=== PATIENT | male | born 1955 | race Caucasian/White ===

== ENCOUNTER → 2020-11-01 15:56 | Outpatient (CLI) | payer MEDICARE, SELFPAY ==
[2020-11-01 17:34] LABS: Basophils % 0.5 % (0.1-2.0); Eosinophils # 0.2 K/mm3 (0.0-0.4); Eosinophils % 2.5 % (0.1-12.0); Hematocrit 41.7 % (42.0-52.0); Hemoglobin 13.5 g/dL (14.1-18.0); Lymphocytes # 2.2 K/mm3 (0.7-4.5); Lymphocytes % 32.1 % (10-50); Mean Corpuscular HGB Conc 32.4 g/dL (31.8-35.4); Mean Corpuscular Hemoglobin 31.1 pg (27.0-31.2); Mean Platelet Volume 8.5 fl (7.4-10.4); Monocytes # 0.6 K/mm3 (0.1-1.0); Monocytes % 9.1 % (1.7-9.3); Neutrophils # 3.9 K/mm3 (1.8-7.8); Neutrophils % 55.8 % (37.0-80.0); Platelet Count 415 K/mm3 (142-424); Red Blood Count 4.34 M/mm3 (4.60-6.20); Red Cell Distribution Width 12.9 % (11.5-17.5)
[2020-11-01 17:43] LABS: Chloride 104 mmol/L (98-107); Sodium 141 mmol/L (136-145)
[2020-11-01 17:44] LABS: Potassium 3.9 mmoL/L (3.5-5.1)
[2020-11-01 17:46] LABS: Alanine Aminotransferase 35 U/L (12-78); Albumin Level 4.3 g/dl (3.5-5.0); Albumin/Globulin Ratio 1.2 (1.1-1.8); Alkaline Phosphatase 59 U/L (38-126); Anion Gap 14.9 mEq/L (5-15); Aspartate Amino Transferase 40 U/L (17-59); Bilirubin,Total 0.4 mg/dl (0.2-1.3); Blood Urea Nitrogen 27 mg/dl (9-20); Carbon Dioxide 26 mmol/L (22.0-30.0); Estimated Glomerular Filt Rate 47 ml/min (>60); GFR (African American) 57 ML/MIN (>60); Globulin 3.7 g/dL (1.3-3.2)
[2020-11-01 17:47] LABS: Calcium 9.9 mg/dl (8.4-10.2); Glucose 129 mg/dl (74-100)
[2020-11-01 18:05] LABS: Coronavirus 19 IgG Antibody Positive (Negative); Coronavirus 19 IgM Antibody Negative (Negative)
== END ==
PROVIDERS: PCP Internal Medicine Adolescent Medicine; Visit Provider Internal Medicine Adolescent Medicine
DX: Z20.828 Contact with and (suspected) exposure to other viral communicable diseases (principal); Z86.19 Personal history of other infectious and parasitic diseases
CPT/HCPCS: 36415; 80053; 85025; 86328; U0003; U0004

== ENCOUNTER 2022-04-04 13:35 | Emergency (ER) | payer MEDICARE, SELFPAY ==
--- NOTE | 2022-04-04 13:50 | HMH.EDUTC ---
[facility] [place] Disposition Clinical Impression: Viral syndrome, Pharyngitis Disposition: Home, Self-Care Condition on Discharge: Good Instructions: DI for Pharyngitis/Tonsillopharyngitis -- Adult, DI for Viral Syndrome Additional Instructions: Drink plenty of fluids. Take tylenol or ibuprofen for pain or fever. Take the medications as directed. Follow up with your regular doctor. GO TO THE ER FOR ANY WORSENING SYMPTOMS Prescriptions: Amoxicillin [Amoxicillin 875MG Tab] 875 mg PO Q12H #20 tab Transmission Status: Received by [facility] Benzonatate [Benzonatate 100mg cap] 100 mg PO TIDP PRN #30 cap PRN Reason: Cough Transmission Status: Received by [facility] predniSONE [Prednisone 20mg Tab] 20 mg PO BID 3 Days #6 tab Transmission Status: Received by [facility] Referrals: Darius Ken MD [Primary Care Provider] - Time of Disposition: 14:10 Medical Decision Making - Medical Records Medical records reviewed: No: I reviewed the patient's medical records. - Matt Inquiry Pt receiving controlled substance: No Vital Signs: 04/04/22 13:54 04/04/22 14:14 Temperature 100.0 F H 99.9 F H Temperature Source Oral Oral Pulse Rate 83 Pulse Rate [Left Radial] 82 Respiratory Rate 19 19 Blood Pressure 115/75 Blood Pressure [Right Arm] 101/61 L Blood Pressure Mean [Right Arm] 74 02 Sat by Pulse Oximetry 95 - Lab Data Lab results reviewed: Yes: I reviewed the patient's lab results. Lab Results 04/04/22 13:52: Group A Strep Rapid Negative 04/04/22 13:52: Influenza Type A Ag Negative, Influenza Type B Ag Negative Orders (Tests/Meds): ORDERS Category Date Time Status Covid-19 Nasal PCR ([facility]) Routine Lab 04/04/22 14:18 Received Upper Respiratory Panel, PCR Stat Lab 04/04/22 14:18 Received Strep Screen Confirmation Stat Micro 04/04/22 13:52 Received [facility] [place] HPI - General Stated complaint: sore throat and body aches Time Seen by Provider: 04/04/22 13:50 - History of Present Illness Provider Complaint: He states that he has had a sore throat and body aches for the past 2 days. He was exposed to strep throat last week by his grand daughter having it. - Related Data Previous Rx's Medication Instructions Recorded Amoxicillin [Amoxicillin 875MG 875 mg PO Q12H #20 tab 04/04/22 Tab] Benzonatate [Benzonatate 100mg 100 mg PO TIDP PRN #30 cap 04/04/22 cap] predniSONE [Prednisone 20mg 20 mg PO BID 3 Days #6 tab 04/04/22 Tab] Allergies Allergy/AdvReac Type Severity Reaction Status Date / Time No Known Allergies Allergy Verified 04/04/22 13:59 [facility] History - Hepatitis A Screen Attestation statement:: This patient has been screened for Hepatitis A risk factors. I have reviewed the patient's past medical history: Yes ROS Obtained: Yes All systems reviewed & no additional complaints - Constitutional Constitutional: Reports body ache, Reports chills, Denies fever(s), Reports poor appetite, Reports malaise - Eyes Eyes: Denies eye discharge - ENT Ears, Nose, Mouth, and Throat: Reports as per HPI - Cardiovascular Cardiovascular: Denies chest pain - Respiratory Respiratory: Denies chest congestion, Denies cough, Denies dyspnea, Denies stridor, Denies wheezing - Gastrointestinal Gastrointestingal: Denies: abdominal pain, diarrhea, nausea, vomiting - Musculoskeletal Musculoskeletal: Denies joint pain - Integumentary/Breasts Skin/Breast: Denies rash Physical Exam - General General appearance: alert, in no apparent distress - Head Head exam: atraumatic, normocephalic, normal inspection - Eye Eye exam: Present: normal appearance, PERRL, EOMI - ENT ENT exam: Present: mucous membranes moist, normal external ear exam - Expanded ENT Exam TM/Canal exam: Bilateral TM: erythema, bulging Nose exam: Absent: sinus tenderness Nasal speculum exam: Bilateral: normal Th
[2022-04-04 13:54] VITALS: BP 101/61; PULSE 82; RESP 19; TEMP 37.8; O2SAT 95; BMI 25.7
[2022-04-04 14:02] LABS: UTC Influenza A Antigen Negative (Negative); UTC Influenza B Antigen Negative (Negative)
[2022-04-04 14:06] LABS: Strep Scrn Group A (Rapid) Negative (Negative)
[2022-04-04 14:14] VITALS: BP 115/75; PULSE 83; RESP 19; TEMP 37.7
[2022-04-04 14:40] LABS: Adenovirus,PCR Not Detected (NotDetected); Bordetella Pertussis Not Detected (NotDetected); Chlamydophila Pneumoniae, PCR Not Detected (NotDetected); Coronavirus 229E Not Detected (NotDetected); Coronavirus NL63 Not Detected (NotDetected); Coronavirus OC43 Not Detected (NotDetected); Coronovirus HKU1,PCR Not Detected (NotDetected); Human Metapneumovirus Not Detected (NotDetected); Influenza A, PCR Not Detected (NotDetected); Influenza AH1, 2009 Not Detected (NotDetected); Influenza AH1, PCR Not Detected (NotDetected); Influenza AH3,PCR Not Detected (NotDetected); Influenza B, PCR Not Detected (NotDetected); Mycoplasma Pneumoniae, PCR Not Detected (NotDetected); Parainfluenza 1, PCR Not Detected (NotDetected); Parainfluenza 2, PCR Not Detected (NotDetected); Parainfluenza 3, PCR Not Detected (NotDetected); Parainfluenza 4, PCR Not Detected (NotDetected); Respiratory Syncytial Virus Not Detected (NotDetected); Rhinovirus/Enterovirus Not Detected (NotDetected)
== END 2022-04-04 14:20 | disposition home or self-care (01) ==
PROVIDERS: Emergency Provider Nurse Practitioner Family; PCP Internal Medicine Adolescent Medicine
DX: U07.1 COVID-19 (principal); J02.9 Acute pharyngitis, unspecified; B34.9 Viral infection, unspecified; M79.10 Myalgia, unspecified site
CPT/HCPCS: 87430; 87486; 87581; 87632; 87798; 87804; 99213; C9803; G0463; U0003; U0005

== ENCOUNTER 2024-01-24 09:37 | Emergency (ER) | payer MEDICARE, SELFPAY ==
[2024-01-24 10:15] VITALS: BP 113/68; PULSE 57; RESP 22; TEMP 36.8; O2SAT 95; BMI 27.4
--- NOTE | 2024-01-24 10:36 | EXP.UTC ---
Discharge Plan Disposition Patient Disposition: Home, Self-Care Prescriptions Prescriptions: No Action bisoprolol fumarate 5 mg tablet 5 mg PO DAILY rosuvastatin 10 mg tablet 10 mg PO DAILY alfuzosin 10 mg tablet extended release 24 hr 10 mg PO DAILY Referrals Follow up/Referrals: Darius Ken MD [Primary Care Provider] - See instructions Activity Restrictions/Add. Instructions Additional Instructions/Restrictions: No sign of a bacterial infection. Likely viral. Viruses can take 7-14 days to run their course. Nasal saline and bulb syringe or nose Anika to remove nasal drainage to help with nasal congestion. Hard to eat, drink, sleep with nasal congestion so important to keep this cleaned out. Monitor temp. Tylenol or Motrin as needed for pain or fever Encourage fluids, water, Gatorade, Powerade, Pedialyte if infant/toddler/child Warm salt water gargles Warm fluids Sore throat lozenges Sleep elevated Humidifier/vaporizer Follow-up immediately for new or worsening symptoms or no noticeable improvement over the next 48-72 hours. Clinical Impressions Clinical Impression: Upper respiratory disease Instructions Patient Instructions: DI for Viral Upper Respiratory Infection -- Adult Discharge ED Provider: Clarissa ([facility])Lina [facility] HPI General Stated complaint: congestion, ear pain Mode of Arrival: Ambulatory Source of Information: Patient Limitations: No Limitations Time Seen by Provider: 01/24/24 10:36 Description of Symptoms (Recalled from Triage Doc. by RN): PATIENT C/O HOARSENESS, BODY ACHES, CONGESTION AND SORE THROAT X 3 DAYS HEENT Symptoms (Recalled from RN notes): Yes Resp Symptoms (Recalled from RN notes): No Skin Symptoms (Recalled from RN notes): No MS Symptoms (Recalled from RN notes): No Functional Status (Recalled from RN notes): WNL History of Present Illness Provider Complaint: 68 yrold male presents for hoarseness, sore throat, nasal congestion and body aches for 3 days after receiving the rsv vaccine on , denies fever Related Data Home Medications Medication Instructions Recorded Confirmed alfuzosin 10 mg tablet,extended 10 mg PO DAILY 01/24/24 01/24/24 release 24 hr bisoprolol fumarate 5 mg tablet 5 mg PO DAILY 01/24/24 01/24/24 rosuvastatin 10 mg tablet 10 mg PO DAILY 01/24/24 01/24/24 Allergies Allergy/AdvReac Type Severity Reaction Status Date / Time No Known Allergies Allergy Verified 04/04/22 13:59 Worker's Comp Is this a Worker's Comp case?: No [facility] Disclaimer: The information contained in this section may have been updated after the patient was seen, as this information can be updated by other users. 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) Smoking Status: Never smoker alcohol intake: never current occupational status: retired Travel in the last 8 weeks: None ROS Obtained: Yes All systems reviewed & no additional complaints except as documented Constitutional Constitutional: Reports system reviewed and no additional complaints, except as documented, Reports as per HPI, Reports body ache, Reports chills and Denies fever(s) Eyes Eyes: Reports system reviewed and no additional complaints, except as documented and Reports as per HPI ENT Ears, Nose, Mouth, and Throat: Reports system reviewed and no additional complaints, except as documented, Reports as per HPI, Reports nasal congestion, Reports nasal discharge, Reports sinus pain, Reports sinus pressure and Reports sore throat Cardiovascular Cardiovascular: Reports system reviewed and no additional complaints, except as documented Respiratory Respiratory: Reports system reviewed and no additional complaints, except as documented Gastrointestinal Gastrointestingal: Reports system reviewed and no additional complaints, except as documented Integumentary/Breasts Skin/Breast: Reports system reviewed and no additional complaints, except as documented Neurologic Neurologic: Reports system reviewed and no additional complaints, except as documented Endocrine Endocrine: Reports system reviewed and no additional complaints, except as documented Allergic/Immunologic Allergic/Immunologic: Reports system reviewed and no additional complaints, except as documented Physical Exam General General appearance: alert Head Head exam: atraumatic and normocephalic Eye Eye exam: Present normal appearance ENT ENT exam: Present normal exam, normal oropharynx, mucous membranes moist and TM's normal bilaterally Respiratory Respiratory exam: Present normal lung sounds bilaterally Cardiovascular Cardiovascular exam: Present regular rate and normal rhythm Neurological Exam Neurological exam: Present alert and oriented X3 Skin Skin exam: Present warm and intact Medical Decision Making Medical Records Medical records reviewed: Yes I reviewed the patient's medical records. Matt Inquiry Pt receiving controlled substance: No Matt was queried for this patient: No Vital Signs: 01/24/24 10:15 Temperature 98.3 F Temperature Source Oral Pulse Rate [Right] 57 L Respiratory Rate 22 Blood Pressure [Left Arm] 113/68 Blood Pressure Mean [Left Arm] 83 02 Sat by Pulse Oximetry 95 Oxygen Delivery Method Room Air Lab Data Lab results reviewed: Yes I reviewed the patient's lab results.
[2024-01-24 10:40] VITALS: BP 113/68; PULSE 57; RESP 22; TEMP 36.8; O2SAT 95
[2024-01-24 10:46] LABS: UTC Strep Screen (Rapid) Negative (Negative)
[2024-01-24 10:57] LABS: Adenovirus,PCR Not Detected (NotDetected); Coronavirus 19, PCR Not Detected (NotDetected); Coronavirus 229E Not Detected (NotDetected); Coronavirus NL63 Not Detected (NotDetected); Coronavirus OC43 Not Detected (NotDetected); Coronovirus HKU1,PCR Not Detected (NotDetected); Human Metapneumovirus Not Detected (NotDetected); Influenza A, PCR Not Detected (NotDetected); Influenza AH1, 2009 Not Detected (NotDetected); Influenza AH1, PCR Not Detected (NotDetected); Influenza AH3,PCR Not Detected (NotDetected); Influenza B, PCR Not Detected (NotDetected); Parainfluenza 1, PCR Not Detected (NotDetected); Parainfluenza 2, PCR Not Detected (NotDetected); Parainfluenza 3, PCR Not Detected (NotDetected); Parainfluenza 4, PCR Not Detected (NotDetected); Respiratory Syncytial Virus Not Detected (NotDetected); Rhinovirus/Enterovirus Not Detected (NotDetected)
== END 2024-01-24 10:44 | disposition home or self-care (01) ==
PROVIDERS: Emergency Provider Nurse Practitioner Family; PCP Internal Medicine Adolescent Medicine
DX: J06.9 Acute upper respiratory infection, unspecified (principal); J02.9 Acute pharyngitis, unspecified; R09.81 Nasal congestion; E78.5 Hyperlipidemia, unspecified; I10 Essential (primary) hypertension
CPT/HCPCS: 87632; 87635; 87880; 99212; 99214; G0463

== ENCOUNTER 2024-05-11 10:22 | Outpatient (POV) | payer MEDICARE, SELFPAY | END 2024-05-11 23:59 | disposition home or self-care (01) | LOC: SC 10:22 | PROVIDERS: PCP Internal Medicine Adolescent Medicine; Visit Provider Dermatology | DX: Z00.00 Encounter for general adult medical examination without abnormal findings (principal) ==

== ENCOUNTER 2024-12-28 12:25 | Outpatient (CLI) | payer MEDICARE, SELFPAY ==
--- NOTE | 2024-12-28 12:49 | US_ITS ---
FINAL REPORT TECHNIQUE: Ultrasound images of the kidneys and bladder were obtained. CLINICAL HISTORY: STAGE 3 CHRONIC KIDNEY DISEASE FINDINGS: The right kidney measures 11.2cm in length. It is normal in echogenicity. There is no hydronephrosis. There is a 1 cm cortical cyst. The left kidney measures 10.9 cm in length. It is normal in echogenicity. There is no hydronephrosis. The urinary bladder is unremarkable. IMPRESSION: Right renal cyst. Reviewed, Interpreted and Dictated by Arlyn Fabian MD Transcribed by Darleen Batres Authenticated and [facility]
[2024-12-28 12:58] LABS: Hematocrit 42.9 % (42.0-52.0); Hemoglobin 13.9 g/dL (14.1-18.0); Mean Corpuscular HGB Conc 32.4 g/dL (31.8-35.4); Mean Corpuscular Hemoglobin 30.2 pg (27.0-31.2); Mean Corpuscular Volume 93.3 fl (80-94); Platelet Count 293 K/mm3 (142-424); Red Cell Distribution Width 12.4 % (11.5-17.5); White Blood Count 7.3 K/mm3 (4.8-10.8)
[2024-12-28 13:23] LABS: Albumin Level 4.4 g/dl (3.5-5.0); Anion Gap 8.7 mEq/L (5-15); Blood Urea Nitrogen 26 mg/dl (9-20); Calcium 9.9 mg/dl (8.4-10.2); Carbon Dioxide 28 mmol/L (22.0-30.0); Chloride 107 mmol/L (98-107); Estimated Glomerular Filt Rate 55 ml/min (>60); GFR (African American) 66 ML/MIN (>60); Glucose 111 mg/dl (74-100); Phosphorous 3.5 mg/dl (2.5-4.5); Potassium 4.7 mmoL/L (3.5-5.1); Sodium 139 mmol/L (136-145)
[2024-12-28 13:35] LABS: Intact Parathyroid Hormone 41.7 pg/mL (7.5-53.5)
[2024-12-28 13:41] LABS: 25-OH Vitamin D, Total 41.5 ng/mL (30-100)
[2024-12-28 14:23] LABS: Microalbumin/Creatinine Ratio 17.4
[2024-12-28 14:33] LABS: Creatinine,Urine Random 263 mg/dL (Not Estab.)
== END 2024-12-28 23:59 | disposition home or self-care (01) ==
LOC: RAD 12:26
PROVIDERS: PCP Internal Medicine Adolescent Medicine; Visit Provider Internal Medicine Nephrology
DX: N18.31 Chronic kidney disease, stage 3a (principal); N28.1 Cyst of kidney, acquired
CPT/HCPCS: 36415; 76770; 80069; 82043; 82306; 82570; 83970; 84156; 85027

== ENCOUNTER 2025-06-17 08:16 | Day surgery (SDC) | payer MEDICARE, SELFPAY ==
[2025-06-16 11:09] VITALS: BMI 26.7
--- NOTE | 2025-06-17 07:53 | P.HP_ITS ---
HPI HPI HPI: Patient presents for colonoscopy. He is a 69-year-old male whom I have seen in the past for laparoscopic appendectomy in 2017. He is referred now by Dr. Darius Ken's office for upper endoscopy. He states that he has had numerous symptoms. He has had symptoms of some dyspepsia and possibly GERD for quite some time usually treated [id number] with Mylanta or Pepto-Bismol. However, recently over about the past month his symptoms have been somewhat refractory to this. He also describes overactive stomach with increased burping and gurgling sensation. He states that he has some dysphagia and feels like food gets stuck but there is likely no food present. No particularly worse gay ds. PFSH [facility] Disclaimer: The information contained in this section may have been updated after the patient was seen, as this information can be updated by other users. Medical History Hyperlipidemia Hypertension Surgical History History of colonoscopy Family History (Updated 06/16/25 @ 11:08 by Ariadna Paz RN) No significant family history Social History (Updated 06/16/25 @ 11:08 by Ariadna Paz RN) Smoking Status: Never smoker alcohol intake: never current occupational status: retired Travel in the last 8 weeks?: None Other Medical History Have you received the Pneumonia Vaccine: Yes Review of Systems Review of Systems Review of systems:: pertinent systems reviewed and negative unless documented below Meds Home Medications and Allergies Home Medications ?Medication ?Instructions ?Recorded ?Confirmed ?Type alfuzosin 10 mg tablet,extended 10 mg PO DAILY 4 06/16/25 History release 24 hr bisoprolol fumarate 5 mg tablet 5 mg PO DAILY 01/24/24 06/16/25 History rosuvastatin 10 mg tablet 10 mg PO DAILY 01/24/2406/03 History New Prescriptions to Start Prescriptions: Allergies Allergy/AdvReac Type Severity Reaction Status Date / Time No Known Allergies Allergy Verified 06/02/25 09:27 Exam Data for Last 24 hours I & O for Last 24 hours: Intake & Output 06/14/25 06/15/25 06/16/25 06/17/25 11:59 11:59 11:59 11:59 Weight 203 lb Constitutional Constitutional: no acute distress *Routine HEENT Exam Head: Present normocephalic Eye: Present EOMI and PERRL ENT: Present mucous membranes moist *Routine Neck Exam Neck: Present supple; Absent lymphadenopathy *Routine Respiratory Exam Respiratory: Present CTA bilaterally *Routine Cardiovascular Exam Cardiovascular: Present RRR *Routine Abdominal Exam Abdominal: Present soft and normoactive bowel sounds; Absent tenderness *Routine Rectal Exam Rectal:: deferred *Routine Genitalia Exam Genitalia:: deferred *Routine Extremities Exam Extremities: Absent cyanosis, clubbing or edema *Routine Skin Exam Skin: Present warm; Absent rash *Routine Neurological Exam Neurological: Present alert and oriented X3 Assessment and Plan *Assessment and plan (1) Dysphagia: Status: Acute Category: Medical Code(s): R13.10 - Dysphagia, unspecified Plan Plan to proceed with upper endoscopy with biopsies and possible dilatation if indicated.
[2025-06-17 08:44] VITALS: BP 140/80; PULSE 54; RESP 18; TEMP 36.4; O2SAT 98
--- NOTE | 2025-06-17 09:05 | P.PNANES_ITS ---
[facility] Disclaimer: The information contained in this section may have been updated after the patient was seen, as this information can be updated by other users. Medical History Hyperlipidemia Hypertension Surgical History History of colonoscopy Family History Other No significant family history Social History Smoking Status: Never smoker alcohol intake: never substance use type: denies use current occupational status: retired Travel in the last 8 weeks?: None [facility] Anesthesia Checklist Patient Identification Patient Identification: Verbal (Name & ) Structural Data Admitted From: Home Planned Operative Procedure/s: egd Consent for Planned Operative Procedure(s) Verified: Yes NPO Status Verified Time NPO: 00:00 Airway Assessment Mallampati Score:: Class II C-Spine Mobility Assessed: Yes TMJ Mobility Assessed: Yes Dentition: Good Dentition Neurological Assessment Level of Consciousness: Awake, Alert and Appropriate Anesthesia Plan Anesthesia Risk discussed: Yes Anesthesia Plan: Verified ASA Class: II Anesthesia Type: MAC
--- NOTE | 2025-06-17 10:23 | HMH.SCOPE ---
Procedure: Date: 06/17/25 Patient Date of :: 1955 Procedure Performed:: Esophagogastroduodenoscopy with biopsies Indications:: Patient presents for upper endoscopy. He is a 69-year-old male whom I have seen in the past for laparoscopic appendectomy in 2017. He is referred now by Dr. Darius Ken's office for upper endoscopy. He states that he has had numerous symptoms. He has had symptoms of some dyspepsia and possibly GERD for quite some time usually treated [id number] with Mylanta or Pepto-Bismol. However, recently over about the past month his symptoms have been somewhat refractory to this. He also describes overactive stomach with increased burping and gurgling sensation. He states that he has some dysphagia and feels like food gets stuck but there is likely no food present. No particularly worse foods. Plan was made to proceed with upper endoscopy with biopsies and possible dilatation expeditiously. Performing Provider:: Mal Ibarra MD Referring Provider:: Darius Ken MD Sedation:: MAC sedation Procedure:: Patient history was obtained and appropriate physical examination was performed. Patient's medications and allergies were reviewed. Informed consent was obtained after explaining the benefits, alternatives, and risks of the procedure including, but not limited to, bleeding, perforation, missed lesions, and adverse reaction to anesthesia medications. Patient was transported to endoscopy procedure room. Patient was connected to monitoring devices. Throughout the procedure the patient's blood pressure, pulse, and oxygen saturations were monitored continuously. Patient identification and planned procedure were verified by the staff. Patient was positioned in lateral decubitus position. Olympus endoscope was inserted via the oropharynx. Esophagus was cannulated. There was some minor tortuosity. In the distal esophagus fungating circumferential mass was encountered at the GE junction extending approximately from 38 cm to 46 cm to the gastric cardia. This was fungating, friable, and easily bled. The endoscope was able to be advanced beyond this and into the gastric lumen. Retroflexion was performed which revealed no evidence of any appreciable hiatal hernia. He had some diffuse nonerosive moderate gastritis characterized by erythema and induration. There were multiple gastric polyps consistent with fundic gland polyps. Endoscope was advanced through the pylorus and into the proximal duodenum which appeared unremarkable. It was withdrawn into the gastric lumen. Gastric antral biopsy was obtained and biopsy was obtained of presumed fundic gland polyp. Endoscope was withdrawn into the distal esophagus. Multiple biopsies were obtained using cold biopsy forceps of the mass. This was friable, fungating, and easily bled. There appeared to be good hemostasis once the biopsies were performed. Endoscope was withdrawn. . Findings:: Circumferential fungating friable mass in the distal esophagus between 38 cm and 46 cm Diffuse moderate nonerosive gastropathy/gastritis Multiple fundic gland polyps Recommendations:: Follow-up on histopathology and treat appropriately Complications:: None immediately apparent Estimated blood obtained (mL): 3 Colonoscopy Component Colonoscopy Component Was a colonoscopy performed during today's procedure?: No
[2025-06-17 10:35] VITALS: BP 112/71; PULSE 58; RESP 16; TEMP 36.1; O2SAT 98
[2025-06-17 10:36] VITALS: BP 121/73; PULSE 59; RESP 18; O2SAT 98
[2025-06-17 10:46] VITALS: BP 113/42; PULSE 57; RESP 16; O2SAT 96
[2025-06-17 10:56] VITALS: BP 114/60; PULSE 55; RESP 18; TEMP 36.1; O2SAT 97
== END 2025-06-17 10:56 | disposition home or self-care (01) ==
PROVIDERS: PCP Internal Medicine Adolescent Medicine; Visit Provider Surgery
PROC: 0DJ08ZZ Inspection of Upper Intestinal Tract, Via Natural or Artificial Opening Endoscopic (ICD-10-PCS; CPT 43239; principal; 2025-06-17 09:30)
DX: C16.0 Malignant neoplasm of cardia (principal); K31.7 Polyp of stomach and duodenum; K29.70 Gastritis, unspecified, without bleeding; I10 Essential (primary) hypertension; E78.5 Hyperlipidemia, unspecified; Z79.899 Other long term (current) drug therapy
CPT/HCPCS: 43239; J2003; J2704

== ENCOUNTER 2025-08-13 04:55 | Emergency (ER) | payer MEDICARE, SELFPAY ==
--- OUTSIDE RECORDS SUMMARY | 2025-07-06 14:45 | XMS_ITS | Encounter Summary ---
Author Organization [facility] Address 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 Procedures PET/CT FDG Skull Base To Mid Thigh Kim Machado MD [address] [address] Phone: tel: fax: Referral ID Status Reason Start Date Expiration Date Visits Re quested Visits Authorized [id number] Closed 07/06/2025 01/05/2027 2 2 * Consultation (Routine) - Closed Specialty Diagnoses / Procedures Referred By Broderick olivares Referred To Contact Medical Oncology / Oncology Diagnoses 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 Kim Machado MD [address] [address] Phone: tel: fax: [facility] [address] [place] [address] Phone: tel: fax: Referral ID Status Reason Start Date Expiration Date V isits Requested Visits Authorized [id number] Closed Specialty Services Required 07/06/2025 01/05/2027 1 1 Reason for Visit * Reason Comments New Patient Encounter Details Date Type Department Care Team ([facility] st Contact Info) Description 07/06/2025 2:45 PM EDT Office Visit [facility] [address] [place] [address] Kim Machado MD [address] [place] [address] 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 [facility] Department of Surgery Section of Thoracic Surgery [...] elects to work with oncology services in [place] to unify aspects of surgical and medical [...] saw and evaluated the patient with the medical/WEIGHT COUNT OPERATOR/PA student. I discussed the case with the medical/WEIGHT COUNT OPERATOR/PA student and agree with the findings and [...] oncology at his request. Kim Marcano MD avionic technician Thoracic Surgery documented in this encounter Plan of Treatment Upcoming Encounters Date Type Department Care Team (Latest Contact Info) Description 08/18/2025 8:20 AM EDT Clinical Support [facility] [address] [place] [address] 08/18/2025 10:30 AM EDT Appointment [facility] [address] [place] [address] 08/20/2025 2:00 PM EDT Appointment [facility] [address] [place] [address] 09/01/2025 9:15 AM EDT Clinical Support [facility] [address] [place] [address] 09/01/2025 9:30 AM EDT Office Visit [facility] [address] [place] [address] Aristides Reina MD [address] [place] [address] 09/01/2025 11:00 AM EDT Appointment [facility] [address] [place] [address] 09/03/2025 10:30 AM EDT Appointment [facility] 2 [address] [place] [address] 09/15/2025 9:30 AM EST Appointment [facility] [address] [place] [address] 09/17/2025 9:00 AM EST Appointment [facility] [address] [place] [address] 10/05/2025 8:00 AM EST Appointment [facility] PET Scan [address] [place] [address] 10/05/2025 9:00 AM EST Appointment [facility] PET Scan [address] [place] [address] 10/05/2025 11:15 AM EST Office Visit [facility] [address] [facility] [place] [address] Kim Machado MD [address] [place] [address] 01/13/2026 12:00 PM EST Office Visit [facility] [address] [place] [address] Eros Mejia MD [address] [place] [address] Scheduled Referrals Name Type Priority [...] raised. PET/CT scanner: Nicol 550. PET/CT acquisition: [id number]-zng-[id number]. Standardized uptake value (SUV): Corrected for body weight only. CT: Low-dose, [id number], without intravenous contrast. TOTAL DLP (Dose Length [...] lytic or sclerotic lesions within the imaged [id number]. Multilevel degenerative changes. Procedure Note Quoc Pratt [...] raised. PET/CT scanner: Nicol 550. PET/CT acquisition: [id number]-jk-igs-thighs. Standardized uptake value (SUV): Corrected for body weight only. CT: Low-dose, [id number]-kvil, without intravenous contrast. TOTAL DLP (Dose Length [...] max 3.5 without definite large lymph nodes ([id number] image 450) No suspicious metabolically active pulmonary [...] difficult to evaluate because of under distention. ([id number] image 390). SUV max 29.7. Prostate gland [...] osseous lytic orsclerotic lesions within the imaged [id number]. Multilevel degenerative changes. IMPRESSION: *Intense radiotracer activity [...] documented as of this encounter Care Teams Social Service Worker Relationship Specialty Start Date End Date Darius Ken MD [address] [place] [address] PCP - General Internal Medicine 08/23/24 documented as of this encounter
--- OUTSIDE RECORDS SUMMARY | 2025-07-21 10:00 | XMS_ITS | Encounter Summary ---
Author Organization Healthcare Address [address] 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 Kim Machado MD [address] [facility] [address] [place] [phone] Phone: tel: fax: [facility] [address] [facility], [address]nd [place] [address] Phone: tel: fax: Referral ID Status Reason Start Date Expiration Date V isits Requested Visits Authorized [id number] Closed Specialty Services Required 07/06/2025 01/05/2027 1 1 Encounter Details Date Type Department Care Team (Latest Contact Info) Description 07/21/2025 10:00 AM EDT Office Visit [facility] [address] [place] [phone] Aristides Reina MD [address] [place], [place] [id number] 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) Social History Tobacco Use Types Packs/Day Years Used Date Smoking Tobacco: Never Smokeless Tobacco: Never Tobacco Cessation:Counseling Given: Not Answered Alcohol Use Standard Drinks/Week Comments Never 0 [...] Sign Reading Time Taken Comments Blood Pressure 130/78 07/21/2025 9:37 AM EDT Pulse 51 07/21/2025 9:37 AM EDT Temperature 36.6 C (97.9 F) 07/21/2025 9:37 AM EDT Respiratory Rate 16 07/21/2025 9:37 AM EDT Oxygen Saturation 96% 07/21/2025 9:37 AM EDT Inhaled Oxygen Concentration - - Weight 92.8 kg (204 lb 9.4 oz) 07/21/2025 9:37 A M EDT Height 185.4 cm (6' 1 ) 07/21/2025 9:37 AM EDT Body Mass Index 26.99 07/21/2025 9:37 AM EDT documented in this encounter Miscellaneous Notes * Progress Notes - Aristides Reina MD - 07/21/2025 10:00 AM EDT Images from the original note were not included. Oncology Clinic Initial Visit Patient Name: Justin Best Date of : 1955 Referring Physician:Kim Machado MD [address] [address] Encounter Date: 07/21/2025 Chief Complaint: Establish care regarding recently diagnosed GEJ adenocarcinoma History of present illness: Mr. Best is a 69-year-old male with a relevant past medical history of hypertension who presents to [facility] clinic today to establish care for recently diagnosed GE junction adenocarcinoma. According to patient, he has had a multiyear history of generalized upper gastrointestinal discomfort mainly inv olving diffuse, dull pain in his upper abdomen. Over the past several months, he endorses a globus sensation. The progression of his dysphagia prompted further workup with EGD on 06/17/2025 which was completed and notable for a circumferential fungating friable mass in the distal esophagus between 38and 46 cm with diffuse moderate nonerosive gastropathy/gastritis and multiple fundic gland polyps. 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 No H pylori identified. Fundic gland polyp appreciated. IHC negative for HER2/miladys. PD-L1 CPS less than 1. CLDN A18 positive. Loss of MLH1 and PMS2 nuclear immuno reaction (MLH1 promoter methylation study pending). Past Medical History: Reviewed by me; any relevant updates made in [facility]. Relevant history includes: Past Medical History[1] Oncologic History: Oncology History No history exists. Past Surgical History: Reviewed by me; any relevant updates made in [facility]. Relevant history includes: Surgical History[2] Family History: Reviewed by me; any relevant updates made in [facility]. Relevant history includes: Family History[3] Father with colon cancer Social History: Social History Socioeconomic History Marital status: Spouse name: Not on file Number of children: Not on file Years of education: Not on file Highest education level: Not on file Occupational History Not on file Tobacco Use Smoking status: Never Smokeless tobacco: Never Substance and Sexual Activity Alcohol use: Never Drug use: Never Sexual activity: Defer Other Topics Concern Not on file Social History Narrative Not on file Social Drivers of Health Financial Resource Strain: Not on file Food Insecurity: Not on file Transportation Needs: Not on file Physical Activity: Not on file Stress: Not on file Social Connections: Unknown (08/19/2023) Received from [facility] Family and Community Support Help with Day-to-Day Activities: Not on file Lonely or Isolated: Not on file Intimate Partner Violence: Unknown (08/19/2023) Received from [facility] Abuse Screen Unsafe at Home or Work/School: Not on file Feels Threatened by Someone?: Not on file Does Anyone Keep You from Contacting Others or Doint Things Outside the Home?: Not on file Physical Sign of Abuse Present: Not on file Housing Stability: Unknown (08/19/2023) Received from [facility] Housing Stability Current Living Arrangements: Not on file Potentially Unsafe Housing Conditions: Not on file Lives 45 minutes away Allergies reviewed in EMR; any changes noted in Epic. Medications Current Medications[4] Review of Systems: Review of Systems 14 point ROS negative besides as mentioned in HPI Objective There were no vitals filed for this visit. Physical Exam Gen: NAD, well appearing and nontoxic. Alert and conversant. Eyes: No scleral icterus, normal conjunctivae HENT: Hearing normal, dentition normal. Mucus membranes are moist. Neck: supple, normal ROM. Lymph: no cervical or supraclav lymphadenopathy. CV: RRR, no murmurs, no peripheral edema. Resp: effort normal, CTAB GI: Abdomen is soft, nondistended, and nontender. MSK: No clubbing or cyanosis. Normal muscle tone. Skin: Warm, dry, no rash, no erythema, not diaphoretic, no pallor Neuro: No gross neurologic deficits. Psych: A&O x3, mood and affect normal, judgment and insight appear normal. Labs, Imaging, Pathology: Reviewed in [facility] and/or Care everywhere, notable as discussed in Assessment and Plan. 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 No H pylori identified. Fundic gland polyp appreciated. IHC negative for HER2/miladys. PD-L1CPS less than 1. CLDN A18 positive. Loss of MLH1 and PMS2 nuclear immuno reaction (MLH1 promoter methylation study pending). PET/CT (Scheduled for 07/27/2025) Performance Status 0: Fully active, able to carry on all pre-disease performance without restriction Assessment and Plan Assessment/Plan Mr. Best is a 69-year-old male with a relevant past medical history of hypertension who presents to [facility] clinic for evaluation and management of recently diagnosed GE junction adenocarcinoma. Co-managed with Dr. Kim Marcano with thoracic surgery. 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 Pylori negative NGS pending Treatment: None to date Treatment related complications: NA Performance Status: ECO Plan: Discussed with patient the implication of his diagnosis including prognosis, available treatment modalities, role for possible surigcal intervention, and logistics of dewey(adjuvant) treatment and surveillance Staging PET/CT ordered for 07/27/2025 Based on PS, patient is medically fit for potential surgical intervention Will plan to initiate neoadjuvant Fluorouracil, leucovorin, oxaliplatin, docetaxel, and durvalumab (FLOT-D). Consent obtained at visit today. If there is no evidence of metastatic disease on PET/CT - Dosing and scheduling as follows: Durvalumab 1500 mg IV D1 5-FU 2600 mg/m^2 IV continuous over 24 hours on D1 and D15 Leucovorin 200 mg/m^2 IV on D1 and D15 Oxaliplatin 85 mg/m^2 on D1 and D15 Docetaxel 50 mg/m^2 on D1 and D15 Cycled every 28 days Will complete 2 cycles preoperatively Then plan for esophagectomy Then complete 2 cycles postoperatively Followed by Durvalumab 1500 mg IV on D1 every 4 weeks for 10 additional cycles Will refer to surgical oncology for chemoport insertion. Port planned for 07/29/2025 NGS to be sent from surgical path specimen to direct any targeted therapies Continue to follow with Dr. Marcano in thoracic surgery RTC prior to C1D15 if no metastatic disease on PET/CT or COURTNEY if metastatic disease for planning 2.) VTE risk assessment Khorana score at least 2 (gastric tumor): 2 points (intermediate risk) If pre-chemo PLT >350,000, Hg < 10, or WBC > 11,000 patient would be high-risk for VTE andmay benefit from prophylactic anticoagulation 3.) High risk for malnutrition Given location of patient's lesion and associated symptoms, patient is a high risk for calorie deficit and malnutrition Currently meeting caloric needs Plan: Will consult nutrition in the future if problems arise Discussed potential need for G-tube if unable to tolerate oral intake Encouraged patient to use dietary supplements (boost, ensure, etc) Clinical Rationale: Decision to add durvalumab to SOC FLOT for neoadjuvant GEJ adenocarcinoma has been established in the Perioperative Durvalumab in Gastric and GEJ Cancer AKA MATTERHOYAHAIRA trial published April 10 2025. A total of 474 participants were randomly assigned to the durvalumab group, and 474 to the placebo group (median follow-up, 31.5 months; interquartile range, 26.7 to 36.6). Two-year event-free survival (Paez-Darell estimate) was 67.4% among the participants in the durvalumab group and 58.5% among those in the placebo group (hazard ratio for event or , 0.71; 95% confidence interval [CI], 0.58to 0.86; P<0.001). Two- year overall survival was 75.7% in the durvalumab group and 70.4% in the placebo group (piecewise hazard ratio for during months 0 to 12, 0.99 [95% CI, 0.70 to 1.39], and during the period from month 12 onward, 0.67 [95% CI, 0.50 to 0.90]; P=0.03 by a stratified log-rank test [exceeding the significance threshold of P<0.0001]). The percentage of participants with a pathological complete response was 19.2% in the durvalumab group and 7.2% in the placebo group (relative risk, 2.69 [95% CI, 1.86 to 3.90]). Adverse events with a maximum grade of 3 or 4 were reported in 340 participants (71.6%) in the durvalumab group and in 334 (71.2%) in the placebo group. The percentage of participants with delayed surgery was 10.1% and 10.8%, respectively, and the percentage with delayed initiation of adjuvant treatment was 2.3% and 4.6%. Case discussed with Dr. Que Gentile, who was involved in the formulation of the plan above. Aristides Reina MD PGY-4 Fellow, Hematology/Oncology [facility] Pager: [phone] [1] Past Medical History: Diagnosis Date Blood urine 2023 Hypertension 1999 Kidney stone Skin cancer 2004 [2] Past Surgical History: Procedure Laterality Date APPENDECTOMY 2020 BACK SURGERY 2001 CHOLECYSTECTOMY 1985 GALLBLADDER SURGERY 1998 [3] Family History Problem Relation Name Age of Onset Cancer Father [4] Current Outpatient Medications: alfuzosin (Uroxatral) 10 MG 24 hr tablet, Take 1 tablet (10 mg) by mouth 1 (one) time each day., Disp: , Rfl: bisoprolol (Zebeta) 5 MG tablet, Take 1 tablet (5 mg) by mouth 1 (one) time each day. Patient states half a tablet daily., Disp: , Rfl: Famotidine (PEPCID PO), , Disp: , Rfl: Multiple Vitamin (multivitamin) capsule, Take 1 capsule by mouth 1 (one) time each day., Disp: , Rfl: rosuvastatin (Crestor) 10 MG tablet, Take 1 tablet (10 mg) by mouth 1 (one) time each day., Disp: ,Rfl: Cosigned by Que Gentile MD at 07/22/2025 9:09 AM EDT Associated attestation - Que Gentile MD - 07/22/2025 9:09 AM EDT I saw and evaluated the patient with the resident/fellow. I discussed the case with the resident/fellow and agree with the findings and plan as documented. * Progress Notes - Zuri Angeles PharmD - 07/21/2025 10:00 AM EDT Pharmacy Hematology/Oncology Patient Education Note I counseled the patient on their chemotherapy regimen, which was scheduled to start TBD after PET for final staging. The chemotherapy agents that this patient is scheduled to receive include: FLOT-D (Fluorouracil, Leucovorin, Oxaliplatin, Docetaxel, Durvalumab). I provided the patient with a written explanation of the drugs contained in the regimen and their expected side effects, toxicities, andadverse reactions, such as but not limited to myelosuppression, infection risk, nausea/vomiting, cold induced neuropathy, alopecia, edema, rash, diarrhea, pneumonitis, hepatitis, nephritis, fatigue and nausea/vomiting. I provided verbal explanation of the same material and provided methods for self- monitoring. I answered all questions that the patient and/or caregiver had. The patient and/or caregiver demonstrated understanding of the material, and wished to proceed with the treatment. Zuri Angeles PharmD, [facility] Clinical Oncology Pharmacist documented in this encounter Plan of Treatment Upcoming Encounters Date Type Department Care Team (Latest Contact Info) Description 08/18/2025 8:20 AM EDT Clinical Support [facility] Mult[facility] Oncology [facility] [address] [place] [phone] 08/18/2025 10:30 AM EDT Appointment [facility] [address] [place] [address] 08/20/2025 2:00 PM EDT Appointment [facility] [address] [place] [address] 09/01/2025 9:15 AM EDT Clinical Support [facility] [address] [place] [address] 09/01/2025 9:30 AM EDT Office Visit [facility] [address] [place] [address] Aristides Reina MD [address] [place] [address] 09/01/2025 11:00 AM EDT Appointment [facility] [address] [place] [address] 09/03/2025 10:30 AM EDT Appointment [facility] 2 [address] [place] [address] 09/15/2025 9:30 AM EST Appointment [facility] [address] [place] [address] 09/17/2025 9:00 AM EST Appointment [facility] [address] [place] [address] 10/05/2025 8:00 AM EST Appointment [facility] PET Scan [address] [place] [address] 10/05/2025 9:00 AM EST Appointment [facility] PET Scan [address] [place] [address] 10/05/2025 11:15 AM EST Office Visit [facility] [address] [facility]nd [place] [address] Kim Machado MD [address] [place] [address] 01/13/2026 12:00 PM EST Office Visit [facility] [address] [place] [address] Eros Mejia MD [address] [place] [phone] Scheduled Orders Name Type Priority Associated Diagnoses Orde r Schedule CBC and differential Lab Routine Adenocarcinoma of gastroesophageal junction (CMS/HCC) Expected: 08/18/2025, Expires: 08/18/2026 Comprehensive metabolic panel Lab Routine Adenocarcinoma of gastroesophageal junction (CMS/HCC) Expected: 08/18/2025, Expires: 08/18/2026 documented as of this encounter Procedures Procedure Name Priority Date/Time Associated Diagnosis Comments APTT Routine 07/21/2025 10:45 AM EDT Adenocarcinoma of gastroesophageal junction (CMS/HCC) PROTHROMBIN TIME(PT) / INR Routine 07/21/2025 10:45 AM EDT Adenocarcinoma of gastroesophageal junction (CMS/HCC) CBC WITH AUTO DIFFERENTIAL Routine 07/21/2025 10:45 AM EDT Adenocarcinoma of gastroesophageal junction (CMS/HCC) MAGNESIUM, PLASMA STAT 07/21/2025 10: 45 AM EDT Adenocarcinoma of gastroesophageal junction (CMS/HCC) COMPREHENSIVE METABOLIC PANEL, PLASMA Routine 07/21/2025 10:45 AM EDT Adenocarcinoma of gastroesophageal junction (CMS/HCC) documented in this encounter Results * (ABNORMAL) TSH Reflex FT4 (08/03/2025 8:02 AM EDT) Thyroid Stimulating Hormone, Plasma 0.34(L) 0.40 - 4.20 uIU/mL 08/03/2025 8:51 AM EDT [facility] Blood Blood sample taken from central line / Unknown (Port) Long-term Catheter / Unknown 08/03/2025 8:02 AM EDT 08/03/2025 8:13 AM EDT us Que Gentile MD LAB BLOOD ORDERABLES Final R esult [facility] [address] [place] [address] * (ABNORMAL) Comprehensive metabolic panel (08/03/2025 8:02 AM EDT) Glucose, Plasma 143(H) 74 - 99 mg/dL 08/03/2025 8:51 AM EDT [facility] BUN, Plasma 22 8 - 23 mg/dL 08/03/2025 8:51 AM EDT [facility] Creatinine, Plasma 1.23(H) 0.70 - 1.20 mg/dL 08/03/2025 8:51 AM EDT [facility] BUN/Creatinine Ratio 18 08/03/2025 8:51 AM EDT [facility] Sodium, Plasma 139 136 - 145 mmol/L 08/03/2025 8:51 AM EDT [facility] Potassium, Plasma 4.0 3.6 - 4.9 mmol/L 08/03/2025 8:51 AM EDT [facility] Chloride, Plasma 106 97 - 107 mmol/L 08/03/2025 8:51 AM EDT [facility] CO2, Plasma 21(L) 22 - 29 mmol/L 08/03/2025 8:51 AM EDT [facility] Anion Gap 12 6 - 16 mmol/L 08/03/2025 8:51 AM EDT [facility] Total Calcium, Plasma 9.5 8.9 - 10.2 mg/dL 08/03/2025 8:51 AM EDT [facility] Total Protein 7.1 6.3 - 7.9 g/dL 08/03/2025 8:51 AM EDT [facility] Albumin, Plasma 3.9 3.5 - 5.2 g/dL 08/03/2025 8:51 AM EDT [facility] AST, Plasma 20 10 - 50 U/L 08/03/2025 8:51 AM EDT [facility] ALT, Plasma 26 10 - 50 U/L 08/03/2025 8:51 AM EDT [facility] Alkaline Phosphatase, Plasma 63 40 - 115 U/L 08/03/2025 8:51 AM EDT [facility] Total Bilirubin, Plasma 0.4 0.2 - 1.1 mg/dL 08/03/2025 8:51 AM EDT [facility] eGFRcr 63.2 mL/min/1.7 3m*2 08/03/2025 8:51 AM EDT [facility] Comment:Reported eGFRcr in m L/min/1.73m2 is based the CKD-EPI 2020 equation that does not use a race coefficient. Blood Blood sample taken from central line / Unknown (Port) Long-term Catheter / Unknown 08/03/2025 8:02 AM EDT 08/03/2025 8:13 AM EDT us Que Gentile MD LAB BLOOD ORDERABLES Final R esult [facility] [address] [place] [address] * (ABNORMAL) CBC and differential (08/03/2025 8:02 AM EDT) WBC Count 12.63(H) 3.70 - 10.30 10*3/uL LAB HEMATOLOGY METHOD 08/03/2025 8:29 AM EDT [facility] RBC Count 4.24(L) 4.60 - 6.10 10*6/uL LAB HEMATOLOGY METHOD 08/03/2025 8:29 AM EDT [facility] HGB 13.0(L) 13.7 - 17.5 g/dL LAB HEMATOLOGY METHOD 08/03/2025 8:29 AM EDT [facility] HCT 38.7(L) 40.0 - 51.0 % LAB HEMATOLOGY METHOD 08/03/2025 8:29 AM EDT [facility] Platelet Count 326 155 - 369 10*3/uL LAB HEMATOLOGY METHOD 08/03/2025 8:29 AM EDT [facility] MCV 91 79 - 98 fL LAB HEMATOLOGY METHOD 08/03/2025 8:29 AM EDT [facility] MCH 30.7 26.0 - 32.0 pg LAB HEMATOLOGY METHOD 08/03/2025 8:29 AM EDT [facility] MCHC 33.6 30.7 - 35.5 g/dL LAB HEMATOLOGY METHOD 08/03/2025 8:29 AM EDT [facility] RDW 11.9 11.5 - 14.5 % LAB HEMATOLOGY METHOD 08/03/2025 8:29 AM EDT [facility] MPV 10.6 8.8 - 12.5 fL LAB HEMATOLOGY METHOD 08/03/2025 8:29 AM EDT [facility] nRBC 0.0 <=0.0 per 100 WBCs LAB HEMATOLOGY METHOD 08/03/2025 8:29 AM EDT [facility] Differential Type Automated LAB HEMATOLOGY METHOD 08/03/2025 8:29 AM EDT [facility] Neutrophils % 92 % LAB HEMATOLOGY METHOD 08/03/2025 8:29 AM EDT [facility] Lymphocytes % 6 % LAB HEMATOLOGY METHOD 08/03/2025 8:29 AM EDT [facility] Monocytes % 2 % LAB HEMATOLOGY METHOD 08/03/2025 8:29 AM EDT [facility] Eosinophils % 0 % LAB HEMATOLOGY METHOD 08/03/2025 8:29 AM EDT [facility] Basophils % 0 % LAB HEMATOLOGY METHOD 08/03/2025 8:29 AM EDT [facility] Immature Granulocytes % 0 % LAB HEMATOLOGY METHOD 08/03/2025 8:29 AM EDT [facility] Neutrophils Absolute 11.57(H) 1.60 - 6.10 10*3/uL LAB HEMATOLOGY METHOD 08/03/2025 8:29 AM EDT [facility] Lymphocytes Absolute 0.71(L) 1.20 - 3.90 10*3/uL LAB HEMATOLOGY METHOD 08/03/2025 8:29 AM EDT [facility] Monocytes Absolute 0.30 0.30 - 0.90 10*3/uL LAB HEMATOLOGY METHOD 08/03/2025 8:29 AM EDT [facility] Eosinophils Absolute 0.00 0.00 - 0.50 10*3/uL LAB HEMATOLOGY METHOD 08/03/2025 8:29 AM EDT [facility] Basophils Absolute 0.01 0.00 - 0.10 10*3/uL LAB HEMATOLOGY METHOD 08/03/2025 8:29 AM EDT [facility] Immature Granulocytes Absolute 0.04 0.00 - 0.06 10*3/uL LAB HEMATOLOGY METHOD 08/03/2025 8:29 AM EDT [facility] Blood Blood sample taken from central line / Unknown (Port) Long-term Catheter / Unknown 08/03/2025 8:02 AM EDT 08/03/2025 8:17 AM EDT Narrative [facility] - 08/03/2025 8:29 AM EDT Therapeutic decision making should be based on absolute values, rather than percentages. us Que Gentile MD LAB BLOOD ORDERABLES Final R esult Performing Organization Address City/[facility]/ZIP Co de Phone Number [facility] [address] [place] [address] * APTT (07/21/2025 10:45 AM EDT) aPTT 29 25 - 35 sec LAB COAGULATION METHOD 07/21/2025 11:28 AM EDT [facility] Blood Venous blood specimen / Unknown Venipuncture / Unknown 07/21/2025 10:45 AM EDT 07/21/2025 11:10 AM EDT us Rachel Jonas APRN LAB BLOOD ORDERABLES Final R esult Performing Organization Address City/[facility] Co de Phone Number [facility] [address] [place] [address] * Prothrombin Time/INR (07/21/2025 10:45 AM EDT) Prothrombin Time 14.2 12.0 - 14.3 sec LAB COAGULATION METHOD 07/21/2025 11:28 AM EDT [facility] INR 1.1 0.9 - 1.1 LAB COAGULATION METHOD 07/21/2025 11:28 AM EDT [facility] Blood Venous blood specimen / Unknown Venipuncture / Unknown 07/21/2025 10:45 AM EDT 07/21/2025 11:10 AM EDT Narrative [facility] - 07/21/2025 11:28 AM EDT OPTIMAL INR RANGES FOR PATIENT ON ORAL ANTICOAGULANT THERAPY Prevention of venous thromboembolism INR 2.0 to 3.0 In patients with heart disease: Atrial fibrillation INR 2.0 to 3.0 Valvular heart disease INR 2.0 to 3.0 Tissue heart valves INR 2.0 to 3.0 Mechanical prosthetic valves INR 2.5 to 3.5 Prevention of recurrent VA INR 2.5 to 3.5 Rachel Jonas ENTRY LEVEL RECRUITER LAB BLOOD ORDERABLES Final R esult [facility] [address] [place] [address] * (ABNORMAL) CBC and Differential (07/21/2025 10:45 AM EDT) WBC Count 6.53 3.70 - 10.30 10*3/uL LAB HEMATOLOGY METHOD 07/21/2025 11:23 AM EDT [facility] RBC Count 4.40(L) 4.60 - 6.10 10*6/uL LAB HEMATOLOGY METHOD 07/21/2025 11:23 AM EDT [facility] HGB 13.4(L) 13.7 - 17.5 g/dL LAB HEMATOLOGY METHOD 07/21/2025 11:23 AM EDT [facility] HCT 40.9 40.0 - 51.0 % LAB HEMATOLOGY METHOD 07/21/2025 11:23 AM EDT [facility] Platelet Count 336 155 - 369 10*3/uL LAB HEMATOLOGY METHOD 07/21/2025 11:23 AM EDT [facility] MCV 93 79 - 98 fL LAB HEMATOLOGY METHOD 07/21/2025 11:23 AM EDT [facility] MCH 30.5 26.0 - 32.0 pg LAB HEMATOLOGY METHOD 07/21/2025 11:23 AM EDT [facility] MCHC 32.8 30.7 - 35.5 g/dL LAB HEMATOLOGY METHOD 07/21/2025 11:23 AM EDT [facility] RDW 11.9 11.5 - 14.5 % LAB HEMATOLOGY METHOD 07/21/2025 11:23 AM EDT [facility] MPV 10.4 8.8 - 12.5 fL LAB HEMATOLOGY METHOD 07/21/2025 11:23 AM EDT [facility] nRBC 0.0 <=0.0 per 100 WBCs LAB HEMATOLOGY METHOD 07/21/2025 11:23 AM EDT [facility] Differential Type Automated LAB HEMATOLOGY METHOD 07/21/2025 11:23 AM EDT [facility] Neutrophils % 65 % LAB HEMATOLOGY METHOD 07/21/2025 11:23 AM EDT [facility] Lymphocytes % 21 % LAB HEMATOLOGY METHOD 07/21/2025 11:23 AM EDT [facility] Monocytes % 11 % LAB HEMATOLOGY METHOD 07/21/2025 11:23 AM EDT [facility] Eosinophils % 2 % LAB HEMATOLOGY METHOD 07/21/2025 11:23 AM EDT [facility] Basophils % 0 % LAB HEMATOLOGY METHOD 07/21/2025 11:23 AM EDT [facility] Immature Granulocytes % 1 % LAB HEMATOLOGY METHOD 07/21/2025 11:23 AM EDT [facility] Neutrophils Absolute 4.25 1.60 - 6.10 10*3/uL LAB HEMATOLOGY METHOD 07/21/2025 11:23 AM EDT [facility] Lymphocytes Absolute 1.36 1.20 - 3.90 10*3/uL LAB HEMATOLOGY METHOD 07/21/2025 11:23 AM EDT [facility] Monocytes Absolute 0.73 0.30 - 0.90 10*3/uL LAB HEMATOLOGY METHOD 07/21/2025 11:23 AM EDT [facility] Eosinophils Absolute 0.14 0.00 - 0.50 10*3/uL LAB HEMATOLOGY METHOD 07/21/2025 11:23 AM EDT [facility] Basophils Absolute 0.02 0.00 - 0.10 10*3/uL LAB HEMATOLOGY METHOD 07/21/2025 11:23 AM EDT [facility] Immature Granulocytes Absolute 0.03 0.00 - 0.06 10*3/uL LAB HEMATOLOGY METHOD 07/21/2025 11:23 AM EDT [facility] Blood Venous blood specimen / Unknown Venipuncture / Unknown 07/21/2025 10:45 AM EDT 07/21/2025 11:12 AM EDT [facility] - 07/21/2025 11:23 AM EDT Therapeutic decision making should be based on absolute values, rather than percentages. us Rachel Jonas ENTRY LEVEL RECRUITER LAB BLOOD ORDERABLES Final R esult [facility] [address] [place] [address] * (ABNORMAL) Comprehensive Metabolic Panel, Plasma (07/21/2025 10:45 AM EDT) Glucose, Plasma 75 74 - 99 mg/dL 07/21/2025 11:40 AM EDT [facility] BUN, Plasma 23 8 - 23 mg/dL 07/21/2025 11:40 AM EDT [facility] Creatinine, Plasma 1.32(H) 0.70 - 1.20 mg/dL 07/21/2025 11:40 AM EDT [facility] BUN/Creatinine Ratio 17 07/21/2025 11:40 AM EDT [facility] Sodium, Plasma 139 136 - 145 mmol/L 07/21/2025 11:40 AM EDT [facility] Potassium, Plasma 4.9 3.6 - 4.9 mmol/L 07/21/2025 11:40 AM EDT [facility] Chloride, Plasma 104 97 - 107 mmol/L 07/21/2025 11:40 AM EDT [facility] CO2, Plasma 23 22 - 29 mmol/L 07/21/2025 11:40 AM EDT [facility] Anion Gap 12 6 - 16 mmol/L 07/21/2025 11:40 AM EDT [facility] Total Calcium, Plasma 9.5 8.9 - 10.2 mg/dL 07/21/2025 11:40 AM EDT [facility] Total Protein 7.2 6.3 - 7.9 g/dL 07/21/2025 11:40 AM EDT [facility] Albumin, Plasma 4.0 3.5 - 5.2 g/dL 07/21/2025 11:40 AM EDT [facility] AST, Plasma 28 10 - 50 U/L 07/21/2025 11:40 AM EDT [facility] ALT, Plasma 23 10 - 50 U/L 07/21/2025 11:40 AM EDT [facility] Alkaline Phosphatase, Plasma 62 40 - 115 U/L 07/21/2025 11:40 AM EDT [facility] Total Bilirubin, Plasma 0.5 0.2 - 1.1 mg/dL 07/21/2025 11:40 AM EDT [facility] eGFRcr 58.0 mL/min/1.7 3m*2 07/21/2025 11:40 AM EDT [facility] Comment:Reported eGFRcr in m L/min/1.73m2 is based the CKD-EPI 2020 equation that does not use a race coefficient. Blood Venous blood specimen / Unknown Venipuncture / Unknown 07/21/2025 10:45 AM EDT 07/21/2025 11:10 AM EDT Rachel Jonas APRN LAB BLOOD ORDERABLES Final R esult Performing Organization Address City/[facility]/ZIP Co de Phone Number [facility] [address] [place] [address] * Magnesium (07/21/2025 10:45 AM EDT) Magnesium, Plasma 2.3 1.9 - 2.4 mg/dL 07/21/2025 11:40 AM EDT [facility] Blood Venous blood specimen / Unknown Venipuncture / Unknown 07/21/2025 10:45 AM EDT 07/21/2025 11:10 AM EDT us Que Gentile MD LAB BLOOD ORDERABLES Final R esult Performing Organization Address City/[facility]/ZIP Co de Phone Number [facility] [address] [place] [address] documented in this encounter Visit Diagnoses Diagnosis Adenocarcinoma of gastroesophageal junction- Primary documented in this encounter Additional Health Concerns Assessment Noted Time A fall risk assessment has been complete d for the patient 07/21/2025 9:37 AM EDT A Body Mass Index follow-up plan has been documented for the patient 07/07/2025 10:51 PM EDT documented as of this encounter Care Teams Jboss Architect Relationship Specialty Start Date End Date Darius Ken MD [address] [place] [id number] PCP - General Internal Medicine 08/23/24 documented as of this encounter
--- OUTSIDE RECORDS SUMMARY | 2025-07-21 10:30 | XMS_ITS | Encounter Summary ---
Author Organization Healthcare Address [address] [place] [address] Care Team Providers Care Technician Assistant Name Role Phone Darius Ken MD Primary Care Provider [phone] Encounter Details Date Type Department Care Team (Latest Contact Info) Description 07/21/2025 10:30 AM EDT Office Visit [facility] Multidisciplinary Oncology Clinic [address] [place] [address] Rachel Jonas, INTERNAL MEDICINE SPECIALIST [address] [place] [address] Gastric adenocarcinoma (CMS/HCC) (Primary Dx) Social History [...] advised by Dr. Fleming to proceed with Fkel-Y-Aynwrielidkqt for easier chemotherapy delivery. Initially, he developed [...] Date/Time Value 07/07/2025 1015 GASTROESOPHAGEAL JUNCTION, BIOPSY ([id number] C; ): - 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 STOMACH, BIOPSY ([id number]; ): - NO PATHOLOGIC ABNORMALITIES. - NO H. PYLORI ORGANISMS IDENTIFIED ON H&E SLIDE. STOMACH, POLYP, BIOPSY ([id number]; ): - FUNDIC GLAND POLYP. Comment [...] before the surgery and arranging for a auto haulaway driver due to the use of general anesthesia. [...] caregiver; documentation in EMR; and care coordination. Rachel Jonas, RITU 07/21/25 4:06 PM [1] Past Medical History: Diagnosis Date Blood urine 2023 Esophageal cancer (CMS/HCC) june 2025 Hypertension 1999 Kidney stone Skin cancer 2004 Stomach cancer (CMS/HCC) june 2025 [2] Past Surgical History: Procedure Laterality Date APPENDECTOMY 2020 BACK SURGERY 2001 CHOLECYSTECTOMY 1985 COLONOSCOPY 2023 GALLBLADDER SURGERY 1998 [3] Allergies Allergen Reactions Penicillins Unknown - Patient states they do not know rxn details Childhood allergy, thinks it was maybe a rash, but isn't sure documented in this encounter Plan of Treatment Upcoming Encounters Date Type Department Care Team (Latest Contact Info) Description 08/18/2025 8:20 AM EDT Clinical Support [facility] [address] [place] [address] 08/18/2025 10:30 AM EDT Appointment [facility] [address] [place] [address] 08/20/2025 2:00 PM EDT Appointment [facility] [address] [place] [address] 09/01/2025 9:15 AM EDT Clinical Support [facility] [address] [place] [address] 09/01/2025 9:30 AM EDT Office Visit [facility] [address] [place] [address] Aristides Reina MD [address] [place] [address] 09/01/2025 11:00 AM EDT Appointment [facility] [address] [place] [address] 09/03/2025 10:30 AM EDT Appointment [facility] [address] [place] [address] 09/15/2025 9:30 AM EST Appointment [facility] [address] [place] [address] 09/17/2025 9:00 AM EST Appointment [facility] [address] [place] [address] 10/05/2025 8:00 AM EST Appointment [facility] PET Scan [address] [place] [address] 10/05/2025 9:00 AM EST Appointment [facility] PET Scan [address] [place] [address] 10/05/2025 11:15 AM EST Office Visit [facility] [address] [facility] [place] [address] Kim Machado MD [address] [place] [address] 01/13/2026 12:00 PM EST Office Visit [facility] [address] [place] [address] Eros Mejia MD [address] [place] [address] documented as of this encounter [...] documented as of this encounter Care Teams Technician Assistant Relationship Specialty Start Date End Date Darius Ken MD [address] [place] [address] PCP - General Internal Medicine 08/23/24 documented as of this encounter
--- OUTSIDE RECORDS SUMMARY | 2025-07-25 15:30 | XMS_ITS | Encounter Summary ---
Author Organization Healthcare Address [address] [place] [address] Care Team Providers Care Training Manager Name Role Phone Darius Ken MD Primary Care Provider [phone] Encounter Details Date Type Department Care Team (Late st Contact Info) Description 07/25/2025 3:30 PM EDT Pre-Admission Testing [facility] Pre-op Clinic [address], [address]st [place] [address] Anesthesia Record Procedure Summary Procedure Name Responsible [...] Site Prep: Alcohol, Chlorhexidine ; Local Anesth: [place]; Technique: Anatomical landmarks; Inserted by: jeronimo cedeno; [...] Notes * PAT Evaluation Note - Jesus Oviedo DO - 07/25/2025 3:30 PM EDT HPI Justin [...] Diagnosis Date Blood urine 2023 Esophageal cancer ([facility]/HCC) june 2025 Hypertension 1999 Kidney stone Skin cancer 2004 Stomach cancer ([facility]) june 2025 [2] Family History Problem Relation [...] tablet by mouth daily. Cosigned by Mario Ceabllos MD at 07/25/2025 1:40 PM EDT Associated [...] card, photo ID, along with power of data review specialist, guardianship or advanced directives if applicable Do [...] 08/18/2025 8:20 AM EDT Clinical Support [facility] [address] [place] [address] 08/18/2025 10:30 AM EDT Appointment [facility] [address] [place] [address] 08/20/2025 2:00 PM EDT Appointment [facility] [address] [place] [address] 09/01/2025 9:15 AM EDT Clinical Support [facility] [address] [place] [address] 09/01/2025 9:30 AM EDT Office Visit [facility] [address] [place] [address] Aristides Reina MD [address] [place] [address] 09/01/2025 11:00 AM EDT Appointment [facility] [address] [place] [address] 09/03/2025 10:30 AM EDT Appointment [facility] [address] [place] [address] 09/15/2025 9:30 AM EST Appointment [facility] [address] [place] [address] 09/17/2025 9:00 AM EST Appointment [facility] [address] [place] [address] 10/05/2025 8:00 AM EST Appointment [facility] [address] [place] [address] 10/05/2025 9:00 AM EST Appointment [facility] [address] [place] [address] 10/05/2025 11:15 AM EST Office Visit [facility] [address] [facility], 2nd [place] [address] Kim Machado MD [address] [phone] 01/13/2026 12:00 PM EST Office Visit [facility] [address] [place] [address] Eros Mejia MD [address] [place] [address] documented as of this encounter Visit Diagnoses Not on filedocumented in this encounter Additional Health Concerns Assessment Noted Time A fall risk assessment has been complete d for the patient 07/21/2025 9:37 AM EDT A Body Mass Index follow-up plan has been documented for the patient 07/07/2025 10:51 PM EDT documented as of this encounter Care Teams Training Manager Relationship Specialty Start Date End Date Darius Ken MD [address] [place] [address] PCP - General Internal Medicine 08/23/24 documented as of this encounter
--- OUTSIDE RECORDS SUMMARY | 2025-07-27 09:58 | XMS_ITS | Encounter Summary ---
Author Organization [facility] Address [address] 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 Procedures PET/CT FDG Skull Base To Mid Thigh Kim Machado MD [address] [address] Phone: tel: fax: Referral ID Status Reason Start Date Expiration Date Visits Re quested Visits Authorized [id number] Closed 07/06/2025 01/05/2027 2 2 Reason for Visit * Imaging (Routine) - Closed Specialty Diagnoses / Procedures Referred By Broderick olivares Referred To Contact Radiology Diagnoses 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 Procedures PET/CT FDG Skull Base To Mid Thigh Kim Machado MD [address] [address] Phone: tel: fax: Referral ID Status Reason Start Date Expiration Date Visits Re quested Visits Authorized [id number] Closed 07/06/2025 01/05/2027 2 2 Encounter Details Date Type Department Care Team (Latest Contact Info) Description 07/27/2025 9:58 AM EDT Hospital Encounter [facility] PET Scan [address] [place] [address] 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 Wish to be (Past 1 Month) No 025 2:25 PM EDT Carina Leone RN 2. Non-Specific Active Suici pearl Thoughts (Past 1 Month) No 07/29/2025 2:25 PM EDT Carina Leone RN * Calculated C-SSRS Risk Score (Lifetime/Recent) Answer Date of Assessment Author No Risk Indicated 07/29/2025 2:25 PM EDT Thanh Leone RN * Question Answer Date of Assessment Author 6. Suicidal Behavior (Lifetime) No 12:05 PM EDT Berenice Ferrera RN documented as of this encounter Medications at Time of Discharge alfuzosin (Uroxatral) 10 MG 24 hr tablet Take 1 tablet by mouth daily. 06/23/2024 Famotidine (PEPCID PO) 06/25/2025 Multiple Vitamin (multivitamin) capsule Take 1 capsule by mouth daily. rosuvastatin (Crestor) 10 MG tablet Take 1 tablet by mouth daily. 06/23/2024 acetaminophen (Tylenol) 500 MG tablet Take 1 tablet by mouth every 6 hours for 14 days. 56 tablet 07/29/2025 08/12/2025 bisoprolol (Zebeta) 5 MG tablet Take 1 tablet by mouth daily. Patient states half a tablet daily. 06/23/2024 08/05/2025 documented as of this encounter Plan of Treatment Upcoming Encounters Date Type Department Care Team (Latest Contact Info) Description 08/18/2025 8:20 AM EDT Clinical Support [facility] [address] [place] [address] 08/18/2025 10:30 AM EDT Appointment [facility] [address] [place] [address] 08/20/2025 2:00 PM EDT Appointment [facility] [address] [place] [address] 09/01/2025 9:15 AM EDT Clinical Support [facility] [address] [place] [address] 09/01/2025 9:30 AM EDT Office Visit [facility] [address] [place] [address] Aristides Reina MD [address] [place] [address] 09/01/2025 11:00 AM EDT Appointment [facility] [address] [place] [address] 09/03/2025 10:30 AM EDT Appointment [facility] [address] [place] [address] 09/15/2025 9:30 AM EST Appointment [facility] Infusion Clinic 2 [address] [place] [address] 09/17/2025 9:00 AM EST Appointment [facility] [address] [place] [address] 10/05/2025 8:00 AM EST Appointment [facility] PET Scan [address] [place] [address] 10/05/2025 9:00 AM EST Appointment [facility] [address] [place] [address] 10/05/2025 11:15 AM EST Office Visit [facility] [address] [facility], 2nd [place] [address] Kim Machado MD [address] [place] [address] 01/13/2026 12:00 PM EST Office Visit [facility] [address] [address] Eros Mejia MD [address] [place] [address] documented as of this encounter Procedures Procedure Name Priority Date/Time Associated Diagnosis Comments PET/CT FDG SKULL BASE TO MID THIGH Routine 07/27/2025 11:41 AM EDT 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 PET/CT scanner: Nicol 550. PET/CT acquisition: Owdegj-wy-xvm-thighs. Standardized uptake value (SUV): Corrected for body weight only. CT: Low-dose, hnl-llrirw-orvz, without intravenous contrast. TOTAL DLP (Dose Length [...] lytic or sclerotic lesions within the imaged [id number]. Multilevel degenerative changes. Procedure Note Quoc Pratt [...] raised. PET/CT scanner: Nicol 550. PET/CT acquisition: Tjempl-uy-vrn-thighs. Standardized uptake value (SUV): Corrected for body weight only. CT: Low-dose, khy-xcutzb-rxuo, without intravenous contrast. TOTAL DLP (Dose Length [...] difficult to evaluate because of under distention. ([id number] image [id number]). SUV max 29.7. Prostate gland [...] osseous lytic orsclerotic lesions within the imaged [id number]. Multilevel degenerative changes. 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 documented in this encounter Administered Medications Inactive Administered Medications - up to 3 most recent administrations Medication Order MAR Action Action Date Dose Rate Site Fludeoxyglucose F 18 (FDG 18) radio-isotope injection 12 millicurie 12 millicurie, Intravenous, Once, 1 dose, On Fri07/27/25 at 1130, Routine, Imaging NM Protocol Orders Given 07/27/2025 10:33 AM EDT 11.88 millicuries Right Antecubital documented in this encounter Additional Health Concerns Assessment Noted Time A fall risk assessment has been complete d for the patient 07/27/2025 12:23 PM EDT A Body Mass Index follow-up plan has been documented for the patient 07/27/2025 3:02 PM EDT documented as of this encounter Care Teams Furniture Associate Relationship Specialty Start Date End Date Darius Ken MD [address] [place] [address] PCP - General Internal Medicine 08/23/24 documented as of this encounter
--- OUTSIDE RECORDS SUMMARY | 2025-07-27 09:59 | XMS_ITS | Encounter Summary ---
Author Organization Healthcare Address [address] 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 Procedures PET/CT FDG Skull Base To Mid Thigh Kim Machado MD [address] [facility] [address] [place] [address] Phone: tel: fax: Referral ID Status Reason Start Date Expiration Date Visits Re quested Visits Authorized [id number] Closed 07/06/2025 01/05/2027 2 2 Encounter Details Date Type Department Care Team (Latest Contact Info) Description 07/27/2025 9:59 AM EDT - 07/27/2025 11:59 PM EDT Hospital Encounter [facility] PET Scan [address] [place] [address] Discharge Disposition: Home or Self Care Social [...] on file documented as of this encounter Medications at [...] Description 08/18/2025 8:20 AM EDT Clinical Support [facility] Multidisciplinary Oncology Clinic [address] [place] [address] 08/18/2025 10:30 AM EDT Appointment [facility] [address] [place] [address] 08/20/2025 2:00 PM EDT Appointment [facility] [address] [place] [address] 09/01/2025 9:15 AM EDT Clinical Support [facility] Multidisciplinary Oncology Clinic [address] [place] [address] 09/01/2025 9:30 AM EDT Office Visit [facility] Multidisciplinary Oncology Clinic [address] [place] [address] Aristides Reina MD [address] [place] [address] 09/01/2025 11:00 AM EDT Appointment [facility] Infusion Clinic 2 [address] [place] [address] 09/03/2025 10:30 AM EDT Appointment [facility] Infusion Clinic 2 [address] [place] [address] 09/15/2025 9:30 AM EST Appointment [facility] Infusion Clinic 2 [address] [place] [address] 09/17/2025 9:00 AM EST Appointment [facility] 2 [address] [place] [address] 10/05/2025 8:00 AM EST Appointment [facility] PET Scan [address] [place] [address] 10/05/2025 9:00 AM EST Appointment [facility] PET Scan [address] [place] [address] 10/05/2025 11:15 AM EST Office Visit [facility] [address] [facility], 2nd [place] [address] Kim Machado MD [address] [place] [address] 01/13/2026 12:00 PM EST Office Visit [facility] [address] [facility] [address] [place] [address] Eros Mejia MD [address] [place] [address] documented as of this encounter Procedures Procedure [...] raised. PET/CT scanner: Nicol 550. PET/CT acquisition: Xiwbwh-ms-zyy-thighs. Standardized uptake value (SUV): Corrected for body weight only. CT: Low-dose, xrk-gdxgtc-nlqp, without intravenous contrast. TOTAL DLP (Dose Length [...] lytic or sclerotic lesions within the imaged thykm-fx-kwci. Multilevel degenerative changes. Procedure Note Quoc Pratt [...] Not applicable. Positioning: Arms raised. PET/CT scanner: [facility] 550. PET/CT acquisition: Jxrirs-qg-svu-thighs. Standardized uptake value (SUV): Corrected for body weight only. CT: Low-dose, kvg-xbxltf-ompm, without intravenous contrast. TOTAL DLP (Dose Length [...] max 3.5 without definite large lymph nodes ([id number] image 450) No suspicious metabolically active pulmonary [...] difficult to evaluate because of under distention. ([id number] image 390). SUV max 29.7. Prostate gland [...] osseous lytic orsclerotic lesions within the imaged hjdao-ao-uzec. Multilevel degenerative changes. IMPRESSION: *Intense radiotracer activity [...] esult documented in this encounter Visit Diagnoses Not on filedocumented in this encounter Additional Health Concerns Assessment Noted Time A fall risk assessment has been complete d for the patient 07/27/2025 12:23 PM EDT A Body Mass Index follow-up plan has been documented for the patient 07/27/2025 3:02 PM EDT documented as of this encounter Care Teams Quality Control Inspector Relationship Specialty Start Date End Date Darius Ken MD [address] [place] [address] PCP - General Internal Medicine 08/23/24 documented as of this encounter
--- OUTSIDE RECORDS SUMMARY | 2025-07-27 13:00 | XMS_ITS | Encounter Summary ---
Author Organization [facility] Address [address] 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 Procedures Echo, Adult Transthoracic Complete Kim Machado MD [address] [address] Phone: tel: fax: Referral ID Status Reason Start Date Expiration Date V isits Requested Visits Authorized [id number] Closed Perform Procedure 07/27/2025 01/26/2027 1 1 Reason for Visit * Reason Comments Follow-up Encounter Details Date Type Department Care Team ([facility] Contact Info) Description 07/27/2025 1:00 PM EDT Office Visit [facility] Head[facility] Neck [facility] Respiratory [address] [place] [address] Kim Machado MD [id number] [place] [address] 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 (CMS/HCC) Social History Tobacco Use Types Packs/Day Years [...] Sign Reading Time Taken Comments Blood Pressure 112/74 07/27/2025 12:23 PM EDT Pulse 54 07/27/2025 12:23 PM EDT Temperature 36.6 C (97.9 F) 07/27/2025 12:23 PM EDT Respiratory Rate 16 07/27/2025 12:23 PM EDT Oxygen Saturation 98% 07/27/2025 12:23 PM EDT Inhaled Oxygen Concentration - - Weight 92.3 kg (203 lb 7.8 oz) 07/27/2025 12:23 PM EDT Height 185.4 cm (6' 1 ) 07/27/2025 12:23 PM EDT Body Mass Index 26.85 07/27/2025 12:23 PM EDT documented in this encounter Miscellaneous Notes * Progress Notes - Sara Heard PA - 07/27/2025 1:00 PM EDT Images from the original note were not included. [facility] Department of Surgery Section of Thoracic Surgery Outpatient Clinic Note Diagnosis: distal esophageal adenocarcinoma Procedure: n/a Pathology: n/a Interval History: Justin Best is a 69 y.o. male with PMH HLD, HTN, BPH, recurrent nephrolithiasis, CKD stage 3a, recent biopsy-proven distal esophageal adenocarcinoma who presents to the outpatient clinic with PET scan to complete staging to discuss next steps. He has established care withmedical oncology who plan to proceed with FLOT regimen. He is scheduled for a port his Friday. He has not had any significant health changes since his last visit. No complaints today. ROS: General: no fevers or chills, no [...] hemoptysis GI: no nausea, no vomiting, no abdominal pain, no constipation, no diarrhea, no melenal, no hematochezia, no dysphagia, no heartburn Skin: no rash Neuro: no numbness, no tingling, no headache, no difficulties with speech, no gait disturbance Heme: no easy bruising, no bleeding from the gums Endo: No polyuria or polydypsia Psych: no depression or anxiety Physical exam: Visit Vitals BP 112/74 (BP Location: Left arm, Patient Position: Sitting, BP Cuff Size: Adult) Pulse 54 Temp 36.6 ??C (97.9 ??F) (Oral) Ht 1.854 m (6' 1 ) Wt 92.3 kg (203 lb 7.8 oz) SpO2 98% BMI 26.85 kg/m?? General: alert and oriented, appropriate Lungs: CTA B, no wheezes or rhonchi Heart: RRR, no murmurs Abdomen: soft NT/ND, normal bowel sounds Lymph nodes: no palpable supraclavicular or cervical adenopathy Extremities: no peripheral edema Skin: no rash, no cyanosis and warm to touch Psychiatric: oriented to person/place/time and normal mood/affect Imaging: PET scan: official radiology read pending. Intense hypermetabolic uptake of distal esophagus and proximal stomach. No evidence of metastatic disease. Additional Testing: none Assessment and Plan: Justin Best is a 69 y.o. male with PMH HLD, HTN, BPH, recurrent nephrolithiasis, CKD [id number], recent biopsy-proven distal esophageal adenocarcinoma who presents to the outpatient clinic with PET scan to complete staging to discuss next steps. He has established care with medical oncology w ith plans to proceed with neoadjuvant FLOT regimen. His PET scan does not demonstrate any evidence of metastatic disease. We will order and echocardiogram and PFTs now to assess cardiopulmonary status with anticipation of proceeding with esophagectomy following neoadjuvant therapy. We will plan to see him back in clinic with restaging PET scan about 2-3 weeks after he completes chemotherapy. USHA Mcdaniels 07/27/25 12:27 PM Cosigned by Kim Machado MD at 07/27/2025 3:02 PM EDT Associated attestation - Kim Machado MD - 07/27/2025 3:02 PM EDT Attending Addendum: I reviewed with the PA, during the patient's visit about the patient's history, exam, diagnosis, and the plan of treatment. I reviewed all of the patient's prior records and testing. I interviewed and examined the patient personally. I agree with the plan of care as follows: PET with no evidence ofmetastatic disease although formal read pending. He continues to feel well overall. Medical oncology planning for FLOT protocol. I will obtain PFTs and echo to assess surgical candidacy but will tentatively plan for luciano brenda esophagectomy after he finishes his initial round of FLOT treatment. Plan for patient to return to clinic with PET after completion of neoadjuvant portion of FLOT. He is agr eeable. Kim Marcano MD steam box tender Thoracic Surgery documented in this encounter Plan of Treatment Upcoming Encounters Date Type Department Care Team (Latest Contact Info) Description 08/18/2025 8:20 AM EDT Clinical Support [facility] Multidisciplinary Oncology Clinic [address] [place] [phone] 08/18/2025 10:30 AM EDT Appointment [facility] [address] [place] [phone] 08/20/2025 2:00 PM EDT Appointment [facility] [address] [place] [phone] 09/01/2025 9:15 AM EDT Clinical Support [facility] Multidisciplinary Oncology Clinic [address] [place] [phone] 09/01/2025 9:30 AM EDT Office Visit [facility] Multidisciplinary Oncology Clinic [address] [place] [phone] Aristides Reina MD [address] [place] [address] 09/01/2025 11:00 AM EDT Appointment [facility] [address] [place] [phone] 09/03/2025 10:30 AM EDT Appointment [facility] [address] [place] [address] 09/15/2025 9:30 AM EST Appointment [facility] Infusion Clinic [address] [place] [phone] 09/17/2025 9:00 AM EST Appointment [facility] [address] [place] [address] 10/05/2025 8:00 AM EST Appointment [facility] PET Scan [address] [place] [phone] 10/05/2025 9:00 AM EST Appointment [facility] PET Scan [address] [place] [phone] 10/05/2025 11:15 AM EST Office Visit [facility] Head[facility] Neck [facility] Respiratory [address] [facility], [address]nd [place] [phone] Kim Machado MD [address] [place] [address] 01/13/2026 12:00 PM EST Office Visit [facility] [address] [place] [address] Eros Mejia MD [address] [place] [address] documented as of this encounter Results * (ABNORMAL) Pulmonary function testing (08/02/2025 12:00 PM EDT) [facility] [id number] 4.57 3.31 - 5.64 L VYAIRE PFT FVC PRED 4.47 VYAIRE PFT FVC LLN 3.31 VYAIRE PFT FVCPREZSCORE 0.14 VYAIRE PFT FVCPRE%PRED 102 % % VYAIRE PFT FVC PREDAUT US_Quanjer GLI (2012) VYAIRE PFT FVC Z-SCORE 0.14 VYAIRE PFT FEV1 PRE 3.45 2.42 - 4.24 L VYAIRE PFT FEV1 PRED 3.36 VYAIRE PFT FEV1 LLN 2.42 VYAIRE PFT RJZ4SDVHMLRZB 0.18 VYAIRE PFT FEV1_Pre%Pred 103 % % VYAIRE PFT FEV1 [facility] (2011) VYAIRE PFT FEV1 Z-SCORE 0.18 VYAIRE PFT FEV1/FVC PRE 75.65 62.09 - 87.50 % VYAIRE PFT CFN2OFJGDCT 76 VYAIRE PFT TZD4ALQPBD 62 VYAIRE PFT PMW2WMMRZRHCYTDE 0.01 VYAIRE PFT QXF5HMSDEK%PRED 100 % % [facility]AIRE PFT PXI4OWCHGCJD [facility] (2011) VYAIRE PFT SOP2GAMGHCRXR 0 VYAIRE PFT DBB02-86% PRE 2.65 1.08 - 4.52 L/s VYAIRE PFT QEK12-02%_Pred 2.50 VYAIRE PFT SJD2242%LLN 1.08 VYAIRE PFT DUU8635%PREZSCORE 0.14 VYAIRE PFT CBF9429%PRE%PRED 106 % % VYAIRE PFT BWV6520%PREDAUTN[facility] (2011) VYAIRE PFT PEF PRE 13.66(A) 6.32 - 11.18 L/s VYAIRE PFT PEF PRED 8.75 VYAIRE PFT PEF LLN 6.32 VYAIRE PFT PEFPREZSCORE 3.33 VYAIRE PFT PEFPRE%PRED 156 % % VYAIRE PFT PEF PREDAUT NHANES III (1998) VYAIRE PFT UFUBZRANNHGKIOAX9EIZ 16.30(A) 19.85 - 35.57 ml/(min* mmHg) VYAIRE PFT DLCOSINGLEBREATH PRED 27.02 VYAIRE PFT DLCOSINGLEBREATH LLN 19.85 VYAIRE PFT DLCOSINGLEBREATH Z-SCORE -2.60 VYAIRE PFT DLCOSINGLEBREATH % PRED 60.3 % VYAIRE PFT DLCOSINGLEBREATH PRED[facility] Stanojevic TLCO GLI (2019) VYAIRE PFT DLCOSINGLEBREATH Z-SCORE -2.60 08/02/2025 12:05 PM EDT VYAIRE PFT QDRSVKNZIFRTFNKNW8LA E 16.90(A) 19.85 - 35.57 ml/(min* mmHg) VYAIRE PFT DLCOCSINGLEBREATH PRED 27.02 VYAIRE PFT DLCOCSINGLEBREATH LLN 19.85 VYAIRE PFT DLCOCSINGLEBREATH Z-SCORE -2.43 VYAIRE PFT DLCOCSINGLEBREATH % PRED 62.5 % VYAIRE PFT DLCOCSINGLEBREATH PRED[facility] Stanojevic TLCO GLI (2019) VYAIRE PFT ZCDCOM9DRE 2.90(A) 2.96 - 5.12 ml/(min* mmHg*L) VYAIRE PFT DLCOVAPRED 3.99 VYAIRE PFT DLCOVALLN 2.96 VYAIRE PFT DLCOVAZSCORE -1.75 VYAIRE PFT DLCOVA%PRED 72.6 % VYAIRE PFT DLCOVAPREDAUT Stanojevic TLCO GLI (2019) VYAIRE PFT DLCOVAZSCORE -1.75 08/02/2025 12:05 PM EDT VYAIRE PFT DHMIXGNDO3DNG 3.00 2.96 - 5.12 ml/(min* mmHg*L) VYAIRE PFT DLCOC SB/VA PRED 3.99 VYAIRE PFT DLCOC SB/VA LLN 2.96 VYAIRE PFT DLCOC SB/VA Z-SCORE -1.57 VYAIRE PFT DLCOC SB/VA % PRED 75.2 % VYAIRE PFT DLCOC SB/VA [facility]ED[facility] Stanojevic TLCO GLI (2019) VYAIRE PFT DLCOC SB/VA Z-SCORE -1.57 08/02 12:05 PM EDT VYAIRE PFT XTWRQBPGQYUOOU5QEY 5.63 5.48 - 8.24 L VYAIRE PFT VASINGLEBREATH PRED 6.80 VYAIRE PFT VASINGLEBREATH LLN 5.48 VYAIRE PFT VASINGLEBREATH Z-SCORE -1.46 VYAIRE PFT VASINGLEBREATH % PRED 82.7 % VYAIRE PFT VASINGLEBREATH PRED[facility] Stanojevic TLCO GLI (2019) VYAIRE PFT VASINGLEBREATH Z-SCORE -1.46 08/02/2025 12:05 PM EDT VYAIRE PFT DHQWTJBQECPAMDW6NUF 4.44 3.31 - 5.64 L VYAIRE PFT IVCSINGLEBREATH PRED 4.47 VYAIRE PFT IVCSINGLEBREATH LLN 3.31 VYAIRE PFT IVCSINGLEBREATH Z-SCORE -0.04 VYAIRE PFT IVCSINGLEBREATH % PRED 99.4 % VYAIRE PFT IVCSINGLEBREATH PREDS[facility] US_Quanjer GLI (2011) VYAIRE PFT AZALEA% VCMAX PRE 96.17 % VYAIRE PFT TLC SB PRE 5.83(A) 5.97 - 9.15 L VYAIRE PFT TLCSINGLEBREATH PRED 7.55 VYAIRE PFT TLCSINGLEBREATH LLN 5.97 VYAIRE PFT TLCSINGLEBREATH Z-SCORE -1.79 VYAIRE PFT TLCSINGLEBREATH % PRED 77.2 % VYAIRE PFT TLCSINGLEBREATH PREDCharl[facility] Lung volumes GLI (2019)__ VYAIRE PFT HB PRE 13.40 g(Hb)/dL VYAIRE PFT JWH5ZOT 6.59 5.97 - 9.15 L VYAIRE PFT TLCPRED 7.55 VYAIRE PFT TLCLLN 5.97 VYAIRE PFT TLCULN 9.15 VYAIRE PFT TLCZSCORE -1.00 VYAIRE PFT TLC%PRED 87.3 % VYAIRE PFT TLCPREDAUTAkron [facility] Lung volumes GLI (2019)__ VYAIRE PFT VC0PRE 4.62 3.31 - 5.64 L VYAIRE PFT VCPRED 4.47 VYAIRE PFT VCLLN 3.31 VYAIRE PFT VCULN 5.64 VYAIRE PFT VCZSCORE 0.21 VYAIRE PFT VC%PRED 103.3 % VYAIRE PFT VCPREDAUTLOVELACE [facility]_Quanjer GLI (2011) VYAIRE PFT IC0PRE 3.64 2.40 - 4.44 L VYAIRE PFT ICPRED 3.44 VYAIRE PFT ICLLN 2.40 VYAIRE PFT ICULN 4.44 VYAIRE PFT IC Z-SCORE 0.32 VYAIRE PFT IC%PRED 105.7 % VYAIRE PFT ICPREDCharlton [facility] Hospital Lung volumes GLI (2019)__ VYAIRE PFT BIBAYAFT0HUJ 2.95 2.88 - 5.71 L VYAIRE PFT FRCPLETH PRED 4.13 VYAIRE PFT FRCPLETH LLN 2.88 VYAIRE PFT FRCPLETH ULN 5.71 VYAIRE PFT FRCPLETH Z-SCORE -1.53 VYAIRE PFT FRCPLETH % PRED 71.4 % VYAIRE PFT FRCPLET PREDCharlton Memorial Hospital Lung volumes GLI (2019)__ VYAIRE PFT DAX0JLO 0.98 0.43 - 2.72 L VYAIRE PFT ERVPRED 1.35 VYAIRE PFT ERVLLN 0.43 VYAIRE PFT ERVULN 2.72 VYAIRE PFT ERV Z-SCORE -0.58 VYAIRE PFT ERV%PRED 72.1 % [facility] P[facility] ERVPUAB [facility] Lung volumes GLI (2019)__ VYAIRE PFT RV0PRE 1.98 1.60 - 4.02 L VYAIRE PFT RVPRED 2.70 VYAIRE PFT RVLLN 1.60 VYAIRE PFT RVULN 4.02 VYAIRE PFT RVZSCORE -1.04 VYAIRE PFT RV%PRED 73.2 % VYAIRE PFT RVPREDAUTAkron [facility] Lung volumes GLI (2019)__ VYAIRE PFT RV%ZAM5SKP 29.97 24.30 - 47.37 % VYAIRE PFT RV%TLCPRED 36 VYAIRE PFT RV%TLCLLN 24 VYAIRE PFT RV%TLCULN 47 VYAIRE PFT RV%TLCZSCORE -0.81 VYAIRE PFT RV%TLC%PRED 84.2 % VYAIRE PFT RV%TLCPREDAUT [facility] Lung volumes GLI (2019)__ VYAIRE PFT Anatomical Region Laterality Modality PFT 08/02/2025 10:3 4 AM EDT Narrative 08/03/2025 1:05 PM EDT Pulmonary Function Testing Report Justin Best 69 y.o. underwent pulmonary function testing today at the [facility]. The patient underwent spirometry, lung volumes by body plethysmography, and diffusion capacity testing testing. All tests were appropriately administered via ATS/ERS criteria. Spirometry: Test quality: A. Test is acceptable and useable for interpretation. Normal spirometry Lung Volumes: Test Quality: Appropriate QA standards were met. Normal lung volumes. Diffusion Capacity: Test Quality: A. Data meets the highest standards for acceptability. Diffusion capacity corrected for Hb is mildly reduced. A reduced DLCO with a normal VA may be seen in conditions such as pulmonary vascular diseases, anemia, early ILD, and emphysema with preserved lung volumes. Recommend dedicated CT chest to evaluate for pulmonary parenchymal abnormalities. Trend: There are no prior studies for comparison. us Kim Machado MD PFT ORDERABLES Final Res ult * ECHO, ADULT TRANSTHORACIC COMPLETE W/ STRAIN, 3D (07/29/2025 10:51 AM EDT) Height 185.4 CORAZON ISCV Weight 92.1 CORAZON ISCV BSA 2.17 m2 CORAZON ISCV LVIDd 44 mm CORAZON ISCV LVIDs 23 mm CORAZON ISCV IVSd 13 mm CORAZON ISCV LVPWd 11 mm CORAZON ISCV LV MASS(C)D 191 g CORAZON ISCV [facility] CV ECHO LV MASS INDEX 88 g/m2 CORAZON ISCV LV RWT 0.55 mm CORAZON ISCV LV EDV (3D HM) 163 mL CORAZON ISCV LV ESV (3D HM) 60 mL CORAZON ISCV LV EF (3D HM) 63 % CORAZON ISCV LVOT diam 21 mm CORAZON ISCV LVOT AREA 3.5 cm2 CORAZON ISCV LA dimension 43 mm CORAZON ISCV RV s' Peter 19.5 cm/s CORAZON ISCV TAPSE 28 mm CORAZON ISCV AI Vmax 408.5 cm/s CORAZON ISCV AI max PG 67 mmHg CORAZON ISCV AI dec slope 123 cm/s2 CORAZON ISCV AI dec time 650 msec CORAZON ISCV AI P1/2t 189 msec CORAZON ISCV Ao Root Diam 31 mm CORAZON ISCV Ao STJ Diam 25 mm CORAZON ISCV Asc Ao Diam 35 mm CORAZON ISCV LAV(MOD-4ch) 66 mL CORAZON ISCV RA MOD 4Ch 63 mL CORAZON ISCV JANE 29 mL/m2 CORAZON ISCV RV base 40 mm CORAZON ISCV RV Mid 31 mm CORAZON ISCV RV Length 72 mm CORAZON ISCV LAV(MOD-bp) Indexed 33 mL/m2 CORAZON ISCV LAV(MOD-2ch) 76 mL CORAZON ISCV TR Vmax 241.0 cm/s CORAZON ISCV TR Max PG 23 mmHG CORAZON ISCV IVC Max Size 16 mm CORAZON ISCV RVSP 26 mmHg CORAZON ISCV RAP systole 3 mmHg CORAZON ISCV MPA diam 23 mm CORAZON ISCV MPA area 4.2 cm2 CORAZON ISCV MV E Vmax 40.9 cm/s CORAZON ISCV MV A Vmax 57.1 cm/s CORAZON ISCV MV E/A 0.7 cm/s CORAZON ISCV LV Lat e' Velocity 6.5 cm/s CORAZON ISCV Lat E/e' 6.3 CORAZON ISCV LV Sept e' Peter 5.0 cm/s CORAZON ISCV Sep E/e' 8.2 CORAZON ISCV Avg E/e' 7.2 CORAZON ISCV Anatomical Region Laterality Modality Echocardiography Narrative 07/29/2025 11:13 AM EDT Left Ventricle: Based on the linear dimension and/or 2D volumes, the left ventricle is normal in size. There is concentric remodeling. The left ventricular systolic function is normal. The LVEF as measured by Heart Model 3D volume is 63%. The global longitudinal strain is borderline (-16.5% to -18%). The diastolic function is abnormal. There is grade I (mild) diastolic dysfunction. The left ventricular filling pressure is normal. There is no recent study available for direct wybp-[id number] comparison. Left Ventricle Based on the linear dimension and/or 2D volumes, the left ventricle is normal in size. There is concentric remodeling. No left ventricular mass or thrombus is seen. The left ventricular systolic function is normal. The LVEF as measured by Heart Model 3D volume is 63%. The global longitudinal strain is borderline (-16.5% to -18%). The diastolic function is abnormal. There is grade I (mild) diastolic dysfunction. The left ventricular filling pressure is normal. The left ventricular wall motion is normal. Right Ventricle The right ventricle is normal in size. The right ventricular systolic function is normal. Right ventricular systolic pressure is normal (<35mmHg). Left Atrium The left atrial size is normal with an indexed volume of 16-34 mL/m2. The interatrial septum is intact with no evidence for an atrial septal defect. Right Atrium The right atrial volume index is normal (18-32mL/m2). IVC/SVC Based on the IVC size and respiratory variation, the estimated right atrial pressure is 3mmHg. Mitral Valve There is mild posterior mitral annular calcification. There is mild mitral regurgitation. There is no mitral stenosis. Tricuspid Valve The tricuspid valve is normal in appearance. There is mild tricuspid regurgitation. There is no tricuspid stenosis. Aortic Valve The aortic valve appears to be trileaflet. There is aortic annular calcification present. There is mild aortic valve regurgitation. There is no hemodynamically significant valvular aortic stenosis. Pulmonic Valve The pulmonic valve is normal in appearance. There is mild pulmonic regurgitation. There is no pulmonic stenosis. Pericardium Evidence of epicardial fat. No pericardial effusion. Great Vessels The aortic root is normal in size. The sinus of Valsalva (aortic root) diameter is 31 mm by leading edge to leading edge method. In the maximally visualized portion, the ascending aorta appears normal in size. The ascending aorta diameter is 35 mm. In the maximally visualized portion, the aortic arch appears normal in size. The main pulmonary artery is normal in size. The main pulmonary artery diameter is 23 mm. Study Details A complete transthoracic echocardiogram using two-dimensional (2D), m-mode, color and spectral flow Doppler, 3D and strain imaging was performed. Height: 185.4 cm. Weight: 92.1 kg. BSA: 2.17 m2. Study Recommendation There is no recent study available for direct [id number] comparison. 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
--- OUTSIDE RECORDS SUMMARY | 2025-07-29 09:39 | XMS_ITS | Encounter Summary ---
Author Organization Healthcare Address [address] 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] Procedures TN INSERT TUNNELED CV CATH WITH PORT CHG FLUOROGUIDE CNTRL SARAHI ACCESS,PLACE,REPLACE,REMOVE INSERTION, TUNNELED CENTRAL VENOUS DEVICE, WITH PORT Ghulam Ugarte MD [address] [address] Phone: tel: fax: [facility] [address] [place] [address] Phone: tel: Referral ID Status Reason Start Date Expiration Date Visits Re quested Visits Authorized [id number] 1 1 Encounter Details Date Type Department Care Team (Latest Contact Info) Description 07/29/2025 9:39 AM EDT - 07/29/2025 3:30 PM EDT Hospital Encounter [facility] [address] [place] [phone] Ghulam Ugarte MD [address] [address] 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] (Primary Dx) Discharge Disposition: Home or Self Care Social [...] Sign Reading Time Taken Comments Blood Pressure 127/81 07/29/2025 3:05 PM EDT Pulse 66 07/29/2025 3:05 PM EDT Temperature 35.8 C (96.4 F) 07/29/2025 2:25 PM EDT Respiratory Rate 13 07/29/2025 2:45 PM EDT Oxygen Saturation 97% 07/29/2025 3:05 PM EDT Inhaled Oxygen Concentration - - Weight 91.6 kg (202 lb) 07/29/2025 11:37 AM EDT Height - - Body Mass Index 26.65 07/27/2025 12:23 PM EDT documented in this encounter Functional Status * Question Answer [...] 06/23/2024 08/05/2025 documented as of this encounter Miscellaneous Notes * Anesthesia PACU Signout - Cindy Shelley DO - 07/29/2025 2:54 PM EDT Patient: Justin Best Anesthesia Type: general Vitals Value Taken Time BP 120/75 07/29/25 14:50 Temp 35.8 ??C (96.4 ??F) 07/29/25 14:25 Pulse 73 07/29/25 14:53 Resp 13 07/29/25 14:45 SpO2 97 % 07/29/25 14:53 Vitals shown include unfiled device data. Anesthesia PACU Signout Patient location during evaluation: PACU Patient participation: complete - patient participated Level of consciousness: baseline and awake Pain management: adequate (pain score 0-3) Airway patency: natural airway Hydration status: acceptable PONV: none Cardiovascular status: acceptable and hemodynamically stable Respiratory status: acceptable, spontaneous ventilation, unassisted, nonlabored ventilation and room air Discharge Disposition: home Cosigned by Sheyla Duvall MD at 07/29/2025 3:05 PM EDT Associated attestation - Sheyla Duvall MD - 07/29/2025 3:05 PM EDT I saw and evaluated the patient with the resident/fellow. I discussed the case with the resident/fellow and agree with the findings and plan as documented. * Op Note - Ghulam Ugarte MD - 07/29/2025 1:42 PM EDT Operative Note Date: 07/29/25 Location: [facility] Name: Justin Best, : 1955, Diagnoses: Pre-op Diagnosis Gastric adenocarcinoma (CMS/HCC) Post-op Diagnosis Gastric adenocarcinoma (CMS/HCC) Procedure(s): 1. Right Internal Jugular Vein 8-Gibraltarian Single Lumen PORT placement with US and Fluoroscopic Guidance Attending Surgeon(s): * Ghulam Ugarte - Primary Bioassayist(s): * Darlin Lane MD - Resident - Assisting Anesthesia: General ASA: III Blood Administration: Blood Product Administration History None Estimated Blood Loss: None Drains: * None in log * Implants Type Name Action Serial No. Catheter PORT CLEARVUE POWER 8FR - [id number] - [id number] Implanted [id number] Findings: Right Internal Jugular Vein accessed with US guidance. 8-F single Lumen port placed with Fluoroscopic verification. No immediate complications. Indications: Justin Best is an 69 y.o. male who is having surgery for Gastric adenocarcinoma (CMS/HCC). Narrative: INDICATIONS FOR PROCEDURE: Mr. Best is a very pleasant patient recently diagnosed with Gastroesophageal cancer. Surgical Oncology team consulted for port placement to facilitate systemic chemotherapy. Risks and benefits reviewed in detail and consent obtained. DESCRIPTION OF PROCEDURE: Patient was brought to the operating room suite and placed on the operating table in a supine position. Bilateral lower extremity sequential compression devices were in place and functional, followed by induction of general endotracheal anesthesia. Arms were carefully tucked at the side. The patient was placed into Trendelenburg position. The right internal jugular vein was verified to be in a superficial and compressible location using ultrasound guidance. Right neck and chest were prepped and draped in a sterile fashion. Timeout procedure was performed verifying antibiotic administration. Right internal jugular vein was once again accessed using a large needle. Ut ilizing ultrasound guidance, the guidewire was threaded in antegrade fashion and positioned into the vena cava verified on spot fluoroscopy. Attention was then turned to the right upper neck and chest where local anesthetic was infiltrated into the skin and subcutaneous tissue. A 15 blade knife wasused to make an incision, subcutaneous tissue was dissected using Bovie cautery. Prepectoral fasciawas identified and elevated to create a pocket to accommodate an 8-Gibraltarian single lumen port. Port was secured to the pocket using 2-0 Prolene traction suture. The plastic tubing was then threaded in a retrograde fashion through the upper neck and brought out adjacent to the guidewire. This requiredelongation of the skin incision by 3 mm using an 11 blade knife. The dilator and sheath were then threaded over the guidewire without difficulty. The dilator and guidewire were carefully removed, thepeel-away sheath was left in place, the plastic tubing was cut to position at the atriocaval junction, and then thread through the peel-away sheath, positioned in place. Peel-away sheath was carefully removed and fluoroscopy verified the excellent position of the final position of the catheter. Catheter aspirated easily, flushed easily and was secured in position. The soft tissue was inspected and found to be hemostatic and then closed in layers using 3-0 Vicryl, 4-0 Monocryl and Dermabond. Theport was primed with 3 mL of heparin. The patient tolerated the procedure, was extubated and transported to the postoperative care unit where a chest x-ray will be obtained. All operating was done under my supervision and I was present for the entire duration of the operation. Ghulam Ugarte MD 6:42 PM 07/29/25 There were NO signs of surgical site infection (SSI) present at the time of surgery (PATOS). Complications: None; patient tolerated the procedure well. Submitted by: Ghulam Ugarte MD - 07/29/2025 * Brief Op Note - Darlin Lane MD - 07/29/2025 1:42 PM EDT Date: 07/29/25 Location: [facility] Name: Justin Best, : 1955, Diagnoses: Pre-op Diagnosis Gastric adenocarcinoma (CMS/HCC) Post-op Diagnosis Gastric adenocarcinoma (CMS/HCC) Procedure(s): Insertion of Tunneled Central Venous Device with Port, Right Internal Jugular Attending Surgeon(s): * Ghulam Ugarte - Primary Bioassayist(s): * Darlin Lane MD - Resident - Assisting Anesthesia: General ASA: ASA status not filed in the log. Blood Administration: Blood Product Administration History None Estimated Blood Loss: None Drains: * None in log * Implants Type Name Action Serial No. Catheter PORT CLEARVUE POWER 8FR - [id number] - [id number] Implanted [id number] Specimen: None Findings: Right Internal Jugular Vein accessed with US guidance. 8-F single Lumen port placed with Fluoroscopic verification. No immediate complications. Complications: None; patient tolerated the procedure well. Submitted by: Darlin Lane MD - 07/29/2025 Cosigned by Ghulam Ugarte MD at 07/29/2025 6:44 PM EDT Associated attestation - Ghulam Ugarte MD - 07/29/2025 6:44 PM EDT I saw and evaluated the patient with the resident/fellow. I discussed the case with the resident/fellow and agree with the findings and plan as documented. * Astrid OnJENNIFERIR - Darlin Lane MD - 07/29/2025 10:10 AM EDT Images from the original note were not included. 92 Port-A-Cath (UK) What you should know A Port-A-Cath is small device that is placed just under the skin near your collar bone. It is made up of 2 connected parts: ? The port -- a small pocket with a rubber top that needles can go into. ? The catheter -- a plastic tube that is threaded through a vein near your heart. Port-A-Cath Port-A-Cath placement A Port-A-Cath will help you have fewer needle sticks in your veins when you get treatments or have blood taken for tests. Your port may be used for: ? Chemotherapy ? Blood transfusions ? IV fluids and medicines ? Blood samples A PowerPort is a special kind of Port-A-Cath that is used when you need to have dyes put into your blood for tests. You will have an I.D. card that describes the type of Port-A-Cath you have. If you go to the emergency room or see a different doctor for any reason, make sure the doctor knows you have a PowerPort. PowerPort Wound care ? You may remove your bandage and take a shower 48 hours after your surgery. ? When you shower, just let the water run over your incision. Don?t scrub the wound. Pat dry. ? Don't take a tub bath or swim for 14 days after your surgery. ? Leave the paper strips in place over the incision until they fall off on their own. If they have not fallen off after 14 days, you may pull them off. ? When your incision is healed, you may swim and take baths if there is no needle in your port. Helpful tips ? Any pain and swelling should go away within a week, but your shoulder may feel stiff and sore longer. It might also hurt the first time a needle is put into the port. The more the port is used, theless it will hurt. Your doctor or nurse may give you a special numbing medicine for your skin before you use your port. ? Ice: You may use ice for the first 24 to 48 hours after the port is put in to lessen swelling, pain, and redness. Put crushed ice in a plastic bag and cover it with a towel. Place this on the surgery area for 15 to 20 minutes every hour as long as you need it. Don?t sleep on the ice pack or leaveit on longer than 20 minutes at a time because you can get frostbite. Never let the ice pack touch y our skin directly. Always have a towel or a t-shirt between the pack and your skin. ? Heat: After the first 24 to 48 hours, you may use heat for 15 to 20 minutes every hour as long asyou need it to lessen pain or swelling. You may use warm compresses, a heating pad, or a hot water bottle. ? A warm moist compress is a small towel that is damp with hot water and placed in a plastic bag. Wrap a towel around the plastic bag to prevent gordon. Do not let the plastic bag touch your skin directly. ? If you use a heating pad, keep it turned on low. Call your doctor if you have any of the following ? Temperature of 101.5??F or higher for over 24 hours (unless you are told differently) ? Stitches are swollen, red, or have pus coming out of them ? Red streak from the port up your chest ? Face, neck or arm becomes swollen ? Area around the port is red, swollen, painful or feels warm ? Pain in your shoulder, arms, and neck that does not go away or gets worse ? Hard to get medicines to go into the port or the medicine has started going in much slower ? You have questions or concerns about your port * H&P - Darlin Lane MD - 07/29/2025 9:48 AM EDT Images from the original note were not included. Patient was last seen in clinic on 07/21/25 for discussion of port placement. Pt medical history andexamination unchanged since seen in clinic. Outpatient consultation note included below for reference. Plan to go to OR today for port-a-cath placement. Pt consent available in media. Pt was given the opportunity to ask questions and express concerns on day of surgery. Pt questions answered. Encounter Date: 07/21/2025 Signed Surgical Oncology Outpatient Consultation Requesting Service: Aristides [...] advised by Dr. Fleming to proceed with Nsup-P-Rbwhiklsrvbgs for easier chemotherapy delivery. Initially, he developed [...] promoter methylation study pending). Past Medical History: [Past Medical History Pertinent Negatives] [Past Medical History Pertinent Negatives] Past Medical History Diagnosis Date Blood urine 2023 Esophageal cancer (CMS/HCC) june 2025 Hypertension 1999 Kidney stone Skin cancer 2004 Stomach cancer (CMS/HCC) june 2025 Past Surgical History: [Surgical History] [Surgical History] Past Surgical History Procedure Laterality Date APPENDECTOMY 2020 BACK SURGERY 2001 CHOLECYSTECTOMY 1984 COLONOSCOPY 2023 GALLBLADDER SURGERY 1998 Social History: Tobacco: Tobacco Use: Low Risk (07/06/2025) Patient History Smoking Tobacco Use: Never Smokeless Tobacco Use: Never Passive Exposure: Not on file Alcohol: Alcohol Use: Not on file Illicit drug use: Social History Substance and Sexual Activity Drug Use Never Allergies: [Allergies] [Allergies] Allergen Reactions Penicillins Unknown - Patient states they do not know rxn details Childhood allergy, thinks it was maybe a rash, but isn't sure Family Medical History: family history includes Cancer [...] Date/Time Value 07/07/2025 1015 GASTROESOPHAGEAL JUNCTION, BIOPSY ([id number] C; ): - 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 STOMACH, BIOPSY ([id number] A; ): - NO PATHOLOGIC ABNORMALITIES. - NO H. PYLORI ORGANISMS IDENTIFIED ON H&E SLIDE. STOMACH, POLYP, BIOPSY ([id number] B; ): - FUNDIC GLAND POLYP. Comment [...] before the surgery and arranging for a driver sales due to the use of general anesthesia. [...] documentation in EMR; and care coordination. Rachel Jonas APRN 07/21/25 4:06 PM Contains text generated by STEVE Lane MD PGY-1 Pager: [phone] Epic chat preferred for non-emergent communication. Cosigned by Ghulam Ugarte MD at 07/29/2025 1:01 PM EDT Associated attestation - Ghulam Ugarte MD - 07/29/2025 1:01 PM EDT I saw and evaluated the patient with the resident/fellow. I discussed the case with the resident/fellow and agree with the findings and plan as documented. documented in this encounter Plan of Treatment Upcoming Encounters Date Type Department Care Team (Latest Contact Info) Description 08/18/2025 8:20 AM EDT Clinical Support [facility] [address] [place] [address] 08/18/2025 10:30 AM EDT Appointment [facility] [address] [place] [address] 08/20/2025 2:00 PM EDT Appointment [facility] [address] [place] [address] 09/01/2025 9:15 AM EDT Clinical Support [facility] [address] [place] [address] 09/01/2025 9:30 AM EDT Office Visit [facility] [address] [place] [address] Aristides Reina MD [address] [place] [address] 09/01/2025 11:00 AM EDT Appointment [facility] [address] [place] [address] 09/03/2025 10:30 AM EDT Appointment [facility] [address] [place] [address] 09/15/2025 9:30 AM EST Appointment [facility] [address] [place] [address] 09/17/2025 9:00 AM EST Appointment [facility] [address] [place] [address] 10/05/2025 8:00 AM EST Appointment [facility] [address] [place] [address] 10/05/2025 9:00 AM EST Appointment [facility] [address] [place] [address] 10/05/2025 11:15 AM EST Office Visit [facility] [address] [facility], [address]nd [place] [address] Kim Machado MD [address] [address] 01/13/2026 12:00 PM EST Office Visit [facility] [address] [address] Eros Mejia MD [address] [place] [address] documented as of this encounter Procedures Procedure Name Priority Date/Time Associated Diagnosis Comments XR CHEST 1 VIEW STAT 07/29/2025 3:20 PM EDT FL LESS THAN 1 HOUR (NON-REPORTABLE) Routine 07/29/2025 2:15 PM EDT TN INSERT TUNNELED CV CATH WITH PORT 07/29/2025 12:56 PM EDT Gastric adenocarcinoma (CMS/HCC) Special Needs Sonosite documented in this encounter Results * XR Chest 1 View (07/29/2025 3:20 PM EDT) Anatomical Region Laterality Modality Chest Digital Radiogra phy Impressions 07/29/2025 3:24 PM EDT Right chest port in place, no pneumothorax. CRITICAL RESULT: No. COMMUNICATION: Per this written report. By electronically signing this report, I, the attending physician, attest that I have personally reviewed the images/data for the above examination(s) and agree with the final edited report. Drafted by Tuan Corona MD on 07/29/2025 3:20 PM Final report signed by Darius Sanchez MD on 07/29/2025 3:24 PM Narrative 07/29/2025 3:24 PM EDT CLINICAL INDICATION: port placement TECHNIQUE: XR CHEST 1 VIEW COMPARISON: None. FINDINGS: Port in place projecting over the upper right lung, with catheter tip terminating over the superior vena cava. The cardiomediastinal silhouette is within normal limits. No focal consolidation. No pleural effusion or pneumothorax. Procedure Note Darius Sanchez MD - 07/29/2025 CLINICAL INDICATION: port placement TECHNIQUE: XR CHEST 1 VIEW COMPARISON: None. FINDINGS: Port in place projecting over the upper right lung, with catheter tipterminating over the superior vena cava. The cardiomediastinal silhouetteis within normal limits. No focal consolidation. No pleural effusion orpneumothorax. IMPRESSION: Right chest port in place, no pneumothorax. CRITICAL RESULT: No. COMMUNICATION: Per this written report. By electronically signing this report, I, the attending physician, attestthat I have personally reviewed the images/data for the aboveexamination(s) and agree with the final edited report. Drafted by Tuan Corona MD on 07/29/2025 3:20 PM Final report signed by Darius Sanchez MD on 07/29/2025 3:24 PM Ghulam Ugarte MD IMG XR PROCEDURES Final Re sult * FL Less than 1 Hour Intraoperative (07/29/2025 2:15 PM EDT) Narrative IMAGING - 07/29/2025 2:16 PM EDT Images were obtained for surgical purposes. See Ghulam Ugarte's surgical note in the patient's chart for the findings. 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] documented in this encounter Admitting Diagnoses Diagnosis Gastric adenocarcinoma (CMS/HCC) Malignant neoplasm of stomach, unspecified site documented in this encounter Administered Medications Inactive Administered Medications - up to 3 most recent administrations Medication Order MAR Action Action Date Dose Rate Site acetaminophen (Tylenol) tablet 1,000 mg 1,000 mg, Oral, Once as needed, 1 dose, Starting on Fri07/29/25 at 1414, Until Fri07/29/25 at 1916, Routine, Recovery (Phase I only), pain score of >1 out of 10 enoxaparin (Lovenox) syringe 40 mg 40 mg, Subcutaneous, Daily, First dose on Fri07/29/25 at 1215, Until Discontinued, Routine, Holding - Preprocedure Given 07/29/2025 11:50 AM EDT 40 mg Right Lower Abdomen fentaNYL (Sublimaze) injection 25 mcg 25 mcg, Intravenous, Every 5 min PRN, 2 doses, Starting on Fri07/29/25 at 1414, Until Fri07/29/25 at 191, Routine, Recovery (Phase I only), pain score of 3-4 out of 10 fentaNYL (Sublimaze) injection 50 mcg 50 mcg, Intravenous, Every 5 min PRN, 2 doses, Starting on Fri07/29/25 at 1414, Until Fri07/29/25 at 1915, Routine, Recovery (Phase I only), pain score of 5-8 out of 10 naloxone (Narcan) injection 0.4 mg 0.4 mg, Intravenous, As needed, Starting on Fri07/29/25 at 1414, Until Fri07/29/25 at 1915, Routine, Recovery (Phase I only), respiratory depression ondansetron (Zofran) injection 4 mg 4 mg, Intravenous, Once as needed, 1 dose, Starting on Fri07/29/25 at 1414, Until Fri07/29/25 at 1915, Routine, Recovery (Phase I only), nausea, vomiting oxyCODONE (Roxicodone) immediate release tablet 10 mg 10 mg, Oral, Once as needed, 2 doses, Starting on Fri07/29/25 at 1414, Until Fri07/29/25 at 191, Routine, Recovery (Phase I only), pain score of 6-8 out of 10 oxyCODONE (Roxicodone) immediate release tablet 5 mg 5 mg, Oral, Once as needed, 2 doses, Starting on Fri07/29/25 at 1414, Until Fri07/29/25 at 1915, Routine, Recovery (Phase I only), pain score of 3-5 out of 10 Povidone-Iodine 5 % swab solution 1 Application Nasal, Once, 1 dose, On Fri07/29/25 at 1215, Routine Given 07/29/2025 11:50 AM EDT 1 Application sodium chloride 0.9 % flush 10 mL 10 mL, Intravenous, Every 8 hours PRN, Starting on Fri07/29/25 at 1126, Until Fri07/29/25 at 1915, Routine, Holding - Preprocedure, line care sodium chloride 0.9 % flush 10 mL 10 mL, Intravenous, As needed, Starting on Fri07/29/25 at 1126, Until Fri07/29/25 at 1916, Routine, Holding - Preprocedure, line care documented in this encounter Active and Recently Administered Medications Times are shown in EDT. Scheduled Medication Order 07/27/2025 07/28/2025 07/29/2025 enoxaparin (Lovenox) syringe 40 mg (CANCELED) 40 mg, Subcutaneous, Daily, First dose on Fri07/29/25 at 1215, Until Discontinued, Routine, Holding - Preprocedure 1150 (Given - Provid er: Berenice Ferrera RN) Povidone-Iodine 5 % swab solution 1 Application (COMPLETED) Nasal, Once, 1 dose, On Fri07/29/25 at 1215, Routine 1150 (Given - Provid er: Berenice Ferrera RN) PRN Medication Order 07/27/2025 07/28/2025 07/29/2025 acetaminophen (Tylenol) tablet 1,000 mg 1,000 mg, Oral, Once as needed, 1 dose, Starting on Fri07/29/25 at 1414, Until Fri07/29/25 at 1916, Routine, Recovery (Phase I only), pain score of >1 out of 10 bupivacaine-EPINEPHrine PF (Marcaine w/EPI) 0.25% -[id number] injection (CANCELED) As needed, Starting on Fri07/29/25 at 1401, Until Fri07/29/25 at 1421, Routine, Intraprocedure 1401 (Given - Provid er: Ghulam Ugarte MD) fentaNYL (Sublimaze) injection 25 mcg 25 mcg, Intravenous, Every 5 min PRN, 2 doses, Starting on Fri07/29/25 at 1414, Until Fri07/29/25 at 1916, Routine, Recovery (Phase I only), pain score of 3-4 out of 10 fentaNYL (Sublimaze) injection 50 mcg 50 mcg, Intravenous, Every 5 min PRN, 2 doses, Starting on Fri07/29/25 at 1414, Until Fri07/29/25 at 1916, Routine, Recovery (Phase I only), pain score of 5-8 out of 10 heparin flush (porcine) 100 UNIT/ML injection (CANCELED) As needed, Starting on Fri07/29/25 at 1401, Until Fri07/29/25 at 1421, Routine, Intraprocedure 1401 (Given - Provid er: Ghulam Ugarte MD) naloxone (Narcan) injection 0.4 mg 0.4 mg, Intravenous, As needed, Starting on Fri07/29/25 at 1414, Until Fri07/29/25 at 1916, Routine, Recovery (Phase I only), respiratory depression ondansetron (Zofran) injection 4 mg 4 mg, Intravenous, Once as needed, 1 dose, Starting on Fri07/29/25 at 1414, Until Fri07/29/25 at 191, Routine, Recovery (Phase I only), nausea, vomiting oxyCODONE (Roxicodone) immediate release tablet 10 mg(Linked Group 1) 10 mg, Oral, Once as needed, 2 doses, Starting on Fri07/29/25 at 1414, Until Fri07/29/25 at 1916, Routine, Recovery (Phase I only), pain score of 6-8 out of 10 oxyCODONE (Roxicodone) immediate release tablet 5 mg(Linked Group 1) 5 mg, Oral, Once as needed, 2 doses, Starting on Fri07/29/25 at 1414, Until Fri07/29/25 at 191, Routine, Recovery (Phase I only), pain score of 3-5 out of 10 sodium chloride 0.9 % flush 10 mL(Linked Group 2) 10 mL, Intravenous, Every 8 hours PRN, Starting on Fri07/29/25 at 1126, Until Fri07/29/25 at 191, Routine, Holding - Preprocedure, line care sodium chloride 0.9 % flush 10 mL(Linked Group 2) 10 mL, Intravenous, As needed, Starting on Fri07/29/25 at 1126, Until Fri07/29/25 at 191, Routine, Holding - Preprocedure, line care Linked Groups Order Group 1: oxyCODONE (Roxicodone) immediate release tablet 5 mgJump to med 5 mg, Oral, Once as needed, 2 doses, Starting on Fri07/29/25 at 1414, Until Fri07/29/25 at 191, Routine, Recovery (Phase I only), pain score of 3-5 out of 10 Or oxyCODONE (Roxicodone) immediate release tablet 10 mgJump to med 10 mg, Oral, Once as needed, 2 doses, Starting on Fri07/29/25 at 1414, Until Fri07/29/25 at 1916, Routine, Recovery (Phase I only), pain score of 6-8 out of 10 Group 2: Insert peripheral IV (CANCELED) Once, On Fri07/29/25 at 1127, For 1 occurrence, Holding - Preprocedure And Saline lock IV (CANCELED) Once, On Fri07/29/25 at 1127, For 1 occurrence, Holding - Preprocedure And sodium chloride 0.9 % flush 10 mLJump to med 10 mL, Intravenous, Every 8 hours PRN, Starting on Fri07/29/25 at 1126, Until Fri07/29/25 at 1916, Routine, Holding - Preprocedure, line care And sodium chloride 0.9 % flush 10 mLJump to med 10 mL, Intravenous, As needed, Starting on Fri07/29/25 at 1126, Until Fri07/29/25 at 1916, Routine, Holding - Preprocedure, line care documented in this encounter Additional Health Concerns Assessment Noted Time A fall risk assessment has been complete d for the patient 07/27/2025 12:23 PM EDT A Body Mass Index follow-up plan has been documented for the patient 07/27/2025 3:02 PM EDT documented as of this encounter Care Teams Inventory Control Associate Relationship Specialty Start Date End Date Darius Ken MD [address] [place] [address] PCP - General Internal Medicine 08/23/24 documented as of this encounter
--- OUTSIDE RECORDS SUMMARY | 2025-07-29 10:06 | XMS_ITS | Encounter Summary ---
Author Organization [facility] Address [address] 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 Procedures Echo, Adult Transthoracic Complete Kim Machado MD [address] [facility] [address] [place] [address] Phone: tel: fax: Referral ID Status Reason Start Date Expiration Date V isits Requested Visits Authorized [id number] Closed Perform Procedure 07/27/2025 01/26/2027 1 1 Reason for Visit * Reason Comments Echo * Auth/Cert (Routine) Specialty Diagnoses / Procedures Referred By Broderick t Referred To Contact Diagnoses 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] Procedures AK INSERT TUNNELED CV CATH WITH PORT CHG FLUOROGUIDE CNTRL SARAHI ACCESS,PLACE,REPLACE,REMOVE INSERTION, TUNNELED CENTRAL VENOUS DEVICE, WITH PORT Ghulam Ugarte MD [address] [address] Phone: tel: fax: [facility] [address] [place] [address] Phone: tel: Referral ID Status Reason Start Date Expiration Date Visits Re quested Visits Authorized [id number] 1 1 Encounter Details Date Type Department Care Team (Latest Contact Info) Description 07/29/2025 10:06 AM EDT - 07/29/2025 11:59 PM EDT Hospital Encounter [facility] [address] [place] [address] 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 [...] Sign Reading Time Taken Comments Blood Pressure 116/69 07/29/2025 10:08 AM EDT Pulse 53 07/29/2025 10:08 AM EDT Temperature 36.6 C (97.8 F) 07/29/2025 10:08 AM EDT Respiratory Rate 12 07/29/2025 10:08 AM EDT Oxygen Saturation 97% 07/29/2025 10:08 AM EDT Inhaled Oxygen Concentration - - Weight 92 kg (202 lb 13.2 oz) 07/29/2025 10:08 A M EDT Height - - Body Mass Index 26.76 07/27/2025 12:23 PM EDT documented in this [...] Description 08/18/2025 8:20 AM EDT Clinical Support [facility] Multidisciplinary Oncology Clinic [address] [place] [address] 08/18/2025 10:30 AM EDT Appointment [facility] [address] [place] [address] 08/20/2025 2:00 PM EDT Appointment [facility] [address] [place] [address] 09/01/2025 9:15 AM EDT Clinical Support [facility] Multidisciplinary Oncology Clinic [address] [place] [address] 09/01/2025 9:30 AM EDT Office Visit [facility] Multidisciplinary Oncology Clinic [address] [place] [address] Aristides Reina MD [address] [place] [address] 09/01/2025 11:00 AM EDT Appointment [facility] Infusion Clinic 2 [address] [place] [address] 09/03/2025 10:30 AM EDT Appointment [facility] Infusion Clinic 2 [address] [place] [address] 09/15/2025 9:30 AM EST Appointment [facility] 2 [address] [place] [address] 09/17/2025 9:00 AM EST Appointment [facility] 2 [address] [place] [address] 10/05/2025 8:00 AM EST Appointment [facility] PET Scan [address] [place] [address] 10/05/2025 9:00 AM EST Appointment [facility] PET Scan [address] [place] [address] 10/05/2025 11:15 AM EST Office Visit [facility] [address] [facility], 2nd [place] [address] Kim Machado MD [address] [place] [address] 01/13/2026 12:00 PM EST Office Visit [facility] [address] [place] [address] Eros Mejia MD [address] [place] [address] documented as of this encounter Procedures Procedure Name Priority Date/Time Associated Diagnosis Comments ECHO, ADULT TRANSTHORACIC COMPLETE W/ STRAIN, 3D STAT 07/29/2025 10:51 AM EDT 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 Left Ventricle Based on the linear [...] is no recent study available for direct qykl-of-ygkr comparison. us Kim Machado MD CV ECHO [...] documented as of this encounter Care Teams Packing Clerk Relationship Specialty Start Date End Date Darius Ken MD [address] [place] [address] PCP - General Internal Medicine 08/23/24 documented as of this encounter
--- OUTSIDE RECORDS SUMMARY | 2025-07-29 12:25 | XMS_ITS | Encounter Summary ---
Author Organization Healthcare Address [address] 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] Procedures DE INSERT TUNNELED CV CATH WITH PORT CHG FLUOROGUIDE CNTRL SARAHI ACCESS,PLACE,REPLACE,REMOVE INSERTION, TUNNELED CENTRAL VENOUS DEVICE, WITH PORT Ghulam Ugarte MD [address] [address] Phone: tel: fax: [facility] [address] [place] [address] Phone: tel: Referral ID Status Reason Start Date Expiration Date Visits Re quested Visits Authorized [id number] 1 1 Encounter Details Date Type Department Care Team (Late st Contact Info) Description 07/29/2025 12:25 PM EDT - 07/29/2025 2:20 PM EDT Surgery [facility] [address] [place] [address] Ghulam Ugarte MD [address] [place] [id number] INSERTION, TUNNELED CENTRAL VENOUS DEVICE, WITH PORT [96058 (CPT )] Surgery Details Date/Time Status Location OR Service Patient Class Case Class Case Type Trauma Case? 07/29/2025 12:25 PM Posted [facility] E-Electi ve Panel 1 Procedure LRB Anes Op Region Wound Class Comments INSERTION, TUNNELED CENTRAL VENOUS DEVICE, WITH PORT N/A General Surgeon Surgeon Role Service Panel Ghulam Ugarte MD Primary Surgical Oncology 1 Darlin Lnae MD Resident - Assisting 1 Special Needs Sonosite documented in this encounter Social History Tobacco [...] Sign Reading Time Taken Comments Blood Pressure 127/83 07/29/2025 11:37 AM EDT Pulse 55 07/29/2025 11:37 AM EDT Temperature 36.6 C (97.8 F) 07/29/2025 11:37 AM EDT Respiratory Rate 16 07/29/2025 11:37 AM EDT Oxygen Saturation 98% 07/29/2025 11:37 AM EDT Inhaled Oxygen Concentration - - Weight 91.6 kg (202 lb) 07/29/2025 11:37 AM EDT Height - - Body Mass Index 26.65 07/27/2025 12:23 PM EDT documented in this encounter Functional Status * Calculated C-SSRS Risk Score (Lifetime/Recent) Answer Date of Assessment Author No Risk Indicated 07/29/2025 12:05 PM EDT Berenice Ferrera, YAHAIRA * Question Answer Date of Assessment Author 1. Wish to be (Past 1 Month) No 025 12:05 PM EDT Berenice Ferrera, RN 2. Non-Specific Active Suici pearl Thoughts (Past 1 Month) No 07/29/2025 12:05 PM EDT Berenice Ferrera, YAHAIRA 6. Suicidal Behavior (Lifetime) No 12:05 PM [...] (CMS/HCC) Procedure(s): 1. Right Internal Jugular Vein 8-Martiniquais Single Lumen PORT placement with US and Fluoroscopic Guidance Attending Surgeon(s): * Ghulam Ugarte - Primary Snuff Blender(s): * Darlin Lane MD - Resident - Assisting Anesthesia: General ASA: III Blood Administration: Blood Product Administration History None Estimated Blood Loss: None Drains: * None in log * Implants Type Name Action Serial No. Catheter PORT CLEARVUE POWER 8FR - [id number] - [id number] Implanted [id number] Findings: Right Internal Jugular Vein accessed with [...] to create a pocket to accommodate an 8-Martiniquais single lumen port. Port was secured to [...] 07/29/2025 1:42 PM EDT Date: 07/29/25 Location: [facility] Name: Justin Crystal Estephania, : 1955, Diagnoses: Pre-op Diagnosis Gastric adenocarcinoma (CMS/HCC) Post-op Diagnosis Gastric adenocarcinoma (CMS/HCC) Procedure(s): Insertion of Tunneled Central Venous Device with Port, Right Internal Jugular Attending Surgeon(s): * Ghulam Ugarte - Primary Snuff Blender(s): * Darlin Lane MD - Resident - Assisting Anesthesia: General ASA: ASA status not filed in the log. Blood Administration: Blood Product Administration History None Estimated Blood Loss: None Drains: * None in log * Implants Type Name Action Serial No. Catheter PORT CLEARVUE POWER 8FR - [id number] - [id number] Implanted [id number] Specimen: None Findings: Right Internal Jugular Vein [...] findings and plan as documented. * [facility] - Darlin Lane MD - 07/29/2025 10:10 [...] advised by Dr. Fleming to proceed with Talg-A-Fyidfrqjvhrih for easier chemotherapy delivery. Initially, he developed [...] CHOLECYSTECTOMY 1985 COLONOSCOPY 2023 GALLBLADDER SURGERY 1998 Social History: [...] Date/Time Value 07/07/2025 1015 GASTROESOPHAGEAL JUNCTION, BIOPSY ([id number] C; ): - 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 STOMACH, BIOPSY ([id number] A; ): - NO PATHOLOGIC ABNORMALITIES. - NO H. PYLORI ORGANISMS IDENTIFIED ON H&E SLIDE. STOMACH, POLYP, BIOPSY ([id number] B; ): - FUNDIC GLAND POLYP. Comment [...] before the surgery and arranging for a lyft driver due to the use of general [...] in EMR; and care coordination. Rachel Jonas, COMB WINDER 07/21/25 4:06 PM Contains text generated by STEVE Copilot Darlin Lane MD PGY-1 Pager: [phone] Epic chat preferred for non-emergent communication. Cosigned [...] Description 08/18/2025 8:20 AM EDT Clinical Support [facility] Multidisciplinary Oncology Clinic [address] [place] [address] 08/18/2025 10:30 AM EDT Appointment [facility] [address] [place] [address] 08/20/2025 2:00 PM EDT Appointment [facility] [address] [place] [address] 09/01/2025 9:15 AM EDT Clinical Support [facility] Multidisciplinary Oncology Clinic [address] [place] [address] 09/01/2025 9:30 AM EDT Office Visit [facility] Multidisciplinary Oncology Clinic [address] [place] [address] Aristides Reina MD [address] [place] [address] 09/01/2025 11:00 AM EDT Appointment [facility] Infusion Clinic 2 [address] [place] [address] 09/03/2025 10:30 AM EDT Appointment [facility] 2 [address] [place] [address] 09/15/2025 9:30 AM EST Appointment [facility] [address] [place] [address] 09/17/2025 9:00 AM EST Appointment [facility] [address] [place] [address] 10/05/2025 8:00 AM EST Appointment [facility] PET Scan [address] [place] [address] 10/05/2025 9:00 AM EST Appointment [facility] PET Scan [address] [place] [address] 10/05/2025 11:15 AM EST Office Visit [facility] [address] [facility], 2nd [place] [address] Kim Machado MD [address] [place] [address] 01/13/2026 12:00 PM EST Office Visit [facility] [address] [place] [address] Eros Mejia MD [address] [place] [address] documented as of this encounter Procedures Procedure Name Priority Date/Time Associated Diagnosis Comments XR CHEST 1 VIEW STAT 07/29/2025 3:20 PM EDT FL LESS THAN 1 HOUR (NON-REPORTABLE) Routine 07/29/2025 2:15 PM EDT DE INSERT TUNNELED CV CATH WITH PORT 07/29/2025 [...] signing this report, I, the attending physician, julianne I have personally reviewed the images/data for [...] the patient's chart for the findings. 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] Gastric adenocarcinoma (CMS/HCC) Malignant neoplasm of stomach, unspecified site documented in this encounter Admitting Diagnoses Diagnosis [...] of 10 bupivacaine-EPINEPHrine PF (Marcaine w/EPI) 0.25% -1:478823 injection As needed, Starting on Fri07/29/25 at 1401, Until Fri07/29/25 at 1421, Routine, Intraprocedure Given 07/29/2025 2:01 PM EDT 10 mL enoxaparin (Lovenox) syringe 40 mg 40 mg, [...] 10 heparin flush (porcine) 100 UNIT/ML injection As needed, Starting on Fri07/29/25 at 1401, Until Fri07/29/25 at 1421, Routine, Intraprocedure Given 07/29/2025 2:01 PM EDT 3 mL naloxone (Narcan) injection 0.4 mg 0.4 mg, [...] 191, Routine, Holding - Preprocedure, line care documented [...] of 10 bupivacaine-EPINEPHrine PF (Marcaine w/EPI) 0.25% -1:780230 injection (CANCELED) As needed, Starting on Fri07/29/25 [...] at 1916, Routine, Recovery (Phase I only), nausea, vomiting [...] 191, Routine, Holding - Preprocedure, line care And sodium chloride 0.9 % flush 10 mLJump to med 10 mL, Intravenous, As needed, Starting on Fri07/29/25 at 1126, Until Fri07/29/25 at 191, Routine, Holding - Preprocedure, line care documented in this encounter Additional Health Concerns Assessment Noted Time A fall risk assessment has been complete d for the patient 07/27/2025 12:23 PM EDT A Body Mass Index follow-up plan has been documented for the patient 07/27/2025 3:02 PM EDT documented as of this encounter Care Teams Transmission Tester Relationship Specialty Start Date End Date Darius Ken MD [address] [place] [address] PCP - General Internal Medicine 08/23/24 documented as of this encounter
--- OUTSIDE RECORDS SUMMARY | 2025-07-29 13:08 | XMS_ITS | Encounter Summary ---
Author Organization Healthcare Address [address] 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] Procedures NM INSERT TUNNELED CV CATH WITH PORT CHG FLUOROGUIDE CNTRL SARAHI ACCESS,PLACE,REPLACE,REMOVE INSERTION, TUNNELED CENTRAL VENOUS DEVICE, WITH PORT Ghulam Ugarte MD [address] [place] [phone] Phone: tel: fax: [facility] [address] [place] [phone] Phone: tel: Referral ID Status Reason Start Date Expiration Date Visits Re quested Visits Authorized [id number] 1 1 Encounter Details Date Type Department Care Team (Late st Contact Info) Description 07/29/2025 1:08 PM EDT Anesthesia Event [facility] [address] [place] [address] Jose Roberto Colmenares MD [facility][note 3]0 [facility] [address] [place] [address] Abby Small MD [address] [place] [address] Anesthesia Record Procedure Summary Procedure Name Responsible Anesthesiologist Anesthesia Start Time Anesthesia Stop Time INSERTION, TUNNELED CENTRAL VENOUS DEVICE, WITH PORT Jose Roberto Colmenraes MD 07/29/25 1308 07/29/25 1427 Events Date [...] acknowledgement of understanding. 1427 An Stop Meds Name Total fentaNYL (Sublimaze) injection 50 mcg/mL 100 mcg lidocaine PF (Xylocaine-MPF) 2% 40 mg propofol (Diprivan) injection 10 mg/mL 1 50 mg rocuronium (ZeMuron) injection 10 mg/mL 60 mg dexamethasone (Decadron) injection 4 mg/ mL 4 mg ondansetron (Zofran) injection 2 mg/mL 4 mg sugammadex (Bridion) injection 100 mg/mL 200 mg ceFAZolin (Ancef) IV syringe 100 mg/mL 2 g glycopyrrolate (Robinul) injection 0.2 m g/mL 0.4 mg lactated Ringer's infusion 0 mL * Agents Name O2 N2O Air Sevoflurane Isoflurane Desflurane Inspired Desflurane Inspired Isoflurane Inspired Sevoflurane N2O Inspired N2O * Blood No blood administrations on file. [...] Site Prep: Alcohol, Chlorhexidine ; Local Anesth: [place]; Technique: Anatomical landmarks; Inserted by: jeronimo cedeno; [...] Behavior (Lifetime) No 12:05 PM EDT Berenice Cedeno RN documented as of this encounter Miscellaneous Notes * Anesthesia Postprocedure Evaluation - Abby Small MD - 07/29/2025 2:27 PM EDT Patient: Justin Best Anesthesia Type: general Vitals Value Taken Time BP 123/81 07/29/25 14:25 Temp 35.7 07/29/25 14:27 Pulse 81 07/29/25 14:26 Resp 16 07/29/25 14:26 SpO2 100 % 07/29/25 14:26 Vitals shown include unfiled device data. Anesthesia Post Evaluation Patient location during evaluation: PACU Patient participation: complete - patient participated Level of consciousness: awake Pain management: adequate (pain score 0-3) Airway patency: natural airway Cardiovascular status: acceptable and hemodynamically stable Respiratory status: acceptable and blow-by oxygen Hydration status: acceptable Nausea/Vomiting: No No notable events documented. Cosigned by Jose Roberto Colmenares MD at 07/29/2025 5:15 PM EDT Associated attestation - Jose Roberto Colmenares MD - 07/29/2025 5:15 PM EDT I agree with the findings and care plan documented in the postprocedure evaluation note. * Anesthesia Preprocedure Evaluation - Jose Roberto Colmenares MD - 07/29/2025 2:06 PM EDT Anesthesiologist: Jose Roberto Colmenares MD Quality Improvement Coordinator: Abby Small MD Patient: Justin Best HPI Justin Best is a 69 y.o. male with body mass index is 26.65 kg/m??. who presents with Gastric adenocarcinoma (CMS/HCC), now for INSERTION, TUNNELED CENTRAL VENOUS DEVICE, WITH PORT (N/A) Procedure Information Anesthesia Start Date/Time: 07/29/25 1308 Procedure: INSERTION, TUNNELED CENTRAL VENOUS DEVICE, WITH PORT Location: [facility] Surgeons: Ghulam Ugarte MD Relevant Problems Cardio (+) Essential hypertension /Renal (+) Benign prostatic hyperplasia without lower urinary tract symptoms (+) Nephrolithiasis (+) Stage 3a chronic kidney disease (CMS/HCC) ALLERGIES Allergies[1] NPO STATUS Date of Last Liquid: 07/29/25 Time of Last Liquid: 0830 Date of Last Solid: 07/28/25 Time of Last Solid: 2300 Time of Last Void: 1130 Past Medical History[2] AIRWAY HISTORY Airway Detailed Review Displaying the 20 most recent records No records found. MEDICATIONS Outpatient Current Outpatient Medications Medication Instructions alfuzosin (UROXATRAL) 10 mg, Daily bisoprolol (ZEBETA) 5 mg, Daily Famotidine (PEPCID PO) Multiple Vitamin (multivitamin) capsule 1 capsule, Daily rosuvastatin (CRESTOR) 10 mg, Daily Scheduled Current Scheduled Medications[3] PRNs Current PRN Medications[4] SURGICAL HX: Surgical History[5] SOCIAL HX: Social History[6] OBJECTIVE DATA LABS Lab Results Component Value Date WBC 6.53 07/21/2025 HGB 13.4 (L) 07/21/2025 HCT 40.9 07/21/2025 MCV 93 07/21/2025 PLT 336 07/21/2025 Lab Results Component Value Date CALCIUM 9.5 07/21/2025 BUN 23 07/21/2025 CREATININE 1.32 (H) 07/21/2025 BCR 17 07/21/2025 NA 139 07/21/2025 K 4.9 07/21/2025 CL 104 07/21/2025 CO2 23 07/21/2025 Type and Screen No results found for: ABO No results found for: HGBA1C Lab Results Component Value Date GLUCOSE 75 07/21/2025 ABG No results found for: PHART , RDC0WPY , PO2ART , SO2ART , BEART , NKD7OSP , HCTART , SODIUMART , POTASSIUMART , POCTCL , POCGLU , IONCALART , LACTATE No results found for: PH , PCO2 , PO2 , L7KFAERT , BASEEXC , HCTSYR , KSYR , CLSYR , GLUSYR , CAION , LACTATE ECHO Echo, Adult Transthoracic Complete Result Date: 07/29/2025 Left Ventricle: Based on the linear dimension [...] is no recent study available for direct usdi-fc-ohgk comparison. PFTs No results found for: YUL1SAZ , JQQ5FQAV , EJD9VPY , FVCPRED BP Readings from Last 5 Encounters: 07/29/25 127/83 07/29/25 116/69 07/27/25 112/74 07/21/25 130/78 07/06/25 116/76 Physical Exam Airway Mallampati: II Cardiovascular Rhythm: regular Dental - normal exam Pulmonary Breath sounds clear to auscultation Neurological Skin Musculoskeletal Extremities Anesthesia Plan ASA 3 Plan was reviewed with: resident Anesthesia technique(s) discussed with the patient/family: general Anesthesia plan agreed upon was: general Anesthetic plan and risks discussed with patient. Anesthesia Evaluation [1] Allergies Allergen Reactions Penicillins Unknown - Patient states they do not know rxn details Childhood allergy, thinks it was maybe a rash, but isn't sure [2] Past Medical History: Diagnosis Date Blood urine 2023 Esophageal cancer ([facility]) june 2025 Hypertension 1999 Kidney stone Skin cancer 2004 Stomach cancer ([facility]) june 2025 [3] ceFAZolin, 2 g, Intravenous, Once enoxaparin, 40 mg, Subcutaneous, Daily [4] PRN medications: bupivacaine-EPINEPHrine PF, heparin flush (porcine), Insert peripheral IV AND Saline lock IV AND sodium chloride AND sodium chloride [5] Past Surgical History: Procedure Laterality Date APPENDECTOMY 2020 BACK SURGERY 2001 CHOLECYSTECTOMY 1984 COLONOSCOPY 2023 GALLBLADDER SURGERY 1998 [6] Social History Tobacco Use Smoking status: Never Smokeless tobacco: Never Substance Use Topics Alcohol use: Never Drug use: Never * Anesthesia Procedure Notes - Abby Small MD - 07/29/2025 1:32 PM EDT Associated Order(s): Airway Airway Date/Time: 07/29/2025 1:16 PM Reason: elective Airway not difficult General Information and Staff Patient location during procedure: OR Anesthesiologist: Jose Roberto Colmenares MD Resident: Abby Small MD Performed: Resident Patient Condition Indications for airway management: anesthesia Patient position: sniffing Final Airway Details Final airway type: endotracheal airway Successful airway: ETT Cuffed: yes Successful intubation technique: direct laryngoscopy Adjuncts used in placement: intubating stylet Endotracheal tube insertion site: oral Blade: Maribell Blade size: #3 ETT size (mm): 7.0 Cormack-Lehane Classification: grade I - full view of glottis Placement verified by: chest auscultation and capnometry Measured from: lips ETT to lips (cm): 22 Additional Comments Atraumatic. No change to dentition. Cosigned by Jose Roberto Colmenares MD at 07/29/2025 5:15 PM EDT Associated attestation - Jose Roberto Colmenares MD - 07/29/2025 5:15 PM EDT I was present during all critical and rosenberg portions of the procedure(s) and immediately available [facility] services the entire duration. See resident note for details. documented in this encounter Plan of Treatment Upcoming Encounters Date Type Department Care Team (Latest Contact Info) Description 08/18/2025 8:20 AM EDT Clinical Support [facility] [address] [place] [address] 08/18/2025 10:30 AM EDT Appointment [facility] [address] [place] [address] 08/20/2025 2:00 PM EDT Appointment [facility] [address] [place] [address] 09/01/2025 9:15 AM EDT Clinical Support [facility] [address] [place] [address] 09/01/2025 9:30 AM EDT Office Visit [facility] [address] [place] [phone] Aristides Reina MD [address] [place] [address] 09/01/2025 11:00 AM EDT Appointment [facility] 2 [address] [place] [phone] 09/03/2025 10:30 AM EDT Appointment [facility] 2 [address] [place] [address] 09/15/2025 9:30 AM EST Appointment [facility] 2 [address] [place] [address] 09/17/2025 9:00 AM EST Appointment [facility] 2 [address] [place] [address] 10/05/2025 8:00 AM EST Appointment [facility] PET Scan [address] [place] [phone] 10/05/2025 9:00 AM EST Appointment [facility] PET Scan [address] [place] [phone] 10/05/2025 11:15 AM EST Office Visit [facility] 800 [facility], 2nd [place] [address] Kim Machado MD [address] [phone] 01/13/2026 12:00 PM EST Office Visit [facility] [address] [place] [address] Eros Mejai MD [address] [place] [phone] documented as of this encounter Procedures Procedure Name Priority Date/Time Associated Diagnosis Comments PB ANESTHESIA PLACEHOLDER Routine 07/29/2025 1:16 PM EDT NM AN ELECTIVE ENDOTRACHEAL AIRWAY Routine 07/29/2025 1:16 PM EDT documented in this encounter Results * NM AN ELECTIVE ENDOTRACHEAL AIRWAY, PB ANESTHESIA PLACEHOLDER (07/29/2025 1:16 PM EDT) Narrative Jose Roberto Colmenares MD - 07/29/2025 1:16 PM EDT Jose Roberto Colmenares MD 07/29/2025 5:15 PM Airway Date/Time: 07/29/2025 1:16 PM Reason: elective Airway not difficult General Information and Staff Patient location during procedure: OR Anesthesiologist: Jose Roberto Colmenares MD Resident: bAby Small MD Performed: Resident Patient Condition Indications for airway management: anesthesia Patient position: sniffing Final Airway Details Final airway type: endotracheal airway Successful airway: ETT Cuffed: yes Successful intubation technique: direct laryngoscopy Adjuncts used in placement: intubating stylet Endotracheal tube insertion site: oral Blade: Maribell Blade size: #3 ETT size (mm): 7.0 Cormack-Lehane Classification: grade I - full view of glottis Placement verified by: chest auscultation and capnometry Measured from: lips ETT to lips (cm): 22 Additional Comments Atraumatic. No change to dentition. us Jose Roberto Colmenares MD ANESTHESIA ORDERABLES F inal Result documented in this encounter Visit Diagnoses Not on filedocumented in this encounter Administered Medications Inactive Administered Medications - up to 3 most recent administrations Medication Order MAR Action Action Date Dose Rate Site ceFAZolin (Ancef) IV syringe Intravenous, As needed, Starting on Fri07/29/25 at 1329, Until Fri07/29/25 at 1427, Administer over 30 Minutes, Routine Given 07/29/2025 1:29 PM EDT 2 g dexamethasone (Decadron) injection Intravenous, As needed, Starting on Fri07/29/25 at 1325, Until Fri07/29/25 at 1427, Routine, Anesthesia Intraprocedure Given 07/29/2025 1:25 PM EDT 4 mg fentaNYL (Sublimaze) injection Intravenous, As needed, Starting on Fri07/29/25 at 1314, Until Fri07/29/25 at 1427, Routine, Anesthesia Intraprocedure Given 07/29/2025 1:14 PM EDT 100 mcg glycopyrrolate (Robinul) injection Intravenous, As needed, Starting on Fri07/29/25 at 1345, Until Fri07/29/25 at 1427, Routine, Anesthesia Intraprocedure Given 07/29/2025 1:45 PM EDT 0.2 mg Given 07/29/2025 1:40 PM EDT 0.2 mg lactated Ringer's infusion Intravenous, Continuous PRN, Starting on Fri07/29/25 at 1308, Until Fri07/29/25 at 1427, Routine New Bag 07/29/2025 1:08 PM EDT lidocaine PF (Xylocaine) 2 % injection Intravenous, As needed, Starting on Fri07/29/25 at 1314, Until Fri07/29/25 at 1427, Routine, Anesthesia Intraprocedure Given 07/29/2025 1:14 PM EDT 40 mg ondansetron (Zofran) injection Intravenous, As needed, Starting on Fri07/29/25 at 1348, Until Fri07/29/25 at 1427, Routine, Anesthesia Intraprocedure Given 07/29/2025 1:48 PM EDT 4 mg propofol (Diprivan) injection Intravenous, As needed, Starting on Fri07/29/25 at 1314, Until Fri07/29/25 at 1427, Routine, Anesthesia Intraprocedure Given 07/29/2025 1:14 PM EDT 150 mg rocuronium (ZeMuron) injection Intravenous, As needed, Starting on Fri07/29/25 at 1314, Until Fri07/29/25 at 1427, Routine, Anesthesia Intraprocedure Given 07/29/2025 1:53 PM EDT 20 mg Given 07/29/2025 1:14 PM EDT 40 mg sugammadex (Bridion) 100 MG/ML injection Intravenous, As needed, Starting on Fri07/29/25 at 1412, Until Fri07/29/25 at 1427, Routine, Anesthesia Intraprocedure Given 07/29/2025 2:12 PM EDT 200 mg documented in this encounter Additional Health Concerns Assessment Noted Time A fall risk assessment has been complete d for the patient 07/27/2025 12:23 PM EDT A Body Mass Index follow-up plan has been documented for the patient 07/27/2025 3:02 PM EDT documented as of this encounter Care Teams Charge Manager Relationship Specialty Start Date End Date Darius Ken MD [address] [place] [address] PCP - General Internal Medicine 08/23/24 documented as of this encounter
--- OUTSIDE RECORDS SUMMARY | 2025-08-02 10:20 | XMS_ITS | Encounter Summary ---
Author Organization Healthcare Address [address] [place] [address] Care Team Providers Care [employer] Whe[employer] Driver Name Role Phone Darius Ken MD Primary Care Provider [phone] Encounter Details Date Type Department Care Team (Latest Contact Info) Description 08/02/2025 10:20 AM EDT - 08/02/2025 11:59 PM EDT Hospital Encounter [facility] H Pulmonary Function Testing 800 [place] [address] 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 [...] tablet Take 1 tablet by mouth daily. 4 dexamethasone (Decadron) 4 MG tabletIndications:Myrtle nocarcinoma of gastroesophageal junction Take 2 tablets by mouth 2 times a day. Start day prior to docetaxel and continue for a total of 3 days. 72 tablet 5 Famotidine (PEPCID PO) 5 loperamide (Imodium A-D) 2 MG tabletIndications:Myrtle nocarcinoma of gastroesophageal junction 2 mg by mouth every 2 hours as needed for diarrhea; Not to exceed 16 mg in 24 hours 30 tablet 5 5 Multiple Vitamin (multivitamin) capsule Take 1 capsule by mouth daily. ondansetron (Zofran) 8 MG tabletIndications:Myrtle nocarcinoma of gastroesophageal junction Take 1 tablet by mouth 2 times a day. Take for two days starting the day after chemotherapy and then take PRN 30 tablet 3 5 prochlorperazine (Compazine) 10 MG tabletIndications:Myrtle nocarcinoma of gastroesophageal junction Take 1 tablet by mouth every 6 hours as needed for nausea or vomiting. 30 tablet 5 5 rosuvastatin (Crestor) 10 MG tablet Take 1 tablet by mouth daily. 4 acetaminophen (Tylenol) 500 MG tablet Take 1 tablet by mouth every 6 hours for 14 days. 56 tablet 5 08/12/20 25 bisoprolol (Zebeta) 5 MG tablet Take 1 tablet by mouth daily. Patient states half a tablet daily. 4 08/05/20 25 documented as of this encounter Plan of Treatment Upcoming Encounters Date Type Department Care Team (Latest Contact Info) Description 08/18/2025 8:20 AM EDT Clinical Support [facility] Multidisciplinary Oncology Clinic [address] [place] [phone] 08/18/2025 10:30 AM EDT Appointment PAV H Infusion [address] [place] [phone] 08/20/2025 2:00 PM EDT Appointment [facility] Infusion [address] [place] [address] 09/01/2025 9:15 AM EDT Clinical Support [facility] Multidisciplinary Oncology Clinic [address] [place] [address] 09/01/2025 9:30 AM EDT Office Visit [facility] Multidisciplinary Oncology Clinic [address] [place] [address] Aristides Reina MD 800 [place] [address] 09/01/2025 11:00 AM EDT Appointment [facility] 2 [address] [place] [address] 09/03/2025 10:30 AM EDT Appointment [facility] 2 [address] [place] [address] 09/15/2025 9:30 AM EST Appointment [facility] Infusion Clinic 2 [address] [place] [address] 09/17/2025 9:00 AM EST Appointment [facility] 2 [address] [place] [address] 10/05/2025 8:00 AM EST Appointment [facility] PET Scan [address] [place] [phone] 10/05/2025 9:00 AM EST Appointment [facility] PET Scan [address] [place] [address] 10/05/2025 11:15 AM EST Office Visit [facility] 800 [facility], 2nd [place] [phone] Kim Machado MD [address] [place] [address] 01/13/2026 12:00 PM EST Office Visit [facility] [address] [place] [address] Eros Mejia MD [address] [place] [address] documented as of this encounter Procedures Procedure Name Priority Date/Time Associated Diagnosis Comments HC DIFFUSING CAPACITY - CARBON MONOXIDE DIFFUSING CAPACITY Routine 08/02/2025 12:00 PM EDT 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 (CMS/HCC) documented in this encounter Results * (ABNORMAL) Pulmonary function testing (08/02/2025 12:00 PM EDT) [facility] Signature MHL8PHO 4.57 3.31 - 5.64 L VYAIRE PFT FVC PRED 4.47 VYAIRE PFT FVC LLN 3.31 VYAIRE PFT FVCPREZSCORE 0.14 VYAIRE PFT FVCPRE%PRED 102 % % VYAIRE PFT F[facility]ED[facility], [place] (2011) VYAIRE PFT FVC Z-SCORE 0.14 VYAIRE PFT FEV1 PRE 3.45 2.42 - 4.24 L VYAIRE PFT FEV1 PRED 3.36 VYAIRE PFT FEV1 LLN 2.42 VYAIRE PFT FXX3VIEEPMPNZ 0.18 VYAIRE PFT FEV1_Pre%Pred 103 % % VYAIRE PFT FEV1 PREDAUTSaint [facility] (2011) VYAIRE PFT FEV1 Z-SCORE 0.18 VYAIRE PFT FEV1/FVC PRE 75.65 62.09 - 87.50 % VYAIRE PFT BNU4YWKSUTR 76 VYAIRE PFT FML1NQOEZZ 62 VYAIRE PFT JLW8QOVFTZSOIJMW 0.01 VYAIRE PFT LBX3DDIBNF%PRED 100 % % VYAIRE PFT OKO5QFMUKAJZ [facility] (2011) VYAIRE PFT GMS8ZDVYAAGEI 0 VYAIRE PFT DXE17-55% PRE 2.65 1.08 - 4.52 L/s VYAIRE PFT OEU20-34%_Pred 2.50 VYAIRE PFT XIT9123%LLN 1.08 VYAIRE PFT EZN0629%PREZSCORE 0.14 VYAIRE PFT DHP3473%PRE%PRED 106 % % VYAIRE PFT GRL1917%PREDAUTSaint [facility]uther[facility] (2011) VYAIRE PFT PEF PRE 13.66(A) 6.32 - 11.18 L/s VYAIRE PFT PEF PRED 8.75 VYAIRE PFT PEF LLN 6.32 VYAIRE PFT PEFPREZSCORE 3.33 VYAIRE PFT PEFPRE%PRED 156 % % VYAIRE PFT PEF PREDAUT NHANES III (1998) VYAIRE PFT RZEOKPYUIQFUUJQQ8EDN 16.30(A) 19.85 - 35.57 ml/(min* mmHg) VYAIRE PFT DLCOSINGLEBREATH PRED 27.02 VYAIRE PFT DLCOSINGLEBREATH LLN 19.85 VYAIRE PFT DLCOSINGLEBREATH Z-SCORE -2.60 VYAIRE PFT DLCOSINGLEBREATH % PRED 60.3 % VYAIRE PFT DLCOSINGLEBREATH PREDAUT Stanojevic TLCO GLI (2019) VYAIRE PFT DLCOSINGLEBREATH Z-SCORE -2.60 08/02/2025 12:05 PM EDT VYAIRE PFT LWCZDNGOUKMEZJMZD8QU E 16.90(A) 19.85 - 35.57 ml/(min* mmHg) VYAIRE PFT DLCOCSINGLEBREATH PRED 27.02 VYAIRE PFT DLCOCSINGLEBREATH LLN 19.85 VYAIRE PFT DLCOCSINGLEBREATH Z-SCORE -2.43 VYAIRE PFT DLCOCSINGLEBREATH % PRED 62.5 % VYAIRE PFT DLCOCSINGLEBREATH PREDALBU[facility] Stanojevic TLCO GLI (2019) VYAIRE PFT ZMQIMV7EZE 2.90(A) 2.96 - 5.12 ml/(min* mmHg*L) VYAIRE PFT DLCOVAPRED 3.99 VYAIRE PFT DLCOVALLN 2.96 VYAIRE PFT DLCOVAZSCORE -1.75 VYAIRE PFT DLCOVA%PRED 72.6 % VYAIRE PFT DLCOVAPREDAUT Stanojevic [facility]CO GLI (2019) VYAIRE PFT DLCOVAZSCORE -1.75 08/02/2025 12:05 PM EDT VYAIRE PFT QJPWHEWBO1KZV 3.00 2.96 - 5.12 ml/(min* mmHg*L) VYAIRE PFT DLCOC SB/VA PRED 3.99 VYAIRE PFT DLCOC SB/VA LLN 2.96 VYAIRE PFT DLCOC SB/VA Z-SCORE -1.57 VYAIRE PFT DLCOC SB/VA % PRED 75.2 % VYAIRE PFT DLCOC SB/VA PREDAUT Stanojevic TLCO GLI (2019) VYAIRE PFT DLCOC SB/VA Z-SCORE -1.57 08/02 12:05 PM EDT VYAIRE PFT BTZBSZWKTFXGUW8XOH 5.63 5.48 - 8.24 L VYAIRE PFT VASINGLEBREATH PRED 6.80 VYAIRE PFT VASINGLEBREATH LLN 5.48 VYAIRE PFT VASINGLEBREATH Z-SCORE -1.46 VYAIRE PFT VASINGLEBREATH % PRED 82.7 % VYAIRE PFT VASINGLEBREATH PREDALBUQUERQUE [facility] Stanojevic TLCO GLI (2019) VYAIRE PFT VASINGLEBREATH Z-SCORE -1.46 08/02/2025 12:05 PM EDT VYAIRE PFT WXWHMLEZLPLWBCP2HHE 4.44 3.31 - 5.64 L VYAIRE PFT IVCSINGLEBREATH PRED 4.47 VYAIRE PFT IVCSINGLEBREATH LLN 3.31 VYAIRE PFT IVCSINGLEBREATH Z-SCORE -0.04 VYAIRE PFT IVCSINGLEBREATH % PRED 99.4 % VYAIRE PFT IVCSINGLEBREATH PREDALBUQUERQUE [facility] US_Quanjer GLI (2011) VYAIRE PFT AZALEA% VCMAX PRE 96.17 % VYAIRE PFT TLC SB PRE 5.83(A) 5.97 - 9.15 L VYAIRE PFT TLCSINGLEBREATH PRED 7.55 VYAIRE PFT TLCSINGLEBREATH LLN 5.97 VYAIRE PFT TLCSINGLEBREATH Z-SCORE -1.79 VYAIRE PFT TLCSINGLEBREATH % PRED 77.2 % VYAIRE PFT TLCSINGLEBREATH PREDALBUQUER[facility] Lung volumes GLI (2019)__ VYAIRE PFT HB PRE 13.40 g(Hb)/dL VYAIRE PFT ZVU6YYN 6.59 5.97 - 9.15 L VYAIRE PFT TLCPRED 7.55 VYAIRE PFT TLCLLN 5.97 VYAIRE PFT TLCULN 9.15 VYAIRE PFT TLCZSCORE -1.00 VYAIRE PFT TLC%PRED 87.3 % VYAIRE PFT TLCPREDFitchburg [facility] Hospital Lung volumes GLI (2019)__ VYAIRE PFT [...] VYAIRE PFT IC%PRED 105.7 % VYAIRE PFT ICPREDFitchburg General Hospital Lung volumes GLI (2019)__ VYAIRE PFT BLMIXWAW0RFK 2.95 2.88 - 5.71 L VYAIRE PFT FRCPLETH PRED 4.13 VYAIRE PFT FRCPLETH LLN 2.88 VYAIRE PFT FRCPLETH ULN 5.71 VYAIRE PFT FRCPLETH Z-SCORE -1.53 VYAIRE PFT FRCPLETH % PRED 71.4 % VYAIRE PFT FRCPLET PREDAUTPremier Health Lung volumes GLI (2019)__ VYAIRE PFT LWK5YJO 0.98 0.43 - 2.72 L VYAIRE PFT ERVPRED 1.35 VYAIRE PFT ERVLLN 0.43 VYAIRE PFT ERVULN 2.72 VYAIRE PFT ERV Z-SCORE -0.58 VYAIRE PFT ERV%PRED 72.1 % [facility]AIRE PFT ERVPVeterans Affairs Medical Center[facility] Lung volumes GLI (2019)__ VYAIRE PFT RV0PRE 1.98 1.60 - 4.02 L VYAIRE PFT RVPRED 2.70 VYAIRE PFT RVLLN 1.60 VYAIRE PFT RVULN 4.02 VYAIRE PFT RVZSCORE -1.04 VYAIRE PFT RV%PRED 73.2 % VYAIRE PFT RVPREDFitchburg General Hospital Lung volumes GLI (2019)__ VYAIRE PFT RV%PHT1UHG 29.97 24.30 - 47.37 % VYAIRE PFT [...] underwent pulmonary function testing today at the [facility]. The patient underwent spirometry, lung [...] Machado MD PFT ORDERABLES Final Res ult documented in this encounter Visit Diagnoses Diagnosis 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 documented in this encounter Additional Health Concerns Assessment Noted Time A fall risk assessment has been complete d for the patient 07/27/2025 12:23 PM EDT A Body Mass Index follow-up plan has been documented for the patient 07/27/2025 3:02 PM EDT documented as of this encounter Care Teams Meals On Wheels Driver Relationship Specialty Start Date End Date Darius Ken MD [address] [place] [address] PCP - General Internal Medicine 08/23/24 documented as of this encounter
--- OUTSIDE RECORDS SUMMARY | 2025-08-03 07:37 | XMS_ITS | Encounter Summary ---
Author Organization [facility] Address [address] [place] [id number] Care Team Providers Care Enamel Finisher Name Role Phone Darius Ken MD Primary Care Provider [phone] Reason for Visit * Episode Based Medications (Routine) - Authorized Specialty Diagnoses / Procedures Referred By Broderick t Referred To Contact Diagnoses Adenocarcinoma of gastroesophageal junction Procedures FLOT: Fluorouracil + Leucovorin + OXALIplatin + DOCEtaxel Every 14 Days X 2 Every 28 Days Que Gentile MD [address] Hood [address] [address] Phone: tel: fax: Que Gentile MD [address] [place] [address] Bettina Hood [address] [address] Phone: tel: fax: Referral ID Status Reason Start Date Expiration Date V isits Requested Visits Authorized [id number] Authorized 07/21/2025 01/20/2027 1 27 Encounter Details Date Type Department Care Team (Latest Contact Info) Description 08/03/2025 7:37 AM EDT - 08/03/2025 11:59 PM EDT Hospital Encounter [facility] [address] [place] [phone] 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) Discharge Disposition: Home or Self [...] Sign Reading Time Taken Comments Blood Pressure 147/83 08/03/2025 12:55 PM EDT Pulse 64 08/03/2025 12:55 PM EDT Temperature 36.5 C (97.7 F) 08/03/2025 11:54 AM EDT Respiratory Rate 18 08/03/2025 11:54 AM EDT Oxygen Saturation 96% 08/03/2025 7:38 AM EDT Inhaled Oxygen Concentration - - Weight 96.9 kg (213 lb 10 oz) 08/03/2025 7:38 AM EDT Height 182.9 cm (6') 08/03/2025 7:38 AM EDT Body Mass Index 28.97 08/03/2025 7:38 AM EDT documented in this encounter Medications at Time of Discharge [...] 08/05/20 25 documented as of this encounter Miscellaneous Notes * Addendum Note - Zuri Angeles, PharmD - 08/03/2025 8:00 AM EDTEncounter addended by: Zuri Angeles, PharmD on: 08/04/2025 12:56 PM Actions taken: Order list changed, Clinical Note Signed, Treatment plan modified * Addendum Note - Edwin Reddy - 08/03/2025 8:00 AM EDTEncounter addended by: Edwin Reddy on: 08/04/2025 2:19 PM Actions taken: Charge Capture section accepted * Addendum Note - Sofía Bowles - 08/03/2025 8:00 AM EDTEncounter addended by: Sofía Bowles on: 08/05/2025 1:06 PM Actions taken: Charge Capture section accepted * Progress Notes - Zuri Angeles, PharmD - 08/03/2025 8:00 AM EDT Pharmacy Hematology/Oncology Treatment Note Justin Best is a 69 y.o. 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 . Study Patient: no Treatment Plan reviewed for FLOT-D every 28 days. [x] Follow-Up Clinical Review for Cycle 1 Days 1, 15 [] Follow-Up Clinical Review for Continuous Oral Therapy Interval History: 08/03/25: Mr. Best was evaluated in clinic on 07/21 and consented for neoadjuvant FLOT-D, but PET was still pending for final staging and plan. PET 07/27 confirmed that his disease is not metastatic sowill proceed with FLOT-D per [place]. He was consented and counseled in clinic on 07/21. Per Dr. 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 Durvalumab was denied by insurance yesterday, and Dr. Reina has submitted an appeal letter. If approved, will add to D15. Labs reviewed and appropriate for treatment. Update 08/04/25: Appeal was approved, so will add durvalumab to D15 orders for both C1 and C2. Today's Wt: Wt Readings from Last 1 Encounters: 08/03/25 96.9 kg (213 lb 10 oz) Dosing Wt: 92.8 kg Dosing Ht: 185.4 cm DosingBSA: 2.17 m2 Recent Labs: Lab Results Component Value Date WBC 12.63 (H) 08/03/2025 HGB 13.0 (L) 08/03/2025 HCT 38.7 (L) 08/03/2025 MCV 91 08/03/2025 PLT 326 08/03/2025 Lab Results Component Value Date GLUCOSE 143 (H) 08/03/2025 CALCIUM 9.5 08/03/2025 NA 139 08/03/2025 K 4.0 08/03/2025 CO2 21 (L) 08/03/2025 CL 106 08/03/2025 BUN 22 08/03/2025 CREATININE 1.23 (H) 08/03/2025 Lab Results Component Value Date ALT 26 08/03/2025 AST 20 08/03/2025 ALKPHOS 63 08/03/2025 BILITOT 0.4 08/03/2025 Lab Results Component Value Date NEUTROABS 11.57 (H) 08/03/2025 Lab Results Component Value Date MG 2.3 07/21/2025 Lab Results Component Value Date TSH 0.34 (L) 08/03/2025 No results found for: URINEPRO Vitals: Visit Vitals BP 138/71 (BP Location: Left arm, Patient Position: Sitting, BP Cuff Size: Adult) Pulse 74 Temp 36.4 ??C (97.5 ??F) (Temporal) Resp 18 Other Relevant Monitoring: Treatment/Therapy Plan: Fluorouracil 2600 mg/m2 (5750 mg) IV Over 46 Hours Days 1, 15 Leucovorin 200 mg/m2 (434 mg) IV Days 1, 15 Oxaliplatin 85 mg/m2 (185 mg) IV Days 1, 15 Docetaxel 50 mg/m2 (110 mg) IV Days 1, 15 Durvalumab 1500 mg (flat dose) IV Day 15 (On D15 d/t insurance approval delay) Every 28 Days [x] No dose adjustments made Current Treatment Plan History: Neoadjuvant FLOT-D Cycle 1: 08/03, 08/18/25 Prior Treatment History: NA Plan: Supportive care medications picked up and started yesterday. Patient will return to clinic in 4 weeks. Will follow-up at that time. Pharmacist Attestation: Radha GoldmanD, [facility] Clinical Oncology Pharmacist documented in this encounter Plan of Treatment Upcoming Encounters Date Type Department Care Team (Latest Contact Info) Description 08/18/2025 8:20 AM EDT Clinical Support [facility] Multidisciplinary Oncology Clinic [address] [place] [phone] 08/18/2025 10:30 AM EDT Appointment [facility] [address] [place] [phone] 08/20/2025 2:00 PM EDT Appointment [facility] [address] [place] [phone] 09/01/2025 9:15 AM EDT Clinical Support [facility] Multidisciplinary Oncology Clinic [address] [place] [phone] 09/01/2025 9:30 AM EDT Office Visit [facility] Mult[facility] Oncology [facility] [address] [place] [phone] Aristides Reina MD [address] [place] [address] 09/01/2025 11:00 AM EDT Appointment [facility] [address] [place] [phone] 09/03/2025 10:30 AM EDT Appointment [facility] [address] [place] [address] 09/15/2025 9:30 AM EST Appointment [facility] [address] [place] [phone] 09/17/2025 9:00 AM EST Appointment [facility] [address] [place] [phone] 10/05/2025 8:00 AM EST Appointment [facility] PET Scan [address] [place] [phone] 10/05/2025 9:00 AM EST Appointment [facility] PET Scan [address] [place] [phone] 10/05/2025 11:15 AM EST Office Visit [facility] [address] [facility] [address] [place] [phone] Kim Machado MD [address] [phone] 01/13/2026 12:00 PM EST Office Visit [facility] [address] [place] [address] Eros Mejia MD [address] [place] [address] Scheduled Orders Name Type Priority Associated Diagnoses Orde r Schedule CBC and differential Lab Routine Adenocarcinoma of gastroesophageal junction (CMS/HCC) Expected: 09/01/2025, Expires: 09/01/2026 Comprehensive metabolic panel Lab Routine Adenocarcinoma of gastroesophageal junction (CMS/HCC) Expected: 09/01/2025, Expires: 09/01/2026 Magnesium Lab STAT Adenocarcinoma of gastroesophageal junction (CMS/HCC) Expected: 09/01/2025, Expires: 09/01/2026 CBC and differential Lab Routine Adenocarcinoma of gastroesophageal junction (CMS/HCC) Expected: 09/15/2025, Expires: 09/15/2026 Comprehensive metabolic panel Lab Routine Adenocarcinoma of gastroesophageal junction (CMS/HCC) Expected: 09/15/2025, Expires: 09/15/2026 documented as of this encounter Procedures Procedure Name Priority Date/Time Associated Diagnosis Comments TSH REFLEX FT4 Routine 08/03/2025 8:02 AM EDT Adenocarcinoma of gastroesophageal junction (CMS/HCC) CBC WITH AUTO DIFFERENTIAL Routine 08/03/2025 8:02 AM EDT Adenocarcinoma of gastroesophageal junction (CMS/HCC) FREE T4, PLASMA Routine 08/03/2025 8:02 AM EDT Adenocarcinoma of gastroesophageal junction (CMS/HCC) COMPREHENSIVE METABOLIC PANEL, PLASMA Routine 08/03/2025 8:02 AM EDT Adenocarcinoma of gastroesophageal junction (CMS/HCC) documented in this encounter Results * Free T4, Plasma (08/03/2025 8:02 AM EDT) Free T4, Plasma 1.5 0.8 - 1.7 ng/dL 08/03/2025 9:14 AM EDT [facility] Blood Blood sample taken from central line / Unknown (Port) Long-term Catheter / Unknown 08/03/2025 8:02 AM EDT 08/03/2025 8:13 AM EDT us Que Gentile MD LAB BLOOD ORDERABLES Final R esult [facility] [address] [place] [address] * (ABNORMAL) CBC and differential (08/03/2025 8:02 AM EDT) WBC Count 12.63(H) 3.70 - 10.30 10*3/uL LAB HEMATOLOGY METHOD 08/03/2025 8:29 AM EDT [facility] RBC Count 4.24(L) 4.60 - 6.10 10*6/uL LAB HEMATOLOGY METHOD 08/03/2025 8:29 AM EDT [facility] HGB 13.0(L) 13.7 - 17.5 g/dL LAB HEMATOLOGY METHOD 08/03/2025 8:29 AM EDT [facility] HCT 38.7(L) 40.0 - 51.0 % LAB HEMATOLOGY METHOD 08/03/2025 8:29 AM EDT [facility] Platelet Count 326 155 - 369 10*3/uL LAB HEMATOLOGY METHOD 08/03/2025 8:29 AM EDT [facility] MCV 91 79 - 98 fL LAB HEMATOLOGY METHOD 08/03/2025 8:29 AM EDT [facility] MCH 30.7 26.0 - 32.0 pg LAB HEMATOLOGY METHOD 08/03/2025 8:29 AM EDT [facility] MCHC 33.6 30.7 - 35.5 g/dL LAB HEMATOLOGY METHOD 08/03/2025 8:29 AM EDT [facility] RDW 11.9 11.5 - 14.5 % LAB HEMATOLOGY METHOD 08/03/2025 8:29 AM EDT [facility] MPV 10.6 8.8 - 12.5 fL LAB HEMATOLOGY METHOD 08/03/2025 8:29 AM EDT [facility] nRBC 0.0 <=0.0 per 100 WBCs LAB HEMATOLOGY METHOD 08/03/2025 8:29 AM EDT [facility] Differential Type Automated LAB HEMATOLOGY METHOD 08/03/2025 8:29 AM EDT [facility] Neutrophils % 92 % LAB HEMATOLOGY METHOD 08/03/2025 8:29 AM EDT [facility] Lymphocytes % 6 % LAB HEMATOLOGY METHOD 08/03/2025 8:29 AM EDT [facility] Monocytes % 2 % LAB HEMATOLOGY METHOD 08/03/2025 8:29 AM EDT [facility] Eosinophils % 0 % LAB HEMATOLOGY METHOD 08/03/2025 8:29 AM EDT [facility] Basophils % 0 % LAB HEMATOLOGY METHOD 08/03/2025 8:29 AM EDT [facility] Immature Granulocytes % 0 % LAB HEMATOLOGY METHOD 08/03/2025 8:29 AM EDT [facility] Neutrophils Absolute 11.57(H) 1.60 - 6.10 10*3/uL LAB HEMATOLOGY METHOD 08/03/2025 8:29 AM EDT [facility] Lymphocytes Absolute 0.71(L) 1.20 - 3.90 10*3/uL LAB HEMATOLOGY METHOD 08/03/2025 8:29 AM EDT [facility] Monocytes Absolute 0.30 0.30 - 0.90 10*3/uL LAB HEMATOLOGY METHOD 08/03/2025 8:29 AM EDT [facility] Eosinophils Absolute 0.00 0.00 - 0.50 10*3/uL LAB HEMATOLOGY METHOD 08/03/2025 8:29 AM EDT [facility] Basophils Absolute 0.01 0.00 - 0.10 10*3/uL LAB HEMATOLOGY METHOD 08/03/2025 8:29 AM EDT [facility] Immature Granulocytes Absolute 0.04 0.00 - 0.06 10*3/uL LAB HEMATOLOGY METHOD 08/03/2025 8:29 AM EDT [facility] Blood Blood sample taken from central line / Unknown (Port) Long-term Catheter / Unknown 08/03/2025 8:02 AM EDT 08/03/2025 8:17 AM EDT Narrative [facility] - 08/03/2025 8:29 AM EDT Therapeutic decision making should be based on absolute values, rather than percentages. us Que Gentile MD LAB BLOOD ORDERABLES Final R esult [facility] [address] [place] [address] * (ABNORMAL) Comprehensive metabolic panel (08/03/2025 8:02 AM EDT) Glucose, Plasma 143(H) 74 - 99 mg/dL 08/03/2025 8:51 AM EDT [facility] BUN, Plasma 22 8 - 23 mg/dL 08/03/2025 8:51 AM EDT [facility] Creatinine, Plasma 1.23(H) 0.70 - 1.20 mg/dL 08/03/2025 8:51 AM EDT [facility] BUN/Creatinine Ratio 18 08/03/2025 8:51 AM EDT [facility] Sodium, Plasma 139 136 - 145 mmol/L 08/03/2025 8:51 AM EDT [facility] Potassium, Plasma 4.0 3.6 - 4.9 mmol/L 08/03/2025 8:51 AM EDT [facility] Chloride, Plasma 106 97 - 107 mmol/L 08/03/2025 8:51 AM EDT [facility] CO2, Plasma 21(L) 22 - 29 mmol/L 08/03/2025 8:51 AM EDT [facility] Anion Gap 12 6 - 16 mmol/L 08/03/2025 8:51 AM EDT [facility] Total Calcium, Plasma 9.5 8.9 - 10.2 mg/dL 08/03/2025 8:51 AM EDT [facility] Total Protein 7.1 6.3 - 7.9 g/dL 08/03/2025 8:51 AM EDT [facility] Albumin, Plasma 3.9 3.5 - 5.2 g/dL 08/03/2025 8:51 AM EDT [facility] AST, Plasma 20 10 - 50 U/L 08/03/2025 8:51 AM EDT [facility] ALT, Plasma 26 10 - 50 U/L 08/03/2025 8:51 AM EDT [facility] Alkaline Phosphatase, Plasma 63 40 - 115 U/L 08/03/2025 8:51 AM EDT [facility] Total Bilirubin, Plasma 0.4 0.2 - 1.1 mg/dL 08/03/2025 8:51 AM EDT [facility] eGFRcr 63.2 mL/min/1.7 3m*2 08/03/2025 8:51 AM EDT [facility] Comment:Reported eGFRcr in m L/min/1.73m2 is based the CKD-EPI 2020 equation that does not use a race coefficient. Blood Blood sample taken from central line / Unknown (Port) Long-term Catheter / Unknown 08/03/2025 8:02 AM EDT 08/03/2025 8:13 AM EDT us Que Gentile MD LAB BLOOD ORDERABLES Final R esult Performing Organization Address City/[facility]/ZIP Co de Phone Number [facility] [address] [place] [address] * (ABNORMAL) TSH Reflex FT4 (08/03/2025 8:02 AM EDT) Thyroid Stimulating Hormone, Plasma 0.34(L) 0.40 - 4.20 uIU/mL 08/03/2025 8:51 AM EDT [facility] Blood Blood sample taken from central line / Unknown (Port) Long-term Catheter / Unknown 08/03/2025 8:02 AM EDT 08/03/2025 8:13 AM EDT us Que Gentile MD LAB BLOOD ORDERABLES Final R esult Performing Organization Address City/[facility]/ZIP Co de Phone Number [facility] [address] [place] [address] documented in this encounter Visit Diagnoses Diagnosis Adenocarcinoma of gastroesophageal junction- Primary documented in this encounter Administered Medications Inactive Administered Medications - up to 3 most recent administrations Medication Order MAR Action Action Date Dose Rate Site cetirizine (ZyrTEC) tablet 10 mg 10 mg, Oral, Once, 1 dose, On Fri08/03/25 at 0915, RoutineIndications:Adenocarcin alvarado of gastroesophageal junction Given 08/03/2025 9:07 AM EDT 10 mg DOCEtaxel (Taxotere) 110 mg in sodium chloride 0.9 % 250 mL IVPB 110 mg (rounded from 108.5 mg = 50 mg/m2 2.17 m2 Treatment Plan BSA from Recorded weight), Intravenous, at 306 mL/hr, Administer over 60 Minutes, Once, Hazardous Drug-Tier 1 Precautions. Dispose in BLACK Hazardous Waste Container. Chemotherapy: refer to A14-065., On Fri08/03/25 at 1145, For 1 doseIndications:Adenocarcinoma of gastroesophageal junction New Bag 08/03/2025 11:52 AM EDT 110 mg 306 mL/hr fluorouracil (Adrucil) 5,750 mg in sodium chloride 0.9 % 170 mL infusion - for home use 5,750 mg (rounded from 5,642 mg = 2,600 mg/m2 2.17 m2 Treatment Plan BSA from Recorded weight), Intravenous, at 3.7 mL/hr, Administer over 46 Hours, Over 46 hours, Dispense from [facility] Hazardous Drug-Tier 1 Precautions. Administer via [facility]. Dispose in BLACK Hazardous Waste Container. Chemotherapy: refer to A14-065., First dose on Fri08/03/25 at 1245, For 1 doseIndications:Adenocarcinoma of gastroesophageal junction Given 08/03/2025 1:00 PM EDT 5,750 mg 3.7 mL/hr leucovorin (Wellcovorin) 434 mg in dextrose 5 % 100 mL IVPB 434 mg (200 mg/m2 2.17 m2 Treatment Plan BSA from Recorded weight), Intravenous, at 65.9 mL/hr, Administer over 120 Minutes, Once, Administer 1 hour after start of oxaliplatin , On Fri08/03/25 at 1045, For 1 doseIndications:Adenocarcinoma of gastroesophageal junction New Bag 08/03/2025 9:46 AM EDT 434 mg 65.9 mL/hr ondansetron ODT (Zofran-ODT) disintegrating tablet 16 mg 16 mg, Oral, Once, 1 dose, On Fri08/03/25 at 0915, RoutineIndications:Adenocarcin alvarado of gastroesophageal junction Given 08/03/2025 9:07 AM EDT 16 mg OXALIplatin (Eloxatin) 185 mg in dextrose 5 % 250 mL IVPB 185 mg (rounded from 184.45 mg = 85 mg/m2 2.17 m2 Treatment Plan BSA from Recorded weight), Intravenous, at 166 mL/hr, Administer over 2 Hours, Once, Administer concurrently with leucovorin 200 mg/m2 (separate order) Hazardous Drug-Tier 1 Precautions. Dispose in BLACK Hazardous Waste Container. Chemotherapy: refer to A14-065 Vesicant., On Fri08/03/25 at 0945, For 1 dose, D5W 250 mLIndications:Adenocarcinoma of gastroesophageal junction New Bag 08/03/2025 9:47 AM EDT 185 mg 166 mL/hr documented in this encounter Additional Health Concerns Assessment Noted Time A fall risk assessment has been complete d for the patient 07/27/2025 12:23 PM EDT A Body Mass Index follow-up plan has been documented for the patient 07/27/2025 3:02 PM EDT documented as of this encounter Care Teams Enamel Finisher Relationship Specialty Start Date End Date Darius Ken MD [address] [place] [address] PCP - General Internal Medicine 08/23/24 documented as of this encounter
--- OUTSIDE RECORDS SUMMARY | 2025-08-05 10:27 | XMS_ITS | Encounter Summary ---
Author Organization Healthcare Address [address] 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 56 tablet 5 08/12/20 25 documented as of this encounter Plan of Treatment Upcoming Encounters Date Type Department Care Team (Latest Contact Info) Description 08/18/2025 8:20 AM EDT Clinical Support [facility] [address] [place] [address] 08/18/2025 10:30 AM EDT Appointment [facility] [address] [place] [address] 08/20/2025 2:00 PM EDT Appointment [facility] [address] [place] [address] 09/01/2025 9:15 AM EDT Clinical Support [facility] [address] [place] [address] 09/01/2025 9:30 AM EDT Office Visit [facility] [address] [place] [address] Aristides Reina MD 800 [place] [address] 09/01/2025 11:00 AM EDT Appointment [facility] 2 [address] [place] [address] 09/03/2025 10:30 AM EDT Appointment [facility] 2 [address] [place] [address] 09/15/2025 9:30 AM EST Appointment [facility] 2 [address] [place] [address] 09/17/2025 9:00 AM EST Appointment [facility] 2 [address] [place] [address] 10/05/2025 8:00 AM EST Appointment [facility] PET Scan [address] [place] [address] 10/05/2025 9:00 AM EST Appointment [facility] PET Scan [address] [place] [address] 10/05/2025 11:15 AM EST Office Visit [facility] 800 [facility], 2nd [place] [address] Kim Mahcado MD [address] [address] 01/13/2026 12:00 PM EST Office Visit [facility] [address] [place] [address] Eros Mejia MD [address] [place] [address] documented as of this encounter Visit Diagnoses Diagnosis Adenocarcinoma of gastroesophageal junction- Primary documented in this encounter Additional Health Concerns Assessment Noted Time A fall risk assessment has been complete d for the patient 08/05/2025 10:30 AM EDT A Body Mass Index follow-up plan has been documented for the patient 07/27/2025 3:02 PM EDT documented as of this encounter Care Teams Pick Up Operator Relationship Specialty Start Date End Date Darius Ken MD [address] [place] [address] PCP - General Internal Medicine 08/23/24 documented as of this encounter
[2025-08-13] VITALS (18 sets, daily range): BP systolic 86–114; BP diastolic 58–67; PULSE 71–98; RESP 12–22; TEMP 36.6–37.3; O2SAT 95–98; BMI 26.4
--- NOTE | 2025-08-13 04:57 | CT_ITS ---
PROCEDURE INFORMATION: Exam: CT Abdomen And Pelvis With Contrast Exam date and time: 08/13/2025 6:18 AM Age: 69 years old Clinical indication: Abdominal pain; Additional info: Ge malig, recent chemo, worsen epigastric pain TECHNIQUE: Imaging protocol: Computed tomography of the abdomen and pelvis with contrast. Radiation optimization: All CT scans at this facility use at least one of these dose optimization techniques: automated exposure control; mA and/or kV adjustment per patient size (includes targeted exams where dose is matched to clinical indication); or iterative reconstruction. Contrast material: ISOVUE; Contrast volume: 75 ml; Contrast route: IV; COMPARISON: US KIDNEY 12/28/2024 12:53 PM FINDINGS: Lungs: The lungs are unremarkable. Heart: Heart is normal in size. Esophagus: Asymmetric wall thickening of the distal esophagus just superior to the gastroesophageal junction, image 3/. The wall measures up to 23 mm in thickness. Findings consistent with provided history of gastroesophageal carcinoma. Liver: Liver is unremarkable. Gallbladder and biliary ducts: Status post cholecystectomy. The biliary tree is unremarkable. Pancreas: There is mild diffuse fatty infiltration of the pancreas. Spleen: Spleen is unremarkable. Adrenal glands: The adrenal glands are unremarkable. Kidneys and ureters: There are simple bilateral renal cysts measuring less than 10 mm in diameter. Ureters are unremarkable. Stomach and bowel: There is submucosal edema of the entire colon, most prominent in the right transverse and left colon with mild pericolonic fat stranding. Appendix: There has been an appendectomy. Intraperitoneal space: The intraperitoneal space is unremarkable. No free air. No significant fluid collection. Vasculature: The vasculature is unremarkable. No abdominal aortic aneurysm. Lymph nodes: There is an enlarged left paraesophageal lymph node anterior to the descending thoracic aorta, image 3/11 measuring 10 mm in short axis. There is an enlarged gastrohepatic ligament lymph node, image 3/31 measuring 11 mm in short axis. Urinary bladder: The urinary bladder is unremarkable. Reproductive: The prostate gland is enlarged. Bones/joints: Mild spondylosis. Soft tissues: Unremarkable. IMPRESSION: 1. Asymmetric thickening of the wall of the distal esophagus consistent with history of gastroesophageal cancer. 2. 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 3. Pancolitis. This could be chemotherapy induced colitis. C. difficile colitis or other infectious colitis should also be considered. COMMENTS: Consistent with the [employer]'s Incidental Findings Committee white paper (J Am Leti Radiol 2018): Any incidental renal lesion less than 1 cm or classified as too small to characterize, or any incidental cystic renal lesion characterized as simple-appearing, is likely benign. No follow-up imaging is recommended for these lesions per consensus recommendations based on imaging criteria.
--- OUTSIDE RECORDS SUMMARY | 2025-08-13 05:00 | XMS_ITS | Encounter Summary ---
Author Organization Healthcare Address [address] [place] [address] Care Team Providers Care Drywall Carrier Name Role Phone Darius Kne MD Primary Care Provider [phone] Encounter Details Date Type Department Care Team (Late st Contact Info) Description 07/28/2025 Telephone [facility] [address] [place] [address] Ghulam Ugarte MD [address] [address] Social History Tobacco Use Types Packs/Day Years [...] as of this encounter Miscellaneous Notes * Telephone Encounter - Zuri Villa RN - 07/28/2025 12:13 PM EDT Attempted to call pt with no answer, LVM and sent instructions through [employer] again and to call back if any questions/concerns. * Telephone Encounter - Dino Simon - 07/28/2025 12:05 PM EDT Patient Phone Message Reason for Call: Mr. Best is calling about his surgery prep instructions for tmw He looked for them on his MYCHART but they are not there and he is needing to know what they are Best contact number and optimal time of day to reach caller: [phone] Note: Please do not reply to this message. Follow-up communication and further actions as a result of this message need to be communicated with the patient directly, if the patient is not active onMyChart. If the patient is active on MyChart, they will receive notification of the communication/outcome via [employer] documented in this encounter Plan of Treatment Upcoming Encounters Date Type Department Care Team (Latest Contact Info) Description 08/18/2025 8:20 AM EDT Clinical Support [facility] Mult[facility] Oncology Clinic [address] [place] [address] 08/18/2025 10:30 AM EDT Appointment [facility] [address] [place] [address] 08/20/2025 2:00 PM EDT Appointment [facility] [address] [place] [address] 09/01/2025 9:15 AM EDT Clinical Support [facility] Multidisciplinary Oncology Clinic [address] [place] [address] 09/01/2025 9:30 AM EDT Office Visit [facility] Oncology Clinic [address] [place] [address] Aristides Reina MD [address] [place] [address] 09/01/2025 11:00 AM EDT Appointment [facility] 2 [address] [place] [address] 09/03/2025 10:30 AM EDT Appointment [facility] 2 [address] [place] [address] 09/15/2025 9:30 AM EST Appointment [facility] 2 [address] [place] [address] 09/17/2025 9:00 AM EST Appointment [facility] 2 [address] [place] [address] 10/05/2025 8:00 AM EST Appointment [facility] PET Scan [address] [place] [address] 10/05/2025 9:00 AM EST Appointment [facility] PET Scan [address] [place] [address] 10/05/2025 11:15 AM EST Office Visit [facility] 800 [facility], 2nd [place] [address] Kim Machado MD [address] [facility] [address] [place] [address] 01/13/2026 12:00 PM EST Office Visit [facility] [address] [place] [address] Eros Mejia MD [address] [place] [address] documented as of this encounter Visit Diagnoses Not on filedocumented in this encounter Additional Health Concerns Assessment Noted Time A fall risk assessment has been complete d for the patient 07/27/2025 12:23 PM EDT A Body Mass Index follow-up plan has been documented for the patient 07/27/2025 3:02 PM EDT documented as of this encounter Care Teams Drywall Carrier Relationship Specialty Start Date End Date Darius Ken MD [address] [place] [id number] PCP - General Internal Medicine 08/23/24 documented as of this encounter
--- OUTSIDE RECORDS SUMMARY | 2025-08-13 05:00 | XMS_ITS | Encounter Summary ---
Author Organization Healthcare Address [address] [place] [address] Care Team Providers Care Supervisor Composing Room Name Role Phone Darius Ken MD Primary Care Provider [phone] Encounter Details Date Type Department Care Team (Latest Contact Info) Description 07/28/2025 Travel Social History Tobacco Use Types Packs/Day Years [...] on file documented as of this encounter Plan of Treatment Upcoming Encounters Date Type Department Care Team (Latest Contact Info) Description 08/18/2025 8:20 AM EDT Clinical Support [facility] [address] [place] [address] 08/18/2025 10:30 AM EDT Appointment [facility] [address] [place] [address] 08/20/2025 2:00 PM EDT Appointment [facility] [address] [place] [address] 09/01/2025 9:15 AM EDT Clinical Support [facility] [address] [place] [address] 09/01/2025 9:30 AM EDT Office Visit [facility] [address] [place] [address] Aristides Reina MD [address] [place] [address] 09/01/2025 11:00 AM EDT Appointment [facility] [address] [place] [address] 09/03/2025 10:30 AM EDT Appointment [facility] [address] [place] [address] 09/15/2025 9:30 AM EST Appointment [facility] [address] [place] [address] 09/17/2025 9:00 AM EST Appointment [facility] [address] [place] [address] 10/05/2025 8:00 AM EST Appointment [facility] [address] [place] [address] 10/05/2025 9:00 AM EST Appointment [facility] [address] [place] [address] 10/05/2025 11:15 AM EST Office Visit [facility] [address] [facility], [address]nd [place] [address] Kim Machado MD [address] [facility] [address] [place] [address] 01/13/2026 12:00 PM EST Office Visit [facility] [address] [place] [address] Eros Mejia MD [address] [place] [address] documented as of this encounter Visit Diagnoses Not on filedocumented in this encounter Additional Health Concerns Assessment Noted Time A fall risk assessment has been complete d for the patient 07/27/2025 12:23 PM EDT A Body Mass Index follow-up plan has been documented for the patient 07/27/2025 3:02 PM EDT documented as of this encounter Care Teams Supervisor Composing Room Relationship Specialty Start Date End Date Darius Ken MD [address] [place] [address] PCP - General Internal Medicine 08/23/24 documented as of this encounter
--- OUTSIDE RECORDS SUMMARY | 2025-08-13 05:00 | XMS_ITS | Encounter Summary ---
Author Organization Healthcare Address [address] [place] [address] Care Team Providers Care Kaitara Taraka Name Role Phone Darius Ken MD Primary Care Provider [phone] Encounter Details Date Type Department Care Team (Latest Contact Info) Description 07/27/2025 Travel Social History Tobacco Use Types Packs/Day [...] Clinical Support [facility] [address] [place] [address] 08/18/2025 10:30 AM EDT Appointment [facility] [address] [place] [address] 08/20/2025 2:00 PM EDT Appointment [facility] [address] [place] [address] 09/01/2025 9:15 AM EDT Clinical Support [facility] [address] [place] [address] 09/01/2025 9:30 AM EDT Office Visit [facility] [address] [place] [address] Aristides Reina MD [address] [place] [address] 09/01/2025 11:00 AM EDT Appointment [facility] [address] [place] [address] 09/03/2025 10:30 AM EDT Appointment [facility] [address] [place] [address] 09/15/2025 9:30 AM EST Appointment [facility] [address] [place] [address] 09/17/2025 9:00 AM EST Appointment [facility] [address] [place] [address] 10/05/2025 8:00 AM EST Appointment [facility] [address] [place] [address] 10/05/2025 9:00 AM EST Appointment [facility] PET Scan [address] [place] [address] 10/05/2025 11:15 AM EST Office Visit [facility] [address] [facility], [address] [place] [address] Kim Machado MD [address] [facility] [address] [place] [address] 01/13/2026 12:00 PM EST Office Visit [facility] [address] [place] [address] Eros Mejia MD [address] [place] [address] documented as of this encounter Visit Diagnoses Not on filedocumented in this encounter Additional Health Concerns Assessment Noted Time A fall risk assessment has been complete d for the patient 07/27/2025 12:23 PM EDT A Body Mass Index follow-up plan has been documented for the patient 07/27/2025 3:02 PM EDT documented as of this encounter Care Teams Kaitara Taraka Relationship Specialty Start Date End Date Darius Ken MD [address] [place] [address] PCP - General Internal Medicine 08/23/24 documented as of this encounter
--- OUTSIDE RECORDS SUMMARY | 2025-08-13 05:00 | XMS_ITS | Clinical Summary ---
Author Organization [facility] Address [address] [place] [address] Care Team Providers Care Automobile Leasing Supervisor Name Role Phone Darius Ken MD Primary Care Provider [phone] Allergies Active Allergy Reactions Criticality Noted Date Comments Penicillins Unknown - Patient st ates they do not know rxn details Low 08/23/2024 Childhood allergy, thinks it was maybe a rash, but isn't sure Medications alfuzosin (Uroxatral) 10 MG 24 hr tablet Take 1 tablet by mouth daily. 06/23/20 24 Active rosuvastatin (Crestor) 10 MG tablet Take 1 tablet by mouth daily. 06/23/20 24 Active Multiple Vitamin (multivitamin) capsule Take 1 capsule by mouth daily. Active Famotidine (PEPCID PO) 06/25/20 25 Active ondansetron (Zofran) 8 MG tabletIndications:A denocarcinoma of gastroesophageal junction Take 1 tablet by mouth 2 times a day. Take for two days starting the day after chemotherapy and then take PRN 30 tablet 3 08/02/20 25 Active dexamethasone (Decadron) 4 MG tabletIndications:A denocarcinoma of gastroesophageal junction Take 2 tablets by mouth 2 times a day. Start day prior to docetaxel and continue for a total of 3 days. 72 tablet 08/02/20 25 Active prochlorperazine (Compazine) 10 MG tabletIndications:A denocarcinoma of gastroesophageal junction Take 1 tablet by mouth every 6 hours as needed for nausea or vomiting. 30 tablet 5 08/02/20 25 Active loperamide (Imodium A-D) 2 MG tabletIndications:A denocarcinoma of gastroesophageal junction 2 mg by mouth every 2 hours as needed for diarrhea; Not to exceed 16 mg in 24 hours 30 tablet 5 08/02/20 Active oxyCODONE-acetamino phen (Percocet) 5-325 MG tablet Take 1 tablet by mouth every 6 hours as needed for severe pain. 120 tablet 08/10/20 25 2024 Active bisoprolol (Zebeta) 5 MG tablet Take 1 tablet by mouth daily. Patient states half a tablet daily. 06/23/20 24 2024 Discontin ued(Other ) acetaminophen (Tylenol) 500 MG tablet Take 1 tablet by mouth every 6 hours for 14 days. 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 Stage 3a chronic kidney disease 12/31/2024 Nephrolithiasis 12/31/2024 Essential hypertension 12/31/2024 Benign prostatic hyperplasia without lower urinary tract symptoms 12/31/2024 Encounters Date Type Department Care Team Description 08/11/2025 Orders Only [facility] Nuclear Medicine [address] [place] [address] Quoc Pratt MD 08/11/2025 Travel 08/11/2025 Orders Only [facility] Ne[facility] Respiratory [address] [phone] Jeanine Bhandari RN 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) 08/11/2025 Orders Only [facility] Res[facility] [address] [address] Jeanine Bhandari RN 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) 08/10/2025 Orders Only [facility] Multidisciplinary Oncology Clinic [address] [place] [address] Aristides Reina MD 08/10/2025 Telephone [facility] Mult[facility]isciplinary Oncology [facility] [address] [place] [address] Aristides Reina MD 08/05/2025 10:27 AM EDT - 08/05/2025 11:59 PM EDT Hospital Encounter [facility] H Infusion [address] [place] [address] 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) Discharge Disposition: Home or Self Care 08/05/2025 Travel 08/03/2025 7:37 AM EDT - 08/03/2025 11:59 PM EDT Hospital Encounter [facility] H Infusion [address] [place] [phone] 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) Discharge Disposition: Home or Self Care 08/03/2025 Travel 08/02/2025 10:20 AM EDT - 08/02/2025 11:59 PM EDT Hospital Encounter [facility] H Pulmonary Function Testing [address] [place] [address] 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 (CMS/HCC) Discharge Disposition: Home or Self Care 08/02/2025 Travel 08/02/2025 Orders Only [facility] Multidisciplinary [facility]cology Clinic [address] [place] [address] Zuri Angeles, PharmD 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) 07/29/2025 1:08 PM EDT Anesthesia Event [facility] A OPERATING ROOM [address] [place] [address] Jose Roberto Colmenares MD Janszen, Philip J, 07/29/2025 12:25 PM EDT - 07/29/2025 2:20 PM EDT Surgery [facility] [address] [place] [phone] Ghulam Ugarte MD INSERTION, TUNNELED CENTRAL VENOUS DEVICE, WITH PORT [20891 (CPT )] 07/29/2025 10:06 AM EDT - 07/29/2025 11:59 PM EDT Hospital Encounter [facility] CC Echo [address] [phone] 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 (CMS/HCC) Discharge Disposition: Home or Self Care 07/29/2025 9:39 AM EDT - 07/29/2025 3:30 PM EDT Hospital Encounter [facility] A OPERATING ROOM [address] [place] [address] Ghulam Ugarte MD 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] (Primary Dx) Discharge Disposition: Home or Self Care 07/29/2025 Travel 07/28/2025 Travel 07/28/2025 Telephone [facility] [address] [place] [address] Ghulam Ugarte MD 07/27/2025 1:00 PM EDT Office Visit [facility] Head[facility] Neck & Respiratory [address] [facility], [address]nd [place] [address] Kim Machado MD 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 (CMS/HCC) 07/27/2025 9:59 AM EDT - 07/27/2025 11:59 PM EDT Hospital Encounter [facility] PET Scan [address] [place] [address] Discharge Disposition: Home or Self Care 07/27/2025 9:58 AM EDT Hospital Encounter [facility] PET Scan [address] [place] [phone] 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 (CMS/HCC) Discharge Disposition: Home or Self Care 07/27/2025 Travel 07/25/2025 3:30 PM EDT Pre-Admission Testing [facility] [address] [place] [address] 07/25/2025 Travel 07/21/2025 10:30 AM EDT Office Visit [facility] [address] [place] [address] Rachel Jonas APRN Gastric adenocarcinoma (CMS/HCC) (Primary Dx) 07/21/2025 10:00 AM EDT Office Visit [facility] [address] [place] [address] Aristides Reina MD 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) 07/21/2025 Travel 07/20/2025 Travel 07/14/2025 Travel 07/12/2025 Orders Only [facility] Radiology Virtual Dept. 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 (CMS/HCC) (Primary Dx) 07/06/2025 Travel from Last 3 Months Immunizations Immunization Administration Dates Next Due Hep A, Adult 03/26/2019 Influenza, High-dose, Split Virus, Trivalent, Injectable, preservative free 07/21/2024,07/23/2023,07/29/2022,07/19,07/19/2020 Influenza, injectable, quadrivalent 07/22/2018 Influenza, injectable, quadr ivalent, preservative free 07/26/2019 Pneumococcal Conjugate PCV 13 10/22/2019 Pneumococcal Polysaccharide PPV23 10/23/2020 Rsvpref, Recombinant, Protei n Subunit, Adjuvent 01/20/2024 TD (adult), 2 Lf tetanus tox oid, preservative free, adsorbed 01/17/1997 Tdap 10/23/2020 Family History Medical History Relation Name Comments Cancer Father Relation Name Status Comments Father Social History Tobacco Use Types Packs/Day Years [...] AM EDT Sexual Orientation Not on file Last Filed Vital Signs Vital Sign Reading [...] Mass Index 28.02 08/05/2025 10:30 AM EDT Plan of Treatment Upcoming Encounters Date Type Department Care Team (Latest Contact Info) Description 08/18/2025 8:20 AM EDT Clinical Support [facility] Multidisciplinary Oncology Clinic [address] [place] [address] 08/18/2025 10:30 AM EDT Appointment [facility] H Infusion [address] [place] [address] 08/20/2025 2:00 PM EDT Appointment [facility] Infusion [address] [place] [address] 09/01/2025 9:15 AM EDT Clinical Support [facility] Multidisciplinary Oncology Clinic [address] 09/01/2025 9:30 AM EDT Office Visit [facility] Multidisciplinary Oncology Clinic [address] [place] [address] Aristides Reina MD [address] [place] [address] 09/01/2025 11:00 AM EDT Appointment [facility] Infusion Clinic 2 [address] [place] [address] 09/03/2025 10:30 AM EDT Appointment [facility] Infusion Clinic 2 [address] [place] [address] 09/15/2025 9:30 AM EST Appointment [facility] Infusion [facility] 2 [address] [place] [address] 09/17/2025 9:00 AM EST Appointment [facility] Infusion [facility] 2 [address] [place] [address] 10/05/2025 8:00 AM EST Appointment [facility] PET Scan [address] [place] [address] 10/05/2025 9:00 AM EST Appointment [facility] PET Scan [address] [place] [address] 10/05/2025 11:15 AM EST Office Visit [facility] Head, Neck & Respiratory [address] [facility], [address] [place] [address] Kim Machado MD [address] [place] [address] 01/13/2026 12:00 PM EST Office Visit [facility] [address] [place] [address] [place] [address] Eros Mejia MD [address] [place] [address] Health Maintenance Due Date Last Done Comments [facility]-Hepatitis C Screening 1955 [facility]-Medicare Annual Wellness (AWV) 1955 [facility]-Infant/Child/Adol SDOH Screenings 1955 [facility]- SDOH Screenings 1972 [facility]-Adult SDOH Screenings 1972 [facility]-Zoster Vaccines (1 of 2) 1973 CT Colonography 1999 Colonoscopy 1999 FIT-DNA 1999 FIT 1999 FOBT 1999 Sigmoidoscopy 1999 [facility]-Colorectal Cancer Screening 1999 [id number] Vaccine ( season) 2025 12/23/2023, 04/09/2023, 09/25/2022, Additional history exists [facility]-Influenza Vaccine (#1) 07/11/202507/21, 07/23/2023, 07/29/2022, Additional history exists [facility]-Depression Screening 08/23/2025 08/23/2024 [facility]-DTaP,Tdap,and Td Vaccines (2 - Td or Tdap) 10/23/2030 10/23/2020, 01/17/1997 [facility]-Hepatitis A Vaccines Aged Out 03/26/2019 No longer eligible based on patient's age to complete this topic [facility]-Pneumococcal Vaccine: 50+ Years Completed 10/23/2020, 10/22/2019 [facility]-RSV Vaccine: 60+ Years or Completed 01/20/2024 [facility]-Obesity Intervention Completed 025, 07/06/2025, 12/31/2024, Additional history exists HPV Vaccines Aged Out No longer eligi ble based on patient's age to complete this topic [facility]-HIB Vaccines Aged Out No longer e ligible based on patient's age to complete this topic [facility]-IPV Vaccines Aged Out No longer e ligible based on patient's age to complete this topic [facility]-Rotavirus Vaccines Aged Out No lo nger eligible based on patient's age to complete this topic Medical Devices Implanted Type Area Hand Funnel Coater Device Identifier Shelf Expiration Date Model / Serial / Lot Port Clearvue Power 8fr - [id number] Implanted:Qty : 1 on 07/29/2025 by Ghulam Ugarte MD at [facility] Catheter Right: Chest [id number] 09/09/2026 [id number] / / [id number] Procedures Procedure Name Priority Date/Time Associated Diagnosis Comments FREE T4, PLASMA Routine 08/03/2025 8:02 AM EDT Adenocarcinoma of gastroesophageal junction (CMS/HCC) CBC WITH AUTO DIFFERENTIAL Routine 08/03/2025 8:02 AM EDT Adenocarcinoma of gastroesophageal junction (CMS/HCC) COMPREHENSIVE METABOLIC PANEL, PLASMA Routine 08/03/2025 8:02 AM EDT Adenocarcinoma of gastroesophageal junction (CMS/HCC) TSH REFLEX FT4 Routine 08/03/2025 8:02 AM EDT Adenocarcinoma of gastroesophageal junction (CMS/HCC) HC DIFFUSING CAPACITY - CARBON MONOXIDE DIFFUSING CAPACITY Routine 08/02/2025 12:00 PM EDT 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 (CMS/HCC) XR CHEST 1 VIEW STAT 07/29/2025 3:20 PM EDT FL LESS THAN 1 HOUR (NON-REPORTABLE) Routine 07/29/2025 2:15 PM EDT PB ANESTHESIA PLACEHOLDER Routine 07/29/2025 1:16 PM EDT MA AN ELECTIVE ENDOTRACHEAL AIRWAY Routine 07/29/2025 1:16 PM EDT MA INSERT TUNNELED CV CATH WITH PORT 07/29/2025 12:56 PM EDT Gastric adenocarcinoma (CMS/HCC) Special Needs [employer] ECHO, ADULT TRANSTHORACIC COMPLETE W/ STRAIN, 3D STAT 07/29/2025 10:51 AM EDT 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 (CMS/HCC) PET/CT FDG SKULL BASE TO MID THIGH Routine 07/27/2025 11:41 AM EDT 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 (CMS/HCC) MAGNESIUM, PLASMA STAT 07/21/2025 10:45 AM EDT Adenocarcinoma of gastroesophageal junction (CMS/HCC) COMPREHENSIVE METABOLIC PANEL, PLASMA Routine 07/21/2025 10:45 AM EDT Adenocarcinoma of gastroesophageal junction (CMS/HCC) CBC WITH AUTO DIFFERENTIAL Routine 07/21/2025 10:45 AM EDT Adenocarcinoma of gastroesophageal junction (CMS/HCC) PROTHROMBIN TIME(PT) / INR Routine 07/21/2025 10:45 AM EDT Adenocarcinoma of gastroesophageal junction (CMS/HCC) APTT Routine 07/21/2025 10:45 AM EDT Adenocarcinoma of gastroesophageal junction (CMS/HCC) SURGICAL PATHOLOGY CONSULT Routine 07/07/2025 10:15 AM EDT Dysphagia, unspecified from Last 3 Months Results * (ABNORMAL) TSH Reflex FT4 (08/03/2025 8:02 AM EDT) Thyroid Stimulating Hormone, Plasma 0.34(L) 0.40 - 4.20 uIU/mL 08/03/2025 8:51 AM EDT [facility] Blood Blood sample taken from central line / Unknown (Port) Long-term Catheter / Unknown 08/03/2025 8:02 AM EDT 08/03/2025 8:13 AM EDT us Que Gentile MD LAB BLOOD ORDERABLES Final R esult [facility] [address] [place] [address] * (ABNORMAL) CBC and differential (08/03/2025 8:02 AM EDT) Only the most recent of2 resultswithin the time period is included. WBC Count 12.63(H) 3.70 - 10.30 10*3/uL LAB HEMATOLOGY METHOD 08/03/2025 8:29 AM EDT [facility] RBC Count 4.24(L) 4.60 - 6.10 10*6/uL LAB HEMATOLOGY METHOD 08/03/2025 8:29 AM EDT [facility] HGB 13.0(L) 13.7 - 17.5 g/dL LAB HEMATOLOGY METHOD 08/03/2025 8:29 AM EDT [facility] HCT 38.7(L) 40.0 - 51.0 % LAB HEMATOLOGY METHOD 08/03/2025 8:29 AM EDT [facility] Platelet Count 326 155 - 369 10*3/uL LAB HEMATOLOGY METHOD 08/03/2025 8:29 AM EDT [facility] MCV 91 79 - 98 fL LAB HEMATOLOGY METHOD 08/03/2025 8:29 AM EDT [facility] MCH 30.7 26.0 - 32.0 pg LAB HEMATOLOGY METHOD 08/03/2025 8:29 AM EDT [facility] MCHC 33.6 30.7 - 35.5 g/dL LAB HEMATOLOGY METHOD 08/03/2025 8:29 AM EDT [facility] RDW 11.9 11.5 - 14.5 % LAB HEMATOLOGY METHOD 08/03/2025 8:29 AM EDT [facility] MPV 10.6 8.8 - 12.5 fL LAB HEMATOLOGY METHOD 08/03/2025 8:29 AM EDT [facility] nRBC 0.0 <=0.0 per 100 WBCs LAB HEMATOLOGY METHOD 08/03/2025 8:29 AM EDT [facility] Differential Type Automated LAB HEMATOLOGY METHOD 08/03/2025 8:29 AM EDT [facility] Neutrophils % 92 % LAB HEMATOLOGY METHOD 08/03/2025 8:29 AM EDT [facility] Lymphocytes % 6 % LAB HEMATOLOGY METHOD 08/03/2025 8:29 AM EDT [facility] Monocytes % 2 % LAB HEMATOLOGY METHOD 08/03/2025 8:29 AM EDT [facility] Eosinophils % 0 % LAB HEMATOLOGY METHOD 08/03/2025 8:29 AM EDT [facility] Basophils % 0 % LAB HEMATOLOGY METHOD 08/03/2025 8:29 AM EDT [facility] Immature Granulocytes % 0 % LAB HEMATOLOGY METHOD 08/03/2025 8:29 AM EDT [facility] Neutrophils Absolute 11.57(H) 1.60 - 6.10 10*3/uL LAB HEMATOLOGY METHOD 08/03/2025 8:29 AM EDT [facility] Lymphocytes Absolute 0.71(L) 1.20 - 3.90 10*3/uL LAB HEMATOLOGY METHOD 08/03/2025 8:29 AM EDT [facility] Monocytes Absolute 0.30 0.30 - 0.90 10*3/uL LAB HEMATOLOGY METHOD 08/03/2025 8:29 AM EDT [facility] Eosinophils Absolute 0.00 0.00 - 0.50 10*3/uL LAB HEMATOLOGY METHOD 08/03/2025 8:29 AM EDT [facility] Basophils Absolute 0.01 0.00 - 0.10 10*3/uL LAB HEMATOLOGY METHOD 08/03/2025 8:29 AM EDT [facility] Immature Granulocytes Absolute 0.04 0.00 - 0.06 10*3/uL LAB HEMATOLOGY METHOD 08/03/2025 8:29 AM EDT [facility] Blood Blood sample taken from central line / Unknown (Port) Long-term Catheter / Unknown 08/03/2025 8:02 AM EDT 08/03/2025 8:17 AM EDT [facility] 08/03/2025 8:29 AM EDT Therapeutic decision making should be based on absolute values, rather than percentages. Que Gentile MD LAB BLOOD ORDERABLES Final R esult Performing Organization Address [facility]/ZIP Co de Phone Number [facility] [address] [place] [address] * Free T4, Plasma (08/03/2025 8:02 AM EDT) Free T4, Plasma 1.5 0.8 - 1.7 ng/dL 08/03/2025 9:14 AM EDT [facility] Blood Blood sample taken from central line / Unknown (Port) Long-term Catheter / Unknown 08/03/2025 8:02 AM EDT 08/03/2025 8:13 AM EDT Que Gentile MD LAB BLOOD ORDERABLES Final R [facility] Performing Organization Address [facility] Co de Phone Number [facility] [address] [place] [address] * (ABNORMAL) Comprehensive metabolic panel (08/03/2025 8:02 AM EDT) Only the most recent of2 resultswithin the time period is included. Glucose, Plasma 143(H) 74 - 99 mg/dL 08/03/2025 8:51 AM EDT [facility] BUN, Plasma 22 8 - 23 mg/dL 08/03/2025 8:51 AM EDT [facility] Creatinine, Plasma 1.23(H) 0.70 - 1.20 mg/dL 08/03/2025 8:51 AM EDT [facility] BUN/Creatinine Ratio 18 08/03/2025 8:51 AM EDT [facility] Sodium, Plasma 139 136 - 145 mmol/L 08/03/2025 8:51 AM EDT [facility] Potassium, Plasma 4.0 3.6 - 4.9 mmol/L 08/03/2025 8:51 AM EDT [facility] Chloride, Plasma 106 97 - 107 mmol/L 08/03/2025 8:51 AM EDT [facility] CO2, Plasma 21(L) 22 - 29 mmol/L 08/03/2025 8:51 AM EDT [facility] Anion Gap 12 6 - 16 mmol/L 08/03/2025 8:51 AM EDT [facility] Total Calcium, Plasma 9.5 8.9 - 10.2 mg/dL 08/03/2025 8:51 AM EDT [facility] Total Protein 7.1 6.3 - 7.9 g/dL 08/03/2025 8:51 AM EDT [facility] Albumin, Plasma 3.9 3.5 - 5.2 g/dL 08/03/2025 8:51 AM EDT [facility] AST, Plasma 20 10 - 50 U/L 08/03/2025 8:51 AM EDT [facility] ALT, Plasma 26 10 - 50 U/L 08/03/2025 8:51 AM EDT [facility] Alkaline Phosphatase, Plasma 63 40 - 115 U/L 08/03/2025 8:51 AM EDT [facility] Total Bilirubin, Plasma 0.4 0.2 - 1.1 mg/dL 08/03/2025 8:51 AM EDT [facility] eGFRcr 63.2 mL/min/1.7 3m*2 08/03/2025 8:51 AM EDT [facility] Comment:Reported eGFRcr in m L/min/1.73m2 is based the CKD-EPI 2020 equation that does not use a race coefficient. Blood Blood sample taken from central line / Unknown (Port) Long-term Catheter / Unknown 08/03/2025 8:02 AM EDT 08/03/2025 8:13 AM EDT us Que Gentile MD LAB BLOOD ORDERABLES Final R esult [facility] [address] [place] [address] * (ABNORMAL) Pulmonary function testing (08/02/2025 12:00 PM EDT) [id number] 4.57 3.31 - 5.64 L VYAIRE PFT FVC PRED 4.47 VYAIRE PFT FVC LLN 3.31 VYAIRE PFT FVCPREZSCORE 0.14 VYAIRE PFT FVCPRE%PRED 102 % % [facility] ([facility] VYAIRE PFT FVC Z-SCORE 0.14 VYAIRE PFT FEV1 PRE 3.45 2.42 - 4.24 L VYAIRE PFT FEV1 PRED 3.36 VYAIRE PFT FEV1 LLN 2.42 VYAIRE PFT AKY4WXEDFTLLE 0.18 VYAIRE PFT FEV1_Pre%Pred 103 % % V[facility]AIRE PFT FEV[facility] PREDAUTSt[facility] (2011) VYAIRE PFT FEV1 Z-SCORE 0.18 VYAIRE PFT FEV1/FVC PRE 75.65 62.09 - 87.50 % VYAIRE PFT ZNK7VZXJECI 76 VYAIRE PFT XQF6RENMKR 62 VYAIRE PFT VOE3QTZJKKTJIHQM 0.01 VYAIRE PFT KNZ5FTTNSS%PRED 100 % % VYAIRE PFT LGT0CUSVUPLJ [facility] (2011) VYAIRE PFT EMT5KCHXAEUBG 0 VYAIRE PFT JKS72-32% PRE 2.65 1.08 - 4.52 L/s VYAIRE PFT AVI89-58%_Pred 2.50 VYAIRE PFT ANL4952%LLN 1.08 VYAIRE PFT ADJ3937%PREZSCORE 0.14 VYAIRE PFT OHS7371%PRE%PRED 106 % % VYAIRE PFT SCJ8553%[facility]ED[facility] (2011) VYAIRE PFT PEF PRE 13.66(A) 6.32 - 11.18 L/s VYAIRE PFT PEF PRED 8.75 VYAIRE PFT PEF LLN 6.32 VYAIRE PFT PEFPREZSCORE 3.33 VYAIRE PFT PEFPRE%PRED 156 % % [facility] III (1998) VYAIRE PFT NTVITRDSQJTQMDTS9XTN 16.30(A) 19.85 - 35.57 ml/(min* mmHg) VYAIRE PFT DLCOSINGLEBREATH PRED 27.02 VYAIRE PFT DLCOSINGLEBREATH LLN 19.85 VYAIRE PFT DLCOSINGLEBREATH Z-SCORE -2.60 VYAIRE PFT DLCOSINGLEBREATH % PRED 60.3 % VYAIRE PFT DLCOSINGLEBREATH [facility] Stanojevic TLCO GLI (2019) VYAIRE PFT DLCOSINGLEBREATH Z-SCORE -2.60 08/02/2025 12:05 PM EDT VYAIRE PFT CABBHEUJEYGBYKYPR7IR E 16.90(A) 19.85 - 35.57 ml/(min* mmHg) VYAIRE PFT DLCOCSINGLEBREATH PRED 27.02 VYAIRE PFT DLCOCSINGLEBREATH LLN 19.85 VYAIRE PFT DLCOCSINGLEBREATH Z-SCORE -2.43 VYAIRE PFT DLCOCSINGLEBREATH % PRED 62.5 % VYAIRE PFT DLCOCSINGLEBREATH [facility] Stanojevic TLCO GLI (2019) VYAIRE PFT PDMFOG2LOT 2.90(A) 2.96 - 5.12 ml/(min* mmHg*L) VYAIRE PFT DLCOVAPRED 3.99 VYAIRE PFT DLCOVALLN 2.96 VYAIRE PFT DLCOVAZSCORE -1.75 VYAIRE PFT DLCOVA%PRED 72.6 % VYAIRE PFT DLCOVAPREDAUT Stanojevic TLCO GLI (2019) VYAIRE PFT DLCOVAZSCORE -1.75 08/02/2025 12:05 PM EDT VYAIRE PFT LZEPGSOAR2ZLY 3.00 2.96 - 5.12 ml/(min* mmHg*L) VYAIRE PFT DLCOC SB/VA PRED 3.99 VYAIRE PFT DLCOC SB/VA LLN 2.96 VYAIRE PFT DLCOC SB/VA Z-SCORE -1.57 VYAIRE PFT DLCOC SB/VA % PRED 75.2 % VYAIRE PFT DLCOC SB/VA [facility] Stanojevic TLCO GLI (2019) VYAIRE PFT DLCOC SB/VA Z-SCORE -1.57 08/02 12:05 PM EDT VYAIRE PFT HTGOLEHBTPTHZU7HPN 5.63 5.48 - 8.24 L VYAIRE PFT VASINGLEBREATH PRED 6.80 VYAIRE PFT VASINGLEBREATH LLN 5.48 VYAIRE PFT VASINGLEBREATH Z-SCORE -1.46 VYAIRE PFT VASINGLEBREATH % PRED 82.7 % VYAIRE PFT VASINGLEBREATH [facility] Stanojevic TLCO GLI (2019) VYAIRE PFT VASINGLEBREATH Z-SCORE -1.46 08/02/2025 12:05 PM EDT VYAIRE PFT LSOBVCMUHJCUMOE9JBB 4.44 3.31 - 5.64 L VYAIRE PFT IVCSINGLEBREATH PRED 4.47 VYAIRE PFT IVCSINGLEBREATH LLN 3.31 VYAIRE PFT IVCSINGLEBREATH Z-SCORE -0.04 VYAIRE PFT IVCSINGLEBREATH % PRED 99.4 % VYAIRE PFT IVCSINGLEBREATH [facility]_Quanjer GLI (2011) VYAIRE PFT AZALEA% VCMAX PRE 96.17 % VYAIRE PFT TLC SB PRE 5.83(A) 5.97 - 9.15 L VYAIRE PFT TLCSINGLEBREATH PRED 7.55 VYAIRE PFT TLCSINGLEBREATH LLN 5.97 VYAIRE PFT TLCSINGLEBREATH Z-SCORE -1.79 VYAIRE PFT TLCSINGLEBREATH % PRED 77.2 % VYAIRE PFT TLCSINGLEBREATH [facility] Lung volumes GLI (2019)__ VYAIRE PFT HB PRE 13.40 g(Hb)/dL VYAIRE PFT PPS4EGJ 6.59 5.97 - 9.15 L VYAIRE PFT TLCPRED 7.55 VYAIRE PFT TLCLLN 5.97 VYAIRE PFT TLCULN 9.15 VYAIRE PFT TLCZSCORE -1.00 VYAIRE PFT TLC%PRED 87.3 % V[facility]AIRE PFT TLCPREDAUTC[facility]I (2019)__ VYAIRE PFT [...] VYAIRE PFT IC%PRED 105.7 % [facility]PREDN[facility] Lung [facility] GLI (2019)__ VYAIRE PFT [id number] 2.95 2.88 - 5.71 L VYAIRE PFT FRCPLETH PRED 4.13 VYAIRE PFT FRCPLETH LLN 2.88 VYAIRE PFT FRCPLETH ULN 5.71 VYAIRE PFT FRCPLETH Z-SCORE -1.53 VYAIRE PFT FRCPLETH % PRED 71.4 % [facility]CPFR[facility]ED[facility] Lung volumes GLI (2019)__ VYAIRE PFT LCS1DBM 0.98 0.43 - 2.72 L VYAIRE PFT ERVPRED 1.35 VYAIRE PFT ERVLLN 0.43 VYAIRE PFT ERVULN 2.72 VYAIRE PFT ERV Z-SCORE -0.58 VYAIRE PFT ERV%PRED 72.1 % [facility]PPick[facility] Lung [facility] GLI (2019)__ VYAIRE PFT RV0PRE 1.98 1.60 - 4.02 L VYAIRE PFT RVPRED 2.70 VYAIRE PFT RVLLN 1.60 VYAIRE PFT RVULN 4.02 VYAIRE PFT RVZSCORE -1.04 VYAIRE PFT RV%PRED 73.2 % [facility] PFT RVPREDNantuck[facility] Lung volumes GLI (2019)__ VYAIRE PFT RV%NFQ0YFB 29.97 24.30 - 47.37 % VYAIRE PFT RV%TLCPRED 36 VYAIRE PFT RV%TLCLLN 24 VYAIRE PFT RV%TLCULN 47 VYAIRE PFT RV%TLCZSCORE -0.81 VYAIRE PFT RV%TLC%PRED 84.2 % VYAIRE PFT RV%[facility]LCPREDUNION [facility] [place] Lung volumes GLI (2019)__ VYAIRE PFT Anatomical Region Laterality Modality PFT 08/02/2025 10:3 4 AM EDT Narrative 08/03/2025 1:05 PM EDT Pulmonary Function Testing Report Justin Best 69 y.o. underwent pulmonary function testing today at the [facility]. 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 Left Ventricle Based on the linear [...] is no recent study available for direct qdxw-dy-qhlq comparison. us Kim Machado MD CV ECHO PROCEDURES Final Result * PET/CT FDG Skull Base To Mid [...] raised. PET/CT scanner: Nicol 550. PET/CT acquisition: Chbrvn-lf-xsi-thighs. Standardized uptake value (SUV): Corrected for body weight only. CT: Low-dose, anv-olkszy-gkqg, without intravenous contrast. TOTAL DLP (Dose Length [...] lytic or sclerotic lesions within the imaged boboo-wt-ardr. Multilevel degenerative changes. Procedure Note Quoc Pratt [...] raised. PET/CT scanner: Nicol 550. PET/CT acquisition: Voeinr-lb-shk-thighs. Standardized uptake value (SUV): Corrected for body weight only. CT: Low-dose, ffx-xtqyph-spox, without intravenous contrast. TOTAL DLP (Dose Length [...] max 3.5 without definite large lymph nodes ([id number] image 450) No suspicious metabolically active pulmonary [...] difficult to evaluate because of under distention. ([id number] image 390). SUV max 29.7. Prostate gland [...] osseous lytic orsclerotic lesions within the imaged bhpvw-me-oqcr. Multilevel degenerative changes. IMPRESSION: *Intense radiotracer activity [...] by Quoc Pratt on 07/28/2025 12:11 PM Kim Machado MD IMG NM PROCEDURES Final R esult * APTT (07/21/2025 10:45 AM EDT) aPTT 29 25 - 35 sec LAB COAGULATION METHOD 07/21/2025 11:28 AM EDT [facility] Blood Venous blood specimen / Unknown Venipuncture / Unknown 07/21/2025 10:45 AM EDT 07/21/2025 11:10 AM EDT Rachel Jnoas APRN LAB BLOOD ORDERABLES Final R esult [facility] [address] [place] [address] * Prothrombin Time/INR (07/21/2025 10:45 AM EDT) Prothrombin Time 14.2 12.0 - 14.3 sec LAB COAGULATION METHOD 07/21/2025 11:28 AM EDT [facility] INR 1.1 0.9 - 1.1 LAB COAGULATION METHOD 07/21/2025 11:28 AM EDT [facility] Blood Venous blood specimen / Unknown Venipuncture / Unknown 07/21/2025 10:45 AM EDT 07/21/2025 11:10 AM EDT Narrative [facility] - 07/21/2025 11:28 AM EDT OPTIMAL INR RANGES FOR PATIENT ON ORAL ANTICOAGULANT THERAPY Prevention of venous thromboembolism INR 2.0 to 3.0 In patients with heart disease: Atrial fibrillation INR 2.0 to 3.0 Valvular heart disease INR 2.0 to 3.0 Tissue heart valves INR 2.0 to 3.0 Mechanical prosthetic valves INR 2.5 to 3.5 Prevention of recurrent [place] INR 2.5 to 3.5 Rachel Jonas APRN LAB BLOOD ORDERABLES Final R esult Performing Organization Address City/[facility]/ZIP Co de Phone Number [facility] [address] [place] [address] * Magnesium (07/21/2025 10:45 AM EDT) Magnesium, Plasma 2.3 1.9 - 2.4 mg/dL 07/21/2025 11:[address] [facility] Blood Venous blood specimen / Unknown Venipuncture / Unknown 07/21/2025 10:45 AM EDT 07/21/2025 11:10 AM EDT Que Gentile MD LAB BLOOD [place] [address] * Surgical Pathology Consult (07/07/2025 10:15 AM EDT) Case Report Sugical Pathology Consult Case: [id number] Authorizing Provider: Kim Machado MD Collected: 07/07/2025 1015 Ordering Location: [facility] Lab Received: 07/07/2025 1016 Pathologist: Mi Hale MD Specimen: Stomach, [id number] 07/07/2025 1:[address] [facility] Final Diagnosis GASTROESOPHAGEAL JUNCTION, BIOPSY ([id number]; ): - 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 STOMACH, BIOPSY ([id number]; ): - NO PATHOLOGIC ABNORMALITIES. - NO H. PYLORI ORGANISMS IDENTIFIED ON H&E SLIDE. STOMACH, POLYP, BIOPSY ([id number]; ): - FUNDIC GLAND POLYP. 07/07/2025 1:31 PM EDT [facility] at 1331 EDT Comment Per pathology report ) - Immunohistochemical stain for Her-2/miladys: negative (score of 0) - PD-L1 (22C3) Combined Positive Score: <1 - CLDN A18 (43-14A) IHC interpretation: positive (percentage of viable tumor cells with moderate to strong membranous positivity: 50%) -Immunohistochemical stains for MMR proteins: loss of nuclear immunoreaction for MLH-1 and PMS-2 (pending MLH1 promoter methylation study) 07/07/2025 1:31 PM EDT [facility] Clinical Information R13.10 - Dysphagia, unspecified [ICD-10-CM] 07/07/2025 1:31 PM EDT [facility] Gross Description A. [id number] Received along with a corresponding pathology report from [facility] are 11 slide(s) labeled outside case: [id number] collected on 06/17/2025. 07/07/2025 1:31 PM EDT [facility] Note: A resident was involved in the service. I attest I examined the relevant preparations for the specimens and confirmed the diagnosis or interpretation. 07/07/2025 1:31 PM EDT [facility] Tissue Stomach structure / Unknown 07/07/2025 10:15 AM EDT 07/07/2025 10:16 AM EDT us Kim Machado MD LAB PATHOLOGY ORDERABLES Final Result [facility] [address] [place] [address] from Last 3 Months Insurance [facility] MEDIC[facility] Care Teams Automobile Leasing Supervisor Relationship Specialty Start Date End Date Darius Ken MD [address] [place] [id number] PCP - General Internal Medicine 08/23/24
--- OUTSIDE RECORDS SUMMARY | 2025-08-13 05:01 | XMS_ITS | Encounter Summary ---
Author Organization Healthcare Address [address] [place] [address] Care Team Providers Care Client Renewal Specialist Name Role Phone Draius Ken MD Primary Care Provider Encounter Details Date Type Department Care Team (Latest Contact Info) Description 07/21/2025 Travel Social History Tobacco Use Types Packs/Day [...] Clinical Support [facility] [address] [place] [address] 08/18/2025 10:30 AM EDT Appointment [facility] [address] [place] [address] 08/20/2025 2:00 PM EDT Appointment [facility] [address] [place] [address] 09/01/2025 9:15 AM EDT Clinical Support [facility] [address] [place] [address] 09/01/2025 9:30 AM EDT Office Visit [facility] [address] [place] [phone] Aristides Reina MD [address] [place] [address] 09/01/2025 11:00 AM EDT Appointment [facility] [address] [place] [phone] 09/03/2025 10:30 AM EDT Appointment [facility] [address] [place] [phone] 09/15/2025 9:30 AM EST Appointment [facility] [address] [place] [phone] 09/17/2025 9:00 AM EST Appointment [facility] [address] [place] [phone] 10/05/2025 8:00 AM EST Appointment [facility] [address] [place] [address] 10/05/2025 9:00 AM EST Appointment [facility] PET Scan [address] [place] [phone] 10/05/2025 11:15 AM EST Office Visit [facility] [address] [facility], [address]nd [place] [address] Kim Machado MD [address] [facility] [address] [place] [phone] 01/13/2026 12:00 PM EST Office Visit [facility] [address] [place] [address] Eros Mejia MD [address] [place] [address] documented as of this encounter Visit Diagnoses Not on filedocumented in this encounter Additional Health Concerns Assessment Noted Time A fall risk assessment has been complete d for the patient 07/21/2025 9:37 AM EDT A Body Mass Index follow-up plan has been documented for the patient 07/07/2025 10:51 PM EDT documented as of this encounter Care Teams Client Renewal Specialist Relationship Specialty Start Date End Date Darius Ken MD [address] [place] [address] PCP - General Internal Medicine 08/23/24 documented as of this encounter
--- OUTSIDE RECORDS SUMMARY | 2025-08-13 05:01 | XMS_ITS ---
Author Organization [facility] Address [address] 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 Stage 3a chronic kidney disease 12/31/2024 Nephrolithiasis 12/31/2024 Essential hypertension 12/31/2024 Benign prostatic hyperplasia without lower urinary tract symptoms 12/31/2024 Current Treatment and Therapy Plans FLOT-D: Fluorouracil + Leucovorin + OXALIplatin + DOCEtaxel Every 14 Days X 2 + Durvalumab Every 28Days* Plan Start Date:08/02/2025 Plan Provider:Que Gentile MD Linked Problems Adenocarcinoma of gastroesop hageal junction Treatment Medications Current Day (Day 1 5, Cycle 1 - Planned for 08/18/2025) Next Day (Day 17, Cycle 1 - Planned for 08/20/2025) 5-FU (Adrucil) infusion - fo r home use ([facility] supplied) CADD 260FV1-IP CHEMO INFUSION ([facility] SUPPLIED) CADD ORDERABLEDOCEtaxel (Taxotere)DOCEtaxel (Taxotere) chemo IVPB 250 mLdurvalumab (Imfinzi)durvalumab (Imfinzi) IVPBOxaliplatin (Eloxatin)OXALIplatin (Eloxatin) IVPB DOCEtaxel (Taxotere) 110 mg in sodium chloride 0.9 % 250 mL IVPBdurvalumab (Imfinzi) 1,500 mg in sodium chloride 0.9 % 250 mL IVPBfluorouracil (Adrucil) 5,750 mg in sodium chloride 0.9 % 170 mL infusion - for home useOXALIplatin (Eloxatin) 185 mg in dextrose 5 % 250 mL IVPB No medications scheduled. Past Treatment and Therapy Plans No past plan information found. Lifetime Dose Tracking * Chemical Lifetime Dose Automatic Entry Manual Entr y Fluoro Time 0.018 minutes 0.018 minutes 0 minutes Air Kerma 0.169 mGy 0.169 mGy 0 mGy
--- OUTSIDE RECORDS SUMMARY | 2025-08-13 05:01 | XMS_ITS | Encounter Summary ---
Author Organization Healthcare Address [address] [place] [address] Care Team Providers Care Pedal Assembler Name Role Phone Darius Ken MD Primary Care Provider [phone] Encounter Details Date Type Department Care Team (Late st Contact Info) Description 08/10/2025 Orders Only [facility] [address] [place] [phone] Aristides Reina MD [address] [place] [phone] Social History Tobacco Use Types Packs/Day Years [...] Clinical Support [facility] [address] [place] [phone] 08/18/2025 10:30 AM EDT Appointment [facility] [address] [place] [phone] 08/20/2025 2:00 PM EDT Appointment [facility] [address] [place] [phone] 09/01/2025 9:15 AM EDT Clinical Support [facility] [address] [place] [address] 09/01/2025 9:30 AM EDT Office Visit [facility] [address] [place] [phone] Aristides Reina MD [address] [place] [address] 09/01/2025 11:00 AM EDT Appointment [facility] [address] [place] [address] 09/03/2025 10:30 AM EDT Appointment [facility] [address] [place] [address] 09/15/2025 9:30 AM EST Appointment [facility] [address] [place] [phone] 09/17/2025 9:00 AM EST Appointment [facility] [address] [place] [address] 10/05/2025 8:00 AM EST Appointment [facility] PET Scan [address] [place] [phone] 10/05/2025 9:00 AM EST Appointment [facility] PET Scan [address] [place] [address] 10/05/2025 11:15 AM EST Office Visit [facility] [address] [facility], 2nd [place] [address] Kim Machado MD [address] [phone] 01/13/2026 12:00 PM EST Office Visit [facility] [address] [place] [address] Eros Mejia MD [address] [place] [address] documented as of this encounter Visit Diagnoses Not on filedocumented in this encounter Additional Health Concerns Assessment Noted Time A fall risk assessment has been complete d for the patient 08/05/2025 10:30 AM EDT A Body Mass Index follow-up plan has been documented for the patient 07/27/2025 3:02 PM EDT documented as of this encounter Care Teams Pedal Assembler Relationship Specialty Start Date End Date Darius Ken MD [address] [place] [address] PCP - General Internal Medicine 08/23/24 documented as of this encounter
--- OUTSIDE RECORDS SUMMARY | 2025-08-13 05:01 | XMS_ITS | Data Portability ---
Author Organization [facility] Address [address] [place] [address] Care Team Providers Care Transport Specialist Name Role Phone HARIS PORTER Primary Care Provider Assessment Encounter Date Assessment Date Assessment LastModified by Organization Details LastModified Time 02/18/2024 02/18/2024 SURGERY DATE: 02/18/2024 PREOPERATIVE DIAGNOSIS: History of gross hematuria. POSTOPERATIVE DIAGNOSIS: History of gross hematuria. PROCEDURE: Cystoscopy, bilateral retrograde pyelogram. ANESTHESIA: General MAC. SURGEON: Pavan Pittman MD BRIEF HISTORY: The patient with previous history of episodic gross painless hematuria; on anticoagulation therapy. He had a CT scan without contrast, shows normal upper tracts without obvious tumors or stones. He presents today for cystoscopy for further evaluation. He does have some obstructive urination symptoms. He is on medical therapy for that. PROCEDURE NOTE: After satisfactory sedation he was carefully placed in lithotomy position. Genitalia prepped and draped in normal fashion. After adequate time, the rigid cystoscope was introduced with a 22-Equatorial [place] cystoscopy sheath with 30 degree lens. His urethra appeared normal, his prostate showed moderate obstruction. He had some prominent vasculature on the prostatic urethra, especially at the bladder neck. The bladder was inspected entirely with both 30 and 70 degree lenses. There was no mucosal abnormalities. Bilateral contrast was injected through a 5-[place] open-ended catheter. Course and contour of each ureter and collecting system was completely unremarkable emptying properly. It is most likely that his hematuria is from vascular bleeding from the prostatic surface. This is recurrent issue. We will place him on finasteride. Bladder was drained. Cystoscope was removed. Xylocaine jelly was instilled into the urethra. He was transported to postop recovery room in stable condition. [email or web address] Not available 02/19/2024 12:13:24 Plan of Treatment Reminders Order Date Submit Date Provider Last Modified By Organization Details Last Modified Time Details Appointments None recorded. Lab urinalysis panel, auto 2023 024 jevon [facility], [address], [place], [address], 23:21:34 Referral None recorded. Procedures None recorded. Surgeries None recorded. Imaging None recorded. Medication Orders None recorded. Patient TargetsNo targets recorded. Patient InstructionsNo instructions recorded. Reason for Referral None Reported. Results Created Date Observation Date Name Description Value Unit Range Abnormal Flag Note LastModifiedBy Organization Detail LastModifiedTime 01/28/20 24 01/28/2024 urina lysis panel , auto Unknown Analyte Clean Catch Not Available [facility] [address], [place], [address], 01/28/2024 15:00:48 01/28/20 24 01/28/2024 urina lysis panel , auto Unknown Analyte Yellow Not Available [facility] [address], [place], [address], 01/28/2024 15:00:48 01/28/20 24 01/28/2024 urina lysis panel , auto Unknown Analyte Clear Not Available [facility] [address], [place], [address], 01/28/2024 15:00:48 01/28/20 24 01/28/2024 urina lysis panel , auto Unknown Analyte 1.020 Not Available [facility] [address], [place], [address], 01/28/2024 15:00:48 01/28/20 24 01/28/2024 urina lysis panel , auto Unknown Analyte 1.003- 1.035 Not Available [facility] [address], [place], [address], 01/28/2024 15:00:48 01/28/20 24 01/28/2024 urina lysis panel , auto Unknown Analyte 5.0 Not Available [facility] [address], [place], [address], 01/28/2024 15:00:48 01/28/20 24 01/28/2024 urina lysis panel , auto Unknown Analyte 5.0-8. 0 Not Available [facility] [address], [place], [address], 01/28/2024 15:00:48 01/28/20 24 01/28/2024 urina lysis panel , auto Unknown Analyte 25 Amna/ul Trace Not Available [facility] [address], [place], [address], 01/28/2024 15:00:48 01/28/20 24 01/28/2024 urina lysis panel , auto Unknown Analyte Negati ve Not Available [facility] [address], [place], [address], 01/28/2024 15:00:48 01/28/20 24 01/28/2024 urina lysis panel , auto Unknown Analyte Negati ve Not Available [facility] [address], [place], [address], 01/28/2024 15:00:48 01/28/20 24 01/28/2024 urina lysis panel , auto Unknown Analyte Negati ve Not Available [facility] [address], [place], [address], 01/28/2024 15:00:48 01/28/20 24 01/28/2024 urina lysis panel , auto Unknown Analyte Negati ve Not Available [facility] [address], [place], [address], 01/28/2024 15:00:48 01/28/20 24 01/28/2024 urina lysis panel , auto Unknown Analyte Negati ve Not Available [facility] [address], [place], [address], 01/28/2024 15:00:48 01/28/20 24 01/28/2024 urina lysis panel , auto Unknown Analyte Normal Not Available [facility] [address], [place], [address], 01/28/2024 15:00:48 01/28/20 24 01/28/2024 urina lysis panel , auto Unknown Analyte Normal Not Available [facility] [address], [place], [address], 01/28/2024 15:00:48 01/28/20 24 01/28/2024 urina lysis panel , auto Unknown Analyte 15 mg/dl (Sm) Not Available [facility] [address], [place], [address], 01/28/2024 15:00:48 01/28/20 24 01/28/2024 urina lysis panel , auto Unknown Analyte Negati ve Not Available [facility] [address], [place], [address], 01/28/2024 15:00:48 01/28/20 24 01/28/2024 urina lysis panel , auto Unknown Analyte 1 mg/dl Not Available [facility] [address], [place], [address], 01/28/2024 15:00:48 01/28/20 24 01/28/2024 urina lysis panel , auto Unknown Analyte Normal 1 mg/dl Not Available [facility] [address], [place], [address], 01/28/2024 15:00:48 01/28/20 24 01/28/2024 urina lysis panel , auto Unknown Analyte Negati ve Not Available [facility] [address], [place], [address], 01/28/2024 15:00:48 01/28/20 24 01/28/2024 urina lysis panel , auto Unknown Analyte Negati ve Not Available [facility] [address], [place], [address], 01/28/2024 15:00:48 01/28/20 24 01/28/2024 urina lysis panel , auto Unknown Analyte Negati ve Not Available [facility] [address], [place], [address], 01/28/2024 15:00:48 01/28/20 24 01/28/2024 urina lysis panel , auto Unknown Analyte Negati ve Not Available [facility] [address], [place], [address], 01/28/2024 15:00:48 01/28/20 24 01/07/2024 CT, abdom en + pelvi s, w/o contr ast No observ ation record ed. [email or web address] [facility] (Radiology) [address] , [place], [address], 02/02/2024 15:41:35 Result Notes None recorded. Medical Equipment None Reported. Allergies No known drug allergies Medications Name Sig Start Date Stop Date Status Note LastModified by Organization Details LastModified Time alfuzosin ER 10 mg tablet,extende d release 24 hr Take 1 tablet every day by oral route. active Not Available Not Available No t Available bisoprolol fumarate active Not Available Not Available Not Available multivitamin with iron active Not Available Not Available No t Available rosuvastatin active Not Available Not Available Not Available Vitals Date Recorded Body height Body mass index (BMI) Body weight Provider Name and Address Organization Details Last Updated DateTime 01/28/2024 185.42 cm 26.7 kg/m2 07294.66 g Laura Jarvis [facility] 01/28/2024 15:04:53 Social History Question Answer Notes LastModified by Organizat ion Details LastModified Time Tobacco Smoking Status Never Smoker Laura Jarvis [facility] 01/28/2024 15:09:45 What Was The Date Of Your Most Recent Tobacco Screening? 01/28/2024 [email or web address] Information not available 01/28/2024 Sex: Male Functional Status None recorded. Mental Status None recorded. Family History Nothing Reported. Medical History No medical history recorded. Past Encounters Encounter ID Performer Location Encounter Start Date Encounter Closed Date Diagnosis/Indication Diagnosis SNOMED-CT Code Diagnosis ICD10 Code Diagnosis IMO Codes Diagnosis Note [id number] PAVAN PITTMAN MD [facility] [address] [place] [address] 01/28/2024 14:40:29 01/28/2024 15:46:08 Maxi hematuria 504174235 R31.0 Plan as above [id number] PAVAN PITTMAN MD SURGERY SCHEDULE [address] [place] [address] 02/18/2024 07:10:56 02/18/2024 07:11:45 Health Concerns Section Related Observation LastModified by Organization Detai ls LastModified Time None Recorded Concern Status LastModified by Organization Details LastModified Time None Recorded Advance Directives Directive None Recorded Payers Insurance Date Sequence Insurance Name Policy Number Policy Villa Covered Member ID Villa Member ID Guarantor Name 02/25/2024 1 [facility] (MEDICARE REPLACEMENT/A DVANTAGE - PPO) [id number] Justin Best [id number] Justin Best Notes Date Note Type Note Provider Name and Address Organization Details Recorded Time 01/28/2024 text/html Patient is here for initial visit referred for episodic gross painless hematuria. He had a CT scan without contrast that [facility] last week. This showed no hydronephrosis or stones. It did show a large prostate. He takes alfuzosin. He typically has nocturia x 0. We discussed further evaluation. 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 He has no smoking history. I suggest we arrange for cystoscopy with bilateral retrograde pyelograms PAVAN PITTMAN MD [address] [place] [address], [id number], [facility] 01/29/2024 23:22:00
--- OUTSIDE RECORDS SUMMARY | 2025-08-13 05:01 | XMS_ITS | Encounter Summary ---
Author Organization Healthcare Address [address] 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) Social History Tobacco Use Types [...] Support [facility] [address] [place] [address] 08/18/2025 10:30 AM EDT Appointment [facility] Infusion [address] [place] [address] 08/20/2025 2:00 PM EDT Appointment [facility] [address] [place] [address] 09/01/2025 9:15 AM EDT Clinical Support [facility] [address] [place] [address] 09/01/2025 9:30 AM EDT Office Visit [facility] [address] [place] [address] Aristides Reina MD [address] [place] [address] 09/01/2025 11:00 AM EDT Appointment [facility] 2 [address] [place] [address] 09/03/2025 10:30 AM EDT Appointment [facility] 2 [address] [place] [address] 09/15/2025 9:30 AM EST Appointment [facility] 2 4 [place] [address] 09/17/2025 9:00 AM EST Appointment [facility] 2 4 [place] [address] 10/05/2025 8:00 AM EST Appointment [facility] PET Scan [address] [place] [address] 10/05/2025 9:00 AM EST Appointment [facility] PET Scan [address] [place] [address] 10/05/2025 11:15 AM EST Office Visit [facility] [address] [facility], [address] [place] [address] Kim Machado MD [address] [phone] 01/13/2026 12:00 PM EST Office Visit [facility] [address] [place] [address] Eros Mejia MD [address] [place] [address] documented as of this encounter Visit Diagnoses Diagnosis 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
--- OUTSIDE RECORDS SUMMARY | 2025-08-13 05:01 | XMS_ITS | Encounter Summary ---
Author Organization [facility] Address [address] [place] [address] Care Team Providers Care School Bus Technician Name Role Phone Darius Ken MD Primary Care Provider [phone] Encounter Details Date Type Department Care Team (Latest Contact Info) Description 08/02/2025 Orders Only [facility] [address] [place] [address] Zuri Angeles, PharmD [address] [address] 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) [...] Clinical Support [facility] [address] [place] [address] 08/18/2025 10:30 AM EDT Appointment [facility] [address] [place] [address] 08/20/2025 2:00 PM EDT Appointment [facility] [address] [place] [address] 09/01/2025 9:15 AM EDT Clinical Support [facility] [address] [place] [address] 09/01/2025 9:30 AM EDT Office Visit [facility] [address] [place] [address] Aristides Reina MD [address] [place] [address] 09/01/2025 11:00 AM EDT Appointment [facility] 2 [address] [place] [address] 09/03/2025 10:30 AM EDT Appointment [facility] 2 4 [place] [address] 09/15/2025 9:30 AM EST Appointment [facility] 2 4 [place] [address] 09/17/2025 9:00 AM EST Appointment [facility] 2 4 [place] [address] 10/05/2025 8:00 AM EST Appointment [facility] PET Scan [address] [place] [address] 10/05/2025 9:00 AM EST Appointment [facility] PET Scan [address] [place] [address] 10/05/2025 11:15 AM EST Office Visit [facility] 800 [facility], [address]nd [place] [address] Kim Machado MD [address] [address] 01/13/2026 12:00 PM EST Office Visit [facility] [address] [place] [address] Eros Mejia MD [address] [place] [address] documented as of this encounter Visit Diagnoses Diagnosis Adenocarcinoma of gastroesophageal junction- Primary documented in this encounter Additional Health Concerns Assessment Noted Time A fall risk assessment has been complete d for the patient 07/27/2025 12:23 PM EDT A Body Mass Index follow-up plan has been documented for the patient 07/27/2025 3:02 PM EDT documented as of this encounter Care Teams School Bus Technician Relationship Specialty Start Date End Date Darius Ken MD [address] [place] [address] PCP - General Internal Medicine 08/23/24 documented as of this encounter
--- OUTSIDE RECORDS SUMMARY | 2025-08-13 05:01 | XMS_ITS | Encounter Summary ---
Author Organization Healthcare Address [address] [place] [address] Care Team Providers Care Script Coordinator Name Role Phone Darius Ken MD Primary Care Provider Encounter Details Date Type Department Care Team (Late st Contact Info) Description 12/28/2024 Orders Only External Location [address] [place] [address] Provider, External Social History Tobacco Use Types Packs/Day Years [...] Clinical Support [facility] [address] [place] [address] 08/18/2025 10:30 AM EDT Appointment [facility] [address] [place] [address] 08/20/2025 2:00 PM EDT Appointment [facility] [address] [place] [address] 09/01/2025 9:15 AM EDT Clinical Support [facility] [address] [place] [address] 09/01/2025 9:30 AM EDT Office Visit [facility] [address] [place] [phone] Aristides Reina MD 800 [place] [address] 09/01/2025 11:00 AM EDT Appointment [facility] 2 [address] [place] [address] 09/03/2025 10:30 AM EDT Appointment [facility] 2 [address] [place] [address] 09/15/2025 9:30 AM EST Appointment [facility] 2 [address] [place] [address] 09/17/2025 9:00 AM EST Appointment [facility] 2 4 [place] [address] 10/05/2025 8:00 AM EST Appointment [facility] PET Scan [address] [place] [address] 10/05/2025 9:00 AM EST Appointment [facility] PET Scan [address] [place] [address] 10/05/2025 11:15 AM EST Office Visit [facility] 800 [facility], 2nd [place] [address] Kim Machado MD [address] [address] 01/13/2026 12:00 PM EST Office Visit [facility] [address] [place] [address] Eros Mejia MD [address] [place] [address] documented as of this encounter Procedures Procedure Name Priority Date/Time Associated Diagnosis Comments US OUTSIDE IMAGES 12/28/2024 12:53 PM EST documented in this encounter Results * US OUTSIDE IMAGES (12/28/2024 12:53 PM EST) Anatomical Region Laterality Modality Ultrasound 12/28/2024 12:5 3 PM EST us External Provider IMG US PROCEDURES Final Result documented in this encounter Visit Diagnoses Not on filedocumented in this encounter Additional Health Concerns Assessment Noted Time A fall risk assessment has been complete d for the patient 08/23/2024 3:02 PM EDT A Body Mass Index follow-up plan has been documented for the patient 08/25/2024 3:08 PM EDT documented as of this encounter Care Teams Script Coordinator Relationship Specialty Start Date End Date Darius Ken MD [address] [place] [address] PCP - General Internal Medicine 08/23/24 documented as of this encounter
--- OUTSIDE RECORDS SUMMARY | 2025-08-13 05:01 | XMS_ITS | Encounter Summary ---
Author Organization Healthcare Address [address] [place] [address] Care Team Providers Care Chief Writer Name Role Phone Darius Ken MD Primary Care Provider [phone] Encounter Details Date Type Department Care Team (Late st Contact Info) Description 08/11/2025 Orders Only [facility] Nuclear Medicine [address] [place] [address] Quoc Pratt MD [address] [place] [address] Social History Tobacco Use Types Packs/Day Years [...] Support [facility] [address] [place] [address] 08/18/2025 10:30 AM EDT Appointment [facility] [address] [place] [address] 08/20/2025 2:00 PM EDT Appointment [facility] [address] [place] [address] 09/01/2025 9:15 AM EDT Clinical Support [facility] [address] [place] [address] 09/01/2025 9:30 AM EDT Office Visit [facility] [address] [place] [address] Aristides Reina MD [address] [place] [address] 09/01/2025 11:00 AM EDT Appointment [facility] 2 [address] [place] [address] 09/03/2025 10:30 AM EDT Appointment [facility] 2 [address] [place] [address] 09/15/2025 9:30 AM EST Appointment [facility] 2 4 [place] [address] 09/17/2025 9:00 AM EST Appointment [facility] 2 4 [place] [address] 10/05/2025 8:00 AM EST Appointment [facility] PET Scan [address] [place] [address] 10/05/2025 9:00 AM EST Appointment [facility] PET Scan [address] [place] [address] 10/05/2025 11:15 AM EST Office Visit [facility] 800 [facility], [address]nd [place] [address] Kim Machado MD [address] [place] [address] 01/13/2026 12:00 PM EST Office Visit [facility] [address] [place] [address] Eros Mejia MD [address] [place] [address] documented as of this encounter Visit Diagnoses Not on filedocumented in this encounter Additional Health Concerns Assessment Noted Time A fall risk assessment has been complete d for the patient 08/05/2025 10:30 AM EDT A Body Mass Index follow-up plan has been documented for the patient 07/27/2025 3:02 PM EDT documented as of this encounter Care Teams Chief Writer Relationship Specialty Start Date End Date Darius Ken MD [address] [place] [address] PCP - General Internal Medicine 08/23/24 documented as of this encounter
--- OUTSIDE RECORDS SUMMARY | 2025-08-13 05:01 | XMS_ITS | Encounter Summary ---
Author Organization Healthcare Address [address] [place] [address] Care Team Providers Care Director Of Marketing Analytics Name Role Phone Darius Ken MD Primary Care Provider [phone] Encounter Details Date Type Department Care Team (Latest Contact Info) Description 07/20/2025 Travel Social History Tobacco Use Types Packs/Day [...] Clinical Support [facility] [address] [place] [address] 08/18/2025 10:30 AM EDT Appointment [facility] [address] [place] [address] 08/20/2025 2:00 PM EDT Appointment [facility] [address] [place] [address] 09/01/2025 9:15 AM EDT Clinical Support [facility] [address] [place] [address] 09/01/2025 9:30 AM EDT Office Visit [facility] [address] [place] [address] Aristides Reina MD 800 [place] [address] 09/01/2025 11:00 AM EDT Appointment [facility] 2 [address] [place] [address] 09/03/2025 10:30 AM EDT Appointment [facility] 2 [address] [place] [address] 09/15/2025 9:30 AM EST Appointment [facility] 2 [address] [place] [address] 09/17/2025 9:00 AM EST Appointment [facility] 2 4 [place] [address] 10/05/2025 8:00 AM EST Appointment [facility] PET Scan [address] [place] [address] 10/05/2025 9:00 AM EST Appointment [facility] PET Scan [address] [place] [address] 10/05/2025 11:15 AM EST Office Visit [facility] 800 [facility], 2nd [place] [address] Kmi Machado MD [address] [facility] [address] [place] [address] 01/13/2026 12:00 PM EST Office Visit [facility] [address] [place] [address] Eros Mejia MD [address] [place] [address] documented as of this encounter Visit Diagnoses Not on filedocumented in this encounter Additional Health Concerns Assessment Noted Time A fall risk assessment has been complete d for the patient 07/06/2025 2:29 PM EDT A Body Mass Index follow-up plan has been documented for the patient 07/07/2025 10:51 PM EDT documented as of this encounter Care Teams Director Of Marketing Analytics Relationship Specialty Start Date End Date Darius Ken MD [address] [place] [address] PCP - General Internal Medicine 08/23/24 documented as of this encounter
--- OUTSIDE RECORDS SUMMARY | 2025-08-13 05:01 | XMS_ITS | Encounter Summary ---
Author Organization Healthcare Address [address] [place] [address] Care Team Providers Care Washcoat Wiper Name Role Phone Darius Ken MD Primary Care Provider [phone] Encounter Details Date Type Department Care Team (Latest Contact Info) Description 08/05/2025 Travel Social History Tobacco Use Types Packs/Day [...] Clinical Support [facility] [address] [place] [address] 08/18/2025 10:30 AM EDT Appointment [facility] [address] [place] [address] 08/20/2025 2:00 PM EDT Appointment [facility] [address] [place] [address] 09/01/2025 9:15 AM EDT Clinical Support [facility] [address] [place] [address] 09/01/2025 9:30 AM EDT Office Visit [facility] [address] [place] [address] Aristides Reina MD 800 [place] [address] 09/01/2025 11:00 AM EDT Appointment [facility] 2 [address] [place] [address] 09/03/2025 10:30 AM EDT Appointment [facility] 2 [address] [place] [address] 09/15/2025 9:30 AM EST Appointment [facility] 2 [address] [place] [address] 09/17/2025 9:00 AM EST Appointment [facility] 2 4 [place] [address] 10/05/2025 8:00 AM EST Appointment [facility] PET Scan [address] [place] [address] 10/05/2025 9:00 AM EST Appointment [facility] PET Scan [address] [place] [address] 10/05/2025 11:15 AM EST Office Visit [facility] 800 [facility], 2nd [place] [address] Kim Machado MD [address] [facility] [address] [place] [address] 01/13/2026 12:00 PM EST Office Visit [facility] [address] [place] [address] Eros Mejia MD [address] [place] [address] documented as of this encounter Visit Diagnoses Not on filedocumented in this encounter Additional Health Concerns Assessment Noted Time A fall risk assessment has been complete d for the patient 08/05/2025 10:30 AM EDT A Body Mass Index follow-up plan has been documented for the patient 07/27/2025 3:02 PM EDT documented as of this encounter Care Teams Washcoat Wiper Relationship Specialty Start Date End Date Darius Ken MD [address] [place] [address] PCP - General Internal Medicine 08/23/24 documented as of this encounter
--- OUTSIDE RECORDS SUMMARY | 2025-08-13 05:01 | XMS_ITS | Encounter Summary ---
Author Organization Healthcare Address [address] [place] [address] Care Team Providers Care Venetian Blind Tape Cutter Name Role Phone Darius Ken MD Primary Care Provider [phone] Encounter Details Date Type Department Care Team (Late st Contact Info) Description 08/10/2025 Telephone [facility] [address] [place] [address] Aristides Reina MD [address] [place] [address] Social History Tobacco Use Types Packs/Day Years [...] encounter Miscellaneous Notes * Telephone Encounter - Nettie Bella - 08/12/2025 10:08 AM EDT Patient calling back to speak to a nurse about the pain he is still having. * Telephone Encounter - Zuri Villa RN - 08/10/2025 12:37 PM EDT Called patient with no answer, LVM script was sent in and to let us know if symptoms seem to not beimproving/call back if needed. * Telephone Encounter - Zuri Villa RN - 08/10/2025 10:59 AM EDT Called and spoke with patient, stated he does not have an appetite and not eating/drinking much. Heis also having pain where his tumor is and not taking any pain medications at this time. Describes it as a constant pain dull. He did take Compazine after he called earlier this morning and this seemed to help some with his pain. He did just eat a bowl of chicken broth and has been able to keep that down so far, but did vomit his water when taking meds this morning. He did say he would try Boost protein drinks. Also educated on antiemetic use and taking prior to eating/drinking. * Telephone Encounter - Nettie Bella - 08/10/2025 8:20 AM EDT Patient Phone Message Reason for Call: Calling to speak to a nurse about issues he's having since his chemo last week. He's not eating, his stomach where the tumor is hurts, vomiting, doesn't want to drink. He took a small sip of water with his medication this morning and it came right back up. Yesterday he had half a banana and some peanut butter and crackers. Best contact number and optimal time of day to reach caller: [phone] Note: Please do not reply to this message. Follow-up communication and further actions as a result of this message need to be communicated with the patient directly, if the patient is not active onMyChart. If the patient is active on MyChart, they will receive notification of the communication/outcome via [employer]. documented in this encounter Plan of Treatment Upcoming Encounters Date Type Department Care Team (Latest Contact Info) Description 08/18/2025 8:20 AM EDT Clinical Support [facility] [address] [place] [address] 08/18/2025 10:30 AM EDT Appointment [facility] [address] [place] [address] 08/20/2025 2:00 PM EDT Appointment [facility] [address] [place] [address] 09/01/2025 9:15 AM EDT Clinical Support [facility] [address] [place] [address] 09/01/2025 9:30 AM EDT Office Visit [facility] [address] [place] [address] Aristides Reina MD [address] [place] [address] 09/01/2025 11:00 AM EDT Appointment [facility] 2 [address] [place] [address] 09/03/2025 10:30 AM EDT Appointment [facility] 2 [address] [place] [address] 09/15/2025 9:30 AM EST Appointment [facility] 2 [address] [place] [address] 09/17/2025 9:00 AM EST Appointment [facility] 2 [address] [place] [address] 10/05/2025 8:00 AM EST Appointment [facility] PET Scan [address] [place] [address] 10/05/2025 9:00 AM EST Appointment [facility] PET Scan [address] [place] [address] 10/05/2025 11:15 AM EST Office Visit [facility] 800 [facility], 2nd [place] [address] Kim Machado MD [address] [address] 01/13/2026 12:00 PM EST Office Visit [facility] [address] [place] [address] Eros Mejia MD [address] [place] [address] documented as of this encounter Visit Diagnoses Not on filedocumented in this encounter Additional Health Concerns Assessment Noted Time A fall risk assessment has been complete d for the patient 08/05/2025 10:30 AM EDT A Body Mass Index follow-up plan has been documented for the patient 07/27/2025 3:02 PM EDT documented as of this encounter Care Teams Venetian Blind Tape Cutter Relationship Specialty Start Date End Date Darius Ken MD [address] [place] [id number] PCP - General Internal Medicine 08/23/24 documented as of this encounter
--- OUTSIDE RECORDS SUMMARY | 2025-08-13 05:01 | XMS_ITS | Encounter Summary ---
Author Organization Healthcare Address [address] [place] [address] Care Team Providers Care Office Clerk Name Role Phone Darius Ken MD Primary Care Provider Encounter Details Date Type Department Care Team (Latest Contact Info) Description 08/11/2025 Travel Social History Tobacco Use Types Packs/Day [...] Clinical Support [facility] [address] [place] [address] 08/18/2025 10:30 AM EDT Appointment [facility] [address] [place] [address] 08/20/2025 2:00 PM EDT Appointment [facility] [address] [place] [address] 09/01/2025 9:15 AM EDT Clinical Support [facility] [address] [place] [address] 09/01/2025 9:30 AM EDT Office Visit [facility] [address] [place] [address] Aristides Reina MD [address] [place] [address] 09/01/2025 11:00 AM EDT Appointment [facility] 2 [address] [place] [address] 09/03/2025 10:30 AM EDT Appointment [facility] 2 [address] [place] [address] 09/15/2025 9:30 AM EST Appointment [facility] 2 [address] [place] [address] 09/17/2025 9:00 AM EST Appointment [facility] 2 4 [place] [address] 10/05/2025 8:00 AM EST Appointment [facility] PET Scan [address] [place] [address] 10/05/2025 9:00 AM EST Appointment [facility] PET Scan [address] [place] [address] 10/05/2025 11:15 AM EST Office Visit [facility] 800 [facility], 2nd [place] [address] Kim Machado MD [address] [facility] [address] [place] [address] 01/13/2026 12:00 PM EST Office Visit [facility] [address] [place] [address] Eros Mejia MD [address] [place] [address] documented as of this encounter Visit Diagnoses Not on filedocumented in this encounter Additional Health Concerns Assessment Noted Time A fall risk assessment has been complete d for the patient 08/05/2025 10:30 AM EDT A Body Mass Index follow-up plan has been documented for the patient 07/27/2025 3:02 PM EDT documented as of this encounter Care Teams Office Clerk Relationship Specialty Start Date End Date Darius Ken MD [address] [place] [address] PCP - General Internal Medicine 08/23/24 documented as of this encounter
--- OUTSIDE RECORDS SUMMARY | 2025-08-13 05:01 | XMS_ITS | Encounter Summary ---
Author Organization [facility] Address [address] 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 Procedures PET/CT FDG Skull Base To Mid Thigh Kim Machado MD [address] [facility] [address] [place] [address] Phone: tel: fax: Referral ID Status Reason Start Date Expiration Date V isits Requested Visits Authorized [id number] Pending Review 08/11/2025 02/10/2027 2 2 Encounter Details Date Type Department Care Team (Late st Contact Info) Description 08/11/2025 Orders Only [facility] 800 [facility], 2nd [place] [address] Jeanine Bhandari, RN Malignant neoplasm of overlapping [...] Clinical Support [facility] [address] [place] [address] 08/18/2025 10:30 AM EDT Appointment [facility] [address] [place] [address] 08/20/2025 2:00 PM EDT Appointment [facility] [address] [place] [address] 09/01/2025 9:15 AM EDT Clinical Support [facility] [address] [place] [address] 09/01/2025 9:30 AM EDT Office Visit [facility] [address] [place] [address] Aristides Reina MD 800 [place] [address] 09/01/2025 11:00 AM EDT Appointment [facility] 2 [address] [place] [address] 09/03/2025 10:30 AM EDT Appointment [facility] 2 [address] [place] [address] 09/15/2025 9:30 AM EST Appointment [facility] 2 [address] [place] [address] 09/17/2025 9:00 AM EST Appointment [facility] 2 [address] [place] [address] 10/05/2025 8:00 AM EST Appointment [facility] PET Scan [address] [place] [address] 10/05/2025 9:00 AM EST Appointment [facility] PET Scan [address] [place] [address] 10/05/2025 11:15 AM EST Office Visit [facility] [address], [address]nd [place] [address] Kim Machado MD [address] [place] [address] 01/13/2026 12:00 PM EST Office Visit [facility] [address] [place] [address] Eros Mejia MD [address] [place] [address] Scheduled Orders Name Type Priority Associated Diagnoses Orde r Schedule PET/CT FDG Skull Base To Mid Thigh Imaging Routine 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
--- OUTSIDE RECORDS SUMMARY | 2025-08-13 05:01 | XMS_ITS | Encounter Summary ---
Author Organization Healthcare Address [address] [place] [address] Care Team Providers Care Public Information Coordinator Name Role Phone Darius Ken MD Primary Care Provider [phone] Encounter Details Date Type Department Care Team (Late st Contact Info) Description 07/07/2025 Lab Requisition [facility] [address] [place] [address] Kim Machado MD [address] [facility] [address] [place] [address] Dysphagia, unspecified Social History Tobacco Use Types Packs/Day Years [...] Clinical Support [facility] [address] [place] [address] 08/18/2025 10:30 AM EDT Appointment [facility] [address] [place] [address] 08/20/2025 2:00 PM EDT Appointment [facility] [address] [place] [address] 09/01/2025 9:15 AM EDT Clinical Support [facility] [address] [place] [address] 09/01/2025 9:30 AM EDT Office Visit [facility] [address] Aristides Reina MD [address] [place] [address] 09/01/2025 11:00 AM EDT Appointment [facility] 2 [address] [place] [address] 09/03/2025 10:30 AM EDT Appointment [facility] 2 4 [place] [address] 09/15/2025 9:30 AM EST Appointment [facility] 2 4 [place] [address] 09/17/2025 9:00 AM EST Appointment [facility] 2 [address] [place] [address] 10/05/2025 8:00 AM EST Appointment [facility] PET Scan [address] [place] [address] 10/05/2025 9:00 AM EST Appointment [facility] PET Scan [address] [place] [address] 10/05/2025 11:15 AM EST Office Visit [facility] 800 [facility], 2nd [place] [address] Kim Machado MD [address] [address] 01/13/2026 12:00 PM EST Office Visit [facility] [address] [place] [address] Eros Mejia MD [address] [place] [address] documented as of this encounter Procedures Procedure Name Priority Date/Time Associated Diagnosis Comments SURGICAL PATHOLOGY CONSULT Routine 07/07/2025 10:15 AM EDT Dysphagia, unspecified documented in this encounter Results * Surgical Pathology Consult (07/07/2025 10:15 AM EDT) Case Report Sugical Pathology Consult Case: [id number] Authorizing Provider: Kim Machado MD Collected: 07/07/2025 1015 Ordering Location: [facility] Lab Received: 07/07/2025 1016 Pathologist: Mi Hale MD Specimen: Stomach, [id number] 07/07/2025 1:31 PM EDT [facility] Final Diagnosis GASTROESOPHAGEAL JUNCTION, BIOPSY ([id number]; ): - 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 STOMACH, BIOPSY ([id number]; ): - NO PATHOLOGIC ABNORMALITIES. - NO H. PYLORI ORGANISMS IDENTIFIED ON H&E SLIDE. STOMACH, POLYP, BIOPSY ([id number]; ): - FUNDIC GLAND POLYP. 07/07/2025 1:31 PM EDT [facility] at 1331 EDT Comment Per [...] promoter methylation study) 07/07/2025 1:31 PM EDT [facility] Clinical Information R13.10 - Dysphagia, unspecified [ICD-10-CM] 07/07/2025 1:31 PM EDT [facility] Gross Description A. [id number] Received along with a corresponding pathology report from [facility] are 11 slide(s) labeled outside case: [id number] collected on 06/17/2025. 07/07/2025 1:31 PM EDT [facility] Note: A resident was involved in the service. I attest I examined the relevant preparations for the specimens and confirmed the diagnosis or interpretation. 07/07/2025 1:31 PM EDT [facility] Tissue Stomach structure / Unknown 07/07/2025 10:15 AM EDT 07/07/2025 10:16 AM EDT us Kim Machado MD LAB PATHOLOGY ORDERABLES Final Result [facility] [address] [place] [address] documented in this encounter Visit Diagnoses Diagnosis Dysphagia, unspecified documented in this encounter Additional Health Concerns Assessment Noted Time A fall risk assessment has been complete d for the patient 07/06/2025 2:29 PM EDT A Body Mass Index follow-up plan has been documented for the patient 07/07/2025 10:51 PM EDT documented as of this encounter Care Teams Public Information Coordinator Relationship Specialty Start Date End Date Darius Ken MD [address] [place] [address] PCP - General Internal Medicine 08/23/24 documented as of this encounter
--- OUTSIDE RECORDS SUMMARY | 2025-08-13 05:01 | XMS_ITS | Encounter Summary ---
Author Organization Healthcare Address [address] [place] [address] Care Team Providers Care Head Soft Sugar Operator Name Role Phone Darius Ken MD Primary Care Provider [phone] Encounter Details Date Type Department Care Team (Late st Contact Info) Description 07/12/2025 Orders Only Ch Radiology Virtual Dept. [address] [place] [address] Paz Corcoran, DO [address] [place] [address] Social History Tobacco Use Types Packs/Day Years [...] Support [facility] [address] [place] [address] 08/18/2025 10:30 AM EDT Appointment [facility]fusion [address] [place] [address] 08/20/2025 2:00 PM EDT Appointment [facility] [address] [place] [address] 09/01/2025 9:15 AM EDT Clinical Support [facility] [address] [place] [address] 09/01/2025 9:30 AM EDT Office Visit [facility] [address] [place] [address] Aristides Reina MD 800 [place] [address] 09/01/2025 11:00 AM EDT Appointment [facility] 2 [address] [place] [address] 09/03/2025 10:30 AM EDT Appointment [facility] 2 [address] [place] [address] 09/15/2025 9:30 AM EST Appointment [facility] 2 4 [place] [address] 09/17/2025 9:00 AM EST Appointment [facility] 2 4 [place] [address] 10/05/2025 8:00 AM EST Appointment [facility] PET Scan [address] [place] [address] 10/05/2025 9:00 AM EST Appointment [facility] PET Scan [address] [place] [address] 10/05/2025 11:15 AM EST Office Visit [facility] 800 [facility], 2nd [place] [address] Kim Machado MD [address] [place] [address] 01/13/2026 12:00 PM EST Office Visit [facility] [address] [place] [address] Eros Mejia MD [address] [place] [address] documented as of this encounter Visit Diagnoses Not on filedocumented in this encounter Additional Health Concerns Assessment Noted Time A fall risk assessment has been complete d for the patient 07/06/2025 2:29 PM EDT A Body Mass Index follow-up plan has been documented for the patient 07/07/2025 10:51 PM EDT documented as of this encounter Care Teams Head Soft Sugar Operator Relationship Specialty Start Date End Date Darius Ken MD [address] [place] [address] PCP - General Internal Medicine 08/23/24 documented as of this encounter
--- OUTSIDE RECORDS SUMMARY | 2025-08-13 05:01 | XMS_ITS | Encounter Summary ---
Author Organization Healthcare Address [address] [place] [address] Care Team Providers Care Emergency Services Director Name Role Phone Darius Ken MD Primary Care Provider [phone] Encounter Details Date Type Department Care Team (Latest Contact Info) Description 07/14/2025 Travel Social History Tobacco Use Types Packs/Day [...] Clinical Support [facility] [address] [place] [address] 08/18/2025 10:30 AM EDT Appointment [facility]fusion [address] [place] [address] 08/20/2025 2:00 PM EDT Appointment [facility] [address] [place] [address] 09/01/2025 9:15 AM EDT Clinical Support [facility] [address] [place] [address] 09/01/2025 9:30 AM EDT Office Visit [facility] [address] [place] [address] Aristides Reina MD 800 [place] [address] 09/01/2025 11:00 AM EDT Appointment [facility] 2 [address] [place] [address] 09/03/2025 10:30 AM EDT Appointment [facility] 2 [address] [place] [address] 09/15/2025 9:30 AM EST Appointment [facility] 2 [address] [place] [address] 09/17/2025 9:00 AM EST Appointment [facility] 2 4 [place] [address] 10/05/2025 8:00 AM EST Appointment [facility] PET Scan [address] [place] [address] 10/05/2025 9:00 AM EST Appointment [facility] PET Scan [address] [place] [address] 10/05/2025 11:15 AM EST Office Visit [facility] Res[facility] 800 [facility], 2nd [place] [address] Kim Machado MD [address] [facility] [address] [place] [address] 01/13/2026 12:00 PM EST Office Visit [facility] [address] [place] [address] Eros Mejia MD [address] [place] [address] documented as of this encounter Visit Diagnoses Not on filedocumented in this encounter Additional Health Concerns Assessment Noted Time A fall risk assessment has been complete d for the patient 07/06/2025 2:29 PM EDT A Body Mass Index follow-up plan has been documented for the patient 07/07/2025 10:51 PM EDT documented as of this encounter Care Teams Emergency Services Director Relationship Specialty Start Date End Date Darius Ken MD [address] [place] [address] PCP - General Internal Medicine 08/23/24 documented as of this encounter
--- OUTSIDE RECORDS SUMMARY | 2025-08-13 05:01 | XMS_ITS | Encounter Summary ---
Author Organization Healthcare Address [address] [place] [address] Care Team Providers Care Canteen Operator Name Role Phone Darius Ken MD Primary Care Provider Encounter Details Date Type Department Care Team (Latest Contact Info) Description 08/02/2025 Travel Social History Tobacco Use Types Packs/Day [...] Clinical Support [facility] [address] [place] [address] 08/18/2025 10:30 AM EDT Appointment [facility] [address] [place] [address] 08/20/2025 2:00 PM EDT Appointment [facility] [address] [place] [address] 09/01/2025 9:15 AM EDT Clinical Support [facility] [address] [place] [address] 09/01/2025 9:30 AM EDT Office Visit [facility] [address] [place] [address] Aristides Reina MD [address] [place] [address] 09/01/2025 11:00 AM EDT Appointment [facility] 2 [address] [place] [address] 09/03/2025 10:30 AM EDT Appointment [facility] 2 [address] [place] [address] 09/15/2025 9:30 AM EST Appointment [facility] 2 [address] [place] [address] 09/17/2025 9:00 AM EST Appointment [facility] 2 [address] [place] [address] 10/05/2025 8:00 AM EST Appointment [facility] PET Scan [address] [place] [address] 10/05/2025 9:00 AM EST Appointment [facility] PET Scan [address] [place] [address] 10/05/2025 11:15 AM EST Office Visit [facility] 800 [facility], 2nd [place] [address] iKm Machado MD [address] [facility] [address] [place] [address] 01/13/2026 12:00 PM EST Office Visit [facility] [address] [place] [address] Eros Mejia MD [address] [place] [address] documented as of this encounter Visit Diagnoses Not on filedocumented in this encounter Additional Health Concerns Assessment Noted Time A fall risk assessment has been complete d for the patient 07/27/2025 12:23 PM EDT A Body Mass Index follow-up plan has been documented for the patient 07/27/2025 3:02 PM EDT documented as of this encounter Care Teams Canteen Operator Relationship Specialty Start Date End Date Darius Ken MD [address] [place] [address] PCP - General Internal Medicine 08/23/24 documented as of this encounter
--- OUTSIDE RECORDS SUMMARY | 2025-08-13 05:01 | XMS_ITS | Encounter Summary ---
Author Organization Healthcare Address [address] [place] [address] Care Team Providers Care Ext Js Developer Name Role Phone Darius Ken MD Primary Care Provider [phone] Encounter Details Date Type Department Care Team (Latest Contact Info) Description 07/06/2025 Travel Social History Tobacco Use Types Packs/Day [...] as of this encounter Functional Status * Calculated C-SSRS Risk Score (Lifetime/Recent) Answer Date of Assessment Author No Risk Indicated 07/06/2025 2:30 PM EDT Serene Bella * Question Answer Date of Assessment Author 1. Wish to be (Past 1 Month) No 2:30 PM EDT Serene Bella 2. Non-Specific Active Suici pearl Thoughts (Past 1 Month) No 07/06/2025 2:30 PM EDT Alex Bella 6. Suicidal Behavior (Lifetime) No 2:30 PM EDT Serene Bella documented as of this encounter Plan of Treatment Upcoming Encounters Date Type Department Care Team (Latest Contact Info) Description 08/18/2025 8:20 AM EDT Clinical Support [facility] Multidisciplinary Oncology Clinic [address] [place] [address] 08/18/2025 10:30 AM EDT Appointment [facility] [address] [place] [address] 08/20/2025 2:00 PM EDT Appointment [facility] [address] [place] [address] 09/01/2025 9:15 AM EDT Clinical Support [facility] [address] [place] [address] 09/01/2025 9:30 AM EDT Office Visit [facility] [address] [place] [address] Aristides Reina MD [address] [place] [address] 09/01/2025 11:00 AM EDT Appointment [facility] 2 [address] [place] [address] 09/03/2025 10:30 AM EDT Appointment [facility] 2 [address] [place] [address] 09/15/2025 9:[address] [facility] Infusion Clinic 2 [address] [place] [address] 09/17/2025 9:00 AM EST Appointment [facility] 2 [address] [place] [address] 10/05/2025 8:00 AM EST Appointment [facility] PET Scan [address] [place] [address] 10/05/2025 9:00 AM EST Appointment [facility] PET Scan [address] [place] [address] 10/05/2025 11:15 AM EST Office Visit [facility] 800 [facility], 2nd [place] [address] Kim Machado MD [address] [facility] [address] [place] [address] 01/13/2026 12:00 PM EST Office Visit [facility] [address] [place] [address] Eros Mejia MD [address] [place] [phone] documented as of this encounter Visit Diagnoses Not on filedocumented in this encounter Additional Health Concerns Assessment Noted Time A fall risk assessment has been complete d for the patient 07/06/2025 2:29 PM EDT A Body Mass Index follow-up plan has been documented for the patient 07/07/2025 10:51 PM EDT documented as of this encounter Care Teams Ext Js Developer Relationship Specialty Start Date End Date Darius Ken MD [address] [place] [address] PCP - General Internal Medicine 08/23/24 documented as of this encounter
--- OUTSIDE RECORDS SUMMARY | 2025-08-13 05:01 | XMS_ITS | Encounter Summary ---
Author Organization Healthcare Address [address] [place] [address] Care Team Providers Care Emulsion Operator Name Role Phone Darius Ken MD Primary Care Provider [phone] Encounter Details Date Type Department Care Team (Latest Contact Info) Description 07/29/2025 Travel Social History Tobacco Use Types Packs/Day [...] Ferrera RN documented as of this encounter Plan of Treatment Upcoming Encounters Date Type Department Care Team (Latest Contact Info) Description 08/18/2025 8:20 AM EDT Clinical Support [facility] [address] [place] [address] 08/18/2025 10:30 AM EDT Appointment [facility] [address] [place] [address] 08/20/2025 2:00 PM EDT Appointment [facility] [address] [place] [address] 09/01/2025 9:15 AM EDT Clinical Support [facility] [address] [place] [address] 09/01/2025 9:30 AM EDT Office Visit [facility] [address] [place] [address] Aristides Reina MD [address] [place] [address] 09/01/2025 11:00 AM EDT Appointment [facility] 2 [address] [place] [address] 09/03/2025 10:30 AM EDT Appointment [facility] 2 [address] [place] [address] 09/15/2025 9:30 AM EST Appointment [facility] 2 [address] [place] [address] 09/17/2025 9:00 AM EST Appointment [facility] 2 [address] [place] [address] 10/05/2025 8:00 AM EST Appointment [facility] PET Scan [address] [place] [address] 10/05/2025 9:00 AM EST Appointment [facility] PET Scan [address] [place] [address] 10/05/2025 11:15 AM EST Office Visit [facility] 800 [facility], 2nd [place] [address] Kim Machado MD [address] [place] [address] 01/13/2026 12:00 PM EST Office Visit [facility] [address] [place] [address] Eros Mejia MD [address] [place] [phone] documented as of this encounter Visit Diagnoses Not on filedocumented in this encounter Additional Health Concerns Assessment Noted Time A fall risk assessment has been complete d for the patient 07/27/2025 12:23 PM EDT A Body Mass Index follow-up plan has been documented for the patient 07/27/2025 3:02 PM EDT documented as of this encounter Care Teams Emulsion Operator Relationship Specialty Start Date End Date Darius Ken MD [address] [place] [address] PCP - General Internal Medicine 08/23/24 documented as of this encounter
--- OUTSIDE RECORDS SUMMARY | 2025-08-13 05:01 | XMS_ITS | Encounter Summary ---
Author Organization [facility] Address [address] [place] [address] Care Team Providers Care Motor Teacher Name Role Phone Darius Ken MD Primary Care Provider [phone] Reason for Referral * Consultation (Routine) - Closed Specialty Diagnoses / Procedures Referred By Broderick olivares Referred To Contact Nephrology Diagnoses Chronic kidney disease (CKD) stage G3a/A1, moderately decreased glomerular filtration rate (GFR) between 45-59 mL/min/1.73 square meter and albuminuria creatinine ratio less than 30 mg/g Darius Ken MD [address] [address] Phone: tel: fax: Kirk Villatoro MD [address] [address] Phone: tel: fax: Referral ID Status Reason Start Date Expiration Date V isits Requested Visits Authorized [id number] Closed Specialty Services Required 07/23/2024 01/22/2026 1 1 Encounter Details Date Type Department Care Team (Late st Contact Info) Description 07/23/2024 Community [facility] [address] [place] [phone] Darius Ken MD 1210 [facility] [address] [facility] [address] [place] [address] Chronic kidney disease (CKD) stage G3a/A1, moderately decreased glomerular filtration rate (GFR) between 45-59 mL/min/1.73 square meter and albuminuria creatinine ratio less than 30 mg/g (CMS/HCC) (Primary Dx) Social History Tobacco Use Types Packs/Day Years Used Date Smoking Tobacco: Never Assessed Sex and Gender Information Value Date Recorded Sex Assigned at Male 07/23/2024 9:40 AM EDT Legal Sex Male 8:50 PM EDT Gender Identity Male 07/23/2024 9:40 AM EDT Sexual Orientation Not on file documented as of this encounter Plan of Treatment Upcoming Encounters Date Type Department Care Team (Latest Contact Info) Description 08/18/2025 8:20 AM EDT Clinical Support [facility] [address] [place] [address] 08/18/2025 10:30 AM EDT Appointment [facility] [address] [place] [address] 08/20/2025 2:00 PM EDT Appointment [facility] [address] 09/01/2025 9:15 AM EDT Clinical Support [facility] [address] [place] [address] 09/01/2025 9:30 AM EDT Office Visit [facility] [address] [place] [address] Aristides Reina MD [address] [place] [address] 09/01/2025 11:00 AM EDT Appointment [facility] 2 [address] [place] [address] 09/03/2025 10:30 AM EDT Appointment [facility] 2 [address] [place] [address] 09/15/2025 9:30 AM EST Appointment [facility] 2 [address] [place] [address] 09/17/2025 9:00 AM EST Appointment [facility] 2 [address] [place] [address] 10/05/2025 8:00 AM EST Appointment [facility] PET Scan [address] [place] [address] 10/05/2025 9:00 AM EST Appointment [facility] PET Scan [address] [place] [address] 10/05/2025 11:15 AM EST Office Visit [facility] 800 [facility], 2nd [place] [address] Kmi Machado MD [address] [place] [address] 01/13/2026 12:00 PM EST Office Visit [facility] [address] [place] [address] Eros Mejia MD [address] [place] [address] Scheduled Referrals Name Type Priority Associated Diagnoses Orde r Schedule Ambulatory referral to Nephrology Outpatient Referral Routine Chronic kidney disease (CKD) stage G3a/A1, moderately decreased glomerular filtration rate (GFR) between 45-59 mL/min/1.73 square meter and albuminuria creatinine ratio less than 30 mg/g ([facility]) Ordered: 07/23/2024 documented as of this encounter Visit Diagnoses Diagnosis Chronic kidney disease (CKD) stage G3a/A1, moderately decreased glomerular filtration rate (GFR) between 45-59 mL/min/1.73 square meter and albuminuria creatinine ratio less than 30 mg/g- Primary documented in this encounter Care Teams Motor Teacher Relationship Specialty Start Date End Date Darius Ken MD [address] [place] [address] PCP - General Internal Medicine 08/23/24 documented as of this encounter
--- OUTSIDE RECORDS SUMMARY | 2025-08-13 05:01 | XMS_ITS | Encounter Summary ---
Author Organization Healthcare Address [address] [place] [address] Care Team Providers Care Merchandise Executive Name Role Phone Darius Ken MD Primary Care Provider Encounter Details Date Type Department Care Team (Latest Contact Info) Description 08/03/2025 Travel Social History Tobacco Use Types Packs/Day [...] Clinical Support [facility] [address] [place] [address] 08/18/2025 10:30 AM EDT Appointment [facility] [address] [place] [address] 08/20/2025 2:00 PM EDT Appointment [facility] [address] [place] [address] 09/01/2025 9:15 AM EDT Clinical Support [facility] [address] [place] [address] 09/01/2025 9:30 AM EDT Office Visit [facility] [address] [place] [address] Aristides Reina MD [address] [place] [address] 09/01/2025 11:00 AM EDT Appointment [facility] 2 [address] [place] [address] 09/03/2025 10:30 AM EDT Appointment [facility] 2 [address] [place] [address] 09/15/2025 9:30 AM EST Appointment [facility] 2 [address] [place] [address] 09/17/2025 9:00 AM EST Appointment [facility] 2 [address] [place] [address] 10/05/2025 8:00 AM EST Appointment [facility] PET Scan [address] [place] [address] 10/05/2025 9:00 AM EST Appointment [facility] PET Scan [address] [place] [address] 10/05/2025 11:15 AM EST Office Visit [facility] 800 [facility], 2nd [place] [address] Kim Machado MD [address] [facility] [address] [place] [address] 01/13/2026 12:00 PM EST Office Visit [facility] [address] [place] [address] Eros Mejia MD [address] [place] [address] documented as of this encounter Visit Diagnoses Not on filedocumented in this encounter Additional Health Concerns Assessment Noted Time A fall risk assessment has been complete d for the patient 07/27/2025 12:23 PM EDT A Body Mass Index follow-up plan has been documented for the patient 07/27/2025 3:02 PM EDT documented as of this encounter Care Teams Merchandise Executive Relationship Specialty Start Date End Date Darius Ken MD [address] [place] [address] PCP - General Internal Medicine 08/23/24 documented as of this encounter
--- OUTSIDE RECORDS SUMMARY | 2025-08-13 05:01 | XMS_ITS | Encounter Summary ---
Author Organization Healthcare Address [address] [place] [address] Care Team Providers Care Photo Tube Assembler Name Role Phone Darius Ken MD Primary Care Provider Encounter Details Date Type Department Care Team (Latest Contact Info) Description 07/25/2025 Travel Social History Tobacco Use Types Packs/Day [...] Clinical Support [facility] [address] [place] [address] 08/18/2025 10:30 AM EDT Appointment [facility] [address] [place] [address] 08/20/2025 2:00 PM EDT Appointment [facility] [address] [place] [address] 09/01/2025 9:15 AM EDT Clinical Support [facility] [address] [place] [address] 09/01/2025 9:30 AM EDT Office Visit [facility] [address] [place] [address] Aristides Reina MD [address] [place] [address] 09/01/2025 11:00 AM EDT Appointment [facility] 2 [address] [place] [address] 09/03/2025 10:30 AM EDT Appointment [facility] 2 [address] [place] [address] 09/15/2025 9:30 AM EST Appointment [facility] 2 [address] [place] [address] 09/17/2025 9:00 AM EST Appointment [facility] 2 4 [place] [address] 10/05/2025 8:00 AM EST Appointment [facility] PET Scan [address] [place] [address] 10/05/2025 9:00 AM EST Appointment [facility] PET Scan [address] [place] [address] 10/05/2025 11:15 AM EST Office Visit [facility] 800 [facility], 2nd [place] [address] Kim Machado MD [address] [facility] [address] [place] [address] 01/13/2026 12:00 PM EST Office Visit [facility] [address] [place] [address] Eros Mejia MD [address] [place] [address] documented as of this encounter Visit Diagnoses Not on filedocumented in this encounter Additional Health Concerns Assessment Noted Time A fall risk assessment has been complete d for the patient 07/21/2025 9:37 AM EDT A Body Mass Index follow-up plan has been documented for the patient 07/07/2025 10:51 PM EDT documented as of this encounter Care Teams Photo Tube Assembler Relationship Specialty Start Date End Date Darius Ken MD [address] [place] [address] PCP - General Internal Medicine 08/23/24 documented as of this encounter
[2025-08-13] MEDS: MORPHINE 4MG/ML SYRINGE 4 MG IV ×2 (05:02→06:57)
[2025-08-13] MEDS: 0.9 % SODIUM CHLORIDE 1000ML 1,000 ML 999 ML IV ×2 (05:02→10:28)
--- OUTSIDE RECORDS SUMMARY | 2025-08-13 05:02 | XMS_ITS | Clinical Summary ---
Author Organization [facility] Address [address] [place] [address] Care Team Providers Care Kaiako K[place] Ma[place] Name Role Phone Darius Ken MD Primary Care Provider [phone] Medications Sod Picosulfate-Mag Ox-Cit Acd 10-3.5-12 MG-GM -GM/160ML solution Take 1 kit by mouth Take As Directed. Follow instructions mailed to your home. If you didn't receive instructions; call [phone]. 7 bottle 9 Active Social History Tobacco Use Types Packs/Day Years Used Date Smoking Tobacco: Never Assessed Abuse Screen Answer Date Recorded Unsafe at Home or Work/School Not on file Feels Threatened by Someone? Not on file 08/2023 Does Anyone Keep You from Co ntacting Others or Doint Things Outside the Home? Not on file 08/19/2023 Physical Sign of Abuse Present Not on file 1 Housing Stability Answer Date Recorded Current Living Arrangements Not on file 08/10 Potentially Unsafe Housing Conditions Not on zandra e 08/19/2023 Family and Community Support Answer Mundo e Recorded Help with Day-to-Day Activities Not on file 08/19/2023 Lonely or Isolated Not on file 08/19/2023 Employment Answer Date Recorded Do you want help finding or keeping work or a tana b? Not on file 08/19/2023 Disabilities Answer Date Recorded Concentrating, Remembering, or Making Decisions Difficulty Not on file 08/19/2023 Doing Errands Independently Difficulty Not on fi le 08/19/2023 Education Answer Date Recorded Help with school or training? Not on file Preferred Language Not on file 08/19/2023 Sex and Gender Information Value Date Recorded Sex Assigned at Not on file Legal Sex Male 1:45 PM EDT Gender Identity Not on file Sexual Orientation Not on file Plan of Treatment Health Maintenance Due Date Last Done Comments TDAP/TD VACCINES (1 - Tdap) 1973 COLOGUARD 1999 COLON CANCER SCREENING [address] COLONOGRAPHY 1999 FECAL OCCULT BLOOD TEST 1999 FIT Testing (1 year) 1999 Pneumococcal Vaccine 50+ (1 of 1 - PCV) 2004 ZOSTER VACCINE (1 of 2) 2004 ANNUAL PHYSICAL 07/30/2019 HEPATITIS C SCREENING 07/30/2019 INFLUENZA VACCINE 06/10/2025 COVID-19 Vaccine ( season) 2025 COLONOSCOPY 08/23/2029 08/23/2019 COLORECTAL CANCER SCREENING 08/23/2029 AAA SCREEN ONCE Completed 09/21/2024 Procedures Procedure Name Priority Date/Time Associated Diagnosis Comments SCANNED - COLONOSCOPY 08/23/2019 from Last 3 Months or Most Recently Relevant to Health Maintenance Results * SCANNED - COLONOSCOPY (08/23/2019) Darius Ken MD CHART REVIEW TABS Final R esult from Last 3 Months or Most Recently Relevant to Health Maintenance Insurance [facility] MEDIC[facility] REPL[facility] Care Teams Kai[place] Relationship Specialty Start Date End Date Darius Ken MD [address] [place] [id number] PCP - General Adolescent Medicine 07/28/19
--- NOTE | 2025-08-13 05:07 | ECG_ITS ---
APPROVED REPORT Exam: Resting ECG HR:87 bpm ECG Measurements Heart Rate 87 AXES QRSd 86 QRS 77 QT 322 T 36 QTc [address] DEVIATION AND MODERATE T-WAVE ABNORMALITY, CONSIDER ANTEROLATERAL ISCHEMIA [-0.1+ mV T-WAVE IN V3-V6] ABNORMAL ECG UNCONFIRMED REPORT Electronically signed by : JAVIER CHOPRA, 08/14/2025 23:58:21
--- NOTE | 2025-08-13 05:25 | PC.NURSE ---
lab calls to report blood work initially sent was hemolyzed. Pt straight stuck for marquez bah and sent to the lab at this time.
--- NOTE | 2025-08-13 05:34 | ED_ITS ---
Discharge Plan Disposition Patient Disposition: Xfer Other Condition: Good Prescriptions Prescriptions: No Action famotidine [Pepcid] 40 mg tablet 40 mg PO DAILY bisoprolol fumarate 5 mg tablet 5 mg PO DAILY rosuvastatin 10 mg tablet 10 mg PO DAILY alfuzosin 10 mg tablet extended release 24 hr 10 mg PO DAILY Clinical Impressions Clinical Impression: Acute non-ST elevation myocardial infarction (NSTEMI), Acute hyponatremia, Adenocarcinoma of esophagus, New onset a-fib, Pancolitis Stand Alone Forms Stand Alone Forms: Transfer Record - ED Instructions Patient Instructions: DI for Acute Abdominal Pain Print Language Print Language: Kinyarwanda Discharge ED Provider: Aryan Gentile General Adult HPI <Kenneth Daniel MD - Last Filed: 08/13/25 07:03> General Chief complaint: Abdominal Pain Stated complaint: Abdominal pain Time Seen by Provider: 08/13/25 04:57 Mode of Arrival: EMS Source of Information: Patient and EMS Description of Symptoms (Recalled from ER Triage Doc. by RN): Pt presents to the ed for evaluation of ABD pain that is chronic in nature due to gastro- esophogeal cancer with worsening pain for approx 5 days ago. Pt reporst first and only round of chemo was x1 week ago. Pt denies fevers at home. 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 It has been steadily worsening after his chemo last week. He denies any fever at home. He reports he has not been eating much solid food but has been drinking. Pain is epigastric, worsening. Denies any urinary symptoms. Reports intermittent bowel movements. Related Data Home Medications ?Medication ?Instructions ?Recorded ?Confirmed alfuzosin 10 mg tablet,extended 10 mg PO DAILY 4 06/30/25 release 24 hr bisoprolol fumarate 5 mg tablet 5 mg PO DAILY 01/24/24 06/30/25 rosuvastatin 10 mg tablet 10 mg PO DAILY 01/24/2406/11 famotidine 40 mg tablet (Pepcid) 40 mg PO DAILY 06/30/25 Allergies Allergy/AdvReac Type Severity Reaction Status Date / Time Penicillins AdvReac Unknown Verified 08/13/25 05:12 allergy reaction PFSH <Kenneth Daniel MD - Last Filed: 08/13/25 07:03> [facility] Disclaimer: The information contained in this section may have been updated after the patient was seen, as this information can be updated by other users. Medical History (Updated 08/13/25 @ 10:45 by Aryan Gentile DO) Hyperlipidemia Hypertension Surgical History (Updated 06/30/25 @ 09:29 by JASON Salcedo) History of esophagogastroduodenoscopy (EGD) History of colonoscopy Family History Other No significant family history Social History Smoking Status: Never smoker alcohol intake: never substance use type: denies use current occupational status: retired Travel in the last 8 weeks?: None Other Medical History Have you received the Pneumonia Vaccine: Yes <Kenneth Daniel MD - Last Filed: 08/13/25 07:03> ROS Obtained: Yes All systems reviewed & no additional complaints except as documented Physical Exam <Kenneth Daniel MD - Last Filed: 08/13/25 07:03> General General appearance: alert Comment: Uncomfortable appearing Head Head exam: atraumatic and normocephalic Eye Eye exam: Present normal appearance, PERRL and EOMI ENT ENT exam: Present normal oropharynx and normal external ear exam Neck Neck exam: Present normal inspection and full ROM Chest Chest inspection: Present normal inspection and symmetric chest wall rise; Absent tenderness Respiratory Respiratory exam: Present normal lung sounds bilaterally; Absent respiratory distress Cardiovascular Cardiovascular exam: Present regular rate and normal rhythm Abdominal Exam Abdominal exam: Present soft and tenderness (Epigastric); Absent distention or guarding Extremities Exam Extremities exam: Present normal inspection; Absent edema or joint swelling Back Exam Back exam: Present normal inspection; Absent tenderness Neurological Exam Neurological exam: Present alert and oriented X3; Absent motor sensory deficit Psychiatric Psychiatric exam: Present normal affect and normal mood Skin Skin exam: Present warm, dry and normal color Lymphatic Lymphatic Findings: no adenopathy Medical Decision Making <Kenneth Daniel MD - Last Filed: 08/13/25 07:03> Medical Records Medical records reviewed: Yes I reviewed the patient's medical records. Screening: Per USPSTF and CDC recommendations, given the prevalence of disease in our region, it is our hospital?s policy to screen for HIV and viral Hepatitis for all patients aged 18 and over and those with ongoing risk factors. Matt Inquiry Pt receiving controlled substance: No Matt was queried for this patient: No Vital Signs: 08/13/25 05:00 08/13/25 05:06 08/13/25 05:30 Temperature 99.2 F Temperature Source Oral Pulse Rate 88 98 H Pulse Rate [Radial] 87 Respiratory Rate 16 Blood Pressure 114/67 93/62 L Blood Pressure [Right Arm] 114/67 Blood Pressure Mean Blood Pressure Mean [Right Arm] 82 Blood Pressure Position 02 Sat by Pulse Oximetry 96 96 96 Oxygen Delivery Method Room Air 08/13/25 06:00 08/13/25 06:07 08/13/25 06:26 Temperature Temperature Source Pulse Rate 91 H 87 81 Pulse Rate [Radial] Respiratory Rate 18 14 Blood Pressure 86/62 L 91/59 L 106/66 L Blood Pressure [Right Arm] Blood Pressure Mean Blood Pressure Mean [Right Arm] Blood Pressure Position Supine 02 Sat by Pulse Oximetry 96 96 98 Oxygen Delivery Method Room Air 08/13/25 06:26 08/13/25 06:30 08/13/25 07:00 Temperature Temperature Source Pulse Rate 81 83 80 Pulse Rate [Radial] Respiratory Rate 22 21 19 Blood Pressure 106/66 L 110/67 102/63 L Blood Pressure [Right Arm] Blood Pressure Mean 75 74 Blood Pressure Mean [Right Arm] Blood Pressure Position 02 Sat by Pulse Oximetry 98 97 98 Oxygen Delivery Method Room Air Room Air 08/13/25 07:30 08/13/25 08:00 08/13/25 08:45 Temperature Temperature Source Pulse Rate 79 79 71 Pulse Rate [Radial] Respiratory Rate 18 18 14 Blood Pressure 104/58 L 107/65 L 96/58 L Blood Pressure [Right Arm] Blood Pressure Mean 62 Blood Pressure Mean [Right Arm] Blood Pressure Position 02 Sat by Pulse Oximetry 96 97 96 Oxygen Delivery Method Room Air Room Air 08/13/25 09:00 08/13/25 09:08 08/13/25 09:30 Temperature Temperature Source Pulse Rate 85 79 88 Pulse Rate [Radial] Respiratory Rate 19 18 16 Blood Pressure 98/60 L 86/64 L 92/61 L Blood Pressure [Right Arm] Blood Pressure Mean 68 66 Blood Pressure Mean [Right Arm] Blood Pressure Position 02 Sat by Pulse Oximetry 96 97 96 Oxygen Delivery Method Room Air 08/13/25 10:00 08/13/25 10:30 Temperature Temperature Source Pulse Rate 82 79 Pulse Rate [Radial] Respiratory Rate 12 20 Blood Pressure 88/64 L 98/67 L Blood Pressure [Right Arm] Blood Pressure Mean 73 Blood Pressure Mean [Right Arm] Blood Pressure Position 02 Sat by Pulse Oximetry 97 97 Oxygen Delivery Method Room Air Lab Data Lab results reviewed: Yes I reviewed the patient's lab results. Lab Results 08/13/25 05:02: HCV Ab JELANI w/Rflx PCR Qn Negative, HIV Ag/Ab Combo Qual Negative 08/13/25 05:13: WBC 4.2 L, RBC 3.92 L, Hgb 11.9 L, Hct 34.2 L, MCV 87.2, MCH 30.4, MCHC 34.8, RDW 11.9, Plt Count 181, MPV 11.1 H, Neut % (Auto) 59.9, Lymph % (Auto) 5.1 L, Barrow % (Auto) 33.3 H, Eos % (Auto) 0.0 L, Baso % (Auto) 1.0, Neut # (Auto) 2.5, Lymph # (Auto) 0.2 L, Barrow # (Auto) 1.4 H, Eos # (Auto) 0.0, Baso # (Auto) 0.0, Total Counted 100, Neutrophils % (Manual) 58, Lymphocytes % (Manual) 10, Monocytes % (Manual) 32 H, Platelet Estimate Normal, RBC Morphology Normal, PT 16.8 H, INR 1.56 H, Sodium 124 L, Potassium 4.0, Chloride 95 L, C arbon Dioxide 20 L, Anion Gap 13.0, BUN 31 H, Creatinine 1.60 H, Estimated Creat Clear 54, Estimated GFR 43 L, Est GFR ( Amer) 52 L, Glucose 128 H, C alcium 8.2 L, Magnesium 1.8, Total Bilirubin 1.3, AST 27, ALT 28, Alkaline Phosphatase 74, Troponin I 0.04 H, Total Protein 5.4 L D, Albumin 2.9 L, Globulin 2.5, Albumin/Globulin Ratio 1.2, Lipase < 10 L 08/13/25 07:59: Troponin I 0.04 H 08/13/25 05:13 08/13/25 05:13 Orders (Tests/Meds): ED MEDICATIONS Generic Name Dose Route Start Last Admin Trade Name Freq PRN Reason Stop Dose Admin Sodium Chloride 1,000 mls @ 999 mls/hr 08/13/25 10:19 08/13/25 10:28 Sod Chlor 0.9% 1000ml Bag IV 08/13/25 11:19 999 mls/hr .Q1H1M ONE Administration Discontinued Medications Generic Name Dose Route Start Last Admin Trade Name Freq PRN Reason Stop Dose Admin Aspirin 325 mg 08/13/25 06:23 08/13/25 06:40 Aspirin 325mg Tablet PO 08/13/25 06:24 325 mg ONCE ONE Administration Hydromorphone HCl 1 mg 08/13/25 07:59 08/13/25 08:05 Hydromorphone 2mg/Ml Syringe IV 08/13/25 08:00 1 mg ONCE ONE Administration Sodium Chloride 1,000 mls @ 999 mls/hr 08/13/25 05:00 08/13/25 06:30 Sod Chlor 0.9% 1000ml Bag IV 08/13/25 06:00 Infused .Q1H1M PATRICK Infusion Cefepime HCl 2 gm/ Sodium 100 mls @ 200 mls/hr 08/13/25 06:25 08/13/25 09:09 Chloride IV 08/13/25 06:54 Infused ONCE ONE Infusion Metronidazole 500 mg in 100 mls @ 100 mls/hr 08/13/25 06:25 08/13/25 07:55 Flagyl 500mg/100ml Ivpb IV 08/13/25 07:24 Infused ONCE ONE Infusion Iopamidol 75 ml 08/13/25 06:15 08/13/25 06:16 Iopamidol-370 (76%);100ml Bottle IV 08/13/25 06:16 75 ml ONCE ONE Administration Morphine Sulfate 4 mg 08/13/25 04:57 08/13/25 05:02 Morphine 4mg/Ml Syringe IV 08/13/25 04:58 4 mg ONCE ONE Administration Morphine Sulfate 4 mg 08/13/25 06:55 08/13/25 06:57 Morphine 4mg/Ml Syringe IV 08/13/25 06:56 4 mg ONCE ONE Administration Sodium Chloride 10 ml 08/13/25 06:15 08/13/25 06:16 Sodium Chloride 0.9% 10ml Syr (Rad Only) IV 08/13/25 06:16 10 ml ONCE ONE Administration ORDERS Category Date Time Status CT abdomen pelvis w con Stat Cat Scan 08/13/25 04:57 Completed CBC w/Auto Diff [Complete Blood Count Auto Diff] Stat Lab 08/13/25 05:13 Completed CMP [Comprehensive Metabolic Panel] Stat Lab 08/13/25 05:13 Completed HIV Combo Stat Lab 08/13/25 05:02 Completed Hepatitis C Ab Qual. W/ RFX Stat Lab 08/13/25 05:02 Completed INR [Prothrombin Time INR] Stat Lab 08/13/25 05:13 Completed Lipase Stat Lab 08/13/25 05:13 Completed Magnesium Stat Lab 08/13/25 05:13 Completed Sodium,Urine Random Stat Lab 08/13/25 06:38 Ordered Troponin I Q3H Lab 08/13/25 05:13 Completed Troponin I Q3H Lab 08/13/25 07:59 Completed UA [Urinalysis and Microscopic] Stat Lab 08/13/25 06:38 Ordered Blood Culture Stat Micro 08/13/25 06:40 Received ECG Data Tracing #1: I reviewed this ECG and interpreted as documented below: Atrial fibrillation, ventricular rate of 87, subtle ST depression and T wave inversions in the precordial leads ECG initial impression date: 08/13/25 ECG initial impression time: 05:07 HEART Score History (anamnesis): Slightly suspicious ECG: Non-specific disturbance Age: >65 years Risk factors: 1-2 risk factors Troponin: 1-3x normal limit HEART Score: 5 Medical Decision Narrative: 69-year-old male with 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 History was obtained via interactive discussion with patient, chart review. On arrival, patient is [afebrile, hemodynamically stable, satting appropriately, alert, oriented x4, GCS 15], moving all extremities spontaneously. Full physical exam performed and significant for significant epigastric tenderness Differential includes but is not limited to bowel obstruction, perforation, gastritis, pancreatitis, colitis, dehydration, electrolyte derangement. Patient was given morphine, Zofran, 1 L NS for symptomatic management and correction of underlying abnormalities. Workup initiated including CBC CMP troponin EKG mag CT abdomen pelvis with IV contrast. EKG shows A-fib, this is new for patient. On re-evaluation, patient had borderline low blood pressures, improved after 1 L of IV fluids. Laboratory workup independently interpreted by me and significant for hyponatremia with sodium 124, well below patient's baseline. Patient is not neutropenic. INR mildly elevated. Creatinine elevated at 1.6, baseline around 1.3. Initial troponin elevated at 0.04. Lipase negative. Imaging independently interpreted by me and significant for diffuse esophageal thickening, enhancement of the colon with findings concerning for diverticulitis. See radiology read for full review of final results. EKG independently interpreted by me and significant for new onset A-fib, ventricular rate of 87, subtle ST depression in V3-V5 with T wave inversions. Patient given aspirin. Patient was initiated on cefepime and Flagyl for empiric coverage of diverticulitis/colitis. We are still awaiting CT read at this time. At this time care handed off to oncoming physician. <Aryan Gentile, - Last Filed: 08/13/25 10:45> Vital Signs: 08/13/25 05:00 08/13/25 05:06 08/13/25 05:30 Temperature 99.2 F Temperature Source Oral Pulse Rate 88 98 H Pulse Rate [Radial] 87 Respiratory Rate 16 Blood Pressure 114/67 93/62 L Blood Pressure [Right Arm] 114/67 Blood Pressure Mean Blood Pressure Mean [Right Arm] 82 Blood Pressure Position 02 Sat by Pulse Oximetry 96 96 96 Oxygen Delivery Method Room Air 08/13/25 06:00 08/13/25 06:07 08/13/25 06:26 Temperature Temperature Source Pulse Rate 91 H 87 81 Pulse Rate [Radial] Respiratory Rate 18 14 Blood Pressure 86/62 L 91/59 L 106/66 L Blood Pressure [Right Arm] Blood Pressure Mean Blood Pressure Mean [Right Arm] Blood Pressure Position Supine 02 Sat by Pulse Oximetry 96 96 98 Oxygen Delivery Method Room Air 08/13/25 06:26 08/13/25 06:30 08/13/25 07:00 Temperature Temperature Source Pulse Rate 81 83 80 Pulse Rate [Radial] Respiratory Rate 22 21 19 Blood Pressure 106/66 L 110/67 102/63 L Blood Pressure [Right Arm] Blood Pressure Mean 75 74 Blood Pressure Mean [Right Arm] Blood Pressure Position 02 Sat by Pulse Oximetry 98 97 98 Oxygen Delivery Method Room Air Room Air 08/13/25 07:30 08/13/25 08:00 08/13/25 08:45 Temperature Temperature Source Pulse Rate 79 79 71 Pulse Rate [Radial] Respiratory Rate 18 18 14 Blood Pressure 104/58 L 107/65 L 96/58 L Blood Pressure [Right Arm] Blood Pressure Mean 62 Blood Pressure Mean [Right Arm] Blood Pressure Position 02 Sat by Pulse Oximetry 96 97 96 Oxygen Delivery Method Room Air Room Air 08/13/25 09:00 08/13/25 09:08 08/13/25 09:30 Temperature Temperature Source Pulse Rate 85 79 88 Pulse Rate [Radial] Respiratory Rate 19 18 16 Blood Pressure 98/60 L 86/64 L 92/61 L Blood Pressure [Right Arm] Blood Pressure Mean 68 66 Blood Pressure Mean [Right Arm] Blood Pressure Position 02 Sat by Pulse Oximetry 96 97 96 Oxygen Delivery Method Room Air 08/13/25 10:00 08/13/25 10:30 Temperature Temperature Source Pulse Rate 82 79 Pulse Rate [Radial] Respiratory Rate 12 20 Blood Pressure 88/64 L 98/67 L Blood Pressure [Right Arm] Blood Pressure Mean 73 Blood Pressure Mean [Right Arm] Blood Pressure Position 02 Sat by Pulse Oximetry 97 97 Oxygen Delivery Method Room Air Lab Data Lab Results 08/13/25 05:02: HCV Ab JELANI w/Rflx PCR Qn Negative, HIV Ag/Ab Combo Qual Negative 08/13/25 05:13: WBC 4.2 L, RBC 3.92 L, Hgb 11.9 L, Hct 34.2 L, MCV 87.2, MCH 30.4, MCHC 34.8, RDW 11.9, Plt Count 181, MPV 11.1 H, Neut % (Auto) 59.9, Lymph % (Auto) 5.1 L, [place] % (Auto) 33.3 H, Eos % (Auto) 0.0 L, Baso % (Auto) 1.0, Neut # (Auto) 2.5, Lymph # (Auto) 0.2 L, [place] # (Auto) 1.4 H, Eos # (Auto) 0.0, Baso # (Auto) 0.0, Total Counted 100, Neutrophils % (Manual) 58, Lymphocytes % (Manual) 10, Monocytes % (Manual) 32 H, Platelet Estimate Normal, RBC Morphology Normal, PT 16.8 H, INR 1.56 H, Sodium 124 L, Potassium 4.0, Chloride 95 L, C arbon Dioxide 20 L, Anion Gap 13.0, BUN 31 H, Creatinine 1.60 H, Estimated Creat Clear 54, Estimated GFR 43 L, Est GFR ( Amer) 52 L, Glucose 128 H, C alcium 8.2 L, Magnesium 1.8, Total Bilirubin 1.3, AST 27, ALT 28, Alkaline Phosphatase 74, Troponin I 0.04 H, Total Protein 5.4 L D, Albumin 2.9 L, Globulin 2.5, Albumin/Globulin Ratio 1.2, Lipase < 10 L 08/13/25 07:59: Troponin I 0.04 H Orders (Tests/Meds): ED MEDICATIONS Generic Name Dose Route Start Last Admin Trade Name Freq PRN Reason Stop Dose Admin Sodium Chloride 1,000 mls @ 999 mls/hr 08/13/25 10:19 08/13/25 10:28 Sod Chlor 0.9% 1000ml Bag IV 08/13/25 11:19 999 mls/hr .Q1H1M ONE Administration Discontinued Medications Generic Name Dose Route Start Last Admin Trade Name Freq PRN Reason Stop Dose Admin Aspirin 325 mg 08/13/25 06:23 08/13/25 06:40 Aspirin 325mg Tablet PO 08/13/25 06:24 325 mg ONCE ONE Administration Hydromorphone HCl 1 mg 08/13/25 07:59 08/13/25 08:05 Hydromorphone 2mg/Ml Syringe IV 08/13/25 08:00 1 mg ONCE ONE Administration Sodium Chloride 1,000 mls @ 999 mls/hr 08/13/25 05:00 08/13/25 06:30 Sod Chlor 0.9% 1000ml Bag IV 08/13/25 06:00 Infused .Q1H1M PATRICK Infusion Cefepime HCl 2 gm/ Sodium 100 mls @ 200 mls/hr 08/13/25 06:25 08/13/25 09:09 Chloride IV 08/13/25 06:54 Infused ONCE ONE Infusion Metronidazole 500 mg in 100 mls @ 100 mls/hr 08/13/25 06:25 08/13/25 07:55 Flagyl 500mg/100ml Ivpb IV 08/13/25 07:24 Infused ONCE ONE Infusion Iopamidol 75 ml 08/13/25 06:15 08/13/25 06:16 Iopamidol-370 (76%);100ml Bottle IV 08/13/25 06:16 75 ml ONCE ONE Administration Morphine Sulfate 4 mg 08/13/25 04:57 08/13/25 05:02 Morphine 4mg/Ml Syringe IV 08/13/25 04:58 4 mg ONCE ONE Administration Morphine Sulfate 4 mg 08/13/25 06:55 08/13/25 06:57 Morphine 4mg/Ml Syringe IV 08/13/25 06:56 4 mg ONCE ONE Administration Sodium Chloride 10 ml 08/13/25 06:15 08/13/25 06:16 Sodium Chloride 0.9% 10ml Syr (Rad Only) IV 08/13/25 06:16 10 ml ONCE ONE Administration ORDERS Category Date Time Status CT abdomen pelvis w con Stat Cat Scan 08/13/25 04:57 Completed CBC w/Auto Diff [Complete Blood Count Auto Diff] Stat Lab 08/13/25 05:13 Completed CMP [Comprehensive Metabolic Panel] Stat Lab 08/13/25 05:13 Completed HIV Combo Stat Lab 08/13/25 05:02 Completed Hepatitis C Ab Qual. 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 History was obtained via interactive discussion with patient, chart review. On arrival, patient is [afebrile, hemodynamically stable, satting appropriately, alert, oriented x4, GCS 15], moving all extremities spontaneously. Full physical exam performed and significant for significant epigastric tenderness Differential includes but is not limited to bowel obstruction, perforation, gastritis, pancreatitis, colitis, dehydration, electrolyte derangement. Patient was given morphine, Zofran, 1 L NS for symptomatic management and correction of underlying abnormalities. Workup initiated including CBC CMP troponin EKG mag CT abdomen pelvis with IV contrast. EKG shows A-fib, this is new for patient. On re-evaluation, patient had borderline low blood pressures, improved after 1 L of IV fluids. Laboratory workup independently interpreted by me and significant for hyponatremia with sodium 124, well below patient's baseline. Patient is not neutropenic. INR mildly elevated. Creatinine elevated at 1.6, baseline around 1.3. Initial troponin elevated at 0.04. Lipase negative. Imaging independently interpreted by me and significant for diffuse esophageal thickening, enhancement of the colon with findings concerning for diverticulitis. See radiology read for full review of final results. EKG independently interpreted by me and significant for new onset A-fib, ventricular rate of 87, subtle ST depression in V3-V5 with T wave inversions. Patient given aspirin. Patient was initiated on cefepime and Flagyl for empiric coverage of diverticulitis/colitis. We are still awaiting CT read at this time. At this time care handed off to oncoming physician. Aryan Gentile DO I received handoff of care on this patient at 7 AM. Patient initially presented to the emergency department today for evaluation of worsening epigastric pain with weakness and diarrhea. Patient arrived in the emergency department today and had an EKG showing atrial fibrillation. He has been borderline hypotensive with blood pressures in the 90s over 60s since arrival. We have given a total of 2 L of fluid and his MAP has remained around 65. His labs resulted showing significant hyponatremia with a sodium of 124, his last on file was 139. He also has a type II NSTEMI with no significant rise in his delta troponin. No evidence of acute kidney injury. CT scan of the abdomen and pelvis showing a persistent esophageal mass with new onset lymph node metastases as well as diffuse pancolitis. Due to the fact that this patient follows at [facility] I feel that he would be better managed at [facility] where they can manage all of his current medical conditions as well as his underlying cancer. I have had an interactive discussion with the [facility] transfer center and Dr. Castañeda has agreed to accept the patient for transfer. He will be taken to [facility]. Patient was transferred in stable condition Procedures <Kenneth Daniel MD - Last Filed: 08/13/25 07:03> Risk/Benefits of Procedure(s) Were Explained: Yes Critical Care <Kenneth Daniel MD - Last Filed: 08/13/25 07:03> Critical Care Time Critical Care Time: No
[2025-08-13 05:45] LABS: Alanine Aminotransferase 28 U/L (12-78); Albumin Level 2.9 g/dl (3.5-5.0); Albumin/Globulin Ratio 1.2 (1.1-1.8); Alkaline Phosphatase 74 U/L (38-126); Anion Gap 13.0 mEq/L (5-15); Aspartate Amino Transferase 27 U/L (17-59); Bilirubin,Total 1.3 mg/dl (0.2-1.3); Blood Urea Nitrogen 31 mg/dl (9-20); Calcium 8.2 mg/dl (8.4-10.2); Carbon Dioxide 20 mmol/L (22.0-30.0); Chloride 95 mmol/L (98-107); Creatinine Clearance Estimated 54 mL/min (50-200); Creatinine,Serum 1.60 mg/dl (0.66-1.25); Estimated Glomerular Filt Rate 43 ml/min (>60); GFR (African American) 52 ML/MIN (>60); Globulin 2.5 g/dL (1.3-3.2); Glucose 128 mg/dl (74-100); Magnesium 1.8 mg/dl (1.6-2.3); Potassium 4.0 mmoL/L (3.5-5.1); Sodium 124 mmol/L (136-145); Total Protein,Serum 5.4 g/dl (6.3-8.2)
[2025-08-13 05:49] LABS: INR 1.56 (0.9-1.1); Prothrombin Time 16.8 seconds (10.1-12.5)
[2025-08-13 05:57] LABS: Troponin I 0.04 ng/ml (0.00-0.034)
[2025-08-13 05:59] LABS: Hematocrit 34.2 % (42.0-52.0); Hemoglobin 11.9 g/dL (14.1-18.0); Immature Granulocytes % 0.7 %; Lipase < 10 U/L (23-300); Mean Corpuscular HGB Conc 34.8 g/dL (31.8-35.4); Mean Corpuscular Hemoglobin 30.4 pg (27.0-31.2); Mean Corpuscular Volume 87.2 fl (80-94); Nucleated Red Blood Cells % 1.7 %; Platelet Count 181 K/mm3 (142-424); Red Blood Count 3.92 M/mm3 (4.60-6.20); Red Cell Distribution Width-SD 38.0 fL; White Blood Count 4.2 K/mm3 (4.8-10.8)
[2025-08-13] MEDS: IOPAMIDOL-370 (76%);100ML BOTTLE 75 ML IV (06:16)
[2025-08-13] MEDS: SODIUM CHLORIDE 0.9% 10ML SYR (RAD ONLY) 10 ML IV (06:16)
[2025-08-13 06:23] LABS: Hepatitis C Ab Qual. W/ RFX NEGATIVE (Negative)
--- NOTE | 2025-08-13 06:29 | PC.NURSE ---
ed provider at the bedside updating pt on POC
[2025-08-13] MEDS: ASPIRIN 325MG TABLET 325 MG PO (06:40)
[2025-08-13] MEDS: METRONIDAZ/SOD CHL 500 MG/100 ML PIGGYBACK 100 MG IV (06:40)
--- NOTE | 2025-08-13 07:42 | PC.NURSE ---
assisted pt back into a comfortable position in bed. no urine sample at this time
--- NOTE | 2025-08-13 08:00 | PC.NURSE ---
2nd Trop sent [id number]
[2025-08-13] MEDS: HYDROMORPHONE 2MG/ML SYRINGE 1 MG IV (08:05)
[2025-08-13] MEDS: CEFEPIME HCL 2 GM in 0.9 % SODIUM CHLORIDE 100 ML IV (08:08)
[2025-08-13 08:29] LABS: Troponin I 0.04 ng/ml (0.00-0.034)
--- NOTE | 2025-08-13 08:56 | PC.NURSE ---
Called radiology to check on status of CT scan read- states [facility] is really slow today has been assigned but not started reading yet. She will message them to check on it. informed
[2025-08-13 09:58] LABS: RBC Morphology Normal; Total Cells Counted 100
--- NOTE | 2025-08-13 10:12 | PC.NURSE ---
calling [facility] at this time
--- NOTE | 2025-08-13 10:23 | PC.NURSE ---
images have been power shared and disk made
--- NOTE | 2025-08-13 10:26 | PC.NURSE ---
Dr. Gentile speaking with at this time.
--- NOTE | 2025-08-13 10:52 | PC.NURSE ---
EMS notified of transfer.
[2025-08-14 11:44] LABS: Acinetobacter calcoaceticus-ba Not Detected; Bacteroides fragilis Not Detected; CTX-M Not Detected; Candida auris Not Detected; Candida glabrata Not Detected; Enterobacterales Not Detected; Enterococcus faecalis Not Detected; Enterococcus faecium Not Detected; IMP Not Detected; KPC Not Detected; Klebsiella aerogenes Not Detected; Klebsiella pneumoniae grp Not Detected; NDM Not Detected; Proteus spp. Not Detected; Salmonella spp. Not Detected; Serratia marcescens Not Detected; Staphylococcus epidermidis Not Detected; Staphylococcus lugdunensis Not Detected; Staphylococcus spp. Not Detected; Stenotrophomonas maltophilia Not Detected; Streptococcus agalactiae(GrpB) Not Detected; Streptococcus pyogenes Group A Not Detected; Streptococcus spp. Not Detected; VIM Not Detected
--- NOTE | 2025-08-14 11:54 | PC.NURSE ---
Blood culture results faxed to [facility]
== END 2025-08-13 11:17 | disposition other institution (70) ==
PROVIDERS: Emergency Medicine; Emergency Provider Student in an Organized Health Care Education/Training Program
DX: A41.9 Sepsis, unspecified organism (principal); B96.5 Pseudomonas (aeruginosa) (mallei) (pseudomallei) as the cause of diseases classified elsewhere; R10.13 Epigastric pain; E87.1 Hypo-osmolality and hyponatremia; I21.4 Non-ST elevation (NSTEMI) myocardial infarction; I48.91 Unspecified atrial fibrillation; K52.9 Noninfective gastroenteritis and colitis, unspecified; I10 Essential (primary) hypertension; C15.9 Malignant neoplasm of esophagus, unspecified; Z92.21 Personal history of antineoplastic chemotherapy
CPT/HCPCS: 74177; 80053; 83690; 83735; 84484; 85007; 85025; 85610; 86803; 87040; 87077; 87154; 87186; 87389; 93005; 96361; 96365; 96375; 96376; 99285; J0692; J1171; J1836; J2270; J7030; Q9967

== ENCOUNTER 2025-08-26 07:08 | Emergency (ER) | payer MEDICARE, SELFPAY ==
--- OUTSIDE RECORDS SUMMARY | 2025-07-06 14:45 | XMS_ITS | Encounter Summary ---
Author Organization [facility] Address [address] 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 Procedures PET/CT FDG Skull Base To Mid Thigh Kim Machado MD [address] [address] Phone: tel: fax: Referral ID Status Reason Start Date Expiration Date Visits Re quested Visits Authorized [id number] Closed 07/06/2025 01/05/2027 2 2 * Consultation (Routine) - Closed Specialty Diagnoses / Procedures Referred By Broderick olivares Referred To Contact Medical Oncology / Oncology Diagnoses 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 Kim Machado MD [address] [address] Phone: tel: fax: [facility] [address] [place] [address] Phone: tel: fax: Referral ID Status Reason Start Date Expiration Date V isits Requested Visits Authorized [id number] Closed Specialty Services Required 07/06/2025 01/05/2027 1 1 Reason for Visit * Reason Comments New Patient Encounter Details Date Type Department Care Team (Late st Contact Info) Description 07/06/2025 2:45 PM EDT Office Visit [facility] [address] [place] [address] Kim Machado MD [address] [place] [address] 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 (CMS/HCC) (Primary Dx) Social History Tobacco Use Types Packs/Day Years Used Date Smoking Tobacco: Never Smokeless Tobacco: Never Tobacco Cessation:Counseling Given: No Alcohol Use Standard Drinks/Week Comments Never 0 (1 standard drink = 0.6 oz pur e alcohol) PHQ-2 Answer Date Recorded Patient Health Questionnaire-2 Score 0 08/23/2024 Sex and Gender Information Value Date Recorded Sex Assigned at Male 07/23/2024 9:40 AM EDT Legal Sex Male 8:50 PM EDT Gender Identity Male 07/23/2024 9:40 AM EDT Sexual Orientation Not on file documented as of this encounter Last Filed Vital Signs Vital Sign Reading Time Taken Comments Blood Pressure 116/76 07/06/2025 2:27 PM EDT Pulse 60 07/06/2025 2:27 PM EDT Temperature 36.4 C (97.6 F) 07/06/2025 2:27 PM EDT Respiratory Rate 16 07/06/2025 2:27 PM EDT Oxygen Saturation 97% 07/06/2025 2:27 PM EDT Inhaled Oxygen Concentration - - Weight 94.1 kg (207 lb 7.3 oz) 07/06/2025 2:27 P M EDT Height 185.4 cm (6' 1 ) 07/06/2025 2:27 PM EDT Body Mass Index 27.37 07/06/2025 2:27 PM EDT documented in this encounter Functional Status * Calculated C-SSRS Risk Score (Lifetime/Recent) Answer Date of Assessment Author No Risk Indicated 07/06/2025 2:30 PM EDT Serene Bella * Question Answer Date of Assessment Author 1. Wish to be (Past 1 Month) No 025 2:30 PM EDT Serene Bella 2. Non-Specific Active Suici pearl Thoughts (Past 1 Month) No 07/06/2025 2:30 PM EDT Alex Bella R 6. Suicidal Behavior (Lifetime) No 2:30 PM EDT Serene Bella documented as of this encounter Miscellaneous Notes * Progress Notes - Gagandeep Mast, DDS - 07/06/2025 2:45 PM EDT Images from the original note were not included. [facility] Department of Surgery Section of Thoracic Surgery History & Physical Note Consulting MD: Dr. Darius Ken Reason for Consultation/Chief complaint: Biopsy of distal esophagus: Adenocarcinoma History of Present Illness: Justin Best is a 69 y.o. male w/ PMH HLD, HTN, BPH, recurrent nephrolithiasis, CKD stage 3a, who presents to the outpatient clinic for evaluation of EGD biopsy result of invasive moderately differentiated adenocarcinoma. Patient states he has had multi year history of generalized upper gi discomfort but does not believe it is related to recent acute changes. Recently he had issues with upper stomach, diffuse dull pain and sensation that does not wade. Additionally, he for the past couple months had difficulty with the sensation of food getting stuck in his esophagus. This lead to work up of his symptoms with EGD which per report revealed a circumferential fungating friable mass that biopsy showcased adenocarcinoma. Patient presents today to cardiothoracic clinic to evaluate. Past Medical History: Past Medical History Pertinent Negatives[1] CKD Stage 3a Past Surgical History: Surgical History[2] Social History: Tobacco - never smoker Alcohol - none Drugs - none Family Medical History: family history includes Cancer in his father. Allergies: Allergies[3]. States rash in young adulthood Home Medications: Current Medications[4] ROS: General: no fevers or chills, no heat or cold intolerance, no subjective weight loss HEENT: no changes in vision, no sore throat, no changes in hearing, no tinnitus, no nasal drainage CV: no chest pain, no palpitations, no lightheadedness, no PND, no orthopnea, no LE swelling, no claudication Pulm: no shortness of breath, no cough, no hemoptysis GI: no nausea, no vomiting, no constipation, no diarrhea, no melena, no hematochezia, moderate lower dysphagia, burning dull pain of upper stomach that does not wade Skin: no rash Neuro: no numbness, no tingling, no headache, no difficulties with speech, no gait disturbance Heme: no easy bruising, no bleeding from the gums Endo: No polyuria or polydypsia Psych: no depression or anxiety Physical exam: Visit Vitals BP 116/76 (BP Location: Right arm) Pulse 60 Temp 36.4 ??C (97.6 ??F) (Oral) Ht 1.854 m (6' 1 ) Wt 94.1 kg (207 lb 7.3 oz) SpO2 97% BMI 27.37 kg/m?? General: alert and oriented, appropriate Lungs: CTA B, no wheezes or rhonchi Heart: RRR, no murmurs Abdomen: soft NT/ND, normal bowel sounds. Tender to palpation in epigastric region. Lymph nodes: no palpable supraclavicular or cervical adenopathy Extremities: no peripheral edema Skin: no rash, no cyanosis and warm to touch Psychiatric: oriented to person/place/time and normal mood/affect Imaging: No new imaging Additional testing: Previous EGD and biopsy (see external records in media: 07/05/25): Assessment and Plan: Justin Best is a 69 y.o. male who presents with new diagnosis of moderately differentiatedadenocarcinoma of the GE junction from EGD on 06/17/25. Pt appropriate for prompt PET scan for staging of tumor to direct treatment. Pt elects to work with oncology services in [place] to unify aspects of surgical and medical care and referral is made to said department. Patient to RTC with PET scan results. Tentative conversations regarding MED ONC and surgical treatment were had and all questions were answered. Gagandeep Mast DDS, Medical Student 07/06/25 2:48 PM [1] Past Medical History: Diagnosis Date Blood urine 2023 Hypertension 1999 Kidney stone Skin cancer 2004 [2] Past Surgical History: Procedure Laterality Date APPENDECTOMY 2020 BACK SURGERY 2001 CHOLECYSTECTOMY 1985 GALLBLADDER SURGERY 1998 [3] Allergies Allergen Reactions Penicillins Unknown - Patient states they do not know rxn details [4] Current Outpatient Medications: alfuzosin (Uroxatral) 10 MG 24 hr tablet, Take 1 tablet (10 mg) by mouth 1 (one) time each day., Disp: , Rfl: bisoprolol (Zebeta) 5 MG tablet, Take 1 tablet (5 mg) by mouth 1 (one) time each day. Patient states half a tablet daily., Disp: , Rfl: Multiple Vitamin (multivitamin) capsule, Take 1 capsule by mouth 1 (one) time each day., Disp: , Rfl: rosuvastatin (Crestor) 10 MG tablet, Take 1 tablet (10 mg) by mouth 1 (one) time each day., Disp: ,Rfl: Cosigned by Kim Machado MD at 07/07/2025 10:51 PM EDT Associated attestation - Kim Machado MD - 07/07/2025 10:51 PM EDT I saw and evaluated the patient with the medical/BOAT DECKHAND/PA student. I discussed the case with the medical/BOAT DECKHAND/PA student and agree with the findings and plan as documented. I personally performed the Examand Medical Decision Making. Attending Addendum: I reviewed with the medical student, during the patient's visit about the patient's history, exam, diagnosis, and the plan of treatment. I reviewed all of the patient's prior records and testing. I interviewed and examined the patient personally. I agree with the plan of care as follows: newly diagnosed distal esophageal adenocarcinoma. This appears at least stage 2 vs 3 based on size on EGD and his symptoms. We discussed the importance of diagnosis and staging. I have recommended PET scan for staging. We discussed that if this is stage 2 or 3 disease we would plan for neoadjuvant treatment followed by esophagectomy. If this is stage 4 disease, he would receive systemic therapy only. He verbalized understanding. Return to clinic after PET. Will refer to [facility] at his request. Kim Marcano MD finishing powder press operator Thoracic Surgery documented in this encounter Plan of Treatment Upcoming Encounters Date Type Department Care Team (Latest Contact Info) Description 09/01/2025 9:15 AM EDT Clinical Support [facility] [address] [place] [id number] 09/01/2025 9:30 AM EDT Office Visit [facility] Multidisciplinary Oncology Clinic [address] Aristides Reina MD [address] [place] [address] 09/01/2025 11:00 AM EDT Appointment [facility] 2 [address] [place] [address] 09/03/2025 10:30 AM EDT Appointment [facility] 2 [address] [place] [id number] 09/15/2025 9:30 AM EST Appointment [facility] 2 [address] [place] [address] 09/17/2025 9:00 AM EST Appointment [facility] 2 [address] [place] [address] 09/21/2025 8:45 AM EST Office Visit [facility] [address] [facility], [address] [place] [id number] Juarez Recinos MD [address] [place] [address] 09/28/2025 8:00 AM EST Appointment [facility] PET Scan [address] [place] [address] 09/28/2025 9:00 AM EST Appointment [facility] PET Scan [address] [place] [address] 09/28/2025 10:15 AM EST Office Visit [facility] [address] 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 * Moderate FDG activity fusing into right upper paratracheal enlarged lymph node and moderate FDG activity in the right hilar/subcarinal region are concerning for metastatic process. Other cervical lymph nodes most prominent on the left group 1 b are indeterminate. * Thyroid gland with focal abnormal uptake in the left side fusing into ill- defined complex nodule with soft tissue component measuring about 3.7 x 2.6 cm. (Series 202 image 505. This is concerning for another primary malignancy. Ultrasound thyroid and tissue sampling are recommended. * Prostate gland is enlarged with heterogenous FDG activity is nonspecific. Recommend clinical correlation and PSA correlation. CRITICAL RESULT: No. COMMUNICATION: Per this written report. Drafted by Quoc Pratt on 07/28/2025 11:21 AM Final report signed by Quoc Pratt on 07/28/2025 12:11 PM Narrative 07/28/2025 12:11 PM EDT CLINICAL INDICATION: 69 y.o. male with recent biopsy-proven distal esophageal adenocarcinoma. PET/CT for subsequent treatment strategy. TECHNIQUE: Preparation: Last oral intake (except water) on 07/16/2025 at 1830. Diabetic: No. Blood glucose at time of FDG administration: 117 mg/dL. Radiopharmaceutical: 11.88 mCi of F-18 FDG administered intravenously at right antecubital fossa at 10:33 AM. Incubation interval: 56 minutes. Oral contrast: Not applicable. Positioning: Arms raised. PET/CT scanner: Nicol 550. PET/CT acquisition: [id number]. Standardized uptake value (SUV): Corrected for body weight only. CT: Low-dose, [id number], without intravenous contrast. TOTAL DLP (Dose Length Product): 680.96 mGy cm. COMPARISON/CORRELATION: No comparison. FINDINGS: Technical quality: Diagnostic. Measurements: Unless otherwise specified, all SUVs refer to maximum value in the target (mSUV). Reference: 3.4 CT linear measurements performed on axial images. Head and Neck: The brain demonstrates physiologic activity. MRI is better in parenchymal evaluation if clinically warranted. Thyroid gland with focal abnormal uptake in the left side fusing into ill- defined complex nodule with soft tissue component measuring about 3.7 x 2.6 cm. (Series 202 image 505). Remaining smaller size right thyroid lobe show mild diffuse activity without obvious focal lesion. Multiple small bilateral near symmetric subcentimeter lymph nodes in the neck, most pronounced at in the left group Ib SUV max 4.6. (Series 202 image 574) Chest: Right upper paratracheal soft tissue nodule measuring 1.4 cm in short axis showing heterogenous soft tissue density with mild to moderate FDG activity SUV max 3.3 (series 202 image 508) Mild to moderate FDG activity in the right perihilar SUV max 3.7 and subcarinal region SUV max 3.5 without definite large lymph nodes (series 202 image 450) No suspicious metabolically active pulmonary nodules or masses. Sequelae of prior granulomatous insult. Aortic and coronary calcifications. No pleural effusion, pericardial effusion or pneumothorax. Abdomen and Pelvis: Intense FDG activity fusing into distal esophagus throughout proximal stomach which appears to be moderate hiatal hernia and showing a symmetric wall thickening and focal air pocket not in close proximity to expected lumen which is difficult to evaluate because of under distention. (Series 202 image 390). SUV max 29.7. Prostate gland is enlarged with heterogenous FDG activity is nonspecific. Recommend clinical correlation and PSA correlation. No suspicious metabolically active or pathologically enlarged retroperitoneal or pelvic adenopathy. Heterogenous FDG activity within the bowel limiting evaluation. Cholecystectomy changes. Remaining visceral organs without focal abnormal uptake. No ascites or drainable fluid collection Skeleton and Soft Tissues: Area of extra osseous cortical bone formation at the right proximal femur is partially seen without focal abnormal activity need clinical correlation. No suspicious metabolically active osseous aggressive osseous lytic or sclerotic lesions within the imaged [id number]. Multilevel degenerative changes. Procedure Note Quoc Pratt MD - 07/28/2025 CLINICAL INDICATION: 69 y.o. male with recent biopsy-proven distal esophageal adenocarcinoma.PET/CT for subsequent treatment strategy. TECHNIQUE: Preparation: Last oral intake (except water) on 07/16/2025 at 1830. Diabetic: No. Blood glucose at time of FDG administration: 117 mg/dL. Radiopharmaceutical: 11.88 mCi of F-18 FDG administered intravenously atright antecubital fossa at 10:33 AM. Incubation interval: 56 minutes. Oral contrast: Not applicable. Positioning: Arms raised. PET/CT scanner: Nicol 550. PET/CT acquisition: [id number]. Standardized uptake value (SUV): Corrected for body weight only. CT: Low-dose, [id number], without intravenous contrast. TOTAL DLP (Dose Length Product): 680.96 mGy cm. COMPARISON/CORRELATION: No comparison. FINDINGS: Technical quality: Diagnostic. Measurements: Unless otherwise specified, all SUVs refer to maximum valuein the target (mSUV). Reference: 3.4 CT linear measurements performed on axial images. Head and Neck: The brain demonstrates physiologic activity. MRI is better in parenchymalevaluation if clinically warranted. Thyroid gland with focal abnormal uptake in the left side fusing intoill-defined complex nodule with soft tissue component measuring about 3.7x 2.6 cm. (Series 202 image 505). Remaining smaller size right thyroidlobe show mild diffuse activity without obvious focal lesion. Multiple small bilateral near symmetric subcentimeter lymph nodes in theneck, most pronounced at in the left group Ib SUV max 4.6. (Series 202image 574) Chest: Right upper paratracheal soft tissue nodule measuring 1.4 cm in short axisshowing heterogenous soft tissue density with mild to moderate FDGactivity SUV max 3.3 (series 202 image 508) Mild to moderate FDG activity in the right perihilar SUV max 3.7 andsubcarinal region SUV max 3.5 without definite large lymph nodes ( image 450) No suspicious metabolically active pulmonary nodules or masses. Sequelae of prior granulomatous insult. Aortic and coronary calcifications. No pleural effusion, pericardial effusion or pneumothorax. Abdomen and Pelvis: Intense FDG activity fusing into distal esophagus throughout proximalstomach which appears to be moderate hiatal hernia and showing a symmetricwall thickening and focal air pocket not in close proximity to expectedlumen which is difficult to evaluate because of under distention. ([id number] image 390). SUV max 29.7. Prostate gland is enlarged with heterogenous FDG activity is nonspecific.Recommend clinical correlation and PSA correlation. No suspicious metabolically active or pathologically enlargedretroperitoneal or pelvic adenopathy. Heterogenous FDG activity within the bowel limiting evaluation.Cholecystectomy changes. Remaining visceral organs without focal abnormaluptake. No ascites or drainable fluid collection Skeleton and Soft Tissues: Area of extra osseous cortical bone formation at the right proximal femuris partially seen without focal abnormal activity need clinicalcorrelation. No suspicious metabolically active osseous aggressive osseous lytic orsclerotic lesions within the imaged [id number]. Multilevel degenerative changes. IMPRESSION: *Intense radiotracer activity at the distal esophagus/proximal stomach inthe expected hiatal hernia abnormal mass with a focal gas pocketconsistent with recent biopsy-proven malignancy for clinicalcorrelation. *Moderate FDG activity fusing into right upper paratracheal enlargedlymph node and moderate FDG activity in the right hilar/subcarinal regionare concerning for metastatic process. Other cervical lymph nodes mostprominent on the left group 1 b are indeterminate. *Thyroid gland with focal abnormal uptake in the left side fusing intoill- defined complex nodule with soft tissue component measuring about 3.7x 2.6 cm. (Series 202 image 505. This is concerning for another primarymalignancy. Ultrasound thyroid and tissue sampling are recommended. *Prostate gland is enlarged with heterogenous FDG activity isnonspecific. Recommend clinical correlation and PSA correlation. CRITICAL RESULT: No. COMMUNICATION: Per this written report. 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
--- OUTSIDE RECORDS SUMMARY | 2025-07-21 10:00 | XMS_ITS | Encounter Summary ---
Author Organization Healthcare Address 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 Kim Machado MD [id number] [place] [address] Phone: tel: fax: [facility] [address] [facility]nd [place] [address] Phone: tel: fax: Referral ID Status Reason Start Date Expiration Date V isits Requested Visits Authorized [id number] Closed Specialty Services Required 07/06/2025 01/05/2027 1 1 Encounter Details Date Type Department Care Team (Latest Contact Info) Description 07/21/2025 10:00 AM EDT Office Visit [facility] Multidisciplinary Oncology Clinic [address] [place] [address] Aristides Reina MD [address] [place] [address] 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) [...] 1955 Referring Physician:Kim Machado MD [address] [address] Encounter Date: 07/21/2025 Chief Complaint: Establish care [...] by me; any relevant updates made in [facility]. Relevant history includes: Past Medical History[1] Oncologic History: Oncology History No history exists. Past Surgical History: Reviewed by me; any relevant updates made in [facility]. Relevant history includes: Surgical History[2] Family History: Reviewed by me; any relevant updates made in [facility]. Relevant history includes: Family History[3] Father with [...] Social Connections: Unknown (08/19/2023) Received from [facility] Family and Community Support Help with Day-to-Day Activities: Not on file Lonely or Isolated: Not on file Intimate Partner Violence: Unknown (08/19/2023) Received from [facility] Abuse Screen Unsafe at Home or Work/School: Not on file Feels Threatened by Someone?: Not on file Does Anyone Keep You from Contacting Others or Doint Things Outside the Home?: Not on file Physical Sign of Abuse Present: Not on file Housing Stability: Unknown (08/19/2023) Received from [facility] Housing Stability Current Living Arrangements: Not on [...] appear normal. Labs, Imaging, Pathology: Reviewed in [facility] and/or Care everywhere, notable as discussed in [...] medical history of hypertension who presents to [facility] clinic for evaluation and management of recently [...] Durvalumab in Gastric and GEJ Cancer AKA MATTERBILL trial published April 10 2025. A total [...] above. Aristides Reina MD PGY-4 Fellow, Hematology/Oncology [facility] Pager: [phone] [1] Past Medical History: Diagnosis Date Blood [...] each day., Disp: ,Rfl: Cosigned by Que Gnetile MD at 07/22/2025 9:09 AM EDT Associated [...] and wished to proceed with the treatment. Radha GoldmanD, [facility] Clinical Oncology Pharmacist documented in this encounter Plan of Treatment Upcoming Encounters Date Type Department Care Team (Latest Contact Info) Description 09/01/2025 9:15 AM EDT Clinical Support [facility] Multidisciplinary Oncology Clinic [address] [place] [phone] 09/01/2025 9:30 AM EDT Office Visit [facility] [address] [place] [phone] Aristides Reina MD [address] [place] [address] 09/01/2025 11:00 AM EDT Appointment [facility] 2 [address] [place] [phone] 09/03/2025 10:30 AM EDT Appointment [facility] [address] [place] [phone] 09/15/2025 9:30 AM EST Appointment [facility] [address] [place] [phone] 09/17/2025 9:00 AM EST Appointment [facility] [address] [place] [phone] 09/21/2025 8:45 AM EST Office Visit [facility] [address] [facility], [address] [place] [phone] Juarez Recinos MD [address] [place] [address] 09/28/2025 8:00 AM EST Appointment [facility] PET Scan [address] [place] [phone] 09/28/2025 9:00 AM EST Appointment [facility] PET Scan [address] [place] [phone] 09/28/2025 10:15 AM EST Office Visit [facility] [address] [facility]nd [place] [phone] Kim Machado MD [address] [facility] [address] [place] [phone] 01/13/2026 12:00 PM EST Office Visit [facility] [address] [place] [address] Eros Mejia MD [address] [place] [address] documented as of this encounter Procedures Procedure [...] documented in this encounter Results * (ABNORMAL) Comprehensive metabolic panel (08/18/2025 9:55 AM EDT) Glucose, Plasma 161(H) 74 - 99 mg/dL 08/18/2025 11:15 AM EDT [facility] BUN, Plasma 24(H) 8 - 23 mg/dL 08/18/2025 11:15 AM EDT [facility] Creatinine, Plasma 1.18 0.70 - 1.20 mg/dL 08/18/2025 11:15 AM EDT [facility] BUN/Creatinine Ratio 20 08/18/2025 11:15 AM EDT [facility] Sodium, Plasma 138 136 - 145 mmol/L 08/18/2025 11:15 AM EDT [facility] Potassium, Plasma 4.2 3.6 - 4.9 mmol/L 08/18/2025 11:15 AM EDT [facility] Chloride, Plasma 107 97 - 107 mmol/L 08/18/2025 11:15 AM EDT [facility] CO2, Plasma 19(L) 22 - 29 mmol/L 08/18/2025 11:15 AM EDT [facility] Anion Gap 12 6 - 16 mmol/L 08/18/2025 11:15 AM EDT [facility] Total Calcium, Plasma 8.6(L) 8.9 - 10.2 mg/dL 08/18/2025 11:15 AM EDT [facility] Total Protein 5.8(L) 6.3 - 7.9 g/dL 08/18/2025 11:15 AM EDT [facility] Albumin, Plasma 3.0(L) 3.5 - 5.2 g/dL 08/18/2025 11:15 AM EDT [facility] AST, Plasma 35 10 - 50 U/L 08/18/2025 11:15 AM EDT [facility] ALT, Plasma 47 10 - 50 U/L 08/18/2025 11:15 AM EDT [facility] Alkaline Phosphatase, Plasma 60 40 - 115 U/L 08/18/2025 11:15 AM EDT [facility] Total Bilirubin, Plasma 0.4 0.2 - 1.1 mg/dL 08/18/2025 11:15 AM EDT [facility] eGFRcr 66.4 mL/min/1.7 3m*2 08/18/2025 11:15 AM EDT [facility] Comment:Reported eGFRcr in m L/min/1.73m2 is based the CKD-EPI 2020 equation that does not use a race coefficient. Blood Blood sample taken from central line / Unknown (Central Line) Existing Catheter / Unknown 08/18/2025 9:55 AM EDT 08/18/2025 10:44 AM EDT us Que Gentile MD LAB BLOOD ORDERABLES Final R esult [facility] [address] [place] [address] * (ABNORMAL) CBC and differential (08/18/2025 9:55 AM EDT) WBC Count 7.71 3.70 - 10.30 10*3/uL LAB HEMATOLOGY METHOD 08/18/2025 10:37 AM EDT [facility] RBC Count 3.49(L) 4.60 - 6.10 10*6/uL LAB HEMATOLOGY METHOD 08/18/2025 10:37 AM EDT [facility] HGB 10.5(L) 13.7 - 17.5 g/dL LAB HEMATOLOGY METHOD 08/18/2025 10:37 AM EDT [facility] HCT 31.7(L) 40.0 - 51.0 % LAB HEMATOLOGY METHOD 08/18/2025 10:37 AM EDT [facility] Platelet Count 276 155 - 369 10*3/uL LAB HEMATOLOGY METHOD 08/18/2025 10:37 AM EDT [facility] MCV 91 79 - 98 fL LAB HEMATOLOGY METHOD 08/18/2025 10:37 AM EDT [facility] MCH 30.1 26.0 - 32.0 pg LAB HEMATOLOGY METHOD 08/18/2025 10:37 AM EDT [facility] MCHC 33.1 30.7 - 35.5 g/dL LAB HEMATOLOGY METHOD 08/18/2025 10:37 AM EDT [facility] RDW 13.1 11.5 - 14.5 % LAB HEMATOLOGY METHOD 08/18/2025 10:37 AM EDT [facility] MPV 10.2 8.8 - 12.5 fL LAB HEMATOLOGY METHOD 08/18/2025 10:37 AM EDT [facility] nRBC 0.3(H) <=0.0 per 100 WBCs LAB HEMATOLOGY METHOD 08/18/2025 10:37 AM EDT [facility] Differential Type Automated LAB HEMATOLOGY METHOD 08/18/2025 10:37 AM EDT [facility] Neutrophils % 89 % LAB HEMATOLOGY METHOD 08/18/2025 10:37 AM EDT [facility] Lymphocytes % 7 % LAB HEMATOLOGY METHOD 08/18/2025 10:37 AM EDT [facility] Monocytes % 2 % LAB HEMATOLOGY METHOD 08/18/2025 10:37 AM EDT [facility] Eosinophils % 0 % LAB HEMATOLOGY METHOD 08/18/2025 10:37 AM EDT [facility] Basophils % 0 % LAB HEMATOLOGY METHOD 08/18/2025 10:37 AM EDT [facility] Immature Granulocytes % 2 % LAB HEMATOLOGY METHOD 08/18/2025 10:37 AM EDT [facility] Neutrophils Absolute 6.85(H) 1.60 - 6.10 10*3/uL LAB HEMATOLOGY METHOD 08/18/2025 10:37 AM EDT [facility] Lymphocytes Absolute 0.54(L) 1.20 - 3.90 10*3/uL LAB HEMATOLOGY METHOD 08/18/2025 10:37 AM EDT [facility] Monocytes Absolute 0.14(L) 0.30 - 0.90 10*3/uL LAB HEMATOLOGY METHOD 08/18/2025 10:37 AM EDT [facility] Eosinophils Absolute 0.00 0.00 - 0.50 10*3/uL LAB HEMATOLOGY METHOD 08/18/2025 10:37 AM EDT [facility] Basophils Absolute 0.02 0.00 - 0.10 10*3/uL LAB HEMATOLOGY METHOD 08/18/2025 10:37 AM EDT [facility] Immature Granulocytes Absolute 0.16(H) 0.00 - 0.06 10*3/uL LAB HEMATOLOGY METHOD 08/18/2025 10:37 AM EDT [facility] Blood Blood sample taken from central line / Unknown (Central Line) Existing Catheter / Unknown 08/18/2025 9:55 AM EDT 08/18/2025 10:35 AM EDT [facility] - 08/18/2025 10:37 AM EDT Therapeutic decision making should be based on absolute values, rather than percentages. Que Gentile MD LAB BLOOD ORDERABLES Final R esult [facility] [address] [place] [address] * (ABNORMAL) TSH Reflex FT4 (08/03/2025 8:02 AM EDT) Thyroid Stimulating Hormone, Plasma 0.34(L) 0.40 - 4.20 uIU/mL 08/03/2025 8:51 AM EDT [facility] Blood Blood sample taken from central line / Unknown (Port) Long-term Catheter / Unknown 08/03/2025 8:02 AM EDT 08/03/2025 8:13 AM EDT Que Gentile MD LAB BLOOD ORDERABLES Final R esult [facility] [address] [place] [address] * (ABNORMAL) Comprehensive metabolic panel (08/03/2025 8:02 AM EDT) Glucose, Plasma 143(H) 74 - 99 mg/dL 08/03/2025 8:51 AM EDT [facility] BUN, Plasma 22 8 - 23 mg/dL 08/03/2025 8:51 AM EDT [facility] Creatinine, Plasma 1.23(H) 0.70 - 1.20 mg/dL 08/03/2025 8:51 AM EDT [facility] BUN/Creatinine Ratio 18 08/03/2025 8:51 AM EDT [facility] Sodium, Plasma 139 136 - 145 mmol/L 08/03/2025 8:51 AM EDT [facility] Potassium, Plasma 4.0 3.6 - 4.9 mmol/L 08/03/2025 8:51 AM EDT [facility] Chloride, Plasma 106 97 - 107 mmol/L 08/03/2025 8:51 AM EDT [facility] CO2, Plasma 21(L) 22 - 29 mmol/L 08/03/2025 8:51 AM EDT [facility] Anion Gap 12 6 - 16 mmol/L 08/03/2025 8:51 AM EDT [facility] Total Calcium, Plasma 9.5 8.9 - 10.2 mg/dL 08/03/2025 8:51 AM EDT [facility] Total Protein 7.1 6.3 - 7.9 g/dL 08/03/2025 8:51 AM EDT [facility] Albumin, Plasma 3.9 3.5 - 5.2 g/dL 08/03/2025 8:51 AM EDT [facility] AST, Plasma 20 10 - 50 U/L 08/03/2025 8:51 AM EDT [facility] ALT, Plasma 26 10 - 50 U/L 08/03/2025 8:51 AM EDT [facility] Alkaline Phosphatase, Plasma 63 40 - 115 U/L 08/03/2025 8:51 AM EDT [facility] Total Bilirubin, Plasma 0.4 0.2 - 1.1 mg/dL 08/03/2025 8:51 AM EDT [facility] eGFRcr 63.2 mL/min/1.7 3m*2 08/03/2025 8:51 AM EDT [facility] Comment:Reported eGFRcr in m L/min/1.73m2 is based the CKD-EPI 2020 equation that does not use a race coefficient. Blood Blood sample taken from central line / Unknown (Port) Long-term Catheter / Unknown 08/03/2025 8:02 AM EDT 08/03/2025 8:13 AM EDT us Que Gentile MD LAB BLOOD ORDERABLES Final R esult [facility] [address] [place] [address] * (ABNORMAL) CBC and differential (08/03/2025 8:02 AM EDT) WBC Count 12.63(H) 3.70 - 10.30 10*3/uL LAB HEMATOLOGY METHOD 08/03/2025 8:29 AM EDT [facility] RBC Count 4.24(L) 4.60 - 6.10 10*6/uL LAB HEMATOLOGY METHOD 08/03/2025 8:29 AM EDT [facility] HGB 13.0(L) 13.7 - 17.5 g/dL LAB HEMATOLOGY METHOD 08/03/2025 8:29 AM EDT [facility] HCT 38.7(L) 40.0 - 51.0 % LAB HEMATOLOGY METHOD 08/03/2025 8:29 AM EDT [facility] Platelet Count 326 155 - 369 10*3/uL LAB HEMATOLOGY METHOD 08/03/2025 8:29 AM EDT [facility] MCV 91 79 - 98 fL LAB HEMATOLOGY METHOD 08/03/2025 8:29 AM EDT [facility] MCH 30.7 26.0 - 32.0 pg LAB HEMATOLOGY METHOD 08/03/2025 8:29 AM EDT [facility] MCHC 33.6 30.7 - 35.5 g/dL LAB HEMATOLOGY METHOD 08/03/2025 8:29 AM EDT [facility] RDW 11.9 11.5 - 14.5 % LAB HEMATOLOGY METHOD 08/03/2025 8:29 AM EDT [facility] MPV 10.6 8.8 - 12.5 fL LAB HEMATOLOGY METHOD 08/03/2025 8:29 AM EDT [facility] nRBC 0.0 <=0.0 per 100 WBCs LAB HEMATOLOGY METHOD 08/03/2025 8:29 AM EDT [facility] Differential Type Automated LAB HEMATOLOGY METHOD 08/03/2025 8:29 AM EDT [facility] Neutrophils % 92 % LAB HEMATOLOGY METHOD 08/03/2025 8:29 AM EDT [facility] Lymphocytes % 6 % LAB HEMATOLOGY METHOD 08/03/2025 8:29 AM EDT [facility] Monocytes % 2 % LAB HEMATOLOGY METHOD 08/03/2025 8:29 AM EDT [facility] Eosinophils % 0 % LAB HEMATOLOGY METHOD 08/03/2025 8:29 AM EDT [facility] Basophils % 0 % LAB HEMATOLOGY METHOD 08/03/2025 8:29 AM EDT [facility] Immature Granulocytes % 0 % LAB HEMATOLOGY METHOD 08/03/2025 8:29 AM EDT [facility] Neutrophils Absolute 11.57(H) 1.60 - 6.10 10*3/uL LAB HEMATOLOGY METHOD 08/03/2025 8:29 AM EDT [facility] Lymphocytes Absolute 0.71(L) 1.20 - 3.90 10*3/uL LAB HEMATOLOGY METHOD 08/03/2025 8:29 AM EDT [facility] Monocytes Absolute 0.30 0.30 - 0.90 10*3/uL LAB HEMATOLOGY METHOD 08/03/2025 8:29 AM EDT [facility] Eosinophils Absolute 0.00 0.00 - 0.50 10*3/uL LAB HEMATOLOGY METHOD 08/03/2025 8:29 AM EDT [facility] Basophils Absolute 0.01 0.00 - 0.10 10*3/uL LAB HEMATOLOGY METHOD 08/03/2025 8:29 AM EDT [facility] Immature Granulocytes Absolute 0.04 0.00 - 0.06 10*3/uL LAB HEMATOLOGY METHOD 08/03/2025 8:29 AM EDT [facility] Blood Blood sample taken from central line / Unknown (Port) Long-term Catheter / Unknown 08/03/2025 8:02 AM EDT 08/03/2025 8:17 AM EDT Narrative [facility] - 08/03/2025 8:29 AM EDT Therapeutic decision making should be based on absolute values, rather than percentages. us Que Gentile MD LAB BLOOD ORDERABLES Final R esult Performing Organization Address City/[facility]/ZIP Co de Phone Number [facility] [address] [place] [address] * APTT (07/21/2025 10:45 AM EDT) aPTT 29 25 - 35 sec LAB COAGULATION METHOD 07/21/2025 11:28 AM EDT [facility] Blood Venous blood specimen / Unknown Venipuncture / Unknown 07/21/2025 10:45 AM EDT 07/21/2025 11:10 AM EDT us Rachel Jonas APRN LAB BLOOD ORDERABLES Final R esult Performing Organization Address City/[facility] Co de Phone Number [facility] [address] [place] [address] * Prothrombin Time/INR (07/21/2025 10:45 AM EDT) Prothrombin Time 14.2 12.0 - 14.3 sec LAB COAGULATION METHOD 07/21/2025 11:28 AM EDT [facility] INR 1.1 0.9 - 1.1 LAB COAGULATION METHOD 07/21/2025 11:28 AM EDT [facility] Blood Venous blood specimen / Unknown Venipuncture / Unknown 07/21/2025 10:45 AM EDT 07/21/2025 11:10 AM EDT Narrative [facility] - 07/21/2025 11:28 AM EDT OPTIMAL INR RANGES FOR PATIENT ON ORAL ANTICOAGULANT THERAPY Prevention of venous thromboembolism INR 2.0 to 3.0 In patients with heart disease: Atrial fibrillation INR 2.0 to 3.0 Valvular heart disease INR 2.0 to 3.0 Tissue heart valves INR 2.0 to 3.0 Mechanical prosthetic valves INR 2.5 to 3.5 Prevention of recurrent NV INR 2.5 to 3.5 Rachel Jonas FIELD ASSISTANT LAB BLOOD ORDERABLES Final R esult [facility] [address] [place] [address] * (ABNORMAL) CBC and Differential (07/21/2025 10:45 AM EDT) [facility] Signature WBC Count 6.53 3.70 - 10.30 10*3/uL LAB HEMATOLOGY METHOD 07/21/2025 11:23 AM EDT [facility] RBC Count 4.40(L) 4.60 - 6.10 10*6/uL LAB HEMATOLOGY METHOD 07/21/2025 11:23 AM EDT [facility] HGB 13.4(L) 13.7 - 17.5 g/dL LAB HEMATOLOGY METHOD 07/21/2025 11:23 AM EDT [facility] HCT 40.9 40.0 - 51.0 % LAB HEMATOLOGY METHOD 07/21/2025 11:23 AM EDT [facility] Platelet Count 336 155 - 369 10*3/uL LAB HEMATOLOGY METHOD 07/21/2025 11:23 AM EDT [facility] MCV 93 79 - 98 fL LAB HEMATOLOGY METHOD 07/21/2025 11:23 AM EDT [facility] MCH 30.5 26.0 - 32.0 pg LAB HEMATOLOGY METHOD 07/21/2025 11:23 AM EDT [facility] MCHC 32.8 30.7 - 35.5 g/dL LAB HEMATOLOGY METHOD 07/21/2025 11:23 AM EDT [facility] RDW 11.9 11.5 - 14.5 % LAB HEMATOLOGY METHOD 07/21/2025 11:23 AM EDT [facility] MPV 10.4 8.8 - 12.5 fL LAB HEMATOLOGY METHOD 07/21/2025 11:23 AM EDT [facility] nRBC 0.0 <=0.0 per 100 WBCs LAB HEMATOLOGY METHOD 07/21/2025 11:23 AM EDT [facility] Differential Type Automated LAB HEMATOLOGY METHOD 07/21/2025 11:23 AM EDT [facility] Neutrophils % 65 % LAB HEMATOLOGY METHOD 07/21/2025 11:23 AM EDT [facility] Lymphocytes % 21 % LAB HEMATOLOGY METHOD 07/21/2025 11:23 AM EDT [facility] Monocytes % 11 % LAB HEMATOLOGY METHOD 07/21/2025 11:23 AM EDT [facility] Eosinophils % 2 % LAB HEMATOLOGY METHOD 07/21/2025 11:23 AM EDT [facility] Basophils % 0 % LAB HEMATOLOGY METHOD 07/21/2025 11:23 AM EDT [facility] Immature Granulocytes % 1 % LAB HEMATOLOGY METHOD 07/21/2025 11:23 AM EDT [facility] Neutrophils Absolute 4.25 1.60 - 6.10 10*3/uL LAB HEMATOLOGY METHOD 07/21/2025 11:23 AM EDT [facility] Lymphocytes Absolute 1.36 1.20 - 3.90 10*3/uL LAB HEMATOLOGY METHOD 07/21/2025 11:23 AM EDT [facility] Monocytes Absolute 0.73 0.30 - 0.90 10*3/uL LAB HEMATOLOGY METHOD 07/21/2025 11:23 AM EDT [facility] Eosinophils Absolute 0.14 0.00 - 0.50 10*3/uL LAB HEMATOLOGY METHOD 07/21/2025 11:23 AM EDT [facility] Basophils Absolute 0.02 0.00 - 0.10 10*3/uL LAB HEMATOLOGY METHOD 07/21/2025 11:23 AM EDT [facility] Immature Granulocytes Absolute 0.03 0.00 - 0.06 10*3/uL LAB HEMATOLOGY METHOD 07/21/2025 11:23 AM EDT [facility] Blood Venous blood specimen / Unknown Venipuncture / Unknown 07/21/2025 10:45 AM EDT 07/21/2025 11:12 AM EDT [facility] - 07/21/2025 11:23 AM EDT Therapeutic decision making should be based on absolute values, rather than percentages. us Rachel Jonas FIELD ASSISTANT LAB BLOOD ORDERABLES Final R esult [facility] [address] [place] [address] * (ABNORMAL) Comprehensive Metabolic Panel, Plasma (07/21/2025 10:45 AM EDT) Glucose, Plasma 75 74 - 99 mg/dL 07/21/2025 11:40 AM EDT [facility] BUN, Plasma 23 8 - 23 mg/dL 07/21/2025 11:40 AM EDT [facility] Creatinine, Plasma 1.32(H) 0.70 - 1.20 mg/dL 07/21/2025 11:40 AM EDT [facility] BUN/Creatinine Ratio 17 07/21/2025 11:40 AM EDT [facility] Sodium, Plasma 139 136 - 145 mmol/L 07/21/2025 11:40 AM EDT [facility] Potassium, Plasma 4.9 3.6 - 4.9 mmol/L 07/21/2025 11:40 AM EDT [facility] Chloride, Plasma 104 97 - 107 mmol/L 07/21/2025 11:40 AM EDT [facility] CO2, Plasma 23 22 - 29 mmol/L 07/21/2025 11:40 AM EDT [facility] Anion Gap 12 6 - 16 mmol/L 07/21/2025 11:40 AM EDT [facility] Total Calcium, Plasma 9.5 8.9 - 10.2 mg/dL 07/21/2025 11:40 AM EDT [facility] Total Protein 7.2 6.3 - 7.9 g/dL 07/21/2025 11:40 AM EDT [facility] Albumin, Plasma 4.0 3.5 - 5.2 g/dL 07/21/2025 11:40 AM EDT [facility] AST, Plasma 28 10 - 50 U/L 07/21/2025 11:40 AM EDT [facility] ALT, Plasma 23 10 - 50 U/L 07/21/2025 11:40 AM EDT [facility] Alkaline Phosphatase, Plasma 62 40 - 115 U/L 07/21/2025 11:40 AM EDT [facility] Total Bilirubin, Plasma 0.5 0.2 - 1.1 mg/dL 07/21/2025 11:40 AM EDT [facility] eGFRcr 58.0 mL/min/1.7 3m*2 07/21/2025 11:40 AM EDT [facility] Comment:Reported eGFRcr in m L/min/1.73m2 is based the CKD-EPI 2020 equation that does not use a race coefficient. Blood Venous blood specimen / Unknown Venipuncture / Unknown 07/21/2025 10:45 AM EDT 07/21/2025 11:10 AM EDT Rachel Jonas APRN LAB BLOOD ORDERABLES Final R esult Performing Organization Address City/[facility]/ZIP Co de Phone Number [facility] [address] [place] [address] * Magnesium (07/21/2025 10:45 AM EDT) Magnesium, Plasma 2.3 1.9 - 2.4 mg/dL 07/21/2025 11:40 AM EDT [facility] Blood Venous blood specimen / Unknown Venipuncture / Unknown 07/21/2025 10:45 AM EDT 07/21/2025 11:10 AM EDT Que Gentile MD LAB BLOOD ORDERABLES Final R esult Performing Organization Address City/[facility]/ZIP Co de Phone Number [facility] [address] [place] [address] documented in this encounter Visit Diagnoses Diagnosis Adenocarcinoma of gastroesophageal junction- Primary documented in this encounter Additional Health Concerns Assessment Noted Time A fall risk assessment has been complete d for the patient 07/21/2025 9:37 AM EDT A Body Mass Index follow-up plan has been documented for the patient 07/07/2025 10:51 PM EDT documented as of this encounter Care Teams Hearing Healthcare Practitioner Relationship Specialty Start Date End Date Darius Ken MD [address] [place] [id number] PCP - General Internal Medicine 08/23/24 documented as of this encounter
--- OUTSIDE RECORDS SUMMARY | 2025-07-21 10:30 | XMS_ITS | Encounter Summary ---
Author Organization Healthcare Address [address] [place] [address] Care Team Providers Care Log Stacker Operator Name Role Phone Darius Ken MD Primary Care Provider [phone] Encounter Details Date Type Department Care Team (Latest Contact Info) Description 07/21/2025 10:30 AM EDT Office Visit [facility] Multidisciplinary Oncology Clinic [address] [place] [address] Rachel Jonas, JEWELRY MOLD MAKER [address] [place] [address] Gastric adenocarcinoma (CMS/HCC) (Primary Dx) Social History Tobacco Use Types Packs/Day Years Used Date Smoking Tobacco: Never Smokeless Tobacco: Never Alcohol Use Standard Drinks/Week Comments Never 0 [...] on file documented as of this encounter Miscellaneous Notes * Progress Notes - Rachel Jonas APRN - 07/21/2025 10:30 AM EDT Surgical Oncology Outpatient Consultation Requesting Service: Aristides Fleming Verbal consent was obtained to use ambient listening technology to assist in the documentation of the encounter: no Chief complaint: Justin Best is a 69 y.o. port-a-cath placement consultation History of Present Illness The patient is a 69-year-old male with newly diagnosed GE junction adenocarcinoma, presenting here for consultation to discuss Port-A-Cath placement. He has seen his medical oncologist today, Dr. Fleming, and discussed chemotherapy treatments. He was advised by Dr. Fleming to proceed with [id number] for easier chemotherapy delivery. Initially, he developed symptoms of dysphagia in the beginning of 06/2025. During his upper endoscopy, it was noted that he had a fungating and friable mass in the distal esophagus between 30 and 46 cm with diffuse moderate nonerosive gastropathy and gastritis and multiple fundic gland polyps. The biopsy from the procedure showed invasive moderate to poorly differentiated adenocarcinoma involving the gastroesophageal junction. Results were negative for H. pylori. There was no staging imaging done at this time. The patient has other medical history of hyperlipidemia and blood pressure, but overall is healthy and active. He never had a heart attack or stroke. He is not on any blood thinners. Treatment History: 06/17/25- EGD: notable for a circumferential fungating friable mass in the distal esophagus between 38 and 46 cm with diffuse moderate nonerosive gastropathy/gastritis [...] promoter methylation study pending). Past Medical History: Past Medical History Pertinent Negatives[1] Past Surgical History: Surgical History[2] Social History: Tobacco: Tobacco Use: Low Risk (07/06/2025) Patient History Smoking Tobacco Use: Never Smokeless Tobacco Use: Never Passive Exposure: Not on file Alcohol: Alcohol Use: Not on file Illicit drug use: Social History Substance and Sexual Activity Drug Use Never Allergies: Allergies[3] Family Medical History: family history includes Cancer in his father. Home Medications: Prior to Admission medications Medication Sig Start Date End Date Taking? Authorizing Provider alfuzosin (Uroxatral) 10 MG 24 hr tablet Take 1 tablet (10 mg) by mouth 1 (one) time each day. 06/23/24 Provider, Historical bisoprolol (Zebeta) 5 MG tablet Take 1 tablet (5 mg) by mouth 1 (one) time each day. Patient stateshalf a tablet daily. 06/23/24 Provider, Historical Famotidine (PEPCID PO) 06/25/25 Provider, Historical Multiple Vitamin (multivitamin) capsule Take 1 capsule by mouth 1 (one) time each day. Provider, Historical rosuvastatin (Crestor) 10 MG tablet Take 1 tablet (10 mg) by mouth 1 (one) time each day. 06/23/24 Provider, Historical Review of Systems: 14 point ROS was conducted and is otherwise negative unless noted in HPI. Physical exam: GENERAL: WD, WN, NAD. EYES: No scleral icterus or conjunctivitis HENT: Atraumatic, normocephalic, nares patent NECK: Supple RESP/CHEST: Symmetric expansion; non labored. Extremities: No cyanosis or clubbing. GI: nondistended. SKIN: No rash NEURO: AAOx4. Motor intact and no focal deficits PSYCH: Mood and affect congruent and appropriate to situation. Objective: All laboratory, images, tracings, and vital sign data are personally reviewed unless otherwise noted. VITALS BP Temp Pulse Resp SpO2 LABS: CBC WBC 6.53 Hb 13.4 (L) Plt 336 Hct 40.9 ANC 4.25 INR 1.1, PTT 29, Anti-Xa ?? BMP Na 139 Cl 104 BUN 23 Glu 75 K 4.9 Co2 23 Cr 1.32 (H) Ca 9.5 Mg 2.3, LFT AST 28 AlkPhos 62 T Prot 7.2 ALK 23 Bili 0.5 Alb ?? Radiographics/Diagnostics: No results found for this or any previous visit. Pathology: Final Diagnosis (no units) Date/Time Value 07/07/2025 1015 GASTROESOPHAGEAL JUNCTION, BIOPSY ([id number] C; ): - 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 STOMACH, BIOPSY ([id number]; ): - NO PATHOLOGIC ABNORMALITIES. - NO H. PYLORI ORGANISMS IDENTIFIED ON H&E SLIDE. STOMACH, POLYP, BIOPSY ([id number] B; ): - FUNDIC GLAND POLYP. Comment (no units) Date/Time Value 07/07/2025 1015 Per pathology report) - Immunohistochemical stain for Her-2/miladys: negative (score of 0) - PD-L1 (22C3) Combined Positive Score: <1 - CLDN A18 (43-14A) IHC interpretation: positive (percentage of viable tumor cells with moderate tostrong membranous positivity: 50%) -Immunohistochemical stains for MMR proteins: loss of nuclear immunoreaction for MLH-1 and PMS-2 (pending MLH1 promoter methylation study) Assessment & Plan Port-a-cath placement for chemotherapy delivery r/t Gastroesophageal junction adenocarcinoma. Newly diagnosed with gastroesophageal junction adenocarcinoma. An upper endoscopy revealed a fungating and friable mass in the distal esophagus with biopsy results showing invasive moderate to poorlydifferentiated adenocarcinoma. Advised to undergo Port-A-Cath placement for easier chemotherapy delivery. The procedure for Port-A-Cath placement was explained in detail, including the associated risks such as bleeding, pain, infection, anesthesia risks, pneumothorax, and potential need for additional procedures. After understanding these risks, consented to the procedure. Surgery is scheduled for 07/29/2025. Preoperative instructions were provided, including fasting from midnight before the surgery and arranging for a lifter/driver due to the use of general anesthesia. All questions were addressed,and understanding and agreement to proceed were expressed. 2. Hyperlipidemia. History of hyperlipidemia. No specific management changes discussed during this visit. 3. Hypertension. History of hypertension. No specific management changes discussed during this visit. PROCEDURE Upper endoscopy was performed revealing a fungating and friable mass in the distal esophagus between 30 and 46 cm with diffuse moderate nonerosive gastropathy and gastritis and multiple fundic gland polyps. 45 minutes was spent on this encounter; including preparing to see the patient, which involved review/interpretation of diagnostics and reports; obtaining and/or reviewing separately obtained history; performing appropriate physical exam; ordering/scheduling medications, tests or procedures; communicating findings and counseling/educating the patient, family and/or caregiver; documentation in EMR; and care coordination. Rachle Jonas, RITU 07/21/25 4:06 PM [1] Past Medical History: Diagnosis Date Blood urine 2023 Esophageal cancer (CMS/HCC) june 2025 Hypertension 1999 Kidney stone Skin cancer 2004 Stomach cancer (CMS/HCC) june 2025 [2] Past Surgical History: Procedure Laterality Date APPENDECTOMY 2020 BACK SURGERY 2001 CHOLECYSTECTOMY 1984 COLONOSCOPY 2023 GALLBLADDER SURGERY 1998 [3] Allergies Allergen Reactions Penicillins Unknown - Patient states they do not know rxn details Childhood allergy, thinks it was maybe a rash, but isn't sure documented in this encounter Plan of Treatment Upcoming Encounters Date Type Department Care Team (Latest Contact Info) Description 09/01/2025 9:15 AM EDT Clinical Support [facility] Multidisciplinary Oncology Clinic [address] [place] [address] 09/01/2025 9:30 AM EDT Office Visit [facility] Multidisciplinary Oncology Clinic [address] [place] [address] Aristides Reina MD [address] [place] [address] 09/01/2025 11:00 AM EDT Appointment [facility] [address] [place] [address] 09/03/2025 10:30 AM EDT Appointment [facility] [address] [place] [address] 09/15/2025 9:30 AM EST Appointment [facility] Infusion [facility] 2 [address] [place] [address] 09/17/2025 9:00 AM EST Appointment [facility] [address] [place] [address] 09/21/2025 8:45 AM EST Office Visit [facility] [place] [address], [address] [place] [address] Juarez Recinos MD [address] [place] [address] 09/28/2025 8:00 AM EST Appointment [facility] [address] [place] [address] 09/28/2025 9:00 AM EST Appointment [facility] PET Scan [address] [place] [address] 09/28/2025 10:15 AM EST Office Visit [facility] [address] [facility]nd [place] [address] Kim Machado MD [address] [place] [address] 01/13/2026 12:00 PM EST [facility] [address] [place] [address] Eros Mejia MD [address] [place] [address] documented as of this encounter Visit Diagnoses Diagnosis Gastric adenocarcinoma (CMS/HCC)- Primary Malignant neoplasm of stomach, unspecified site documented in this encounter Additional Health Concerns Assessment Noted Time A fall risk assessment has been complete d for the patient 07/21/2025 9:37 AM EDT A Body Mass Index follow-up plan has been documented for the patient 07/07/2025 10:51 PM EDT documented as of this encounter Care Teams Log Stacker Operator Relationship Specialty Start Date End Date Darius Ken MD [address] [place] [address] PCP - General Internal Medicine 08/23/24 documented as of this encounter
--- OUTSIDE RECORDS SUMMARY | 2025-07-25 15:30 | XMS_ITS | Encounter Summary ---
Author Organization Healthcare Address [address] [place] [address] Care Team Providers Care Kettle Chipper Name Role Phone Darius Ken MD Primary Care Provider [phone] Encounter Details Date Type Department Care Team (Late st Contact Info) Description 07/25/2025 3:30 PM EDT Pre-Admission Testing [facility] Pre-op Clinic [address], [address]st [place] [address] Anesthesia Record Procedure Summary Procedure Name Responsible Anesthesiologist Anesthesia Start Time Anesthesia Stop Time INSERTION, TUNNELED CENTRAL VENOUS DEVICE, WITH PORT Jose Roberto Colmenares MD 07/29/25 1308 07/29/25 1427 Events Date Time Event Comment 07/29/2025 1308 An Start The patient was reevaluated immediately before sedation and remains eligible for anesthesia plan. 1311 In Room 1311 ANPATVER 1311 An Start Data 1314 An Induction The patient was reevaluated immediately before moderate or deep sedation use and before anesthesia induction. 1316 An Intubation 1318 Anesthesia Ready 1342 Proc Start 1413 Proc Fin 1417 An Extubation 1420 an stop data 1421 Out of Room 1426 Handoff to Receiving I compl eted my handoff to the receiving clinician during which we: 1. Identified the patient 2. Identified the responsible provider 3. Reviewed the pertinent medical history 4. Discussed the surgical course 5. Reviewed intra-op anesthesia management and issues during anesthesia 6. Set expectations for post-procedure period 7. Allowed opportunity for questions and acknowledgement of understanding. 1427 An Stop Meds * Agents No agents on file. * Blood No blood administrations on file. Lines, Drains, and Airways Type Details Placement Removal Wound 07/29/25; 1342; N; Y es; Surgical; Open Surg; Chest; Right, Upper 07/29/25 1342 by Amarilis Crawford RN Single Lumen Implantable Port 07/29/25; 1402; No; Yes; Yes; Right; Chest; Dr. Ugarte 07/29/25 1402 by Amarilis Crawford RN Peripheral IV Placement Date: 07/29/25; Placement Time: 1200; Catheter Size: 20 G; Orientation: Anterior, Left; Location: Forearm; Site Prep: Alcohol, Chlorhexidine ; Local Anesth: [place]; Technique: Anatomical landmarks; Inserted by: jeronimo cedeno; Insertion Attempts: 1; Patient Tolerance: Tolerated well; Removal Date: 07/29/25; Removal Time: 1534 07/29/25 1200 by Berenice Cedeno RN 07/29/25 1534 by Carina Leone RN ETT Placement Date: 07/29/25; Placement Time: 1316 (created via procedure documentation); Mask Ventilation: 2; Technique: Direct laryngoscopy; Type: ETT - single; Single Lumen Tube Size: 7 mm; Cuffed: Yes; Laryngoscope: Maribell; Blade Size: 3; Location: Oral; Grade View: Grade I; Insertion Attempts: 1; Placement Verification: Auscultation, Capnometry; Airway Comments: Atraumatic. No change to dentition. ; Placed by: Resident ; Removal Date: 07/29/25; Removal Time: 1417 07/29/25 1316 by Abby Small MD 07/29/25 1417 by Abby Small MD documented in this encounter Social History Tobacco Use Types Packs/Day Years [...] as of this encounter Miscellaneous Notes * PAT Evaluation Note - Jesus Oviedo, - 07/25/2025 3:30 PM EDT HPI Justin Best is a 69 y.o. male PMHx GEJ adenocarcinoma, HTN, HLD, BPH, CKD3a who presents with Pre-op Diagnosis * Gastric adenocarcinoma (CMS/HCC) [C16.9] now scheduled for INSERTION, TUNNELED CENTRAL VENOUS DEVICE, WITH PORT (N/A). Past Medical History[1] Family History[2] Social History[3] SURGICAL HISTORY: Surgical History[4] Allergies[5] MEDICATIONS: Current Medications[6] ROS Anesthesia: Date of last anesthetic: Several years ago per patient history of previous anesthesia. Does not have a history of anesthetic complications, difficult intubation, malignant hyperthermia, obstructive sleep apnea, pseudocholinesterase deficiency and PONV. Cardiovascular: hyperlipidemia. Does not have angina, cardiomyopathy, carotid artery disease, CHF or dyspnea. hypertension: is well controlled. Exercise tolerance is 3 flights of stairs. Does not have chest pain. Respiratory: Patient has no dyspnea.no asthma: no COPD: Has not had an upper respiratory infection in last 30 days. Has not had pneumonia in the last 30 days. HEENT: Does not have difficulty swallowing, chipped teeth, loose teeth or missing teeth. Neurological: Does not have headaches. no seizures: Did not have a cerebrovascular accident.Does not have TIA. Musculoskeletal: Does not have arthritis. Does not have cervical spine limited mobility. Autoimmune: Does not have rheumatoid arthritis. Gastrointestinal: Does not have GERD.GI malignancy (GEJ adenocarcinoma). Does not have cirrhosis. GI/ additional comments: Recently diagnosed cancer, plan to undergo neoadjuvant chemotherapy Genitourinary: chronic renal disease (CKD3a, GFR 55, Cr baseline 1.2-1.3): BPH, renal calculi (Hx 10 stones in lifetime) and renal disease. Does not have recurrent UTIs. Hematological/Lymphatic: Does not have anemia. History of no DVT. History of no pulmonary embolism. no history of chemotherapy no history of radiation Endocrine/Metabolic: does not have diabetes mellitus. Does not have thyroid disorder. Lab Results Component Value Date WBC 6.53 07/21/2025 HGB 13.4 (L) 07/21/2025 HCT 40.9 07/21/2025 MCV 93 07/21/2025 PLT 336 07/21/2025 Lab Results Component Value Date GLUCOSE 75 07/21/2025 BUN 23 07/21/2025 CREATININE 1.32 (H) 07/21/2025 BCR 17 07/21/2025 NA 139 07/21/2025 K 4.9 07/21/2025 CL 104 07/21/2025 CO2 23 07/21/2025 ALBUMIN 4.0 07/21/2025 ALKPHOS 62 07/21/2025 BILITOT 0.5 07/21/2025 No results found for: HGBA1C Lab Results Component Value Date INR 1.1 07/21/2025 Visit Vitals Smoking Status Never Physical Exam Anesthesia Plan ASA 2 Plan was reviewed with: attending Anesthesia technique(s) discussed with the patient/family: general Comment: Discussed with Dr. Lin Oviedo DO [1] Past Medical History: Diagnosis Date Blood urine 2023 Esophageal cancer ([facility]/HCC) june 2025 Hypertension 1999 Kidney stone Skin cancer 2004 Stomach cancer ([facility]) june 2025 [2] Family History Problem Relation Name Age of Onset Cancer Father [3] Social History Tobacco Use Smoking status: Never Smokeless tobacco: Never Substance Use Topics Alcohol use: Never Drug use: Never [4] Past Surgical History: Procedure Laterality Date APPENDECTOMY 2020 BACK SURGERY 2001 CHOLECYSTECTOMY 1984 COLONOSCOPY 2023 GALLBLADDER SURGERY 1998 [5] Allergies Allergen Reactions Penicillins Unknown - Patient states they do not know rxn details Childhood allergy, thinks it was maybe a rash, but isn't sure [6] Current Outpatient Medications: alfuzosin, Take 1 tablet by mouth daily. bisoprolol, Take 1 tablet by mouth daily. Patient states half a tablet daily. Famotidine (PEPCID PO), multivitamin, Take 1 capsule by mouth daily. rosuvastatin, Take 1 tablet by mouth daily. Cosigned by Mario Ceballos MD at 07/25/2025 1:40 PM EDT Associated attestation - Mario Ceballos MD - 07/25/2025 1:40 PM EDT I discussed the patient with the resident and agree with the findings and plan. * Preprocedure Instructions - Jesus Oviedo DO - 07/25/2025 3:30 PM EDT Home Medication Instructions Current Medications Medication Instructions alfuzosin (Uroxatral) 10 MG 24 hr tablet Take morning of surgery bisoprolol (Zebeta) 5 MG tablet Take morning of surgery Famotidine (PEPCID PO) Take morning of surgery Multiple Vitamin (multivitamin) capsule Hold day of surgery rosuvastatin (Crestor) 10 MG tablet Take morning of surgery General Preoperative Instructions You will be called the business day before surgery with your arrival time No food, no thickened liquids after midnight the night before the surgery. You may drink CLEAR LIQUIDS-meaning water, Gatorade/Pedialyte, or apple juice, until 2 hours prior to arrival time surgery day. Avoid the reds and purples on the Gatorade/Pedialyte, if applicable for surgery type No alcohol or smoking prior to surgery Arrive on time to avoid delays Parking/Registration procedure explained You MUST have a responsible adult available for transport to and from hospital Visitation policy for the day of surgery reviewed Bring insurance card, photo ID, along with power of assistant prosecuting attorney, guardianship or advanced directives if applicable Do not bring money, jewelry or other valuables Hibiclens bathing instructions reviewed if applicable Notify surgeon of fever, illness, any changes or if you decide not to have surgery Diabetes Instructions (If applicable) Take diabetes medication as instructed You may have up to 4 ounces of apple juice 2 hours prior to arrival for surgery for low glucose documented in this encounter Plan of Treatment Upcoming Encounters Date Type Department Care Team (Latest Contact Info) Description 09/01/2025 9:15 AM EDT Clinical Support [facility] Multidisciplinary Oncology Clinic [address] [place] [address] 09/01/2025 9:30 AM EDT Office Visit [facility] Oncology Clinic [address] [place] [address] Aristides Reina MD [address] [place] [address] 09/01/2025 11:00 AM EDT Appointment [facility] [address] [place] [address] 09/03/2025 10:30 AM EDT Appointment [facility] [address] [place] [address] 09/15/2025 9:30 AM EST Appointment [facility] [address] [place] [address] 09/17/2025 9:00 AM EST Appointment [facility] [address] [place] [address] 09/21/2025 8:45 AM EST Office Visit [facility] [place] [address] [facility], [address] [place] [address] Juarez Recinos MD [address] [place] [address] 09/28/2025 8:00 AM EST Appointment [facility] [address] [place] [address] 09/28/2025 9:00 AM EST Appointment [facility] PET Scan [address] [place] [address] 09/28/2025 10:15 AM EST Office Visit [facility] [address] [facility], 2nd [place] [address] Kim Machado MD [address] [facility] [address] [place] [address] 01/13/2026 12:00 PM EST Office Visit [facility] [address] [place] [address] Eros Mejia MD [address] [place] [address] documented as of this encounter Visit Diagnoses Not on filedocumented in this encounter Additional Health Concerns Assessment Noted Time A fall risk assessment has been complete d for the patient 07/21/2025 9:37 AM EDT A Body Mass Index follow-up plan has been documented for the patient 07/07/2025 10:51 PM EDT documented as of this encounter Care Teams Kettle Chipper Relationship Specialty Start Date End Date Darius Ken MD [address] [place] [address] PCP - General Internal Medicine 08/23/24 documented as of this encounter
--- OUTSIDE RECORDS SUMMARY | 2025-07-27 09:58 | XMS_ITS | Encounter Summary ---
Author Organization Healthcare Address [address] 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 Procedures PET/CT FDG Skull Base To Mid Thigh Kim Machado MD [address] [address] Phone: tel: fax: Referral ID Status Reason Start Date Expiration Date Visits Re quested Visits Authorized [id number] Closed 07/06/2025 01/05/2027 2 2 Reason for Visit * Imaging (Routine) - Closed Specialty Diagnoses / Procedures Referred By Broderick olivares Referred To Contact Radiology Diagnoses 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 06/23/2024 Multiple Vitamin (multivitamin) capsule Take 1 capsule by mouth daily. rosuvastatin (Crestor) 10 MG tablet Take 1 tablet by mouth daily. 06/23/2024 acetaminophen (Tylenol) 500 MG tablet Take 1 tablet by mouth every 6 hours for 14 days. 56 tablet 07/29/2025 08/18/2025 bisoprolol (Zebeta) 5 MG tablet Take 1 tablet by mouth daily. Patient states half a tablet daily. 06/23/2024 08/05/2025 Famotidine (PEPCID PO) Take 20 mg by mouth daily. 06/25/2025 08/15/2025 documented as of this encounter Plan of Treatment Upcoming Encounters Date Type Department Care Team (Latest Contact Info) Description 09/01/2025 9:15 AM EDT Clinical Support [facility] [address] [place] [address] 09/01/2025 9:30 AM EDT Office Visit [facility] Multidisciplinary Oncology Clinic [address] [place] [address] Aristides Reina MD [address] [place] [address] 09/01/2025 11:00 AM EDT Appointment [facility] 2 [address] [place] [address] 09/03/2025 10:30 AM EDT Appointment [facility] 2 [address] [place] [address] 09/15/2025 9:30 AM EST Appointment [facility] 2 [address] [place] [address] 09/17/2025 9:00 AM EST Appointment [facility] 2 [address] [place] [address] 09/21/2025 8:45 AM EST Office Visit [facility] [place] [address] [facility], [address] [place] [phone] Juarez Recinos MD [address] [place] [address] 09/28/2025 8:00 AM EST Appointment [facility] PET Scan [address] [place] [address] 09/28/2025 9:00 AM EST Appointment [facility] PET Scan [address] [place] [address] 09/28/2025 10:15 AM EST Office Visit [facility] [address] [facility], 2nd [place] [address] Kim Machado MD [address] [place] [address] 01/13/2026 12:00 PM EST Office Visit [facility] [address] [address] Eros Mejia MD [address] [place] [address] documented as of this encounter [...] raised. PET/CT scanner: Nicol 550. PET/CT acquisition: Vblevq-mn-jhf-thighs. Standardized uptake value (SUV): Corrected for body weight only. CT: Low-dose, dut-yiuhak-gojl, without intravenous contrast. TOTAL DLP (Dose Length [...] lytic or sclerotic lesions within the imaged irwmc-nu-jqdc. Multilevel degenerative changes. Procedure Note Quoc Pratt [...] raised. PET/CT scanner: Nicol 550. PET/CT acquisition: Mxgujg-cx-ywh-thighs. Standardized uptake value (SUV): Corrected for body weight only. CT: Low-dose, npc-tkvgko-yzqq, without intravenous contrast. TOTAL DLP (Dose Length [...] max 3.5 without definite large lymph nodes ([id number] image 450) No suspicious metabolically active pulmonary [...] difficult to evaluate because of under distention. ([id number] image 390). SUV max 29.7. Prostate gland [...] osseous lytic orsclerotic lesions within the imaged bdymc-md-czcr. Multilevel degenerative changes. IMPRESSION: *Intense radiotracer activity [...] documented as of this encounter Care Teams Fixed Income Manager Relationship Specialty Start Date End Date Darius Ken MD [address] [place] [address] PCP - General Internal Medicine 08/23/24 documented as of this encounter
--- OUTSIDE RECORDS SUMMARY | 2025-07-27 09:59 | XMS_ITS | Encounter Summary ---
Author Organization Healthcare Address 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 Procedures PET/CT FDG Skull Base To Mid Thigh Kim Machado MD [address] [facility] [address] [place] [address] Phone: tel: fax: Referral ID Status Reason Start Date Expiration Date Visits Re quested Visits Authorized [id number] Closed 07/06/2025 01/05/2027 2 2 Encounter Details Date Type Department Care Team (Latest Contact Info) Description 07/27/2025 9:59 AM EDT - 07/27/2025 11:59 PM EDT Hospital Encounter [facility] PET Scan [address] [place] [address] Discharge Disposition: Home or Self Care Social [...] Description 09/01/2025 9:15 AM EDT Clinical Support [facility] Multidisciplinary Oncology Clinic [address] [place] [address] 09/01/2025 9:30 AM EDT Office Visit [facility] Multidisciplinary Oncology Clinic [address] [place] [address] Aristides Reina MD [address] [place] [address] 09/01/2025 11:00 AM EDT Appointment [facility] Infusion Clinic [address] [place] [address] 09/03/2025 10:30 AM EDT Appointment [facility] Infusion Clinic [address] [place] [address] 09/15/2025 9:30 AM EST Appointment [facility] Infusion Clinic [address] [place] [address] 09/17/2025 9:00 AM EST Appointment [facility] Infusion Clinic [address] [place] [address] 09/21/2025 8:45 AM EST Office Visit [facility] [place] [address] [facility], [address] [place] [phone] Juarez Recinos MD [address] [place], [place] [address] 09/28/2025 8:00 AM EST Appointment [facility] PET Scan [address] [place] [address] 09/28/2025 9:00 AM EST Appointment [facility] PET Scan [address] [place] [address] 09/28/2025 10:15 AM EST Office Visit [facility] [address] [facility], 2nd [place] [address] Kim Machado MD [address] [place] [address] 01/13/2026 12:00 PM EST Office Visit [facility] [address] [place] [address] Eros Mejia MD [address] [place] [address] documented as of this encounter [...] raised. PET/CT scanner: Nicol 550. PET/CT acquisition: Uzeszj-kz-gjt-thighs. Standardized uptake value (SUV): Corrected for body weight only. CT: Low-dose, jrt-fmwurw-xefd, without intravenous contrast. TOTAL DLP (Dose Length [...] lytic or sclerotic lesions within the imaged tiaao-yb-laxg. Multilevel degenerative changes. Procedure Note Quoc Pratt [...] Not applicable. Positioning: Arms raised. PET/CT scanner: [facility] 550. PET/CT acquisition: Gerwjz-so-ogu-thighs. Standardized uptake value (SUV): Corrected for body weight only. CT: Low-dose, eee-dxjequ-zvgv, without intravenous contrast. TOTAL DLP (Dose Length [...] max 3.5 without definite large lymph nodes ([id number] image 450) No suspicious metabolically active pulmonary [...] difficult to evaluate because of under distention. ([id number] image 390). SUV max 29.7. Prostate gland [...] osseous lytic orsclerotic lesions within the imaged kodoe-kg-troe. Multilevel degenerative changes. IMPRESSION: *Intense radiotracer activity [...] documented as of this encounter Care Teams Varsity Baseball Coach Relationship Specialty Start Date End Date Darius Ken MD [address] [place] [address] PCP - General Internal Medicine 08/23/24 documented as of this encounter
--- OUTSIDE RECORDS SUMMARY | 2025-07-27 13:00 | XMS_ITS | Encounter Summary ---
Author Organization [facility] Address [address] 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 Procedures Echo, Adult Transthoracic Complete Kim Machado MD [address] [address] Phone: tel: fax: Referral ID Status Reason Start Date Expiration Date V isits Requested Visits Authorized [id number] Closed Perform Procedure 07/27/2025 01/26/2027 1 1 Reason for Visit * Reason Comments Follow-up Encounter Details Date Type Department Care Team ([facility] st Contact Info) Description 07/27/2025 1:00 PM EDT Office Visit [facility] [address] [place] [address] Kim Machado MD [address] [phone] 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 [facility] Department of Surgery Section of Thoracic [...] PMH HLD, HTN, BPH, recurrent nephrolithiasis, CKD hispk8z, recent biopsy-proven distal esophageal adenocarcinoma who presents [...] He is agr eeable. Kim Marcano MD lead software development engineer Thoracic Surgery documented in this encounter Plan of Treatment Upcoming Encounters Date Type Department Care Team (Latest Contact Info) Description 09/01/2025 9:15 AM EDT Clinical Support [facility] Multidisciplinary Oncology Clinic [address] [place] [address] 09/01/2025 9:30 AM EDT Office Visit [facility] Multidisciplinary Oncology Clinic [address] [place] [address] Aristides Reina MD [address] [place] [address] 09/01/2025 11:00 AM EDT Appointment [facility] Infusion Clinic [address] [place] [address] 09/03/2025 10:30 AM EDT Appointment [facility] Infusion Clinic [address] [place] [address] 09/15/2025 9:30 AM EST Appointment [facility] Infusion Clinic [address] [place] [address] 09/17/2025 9:00 AM EST Appointment [facility] [address] [place] [address] 09/21/2025 8:45 AM EST Office Visit [facility] [place] [facility] [address] [facility] [place] [address] Juarez Recinos MD [address] [place] [address] 09/28/2025 8:00 AM EST Appointment [facility] PET Scan [address] [place] [address] 09/28/2025 9:00 AM EST Appointment [facility] PET Scan [address] [place] [address] 09/28/2025 10:15 AM EST Office Visit [facility] [address] [facility]nd [place] [address] Kim Machado MD [address] [facility] [address] [place] [address] 01/13/2026 12:00 PM EST Office Visit [facility] [address] [place] [address] Eros Mejia MD [address] [place] [address] documented as of this encounter Results * (ABNORMAL) Pulmonary function testing (08/02/2025 12:00 PM EDT) [facility] Signature PIO8TRM 4.57 3.31 - 5.64 L VYAIRE PFT FVC PRED 4.47 VYAIRE PFT FVC LLN 3.31 VYAIRE PFT FVCPREZSCORE 0.14 VYAIRE PFT FVCPRE%PRED 102 % % VYAIRE PFT FVC PREDAUTH US_Quanjer GLI (2012) VYAIRE PFT FVC Z-SCORE 0.14 VYAIRE PFT FEV1 PRE 3.45 2.42 - 4.24 L VYAIRE PFT FEV1 PRED 3.36 VYAIRE PFT FEV1 LLN 2.42 VYAIRE PFT XHR2EAHVHWTTZ 0.18 VYAIRE PFT FEV1_Pre%Pred 103 % % VYAIRE PFT FEV1 PR[facility]AUTSt[facility] (2011) VYAIRE PFT FEV1 Z-SCORE 0.18 VYAIRE PFT FEV1/FVC PRE 75.65 62.09 - 87.50 % VYAIRE PFT NKB3XXCOZLU 76 VYAIRE PFT NFX7UQDEJP 62 VYAIRE PFT LTJ7JQTVKWBWHZYQ 0.01 VYAIRE PFT LIL8HZUIJZ%PRED 100 % % VYAIRE PFT RLC7DMWMQHXX [facility] (2011) VYAIRE PFT LMV7XUIHZABEG 0 VYAIRE PFT HCL29-90% PRE 2.65 1.08 - 4.52 L/s VYAIRE PFT OXQ06-65%_Pred 2.50 VYAIRE PFT CPO9747%LLN 1.08 VYAIRE PFT MTF1294%PREZSCORE 0.14 VYAIRE PFT KWB3803%PRE%PRED 106 % % VYAIRE PFT OUH3317%PREDAUTStarr [facility] (2011) VYAIRE PFT PEF PRE 13.66(A) 6.32 - 11.18 L/s VYAIRE PFT PEF PRED 8.75 VYAIRE PFT PEF LLN 6.32 VYAIRE PFT PEFPREZSCORE 3.33 VYAIRE PFT PEFPRE%PRED 156 % % VYAIRE PFT PEF PREDAUT NHANES III (1998) VYAIRE PFT JUUXEPBUSFOYJICE0QTJ 16.30(A) 19.85 - 35.57 ml/(min* mmHg) VYAIRE PFT DLCOSINGLEBREATH PRED 27.02 VYAIRE PFT DLCOSINGLEBREATH LLN 19.85 VYAIRE PFT DLCOSINGLEBREATH Z-SCORE -2.60 VYAIRE PFT DLCOSINGLEBREATH % PRED 60.3 % VYAIRE PFT DLCOSINGLEBREATH PREDAUTH Stanojevic TLCO GLI (2019) VYAIRE PFT DLCOSINGLEBREATH Z-SCORE -2.60 08/02/2025 12:05 PM EDT VYAIRE PFT JNWRILTCZVJTMSNOV7KQ E 16.90(A) 19.85 - 35.57 ml/(min* mmHg) VYAIRE PFT DLCOCSINGLEBREATH PRED 27.02 VYAIRE PFT DLCOCSINGLEBREATH LLN 19.85 VYAIRE PFT DLCOCSINGLEBREATH Z-SCORE -2.43 VYAIRE PFT DLCOCSINGLEBREATH % PRED 62.5 % VYAIRE PFT DLCOCSINGLEBREATH PREDGALLUP [facility]DI[facility] Stanojevic TLCO GLI (2019) VYAIRE PFT FSVSLE9SAH 2.90(A) 2.96 - 5.12 ml/(min* mmHg*L) VYAIRE PFT DLCOVAPRED 3.99 VYAIRE PFT DLCOVALLN 2.96 VYAIRE PFT DLCOVAZSCORE -1.75 VYAIRE PFT DLCOVA%PRED 72.6 % VYAIRE PFT DLCOVAPREDAUT Stanojevic TLCO GLI (2019) VYAIRE PFT DLCOVAZSCORE -1.75 08/02/2025 12:05 PM EDT VYAIRE PFT ZOAVBXWHX8TVH 3.00 2.96 - 5.12 ml/(min* mmHg*L) VYAIRE PFT DLCOC SB/VA PRED 3.99 VYAIRE PFT DLCOC SB/VA LLN 2.96 VYAIRE PFT DLCOC SB/VA Z-SCORE -1.57 VYAIRE PFT DLCOC SB/VA % PRED 75.2 % VYAIRE PFT DLCOC SB/VA PREDGALLUP [facility]DI[facility] Stanojevic TLCO GLI (2019) VYAIRE PFT DLCOC SB/VA Z-SCORE -1.57 08/02 12:05 PM EDT VYAIRE PFT PUSICVRFVEAWSF3KRY 5.63 5.48 - 8.24 L VYAIRE PFT VASINGLEBREATH PRED 6.80 VYAIRE PFT VASINGLEBREATH LLN 5.48 VYAIRE PFT VASINGLEBREATH Z-SCORE -1.46 VYAIRE PFT VASINGLEBREATH % PRED 82.7 % VYAIRE PFT VASINGLEBREATH PREDAUT Stanojevic TLCO GLI (2019) VYAIRE PFT VASINGLEBREATH Z-SCORE -1.46 08/02/2025 12:05 PM EDT VYAIRE PFT MTVSVBGUABPPTXY0LYP 4.44 3.31 - 5.64 L VYAIRE PFT IVCSINGLEBREATH PRED 4.47 VYAIRE PFT IVCSINGLEBREATH LLN 3.31 VYAIRE PFT IVCSINGLEBREATH Z-SCORE -0.04 VYAIRE PFT IVCSINGLEBREATH % PRED 99.4 % VYAIRE PFT IVCSINGLEBREATH PREDGALLUP INDI[facility] MED[facility] US_Quanjer GLI (2011) VYAIRE PFT AZALEA% VCMAX PRE 96.17 % VYAIRE PFT TLC SB PRE 5.83(A) 5.97 - 9.15 L VYAIRE PFT TLCSINGLEBREATH PRED 7.55 VYAIRE PFT TLCSINGLEBREATH LLN 5.97 VYAIRE PFT TLCSINGLEBREATH Z-SCORE -1.79 VYAIRE PFT TLCSINGLEBREATH % PRED 77.2 % VYAIRE PFT TLCSINGLEBREATH PREDBournewood Hospital Lung volumes GLI (2019)__ VYAIRE PFT HB PRE 13.40 g(Hb)/dL VYAIRE PFT KVV5ORX 6.59 5.97 - 9.15 L VYAIRE PFT TLCPRED 7.55 VYAIRE PFT TLCLLN 5.97 VYAIRE PFT TLCULN 9.15 VYAIRE PFT TLCZSCORE -1.00 VYAIRE PFT TLC%PRED 87.3 % VYAIRE PFT TLCPREDAUTLakehealth [facility] Lung volumes GLI (2019)__ VYAIRE PFT VC0PRE 4.62 3.31 - 5.64 L VYAIRE PFT VCPRED 4.47 VYAIRE PFT VCLLN 3.31 VYAIRE PFT VCULN 5.64 VYAIRE PFT VCZSCORE 0.21 VYAIRE PFT VC%PRED 103.3 % VYAIRE PFT VCPREDAUT US_[facility]jer GLI (2011) VYAIRE PFT IC0PRE 3.64 2.40 - 4.44 L VYAIRE PFT ICPRED 3.44 VYAIRE PFT ICLLN 2.40 VYAIRE PFT ICULN 4.44 VYAIRE PFT IC Z-SCORE 0.32 VYAIRE PFT IC%PRED 105.7 % VYAIRE PFT ICPREDBournewood Hospital Lung volumes GLI (2019)__ VYAIRE PFT VAIAANEE2EZG 2.95 2.88 - 5.71 L VYAIRE PFT FRCPLETH PRED 4.13 VYAIRE PFT FRCPLETH LLN 2.88 VYAIRE PFT FRCPLETH ULN 5.71 VYAIRE PFT FRCPLETH Z-SCORE -1.53 VYAIRE PFT FRCPLETH % PRED 71.4 % VYAIRE PFT FRCPMINIDOKA [facility] PREDBournewood Hospital Lung volumes GLI (2019)__ VYAIRE PFT GDZ7SBL 0.98 0.43 - 2.72 L VYAIRE PFT ERVPRED 1.35 VYAIRE PFT ERVLLN 0.43 VYAIRE PFT ERVULN 2.72 VYAIRE PFT ERV Z-SCORE -0.58 VYAIRE PFT ERV%PRED 72.1 % V[facility]AIRE PFT ERVPCullman [facility] Medical Center Lung volumes GLI (2019)__ VYAIRE PFT RV0PRE 1.98 1.60 - 4.02 L VYAIRE PFT RVPRED 2.70 VYAIRE PFT RVLLN 1.60 VYAIRE PFT RVULN 4.02 VYAIRE PFT RVZSCORE -1.04 VYAIRE PFT RV%PRED 73.2 % VYAIRE PFT RVPREDAUTLakehealth [facility] Lung volumes GLI (2019)__ VYAIRE PFT RV%TIL4NDR 29.97 24.30 - 47.37 % VYAIRE PFT RV%TLCPRED 36 VYAIRE PFT RV%TLCLLN 24 VYAIRE PFT RV%TLCULN 47 VYAIRE PFT RV%TLCZSCORE -0.81 VYAIRE PFT RV%TLC%PRED 84.2 % VYAIRE PFT RV%TLCPREDAUTH [facility] Lung volumes GLI (2019)__ VYAIRE PFT Anatomical Region Laterality Modality PFT 08/02/2025 10:3 4 AM EDT Narrative 08/03/2025 1:05 PM EDT Pulmonary Function Testing Report Justin Best 69 y.o. underwent pulmonary function testing today at the [facility]. The patient underwent spirometry, lung volumes by [...] is no recent study available for direct wnmg-ki-grbr comparison. Left Ventricle Based on the linear [...] is no recent study available for direct ypjn-bw-vwjb comparison. us Kim Machado MD CV ECHO [...] documented as of this encounter Care Teams Animal Rides Manager Relationship Specialty Start Date End Date Darius Ken MD [address] [place] [address] PCP - General Internal Medicine 08/23/24 documented as of this encounter
--- OUTSIDE RECORDS SUMMARY | 2025-07-29 09:39 | XMS_ITS | Encounter Summary ---
Author Organization Healthcare Address [address] 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] Procedures WI INSERT TUNNELED CV CATH WITH PORT CHG FLUOROGUIDE CNTRL SARAHI ACCESS,PLACE,REPLACE,REMOVE INSERTION, TUNNELED CENTRAL VENOUS DEVICE, WITH PORT Ghulam Ugarte MD [address] [address] Phone: tel: fax: [facility] [address] [place] [address] Phone: tel: Referral ID Status Reason Start Date Expiration Date Visits Re quested Visits Authorized [id number] 1 1 Encounter Details Date Type Department Care Team (Latest Contact Info) Description 07/29/2025 9:39 AM EDT - 07/29/2025 3:30 PM EDT Hospital Encounter [facility] [address] [place] [address] Ghulam Ugarte MD [address] [address] Adenocarcinoma of gastroesophageal junction (CMS/HCC) [...] 06/25/2025 08/15/2025 documented as of this encounter Miscellaneous Notes [...] (CMS/HCC) Procedure(s): 1. Right Internal Jugular Vein 8-Peruvian Single Lumen PORT placement with US and Fluoroscopic Guidance Attending Surgeon(s): * Ghulam Ugarte - Primary Litigation Support Analyst(s): * Darlin Lane MD - Resident - Assisting Anesthesia: General ASA: III Blood Administration: Blood Product Administration History None Estimated Blood Loss: None Drains: * None in log * Implants Type Name Action Serial No. Catheter PORT CLEARVUE POWER 8FR - [id number] - [id number] Implanted [id number] Findings: Right Internal Jugular Vein accessed with [...] to create a pocket to accommodate an 8-Peruvian single lumen port. Port was secured to [...] 07/29/2025 1:42 PM EDT Date: 07/29/25 Location: [place] [facility] Name: Justin Best, : 1955, Diagnoses: Pre-op Diagnosis Gastric adenocarcinoma (CMS/HCC) Post-op Diagnosis Gastric adenocarcinoma (CMS/HCC) Procedure(s): Insertion of Tunneled Central Venous Device with Port, Right Internal Jugular Attending Surgeon(s): * Ghulam Ugarte - Primary Litigation Support Analyst(s): * Darlin Lane MD - Resident - Assisting Anesthesia: General ASA: ASA status not filed in the log. Blood Administration: Blood Product Administration History None Estimated Blood Loss: None Drains: * None in log * Implants Type Name Action Serial No. Catheter PORT CARMENVUE POWER 8FR - [id number] - [id number] Implanted [id number] Specimen: None Findings: Right Internal Jugular Vein [...] findings and plan as documented. * [facility] - Darlin Lane MD - 07/29/2025 10:10 [...] advised by Dr. Fleming to proceed with Cogm-O-Avbgpnwvyplml for easier chemotherapy delivery. Initially, he developed [...] Date/Time Value 07/07/2025 1015 GASTROESOPHAGEAL JUNCTION, BIOPSY ([id number] C; ): - 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 STOMACH, BIOPSY ([id number] A; ): - NO PATHOLOGIC ABNORMALITIES. - NO H. PYLORI ORGANISMS IDENTIFIED ON H&E SLIDE. STOMACH, POLYP, BIOPSY ([id number] B; ): - FUNDIC GLAND POLYP. Comment [...] before the surgery and arranging for a yard truck driver due to the use of general [...] documentation in EMR; and care coordination. Rachel JonasRITU 07/21/25 4:06 PM Contains text generated by STEVEPina Lane MD PGY-1 Pager: [phone] Epic chat preferred for non-emergent communication. Cosigned [...] Clinical Support [facility] [address] [place] [address] 09/01/2025 9:30 AM EDT Office Visit [facility] [address] [place] [address] Aristides Reina MD [address] [place] [address] 09/01/2025 11:00 AM EDT Appointment [facility] 2 [address] [place] [address] 09/03/2025 10:30 AM EDT Appointment [facility] 2 [address] [place] [address] 09/15/2025 9:30 AM EST Appointment [facility] 2 [address] [place] [address] 09/17/2025 9:00 AM EST Appointment [facility] 2 [address] [place] [address] 09/21/2025 8:45 AM EST Office Visit [facility] [place] [address] [facility], [address] [place] [address] Juarez Recinos MD [address] [place], [place] [phone] 09/28/2025 8:00 AM EST Appointment [facility] PET Scan [address] [place] [address] 09/28/2025 9:00 AM EST Appointment [facility] PET Scan [address] [place] [address] 09/28/2025 10:15 AM EST Office Visit [facility] [address] [facility], 2nd [place] [address] Kim Machado MD [address] [facility] [address] [place] [address] 01/13/2026 12:00 PM EST Office Visit [facility] [address] [address] Eros Mejia MD [address] [place] [address] documented as of this encounter Procedures Procedure Name Priority Date/Time Associated Diagnosis Comments XR CHEST 1 VIEW STAT 07/29/2025 3:20 PM EDT FL LESS THAN 1 HOUR (NON-REPORTABLE) Routine 07/29/2025 2:15 PM EDT WI INSERT TUNNELED CV CATH WITH PORT 07/29/2025 [...] on 07/29/2025 3:24 PM Ghulam Ugarte MD IMLinda XR PROCEDURES Final Re sult * FL [...] at 191, Routine, Recovery (Phase I only), respiratory depression [...] of 10 bupivacaine-EPINEPHrine PF (Marcaine w/EPI) 0.25% -1:448856 injection (CANCELED) As needed, Starting on Fri07/29/25 [...] at 191, Routine, Recovery (Phase I only), respiratory depression [...] 1915, Routine, Holding - Preprocedure, line care Linked [...] documented as of this encounter Care Teams Pan Tank Worker Relationship Specialty Start Date End Date Darius Ken MD [address] [place] [address] PCP - General Internal Medicine 08/23/24 documented as of this encounter
--- OUTSIDE RECORDS SUMMARY | 2025-07-29 10:06 | XMS_ITS | Encounter Summary ---
Author Organization Healthcare Address [address] 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 Procedures Echo, Adult Transthoracic Complete Kim Machado MD [address] [facility] [address] [place] [address] Phone: tel: fax: Referral ID Status Reason Start Date Expiration Date V isits Requested Visits Authorized [id number] Closed Perform Procedure 07/27/2025 01/26/2027 1 1 Reason for Visit * Reason Comments Echo * Auth/Cert (Routine) Specialty Diagnoses / Procedures Referred By Broderick olivares Referred To Contact Diagnoses 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] Procedures CA INSERT TUNNELED CV CATH WITH PORT CHG FLUOROGUIDE CNTRL SARAHI ACCESS,PLACE,REPLACE,REMOVE INSERTION, TUNNELED CENTRAL VENOUS DEVICE, WITH PORT Ghulam Ugarte MD [address] [address] Phone: tel: fax: [facility] [address] [place] [address] Phone: tel: Referral ID Status Reason Start Date Expiration Date Visits Re quested Visits Authorized [id number] 1 1 Encounter Details Date Type Department Care Team (Latest Contact Info) Description 07/29/2025 10:06 AM EDT - 07/29/2025 11:59 PM EDT Hospital Encounter [facility] [address] [place] [address] 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 [...] Description 09/01/2025 9:15 AM EDT Clinical Support [facility] Multidisciplinary Oncology Clinic [address] [place] [address] 09/01/2025 9:30 AM EDT Office Visit [facility] Multidisciplinary Oncology Clinic [address] [place] [address] Aristides Reina MD [address] [place] [address] 09/01/2025 11:00 AM EDT Appointment [facility] Infusion Clinic [address] [place] [address] 09/03/2025 10:30 AM EDT Appointment [facility] Infusion Clinic [address] [place] [address] 09/15/2025 9:30 AM EST Appointment [facility] Infusion Clinic [address] [place] [address] 09/17/2025 9:00 AM EST Appointment [facility] Infusion Clinic [address] [place] [address] 09/21/2025 8:45 AM EST Office Visit [facility] [place] [address] [facility], [address] [place] [address] Juarez Recinos MD [address] [place] [address] 09/28/2025 8:00 AM EST Appointment [facility] PET Scan [address] [place] [address] 09/28/2025 9:00 AM EST Appointment [facility] PET Scan [address] [place] [address] 09/28/2025 10:15 AM EST Office Visit [facility] [address] [facility], 2nd [place] [address] Kim Machado MD [address] [facility] [address] [place] [address] 01/13/2026 12:00 PM EST Office Visit [facility] [address] [place] [address] Eros Mejia MD [address] [place] [address] documented as of this encounter [...] is no recent study available for direct bept-um-wmhh comparison. Left Ventricle Based on the linear [...] is no recent study available for direct ncuq-tb-kjfj comparison. us Kim Machado MD CV ECHO [...] documented as of this encounter Care Teams Electronic Warfare Linguist Relationship Specialty Start Date End Date Darius Ken MD [address] [place] [address] PCP - General Internal Medicine 08/23/24 documented as of this encounter
--- OUTSIDE RECORDS SUMMARY | 2025-07-29 12:25 | XMS_ITS | Encounter Summary ---
Author Organization Healthcare Address [address] 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] Procedures CO INSERT TUNNELED CV CATH WITH PORT CHG FLUOROGUIDE CNTRL SARAHI ACCESS,PLACE,REPLACE,REMOVE INSERTION, TUNNELED CENTRAL VENOUS DEVICE, WITH PORT Ghulam Ugarte MD [address] [address] Phone: tel: fax: [facility] [address] [place] [address] Phone: tel: Referral ID Status Reason Start Date Expiration Date Visits Re quested Visits Authorized [id number] 1 1 Encounter Details Date Type Department Care Team (Late st Contact Info) Description 07/29/2025 12:25 PM EDT - 07/29/2025 2:20 PM EDT Surgery [facility] [address] [place] [phone] Ghulam Ugarte MD [address] [address] INSERTION, TUNNELED CENTRAL VENOUS DEVICE, WITH PORT [46950 (CPT )] Surgery Details Date/Time Status Location OR Service Patient Class Case Class Case Type Trauma Case? 07/29/2025 12:25 PM Posted [facility] E-Electi ve Panel 1 Procedure LRB Anes Op Region Wound Class Comments INSERTION, TUNNELED CENTRAL VENOUS DEVICE, WITH PORT N/A General Surgeon Surgeon Role Service Panel Ghulam Ugarte MD Primary Surgical Oncology [address] MD Resident - Assisting 1 Special Needs [...] Risk Indicated 07/29/2025 12:05 PM EDT Berenice Ferrera RN * Question Answer Date of Assessment Author 1. Wish to be (Past 1 Month) No 025 12:05 PM EDT Berenice Ferrera RN 2. Non-Specific Active Suici pearl Thoughts (Past 1 Month) No 07/29/2025 12:05 PM EDT Berenice Ferrera RN 6. Suicidal Behavior (Lifetime) No 12:05 PM [...] PM EDT Operative Note Date: 07/29/25 Location: [place] [facility] Name: Justin Best, : 1955, Diagnoses: Pre-op Diagnosis Gastric adenocarcinoma (CMS/HCC) Post-op Diagnosis Gastric adenocarcinoma (CMS/HCC) Procedure(s): 1. Right Internal Jugular Vein 8-Afghan Single Lumen PORT placement with US and Fluoroscopic Guidance Attending Surgeon(s): * Ghulam Ugarte - Primary Manager Enterprise Content Management(s): * Darlin Lane MD - Resident - Assisting Anesthesia: General ASA: III Blood Administration: Blood Product Administration History None Estimated Blood Loss: None Drains: * None in log * Implants Type Name Action Serial No. Catheter PORT CLEARVUE POWER 8FR - [id number] - [id number] Implanted [id number] Findings: Right Internal Jugular Vein accessed with [...] to create a pocket to accommodate an 8-Afghan single lumen port. Port was secured to the pocket using 2-0 Prolene traction suture. The plastic tubing was then threaded in a retrograde fashion through the upper neck and brought out adjacent to the guidewire. This required elongation of the skin incision by 3 mm using an 11 blade knife. The dilator and sheath were then threaded over the guidewire without difficulty. The dilator and guidewire were carefully removed, the peel-away sheath was left in place, the plastic tubing was cut to position at the atriocaval junction, and then thread through the peel-away sheath, positioned in place. Peel-away sheath was carefull y removed and fluoroscopy verified the excellent position of the final position of the catheter. Catheter aspirated easily, flushed easily and was secured in position. The soft tissue was inspected and found to be hemostatic and then closed in layers using 3-0 Vicryl, 4-0 Monocryl and Dermabond. The port was primed with 3 mL of heparin. [...] 07/29/2025 1:42 PM EDT Date: 07/29/25 Location: [place] [facility] Name: Justin Best, : 1955, Diagnoses: Pre-op Diagnosis Gastric adenocarcinoma (CMS/HCC) Post-op Diagnosis Gastric adenocarcinoma (CMS/HCC) Procedure(s): Insertion of Tunneled Central Venous Device with Port, Right Internal Jugular Attending Surgeon(s): * Ghulam Ugarte - Primary Manager Enterprise Content Management(s): * Darlin Lane MD - Resident - Assisting Anesthesia: General ASA: ASA status not filed in the log. Blood Administration: Blood Product Administration History None Estimated Blood Loss: None Drains: * None in log * Implants Type Name Action Serial No. Catheter PORT CLEARVUE POWER 8FR - [id number] - [id number] Implanted [id number] Specimen: None Findings: Right Internal Jugular Vein [...] findings and plan as documented. * Astrid Nolasco - Darlin Lane MD - 07/29/2025 10:10 [...] advised by Dr. Fleming to proceed with Morl-W-Fczsostkdwfia for easier chemotherapy delivery. Initially, he developed [...] Date/Time Value 07/07/2025 1015 GASTROESOPHAGEAL JUNCTION, BIOPSY ([id number]; ): - 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 STOMACH, BIOPSY ([id number]; ): - NO PATHOLOGIC ABNORMALITIES. - NO H. PYLORI ORGANISMS IDENTIFIED ON H&E SLIDE. STOMACH, POLYP, BIOPSY ([id number]; ): - FUNDIC GLAND POLYP. Comment [...] before the surgery and arranging for a driver's license examiner due to the use of general anesthesia. [...] 07/21/25 4:06 PM Contains text generated by Acquisio Iman Lane MD PGY-1 Pager: [phone] Epic chat preferred for non-emergent communication. Cosigned [...] Description 09/01/2025 9:15 AM EDT Clinical Support [facility] Multidisciplinary Oncology Clinic [address] [place] [phone] 09/01/2025 9:30 AM EDT Office Visit [facility] Multidisciplinary Oncology Clinic [address] [place] [phone] Aristides Reina MD [address] [place] [address] 09/01/2025 11:00 AM EDT Appointment [facility] Infusion Clinic [address] [place] [phone] 09/03/2025 10:30 AM EDT Appointment [facility] Infusion Clinic [address] [place] [phone] 09/15/2025 9:30 AM EST Appointment [facility] Infusion Clinic [address] [place] [phone] 09/17/2025 9:00 AM EST Appointment [facility] Infusion Clinic [address] [place] [phone] 09/21/2025 8:45 AM EST Office Visit [facility] [place] [facility] [address] [facility], [address] [place] [phone] Juarez Recinos MD [address] [place] [address] 09/28/2025 8:00 AM EST Appointment [facility] PET Scan [address] [place] [phone] 09/28/2025 9:00 AM EST Appointment [facility] PET Scan [address] [place] [phone] 09/28/2025 10:15 AM EST Office Visit [facility] 800 [facility], 2nd [place] [phone] Kim Machado MD [address] [place] [address] 01/13/2026 12:00 PM EST Office Visit [facility] [address] [place] [address] Eros Mejia MD [address] [place] [address] documented as of this encounter Procedures Procedure Name Priority Date/Time Associated Diagnosis Comments XR CHEST 1 VIEW STAT 07/29/2025 3:20 PM EDT FL LESS THAN 1 HOUR (NON-REPORTABLE) Routine 07/29/2025 2:15 PM EDT CO INSERT TUNNELED CV CATH WITH PORT 07/29/2025 [...] of 10 bupivacaine-EPINEPHrine PF (Marcaine w/EPI) 0.25% -1:[id number] injection As needed, Starting on Fri07/29/25 at [...] of 10 bupivacaine-EPINEPHrine PF (Marcaine w/EPI) 0.25% -1:174366 injection (CANCELED) As needed, Starting on Fri07/29/25 [...] documented as of this encounter Care Teams Weapons Designer Relationship Specialty Start Date End Date Darius Ken MD [address] [place] [address] PCP - General Internal Medicine 08/23/24 documented as of this encounter
--- OUTSIDE RECORDS SUMMARY | 2025-07-29 13:08 | XMS_ITS | Encounter Summary ---
Author Organization Healthcare Address [address] 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] Procedures NM INSERT TUNNELED CV CATH WITH PORT CHG FLUOROGUIDE CNTRL SARAHI ACCESS,PLACE,REPLACE,REMOVE INSERTION, TUNNELED CENTRAL VENOUS DEVICE, WITH PORT Ghulam Ugarte MD [address] [address] Phone: tel: fax: [facility] OPERATING ROOM 800 [place] [address] Phone: tel: Referral ID Status Reason Start Date Expiration Date Visits Re quested Visits Authorized [id number] 1 1 Encounter Details Date Type Department Care Team (Late st Contact Info) Description 07/29/2025 1:08 PM EDT Anesthesia Event [facility] RO[facility] [address] [place] [address] Jose Roberto Colmenares MD [facility] [address] [place] [address] Abby Small MD [address] [place] [address] Anesthesia Record Procedure Summary Procedure Name Responsible [...] Site Prep: Alcohol, Chlorhexidine ; Local Anesth: [place]; Technique: Anatomical landmarks; Inserted by: jeronimo cedeno; [...] PM EDT Anesthesiologist: Jose Roberto Colmenares MD Senior Oracle Applications Developer: Abby Small MD Patient: Justin Best HPI Justin Best is a 69 y.o. male with body mass index is 26.65 kg/m??. who presents with Gastric adenocarcinoma (CMS/HCC), now for INSERTION, TUNNELED CENTRAL VENOUS DEVICE, WITH PORT (N/A) Procedure Information Anesthesia Start Date/Time: 07/29/25 1308 Procedure: INSERTION, TUNNELED CENTRAL VENOUS DEVICE, WITH PORT Location: 2OR / ЮЛИЯ OR Surgeons: Ghulam Ugarte MD [...] ABG No results found for: PHART , GDM1QIJ , PO2ART , SO2ART , BEART , TXW5MDQ , HCTART , SODIUMART , POTASSIUMART , POCTCL , POCGLU , IONCALART , LACTATE No results found for: PH , PCO2 , PO2 , Q1UHFNMJ , BASEEXC , HCTSYR , KSYR , [...] is no recent study available for direct dcmm-ik-ttoi comparison. PFTs No results found for: OHT3VSS , DKR6WEWW , TBW4RED , FVCPRED BP Readings from Last 5 [...] Blood urine 2023 Esophageal cancer ([facility]/HCC) june 2025 Hypertension 1999 Kidney stone Skin cancer 2004 Stomach cancer ([facility]/HCC) june 2025 [3] ceFAZolin, 2 g, Intravenous, Once enoxaparin, 40 mg, Subcutaneous, Daily [4] PRN medications: bupivacaine-EPINEPHrine PF, heparin flush (porcine), Insert peripheral IV AND Saline lock IV AND sodium chloride AND sodium chloride [5] Past Surgical History: Procedure Laterality Date APPENDECTOMY 2020 BACK SURGERY 2001 CHOLECYSTECTOMY 1985 COLONOSCOPY 2023 GALLBLADDER SURGERY 1998 [6] Social [...] portions of the procedure(s) and immediately available [facility] services the entire duration. See resident note for details. documented in this encounter Plan of Treatment Upcoming Encounters Date Type Department Care Team (Latest Contact Info) Description 09/01/2025 9:15 AM EDT Clinical Support [facility] Multidisciplinary Oncology Clinic [address] [place] [phone] 09/01/2025 9:30 AM EDT Office Visit [facility] Oncology [facility] [address] [place] [address] Aristides Reina MD 800 [place] [address] 09/01/2025 11:00 AM EDT Appointment [facility] 2 [address] [place] [address] 09/03/2025 10:30 AM EDT Appointment [facility] 2 [address] [place] [address] 09/15/2025 9:30 AM EST Appointment [facility] 2 [address] [place] [address] 09/17/2025 9:00 AM EST Appointment [facility] 2 4 [place] [address] 09/21/2025 8:45 AM EST Office Visit [facility] [address] [facility], [address] [place] [address] Juarez Recinos MD 800 [place], [place] [id number] 09/28/2025 8:00 AM EST Appointment [facility] PET Scan [address] [place] [address] 09/28/2025 9:00 AM EST Appointment [facility] PET Scan [address] [place] [address] 09/28/2025 10:15 AM EST Office Visit [facility] 800 [facility], 2nd [place] [address] Kim Machado MD [address] [facility] [address] [place] [address] 01/13/2026 12:00 PM EST Office Visit [facility] [address] [place] [address] Eros Mejia MD [address] [place] [address] documented as of this encounter Procedures Procedure [...] Additional Comments Atraumatic. No change to dentition. Jose Roberto Colmenares MD ANESTHESIA ORDERABLES F [...] documented as of this encounter Care Teams Memorial Counselor Relationship Specialty Start Date End Date Darius Ken MD [address] [place] [address] PCP - General Internal Medicine 08/23/24 documented as of this encounter
--- OUTSIDE RECORDS SUMMARY | 2025-08-02 10:20 | XMS_ITS | Encounter Summary ---
Author Organization Healthcare Address [address] [place] [address] Care Team Providers Care Education Courses Sales Representative Name Role Phone Darius Ken MD Primary Care Provider [phone] Encounter Details Date Type Department Care Team (Latest Contact Info) Description 08/02/2025 10:20 AM EDT - 08/02/2025 11:59 PM EDT Hospital Encounter [facility] H Pulmonary Function Testing [address] [place] [address] 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 [...] total of 3 days. 72 tablet 5 Multiple Vitamin (multivitamin) capsule Take 1 [...] hours for 14 days. 56 tablet 5 08/18/20 25 bisoprolol (Zebeta) 5 MG tablet Take 1 tablet by mouth daily. Patient states half a tablet daily. 4 08/05/20 25 Famotidine (PEPCID PO) Take 20 mg by mouth daily. 5 08/15/20 25 loperamide (Imodium A-D) 2 MG tabletIndications:Myrtle nocarcinoma of gastroesophageal junction 2 mg by mouth every 2 hours as needed for diarrhea; Not to exceed 16 mg in 24 hours 30 tablet 5 5 08/15/20 25 documented as of this encounter Plan of Treatment Upcoming Encounters Date Type Department Care Team (Latest Contact Info) Description 09/01/2025 9:15 AM EDT Clinical Support [facility] Multidisciplinary Oncology Clinic [address] [place] [address] 09/01/2025 9:30 AM EDT Office Visit [facility] Multidisciplinary Oncology Clinic [address] [place] [address] Aristides Reina MD [address] [place] [address] 09/01/2025 11:00 AM EDT Appointment [facility] Infusion Clinic 2 [address] [place] [address] 09/03/2025 10:30 AM EDT Appointment [facility] Infusion Clinic 2 [address] [place] [address] 09/15/2025 9:30 AM EST Appointment [facility] Infusion [facility] 2 [address] [place] [address] 09/17/2025 9:00 AM EST Appointment [facility] Infusion Clinic 2 [address] [place] [address] 09/21/2025 8:45 AM EST Office Visit [facility] [place] [address], [address] [place] [address] Juarez Recinos MD 800 [place], [place] [phone] 09/28/2025 8:00 AM EST Appointment [facility] PET Scan [address] [place] [address] 09/28/2025 9:00 AM EST Appointment [facility] PET Scan [address] [place] [address] 09/28/2025 10:15 AM EST Office Visit [facility] Head[facility] Neck [facility] Respiratory 800 [facility], 2nd [place] [address] Kim Machado MD [address] [facility] [address] [place] [address] 01/13/2026 12:00 PM EST Office Visit [facility] [address] [place] [address] Eros Mejia MD [address] [place] [address] documented as of this encounter Procedures Procedure Name Priority Date/Time Associated Diagnosis Comments HC DIFFUSING CAPACITY - CARBON MONOXIDE DIFFUSING CAPACITY Routine 08/02/2025 12:00 PM EDT 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 (CMS/HCC) documented in this encounter Results * (ABNORMAL) Pulmonary function testing (08/02/2025 12:00 PM EDT) GOM3YCV 4.57 3.31 - 5.64 L VYAIRE PFT FVC PRED 4.47 VYAIRE PFT FVC LLN 3.31 VYAIRE PFT FVCPREZSCORE 0.14 VYAIRE PFT FVCPRE%PRED 102 % % VYAIRE PFT FVC PREDAUTSy[facility] [place] (2011) VYAIRE PFT FVC Z-SCORE 0.14 VYAIRE PFT FEV1 PRE 3.45 2.42 - 4.24 L VYAIRE PFT FEV1 PRED 3.36 VYAIRE PFT FEV1 LLN 2.42 VYAIRE PFT OJQ7IJPJYZYFS 0.18 VYAIRE PFT FEV1_Pre%Pred 103 % % VYAIRE PFT FEV1 PREDAUTSy[facility]als [facility] [place] (2011) VYAIRE PFT FEV1 Z-SCORE 0.18 VYAIRE PFT FEV1/FVC PRE 75.65 62.09 - 87.50 % VYAIRE PFT FHW9ZHVZKJP 76 VYAIRE PFT GEQ9VJKHXT 62 VYAIRE PFT WJB1VYHKNPEKLPHH 0.01 VYAIRE PFT VAS5YUOAMZ%PRED 100 % % VYAIRE PFT TIK2RTLZJXRU [facility] (2011) VYAIRE PFT FUW3ZGEEVSEFX 0 VYAIRE PFT KWX67-36% PRE 2.65 1.08 - 4.52 L/s VYAIRE PFT QKW00-80%_Pred 2.50 VYAIRE PFT NLY5723%LLN 1.08 VYAIRE PFT BXK9067%PREZSCORE 0.14 VYAIRE PFT OLS8153%PRE%PRED 106 % % VYAIRE PFT SBB9314%PREDLeConte Medical Center (2011) VYAIRE PFT PEF PRE 13.66(A) 6.32 - 11.18 L/s VYAIRE PFT PEF PRED 8.75 VYAIRE PFT PEF LLN 6.32 VYAIRE PFT PEFPREZSCORE 3.33 VYAIRE PFT PEFPRE%PRED 156 % % VYAIRE PFT PEF PRED[facility]AY[facility] III (1998) VYAIRE PFT KYUDZQBZPWQMNOPJ9MZO 16.30(A) 19.85 - 35.57 ml/(min* mmHg) VYAIRE PFT DLCOSINGLEBREATH PRED 27.02 VYAIRE PFT DLCOSINGLEBREATH LLN 19.85 VYAIRE PFT DLCOSINGLEBREATH Z-SCORE -2.60 VYAIRE PFT DLCOSINGLEBREATH % PRED 60.3 % VYAIRE PFT DLCOSINGLEBREATH PREDAUT Stanojevic TLCO GLI (2019) VYAIRE PFT DLCOSINGLEBREATH Z-SCORE -2.60 08/02/2025 12:05 PM EDT VYAIRE PFT CFEKDAUILHCSERSXA8YO E 16.90(A) 19.85 - 35.57 ml/(min* mmHg) VYAIRE PFT DLCOCSINGLEBREATH PRED 27.02 VYAIRE PFT DLCOCSINGLEBREATH LLN 19.85 VYAIRE PFT DLCOCSINGLEBREATH Z-SCORE -2.43 VYAIRE PFT DLCOCSINGLEBREATH % PRED 62.5 % VYAIRE PFT DLCOCSINGLEBREATH PREDKAYENT[facility] Stanojevic TLCO GLI (2019) VYAIRE PFT WXBYZA1QIT 2.90(A) 2.96 - 5.12 ml/(min* mmHg*L) VYAIRE PFT DLCOVAPRED 3.99 VYAIRE PFT DLCOVALLN 2.96 VYAIRE PFT DLCOVAZSCORE -1.75 VYAIRE PFT DLCOVA%PRED 72.6 % VYAIRE PFT DLCOVAPREDAUT Stanojevic TLCO GLI (2019) VYAIRE PFT DLCOVAZSCORE -1.75 08/02/2025 12:05 PM EDT VYAIRE PFT IARJHWIRD6KRF 3.00 2.96 - 5.12 ml/(min* mmHg*L) VYAIRE PFT DLCOC SB/VA PRED 3.99 VYAIRE PFT DLCOC SB/VA LLN 2.96 VYAIRE PFT DLCOC SB/VA Z-SCORE -1.57 VYAIRE PFT DLCOC SB/VA % PRED 75.2 % VYAIRE PFT DLCOC SB/VA PREDAUT Stanojevic TLCO GLI (2019) VYAIRE PFT DLCOC SB/VA Z-SCORE -1.57 08/02 12:05 PM EDT VYAIRE PFT MKEFWSXTFAKDYP2CDN 5.63 5.48 - 8.24 L VYAIRE PFT VASINGLEBREATH PRED 6.80 VYAIRE PFT VASINGLEBREATH LLN 5.48 VYAIRE PFT VASINGLEBREATH Z-SCORE -1.46 VYAIRE PFT VASINGLEBREATH % PRED 82.7 % VYAIRE PFT VASINGLEBREATH PREDKAYENTA [facility] Stanojevic TLCO GLI (2019) VYAIRE PFT VASINGLEBREATH Z-SCORE -1.46 08/02/2025 12:05 PM EDT VYAIRE PFT ZQHNUEOHAQQUESB7KNS 4.44 3.31 - 5.64 L VYAIRE PFT IVCSINGLEBREATH PRED 4.47 VYAIRE PFT IVCSINGLEBREATH LLN 3.31 VYAIRE PFT IVCSINGLEBREATH Z-SCORE -0.04 VYAIRE PFT IVCSINGLEBREATH % PRED 99.4 % VYAIRE PFT IVCSINGLEBREATH PREDKAY[facility] US_Quanjer GLI (2011) VYAIRE PFT AZALEA% VCMAX PRE 96.17 % VYAIRE PFT TLC SB PRE 5.83(A) 5.97 - 9.15 L VYAIRE PFT TLCSINGLEBREATH PRED 7.55 VYAIRE PFT TLCSINGLEBREATH LLN 5.97 VYAIRE PFT TLCSINGLEBREATH Z-SCORE -1.79 VYAIRE PFT TLCSINGLEBREATH % PRED 77.2 % VYAIRE PFT TLCSINGLEBREATH PREDKAY[facility] Lung volumes GLI (2019)__ VYAIRE PFT HB PRE 13.40 g(Hb)/dL VYAIRE PFT EZM7APU 6.59 5.97 - 9.15 L VYAIRE PFT TLCPRED 7.55 VYAIRE PFT TLCLLN 5.97 VYAIRE PFT TLCULN 9.15 VYAIRE PFT TLCZSCORE -1.00 VYAIRE PFT TLC%PRED 87.3 % VYAIRE PFT TLCPREDAUTWadsworth-[facility]man [facility] Lung volumes GLI (2019)__ VYAIRE PFT [...] VYAIRE PFT IC%PRED 105.7 % V[facility]AIRE PFT ICPREDWorcester [facility] Lung volumes GLI (2019)__ VYAIRE PFT TFXKTDZO1OHV 2.95 2.88 - 5.71 L VYAIRE PFT FRCPLETH PRED 4.13 VYAIRE PFT FRCPLETH LLN 2.88 VYAIRE PFT FRCPLETH ULN 5.71 VYAIRE PFT FRCPLETH Z-SCORE -1.53 VYAIRE PFT FRCPLETH % PRED 71.4 % VYAIRE PFT FRCPLETH PREDAUTWadsworth-[facility] Lung volumes GLI (2019)__ VYAIRE PFT AKG0TEV 0.98 0.43 - 2.72 L VYAIRE PFT ERVPRED 1.35 VYAIRE PFT ERVLLN 0.43 VYAIRE PFT ERVULN 2.72 VYAIRE PFT ERV Z-SCORE -0.58 VYAIRE PFT ERV%PRED 72.1 % VYAIRE PFT ERVPREDWorcester Recovery Center and Hospital Lung volumes GLI (2019)__ VYAIRE PFT RV0PRE 1.98 1.60 - 4.02 L VYAIRE PFT RVPRED 2.70 VYAIRE PFT RVLLN 1.60 VYAIRE PFT RVULN 4.02 VYAIRE PFT RVZSCORE -1.04 VYAIRE PFT RV%PRED 73.2 % VYAIRE PFT RVPREDAUTH [place] Lung volumes GLI (2019)__ VYAIRE PFT RV%AZD1LVR 29.97 24.30 - 47.37 % VYAIRE PFT [...] underwent pulmonary function testing today at the [facility]. The patient underwent spirometry, lung volumes by [...] documented as of this encounter Care Teams Education Courses Sales Representative Relationship Specialty Start Date End Date Darius Ken MD [address] [place] [id number] PCP - General Internal Medicine 08/23/24 documented as of this encounter
--- OUTSIDE RECORDS SUMMARY | 2025-08-03 07:37 | XMS_ITS | Encounter Summary ---
Author Organization Healthcare Address [address] [place] [address] Care Team Providers Care Cut Off Saw Operator Metal Name Role Phone Darius Ken MD Primary Care Provider [phone] Reason for Visit * Episode Based Medications (Routine) - Authorized Specialty Diagnoses / Procedures Referred By Contac t Referred To Contact Diagnoses Adenocarcinoma of gastroesophageal junction Procedures FLOT: Fluorouracil + Leucovorin + OXALIplatin + DOCEtaxel Every 14 Days X 2 Every 28 Days Que Gentile MD 800 [facility] Bettina Hood [address] [address] Phone: tel: fax: Que Gentile MD [address] [place] [address] Bettina Hood [address] [address] Phone: tel: fax: Referral ID Status Reason Start Date Expiration Date V isits Requested Visits Authorized [id number] Authorized 07/21/2025 01/20/2027 1 20 Encounter Details Date Type Department Care Team (Latest Contact Info) Description 08/03/2025 7:37 AM EDT - 08/03/2025 11:59 PM EDT Hospital Encounter [facility] [address] [place] [address] 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) [...] 08/15/20 25 documented as of this encounter Miscellaneous [...] time. Pharmacist Attestation: Radha GoldmanD, [facility] Clinical Oncology Pharmacist documented in this encounter Plan of Treatment Upcoming Encounters Date Type Department Care Team (Latest Contact Info) Description 09/01/2025 9:15 AM EDT Clinical Support [facility] Multidisciplinary Oncology Clinic [address] [place] [address] 09/01/2025 9:30 AM EDT Office Visit [facility] Multidisciplinary Oncology Clinic [address] [place] [address] Aristides Reina MD 800 [place] [address] 09/01/2025 11:00 AM EDT Appointment [facility] Infusion Clinic 2 [address] [place] [address] 09/03/2025 10:30 AM EDT Appointment [facility] 2 [address] [place] [address] 09/15/2025 9:30 AM EST Appointment [facility] 2 [address] [place] [address] 09/17/2025 9:00 AM EST Appointment [facility] 2 [address] [place] [address] 09/21/2025 8:45 AM EST Office Visit [facility] [place] [address] [facility], [address] [place] [address] Juarez Recinos MD [address] [place] [address] 09/28/2025 8:00 AM EST Appointment [facility] PET Scan [address] [place] [address] 09/28/2025 9:00 AM EST Appointment [facility] PET Scan [address] [place] [address] 09/28/2025 10:15 AM EST Office Visit [facility] [address] [facility], 2nd [place] [address] Kim Machado MD [address] [facility] [address] [place] [address] 01/13/2026 12:00 PM EST Office Visit [facility] [address] [place] [address] Eros Mejia MD [address] [place] [address] Scheduled Orders Name Type Priority [...] Free T4, Plasma (08/03/2025 8:02 AM EDT) Pathologist [facility] Free T4, Plasma 1.5 0.8 - 1.7 ng/dL 08/03/2025 9:14 AM EDT [facility] Blood Blood sample taken from central line / Unknown (Port) Long-term Catheter / Unknown 08/03/2025 8:02 AM EDT 08/03/2025 8:13 AM EDT us Que Gentile MD LAB BLOOD ORDERABLES Final R esult [facility] [address] [place] [address] * (ABNORMAL) CBC and differential (08/03/2025 8:02 AM EDT) WBC Count 12.63(H) 3.70 - 10.30 10*3/uL LAB HEMATOLOGY METHOD 08/03/2025 8:29 AM EDT [facility] RBC Count 4.24(L) 4.60 - 6.10 10*6/uL LAB HEMATOLOGY METHOD 08/03/2025 8:29 AM EDT [facility] HGB 13.0(L) 13.7 - 17.5 g/dL LAB HEMATOLOGY METHOD 08/03/2025 8:29 AM EDT [facility] HCT 38.7(L) 40.0 - 51.0 % LAB HEMATOLOGY METHOD 08/03/2025 8:29 AM EDT [facility] Platelet Count 326 155 - 369 10*3/uL LAB HEMATOLOGY METHOD 08/03/2025 8:29 AM EDT [facility] MCV 91 79 - 98 fL LAB HEMATOLOGY METHOD 08/03/2025 8:29 AM EDT [facility] MCH 30.7 26.0 - 32.0 pg LAB HEMATOLOGY METHOD 08/03/2025 8:29 AM EDT [facility] MCHC 33.6 30.7 - 35.5 g/dL LAB HEMATOLOGY METHOD 08/03/2025 8:29 AM EDT [facility] RDW 11.9 11.5 - 14.5 % LAB HEMATOLOGY METHOD 08/03/2025 8:29 AM EDT [facility] MPV 10.6 8.8 - 12.5 fL LAB HEMATOLOGY METHOD 08/03/2025 8:29 AM EDT [facility] nRBC 0.0 <=0.0 per 100 WBCs LAB HEMATOLOGY METHOD 08/03/2025 8:29 AM EDT [facility] Differential Type Automated LAB HEMATOLOGY METHOD 08/03/2025 8:29 AM EDT [facility] Neutrophils % 92 % LAB HEMATOLOGY METHOD 08/03/2025 8:29 AM EDT [facility] Lymphocytes % 6 % LAB HEMATOLOGY METHOD 08/03/2025 8:29 AM EDT [facility] Monocytes % 2 % LAB HEMATOLOGY METHOD 08/03/2025 8:29 AM EDT [facility] Eosinophils % 0 % LAB HEMATOLOGY METHOD 08/03/2025 8:29 AM EDT [facility] Basophils % 0 % LAB HEMATOLOGY METHOD 08/03/2025 8:29 AM EDT [facility] Immature Granulocytes % 0 % LAB HEMATOLOGY METHOD 08/03/2025 8:29 AM EDT [facility] Neutrophils Absolute 11.57(H) 1.60 - 6.10 10*3/uL LAB HEMATOLOGY METHOD 08/03/2025 8:29 AM EDT [facility] Lymphocytes Absolute 0.71(L) 1.20 - 3.90 10*3/uL LAB HEMATOLOGY METHOD 08/03/2025 8:29 AM EDT [facility] Monocytes Absolute 0.30 0.30 - 0.90 10*3/uL LAB HEMATOLOGY METHOD 08/03/2025 8:29 AM EDT [facility] Eosinophils Absolute 0.00 0.00 - 0.50 10*3/uL LAB HEMATOLOGY METHOD 08/03/2025 8:29 AM EDT [facility] Basophils Absolute 0.01 0.00 - 0.10 10*3/uL LAB HEMATOLOGY METHOD 08/03/2025 8:29 AM EDT [facility] Immature Granulocytes Absolute 0.04 0.00 - 0.06 10*3/uL LAB HEMATOLOGY METHOD 08/03/2025 8:29 AM EDT [facility] Blood Blood sample taken from central line / Unknown (Port) Long-term Catheter / Unknown 08/03/2025 8:02 AM EDT 08/03/2025 8:17 AM EDT Narrative [facility] - 08/03/2025 8:29 AM EDT Therapeutic decision making should be based on absolute values, rather than percentages. us Que Gentile MD LAB BLOOD ORDERABLES Final R esult [facility] [address] [place] [address] * (ABNORMAL) Comprehensive metabolic panel (08/03/2025 8:02 AM EDT) Glucose, Plasma 143(H) 74 - 99 mg/dL 08/03/2025 8:51 AM EDT [facility] BUN, Plasma 22 8 - 23 mg/dL 08/03/2025 8:51 AM EDT [facility] Creatinine, Plasma 1.23(H) 0.70 - 1.20 mg/dL 08/03/2025 8:51 AM EDT [facility] BUN/Creatinine Ratio 18 08/03/2025 8:51 AM EDT [facility] Sodium, Plasma 139 136 - 145 mmol/L 08/03/2025 8:51 AM EDT [facility] Potassium, Plasma 4.0 3.6 - 4.9 mmol/L 08/03/2025 8:51 AM EDT [facility] Chloride, Plasma 106 97 - 107 mmol/L 08/03/2025 8:51 AM EDT [facility] CO2, Plasma 21(L) 22 - 29 mmol/L 08/03/2025 8:51 AM EDT [facility] Anion Gap 12 6 - 16 mmol/L 08/03/2025 8:51 AM EDT [facility] Total Calcium, Plasma 9.5 8.9 - 10.2 mg/dL 08/03/2025 8:51 AM EDT [facility] Total Protein 7.1 6.3 - 7.9 g/dL 08/03/2025 8:51 AM EDT [facility] Albumin, Plasma 3.9 3.5 - 5.2 g/dL 08/03/2025 8:51 AM EDT [facility] AST, Plasma 20 10 - 50 U/L 08/03/2025 8:51 AM EDT [facility] ALT, Plasma 26 10 - 50 U/L 08/03/2025 8:51 AM EDT [facility] Alkaline Phosphatase, Plasma 63 40 - 115 U/L 08/03/2025 8:51 AM EDT [facility] Total Bilirubin, Plasma 0.4 0.2 - 1.1 mg/dL 08/03/2025 8:51 AM EDT [facility] eGFRcr 63.2 mL/min/1.7 3m*2 08/03/2025 8:51 AM EDT [facility] Comment:Reported eGFRcr in m L/min/1.73m2 is based the CKD-EPI 2020 equation that does not use a race coefficient. Blood Blood sample taken from central line / Unknown (Port) Long-term Catheter / Unknown 08/03/2025 8:02 AM EDT 08/03/2025 8:13 AM EDT Que Gentile MD LAB BLOOD ORDERABLES Final R esult Performing Organization Address City/[facility]/ZIP Co de Phone Number [facility] [address] [place] [address] * (ABNORMAL) TSH Reflex FT4 (08/03/2025 8:02 AM EDT) Thyroid Stimulating Hormone, Plasma 0.34(L) 0.40 - 4.20 uIU/mL 08/03/2025 8:51 AM EDT [facility] Blood Blood sample taken from central line / Unknown (Port) Long-term Catheter / Unknown 08/03/2025 8:02 AM EDT 08/03/2025 8:13 AM EDT Que Gentile MD LAB BLOOD ORDERABLES Final R esult Performing Organization Address City/[facility]/ZIP Co de Phone Number [facility] [address] [place] [address] documented in this encounter Visit Diagnoses Diagnosis [...] 46 Hours, Over 46 hours, Dispense from [facility] Hazardous Drug-Tier 1 Precautions. Administer via [...] documented as of this encounter Care Teams Cut Off Saw Operator Metal Relationship Specialty Start Date End Date Darius Ken MD [address] [place] [address] PCP - General Internal Medicine 08/23/24 documented as of this encounter
--- OUTSIDE RECORDS SUMMARY | 2025-08-05 10:27 | XMS_ITS | Encounter Summary ---
Author Organization Healthcare Address 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 56 tablet 5 08/18/20 25 Famotidine (PEPCID PO) Take 20 mg [...] Description 09/01/2025 9:15 AM EDT Clinical Support [facility] [address] [place] [address] 09/01/2025 9:30 AM EDT Office Visit [facility] [address] [place] [address] Aristides Reina MD [address] [place] [address] 09/01/2025 11:00 AM EDT Appointment [facility] 2 [address] [place] [address] 09/03/2025 10:30 AM EDT Appointment [facility] 2 [address] [place] [address] 09/15/2025 9:30 AM EST Appointment [facility] 2 [address] [place] [address] 09/17/2025 9:00 AM EST Appointment [facility] 2 [address] [place] [address] 09/21/2025 8:45 AM EST Office Visit [facility] [place] [address] [facility], [address] [place] [address] Juarez Recinos MD [address] [place] [address] 09/28/2025 8:00 AM EST Appointment [facility] PET Scan [address] [place] [address] 09/28/2025 9:00 AM EST Appointment [facility] PET Scan [address] [place] [address] 09/28/2025 10:15 AM EST Office Visit [facility] 800 [facility], 2nd [place] [address] Kim Machado MD [address] [facility] [address] [place] [address] 01/13/2026 12:00 PM EST Office Visit [facility] [address] [place] [address] Eros Mejia MD [address] [place] [address] documented as of this encounter Visit Diagnoses Diagnosis Adenocarcinoma of gastroesophageal junction- Primary documented in this encounter Additional Health Concerns Assessment Noted Time A fall risk assessment has been complete d for the patient 08/05/2025 10:30 AM EDT A Body Mass Index follow-up plan has been documented for the patient 07/27/2025 3:02 PM EDT documented as of this encounter Care Teams Skiver Machine Relationship Specialty Start Date End Date Darius Ken MD [address] [place] [address] PCP - General Internal Medicine 08/23/24 documented as of this encounter
--- OUTSIDE RECORDS SUMMARY | 2025-08-13 12:20 | XMS_ITS | Encounter Summary ---
Author Organization [facility] Address [address] 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 Name Role Phone Darius Ken MD Primary Care Provider [phone] Reason for Referral * Consultation (Routine) - Authorized Specialty Diagnoses / Procedures Referred By Contac t Referred To Contact Family Medicine Diagnoses Atrial fibrillation, unspecified type (CMS/HCC) Ana Rosa Fields MD [address] [place] [address] Phone: tel: fax: Referral ID Status Reason Start Date Expiration Date V isits Requested Visits Authorized [id number] Authorized 08/15/2025 02/14/2027 1 1 * Consultation (Routine) - Authorized Specialty Diagnoses / Procedures Referred By Contac t Referred To Contact Cardiology Diagnoses Atrial fibrillation, unspecified type (CMS/HCC) Ana Rosa Fields MD [address] [place] [address] Phone: tel: fax: Referral ID Status Reason Start Date Expiration Date Visits Requested Visits Authorized [id number] Authorized Specialty Services Required 08/15/2025 02/14/2027 1 1 Scheduling Instructions [facility] * Cardiac Stress Testing (Routine) - Closed Specialty Diagnoses / Procedures Referred By Contac t Referred To Contact Cardiology Diagnoses Atrial fibrillation, unspecified type (CMS/HCC) Procedures Adult Patch Monitor - 14 Day Ana Rosa Fields MD [address] [place] [address] Phone: tel: fax: Referral ID Status Reason Start Date Expiration Date Visits Re quested Visits Authorized [id number] Closed 08/15/2025 02/14/2027 1 1 Reason for Visit * Reason Comments Nausea * Auth/Cert (Routine) Specialty Diagnoses / Procedures Referred By Contac t Referred To Contact Diagnoses Colitis Epigastric pain Gastric adenocarcinoma (CMS/HCC) NSTEMI (non-ST elevated myocardial infarction) Nausea vomiting and diarrhea Atrial fibrillation, unspecified type (CMS/HCC) esophageal cancer w/ mets, n-stemi Karlos Castañeda MD [address] [place] [address] Phone: tel: fax: [facility] Inpatient [facility] [address] [place] [phone] Phone: tel: Referral ID Status Reason Start Date Expiration Date Visits Re quested Visits Authorized [id number] 1 1 Encounter Details Date Type Department Care Team (Latest Contact Info) Description 08/13/2025 12:20 PM EDT - 08/15/2025 7:52 PM EDT Hospital Encounter PAV A Inpatient [facility] [address] [place] [phone] Kalina Crandall MD [address] [place] [address] Frandy Cunningham MD [address] [place] [address] Karlos Castañeda MD [address] [place] [address] Ana Rosa Fields MD [address] [place] [phone] Epigastric pain (Primary Dx); Gastric adenocarcinoma (CMS/HCC); Nausea vomiting and diarrhea; Colitis; Atrial fibrillation, unspecified type (CMS/HCC); NSTEMI (non-ST elevated myocardial infarction) Discharge Disposition: Home or Self Care Social History Tobacco Use Types Packs/Day Years Used Date Smoking Tobacco: Never Smokeless Tobacco: Never Alcohol Use Standard Drinks/Week Comments Never 0 (1 standard drink = 0.6 oz pur e alcohol) PHQ-2 Answer Date Recorded Patient Health Questionnaire-2 Score 0 08/23/2024 Humiliation, Afraid, Rape, and Kick questionnair e Answer Date Recorded Within the last year, have y ou been afraid of your partner or ex-partner? No 08/15/2025 Within the last year, have y ou been humiliated or emotionally abused in other ways by your partner or ex-partner? No Within the last year, have y ou been kicked, hit, slapped, or otherwise physically hurt by your partner or ex-partner? No 08/15/2025 Within the last year, have y ou been raped or forced to have any kind of sexual activity by your partner or ex-partner? No 08/15/2025 Hunger Vital Sign Answer Date Recorded Within the past 12 months, y ou worried that your food would run out before you got the money to buy more. Never true 08/15/20 25 Within the past 12 months, t he food you bought just didn't last and you didn't have money to get more. Never true 08/15/2025 PRAPARE - Transportation Answer Date Re corded In the past 12 months, has l ack of transportation kept you from medical appointments or from getting medications? No 04/2025 In the past 12 months, has l ack of transportation kept you from meetings, work, or from getting things needed for daily living? No 08/15/2025 Housing Stability Vital Sign Answer Mundo e Recorded In the last 12 months, was t here a time when you were not able to pay the mortgage or rent on time? No 08/15/2025 Number of Times Moved in the Last Year Not on fi le 08/15/2025 At any time in the past 12 m [facility], were you homeless or living in a residential (including now)? No 08/15/2025 [facility] Utilities Answer Date Recorded In the past 12 months has e electric, gas, oil, or water company threatened to shut off services in your home? No 08/15/2025 Sex and Gender Information Value Date Recorded Sex Assigned at Male 07/23/2024 9:40 AM EDT Legal Sex Male 8:50 PM EDT Gender Identity Male 07/23/2024 9:40 AM EDT Sexual Orientation Not on file documented as of this encounter Last Filed Vital Signs Vital Sign Reading Time Taken Comments Blood Pressure 103/58 08/15/2025 4:18 PM EDT Pulse 70 08/15/2025 4:18 PM EDT Temperature 36.5 C (97.7 F) 08/15/2025 4:16 PM EDT Respiratory Rate 16 08/15/2025 4:16 PM EDT Oxygen Saturation 100% 08/15/2025 4:18 PM EDT Inhaled Oxygen Concentration - - Weight 88.8 kg (195 lb 12.3 oz) 08/15/2025 5:00 AM EDT Height 182.9 cm (6') 08/13/2025 6:29 PM EDT Body Mass Index 26.55 08/13/2025 6:29 PM EDT documented in this encounter Functional Status * Calculated C-SSRS Risk Score (Lifetime/Recent) Answer Date of Assessment Author No Risk Indicated 08/13/2025 8:00 PM EDT Ana Cristina Berger * Question Answer Date of Assessment Author 1. Wish to be (Past 1 Month) No 025 8:00 PM EDT Ana Cristina Yo 2. Non-Specific Active Suici pearl Thoughts (Past 1 Month) No 08/13/2025 8:00 PM EDT Vaughn Yo 6. 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 [facility] Multidisciplinary Oncology Clinic [phone] [address] [facility] [phone] 08/18/2025 11:00 AM (Arrive by 10:40 AM) Nini Eason MD [facility] Multidisciplinary Oncology Clinic [phone] [address] [facility] [phone] 08/18/2025 12:00 PM [facility] PAV H Infusion [phone] [address] [facility] [phone] documented in this encounter Medications at Time of Discharge alfuzosin (Uroxatral) 10 MG 24 hr tablet Take 1 tablet by mouth daily. 4 apixaban (Eliquis) 5 MG tablet Take 1 tablet by mouth 2 times a day. 60 tablet 5 09/14/20 25 dexamethasone (Decadron) 4 MG tabletIndications:Myrtle nocarcinoma of gastroesophageal junction Take 2 tablets by mouth 2 times a day. Start day prior to docetaxel and continue for a total of 3 days. 72 tablet 5 famotidine (Pepcid) 20 MG tablet Take 1 tablet by mouth daily. Multiple Vitamin (multivitamin) capsule Take 1 capsule by mouth daily. ondansetron (Zofran) 8 MG tabletIndications:Myrtle nocarcinoma of gastroesophageal junction Take 1 tablet by mouth 2 times a day. Take for two days starting the day after chemotherapy and then take PRN 30 tablet 3 5 oxyCODONE-acetaminoph en (Percocet) 5-325 MG tablet Take 1 tablet by mouth every 6 hours as needed for severe pain. 120 tablet 5 09/09/20 25 pantoprazole (Protonix) 40 MG EC tablet Take 1 tablet by mouth daily. Do not crush, chew, or split. 30 tablet 5 09/14/20 25 prochlorperazine (Compazine) 10 MG tabletIndications:Myrtle nocarcinoma of gastroesophageal junction Take 1 tablet by mouth every 6 hours as needed for nausea or vomiting. 30 tablet 5 5 rosuvastatin (Crestor) 10 MG tablet Take 1 tablet by mouth daily. 4 acetaminophen (Tylenol) 500 MG tablet Take 1 tablet by mouth every 6 hours for 14 days. 56 tablet 5 08/18/20 25 guaiFENesin (Robitussin) 100 MG/5ML solution Take 10 mL by mouth every 4 hours as needed for cough for up to 3 days. 118 mL 5 08/18/20 25 documented as of this encounter Miscellaneous Notes * Nursing Note - Didi Goodson RN - 08/15/2025 6:59 PM EDT Discussed AVS with patient and patient's . Patient went verbalized how to take each new medication, and when to notify provider of any signs of concern. Follow up appointments also discussed. Neither patient nor pt had any further questions. 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 * [facility] - Didi Goodson RN - 08/15/2025 6:10 PM EDT Images from the original note were not included. [id number] Guaifenesin WHY is this medicine prescribed? Guaifenesin is used to relieve chest congestion. Guaifenesin may help control symptoms but does nottreat the cause of symptoms or speed recovery. Guaifenesin is in a class of medications called expectorants. It works by thinning the mucus in the air passages to make it easier to cough up the mucusand clear the airways. HOW should this medicine be used? Guaifenesin comes as a tablet, a capsule, an extended-release (long-acting) tablet, dissolving granules, and a syrup (liquid) to take by mouth. The tablets, capsules, dissolving granules, and syrup are usually taken with or without food every 4 hours as needed. The extended-release tablet is usually taken with or without food every 12 hours. Follow the directions on the package or on your prescription label carefully, and ask your doctor or pharmacist to explain any part you do not understand. Take guaifenesin exactly as directed. Do not take more or less of it or take it more often than prescribed by your doctor. Guaifenesin comes alone and in combination with antihistamines, cough suppressants, and decongestants. Ask your doctor or pharmacist for advice on which product is best for your symptoms. Check nonprescription cough and cold product labels carefully before using two or more products at the same time. These products may contain the same active ingredient(s) and taking them together could cause youto receive an overdose. This is especially important if you will be giving cough and cold medications to a child. Nonprescription cough and cold combination products, including products that contain guaifenesin, can cause serious side effects or in young children. Do not give these products to children younger than 4 years of age. If you give these products to children 4 to 11 years of age, use caution and follow the package directions carefully. If you are giving guaifenesin or a combination product that contains guaifenesin to a child, read the package label carefully to be sure that it is the right product for a child of that age. Do not give guaifenesin products that are made for adults to children. Before you give a guaifenesin product to a child, check the package label to find out how much medication the child should receive. Give the dose that matches the child's age on the chart. Ask the child's doctor if you don't know how much medication to give the child. If you are taking the liquid, do not use a household spoon to measure your dose. Use the measuring spoon or cup that came with the medication or use a spoon made especially for measuring medication. Swallow the extended-release tablets whole with a full glass of water. Do not break, crush, or chewthem. If you are taking the dissolving granules, empty the entire contents of the packet onto your tongueand swallow. If your symptoms do not improve within 7 days or if you also have a high fever, a rash, or a headache that does not go away, call your doctor. Are there OTHER USES for this medicine? This medication is sometimes prescribed for other uses; ask your doctor or pharmacist for more information. What SPECIAL PRECAUTIONS should I follow? Before taking guaifenesin, ? tell your doctor and pharmacist if you are allergic to guaifenesin, any other medications, or anyof the ingredients in the guaifenesin product you plan to take. Check the package label for a list of the ingredients. ? tell your doctor and pharmacist what prescription and nonprescription medications, vitamins, nutritional supplements, and herbal products you are taking or plan to take. ? tell your doctor if you smoke and if you have or have ever had a cough that occurs with a large amount of phlegm (mucus) or if you have or have ever had a breathing problem such as asthma, emphysema, or chronic bronchitis. If you will be taking the dissolving granules, tell your doctor if you areon a low magnesium diet or if you have kidney disease. ? tell your doctor if you are , plan to become , or are breast- feeding. If you become while taking guaifenesin, call your doctor. ? if you have phenylketonuria (PKU, a inherited condition in which a special diet must be followed to prevent damage to your brain that can cause severe intellectual disability), you should know thatthe dissolving granules may be sweetened with aspartame, a source of phenylalanine. What SPECIAL DIETARY instructions should I follow? Drink plenty of fluids while you are taking this medication. Unless your doctor tells you otherwise, continue your normal diet. What should I do IF I FORGET to take a dose? Guaifenesin is usually taken as needed. If your doctor has told you to take guaifenesin regularly, take the missed dose as soon as you remember it. However, if it is almost time for the next dose, skip the missed dose and continue your regular dosing schedule. Do not take a double dose to make up for a missed one. What SIDE EFFECTS can this medicine cause? Guaifenesin may cause side effects. Tell your doctor if any of these symptoms are severe or do not go away: ? headache ? nausea ? vomiting Guaifenesin may cause other side effects. Call your doctor if you have any unusual problems while you are taking this medication. What should I know about STORAGE and DISPOSAL of this medication? Keep this medication in the container it came in, tightly closed, and out of reach of children. Store it at room temperature and away from excess heat and moisture (not in the bathroom). Dispose of unneeded medications in a way so that pets, children, and other people cannot take them.Do not flush this medication down the toilet. Use a medicine take-back program. Talk to your pharmacist about take-back programs in your community. Visit the FDA's Safe Disposal of Medicines website h ttps://goo.gl/c4Rm4p for more information. Keep all medication out of sight and reach of children as many containers are not child-resistant. Always lock safety caps. Place the medication in a safe location - one that is up and away and out of their sight and reach. https://www.upandaway.org What should I do in case of OVERDOSE? In case of overdose, call the poison control helpline at . Information is also available online at https://www.poisonhelp.org/help. If the victim has collapsed, had a seizure, has trouble breathing, or can't be awakened, immediately call emergency services at 161. What OTHER INFORMATION should I know? Ask your pharmacist any questions you have about guaifenesin. Keep a written list of all of the prescription and nonprescription (jeuu-gbx-troteyc) medicines, vitamins, minerals, and dietary supplements you are taking. Bring this list with you each time you visit a doctor or if you are admitted to the hospital. You should carry the list with you in case of dwight rgencies. Brand Name(s): ? Adult Tussin?? ? Air Power?? ? Bronchoril?? ? Chest Congestion?? ? Childrens Mucinex?? ? Childrens Mucus Relief?? ? Cough Out?? ? Diabetic Siltussin LAWLER-Na?? ? Diabetic Tussin Expectorant?? ? Diabetic Tussin Mucus Relief?? ? Equaline Tussin?? ? Equate Tussin?? ? [facility] Tussin?? ? Good Sense Tussin?? ? Guiatuss?? ? Iophen NR?? ? Kids-EEZE?? ? Leader Adult Tussin?? ? Leader Mucus Relief?? ? Liqufruta?? ? Little Remedies Little Colds Mucus Relief Expectorant Melt Aways?? ? MucaPlex?? ? Mucinex?? ? Mucinex for Kids?? ? Mucus Relief?? ? Mucus Relief Chest?? ? ORGAN-I NR?? ? Premier Value Chest Congestion Relief?? ? Q-Tussin?? ? Refenesen?? Chest Congestion Relief ? Robitussin?? Chest Congestion ? Scot-Tussin?? Expectorant SF Cough ? [facility] Tussin DM?? ? Siltussin LAWLER?? ? Siltussin SA?? ? Smart Sense Tussin?? ? Sunmark Tussin?? ? Topcare Mucus Relief?? ? Topcare Tussin?? ? Tussin?? ? Tussin Chest?? ? Tussin Chest Congestion?? ? Tussin Original?? ? Up and Up Childrens Mucus Relief?? ? Vicks?? DayQuil?? ? Wal Tussin?? ? Adult Tussin DM?? (as a combination product containing Dextromethorphan, Guaifenesin) ? Aldex?? (as a combination product containing Guaifenesin, Pseudoephedrine) ? Biocotron?? (as a combination product containing Dextromethorphan, Guaifenesin) ? Biospec?? (as a combination product containing Dextromethorphan, Guaifenesin) ? Bisolvine?? (as a combination product containing Dextromethorphan, Guaifenesin) ? Care One Chest Congestion Relief?? (as a combination product containing Dextromethorphan, Guaifenesin) ? Certuss?? (as a combination product containing Chlophedianol, Guaifenesin) ? Cheratussin AC?? (as a combination product containing Codeine, Guaifenesin) ? chest congestion?? (as a combination product containing Dextromethorphan, Guaifenesin) ? Childrens Mucus Relief?? (as a combination product containing Dextromethorphan, Guaifenesin) ? Childrens Mucus Relief Gunter?? (as a combination product containing Dextromethorphan, Guaifenesin) ? Childrens Mucus Relief Cough Gunter?? (as a combination product containing Dextromethorphan, Guaifenesin) ? Childrens Relief Gunter?? (as a combination product containing Dextromethorphan, Guaifenesin) ? Chlo Tuss?? (as a combination product containing Chlophedianol, Guaifenesin) ? Codar?? (as a combination product containing Codeine, Guaifenesin) ? Cough?? (as a combination product containing Dextromethorphan, Guaifenesin) ? Cough Syrup?? (as a combination product containing Dextromethorphan, Guaifenesin) ? CounterAct?? (as a combination product containing Dextromethorphan, Guaifenesin) ? CVS Chest Congestion Relief?? (as a combination product containing Dextromethorphan, Guaifenesin) ? Dex-Tuss?? (as a combination product containing Codeine, Guaifenesin) ? Health Childrens Mucus Relief Cough?? (as a combination product containing Dextromethorphan, Guaifenesin) ? Health Tussin DM?? (as a combination product containing Dextromethorphan, Guaifenesin) ? Diabetic Tussin DM?? (as a combination product containing Dextromethorphan, Guaifenesin) ? Diabetic Tussin DM Maximum Strength?? (as a combination product containing Dextromethorphan, Guaifenesin) ? Donatussin Drops?? (as a combination product containing Guaifenesin, Phenylephrine) ? Double Tussin Intense Cough Reliever?? (as a combination product containing Dextromethorphan, Guaifenesin) ? Equaline Adult Tussin?? (as a combination product containing Dextromethorphan, Guaifenesin) ? Equaline Tussin Cough and Chest Congestion?? (as a combination product containing Dextromethorphan, Guaifenesin) ? Equate Tussin DM?? (as a combination product containing Dextromethorphan, Guaifenesin) ? Expectorant Plus Cough Relief?? (as a combination product containing Dextromethorphan, Guaifenesin) ? FormuCare Cough Syrup DM?? (as a combination product containing Dextromethorphan, Guaifenesin) ? Freds Chest Congestion Relief?? (as a combination product containing Dextromethorphan, Guaifenesin) ? [facility] Adult Tussin?? (as a combination product containing Dextromethorphan, Guaifenesin) ? [facility] Tussin DM?? (as a combination product containing Dextromethorphan, Guaifenesin) ? [facility] Tussin DM Max?? (as a combination product containing Dextromethorphan, Guaifenesin) ? Good Sense Childrens Mucus Relief Cough?? (as a combination product containing Dextromethorphan, Guaifenesin) ? Good Sense tussin?? (as a combination product containing Dextromethorphan, Guaifenesin) ? Good Sense Tussin DM?? (as a combination product containing Dextromethorphan, Guaifenesin) ? Guaiasorb DM?? (as a combination product containing Dextromethorphan, Guaifenesin) ? Guaiatussin AC?? (as a combination product containing Codeine, Guaifenesin) ? Guiatuss DM?? (as a combination product containing Dextromethorphan, Guaifenesin) ? Healthy Accents Tussin DM?? (as a combination product containing Dextromethorphan, Guaifenesin) ? Iophen C NR?? (as a combination product containing Codeine, Guaifenesin) ? Iophen DM NR?? (as a combination product containing Dextromethorphan, Guaifenesin) ? Leader Adult Tussin DM?? (as a combination product containing Dextromethorphan, Guaifenesin) ? Leader Childrens Mucus Relief Cough?? (as a combination product containing Dextromethorphan, Guaifenesin) ? Leader Intense Cough Reliever?? (as a combination product containing Dextromethorphan, Guaifenesin) ? Leader Tussin DM Max?? (as a combination product containing Dextromethorphan, Guaifenesin) ? Lusair?? (as a combination product containing Guaifenesin, Phenylephrine) ? Mucinex Fast-Max?? (as a combination product containing Dextromethorphan, Guaifenesin) ? Mucus Relief Cough?? (as a combination product containing Dextromethorphan, Guaifenesin) ? Mucus Relief DM?? (as a combination product containing Dextromethorphan, Guaifenesin) ? Nature Fusion?? (as a combination product containing Dextromethorphan, Guaifenesin) ? PediaCare Childrens Cough and Congestion?? (as a combination product containing Dextromethorphan,Guaifenesin) ? Premier Value Chest Congestion and Cough Relief?? (as a combination product containing Dextromethorphan, Guaifenesin) ? Primatene?? (as a combination product containing Ephedrine, Guaifenesin) ? Q Tussin DM?? (as a combination product containing Dextromethorphan, Guaifenesin) ? RelCof-C?? (as a combination product containing Codeine, Guaifenesin) ? Robafen DM Max?? (as a combination product containing Dextromethorphan, Guaifenesin) ? Robitussin Cough and Chest Congestion DM?? (as a combination product containing Dextromethorphan,Guaifenesin) ? Safetussin?? (as a combination product containing Dextromethorphan, Guaifenesin) ? Scot-Tussin Senior SF DMExp?? (as a combination product containing Dextromethorphan, Guaifenesin) ? Smart Sense Mucus Relief Cough?? (as a combination product containing Dextromethorphan, Guaifenesin) ? Smart Sense tussin dm max?? (as a combination product containing Dextromethorphan, Guaifenesin) ? Sun Eros Mucus Relief Cough?? (as a combination product containing Dextromethorphan, Guaifenesin) ? Sun Eros Tussin DM?? (as a combination product containing Dextromethorphan, Guaifenesin) ? Sunmark Tussin DM?? (as a combination product containing Dextromethorphan, Guaifenesin) ? Topcare Mucus Relief?? (as a combination product containing Dextromethorphan, Guaifenesin) ? Topcare tussin dm?? (as a combination product containing Dextromethorphan, Guaifenesin) ? Topcare Tussin DM Max?? (as a combination product containing Dextromethorphan, Guaifenesin) ? Tussin Cough DM?? (as a combination product containing Dextromethorphan, Guaifenesin) ? Tussin DM?? (as a combination product containing Dextromethorphan, Guaifenesin) ? Up and Up Adult Cough Formula DM?? (as a combination product containing Dextromethorphan, Guaifenesin) ? Up and Up Childrens Mucus Relief and Cough?? (as a combination product containing Dextromethorphan, Guaifenesin) ? Vanacof?? (as a combination product containing Chlophedianol, Guaifenesin) ? Vicks?? DayQuil?? (as a combination product containing Dextromethorphan, Guaifenesin) ? Wal Tussin DM?? (as a combination product containing Dextromethorphan, Guaifenesin) ? Z-Cof 1?? (as a combination product containing dextromethorphan and Guaifenesin, Pseudoephedrine) ? Zicam?? (as a combination product containing acetaminophen and Dextromethorphan, Guaifenesin) ? Zodryl DEC?? (as a combination product containing pseudoephedrine and Codeine, Guaifenesin) ? Zyncof?? (as a combination product containing Dextromethorphan, Guaifenesin) also available generically This report on medications is for your information only, and is not considered individual patient advice. Because of the changing nature of drug information, please consult your physician or pharmacist about specific clinical use. The [employer] represents that the information provided hereunder was formulated with a reasonable standard of care, and in conformity with professional standards in the field. [employer] [place] makes no representations or warranties, express or implied, including, but not limited to, any implied warranty of merchantability and/or fitness for a particular purpose, with respect to such information and specifically disclaims all such warranties. Users are advised that decisions regarding drug therapy are complex medical decisions requiring the independent, informed decision of an appropriate health respiratory care program director, and the information is provided for informational purposes only. The entire monograph for a drug should be reviewed for a thorough understanding of the drug's actions, uses and side effects. The [employer] does not endorse or recommend the use of any drug.The information is not a substitute for medical care. AHFS?? Patient Medication Information?. ?? Copyright, 2023. [employer]??, [address], [address], [place], [place]. All Rights Reserved. Duplication for commercial use must be authorized by [facility]. Selected Revisions: November 24, 2021. AHFS?? Patient Medication Information?. ?? Copyright, 2024 * Astr[facility] [place], Didi Law, RN - 08/15/2025 6:09 PM EDT Images from the original note were not included. [id number] Atrial Fibrillation Atrial fibrillation is a condition in which the heart beats in an irregular pattern. It is the mostcommon abnormal heart rhythm. It is caused by a problem in the heart's electrical pathways within the muscle of the upper chambers of the heart (atria). It can be a sign of heart disease or other health problems that affect the heart. Heart palpitations are a common symptom of atrial fibrillation. This is the feeling that your heartis fluttering, or beating fast, hard, or irregular. When the heart beats too fast, it doesn't pump blood very well. This can cause other symptoms, such as anxiety, fatigue, shortness of breath, chestpain, dizziness, or fainting. Atrial fibrillation may come and go on its own, which is known as paroxysmal atrial fibrillation. It can last from a few hours to a couple of days. Or it may become persistent, lasting for weeks or months at a time. It can even become lifelong (permanent). Some symptoms of atrial fibrillation are hard to notice. For instance, some people develop subtle fatigue. Others notice a reduced ability to exercise. Some people have no symptoms. Atrial fibrillation is more common in older adults. It may be caused by heart disease or other conditions in the body that affect the heart. They include: ? Coronary artery disease (atherosclerosis), sometimes called blocked arteries. ? High blood pressure. ? Disease of the heart valves. ? An enlarged heart. ? Heart failure. Atrial fibrillation can also occur without heart disease because of: ? Overactive thyroid (hyperthyroid). ? Chronic lung disease (COPD, emphysema, or bronchitis). ? Heavy alcohol use. ? Heart stimulants, such as cocaine, amphetamines, diet pills, certain decongestant cold medicines,or nicotine. ? Infection. ? Blood clot in the lung (pulmonary embolus). ? Diabetes. ? Chronic kidney disease. ? Obesity. ? Obstructive sleep apnea. ? Extreme and continued athletic conditioning. ? Certain genetic diseases. Treating or removing these causes will help your treatment for atrial fibrillation. It will also make it less likely for it to come back. Atrial fibrillation can alternate back and forth with another abnormal rhythm called atrial flutter. Atrial flutter is a more regular heart rhythm. It is also linked to an increased risk for stroke. Correct treatment of these arrhythmias can lower your risk for stroke. Home care Follow these guidelines when caring for yourself at home: ? Go back to your usual activities as soon as you are feeling back to normal. ? If you smoke, stop smoking. Contact your doctor or a local stop-smoking program for help. ? Don't use stimulants like alcohol, cocaine, amphetamines, diet pills, certain decongestant cold medicines, or nicotine. ? If your doctor prescribed medicine to stop atrial fibrillation from coming back, take it exactly as directed. Some medicines must be taken every day, not just when you have symptoms. This will helpthem work as they should. ? If you were prescribed a blood-thinning medicine, take it exactly as prescribed. One of these medicines, called warfarin, needs your blood to be tested regularly as advised by your doctor. This will make sure you are getting the dose that is right for you. It also lowers your risk for side effects. You may have been prescribed other blood-thinning medicines that don't need regular testing. Follow-up care Follow up with your doctor as advised. When to get medical care Contact your doctor ifyou have: ? Swelling in the legs that gets worse. ? Unexpected weight gain. Call 911 Calling 911 is the fastest and safest way to get the emergency department. The paramedics can also start treatment on the way to the hospital, if needed. Call 911 or get medical help right away if you have: ? Weakness of an arm, leg, or one side of the face. ? Chest pain. ? Shortness of breath, or feeling that you can't get enough air. ? Feeling lightheaded, faint, or dizzy. ? A heartbeat that is very fast, slow, or irregular compared with your regular heartbeat. ? Uncontrolled bleeding. ? Trouble with speech or vision. ? Extreme drowsiness, confusion, dizziness, or fainting. Last Reviewed Date: 2025 00:00:00 ?? [id number] [employer]. All rights reserved. This information is not intended as a substitute for professional medical care. Always follow your healthcare professional's instructions. * Astrid [facility] [place], Didi Law, RN - 08/15/2025 6:08 PM EDT Images from the original note were not included. [id number] Pantoprazole WHY is this medicine prescribed? Pantoprazole is used to treat damage from gastroesophageal reflux disease (GERD), a condition in which backward flow of acid from the stomach causes heartburn and possible injury of the esophagus (the tube between the throat and stomach) in adults and children 5 years of age and older. Pantoprazoleis used to allow the esophagus to heal and prevent further damage to the esophagus in adults with GERD. It is also used to treat conditions where the stomach produces too much acid, such as Yudith-Jimenez syndrome in adults. Pantoprazole is in a class of medications called proton-pump inhibitors. It works by decreasing the amount of acid made in the stomach. HOW should this medicine be used? Pantoprazole comes as a delayed-release (releases the medication in the intestine to prevent break-down of the medication by stomach acids) tablet and as delayed-release granules to take by mouth. The packets of delayed-release granules must be mixed with applesauce or apple juice and taken by mouth or given through a feeding tube. For the treatment and maintenance of GERD, pantoprazole is usually taken once a day. For the treatment of conditions where the stomach produces too much acid, pantoprazole is usually taken twice a day. The delayed-release tablets are usually taken with or without food, and the granules are usually taken 30 minutes before a meal. Take pantoprazole at around the same time(s) every day. Follow the directions on your prescription label carefully, and ask your doctor or pharmacist to explain any part you do not understand. Take pantoprazole exactly as directed. Donot take more or less of it or take it more often or for a longer period of time than prescribed byyour doctor. Swallow the tablets whole; do not split, chew, or crush them. If your doctor has prescribed the 40 mg tablet and it is too big for you to swallow, ask your doctor to prescribe two of the 20 mg tablets instead. To take the granules, open the packet and either sprinkle the granules onto one teaspoonful of applesauce or into a cup containing one teaspoonful of apple juice. Do not mix the granules with water, other liquids, or other foods. Use all of the granules in the packet; do not divide the granules into smaller doses. If you sprinkle the granules into apple juice, stir the mixture for 5 seconds. Swallow the mixture of applesauce or apple juice and medication right away (within 10 minutes) without chewing or crushing the granules. If you sprinkled the granules on applesauce, take several sips of water to wash the granules down to your stomach. If you sprinkled the granules into apple juice, rinse the cup once or twice with apple juice and drink the apple juice right away to be sure you swallowany leftover granules. Pantoprazole granules mixed with apple juice may be given through a feeding tube. If you have a feeding tube, ask your doctor how you should take pantoprazole. Continue to take pantoprazole even if you feel well. Do not stop taking pantoprazole without talking to your doctor. If your condition does not improve or gets worse, call your doctor. Ask your pharmacist or doctor for a copy of the automotive finance manager's information for the patient. Are there OTHER USES for this medicine? This medication may be prescribed for other uses; ask your doctor or pharmacist for more information. What SPECIAL PRECAUTIONS should I follow? Before taking pantoprazole, ? tell your doctor and pharmacist if you are allergic to pantoprazole, dexlansoprazole (Dexilant), esomeprazole (Nexium, in Vimovo), lansoprazole (Prevacid), omeprazole (Prilosec, in Talicia, in Zegerid), rabeprazole (AcipHex), any other medications, or any of the ingredients in pantoprazole tablets or granules. Ask your pharmacist for a list of the ingredients. ? Some medications should not be taken with pantoprazole. Other medications may cause dosing changes or extra monitoring when taken with pantoprazole. Make sure you have discussed any medications youare currently taking or plan to take before starting pantoprazole with your doctor and pharmacist. Before starting, stopping, or changing any medications while taking pantoprazole, please get the advice of your doctor or pharmacist. ? The following nonprescription or herbal products may interact with pantoprazole: iron supplements. Be sure to let your doctor and pharmacist know that you are taking these medications before you start taking pantoprazole. Do not start any of these medications while taking pantoprazole without discussing with your healthcare provider. ? tell your doctor if you have or have ever had a low level of magnesium, calcium, or potassium in your blood; hypoparathyroidism (condition in which the body does not produce enough parathyroid hormone [PTH; a natural substance needed to control the amount of calcium in the blood]); low levels of vitamin B12 in your body; osteoporosis (a condition in which the bones become thin and weak and break easily); or an autoimmune disease (condition in which the body attacks its own organs causing swelling and loss of function) such as systemic lupus erythematosus. ? tell your doctor if you are , plan to become , or are . If you become while taking pantoprazole, call your doctor. ? talk to your doctor about the risks and benefits of taking pantoprazole if you are 70 years of age or older. Do not take this medication for a longer period of time than recommended by your doctor. What SPECIAL DIETARY instructions should I follow? Unless your doctor tells you otherwise, continue your normal diet. What should I do IF I FORGET to take a dose? Take the missed dose as soon as you remember it. However, if it is almost time for your next dose, skip the missed dose and continue your regular dosing schedule. Do not take a double dose to make upfor a missed dose. What SIDE EFFECTS can this medicine cause? Pantoprazole may cause side effects. Tell your doctor if any of these symptoms are severe or do notgo away: ? headache ? nausea ? vomiting ? gas ? joint pain ? diarrhea ? dizziness ? in men, difficulty achieving or maintaining an erection Some side effects may be serious. If you experience any of the following symptoms, call your doctorimmediately, or get emergency medical help: ? blistering, peeling, or bleeding skin; sores on the lips, nose, mouth, or genitals; swollen glands; shortness of breath; fever; or flu-like symptoms ? rash hives; itching; swelling of the eyes, face, lips, mouth, throat, or tongue; difficulty breathing or swallowing; or hoarseness ? irregular, fast, or pounding heartbeat muscle spasms; uncontrollable shaking of a part of the body; excessive tiredness; lightheadedness; dizziness; or seizures ? severe diarrhea with watery stools, stomach pain, or fever that does not go away ? new or worsening joint pain; rash on cheeks or arms that is sensitive to sunlight ? increased or decreased urination, blood in urine, fatigue, nausea, loss of appetite, fever, rash,or joint pain Pantoprazole may cause other side effects. Call your doctor if you have any unusual problems while taking this medication. People who take proton pump inhibitors such as pantoprazole may be more likely to fracture their wrists, hips, or spine than people who do not take one of these medications. People who take proton pump inhibitors may also develop fundic gland polyps (a type of growth on the stomach lining). These risks are highest in people who take high doses of one of these medications or take them for one yearor longer. Talk to your doctor about the risks of taking pantoprazole. If you experience a serious side effect, you or your doctor may send a report to the Food and Drug Administration's (FDA) MedWatch Adverse Event Reporting program online (https://www.fda.gov/Safety/MedWatch) or by phone ( ). What should I know about STORAGE and DISPOSAL of this medication? Keep this medication in the container it came in, tightly closed, and out of reach of children. Store it at room temperature and away from excess heat and moisture (not in the bathroom). Keep all medication out of sight and reach of children as many containers are not child-resistant. Always lock safety caps. Place the medication in a safe location - one that is up and away and out of their sight and reach. https://www.upandaway.org Dispose of unneeded medications in a way so that pets, children, and other people cannot take them.Do not flush this medication down the toilet. Use a medicine take-back program. Talk to your pharmacist about take-back programs in your community. Visit the FDA's Safe Disposal of Medicines website h ttps://goo.gl/c4Rm4p for more information. What should I do in case of OVERDOSE? In case of overdose, call the poison control helpline at . Information is also available online at https://www.poisonhelp.org/help. If the victim has collapsed, had a seizure, has trouble breathing, or can't be awakened, immediately call emergency services at 911. What OTHER INFORMATION should I know? Keep all appointments with your doctor and the laboratory. Your doctor may order certain laboratorytests before and during your treatmen. Before having any laboratory test, tell your doctor and the laboratory personnel that you are taking pantoprazole. Do not let anyone else take your medication. Ask your pharmacist any questions you have about refilling your prescription. Keep a written list of all of the prescription and nonprescription ([id number]) medicines, vitamins, minerals, and dietary supplements you are taking. Bring this list with you each time you visit a doctor or if you are admitted to the hospital. You should carry the list with you in case of dwight rgencies. Brand Name(s): ? Protonix?? also available generically This report on medications is for your information only, and is not considered individual patient advice. Because of the changing nature of drug information, please consult your physician or pharmacist about specific clinical use. [employer] [place] represents that the information provided hereunder was formulated with a reasonable standard of care, and in conformity with professional standards in the field. [employer] [place] [employer] makes no representations or warranties, express or implied, including, but not limited to, any implied warranty of merchantability and/or fitness for a particular purpose, with respect to such information and specifically disclaims all such warranties. Users are advised that decisions regarding drug therapy are complex medical decisions requiring the independent, informed decision of an appropriate health respiratory care program director, and the information is provided for informational purposes only. The entire monograph for a drug should be reviewed for a thorough understanding of the drug's actions, uses and side effects. [employer] [place] does not endorse or recommend the use of any drug.The information is not a substitute for medical care. AHFS?? Patient Medication Information?. ?? Copyright, 2023. [employer]??, [address], [address], [place], [place]. All Rights Reserved. Duplication for commercial use must be authorized by [facility]. Selected Revisions: September 24, 2023. AHFS?? Patient Medication Information?. ?? Copyright, 2024 * Astrid [facility] - Didi Goodson RN - 08/15/2025 6:08 PM EDT Images from the original note were not included. [id number] Apixaban IMPORTANT WARNING: If you have atrial fibrillation (a condition in which the heart beats irregularly, increasing the chance of clots forming in the body, and possibly causing strokes) and are taking apixaban to help prevent strokes or serious blood clots, you are at a higher risk of having a stroke after you stop taking this medication. Do not stop taking apixaban without talking to your doctor. Continue to take apixaban even if you feel well. Be sure to refill your prescription before you run out of medication so that you will not miss any doses of apixaban. If you need to stop taking apixaban, your doctor mayprescribe another anticoagulant ('blood thinner') to help prevent a blood clot from forming and causing you to have a stroke. If you have epidural or spinal anesthesia or a spinal puncture while taking a 'blood thinner' such as apixaban, you are at risk of having a blood clot form in or around your spine that could cause you to become paralyzed. Tell your doctor if you have an epidural catheter that is left in your body or have or have ever had repeated epidural or spinal punctures, spinal deformity, or spinal surgery. Tell your doctor and pharmacist if you are taking any of the following: anagrelide (Agrylin??); aspirin and other nonsteroidal anti-inflammatory drugs (NSAIDs) such as ibuprofen (Advil??, Motrin??, others), indomethacin (Indocin??, Tivorbex??), ketoprofen, and naproxen (Aleve??, Anaprox??, others); cilostazol (Pletal??); clopidogrel (Plavix??); dipyridamole (Persantine??); eptifibatide (Integrilin??); heparin; prasugrel (Effient??); ticagrelor (Brilinta??); ticlopidine; tirofiban (Aggrastat??), and warfarin (Coumadin??, Jantoven??). If you experience any of the following symptoms, call your doctor immediately: muscle weakness (especially in your legs and feet), numbness or tingling (especially in your legs), or loss of control of your bowels or bladder. Your doctor or pharmacist will give you the automotive finance manager's patient information sheet (Medication Guide) when you begin treatment with apixaban and each time you refill your prescription. Read the information carefully and ask your doctor or pharmacist if you have any questions. You can also visit the Food and Drug Administration (FDA) website (https://www.fda.gov/Drugs/DrugSafety/wjm706630.htm) or the automotive finance manager's website to obtain the Medication Guide. Talk to your doctor about the risks of taking apixaban. WHY is this medicine prescribed? Apixaban is used to help prevent strokes or blood clots in people who have atrial fibrillation (a condition in which the heart beats irregularly, increasing the chance of clots forming in the body and possibly causing strokes) that is not caused by heart valve disease. Apixaban is also used to prevent deep vein thrombosis (DVT; a blood clot, usually in the leg) and pulmonary embolism (PE; a bloodclot in the lung) in people who are having hip replacement or knee replacement surgery. Apixaban isalso used to treat DVT and PE and may be continued to prevent DVT and PE from happening again afterthe initial treatment is completed. Apixaban is in a class of medications called factor Xa inhibitors. It works by blocking the action of a certain natural substance that helps blood clots to form. HOW should this medicine be used? Apixaban comes as a tablet to take by mouth. It is usually taken with or without food twice a day. When apixaban is taken to prevent DVT and PE after hip or knee replacement surgery, the first dose should be taken at least 12 to 24 hours after surgery. Apixaban is usually taken for 35 days after a hip replacement surgery and for 12 days after knee replacement surgery. Take apixaban at around the same times every day. Follow the directions on your prescription label carefully, and ask your doctor or pharmacist to explain any part you do not understand. Take apixaban exactly as directed. Do nottake more or less of it or take it more often than prescribed by your doctor. If you are unable to swallow the tablets, you can crush them and mix with water, apple juice, or applesauce. Swallow the mixture right after you prepare it. Apixaban can also be given in certain types of feeding tubes. Ask your doctor if you should take this medication in your feeding tube. Follow your doctor's directions carefully. Continue to take apixaban even if you feel well. Do not stop taking apixaban without talking to your doctor. If you stop taking apixaban, your risk of a blood clot may increase. Are there OTHER USES for this medicine? This medication may be prescribed for other uses; ask your doctor or pharmacist for more information. What SPECIAL PRECAUTIONS should I follow? Before taking apixaban, ? tell your doctor and pharmacist if you are allergic to apixaban, any other medications, or any ofthe ingredients in apixaban tablets. Ask your pharmacist or check the Medication Guide for a list of the ingredients. ? Tell your doctor and pharmacist what prescription and nonprescription medications, vitamins, nutritional supplements, and herbal products you are taking or plan to take while taking apixaban. Your doctor may need to change the doses of your medications or monitor you carefully for side effects. ? The following nonprescription or herbal products may interact with apixaban: Ruhenstroth's wort; aspirin; NSAIDs (such as ibuprofen [Advil??, Motrin??] and naproxen [Aleve??, Naprosyn??]). Be sure to let your doctor and pharmacist know that you are taking these medications before you start taking apixaban. Do not start any of these medications while taking apixaban without discussing with your healthcare provider. ? you should know that apixaban may interact with certain medications that may be used to treat youif you have a stroke or other medical emergency. In case of an emergency, you or a family member should tell the doctor or emergency room staff who treat you that you are taking apixaban. ? tell your doctor if you have an artificial heart valve or if you have heavy bleeding anywhere in your body that cannot be stopped. Your doctor will probably tell you not to take apixaban. ? tell your doctor if you have or have ever had any type of bleeding problem, antiphospholipid syndrome (APS; a condition that causes blood clots), or kidney or liver disease. ? tell your doctor if you are , plan to become , or are . If you become while taking apixaban, call your doctor. ? if you are having surgery, including dental surgery, tell the doctor or dentist that you are taking apixaban. Your doctor may tell you to stop taking apixaban before the surgery or procedure. If you need to stop taking apixaban because you are having surgery, your doctor may prescribe a differentmedication to prevent blood clots during this time. Your doctor will tell you when you should starttaking apixaban again after your surgery. Follow these directions carefully. ? Call your doctor right away if you fall or injure yourself, especially if you hit your head. Yourdoctor may need to check you. What SPECIAL DIETARY instructions should I follow? Unless your doctor tells you otherwise, continue your normal diet. What should I do IF I FORGET to take a dose? Take the missed dose as soon as you remember it. However, if it is almost time for the next dose, skip the missed dose and continue your regular dosing schedule. Do not take a double dose to make up for a missed one. What SIDE EFFECTS can this medicine cause? Some side effects can be serious. If you experience any of these symptoms, call your doctor immediately or get emergency medical treatment: ? bleeding gums ? nosebleeds ? heavy vaginal bleeding ? red, pink, or brown urine ? red or black, tarry stools ? coughing up or vomiting blood or material that looks like coffee grounds ? swelling or joint pain ? headache ? rash ? chest pain or tightness ? swelling of the face or tongue ? trouble breathing ? wheezing ? feeling dizzy or faint Apixaban prevents blood from clotting normally, so it may take longer than usual for you to stop bleeding if you are cut or injured. This medication may also cause you to bruise or bleed more easily.Call your doctor right away if bleeding or bruising is unusual, severe, or cannot be controlled. Apixaban may cause other side effects. Call your doctor if you have any unusual problems while taking this medication. If you experience a serious side effect, you or your doctor may send a report to the Food and Drug Administration's (FDA) MedWatch Adverse Event Reporting program online (https://www.fda.gov/Safety/MedWatch) or by phone ( ). What should I know about STORAGE and DISPOSAL of this medication? Keep this medication in the container it came in, tightly closed, and out of reach of children. Store it at room temperature and away from light, excess heat and moisture (not in the bathroom). Dispose of unneeded medications in a way so that pets, children, and other people cannot take them.Do not flush this medication down the toilet. Use a medicine take-back program. Talk to your pharmacist about take-back programs in your community. Visit the FDA's Safe Disposal of Medicines website h ttps://goo.gl/c4Rm4p for more information. Keep all medication out of sight and reach of children as many containers are not child-resistant. Always lock safety caps. Place the medication in a safe location - one that is up and away and out of their sight and reach. https://www.upandaway.org What should I do in case of OVERDOSE? In case of overdose, call the poison control helpline at . Information is also available online at https://www.poisonhelp.org/help. If the victim has collapsed, had a seizure, has trouble breathing, or can't be awakened, immediately call emergency services at 510. Symptoms of overdose may include the following: ? unusual bleeding or bruising ? red, brown, or pink urine ? red or black, tarry stools ? coughing up or vomiting blood or material that looks like coffee grounds What OTHER INFORMATION should I know? Keep all appointments with your doctor. Do not let anyone else take your medication. Ask your pharmacist any questions you have about refilling your prescription. Keep a written list of all of the prescription and nonprescription (uiub-swc-[id number]) medicines, vitamins, minerals, and dietary supplements you are taking. Bring this list with you each time you visit a doctor or if you are admitted to the hospital. You should carry the list with you in case of dwight rgencies. Brand Name(s): ? Eliquis?? This report on medications is for your information only, and is not considered individual patient advice. Because of the changing nature of drug information, please consult your physician or pharmacist about specific clinical use. The [employer] represents that the information provided hereunder was formulated with a reasonable standard of care, and in conformity with professional standards in the field. The [employer] makes no representations or warranties, express or implied, including, but not limited to, any implied warranty of merchantability and/or fitness for a particular purpose, with respect to such information and specifically disclaims all such warranties. Users are advised that decisions regarding drug therapy are complex medical decisions requiring the independent, informed decision of an appropriate health respiratory care program director, and the information is provided for informational purposes only. The entire monograph for a drug should be reviewed for a thorough understanding of the drug's actions, uses and side effects. The [employer] does not endorse or recommend the use of any drug.The information is not a substitute for medical care. AHFS?? Patient Medication Information?. ?? Copyright, 2023. The [employer]??, [address], [address], [place], [place]. All Rights Reserved. Duplication for commercial use must be authorized by [facility]. Selected Revisions: December 25, 2024. AHFS?? Patient Medication Information?. ?? Copyright, 2024 * Discharge Summary - Ana Rosa Fields MD - 08/15/2025 5:22 PM EDT Hospitalization Admit Date/Time: 08/13/2025 12:20 PM Admitting Attending: Karlos Castañeda Discharge Date: 08/15/2025 Discharge Attending Physician: Ana Rosa Fields MD PCP name and Address: Darius Ken MD [address] [facility] / [place] [address] Referring provider name and address: Aryan Gentile DO [address] [place] [address] Chief Concern, Brief History of Present Illness, and Hospital Course 69M w/ recently diagnosed esophageal adenocarcinoma s/p cycle 1 of chemo (Fluorouracil + Leucovorin+ OXALIplatin + DOCEtaxel Every 14 Days 08/03/25), BPH, hyperlipidemia, presenting with 1 week of epigastric pain, vomiting and diarrhea. Found to have new onset paroxysmal atrial fibrillation, mild elevated troponin 2/2 myocardial injury. He was commenced on therapeutic anticoagulation and seen by Cardiology. Infectious work up negative. Patient's pain control improved and tolerated diet. Discharged on 08/15. Acute Diarrhea and nausea, resolved C Diff colonizer Notes recent constipation and took otc bowel regimen, developed diarrhea. CT at OSH w pancolitis. Diarrhea possibly 2/2 overflow diarrhea, 2/2 recent chemotherapy or infectious. - GI pathogen panel negative, C Diff initial positive but toxin is negative - Infectious work up including peripheral and port cultures obtained, no growth - Continue prn zofran and compazine - Diet advanced Epigastric pain possibly 2/2 esophageal spasm Gastroesophageal adenocarcinoma On neoadjuvant Fluorouracil + Leucovorin + OXALIplatin + DOCEtaxel Every 14 Days C1 08/03/25, due next cycle 08/18. Normal lipase on admission, OSH CTAP w/o evidence of pancreatic inflammation or free air.- Discussed w Cardiology 08/14, no contraindication to continuing current chemo - Continue PPI on discharge - Pain control: oxycodone 5mg Q6 prn, acetaminophen 1000mg Q6 prn - Oncology consulted, plan for chemo as scheduled Acute myocardial injury 2/2 acute illness Mildly elevated troponins on admission, negative delta, Ecg w non-specific changes. Low suspicion of ACS. Recent echo 07/29 w preserved LVEF. - Seen by Cardiology on admission, likely pain is non-cardiac Paroxysmal atrial fibrillation, new diagnosis Now in sinus, CHADSVASC 2 - Continue telemetry monitoring - Start eliquis for thromboembolic prevention - Ordered 14 day holter monitor on discharge to evaluate afib burden, follow up in resident assistant cna clinic Mild hyponatremia, improved Na 124 at OSH, improved w 2 IV fluids. Likely 2/2 dehydration and poor po intake. Na [phone] Chronic medical conditions: BPH - alfuzosin HTN - PCP recently took him off bisoprolol HLD - resume home rosuvastatin 10mg at bedtime CKD3a - creatinine currently at baseline after IV fluid resuscitation at OSH (1.6 --> 1.41) Surgeries and Procedures Medication List .. acetaminophen 500 MG tablet Commonly known as: Tylenol Take 1 tablet by mouth every 6 hours for 14 days. alfuzosin 10 MG 24 hr tablet Commonly known as: Uroxatral Take 1 tablet by mouth daily. apixaban 5 MG tablet Commonly known as: Eliquis Take 1 tablet by mouth 2 times a day. dexamethasone 4 MG tablet Commonly known as: Decadron Take 2 tablets by mouth 2 times a day. Start day prior to docetaxel and continue for a total of 3 days. famotidine 20 MG tablet Commonly known as: Pepcid Take 1 tablet by mouth daily. guaiFENesin 100 MG/5ML solution Commonly known as: Robitussin Take 10 mL by mouth every 4 hours as needed for cough for up to 3 days. multivitamin capsule Take 1 capsule by mouth daily. ondansetron 8 MG tablet Commonly known as: Zofran Take 1 tablet by mouth 2 times a day. Take for two days starting the day after chemotherapy and then take PRN oxyCODONE-acetaminophen 5-325 MG tablet Commonly known as: Percocet Take 1 tablet by mouth every 6 hours as needed for severe pain. pantoprazole 40 MG EC tablet Commonly known as: Protonix Take 1 tablet by mouth daily. Do not crush, chew, or split. prochlorperazine 10 MG tablet Commonly known as: Compazine Take 1 tablet by mouth every 6 hours as needed for nausea or vomiting. rosuvastatin 10 MG tablet Commonly known as: Crestor Take 1 tablet by mouth daily. Where to Get Your Medications These medications were sent to [facility] [place], [place] - 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 KOREY Ramos 08/18/2025 11:00 AM Nini Eason MD [facility] 08/18/2025 12:00 PM [facility] 08/20/2025 2:00 PM [facility] 09/01/2025 9:15 AM MULTI-D DIRECTOR HOUSEKEEPING WEASAND TRIMMER KOREY Ramos 09/01/2025 9:30 AM Aristides Reina MD [facility] 09/01/2025 11:00 AM [facility] 2 INFUSION TREATMENT [id number] [facility] 09/03/2025 10:30 AM [facility] 2 INFUSION TREATMENT [id number] [facility] 09/15/2025 9:30 AM [facility] 2 INFUSION TREATMENT [id number] [facility] 09/17/2025 9:00 AM [facility] 2 INFUSION TREATMENT [id number] [facility] 10/05/2025 8:00 AM [facility] PET INJ PETCHWHTFIORELLA [facility] 10/05/2025 9:00 AM [facility] PET PETCHWHTNY [facility] 10/05/2025 11:15 AM Kim Machado MD [facility] 01/13/2026 12:00 PM Eros Mejia MD [facility] [place] Test Results Pending At Discharge Pending Labs Order Current Status Calprotectin, Stool In process Blood Culture (Aerobic/Anaerobet Set) Preliminary result Blood Culture (Aerobic/Anaerobet Set) Preliminary result Discharge Disposition/Condition Disposition: Home Condition: Stable (s/sx potential problems absent or manageable) I spent >30 minutes of patient care and instruction time in preparation for this discharge. * Discharge Instr - Other Orders - Marcia Reynolds RN - 08/15/2025 5:10 PM EDT If you need to contact your doctors after hours, please call [phone] and ask for the doctor herlinda [facility]. * Hospital Course - Ana Rosa Fields MD - 08/15/2025 4:45 PM EDT 69M w/ recently diagnosed esophageal adenocarcinoma s/p cycle 1 of chemo (Fluorouracil + Leucovorin+ OXALIplatin + DOCEtaxel Every 14 Days 08/03/25), BPH, hyperlipidemia, presenting with 1 week of epigastric pain, vomiting and diarrhea. Found to have new onset paroxysmal atrial fibrillation, mild elevated troponin 2/2 myocardial injury. He was commenced on therapeutic anticoagulation and seen by Cardiology. Infectious work up negative. Patient's pain control improved and corey to tolerate diet. Discharged on Acute Diarrhea and nausea, improved C Diff colonizer Notes recent constipation and took otc bowel regimen, developed diarrhea. CT at OSH w pancolitis. Diarrhea possibly 2/2 overflow diarrhea, 2/2 recent chemotherapy or infectious. - GI pathogen panel negative, C Diff initial positive but toxin is negative - Infectious work up including peripheral and port cultures obtained, no growth - Continue prn zofran and compazine - Advance diet from full liquid to regular diet GI soft today Epigastric pain possibly 2/2 esophageal spasm Gastroesophageal adenocarcinoma On neoadjuvant Fluorouracil + Leucovorin + OXALIplatin + DOCEtaxel Every 14 Days C1 08/03/25, due next cycle 08/18. Normal lipase on admission, OSH CTAP w/o evidence of pancreatic inflammation or free air.- Discussed w Cardiology 08/14, no contraindication to continuing current chemo - Continue isosorbide dinitrite for spasm for now, continue PPI - Pain control: oxycodone 5mg increase to Q4prn, acetaminophen 1000mg Q6 prn, DC IV hydromorphone 0.5m Q4 prn (last dose 08/14 10pm) - Oncology consulted, plan for chemo as scheduled Acute myocardial injury 2/2 acute illness Mildly elevated troponins on admission, negative delta, Ecg w non-specific changes. Low suspicion of ACS. Recent echo 07/29 w preserved LVEF. - Seen by Cardiology on admission, likely pain is non-cardiac Paroxysmal atrial fibrillation, new diagnosis Now in sinus, CHADSVASC 2 - Continue telemetry monitoring - Start eliquis for thromboembolic prevention - Order 14 day holter monitor on discharge to evaluate afib burden, follow up in [facility]ology [facility] Mild hyponatremia Na 124 at OSH, improved w 2 IV fluids. Likely 2/2 dehydration and poor po intake. Na [phone] - Continue to monitor, repeat labs in am Chronic medical conditions: BPH - reports he has not taken his alfuzosin the past few days. Will monitor for signs of urinary retention, alfuzosin not on formulary, will start tamsulosin from am HTN - PCP recently took him off bisoprolol HLD - resume home rosuvastatin 10mg at bedtime CKD3a - creatinine currently at baseline after IV fluid resuscitation at OSH (1.6 --> 1.41) * Progress Notes - Ana Rosa Fields MD - 08/15/2025 4:34 PM EDT [facility] [id number] Justin Best 1955 Subjective Patient seen and examined at the bedside this morning, at bedside. He reported feeling ok, continues to have low appetite and poor po intake. Pain is better controlled, last received IV [id number]. Last BM was yesterday Review of Systems As above Objective Objective Last Recorded Vitals Blood pressure 103/58, pulse 70, temperature 36.5 ??C (97.7 ??F), temperature source Oral, resp. rate 16, height 1.829 m (6'), weight 88.8 kg (195 lb 12.3 oz), SpO2 100%. Physical Exam CONSTITUTIONAL: in no distress EYES: conjunctivae/corneas clear. EOM's intact. RESPIRATORY: Vesicular breath sounds B/L. No wheezing/rhonchi/crackles. CARDIOVASCULAR: PMI normal. S1 and S2 heard. No extremity edema GASTROINTESTINAL: soft, epigastric tender, non-distended, BS heard. MUSCULOSKELETAL: no gross limb abnormalities SKIN: warm NEUROLOGICAL: alert, oriented x 3, normal speech Relevant Results Labs in last 18 hours CBC WBC 11.39 (H) Hb 9.7 (L) Plt 168 Hct 28.7 (L) ANC 9.65 (H) INR ??, PTT ??, Anti-Xa ?? BMP Na 131 (L) Cl 99 BUN 30 (H) Glu 95 K 3.5 (L) Co2 20 (L) Cr 1.36 (H) Ca 7.7 (L) iCa ?? Mg 2.1, Phos ?? Lactate ?? LFT AST 20 AlkPhos 54 T Prot 5.2 (L) ALK 18 Bili 0.5 Alb ?? D.Bili ?? IMAGING (past 24h): Assessment/Plan Assessment & Plan Principal Problem: Epigastric pain 69M w/ recently diagnosed esophageal adenocarcinoma s/p cycle 1 of chemo (Fluorouracil + Leucovorin+ OXALIplatin + DOCEtaxel Every 14 Days 08/03/25), BPH, hyperlipidemia, presenting with 1 week of epigastric pain, vomiting and diarrhea. Found to have new onset paroxysmal atrial fibrillation, mild elevated troponin 2/2 myocardial injury. Infectious work up negative thus far Acute Diarrhea and nausea, resolved C Diff colonizer Notes recent constipation and took otc bowel regimen, developed diarrhea. CT at OSH w pancolitis. Diarrhea possibly 2/2 overflow diarrhea, 2/2 recent chemotherapy or infectious. - GI pathogen panel negative, C Diff initial positive but toxin is negative - DC oral vanc as toxin negative - Infectious work up including peripheral and port cultures obtained, no growth day - Continue prn zofran and compazine - Advanced diet from full liquid to regular diet GI soft today Epigastric pain possibly 2/2 esophageal spasm Gastroesophageal adenocarcinoma On neoadjuvant Fluorouracil + Leucovorin + OXALIplatin + DOCEtaxel Every 14 Days C1 08/03/25, due next cycle 08/18. Normal lipase on admission, OSH CTAP w/o evidence of pancreatic inflammation or free air.- Discussed w Cardiology 08/14, no contraindication to continuing current chemo - continue PPI - Pain control: oxycodone 5mg increase to Q4prn, acetaminophen 1000mg Q6 prn, DC IV hydromorphone 0.5m Q4 prn (last dose 08/14 10pm) - Oncology consulted, plan for chemo as scheduled Acute myocardial injury 2/2 acute illness Mildly elevated troponins on admission, negative delta, Ecg w non-specific changes. Low suspicion of ACS. Recent echo 07/29 w preserved LVEF. - Seen by Cardiology on admission, likely pain is non-cardiac Paroxysmal atrial fibrillation, new diagnosis Now in sinus, CHADSVASC 2 - Continue telemetry monitoring - Start eliquis for thromboembolic prevention - Order 14 day holter monitor on discharge to evaluate afib burden, follow up in cardiology fellowsclinic Mild hyponatremia Na 124 at OSH, improved w 2 IV fluids. Likely 2/2 dehydration and poor po intake. Na [phone] Chronic medical conditions: BPH - reports he has not taken his alfuzosin the past few days. Will monitor for signs of urinary retention, alfuzosin not on formulary, will start tamsulosin from am HTN - PCP recently took him off bisoprolol HLD - resume home rosuvastatin 10mg at bedtime CKD3a - creatinine currently at baseline after IV fluid resuscitation at OSH (1.6 --> 1.41) DVT prophylaxis: eliquis GI prophylaxis: PPI Code status: Full Code Disposition: Addendum: will discharge home today, outpatient follow up as scheduled * Progress Notes - Kristen Toro RN - 08/15/2025 12:47 PM EDT Case Management Adult Initial Progress Note Justin Best 69 y.o. male CSN: [id number] Admission: 08/13/2025 12:20 PM Primary Problem: Epigastric pain Bank Manager reviewed chart and spoke with patient to complete this Initial Case Management Assessment. PCP: Darius Ken MD Emergency Contact: Extended Emergency Contact Information Primary Emergency Contact: EstephaniaKristen Address: [address] Mobile Relation: Spouse Preferred language: Thai Edge Burnisher needed? No Secondary Emergency Contact: Ricardo Best Mobile Relation: Son Preferred language: Thai Edge Burnisher needed? No Insurance: Primary Visit Coverage Payer Plan Sponsor Code Group Number Group Name UHC MEDICARE UHC MEDICARE REPLACEMENT [id number] Primary Visit Coverage Subscriber Subscriber ID Subscriber Name Subscriber SSN Subscriber Address [id number] Justin Best P [id number] [address] [place] [address] Patient information:admit to w/ recently diagnosed esophageal adenocarcinoma s/p cycle 1 of chemo (Fluorouracil + Leucovorin + OXALIplatin + DOCEtaxel Every 14 Days 08/03/25), BPH, hyperlipidemia, presenting with 1 week of epigastric pain, vomiting and diarrhea. Found to have new onset paroxysmalatrial fibrillation, mild elevated troponin 2/2 myocardial injury and possible C Diff infection. Confirmed home address and insurance information. Reports home assistance and transport. 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 Copy on chart. Have you reviewed your Advance Directive and is it valid for this stay?: Yes Advance Directive: Patient has advance directive, copy not in chart Information Provided on Healthcare Directives: Yes Pre-existing DNR/DNI Order: No Patient Requests Assistance: No Additional Comments: per team, not yet medically ready for discharge. Ongoing work up pending. Patient reports supportive family. No discharge needs anticipated at this time. Follow up: Aug 18 Assistant Reading Teacher Visit Aug 8:20 AM (Arrive by 8:00 AM) Please bring any insurance information and a copayment if required by your insurance company. [facility] Multidisciplinary Oncology Clinic [address] [facility] [phone] Infusion Aug 10:30 AM Please bring any insurance information and a copayment if required by your insurance company. [facility] [address] [facility] [phone] Aug 20 Infusion Friday 2:00 PM (Arrive by 1:40 PM) Please bring any insurance information and a copayment if required by your insurance company. [facility] [address] [facility] [phone] Sep 01 Assistant Reading Teacher Visit Aug 9:15 AM (Arrive by 8:55 AM) Please bring any insurance information and a copayment if required by your insurance company. [facility] Multidisciplinary Oncology Clinic [address] [facility] [phone] Office Visit with Aristides Reina MD Aug 9:30 AM (Arrive by 9:10 AM) Please bring any insurance information and a copayment if required by your insurance company. [facility] Multidisciplinary Oncology Clinic [address] [facility] [phone] Infusion Aug 11:00 AM Please bring any insurance information and a copayment if required by your insurance company. [facility] Infusion Clinic [address] [facility] [phone] Sep 03 Infusion Friday 10:30 AM (Arrive by 10:10 AM) Please bring any insurance information and a copayment if required by your insurance company. [facility] Infusion Clinic [address] [facility] [phone] Sep 15 Infusion Sep 9:30 AM Please bring any insurance information and a copayment if required by your insurance company. [facility] Infusion Clinic [address] [facility] [phone] Sep 17 Infusion Friday 9:00 AM (Arrive by 8:40 AM) Please bring any insurance information and a copayment if required by your insurance company. [facility] Infusion Clinic [address] [facility] [id number] Oct 05 PET/CT FDG SKULL BASE TO MID THIGH INJECTION Friday 8:00 AM (Arrive by 7:30 AM) [facility] PET Scan [address] [facility] [id number] Arrive at: [facility] CT PET/CT FDG Skull Base To Mid Thigh Friday 9:00 AM (Arrive by 8:30 AM) Office Visit with Kim Marcano MD Friday 11:15 AM (Arrive by 10:55 AM) Please bring any insurance information and a copayment if required by your insurance company. [facility] [address] [facility] [phone] Jan 13 2026 Office Visit - Nephrology with Eros Mejia MD FridayJan 13, 2026 12:00 PM (Arrive by 11:40 AM) Please bring any insurance information and a copayment if required by your insurance company. [facility] [address] [place] [address] Arrive at: [facility] Kristen Toro, RN * Care Plan - Oksana Santos RN - 08/15/2025 1:34 AM EDT Problem: Adult Inpatient Plan of Care Goal: Plan of Care Review Outcome: Ongoing, Progressing Flowsheets (Taken 08/15/2025128) Progress: no change Plan of Care Reviewed With: patient Goal: Patient-Specific Goal (Individualized) Outcome: Ongoing, Progressing Flowsheets (Taken 08/14/20251999) Patient/Family-Specific Goals (Include Timeframe): patient will remain free from falls throughout the shift Individualized Care Needs: ongoing support Anxieties, Fears or Concerns: none stated Goal: Absence of Hospital-Acquired Illness or Injury Outcome: Ongoing, Progressing Intervention: Identify and Manage Fall Risk Flowsheets (Taken 08/15/2025128) Safety Promotion/Fall Prevention: activity supervised lighting adjusted safety round/check completed nonskid shoes/slippers when out of bed clutter-free environment maintained room organization consistent assistive device/personal items within reach Intervention: Prevent Skin Injury Flowsheets (Taken 08/15/2025128) Body Position: weight shifting Skin Protection: transparent dressing maintained protective footwear used Intervention: Prevent and Manage VTE (Venous Thromboembolism) Risk Flowsheets (Taken 08/15/2025128) VTE Prevention/Management: bilateral SCDs (sequential compression devices) off Intervention: Prevent Infection Flowsheets (Taken 08/15/2025128) Infection Prevention: personal protective equipment utilized cohorting utilized environmental surveillance performed rest/sleep promoted single patient room provided equipment surfaces disinfected hand hygiene promoted Goal: Optimal Comfort and Wellbeing Outcome: Ongoing, Progressing Intervention: Monitor Pain and Promote Comfort Flowsheets (Taken 08/15/2025128) Pain Management Interventions: rest pillow support provided care clustered relaxation techniques promoted quiet environment facilitated emotional support Intervention: Provide Person-Centered Care Flowsheets (Taken 08/15/2025128) Trust Relationship/Rapport: care explained questions encouraged reassurance provided choices provided emotional support provided empathic listening provided thoughts/feelings acknowledged questions answered Problem: Infection Goal: Absence of Infection Signs and Symptoms Outcome: Ongoing, Progressing Intervention: Prevent or Manage Infection Flowsheets (Taken 08/15/2025 0129) Infection Management: aseptic technique maintained Fever Reduction/Comfort Measures: fluid intake increased lightweight bedding lightweight clothing Isolation Precautions: contact * Care Plan - Willis Martin RN - 08/14/2025 4:47 PM EDT Problem: Adult Inpatient Plan of Care Goal: Absence of Hospital-Acquired Illness or Injury Outcome: Ongoing, Progressing Intervention: Prevent Infection Flowsheets (Taken 08/14/2025 164) Infection Prevention: environmental surveillance performed cohorting utilized hand hygiene promoted Goal: Optimal Comfort and Wellbeing Outcome: Ongoing, Progressing Intervention: Provide Person-Centered Care Flowsheets (Taken 08/14/2025 164) Trust Relationship/Rapport: care explained empathic listening provided questions answered emotional support provided choices provided Problem: Infection Goal: Absence of Infection Signs and Symptoms Outcome: Ongoing, Progressing Intervention: Prevent or Manage Infection Flowsheets (Taken 08/14/2025 164) Infection Management: aseptic technique maintained Fever Reduction/Comfort Measures: lightweight bedding * Progress Notes - Ana Rosa Fields MD - 08/14/2025 2:07 PM EDT [facility] Progress Note [id number] Justin Best 1955 Subjective Patient seen and examined at the bedside this morning, at bedside. Patient reported feeling slightly improved, he notes epigastric pain is better w pain control but notes feels like 'heaviness' and 'pressure'. Notes taking prescribed prn oral pain meds every 6 hours but feels not well controlled. He had loose BM this am, notes he had constipation last week and took suppository/over the counter regimens and developed diarrhea. Decreased oral intake and some nausea. He denied current chest pain, nausea vomiting fever chills. Review of Systems As above Objective Objective Last Recorded Vitals Blood pressure 124/67, pulse 79, temperature 36.8 ??C (98.2 ??F), temperature source Oral, resp. rate 17, height 1.829 m (6'), weight 90.5 kg (199 lb 8.3 oz), SpO2 94%. Physical Exam CONSTITUTIONAL: in no distress EYES: conjunctivae/corneas clear. EOM's intact. RESPIRATORY: Vesicular breath sounds B/L. No wheezing/rhonchi/crackles. CARDIOVASCULAR: PMI normal. S1 and S2 heard. No extremity edema GASTROINTESTINAL: soft, epigastric tender, non-distended, BS heard. MUSCULOSKELETAL: no gross limb abnormalities SKIN: warm NEUROLOGICAL: alert, oriented x 3, normal speech Relevant Results Labs in last 18 hours CBC WBC 10.82 (H) Hb 11.1 (L) Plt 199 Hct 32.1 (L) ANC 8.35 (H) INR ??, PTT ??, Anti-Xa ?? BMP Na 130 (L) Cl 100 BUN 34 (H) Glu 103 (H) K 4.6 Co2 21 (L) Cr 1.49 (H) Ca 8.5 (L) iCa ?? Mg 2.6 (H), Phos 2.6 Lactate ?? LFT AST ?? AlkPhos ?? T Prot ?? ALK ?? Bili ?? Alb ?? D.Bili ?? IMAGING (past 24h): Assessment/Plan Assessment & Plan Principal Problem: Epigastric pain 69M w/ recently diagnosed esophageal adenocarcinoma s/p cycle 1 of chemo (Fluorouracil + Leucovorin+ OXALIplatin + DOCEtaxel Every 14 Days 08/03/25), BPH, hyperlipidemia, presenting with 1 week of epigastric pain, vomiting and diarrhea. Found to have new onset paroxysmal atrial fibrillation, mild elevated troponin 2/2 myocardial injury and possible C Diff infection. Acute Diarrhea and nausea Possible C Diff infection Notes recent constipation and took otc bowel regimen, developed diarrhea. CT at OSH w pancolitis. Diarrhea possibly 2/2 overflow diarrhea, 2/2 recent chemotherapy or infectious - Infectious work up including peripheral and port cultures obtained - GI pathogen panel negative, C Diff initial positive but toxin is pending - Will start on oral vancomycin while awaiting toxin results, if negative will dc - Check lactate in am - Continue prn zofran and compazine - Advance diet to full liquid diet, will continue to advance as tolerated Epigastric pain possibly 2/2 esophageal spasm Gastroesophageal adenocarcinoma On neoadjuvant Fluorouracil + Leucovorin + OXALIplatin + DOCEtaxel Every 14 Days C1 08/03/25, due next cycle 08/18. Normal lipase on admission, OSH CTAP w/o evidence of pancreatic inflammation or free air. - Continue isosorbide dinitrite for spasm for now, continue PPI - Pain control: oxycodone 5mg increase to Q4prn, acetaminophen 1000mg Q6 prn, IV hydromorphone 0.5mQ4 prn IV - Oncology consulted, - Discussed w Cardiology this am, no contraindication to continuing current chemo Acute myocardial injury 2/2 acute illness Mildly elevated troponins on admission, negative delta, Ecg w non-specific changes. Low suspicion of ACS. Recent echo 07/29 w preserved LVEF. - Seen by Cardiology on admission, likely pain is non-cardiac Paroxysmal atrial fibrillation, new diagnosis Now in sinus, CHADSVASC 2 - Continue telemetry monitoring - Start eliquis for thromboembolic prevention - Order 14 day holter monitor on discharge to evaluate afib burden, [facility] Mild hyponatremia Na 124 at OSH, improved w 2 IV fluids. Likely 2/2 dehydration and poor po intake. Na [phone] - Continue to monitor in am labs Chronic medical conditions: BPH - reports he has not taken his alfuzosin the past few days. Will monitor for signs of urinary retention, alfuzosin not on formulary, will start tamsulosin from am HTN - PCP recently took him off bisoprolol HLD - resume home rosuvastatin 10mg at bedtime CKD3a - creatinine currently at baseline after IV fluid resuscitation at OSH (1.6 --> 1.41) DVT prophylaxis: eliquis GI prophylaxis: PPI Code status: Full Code * Consults - Alysa Prado MD - 08/14/2025 8:59 AM EDTAssociated Order(s): Inpatient consult to Oncology Inpatient consult to Oncology Consult performed by: Alysa Prado MD Consult ordered by: Ana Rosa Fields MD Reason for consult: abnormal EGK with recent chemotherapy Reason For Consult GE junction cancer on FLOT chemo Requesting Service: M11 Requested Date/Time: 08/14/2025 History of Present Illness The patient is a 64-year-old male with GEJ cancer on C1 FLOT and only received 5FU pump who presents for evaluation of diarrhea, nausea, and pain. He underwent chemotherapy (5FU infusion) on 08/03/2025, which was completed on 08/05/2025. Initially, he experienced constipation and a loss of appetite, leading to a reduced intake of solid food andreliance on liquids like Pedialyte and Boost. He attempted to manage the constipation with a suppository and stool softener, which resulted in watery stools. He reports no pain during bowel movements. His symptoms began with diarrhea, pain, and nausea. He felt well until the following Friday, but his condition deteriorated by Friday morning. He has been experiencing constant pain at the site of his tumor, which is more severe than his usual stomach issues. He has been taking pain medication every 6 hours, but it has not provided significant relief. He reports no heart-related issues but mentions occasional dizziness, which he does not believe is related to his pain episodes. He also reports a connection between his pain and nausea, but he has not vomited frequently. However, he did vomit yesterday, noting that the vomit was dark incolor. He describes his pain as cyclic and can tell when his pain medication is wearing off. He finds relief in drinking cool water. He has a history of high blood pressure, for which he was previously medicated, but he is no longer on this medication. Medical/Surgical/Social/Family History Past Medical History[1] Surgical History[2] Social History[3] Family History[4] Allergies Penicillins Medications Current Medications[5] Review of Systems Review of Systems All other systems reviewed and are negative. Vitals Temp: [36.4 ??C (97.5 ??F)-36.9 ??C (98.4 ??F)] 36.7 ??C (98 ??F) Heart Rate: [72-93] 81 Resp: [13-24] 18 BP: (88-129)/(61-82) 110/69 Physical Exam Cardiovascular: Rate and Rhythm: Normal rate and regular rhythm. Pulses: Normal pulses. Heart sounds: Normal heart sounds. Pulmonary: Effort: Pulmonary effort is normal. Abdominal: Palpations: Abdomen is soft. Tenderness: There is abdominal tenderness. Musculoskeletal: General: Normal range of motion. Cervical back: Normal range of motion. Skin: General: Skin is warm. Neurological: General: No focal deficit present. Mental Status: He is alert and oriented to person, place, and time. Results Review I have reviewed the latest lab and imaging results. Assessment & Plan 69 yr old M with GEJ adenocarcinoma currently on neoadjuvant FLOT-D C1 on 08/04/25 who presented with nausea, vomiting x 1 time, diarrhea and worsening of abdominal pain x one week. He was also foundto have elevated troponin level and abnormal EKG with AF and now back to sinus. - cardiology was consulted. Appreciate the recommendation. Did not believe this abnormal EKG and troponin were from 5FU related. - ok to continue with 5FU chemo - suspect from diarrhea, hypovolemic - comprehensive GI panel to rule out infectious - this is common side effects of chemotherapy - supportive care - his next chemo is on 08/18 [1] Past Medical History: Diagnosis Date Blood urine 2023 Esophageal cancer june 2025 Hypertension 1999 Kidney stone Skin cancer 2004 Stomach cancer (CMS/HCC) june 2025 [2] Past Surgical History: Procedure Laterality Date APPENDECTOMY 2020 BACK SURGERY 2001 CHOLECYSTECTOMY 1984 COLONOSCOPY 2023 GALLBLADDER SURGERY 1998 [3] Social History Tobacco Use Smoking status: Never Smokeless tobacco: Never Substance Use Topics Alcohol use: Never Drug use: Never [4] Family History Problem Relation Name Age of Onset Cancer Father [5] Current Facility-Administered Medications Medication Dose Route Frequency Provider Last Rate Last Admin oxyCODONE (Roxicodone) immediate release tablet 5 mg 5 mg Oral q6h PRN Magan Drew MD 5 mg at 08/13/251931 And acetaminophen (Tylenol) tablet 325 mg 325 mg Oral q6h PRN Magan Drew MD enoxaparin (Lovenox) syringe 40 mg 40 mg Subcutaneous Daily Magan Drew MD 40 mg at 08/13/25 165 HYDROmorphone (Dilaudid) injection 0.5 mg 0.5 mg Intravenous q2h PRN Magan Drew MD 0.5 mg at 08/14/25 0524 isosorbide dinitrate (Isordil) tablet 10 mg 10 mg Oral BID Magan Drew MD 10 mg at 08/14/25 0524 mupirocin (Bactroban) 2 % ointment 1 Application 1 Application Each Nostril BID Magan Drew MD1 Application at 08/13/252099 ondansetron (Zofran) injection 4 mg 4 mg Intravenous q4h PRN Aly Herrera MD 4 mg at 08/13/25 210 pantoprazole (Protonix) injection 40 mg 40 mg Intravenous Daily Magan Drew MD 40 mg at 08/13/25 1658 prochlorperazine (Compazine) tablet 5 mg 5 mg Oral q6h PRN Magan Drew MD Or prochlorperazine (Compazine) suppository 25 mg 25 mg Rectal q12h PRN Magan Drew MD Or prochlorperazine (Compazine) injection 2.5 mg 2.5 mg Intravenous q6h PRN Magan Drew MD Or prochlorperazine (Compazine) injection 5 mg 5 mg Intramuscular q6h PRN Magan Drew MD rosuvastatin (Crestor) tablet 10 mg 10 mg Oral Nightly Magan Drew MD 10 mg at 08/13/252099 sodium chloride 0.9 % flush 10 mL 10 mL Intravenous q12h Magan Drew MD 10 mL at 08/14/25 0201 And sodium chloride 0.9 % flush 10 mL 10 mL Intravenous PRN Magan Drew MD * Care Plan - Ana Cristina Yo - 08/13/2025 10:59 PM EDT Problem: Adult Inpatient Plan of Care Goal: Plan of Care Review Outcome: Ongoing, Progressing Flowsheets (Taken 08/13/20252256) Progress: improving Plan of Care Reviewed With: patient Goal: Patient-Specific Goal (Individualized) Outcome: Ongoing, Progressing Flowsheets (Taken 08/13/20251999) Patient/Family-Specific Goals (Include Timeframe): pt will report adequate pain control this shift. Individualized Care Needs: pain control Anxieties, Fears or Concerns: none expressed Goal: Absence of Hospital-Acquired Illness or Injury Outcome: Ongoing, Progressing Intervention: Identify and Manage Fall Risk Flowsheets (Taken 08/13/20252256) Safety Promotion/Fall Prevention: activity supervised assistive device/personal items within reach clutter-free environment maintained fall prevention program maintained room organization consistent nonskid shoes/slippers when out of bed toileting scheduled mobility aid in reach lighting adjusted safety round/check completed Intervention: Prevent Skin Injury Flowsheets Taken 08/13/20252256 Skin Protection: transparent dressing maintained pulse oximeter probe site changed incontinence pads utilized Taken 08/13/20251999 Body Position: neutral body alignment Intervention: Prevent and Manage VTE (Venous Thromboembolism) Risk Flowsheets (Taken 08/13/20252256) VTE Prevention/Management: education provided medication Intervention: Prevent Infection Flowsheets (Taken 08/13/20252256) Infection Prevention: environmental surveillance performed equipment surfaces disinfected hand hygiene promoted single patient room provided rest/sleep promoted personal protective equipment utilized Goal: Optimal Comfort and Wellbeing Outcome: Ongoing, Progressing Intervention: Monitor Pain and Promote Comfort Flowsheets (Taken 08/13/2025 1530 by Angelica Lee RN) Pain Management Interventions: medication (see MAR) rest Intervention: Provide Person-Centered Care Flowsheets (Taken 08/13/20252256) Trust Relationship/Rapport: care explained questions encouraged reassurance provided choices provided emotional support provided thoughts/feelings acknowledged empathic listening provided questions answered Problem: Infection Goal: Absence of Infection Signs and Symptoms Outcome: Ongoing, Progressing Intervention: Prevent or Manage Infection Flowsheets (Taken 08/13/20251999) Isolation Precautions: precautions maintained contact protective * H&P - Magan Drew MD - 08/13/2025 4:18 PM EDTAssociated Order(s): Consult to [facility] Images from the original note were not included. 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 He has a past medical history of recurrent nephrolithiasis, hypertension, hyperlipidemia, benign prostatic hyperplasia(BPH), and chronic kidney disease (CKD) stage 3A. He received his first dose of chemotherapy on 08/03/2025, which included docetaxel, fluorouracil, leucovorin, and oxaliplatin. He initially presented to an outside hospital this morning with complaints of epigastric pain. His condition deteriorated post-chemotherapy, although he experienced a briefperiod of relief for a day or two and decided to play pickleball on Friday which was limited by lightheadedness; he stated that he needed to play for his mental well-being. However, since Friday, hiscondition has worsened. He denies any sudden change in symptoms while playing pickleball but rathera progressive change throughout the week. He reports persistent pain in the epigastrium which he describes as the site of the tumor, rating it as 8 out of 10. The pain is constant and dull, with occasional sharp episodes occurring every few hours. He reports no fevers. His appetite and fluid intake have decreased since starting chemotherapy, and he has been consuming a liquid diet including Pedialyte, Gatorade, and broth. He has experienced nausea and vomiting 8 to 10 times over the past week, with 3 episodes occurring last night. This morning, he had diarrhea and has had 5 to 6 episodes per day this week. He experienced constipation over the weekend. He continues to experience intermittent lightheadedness and dizziness. He reports no shortness of breath. At the outside hospital, initial labs were notable for normal WBC, creatinine 1.6, sodium 124. A CTscan of the abdomen and pelvis revealed pancolitis. He was treated with cefepime, Flagyl, and IV fluids before being transferred here. Additionally, new-onset atrial fibrillation/atrial flutter was noted on EKG with a mildly elevated troponin level without significant delta. Regarding his cancer history, he was diagnosed earlier this year after experiencing esophageal dysphagia. An EGD showed a large circumferential mass, and pathology confirmed adenocarcinoma. He was initially planned to include durvalumab in his chemotherapy, but it was denied by insurance. They are c urrently appealing, and if approved, it will be included in the second round of chemotherapy. Additional history was provided by family. I reviewed prior records including his note prior to transfer, most recent ED note, and most recentoncology specialist note which documented cancer history as discussed above. Past Medical History Past Medical History[1] Surgical History Surgical History[2] Family History Family History[3] Social History Social History[4] Home Medications Current Outpatient Medications Medication Instructions alfuzosin (UROXATRAL) 10 mg, Daily dexamethasone (DECADRON) 8 mg, Oral, 2 times daily, Start day prior to docetaxel and continue for atotal of 3 days. Famotidine (PEPCID PO) loperamide (Imodium A-D) 2 MG tablet 2 mg by mouth every 2 hours as needed for diarrhea; Not to exceed 16 mg in 24 hours Multiple Vitamin (multivitamin) capsule 1 capsule, Daily ondansetron (ZOFRAN) 8 mg, Oral, 2 times daily, Take for two days starting the day after chemotherapy and then take PRN oxyCODONE-acetaminophen (Percocet) 5-325 MG tablet 1 tablet, Oral, Every 6 hours PRN prochlorperazine (COMPAZINE) 10 mg, Oral, Every 6 hours PRN rosuvastatin (CRESTOR) 10 mg, Daily Objective Blood pressure 129/80, pulse 85, temperature 36.5 ??C (97.7 ??F), temperature source Oral, resp. rate 20, weight 94.1 kg (207 lb 7.3 oz), SpO2 93%. Physical Exam Constitutional: General: He is not in acute distress. Appearance: He is ill-appearing. He is not diaphoretic. HENT: Head: Normocephalic. Eyes: General: No scleral icterus. Cardiovascular: Rate and Rhythm: Normal rate and regular rhythm. Heart sounds: No murmur heard. Pulmonary: Effort: No respiratory distress. Breath sounds: Normal breath sounds. Abdominal: General: There is distension. Palpations: There is no mass. Tenderness: There is no abdominal tenderness. There is guarding. There is no rebound. Hernia: No hernia is present. Musculoskeletal: Right lower leg: No edema. Left lower leg: No edema. Skin: Findings: Rash (erythema of right side of face in temporal area) present. Neurological: Mental Status: He is oriented to person, place, and time. Psychiatric: Mood and Affect: Mood normal. Behavior: Behavior normal. Data Labs personally reviewed CBC WBC 5.96 Hb 11.9 (L) Plt 149 (L) Hct 34.3 (L) ANC 4.25 INR ??, PTT ??, Anti-Xa ?? BMP Na 130 (L) Cl 100 BUN 28 (H) Glu 105 (H) K 3.7 Co2 17 (L) Cr 1.41 (H) Ca 7.1 (L) iCa ?? Mg 1.7 (L), Phos ?? Lactate ?? LFT AST 14 AlkPhos 51 T Prot 4.8 (L) ALK 15 Bili 0.6 Alb ?? D.Bili ?? Imaging ECG personally reviewed. Initially showed atrial flutter (rate controlled) with ST depressions in V3-V5. Repeat ECG showed NSR with persistent depression in V3-V5. CT personally reviewed, showing distal esophageal mass. Assessment/Plan Assessment/ Plan Principal Problem: Epigastric pain Justin Best is a 69 y.o. male with PMH of esophageal adenocarcinoma on chemotherapy, HTN, HLD, BPH and CKD3a who presents with epigastric pain, nausea, vomiting, and diarrhea. This condition is a severe exacerbation, progression or side effect of treatment. Epigastric pain with concern for esophageal spasms - lipase normal and no CT evidence of pancreatic inflammation (rules out acute pancreatitis), liverenzymes normal, no free air on CTAP (rules out esophageal rupture) - differential includes esophageal spasms (episodic in severity with epigastric/substernal squeezing pain that resolves in seconds to minutes), biliary colic/sphincter of Oddi dysfunction (less likely with history of cholecystectomy), GERD, pain related to recent chemotherapy initiation, ACS (persistent over one week with minimally elevated troponin makes this less likely) PLAN: - Initiate isosorbide dinitrate 10mg BID for esophageal spasm - started IV pantoprazole 40mg daily. Takes Pepcid at home. - Pain control with oxycodone 5mg and acetaminophen 325mg q6h PRN, IV hydromorphone 0.5mg q2h PRN severe breakthrough pain - Cardiology consulted by ED for minimally elevated troponin and ST depressions on EKG although suspicion is low for angina given history and episodic severity of symptoms. Will hold further ACS treatment at this time and await formal recommendations. Gastroenterocolitis - reports multiple episodes of vomiting and diarrhea since chemotherapy - CT at OSH showed pancolitis. Given IV cefepime and Flagyl at OSH. - ddx includes chemotherapy-induced, infectious PLAN: - GI PCR, C. Diff PCR, fecal lactoferrin/calprotectin ordered by ED - clear liquid diet with Boost supplements ordered - hold additional abx at this time as there is not a clear bacterial source. Follow infectious workup. - started IV pantoprazole 40mg daily. Takes Pepcid at home. New-onset paroxysmal non-valvular atrial fibrillation - [id number]: 2 - Rate-controlled - Per cardiology: - Rate control: Not indicated at this time - Rhythm control: Not indicated at this time, in sinus rhythm at the time of evaluation - Embolic prevention: Start apixaban if no contraindication or planned procedure. Will hold for now. - Please obtain a 14 day Holter monitor on discharge to evaluate for Afib burden - Patient to follow up in cardiology fellows clinic - Consider outpatient sleep study to evaluate for underlying sleep apnea Hyponatremia - 124 at OSH and 130 here after receiving 2L IVF at OSH. Unsure acuity of change. Likely related to poor PO intake and vomiting/diarrhea resulting in overall fluid losses. Urine sodium, urine osm, and serum osm ordered to complete workup. Will check Na q6h to ensure it is not rapidly ch anging. If rising too quickly, will consider desmopressin and nephrology consult. Chronic myocardial injury - troponin 21 --> 18. Even with active ST depressions on ECG, unlikelyto represent ACS without significant delta. Cardiology has been consulted by ED and patient was loaded with ASA at OSH. Will await recommendations. Hold further ACS treatment at this time. Elevated BNP - 7,989. Had TTE on 07/29/25 prior to chemotherapy which showed normal LVEF and G1DD. He denies SOA. Has no clinical signs of HF or PE. Etiology may be related to recent chemotherapy. As above, await recs from cards. Acute on chronic normocytic anemia - Hgb 11.9 from 13.0 prior to starting chemotherapy. No bleedingreported. Likely related to recent chemotherapy. AM CBC ordered. Thrombocytopenia - platelets 149 from 326 prior to starting chemotherapy. No bleeding/bruising reported. Likely related to recent chemotherapy. AM CBC ordered. NAGMA - serum bicarbonate 17 on labs. AG normal. Likely related to volume losses and diarrhea (reported 5-6 episodes per day for 1 week). Will monitor with AM labs. Hypocalcemia - calcium 7.1, corrects to 8.5 given hypoalbuminemia which is still low. Ordered IV calcium gluconate 2g. Hypoalbuminemia - albumin 2.2. Likely related to recent chemotherapy. Hypomagnesemia - Mg 1.7 on arrival. Ordering IV magnesium sulfate 2g. AM Mg ordered. Elevated CRP - 294.3. Presumed to be related to recent cytotoxic chemotherapy. No signs of infection at this time. Chronic Medical Conditions: BPH - reports he has not taken his alfuzosin the past few days. Will monitor for signs of urinary retention. HTN - PCP recently took him off bisoprolol HLD - resume home rosuvastatin 10mg at bedtime CKD3a - creatinine currently at baseline after IV fluid resuscitation at OSH (1.6 --> 1.41) Care today included: HIGHRISK: High risk: Drug therapy requiring intensive monitoring for toxicity: will monitor QTC while giving antiemetics or Unique labs ordered: fecal calprotectin and lactoferrin Electronically Signed by: Magan Drew MD - 08/13/2025 - 4:18 PM Magan Drew MD Internal Medicine PGY-3 [1] Past Medical History: Diagnosis Date Blood urine 2023 Esophageal cancer june 2025 Hypertension 1999 Kidney stone Skin cancer 2004 Stomach cancer (CMS/HCC) june 2025 [2] Past Surgical History: Procedure Laterality Date APPENDECTOMY 2020 BACK SURGERY 2001 CHOLECYSTECTOMY 1985 COLONOSCOPY 2023 GALLBLADDER SURGERY 1998 [3] Family History Problem Relation Name Age of Onset Cancer Father [4] Social History Tobacco Use Smoking status: Never Smokeless tobacco: Never Substance Use Topics Alcohol use: Never Drug use: Never Cosigned by Karlos Castañeda MD at 08/15/2025 8:54 PM EDT Associated attestation - Karlos Castañeda MD - 08/15/2025 8:54 PM EDT I saw and evaluated the patient with the resident/fellow. I discussed the case with the resident/fellow and agree with the findings and plan as documented. * Consults - Kadeem Jones DO - 08/13/2025 2:20 PM EDTAssociated Order(s): Inpatient consult to Cardiology Images from the original note were not included. CARDIOLOGY NEW CONSULT NOTE Inpatient consult to Cardiology Consult performed by: Kadeem Jones DO Consult ordered by: Kalina Crandall MD ASSESSMENT / PLAN Justin Best is a 69 y.o. male with a past medical history of gastric adenocarcinoma who initially presented to the [facility] on 08/13/2025 with chief complaint of weakness. 1) NSTEMI type 2 vs. Acute myocardial injury 2) Noncardiac chest pain 3) Paroxysmal atrial fibrillation Acute myocardial injury versus NSTEMI type 2 Noncardiac chest pain Low suspicion for type 1 event, suspect secondary to recent chemotherapy administration/hypovolemia/possible sepsis. - Presenting ECG as below - Initial troponin 21, uptrended to 18, delta 3 - Repeat echocardiogram not indicated at this time Paroxysmal non-valvular atrial fibrillation without RVR - COOKIE?DS?-VASc score: 2 - Rate control: Not indicated at this time - Rhythm control: Not indicated at this time, in sinus rhythm at the time of evaluation - Embolic prevention: Start apixaban if no contraindication or planned procedure - Please obtain a 14 day Holter monitor on discharge to evaluate for Afib burden - Patient to follow up in cardiology fellows clinic - Consider outpatient sleep study to evaluate for underlying sleep apnea Thank you for allowing us to participate in the care of this patient! This consult will be seen and staffed with the following attending physician: Dr. Noriega. Our team will sign off at this time.. Please page the on-call resident assistant cna ([phone]) with any further questions. I spent 45 minutes performing the following components of the encounter (on the day of the encounter): reviewing History, examining the patient, reviewing imaging and/or labs, counseling the patient and family/caregiver, communicating with other health nurse wound care, care coordination, and entering clinical information in the EHR. Greater than 50% of the time spent on the encounter was face to face providing direct patient care, counseling for the patient/caregiver, and care coordination. Kadeem Jones DO Fellow, PGY-5, Department of Cardiovascular Medicine SUBJECTIVE History Of Present Illness Justin Best is a 69 y.o. male with a past medical history as listed above who initially presented to the [facility] on 08/13/2025 with chief complaint of epigastric pain. Cardiology is consulted for management recommendations regarding atrial fibrillation and acute myocardial injury. Patient states that for the past several days he has had profound fatigue, nausea, vomiting, and pressure-like epigastric abdominal pain which is nonexertional, not palliated by rest, and nonradiating. He was found to have a troponin elevation and new-onset atrial fibrillation. He has never been told he has atrial fibrillation. He denies any recent palpitations, lightheadedness, syncope, chest pain, dyspnea, leg pain or swelling, or any other complaints at this time. Review of Systems 14 point ROS reviewed and is otherwise negative except that which is mentioned in the HPI. Past Medical History Past Medical History[1] Surgical History Surgical History[2] Family History Family History[3] Social History Social History[4] Allergies Penicillins Home Medications Medications Ordered Prior to Encounter[5] OBJECTIVE Physical Exam Physical Exam Constitutional: General: He is awake. He is not in acute distress. Appearance: He is normal weight. He is ill-appearing. He is not toxic-appearing. HENT: Mouth/Throat: Mouth: Mucous membranes are moist. Eyes: General: No scleral icterus. Conjunctiva/sclera: Right eye: Right conjunctiva is not injected. Left eye: Left conjunctiva is not injected. Neck: Vascular: No JVD. Cardiovascular: Rate and Rhythm: Normal rate and regular rhythm. Pulses: Radial pulses are 2+ on the right side and 2+ on the left side. Heart sounds: No murmur heard. No systolic murmur is present. No diastolic murmur is present. No friction rub. No gallop. No S3 or S4 sounds. Pulmonary: Effort: No tachypnea. Breath sounds: No stridor or decreased air movement. No decreased breath sounds, wheezing, rhonchi or rales. Abdominal: General: Abdomen is flat. There is no distension. Musculoskeletal: Right lower leg: No edema. Left lower leg: No edema. Skin: General: Skin is warm and dry. Neurological: General: No focal deficit present. Mental Status: He is alert. Psychiatric: Attention and Perception: Attention normal. Mood and Affect: Mood and affect normal. Behavior: Behavior is cooperative. Intake / Output No intake or output data in the 24 hours ending 08/13/25 1421 Lab Review I personally reviewed the pertinent labs Primary Study Review I personally reviewed the the images/tracings of the following studies: echocardiogram and ECG Most recent Echocardiogram (07/29/2025) Echo, Adult Transthoracic Complete Result Date: 07/29/2025 [...] is no recent study available for direct [id number] comparison. ECG/Telemetry 08/13/2025, 1246 Interpretation: Atrial fibrillation with controlled ventricular response, normal axis, nonspecific ST-T changes in the anterior leads The following cardiovascular risk factors and co-morbidities complicates the management of these conditions: Fluid & Electrolyte Disorders - reasonably well controlled with the following disturbances: acidosis, volume depletion, hyponatremia, hypocalcemia, and hypomagnesemia [1] Past Medical History: Diagnosis Date Blood urine 2023 Esophageal cancer june 2025 Hypertension 1999 Kidney stone Skin cancer 2004 Stomach cancer (CMS/HCC) june 2025 [2] Past Surgical History: Procedure Laterality Date APPENDECTOMY 2020 BACK SURGERY 2001 CHOLECYSTECTOMY 1984 COLONOSCOPY 2023 GALLBLADDER SURGERY 1998 [3] Family History Problem Relation Name Age of Onset Cancer Father [4] Social History Tobacco Use Smoking status: Never Smokeless tobacco: Never Substance Use Topics Alcohol use: Never Drug use: Never [5] Current Facility-Administered Medications Medication Dose Route Frequency Provider Last Rate Last Admin HYDROmorphone (Dilaudid) injection 0.5 mg 0.5 mg Intravenous q2h PRN Aly Herrera MD ondansetron (Zofran) injection 4 mg 4 mg Intravenous q4h PRN Aly Herrera MD 4 mg at 08/13/25 1419 Current Outpatient Medications Medication Sig Dispense Refill alfuzosin (Uroxatral) 10 MG 24 hr tablet Take 1 tablet by mouth daily. dexamethasone (Decadron) 4 MG tablet Take 2 tablets by mouth 2 times a day. Start day prior to docetaxel and continue for a total of 3 days. 72 tablet 0 Famotidine (PEPCID PO) loperamide (Imodium A-D) 2 MG tablet 2 mg by mouth every 2 hours as needed for diarrhea; Not to exceed 16 mg in 24 hours 30 tablet 5 Multiple Vitamin (multivitamin) capsule Take 1 capsule by mouth daily. ondansetron (Zofran) 8 MG tablet Take 1 tablet by mouth 2 times a day. Take for two days starting the day after chemotherapy and then take PRN 30 tablet 3 oxyCODONE-acetaminophen (Percocet) 5-325 MG tablet Take 1 tablet by mouth every 6 hours as needed for severe pain. 120 tablet 0 prochlorperazine (Compazine) 10 MG tablet Take 1 tablet by mouth every 6 hours as needed for nauseaor vomiting. 30 tablet 5 rosuvastatin (Crestor) 10 MG tablet Take 1 tablet by mouth daily. Cosigned by Mohamud Noriega MD at 08/14/2025 12:43 PM EDT Associated attestation - Mohamud Noriega MD - 08/14/2025 12:43 PM EDT I saw and evaluated the patient with the fellow. I agree with the findings and plan as documented with the following addition. Mildly elevated troponin secondary to myocardial injury in setting of acute illness. No suspicion for ACS. Recent echocardiogram unremarkable. No contraindication to continuing his current chemotherapy, including 5-FU. Management of newly discovered paroxysmal atrial fibrillation including initiation of therapeutic anticoagulation as below. Our consult team will sign off at this time. Please reach out to on-call physician for [facility] [employer] Consults with any further questions. * ED Provider Notes - Aly Herrera MD - 08/13/2025 12:19 PM EDT Images from the original note were not included. - HPI Chief Complaint Patient presents with Nausea HPI Patient is a 69-year-old male history of newly diagnosed gastroesophageal cancer on chemotherapy who presented to OSH for epigastric pain and N/V/D. CT imaging there showed pancolitis. Patient was given cefepime/Flagyl. Patient also given 2 L of fluids for resuscitation. EKG showed AFib/flutter without RVR with elevated troponin. WBC 4 at osh. Afebrile. Patient states that his 1st round of chemotherapy was last Friday. Patient states that epigastric pain began proximally 2 days ago and has been persistent. Several episodes of nausea with nonbilious/nonbloody vomiting. Saw been having several episodes of nonbloody diarrhea. Poor oral intake due to pain and his symptoms. Denies any fever, chest pain, headache, vision changes, neck pain, rashes. Patient History Past Medical History[1] Surgical History[2] Family History[3] Social History[4] Allergies: Allergies[5] Physical Exam ED Triage Vitals [08/13/25 1226] Temp Heart Rate Resp BP 36.4 ??C (97.5 ??F) 77 16 105/70 SpO2 Temp Source Heart Rate Source Patient Position 97 % Oral -- Lying BP Location FiO2 (%) Left arm -- Physical Exam Constitutional: General: He is not in acute distress. Appearance: He is not ill-appearing. Eyes: Pupils: Pupils are equal, round, and reactive to light. Cardiovascular: Rate and Rhythm: Normal rate. Pulmonary: Effort: Pulmonary effort is normal. Abdominal: Palpations: Abdomen is soft. Tenderness: There is abdominal tenderness in the epigastric area. Musculoskeletal: General: Normal range of motion. Cervical back: Normal range of motion. Skin: General: Skin is warm. Capillary Refill: Capillary refill takes less than 2 seconds. Neurological: General: No focal deficit present. Mental Status: He is oriented to person, place, and time. EASI ?? Total Score: 0 Jose Coma Scale Score: 15 ED Course & MDM - Assessment: 69 y.o. male presents to ED with complaint of abd pain, n/v/d. It should be noted that the chronic conditions includes newly diagnosed gastroesophageal cancer on chemotherapy, which currently is not at goal therapy. This complicates the clinical picture because it Comorbidities: may be exacerbatingsymptoms, increases the amount and complexity of data to be reviewed, and complicates the clinical workup Differential Diagnosis: Colitis, sepsis, neutropenic fever, electrolyte abnormality, arrhythmia, chemotherapy reaction, gastroenteritis, C diff, viral illness, ACS, among others In order to fully explore the differential diagnosis the following treatments and tests were ordered: ED Medication Administration from 08/13/2025 1028 to 08/13/2025 1610 Date/Time Order Dose Route Action 08/13/2025 1419 EDT ondansetron (Zofran) injection 4 mg 4 mg Intravenous Given 08/13/2025 1420 EDT morphine PF 4 mg 4 mg Intravenous Given 08/13/2025 1529 EDT HYDROmorphone (Dilaudid) injection 0.5 mg 0.5 mg Intravenous Given All Other Orders Ordered Status Ordering Provider 08/13/25 1610 Basic metabolic panel Morning draw Acknowledged MAGAN DREW 08/13/25 1610 CBC and Differential Morning draw Acknowledged MAGAN DREW 08/13/25 1610 Magnesium, Plasma Morning draw Acknowledged MAGAN DREW 08/13/25 1610 Phosphorus Morning draw Acknowledged MAGAN DREW 08/13/25 1610 Vital Signs Every 4 hours Placed in And Linked Group Acknowledged MAGAN DREW 08/13/25 1610 Pulse Oximetry Every 4 hours Placed in And Linked Group Acknowledged MAGAN DREW 08/13/25 1610 Do Not Give Nicotine Replacement Until discontinued Acknowledged MAGAN DREW 08/13/25 1610 Continuous Pulse Oximetry (Needs additional Telemetry Order too) Until discontinued Acknowledged MAGAN DREW 08/13/25 1610 Telemetry Monitoring for Other Arrhythmias except Chronic Atrial Fibrillation Until discontinued Acknowledged MAGAN DREW 08/13/25 1610 Full code Continuous MAGAN Avila 08/13/25 1610 Adult diet Diet texture: Clear liquid Diet effective now Acknowledged MAGAN DREW 08/13/25 1610 Admit to inpatient Once Acknowledged MAGAN DREW 08/13/25 1610 Mobility Orders Until discontinued Acknowledged MAGAN DREW 08/13/25 1610 Notify physician (specify parameters) Until discontinued Acknowledged MAAGN DREW 08/13/25 1610 Insert peripheral IV Once Placed in And Linked Group Acknowledged MAGAN DREW 08/13/25 1610 Saline lock IV Once Placed in And Linked Group Acknowledged MAGAN DREW 08/13/25 1600 ECG Adult Once Preliminary result MAGAN DREW 08/13/25 1354 Troponin T, High Sensitivity, 2 Hour, Plasma PROCEDURE ONCE Final result ALY HERRERA 08/13/25 1508 Calprotectin, Stool Once Acknowledged ALY HERRERA 08/13/25 1508 Fecal Lactoferrin STAT Acknowledged ALY HERRERA 08/13/25 1444 Consult to [facility] Once Specialty: Internal Medicine Provider: (Not yet assigned) Acknowledged ALY HERRERA 08/13/25 1444 ED to floor bed request Once Completed ALY HERRERA 08/13/25 1416 Initiate Contact D Isolation Continuous Comments: Added via Instant Order OPA Acknowledged BPA, INSTANT ORDERS 08/13/25 1359 Inpatient consult to Cardiology Once Specialty: Cardiology Provider: (Not yet assigned) Completed ALY HERRERA 08/13/25 1355 Clostridiodes (Clostridium) difficile PCR STAT Acknowledged ALY HERRERA 08/13/25 1355 Comprehensive GI Panel by PCR STAT Acknowledged ALY HERRERA 08/13/25 1308 CBC w/diff STAT Final result ALY HERRERA 08/13/25 1308 CMP STAT Final result ALY HERRERA 08/13/25 1308 Lipase STAT Final result ALY HERRERA 08/13/25 1308 Magnesium STAT Final result ALY HERRERA 08/13/25 1308 Troponin now and 120 min STAT Final result ALY HERRERA 08/13/25 1308 Once Canceled ALY HERRERA 08/13/25 1308 Hepatitis C Antibody - ED Once Final result ALY HERRERA 08/13/25 1308 ED Protocol - HIV 1/2 Antibody/Antigen Screen Once Final result ALY HERRERA 08/13/25 1308 BNP STAT Final result ALY HERRERA 08/13/25 1308 C-Reactive protein STAT Final result ALY HERRERA 08/13/25 1308 ED HIV 1/2 Antibody/Antigen Screen w/Reflex to HIV 1/2 Differentiation PROCEDURE ONCE Final result ALY HERRERA 08/13/25 1242 EKG now - STAT (adult) Once Preliminary result KALINA CRANDALL ED Course as of 08/13/25 1701 Sat Aug 13, 2025 1316 Chart from OSH reviewed and CT scan shows pancolitis. S/p cefepime and flagyl. Bcx done and pending. Na 124 (previously 139). S/p 2L IVF. Has new A fib, controlled at 82, BP 88/64, has type II n-stemi (no CP) [DK] 1318 06/17/25- EGD: notable for a circumferential fungating friable mass in the distal esophagus between 38 and 46 cm with diffuse moderate nonerosive gastropathy/gastritis and multiple fundic gland polyps. 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 [DK] 1319 EKG now - STAT (adult) EKG independently interpreted by myself and showed afib wo rvr. No ST elevation present. ST & Twave abnormalities present. Subtle ST depressions present in V3- V5. Pt denies any chest pain. [DK] 1451 WBC: 5.96 Normal, no neutropenia. [DK] 1659 Labs were reviewed by myself which showed troponin elevated to 21. Creatinine at 1.41 appears to be at baseline. Hyponatremia last sodium of 130. CRP elevated at 294. I consulted Cardiology to evaluate the patient in the ED due to new onset AFib versus a flutter without RVR as well as NSTEMI. At this time I also consulted Hospital Medicine to evaluate the patient in admission. Upon their evaluation they agreed to admit the patient to their service and assumed full responsibility of the patient [DK] ED Course User Index [DK] Aly Herrera MD Clinical Impressions as of 08/13/25 1701 Epigastric pain Gastric adenocarcinoma (CMS/HCC) Nausea vomiting and diarrhea Colitis Atrial fibrillation, unspecified type (CMS/HCC) NSTEMI (non-ST elevated myocardial infarction) Social Determinates of Health Risks (including Economic Stability, Education and level of understanding, Healthcare access and quality and concerning social factors): None identified on this visit Ultimately, this patient was Was admitted (Admission) The primary encounter diagnosis was Epigastric pain. Diagnoses of Gastric adenocarcinoma (CMS/HCC), Nausea vomiting and diarrhea, Colitis, Atrial fibrillation, unspecified type (CMS/HCC),and NSTEMI (non-ST elevated myocardial infarction) were also pertinent to this visit.. Patient believed to require admission for the listed diagnoses. The Internal Medicine service was consulted for admission and was agreeable to admit to Acute Floor (Med/Surg). ED Prescriptions None Disposition Admit Bed request comments: pav A 11th floor if possible Admitting/Attending Physician: KARLOS CASTAÑEDA [[id number]] Provider Care Team: ЮЛИЯ Syed [[id number]] Are they the primary team?: Yes [1] - [1] Past Medical History: Diagnosis Date Blood urine 2023 Esophageal cancer june 2025 Hypertension 1999 Kidney stone Skin cancer 2004 Stomach cancer (CMS/HCC) june 2025 [2] Past Surgical History: Procedure Laterality Date APPENDECTOMY 2020 BACK SURGERY 2001 CHOLECYSTECTOMY 1985 COLONOSCOPY 2023 GALLBLADDER SURGERY 1998 [3] Family History Problem Relation Name Age of Onset Cancer Father [4] Tobacco Use Smoking status: Never Smokeless tobacco: Never Substance Use Topics Alcohol use: Never Drug use: Never [5] Allergies Allergen Reactions Penicillins Unknown - Patient states they do not know rxn details Childhood allergy, thinks it was maybe a rash, but isn't sure Aly Herrera MD Resident 08/13/25 1702 Cosigned by Kalina Crandall MD at 08/14/2025 7:17 AM EDT Associated attestation - Kalina Crandall MD - 08/14/2025 7:17 AM EDT The patient was personally evaluated at bedside. Test results were reviewed and discussed with the patient. Case was discussed with the resident and I am in agreement with the assessment and plan * ED Triage Notes - Angelica Lee RN - 08/13/2025 12:19 PM EDT Pt arrives from osh for nausea. Per ems pt has a hx of esophageal cancer. Osh also reports that on arrival pt was having an Nstemi and new onset afib. VSS on arrival. documented in this encounter Plan of Treatment Upcoming Encounters Date Type Department Care Team (Latest Contact Info) Description 09/01/2025 9:15 AM EDT Clinical Support [facility] Multidisciplinary Oncology Clinic [address] [place] [phone] 09/01/2025 9:30 AM EDT Office Visit [facility] [address] [place] [phone] Aristides Reina MD [address] [place] [id number] 09/01/2025 11:00 AM EDT Appointment [facility] [address] [place] [phone] 09/03/2025 10:30 AM EDT Appointment [facility] [address] [place] [phone] 09/15/2025 9:30 AM EST Appointment [facility] [address] [place] [phone] 09/17/2025 9:00 AM EST Appointment [facility] [address] [place] [phone] 09/21/2025 8:45 AM EST Office Visit [facility] [place] [address] [facility], [address] [place] [phone] Juarez Recinos MD [address] [place] [address] 09/28/2025 8:00 AM EST Appointment [facility] PET [facility] [address] [place] [phone] 09/28/2025 9:00 AM EST Appointment [facility] PET Scan [address] [place] [phone] 09/28/2025 10:15 AM EST Office Visit [facility] [address] [place] [phone] Kim Machado MD [address] [facility] [address] [place] [phone] 01/13/2026 12:00 PM EST Office Visit [facility] [address] [place] [phone] Eros Mejia MD [address] [place] [address] Pending Results Name Type Priority Associated Diagnoses Date /Time EKG now - STAT (adult) ECG STAT 08/13/2025 12:46 PM EDT ECG Adult ECG Routine 08/13/2025 4:0 4 PM EDT Adult Patch Monitor - 14 Day Cardiac Services Routine Atrial fibrillation, unspecified type (CMS/HCC) 08/18/2025 8:56 AM EDT Scheduled Orders Name Type Priority Associated Diagnoses Orde r Schedule Adult Patch Monitor - 14 Day Cardiac Services Routine Atrial fibrillation, unspecified type (CMS/HCC) Expected: 08/15/2025 (Approximate), Expires: 02/16/2027 Scheduled Referrals Name Type Priority Associated Diagnoses Order Schedule Discharge Ambulatory referral to Cardiology Outpatient Referral Routine Atrial fibrillation, unspecified type (CMS/HCC) Expected: 09/15/2025, Expires: 02/16/2027 Ambulatory referral to External PCP Outpatient Referral Routine Atrial fibrillation, unspecified type (CMS/HCC) 1 Occurrences starting 08/15/2025 until 02/16/2027 documented as of this encounter Procedures Procedure Name Priority Date/Time Associated Diagnosis Comments LACTATE, VENOUS Routine 08/15/2025 4:20 AM EDT CBC WITH AUTO DIFFERENTIAL Routine 08/15/2025 4:20 AM EDT MAGNESIUM, PLASMA Routine 08/15/2025 4:2 0 AM EDT COMPREHENSIVE METABOLIC PANEL, PLASMA Routine 08/15/2025 4:20 AM EDT POCT GLUCOSE METER UNSOLICITED RESULTS Routine 08/14/2025 11:49 PM EDT BLOOD CULTURE (AEROBIC/ANAEROBIC SET) Routine 08/14/2025 11:06 AM EDT BLOOD CULTURE (AEROBIC/ANAEROBIC SET) Routine 08/14/2025 10:50 AM EDT COMPREHENSIVE GI PANEL BY PCR STAT 08/14/2025 10:21 AM EDT FECAL LACTOFERRIN STAT 08/14/2025 10: 21 AM EDT CLOSTRIDIODES (CLOSTRIDIUM) DIFFICILE,PCR STAT 08/14/2025 10:21 AM EDT CALPROTECTIN, FECAL BY IMMUNOASSAY (SO) STAT 08/14/2025 10:21 AM EDT CLOSTRIDIUM DIFFICILE EIA STAT 08/14/2025 10:21 AM EDT CBC WITH AUTO DIFFERENTIAL Routine 08/14/2025 5:24 AM EDT SODIUM, PLASMA Timed 08/14/2025 5:24 AM EDT PHOSPHORUS, PLASMA Routine 08/13/2025 11 :58 PM EDT MAGNESIUM, PLASMA Routine 08/13/2025 11: 58 PM EDT BASIC METABOLIC PANEL, PLASMA Timed 08/13/2025 11:58 PM EDT SODIUM, PLASMA Timed 08/13/2025 8:16 PM EDT SODIUM, URINE, RANDOM Routine 08/13/2025 7:39 PM EDT OSMOLALITY, URINE Routine 08/13/2025 7:3 9 PM EDT ECG ADULT Routine 08/13/2025 4:04 PM EDT TROPONIN T, HIGH SENSITIVITY, 2 HOUR, PLASMA Timed 08/13/2025 3:27 PM EDT ED HIV 1/2 ANTIBODY/ANTIGEN SCREEN WITH REFLEX TO HIV I/II DIFFERENTIATION STAT 08/13/2025 1:24 PM EDT ED PROTOCOL HIV 1/2 ANTIBODY/ANTIGEN SCREEN W/REFLEX TO HIV 1/2 ANTIBODY DIFFERENTIATION STAT 08/13/2025 1:24 PM EDT TROPONIN T, HIGH SENSITIVITY, 0 HOUR, PLASMA, REFLEX TO 2 HOUR STAT 08/13/2025 1:24 PM EDT HEPATITIS C ANTIBODY - ED W/REFLEX TO HCV QUANT PCR STAT 08/13/2025 1:24 PM EDT N-TERMINAL PROBNP, PLASMA STAT 08/13/2025 1:24 PM EDT CBC WITH AUTO DIFFERENTIAL STAT 08/13/2025 1:24 PM EDT C-REACTIVE PROTEIN, PLASMA STAT 08/13/2025 1:24 PM EDT PHOSPHORUS, PLASMA Add-On 08/13/2025 1: 24 PM EDT OSMOLALITY, SERUM Add-On 08/13/2025 1:2 4 PM EDT MAGNESIUM, PLASMA STAT 08/13/2025 1:2 4 PM EDT LIPASE, PLASMA STAT 08/13/2025 1:24 PM EDT COMPREHENSIVE METABOLIC PANEL, PLASMA STAT 08/13/2025 1:24 PM EDT ECG ADULT STAT 08/13/2025 12:46 PM EDT documented in this encounter Results * Lactate, venous (08/15/2025 4:20 AM EDT) [facility] Lactate, Venous, Whole Blood 1.2 0.5 - 2.2 mmol/L LAB HEMATOLOGY METHOD 08/15/2025 4:49 AM EDT [facility] Blood Venous blood specimen / Unknown Venipuncture / Unknown 08/15/2025 4:20 AM EDT 08/15/2025 4:48 AM EDT us Ana Rosa Fields MD LAB BLOOD ORDERABLES Final Resu lt [facility] [address] [place] [address] * (ABNORMAL) CBC and Differential (08/15/2025 4:20 AM EDT) [facility] WBC Count 11.39(H) 3.70 - 10.30 10*3/uL LAB HEMATOLOGY METHOD 08/15/2025 5:45 AM EDT [facility] RBC Count 3.24(L) 4.60 - 6.10 10*6/uL LAB HEMATOLOGY METHOD 08/15/2025 5:45 AM EDT [facility] HGB 9.7(L) 13.7 - 17.5 g/dL LAB HEMATOLOGY METHOD 08/15/2025 5:45 AM EDT [facility] HCT 28.7(L) 40.0 - 51.0 % LAB HEMATOLOGY METHOD 08/15/2025 5:45 AM EDT [facility] Platelet Count 168 155 - 369 10*3/uL LAB HEMATOLOGY METHOD 08/15/2025 5:45 AM EDT [facility] MCV 89 79 - 98 fL LAB HEMATOLOGY METHOD 08/15/2025 5:45 AM EDT [facility] MCH 29.9 26.0 - 32.0 pg LAB HEMATOLOGY METHOD 08/15/2025 5:45 AM EDT [facility] MCHC 33.8 30.7 - 35.5 g/dL LAB HEMATOLOGY METHOD 08/15/2025 5:45 AM EDT [facility] RDW 12.7 11.5 - 14.5 % LAB HEMATOLOGY METHOD 08/15/2025 5:45 AM EDT [facility] MPV 10.7 8.8 - 12.5 fL LAB HEMATOLOGY METHOD 08/15/2025 5:45 AM EDT [facility] nRBC 0.8(H) <=0.0 per 100 WBCs LAB HEMATOLOGY METHOD 08/15/2025 5:45 AM EDT [facility] Differential Type Automated LAB HEMATOLOGY METHOD 08/15/2025 5:45 AM EDT [facility] Neutrophils % 84 % LAB HEMATOLOGY METHOD 08/15/2025 5:45 AM EDT [facility] Lymphocytes % 5 % LAB HEMATOLOGY METHOD 08/15/2025 5:45 AM EDT [facility] Monocytes % 7 % LAB HEMATOLOGY METHOD 08/15/2025 5:45 AM EDT [facility] Eosinophils % 0 % LAB HEMATOLOGY METHOD 08/15/2025 5:45 AM EDT [facility] Basophils % 1 % LAB HEMATOLOGY METHOD 08/15/2025 5:45 AM EDT [facility] Immature Granulocytes % 3 % LAB HEMATOLOGY METHOD 08/15/2025 5:45 AM EDT [facility] Neutrophils Absolute 9.65(H) 1.60 - 6.10 10*3/uL LAB HEMATOLOGY METHOD 08/15/2025 5:45 AM EDT [facility] Lymphocytes Absolute 0.59(L) 1.20 - 3.90 10*3/uL LAB HEMATOLOGY METHOD 08/15/2025 5:45 AM EDT [facility] Monocytes Absolute 0.76 0.30 - 0.90 10*3/uL LAB HEMATOLOGY METHOD 08/15/2025 5:45 AM EDT [facility] Eosinophils Absolute 0.03 0.00 - 0.50 10*3/uL LAB HEMATOLOGY METHOD 08/15/2025 5:45 AM EDT [facility] Basophils Absolute 0.08 0.00 - 0.10 10*3/uL LAB HEMATOLOGY METHOD 08/15/2025 5:45 AM EDT [facility] Immature Granulocytes Absolute 0.28(H) 0.00 - 0.06 10*3/uL LAB HEMATOLOGY METHOD 08/15/2025 5:45 AM EDT [facility] Blood Blood sample taken from central line / Unknown Venipuncture / Unknown 08/15/2025 4:20 AM EDT 08/15/2025 4:48 AM EDT Narrative [facility] - 08/15/2025 5:45 AM EDT Therapeutic decision making should be based on absolute values, rather than percentages. us Ana Rosa Fields MD LAB BLOOD ORDERABLES Final Resu lt [facility] [address] [place] [address] * (ABNORMAL) Comprehensive Metabolic Panel, Plasma (08/15/2025 4:20 AM EDT) Glucose, Plasma 95 74 - 99 mg/dL 08/15/2025 5:16 AM EDT [facility] BUN, Plasma 30(H) 8 - 23 mg/dL 08/15/2025 5:16 AM EDT [facility] Creatinine, Plasma 1.36(H) 0.70 - 1.20 mg/dL 08/15/2025 5:16 AM EDT [facility] BUN/Creatinine Ratio 22 08/15/2025 5:16 AM EDT [facility] Sodium, Plasma 131(L) 136 - 145 mmol/L 08/15/2025 5:16 AM EDT [facility] Potassium, Plasma 3.5(L) 3.6 - 4.9 mmol/L 08/15/2025 5:16 AM EDT [facility] Chloride, Plasma 99 97 - 107 mmol/L 08/15/2025 5:16 AM EDT [facility] CO2, Plasma 20(L) 22 - 29 mmol/L 08/15/2025 5:16 AM EDT [facility] Anion Gap 12 6 - 16 mmol/L 08/15/2025 5:16 AM EDT [facility] Total Calcium, Plasma 7.7(L) 8.9 - 10.2 mg/dL 08/15/2025 5:16 AM EDT [facility] Total Protein 5.2(L) 6.3 - 7.9 g/dL 08/15/2025 5:16 AM EDT [facility] Albumin, Plasma 2.3(L) 3.5 - 5.2 g/dL 08/15/2025 5:16 AM EDT [facility] AST, Plasma 20 10 - 50 U/L 08/15/2025 5:16 AM EDT [facility] ALT, Plasma 18 10 - 50 U/L 08/15/2025 5:16 AM EDT [facility] Alkaline Phosphatase, Plasma 54 40 - 115 U/L 08/15/2025 5:16 AM EDT [facility] Total Bilirubin, Plasma 0.5 0.2 - 1.1 mg/dL 08/15/2025 5:16 AM EDT [facility] eGFRcr 56.0 mL/min/1.7 3m*2 08/15/2025 5:16 AM EDT [facility] Comment:Reported eGFRcr in m L/min/1.73m2 is based the CKD-EPI 2020 equation that does not use a race coefficient. Blood Blood sample taken from central line / Unknown Venipuncture / Unknown 08/15/2025 4:20 AM EDT 08/15/2025 4:46 AM EDT Ana Rosa Fields MD LAB BLOOD ORDERABLES Final Resu lt Performing Organization Address [facility]/ZIP Co de Phone Number [facility] [address] [place] [address] * Magnesium, Plasma (08/15/2025 4:20 AM EDT) [facility] Magnesium, Plasma 2.1 1.9 - 2.4 mg/dL 08/15/2025 5:[address] [facility] Blood Blood sample taken from central line / Unknown Venipuncture / Unknown 08/15/2025 4:20 AM EDT 08/15/2025 4:46 AM EDT Ana Rosa Fields MD LAB BLOOD ORDERABLES Final Resu Performing Organization Address [facility] [place] [address] * (ABNORMAL) POCT glucose meter (08/14/2025 11:49 PM EDT) [facility] POCT Glucose 105(H) 74 - 99 mg/dL 08/14/2025 11:52 PM EDT [facility] Comment:Accuracy of a glucos e result obtained from a capillary whole blood specimen relies upon adequate, non-compromised capillary blood flow. If the capillary glucose result is not consistent with the patient's clinical signs and symptoms, glucose testing should be repeated with either an arterial or venous sample on the glucometer or sent to the main labortory for testing. Comment 08/14/2025 11:52 PM EDT [facility] A P Mechanic ID Jagdeep Delarosa [id number] 11:52 PM EDT [facility] Device ID [id number] 08/14/2025 11:52 PM EDT [facility] Specimen Type POC Capillary 08/14/2025 11:52 PM EDT [facility] Blood Capillary blood specimen / Unknown 08/14/2025 11:49 PM EDT 08/14/2025 11:52 PM EDT Ana Rosa Fields MD LAB POINT OF CARE TE ST DOCKED DEVICE UNSOLICITED RESULTS Final Result [facility] [address] [place] [address] * Blood Culture (Aerobic/Anaerobet Set) (08/14/2025 11:06 AM EDT) Culture No growth at day 5 JULIO 08/19/2025 12:01 PM EDT [facility] Blood Structure of antecubital vein / Unknown Venipuncture / Unknown 08/14/2025 11:06 AM EDT 08/14/2025 11:37 AM EDT Ana Rosa Fields MD LAB MICROBIOLOGY - GENERAL ORDE SHARONA Final Result [facility] [address] [place] [address] * Blood Culture (Aerobic/Anaerobet Set) (08/14/2025 10:50 AM EDT) Culture No growth at day 5 JULIO 08/19/2025 12:01 PM EDT [facility] Blood Blood sample taken from central line / Unknown (Port) Long-term Catheter / Unknown 08/14/2025 10:50 AM EDT 08/14/2025 11:37 AM EDT Ana Rosa Fields MD LAB MICROBIOLOGY - GENERAL ORDE RABTIM Final Result [facility] [address] [place] [address] * Clostridium difficile EIA (08/14/2025 10:21 AM EDT) C difficile EIA Interpretation C. difficile infection not likely. May represent colonization . Negative 08/15/2025 10:42 AM EDT [facility] Toxin Result Negative Negative 08/15/2025 10:42 AM EDT [facility] GDH Result Positive Negative 08/15/2025 10:42 AM EDT [facility] Stool Rectum structure / Unknown Non-blood Collection / Unknown 08/14/2025 10:21 AM EDT 08/14/2025 11:27 AM EDT Narrative [facility] - 08/15/2025 10:42 AM EDT This toxin/GDH assay was reflexed from a positive C. difficile PCR result. us Kalina Crandall MD LAB MICROBIOLOGY - GENERAL ORD ERABLES Final Result Performing Organization Address City/[facility]/ZIP Co de Phone Number [facility] [address] [place] [address] * (ABNORMAL) Fecal Lactoferrin (08/14/2025 10:21 AM EDT) Fecal Lactoferrin Result Positive( A) Negative 08/14/2025 12:27 PM EDT [facility] Stool Rectum structure / Unknown Non-blood Collection / Unknown 08/14/2025 10:21 AM EDT 08/14/2025 11:27 AM EDT Narrative [facility] - 08/14/2025 12:27 PM EDT NOTE: If patient is a breastfed child, results may be falsely positive. us Kalina Crandall MD LAB MICROBIOLOGY - GENERAL ORD ERABLES Final Result Performing Organization Address [facility]/ZIP Co de Phone Number [facility] [address] [place] [address] * (ABNORMAL) Calprotectin, Stool (08/14/2025 10:21 AM EDT) CALPROTECTIN 1470(H) <=49 ug/g 08/17/2025 8:54 PM EDT [facility] Stool Stool specimen / Unknown Non-blood Collection / Unknown 08/14/2025 10:21 AM EDT 08/14/2025 11:27 AM EDT Narrative [facility] - 08/17/2025 8:54 PM EDT REFERENCE INTERVAL: Calprotectin, Fecal by Immunoassay Less than 50 ug/g........Normal 50-120 ug/g..............Borderline elevated, test should be re-evaluated in 4-6 weeks. 121 ug/g or greater......Elevated Performed By: [facility] [address] [place] [address] Upholstery Handler: Kirk Camara MD, PhD CLIA Number: [id number] us Kalina Crandall MD LAB BODY FLUIDS AND STOOLS ORD ERABLES Final Result [facility] [address] [place] [address] * Comprehensive GI Panel by PCR (08/14/2025 10:21 AM EDT) Campylobacter PCR Result Not Detected Not Detected 08/15/2025 8:11 AM EDT [facility] Plesiomonas shigelloides PCR Result Not Detected Not Detected 08/15/2025 8:11 AM EDT [facility] Salmonella PCR Result Not Detected Not Detected 08/15/2025 8:11 AM EDT [facility] Vibrio species PCR Result Not Detected Not Detected 08/15/2025 8:11 AM EDT [facility] Vibrio cholerae PCR Result Not Detected Not Detected 08/15/2025 8:11 AM EDT [facility] Yersinia enterocolitica PCR Result Not Detected Not Detected 08/15/2025 8:11 AM EDT [facility] Enteroaggregative E. coli (EAEC) PCR Result Not Detected Not Detected 08/15/2025 8:11 AM EDT [facility] Enteropathogenic E. coli (EPEC) PCR Result Not Detected Not Detected 08/15/2025 8:11 AM EDT [facility] Enterotoxigenic E. coli (ETEC) lt/st PCR Result Not Detected Not Detected 08/15/2025 8:11 AM EDT [facility] Shiga-like Toxin-Producing E.coli (STEC) stx1/stx2 PCR Resu Not Detected Not Detected 08/15/2025 8:11 AM EDT [facility] E coli 0157 PCR Result Not Detected Not Detected 08/15/2025 8:11 AM EDT [facility] Shigella/Enteroinvas jenaro E. coli (EIEC) PCR Result Not Detected Not Detected 08/15/2025 8:11 AM EDT [facility] Cryptosporidium PCR Result Not Detected Not Detected 08/15/2025 8:11 AM EDT [facility] Cyclospora cayetanensis PCR Result Not Detected Not Detected 08/15/2025 8:11 AM EDT [facility] Entamoeba histolytica PCR Result Not Detected Not Detected 08/15/2025 8:11 AM EDT [facility] Giardia duodenalis (aka Giardia lamblia) PCR Result Not Detected Not Detected 08/15/2025 8:11 AM EDT [facility] Adenovirus F 40/41 PCR Result Not Detected Not Detected 08/15/2025 8:11 AM EDT [facility] Astrovirus PCR Result Not Detected Not Detected 08/15/2025 8:11 AM EDT [facility] Norovirus GI/GII PCR Result Not Detected Not Detected 08/15/2025 8:11 AM EDT [facility] Rotavirus A PCR Result Not Detected Not Detected 08/15/2025 8:11 AM EDT [facility] Sapovirus PCR Result Not Detected Not Detected 08/15/2025 8:11 AM EDT [facility] Stool Rectum structure / Unknown Non-blood Collection / Unknown 08/14/2025 10:21 AM EDT 08/14/2025 11:27 AM EDT [facility] - 08/15/2025 8:11 AM EDT This specimen was tested for the following analytes: Campylobacter species, Plesiomonas shigelloides, Salmonella species, Vibrio species, Vibrio cholerae, Yersinia enterolitica, Enteroaggregative E. coli (EAEC), Enteropathogenic E. Coli (EPEC), Enterotoxigenic E. coli (ETEC), Shiga-like toxin-producing E. coli (STEC), Shigella/Enteroinvasive E. coli (EIEC), Cryptosporidium, Cyclospora cayetanensis, Entamoeba histolytica, Giardia lamblia, Adenovirus f40/41, Astrovirus, Norovirus GI/GII, Rotavirus A, and Sapovirus. Note: Clostridium difficile toxin a/b will no longer be resulted using this platform. Please order the Clostridium difficile by PCR assay if clinically indicated. Kalina Crandall MD LAB MICROBIOLOGY - GENERAL ORD ERABLES Final Result Performing Organization Address [facility]/ZIP Co de Phone Number [facility] [address] [place] [address] * (ABNORMAL) Clostridiodes (Clostridium) difficile PCR (08/14/2025 10:21 AM EDT) C difficile PCR toxin B gene DNA Result Detected, Reflex GDH/Toxin antigen test pending, see CDEIA for final result.(A) Not Detected 08/14/2025 12:[address] [facility] Comment:Reflex GDH/Toxin ant igen test pending, see CDEIA for final result. Stool Rectum structure / Unknown Non-blood Collection / Unknown 08/14/2025 10:21 AM EDT 08/14/2025 11:27 AM EDT Narrative [facility] - 08/14/2025 12:34 PM EDT This test is FDA approved for use with liquid stool specimens. This test is used for clinical purposes. It should not be regarded as investigational or for research. This laboratory is certified under the Clinical Laboratory Improvement Amendments of 1988 (CLIA-88) as qualified to perform high complexity clinical laboratory testing. us Kalina Crandall MD LAB MICROBIOLOGY - GENERAL ORD ERABLES Final Result Performing Organization Address City/[facility]/ZIP Co de Phone Number [facility] [address] [place] [address] * (ABNORMAL) Sodium (08/14/2025 5:24 AM EDT) Sodium, Plasma 130(L) 136 - 145 mmol/L 08/14/2025 5:[address] [facility] Blood Venous blood specimen / Unknown Venipuncture / Unknown 08/14/2025 5:24 AM EDT 08/14/2025 5:35 AM EDT us Karlos Castañeda MD LAB BLOOD ORDERABLES Final R esult [facility] [address] [place] [address] * (ABNORMAL) CBC and Differential (08/14/2025 5:24 AM EDT) WBC Count 10.82(H) 3.70 - 10.30 10*3/uL LAB HEMATOLOGY METHOD 08/14/2025 6:19 AM EDT [facility] RBC Count 3.62(L) 4.60 - 6.10 10*6/uL LAB HEMATOLOGY METHOD 08/14/2025 6:19 AM EDT [facility] HGB 11.1(L) 13.7 - 17.5 g/dL LAB HEMATOLOGY METHOD 08/14/2025 6:19 AM EDT [facility] HCT 32.1(L) 40.0 - 51.0 % LAB HEMATOLOGY METHOD 08/14/2025 6:19 AM EDT [facility] Platelet Count 199 155 - 369 10*3/uL LAB HEMATOLOGY METHOD 08/14/2025 6:19 AM EDT [facility] MCV 89 79 - 98 fL LAB HEMATOLOGY METHOD 08/14/2025 6:19 AM EDT [facility] MCH 30.7 26.0 - 32.0 pg LAB HEMATOLOGY METHOD 08/14/2025 6:19 AM EDT [facility] MCHC 34.6 30.7 - 35.5 g/dL LAB HEMATOLOGY METHOD 08/14/2025 6:19 AM EDT [facility] RDW 12.3 11.5 - 14.5 % LAB HEMATOLOGY METHOD 08/14/2025 6:19 AM EDT [facility] MPV 11.3 8.8 - 12.5 fL LAB HEMATOLOGY METHOD 08/14/2025 6:19 AM EDT [facility] nRBC 1.7(H) <=0.0 per 100 WBCs LAB HEMATOLOGY METHOD 08/14/2025 6:19 AM EDT [facility] Differential Type Automated LAB HEMATOLOGY METHOD 08/14/2025 6:19 AM EDT [facility] Neutrophils % 76 % LAB HEMATOLOGY METHOD 08/14/2025 6:19 AM EDT [facility] Lymphocytes % 7 % LAB HEMATOLOGY METHOD 08/14/2025 6:19 AM EDT [facility] Monocytes % 14 % LAB HEMATOLOGY METHOD 08/14/2025 6:19 AM EDT [facility] Eosinophils % 0 % LAB HEMATOLOGY METHOD 08/14/2025 6:19 AM EDT [facility] Basophils % 1 % LAB HEMATOLOGY METHOD 08/14/2025 6:19 AM EDT [facility] Immature Granulocytes % 2 % LAB HEMATOLOGY METHOD 08/14/2025 6:19 AM EDT [facility] Neutrophils Absolute 8.35(H) 1.60 - 6.10 10*3/uL LAB HEMATOLOGY METHOD 08/14/2025 6:19 AM EDT [facility] Lymphocytes Absolute 0.73(L) 1.20 - 3.90 10*3/uL LAB HEMATOLOGY METHOD 08/14/2025 6:19 AM EDT [facility] Monocytes Absolute 1.46(H) 0.30 - 0.90 10*3/uL LAB HEMATOLOGY METHOD 08/14/2025 6:19 AM EDT [facility] Eosinophils Absolute 0.02 0.00 - 0.50 10*3/uL LAB HEMATOLOGY METHOD 08/14/2025 6:19 AM EDT [facility] Basophils Absolute 0.08 0.00 - 0.10 10*3/uL LAB HEMATOLOGY METHOD 08/14/2025 6:19 AM EDT [facility] Immature Granulocytes Absolute 0.18(H) 0.00 - 0.06 10*3/uL LAB HEMATOLOGY METHOD 08/14/2025 6:19 AM EDT [facility] Blood Venous blood specimen / Unknown Venipuncture / Unknown 08/14/2025 5:24 AM EDT 08/14/2025 5:35 AM EDT [facility] - 08/14/2025 6:19 AM EDT Therapeutic decision making should be based on absolute values, rather than percentages. us Karlos Castañeda MD LAB BLOOD ORDERABLES Final R esult [facility] [address] [place] [address] * Phosphorus (08/13/2025 11:58 PM EDT) Phosphorus, Plasma 2.6 2.5 - 4.5 mg/dL 08/14/2025 12:41 AM EDT [facility] Blood Venous blood specimen / Unknown Venipuncture / Unknown 08/13/2025 11:58 PM EDT 08/14/2025 12:11 AM EDT us Karlos Castañeda MD LAB BLOOD ORDERABLES Final R esult [facility] [address] [place] [address] * (ABNORMAL) Magnesium, Plasma (08/13/2025 11:58 PM EDT) Magnesium, Plasma 2.6(H) 1.9 - 2.4 mg/dL 08/14/2025 12:41 AM EDT [facility] Blood Venous blood specimen / Unknown Venipuncture / Unknown 08/13/2025 11:58 PM EDT 08/14/2025 12:11 AM EDT us Karlos Castañeda MD LAB BLOOD ORDERABLES Final R esult [facility] [address] [place] [address] * (ABNORMAL) Basic metabolic panel (08/13/2025 11:58 PM EDT) Glucose, Plasma 103(H) 74 - 99 mg/dL 08/14/2025 12:41 AM EDT [facility] BUN, Plasma 34(H) 8 - 23 mg/dL 08/14/2025 12:41 AM EDT [facility] Creatinine, Plasma 1.49(H) 0.70 - 1.20 mg/dL 08/14/2025 12:41 AM EDT [facility] BUN/Creatinine Ratio 23 08/14/2025 12:41 AM EDT [facility] Sodium, Plasma 133(L) 136 - 145 mmol/L 08/14/2025 12:41 AM EDT [facility] Potassium, Plasma 4.6 3.6 - 4.9 mmol/L 08/14/2025 12:41 AM EDT [facility] Comment:Hemolyzed, result ma y be falsely increased. Chloride, Plasma 100 97 - 107 mmol/L 08/14/2025 12:41 AM EDT [facility] CO2, Plasma 21(L) 22 - 29 mmol/L 08/14/2025 12:41 AM EDT [facility] Anion Gap 12 6 - 16 mmol/L 08/14/2025 12:41 AM EDT [facility] Total Calcium, Plasma 8.5(L) 8.9 - 10.2 mg/dL 08/14/2025 12:41 AM EDT [facility] eGFRcr 50.2 mL/min/1.7 3m*2 08/14/2025 12:41 AM EDT [facility] Comment:Reported eGFRcr in m L/min/1.73m2 is based the CKD-EPI 2020 equation that does not use a race coefficient. Blood Venous blood specimen / Unknown Venipuncture / Unknown 08/13/2025 11:58 PM EDT 08/14/2025 12:11 AM EDT us Karlos Castañeda MD LAB BLOOD ORDERABLES Final R esult Performing Organization Address City/[facility]/ZIP Co de Phone Number [facility] [address] [place] [address] * (ABNORMAL) Sodium (08/13/2025 8:16 PM EDT) Sodium, Plasma 128(L) 136 - 145 mmol/L 08/13/2025 8:44 PM EDT [facility] Blood Venous blood specimen / Unknown Venipuncture / Unknown 08/13/2025 8:16 PM EDT 08/13/2025 8:22 PM EDT us Karlos Castañeda MD LAB BLOOD ORDERABLES Final R esult [facility] [address] [place] [address] * Osmolality, urine (08/13/2025 7:39 PM EDT) Osmolality, Urine 918 50 - 1,200 mOsm/kg 08/13/2025 8:[address] [facility] Urine Urine specimen obtained by clean catch procedure / Unknown Non-blood Collection / Unknown 08/13/2025 7:39 PM EDT 08/13/2025 7:55 PM EDT us Karlos Castañeda MD LAB URINE ORDERABLES Final R esult [facility] [address] [place] [address] * Sodium, urine, random (08/13/2025 7:39 PM EDT) Sodium, Urine <20 mmol/L 08/13/2025 8:[address] [facility] Urine Urine specimen obtained by clean catch procedure / Unknown Non-blood Collection / Unknown 08/13/2025 7:39 PM EDT 08/13/2025 7:52 PM EDT us Karlos Castañeda MD LAB URINE ORDERABLES Final R esult [facility] [address] [place] [address] * Troponin T, High Sensitivity, 2 Hour, Plasma (08/13/2025 3:27 PM EDT) Troponin T, High Sensitivity, 2 Hour 18 <19 ng/L 08/13/2025 4:00 PM EDT [facility] Troponin Delta 3 <10 ng/L 08/13/2025 4:00 PM EDT [facility] Troponin Delta Interpretation Not Significant 08/13/2025 4:00 PM EDT [facility] Comment:Not Significant. No acute change in troponin observed between the baseline and 2 hour samples. Blood Venous blood specimen / Unknown Venipuncture / Unknown 08/13/2025 3:27 PM EDT 08/13/2025 3:38 PM EDT us Kalina Crandall MD LAB BLOOD ORDERABLES Final Res ult Performing Organization Address [facility] Co de Phone Number [facility] [address] [place] [address] * (ABNORMAL) Phosphorus (08/13/2025 1:24 PM EDT) Phosphorus, Plasma 2.4(L) 2.5 - 4.5 mg/dL 08/13/2025 6:31 PM EDT [facility] Blood Venous blood specimen / Unknown Venipuncture / Unknown 08/13/2025 1:24 PM EDT 08/13/2025 1:29 PM EDT us Karlos Castañeda MD LAB BLOOD ORDERABLES Final R esult Performing Organization Address [facility] Co de Phone Number [facility] [address] [place] [address] * (ABNORMAL) Osmolality (08/13/2025 1:24 PM EDT) Pathologist [facility] Osmolality, Serum 277(L) 280 - 301 mOsm/Kg 08/13/2025 5:29 PM EDT [facility] Blood Venous blood specimen / Unknown Venipuncture / Unknown 08/13/2025 1:24 PM EDT 08/13/2025 1:29 PM EDT us Karlos Castañeda MD LAB BLOOD ORDERABLES Final R esult Performing Organization Address [facility] Co de Phone Number [facility] [address] [place] [address] * ED HIV 1/2 Antibody/Antigen Screen w/Reflex to HIV 1/2 Differentiation (08/13/2025 1:24 PM EDT) Pathologist [facility] HIV 1 & 2 Antibody/Antigen Screen Non Reactive Non Reactive 08/13/2025 2:30 PM EDT [facility] Comment:Screening for HIV 1 & 2 antibodies, and P24 antigen is NONREACTIVE. No confirmatory testing is required. Blood Venous blood specimen / Unknown Venipuncture / Unknown 08/13/2025 1:24 PM EDT 08/13/2025 1:37 PM EDT us Kalina Crandall MD LAB BLOOD ORDERABLES Final Res ult Performing Organization Address [facility] Co de Phone Number [facility] [address] [place] [address] * (ABNORMAL) C-Reactive protein (08/13/2025 1:24 PM EDT) CRP, Plasma 294.3(H) <=8.0 mg/L 08/13/2025 1:55 PM EDT [facility] Blood Venous blood specimen / Unknown Venipuncture / Unknown 08/13/2025 1:24 PM EDT 08/13/2025 1:29 PM EDT Narrative [facility] - 08/13/2025 1:55 PM EDT This CRP test is appropriate for assessment of infection, systemic inflammation and/or tissue injury. To assess cardiovascular disease risk order high sensitivity CRP (CRPH). us Kalina Crandall MD LAB BLOOD ORDERABLES Final Res ult Performing Organization Address [facility] Phone Number [facility] [address] [place] [address] * (ABNORMAL) BNP (08/13/2025 1:24 PM EDT) N-Terminal, PROBNP, Plasma 7,989(H) 0 - 899 pg/mL 08/13/2025 1:55 PM EDT [facility] Blood Venous blood specimen / Unknown Venipuncture / Unknown 08/13/2025 1:24 PM EDT 08/13/2025 1:29 PM EDT us Kalina Crandall MD LAB BLOOD ORDERABLES Final Res ult Performing Organization Address [facility] Co de Phone Number [facility] [address] [place] [address] * Hepatitis C Antibody - ED (08/13/2025 1:24 PM EDT) [facility] Hepatitis C Antibody Negative Negative 08/13/2025 2:30 PM EDT [facility] Blood Venous blood specimen / Unknown Venipuncture / Unknown 08/13/2025 1:24 PM EDT 08/13/2025 1:37 PM EDT us Kalina Crandall MD LAB BLOOD ORDERABLES Final Res ult Performing Organization Address [facility]/ZIP Co de Phone Number [facility] [address] [place] [address] * (ABNORMAL) Troponin now and 120 min (08/13/2025 1:24 PM EDT) [facility] Troponin T, High Sensitivity, 0 Hour 21(H) <19 ng/L 08/13/2025 1:54 PM EDT [facility] Blood Venous blood specimen / Unknown Venipuncture / Unknown 08/13/2025 1:24 PM EDT 08/13/2025 1:29 PM EDT us Kalina Crandall MD LAB BLOOD ORDERABLES Final Res ult Performing Organization Address [facility] [place] [address] * (ABNORMAL) Magnesium (08/13/2025 1:24 PM EDT) [facility] Magnesium, Plasma 1.7(L) 1.9 - 2.4 mg/dL 08/13/2025 1:55 PM EDT [facility] Blood Venous blood specimen / Unknown Venipuncture / Unknown 08/13/2025 1:24 PM EDT 08/13/2025 1:29 PM EDT us Kalina Crandall MD LAB BLOOD ORDERABLES Final Res ult Performing Organization Address [facility]/ZIP Co de Phone Number [facility] [address] [place] [address] * (ABNORMAL) Lipase (08/13/2025 1:24 PM EDT) Lipase, Plasma 6(L) 19 - 63 U/L 08/13/2025 1:55 PM EDT [facility] Blood Venous blood specimen / Unknown Venipuncture / Unknown 08/13/2025 1:24 PM EDT 08/13/2025 1:29 PM EDT us Kalina Crandall MD LAB BLOOD ORDERABLES Final Res ult [facility] [address] [place] [address] * (ABNORMAL) CMP (08/13/2025 1:24 PM EDT) Glucose, Plasma 105(H) 74 - 99 mg/dL 08/13/2025 1:55 PM EDT [facility] BUN, Plasma 28(H) 8 - 23 mg/dL 08/13/2025 1:55 PM EDT [facility] Creatinine, Plasma 1.41(H) 0.70 - 1.20 mg/dL 08/13/2025 1:55 PM EDT [facility] BUN/Creatinine Ratio 20 08/13/2025 1:55 PM EDT [facility] Sodium, Plasma 130(L) 136 - 145 mmol/L 08/13/2025 1:55 PM EDT [facility] Potassium, Plasma 3.7 3.6 - 4.9 mmol/L 08/13/2025 1:55 PM EDT [facility] Chloride, Plasma 100 97 - 107 mmol/L 08/13/2025 1:55 PM EDT [facility] CO2, Plasma 17(L) 22 - 29 mmol/L 08/13/2025 1:55 PM EDT [facility] Anion Gap 13 6 - 16 mmol/L 08/13/2025 1:55 PM EDT [facility] Total Calcium, Plasma 7.1(L) 8.9 - 10.2 mg/dL 08/13/2025 1:55 PM EDT [facility] Total Protein 4.8(L) 6.3 - 7.9 g/dL 08/13/2025 1:55 PM EDT [facility] Albumin, Plasma 2.2(L) 3.5 - 5.2 g/dL 08/13/2025 1:55 PM EDT [facility] AST, Plasma 14 10 - 50 U/L 08/13/2025 1:55 PM EDT [facility] Comment:Hemolyzed, result ma y be falsely increased. ALT, Plasma 15 10 - 50 U/L 08/13/2025 1:55 PM EDT [facility] Alkaline Phosphatase, Plasma 51 40 - 115 U/L 08/13/2025 1:55 PM EDT [facility] Total Bilirubin, Plasma 0.6 0.2 - 1.1 mg/dL 08/13/2025 1:55 PM EDT [facility] eGFRcr 53.6 mL/min/1.7 3m*2 08/13/2025 1:55 PM EDT [facility] Comment:Reported eGFRcr in m L/min/1.73m2 is based the CKD-EPI 2020 equation that does not use a race coefficient. Blood Venous blood specimen / Unknown Venipuncture / Unknown 08/13/2025 1:24 PM EDT 08/13/2025 1:29 PM EDT us Kalina Crandall MD LAB BLOOD ORDERABLES Final Res ult [facility] [address] [place] [address] * (ABNORMAL) CBC w/diff (08/13/2025 1:24 PM EDT) WBC Count 5.96 3.70 - 10.30 10*3/uL LAB HEMATOLOGY METHOD 08/13/2025 2:57 PM EDT [facility] RBC Count 3.89(L) 4.60 - 6.10 10*6/uL LAB HEMATOLOGY METHOD 08/13/2025 2:57 PM EDT [facility] HGB 11.9(L) 13.7 - 17.5 g/dL LAB HEMATOLOGY METHOD 08/13/2025 2:57 PM EDT [facility] HCT 34.3(L) 40.0 - 51.0 % LAB HEMATOLOGY METHOD 08/13/2025 2:57 PM EDT [facility] Platelet Count 149(L) 155 - 369 10*3/uL LAB HEMATOLOGY METHOD 08/13/2025 2:57 PM EDT [facility] MCV 88 79 - 98 fL LAB HEMATOLOGY METHOD 08/13/2025 2:57 PM EDT [facility] MCH 30.6 26.0 - 32.0 pg LAB HEMATOLOGY METHOD 08/13/2025 2:57 PM EDT [facility] MCHC 34.7 30.7 - 35.5 g/dL LAB HEMATOLOGY METHOD 08/13/2025 2:57 PM EDT [facility] RDW 12.1 11.5 - 14.5 % LAB HEMATOLOGY METHOD 08/13/2025 2:57 PM EDT [facility] MPV 10.9 8.8 - 12.5 fL LAB HEMATOLOGY METHOD 08/13/2025 2:57 PM EDT [facility] nRBC 1.3(H) <=0.0 per 100 WBCs LAB HEMATOLOGY METHOD 08/13/2025 2:57 PM EDT [facility] Differential Type Automated LAB HEMATOLOGY METHOD 08/13/2025 2:57 PM EDT [facility] Neutrophils % 72 % LAB HEMATOLOGY METHOD 08/13/2025 2:57 PM EDT [facility] Lymphocytes % 5 % LAB HEMATOLOGY METHOD 08/13/2025 2:57 PM EDT [facility] Monocytes % 18 % LAB HEMATOLOGY METHOD 08/13/2025 2:57 PM EDT [facility] Eosinophils % 0 % LAB HEMATOLOGY METHOD 08/13/2025 2:57 PM EDT [facility] Basophils % 1 % LAB HEMATOLOGY METHOD 08/13/2025 2:57 PM EDT [facility] Immature Granulocytes % 4 % LAB HEMATOLOGY METHOD 08/13/2025 2:57 PM EDT [facility] Neutrophils Absolute 4.25 1.60 - 6.10 10*3/uL LAB HEMATOLOGY METHOD 08/13/2025 2:57 PM EDT [facility] Lymphocytes Absolute 0.31(L) 1.20 - 3.90 10*3/uL LAB HEMATOLOGY METHOD 08/13/2025 2:57 PM EDT [facility] Monocytes Absolute 1.09(H) 0.30 - 0.90 10*3/uL LAB HEMATOLOGY METHOD 08/13/2025 2:57 PM EDT [facility] Eosinophils Absolute 0.01 0.00 - 0.50 10*3/uL LAB HEMATOLOGY METHOD 08/13/2025 2:57 PM EDT [facility] Basophils Absolute 0.07 0.00 - 0.10 10*3/uL LAB HEMATOLOGY METHOD 08/13/2025 2:57 PM EDT [facility] Immature Granulocytes Absolute 0.23(H) 0.00 - 0.06 10*3/uL LAB HEMATOLOGY METHOD 08/13/2025 2:57 PM EDT [facility] Blood Venous blood specimen / Unknown Venipuncture / Unknown 08/13/2025 1:24 PM EDT 08/13/2025 1:28 PM EDT Narrative [facility] - 08/13/2025 2:57 PM EDT Therapeutic decision making should be based on absolute values, rather than percentages. us Kalina Crandall MD LAB BLOOD ORDERABLES Final Res ult [facility] [address] [place] [address] documented in this encounter Visit Diagnoses Diagnosis Epigastric pain- Primary Abdominal pain, epigastric Epigastric pain Abdominal pain, epigastric Gastric adenocarcinoma (CMS/HCC) Malignant neoplasm of stomach, unspecified site Nausea vomiting and diarrhea Colitis Other and unspecified noninfectious gastroenteritis and colitis Atrial fibrillation, unspecified type (CMS/HCC) NSTEMI (non-ST elevated myocardial infarction) Acute myocardial infarction, subendocardial infarction, episode of care unspecified documented in this encounter Admitting Diagnoses Diagnosis Epigastric pain Abdominal pain, epigastric documented in this encounter Administered Medications Inactive Administered Medications - up to 3 most recent administrations Medication Order MAR Action Action Date Dose Rate Site acetaminophen (Tylenol) tablet 1,000 mg 1,000 mg, Oral, Every 6 hours PRN, Starting on 08/14/25 at 1425, Until 08/15/25 at 2153, Routine, mild pain apixaban (Eliquis) tablet 5 mg 5 mg, Oral, 2 times daily, First dose on 08/14/25 at 2100, Until Discontinued, Routine Given 08/15/2025 8:25 AM EDT 5 mg Given 08/14/2025 8:17 PM EDT 5 mg calcium gluconate 1 g in sodium chloride 0.9% 100 mL IVPB (vial adapter required) 1 g, Intravenous, Every 30 min, 2 doses, First dose on 08/13/25 at 1650, Last dose on 08/13/25 at 1720, at 240 mL/hr, Administer over 30 Minutes, Routine New Bag 08/13/2025 5:42 PM EDT 1 g 240 mL/hr New Bag 08/13/2025 4:57 PM EDT 1 g 240 mL/hr enoxaparin (Lovenox) syringe 40 mg 40 mg, Subcutaneous, Daily, First dose on 08/13/25 at 1615, Until Discontinued, Routine Given 08/14/2025 10:04 AM EDT 40 mg Left Lower Abdomen Given 08/13/2025 4:57 PM EDT 40 mg Le ft Lower Abdomen guaiFENesin (Robitussin) 100 MG/5ML solution 200 mg 200 mg, Oral, Every 4 hours PRN, Starting on 08/15/25 at 1633, Until 08/15/25 at 2153, Routine, cough Given 08/15/2025 4:45 PM EDT 200 mg heparin flush (porcine) 100 UNIT/ML injection 500 Units 500 Units, Intracatheter, Once, 1 dose, On 08/15/25 at 1900, Routine Given 08/15/2025 6:16 PM EDT 500 Units HYDROmorphone (Dilaudid) injection 0.5 mg 0.5 mg, Intravenous, Every 2 hour PRN, Starting on 08/13/25 at 1312, Until 08/13/25 at 1616, Routine, severe pain Given 08/13/2025 3:29 PM EDT 0. 5 mg HYDROmorphone (Dilaudid) injection 0.5 mg 0.5 mg, Intravenous, Every 2 hour PRN, Starting on 08/13/25 at 1615, Until 08/14/25 at 1416, Routine, severe pain, use for breakthrough pain, please do not give within 1 hour of oxycodone Given 08/14/2025 11:30 AM EDT 0.5 mg Given 08/14/2025 5:24 AM EDT 0.5 mg Given 08/14/2025 2:00 AM EDT 0.5 mg HYDROmorphone (Dilaudid) injection 0.5 mg 0.5 mg, Intravenous, Every 4 hours PRN, Starting on 08/14/25 at 1416, Until 08/15/25 at 1037, Routine, severe pain, use for breakthrough pain, please do not give within 1 hour of oxycodone Given 08/14/2025 10:08 PM EDT 0.5 mg isosorbide dinitrate (Isordil) tablet 10 mg 10 mg, Oral, 2 times daily (0600 &1400), First dose on 08/13/25 at 1735, Until Discontinued, Routine Given 08/15/2025 1:24 PM EDT 10 mg Given 08/15/2025 6:37 AM EDT 10 mg Given 08/14/2025 2:56 PM EDT 10 mg magnesium sulfate IVPB 2 g 2 g, Intravenous, Once, 1 dose, On 08/13/25 at 1650, Routine New Bag 08/13/2025 6:47 PM EDT 2 g 25 mL/hr melatonin tablet 9 mg 9 mg, Oral, Nightly PRN, Starting on 08/14/25 at 2032, Until 08/15/25 at 2153, Routine, sleep Given 08/14/2025 10:08 PM EDT 9 mg morphine PF 4 mg 4 mg, Intravenous, Once, 1 dose, On 08/13/25 at 1355, STAT Given 08/13/2025 2:20 PM EDT 4 mg mupirocin (Bactroban) 2 % ointment 1 Application Each Nostril, 2 times daily, 10 doses, First dose on 08/13/25 at 2100, Last dose on Marcela 08/18/25 at 0900, Routine Given 08/15/2025 8:25 AM EDT 1 Application Given 08/14/2025 8:20 PM EDT 1 Application Given 08/14/2025 10:03 AM EDT 1 Application ondansetron (Zofran) injection 4 mg 4 mg, Intravenous, Every 4 hours PRN, Starting on 08/13/25 at 1311, Until 08/15/25 at 2153, STAT, nausea, vomiting Given 08/13/2025 9:01 PM EDT 4 mg Given 08/13/2025 2:19 PM EDT 4 mg oxyCODONE (Roxicodone) immediate release tablet 5 mg 5 mg, Oral, Every 6 hours PRN, Starting on 08/13/25 at 1614, Until 08/14/25 at 1034, severe pain, moderate pain Given 08/14/2025 10:03 AM EDT 5 mg Given 08/13/2025 7:32 PM EDT 5 mg oxyCODONE (Roxicodone) immediate release tablet 5 mg 5 mg, Oral, Every 4 hours PRN, Starting on 08/14/25 at 1034, Until 08/15/25 at 2153, severe pain, moderate pain Given 08/15/2025 4:10 AM EDT 5 mg Given 08/14/2025 6:34 PM EDT 5 mg Given 08/14/2025 2:39 PM EDT 5 mg pantoprazole (Protonix) EC tablet 40 mg 40 mg, Oral, 2 times daily, First dose on 08/15/25 at 2100, Until Discontinued, Routine pantoprazole (Protonix) injection 40 mg 40 mg, Intravenous, Daily, First dose on 08/13/25 at 1620, Until Discontinued, Routine Given 08/15/2025 8:25 AM EDT 40 mg Given 08/14/2025 10:03 AM EDT 40 mg Given 08/13/2025 4:58 PM EDT 40 mg phosphorus (K Phos Neutral) tablet 2 tablet 2 tablet (500 mg), Oral, Once, 1 dose, On 08/13/25 at 1930, Routine Given 08/13/2025 7:32 PM EDT 2 tablets potassium chloride CR (Klor-Con) ER tablet 40 mEq 40 mEq, Oral, Once, 1 dose, On 08/15/25 at 0930, Routine Given 08/15/2025 9:23 AM EDT 40 mEq prochlorperazine (Compazine) injection 2.5 mg 2.5 mg, Intravenous, Every 6 hours PRN, Starting on 08/13/25 at 1615, Until 08/15/25 at 2153, Routine, nausea, vomiting prochlorperazine (Compazine) injection 5 mg 5 mg, Intramuscular, Every 6 hours PRN, Starting on 08/13/25 at 1615, Until 08/15/25 at 2153, Routine, nausea, vomiting prochlorperazine (Compazine) suppository 25 mg 25 mg, Rectal, Every 12 hours PRN, Starting on 08/13/25 at 1615, Until 08/15/25 at 2153, Routine, nausea, vomiting prochlorperazine (Compazine) tablet 5 mg 5 mg, Oral, Every 6 hours PRN, Starting on 08/13/25 at 1615, Until 08/15/25 at 2153, Routine, nausea, vomiting Given 08/14/2025 6:34 PM EDT 5 mg rosuvastatin (Crestor) tablet 10 mg 10 mg, Oral, Nightly, First dose on 08/13/25 at 2100, Until Discontinued Given 08/14/2025 8:17 PM EDT 10 mg Given 08/13/2025 9:00 PM EDT 10 mg sodium chloride 0.9 % flush 10 mL 10 mL, Intravenous, Every 12 hours, First dose on 08/13/25 at 1615, Until Discontinued, Routine Given 08/15/2025 1:24 PM EDT 10 mL Given 08/15/2025 3:46 AM EDT 10 mL Given 08/14/2025 3:30 PM EDT 10 mL sodium chloride 0.9 % flush 10 mL 10 mL, Intravenous, As needed, Starting on 08/13/25 at 1606, Until 08/15/25 at 2153, Routine, line care tamsulosin (Flomax) 24 hr capsule 0.4 mg 0.4 mg, Oral, Daily, First dose on 08/15/25 at 0900, Until Discontinued Given 08/15/2025 8:25 AM EDT 0.4 mg Vancomycin HCl 50 MG/ML oral solution 125 mg 125 mg, Oral, 4 times daily, First dose on 08/14/25 at 1400, Until Discontinued, Routine Given 08/14/2025 2:19 PM EDT 125 mg documented in this encounter Active and Recently Administered Medications Times are shown in EDT. Scheduled Medication Order 08/13/2025 08/14/2025 08/15/2025 apixaban (Eliquis) tablet 5 mg 5 mg, Oral, 2 times daily, First dose on Fri08/14/25 at 2100, Until Discontinued, Routine 2017 (Given - Provider: Oksana Santos, RN) 0825 (Given - Provider: Didi Goodson, RN)2100 (Canceled Entry - Provider: Automatic Discharge Provider - Comment: Automatically canceled at discontinue of medication order) calcium gluconate 1 g in sodium chloride 0.9% 100 mL IVPB (vial adapter required) (COMPLETED) 1 g, Intravenous, Every 30 min, 2 doses, First dose on 08/13/25 at 1650, Last dose on 08/13/25 at 1720, at 240 mL/hr, Administer over 30 Minutes, Routine 1657 (New Bag - Provider: Angelica Lee RN)1735 (Stopped - Provider: yN Payan RN)1742 (New Bag - Provider: Angelica Lee, RN)1828 (Stopped - Provider: Willis Martin, YAHAIRA) enoxaparin (Lovenox) syringe 40 mg (CANCELED) 40 mg, Subcutaneous, Daily, First dose on 08/13/25 at 1615, Until Discontinued, Routine 1657 (Given - Provider: Angelica Lee RN) 1004 (Given - Provider: Willis Tracy RN) heparin flush (porcine) 100 UNIT/ML injection 500 Units (COMPLETED) 500 Units, Intracatheter, Once, 1 dose, On 08/15/25 at 1900, Routine 1816 (Given - Provid er: Didi Goodson RN) isosorbide dinitrate (Isordil) tablet 10 mg 10 mg, Oral, 2 times daily (0600 &1400), First dose on 08/13/25 at 1735, Until Discontinued, Routine 2100 (Given - Provider: Ana Cristina Yo) 0524 (Given - Provider: Ana Cristina Yo)1456 (Given - Provider: Willis Martin, YAHAIRA) 0637 (Given - Provider: Oksana Santos RN)1324 (Given - Provider: Didi Goodson, YAHAIRA) magnesium sulfate IVPB 2 g (COMPLETED) 2 g, Intravenous, Once, 1 dose, On 08/13/25 at 1650, Routine 1847 (New Bag - Provider: Willis E Mario, RN) morphine PF 4 mg (COMPLETED) 4 mg, Intravenous, Once, 1 dose, On 08/13/25 at 1355, STAT 1420 (Given - Provider: Kirk Butt, YAHAIRA) mupirocin (Bactroban) 2 % ointment 1 Application Each Nostril, 2 times daily, 10 doses, First dose on 08/13/25 at 2100, Last dose on Marclea 08/18/25 at 0900, Routine 2100 (Given - Provider: Ana Cristina Yo) 1003 (Given - Provider: Willis Tracy, YAHAIRA)2019 (Given - Provider: Oksana Santos, YAHAIRA) 0825 (Given - Provider: Didi Goodson, YAHAIRA)2100 (Canceled Entry - Provider: Automatic Discharge Provider - Comment: Automatically canceled at discontinue of medication order) pantoprazole (Protonix) EC tablet 40 mg 40 mg, Oral, 2 times daily, First dose on 08/15/25 at 2100, Until Discontinued, Routine 2099 (Canceled Entry - Provider: Automatic Discharge Provider - Comment: Automatically canceled at discontinue of medication order) pantoprazole (Protonix) injection 40 mg (CANCELED) 40 mg, Intravenous, Daily, First dose on 08/13/25 at 1620, Until Discontinued, Routine 1658 (Given - Provider: Angelica Lee RN) 1003 (Given - Provider: Willis Tracy, YAHAIRA) 0825 (Given - Provider: Didi Goodson RN) phosphorus (K Phos Neutral) tablet 2 tablet (COMPLETED) 2 tablet (500 mg), Oral, Once, 1 dose, On 08/13/25 at 1930, Routine 1932 (Given - Provider: Ana Cristina Yo) potassium chloride CR (Klor-Con) ER tablet 40 mEq (COMPLETED) 40 mEq, Oral, Once, 1 dose, On 08/15/25 at 0930, Routine 0923 (Given - Provid er: Didi Goodson RN) rosuvastatin (Crestor) tablet 10 mg 10 mg, Oral, Nightly, First dose on 08/13/25 at 2100, Until Discontinued 2100 (Given - Provider: Ana Cristina Yo) 2016 (Given - Provider: Oksana Santos, YAHAIRA) 2100 (Canceled Entry - Provider: Automatic Discharge Provider - Comment: Automatically canceled at discontinue of medication order) sodium chloride 0.9 % flush 10 mL(Linked Group 1) 10 mL, Intravenous, Every 12 hours, First dose on 08/13/25 at 1615, Until Discontinued, Routine 1704 (Given - Provider: Angelica Lee, RN) 0201 (Given - Provider: Ana Cristina Yo)1530 (Given - Provider: Willis Martin, YAHAIRA) 0346 (Given - Provider: Oksana Santos, YAHAIRA)1324 (Given - Provider: Didi Goodson RN) tamsulosin (Flomax) 24 hr capsule 0.4 mg 0.4 mg, Oral, Daily, First dose on 08/15/25 at 0900, Until Discontinued 0825 (Given - Provid er: Didi Goodson RN) Vancomycin HCl 50 MG/ML oral solution 125 mg (CANCELED) 125 mg, Oral, 4 times daily, First dose on 08/14/25 at 1400, Until Discontinued, Routine 1419 (Given - Provider: Willis Martin RN) PRN Medication Order 08/13/2025 08/14/2025 08/15/2025 acetaminophen (Tylenol) tablet 1,000 mg 1,000 mg, Oral, Every 6 hours PRN, Starting on 08/14/25 at 1425, Until 08/15/25 at 2153, Routine, mild pain guaiFENesin (Robitussin) 100 MG/5ML solution 200 mg 200 mg, Oral, Every 4 hours PRN, Starting on 08/15/25 at 1633, Until 08/15/25 at 2153, Routine, cough 1645 (Given - Provider: Didi Goodson RN) HYDROmorphone (Dilaudid) injection 0.5 mg (CANCELED) 0.5 mg, Intravenous, Every 2 hour PRN, Starting on 08/13/25 at 1312, Until 08/13/25 at 1616, Routine, severe pain 1529 (Given - Provider: Angelica Lee RN) HYDROmorphone (Dilaudid) injection 0.5 mg (CANCELED) 0.5 mg, Intravenous, Every 2 hour PRN, Starting on 08/13/25 at 1615, Until 08/14/25 at 1416, Routine, severe pain, use for breakthrough pain, please do not give within 1 hour of oxycodone 2100 (Given - Provider: Ana Cristina Yo)2355 (Given - Provider: Ana Cristina Yo) 0200 (Given - Provider: Ana Cristina Yo)0524 (Given - Provider: Ana Cristina Yo)1130 (Given - Provider: Willis Martin RN) HYDROmorphone (Dilaudid) injection 0.5 mg (CANCELED) 0.5 mg, Intravenous, Every 4 hours PRN, Starting on 08/14/25 at 1416, Until 08/15/25 at 1037, Routine, severe pain, use for breakthrough pain, please do not give within 1 hour of oxycodone 2207 (Given - Provider: Oksana Santos, YAHAIRA) melatonin tablet 9 mg 9 mg, Oral, Nightly PRN, Starting on 08/14/25 at 2032, Until 08/15/25 at 2153, Routine, sleep 2208 (Given - Provider: Oksana Santos, YAHAIRA) ondansetron (Zofran) injection 4 mg 4 mg, Intravenous, Every 4 hours PRN, Starting on 08/13/25 at 1311, Until 08/15/25 at 2153, STAT, nausea, vomiting 1419 (Given - Provider: Kirk Butt RN)210 (Given - Provider: Ana Cristina Yo) oxyCODONE (Roxicodone) immediate release tablet 5 mg (CANCELED) 5 mg, Oral, Every 6 hours PRN, Starting on 08/13/25 at 1614, Until 08/14/25 at 1034, severe pain, moderate pain 1932 (Given - Provider: Ana Cristina Yo) 1003 (Given - Provider: Willis Tracy RN) oxyCODONE (Roxicodone) immediate release tablet 5 mg(Linked Group 2) 5 mg, Oral, Every 4 hours PRN, Starting on 08/14/25 at 1034, Until 08/15/25 at 2153, severe pain, moderate pain 1439 (Given - Provider: Willis Martin RN)1834 (Given - Provider: Willis Martin RN) 0410 (Given - Provider: Oksana Santos RN) prochlorperazine (Compazine) injection 2.5 mg(Linked Group 3) 2.5 mg, Intravenous, Every 6 hours PRN, Starting on 08/13/25 at 1615, Until 08/15/25 at 2153, Routine, nausea, vomiting 1834 (See Alternative - Provider: Willis Martin RN) prochlorperazine (Compazine) injection 5 mg(Linked Group 3) 5 mg, Intramuscular, Every 6 hours PRN, Starting on 08/13/25 at 1615, Until 08/15/25 at 2153, Routine, nausea, vomiting 1834 (See Alternative - Provider: Willis Martin RN) prochlorperazine (Compazine) suppository 25 mg(Linked Group 3) 25 mg, Rectal, Every 12 hours PRN, Starting on 08/13/25 at 1615, Until 08/15/25 at 2153, Routine, nausea, vomiting 1834 (See Alternative - Provider: Willis Martin RN) prochlorperazine (Compazine) tablet 5 mg(Linked Group 3) 5 mg, Oral, Every 6 hours PRN, Starting on 08/13/25 at 1615, Until 08/15/25 at 2153, Routine, nausea, vomiting 1834 (Given - Provider: Willis Martin RN) sodium chloride 0.9 % flush 10 mL(Linked Group 1) 10 mL, Intravenous, As needed, Starting on 08/13/25 at 1606, Until 08/15/25 at 2153, Routine, line care Linked Groups Order Group 1: Insert peripheral IV (COMPLETED) Once, On 08/13/25 at 1607, For 1 occurrence And Saline lock IV (COMPLETED) Once, On 08/13/25 at 1607, For 1 occurrence And sodium chloride 0.9 % flush 10 mLJump to med 10 mL, Intravenous, Every 12 hours, First dose on 08/13/25 at 1615, Until Discontinued, Routine And sodium chloride 0.9 % flush 10 mLJump to med 10 mL, Intravenous, As needed, Starting on 08/13/25 at 1606, Until 08/15/25 at 2153, Routine, line care Group 2: oxyCODONE (Roxicodone) immediate release tablet 5 mgJump to med 5 mg, Oral, Every 4 hours PRN, Starting on 08/14/25 at 1034, Until 08/15/25 at 2153, severe pain, moderate pain And acetaminophen (Tylenol) tablet 325 mg (CANCELED) 325 mg, Oral, Every 4 hours PRN, Starting on 08/14/25 at 1034, Until 08/14/25 at 1425, mild pain, moderate pain Group 3: prochlorperazine (Compazine) tablet 5 mgJump to med 5 mg, Oral, Every 6 hours PRN, Starting on 08/13/25 at 1615, Until Fri08/15/25 at 2153, Routine, nausea, vomiting Or prochlorperazine (Compazine) suppository 25 mgJump to med 25 mg, Rectal, Every 12 hours PRN, Starting on 08/13/25 at 1615, Until Fri08/15/25 at 2153, Routine, nausea, vomiting Or prochlorperazine (Compazine) injection 2.5 mgJump to med 2.5 mg, Intravenous, Every 6 hours PRN, Starting on 08/13/25 at 1615, Until Fri08/15/25 at 2153, Routine, nausea, vomiting Or prochlorperazine (Compazine) injection 5 mgJump to med 5 mg, Intramuscular, Every 6 hours PRN, Starting on 08/13/25 at 1615, Until Fri08/15/25 at 2153, Routine, nausea, vomiting documented in this encounter Additional Health Concerns Infection Onset Date Last Indicated Resolved Time C. difficile Rule-Out 08/13/2025 08/14/20252024 12:34 PM EDT Gastrointestinal Rule-Out 08/13/2025 08/14/2025 1:05 PM EDT C. 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
--- OUTSIDE RECORDS SUMMARY | 2025-08-18 08:31 | XMS_ITS | Encounter Summary ---
Author Organization [facility] Address [address] [place] [address] Care Team Providers Care Occupational Ther Name Role Phone Darius Ken MD Primary Care Provider [phone] Reason for Referral * Cardiac Stress Testing (Routine) - Closed Specialty Diagnoses / Procedures Referred By Contac t Referred To Contact Cardiology Diagnoses Atrial fibrillation, unspecified type (CMS/HCC) Procedures Adult Patch Monitor - 14 Day Ana Rosa Fields MD [address] [place] [address] Phone: tel: fax: Referral ID Status Reason Start Date Expiration Date Visits Re quested Visits Authorized [id number] Closed 08/15/2025 02/14/2027 1 1 Reason for Visit * Cardiac Stress Testing (Routine) - Closed Specialty Diagnoses / Procedures Referred By Contac t Referred To Contact Cardiology Diagnoses Atrial fibrillation, unspecified type (CMS/HCC) Procedures Adult Patch Monitor - 14 Day Ana Rosa Fields MD [address] [place] [address] Phone: tel: fax: Referral ID Status Reason Start Date Expiration Date Visits Re quested Visits Authorized [id number] Closed 08/15/2025 02/14/2027 1 1 Encounter Details Date Type Department Care Team (Latest Contact Info) Description 08/18/2025 8:31 AM EDT - 08/18/2025 11:59 AM EDT Hospital Encounter Cardiac Imaging [address] [place] [address] Atrial fibrillation, unspecified type (CMS/HCC) Discharge Disposition: Home or Self Care Social History Tobacco Use Types Packs/Day Years Used Date Smoking Tobacco: Never Smokeless Tobacco: Never Alcohol Use Standard Drinks/Week Comments Never 0 (1 standard drink = 0.6 oz pur e alcohol) PHQ-2 Answer Date Recorded Patient Health Questionnaire-2 Score 0 08/18/2025 PHQ-9 Answer Date Recorded Patient Health Questionnaire-9 Score 0 08/18/2025 Humiliation, Afraid, Rape, and Kick questionnair e [...] any time in the past 12 m [facility], were you homeless or living in a longterm (including now)? No 08/15/2025 [facility] Utilities Answer Date Recorded In the past 12 months has th [employer] electric, gas, oil, or water company threatened to shut off services in your home? No 08/15/2025 Sex and Gender Information Value Date Recorded Sex Assigned at Male 07/23/2024 9:40 AM EDT Legal Sex Male 8:50 PM EDT Gender Identity Male 07/23/2024 9:40 AM EDT Sexual Orientation Not on file documented as of this encounter Functional Status * Over the past 2 weeks, how often have you been bothered by any of the following problems? Question Answer Date of Assessment Author Little interest or pleasure in doing things Not at all 08/18/2025 11:58 AM Carolin Du CNA Feeling down, depressed, or hopeless Not at all 08/18/2025 11:58 AM Carolin Du CNA Patient Health Questionnaire-2 Score 0 08/18/2025 11:58 AM Carolin Du CNA * Question Answer Date of Assessment Author Trouble falling or staying asleep, or sleeping too much Not at all 08/18/2025 11:58 AM Carolin Du CNA Feeling tired or having little energy Not at all 08/18/2025 11:58 AM Carolin Du CNA Poor appetite or overeating Not at all 08/18/2025 11 :58 AM Carolin Du CNA Feeling bad about yourself - or that you are a failure or have let yourself or your family down Not at all 08/18/2025 11:58 AM Carolin Du CNA Trouble concentrating on things, such as reading the newspaper or watching television Not at all 08/18/2025 11:58 AM Carolin Du CNA Moving or speaking so slowly that other people could have noticed? Or the opposite - being so fidgety or restless that you have been moving around a lot more than usual. Not at all 08/18/2025 11:58 AM Carolin Du CNA Thoughts that you would be better off or hurting yourself in some way Not at all 08/18/2025 11:58 AM Carolin Du CNA Patient Health Questionnaire-9 Score 0 08/18/2025 11:58 AM Carolin Du CNA documented as of this encounter Medications at [...] for up to 3 days. 118 mL 08/18/20 documented as of this encounter Plan of Treatment Upcoming Encounters Date Type Department Care Team (Latest Contact Info) Description 09/01/2025 9:15 AM EDT Clinical Support [facility] Multidisciplinary Oncology Clinic [address] [place] [address] 09/01/2025 9:30 AM EDT Office Visit [facility] Multidisciplinary Oncology Clinic [address] [place] [phone] Aristides Reina MD [address] [place] [address] 09/01/2025 11:00 AM EDT Appointment [facility] Infusion Clinic [address] [place] [phone] 09/03/2025 10:30 AM EDT Appointment [facility] Infusion Clinic [address] [place] [address] 09/15/2025 9:30 AM EST Appointment [facility] Infusion Clinic [address] [place] [address] 09/17/2025 9:00 AM EST Appointment [facility] Infusion Clinic [address] [place] [phone] 09/21/2025 8:45 AM EST Office Visit [facility] [place] [address], [address] [place] [phone] Juarez Recinos MD [address] [place] [address] 09/28/2025 8:00 AM EST Appointment [facility] PET Scan [address] [place] [phone] 09/28/2025 9:00 AM EST Appointment [facility] PET Scan [address] [place] [address] 09/28/2025 10:15 AM EST Office Visit [facility] [address] [facility], [address]nd [place] [address] Kim Machado MD [address] [place] [address] 01/13/2026 12:00 PM EST Office Visit [facility] [address] [place] [address] Eros Mejia MD [address] [place] [address] Pending Results Name Type Priority Associated Diagnoses Date /Time Adult Patch Monitor - 14 Day Cardiac Services Routine Atrial fibrillation, unspecified type (CMS/HCC) 08/18/2025 8:56 AM EDT Scheduled Orders Name Type Priority Associated Diagnoses Orde r Schedule Adult Patch Monitor - 14 Day Cardiac Services Routine Atrial fibrillation, unspecified type (CMS/HCC) Once for 1 Occurrences starting 08/18/2025 until 08/18/2025 documented as of this encounter Visit Diagnoses Diagnosis Atrial fibrillation, unspecified type (CMS/HCC) documented in this encounter Additional Health Concerns Infection Onset Date Last Indicated Resolved Time C. difficile 08/14/2025 08/14/2025 Assessment Noted Time PHQ-9 Depression Total Score: 0 08/18/20 25 11:58 AM EDT A fall risk assessment has been complete d for the patient 08/18/2025 12:32 PM EDT A Body Mass Index follow-up plan has been documented for the patient 08/18/2025 5:54 PM EDT documented as of this encounter Care Teams Occupational Ther Relationship Specialty Start Date End Date Darius Ken MD [address] [place] [address] PCP - General Internal Medicine 08/23/24 documented as of this encounter
--- OUTSIDE RECORDS SUMMARY | 2025-08-18 10:30 | XMS_ITS | Encounter Summary ---
Author Organization [facility] Address [address] [place] [address] Care Team Providers Care Diaper Machine Tender Name Role Phone Darius Ken MD Primary Care Provider [phone] Encounter Details Date Type Department Care Team (Latest Contact Info) Description 08/18/2025 10:30 AM EDT Clinical Support [facility] Multidisciplinary Oncology Clinic [address] [place] [address] Kalina Emerson, RN Adenocarcinoma of gastroesophageal junction Social History Tobacco Use Types Packs/Day Years [...] any time in the past 12 m [facility], were you homeless or living in a fpc (including now)? 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 Feeling tired or having little energy Not at all 08/18/2025 11:58 AM EDT Carolin Harris CNA Poor appetite or overeating Not at all 08/18/2025 11 :58 AM EDT Carolin Harris CNA Feeling bad about yourself - or that you are a failure or have let yourself or your family down Not at all 08/18/2025 11:58 AM SHAHLAT Carolin Harris CNA Trouble concentrating on things, such as reading the newspaper or watching television Not at all 08/18/2025 11:58 AM EDT Carolin Harris CNA Moving or speaking so slowly that [...] Health Questionnaire-9 Score 0 08/18/2025 11:58 AM EDT Carolin Harris CNA documented as of this encounter Miscellaneous Notes * Progress Notes - Kalina Emerson, RN - 08/18/2025 10:30 AM EDT Port labs drawn documented in this encounter Plan of Treatment Upcoming Encounters Date Type Department Care Team (Latest Contact Info) Description 09/01/2025 9:15 AM EDT Clinical Support [facility]cology [facility] [address] [place] [address] 09/01/2025 9:30 AM EDT Office Visit [facility] [address] [place] [address] Aristides Reina MD [address] [place] [address] 09/01/2025 11:00 AM EDT Appointment [facility] Infusion [facility] 2 [address] [place] [phone] 09/03/2025 10:30 AM EDT Appointment [facility] 2 [address] [place] [address] 09/15/2025 9:30 AM EST Appointment [facility] 2 [address] [place] [address] 09/17/2025 9:00 AM EST Appointment [facility] 2 [address] [place] [address] 09/21/2025 8:45 AM EST Office Visit [facility] [facility] [address] [place] [address], [address] [place] [address] Juarez Recinos MD [address] [place] [address] 09/28/2025 8:00 AM EST Appointment [facility] PET Scan [address] [place] [address] 09/28/2025 9:00 AM EST Appointment [facility] PET Scan [address] [place] [address] 09/28/2025 10:15 AM EST Office Visit [facility] [address] [facility]nd [place] [address] Kim Machado MD [address] [facility] [address] [place] [address] 01/13/2026 12:00 PM EST Office Visit [facility] [address] [place] [address] Eros Mejia MD [address] [place] [address] documented as of this encounter Procedures Procedure Name Priority Date/Time Associated Diagnosis Comments CBC WITH AUTO DIFFERENTIAL Routine 08/18/2025 9:55 AM EDT Adenocarcinoma of gastroesophageal junction COMPREHENSIVE METABOLIC PANEL, PLASMA Routine 08/18/2025 9:55 AM EDT Adenocarcinoma of gastroesophageal junction documented in this encounter Results * (ABNORMAL) CBC and differential (08/18/2025 9:55 AM EDT) WBC Count 7.71 3.70 - 10.30 10*3/uL LAB HEMATOLOGY METHOD 08/18/2025 10:37 AM EDT [facility] RBC Count 3.49(L) 4.60 - 6.10 10*6/uL LAB HEMATOLOGY METHOD 08/18/2025 10:37 AM EDT [facility] HGB 10.5(L) 13.7 - 17.5 g/dL LAB HEMATOLOGY METHOD 08/18/2025 10:37 AM EDT [facility] HCT 31.7(L) 40.0 - 51.0 % LAB HEMATOLOGY METHOD 08/18/2025 10:37 AM EDT [facility] Platelet Count 276 155 - 369 10*3/uL LAB HEMATOLOGY METHOD 08/18/2025 10:37 AM EDT [facility] MCV 91 79 - 98 fL LAB HEMATOLOGY METHOD 08/18/2025 10:37 AM EDT [facility] MCH 30.1 26.0 - 32.0 pg LAB HEMATOLOGY METHOD 08/18/2025 10:37 AM EDT [facility] MCHC 33.1 30.7 - 35.5 g/dL LAB HEMATOLOGY METHOD 08/18/2025 10:37 AM EDT [facility] RDW 13.1 11.5 - 14.5 % LAB HEMATOLOGY METHOD 08/18/2025 10:37 AM EDT [facility] MPV 10.2 8.8 - 12.5 fL LAB HEMATOLOGY METHOD 08/18/2025 10:37 AM EDT [facility] nRBC 0.3(H) <=0.0 per 100 WBCs LAB HEMATOLOGY METHOD 08/18/2025 10:37 AM EDT [facility] Differential Type Automated LAB HEMATOLOGY METHOD 08/18/2025 10:37 AM EDT [facility] Neutrophils % 89 % LAB HEMATOLOGY METHOD 08/18/2025 10:37 AM EDT [facility] Lymphocytes % 7 % LAB HEMATOLOGY METHOD 08/18/2025 10:37 AM EDT [facility] Monocytes % 2 % LAB HEMATOLOGY METHOD 08/18/2025 10:37 AM EDT [facility] Eosinophils % 0 % LAB HEMATOLOGY METHOD 08/18/2025 10:37 AM EDT [facility] Basophils % 0 % LAB HEMATOLOGY METHOD 08/18/2025 10:37 AM EDT [facility] Immature Granulocytes % 2 % LAB HEMATOLOGY METHOD 08/18/2025 10:37 AM EDT [facility] Neutrophils Absolute 6.85(H) 1.60 - 6.10 10*3/uL LAB HEMATOLOGY METHOD 08/18/2025 10:37 AM EDT [facility] Lymphocytes Absolute 0.54(L) 1.20 - 3.90 10*3/uL LAB HEMATOLOGY METHOD 08/18/2025 10:37 AM EDT [facility] Monocytes Absolute 0.14(L) 0.30 - 0.90 10*3/uL LAB HEMATOLOGY METHOD 08/18/2025 10:37 AM EDT [facility] Eosinophils Absolute 0.00 0.00 - 0.50 10*3/uL LAB HEMATOLOGY METHOD 08/18/2025 10:37 AM EDT [facility] Basophils Absolute 0.02 0.00 - 0.10 10*3/uL LAB HEMATOLOGY METHOD 08/18/2025 10:37 AM EDT [facility] Immature Granulocytes Absolute 0.16(H) 0.00 - 0.06 10*3/uL LAB HEMATOLOGY METHOD 08/18/2025 10:37 AM EDT [facility] Blood Blood sample taken from central line / Unknown (Central Line) Existing Catheter / Unknown 08/18/2025 9:55 AM EDT 08/18/2025 10:35 AM EDT Narrative [facility] - 08/18/2025 10:37 AM EDT Therapeutic decision making should be based on absolute values, rather than percentages. us Que Gentile MD LAB BLOOD ORDERABLES Final R esult [facility] [address] [place] [address] * (ABNORMAL) Comprehensive metabolic panel (08/18/2025 9:55 AM EDT) Glucose, Plasma 161(H) 74 - 99 mg/dL 08/18/2025 11:15 AM EDT [facility] BUN, Plasma 24(H) 8 - 23 mg/dL 08/18/2025 11:15 AM EDT [facility] Creatinine, Plasma 1.18 0.70 - 1.20 mg/dL 08/18/2025 11:15 AM EDT [facility] BUN/Creatinine Ratio 20 08/18/2025 11:15 AM EDT [facility] Sodium, Plasma 138 136 - 145 mmol/L 08/18/2025 11:15 AM EDT [facility] Potassium, Plasma 4.2 3.6 - 4.9 mmol/L 08/18/2025 11:15 AM EDT [facility] Chloride, Plasma 107 97 - 107 mmol/L 08/18/2025 11:15 AM EDT [facility] CO2, Plasma 19(L) 22 - 29 mmol/L 08/18/2025 11:15 AM EDT [facility] Anion Gap 12 6 - 16 mmol/L 08/18/2025 11:15 AM EDT [facility] Total Calcium, Plasma 8.6(L) 8.9 - 10.2 mg/dL 08/18/2025 11:15 AM EDT [facility] Total Protein 5.8(L) 6.3 - 7.9 g/dL 08/18/2025 11:15 AM EDT [facility] Albumin, Plasma 3.0(L) 3.5 - 5.2 g/dL 08/18/2025 11:15 AM EDT [facility] AST, Plasma 35 10 - 50 U/L 08/18/2025 11:15 AM EDT [facility] ALT, Plasma 47 10 - 50 U/L 08/18/2025 11:15 AM EDT [facility] Alkaline Phosphatase, Plasma 60 40 - 115 U/L 08/18/2025 11:15 AM EDT [facility] Total Bilirubin, Plasma 0.4 0.2 - 1.1 mg/dL 08/18/2025 11:15 AM EDT [facility] eGFRcr 66.4 mL/min/1.7 3m*2 08/18/2025 11:15 AM EDT [facility] Comment:Reported eGFRcr in m L/min/1.73m2 is based the CKD-EPI 2021 equation that does not use a race coefficient. Blood Blood sample taken from central line / Unknown (Central Line) Existing Catheter / Unknown 08/18/2025 9:55 AM EDT 08/18/2025 10:44 AM EDT us Que Gentile MD LAB BLOOD ORDERABLES Final R esult [facility] [address] [place] [address] documented in this encounter Visit Diagnoses Diagnosis Adenocarcinoma of gastroesophageal junction documented in this encounter Additional Health Concerns [...] documented as of this encounter Care Teams Diaper Machine Tender Relationship Specialty Start Date End Date Darius Ken MD [address] [place] [address] PCP - General Internal Medicine 08/23/24 documented as of this encounter
--- OUTSIDE RECORDS SUMMARY | 2025-08-18 11:00 | XMS_ITS | Encounter Summary ---
Author Organization Healthcare Address [address] 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 No 08/15/2025 [facility] Utilities Answer Date Recorded In the [...] Sign Reading Time Taken Comments Blood Pressure 120/76 08/18/2025 12:03 PM EDT Pulse 64 08/18/2025 12:03 PM EDT Temperature 36.3 C (97.4 F) 08/18/2025 12:03 PM EDT Respiratory Rate 16 08/18/2025 12:0 3 PM EDT Oxygen Saturation 100% 08/18/2025 12: 03 PM EDT Inhaled Oxygen Concentration - - Weight 89.3 kg (196 lb 13.9 oz) 10/09/2 025 12:03 PM EDT Height 182.9 cm (6') 08/18/2025 12:03 PM EDT Body Mass Index 26.7 08/18/2025 12:03 PM EDT documented in this encounter Functional Status * Over the [...] Du CNA documented as of this encounter Miscellaneous Notes * Progress Notes - Nini Eason MD - 08/18/2025 11:00 AM EDT Images from the original note were not included. Oncology Clinic Initial Visit Patient Name: Justin Best Date of : 1955 Referring Physician:No referring provider defined for this encounter. Encounter Date: 07/21/2025 Chief Complaint: Establish care regarding recently diagnosed GEJ adenocarcinoma History of present illness: Mr. Best is a 69-year-old male with a relevant past medical history of hypertension who presents to [facility] clinic today to establish care for recently [...] immuno reaction (MLH1 promoter methylation study pending). Tolerated cycle 1 of FLOT-D but he was hospitalized due to dehydration and hyponatremia , also he developed AFib and he is currently on Eliquis. Discussed with the patient today that he might have MSI high tumor and he might benefit from dual checkpoint inhibitor with nivolumab and ipilimumab. We will send for Caris testing to confirm that and we could possibly change the chemotherapy from the next clinic visit. In the meantime we will continue with FLOT-D, patient stated that he will keep himself well hydrated during this time to avoid the complications that happened after the 1st cycle. If he continues to have some complications of chemotherapy, we will probably reduce the dose of thechemotherapy or omit docetaxel and continue with FOLFOX with the durvalumab. However, if he was proven to have MSI high tumor he will benefit from ipi- Nivo instead of FLOT-d based on NEONIPIGA trial Past Medical History: Reviewed by me; any relevant updates made in [facility]. 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9 % 250 mL IVPB, 1,500 mg, Intravenous, Once, 1 of 2 cycles fluorouracil (Adrucil) 5,750 mg in sodium chloride 0.9 % 170 mL infusion - for home use, 2,600 mg/m2 = 5,750 mg, Intravenous, Over 46 hours, 1 of 2 cycles Administration: 5,750 mg (08/03/2025) Past Surgical History: Reviewed by me; any relevant updates made in [facility]. Relevant history includes: Surgical History[2] Family History: Reviewed by me; any relevant updates made in [facility]. Relevant history includes: Family History[3] Father with colon cancer Social History: Social History Socioeconomic History Marital status: Spouse name: Not on file Number of children: Not on file Years of education: Not on file Highest education level: Not on file Occupational History Not on file Tobacco Use Smoking status: Never Smokeless tobacco: Never Vaping Use Vaping status: Not on file Substance and Sexual Activity Alcohol use: Never Drug use: Never Sexual activity: Yes Partners: Female control/protection: Post-menopausal Other Topics Concern Not on file Social History Narrative Not on file Social Drivers of Health Financial Resource Strain: Not on file Food Insecurity: No Food Insecurity (08/15/2025) Hunger Vital Sign Worried About Running Out of Food in the Last Year: Never true Ran Out of Food in the Last Year: Never true Transportation Needs: No Transportation Needs (08/15/2025) PRAPARE - Transportation Lack of Transportation (Medical): No Lack of Transportation (Non-Medical): No Physical Activity: Not on file Stress: Not on file Social Connections: Unknown (08/19/2023) Received from [facility] Family and Community Support Help with Day-to-Day Activities: Not on file Lonely or Isolated: Not on file Intimate Partner Violence: Not At Risk (08/15/2025) Humiliation, Afraid, Rape, and Kick questionnaire Fear of Current or Ex-Partner: No Emotionally Abused: No Physically Abused: No Sexually Abused: No Housing Stability: Unknown (08/15/2025) Housing Stability Vital Sign Unable to Pay for Housing in the Last Year: No Number of Times Moved in the Last Year: Not on file Homeless in the Last Year: No Lives 45 minutes away Allergies reviewed in EMR; any changes noted in Epic. Medications Current Medications[4] Review of Systems: Review of Systems 14 point ROS negative besides as mentioned in HPI Objective Vitals: 08/18/25 1203 BP: 120/76 Pulse: 64 Resp: 16 Temp: 36.3 ??C (97.4 ??F) SpO2: 100% Physical Exam Gen: NAD, well appearing and [...] appear normal. Labs, Imaging, Pathology: Reviewed in [facility] and/or Care everywhere, notable [...] medical history of hypertension who presents to [facility] clinic for evaluation and management of recently [...] D1 and D15 Cycled every 28 days We will proceed with day 15 today on August 18, 2025, we will send for RHONDA, and I communicated with pathology today. If he truly has been high tumor, will proceed with ipi and nivo based on the NEONIPIGA trial. We could also use Durva and tremi but the data is less robust RTC in 2 weeks Educated about keeping himself well hydrated 2.) VTE risk assessment Khorana score at least 2 (gastric tumor): 2 points (intermediate risk) If pre-chemo PLT >350,000, Hg < 10, or WBC > 11,000 patient would be high-risk for VTE andmay benefit from prophylactic anticoagulation Currently on AC due to Afib 3.) High risk for malnutrition Given location [...] Durvalumab in Gastric and GEJ Cancer [facility] trial published April 10 2025. A total [...] was 2.3% and 4.6%. Case discussed with Leiv , who was involved in the formulation of the plan above. Nini Eason MD, PGY5 Hematology and Medical Oncology fellow Pager number : [phone] [facility] HEMATOLOGY/BMT AND CELLULAR THERAPY PROGRAM [address] [place] [phone] I, Jatinder Sims MD, saw and evaluated the patient. I discussed the case with the medical student and resident/fellow and agree with the findings and plan as documented. I personally performed the Exam and Medical Decision Making. [1] Past Medical History: Diagnosis Date Blood urine 2023 Esophageal cancer june 2025 Hypertension 1999 Kidney stone Skin cancer 2004 Stomach cancer (CMS/HCC) june 2025 [2] Past Surgical History: Procedure Laterality Date APPENDECTOMY 2020 BACK SURGERY 2001 CHOLECYSTECTOMY 1984 COLONOSCOPY 2023 GALLBLADDER SURGERY 1998 [3] Family History Problem Relation Name Age of Onset Cancer Father [4] Current Outpatient Medications: acetaminophen (Tylenol) 500 MG tablet, Take 1 tablet by mouth every 6 hours for 14 days., Disp: 56 tablet, Rfl: 0 alfuzosin (Uroxatral) 10 MG 24 hr tablet, Take 1 tablet by mouth daily., Disp: , Rfl: apixaban (Eliquis) 5 MG tablet, Take 1 tablet by mouth 2 times a day., Disp: 60 tablet, Rfl: 0 dexamethasone (Decadron) 4 MG tablet, Take 2 tablets by mouth 2 times a day. Start day prior to docetaxel and continue for a total of 3 days., Disp: 72 tablet, Rfl: 0 famotidine (Pepcid) 20 MG tablet, Take 1 tablet by mouth daily., Disp: , Rfl: guaiFENesin (Robitussin) 100 MG/5ML solution, Take 10 mL by mouth every 4 hours as needed for coughfor up to 3 days., Disp: 118 mL, Rfl: 0 Multiple Vitamin (multivitamin) capsule, Take 1 capsule by mouth daily., Disp: , Rfl: ondansetron (Zofran) 8 MG tablet, Take 1 tablet by mouth 2 times a day. Take for two days starting the day after chemotherapy and then take PRN, Disp: 30 tablet, Rfl: 3 oxyCODONE-acetaminophen (Percocet) 5-325 MG tablet, Take 1 tablet by mouth every 6 hours as needed for severe pain., Disp: 120 tablet, Rfl: 0 pantoprazole (Protonix) 40 MG EC tablet, Take 1 tablet by mouth daily. Do not crush, chew, or split., Disp: 30 tablet, Rfl: 0 prochlorperazine (Compazine) 10 MG tablet, Take 1 tablet by mouth every 6 hours as needed for nausea or vomiting., Disp: 30 tablet, Rfl: 5 rosuvastatin (Crestor) 10 MG tablet, Take 1 tablet by mouth daily., Disp: , Rfl: No current facility-administered medications for this visit. Facility-Administered Medications Ordered in Other Visits: DOCEtaxel (Taxotere) 110 mg in sodium chloride 0.9 % 250 mL IVPB, 50 mg/m2 (Treatment Plan Recorded), Intravenous, Once, Que Gentile MD fluorouracil (Adrucil) 5,750 mg in sodium chloride 0.9 % 170 mL infusion - for home use, 2,600 mg/m2 (Treatment Plan Recorded), Intravenous, Over 46 hr, Que Gentile MD leucovorin (Wellcovorin) 434 mg in dextrose 5 % 100 mL IVPB, 200 mg/m2 (Treatment Plan Recorded), Intravenous, Once, Que Gentile MD, Last Rate: 65.9 mL/hr at 08/18/25 1543, 434 mg at 08/18/25 1543 OXALIplatin (Eloxatin) 185 mg in dextrose 5 % 250 mL IVPB, 85 mg/m2 (Treatment Plan Recorded), Intravenous, Once, Que Gentile MD, Last Rate: 166 mL/hr at 08/18/25 1441, 185 mg at 08/18/25 1441 documented in this encounter Plan of Treatment Upcoming Encounters Date Type Department Care Team (Latest Contact Info) Description 09/01/2025 9:15 AM EDT Clinical Support [facility] [address] [place] [phone] 09/01/2025 9:30 AM EDT Office Visit [facility] [address] [place] [phone] Aristides Reina MD [address] [place] [address] 09/01/2025 11:00 AM EDT Appointment [facility] [address] [place] [phone] 09/03/2025 10:30 AM EDT Appointment [facility] 2 [address] [place] [phone] 09/15/2025 9:30 AM EST Appointment [facility] 2 [address] [place] [phone] 09/17/2025 9:00 AM EST Appointment [facility] [address] [place] [phone] 09/21/2025 8:45 AM EST Office Visit [facility] [place] [address] [facility], [address] [place] [phone] Juarez Recinos MD [address] [place] [address] 09/28/2025 8:00 AM EST Appointment [facility] PET Scan [address] [place] [phone] 09/28/2025 9:00 AM EST Appointment [facility] PET Scan [address] [place] [address] 09/28/2025 10:15 AM EST Office Visit [facility] [address] [facility], [address]nd [place] [phone] Kim Machado MD [address] [facility] [address] [place] [phone] 01/13/2026 12:00 PM EST Office Visit [facility] [address] [place] [phone] Eros Mejia MD [address] [place] [phone] Scheduled Orders Name Type Priority Associated Diagnoses Orde r Schedule Caris FL Cancer Seek Hybrid + IHCs and Other Tests by Tumor Type Lab Routine Malignant neoplasm of lower third of esophagus Ordered: 08/19/2025 documented as of this encounter Visit Diagnoses Diagnosis Malignant neoplasm of lower third of esophagus- Primary Encounter for antineoplastic chemotherapy documented in this encounter Additional Health Concerns [...] documented as of this encounter Care Teams Candy Dipper Hand Relationship Specialty Start Date End Date Darius Ken MD [address] [place] [address] PCP - General Internal Medicine 08/23/24 documented as of this encounter
--- OUTSIDE RECORDS SUMMARY | 2025-08-18 12:00 | XMS_ITS | Encounter Summary ---
Author Organization Healthcare Address [address] [place] [address] Care Team Providers Care Nutrition Teacher Name Role Phone Darius Ken MD Primary Care Provider [phone] Reason for Visit * Episode Based Medications (Routine) - Authorized Specialty Diagnoses / Procedures Referred By Contac t Referred To Contact Diagnoses Adenocarcinoma of gastroesophageal junction Procedures FLOT: Fluorouracil + Leucovorin + OXALIplatin + DOCEtaxel Every 14 Days X 2 Every 28 Days Que Gentile MD [address] [place] [address] Bettina Hood [address] [phone] Phone: tel: fax: Que Gentile MD [address] [place] [address] Bettina Orozcorickson [address] [phone] Phone: tel: fax: Referral ID Status Reason Start Date Expiration Date V isits Requested Visits Authorized [id number] Authorized 07/21/2025 01/20/2027 1 20 Encounter Details Date Type Department Care Team (Latest Contact Info) Description 08/18/2025 12:00 PM EDT - 08/18/2025 11:59 PM EDT Hospital Encounter [facility] [address] [place] [phone] Adenocarcinoma of gastroesophageal junction (Primary Dx) Discharge Disposition: Home or Self [...] any time in the past 12 m [facility], were you homeless or living in a [place] [facility] [place] facility (including now)? No 08/15/2025 [facility] [...] Sign Reading Time Taken Comments Blood Pressure 129/82 08/18/2025 5:49 PM EDT Pulse 56 08/18/2025 5:49 PM EDT Temperature 36.5 C (97.7 F) 08/18/2025 12:33 PM EDT Respiratory Rate 16 08/18/2025 12:33 PM EDT Oxygen Saturation 98% 08/18/2025 12:33 PM EDT Inhaled Oxygen Concentration - - Weight 89.4 kg (197 lb 1.5 oz) 08/18/2025 12:33 PM EDT Height 182.9 cm (6') 08/18/2025 12:33 PM EDT Body Mass Index 26.73 08/18/2025 12:33 PM EDT documented in this encounter Functional [...] Take 1 tablet by mouth daily. 4 documented as of this encounter Miscellaneous Notes * Addendum Note - Sofía Bowles - 08/18/2025 12:00 PM EDTEncounter addended by: Sofía Bowles on: 08/19/2025 10:53 AM Actions taken: Charge Capture section accepted * Addendum Note - Briseyda Peterson RN - 08/18/2025 12:00 PM EDTEncounter addended by: Briseyda Peterson, RN on: 08/19/2025 4:21 PM Actions taken: Flowsheet accepted documented in this encounter Plan of Treatment Upcoming Encounters Date Type Department Care Team (Latest Contact Info) Description 09/01/2025 9:15 AM EDT Clinical Support [facility] Multidisciplinary Oncology Clinic [address] [place] [address] 09/01/2025 9:30 AM EDT Office Visit [facility] Multidisciplinary Oncology Clinic [address] [place] [phone] Aristides Reina MD [address] [place] [address] 09/01/2025 11:00 AM EDT Appointment [facility] Infusion Clinic 2 [address] [place] [address] 09/03/2025 10:30 AM EDT Appointment [facility] Infusion Clinic [address] [place] [phone] 09/15/2025 9:30 AM EST Appointment [facility] Infusion Clinic [address] [place] [phone] 09/17/2025 9:00 AM EST Appointment [facility] Infusion Clinic [address] [place] [phone] 09/21/2025 8:45 AM EST Office Visit [facility] [place] [address] [facility], [address] [place] [phone] Juarez Recinos MD [address] [place] [address] 09/28/2025 8:00 AM EST Appointment [facility] PET Scan [address] [place] [phone] 09/28/2025 9:00 AM EST Appointment [facility] PET Scan [address] [place] [address] 09/28/2025 10:15 AM EST Office Visit [facility] [address] [facility], 2nd [place] [address] Kim Machado MD [address] [place] [address] 01/13/2026 12:00 PM EST Office Visit [facility] [address] [place] [address] Eros Mejia MD [address] [place] [address] documented as of this encounter Visit Diagnoses Diagnosis Adenocarcinoma of gastroesophageal junction- Primary documented in this encounter Administered Medications Inactive Administered Medications - up to 3 most recent administrations Medication Order MAR Action Action Date Dose Rate Site cetirizine (ZyrTEC) tablet 10 mg 10 mg, Oral, Once, 1 dose, On Fri08/18/25 at 1300, RoutineIndications:Adenocarcin alvarado of gastroesophageal junction Given 08/18/2025 12:56 PM EDT 10 mg DOCEtaxel (Taxotere) 110 mg in sodium chloride 0.9 % 250 mL IVPB 110 mg (rounded from 108.5 mg = 50 mg/m2 2.17 m2 Treatment Plan BSA from Recorded weight), Intravenous, at 306 mL/hr, Administer over 60 Minutes, Once, Hazardous Drug-Tier 1 Precautions. Dispose in BLACK Hazardous Waste Container. Chemotherapy: refer to A14-065., On Fri08/18/25 at 1600, For 1 doseIndications:Adenocarcinoma of gastroesophageal junction New Bag 08/18/2025 4:50 PM EDT 110 mg 306 mL/hr durvalumab (Imfinzi) 1,500 mg in sodium chloride 0.9 % 250 mL IVPB 1,500 mg, Intravenous, at 325 mL/hr, Administer over 60 Minutes, Once, Infuse over 60 minutes through an IV line containing a sterile, low-protein binding 0.2 micron filter. Do not administer other medications through the same IV line. Monitor for infusion reactions. Interrupt or slow the infusion for grade 1 or 2 infusion-related reactions (consider premedications with subsequent infusions); discontinue permanently for grade 3 or 4 reactions., On Marcela 08/18/25 at 1300, For 1 dose, NS 250 ml, Max conc: 15 mg/ml.Indications:Adenocarcino ma of gastroesophageal junction New 08/18/2025 1:13 PM EDT 1,500 mg 325 mL/hr fluorouracil (Adrucil) 5,750 mg in sodium chloride 0.9 % 170 mL infusion - for home use 5,750 mg (rounded from 5,642 mg = 2,600 mg/m2 2.17 m2 Treatment Plan BSA from Recorded weight), Intravenous, at 3.7 mL/hr, Administer over 46 Hours, Over 46 hours, Dispense from [facility] Pharmacy Hazardous Drug-Tier 1 Precautions. Administer via [facility] Pump. Dispose in BLACK Hazardous Waste Container. Chemotherapy: refer to A14-065., First dose on [facility] 08/18/25 at 1700, For 1 doseIndications:Adenocarcinoma of gastroesophageal junction Given 08/18/2025 5:52 PM EDT 5,750 mg 3.7 mL/hr leucovorin (Wellcovorin) 434 mg in dextrose 5 % 100 mL IVPB 434 mg (200 mg/m2 2.17 m2 Treatment Plan BSA from Recorded weight), Intravenous, at 65.9 mL/hr, Administer over 120 Minutes, Once, Administer 1 hour after start of oxaliplatin , On [facility] 08/18/25 at 1500, For 1 doseIndications:Adenocarcinoma of gastroesophageal junction New Bag 08/18/2025 3:43 PM EDT 434 mg 65.9 mL/hr ondansetron ODT (Zofran-ODT) disintegrating tablet 16 mg 16 mg, Oral, Once, 1 dose, On Marcela 08/18/25 at 1300, RoutineIndications:Adenocarcin alvarado of gastroesophageal junction Given 08/18/2025 12:56 PM EDT 16 mg OXALIplatin (Eloxatin) 185 mg [...] Container. Chemotherapy: refer to A14-065 Vesicant., On Marcela 08/18/25 at 1400, For 1 dose, D5W 250 mLIndications:Adenocarcinoma of gastroesophageal junction New Bag 08/18/2025 2:41 PM EDT 185 mg 166 mL/hr documented in this encounter Additional Health Concerns Infection Onset Date Last Indicated Resolved Time C. difficile 08/14/2025 08/14/2025 Assessment Noted Time PHQ-9 Depression Total Score: 0 08/18/20 11:58 AM EDT A fall risk assessment has been complete d for the patient 08/18/2025 12:32 PM EDT A Body Mass Index follow-up plan has been documented for the patient 08/18/2025 5:54 PM EDT documented as of this encounter Care Teams Nutrition Teacher Relationship Specialty Start Date End Date Darius Ken MD [address] [place] [address] PCP - General Internal Medicine 08/23/24 documented as of this encounter
--- OUTSIDE RECORDS SUMMARY | 2025-08-20 14:00 | XMS_ITS | Encounter Summary ---
Author Organization Healthcare Address [address] [id number] Care Team Providers Care Microsoft Application Developer Name Role Phone Darius Ken MD Primary Care Provider [phone] Reason for Referral * Clinic-Administered Medication (Routine) - Pending Review Specialty Diagnoses / Procedures Referred By Broderick olivares Referred To Contact Devendra Thomas MBBS [address] [place] [address] Phone: tel: fax: Referral ID Status Reason Start Date Expiration Date V isits Requested Visits Authorized [id number] Pending Review 08/20/2025 02/19/2027 1 1 Reason for Visit * Clinic-Administered Medication (Routine) - Pending Review Specialty Diagnoses / Procedures Referred By Broderick olivares Referred To Contact Devendra Thomas MBBS [address] [place] [address] Phone: tel: fax: Referral ID Status Reason Start Date Expiration Date V isits Requested Visits Authorized [id number] Pending Review 08/20/2025 02/19/2027 1 1 Encounter Details Date Type Department Care Team (Latest Contact Info) Description 08/20/2025 2:00 PM EDT - 08/20/2025 11:59 PM EDT Hospital Encounter [facility] [address] [phone] Adenocarcinoma of gastroesophageal junction (Primary Dx) Discharge [...] any time in the past [address] [facility], were you homeless or living in a correction (including now)? No 08/15/2025 [facility] Utilities Answer Date Recorded In the past 12 months has th e electric, gas, oil, or water [email or web address] threatened to shut off services in your home? No 08/15/2025 Sex and Gender Information Value Date Recorded Sex Assigned at Male 07/23/2024 9:40 AM EDT Legal Sex Male 8:50 PM EDT Gender Identity Male 07/23/2024 9:40 AM EDT Sexual Orientation Not on file documented as of this encounter Last Filed Vital Signs Vital Sign Reading Time Taken Comments Blood Pressure 99/65 08/20/2025 3:25 PM EDT c/o slight diziness Pulse 62 08/20/2025 3:25 PM EDT Temperature 36.2 C (97.2 F) 08/20/2025 3:25 PM EDT Respiratory Rate 16 08/20/2025 3:25 PM EDT Oxygen Saturation 100% 08/20/2025 3:2 5 PM EDT Inhaled Oxygen Concentration - - Weight 86.6 kg (190 lb 14.7 oz) 08/20/2025 3:25 PM EDT Height 182.9 cm (6') 08/20/2025 3:25 PM EDT Body Mass Index 25.89 08/20/2025 3:25 PM EDT documented in this encounter Medications at [...] encounter Miscellaneous Notes * Addendum Note - Bran Washington, PharmD - 08/20/2025 2:00 PM EDTEncounter addended by: Bran Washington, PharmD on: 08/22/2025 12:29 PM Actions taken: Order list changed, Therapy plan modified documented in this encounter Plan of Treatment Upcoming Encounters Date Type Department Care Team (Latest Contact Info) Description 09/01/2025 9:15 AM EDT Clinical Support [facility] Multidisciplinary Oncology Clinic [address] [place] [address] 09/01/2025 9:30 AM EDT Office Visit [facility] [address] [place] [address] Aristides Reina MD 800 [place] [address] 09/01/2025 11:00 AM EDT Appointment [facility] Infusion Clinic 2 [address] [place] [address] 09/03/2025 10:30 AM EDT Appointment [facility] 2 [address] [place] [address] 09/15/2025 9:30 AM EST Appointment [facility] Infusion Clinic 2 [address] [place] [address] 09/17/2025 9:00 AM EST Appointment [facility] 2 [address] [place] [address] 09/21/2025 8:45 AM EST Office Visit [facility] [place] [address] [facility], [address] [place] [phone] Juarez Recinos MD [address] [place], [place] [phone] 09/28/2025 8:00 AM EST Appointment [facility] PET Scan [address] [place] [address] 09/28/2025 9:00 AM EST Appointment [facility] PET Scan [address] [place] [address] 09/28/2025 10:15 AM EST Office Visit [facility] [address] [facility], 2nd [place] [address] Kim Machado MD [address] [place] [address] 01/13/2026 12:00 PM EST Office Visit [facility] [address] [place] [address] Eros Mejia MD [address] [place] [address] documented as of this encounter Visit Diagnoses Diagnosis Adenocarcinoma of gastroesophageal junction- Primary documented in this encounter Administered Medications Inactive Administered Medications - up to 3 most recent administrations Medication Order MAR Action Action Date Dose Rate Site sodium chloride 0.9 % bolus 1,000 mL 1,000 mL, Intravenous, Once, 1 dose, On 08/20/25 at 1630, Administer over 90 Minutes, Routine New Bag 08/20/2025 4:06 PM EDT 1,000 mL 666.7 mL/hr documented in this encounter Additional Health Concerns Infection Onset Date Last Indicated Resolved Time C. difficile 08/14/2025 08/14/2025 Assessment Noted Time PHQ-9 Depression Total Score: 0 08/18/20 11:58 AM EDT A fall risk assessment has been complete d for the patient 08/20/2025 3:25 PM EDT A Body Mass Index follow-up plan has been documented for the patient 08/18/2025 5:54 PM EDT documented as of this encounter Care Teams Microsoft Application Developer Relationship Specialty Start Date End Date Darius Ken MD [address] [place] [address] PCP - General Internal Medicine 08/23/24 documented as of this encounter
[2025-08-26] VITALS (14 sets, daily range): BP systolic 89–123; BP diastolic 57–77; PULSE 68–106; RESP 14–24; TEMP 37.2–39.1; O2SAT 78–100; BMI 25.7
--- OUTSIDE RECORDS SUMMARY | 2025-08-26 07:14 | XMS_ITS | Encounter Summary ---
Author Organization Healthcare Address [address] [place] [address] Care Team Providers Care Cannoneer Name Role Phone Darius Ken MD Primary Care Provider [phone] Encounter Details Date Type Department Care Team [...] Clinical Support [facility] [address] [place] [address] 09/01/2025 9:30 AM EDT Office Visit [facility] [address] [place] [phone] Aristides Reina MD 800 [place] [address] 09/01/2025 11:00 AM EDT Appointment [facility] 2 [address] [place] [address] 09/03/2025 10:30 AM EDT Appointment [facility] 2 [address] [place] [address] 09/15/2025 9:30 AM EST Appointment [facility] 2 [address] [place] [address] 09/17/2025 9:00 AM EST Appointment [facility] 2 [address] [place] [address] 09/21/2025 8:45 AM EST Office Visit [facility] [place] [address] [facility], [address] [place] [address] Juarez Recinos MD [address] [place] [address] 09/28/2025 8:00 AM EST Appointment [facility] PET Scan [address] [place] [address] 09/28/2025 9:00 AM EST Appointment [facility] PET Scan [address] [place] [address] 09/28/2025 10:15 AM EST Office Visit [facility] 800 [facility], 2nd [place] [address] Kim Machado MD [address] [facility] [address] [place] [address] 01/13/2026 12:00 PM EST Office Visit [facility] [address] [place] [address] Eros Mejia MD [address] [place] [address] documented as of this encounter Visit Diagnoses Not on filedocumented in this encounter Additional Health Concerns Assessment Noted Time A fall risk assessment has been complete d for the patient 07/27/2025 12:23 PM EDT A Body Mass Index follow-up plan has been documented for the patient 07/27/2025 3:02 PM EDT documented as of this encounter Care Teams Cannoneer Relationship Specialty Start Date End Date Darius Ken MD [address] [place] [address] PCP - General Internal Medicine 08/23/24 documented as of this encounter
--- OUTSIDE RECORDS SUMMARY | 2025-08-26 07:14 | XMS_ITS | Encounter Summary ---
Author Organization Healthcare Address [address] [place] [address] Care Team Providers Care Interceptor Operator Name Role Phone Darius Ken MD Primary Care Provider [phone] Encounter Details Date Type Department Care Team (Late st Contact Info) Description 07/28/2025 Telephone [facility] 800 [place] [address] Ghulam Ugarte MD [address] [address] Social History Tobacco Use Types Packs/Day Years [...] no answer, LVM and sent instructions through [employer] again and to call back if any [...] optimal time of day to reach caller: [phone] Note: Please do not reply to this message. Follow-up communication and further actions as a result of this message need to be communicated with the patient directly, if the patient is not active onMyChart. If the patient is active on MyChart, they will receive notification of the communication/outcome via [employer]. documented in this encounter Plan of Treatment Upcoming Encounters Date Type Department Care Team (Latest Contact Info) Description 09/01/2025 9:15 AM EDT Clinical Support [facility] Multidisciplinary Oncology Clinic [address] [place] [address] 09/01/2025 9:30 AM EDT Office Visit [facility] Multidisciplinary Oncology Clinic [address] [place] [address] Aristides Reina MD [address] [place] [address] 09/01/2025 11:00 AM EDT Appointment [facility] Infusion Clinic [address] [place] [address] 09/03/2025 10:30 AM EDT Appointment [facility] [address] [place] [address] 09/15/2025 9:30 AM EST Appointment [facility] [address] [place] [address] 09/17/2025 9:00 AM EST Appointment [facility] [address] [place] [address] 09/21/2025 8:45 AM EST Office Visit [facility] [place] [address] [facility], [address] [place] [address] Juarez Recinos MD 800 [place] [address] 09/28/2025 8:00 AM EST Appointment [facility] PET Scan [address] [place] [address] 09/28/2025 9:00 AM EST Appointment [facility] PET Scan [address] [place] [address] 09/28/2025 10:15 AM EST Office Visit [facility] 800 [facility], 2nd [place] [address] Kim Machado MD [address] [facility] [address] [place] [address] 01/13/2026 12:00 PM EST Office Visit [facility] [address] [place], [place] [address] Eros Mejia MD [address] [place] [address] documented as of this encounter Visit Diagnoses Not on filedocumented in this encounter Additional Health Concerns Assessment Noted Time A fall risk assessment has been complete d for the patient 07/27/2025 12:23 PM EDT A Body Mass Index follow-up plan has been documented for the patient 07/27/2025 3:02 PM EDT documented as of this encounter Care Teams Interceptor Operator Relationship Specialty Start Date End Date Darius Ken MD [address] [place] [address] PCP - General Internal Medicine 08/23/24 documented as of this encounter
--- OUTSIDE RECORDS SUMMARY | 2025-08-26 07:14 | XMS_ITS | Encounter Summary ---
Author Organization Healthcare Address [address] [place] [address] Care Team Providers Care Enamel Cracker Name Role Phone Darius Ken MD Primary Care Provider [phone] Reason for Referral * Consultation (Routine) - Closed Specialty Diagnoses / Procedures Referred By Contdennise olivares Referred To Contact Nephrology Diagnoses Chronic kidney disease (CKD) stage G3a/A1, moderately decreased glomerular filtration rate (GFR) between 45-59 mL/min/1.73 square meter and albuminuria creatinine ratio less than 30 mg/g Darius Ken MD [address] [facility] [address] [facility] [address] [place] [address] Phone: tel: fax: Kirk Villatoro MD [address] [address] Phone: tel: fax: Referral ID Status Reason Start Date Expiration Date V isits Requested Visits Authorized [id number] Closed Specialty Services Required 07/23/2024 01/22/2026 1 1 Encounter Details Date Type Department Care Team (Late st Contact Info) Description 07/23/2024 [facility] [address] [place] [address] Darius Ken MD [address] [facility] [address] [facility] [address] [place] [address] Chronic kidney disease (CKD) stage G3a/A1, moderately decreased glomerular filtration rate (GFR) between 45-59 mL/min/1.73 square meter and albuminuria creatinine ratio less than 30 mg/g ([facility]/HCC) (Primary Dx) Social History Tobacco Use Types [...] Description 09/01/2025 9:15 AM EDT Clinical Support [facility] Multidisciplinary Oncology Clinic [address] [place] [address] 09/01/2025 9:30 AM EDT Office Visit [facility] Multidisciplinary Oncology Clinic [address] [place] [address] Aristides Reina MD 800 [place] [address] 09/01/2025 11:00 AM EDT Appointment [facility] Infusion Clinic 2 4 [place] [address] 09/03/2025 10:30 AM EDT Appointment [facility] 2 [address] [place] [address] 09/15/2025 9:30 AM EST Appointment [facility] 2 [address] [place] [address] 09/17/2025 9:00 AM EST Appointment [facility] 2 [address] [place] [address] 09/21/2025 8:45 AM EST Office Visit [facility] [place] [address] [facility], [address] [place] [address] Juarez Recinos MD [address] [place] [address] 09/28/2025 8:00 AM EST Appointment [facility] PET Scan [address] [place] [address] 09/28/2025 9:00 AM EST Appointment [facility] PET Scan [address] [place] [address] 09/28/2025 10:15 AM EST Office Visit [facility] [address] [facility], 2nd [place] [address] Kim Machado MD [address] [place] [address] 01/13/2026 12:00 PM EST Office Visit [facility] [address] [place] [address] Eros Mejia MD [address] [place] [address] Scheduled Referrals Name Type Priority Associated Diagnoses Orde r Schedule Ambulatory referral to Nephrology Outpatient Referral Routine Chronic kidney disease (CKD) stage G3a/A1, moderately decreased glomerular filtration rate (GFR) between 45-59 mL/min/1.73 square meter and albuminuria creatinine ratio less than 30 mg/g ([facility]) Ordered: 07/23/2024 documented as of this encounter Visit Diagnoses Diagnosis Chronic kidney disease (CKD) stage G3a/A1, moderately decreased glomerular filtration rate (GFR) between 45-59 mL/min/1.73 square meter and albuminuria creatinine ratio less than 30 mg/g- Primary documented in this encounter Additional Health Concerns Infection Onset Date Last Indicated Resolved Time C. difficile Rule-Out 08/13/2025 08/14/20252024 12:34 PM EDT Gastrointestinal Rule-Out 08/13/2025 08/14/2025 1:05 PM EDT C. difficile 08/14/2025 08/14/2025 documented as of this encounter Care Teams Enamel Cracker Relationship Specialty Start Date End Date Darius Ken MD [address] [place] [address] PCP - General Internal Medicine 08/23/24 documented as of this encounter
--- OUTSIDE RECORDS SUMMARY | 2025-08-26 07:14 | XMS_ITS | Encounter Summary ---
Author Organization Healthcare Address [address] [id number] Care Team Providers Care Slab Depiler Operator Name Role Phone Darius Ken MD Primary Care Provider [phone] Encounter Details Date Type Department Care Team [...] No Risk Indicated 07/29/2025 2:25 PM EDT hTanh eLone RN * Question Answer Date of Assessment Author 6. Suicidal Behavior (Lifetime) No 12:05 PM EDT Berenice Ferrera RN documented as of this encounter Plan of Treatment Upcoming Encounters Date Type Department Care Team (Latest Contact Info) Description 09/01/2025 9:15 AM EDT Clinical Support [facility] [address] [place] [address] 09/01/2025 9:30 AM EDT Office Visit [facility] [address] [phone] Aristides Reina MD [address] [place] [address] 09/01/2025 11:00 AM EDT Appointment [facility] 2 [address] [place] [address] 09/03/2025 10:30 AM EDT Appointment [facility] 2 [address] [place] [address] 09/15/2025 9:30 AM EST Appointment [facility] 2 [address] [place] [address] 09/17/2025 9:00 AM EST Appointment [facility] 2 [address] [place] [address] 09/21/2025 8:45 AM EST Office Visit [facility] [place] [address] [facility], [address] [place] [address] Juarez Recinos MD [address] [place] [address] 09/28/2025 8:00 AM EST Appointment [facility] PET Scan 800 [place] [address] 09/28/2025 9:00 AM EST Appointment [facility] PET Scan [address] [place] [address] 09/28/2025 10:15 AM EST Office Visit [facility] [address] [facility], 2nd [place] [address] Kim Machado MD [address] [place] [address] 01/13/2026 12:00 PM EST Office Visit [facility] [address] [place] [address] Eros Mejia MD [address] [place] [phone] documented as of this encounter Visit Diagnoses Not on filedocumented in this encounter Additional Health Concerns Assessment Noted Time A fall risk assessment has been complete d for the patient 07/27/2025 12:23 PM EDT A Body Mass Index follow-up plan has been documented for the patient 07/27/2025 3:02 PM EDT documented as of this encounter Care Teams Slab Depiler Operator Relationship Specialty Start Date End Date Darius Ken MD [address] [place] [address] PCP - General Internal Medicine 08/23/24 documented as of this encounter
--- OUTSIDE RECORDS SUMMARY | 2025-08-26 07:14 | XMS_ITS | Encounter Summary ---
Author Organization Healthcare Address [address] [place] [address] Care Team Providers Care Tractor Operator Laser Leveling Name Role Phone Darius Ken MD Primary Care Provider [phone] Encounter Details Date Type Department Care Team [...] Clinical Support [facility] [address] [place] [address] 09/01/2025 9:30 AM EDT Office Visit [facility] [address] [place] [phone] Aristides Reina MD 800 [place] [address] 09/01/2025 11:00 AM EDT Appointment [facility] 2 [address] [place] [address] 09/03/2025 10:30 AM EDT Appointment [facility] 2 [address] [place] [address] 09/15/2025 9:30 AM EST Appointment [facility] 2 [address] [place] [address] 09/17/2025 9:00 AM EST Appointment [facility] 2 [address] [place] [address] 09/21/2025 8:45 AM EST Office Visit [facility] [place] [address] [facility], [address] [place] [address] Juarez Recinos MD [address] [place] [address] 09/28/2025 8:00 AM EST Appointment [facility] PET Scan [address] [place] [address] 09/28/2025 9:00 AM EST Appointment [facility] PET Scan [address] [place] [address] 09/28/2025 10:15 AM EST Office Visit [facility] [address] [facility], 2nd [place] [phone] Kim Machado MD [address] [facility] [address] [place] [address] 01/13/2026 12:00 PM EST Office Visit [facility] [address] [place] [address] Eros Mejia MD [address] [place] [address] documented as of this encounter Visit Diagnoses Not on filedocumented in this encounter Additional Health Concerns Assessment Noted Time A fall risk assessment has been complete d for the patient 07/27/2025 12:23 PM EDT A Body Mass Index follow-up plan has been documented for the patient 07/27/2025 3:02 PM EDT documented as of this encounter Care Teams Tractor Operator Laser Leveling Relationship Specialty Start Date End Date Darius Ken MD [address] [place] [address] PCP - General Internal Medicine 08/23/24 documented as of this encounter
--- OUTSIDE RECORDS SUMMARY | 2025-08-26 07:14 | XMS_ITS | Clinical Summary ---
Author Organization Healthcare Address [address] [place] [address] Care Team Providers Care Kier Drier Name Role Phone Darius Ken MD Primary Care Provider [phone] Allergies Active Allergy Reactions Criticality Noted Date [...] Take 1 capsule by mouth daily. Active ondansetron (Zofran) 8 MG tabletIndications:A denocarcinoma [...] vomiting. 30 tablet 5 08/02/20 25 Active oxyCODONE-acetamino phen (Percocet) 5-325 MG tablet Take 1 tablet by mouth every 6 hours as needed for severe pain. 120 tablet 08/10/20 25 2024 Active famotidine (Pepcid) 20 MG tablet Take 1 tablet by mouth daily. Active apixaban (Eliquis) 5 MG tablet Take 1 tablet by mouth 2 times a day. 60 tablet 08/15/20 25 2024 Active pantoprazole (Protonix) 40 MG EC tablet Take 1 tablet by mouth daily. Do not crush, chew, or split. 30 tablet 08/15/20 25 2024 Active bisoprolol (Zebeta) 5 MG tablet Take 1 tablet by mouth daily. Patient states half a tablet daily. 06/23/20 24 2024 Discontin ued(Other ) Famotidine (PEPCID PO) Take 20 mg by mouth daily. 06/25/20 25 2024 Discontin ued(Enter ed in Error) acetaminophen (Tylenol) 500 MG tablet Take 1 tablet by mouth every 6 hours for 14 days. 56 tablet 07/29/20 25 2024 loperamide (Imodium A-D) 2 MG tabletIndications:A denocarcinoma of gastroesophageal junction 2 mg by mouth every 2 hours as needed for diarrhea; Not to exceed 16 mg in 24 hours 30 tablet 5 08/02/20 25 2024 Discontin ued(Stop Taking at Discharge ) guaiFENesin (Robitussin) 100 MG/5ML solution Take 10 mL by mouth every 4 hours as needed for cough for up to 3 days. 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 Stage 3a chronic kidney disease 12/31/2024 Nephrolithiasis 12/31/2024 Essential hypertension 12/31/2024 Benign prostatic hyperplasia without lower urinary tract symptoms 12/31/2024 Encounters Date Type Department Care Team Description 08/25/2025 Travel 08/20/2025 2:00 PM EDT - 08/20/2025 11:59 PM EDT Hospital Encounter [facility] Infusion [address] [place] [address] Adenocarcinoma of gastroesophageal junction (Primary Dx) Discharge Disposition: Home or Self Care 08/20/2025 Travel 08/18/2025 12:00 PM EDT - 08/18/2025 11:59 PM EDT Hospital Encounter [facility] [address] [place] [address] Adenocarcinoma of gastroesophageal junction (Primary Dx) Discharge Disposition: Home or Self Care 08/18/2025 11:00 AM EDT Office Visit [facility] [address] [place] [address] Nini Eason MD Malignant neoplasm of lower third of esophagus (Primary Dx); Encounter for antineoplastic chemotherapy 08/18/2025 10:30 AM EDT Clinical Support [facility] [address] [place] [address] Kalina Emerson, RN Adenocarcinoma of gastroesophageal junction 08/18/2025 8:31 AM EDT - 08/18/2025 11:59 AM EDT Hospital Encounter Cardiac Imaging [address] [place] [phone] Atrial fibrillation, unspecified type (CMS/HCC) Discharge Disposition: Home or Self Care 08/18/2025 Travel 08/16/2025 Travel 08/13/2025 12:20 PM EDT - 08/15/2025 7:52 PM EDT Hospital Encounter [facility] [address] [place] [phone] Kalina Crandall MD Buckingham, Bradley P, MD [facility], MD Donnie Paez Muzna, MD Epigastric pain (Primary Dx); Gastric adenocarcinoma (CMS/HCC); Nausea vomiting and diarrhea; Colitis; Atrial fibrillation, unspecified type (CMS/HCC); NSTEMI (non-ST elevated myocardial infarction) Discharge Disposition: Home or Self Care 08/13/2025 Travel 08/13/2025 Orders Only External Location [address] [place] [address] Kenneth Daniel MD 08/11/2025 Orders Only [facility] Nuclear Medicine [address] [place] [address] Quoc Pratt MD 08/11/2025 Travel 08/11/2025 Orders Only [facility] [address] [address] Jeanine Bhandari RN 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) 08/11/2025 Orders Only [facility] [address] [address] Jeanine Bhandari RN 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) 08/10/2025 Orders Only [facility] [address] [place] [address] Aristides Reina MD 08/10/2025 Telephone [facility] [address] [place] [address] Aristides Reina MD 08/05/2025 10:27 AM EDT - 08/05/2025 11:59 PM EDT Hospital Encounter [facility] [address] [place] [address] 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) Discharge Disposition: Home or Self Care 08/05/2025 Travel 08/03/2025 7:37 AM EDT - 08/03/2025 11:59 PM EDT Hospital Encounter [facility] [address] [place] [address] 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) Discharge Disposition: Home or Self Care 08/03/2025 Travel 08/02/2025 10:20 AM EDT - 08/02/2025 11:59 PM EDT Hospital Encounter [facility] Pulmonary Function Testing [address] [place] [address] 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 (CMS/HCC) Discharge Disposition: Home or Self Care 08/02/2025 Travel 08/02/2025 Orders Only [facility] [address] [place] [address] Zuri Angeles, PharmD 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) 07/29/2025 1:08 PM EDT Anesthesia Event [facility] OPERATING ROOM [address] [place] [address] Jose Roberto Colmenares MD Janszen, Philip J, 07/29/2025 12:25 PM EDT - 07/29/2025 2:20 PM EDT Surgery [facility] OPERATING ROOM [address] [place] [address] Ghulam Ugarte MD INSERTION, TUNNELED CENTRAL VENOUS DEVICE, WITH PORT [04134 (CPT )] 07/29/2025 10:06 AM EDT - 07/29/2025 11:59 PM EDT Hospital Encounter [facility] Echo [address] [facility] [address] [place] [address] 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 (CMS/HCC) Discharge Disposition: Home or Self Care 07/29/2025 9:39 AM EDT - 07/29/2025 3:30 PM EDT Hospital Encounter [facility] OPERATING ROOM [address] [place] [address] Ghulam Ugarte MD 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] (Primary Dx) Discharge Disposition: Home or Self Care 07/29/2025 Travel 07/28/2025 Travel 07/28/2025 Telephone [facility] [address] [place] [address] Ghulam Ugarte MD 07/27/2025 1:00 PM EDT Office Visit [facility] [address] [address] Kim Machado MD 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 (CMS/HCC) 07/27/2025 9:59 AM EDT - 07/27/2025 11:59 PM EDT Hospital Encounter [facility] PET Scan [address] [place] [address] Discharge Disposition: Home or Self Care 07/27/2025 9:58 AM EDT Hospital Encounter [facility] PET Scan [address] [place] [address] 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 (CMS/HCC) Discharge Disposition: Home or Self Care 07/27/2025 Travel 07/25/2025 3:30 PM EDT [facility] Testing [place] [facility] [address] [place] [address] 07/25/2025 Travel 07/21/2025 10:30 AM EDT Office Visit [facility] [address] [place] [address] Rachel Jonas APRN Gastric adenocarcinoma (CMS/HCC) (Primary Dx) 07/21/2025 10:00 AM EDT Office Visit [facility] [address] [place] [address] Aristides Reina MD 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) 07/21/2025 Travel 07/20/2025 Travel 07/14/2025 Travel 07/12/2025 Orders Only Radiology Virtual Dept. [address] [place] [address] Paz Corcoran DO 07/07/2025 Lab Requisition [facility] Lab [address] [place] [address] Kim Machado MD Dysphagia, unspecified 07/06/2025 2:45 PM EDT Office Visit [facility] [address] [facility], [address]nd [place] [address] Kim Machado MD Malignant neoplasm of overlapping [...] any time in the past 12 m [facility], were you homeless or living in a nursing home (including now)? No 08/15/2025 [facility] Utilities Answer Date Recorded In [...] Mass Index 25.89 08/20/2025 3:25 PM EDT Plan of Treatment Upcoming Encounters Date Type Department Care Team (Latest Contact Info) Description 09/01/2025 9:15 AM EDT Clinical Support [facility] Multidisciplinary Oncology Clinic [address] [place] [address] 09/01/2025 9:30 AM EDT Office Visit [facility] Multidisciplinary Oncology Clinic [address] [place] [address] Aristides Reina MD [address] [place] [address] 09/01/2025 11:00 AM EDT Appointment [facility] Infusion Clinic 2 [address] [place] [address] 09/03/2025 10:30 AM EDT Appointment [facility] Infusion Clinic 2 [address] [place] [address] 09/15/2025 9:30 AM EST Appointment [facility] Infusion Clinic 2 [address] [place] [address] 09/17/2025 9:00 AM EST Appointment [facility]fusion [facility] 2 [address] [place] [address] 09/21/2025 8:45 AM EST Office Visit [facility] [place] [address] [facility], [address] [place] [address] Juarez Recinos MD [address] [place] [address] 09/28/2025 8:00 AM EST Appointment [facility] PET Scan [address] [place] [address] 09/28/2025 9:00 AM EST Appointment [facility] PET Scan [address] [place] [address] 09/28/2025 10:15 AM EST Office Visit [facility] Res[facility] [address] [facility] 2nd [place] [address] Kim Machado MD [address] [place] [address] 01/13/2026 12:00 PM EST Office Visit [facility] [address] [place] [address] Eros Mejia MD [address] [place] [address] Health Maintenance Due Date Last Done Comments [facility]-Medicare Annual Wellness (AWV) 1955 [facility]-Infant/Child/Adol SDOH Screenings 1955 [facility]-Zoster Vaccines (1 of 2) 1973 CT Colonography 1999 Colonoscopy 1999 FIT-DNA 1999 FIT 1999 FOBT 1999 Sigmoidoscopy 1999 [facility]-Colorectal Cancer Screening 1999 [id number] Vaccine ( season) 2025 12/23/2023, 04/09/2023, 09/25/2022, Additional history exists [facility]-Influenza Vaccine (#1) 07/11/202507/21, 07/23/2023, 07/29/2022, Additional history exists [facility]- SDOH Screenings 02/13/2026 [facility]-Adult SDOH Screenings 02/13/2026 08/15/2025 [facility]-Depression Screening 08/18/2026 08/18/2025, 07/2025 [facility]-DTaP,Tdap,and Td Vaccines (2 - Td or Tdap) 10/23/2030 10/23/2020, 01/17/1997 [facility]-Hepatitis A Vaccines Aged Out 03/26/2019 No longer eligible based on patient's age to complete this topic [facility]-Pneumococcal Vaccine: 50+ Years Completed 10/23/2020, 10/22/2019 [facility]-RSV Vaccine: 60+ Years or Completed 01/20/2024 [facility]-Hepatitis C Screening Completed 08/13/2025 [facility]-Obesity Intervention Completed 025, 08/13/2025, 07/27/2025, Additional history exists HPV Vaccines Aged Out [...] this topic Medical Devices Implanted Type Area Electric Pile Driver Operator Device Identifier Shelf Expiration Date Model / Serial / Lot Port Clearvue Power 8fr - [id number] Implanted:Qty : 1 on 07/29/2025 by Ghulam Ugarte MD at [facility] Catheter Right: Chest [id number] 09/09/2026 [id number] / / [id number] Procedures Procedure Name Priority Date/Time Associated Diagnosis Comments CBC WITH AUTO DIFFERENTIAL Routine 08/18/2025 9:55 AM EDT Adenocarcinoma of gastroesophageal junction COMPREHENSIVE METABOLIC PANEL, PLASMA Routine 08/18/2025 9:55 AM EDT Adenocarcinoma of gastroesophageal junction LACTATE, VENOUS Routine 08/15/2025 4:20 AM EDT CBC WITH AUTO DIFFERENTIAL Routine 08/15/2025 4:20 AM EDT COMPREHENSIVE METABOLIC PANEL, PLASMA Routine 08/15/2025 4:20 AM EDT MAGNESIUM, PLASMA Routine 08/15/2025 4:20 AM EDT POCT GLUCOSE METER UNSOLICITED RESULTS Routine 08/14/2025 11:49 PM EDT BLOOD CULTURE (AEROBIC/ANAEROBIC SET) Routine 08/14/2025 11:06 AM EDT BLOOD CULTURE (AEROBIC/ANAEROBIC SET) Routine 08/14/2025 10:50 AM EDT CALPROTECTIN, FECAL BY IMMUNOASSAY (SO) STAT 08/14/2025 10:21 AM EDT CLOSTRIDIUM DIFFICILE EIA STAT 08/14/2025 10:21 AM EDT FECAL LACTOFERRIN STAT 08/14/2025 10:21 AM EDT COMPREHENSIVE GI PANEL BY PCR STAT 08/14/2025 10:21 AM EDT CLOSTRIDIODES (CLOSTRIDIUM) DIFFICILE,PCR STAT 08/14/2025 10:21 AM EDT SODIUM, PLASMA Timed 08/14/2025 5:24 AM EDT CBC WITH AUTO DIFFERENTIAL Routine 08/14/2025 5:24 AM EDT PHOSPHORUS, PLASMA Routine 08/13/2025 11:58 PM EDT MAGNESIUM, PLASMA Routine 08/13/2025 11:58 PM EDT BASIC METABOLIC PANEL, PLASMA Timed 08/13/2025 11:58 PM EDT SODIUM, PLASMA Timed 08/13/2025 8:16 PM EDT OSMOLALITY, URINE Routine 08/13/2025 7:39 PM EDT SODIUM, URINE, RANDOM Routine 08/13/2025 7:39 PM EDT ECG ADULT Routine 08/13/2025 4:04 PM EDT TROPONIN T, HIGH SENSITIVITY, 2 HOUR, PLASMA Timed 08/13/2025 3:27 PM EDT PHOSPHORUS, PLASMA Add-On 08/13/2025 1:24 PM EDT OSMOLALITY, SERUM Add-On 08/13/2025 1:24 PM EDT ED HIV 1/2 ANTIBODY/ANTIGEN SCREEN WITH REFLEX TO HIV I/II DIFFERENTIATION STAT 08/13/2025 1:24 PM EDT C-REACTIVE PROTEIN, PLASMA STAT 08/13/2025 1:24 PM EDT N-TERMINAL PROBNP, PLASMA STAT 08/13/2025 1:24 PM EDT ED PROTOCOL HIV 1/2 ANTIBODY/ANTIGEN SCREEN W/REFLEX TO HIV 1/2 ANTIBODY DIFFERENTIATION STAT 08/13/2025 1:24 PM EDT HEPATITIS C ANTIBODY - ED W/REFLEX TO HCV QUANT PCR STAT 08/13/2025 1:24 PM EDT TROPONIN T, HIGH SENSITIVITY, 0 HOUR, PLASMA, REFLEX TO 2 HOUR STAT 08/13/2025 1:24 PM EDT MAGNESIUM, PLASMA STAT 08/13/2025 1:24 PM EDT LIPASE, PLASMA STAT 08/13/2025 1:24 PM EDT COMPREHENSIVE METABOLIC PANEL, PLASMA STAT 08/13/2025 1:24 PM EDT CBC WITH AUTO DIFFERENTIAL STAT 08/13/2025 1:24 PM EDT ECG ADULT STAT 08/13/2025 12:[address] OUTSIDE IMAGES 08/13/2025 6:18 AM EDT FREE T4, PLASMA Routine 08/03/2025 8:02 AM [...] ANESTHESIA PLACEHOLDER Routine 07/29/2025 1:16 PM EDT LA AN ELECTIVE ENDOTRACHEAL AIRWAY Routine 07/29/2025 1:16 PM EDT LA INSERT TUNNELED CV CATH WITH PORT 07/29/2025 [...] from Last 3 Months Results * (ABNORMAL) CBC and differential (08/18/2025 9:55 AM EDT) Only the most recent of6 resultswithin the time period is included. WBC Count 7.71 3.70 - 10.30 10*3/uL LAB HEMATOLOGY METHOD 08/18/2025 10:37 AM EDT [facility] RBC Count 3.49(L) 4.60 - 6.10 10*6/uL LAB HEMATOLOGY METHOD 08/18/2025 10:37 AM EDT [facility] HGB 10.5(L) 13.7 - 17.5 g/dL LAB HEMATOLOGY METHOD 08/18/2025 10:37 AM EDT [facility] HCT 31.7(L) 40.0 - 51.0 % LAB HEMATOLOGY METHOD 08/18/2025 10:37 AM EDT [facility] Platelet Count 276 155 - 369 10*3/uL LAB HEMATOLOGY METHOD 08/18/2025 10:37 AM EDT [facility] MCV 91 79 - 98 fL LAB HEMATOLOGY METHOD 08/18/2025 10:37 AM EDT [facility] MCH 30.1 26.0 - 32.0 pg LAB HEMATOLOGY METHOD 08/18/2025 10:37 AM EDT [facility] MCHC 33.1 30.7 - 35.5 g/dL LAB HEMATOLOGY METHOD 08/18/2025 10:37 AM EDT [facility] RDW 13.1 11.5 - 14.5 % LAB HEMATOLOGY METHOD 08/18/2025 10:37 AM EDT [facility] MPV 10.2 8.8 - 12.5 fL LAB HEMATOLOGY METHOD 08/18/2025 10:37 AM EDT [facility] nRBC 0.3(H) <=0.0 per 100 WBCs LAB HEMATOLOGY METHOD 08/18/2025 10:37 AM EDT [facility] Differential Type Automated LAB HEMATOLOGY METHOD 08/18/2025 10:37 AM EDT [facility] Neutrophils % 89 % LAB HEMATOLOGY METHOD 08/18/2025 10:37 AM EDT [facility] Lymphocytes % 7 % LAB HEMATOLOGY METHOD 08/18/2025 10:37 AM EDT [facility] Monocytes % 2 % LAB HEMATOLOGY METHOD 08/18/2025 10:37 AM EDT [facility] Eosinophils % 0 % LAB HEMATOLOGY METHOD 08/18/2025 10:37 AM EDT [facility] Basophils % 0 % LAB HEMATOLOGY METHOD 08/18/2025 10:37 AM EDT [facility] Immature Granulocytes % 2 % LAB HEMATOLOGY METHOD 08/18/2025 10:37 AM EDT [facility] Neutrophils Absolute 6.85(H) 1.60 - 6.10 10*3/uL LAB HEMATOLOGY METHOD 08/18/2025 10:37 AM EDT [facility] Lymphocytes Absolute 0.54(L) 1.20 - 3.90 10*3/uL LAB HEMATOLOGY METHOD 08/18/2025 10:37 AM EDT [facility] Monocytes Absolute 0.14(L) 0.30 - 0.90 10*3/uL LAB HEMATOLOGY METHOD 08/18/2025 10:37 AM EDT [facility] Eosinophils Absolute 0.00 0.00 - 0.50 10*3/uL LAB HEMATOLOGY METHOD 08/18/2025 10:37 AM EDT [facility] Basophils Absolute 0.02 0.00 - 0.10 10*3/uL LAB HEMATOLOGY METHOD 08/18/2025 10:37 AM EDT [facility] Immature Granulocytes Absolute 0.16(H) 0.00 - 0.06 10*3/uL LAB HEMATOLOGY METHOD 08/18/2025 10:37 AM EDT [facility] Blood Blood sample taken from central line / Unknown (Central Line) Existing Catheter / Unknown 08/18/2025 9:55 AM EDT 08/18/2025 10:35 AM EDT Narrative [facility] - 08/18/2025 10:37 AM EDT Therapeutic decision making should be based on absolute values, rather than percentages. us Que Gentile MD LAB BLOOD ORDERABLES Final R esult [facility] [address] [place] [id number] * (ABNORMAL) Comprehensive metabolic panel (08/18/2025 9:55 AM EDT) Only the most recent of5 resultswithin the time period is included. Glucose, Plasma 161(H) 74 - 99 mg/dL 08/18/2025 11:15 AM EDT [facility] BUN, Plasma 24(H) 8 - 23 mg/dL 08/18/2025 11:15 AM EDT [facility] Creatinine, Plasma 1.18 0.70 - 1.20 mg/dL 08/18/2025 11:15 AM EDT [facility] BUN/Creatinine Ratio 20 08/18/2025 11:15 AM EDT [facility] Sodium, Plasma 138 136 - 145 mmol/L 08/18/2025 11:15 AM EDT [facility] Potassium, Plasma 4.2 3.6 - 4.9 mmol/L 08/18/2025 11:15 AM EDT [facility] Chloride, Plasma 107 97 - 107 mmol/L 08/18/2025 11:15 AM EDT [facility] CO2, Plasma 19(L) 22 - 29 mmol/L 08/18/2025 11:15 AM EDT [facility] Anion Gap 12 6 - 16 mmol/L 08/18/2025 11:15 AM EDT [facility] Total Calcium, Plasma 8.6(L) 8.9 - 10.2 mg/dL 08/18/2025 11:15 AM EDT [facility] Total Protein 5.8(L) 6.3 - 7.9 g/dL 08/18/2025 11:15 AM EDT [facility] Albumin, Plasma 3.0(L) 3.5 - 5.2 g/dL 08/18/2025 11:15 AM EDT [facility] AST, Plasma 35 10 - 50 U/L 08/18/2025 11:15 AM EDT [facility] ALT, Plasma 47 10 - 50 U/L 08/18/2025 11:15 AM EDT [facility] Alkaline Phosphatase, Plasma 60 40 - 115 U/L 08/18/2025 11:15 AM EDT [facility] Total Bilirubin, Plasma 0.4 0.2 - 1.1 mg/dL 08/18/2025 11:15 AM EDT [facility] eGFRcr 66.4 mL/min/1.7 3m*2 08/18/2025 11:15 AM EDT [facility] Comment:Reported eGFRcr in m L/min/1.73m2 is based the CKD-EPI 2020 equation that does not use a race coefficient. Blood Blood sample taken from central line / Unknown (Central Line) Existing Catheter / Unknown 08/18/2025 9:55 AM EDT 08/18/2025 10:44 AM EDT us Que Gentile MD LAB BLOOD ORDERABLES Final R esult [facility] [address] [place] [address] * Lactate, venous (08/15/2025 4:20 AM EDT) Lactate, Venous, Whole Blood 1.2 0.5 - 2.2 mmol/L LAB HEMATOLOGY METHOD 08/15/2025 4:49 AM EDT [facility] Blood Venous blood specimen / Unknown Venipuncture / Unknown 08/15/2025 4:20 AM EDT 08/15/2025 4:48 AM EDT us Ana Rosa Fields MD LAB BLOOD ORDERABLES Final Resu lt Performing Organization Address [facility] Co de Phone Number [facility] [address] [place] [address] * Magnesium, Plasma (08/15/2025 4:20 AM EDT) Only the most recent of4 resultswithin the time period is included. [facility] Magnesium, Plasma 2.1 1.9 - 2.4 mg/dL 08/15/2025 5:16 AM EDT [facility] Blood Blood sample taken from central line / Unknown Venipuncture / Unknown 08/15/2025 4:20 AM EDT 08/15/2025 4:46 AM EDT us Ana Rosa Fields MD LAB BLOOD ORDERABLES Final Resu lt Performing Organization Address [facility] Co de Phone Number [facility] [address] [place] [address] * (ABNORMAL) POCT glucose meter (08/14/2025 11:49 PM EDT) [facility] POCT Glucose 105(H) 74 - 99 [...] 08/14/2025 11:52 PM EDT [facility] Mash Filter Press Operator ID Bisi [id number] 11:52 PM EDT [facility] Device ID [id number] 08/14/2025 11:52 PM EDT [facility] Specimen Type POC Capillary 08/14/2025 11:52 PM EDT [facility] Blood Capillary blood specimen / Unknown 08/14/2025 11:49 PM EDT 08/14/2025 11:52 PM EDT Ana Rosa Fields MD LAB POINT OF CARE TE ST DOCKED DEVICE UNSOLICITED RESULTS Final Result Performing Organization Address City/[facility]/ZIP Co de Phone Number [facility] [address] [place] [address] * Blood Culture (Aerobic/Anaerobet Set) (08/14/2025 11:06 AM EDT) Only the most recent of2 resultswithin the time period is included. Culture No growth at day 5 JULIO 08/19/2025 12:01 PM EDT [facility] Blood Structure of antecubital vein / Unknown Venipuncture / Unknown 08/14/2025 11:06 AM EDT 08/14/2025 11:37 AM EDT Ana Rosa Fields MD LAB [facility]OLOGY - [facility] Final Result Performing Organization Address City/[facility]/ZIP Co de Phone Number [facility] [address] [place] [address] * Comprehensive GI Panel by PCR (08/14/2025 10:21 AM EDT) Campylobacter PCR Result Not Detected Not Detected 08/15/2025 8:11 AM EDT [facility] Plesiomonas shigelloides PCR Result Not Detected Not Detected 08/15/2025 8:11 AM EDT [facility] Salmonella PCR Result Not Detected Not Detected 08/15/2025 8:11 AM EDT [facility] Vibrio species PCR Result Not Detected Not Detected 08/15/2025 8:11 AM EDT [facility] Vibrio cholerae PCR Result Not Detected Not Detected 08/15/2025 8:11 AM EDT [facility] Yersinia enterocolitica PCR Result Not Detected Not Detected 08/15/2025 8:11 AM EDT [facility] Enteroaggregative E. coli (EAEC) PCR Result Not Detected Not Detected 08/15/2025 8:11 AM EDT [facility] Enteropathogenic E. coli (EPEC) PCR Result Not Detected Not Detected 08/15/2025 8:11 AM EDT [facility] Enterotoxigenic E. coli (ETEC) lt/st PCR Result Not Detected Not Detected 08/15/2025 8:11 AM EDT [facility] Shiga-like Toxin-Producing E.coli (STEC) stx1/stx2 PCR Resu Not Detected Not Detected 08/15/2025 8:11 AM EDT [facility] E coli 0157 PCR Result Not Detected Not Detected 08/15/2025 8:11 AM EDT [facility] Shigella/Enteroinvas jenaro E. coli (EIEC) PCR Result Not Detected Not Detected 08/15/2025 8:11 AM EDT [facility] Cryptosporidium PCR Result Not Detected Not Detected 08/15/2025 8:11 AM EDT [facility] Cyclospora cayetanensis PCR Result Not Detected Not Detected 08/15/2025 8:11 AM EDT [facility] Entamoeba histolytica PCR Result Not Detected Not Detected 08/15/2025 8:11 AM EDT [facility] Giardia duodenalis (aka Giardia lamblia) PCR Result Not Detected Not Detected 08/15/2025 8:11 AM EDT [facility] Adenovirus F 40/41 PCR Result Not Detected Not Detected 08/15/2025 8:11 AM EDT [facility] Astrovirus PCR Result Not Detected Not Detected 08/15/2025 8:11 AM EDT [facility] Norovirus GI/GII PCR Result Not Detected Not Detected 08/15/2025 8:11 AM EDT [facility] Rotavirus A PCR Result Not Detected Not Detected 08/15/2025 8:11 AM EDT [facility] Sapovirus PCR Result Not Detected Not Detected 08/15/2025 8:11 AM EDT [facility] Stool Rectum structure / Unknown Non-blood Collection / Unknown 08/14/2025 10:21 AM EDT 08/14/2025 11:27 AM EDT [facility] - 08/15/2025 8:11 AM EDT This [...] difficile by PCR assay if clinically indicated. us Kalina Crandall MD LAB MICROBIOLOGY - GENERAL ORD ERABLES Final Result Performing Organization Address [facility] Co de Phone Number [facility] [address] [place] [address] * (ABNORMAL) Fecal Lactoferrin (08/14/2025 10:21 AM EDT) Fecal Lactoferrin Result Positive( A) Negative 08/14/2025 12:27 PM EDT [facility] Stool Rectum structure / Unknown Non-blood Collection / Unknown 08/14/2025 10:21 AM EDT 08/14/2025 11:27 AM EDT Narrative [facility] - 08/14/2025 12:27 PM EDT NOTE: If patient is a breastfed child, results may be falsely positive. us Kalina Crandall MD LAB MICROBIOLOGY - GENERAL ORD ERABLES Final Result Performing Organization Address [facility] de Phone Number [facility] [address] [place] [address] * (ABNORMAL) Clostridiodes (Clostridium) difficile PCR (08/14/2025 10:21 AM EDT) C difficile PCR toxin B gene DNA Result Detected, Reflex GDH/Toxin antigen test pending, see CDEIA for final result.(A) Not Detected 08/14/2025 12:34 PM EDT [facility] Comment:Reflex GDH/Toxin ant igen test pending, see CDEIA for final result. Stool Rectum structure / Unknown Non-blood Collection / Unknown 08/14/2025 10:21 AM EDT 08/14/2025 11:27 AM EDT Narrative [facility] - 08/14/2025 12:34 PM EDT This [...] MICROBIOLOGY - GENERAL ORD ERABLES Final Result [facility] [address] [place] [address] * (ABNORMAL) Calprotectin, Stool (08/14/2025 10:21 AM EDT) CALPROTECTIN 1470(H) <=49 ug/g 08/17/2025 8:54 PM EDT [facility] ([place]) Stool Stool specimen / Unknown Non-blood Collection / Unknown 08/14/2025 10:21 AM EDT 08/14/2025 11:27 AM EDT Narrative [facility] ([place]) - 08/17/2025 8:54 PM EDT REFERENCE INTERVAL: Calprotectin, Fecal by Immunoassay Less than 50 ug/g........Normal 50-120 ug/g..............Borderline elevated, test should be re-evaluated in 4-6 weeks. 121 ug/g or greater......Elevated Performed By: [employer] [address] [place] [address] Waitstaff: Kirk Camara MD, PhD CLIA Number: [id number] us Kalina Crandall MD LAB BODY FLUIDS AND STOOLS ORD ERABLES Final Result Performing Organization Address City/[facility] Co de Phone Number [facility] ([employer]) [address] [place] [address] * Clostridium difficile EIA (08/14/2025 10:21 AM EDT) C difficile EIA Interpretation C. difficile infection not likely. May represent colonization . Negative 08/15/2025 10:42 AM EDT [facility] Toxin Result Negative Negative 08/15/2025 10:42 AM EDT [facility] GDH Result Positive Negative 08/15/2025 10:42 AM EDT [facility] Stool Rectum structure / Unknown Non-blood Collection / Unknown 08/14/2025 10:21 AM EDT 08/14/2025 11:27 AM EDT Narrative [facility] - 08/15/2025 10:42 AM EDT This toxin/GDH assay was reflexed from a positive C. difficile PCR result. us Kalina Crandall MD LAB MICROBIOLOGY - GENERAL ORD ERABLES Final Result Performing Organization Address City/[facility]/ZIP Co de Phone Number [facility] [address] [place] [address] * (ABNORMAL) Sodium (08/14/2025 5:24 AM EDT) Only the most recent of2 resultswithin the time period is included. Sodium, Plasma 130(L) 136 - 145 mmol/L 08/14/2025 5:58 AM EDT [facility] Blood Venous blood specimen / Unknown Venipuncture / Unknown 08/14/2025 5:24 AM EDT 08/14/2025 5:35 AM EDT us Sara Castañeda MD LAB BLOOD ORDERABLES Final R esult Performing Organization Address City/[facility]/ZIP Co de Phone Number [facility] [address] [place] [address] * Phosphorus (08/13/2025 11:58 PM EDT) Only the most recent of2 resultswithin the time period is included. Phosphorus, Plasma 2.6 2.5 - 4.5 mg/dL 08/14/2025 12:41 AM EDT [facility] Blood Venous blood specimen / Unknown Venipuncture / Unknown 08/13/2025 11:58 PM EDT 08/14/2025 12:11 AM EDT us Sara Castañeda MD LAB BLOOD ORDERABLES Final R esult [facility] [address] [place] [address] * (ABNORMAL) Basic metabolic panel (08/13/2025 11:58 PM EDT) Glucose, Plasma 103(H) 74 - 99 mg/dL 08/14/2025 12:41 AM EDT [facility] BUN, Plasma 34(H) 8 - 23 mg/dL 08/14/2025 12:41 AM EDT [facility] Creatinine, Plasma 1.49(H) 0.70 - 1.20 mg/dL 08/14/2025 12:41 AM EDT [facility] BUN/Creatinine Ratio 23 08/14/2025 12:41 AM EDT [facility] Sodium, Plasma 133(L) 136 - 145 mmol/L 08/14/2025 12:41 AM EDT [facility] Potassium, Plasma 4.6 3.6 - 4.9 mmol/L 08/14/2025 12:41 AM EDT [facility] Comment:Hemolyzed, result ma y be falsely increased. Chloride, Plasma 100 97 - 107 mmol/L 08/14/2025 12:41 AM EDT [facility] CO2, Plasma 21(L) 22 - 29 mmol/L 08/14/2025 12:41 AM EDT [facility] Anion Gap 12 6 - 16 mmol/L 08/14/2025 12:41 AM EDT [facility] Total Calcium, Plasma 8.5(L) 8.9 - 10.2 mg/dL 08/14/2025 12:41 AM EDT [facility] eGFRcr 50.2 mL/min/1.7 3m*2 08/14/2025 12:41 AM EDT [facility] Comment:Reported eGFRcr in m L/min/1.73m2 is based the CKD-EPI 2020 equation that does not use a race coefficient. Blood Venous blood specimen / Unknown Venipuncture / Unknown 08/13/2025 11:58 PM EDT 08/14/2025 12:11 AM EDT us Sara Castañeda MD LAB BLOOD ORDERABLES Final R esult [facility] [address] [place] [address] * Sodium, urine, random (08/13/2025 7:39 PM EDT) Sodium, Urine <20 mmol/L 08/13/2025 8:14 PM EDT [facility] Urine Urine specimen obtained by clean catch procedure / Unknown Non-blood Collection / Unknown 08/13/2025 7:39 PM EDT 08/13/2025 7:52 PM EDT us Sara Castañeda MD LAB URINE ORDERABLES Final R esult Performing Organization Address City/[facility]/ZIP Co de Phone Number [facility] [address] [place] [address] * Osmolality, urine (08/13/2025 7:39 PM EDT) Osmolality, Urine 918 50 - 1,200 mOsm/kg 08/13/2025 8:41 PM EDT [facility] Urine Urine specimen obtained by clean catch procedure / Unknown Non-blood Collection / Unknown 08/13/2025 7:39 PM EDT 08/13/2025 7:55 PM EDT us Sara Castañeda MD LAB URINE ORDERABLES Final R esult Performing Organization Address City/[facility]/ZIP Co de Phone Number [facility] [address] [place] [address] * Troponin T, High Sensitivity, 2 Hour, Plasma (08/13/2025 3:27 PM EDT) Troponin T, High Sensitivity, 2 Hour 18 <19 ng/L 08/13/2025 4:00 PM EDT [facility] Troponin Delta 3 <10 ng/L 08/13/2025 4:00 PM EDT [facility] Troponin Delta Interpretation Not Significant 08/13/2025 4:00 PM EDT [facility] Comment:Not Significant. No acute change in troponin observed between the baseline and 2 hour samples. Blood Venous blood specimen / Unknown Venipuncture / Unknown 08/13/2025 3:27 PM EDT 08/13/2025 3:38 PM EDT us Kalina Crandall MD LAB BLOOD ORDERABLES Final Res ult Performing Organization Address [facility]/ZIP Co de Phone Number [facility] [address] [place] [address] * ED HIV 1/2 Antibody/Antigen Screen w/Reflex to HIV 1/2 Differentiation (08/13/2025 1:24 PM EDT) Pathologist [facility] HIV 1 & 2 Antibody/Antigen Screen Non Reactive Non Reactive 08/13/2025 2:30 PM EDT [facility] Comment:Screening for HIV 1 & 2 antibodies, and P24 antigen is NONREACTIVE. No confirmatory testing is required. Blood Venous blood specimen / Unknown Venipuncture / Unknown 08/13/2025 1:24 PM EDT 08/13/2025 1:37 PM EDT us Kalina Crandall MD LAB BLOOD ORDERABLES Final Res ult Performing Organization Address [facility] Co de Phone Number [facility] [address] [place] [address] * (ABNORMAL) Troponin now and 120 min (08/13/2025 1:24 PM EDT) Troponin T, High Sensitivity, 0 Hour 21(H) <19 ng/L 08/13/2025 1:54 PM EDT [facility] Blood Venous blood specimen / Unknown Venipuncture / Unknown 08/13/2025 1:24 PM EDT 08/13/2025 1:29 PM EDT us Kalina Crandall MD LAB BLOOD ORDERABLES Final Res ult Performing Organization Address City/[facility]/ZIP Co de Phone Number [facility] [address] [place] [address] * Hepatitis C Antibody - ED (08/13/2025 1:24 PM EDT) Pathologist [facility] Hepatitis C Antibody Negative Negative 08/13/2025 2:30 PM EDT [facility] Blood Venous blood specimen / Unknown Venipuncture / Unknown 08/13/2025 1:24 PM EDT 08/13/2025 1:37 PM EDT us Kalina Crandall MD LAB BLOOD ORDERABLES Final Res ult Performing Organization Address [facility] Co de Phone Number [facility] [address] [place] [address] * (ABNORMAL) BNP (08/13/2025 1:24 PM EDT) Pathologist [facility] N-Terminal, PROBNP, Plasma 7,989(H) 0 - 899 pg/mL 08/13/2025 1:55 PM EDT [facility] Blood Venous blood specimen / Unknown Venipuncture / Unknown 08/13/2025 1:24 PM EDT 08/13/2025 1:29 PM EDT us Kalina Crandall MD LAB BLOOD ORDERABLES Final Res ult Performing Organization Address [facility] [place] [address] * (ABNORMAL) C-Reactive protein (08/13/2025 1:24 PM EDT) Pathologist [facility] CRP, Plasma 294.3(H) <=8.0 mg/L 08/13/2025 1:55 PM EDT [facility] Blood Venous blood specimen / Unknown Venipuncture / Unknown 08/13/2025 1:24 PM EDT 08/13/2025 1:29 PM EDT Narrative [facility] - 08/13/2025 1:55 PM EDT This CRP test is appropriate for assessment of infection, systemic inflammation and/or tissue injury. To assess cardiovascular disease risk order high sensitivity CRP (CRPH). us Kalina Crandall MD LAB BLOOD ORDERABLES Final Res ult Performing Organization Address [facility]/State/ZIP Co de Phone Number [facility] [address] [place] [address] * (ABNORMAL) Osmolality (08/13/2025 1:24 PM EDT) Osmolality, Serum 277(L) 280 - 301 mOsm/Kg 08/13/2025 5:29 PM EDT [facility] Blood Venous blood specimen / Unknown Venipuncture / Unknown 08/13/2025 1:24 PM EDT 08/13/2025 1:29 PM EDT us Sara Castañeda MD LAB BLOOD ORDERABLES Final R esult Performing Organization Address City/[facility]/[place] [address] * (ABNORMAL) Lipase (08/13/2025 1:24 PM EDT) Pathologist [facility] Lipase, Plasma 6(L) 19 - 63 U/L 08/13/2025 1:55 PM EDT [facility] Blood Venous blood specimen / Unknown Venipuncture / Unknown 08/13/2025 1:24 PM EDT 08/13/2025 1:29 PM EDT us Kalina Crandall MD LAB BLOOD ORDERABLES Final Res ult Performing Organization Address City/[facility]/[place] [address] * CT OUTSIDE IMAGES (08/13/2025 6:18 AM EDT) Anatomical Region Laterality Modality Computed Tomogra phy 08/13/2025 6:18 AM EDT us Kenneth Daniel MD IMG CT PROCEDURES Edited Resul t - Final * (ABNORMAL) TSH Reflex FT4 (08/03/2025 8:02 AM EDT) Thyroid Stimulating Hormone, Plasma 0.34(L) 0.40 - 4.20 uIU/mL 08/03/2025 8:51 AM EDT [facility] Blood Blood sample taken from central line / Unknown (Port) Long-term Catheter / Unknown 08/03/2025 8:02 AM EDT 08/03/2025 8:13 AM EDT Que Gentile MD LAB BLOOD ORDERABLES Final R esult Performing Organization Address City/[facility]/ZIP Co de Phone Number [facility] [address] [place] [address] * Free T4, Plasma (08/03/2025 8:02 AM EDT) [facility] Free T4, Plasma 1.5 0.8 - 1.7 ng/dL 08/03/2025 9:14 AM EDT [facility] Blood Blood sample taken from central line / Unknown (Port) Long-term Catheter / Unknown 08/03/2025 8:02 AM EDT 08/03/2025 8:13 AM EDT Que Gentile MD LAB BLOOD ORDERABLES Final R esult Performing Organization Address City/[facility]/ZIP Co de Phone Number [facility] [address] [place] [address] * (ABNORMAL) Pulmonary function testing (08/02/2025 12:00 PM EDT) [facility] ZSH7VZW 4.57 3.31 - 5.64 L VYAIRE PFT FVC PRED 4.47 VYAIRE PFT FVC LLN 3.31 VYAIRE PFT FVCPREZSCORE 0.14 VYAIRE PFT FVCPRE%PRED 102 % % VYAIRE PFT FVC PREDAUT [facility] GLI (2011) VYAIRE PFT FVC Z-SCORE 0.14 VYAIRE PFT FEV1 PRE 3.45 2.42 - 4.24 L VYAIRE PFT FEV1 PRED 3.36 VYAIRE PFT FEV1 LLN 2.42 VYAIRE PFT FNJ3NQTOCNYPC 0.18 VYAIRE PFT FEV1_Pre%Pred 103 % % VYAIRE PFT FEV1 PREDAUT [facility] GLI (2011) VYAIRE PFT FEV1 Z-SCORE 0.18 VYAIRE PFT FEV1/FVC PRE 75.65 62.09 - 87.50 % VYAIRE PFT CIZ9VQJNROG 76 VYAIRE PFT ZSK9LAXGLW 62 VYAIRE PFT CRH2PHMNUDFHQPBM 0.01 VYAIRE PFT FSZ1VBJLXF%PRED 100 % % VYAIRE PFT GDI9DGMFSANK [facility] (2011) VYAIRE PFT CKY3JSLBBWLVA 0 VYAIRE PFT LDO70-30% PRE 2.65 1.08 - 4.52 L/s VYAIRE PFT JVT52-01%_Pred 2.50 VYAIRE PFT QNU8957%LLN 1.08 VYAIRE PFT FAM8328%PREZSCORE 0.14 VYAIRE PFT HTD3325%PRE%PRED 106 % % [facility]AIRE PFT VIX4493%[facility]ED[facility] (2011) VYAIRE PFT PEF PRE 13.66(A) 6.32 - 11.18 L/s VYAIRE PFT PEF PRED 8.75 VYAIRE PFT PEF LLN 6.32 VYAIRE PFT PEFPREZSCORE 3.33 VYAIRE PFT PEFPRE%PRED 156 % % VYAIRE PFT PEF PREDAUT [facility]AN[facility] III (1998) VYAIRE PFT TVJULPSNNPZOQJZB2WRW 16.30(A) 19.85 - 35.57 ml/(min* mmHg) VYAIRE PFT DLCOSINGLEBREATH PRED 27.02 VYAIRE PFT DLCOSINGLEBREATH LLN 19.85 VYAIRE PFT DLCOSINGLEBREATH Z-SCORE -2.60 VYAIRE PFT DLCOSINGLEBREATH % PRED 60.3 % VYAIRE PFT DLCOSINGLEBREATH PREDGunn[facility] HospitalO GLI (2019) VYAIRE PFT DLCOSINGLEBREATH Z-SCORE -2.60 08/02/2025 12:05 PM EDT VYAIRE PFT PYDMPEWUMUQXJLKGE0AG E 16.90(A) 19.85 - 35.57 ml/(min* mmHg) VYAIRE PFT DLCOCSINGLEBREATH PRED 27.02 VYAIRE PFT DLCOCSINGLEBREATH LLN 19.85 VYAIRE PFT DLCOCSINGLEBREATH Z-SCORE -2.43 VYAIRE PFT DLCOCSINGLEBREATH % PRED 62.5 % VYAIRE PFT DLCOCSINGLEBREATH PREDAUT Stanojevic TLCO GLI (2019) VYAIRE PFT KXWWQA1GAO 2.90(A) 2.96 - 5.12 ml/(min* mmHg*L) VYAIRE PFT DLCOVAPRED 3.99 VYAIRE PFT DLCOVALLN 2.96 VYAIRE PFT DLCOVAZSCORE -1.75 VYAIRE PFT DLCOVA%PRED 72.6 % VYAIRE PFT DLCOVAPREDAUT Stanojevic TLCO GLI (2019) VYAIRE PFT DLCOVAZSCORE -1.75 08/02/2025 12:05 PM EDT VYAIRE PFT YAKXJKEBM8IVT 3.00 2.96 - 5.12 ml/(min* mmHg*L) VYAIRE PFT DLCOC SB/VA PRED 3.99 VYAIRE PFT DLCOC SB/VA LLN 2.96 VYAIRE PFT DLCOC SB/VA Z-SCORE -1.57 VYAIRE PFT DLCOC SB/VA % PRED 75.2 % VYAIRE PFT DLCOC SB/VA PREDAUT Stanojevic TLCO GLI (2019) VYAIRE PFT DLCOC SB/VA Z-SCORE -1.57 08/02 12:05 PM EDT VYAIRE PFT GAFMPYKHOKUREH8EZN 5.63 5.48 - 8.24 L VYAIRE PFT VASINGLEBREATH PRED 6.80 VYAIRE PFT VASINGLEBREATH LLN 5.48 VYAIRE PFT VASINGLEBREATH Z-SCORE -1.46 VYAIRE PFT VASINGLEBREATH % PRED 82.7 % VYAIRE PFT VASINGLEBREATH PREDAUT Stanojevic TLCO GLI (2019) VYAIRE PFT VASINGLEBREATH Z-SCORE -1.46 08/02/2025 12:05 PM EDT VYAIRE PFT PCCVSOHZIRDFXES6ZCP 4.44 3.31 - 5.64 L VYAIRE PFT IVCSINGLEBREATH PRED 4.47 VYAIRE PFT IVCSINGLEBREATH LLN 3.31 VYAIRE PFT IVCSINGLEBREATH Z-SCORE -0.04 VYAIRE PFT IVCSINGLEBREATH % PRED 99.4 % VYAIRE PFT IVCSINGLEBREATH PREDAt[facility] (2011) VYAIRE PFT AZALEA% VCMAX PRE 96.17 % VYAIRE PFT TLC SB PRE 5.83(A) 5.97 - 9.15 L VYAIRE PFT TLCSINGLEBREATH PRED 7.55 VYAIRE PFT TLCSINGLEBREATH LLN 5.97 VYAIRE PFT TLCSINGLEBREATH Z-SCORE -1.79 VYAIRE PFT TLCSINGLEBREATH % PRED 77.2 % VYAIRE PFT TLCSINGLEBREATH PREDBever[facility] Lung volumes GLI (2019)__ VYAIRE PFT HB PRE 13.40 g(Hb)/dL VYAIRE PFT HYH0ICH 6.59 5.97 - 9.15 L VYAIRE PFT TLCPRED 7.55 VYAIRE PFT TLCLLN 5.97 VYAIRE PFT TLCULN 9.15 VYAIRE PFT TLCZSCORE -1.00 VYAIRE PFT TLC%PRED 87.3 % [facility]AIRE PFT TLCPREDBeverly Hospital Lung volumes GLI (2019)__ VYAIRE PFT VC0PRE 4.62 3.31 - 5.64 L VYAIRE PFT VCPRED 4.47 VYAIRE PFT VCLLN 3.31 VYAIRE PFT VCULN 5.64 VYAIRE PFT VCZSCORE 0.21 VYAIRE PFT VC%PRED 103.3 % VYAIRE PFT VCPREDAUTUNM [facility]jer [facility] (2011) VYAIRE PFT IC0PRE 3.64 2.40 - 4.44 L VYAIRE PFT ICPRED 3.44 VYAIRE PFT ICLLN 2.40 VYAIRE PFT ICULN 4.44 VYAIRE PFT IC Z-SCORE 0.32 VYAIRE PFT IC%PRED 105.7 % VYAIRE PFT ICPREDAUT [facility] volumes GLI (2019)__ VYAIRE PFT TGIBEELB7RRN 2.95 2.88 - 5.71 L VYAIRE PFT FRCPLETH PRED 4.13 VYAIRE PFT FRCPLETH LLN 2.88 VYAIRE PFT FRCPLETH ULN 5.71 VYAIRE PFT FRCPLETH Z-SCORE -1.53 VYAIRE PFT FRCPLETH % PRED 71.4 % VYAIRE PFT FRCPLETH PREDAUTH [facility] volumes GLI (2019)__ VYAIRE PFT HYM4QUD 0.98 0.43 - 2.72 L VYAIRE PFT ERVPRED 1.35 VYAIRE PFT ERVLLN 0.43 VYAIRE PFT ERVULN 2.72 VYAIRE PFT ERV Z-SCORE -0.58 VYAIRE PFT ERV%PRED 72.1 % VYAIRE PFT ERVPREDAUT [facility] volumes GLI (2019)__ VYAIRE PFT RV0PRE 1.98 1.60 - 4.02 L VYAIRE PFT RVPRED 2.70 VYAIRE PFT RVLLN 1.60 VYAIRE PFT RVULN 4.02 VYAIRE PFT RVZSCORE -1.04 VYAIRE PFT RV%PRED 73.2 % VYAIRE PFT RVPREDAUTH [facility] volumes GLI (2019)__ VYAIRE PFT RV%DEB6BZU 29.97 24.30 - 47.37 % VYAIRE PFT [...] testing today at the [facility]. The patient underwent spirometry, lung volumes [...] signing this report, I, the attending physician, juicethat I have personally reviewed the images/data for [...] IMG FLUOROSCOPY PROCEDURES Final Result IMAGING * LA AN ELECTIVE ENDOTRACHEAL AIRWAY, PB ANESTHESIA PLACEHOLDER [...] is no recent study available for direct xxnq-rb-scfo comparison. Left Ventricle Based on the linear [...] is no recent study available for direct ztvq-sp-yvup comparison. us Kim Machado MD CV ECHO [...] raised. PET/CT scanner: Nicol 550. PET/CT acquisition: Pxtpiu-je-fbu-thighs. Standardized uptake value (SUV): Corrected for body weight only. CT: Low-dose, deo-ipbofv-hupi, without intravenous contrast. TOTAL DLP (Dose Length [...] lytic or sclerotic lesions within the imaged yftto-dr-gsis. Multilevel degenerative changes. Procedure Note Quoc Pratt [...] raised. PET/CT scanner: Nicol 550. PET/CT acquisition: Uvbcbj-km-ogk-thighs. Standardized uptake value (SUV): Corrected for body weight only. CT: Low-dose, bin-cfemxw-pvtn, without intravenous contrast. TOTAL DLP (Dose Length [...] max 3.5 without definite large lymph nodes ([id number] image 450) No suspicious metabolically active pulmonary [...] difficult to evaluate because of under distention. ([id number] image 390). SUV max 29.7. Prostate gland [...] osseous lytic orsclerotic lesions within the imaged zbnnn-es-epde. Multilevel degenerative changes. IMPRESSION: *Intense radiotracer activity [...] LAB COAGULATION METHOD 07/21/2025 11:28 AM EDT [facility] Blood Venous blood specimen / Unknown Venipuncture / Unknown 07/21/2025 10:45 AM EDT 07/21/2025 11:10 AM EDT Rachel Jonas APRN LAB BLOOD ORDERABLES Final R esult [facility] [address] [place] [address] * Prothrombin Time/INR (07/21/2025 10:45 AM EDT) Prothrombin Time 14.2 12.0 - 14.3 sec LAB COAGULATION METHOD 07/21/2025 11:28 AM EDT [facility] INR 1.1 0.9 - 1.1 LAB COAGULATION METHOD 07/21/2025 11:28 AM EDT [facility] Blood Venous blood specimen / Unknown Venipuncture / Unknown 07/21/2025 10:45 AM EDT 07/21/2025 11:10 AM EDT Narrative [facility] - 07/21/2025 11:28 AM EDT OPTIMAL INR RANGES FOR PATIENT ON ORAL ANTICOAGULANT THERAPY Prevention of venous thromboembolism INR 2.0 to 3.0 In patients with heart disease: Atrial fibrillation INR 2.0 to 3.0 Valvular heart disease INR 2.0 to 3.0 Tissue heart valves INR 2.0 to 3.0 Mechanical prosthetic valves INR 2.5 to 3.5 Prevention of recurrent MS INR 2.5 to 3.5 us Rachel Jonas [employer] LAB BLOOD ORDERABLES Final R esult [facility] [address] [place] [address] * Surgical Pathology Consult (07/07/2025 10:15 AM EDT) Case Report Sugical Pathology Consult Case: [id number] Authorizing Provider: Kim Machado MD Collected: 07/07/2025 1015 Ordering Location: [facility] Lab Received: 07/07/2025 1016 Pathologist: Mi Hale MD Specimen: Stomach, [id number] 07/07/2025 1:31 PM EDT [facility] Final Diagnosis GASTROESOPHAGEAL JUNCTION, BIOPSY ([id number]; ): - 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 STOMACH, BIOPSY ([id number]; ): - NO PATHOLOGIC ABNORMALITIES. - NO H. PYLORI ORGANISMS IDENTIFIED ON H&E SLIDE. STOMACH, POLYP, BIOPSY ([id number]; ): - FUNDIC GLAND POLYP. 07/07/2025 1:31 PM EDT [facility] at 1331 EDT Comment Per pathology [...] promoter methylation study) 07/07/2025 1:31 PM EDT [facility] Clinical Information R13.10 - Dysphagia, unspecified [ICD-10-CM] 07/07/2025 1:31 PM EDT [facility] Gross Description A. [id number] Received along with a corresponding pathology report from [facility] are 11 slide(s) labeled outside case: [id number] collected on 06/17/2025. 07/07/2025 1:31 PM EDT [facility] Note: A resident was involved in the service. I attest I examined the relevant preparations for the specimens and confirmed the diagnosis or interpretation. 07/07/2025 1:31 PM EDT [facility] Tissue Stomach structure / Unknown 07/07/2025 10:15 AM EDT 07/07/2025 10:16 AM EDT us Kim Machado MD LAB PATHOLOGY ORDERABLES Final Result [facility] [address] [place] [address] from Last 3 Months Additional Health Concerns Infection Onset Date Last Indicated C. difficile 08/14/2025 08/14/2025 Insurance [facility] MEDICARE Advance Directives * Full Code (Latest Code Status on File) Date Activated Date Inactivated Comments 08/13/2025 4:10 PM 08/15/2025 9:58 PM Question Answer Comments I have reviewed the capacity from the link above and, if needed, have updated to appropriate status: Yes Care Teams Kier Drier Relationship Specialty Start Date End Date Darius Ken MD [address] [place] [id number] PCP - General Internal Medicine 08/23/24
--- OUTSIDE RECORDS SUMMARY | 2025-08-26 07:15 | XMS_ITS | Encounter Summary ---
Author Organization Healthcare Address [address] [place] [id number] Care Team Providers Care Laborer Hoisting Name Role Phone Darius Ken MD Primary Care Provider [phone] Encounter Details Date Type Department Care Team (Latest Contact Info) Description 08/18/2025 Travel Social History Tobacco Use Types Packs/Day [...] any time in the past [address] [facility], were you homeless or living in a jail (including now)? No 08/15/2025 [facility] Utilities Answer Date Recorded In the [...] Du CNA documented as of this encounter Plan of Treatment Upcoming Encounters Date Type Department Care Team (Latest Contact Info) Description 09/01/2025 9:15 AM EDT Clinical Support [facility] Multidisciplinary Oncology Clinic [address] [place] [address] 09/01/2025 9:30 AM EDT Office Visit [facility] Multidisciplinary Oncology Clinic [address] [place] [address] Aristides Reina MD [address] [place] [address] 09/01/2025 11:00 AM EDT Appointment [facility] [address] [place] [address] 09/03/2025 10:30 AM EDT Appointment [facility] [address] [place] [address] 09/15/2025 9:30 AM EST Appointment [facility] 2 [address] [place] [address] 09/17/2025 9:00 AM EST Appointment [facility] [address] [place] [address] 09/21/2025 8:45 AM EST Office Visit [facility] [place] [address] [facility], [address] [place] [address] Juarez Recinos MD [address] [place] [address] 09/28/2025 8:00 AM EST Appointment [facility] PET Scan [address] [place] [address] 09/28/2025 9:00 AM EST Appointment [facility] PET Scan [address] [place] [address] 09/28/2025 10:15 AM EST Office Visit [facility] [address] [place] [address], 2nd [place] [address] Kim Machado MD [address] [place] [address] 01/13/2026 12:00 PM EST Office Visit [facility] [address] [place] [address] Eros Mejia MD [address] [place] [address] documented as of this encounter Visit Diagnoses Not on filedocumented in this encounter Additional Health Concerns Infection [...] documented as of this encounter Care Teams Laborer Hoisting Relationship Specialty Start Date End Date Darius Ken MD [address] [place] [address] PCP - General Internal Medicine 08/23/24 documented as of this encounter
--- OUTSIDE RECORDS SUMMARY | 2025-08-26 07:15 | XMS_ITS ---
Author Organization [facility] Address [address] [place] [address] Care Team Providers Care Metal Polisher And Buffer Apprentice Name Role Phone Darius Ken MD Primary Care Provider [phone] Active Problems Problem Noted Date Diagnosed Date [...] junction Treatment Medications Current Day (Day 1 7, Cycle 1 - Planned for 08/20/2025) Next Day (Day 21, Cycle 1 - Planned for 08/24/2025) 5-FU (Adrucil) infusion - fo r home use ([facility] supplied) CADD [id number]-[id number] CHEMO INFUSION ([facility] SUPPLIED) CADD ORDERABLEDOCEtaxel (Taxotere)DOCEtaxel (Taxotere) chemo IVPB 250 mLdurvalumab (Imfinzi)durvalumab (Imfinzi) IVPBOxaliplatin (Eloxatin)OXALIplatin (Eloxatin) IVPB No medications scheduled. No medications scheduled. 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 Past Treatment and Therapy Plans No past plan information found. Lifetime Dose Tracking * Chemical Lifetime Dose Automatic Entry Manual Entr y Fluoro Time 0.018 minutes 0.018 minutes 0 minutes Air Kerma 0.169 mGy 0.169 mGy 0 mGy
--- OUTSIDE RECORDS SUMMARY | 2025-08-26 07:15 | XMS_ITS | Encounter Summary ---
Author Organization Healthcare Address [address] [place] [address] Care Team Providers Care Commercial Announcer Name Role Phone Darius Ken MD Primary Care Provider [phone] Encounter Details Date Type Department Care Team (Late st Contact Info) Description 07/07/2025 Lab Requisition [facility] [address] [place] [address] Kim Machado MD [address] [facility] [address] [place] [address] Dysphagia, unspecified Social History Tobacco Use Types [...] Clinical Support [facility] [address] [place] [address] 09/01/2025 9:30 AM EDT Office Visit [facility] [address] [place] [address] Aristides Reina MD [address] [place] [address] 09/01/2025 11:00 AM EDT Appointment [facility] 2 [address] [place] [address] 09/03/2025 10:30 AM EDT Appointment [facility] 2 [address] [place] [address] 09/15/2025 9:30 AM EST Appointment [facility] 2 [address] [place] [address] 09/17/2025 9:00 AM EST Appointment [facility] 2 4 [place] [address] 09/21/2025 8:45 AM EST Office Visit [facility] [place] [address] [facility], [address] [place] [address] Juarez Recinos MD [address] [place] [id number] 09/28/2025 8:00 AM EST Appointment [facility] PET Scan [address] [place] [address] 09/28/2025 9:00 AM EST Appointment [facility] PET Scan [address] [place] [address] 09/28/2025 10:15 AM EST Office Visit [facility] [address] [facility], 2nd [place] [address] Kim Machado MD [address] [place] [address] 01/13/2026 12:00 PM EST Office Visit [facility] [address] [place] [address] Eros Mejia MD [address] [place] [address] [phone] (work) documented as of this encounter Procedures Procedure Name Priority Date/Time Associated Diagnosis Comments SURGICAL PATHOLOGY CONSULT Routine 07/07/2025 10:15 AM EDT Dysphagia, unspecified documented in this encounter Results * Surgical Pathology Consult (07/07/2025 10:15 AM EDT) Case Report Sugical Pathology Consult Case: [id number] Authorizing Provider: Kim Machado MD Collected: 07/07/2025 1015 Ordering Location: [facility] Lab Received: 07/07/2025 1016 Pathologist: Mi Hale MD Specimen: Stomach, [id number] 07/07/2025 1:31 PM EDT [facility] Final Diagnosis GASTROESOPHAGEAL JUNCTION, BIOPSY ([id number] C; ): - 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 STOMACH, BIOPSY ([id number] A; ): - NO PATHOLOGIC ABNORMALITIES. - NO H. PYLORI ORGANISMS IDENTIFIED ON H&E SLIDE. STOMACH, POLYP, BIOPSY ([id number] B; ): - FUNDIC GLAND POLYP. 07/07/2025 1:31 PM EDT [facility] at 1331 EDT Comment Per pathology report [...] promoter methylation study) 07/07/2025 1:31 PM EDT [facility] Clinical Information R13.10 - Dysphagia, unspecified [ICD-10-CM] 07/07/2025 1:31 PM EDT [facility] Gross Description A. [id number] Received along with a corresponding pathology report from [facility] are 11 slide(s) labeled outside case: [id number] collected on 06/17/2025. 07/07/2025 1:31 PM EDT [facility] Note: A resident was involved in the service. I attest I examined the relevant preparations for the specimens and confirmed the diagnosis or interpretation. 07/07/2025 1:31 PM EDT [facility] Tissue Stomach structure / Unknown 07/07/2025 10:15 AM EDT 07/07/2025 10:16 AM EDT us Kim Machado MD LAB PATHOLOGY ORDERABLES Final Result [facility] [address] [place] [address] documented in this encounter Visit Diagnoses Diagnosis [...] documented as of this encounter Care Teams Commercial Announcer Relationship Specialty Start Date End Date Darius Ken MD [address] [place] [address] PCP - General Internal Medicine 08/23/24 documented as of this encounter
--- OUTSIDE RECORDS SUMMARY | 2025-08-26 07:15 | XMS_ITS | Encounter Summary ---
Author Organization Healthcare Address [address] [place] [address] Care Team Providers Care Business Analysis Analyst Name Role Phone Darius Ken MD Primary Care Provider [phone] Encounter Details Date Type Department Care Team [...] Clinical Support [facility] [address] [place] [address] 09/01/2025 9:30 AM EDT Office Visit [facility] [address] [place] [address] Aristides Reina MD [address] [place] [address] 09/01/2025 11:00 AM EDT Appointment [facility] 2 [address] [place] [address] 09/03/2025 10:30 AM EDT Appointment [facility] 2 [address] [place] [address] 09/15/2025 9:30 AM EST Appointment [facility] 2 [address] [place] [address] 09/17/2025 9:00 AM EST Appointment [facility] 2 [address] [place] [address] 09/21/2025 8:45 AM EST Office Visit [facility] [place] [address] [facility], [address] [place] [address] Juarez Recinos MD [address] [place] [address] 09/28/2025 8:00 AM EST Appointment [facility] PET Scan [address] [place] [address] 09/28/2025 9:00 AM EST Appointment [facility] PET Scan [address] [place] [address] 09/28/2025 10:15 AM EST Office Visit [facility] [address] [facility], 2nd [place] [address] Kim Machado MD [address] [facility] [address] [place] [address] 01/13/2026 12:00 PM EST Office Visit [facility] [address] [place] [address] Eros Mejia MD [address] [place] [address] documented as of this encounter Visit Diagnoses Not on filedocumented in this encounter Additional Health Concerns Assessment Noted Time A fall risk assessment has been complete d for the patient 07/06/2025 2:29 PM EDT A Body Mass Index follow-up plan has been documented for the patient 07/07/2025 10:51 PM EDT documented as of this encounter Care Teams Business Analysis Analyst Relationship Specialty Start Date End Date Darius Ken MD [address] [place] [address] PCP - General Internal Medicine 08/23/24 documented as of this encounter
--- OUTSIDE RECORDS SUMMARY | 2025-08-26 07:15 | XMS_ITS | Encounter Summary ---
Author Organization [facility] Address [address] 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 Procedures PET/CT FDG Skull Base To Mid Thigh Kim Machado MD [address] [place] [address] Phone: tel: fax: Referral ID Status Reason Start Date Expiration Date V isits Requested Visits Authorized [id number] Pending Review 08/11/2025 02/10/2027 2 2 Encounter Details Date Type Department Care Team (Late st Contact Info) Description 08/11/2025 Orders Only [facility] [address] [facility], 2nd [place] [address] Jeanine Bhandari, RN Malignant neoplasm of overlapping [...] Clinical Support [facility] [address] [place] [address] 09/01/2025 9:30 AM EDT Office Visit [facility] [address] [place] [address] Aristides Reina MD [address] [place] [address] 09/01/2025 11:00 AM EDT Appointment [facility] 2 [address] [place] [address] 09/03/2025 10:30 AM EDT Appointment [facility] 2 [address] [place] [address] 09/15/2025 9:30 AM EST Appointment [facility] 2 [address] [place] [address] 09/17/2025 9:00 AM EST Appointment [facility] 2 4 [place] [address] 09/21/2025 8:45 AM EST Office Visit [facility] [place] [address] [facility], [address] [place] [address] Juarez Recinos MD [address] [place] [address] 09/28/2025 8:00 AM EST Appointment [facility] PET Scan [address] [place] [address] 09/28/2025 9:00 AM EST Appointment [facility] PET Scan [address] [place] [address] 09/28/2025 10:15 AM EST Office Visit [facility] [address] [facility], 2nd [place] [address] Kim Machado MD [address] [place] [address] 01/13/2026 12:00 PM EST Office Visit [facility] [address] [place] [address] Eros Mejia MD [address] [place] [address] Scheduled Orders Name Type Priority [...] documented as of this encounter Care Teams Inspector Floor Sub Assembly Relationship Specialty Start Date End Date Darius Ken MD [address] [place] [address] PCP - General Internal Medicine 08/23/24 documented as of this encounter
--- OUTSIDE RECORDS SUMMARY | 2025-08-26 07:15 | XMS_ITS | Encounter Summary ---
Author Organization Healthcare Address [address] [place] [address] Care Team Providers Care Vp Customer Service Name Role Phone Darius Ken MD Primary Care Provider [phone] Encounter Details Date Type Department Care Team [...] Support [facility] [address] [place] [address] 09/01/2025 9:30 AM EDT Office Visit [facility] [address] [place] [address] Aristides Reina MD 800 [place] [address] 09/01/2025 11:00 AM EDT Appointment [facility] 2 [address] [place] [address] 09/03/2025 10:30 AM EDT Appointment [facility] 2 [address] [place] [address] 09/15/2025 9:30 AM EST Appointment [facility] 2 [address] [place] [address] 09/17/2025 9:00 AM EST Appointment [facility] 2 [address] [place] [address] 09/21/2025 8:45 AM EST Office Visit [facility] [place] [address] [facility], [address] [place] [address] Juarez Recinos MD [address] [place] [address] 09/28/2025 8:00 AM EST Appointment [facility] PET Scan [address] [place] [address] 09/28/2025 9:00 AM EST Appointment [facility] PET Scan [address] [place] [address] 09/28/2025 10:15 AM EST Office Visit [facility] [address] [facility], 2nd [place] [address] Kim Machado MD [address] [facility] [address] [place] [address] 01/13/2026 12:00 PM EST Office Visit [facility] [address] [place] [address] Eros Mejia MD [address] [place] [address] documented as of this encounter Visit Diagnoses Not on filedocumented in this encounter Additional Health Concerns Assessment Noted Time A fall risk assessment has been complete d for the patient 08/05/2025 10:30 AM EDT A Body Mass Index follow-up plan has been documented for the patient 07/27/2025 3:02 PM EDT documented as of this encounter Care Teams Vp Customer Service Relationship Specialty Start Date End Date Darius Ken MD [address] [place] [address] PCP - General Internal Medicine 08/23/24 documented as of this encounter
--- OUTSIDE RECORDS SUMMARY | 2025-08-26 07:15 | XMS_ITS | Encounter Summary ---
Author Organization Healthcare Address [address] [place] [address] Care Team Providers Care Student Loan Counselor Name Role Phone Darius Ken MD Primary Care Provider [phone] Encounter Details Date Type Department Care Team [...] Clinical Support [facility] [address] [place] [address] 09/01/2025 9:30 AM EDT Office Visit [facility] [address] [place] [address] Aristides Reina MD [address] [place] [address] 09/01/2025 11:00 AM EDT Appointment [facility] 2 [address] [place] [address] 09/03/2025 10:30 AM EDT Appointment [facility] 2 [address] [place] [address] 09/15/2025 9:30 AM EST Appointment [facility] 2 [address] [place] [address] 09/17/2025 9:00 AM EST Appointment [facility] 2 [address] [place] [address] 09/21/2025 8:45 AM EST Office Visit [facility] [place] [address] [facility], [address] [place] [address] Juarez Recinos MD [address] [place] [address] 09/28/2025 8:00 AM EST Appointment [facility] PET Scan [address] [place] [address] 09/28/2025 9:00 AM EST Appointment [facility] PET Scan [address] [place] [address] 09/28/2025 10:15 AM EST Office Visit [facility] [address] [facility], 2nd [place] [address] Kim Machado MD [address] [facility] [address] [place] [address] 01/13/2026 12:00 PM EST Office Visit [facility] [address] [place] [address] Eros Mejia MD [address] [place] [address] documented as of this encounter Visit Diagnoses Not on filedocumented in this encounter Additional Health Concerns Assessment Noted Time A fall risk assessment has been complete d for the patient 07/27/2025 12:23 PM EDT A Body Mass Index follow-up plan has been documented for the patient 07/27/2025 3:02 PM EDT documented as of this encounter Care Teams Student Loan Counselor Relationship Specialty Start Date End Date Darius Ken MD [address] [place] [address] PCP - General Internal Medicine 08/23/24 documented as of this encounter
--- OUTSIDE RECORDS SUMMARY | 2025-08-26 07:15 | XMS_ITS | Encounter Summary ---
Author Organization Healthcare Address [address] [place] [address] Care Team Providers Care Videotape Recording Engineer Name Role Phone Darius Ken MD Primary Care Provider [phone] Encounter Details Date Type Department Care Team (Late st Contact Info) Description 12/28/2024 Orders Only External Location [address] [place] [address] Provider, External Social History Tobacco Use Types [...] Clinical Support [facility] [address] [place] [address] 09/01/2025 9:30 AM EDT Office Visit [facility] [address] [place] [address] Aristides Reina MD [address] [place] [address] 09/01/2025 11:00 AM EDT Appointment [facility] 2 [address] [place] [address] 09/03/2025 10:30 AM EDT Appointment [facility] 2 [address] [place] [address] 09/15/2025 9:30 AM EST Appointment [facility] Infusion Clinic 2 [address] [place] [address] 09/17/2025 9:00 AM EST Appointment [facility] 2 [address] [place] [address] 09/21/2025 8:45 AM EST Office Visit [facility] [place] [address] [facility], [address] [place] [address] Juarez Recinos MD [address] [place], [place] [address] 09/28/2025 8:00 AM EST Appointment [facility] PET Scan [address] [place] [address] 09/28/2025 9:00 AM EST Appointment [facility] PET Scan [address] [place] [address] 09/28/2025 10:15 AM EST Office Visit [facility] [address] [facility], 2nd [place] [address] Kim Machado MD [address] [facility] [address] [place] [address] 01/13/2026 12:00 PM EST Office Visit [facility] [address] [place] [address] [place] [address] Eros Mejia MD [address] [place] [address] documented as of this encounter [...] documented as of this encounter Care Teams Videotape Recording Engineer Relationship Specialty Start Date End Date Darius Ken MD [address] [place] [address] PCP - General Internal Medicine 08/23/24 documented as of this encounter
--- OUTSIDE RECORDS SUMMARY | 2025-08-26 07:15 | XMS_ITS | Encounter Summary ---
Author Organization Healthcare Address [address] [place] [address] Care Team Providers Care Animal Chiropractor Name Role Phone Darius Ken MD Primary Care Provider [phone] Encounter Details Date Type Department Care Team (Late st Contact Info) Description 08/10/2025 Orders Only [facility] [address] [place] [address] Aristides Reina MD [address] [place] [address] Social History Tobacco Use Types Packs/Day Years [...] any time in the past 12 m [facility], were you homeless or living in a residential (including now)? No 08/15/2025 [facility] Utilities Answer Date Recorded In the [...] Cristina Yo documented as of this encounter Plan of Treatment Upcoming Encounters Date Type Department Care Team (Latest Contact Info) Description 09/01/2025 9:15 AM EDT Clinical Support [facility] [address] [place] [address] 09/01/2025 9:30 AM EDT Office Visit [facility] [address] [place] [address] Aristides Reina MD [address] [place] [address] 09/01/2025 11:00 AM EDT Appointment [facility] 2 [address] [place] [address] 09/03/2025 10:30 AM EDT Appointment [facility] 2 [address] [place] [address] 09/15/2025 9:30 AM EST Appointment [facility] 2 [address] [place] [address] 09/17/2025 9:00 AM EST Appointment [facility] 2 4 [place] [address] 09/21/2025 8:45 AM EST Office Visit [facility] [place] [address] [facility], [address] [place] [address] Juarez Recinos MD [address] [place] [address] 09/28/2025 8:00 AM EST Appointment [facility] PET Scan [address] [place] [address] 09/28/2025 9:00 AM EST Appointment [facility] PET Scan [address] [place] [address] 09/28/2025 10:15 AM EST Office Visit [facility] [address] [facility], 2nd [place] [address] Kim Machado MD [address] [place] [address] [place] [address] 01/13/2026 12:00 PM EST Office Visit [facility] [address] [place] [address] Eros Mejia MD [address] [place] [address] documented as of this encounter Visit [...] as of this encounter Care Teams Animal Chiropractor Relationship Specialty Start Date End Date Darius Ken MD [address] [place] [address] PCP - General Internal Medicine 08/23/24 documented as of this encounter
--- OUTSIDE RECORDS SUMMARY | 2025-08-26 07:15 | XMS_ITS | Encounter Summary ---
Author Organization Healthcare Address [address] [place] [address] Care Team Providers Care Guest Services Director Name Role Phone Darius Ken MD Primary Care Provider [phone] Encounter Details Date Type Department Care Team [...] Clinical Support [facility] [address] [place] [address] 09/01/2025 9:30 AM EDT Office Visit [facility] [address] [place] [address] Aristides Reina MD 800 [place] [address] 09/01/2025 11:00 AM EDT Appointment [facility] 2 [address] [place] [address] 09/03/2025 10:30 AM EDT Appointment [facility] 2 [address] [place] [address] 09/15/2025 9:30 AM EST Appointment [facility] 2 [address] [place] [address] 09/17/2025 9:00 AM EST Appointment [facility] 2 [address] [place] [address] 09/21/2025 8:45 AM EST Office Visit [facility] [place] [address] [facility], [address] [place] [address] Juarez Recinos MD 800 [place] [address] 09/28/2025 8:00 AM EST Appointment [facility] PET Scan [address] [place] [address] 09/28/2025 9:00 AM EST Appointment [facility] PET Scan [address] [place] [address] 09/28/2025 10:15 AM EST Office Visit [facility] 800 [facility], 2nd [place] [address] Kim Machado MD [address] [facility] [address] [place] [address] 01/13/2026 12:00 PM EST Office Visit [facility] [address] [place] [address] Eros Mejia MD 800 [place] [address] documented as of this encounter Visit Diagnoses Not on filedocumented in this encounter Additional Health Concerns Assessment Noted Time A fall risk assessment has been complete d for the patient 08/05/2025 10:30 AM EDT A Body Mass Index follow-up plan has been documented for the patient 07/27/2025 3:02 PM EDT documented as of this encounter Care Teams Guest Services Director Relationship Specialty Start Date End Date Darius Ken MD [address] [place] [address] PCP - General Internal Medicine 08/23/24 documented as of this encounter
--- OUTSIDE RECORDS SUMMARY | 2025-08-26 07:15 | XMS_ITS | Encounter Summary ---
Author Organization Healthcare Address [address] [place] [address] Care Team Providers Care Communication Equipment Repairer Name Role Phone Darius Ken MD Primary Care Provider [phone] Encounter Details Date Type Department Care Team (Late st Contact Info) Description 08/11/2025 Orders Only [facility] [address] , 2nd [place] [address] Jeanine Bhandari, RN Malignant neoplasm of overlapping [...] any time in the past [address] [facility], were you homeless or living in a snf (including now)? No 08/15/2025 [facility] Utilities Answer Date Recorded In [...] Clinical Support [facility] 800 [place] [address] 09/01/2025 9:30 AM EDT Office Visit [facility] Multidisciplinary Oncology Clinic [address] [place] [address] Aristides Reina MD 800 [place] [address] 09/01/2025 11:00 AM EDT Appointment [facility] 2 [address] [place] [address] 09/03/2025 10:30 AM EDT Appointment [facility] 2 [address] [place] [address] 09/15/2025 9:30 AM EST Appointment [facility] [address] [place] [address] 09/17/2025 9:00 AM EST Appointment [facility] 2 4 [place] [address] 09/21/2025 8:45 AM EST Office Visit [facility] [place] [address] [facility], [address] [place] [address] Juarez Recinos MD 800 [place] [address] 09/28/2025 8:00 AM EST Appointment [facility] PET Scan [address] [place] [address] 09/28/2025 9:00 AM EST Appointment [facility] PET Scan [address] [place] [address] 09/28/2025 10:15 AM EST Office Visit [facility] 800 [facility], 2nd [place] [address] Kim Machado MD [address] [facility] [address] [place] [address] 01/13/2026 12:00 PM EST Office Visit [facility] [address] [place] [phone] Eros Mejia MD [address] [place] [address] documented as of this encounter Visit [...] documented as of this encounter Care Teams Communication Equipment Repairer Relationship Specialty Start Date End Date Darius Ken MD [address] [place] [address] PCP - General Internal Medicine 08/23/24 documented as of this encounter
--- OUTSIDE RECORDS SUMMARY | 2025-08-26 07:15 | XMS_ITS | Encounter Summary ---
Author Organization Healthcare Address [address] 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 Multidisciplinary Oncology Clinic 800 [place] [address] 09/01/2025 9:30 AM EDT Office Visit [facility] [address] [place] [address] Arisitdes Reina MD 800 [place] [address] 09/01/2025 11:00 AM EDT Appointment [facility] 2 [address] [place] [address] 09/03/2025 10:30 AM EDT Appointment [facility] 2 [address] [place] [address] 09/15/2025 9:30 AM EST Appointment [facility] 2 [address] [place] [address] 09/17/2025 9:00 AM EST Appointment [facility] 2 4 [place] [address] 09/21/2025 8:45 AM EST Office Visit [facility] [place] [address] [facility], [address] [place] [address] Juarez Recinos MD 800 [place] [address] 09/28/2025 8:00 AM EST Appointment [facility] PET Scan [address] [place] [address] 09/28/2025 9:00 AM EST Appointment [facility] PET Scan [address] [place] [address] 09/28/2025 10:15 AM EST Office Visit [facility] 800 [facility], 2nd [place] [address] Kim Machado MD [address] [place] [address] 01/13/2026 12:00 PM EST Office Visit [facility] [address] [place] [address] Eros Mejia MD [address] [place] [address] documented as of this encounter Visit Diagnoses Diagnosis Adenocarcinoma of gastroesophageal junction- Primary documented in this encounter Additional Health Concerns Assessment Noted Time A fall risk assessment has been complete d for the patient 07/27/2025 12:23 PM EDT A Body Mass Index follow-up plan has been documented for the patient 07/27/2025 3:02 PM EDT documented as of this encounter Care Teams Voice Writing Reporter Relationship Specialty Start Date End Date Darius Ken MD [address] [place] [address] PCP - General Internal Medicine 08/23/24 documented as of this encounter
--- OUTSIDE RECORDS SUMMARY | 2025-08-26 07:15 | XMS_ITS | Encounter Summary ---
Author Organization Healthcare Address [address] [place] [id number] Care Team Providers Care Business Liaison Officer Name Role Phone Darius Ken MD Primary Care Provider [phone] Encounter Details Date Type Department Care Team (Latest Contact Info) Description 08/25/2025 Travel Social History Tobacco Use Types Packs/Day [...] any time in the past 12 m [facility], were you homeless or living in a detention (including now)? No 08/15/2025 [facility] Utilities Answer Date Recorded In the past [...] Description 09/01/2025 9:15 AM EDT Clinical Support [facility] Multidisciplinary Oncology Clinic [address] [place] [address] 09/01/2025 9:30 AM EDT Office Visit [facility] Multidisciplinary Oncology Clinic [address] [place] [address] Aristides Reina MD 800 [place] [address] 09/01/2025 11:00 AM EDT Appointment [facility] Infusion Clinic 2 [address] [place] [address] 09/03/2025 10:30 AM EDT Appointment [facility] Infusion Clinic 2 [address] [place] [address] 09/15/2025 9:30 AM EST Appointment [facility] 2 [address] [place] [address] 09/17/2025 9:00 AM EST Appointment [facility] 2 [address] [place] [address] 09/21/2025 8:45 AM EST Office Visit [facility] [place] [address] [facility], [address] [place] [address] Juarez Recinos MD 800 [place], [place] [address] 09/28/2025 8:00 AM EST Appointment [facility] PET Scan [address] [place] [address] 09/28/2025 9:00 AM EST Appointment [facility] PET Scan [address] [place] [address] 09/28/2025 10:15 AM EST Office Visit [facility] 800 [facility], 2nd [place] [address] Kim Machado MD [address] [facility] [address] [place] [address] 01/13/2026 12:00 PM EST Office Visit [facility] [address] [place] [address] Eros Mejia MD [address] [place] [address] documented as of this encounter [...] as of this encounter Care Teams Business Liaison Officer Relationship Specialty Start Date End Date Darius Ken MD [address] [place] [address] PCP - General Internal Medicine 08/23/24 documented as of this encounter
--- OUTSIDE RECORDS SUMMARY | 2025-08-26 07:15 | XMS_ITS | Encounter Summary ---
Author Organization Healthcare Address [address] [place] [address] Care Team Providers Care Esthetician Spa Name Role Phone Darius Ken MD Primary Care Provider [phone] Encounter Details Date Type Department Care Team (Late st Contact Info) Description 08/10/2025 Telephone [facility] [address] [place] [address] Aristides Reina MD [address] [place] [address] Social History Tobacco Use Types Packs/Day Years [...] optimal time of day to reach caller: [phone] Note: Please do not reply to this message. Follow-up communication and further actions as a result of this message need to be communicated with the patient directly, if the patient is not active onMyChart. If the patient is active on MyChart, they will receive notification of the communication/outcome via [employer] Monitoring[employer]. documented in this encounter Plan of Treatment Upcoming Encounters Date Type Department Care Team (Latest Contact Info) Description 09/01/2025 9:15 AM EDT Clinical Support [facility] 800 [place] [address] 09/01/2025 9:30 AM EDT Office Visit [facility] 800 [place] [address] Aristides Reina MD 800 [place] [address] 09/01/2025 11:00 AM EDT Appointment [facility] 2 744 [place] [address] 09/03/2025 10:30 AM EDT Appointment [facility] 2 744 [place] [address] 09/15/2025 9:30 AM EST Appointment [facility] 2 [address] [place] [address] 09/17/2025 9:00 AM EST Appointment [facility] 2 [address] [place] [address] 09/21/2025 8:45 AM EST Office Visit [facility] [place] [address] [facility], [address] [place] [address] Juarez Recinos MD 800 [place] [address] 09/28/2025 8:00 AM EST Appointment [facility] PET Scan 800 [place] [address] 09/28/2025 9:00 AM EST Appointment [facility] PET Scan 800 [place] [address] 09/28/2025 10:15 AM EST Office Visit [facility] 800 [facility], 2nd [place] [address] Kim Machado MD [address] [place] [address] 01/13/2026 12:00 PM EST Office Visit [facility] [address] [place] [address] Eros Mejia MD [address] [place] [phone] documented as of this encounter Visit Diagnoses Not on filedocumented in this encounter Additional Health Concerns Assessment Noted Time A fall risk assessment has been complete d for the patient 08/05/2025 10:30 AM EDT A Body Mass Index follow-up plan has been documented for the patient 07/27/2025 3:02 PM EDT documented as of this encounter Care Teams Esthetician Spa Relationship Specialty Start Date End Date Darius Ken MD [address] [place] [address] PCP - General Internal Medicine 08/23/24 documented as of this encounter
--- OUTSIDE RECORDS SUMMARY | 2025-08-26 07:15 | XMS_ITS | Encounter Summary ---
Author Organization Healthcare Address [address] [place] [address] Care Team Providers Care Refrigerator Assembler Name Role Phone Darius Ken MD Primary Care Provider [phone] Encounter Details Date Type Department Care Team [...] Clinical Support [facility] 800 [place] [address] 09/01/2025 9:30 AM EDT Office Visit [facility] [address] [place] [address] Aristides Reina MD 800 [place] [address] 09/01/2025 11:00 AM EDT Appointment [facility] 2 [address] [place] [address] 09/03/2025 10:30 AM EDT Appointment [facility] 2 [address] [place] [address] 09/15/2025 9:30 AM EST Appointment [facility] 2 [address] [place] [address] 09/17/2025 9:00 AM EST Appointment [facility] 2 [address] [place] [address] 09/21/2025 8:45 AM EST Office Visit [facility] [place] [address] [facility], [address] [place] [address] Juarez Recinos MD [address] [place] [address] 09/28/2025 8:00 AM EST Appointment [facility] PET Scan [address] [place] [address] 09/28/2025 9:00 AM EST Appointment [facility] PET Scan [address] [place] [address] 09/28/2025 10:15 AM EST Office Visit [facility] 800 [facility], 2nd [place] [address] Kim Machado MD [address] [facility] [address] [place] [address] 01/13/2026 12:00 PM EST Office Visit [facility] [address] [place] [address] Eros Mejia MD [address] [place] [address] documented as of this encounter Visit Diagnoses Not on filedocumented in this encounter Additional Health Concerns Assessment Noted Time A fall risk assessment has been complete d for the patient 07/06/2025 2:29 PM EDT A Body Mass Index follow-up plan has been documented for the patient 07/07/2025 10:51 PM EDT documented as of this encounter Care Teams Refrigerator Assembler Relationship Specialty Start Date End Date Darius Ken MD [address] [place] [address] PCP - General Internal Medicine 08/23/24 documented as of this encounter
--- OUTSIDE RECORDS SUMMARY | 2025-08-26 07:15 | XMS_ITS | Encounter Summary ---
Author Organization Healthcare Address [address] [place] [id number] Care Team Providers Care Train Gate Attendant Name Role Phone Darius Ken MD Primary Care Provider [phone] Encounter Details Date Type Department Care Team (Latest Contact Info) Description 08/20/2025 Travel Social History Tobacco Use Types Packs/Day [...] any time in the past 12 m [facility], were you homeless or living in a intermediate (including now)? No 08/15/2025 [facility] Utilities Answer Date Recorded In [...] Description 09/01/2025 9:15 AM EDT Clinical Support [facility] Multidisciplinary Oncology Clinic [address] [place] [address] 09/01/2025 9:30 AM EDT Office Visit [facility] Multidisciplinary Oncology Clinic [address] [place] [address] Aristides Reina MD 800 [place] [address] 09/01/2025 11:00 AM EDT Appointment [facility] Infusion Clinic 2 [address] [place] [address] 09/03/2025 10:30 AM EDT Appointment [facility] Infusion Clinic 2 [address] [place] [address] 09/15/2025 9:30 AM EST Appointment [facility] 2 [address] [place] [address] 09/17/2025 9:00 AM EST Appointment [facility] 2 [address] [place] [address] 09/21/2025 8:45 AM EST Office Visit [facility] [place] [address] [facility], [address] [place] [address] Juarez Recinos MD 800 [place], [place] [address] 09/28/2025 8:00 AM EST Appointment [facility] PET Scan [address] [place] [address] 09/28/2025 9:00 AM EST Appointment [facility] PET Scan [address] [place] [address] 09/28/2025 10:15 AM EST Office Visit [facility] 800 [facility], 2nd [place] [address] Kim Machado MD [address] [facility] [address] [place] [address] 01/13/2026 12:00 PM EST Office Visit [facility] [address] [place] [address] Eros Mejia MD [address] [place] [address] documented as of this encounter [...] documented as of this encounter Care Teams Train Gate Attendant Relationship Specialty Start Date End Date Darius Ken MD [address] [place] [address] PCP - General Internal Medicine 08/23/24 documented as of this encounter
--- OUTSIDE RECORDS SUMMARY | 2025-08-26 07:15 | XMS_ITS | Encounter Summary ---
Author Organization Healthcare Address [address] [place] [address] Care Team Providers Care Transition Coach Name Role Phone Darius Ken MD Primary Care Provider [phone] Encounter Details Date Type Department Care Team [...] Clinical Support [facility] [address] [place] [address] 09/01/2025 9:30 AM EDT Office Visit [facility] [address] [place] [address] Aristides Reina MD 800 [place] [address] 09/01/2025 11:00 AM EDT Appointment [facility] 2 [address] [place] [address] 09/03/2025 10:30 AM EDT Appointment [facility] 2 [address] [place] [address] 09/15/2025 9:30 AM EST Appointment [facility] 2 [address] [place] [address] 09/17/2025 9:00 AM EST Appointment [facility] 2 [address] [place] [address] 09/21/2025 8:45 AM EST Office Visit [facility] [place] [address] [facility], [address] [place] [address] Juarez Recinos MD 800 [place] [address] 09/28/2025 8:00 AM EST Appointment [facility] PET Scan [address] [place] [address] 09/28/2025 9:00 AM EST Appointment [facility] PET Scan [address] [place] [address] 09/28/2025 10:15 AM EST Office Visit [facility] 800 [facility], 2nd [place] [address] Kim Machado MD [address] [facility] [address] [place] [address] 01/13/2026 12:00 PM EST Office Visit [facility] [address] [place] [address] Eros Mejia MD [address] [place] [address] documented as of this encounter Visit Diagnoses Not on filedocumented in this encounter Additional Health Concerns Assessment Noted Time A fall risk assessment has been complete d for the patient 07/27/2025 12:23 PM EDT A Body Mass Index follow-up plan has been documented for the patient 07/27/2025 3:02 PM EDT documented as of this encounter Care Teams Transition Coach Relationship Specialty Start Date End Date Darius Ken MD [address] [place] [address] PCP - General Internal Medicine 08/23/24 documented as of this encounter
--- OUTSIDE RECORDS SUMMARY | 2025-08-26 07:15 | XMS_ITS | Encounter Summary ---
Author Organization Healthcare Address [address] [place] [id number] Care Team Providers Care Chief Deputy Court Clerk Name Role Phone Darius Ken MD Primary Care Provider [phone] Encounter Details Date Type Department Care Team [...] Clinical Support [facility] [address] [place] [address] 09/01/2025 9:30 AM EDT Office Visit [facility] [address] [place] [address] Aristides Reina MD 800 [place] [address] 09/01/2025 11:00 AM EDT Appointment [facility] 2 [address] [place] [address] 09/03/2025 10:30 AM EDT Appointment [facility] 2 [address] [place] [address] 09/15/2025 9:30 AM EST Appointment [facility] 2 4 [place] [address] 09/17/2025 9:00 AM EST Appointment [facility] 2 4 [place] [address] 09/21/2025 8:45 AM EST Office Visit [facility] [place] [address] [facility], [address] [place] [address] Juarez Recinos MD 800 [place] [address] 09/28/2025 8:00 AM EST Appointment [facility] PET Scan [address] [place] [address] 09/28/2025 9:00 AM EST Appointment [facility] PET Scan [address] [place] [address] 09/28/2025 10:15 AM EST Office Visit [facility] 800 [facility], 2nd [place] [address] Kim Machado MD [address] [facility] [address] [place] [address] 01/13/2026 12:00 PM EST Office Visit [facility] [address] [place] [address] Eros Mejia MD [address] [place] [address] documented as of this encounter Visit Diagnoses Not on filedocumented in this encounter Additional Health Concerns Assessment Noted Time A fall risk assessment has been complete d for the patient 07/06/2025 2:29 PM EDT A Body Mass Index follow-up plan has been documented for the patient 07/07/2025 10:51 PM EDT documented as of this encounter Care Teams Chief Deputy Court Clerk Relationship Specialty Start Date End Date Darius Ken MD [address] [place] [address] PCP - General Internal Medicine 08/23/24 documented as of this encounter
--- OUTSIDE RECORDS SUMMARY | 2025-08-26 07:15 | XMS_ITS | Encounter Summary ---
Author Organization Healthcare Address [address] [place] [id number] Care Team Providers Care Rock Singer Name Role Phone Darius Ken MD Primary Care Provider [phone] Encounter Details Date Type Department Care Team (Late st Contact Info) Description 08/11/2025 Orders Only [facility] 800 [place] [address] Quoc Pratt MD 800 [place] [address] Social History Tobacco Use Types Packs/Day Years [...] any time in the past 12 m [facility], were you homeless or living in a group home (including now)? No 08/15/2025 [facility] Utilities Answer Date Recorded In [...] Clinical Support [facility] [address] [place] [address] 09/01/2025 9:30 AM EDT Office Visit [facility] [address] [place] [address] Aristides Reina MD 800 [place] [address] 09/01/2025 11:00 AM EDT Appointment [facility] 2 [address] [place] [address] 09/03/2025 10:30 AM EDT Appointment [facility] 2 [address] [place] [address] 09/15/2025 9:30 AM EST Appointment [facility] 2 4 [place] [address] 09/17/2025 9:00 AM EST Appointment [facility] 2 4 [place] [address] 09/21/2025 8:45 AM EST Office Visit [facility] [place] [address] [facility], [address] [place] [address] Juarez Recinos MD 800 [place] [address] 09/28/2025 8:00 AM EST Appointment [facility] PET Scan 800 [place] [address] 09/28/2025 9:00 AM EST Appointment [facility] PET Scan [address] [place] [address] 09/28/2025 10:15 AM EST Office Visit [facility] 800 [facility], 2nd [place] [address] Kim Machado MD [address] [facility] [address] [place] [address] 01/13/2026 12:00 PM EST Office Visit [facility] [address] [place] [address] Eros Mejia MD [address] [place] [phone] documented as of this encounter Visit Diagnoses [...] documented as of this encounter Care Teams Rock Singer Relationship Specialty Start Date End Date Darius Ken MD [address] [place] [address] PCP - General Internal Medicine 08/23/24 documented as of this encounter
--- OUTSIDE RECORDS SUMMARY | 2025-08-26 07:15 | XMS_ITS | Data Portability ---
Author Organization [facility] REECE Velas[facility] [place] [facility] Address [address] [facility] [address] [place] [address] Care Team Providers Care Digital Forensic Examiner Name Role Phone HARIS PORTER Primary Care [...] the rigid cystoscope was introduced with a 22-Libyan cystoscopy sheath with 30 degree lens. His urethra appeared normal, his prostate showed moderate obstruction. He had some prominent vasculature on the prostatic urethra, especially at the bladder neck. The bladder was inspected entirely with both 30 and 70 degree lenses. There was no mucosal abnormalities. Bilateral contrast was injected through a 5-Libyan open-ended catheter. Course and contour of each [...] Lab urinalysis panel, auto 2023 024 jevon [facility], [address], [place], [address], 23:21:34 Referral None recorded. Procedures None recorded. Surgeries None recorded. Imaging None recorded. Medication Orders None recorded. Patient TargetsNo targets recorded. Patient InstructionsNo instructions recorded. Reason for Referral None Reported. Results Created Date Observation Date Name Description Value Unit Range Abnormal Flag Note LastModifiedBy Organization Detail LastModifiedTime 01/28/20 24 01/28/2024 urina lysis panel , auto Unknown Analyte Clean Catch Not Available [facility] [address], [place], [address], 01/28/2024 15:00:48 01/28/20 24 01/28/2024 urina lysis panel , auto Unknown Analyte Yellow Not Available [facility] [address], [place], [address], 01/28/2024 15:00:48 01/28/20 24 01/28/2024 urina lysis panel , auto Unknown Analyte Clear Not Available [facility] [address], [place], [address], 01/28/2024 15:00:48 01/28/20 24 01/28/2024 urina lysis panel , auto Unknown Analyte 1.020 Not Available [facility] [address], [place], [address], 01/28/2024 15:00:48 01/28/20 24 01/28/2024 urina lysis panel , auto Unknown Analyte 1.003- 1.035 Not Available [facility] [address], [place], [address], 01/28/2024 15:00:48 01/28/20 24 01/28/2024 urina lysis panel , auto Unknown Analyte 5.0 Not Available [facility] [address], [place], [address], 01/28/2024 15:00:48 01/28/20 24 01/28/2024 urina lysis panel , auto Unknown Analyte 5.0-8. 0 Not Available [facility] [address], [place], [address], 01/28/2024 15:00:48 01/28/20 24 01/28/2024 urina lysis panel , auto Unknown Analyte 25 Amna/ul Trace Not Available [facility] [address], [place], [address], 01/28/2024 15:00:48 01/28/20 24 01/28/2024 urina lysis panel , auto Unknown Analyte Negati ve Not Available [facility] [address], [place], [address], 01/28/2024 15:00:48 01/28/20 24 01/28/2024 urina lysis panel , auto Unknown Analyte Negati ve Not Available [facility] [address], [place], [address], 01/28/2024 15:00:48 01/28/20 24 01/28/2024 urina lysis panel , auto Unknown Analyte Negati ve Not Available [facility] [address], [place], [address], 01/28/2024 15:00:48 01/28/20 24 01/28/2024 urina lysis panel , auto Unknown Analyte Negati ve Not Available [facility] [address], [place], [address], 01/28/2024 15:00:48 01/28/20 24 01/28/2024 urina lysis panel , auto Unknown Analyte Negati ve Not Available [facility] [address], [place], [address], 01/28/2024 15:00:48 01/28/20 24 01/28/2024 urina lysis panel , auto Unknown Analyte Normal Not Available [facility] [address], [place], [address], 01/28/2024 15:00:48 01/28/20 24 01/28/2024 urina lysis panel , auto Unknown Analyte Normal Not Available [facility] [address], [place], [address], 01/28/2024 15:00:48 01/28/20 24 01/28/2024 urina lysis panel , auto Unknown Analyte 15 mg/dl (Sm) Not Available [facility] [address], [place], [address], 01/28/2024 15:00:48 01/28/20 24 01/28/2024 urina lysis panel , auto Unknown Analyte Negati ve Not Available [facility] [address], [place], [address], 01/28/2024 15:00:48 01/28/20 24 01/28/2024 urina lysis panel , auto Unknown Analyte 1 mg/dl Not Available [facility] [address], [place], [address], 01/28/2024 15:00:48 01/28/20 24 01/28/2024 urina lysis panel , auto Unknown Analyte Normal 1 mg/dl Not Available [facility] [address], [place], [address], 01/28/2024 15:00:48 01/28/20 24 01/28/2024 urina lysis panel , auto Unknown Analyte Negati ve Not Available [facility] [address], [place], [address], 01/28/2024 15:00:48 01/28/20 24 01/28/2024 urina lysis panel , auto Unknown Analyte Negati ve Not Available [facility] [address], [place], [address], 01/28/2024 15:00:48 01/28/20 24 01/28/2024 urina lysis panel , auto Unknown Analyte Negati ve Not Available [facility] [address], [place], [address], 01/28/2024 15:00:48 01/28/20 24 01/28/2024 urina lysis panel , auto Unknown Analyte Negati ve Not Available [facility] [address], [place], [address], 01/28/2024 15:00:48 01/28/20 24 01/07/2024 CT, abdom en + pelvi s, w/o contr ast No observ ation record ed. [email or web address] [facility] (Radiology) [address] , [place], [address], 02/02/2024 15:41:35 Result Notes None recorded. Medical [...] Updated DateTime 01/28/2024 185.42 cm 26.7 kg/m2 33516.66 g Laura Jarvis [facility] 01/28/2024 15:04:53 Social History Question Answer Notes LastModified by Organizat ion Details LastModified Time Tobacco Smoking Status Never Smoker Laura Jarvis [facility] 01/28/2024 15:09:45 What Was The Date Of Your Most Recent Tobacco Screening? 01/28/2024 [email or web address] Information not available 01/28/2024 Sex: Male Functional Status None recorded. Mental Status None recorded. Family History Nothing Reported. Medical History No medical history recorded. Past Encounters Encounter ID Performer Location Encounter Start Date Encounter Closed Date Diagnosis/Indication Diagnosis SNOMED-CT Code Diagnosis ICD10 Code Diagnosis IMO Codes Diagnosis Note [id number] PAVAN PITTMAN MD [facility] [address] [place] [address] 01/28/2024 14:40:29 01/28/2024 15:46:08 Maxi hematuria 162384062 R31.0 Plan as above [id number] PAVAN PITTMAN MD SURGERY SCHEDULE [address] [place] [address] 02/18/2024 07:10:56 02/18/2024 07:11:45 Health Concerns Section Related Observation LastModified by Organization Detai ls LastModified Time None Recorded Concern Status LastModified by Organization Details LastModified Time None Recorded Advance Directives Directive None Recorded Payers Insurance Date Sequence Insurance Name Policy Number Policy Villa Covered Member ID Villa Member ID Guarantor Name 02/25/2024 1 [facility] (MEDICARE REPLACEMENT/A DVANTAGE - PPO) [id number] Justin Best [id number] Justin Best Notes Date Note Type Note Provider Name and Address Organization Details Recorded Time 01/28/2024 text/html Patient is here for initial visit referred for episodic gross painless hematuria. He had a CT scan without contrast that [facility] last week. This showed no hydronephrosis or stones. It did show a large prostate. He takes alfuzosin. He typically has nocturia x 0. We discussed further evaluation. 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 He has no smoking history. I suggest we arrange for cystoscopy with bilateral retrograde pyelograms PAVAN PITTMAN MD [address] [place] [address], [phone], [facility] 01/29/2024 23:22:00
--- OUTSIDE RECORDS SUMMARY | 2025-08-26 07:15 | XMS_ITS | Encounter Summary ---
Author Organization Healthcare Address [address] [place] [address] Care Team Providers Care Cushion Gum Applicator Name Role Phone Darius Ken MD Primary Care Provider [phone] Encounter Details Date Type Department Care Team (Late st Contact Info) Description 07/12/2025 Orders Only Ch Radiology Virtual Dept. [address] [place] [address] Paz Corcoran, DO [address] [place] [address] Social History Tobacco Use Types Packs/Day Years [...] EDT Clinical Support [facility] [address] [place] [address] 09/01/2025 9:30 AM EDT Office Visit [facility] [address] [place] [address] Aristides Reina MD [address] [place] [address] 09/01/2025 11:00 AM EDT Appointment [facility] 2 [address] [place] [address] 09/03/2025 10:30 AM EDT Appointment [facility] 2 [address] [place] [address] 09/15/2025 9:30 AM EST Appointment [facility] 2 [address] [place] [address] 09/17/2025 9:00 AM EST Appointment [facility] 2 [address] [place] [address] 09/21/2025 8:45 AM EST Office Visit [facility] [place] [address] [facility], [address] [place] [address] Juarez Recinos MD [address] [place] [id number] 09/28/2025 8:00 AM EST Appointment [facility] PET Scan [address] [place] [address] 09/28/2025 9:00 AM EST Appointment [facility] PET Scan [address] [place] [address] 09/28/2025 10:15 AM EST Office Visit [facility] [address] [facility], 2nd [place] [address] Kim Machado MD [address] [place] [address] 01/13/2026 12:00 PM EST Office Visit [facility] [address] [place] [address] Eros Mejia MD [address] [place] [address] documented as of this encounter Visit Diagnoses Not on filedocumented in this encounter Additional Health Concerns Assessment Noted Time A fall risk assessment has been complete d for the patient 07/06/2025 2:29 PM EDT A Body Mass Index follow-up plan has been documented for the patient 07/07/2025 10:51 PM EDT documented as of this encounter Care Teams Cushion Gum Applicator Relationship Specialty Start Date End Date Darius Ken MD [address] [place] [address] PCP - General Internal Medicine 08/23/24 documented as of this encounter
--- NOTE | 2025-08-26 07:16 | CT_ITS ---
FINAL REPORT TECHNIQUE: Thin section axial images were obtained from the thoracic inlet through the upper abdomen after intravenous contrast injection. Reconstruction images were obtained from the axial data. Exam was performed using dose reduction technique. This study was performed with techniques to keep radiation doses as low as reasonably achievable (ALARA). Individualized dose reduction techniques using automated exposure control or adjustment of mA and/or kV according to the patient's size were employed. CLINICAL HISTORY: low sternal pain, esophageal cancer, vomiting COMPARISON: None FINDINGS: A right Port-A-Cath is present. The thyroid is enlarged and heterogeneous with substernal extension. There is no mediastinal, hilar, or axillary lymphadenopathy. There is no pleural or pericardial effusion. There is wall thickening of the distal two thirds of the esophagus, which is dilated with fluid to the level of the thoracic inlet. No suspicious nodules or masses are identified. There is dependent atelectasis, otherwise the lungs are clear. No acute osseous abnormality. IMPRESSION: 1. Long segment wall thickening of the esophagus is noted, which is dilated and fluid-filled. Favor esophagitis, which could be secondary to radiation therapy if the patient has undergone radiation for his known esophageal carcinoma. The amount of fluid in the esophagus suggests a possible increased risk of aspiration. 2. 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 Reviewed, Interpreted and Dictated by Arlyn Fabian MD Transcribed by Kanwal Mitchell Authenticated and . [facility]
--- NOTE | 2025-08-26 07:16 | ECG_ITS ---
APPROVED REPORT Exam: Resting ECG HR:102 bpm ECG Measurements Heart Rate 102 AXES MA 164 P 76 QRSd 86 QRS 80 QT 240 T -17 QTc 299 Conclusion SINUS TACHYCARDIA WITH FREQUENT SUPRAVENTRICULAR PREMATURE COMPLEXES NONSPECIFIC ST & T-WAVE ABNORMALITY ABNORMAL ECG Electronically signed by : JACQUES FERNANDEZ, 08/26/2025 16:08:48
--- NOTE | 2025-08-26 07:16 | CT_ITS ---
FINAL REPORT TECHNIQUE: Thin section axial images are obtained through the abdomen and pelvis after intravenous contrast. Reconstruction images were obtained from the axial data. Exam was performed using dose reduction techniques. This study was performed with techniques to keep radiation doses as low as reasonably achievable (ALARA). Individualized dose reduction techniques using automated exposure control or adjustment of mA and/or kV according to the patient's size were employed. CLINICAL HISTORY: low sternal pain, esophageal cancer, vomiting COMPARISON: 08/14/2025 FINDINGS: LIVER: Homogeneous. No focal lesion. GALLBLADDER/BILIARY SYSTEM: The gallbladder has been removed. There is mild intrahepatic biliary ductal dilatation that likely represents post cholecystectomy change. SPLEEN: Unremarkable. PANCREAS: Unremarkable. ADRENALS: Unremarkable. KIDNEYS/URETERS/BLADDER: No hydronephrosis, renal mass, or renal stone. GI TRACT: There is distal esophageal wall thickening, which is slightly improved since the prior examination of 08/14/2025. No small bowel obstruction or dilatation. There is wall thickening of the distal and terminal portions of the ileum with surrounding inflammatory change. There is also wall thickening of the colon with some fatty replacement of the submucosa of the colon. There is diverticulosis of the more distal colon. The colonic wall thickening is improved from the recent exam. PELVIC ORGANS: The prostate is enlarged. LYMPH NODES/RETROPERITONEUM/MESENTERY: A gastrohepatic ligament lymph node is stable when compared with prior exam, measuring 11 mm in size. No other lymphadenopathy. No abdominal aortic aneurysm. ABDOMINAL WALL: The abdominal wall is intact. FREE FLUID: No ascites. BONES: No acute osseous abnormality. IMPRESSION: 1. Slight improvement in the distal esophageal wall thickening. 2. Interval development of wall thickening of the distal and terminal portions of the ileum concerning for ileitis, which could be infectious or inflammatory, or treatment related. 3. Improving pancolitis. 4. Stable gastrohepatic ligament lymph node. Reviewed, Interpreted and Dictated by Arlyn Fabian MD Transcribed by Kanwal Mitchell Authenticated and [facility]
--- OUTSIDE RECORDS SUMMARY | 2025-08-26 07:16 | XMS_ITS | Encounter Summary ---
Author Organization Healthcare Address [address] [place] [address] Care Team Providers Care Plisse Machine Operator Helper Name Role Phone Darius Ken MD Primary Care Provider [phone] Encounter Details Date Type Department Care Team (Latest Contact Info) Description 08/16/2025 Travel Social History Tobacco Use Types Packs/Day [...] any time in the past 12 m [facility], were you homeless or living in a skilled nursing (including now)? No 08/15/2025 [facility] Utilities Answer Date Recorded In the [...] 09/01/2025 9:15 AM EDT Clinical Support [facility] Multidisciplinary Oncology Clinic [address] [place] [address] 09/01/2025 9:30 AM EDT Office Visit [facility] Mult[facility] Oncology Clinic [address] [place] [address] Aristides Reina MD [address] [place] [address] 09/01/2025 11:00 AM EDT Appointment [facility] Infusion Clinic 2 [address] [place] [address] 09/03/2025 10:30 AM EDT Appointment [facility] Infusion Clinic 2 [address] [place] [address] 09/15/2025 9:30 AM EST Appointment [facility] Infusion Clinic 2 [address] [place] [address] 09/17/2025 9:00 AM EST Appointment [facility] 2 [address] [place] [address] 09/21/2025 8:45 AM EST Office Visit [facility] [place] [address] [facility], [address] [place] [address] Juarez Recinos MD [address] [place] [address] 09/28/2025 8:00 AM EST Appointment [facility] PET Scan [address] [place] [address] 09/28/2025 9:00 AM EST Appointment [facility] PET Scan [address] [place] [address] 09/28/2025 10:15 AM EST Office Visit [facility] [address] [facility], 2nd [place] [address] Kim Machado MD [address] [place] [address] 01/13/2026 12:00 PM EST Office Visit [facility] [address] [place] [address] Eros Mejia MD [address] [place] [address] documented as of this encounter [...] documented as of this encounter Care Teams Plisse Machine Operator Helper Relationship Specialty Start Date End Date Darius Ken MD [address] [place] [address] PCP - General Internal Medicine 08/23/24 documented as of this encounter
--- OUTSIDE RECORDS SUMMARY | 2025-08-26 07:16 | XMS_ITS | Encounter Summary ---
Author Organization Healthcare Address [address] [place] [address] Care Team Providers Care Coding Compliance Specialist Name Role Phone Darius Ken MD Primary Care Provider [phone] Encounter Details Date Type Department Care Team [...] Clinical Support [facility] [address] [place] [address] 09/01/2025 9:30 AM EDT Office Visit [facility] [address] [place] [address] Aristides Reina MD [address] [place] [address] 09/01/2025 11:00 AM EDT Appointment [facility] 2 [address] [place] [address] 09/03/2025 10:30 AM EDT Appointment [facility] 2 [address] [place] [address] 09/15/2025 9:30 AM EST Appointment [facility] 2 [address] [place] [address] 09/17/2025 9:00 AM EST Appointment [facility] 2 [address] [place] [address] 09/21/2025 8:45 AM EST Office Visit [facility] [place] [address] [facility], [address] [place] [address] Juarez Recinos MD [address] [place] [address] 09/28/2025 8:00 AM EST Appointment [facility] PET Scan [address] [place] [address] 09/28/2025 9:00 AM EST Appointment [facility] PET Scan [address] [place] [address] 09/28/2025 10:15 AM EST Office Visit [facility] [address] [facility], 2nd [place] [address] Kim Machado MD [address] [facility] [address] [place] [address] 01/13/2026 12:00 PM EST Office Visit [facility] [address] [place] [address] Eros Mejia MD [address] [place] [address] documented as of this encounter Visit Diagnoses Not on filedocumented in this encounter Additional Health Concerns Assessment Noted Time A fall risk assessment has been complete d for the patient 07/21/2025 9:37 AM EDT A Body Mass Index follow-up plan has been documented for the patient 07/07/2025 10:51 PM EDT documented as of this encounter Care Teams Coding Compliance Specialist Relationship Specialty Start Date End Date Darius Ken MD [address] [place] [address] PCP - General Internal Medicine 08/23/24 documented as of this encounter
--- OUTSIDE RECORDS SUMMARY | 2025-08-26 07:16 | XMS_ITS | Encounter Summary ---
Author Organization Healthcare Address [address] [place] [id number] Care Team Providers Care Utilization Engineer Name Role Phone Darius Ken MD Primary Care Provider [phone] Encounter Details Date Type Department Care Team (Late st Contact Info) Description 08/13/2025 Orders Only External Location [address] [place] [address] Kenneth Daniel MD [address] [place] [address] Social History Tobacco Use Types Packs/Day Years [...] any time in the past 12 m [facility], were you homeless or living in a fci (including now)? No 08/15/2025 [facility] Utilities Answer Date Recorded In the [...] Clinical Support [facility] [address] [place] [address] 09/01/2025 9:30 AM EDT Office Visit [facility] [address] [place] [address] Aristides Reina MD [address] [place] [address] 09/01/2025 11:00 AM EDT Appointment [facility] 2 [address] [place] [address] 09/03/2025 10:30 AM EDT Appointment [facility] 2 [address] [place] [address] 09/15/2025 9:30 AM EST Appointment [facility] 2 [address] [place] [address] 09/17/2025 9:00 AM EST Appointment [facility] 2 [address] [place] [address] 09/21/2025 8:45 AM EST Office Visit [facility] [place] [address] [facility], [address] [place] [address] Juarez Recinos MD [address] [place] [address] 09/28/2025 8:00 AM EST Appointment [facility] PET Scan [address] [place] [address] 09/28/2025 9:00 AM EST Appointment [facility] PET Scan [address] [place] [address] 09/28/2025 10:15 AM EST Office Visit [facility] [address] [facility], 2nd [place] [address] Kim Machado MD [address] [facility] [address] [place] [address] 01/13/2026 12:00 PM EST Office Visit [facility] [address] [place] [address] Eros Mejia MD [address] [place] [address] documented as of this encounter Procedures Procedure Name Priority Date/Time Associated Diagnosis Comments CT OUTSIDE IMAGES 08/13/2025 6:18 AM EDT documented in this encounter Results * CT OUTSIDE IMAGES (08/13/2025 6:18 AM EDT) Anatomical Region Laterality Modality Computed Tomogra phy 08/13/2025 6:18 AM EDT Kenneth Daniel MD IMG CT PROCEDURES Edited Resul t - Final documented in this encounter Visit Diagnoses Not [...] documented as of this encounter Care Teams Utilization Engineer Relationship Specialty Start Date End Date Darius Ken MD [address] [place] [address] PCP - General Internal Medicine 08/23/24 documented as of this encounter
--- OUTSIDE RECORDS SUMMARY | 2025-08-26 07:16 | XMS_ITS | Encounter Summary ---
Author Organization Healthcare Address [address] [place] [address] Care Team Providers Care Medical Administrative Name Role Phone Darius Ken MD Primary Care Provider [phone] Encounter Details Date Type Department Care Team [...] Clinical Support [facility] [address] [place] [address] 09/01/2025 9:30 AM EDT Office Visit [facility] [address] [place] [address] Aristides Reina MD [address] [place] [address] 09/01/2025 11:00 AM EDT Appointment [facility] 2 [address] [place] [address] 09/03/2025 10:30 AM EDT Appointment [facility] 2 [address] [place] [address] 09/15/2025 9:30 AM EST Appointment [facility] 2 [address] [place] [address] 09/17/2025 9:00 AM EST Appointment [facility] 2 [address] [place] [address] 09/21/2025 8:45 AM EST Office Visit [facility] [place] [address] [facility], [address] [place] [address] Juarez Recinos MD [address] [place] [address] 09/28/2025 8:00 AM EST Appointment [facility] PET Scan [address] [place] [address] 09/28/2025 9:00 AM EST Appointment [facility] PET Scan [address] [place] [address] 09/28/2025 10:15 AM EST Office Visit [facility] [address] [facility], 2nd [place] [address] Kim Machado MD [address] [facility] [address] [place] [address] 01/13/2026 12:00 PM EST Office Visit [facility] [address] [place] [address] Eros Mejia MD [address] [place] [address] documented as of this encounter Visit Diagnoses Not on filedocumented in this encounter Additional Health Concerns Assessment Noted Time A fall risk assessment has been complete d for the patient 07/21/2025 9:37 AM EDT A Body Mass Index follow-up plan has been documented for the patient 07/07/2025 10:51 PM EDT documented as of this encounter Care Teams Medical Administrative Relationship Specialty Start Date End Date Darius Ken MD [address] [place] [address] PCP - General Internal Medicine 08/23/24 documented as of this encounter
--- OUTSIDE RECORDS SUMMARY | 2025-08-26 07:16 | XMS_ITS | Clinical Summary ---
Author Organization [facility] Address [address] [place] [address] Care Team Providers Care Rehabilitation Engineer Name Role Phone Darius Ken MD Primary Care Provider + [phone] Medications Sod Picosulfate-Mag Ox-Cit Acd 10-3.5-12 MG-GM -GM/160ML solution Take 1 kit by mouth Take As Directed. Follow instructions mailed to your home. If you didn't receive instructions; call [phone]. 4 bottle 9 Active Social History Tobacco Use [...] (1 of 2) 2004 ANNUAL PHYSICAL 07/30/2019 INFLUENZA VACCINE 06/10/2025 COVID-19 Vaccine (1 - season) 2025 COLONOSCOPY 08/23/2029 08/23/2019 COLORECTAL CANCER SCREENING 08/23/2029 AAA SCREEN ONCE Completed 09/21/2024 HEPATITIS C SCREENING Completed 08/13/2025 Procedures Procedure Name Priority Date/Time Associated Diagnosis Comments SCANNED - COLONOSCOPY 08/23/2019 from Last 3 Months or Most Recently Relevant to Health Maintenance Results * SCANNED - COLONOSCOPY (08/23/2019) Darius Ken MD CHART REVIEW TABS Final R esult from Last 3 Months or Most Recently Relevant to Health Maintenance Insurance Care Teams Rehabilitation Engineer Relationship Specialty Start Date End Date Darius Ken MD [address] [place] [address] [place] [id number] PCP - General Adolescent Medicine 07/28/19
--- OUTSIDE RECORDS SUMMARY | 2025-08-26 07:16 | XMS_ITS | Encounter Summary ---
Author Organization [facility] Address [address] [id number] Care Team Providers Care Latex Fashions Designer Name Role Phone Darius Ken MD Primary Care Provider [phone] Encounter Details Date Type Department Care Team (Latest Contact Info) Description 08/13/2025 Travel Social History Tobacco Use Types Packs/Day [...] Support [facility] [address] [place] [id number] 09/01/2025 9:30 AM EDT Office Visit [facility] [address] [place] [phone] Aristides Reina MD [address] [place] [address] 09/01/2025 11:00 AM EDT Appointment [facility] [address] [place] [phone] 09/03/2025 10:30 AM EDT Appointment [facility] [address] [place] [address] 09/15/2025 9:30 AM EST Appointment [facility] [address] [place] [address] 09/17/2025 9:00 AM EST Appointment [facility] [address] [place] [address] 09/21/2025 8:45 AM EST Office Visit [facility] [address] [facility], [address] [place] [address] Juarez Recinos MD [address] [place], [place] [phone] 09/28/2025 8:00 AM EST Appointment [facility] [address] [place] [phone] 09/28/2025 9:00 AM EST Appointment [facility] PET Scan [address] [place] [phone] 09/28/2025 10:15 AM EST Office Visit [facility] [address] [facility], [address] [place] [address] Kim Machado MD [address] [place] [address] 01/13/2026 12:00 PM EST Office Visit [facility] [address] [place] [phone] Eros Mejia MD [address] [place] [phone] documented as of this encounter Visit Diagnoses Not on filedocumented in this encounter Additional Health Concerns Infection Onset Date Last Indicated Resolved Time C. difficile Rule-Out 08/13/2025 08/14/20252024 12:34 PM EDT Gastrointestinal Rule-Out 08/13/2025 08/14/2025 1:05 PM EDT Assessment Noted Time A fall risk assessment has been complete d for the patient 08/05/2025 10:30 AM EDT A Body Mass Index follow-up plan has been documented for the patient 08/15/2025 6:37 PM EDT documented as of this encounter Care Teams Latex Fashions Designer Relationship Specialty Start Date End Date Darius Ken MD [address] [place] [id number] PCP - General Internal Medicine 08/23/24 documented as of this encounter
--- NOTE | 2025-08-26 07:19 | HMH.EDCP ---
Discharge Plan Disposition Patient Disposition: Xfer Short-Term Hosp Prescriptions Prescriptions: No Action famotidine [Pepcid] 40 mg tablet 40 mg PO DAILY bisoprolol fumarate 5 mg tablet 5 mg PO DAILY rosuvastatin 10 mg tablet 10 mg PO DAILY alfuzosin 10 mg tablet extended release 24 hr 10 mg PO DAILY Referrals Follow up/Referrals: Darius Ken MD [Primary Care Provider, Internal Medicine] - See instructions Clinical Impressions Clinical Impression: Neutropenic fever, Non-ST elevation [place] (NSTEMI), Esophageal cancer, Hypocalcemia Print Language Print Language: Pakistani Discharge ED Provider: Anand Ritchie HPI General Chief Complaint: Chest Pain Stated Complaint: N/D Time Seen by Provider: 08/26/25 07:10 History of Present Illness HPI narrative: Patient is 69-year-old male with past medical history of hypertension not currently on antihypertensive therapy, 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 He has had odynophagia low chest discomfort nausea vomiting cysts for the last 4 weeks since he has completed his immunotherapy but has gotten worse over the last 48 hours with his recent dose of immunotherapy. Low chest pain is prohibiting him from sleeping. He is not on any anticoagulants. No trauma. [facility] and was diagnosed with this cancer in July. No radiation no surgical intervention no coronary history. No other acute complaints at this time. His nausea and vomiting are nonbloody. Please note that above description of symptoms, in this electronic medical record under categorization of recalled from ER triage doctor by RN are reflective of an initial nursing assessment, however, is not reflective of my full history and physical exam that was personally taken and clarified. Consequentially, this preceding description of symptoms, which may include the patient's categorized chief complaint in the EMR, do not reflect my personal clinical impression, and the ultimate description of history of present illness and patient stated complaints should be deferred to this section of the note. Unless stated otherwise or congruent with this section of the note, additional signs, symptoms, or incongruence should be interpreted as inaccurate with my clinical impression. Related Data Home Medications ?Medication ?Instructions ?Recorded ?Confirmed alfuzosin 10 mg tablet,extended 10 mg PO DAILY 01/24/24 06/30/25 release 24 hr bisoprolol fumarate 5 mg tablet 5 mg PO DAILY 01/24/24 06/30/25 rosuvastatin 10 mg tablet 10 mg PO DAILY 01/24/24 06/30/25 famotidine 40 mg tablet (Pepcid) 40 mg PO DAILY 06/30/25 06/30/25 Allergies Allergy/AdvReac Type Severity Reaction Status Date / Time Penicillins AdvReac Unknown Verified 08/13/25 05:12 [facility] Dis[facility]: The information contained in this section may have been updated after the patient was seen, as this information can be updated by other users. Medical History (Updated 08/26/25 @ 10:51 by Anand Ritchie MD) Hyperlipidemia Hypertension Surgical History History of esophagogastroduodenoscopy (EGD) History of colonoscopy Family History Other No significant family history Social History Smoking Status: Never smoker alcohol intake: never substance use type: denies use current occupational status: retired Travel in the last 8 weeks?: None Have you lived/traveled outside US in past 30 days?: No Contact w/someone who lives/traveled outside US past 30 days?: No Exposure to someone with infectious disease in past 14 days?: No Do you have a fever (greater than 100.4 F or 38 C)?: No Have you tested positive for COVID-19?: No Exposed to someone with COVID-19 in past 14 days?: No Do you have a sore throat?: No Do you have a cough?: No Do you have any weakness?: No Do you have any diarrhea?: No Are you experiencing any unusual bleeding?: No Do you have any muscle aches/pain?: No Do you have any abdominal pain?: No Are you experiencing loss of taste or smell?: No Other Medical History Have you received the Pneumonia Vaccine: Yes ROS Obtained: Yes Systems reviewed as appropriate & no additional complaints except as documented Physical Exam General General appearance: in no apparent distress Comment: Ill-appearing Head Head exam: atraumatic and normocephalic Eye Eye exam: Present PERRL and EOMI ENT ENT exam: Present mucous membranes moist Neck Neck exam: Present normal inspection Chest Chest inspection: Present normal inspection and symmetric chest wall rise Respiratory Respiratory exam: Present normal lung sounds bilaterally; Absent respiratory distress Cardiovascular Cardiovascular exam: Present regular rate and normal rhythm Abdominal Exam Abdominal exam: Present soft; Absent tenderness, guarding, rebound or rigidity Extremities Exam Extremities exam: Present normal inspection Neurological Exam Neurological exam: Present alert and CN II-XII intact Psychiatric Psychiatric exam: Present normal affect Skin Skin exam: Present warm and dry HEART Score HEART Score HEART Score assessment performed?: Yes History (anamnesis): Moderately suspicious ECG: Non-specific disturbance Age: >65 years Risk factors: 1-2 risk factors Troponin: > 3x normal limit HEART Score: 7 Critical Care Critical Care Time Critical Care Time: Yes Attestation: On 08/26/25, the high probability of a clinically significant, sudden or life threatening deterioration of the following system(s) required my full and direct attention, intervention and personal management. The time I documented below is in addition to time spent performing reported procedures but includes the following listed in this critical care notation. Total Time Total Critical Care Time: 45 Medical Decision Making Matt Inquiry Pt receiving controlled substance: No Vital Signs Vital Signs: 08/26/25 07:03 08/26/25 07:03 08/26/25 07:11 Temperature 99 F 99 F Temperature Source Oral Oral Pulse Rate 106 H 68 Pulse Rate [Right] 106 H Respiratory Rate 19 19 24 Blood Pressure 119/74 119/74 Blood Pressure [Right Arm] 119/74 Blood Pressure Mean 80 Blood Pressure Mean [Right Arm] 89 Blood Pressure Source Automatic Cuff Blood Pressure Source [Right Arm] Automatic Cuff Blood Pressure Position Supine Blood Pressure Position [Right Arm] Supine 02 Sat by Pulse Oximetry 98 98 98 Oxygen Delivery Method Room Air Room Air 08/26/25 07:30 08/26/25 08:00 08/26/25 08:00 Temperature 102.3 F H Temperature Source Rectal Pulse Rate 68 102 H Pulse Rate [Right] Respiratory Rate 24 21 Blood Pressure 112/77 120/60 Blood Pressure [Right Arm] Blood Pressure Mean 83 87 Blood Pressure Mean [Right Arm] Blood Pressure Source Blood Pressure Source [Right Arm] Blood Pressure Position Blood Pressure Position [Right Arm] 02 Sat by Pulse Oximetry 98 98 Oxygen Delivery Method 08/26/25 08:30 08/26/25 09:00 08/26/25 09:03 Temperature Temperature Source Pulse Rate 70 93 H 96 H Pulse Rate [Right] Respiratory Rate 22 19 Blood Pressure 123/77 89/64 L 92/63 L Blood Pressure [Right Arm] Blood Pressure Mean 85 Blood Pressure Mean [Right Arm] Blood Pressure Source Blood Pressure Source [Right Arm] Blood Pressure Position Blood Pressure Position [Right Arm] 02 Sat by Pulse Oximetry 100 97 95 Oxygen Delivery Method Room Air Room Air Room Air 08/26/25 09:23 08/26/25 09:30 08/26/25 10:20 Temperature Temperature Source Pulse Rate 95 H 95 H 85 Pulse Rate [Right] Respiratory Rate 20 21 19 Blood Pressure 95/57 L 98/61 L 111/69 Blood Pressure [Right Arm] Blood Pressure Mean Blood Pressure Mean [Right Arm] Blood Pressure Source Blood Pressure Source [Right Arm] Blood Pressure Position Blood Pressure Position [Right Arm] 02 Sat by Pulse Oximetry 98 98 98 Oxygen Delivery Method Room Air Room Air Room Air 08/26/25 10:30 Temperature Temperature Source Pulse Rate 84 Pulse Rate [Right] Respiratory Rate 19 Blood Pressure 108/63 L Blood Pressure [Right Arm] Blood Pressure Mean Blood Pressure Mean [Right Arm] Blood Pressure Source Blood Pressure Source [Right Arm] Blood Pressure Position Blood Pressure Position [Right Arm] 02 Sat by Pulse Oximetry 97 Oxygen Delivery Method Room Air Lab Data Labs: Lab Results 08/26/25 07:30: WBC 1.3 L*, RBC 3.77 L, Hgb 11.4 L, Hct 32.3 L, MCV 85.7, MCH 30.2, MCHC 35.3, RDW 12.5, Plt Count 193, MPV 11.4 H, Neut % (Auto) 48.8, Lymph % (Auto) 15.5, Preble % (Auto) 34.1 H, Eos % (Auto) 0.8, Baso % (Auto) 0.0 L, Neut # (Auto) 0.6 L*, Lymph # (Auto) 0.2 L, Preble # (Auto) 0.4, Eos # (Auto) 0.0, Baso # (Auto) 0.0, Total Counted 25, Neutrophils % (Manual) 24 L, Lymphocytes % (Manual) 48, Atypical Lymphs % 4.0, Monocytes % (Manual) 24 H, Platelet Estimate Normal, RBC Morphology Normal, Sodium 124 L, Potassium 3.6, Chloride 93 L, Carbon Dioxide 24, Anion Gap 10.6, BUN 28 H, Creatinine 1.40 H, Estimated Creat Clear 60, Estimated GFR 50 L, Est GFR ( Amer) 61, Glucose 140 H, Calcium 7.9 L, Magnesium 1.7, Total Bilirubin 0.9, AST 32, ALT 32, Alkaline Phosphatase 83, Troponin I 0.12 H, Total Protein 5.5 L, Albumin 2.7 L, Globulin 2.8, Albumin/Globulin Ratio 1.0 L, Lipase 26 08/26/25 07:45: VBG pH 7.51 H, VBG pCO2 29.9 L, VBG pO2 45.4 H, VBG HCO3 23.3, VBG Total CO2 24.2, VBG O2 Saturation 84.0 H, VBG Base Excess 0.3, VBG Lactic Acid 2.5 H 08/26/25 07:30 08/26/25 07:30 Response Orders (Tests/Meds): ED MEDICATIONS Generic Name Dose Route Start Last Admin Trade Name Freq PRN Reason Stop Dose Admin Sodium Chloride 10 ml 08/26/25 08:19 08/26/25 08:20 Sodium Chloride 0.9% 10ml Syr (Rad Only) IV 09/25/25 08:18 10 ml NEEDED PRN Administration Maintain IV Site Discontinued Medications Generic Name Dose Route Start Last Admin Trade Name Freq PRN Reason Stop Dose Admin Aspirin 324 mg 08/26/25 07:21 08/26/25 07:47 Aspirin 81mg Chewable Tablet PO 08/26/25 07:22 324 mg ONCE ONE Administration Lactated Ringer's 1,000 mls @ 999 mls/hr 08/26/25 07:16 08/26/25 09:24 Lactated Ringer's 1000 Ml Bag IV 08/26/25 08:16 Infused .Q1H1M ONE Infusion Calcium Gluconate/Sodium Chloride 2 gm in 100 mls @ 50 mls/hr 08/26/25 08:03 08/26/25 09:46 Calcium Gluconate 2,000mg/100ml Nacl Premix IV 08/26/25 10:02 50 mls/hr ONCE ONE Administration Cefepime HCl 2 gm/ Sodium 100 mls @ 200 mls/hr 08/26/25 08:04 08/26/25 09:33 Chloride IV 08/26/25 08:33 Infused ONCE ONE Infusion Sodium Chloride 2,330 mls @ 1,165 mls/hr 08/26/25 08:05 08/26/25 09:45 Sod Chlor 0.9% 1000ml Bag 30 ml/kg infuse over 2 hr (2330 ml) 08/26/25 10:04 1,165 mls/hr IV Administration .Q2H ONE Iopamidol 75 ml 08/26/25 08:19 08/26/25 08:19 Iopamidol-370 (76%);100ml Bottle IV 08/26/25 08:20 75 ml ONCE ONE Administration Morphine Sulfate 4 mg 08/26/25 07:18 08/26/25 07:47 Morphine 4mg/Ml Syringe IV 08/26/25 07:19 4 mg ONCE ONE Administration Ondansetron HCl 4 mg 08/26/25 07:18 08/26/25 07:47 Ondansetron 4mg/2ml Vial IV 08/26/25 07:19 4 mg ONCE ONE Administration ORDERS Category Date Time Status CT abdomen pelvis w con Stat Cat Scan 08/26/25 07:[address] chest w con Stat Cat Scan 08/26/25 07:16 Completed CBC w/Auto Diff [Complete Blood Count Auto Diff] Stat Lab 08/26/25 07:30 Completed CMP [Comprehensive Metabolic Panel] Stat Lab 08/26/25 07:30 Completed Diarrhea 23 Panel, PCR Stat Lab 08/26/25 08:05 Ordered Lipase Stat Lab 08/26/25 07:30 Completed MG [Magnesium] Stat Lab 08/26/25 07:30 Completed Trop I [Troponin I] Stat Lab 08/26/25 07:30 Completed Troponin I Q3H Lab 08/26/25 10:20 Received Troponin I Q3H Lab 08/26/25 13:30 Ordered Blood Culture Stat Micro 08/26/25 08:30 Received VBG [Venous Blood Gas] Stat RT 08/26/25 07:45 Completed ECG Data Tracing #1: ECG Narrative: Independently interpreted by me rate is 102, rhythm is irregular, axis is normal, no ST elevation in anatomical contiguous leads QTc 299, sinus arrhythmia with supraventricular complexes, no atrial fibrillation MDM Narrative Medical Decision Narrative: In summary patient is 69-year-old male with past medical history described above presents emergency department for evaluation of nausea, vomiting, odynophagia, low chest pain in setting of adenocarcinoma on immunotherapy. Patient is hemodynamically stable and nontoxic-appearing upon arrival, febrile temperature 102.3 degrees rectally. Differential diagnosis includes neutropenic fever, bacteremia, worsening cancer, expected side effect from immunotherapy, viral gastroenteritis, pancreatitis, ACS, among others. Workup will be conducted with hematologic labs, CT of the chest, abdomen pelvis IV contrast. Given that patient meets sepsis criteria with tachycardia and fever and has no volume overload on exam no history of heart failure sepsis bolus fluids will be administered. Initial interventions also include antiemetic, aspirin, morphine. I reviewed patient's [facility] chart he was recently diagnosed with esophageal adenocarcinoma his chemotherapy is fluorouracil plus leucovorin plus oxaliplatin plus docetaxal every 14 days for which he just completed his second course he has a history of BPH, hyperlipidemia he was found to have paroxysmal atrial fibrillation in his recent admission in early August was initiated on Eliquis with mildly elevated troponins he was started on therapeutic anticoagulation patient was recently admitted for similar complaint that he presented here today his GI pathogen panel was negative and C. difficile toxin negative. Initial hematologic labs reviewed by me, leukopenia with near absolute neutropenia total neutrophil count 600. Given that patient is close to definition of neutropenic fever and recent chemotherapy with possible margot going lower than 500 benefits outweigh the risk blood cultures will be obtained, cefepime 2 g will be administered. VBG interpreted by me there is a lactic acidosis with superimposed respiratory alkalosis, there is also stable hyponatremia and hypochloremia consistent with his history of vomiting stable subacute kidney injury, hypocalcemia which 2 g of calcium gluconate will be administered. Although patient is tachycardic he is on anticoagulants and pulmonary embolism is less likely would not be pursued at this time. Case was discussed with [facility] transfer center Dr. Zayas given neutropenic fever with troponin anemia patient is appropriate for transferred for higher level of care given that their primary cancer center is at [facility]. Patient was transported in stable condition.
[2025-08-26] MEDS: MORPHINE 4MG/ML SYRINGE 4 MG IV (07:47)
[2025-08-26] MEDS: LACTATED RINGERS 1000ML 1,000 ML 999 ML IV (07:47)
[2025-08-26] MEDS: ONDANSETRON 4MG/2ML VIAL 4 MG IV (07:47)
[2025-08-26] MEDS: ASPIRIN 81MG CHEWABLE TABLET 324 MG PO (07:47)
[2025-08-26 07:51] LABS: Lactate Venous 2.5 mmol/L (0.4-2.0); VBG HCO3 23.3 mmol/L (23-30); VBG PCO2 29.9 mmol/L (35-51); VBG PH 7.51 mmol/L (7.31-7.41); VBG PO2 45.4 mmol/L (28-40)
[2025-08-26 07:54] LABS: Hematocrit 32.3 % (42.0-52.0); Hemoglobin 11.4 g/dL (14.1-18.0); Immature Granulocytes % 0.8 %; Mean Corpuscular HGB Conc 35.3 g/dL (31.8-35.4); Mean Corpuscular Hemoglobin 30.2 pg (27.0-31.2); Mean Corpuscular Volume 85.7 fl (80-94); Nucleated Red Blood Cells % 0 %; Platelet Count 193 K/mm3 (142-424); Red Blood Count 3.77 M/mm3 (4.60-6.20); Red Cell Distribution Width-SD 38.9 fL
[2025-08-26 07:56] LABS: Albumin Level 2.7 g/dl (3.5-5.0); Chloride 93 mmol/L (98-107); Potassium 3.6 mmoL/L (3.5-5.1); Sodium 124 mmol/L (136-145)
[2025-08-26 07:58] LABS: Blood Urea Nitrogen 28 mg/dl (9-20)
[2025-08-26 07:59] LABS: Alanine Aminotransferase 32 U/L (12-78); Albumin/Globulin Ratio 1.0 (1.1-1.8); Alkaline Phosphatase 83 U/L (38-126); Anion Gap 10.6 mEq/L (5-15); Aspartate Amino Transferase 32 U/L (17-59); Bilirubin,Total 0.9 mg/dl (0.2-1.3); Calcium 7.9 mg/dl (8.4-10.2); Carbon Dioxide 24 mmol/L (22.0-30.0); Creatinine Clearance Estimated 60 mL/min (50-200); Creatinine,Serum 1.40 mg/dl (0.66-1.25); Estimated Glomerular Filt Rate 50 ml/min (>60); GFR (African American) 61 ML/MIN (>60); Globulin 2.8 g/dL (1.3-3.2); Glucose 140 mg/dl (74-100); Lipase 26 U/L (23-300); Magnesium 1.7 mg/dl (1.6-2.3); Total Protein,Serum 5.5 g/dl (6.3-8.2); White Blood Count 1.3 K/mm3 (4.8-10.8)
[2025-08-26 08:11] LABS: Troponin I 0.12 ng/ml (0.00-0.034)
[2025-08-26] MEDS: IOPAMIDOL-370 (76%);100ML BOTTLE 75 ML IV (08:19)
[2025-08-26] MEDS: SODIUM CHLORIDE 0.9% 10ML SYR (RAD ONLY) 10 ML IV (08:20)
[2025-08-26 08:27] LABS: RBC Morphology Normal; Total Cells Counted 25
[2025-08-26] MEDS: CEFEPIME HCL 2 GM in 0.9 % SODIUM CHLORIDE 100 ML IV (08:56)
[2025-08-26] MEDS: 0.9 % SODIUM CHLORIDE 1000ML 2,330 ML 1165 ML IV (09:45)
[2025-08-26] MEDS: CALCIUM GLUC IN NACL, ISO-OSM 2 GM/100 ML BAG IV (09:46)
--- NOTE | 2025-08-26 10:45 | PC.NURSE ---
Called [facility] per Dr Ritchie to speak with oncolgy about this pt for neutropenic fever. Images were powershared and Dr Ritchie is speaking with Dr Zayas at this time
[2025-08-26 10:50] LABS: Troponin I 0.10 ng/ml (0.00-0.034)
--- NOTE | 2025-08-26 11:14 | PC.NURSE ---
Report called to YAHAIRA Choi at [facility].
--- NOTE | 2025-08-26 11:17 | PC.NURSE ---
EMS calleed for the transfer to [facility]
[2025-08-26 11:53] LABS: Reflex Lactic Add Lactic Reflex
--- NOTE | 2025-08-26 11:57 | PC.NURSE ---
EMS at to transfer patient to [facility].
[2025-08-27 03:19] LABS: Acinetobacter calcoaceticus-ba Not Detected; Bacteroides fragilis Not Detected; CTX-M Not Detected; Candida auris Not Detected; Candida glabrata Not Detected; Enterobacterales Not Detected; Enterococcus faecalis Not Detected; Enterococcus faecium Not Detected; IMP Not Detected; KPC Not Detected; Klebsiella aerogenes Not Detected; Klebsiella pneumoniae grp Not Detected; NDM Not Detected; Proteus spp. Not Detected; Salmonella spp. Not Detected; Serratia marcescens Not Detected; Staphylococcus epidermidis Not Detected; Staphylococcus lugdunensis Not Detected; Staphylococcus spp. Not Detected; Stenotrophomonas maltophilia Not Detected; Streptococcus agalactiae(GrpB) Not Detected; Streptococcus pyogenes Group A Not Detected; Streptococcus spp. Not Detected; VIM Not Detected
[2025-08-27 03:43] LABS: Acinetobacter calcoaceticus-ba Not Detected; Bacteroides fragilis Not Detected; CTX-M Not Detected; Candida auris Not Detected; Candida glabrata Not Detected; Enterobacterales Detected; Enterococcus faecalis Not Detected; Enterococcus faecium Not Detected; IMP Not Detected; KPC Not Detected; Klebsiella aerogenes Not Detected; Klebsiella pneumoniae grp Not Detected; NDM Not Detected; OXA-48-like Not Detected; Proteus spp. Not Detected; Salmonella spp. Not Detected; Serratia marcescens Not Detected; Staphylococcus epidermidis Not Detected; Staphylococcus lugdunensis Not Detected; Staphylococcus spp. Not Detected; Stenotrophomonas maltophilia Not Detected; Streptococcus agalactiae(GrpB) Not Detected; Streptococcus pyogenes Group A Not Detected; Streptococcus spp. Not Detected; VIM Not Detected; mcr-1 Not Detected
--- NOTE | 2025-08-27 05:50 | PC.NURSE ---
spoke with [facility] regarding blood culture results, fax number given and results faxed
--- NOTE | 2025-08-29 10:33 | PC.NURSE ---
Final blood culture faxed to [facility] as pt was transferred and accepted by .
== END 2025-08-26 12:09 | disposition short-term general hospital (02) ==
PROVIDERS: Emergency Provider Emergency Medicine; PCP Internal Medicine Adolescent Medicine
DX: I21.4 Non-ST elevation (NSTEMI) myocardial infarction (principal); D70.9 Neutropenia, unspecified; C15.9 Malignant neoplasm of esophagus, unspecified; E83.51 Hypocalcemia
CPT/HCPCS: 71260; 74177; 80053; 82803; 83690; 83735; 84484; 85007; 85025; 87040; 87077; 87154; 87186; 93005; 96365; 96367; 96375; 99285; 99291; J0612; J0692; J2270; J2405; J7030; J7120; Q9967

== ENCOUNTER 2025-10-19 12:47 | Outpatient (RCR) | payer MEDICARE, SELFPAY | END 2025-10-19 23:59 | disposition home or self-care (01) | LOC: OT 12:47 | PROVIDERS: PCP Internal Medicine Adolescent Medicine; Visit Provider Internal Medicine | DX: C16.0 Malignant neoplasm of cardia (principal) | CPT/HCPCS: 97166 ==

== ENCOUNTER 2025-10-20 13:04 | Outpatient (CLI) | payer MEDICARE, SELFPAY | END 2025-10-20 23:59 | disposition home or self-care (01) | LOC: RT 13:05 | PROVIDERS: PCP Internal Medicine Adolescent Medicine; Visit Provider Internal Medicine Adolescent Medicine | DX: I48.0 Paroxysmal atrial fibrillation (principal); I95.1 Orthostatic hypotension | CPT/HCPCS: 93270 ==

== ENCOUNTER 2025-10-24 08:35 | Outpatient (CLI) | payer MEDICARE, SELFPAY ==
--- OUTSIDE RECORDS SUMMARY | 2025-08-26 11:54 | XMS_ITS | Encounter Summary ---
Author Organization Healthcare Address [address] [place] [id number] Care Team Providers Care Assistant Store Manager Trainee Name Role Phone Darius Ken MD Primary Care Provider [phone] Reason for Referral * Consultation (Routine) - Closed Specialty Diagnoses / Procedures Referred By Broderick olivares Referred To Contact Urology Diagnoses Urinary retention Joyce Gunderson MD [address] [place] [address] Phone: tel: fax: [facility] [address] [place] [address] Phone: tel: fax: Referral ID Status Reason Start Date Expiration Date V isits Requested Visits Authorized [id number] Closed Specialty Services Required 09/10/2025 03/12/2027 1 1 Scheduling Instructions Urinary retention, large prostate, traumatic bernsetin placement with gross hematuria, eliquis for afib * Consultation (Routine) - Authorized Specialty Diagnoses / Procedures Referred By Broderick olivares Referred To Contact Family Medicine Diagnoses Urinary retention Gross hematuria Joyce Gunderson MD [address] [place] [phone] Phone: tel: fax: Referral ID Status Reason Start Date Expiration Date V isits Requested Visits Authorized [id number] Authorized 09/12/2025 03/14/2027 1 1 * Consultation (Routine) - Authorized Specialty Diagnoses / Procedures Referred By Broderick t Referred To Contact Occupational Therapy Diagnoses Adenocarcinoma of gastroesophageal junction Sheyla Malagon MD [address] [place] [address] Phone: tel: fax: Referral ID Status Reason Start Date Expiration Date Visits Requested Visits Authorized [id number] Authorized Consult and Treat 09/02/2025 03/04/2027 1 1 * Consultation (Routine) - Authorized Specialty Diagnoses / Procedures Referred By Broderick olivares Referred To Contact Physical Therapy Diagnoses Adenocarcinoma of gastroesophageal junction Sheyla Malagon MD [address] [place] [phone] Phone: tel: fax: Referral ID Status Reason Start Date Expiration Date Visits Requested Visits Authorized [id number] Authorized Consult and Treat 09/02/2025 03/04/2027 1 1 Reason for Visit * Reason Comments Vomiting * Auth/Cert (Routine) Specialty Diagnoses / Procedures Referred By Broderick olivares Referred To Contact Diagnoses Sepsis (CMS/HCC) Neutropenic Fever Evi Reeves MD [address] [place] [address] Phone: tel: fax: [facility] Emergency Department [address] [place] [phone] Phone: tel: Referral ID Status Reason Start Date Expiration Date Visits Re quested Visits Authorized [id number] 1 1 Encounter Details Date Type Department Care Team (Latest Contact Info) Description 08/26/2025 12:54 PM EDT - 09/12/2025 5:50 PM EST Hospital Encounter [facility] Inpatient [facility] [address] [place] [address] Dimitrios Chang MD [address] [place] [address] Maxi Donaldson MD [address] [place] [address] Evi Reeves MD [address] [place] [address] Jadon Rangel MD [address] [place] [address] Sheyla Malagon MD [address] [place] [address] Joyce Gunderson MD [address] [place] [address] Neutropenic fever (CMS/HCC) (Primary Dx); C. difficile colitis; Adenocarcinoma of gastroesophageal junction; Urinary retention; Gross hematuria Discharge Disposition: Home or Self Care Social History Tobacco Use Types Packs/Day Years Used Date Smoking Tobacco: Never Smokeless Tobacco: Never Alcohol Use Standard Drinks/Week Comments Never 0 (1 standard drink = 0.6 oz pur e alcohol) PHQ-2 Answer Date Recorded Patient Health Questionnaire-2 Score 0 10/13/2025 PHQ-9 Answer Date Recorded Patient Health Questionnaire-9 Score 0 08/18/2025 Humiliation, Afraid, Rape, and Kick questionnair e Answer Date Recorded Within the last year, have y ou been afraid of your partner or ex-partner? No 10/10/2025 Within the last year, have y ou been humiliated or emotionally abused in other ways by your partner or ex-partner? No Within the last year, have y ou been kicked, hit, slapped, or otherwise physically hurt by your partner or ex-partner? No 10/10/2025 Within the last year, have y ou been raped or forced to have any kind of sexual activity by your partner or ex-partner? No 10/10/2025 Hunger Vital Sign Answer Date Recorded Within the past 12 months, y ou worried that your food would run out before you got the money to buy more. Never true 10/10/20 25 Within the past 12 months, t he food you bought just didn't last and you didn't have money to get more. Never true 10/10/2025 PRAPARE - Transportation Answer Date Re corded In the past 12 months, has l ack of transportation kept you from medical appointments or from getting medications? No 11/2024 In the past 12 months, has l ack of transportation kept you from meetings, work, or from getting things needed for daily living? No 10/10/2025 Housing Stability Vital Sign Answer Mundo e Recorded In the last 12 months, was t here a time when you were not able to pay the mortgage or rent on time? No 10/10/2025 In the past 12 months, how m any times have you moved where you were living? 0 10/10/2025 At any time in the past 12 m [facility], were you homeless or living in a penitentiary (including now)? No 10/10/2025 [facility] Utilities Answer Date Recorded In the past 12 months has th e electric, gas, oil, or water company threatened to shut off services in your home? No 10/10/2025 Sex and Gender Information Value Date Recorded Sex Assigned at Male 07/23/2024 9:40 AM EDT Legal Sex Male 8:50 PM EDT Gender Identity Male 07/23/2024 9:40 AM EDT Sexual Orientation Not on file documented as of this encounter Last Filed Vital Signs Vital Sign Reading Time Taken Comments Blood Pressure 102/61 09/12/2025 3:34 PM EST Pulse 81 09/12/2025 3:34 PM EST Temperature 36.9 C (98.4 F) 09/12/2025 3:34 PM EST Respiratory Rate 17 09/12/2025 3:34 PM EST Oxygen Saturation 96% 09/12/2025 3:34 PM EST Inhaled Oxygen Concentration - - Weight 88 kg (194 lb 0.1 oz) 09/12/2025 6:58 AM EST Height 182.9 cm (6') 08/26/2025 1:05 PM EDT Body Mass Index 26.31 08/26/2025 1:05 PM EDT documented in this encounter Functional Status * Question Answer Date of Assessment Author Precautions Fall risk;[facility] surveillance 10/05/2025 4:00 PM Loni Sanchez RN * Over the past 2 weeks, how often have you been bothered by any of the following problems? Question Answer Date of Assessment Author Little interest or pleasure in doing things Not at all 09/29/2025 9:21 AM Carolin Llanos CNA Feeling down, depressed, or hopeless Not at all 09/29/2025 9:21 AM Carolin Llanos CNA Patient Health Questionnaire -2 Score 0 09/29/2025 9:21 AM Carolin Llanos CNA * Calculated C-SSRS Risk Score (Lifetime/Recent) Answer Date of Assessment Author No Risk Indicated 10/05/2025 4:00 PM Loni Sanchez RN * Question Answer Date of Assessment Author 1. Wish to be (Past 1 Month) No 025 4:00 PM Loni Sanchez RN 2. Non-Specific Active Suici pearl Thoughts (Past 1 Month) No 10/05/2025 4:00 PM Loni Sanchez RN 6. Suicidal Behavior (Lifetime) No 5 4:00 PM Loni Sanchez RN documented as of this encounter Mental Status * Question Answer Entry Date Author Precautions Fall risk;[facility] surveillance 10/05/2025 4:00 PM Loni Sanchez RN * Question Answer Entry Date Author Scale Used John 08/26/2025 9:09 PM EDT Aristides Villatoro RN documented in this encounter Medications at Time of Discharge famotidine (Pepcid) 20 MG tablet Take 1 tablet by mouth daily. acetaminophen (Tylenol) 500 MG tablet Take 1 tablet by mouth every 6 hours as needed for pain or fever. alfuzosin (Uroxatral) 10 MG 24 hr tablet Take 1 tablet by mouth daily. 06/23/2024 11/13/202 5 apixaban (Eliquis) 5 MG tablet Take 1 tablet by mouth 2 times a day. 60 tablet 08/15/2025 5 bisoprolol (Zebeta) 5 MG tablet 08/24/2025 5 diphenhydrAMINE (Benadryl) 25 MG tablet Take 1 tablet by mouth at night as needed for itching. 5 finasteride (Proscar) 5 MG tablet Take 1 tablet by mouth daily. Do not crush, chew, or split. 30 tablet 09/13/2025 5 guaiFENesin (Robitussin) 100 MG/5ML solution Take 10 mL by mouth every 4 hours as needed for cough. 5 HYDROcodone-acet aminophen (Fairfax) 5-325 MG tablet Take 1 tablet by mouth every 6 hours as needed for moderate pain or severe pain. 28 tablet 09/12/2025 5 lidocaine (Uro-Jet) 2 % gel Insert 1 Application into the urethra as needed for mild pain. 15 mL 09/12/2025 5 loperamide (Imodium A-D) 2 MG tablet Take 1 tablet by mouth every 2 hours as needed for diarrhea. MAX 8 tablets daily 5 melatonin tablet Take 2 tablets by mouth at night as needed for sleep. 30 tablet 09/12/2025 5 oxyCODONE-acetam inophen (Percocet) 5-325 MG tablet Take 1 tablet by mouth every 6 hours as needed for severe pain. 120 tablet 08/10/2025 5 pantoprazole (Protonix) 40 MG EC tablet Take 1 tablet by mouth daily. Do not crush, chew, or split. 30 tablet 08/15/2025 5 rosuvastatin (Crestor) 10 MG tablet Take 1 tablet by mouth daily. 06/23/2024 5 sodium chloride (Amoret) 0.65 % nasal spray Administer 1 spray into each nostril as needed for congestion. 30 mL 12 09/12/2025 5 Vancomycin HCl 50 MG/ML oral solutionIndicati ons:C. difficile colitis Take 2.5 mL by mouth 4 times a day for 31 doses. 77.5 mL 09/12/2025 documented as of this encounter Miscellaneous Notes * Nursing Note - Lillian Cueto RN - 09/12/2025 5:50 PM EST Task Description: Joyce Gunderson MD [facility] Providers Only Attach patient's chart to the message first, then use F2 to complete the form Patient name: Justin Best Task: Schedule outpatient appointment of discharged or ED patient Task description: Please set up urology appointment in 1 week Ordering provider: JOYCE Lucio MD How soon?: 1 week Request NN callback?: No NN call back specifics?: Not applicable Date of discharge: 09/11/25 Readmission risk score?: mild Appointment Description: 09/12/25 2:28pm Nurse Navigator NN reviewed epic and Urology referral placed. NN will followup on status of appt tomorrow and notify Mr. Best of the appt and Dr. Lucio. 09/13/2025 at 1323: NN reviewed Epic and Urology appt not scheduled. NN sent an [employer] Secure chat message to Iona Huddleston, requesting assistance with scheduling his appt. NN called the Urology Clinic and was advised a message will be sent to nursing staff to advise of requested timeframe for Mr. Best' appt. 09/13/2025 at 1357: NN received an Epic Chat reply from Ms. Perez advising she left a vxm for Mr. Best advising his appt is scheduled for 09/22, which is first available. 09/13/2025 at 1508: NN received an [employer] Chat message from Ms. Perez advising Mr. Best has returned her call and confirmed his appointment for 09/22. 09/23/25 11:51am NN reviewed epic and Urology apptwas attended. NN updating Dr. Lucio and completing the request. Cosigned by Joyce Gunderson MD at 09/25/2025 4:20 PM EST Associated attestation - Joyce Gunderson MD - 09/25/2025 4:20 PM EST Signature only * Nursing Note - Marcia Reynolds RN - 09/12/2025 5:39 PM EST AVS discharge instructions: s/s of infection, when to call, how to reach doctor, follow up, discharge diet and activity, bernstein care and how to flush (per MD Luca Lucio flush as needed for pressure or clots-education provided to ), home medications to continue, new medications. Educational attachments given and reviewed: new medications, bernstein care and how to care for bernstein bag. PT/OT outpatientscript given. Patient picking up WC from Ezio. Meds to beds delivered. * Care Plan - Nancy Hale RN - 09/12/2025 5:12 PM EST Problem: Adult Inpatient Plan of Care Goal: Patient-Specific Goal (Individualized) 09/12/20251710 by Nancy Hale RN Outcome: Ongoing, Progressing Flowsheets (Taken 09/12/2025 0800) Patient/Family-Specific Goals (Include Timeframe): pt will verbalize understanding and agreement with plan of care during shift 09/12/20251624 by Nancy Hale RN Outcome: Ongoing, Progressing Flowsheets (Taken 09/12/2025 0800) Patient/Family-Specific Goals (Include Timeframe): pt will verbalize understanding and agreement with plan of care during shift Goal: Optimal Comfort and Wellbeing 09/12/20251710 by Nancy Hale RN Outcome: Ongoing, Progressing 09/12/20251624 by Nancy Hale RN Outcome: Ongoing, Progressing Intervention: Provide Person-Centered Care Flowsheets (Taken 09/12/2025 0535 by Oksana Santos RN) Trust Relationship/Rapport: care explained questions encouraged choices provided reassurance provided emotional support provided thoughts/feelings acknowledged empathic listening provided questions answered Problem: Infection Goal: Absence of Infection Signs and Symptoms 09/12/20251710 by Nancy Hale RN Outcome: Ongoing, Progressing 09/12/20251624 by Nancy Hale RN Outcome: Ongoing, Progressing Intervention: Prevent or Manage Infection Flowsheets (Taken 09/12/2025 0535 by Oksana Santos RN) Infection Management: aseptic technique maintained Problem: Skin Injury Risk Increased Goal: Skin Health and Integrity 09/12/20251710 by Nancy Hale RN Outcome: Ongoing, Progressing 09/12/20251624 by Nancy Hale RN Outcome: Ongoing, Progressing Intervention: Optimize Skin Protection Flowsheets Taken 09/12/20251710 by Nancy Hale RN Skin Protection: incontinence pads utilized skin sealant/moisture barrier applied Taken 09/12/2025 0800 by Nancy Hale RN Activity Management: activity encouraged Taken 09/12/2025 0535 by Oksana Santos RN Pressure Reduction Techniques: frequent weight shift encouraged Problem: Diarrhea Goal: Effective Diarrhea Management 09/12/20251710 by Nancy Hale RN Outcome: Ongoing, Progressing 09/12/20251624 by Nancy Hale RN Outcome: Ongoing, Progressing Intervention: Manage Diarrhea Flowsheets (Taken 09/12/2025 0535 by Oksana Santos RN) Perineal Care: protective cream applied Fluid/Electrolyte Management: fluids provided Medication Review/Management: medications reviewed Isolation Precautions: contact * Discharge Summary - Joyce Gunderson MD - 09/12/2025 4:13 PM EST Hospitalization Admit Date/Time: 08/26/2025 12:54 PM Admitting Attending: Evi Reeves Discharge Date: 09/12/25 Discharge Attending Physician: Joyce Gunderson MD PCP name and Address: Darius Ken MD [address] [facility] / [place] [address] Referring provider name and address: Anand Ritchie MD [address] [place] [address] Chief Concern, Brief History of Present Illness, and Hospital Course Draft Hospital Course Justin Best is a 69-year-old male with a known medical history of Poorly differentiated GEjunction adenocarcinoma, hypertension, and hyperlipidemia, Recently diagnosed AF (On Eliquis), presenting with fever, worsening epigastric pain, and poor oral intake following recent chemotherapy. #Clostridium difficile infection/diarrhea in the setting of neutropenia: Patient is admitted to hospital medicine for Fever in Immunocompromised state and neutropenia. C. Diff toxin and DNA positive. Completed course of fidaxomicin 200 mg PO BID for 29 doses, last dose 09/07/25. ID recs appreciated, started on PO vancomycin 09/07/25. Plan for 14 days, end date 09/20/2025, has f/u with ID on 09/20. # Gross hematuria--likely related to trauma from Bernstein insertion, large prostate, holding Eliquis, started on ceftriaxone based on preliminary UA but no growth from sample and hence stopped on 09/09.Continue irrigation, Bernstein catheter, urology recommendations appreciated, they agree with holding off on trial of void since Bernstein has been placed thrice already, suggested TOV 1 week after last Bernstein placement, can be done at home or urology clinic although patient preferring to do it at urology clinic. Hemoglobin monitoring, status post 1 PRBC. We will resume Eliquis since urine clear at the time of discharge. If he gets discharged he has been advised to hold Eliquis if he has blood in Bernstein.He has a scheduled follow-up with Cardiology on 09/21/2025. Urology appointment will need to be setup once he gets discharged. He has been advised to see PCP in 1 week. #Adenocarcinoma of GE junction & Worsening Cancer Related Pain & Inability to tolerate PO: Patient follows up with [facility] team. Patient is unable to tolerate PO diet (even liquids). Alsohis epigastric pain is worsening and uncontrolled. Epigastric tenderness +. 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 Surgery planningunderway- 6-12wks from now Opioids PRN #Atrial Fibrillation: Resuming Eliquis, heart rate well controlled, not on any rate-controlling medication, follow up with PCP/urology. Advised to hold Eliquis if begins to have blood in Bernstein again. Disposition: pt ot rec home w assist and walker. Getting wheelchair for discharge to help with appointments. Surgeries and Procedures none Medication List .. Vancomycin HCl 50 MG/ML oral solution Take 2.5 mL by mouth 4 times a day for 31 doses. . acetaminophen 500 MG tablet Commonly known as: Tylenol Take 1 tablet by mouth every 6 hours as needed for pain or fever. alfuzosin 10 MG 24 hr tablet Commonly known as: Uroxatral Take 1 tablet by mouth daily. apixaban 5 MG tablet Commonly known as: Eliquis Take 1 tablet by mouth 2 times a day. diphenhydrAMINE 25 MG tablet Commonly known as: Benadryl Take 1 tablet by mouth at night as needed for itching. famotidine 20 MG tablet Commonly known as: Pepcid Take 1 tablet by mouth daily. guaiFENesin 100 MG/5ML solution Commonly known as: Robitussin Take 10 mL by mouth every 4 hours as needed for cough. loperamide 2 MG tablet Commonly known as: Imodium A-D Take 1 tablet by mouth every 2 hours as needed for diarrhea. MAX 8 tablets daily oxyCODONE-acetaminophen 5-325 MG tablet Commonly known as: Percocet Take 1 tablet by mouth every 6 hours as needed for severe pain. Ask about: Should I take this medication? pantoprazole 40 MG EC tablet Commonly known as: Protonix Take 1 tablet by mouth daily. Do not crush, chew, or split. rosuvastatin 10 MG tablet Commonly known as: Crestor Take 1 tablet by mouth daily. Where to Get Your Medications These medications were sent to [facility] - [place], [place] - [address] [facility] [id number] Vancomycin HCl 50 MG/ML oral solution Discharge Diagnosis Medical Problems Active and Resolved Hospital Problems Hospital * (Principal) Sepsis (CMS/HCC) Neutropenic fever (CMS/HCC) Post Discharge Instructions F/u with ID on 09/20/[address] 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 KOREY Ramos 09/13/2025 1:30 PM [facility]/13/[facility] 2:30 PM [facility] P[facility] 2 [id number] 09/20/2025 1:00 PM Day Post MD ID[facility]CC[facility] [place] 09/21/2025 8:45 AM Juarez Recinos MD [facility] 09/22/2025 8:30 AM CH PAVA US 2 USCHA [facility] Pav A 09/28/2025 8:00 AM CH WHT PET INJ [facility] 09/28/2025 9:00 AM [facility] 09/28/2025 10:15 AM Kim [facility] 01/13/2026 12:00 PM Eros Mejia MD [facility] [place] Test Results Pending At Discharge None Pertinent Physical Exam At Time of Discharge Physical Exam Constitutional: Appearance: Normal appearance. HENT: Mouth/Throat: Mouth: Mucous membranes are moist. Eyes: Pupils: Pupils are equal, round, and reactive to light. Cardiovascular: Rate and Rhythm: Normal rate. Pulmonary: Effort: Pulmonary effort is normal. Breath sounds: Normal breath sounds. Abdominal: General: Abdomen is flat. Palpations: Abdomen is soft. Musculoskeletal: Right lower leg: Edema present. Left lower leg: Edema present. Neurological: Mental Status: He is alert and oriented to person, place, and time. Discharge Disposition/Condition Disposition: Home Condition: Stable (s/sx potential problems absent or manageable) I spent >30 minutes of patient care and instruction time in preparation for this discharge. * Marcia Wright RN - 09/12/2025 2:47 PM EST Images from the original note were not included. [id number] Apixaban IMPORTANT WARNING: If you have atrial [...] doctor or pharmacist will give you the admissions gate attendant's patient information sheet (Medication Guide) when you begin treatment with apixaban and each time you refill your prescription. Read the information carefully and ask your doctor or pharmacist if you have any questions. You can also visit the Food and Drug Administration (FDA) website (https://www.fda.gov/Drugs/DrugSafety/fje236613.htm) or the admissions gate attendant's website to obtain the Medication Guide. Talk [...] or herbal products may interact with apixaban: Davon's wort; aspirin; NSAIDs (such as ibuprofen [Advil??, [...] be awakened, immediately call emergency services at 613. Symptoms of overdose may include the following: [...] of all of the prescription and nonprescription (bmxy-yit-bgdyity) medicines, vitamins, minerals, and dietary supplements you [...] or pharmacist about specific clinical use. The [employer] represents that the information provided hereunder was formulated with a reasonable standard of care, and in conformity with professional standards in the field. The [employer] makes no representations or warranties, express or implied, including, but not limited to, any implied warranty of merchantability and/or fitness for a particular purpose, with respect to such information and specifically disclaims all such warranties. Users are advised that decisions regarding drug therapy are complex medical decisions requiring the independent, informed decision of an appropriate health healthcare interpreter, and the information is provided for informational purposes only. The entire monograph for a drug should be reviewed for a thorough understanding of the drug's actions, uses and side effects. The [employer] does not endorse or recommend the use of any drug.The information is not a substitute for medical care. AHFS?? Patient Medication Information?. ?? Copyright, 2023. The [employer]??, [address], [address], [place], [place]. All Rights Reserved. Duplication for commercial use must be authorized by [facility]. Selected Revisions: December 25, 2024. AHFS?? Patient Medication Information?. ?? Copyright, 2024 * [facility] - Marcia Reynolds RN - 09/12/2025 2:44 PM EST Images from the original note were not included. 1078 Hydrocodone + Acetaminophen Oral, Immediate Release Brand Names: Hycet, Lorcet, Lorcet HD, Lorcet Plus, Lortab, Fairfax, Verdrocet, Vicodin, Vicodin ES, Vicodin HP, Xodol What is this medicine? Hydrocodone (ko-niou-CQZ-done) with acetaminophen (tc-ree-ldk-MIN-uh-fun) is an opioid pain reliever combined with an eply-kwp-ccqetia pain reliever. It is used to treat moderate to severe pain. What should I tell my health care provider before I take this medicine? They need to know if you have any of these conditions: ? Cedrick's disease ? Brain tumor or head injury ? Personal or family history of drug abuse or addiction ? Heart disease ? Frequent alcohol use ? Kidney disease ? Liver disease ? Lung disease, asthma, or breathing problems ? Depression, anxiety, or other psychiatric disease ? Allergy or unusual reaction to hydrocodone, acetaminophen or other pain relievers ? , trying to get , or How should I use this medicine? ? Take this medicine as prescribed by your doctor, and follow the directions on the prescription label. ? Do not take this medicine more often than directed. ? This medicine should be taken with a full glass of water. ? If it upsets your stomach, you may take it with food. You do not have to take this medicine with food. ? Do not crush, cut, chew, lick, wet, soak, or otherwise manipulate a tablet before taking. ? Do not share this medicine with others. This medicine is only for you. ? The pharmacy will give you a special medicine guide each time you picking tech this medicine. ? Overdosage: Taking too much of this medicine can be deadly. Your doctor may prescribe another medicine with this medicine to treat an accidental overdose. If you think you have taken too much of this medicine, call 911 immediately. What if I miss a dose? If you miss a dose, you may take it as soon as you remember. If it is almost time for your next dose, take only that dose. Do not take double or extra doses. What may interact with this medicine? ? Alcohol ? Medicines for sleep, depression, anxiety, or psychiatric diseases ? Seizure medicines like gabapentin, pregabalin, phenytoin, or phenobarbital ? Other pain medicines like tramadol, hydrocodone, fentanyl, or morphine ? Muscle relaxers ? Certain nausea medicines like chlorpromazine or promethazine ? Cannabinoids like droperidol ? Certain antibiotics like erythromycin, clarithromycin, rifampin, ritonavir, voriconazole, or ketoconazole ? Allergy medicines like diphenhydramine This list may not describe all possible interactions. Give your health care provider a list of all the medicines, herbs, non-prescription drugs, or dietary supplements you use. Also tell them if you smoke, drink alcohol, or use illegal drugs. Some items may interact with your medicine. What should I watch for while using this medicine? ? Before you start taking this medicine, talk with your doctor about how long you should be on thismedicine. You should also talk to your doctor about other things you can do to treat pain, including other medicines or non-drug treatments like meditation or acupuncture. While taking this medicine,tell your doctor if your pain does not go away or gets worse or if you have a new or different typeof pain. ? It is possible you could become dependent on this medicine. The risk of dependence increases the longer you are on the medicine. Dependence is not addiction; however, if you have a personal or family history of addiction, you are at higher risk for becoming addicted to this medicine. Talk to yourdoctor if you are worried about dependence or addiction. ? If you take this medicine for a long time and suddenly stop taking this medicine, you may withdraw from this medicine. Withdrawal from this medicine may cause sweating, pain, diarrhea, anxiety, tremor, and other symptoms. Stopping the medicine slowly can reduce withdrawal symptoms. ? This medicine may cause dizziness or drowsiness, especially when you change doses or first start the medicine. Do not drive, use machinery, or do anything dangerous until you know how your body reacts to this medicine. ? This medicine causes constipation. Unless your doctor tells you not to, you should take a stool softener while on this medicine. Tell your doctor if you have not had a bowel movement in 3 or more days while on this medicine. ? This medicine can also cause dry mouth. Drinking water, chewing gum, or sucking on hard candy canhelp. It is important to keep regular dentist appointments. ? Do not take other medicines that contain acetaminophen while you are taking this medicine. Too much acetaminophen can cause liver damage, which may be deadly. What side effects may I notice from receiving this medicine? Side effects that you should report to your doctor or health healthcare interpreter as soon as possible: ? allergic reactions like skin rash, itching or hives, swelling of the face, lips, or tongue ? breathing problems ? confusion ? craving for the medicine or withdrawal symptoms with a missed dose ? feeling faint or lightheaded, falls ? trouble passing urine or change in the amount of urine ? unusually weak or tired Side effects that usually do not require medical attention (report to your doctor or health healthcare interpreter if they continue or are bothersome): ? constipation ? dry mouth ? itching ? nausea, vomiting ? upset stomach This list may not describe all possible side effects. Call your doctor for medical advice about side effects. You may report side effects to FDA at 1-213-KOU-9075. Where should I keep my medicine? This medicine should be kept in a locked cabinet away from children and protected from theft. This medicine can be abused. Do not share this medicine with anyone. Selling or giving away this medicineis against the law. Store at room temperature (60-80??F) in a dry place that is protected from light. Do not save unused medicine that is no longer needed. Unused medicine should be taken to a proper disposal location. To find a disposal location, visit [facility]/[place]. If you cannot take unused medicine to a proper location, you can mix the medicine with coffee grounds or aishwarya litter and dispose of in the normal trash. Your doctor may also give you a special disposal pouch for this medicine. You can also flush the medicine down the toilet. * Astr[facility] On[facility] - Marcia Reynolds RN - 09/12/2025 2:44 PM EST Images from the original note were not included. [id number] Finasteride WHY is this medicine prescribed? Finasteride (Proscar) is used alone or in combination with another medication (doxazosin [Cardura])to treat benign prostatic hypertrophy (BPH, enlargement of the prostate gland). Finasteride is usedto treat symptoms of BPH such as frequent and difficult urination and may reduce the chance of acute urinary retention (sudden inability to urinate). It also may decrease the chance that prostate surgery will be needed. Finasteride (Propecia) is also used to treat male pattern hair loss (gradual thinning of the hair on the scalp, leading to a receding hairline or balding on the top of the head inmen.) Finasteride (Propecia) has not been shown to treat thinning hair at the temples and is not used to treat hair loss in women or children. Finasteride is in a class of medications called 5-alpha reductase inhibitors. Finasteride treats BPH by blocking the body's production of a male hormone that causes the prostate to enlarge. Finasteride treats male pattern hair loss by blocking the body's pr oduction of a male hormone in the scalp that stops hair growth. HOW should this medicine be used? Finasteride comes as a tablet to take by mouth. It is usually taken once a day with or without food. Take finasteride at around the same time every day. Follow the directions on your prescription label carefully, and ask your doctor or pharmacist to explain any part you do not understand. Take finasteride exactly as directed. Do not take more or less of it or take it more often than prescribed byyour doctor. If you are taking finasteride to treat BPH, you should know that finasteride may control your condition, but will not cure it. It may take at least 6 months before your symptoms improve. Continue to take finasteride even if you feel well. Do not stop taking finasteride without talking to your doctor. If you are taking finasteride to treat male pattern hair loss, it may take at least 3 months beforeyou see any improvement because hair loss and growth happen slowly over time. However, you should expect to see improvement during the first 12 months of your treatment. If you have taken finasteridefor 12 months and have not noticed any improvement, further treatment probably will not help. Talk to your doctor about whether you should continue your treatment. Finasteride will only slow hair loss while you are taking the medication. Continue to take finasteride even if you have already noticed an improvement. Do not stop taking finasteride without talking to your doctor. You will probably lose any hair that grew back while you were taking finasteride during the first 12 months after you stop taking the medication.. Ask your pharmacist or doctor for a copy of the admissions gate attendant's information for the patient. Are there OTHER USES for this medicine? This medication may be prescribed for other uses; ask your doctor or pharmacist for more information. What SPECIAL PRECAUTIONS should I follow? Before taking finasteride, ? tell your doctor and pharmacist if you are allergic to finasteride, any other medications, or anyof the ingredients in finasteride tablets. Ask your pharmacist or check the patient information fora list of the ingredients. ? tell your doctor and pharmacist what prescription and nonprescription medications, vitamins, nutritional supplements, and herbal products you are taking or plan to take. Your doctor may need to change the doses of your medications or monitor you carefully for side effects. ? tell your doctor if you have or have ever had liver disease or prostate cancer. ? you should know that finasteride is only for use in men. Women, especially those who are or may become should not touch broken or crushed finasteride tablets. Touching broken or crushed finasteride tablets may harm the fetus. If a woman who is or who could become touches broken or crushed finasteride tablets, she should wash the area with soap and water immediately and call her doctor. ? you should know that finasteride may decrease fertility in men; decreased sexual desire, ejaculation problems, and inability to have or maintain an erection may occur during and after your treatment is stopped. Talk to your doctor about the risks of taking finasteride. What should I do IF I FORGET to take a dose? Skip the missed dose and continue your regular dosing schedule. Do not take a double dose to make up for a missed one. What SIDE EFFECTS can this medicine cause? Some side effects can be serious. If you experience any of these symptoms, call your doctor immediately: ? changes in the breasts such as increased size, lumps, pain, or nipple discharge ? rash ? itching ? hives ? swelling of the lips and face ? difficulty breathing or swallowing Finasteride may cause other side effects. Call your doctor if you have any unusual problems while taking this medication. Taking finasteride may increase the risk that you will develop high-grade prostate cancer (a type of prostate cancer that spreads and grows more quickly than other types of prostate cancer) or breastcancer. Talk to your doctor about the risks of taking finasteride. If you experience a serious side effect, [...] and out of their sight and reach. https://www.[employer].org Dispose of unneeded medications in a way [...] your doctor and the laboratory. Your doctor will order certain lab teststo check your body's response to finasteride. Before having any laboratory test, tell your doctor and the laboratory personnel that you are taking finasteride. Do not let anyone else take your medication. Ask your pharmacist any questions you have about refilling your prescription. Keep a written list of all of the prescription and nonprescription ([id number]) medicines, vitamins, minerals, and dietary supplements you are taking. Bring this list with you each time you visit a doctor or if you are admitted to the hospital. You should carry the list with you in case of dwight rgencies. Brand Name(s): ? Propecia?? ? Proscar?? ? Entadfi?? (as a combination product containing Finasteride, Tadalafil) also available generically This report on medications is for your information only, and is not considered individual patient advice. Because of the changing nature of drug information, please consult your physician or pharmacist about specific clinical use. The [employer] represents that the information provided hereunder was formulated with a reasonable standard of care, and in conformity with professional standards in the field. The [employer] makes no representations or warranties, express or implied, including, but not limited to, any implied warranty of merchantability and/or fitness for a particular purpose, with respect to such information and specifically disclaims all such warranties. Users are advised that decisions regarding drug therapy are complex medical decisions requiring the independent, informed decision of an appropriate health healthcare interpreter, and the information is provided for informational purposes only. The entire monograph for a drug should be reviewed for a thorough understanding of the drug's actions, uses and side effects. The [employer] does not endorse or recommend the use of any drug.The information is not a substitute for medical care. [facility]?? Patient Medication Information?. ?? Copyright, 2023. [employer]??, [address], [address], [place], [place]. All Rights Reserved. Duplication for commercial use must be authorized by [facility]. Selected Revisions: April 24, 2022. [facility]FS?? Patient Medication Information?. ?? Copyright, 2024 * Astrid On[facility] - Marcia Reynolds RN - 09/12/2025 12:37 PM EST Images from the original note were not included. [id number] Clostridium Difficile (C. Diff) Infection C. diff (Clostridium difficile) bacteria can be very harmful. They affect the intestinal tract. They can cause symptoms ranging from mild diarrhea to severe inflammation of the large intestine (colon). C. diff infection may also be called Clostridioides difficile infection. It's most common during the days and weeks after treatment with antibiotics. Anyone can get infected. But the risk is higherfor people in hospitals and for people living in nursing homes or long- term care facilities. This is because antibiotic use is common there. Germs also spread easily in these places. What causes C. diff infection? The stomach and intestines have hundreds of kinds of bacteria. Many of these bacteria actually helpkeep harmful bacteria, such as C. diff, from causing problems. Small amounts of C. diff are normal in the intestine and don?t cause problems. When you take an antibiotic, the normal balance of good and bad bacteria may be affected. There may be too few of the good bacteria. This may allow the harmful bacteria, such as C diff, to grow. In hospitals and nursing homes, C. diff may be spread from an infected person to others. This can happen when staff or visitors touch infected people or objects (such as bed rails, stethoscopes, or bedpans) and then touch other people or surfaces. What are the symptoms of C. diff infection? People with a mild C. diff infection often have these symptoms: ? Watery diarrhea (3 or more times a day for several days) ? Stomach pain, soreness, and cramping People with a severe C. diff infection may have symptoms that include: ? Severe stomach pain or soreness ? Frequent watery diarrhea (up to 15 times a day) ? Belly swelling ? Upset stomach (nausea) and vomiting ? Loss of appetite ? Blood or pus in their stool ? Fever Sometimes people carry the C. diff germs but do not get sick. This is called colonization. Colonization is more common than C. diff infection and does not need treatment. People who are colonized have no symptoms. But they can still pass the infection to others. How is C. diff infection diagnosed? To confirm the infection, a stool sample is taken. It's tested for the bacteria or the toxins made by the bacteria. How is C. diff infection treated? In many cases, you will be given an antibiotic or other medicine or therapy directed at the C. diffinfection. Your healthcare provider might advise that you stop taking or change the antibiotics you've been prescribed. Talk with your provider before stopping or starting any medicines. ? Fluids are often given by IV (intravenously) through a vein. This helps replace fluids lost through diarrhea. ? In rare cases, you may need surgery if treatment doesn?t cure severe symptoms. To reduce symptoms: ? Drink plenty of fluids to replace water lost through diarrhea. Talk with your provider or nurse about which fluids are best. ? Follow your provider?s instructions for when and what to eat. ? Unless your provider tells you to do so, don't take medicines for diarrhea. ? Tell your provider if symptoms return. Even after treatment, C. diff may come back. Your provider may give you an additional treatment if your symptoms come back. Or if you're not able to clear the C. diff infection with a standard course of treatment. This could include: ? A longer, decreasing course (called a taper) of treatment with the antibiotic vancomycin and metronidazole. ? A procedure (fecal transplant) in which normal fecal material is put into your intestines. This is done to give you the good bacteria again and stop the C diff infection from coming back. ? A medicine called bezlotoxumab. In some cases, it can help prevent your symptoms from returning. What are possible complications of C. diff infection? Complications include: ? Fluid loss (dehydration) ? Electrolyte imbalances ? Low protein in the blood ? Severe widening (dilation) and inflammation of the large intestine (toxic megacolon) ? A hole (perforation) in the bowel (often caused by toxic megacolon) ? Low blood pressure ? Kidney failure ? Inflammation or infection all over the body ? How is C. diff prevented? Hospitals and nursing homes take these steps to help prevent C. diff infections: ? Limiting use of antibiotics. Giving antibiotics only when needed can help reduce C. diff infections. ? Handwashing. Hospital staff should wash their hands before and after treating each person. They should also wash their hands after touching any surface in someone's room. Washing hands with soap and clean, running water for at least 20 seconds works better than alcohol-based hand segment block layer for C. diff. ? Protective clothing. Healthcare workers should wear gloves and a gown when entering the room of someone with C. diff infection. They should remove these items before leaving and then wash their hands. ? Private rooms. People with C. diff should be in private rooms. This is to prevent the spread of infection. ? Thorough cleaning. Equipment and rooms should be cleaned and disinfected every day and deep-cleaned between each new person staying there. ? Education. Everyone should be shown the best ways to prevent infection. You can do the following to help prevent C. diff: ? Take antibiotics only when you really need them. Antibiotics don?t help treat illnesses caused byviruses. This includes colds and the flu. Don?t ask for antibiotics from your healthcare provider if they say they won?t work. ? When you're given antibiotics, take them as directed. Don?t take more or less than the dosage prescribed. Unless otherwise instructed, finish the entire prescription even if you feel better. ? Wash your hands carefully. Do this after using the bathroom and before eating. Use plenty of soapand clean, running water. And wash for at least 20 seconds. Alcohol-based hand segment block layer may not work against C. diff germs. ? Teach children correct handwashing. Show them good handwashing methods in all situations. In a hospital or care facility When visiting someone who has C. diff infection: ? Wash your hands well. Wash your hands before and after visiting the person. Use soap and water. Alcohol-based hand segment block layer may not work against C. diff. They're not advised after contact with someone with C diff. ? If the staff asks you to, wear gloves. Take any other steps you're asked to follow to help prevent infection. Caring for someone with C. diff infection Take these steps when caring for someone who has C. diff infection: ? If instructed, wear gloves when caring for the person. Throw the gloves away after each use. Thenwash your hands well. ? Wash the person?s clothes, bed linens, and towels separately. Use hot water. Use both detergent and liquid bleach. ? Disinfect surfaces in the person?s room. This includes the phone, light switches, and remote controls. Practice good handwashing ? Use clean, running water and plenty of soap. Rub your hands together well. ? Clean your whole hand. Wash under nails, between fingers, and up your wrists. ? Wash for at least 15 to 20 seconds. ? Rinse. Let the water run down your fingers, not up your wrists. ? Dry your hands well with disposable paper towels. Then use a paper towel to turn off the faucet and open the door. Last Reviewed Date: 2024 00:00:00 ?? [id number] [employer]. All rights reserved. This information is not intended as a substitute for professional medical care. Always follow your healthcare professional's instructions. * [facility] Marcia Reynolds RN - 09/12/2025 12:07 PM EST Images from the original note were not included. [id number] Discharge Instructions: Caring for Your Leg Bag You are going home with a urinary catheter and collection device (drainage bag) in place. One type of collection device is called a leg bag. This is a smaller drainage bag that you can wear on your leg to collect urine during the day. The bag can fit under your clothing. You can move around with greater ease when using a leg bag instead of a larger collection bag. You were shown how to care for your catheter in the hospital. The information below will help you remember those steps when you are at home. Home care ? Wash your hands thoroughly before and after you care for your catheter or collection device. ? Gather your supplies: o Alcohol wipes o Soap and water o Towel and washcloth o Leg strap and leg bag ? Use soap and water to wash the area where your catheter enters your body. Rinse well. ? Secure the bag rios to your leg: o Put the leg band high on your thigh with the product label pointing away from your leg. o Stretch the leg band in place and fasten. o Place the catheter tubing over the bag and secure it. You may secure it with a Velcro tab or other method, depending on the product you use. Be sure to leave enough loop in the catheter above the leg band so you won't pull on the tube. o Every 4 to 6 hours, reposition the band. This will prevent pressure from the elastic on your leg.You can do this by changing the bag to the other leg or by raising or lowering the leg band. o Wash the band as often as needed. You can hand wash and dry the leg band. ? Place the bag in the bag rios. ? Clean the urine bag end of the catheter and your catheter port with an alcohol wipe. ? Place a towel under the bag and port to keep urine from dripping onto your leg. ? Before connecting the outlet valve at the bottom of the bag to the catheter, make sure that it isfirmly closed. Flip the valve up toward the bag. It needs to snap firmly in place. Don't tug on thetubing. Be gentle. ? Attach the urine bag to the end of the catheter. Insert the connector snugly into the catheter port. You can prevent dribbling urine by bending the catheter tubing just below the tip and holding itwhile you disconnect it from the catheter. Be careful to keep the tip clean while connecting the leg bag tubing to the catheter. This keeps germs from getting into the system. ? Drain the bag when it's full. To drain the bag, flip the clamp downward. Direct the flexible outlet tube to control the flow of urine. You don?t have to disconnect the leg bag from the catheter to empty it. Raise your leg up to the edge of the toilet to reach the leg bag. Then you can empty the bag directly into the toilet. This way, you won?t need to bend over, which may be uncomfortable. ? Keep the leg bag clean. Your healthcare provider may advise that you use a certain solution to clean the bag. ? Ask your healthcare provider if and how often you should clean your bag and what solution you should use ?to reduce odor and keep the bag free of germs. ? Shake the solution a bit and allow it to remain in the bag for 30 minutes. ? Drain the solution and rinse the bag with cold tap water. ? Hang the bag to drain and air dry. ? Remember to keep the drainage bag below the level of your bladder for correct drainage. Follow-up Make a follow-up appointment as directed by your healthcare provider. When to call your healthcare provider Call your healthcare provider or get medical care right away if you have any of the following: ? Redness, swelling, or warmth around the catheter entry site ? Pus draining from your catheter entry site or into the catheter tubing and bag ? Blood, clots, or floating debris in the urine ? Nausea and vomiting ? Shaking chills ? Fever above 100.4??F ( 38??C), or as directed by your healthcare provider ? Pain ? Catheter that falls out or is dislodged Last Reviewed Date: 2024 00:00:00 ?? [id number] [employer]. All rights reserved. This information is not intended as a substitute for professional medical care. Always follow your healthcare professional's instructions. * [facility] - Marcia Reynolds RN - 09/12/2025 12:07 PM EST Images from the original note were not included. [id number] Bernstein Catheter Care A Bernstein catheter, also called an indwelling urinary catheter, is a flexible plastic or rubber tube that is placed through the urethra and into the bladder. The urethra is the opening where urine comes out. The catheter helps drain urine from the bladder. There is a small balloon on the end of the tube that is inflated after the catheter is put in place. This keeps the catheter from sliding out ofthe bladder. A Bernstein catheter is used when you are unable to pass urine (urinary retention). It's also used whenthere is loss of bladder control (incontinence). It's also used after bladder or prostate surgery. Home care ? Take all the prescribed medicines including antibiotics as advised by your health care provider. Do not stop taking the medicines even if you feel better before the prescribed duration is over. ? Wash your hands well with soap and water before and after handling a Bernstein catheter and collection bag. ? It's important to keep bacteria from getting into the collection bag. Don't disconnect the catheter from the collection bag. ? Use a leg band to secure the drainage tube, so it doesn't pull on the catheter. ? Don't try to pull or remove your catheter. This will injure your urethra. It must be removed by your provider or nurse. ? Drain the collection bag when it becomes full using the drain spout at the bottom of the bag. Follow-up care Follow up with your health care provider, or as advised. This is for repeat urine testing and for catheter removal or replacement. When to get medical advice Call 911 for any dizziness or fainting. Contact your health care provider right away if: ? You have a fever of 100.4??F (38??C) or higher, or as directed by your provider. ? You have bladder pain or fullness. ? You have abdominal swelling, nausea or vomiting, or back pain. ? There is blood or urine leakage around the catheter. ? Bloody urine is coming from the catheter (if a new symptom). ? The catheter falls out. ? The catheter stops draining for 6 hours. ? You are feeling weak. Last Reviewed Date: 2024 00:00:00 ?? [id number] [employer]. All rights reserved. This information is not intended as a substitute for professional medical care. Always follow your healthcare professional's instructions. * [facility] Marcia Reynolds RN - 09/12/2025 12:07 PM EST Images from the original note were not included. [id number] Discharge Instructions: Caring for Your Indwelling Urinary Catheter You have been discharged with an indwelling urinary catheter. It's also called a Bernstein catheter. A catheter is a thin, flexible tube. An indwelling urinary catheter has two parts. The first part is atube that drains urine from your bladder. The second part is a bag or other device that collects the urine. The most important thing to remember is that you want to prevent infection. Always wash your hands before handling your catheter bag or tubing. Draining the bedside bag ? Wash your hands with soap and clean, running water. Or use an alcohol-based hand wastewater design engineer that contains at least 60% alcohol. ? Hold the drainage tube over a toilet or measuring container. ? Unclamp the tube, and let the bag drain. ? Don?t touch the tip of the drainage tube or let it touch the toilet or container. ? Don't rinse the bag or drainage tube. Cleaning the drainage tube ? When the bag is empty, clean the tip of the drainage tube with an alcohol wipe. ? Clamp the tube. ? Reinsert the tube into the pocket on the drainage bag. Cleaning your skin and tubing ? Clean the skin near the catheter with soap and water. ? Wash your genital area from front to back. ? Wash the catheter tubing. Always wash the catheter in the direction away from your body. ? You will be told when and how to change your bag and tubing. ? Don?t try to remove the catheter by yourself. ? You may shower with the catheter in place. Emptying a leg bag ? Wash your hands. ? Remove the stopper on the bag. ? Drain the bag into the toilet or a measuring container. Don?t let the tip of the drainage tube touch anything, including your fingers. ? Clean the tip of the drainage tube with alcohol. ? Replace the stopper. Follow-up care Make a follow-up appointment, or as directed by your doctor. When to call your doctor Contact your doctor right away if you have: ? A fever of 100.4??F ( 38??C) or higher, or as directed by your doctor. ? Chills. ? Leakage around the catheter insertion site. ? Increased spasms (uncontrollable twitching) in your legs, belly (abdomen), or bladder. Occasionalmild spasms are normal. ? Burning in the urinary tract, penis, or genital area. ? Nausea and vomiting. ? Aching in the lower back. ? Cloudy or bloody (pink or red) urine, sediment or mucus in the urine, or bad- smelling urine. Last Reviewed Date: 2025 00:00:00 ?? [id number] [employer]. All rights reserved. This information is not intended as a substitute for professional medical care. Always follow your healthcare professional's instructions. * Progress Notes - Gracie Gómez PA - 09/12/2025 11:58 AM EST TRANSPLANT INFECTIOUS DISEASE PROGRESS NOTE 09/12/2025 SUBJECTIVE: No acute events overnight. Remains afebrile. Had one episode of diarrhea overnight and had only hadone other bowel movement this morning before 11am. Feeling better today. He feels that he became hypotensive yesterday because he was on the bedside commode for too long. Eager to go home. REVIEW OF SYSTEMS: 14-point ROS negative except as stated above. MEDICATIONS: Current Medications[1] ALLERGIES: Allergies[2] PHYSICAL EXAM: GEN: well appearing, in NAD SKIN: warm, well-perfused, no rashes or lesions on exposed skin EYES: sclera anicteric, EOMI HENT: NCAT, mmm, neck supple, full ROM CHEST: atraumatic, symmetric chest rise HEART: RRR LUNGS: unlabored on RA GI: non distended, tender in suprapubic area but rest of abdomen is soft and non tender VASC: no cyanosis MSK: no obvious deformity, full ROM NEURO: A&OX3, no focal neurologic deficits PSYCH: appropriate mood and affect VITAL SIGNS: Patient Vitals for the past 24 hrs: BP Temp Temp src Pulse Resp SpO2 Weight 09/12/25 1128 99/61 36.9 ??C (98.4 ??F) -- 82 -- 96 % -- 09/12/25 0849 99/65 36.9 ??C (98.5 ??F) Oral 96 16 95 % -- 09/12/25 0658 -- -- -- -- -- -- 88 kg (194 lb 0.1 oz) 09/12/25 0248 117/77 37 ??C (98.6 ??F) Oral 72 18 92 % -- 09/11/25 2339 103/66 37.1 ??C (98.7 ??F) Oral 75 16 94 % -- 09/11/252021 118/72 37 ??C (98.6 ??F) Oral 78 16 98 % -- 09/11/25 1538 104/65 37 ??C (98.6 ??F) Oral 78 -- 99 % -- 09/11/25 1526 101/66 36.7 ??C (98.1 ??F) Oral 77 17 97 % -- 09/11/25 1315 (!) 78/54 -- -- -- -- -- -- 09/11/25 1314 110/63 -- -- -- -- -- -- 09/11/25 1312 106/70 -- -- -- -- -- -- 09/11/25 1220 104/70 -- -- -- -- -- -- LABS: Labs in last 18 hours CBC WBC 7.80 Hb 7.8 (L) Plt 437 (H) Hct 24.5 (L) ANC 4.97 INR ??, PTT ??, Anti-Xa ?? BMP Na 133 (L) Cl 102 BUN 7 (L) Glu 86 K 3.9 Co2 25 Cr 1.02 Ca 7.8 (L) iCa ?? Mg ??, Phos ?? Lactate ?? LFT AST ?? AlkPhos ?? T Prot ?? ALK ?? Bili ?? Alb ?? D.Bili ?? Patient records reviewed and pertinent findings outlined below. IMAGING/STUDIES: US Renal Complete Result Date: 08/30/2025 Impression: No hydronephrosis XR Chest 2 Views Result Date: 08/26/2025 Impression: No acute focal airspace consolidation. ANTIMICROBIAL REVIEW: Anti-infectives (From admission, onward) Start Dose/Rate Route Frequency Ordered Stop 09/09/25 0000 Vancomycin HCl 50 MG/ML oral solution 125 mg Oral 4 times daily 09/09/25 1410 09/17/25 2359 09/07/25 1230 Vancomycin HCl 50 MG/ML oral solution 125 mg 125 mg Oral 4 times daily 09/07/25 1143 09/20/25 2359 MICROBIOLOGY: 08/26/25 gi panel: negative 08/26/25 ova and parasite: negative 08/26/25 c diff: positive 08/26/25 blood cultures: NGTD ASSESSMENT: Justin Best is a 70 y.o. 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 Initially presented to OSH with these symptoms with CT A/P reporting pancolitis. He was transferred to for further care. On admission, he was febrile and tested positive for c diff. He regained his counts and mounted a response with WBC peak on 08/31/25 at 25k. He was started on fidaxomicin on 08/28 for his first episode of non fulminant c diff.Since that time, he has continued to have watery diarrhea every hour with no improvement. ID consulted for recommendations. Given he has not had any improvement on fidaxomicin, would switch to PO vancomycin. Could also consider scheduled immodium if we see a little improvement. Low concern for fulminant c diff at this time as abdominal exam was benign and WBC/fevers have improved. After switch to PO vancomycin, he had much improvement in the frequency of bowel movements. PROBLEM LIST Non fulminant c difficile infection Colitis Neutropenia, resolved ISRRAEL, resolved GE junction adenocarcinoma on chemotherapy RECOMMENDATIONS: - Continue PO vancomycin 125mg 4 times per day - Recommend 14 days of PO vancomycin given slow improvement, 09/07/25 - 09/20/25 - Follow up scheduled 09/[address] Post Thank you for allowing us to participate in this patient's care. ID will sign off. [facility] Division of Infectious Diseases Available on [employer] Chat History, assessment, and plan discussed with ID attending, Dr. Johan WYMAN attestation - Today, I am treating the patient for c diff which can cause dehydration, ISRRAEL in the short-term future in the absence of appropriate treatment, as described in the note. - Assessment required an independent historian, additional information obtained from chart review, primary team - Independently interpreted test c diff which shows positive, infection. - Discussed management of c diff with primary team and consulting services. - Reviewed notes by primary team and consulting services to determine appropriate plan of care as in the note. - Estimated Creatinine Clearance: 80.8 mL/min (by C-G formula based on SCr of 1.05 mg/dL).reviewed;antibiotics recommended above are dosed accordingly. - The patient is being intensively monitored for antimicrobial toxicity from vancomycin with the following tests: CBC, CMP. - The following complex inpatient infectious disease services were performed today: Complex antimicrobial therapy counseling and treatment [1] Current Facility-Administered Medications Medication Dose Route Frequency Provider Last Rate Last Admin apixaban (Eliquis) tablet 5 mg 5 mg Oral BID Joyce Gunderson MD 5 mg at 09/09/252138 finasteride (Proscar) tablet 5 mg 5 mg Oral Daily Joyce Gunderson MD 5 mg at 09/12/25 08 HYDROcodone-acetaminophen ([place]) 5-325 MG per tablet 5 mg of hydrocodone 5 mg of hydrocodone Oral q6h PRN Jayne Abrams DO 5 mg of hydrocodone at 09/10/252114 lidocaine (Uro-Jet) 2 % gel 1 Application 1 Application Urethral PRN Joyce Gunderson MD 1 Application at 09/08/25 100 loperamide (Imodium A-D) tablet 2 mg 2 mg Oral 4x daily PRN Joyce Gunderson MD 2 mg at 09/12/25 0932 magic mouthwash BLM (FIRST-Mouthwash) suspension 15 mL 15 mL Swish & Spit Before meals & nightly Jadon Rangel MD 15 mL at 09/12/25 08 melatonin tablet 6 mg 6 mg Oral Nightly PRN Jayne Abrams DO 6 mg at 09/11/252037 ondansetron ODT (Zofran-ODT) disintegrating tablet 8 mg 8 mg Oral q6h PRN Jadon Rangel MD 8 mg at 09/10/252114 Or ondansetron (Zofran) injection 8 mg 8 mg Intravenous q6h PRN Jadon Rangel MD 8 mg at 09/02/252014 Or ondansetron (Zofran) 4 MG/5ML solution 8 mg 8 mg Oral q6h PRN Jadon Rangel MD pantoprazole (Protonix) EC tablet 40 mg 40 mg Oral Daily before breakfast Jadon Rangel MD 40 mgat 09/12/25 0633 potassium & sodium phosphates (Phos-NaK) 280-160-250 MG packet 2 packet 2 packet Oral With meals & nightly Sheyla Malagon MD 2 packet at 09/12/25 0858 prochlorperazine (Compazine) tablet 5 mg 5 mg Oral q6h PRN Sheyla Malagon MD Or prochlorperazine (Compazine) suppository 25 mg 25 mg Rectal q12h PRN Sheyla Malagon MD Or prochlorperazine (Compazine) injection 2.5 mg 2.5 mg Intravenous q6h PRN Sheyla Malagon MD 2.5 mg at 09/01/252042 Or prochlorperazine (Compazine) injection 5 mg 5 mg Intramuscular q6h PRN Sheyla Malagon MD prochlorperazine (Compazine) tablet 10 mg 10 mg Oral q6h PRN Evi Reeves MD 10 mg at 08/28/25 0130 rosuvastatin (Crestor) tablet 10 mg 10 mg Oral Daily Evi Reeves MD 10 mg at 09/12/25 0858 sodium bicarbonate tablet 1,300 mg 1,300 mg Oral BID Sheyla Malagon MD 1,300 mg at 09/12/25 0858 sodium chloride ([place]) 0.65 % nasal spray 1 spray 1 spray Each Nostril PRN Sheyla Malagon MD 1 spray at 09/03/25 1349 tamsulosin (Flomax) 24 hr capsule 0.8 mg 0.8 mg Oral Daily Joyce Gunderson MD 0.8 mg at 09/12/25 0858 Vancomycin HCl 50 MG/ML oral solution 125 mg 125 mg Oral 4x daily Joyce Gunderson MD 125 mg at 09/12/25 0857 [2] Allergies Allergen Reactions Oxycodone Hallucinations Penicillins Unknown - Patient states they do not know rxn details Childhood allergy, thinks it was maybe a rash, but isn't sure * Astrid Nolasco - Marcia Reynolds RN - 09/12/2025 11:06 AM EST Images from the original note were not included. [id number] Vancomycin WHY is this medicine prescribed? Vancomycin is used to treat colitis (inflammation of the intestine caused by certain bacteria) thatmay occur after antibiotic treatment. Vancomycin is in a class of medications called glycopeptide antibiotics. It works by killling bacteria in the intestines. Vancomycin will not kill bacteria or treat infections in any other part of the body when taken by mouth. Antibiotics such as vancomycin will not work for colds, flu, or other viral infections. Taking antibiotics when they are not needed increases your risk of getting an infection later that resists antibiotic treatment. HOW should this medicine be used? Vancomycin comes as a capsule and oral solution (liquid) to take by mouth. It is usually taken 3-4 times a day for 7-10 days. To help you remember to take vancomycin, take it around the same times every day. Follow the directions on your prescription label carefully, and ask your doctor or pharmacist to explain any part you do not understand. Take vancomycin exactly as directed. Do not take more or less of it or take it more often than prescribed by your doctor. Shake the oral solution well before each use to mix the medication evenly. You should begin to feel better during the first few days of treatment with vancomycin. If your symptoms do not improve or get worse, call your doctor. Take vancomycin until you finish the prescription, even if you feel better. If you stop taking vancomycin too soon or miss doses, your infection may not be completely cured and bacteria may become resistant to antibiotics. Are there OTHER USES for this medicine? This medication should not be prescribed for other uses; ask your doctor or pharmacist for more information. What SPECIAL PRECAUTIONS should I follow? Before taking vancomycin, ? tell your doctor and pharmacist if you are allergic to vancomycin, any other medications, or any of the ingredients in vancomycin capsules or oral solution. Ask your pharmacist for a list of the ingredients.. ? tell your doctor and pharmacist what prescription and nonprescription medications, vitamins, nutritional supplements, and herbal products you are taking. Your doctor may need to change the doses ofyour medications or monitor you carefully for side effects. ? tell your doctor if you have or have ever had inflammatory bowel disease (swelling of the intestine that can cause painful cramps or diarrhea), including Crohn's disease (a condition in which the body attacks the lining of the digestive tract, causing pain, diarrhea, weight loss, and fever) and ulcerative colitis (a condition which causes swelling and sores in the lining of the colon [large intestine] and rectum); hearing loss; or kidney disease. ? tell your doctor if you are , plan to become , or are breast- feeding. If you become while taking vancomycin, call your doctor. What SPECIAL DIETARY instructions should [...] immediately or get emergency medical treatment: ? sore throat, fever, chills, and other signs of infection ? hives ? rash ? itching ? sores or blisters in mouth, or on tongue or lips ? difficulty breathing or swallowing ? redness of the skin above the waist ? pain and muscle tightness of the chest and back ? ringing in the ears ? decreased urination; swelling of the face, arms, hands, feet, ankles, or lower legs; or unusual tiredness or weakness If you experience a serious side effect, you or your doctor may send a report to the Food and Drug Administration's (FDA) MedWatch Adverse Event Reporting program online (https://www.fda.gov/Safety/MedWatch) or by phone ( ). What should I know about STORAGE and DISPOSAL of this medication? Keep this medication in the container it came in, tightly closed, and out of reach of children. Store vancomycin capsules at room temperature and away from excess heat and moisture (not in the bathroom). Store vancomyin oral solution in the refrigerator. Dispose of unneeded medications in a way [...] not let anyone else take your medication. Your prescription is probably not refillable. If you still have symptoms of infection after you finish the vancomycin, call your doctor. Keep a written list of all of the prescription and nonprescription (itbl-bsi-hqqbhcq) medicines, vitamins, minerals, and dietary supplements you are taking. Bring this list with you each time you visit a doctor or if you are admitted to the hospital. You should carry the list with you in case of dwight rgencies. Brand Name(s): ? Firvanq ? Vancocin?? also available generically This report on medications is for your information only, and is not considered individual patient advice. Because of the changing nature of drug information, please consult your physician or pharmacist about specific clinical use. The [place] [employer] [employer] represents that the information provided hereunder was formulated with a reasonable standard of care, and in conformity with professional standards in the field. The [place] [employer] makes no representations or warranties, express or implied, including, but not limited to, any implied warranty of merchantability and/or fitness for a particular purpose, with respect to such information and specifically disclaims all such warranties. Users are advised that decisions regarding drug therapy are complex medical decisions requiring the independent, informed decision of an appropriate health healthcare interpreter, and the information is provided for informational purposes only. The entire monograph for a drug should be reviewed for a thorough understanding of the drug's actions, uses and side effects. The [place] [employer] does not endorse or recommend the use of any drug.The information is not a substitute for medical care. AHFS?? Patient Medication Information?. ?? Copyright, 2023. The [place]??, [address], [address], [place], [place]. All Rights Reserved. Duplication for commercial use must be authorized by [facility]. Selected Revisions: April 24, 2022. AHFS?? Patient Medication Information?. ?? 2024 * Discharge Instr - Other Orders - Marcia Reynolds RN - 09/12/2025 11:05 AM EST If you need to contact your doctors after hours, please call [phone] and ask for the doctor herlinda for [facility] 11. * Progress Notes - Kristen Toro RN - 09/12/2025 10:51 AM EST Case Management Discharge Note Justin Best 70 y.o. male CSN: [id number] Admission: 08/26/2025 12:54 PM Primary Problem: Sepsis (CMS/HCC) Primary Entry Level Chemist: self Assistance Available at Discharge: Kristen Best (Spouse) Availability of Care Givers (#Hours): 24 hours Family/Entry Level Chemist(s) Willingness Assessed to care for patient at home: Yes Family/Entry Level Chemist(s) Readiness Assessed to care for patient at home: Yes Discharge Facility/Level of Care Needs: Discharge Facility/Level of Care Needs: 1-Home or Self Care Patient/Family Anticipated Services at Transition: Patient/Family Anticipated Services at Transition: durable medical equipment, outpatient care, rehabilitation services DME/Equipment Needed after Discharge: [employer] delivered rolling walker to bedside 09.02.25 per Judson ( liaison with [employer] [phone] ). Judson reports they can't provide outpkt DME wheelchair at this time. Referral sent to [facility] and agreeable to provide, However, patient and Kristen reports they will go thru [facility] in [place] and rent wheelchair. Equipment Needed After Discharge: wheelchair, manual, walker, rolling Readmission Within the Last 30 Days: Medicare Documentation: medicare second notice signed and placed on chart. Follow-up: [facility] [address] [facility] [phone] Discharge Ambulatory referral to NON Occupational Therapy Sep 02, 2025 (Approximate) Discharge Ambulatory referral to NON Physical Therapy Sep 02, 2025 (Approximate) Discharge Ambulatory referral to Urology Sep 17, 2025 (Approximate) With Clinic Visit Sep 13 Manager Skilled Visit Friday 1:15 PM (Arrive by 12:55 PM) Please bring any insurance information and a copayment if required by your insurance company. [facility] Multidisciplinary Oncology Clinic [address] [phone] Office Visit with Aristides Reina MD Friday 1:30 PM (Arrive by 1:10 PM) Please bring any insurance information and a copayment if required by your insurance company. [facility] Multidisciplinary Oncology Clinic [address] [phone] Infusion Friday 2:30 PM Please bring any insurance information and a copayment if required by your insurance company. [facility] Infusion Clinic [address] [phone] Sep 20 Office Visit - ID with Day Post MD Friday 1:00 PM (Arrive by 12:40 PM) Please bring any insurance information and a copayment if required by your insurance company. [facility] [address] [phone] Sep 21 Consult - Cardiology with Juarez Recinos MD Friday 8:45 AM (Arrive by 8:25 AM) [facility] [place] [address], [address] [facility] [address] Arrive at: [facility] Cardiology Registration Sep 22 US GUIDED FINE NEEDLE ASPIRATION Sep 8:30 AM (Arrive by 8:00 AM) [facility] [address] [facility] [phone] Arrive at: [facility], Ground floor check-in Sep 28 PET/CT FDG SKULL BASE TO MID THIGH INJECTION Friday 8:00 AM (Arrive by 7:30 AM) [facility] [address] [facility] [phone] [facility]: [facility] Office Visit with Kim Marcano MD Friday 10:15 AM (Arrive by 9:55 AM) Please bring any insurance information and a copayment if required by your insurance company. [facility] [address] [facility] [phone] Jan 13 2026 Office Visit - Nephrology with Eros Mejia MD FridayJan 13, 2026 12:00 PM (Arrive by 11:40 AM) Please bring any insurance information and a copayment if required by your insurance company. [facility] [address] [place] [id number] Arrive at: [facility] Discharge Transportation: Transportation Anticipated: family or friend will provide Transportation Home at Discharge: Family/Friend will Provide Follow Up Transport: Transportation Needed to Follow up Appoinments: Family/Friend will Provide Additional Comments: per team, medically ready for discharge today. Met with patient and family at bedside and all agreeable to discharge plan. Patient requesting wheelchair. DME justification note and MD order sent to [facility]. Kristen Toro RN * Progress Notes - Joyce Gunderson MD - 09/12/2025 9:55 AM EST DME: Patient has limited mobility which is affecting ability to perform ADLs. The use of a walker or cane alone is not sufficient. Patient is willing to use the wheelchair to complete ADLs in the home. Patient can self propel the wheelchair and has a caregiver to assist as needed. * Progress Notes - Koki Perdue, RELEASE MANAGER, DNP - 09/12/2025 8:55 AM EST Medical Oncology Consult Follow-Up Note 09/12/25 Patient Care Team: Darius Ken MD as PCP - General (Internal Medicine) Subjective: Patient is lying in bed. Feels better today. He had one spell of orthostatic hypotension yesterday. Diarrhea has improved with only on episode overnight. PMH, Surg History, Social History, Family History and current medications reviewed and unchanged from last encounter of 09/08, or updated as indicated. ROS: 14 point review of systems completed and negative unless stated above. Objective: Visit Vitals BP 99/65 Pulse 96 Temp 36.9 ??C (98.5 ??F) Resp 18 ECO General: Lying/resting comfortably in bed, pale and ill appearing; NAD HEENT: NCAT, PERRLA/EOMI, anicteric; no oral lesions Neck: Supple, no JVD Heart: RRR, no MGR Lungs: CTAB; no rales, rhonchi or wheezes; O2 room air Abdomen: Soft, NTND, + BS : Bernstein in place Extremities: No edema Musculoskeletal: No focal tenderness or deformity Skin: No visible rashes or lesions Neuro: Grossly nonfocal; no localizing deficits of strength, sensation, or mentation Psychiatric: Normal mood and thought content Labs: Labs in last 18 hours CBC WBC 7.80 Hb 7.8 (L) Plt 437 (H) Hct 24.5 (L) ANC 4.97 INR ??, PTT ??, Anti-Xa ?? BMP Na 133 (L) Cl 102 BUN 7 (L) Glu 86 K 3.9 Co2 25 Cr 1.02 Ca 7.8 (L) iCa ?? Mg ??, Phos ?? Lactate ?? LFT AST ?? AlkPhos ?? T Prot ?? ALK ?? Bili ?? Alb ?? D.Bili ?? No results found for: UTPCR No results found for: TSH , FREET4 No results found for: CEA , CA199 , AFP Labs personally reviewed Imaging: As noted in HPI if relevant. Assessment/Plan: Justin Best 70 y.o. male with newly diagnosed adenocarcinoma of the gastroesophageal junction who presented to [facility] on 08/26 with fever, and poor PO intake. Medical oncology consulted for plan of care and management of GE junction adenocarcinoma. #Gastroesophageal junction adenocarcinoma. - Oncologist: Dr. Reina in [facility] - Co-managed with Dr. Kim Marcano with thoracic surgery. 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 Pylori negative NGS pending - Patient expressed wishes to stop chemotherapy and pursue immunotherapy treatment; Plan entered for Nivolumab/Ipilimumab - F/U [facility] 09/13, with infusion slot. #Clostridium difficile infection. - Stool Cdiff PCR toxin +; GDH +; toxin +; EIA interpretation c diff likely - Dificid completed 09/07 - po Vanc started 09/08 - diarrhea better - ID following - on Imodium PRN #Atrial fibrillation - Currently in sinus rhythm - Continues on Eliquis - Cardiac patch monitor in place - Outpatient Cardiology appt 09/21/25 #Chemo induced N/V - Post-chemotherapy complications of significant nausea & vomiting. - Continue PRN Zofran and Compazine -currently effective #Non-oliguric ISRRAEL with ATN on CKD3 - Creatinine 4.14 at admission - UA negative - Renal US 08/30: R kidney 10.8cm, L kidney 10.4cm. Normal echogenicity. No hydronephrosis, no calculi. - Nephology consulted - creatinine back to baseline #Anemia of chronic disease - related to cancer and cancer treatment - hgb 7.8; hct 24.5 on 09/12 - Cont to monitor; no active s/s of bleeding - transfuse if hgb <7 or hct <22 #Gross Hematuria, resolved. - Pt had painless hematuria, that was noticed in bernstein collection canister. - Urology consult 09/12/25 Plan: - Urology consulted - Continue PRN Zofran and Compazine -currently effective - Continue po Vanc for c-diff (started 09/08) - Contact Precautions required for c-diff and importance of maintaining hand hygiene to prevent itsspread. - Advised to keep the cardiology appointment as hx of atrial fibrillation - Stage/Grade -pending staging scans - NGS pending - F/U [facility] 09/13 with infusion slot - Plan to start outpatient Ipilimumab & Nivolumab, Medical oncology will continue to follow. Please call with additional questions or concerns. 35 minutes was spent on this encounter; including preparing to see the patient, which involved review/interpretation of diagnostics and reports; obtaining and/or reviewing separately obtained history; performing appropriate physical exam; ordering/scheduling medications, tests or procedures; communicating findings and counseling/educating the patient, family and/or caregiver; documentation in EMR; and care coordination. The selection, dosing and administration of anti-cancer agents and the management of associated toxicities requires complex medical decision making and intensive monitoring for toxicity. Modifications of drug dose and schedule as well as the initiation of supportive care interventions are often necessary because of expected toxicities. This varies individually based on patient tolerability, priortreatments and comorbidities/risk status. Monitoring typically entails labs, imaging and/or other diagnostics, utilizing a healthcare delivery team experienced in the use of anticancer agents and themanagement of associated toxicities in patients with cancer. Attending physician previously developed plan of care, which I discussed with the patient, whom I saw independently. Discussed patient during multidisciplinary rounds with current inpatient medical oncologist. The patient verbalized understanding and agrees with plan. All questions answered to their satisfaction. Encouraged to call should other questions/concerns arise. Koki Perdue APRN, DNP Division of Medical Oncology [address] [place] [address] * Care Plan - Oksana Santos RN - 09/12/2025 5:37 AM EST Problem: Adult Inpatient Plan of Care Goal: Patient-Specific Goal (Individualized) Outcome: Ongoing, Progressing Flowsheets (Taken 09/11/20251999) Patient/Family-Specific Goals (Include Timeframe): patient will remain free from injury throughout the shift Individualized Care Needs: ongoing support Anxieties, Fears or Concerns: not going home Goal: Optimal Comfort and Wellbeing Outcome: Ongoing, Progressing Intervention: Monitor Pain and Promote Comfort Flowsheets (Taken 09/12/2025 0535) Pain Management Interventions: rest pillow support provided care clustered emotional support position adjusted relaxation techniques promoted quiet environment facilitated Intervention: Provide Person-Centered Care Flowsheets (Taken 09/12/2025 0535) Trust Relationship/Rapport: care explained questions encouraged choices provided reassurance provided emotional support provided thoughts/feelings acknowledged empathic listening provided questions answered Problem: Infection Goal: Absence of Infection Signs and Symptoms Outcome: Ongoing, Progressing Intervention: Prevent or Manage Infection Flowsheets (Taken 09/12/2025 0535) Infection Management: aseptic technique maintained Fever Reduction/Comfort Measures: fluid intake increased lightweight bedding lightweight clothing Isolation Precautions: contact Problem: Skin Injury Risk Increased Goal: Skin Health and Integrity Outcome: Ongoing, Progressing Intervention: Optimize Skin Protection Flowsheets (Taken 09/12/2025 0535) Activity Management: activity adjusted per tolerance Pressure Reduction Techniques: frequent weight shift encouraged Pressure Reduction Devices: heel offloading device utilized pressure-redistributing mattress utilized Skin Protection: protective footwear used incontinence pads utilized pectin skin barriers applied Head of Bed (HOB) Positioning: HOB at 20-30 degrees Intervention: Promote and Optimize Oral Intake Flowsheets (Taken 09/12/2025534) Oral Nutrition Promotion: physical activity promoted social interaction promoted rest periods promoted Nutrition Interventions: food preferences provided Problem: Diarrhea Goal: Effective Diarrhea Management Outcome: Ongoing, Progressing Intervention: Manage Diarrhea Flowsheets (Taken 09/12/2025 05) Perineal Care: protective cream applied Fluid/Electrolyte Management: fluids provided Nutrition Interventions: food preferences provided Medication Review/Management: medications reviewed Isolation Precautions: contact * Care Plan - Nancy Hale RN - 09/11/2025 5:53 PM EST Problem: Adult Inpatient Plan of Care Goal: Patient-Specific Goal (Individualized) Outcome: Ongoing, Progressing Flowsheets (Taken 09/11/2025 0800) Patient/Family-Specific Goals (Include Timeframe): pt will verbalize understanding and agreement with plan of care during shift Goal: Optimal Comfort and Wellbeing Outcome: Ongoing, Progressing Intervention: Provide Person-Centered Care Flowsheets (Taken 09/11/20251751) Trust Relationship/Rapport: care explained choices provided emotional support provided empathic listening provided questions answered questions encouraged reassurance provided thoughts/feelings acknowledged Problem: Infection Goal: Absence of Infection Signs and Symptoms Outcome: Ongoing, Progressing Intervention: Prevent or Manage Infection Flowsheets Taken 09/11/20251751 by Nancy Hale RN Isolation Precautions: precautions maintained contact Taken 09/08/20252154 by Dariana Caicedo RN Infection Management: aseptic technique maintained Problem: Skin Injury Risk Increased Goal: Skin Health and Integrity Outcome: Ongoing, Progressing Intervention: Optimize Skin Protection Flowsheets Taken 09/11/20251751 by Nancy Hale RN Activity Management: activity adjusted per tolerance up to bedside commode education provided Pressure Reduction Devices: heel offloading device utilized pressure-redistributing mattress utilized feet on footrest/footstool specialty bed utilized Skin Protection: drying agents applied incontinence pads utilized Taken 09/10/2025 165 by Tatiana Aranda RN Pressure Reduction Techniques: frequent weight shift encouraged Problem: Diarrhea Goal: Effective Diarrhea Management Outcome: Ongoing, Progressing Intervention: Manage Diarrhea Flowsheets Taken 09/11/20251751 by Nancy Hale RN Fluid/Electrolyte Management: fluids provided intravenous fluids adjusted electrolyte supplement adjusted Medication Review/Management: medications reviewed provider consulted Isolation Precautions: precautions maintained contact Taken 09/09/20251738 by Tatiana Aranda RN Nutrition Interventions: food preferences provided Taken 09/08/2025 1024 by Sofía Barrientos Perineal Care: absorbent pad perineum cleansed protective ointment applied * Progress Notes - Day Post MD - 09/11/2025 10:44 AM EST TRANSPLANT INFECTIOUS DISEASE PROGRESS NOTE 09/11/2025 SUBJECTIVE: No acute events overnight. Notes diarrhea frequency is improved over the last 2 days. 2 Bms overnight, and 2 this morning so far. However, with the most recent episode, he became hypotensive and was receiving fluids at the time of interview. REVIEW OF SYSTEMS: 14-point ROS negative except as stated above. MEDICATIONS: Current Medications[1] ALLERGIES: Allergies[2] PHYSICAL EXAM: GEN: well appearing, in NAD SKIN: warm, well-perfused, no rashes or lesions on exposed skin EYES: sclera anicteric, EOMI HENT: NCAT, mmm, neck supple, full ROM CHEST: atraumatic, symmetric chest rise HEART: RRR LUNGS: unlabored on RA GI: non distended, tender in suprapubic area but rest of abdomen is soft and non tender VASC: no cyanosis MSK: no obvious deformity, full ROM NEURO: A&OX3, no focal neurologic deficits PSYCH: appropriate mood and affect VITAL SIGNS: Patient Vitals for the past 24 hrs: BP Temp Temp src Pulse Resp SpO2 09/11/25 1034 97/66 -- -- 80 -- 99 % 09/11/25 1016 (!) 70/54 -- -- -- -- 97 % 09/11/25 1014 (!) 68/50 -- -- -- -- 97 % 09/11/25 1013 (!) 64/55 -- -- (!) 120 -- -- 09/11/25 0812 102/67 36.8 ??C (98.3 ??F) Oral 78 17 95 % 09/11/25 0339 103/66 36.5 ??C (97.7 ??F) -- 66 15 94 % 09/11/25 0020 95/55 36.8 ??C (98.3 ??F) Oral 80 16 95 % 09/10/25 2028 107/70 36.9 ??C (98.4 ??F) Oral 78 15 95 % 09/10/25 1544 125/74 36.8 ??C (98.3 ??F) Oral 81 11 97 % 09/10/25 1118 114/69 36.8 ??C (98.2 ??F) Oral 76 15 98 % LABS: Labs in last 18 hours CBC WBC ?? Hb ?? Plt ?? Hct ?? ANC ?? INR ??, PTT ??, Anti-Xa ?? BMP Na ?? Cl ?? BUN ?? Glu ?? K ?? Co2 ?? Cr ?? Ca ?? iCa ?? Mg ??, Phos ?? Lactate ?? LFT AST ?? AlkPhos ?? T Prot ?? ALK ?? Bili ?? Alb ?? D.Bili ?? Patient records reviewed and pertinent findings outlined below. IMAGING/STUDIES: US Renal Complete Result Date: 08/30/2025 Impression: No hydronephrosis XR Chest 2 Views Result Date: 08/26/2025 Impression: No acute focal airspace consolidation. ANTIMICROBIAL REVIEW: Anti-infectives (From admission, onward) Start Dose/Rate Route Frequency Ordered Stop 09/09/25 0000 Vancomycin HCl 50 MG/ML oral solution 125 mg Oral 4 times daily 09/09/25 1410 09/17/25 2359 09/07/25 1230 Vancomycin HCl 50 MG/ML oral solution 125 mg 125 mg Oral 4 times daily 09/07/25 1143 09/17/25 1359 MICROBIOLOGY: 08/26/25 gi panel: negative 08/26/25 ova and parasite: negative 08/26/25 c diff: positive 08/26/25 blood cultures: NGTD ASSESSMENT: Justin Best is a 70 y.o. 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 Initially presented to OSH with these symptoms with CT A/P reporting pancolitis. He was transferred to for further care. On admission, he was febrile and tested positive for c diff. He regained his counts and mounted a response with WBC peak on 08/31/25 at 25k. He was started on fidaxomicin on 08/28 for his first episode of non fulminant c diff.Since that time, he has continued to have watery diarrhea every hour with no improvement. ID consulted for recommendations. Given he had not had any improvement on fidaxomicin, we switched to PO Vancomycin on 09/07, with interval improvement in diarrhea PROBLEM LIST Non fulminant c difficile infection Colitis Neutropenia, resolved ISRRAEL, resolved GE junction adenocarcinoma on chemotherapy RECOMMENDATIONS: - Continue PO vancomycin 125mg 4 times per day - Given the relatively slow put persistent improvement in diarrhea, would extended duration of therapy to 14 days of PO vancomycin, 09/07/25 - 09/20/25 - Consider scheduled immodium to assist with symptom management - Will schedule outpt TH follow-up on 09/13 if pt is discharged today Thank you for allowing us to participate in this patient's care. ID will follow. Day Post MD [facility] attestation - Today, I am treating the patient for c diff which can cause dehydration, ISRRAEL in the short-term future in the absence of appropriate treatment, as described in the note. - Discussed management of c diff with primary team and consulting services. - Reviewed notes by primary team and consulting services to determine appropriate plan of care as in the note. - Estimated Creatinine Clearance: 86.9 mL/min (by C-G formula based on SCr of 0.97 mg/dL). reviewed; antibiotics recommended above are dosed accordingly. - The patient is being intensively monitored for antimicrobial toxicity from vancomycin with the following tests: CBC, CMP. - The following complex inpatient infectious disease services were performed today: Complex antimicrobial therapy counseling and treatment [1] Current Facility-Administered Medications Medication Dose Route Frequency Provider Last Rate Last Admin [Held by provider] apixaban (Eliquis) tablet 5 mg 5 mg Oral BID Joyce Gunderson MD 5 mg at 09/09/252138 finasteride (Proscar) tablet 5 mg 5 mg Oral Daily Joyce Gunderson MD 5 mg at 09/11/25 0852 HYDROcodone-acetaminophen ([place]) 5-325 MG per tablet 5 mg of hydrocodone 5 mg of hydrocodone Oral q6h PRN Jayne Abrams DO 5 mg of hydrocodone at 09/10/252114 lactated Ringer's bolus 500 mL 500 mL Intravenous Once Joyce Gunderson MD 250 mL/hr at 09/11/25 1018 500 mL at 09/11/25 1018 lidocaine (Uro-Jet) 2 % gel 1 Application 1 Application Urethral PRN Joyce Gunderson MD 1 Application at 09/08/25 1005 magic mouthwash BLM (FIRST-Mouthwash) suspension 15 mL 15 mL Swish & Spit Before meals & nightly Jadon Rangel MD 15 mL at 09/11/25 0850 melatonin tablet 6 mg 6 mg Oral Nightly PRN Jayne Abrams, DO 6 mg at 09/10/252114 ondansetron ODT (Zofran-ODT) disintegrating tablet 8 mg 8 mg Oral q6h PRN Jadon Rangel MD 8 mg at 09/10/252114 Or ondansetron (Zofran) injection 8 mg 8 mg Intravenous q6h PRN Jadon Rangel MD 8 mg at 09/02/252014 Or ondansetron (Zofran) 4 MG/5ML solution 8 mg 8 mg Oral q6h PRN Jadon Rangel MD pantoprazole (Protonix) EC tablet 40 mg 40 mg Oral Daily before breakfast Jadon Rangel MD 40 mgat 09/11/25 0851 potassium & sodium phosphates (Phos-NaK) 280-160-250 MG packet 2 packet 2 packet Oral With meals & nightly Sheyla Malagon MD 2 packet at 09/11/25 0850 prochlorperazine (Compazine) tablet 5 mg 5 mg Oral q6h PRN Sheyla Malagon MD Or prochlorperazine (Compazine) suppository 25 mg 25 mg Rectal q12h PRN Sheyla Malagon MD Or prochlorperazine (Compazine) injection 2.5 mg 2.5 mg Intravenous q6h PRN Sheyla Malagon MD 2.5 mg at 09/01/252042 Or prochlorperazine (Compazine) injection 5 mg 5 mg Intramuscular q6h PRN Sheyla Malagon MD prochlorperazine (Compazine) tablet 10 mg 10 mg Oral q6h PRN Evi Reeves MD 10 mg at 08/28/25 0130 rosuvastatin (Crestor) tablet 10 mg 10 mg Oral Daily Evi Reeves MD 10 mg at 09/11/25 0851 sodium bicarbonate tablet 1,300 mg 1,300 mg Oral BID Sheyla Malagon MD 1,300 mg at 09/11/25 0850 sodium chloride ([place]) 0.65 % nasal spray 1 spray 1 spray Each Nostril PRN Sheyla Malagon MD 1 spray at 09/03/25 1349 tamsulosin (Flomax) 24 hr capsule 0.8 mg 0.8 mg Oral Daily Joyce Gunderson MD 0.8 mg at 09/11/25 0851 Vancomycin HCl 50 MG/ML oral solution 125 mg 125 mg Oral 4x daily Joyce Gunderson MD 125 mg at 09/11/25 0852 [2] Allergies Allergen Reactions Oxycodone Hallucinations Penicillins Unknown - Patient states they do not know rxn details Childhood allergy, thinks it was maybe a rash, but isn't sure * Progress Notes - Joyce Gunderson MD - 09/11/2025 7:40 AM EST Subjective Seen at bedside with his sister and . Patient was doing well this morning, reported having 3-4 bowel movements yesterday, diarrhea improving. Still has some blood-tinged urine in his Bernstein and we had discussed about discharge planning but later in the day developed presyncope, related to orthostatic hypotension. Blood pressure is low at 66 systolic from mid 90s systolic previously. Blood pressure improved to mid 90s systolic without fluid bolus and food bolus was ordered after. Patient's family aware that discharge can not be possible today and we would need to monitor his blood pressureas well as his hemoglobin at least for another 24 hours. Review of Systems Constitutional: Positive for fatigue. Gastrointestinal: Positive for diarrhea. All other systems reviewed and are negative. Objective Vitals Temp: [36.5 ??C (97.7 ??F)-36.9 ??C (98.4 ??F)] 36.5 ??C (97.7 ??F) Heart Rate: [66-81] 66 Resp: [11-16] 15 BP: (95-125)/(55-74) 103/66 Physical Exam Constitutional: Appearance: Normal appearance. HENT: Mouth/Throat: Mouth: Mucous membranes are moist. Eyes: Pupils: Pupils are equal, round, and reactive to light. Cardiovascular: Rate and Rhythm: Normal rate. Pulmonary: Effort: Pulmonary effort is normal. Breath sounds: Normal breath sounds. Abdominal: General: Abdomen is flat. Palpations: Abdomen is soft. Musculoskeletal: Right lower leg: Edema present. Left lower leg: Edema present. Neurological: Mental Status: He is alert and oriented to person, place, and time. Assessment & Plan Sepsis (CMS/HCC) Neutropenic fever (CMS/HCC) Justin Best is a 69-year-old male with a known medical history of Poorly differentiated GEjunction adenocarcinoma, hypertension, and hyperlipidemia, Recently diagnosed AF (On Eliquis), presenting with fever, worsening epigastric pain, and poor oral intake following recent chemotherapy. #Clostridium difficile infection/ diarrhea in the setting of neutropenia: Improving. Completed course of fidaxomicin 200 mg PO BID for 29 doses, last dose 09/07/25. ID recs appreciated, started on PO vancomycin 09/07/25. Plan for extended course, end date 09/20/2025 to complete a 14 day course. # Gross hematuria-likely related to trauma from Bernstein insertion, large prostate, holding Eliquis, started on ceftriaxone based on preliminary UA but no growth from sample and hence stopped on 09/09. Continue irrigation, Bernstein catheter, urology recommendations appreciated, they agree with holding off on trial of void since Bernstein has been placed thrice already, suggested TOV 1 week after last Foleyplacement, can be done at home or urology clinic although patient preferring to do it at urology clinic. Hemoglobin monitoring, status post 1 PRBC. We will resume Eliquis once urine clear. If he getsdischarged he has been advised to hold Eliquis until he sees the urologist/nurse's companion. He has a sc heduled follow-up with Cardiology on 09/21/2025. Urology appointment will need to be set up once hegets discharged. # Presyncope-likely related to orthostatic hypotension, since recovered without any treatment. Fluid bolus, recheck vitals. #Adenocarcinoma of GE junction & Worsening Cancer Related Pain & Inability to tolerate PO: Patient follows up with [facility] team. Patient is unable to tolerate PO diet. Also his epigastricpain is worsening and uncontrolled. Epigastric tenderness +. MSI-H, plan to transition to immunotherapy as outpt, likely ipi-nivo. Surgery planning underway- 6-12wks from now Oxycodone 5 mg x Q6 PRN. #Atrial Fibrillation: Hold Eliquis, heart rate well controlled, not on any rate-controlling medication Telemetry FENGI: Regular diet DVT prophylaxis: Eliquis apixaban 5 mg BID on hold, will hold DVT prophylaxis for now, SCDs GI prophylaxis: Protonix 40 mg by mouth daily before breakfast Code status: Full code Disposition: pt ot rec home w assist and walker; plan to DC home once BP stable Medically Ready for Discharge:Anticipated Tomorrow * Care Plan - Ana Cristina Yo RN - 09/10/2025 10:11 PM EDT Problem: Adult Inpatient Plan of Care Goal: Patient-Specific Goal (Individualized) Outcome: Ongoing, Progressing Flowsheets (Taken 09/10/20251999) Patient/Family-Specific Goals (Include Timeframe): pt will remain free from falls or injury this shift. Individualized Care Needs: safety Anxieties, Fears or Concerns: none expressed Goal: Optimal Comfort and Wellbeing Outcome: Ongoing, Progressing Intervention: Monitor Pain and Promote Comfort Flowsheets (Taken 09/10/20252114) Pain Management Interventions: medication (see MAR) Intervention: Provide Person-Centered Care Flowsheets (Taken 09/08/20252154 by Dariana Caicedo, YAHAIRA) Trust Relationship/Rapport: care explained choices provided emotional support provided questions answered questions encouraged thoughts/feelings acknowledged Problem: Pain Acute Goal: Optimal Pain Control and Function Outcome: Ongoing, Progressing Intervention: Optimize Psychosocial Wellbeing Flowsheets (Taken 09/10/20251651 by Tatiana Aranda RN) Supportive Measures: active listening utilized decision-making supported goal-setting facilitated Diversional Activities: smartphone Spiritual Activities Assistance: affirmation provided Intervention: Develop Pain Management Plan Flowsheets (Taken 09/10/20252114) Pain Management Interventions: medication (see MAR) Intervention: Prevent or Manage Pain Flowsheets Taken 09/10/20251651 by Tatiana Aranda RN Sensory Stimulation Regulation: auditory stimulation minimized Bowel Elimination Promotion: adequate fluid intake promoted Sleep/Rest Enhancement: awakenings minimized Medication Review/Management: medications reviewed Taken 09/01/2025 1151 by Giovanna Washington RN Complementary Therapy: music therapy provided Problem: Nausea and Vomiting Goal: Nausea and Vomiting Relief Outcome: Ongoing, Progressing Intervention: Prevent and Manage Nausea and Vomiting Flowsheets Taken 09/09/2025 1739 by Tatiana Aranda RN Environmental Support: calm environment promoted Taken 09/08/20252154 by Dariana Caicedo, RN Fluid/Electrolyte Management: fluids provided Taken 09/08/2025 1044 by Didi Goodson RN Nausea/Vomiting Interventions: stimuli minimized Oral Care: mouth swabbed Problem: Electrolyte Imbalance Goal: Electrolyte Balance Outcome: Ongoing, Progressing Intervention: Monitor and Manage Electrolyte Imbalance Flowsheets (Taken 09/08/20252154 by Dariana Caicedo RN) Fluid/Electrolyte Management: fluids provided Problem: Infection Goal: Absence of Infection Signs and Symptoms Outcome: Ongoing, Progressing Intervention: Prevent or Manage Infection Flowsheets Taken 09/10/20251999 by Ana Cristina Yo RN Isolation Precautions: precautions maintained protective contact Taken 09/08/20252154 by Dariana Caicedo RN Infection Management: aseptic technique maintained Taken 09/04/20251815 by Willis Tracy RN Fever Reduction/Comfort Measures: lightweight bedding lightweight clothing Problem: Skin Injury Risk Increased Goal: Skin Health and Integrity Outcome: Ongoing, Progressing Intervention: Optimize Skin Protection Flowsheets Taken 09/10/20251999 by Ana Cristina Yo RN Activity Management: activity adjusted per tolerance Head of Bed (HOB) Positioning: HOB at 20-30 degrees Taken 09/10/2025 1652 by Tatiana Aranda RN Pressure Reduction Techniques: frequent weight shift encouraged Taken 09/09/2025 1739 by Tatiana Aranda RN Pressure Reduction Devices: positioning supports utilized Skin Protection: incontinence pads utilized Intervention: Promote and Optimize Oral Intake Flowsheets Taken 09/09/2025 1739 by Tatiana Aranda RN Nutrition Interventions: food preferences provided Taken 09/08/2025 1044 by Didi Goodson RN Oral Nutrition Promotion: physical activity promoted * Progress Notes - Sharon Peck RN - 09/10/2025 5:37 PM EDT Case Management Adult Progress Note Justin Best 70 y.o. male CSN: [id number] Admission: 08/26/2025 12:54 PM Primary Problem: Sepsis (CMS/HCC) Anticipated Discharge Date: 09/11/15 Medically Ready for Discharge: Anticipated Tomorrow Additional Comments CM contact to assist with discharge POC. Patient will discharge with bernstein for 5 day. He will follow up with [facility] for voiding trail. Patient will not need HH. He will need bernstein care teaching prior todischarge. If [facility] wants to keep the bernstein for a longer time. They can request HH if needed. PrimaryCM/SW will continue to follow. Sharon Peck RN * Care Plan - Tatiana Aranda RN - 09/10/2025 4:53 PM EDT Problem: Adult Inpatient Plan of Care Goal: Patient-Specific Goal (Individualized) Outcome: Ongoing, Progressing Problem: Pain Acute Goal: Optimal Pain Control and Function Outcome: Ongoing, Progressing Intervention: Optimize Psychosocial Wellbeing Flowsheets (Taken 09/10/2025 1652) Supportive Measures: active listening utilized decision-making supported goal-setting facilitated Diversional Activities: smartphone Spiritual Activities Assistance: affirmation provided Intervention: Prevent or Manage Pain Flowsheets (Taken 09/10/2025 1652) Sensory Stimulation Regulation: auditory stimulation minimized Bowel Elimination Promotion: adequate fluid intake promoted Sleep/Rest Enhancement: awakenings minimized Medication Review/Management: medications reviewed Problem: Electrolyte Imbalance Goal: Electrolyte Balance Outcome: Ongoing, Progressing Problem: Skin Injury Risk Increased Goal: Skin Health and Integrity Outcome: Ongoing, Progressing Intervention: Optimize Skin Protection Flowsheets (Taken 09/10/2025 1652) Activity Management: activity adjusted per tolerance Pressure Reduction Techniques: frequent weight shift encouraged * Progress Notes - Joyce Gunderson MD - 09/10/2025 2:47 PM EDT Subjective Seen at bedside twice today with his and sister. Patient reports the diarrhea has improved andhe overall feels better. We discussed about hematuria improving but his urine continues to be blood-tinged. He denies having any other acute complaints. . He agrees with probably being discharged tomorrow if his urine looks better and we can resume his Eliquis and he can follow up with Urology as an outpatient. Review of Systems Constitutional: Positive for fatigue. Gastrointestinal: Positive for diarrhea. All other systems reviewed and are negative. Objective Vitals Temp: [36.8 ??C (98.2 ??F)-37 ??C (98.6 ??F)] 36.8 ??C (98.2 ??F) Heart Rate: [74-85] 76 Resp: [15-17] 15 BP: (104-134)/(66-76) 114/69 Physical Exam Constitutional: Appearance: Normal appearance. HENT: Mouth/Throat: Mouth: Mucous membranes are moist. Eyes: Pupils: Pupils are equal, round, and reactive to light. Cardiovascular: Rate and Rhythm: Normal rate. Pulmonary: Effort: Pulmonary effort is normal. Breath sounds: Normal breath sounds. Abdominal: General: Abdomen is flat. Palpations: Abdomen is soft. Musculoskeletal: Right lower leg: Edema present. Left lower leg: Edema present. Neurological: Mental Status: He is alert and oriented to person, place, and time. Assessment & Plan Sepsis (CMS/HCC) Neutropenic fever (CMS/HCC) Justin Best is a 69-year-old male with a known medical history of Poorly differentiated GEjunction adenocarcinoma, hypertension, and hyperlipidemia, Recently diagnosed AF (On Eliquis), presenting with fever, worsening epigastric pain, and poor oral intake following recent chemotherapy. #Clostridium difficile infection/ diarrhea in the setting of neutropenia: Patient is admitted to hospital medicine for Fever in Immunocompromised state and neutropenia. C. Diff toxin and DNA positive. Completed course of fidaxomicin 200 mg PO BID for 29 doses, last dose 09/07/25. ID recs appreciated, started on PO vancomycin 09/07/25. Plan for 10 days, end date 09/16/2025 # Gross hematuria-likely related to trauma from Bernstein insertion, large prostate holding Eliquis, started on ceftriaxone based on preliminary UA but no growth from sample and hencestopped on 09/09. Continue irrigation, Bernstein catheter, urology recommendations appreciated, they agree with holding off on trial of void since Bernstein has been placed thrice already, suggested TOV 1 week after last Bernstein placement, can be done at home or urology clinic. Hemoglobin monitoring q.6 H, status post 1 PRBC. If urine looks better tomorrow we will resume Eliquis. #Adenocarcinoma of GE junction & Worsening Cancer Related Pain & Inability to tolerate PO: Patient follows up with [facility] team. Patient is unable to tolerate PO diet (even liquids). Alsohis epigastric pain is worsening and uncontrolled. Epigastric tenderness +. 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 Surgery planningunderway- 6-12wks from now Oxycodone 5 mg x Q6 PRN. #Atrial Fibrillation: Hold Eliquis, heart rate well controlled, not on any rate-controlling medication Telemetry FENGI: Regular diet DVT prophylaxis: Eliquis apixaban 5 mg BID on hold, will hold DVT prophylaxis for now, SCDs GI prophylaxis: Protonix 40 mg by mouth daily before breakfast Code status: Full code Disposition: pt ot rec home w assist and walker; plan to DC tomorrow if urine clears up Medically Ready for Discharge: tomorrow * Care Plan - Ana Cristina Yo - 09/09/2025 10:20 PM EDT Problem: Adult Inpatient Plan of Care Goal: Patient-Specific Goal (Individualized) Outcome: Ongoing, Progressing Flowsheets (Taken 09/09/20251999) Patient/Family-Specific Goals (Include Timeframe): RN and PCT will continue to assist with incontinent episodes, clean pt as needed, and apply barrier cream to skin. Individualized Care Needs: skin care Anxieties, Fears or Concerns: none expressed Goal: Optimal Comfort and Wellbeing Outcome: Ongoing, Progressing Intervention: Monitor Pain and Promote Comfort Flowsheets (Taken 09/09/20252139) Pain Management Interventions: medication (see MAR) Intervention: Provide Person-Centered Care Flowsheets (Taken 09/08/20252154 by Dariana Caicedo RN) Trust Relationship/Rapport: care explained choices provided emotional support provided questions answered questions encouraged thoughts/feelings acknowledged Problem: Pain Acute Goal: Optimal Pain Control and Function Outcome: Ongoing, Progressing Intervention: Optimize Psychosocial Wellbeing Flowsheets Taken 09/08/20252154 by Dariana Caicedo RN Supportive Measures: active listening utilized Taken 09/08/2025 1044 by Didi Goodson RN Diversional Activities: smartphone Taken 09/04/20251815 by Willis Tracy RN Spiritual Activities Assistance: affirmation provided Intervention: Develop Pain Management Plan Flowsheets (Taken 09/09/2025 2140) Pain Management Interventions: medication (see MAR) Intervention: Prevent or Manage Pain Flowsheets Taken 09/08/20252154 by Dariana Caicedo RN Bowel Elimination Promotion: adequate fluid intake promoted Sleep/Rest Enhancement: awakenings minimized Medication Review/Management: medications reviewed Taken 09/04/20251815 by Willis Tracy RN Sensory Stimulation Regulation: quiet environment promoted care clustered Taken 09/01/2025 1151 by Giovanna Washington RN Complementary Therapy: music therapy provided Problem: Nausea and Vomiting Goal: Nausea and Vomiting Relief Outcome: Ongoing, Progressing Intervention: Prevent and Manage Nausea and Vomiting Flowsheets Taken 09/09/20251738 by Tatiana Aranda RN Environmental Support: calm environment promoted Taken 09/08/20252154 by Dariana Caicedo RN Fluid/Electrolyte Management: fluids provided Taken 09/08/2025 1044 by Didi Goodson RN Nausea/Vomiting Interventions: stimuli minimized Oral Care: mouth swabbed Problem: Electrolyte Imbalance Goal: Electrolyte Balance Outcome: Ongoing, Progressing Intervention: Monitor and Manage Electrolyte Imbalance Flowsheets (Taken 09/08/20252154 by Dariana Caicedo RN) Fluid/Electrolyte Management: fluids provided Problem: Infection Goal: Absence of Infection Signs and Symptoms Outcome: Ongoing, Progressing Intervention: Prevent or Manage Infection Flowsheets Taken 09/09/20251999 by Ana Cristina Yo Isolation Precautions: precautions maintained contact protective Taken 09/08/20252154 by Dariana Caicedo RN Infection Management: aseptic technique maintained Taken 09/04/20251815 by Willis Tracy RN Fever Reduction/Comfort Measures: lightweight bedding lightweight clothing Problem: Skin Injury Risk Increased Goal: Skin Health and Integrity Outcome: Ongoing, Progressing Intervention: Optimize Skin Protection Flowsheets Taken 09/09/20251999 by Ana Cristina Yo Activity Management: activity adjusted per tolerance education provided ambulated in room Taken 09/09/20251738 by Tatiana Aranda RN Pressure Reduction Techniques: frequent weight shift encouraged Pressure Reduction Devices: positioning supports utilized Skin Protection: incontinence pads utilized Head of Bed (HOB) Positioning: HOB at 30 degrees Intervention: Promote and Optimize Oral Intake Flowsheets Taken 09/09/20251738 by Tatiana Aranda RN Nutrition Interventions: food preferences provided Taken 09/08/2025 1044 by Didi Goodson RN Oral Nutrition Promotion: physical activity promoted * Care Plan - Tatiana Aranda RN - 09/09/2025 5:39 PM EDT Problem: Adult Inpatient Plan of Care Goal: Patient-Specific Goal (Individualized) Outcome: Ongoing, Progressing Goal: Optimal Comfort and Wellbeing Outcome: Ongoing, Progressing Problem: Nausea and Vomiting Goal: Nausea and Vomiting Relief Outcome: Ongoing, Progressing Intervention: Prevent and Manage Nausea and Vomiting Flowsheets (Taken 09/09/20251738) Environmental Support: calm environment promoted Problem: Skin Injury Risk Increased Goal: Skin Health and Integrity Outcome: Ongoing, Progressing Intervention: Optimize Skin Protection Flowsheets (Taken 09/09/20251738) Activity Management: activity adjusted per tolerance Pressure Reduction Techniques: frequent weight shift encouraged Pressure Reduction Devices: positioning supports utilized Skin Protection: incontinence pads utilized Head of Bed (HOB) Positioning: HOB at 30 degrees Intervention: Promote and Optimize Oral Intake Flowsheets (Taken 09/09/20251738) Nutrition Interventions: food preferences provided * Progress Notes - Joyce Gunderson MD - 09/09/2025 1:51 PM EDT Subjective Seen at bedside with his and son. Patient reports feeling well overall. His diarrhea had improved to Q 3 hours yesterday and overnight has been every hour. He has been able to keep up his oral intake. Denies having any other acute complaints. Has minimal abdominal pain. Discussed with patient and family about plan of care regarding hematuria, diarrhea. They understand questions and concerns were addressed. Also discussed the fact that he does not have a UTI and hence antibiotic has been stopped. We will likely have to keep Bernstein for now and follow-up with Urology outpatient. Review of Systems Constitutional: Positive for fatigue. Gastrointestinal: Positive for diarrhea. All other systems reviewed and are negative. Objective Vitals Temp: [36.7 ??C (98 ??F)-36.7 ??C (98.1 ??F)] 36.7 ??C (98 ??F) Heart Rate: [72-87] 78 Resp: [12-22] 22 BP: (109-125)/(70-75) 109/70 Physical Exam Constitutional: Appearance: Normal appearance. HENT: Mouth/Throat: Mouth: Mucous membranes are moist. Eyes: Pupils: Pupils are equal, round, and reactive to light. Cardiovascular: Rate and Rhythm: Normal rate. Pulmonary: Effort: Pulmonary effort is normal. Breath sounds: Normal breath sounds. Abdominal: General: Abdomen is flat. Palpations: Abdomen is soft. Musculoskeletal: Right lower leg: Edema present. Left lower leg: Edema present. Neurological: Mental Status: He is alert and oriented to person, place, and time. Assessment & Plan Sepsis (CMS/HCC) Neutropenic fever (CMS/HCC) Justin Best is a 69-year-old male with a known medical history of Poorly differentiated GEjunction adenocarcinoma, hypertension, and hyperlipidemia, Recently diagnosed AF (On Eliquis), presenting with fever, worsening epigastric pain, and poor oral intake following recent chemotherapy. #Clostridium difficile infection/ diarrhea in the setting of neutropenia: Patient is admitted to hospital medicine for Fever in Immunocompromised state and neutropenia. C. Diff toxin and DNA positive. Completed course of fidaxomicin 200 mg PO BID for 29 doses, last dose 09/07/25. ID recs appreciated, started on PO vancomycin 09/07/25. Plan for 10 days, end date 09/17/2025 # Gross hematuria-likely related to UTI, complicated; holding Eliquis, started on ceftriaxone basedon preliminary UA but no growth from sample and hence stopped on 09/09. Continue irrigation, Bernstein catheter, urology recommendations appreciated and will likely need follow-up as an outpatient. Hemoglobin monitoring q.6 H, status post 1 PRBC. #Adenocarcinoma of GE junction & Worsening Cancer Related Pain & Inability to tolerate PO: Patient follows up with [facility] team. Patient is unable to tolerate PO diet (even liquids). Alsohis epigastric pain is worsening and uncontrolled. Epigastric tenderness +. 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 Surgery planningunderway- 6-12wks from now Oxycodone 5 mg x Q6 PRN. #Atrial Fibrillation: Hold Eliquis, heart rate well controlled, not on any rate-controlling medication Telemetry FENGI: Regular diet DVT prophylaxis: Eliquis apixaban 5 mg BID GI prophylaxis: Protonix 40 mg by mouth daily before breakfast Code status: Full code Disposition: pt ot rec home w assist and walker. Medically Ready for Discharge:Anticipated Tomorrow * Progress Notes - Gracie Gómez PA - 09/09/2025 11:51 AM EDT TRANSPLANT INFECTIOUS DISEASE PROGRESS NOTE 09/09/2025 SUBJECTIVE: No acute events overnight. Remains afebrile. He reports the diarrhea was a bit better but worsened some overnight. Still having bowel movements around every 2- 3 hours. REVIEW OF SYSTEMS: 14-point ROS negative except as stated above. MEDICATIONS: Current Medications[1] ALLERGIES: Allergies[2] PHYSICAL EXAM: GEN: well appearing, in NAD SKIN: warm, well-perfused, no rashes or lesions on exposed skin EYES: sclera anicteric, EOMI HENT: NCAT, mmm, neck supple, full ROM CHEST: atraumatic, symmetric chest rise HEART: RRR LUNGS: unlabored on RA GI: non distended, tender in suprapubic area but rest of abdomen is soft and non tender VASC: no cyanosis MSK: no obvious deformity, full ROM NEURO: A&OX3, no focal neurologic deficits PSYCH: appropriate mood and affect VITAL SIGNS: Patient Vitals for the past 24 hrs: BP Temp Temp src Pulse Resp SpO2 Weight 09/09/25 1109 109/70 36.7 ??C (98 ??F) Oral 78 22 93 % -- 09/09/25 0729 113/74 36.7 ??C (98.1 ??F) Oral 72 12 97 % -- 09/09/25 0600 -- -- -- -- -- -- 88.5 kg (195 lb 1.7 oz) 09/09/25 0543 116/71 36.7 ??C (98.1 ??F) -- 79 16 94 % -- 09/08/25 2332 -- -- -- 87 17 95 % -- 09/08/25 2145 125/74 36.7 ??C (98.1 ??F) -- 81 18 96 % -- 09/08/25 1538 119/75 36.7 ??C (98.1 ??F) Oral 80 18 96 % -- 09/08/25 1200 108/64 36.8 ??C (98.3 ??F) -- 83 18 96 % -- 09/08/25 1153 98/65 36.8 ??C (98.3 ??F) Oral 83 18 96 % -- LABS: Labs in last 18 hours CBC WBC ?? Hb 8.0 (L) Plt ?? Hct ?? ANC ?? INR ??, PTT ??, Anti-Xa ?? BMP Na 139 Cl 107 BUN 9 Glu 86 K 4.1 Co2 24 Cr 0.97 Ca 7.5 (L) iCa 4.4 (L) Mg ??, Phos 1.8 (L) Lactate ?? LFT AST ?? AlkPhos ?? T Prot ?? ALK ?? Bili ?? Alb ?? D.Bili ?? Patient records reviewed and pertinent findings outlined below. IMAGING/STUDIES: US Renal Complete Result Date: 08/30/2025 Impression: No hydronephrosis XR Chest 2 Views Result Date: 08/26/2025 Impression: No acute focal airspace consolidation. ANTIMICROBIAL REVIEW: Anti-infectives (From admission, onward) Start Dose/Rate Route Frequency Ordered Stop 09/07/25 1230 Vancomycin HCl 50 MG/ML oral solution 125 mg 125 mg Oral 4 times daily 09/07/25 1143 09/17/25 1359 08/29/25 0000 fidaxomicin (Dificid) 200 MG tablet 200 mg Oral 2 times daily 08/29/25 0822 09/06/25 1049 MICROBIOLOGY: 08/26/25 gi panel: negative 08/26/25 ova and parasite: negative 08/26/25 c diff: positive 08/26/25 blood cultures: NGTD ASSESSMENT: Justin Best is a 70 y.o. 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 Initially presented to OSH with these symptoms with CT A/P reporting pancolitis. He was transferred to for further care. On admission, he was febrile and tested positive for c diff. He regained his counts and mounted a response with WBC peak on 08/31/25 at 25k. He was started on fidaxomicin on 08/28 for his first episode of non fulminant c diff.Since that time, he has continued to have watery diarrhea every hour with no improvement. ID consulted for recommendations. Given he has not had any improvement on fidaxomicin, would switch to PO vancomycin. Could also consider scheduled immodium if we see a little improvement. Low concern for fulminant c diff at this time as abdominal exam was benign and WBC/fevers have improved. After switch to PO vancomycin, he had much improvement in the frequency of bowel movements. PROBLEM LIST Non fulminant c difficile infection Colitis Neutropenia, resolved ISRRAEL, resolved GE junction adenocarcinoma on chemotherapy RECOMMENDATIONS: - Continue PO vancomycin 125mg 4 times per day - Recommend 10 days of PO vancomycin, 09/07/25 - 09/16/25 - Would stop ceftriaxone, especially in the setting of active c diff infection - Consider scheduled immodium to assist with symptom management Thank you for allowing us to participate in this patient's care. ID will follow. Gracie Gómez PA-C Division of Infectious Diseases Available on [employer] Chat History, assessment, and plan discussed with ID attending, Dr. Post [facility] attestation - Today, I am treating the patient for c diff which can cause dehydration, ISRRAEL in the short-term future in the absence of appropriate treatment, as described in the note. - Assessment required an independent historian, additional information obtained from chart review, primary team - Independently interpreted test c diff which shows positive, infection. - Discussed management of c diff with primary team and consulting services. - Reviewed notes by primary team and consulting services to determine appropriate plan of care as in the note. - Estimated Creatinine Clearance: 80.8 mL/min (by C-G formula based on SCr of 1.05 mg/dL).reviewed;antibiotics recommended above are dosed accordingly. - The patient is being intensively monitored for antimicrobial toxicity from vancomycin with the following tests: CBC, CMP. - The following complex inpatient infectious disease services were performed today: Complex antimicrobial therapy counseling and treatment [1] Current Facility-Administered Medications Medication Dose Route Frequency Provider Last Rate Last Admin [Held by provider] apixaban (Eliquis) tablet 5 mg 5 mg Oral BID Evi Reeves MD 5 mg at 09/07/25 0853 finasteride (Proscar) tablet 5 mg 5 mg Oral Daily Joyce Gunderson MD 5 mg at 09/09/25 0811 HYDROcodone-acetaminophen ([place]) 5-325 MG per tablet 5 mg of hydrocodone 5 mg of hydrocodone Oral q6h PRN Jayne Abrams, DO 5 mg of hydrocodone at 09/08/25 2259 lidocaine (Uro-Jet) 2 % gel 1 Application 1 Application Urethral PRN Joyce Gunderson MD 1 Application at 09/08/25 1005 magic mouthwash BLM (FIRST-Mouthwash) suspension 15 mL 15 mL Swish & Spit Before meals & nightly Jadon Rangel MD 15 mL at 09/09/25 08 melatonin tablet 6 mg 6 mg Oral Nightly PRN Jayne Abrams, DO 6 mg at 09/07/252003 nystatin (Mycostatin) 216935 UNIT/ML suspension 500,000 Units 5 mL Swish & Swallow 4x daily Jadon Rangel MD 500,000 Units at 09/09/25 0811 ondansetron ODT (Zofran-ODT) disintegrating tablet 8 mg 8 mg Oral q6h PRN Jadon Rangel MD Or ondansetron (Zofran) injection 8 mg 8 mg Intravenous q6h PRN Jadon Rangel MD 8 mg at 09/02/252014 Or ondansetron (Zofran) 4 MG/5ML solution 8 mg 8 mg Oral q6h PRN Jadon Rangel MD pantoprazole (Protonix) EC tablet 40 mg 40 mg Oral Daily before breakfast Jadon Rangel MD 40 mgat 09/09/25 0811 potassium & sodium phosphates (Phos-NaK) 280-160-250 MG packet 2 packet 2 packet Oral With meals & nightly Sheyla Malagon MD 2 packet at 09/09/25 0810 prochlorperazine (Compazine) tablet 5 mg 5 mg Oral q6h PRN Sheyla Malagon MD Or prochlorperazine (Compazine) suppository 25 mg 25 mg Rectal q12h PRN Sheyla Malagon MD Or prochlorperazine (Compazine) injection 2.5 mg 2.5 mg Intravenous q6h PRN Sheyla Malagon MD 2.5 mg at 09/01/252042 Or prochlorperazine (Compazine) injection 5 mg 5 mg Intramuscular q6h PRN Sheyla Malagon MD prochlorperazine (Compazine) tablet 10 mg 10 mg Oral q6h PRN Evi Reeves MD 10 mg at 08/28/25 0130 rosuvastatin (Crestor) tablet 10 mg 10 mg Oral Daily Evi Reeves MD 10 mg at 09/09/25 0811 sodium bicarbonate tablet 1,300 mg 1,300 mg Oral BID Sheyla Malagon MD 1,300 mg at 09/09/25 0811 sodium chloride ([place]) 0.65 % nasal spray 1 spray 1 spray Each Nostril PRN Sheyla Malagon MD 1 spray at 09/03/25 1349 tamsulosin (Flomax) 24 hr capsule 0.8 mg 0.8 mg Oral Daily Joyce Gunderson MD 0.8 mg at 09/09/25 0811 Vancomycin HCl 50 MG/ML oral solution 125 mg 125 mg Oral 4x daily Joyce Gunderson MD 125 mg at 09/09/25 0811 [2] Allergies Allergen Reactions Oxycodone Hallucinations Penicillins Unknown - Patient states they do not know rxn details Childhood allergy, thinks it was maybe a rash, but isn't sure * Care Plan - Dariana Caicedo RN - 09/08/2025 9:58 PM EDT Problem: Adult Inpatient Plan of Care Goal: Patient-Specific Goal (Individualized) Outcome: Ongoing, Progressing Flowsheets (Taken 09/08/20251999) Patient/Family-Specific Goals (Include Timeframe): pt will remain free from falls throughout shift Individualized Care Needs: ongoing medical mgmt Anxieties, Fears or Concerns: no concerns Goal: Optimal Comfort and Wellbeing Outcome: Ongoing, Progressing Intervention: Monitor Pain and Promote Comfort Flowsheets (Taken 09/08/20252154) Pain Management Interventions: pain management plan reviewed with patient/caregiver emotional support Intervention: Provide Person-Centered Care Flowsheets (Taken 09/08/20252154) Trust Relationship/Rapport: care explained choices provided emotional support provided questions answered questions encouraged thoughts/feelings acknowledged Problem: Pain Acute Goal: Optimal Pain Control and Function Outcome: Ongoing, Progressing Intervention: Optimize Psychosocial Wellbeing Flowsheets (Taken 09/08/20252154) Supportive Measures: active listening utilized Intervention: Prevent or Manage Pain Flowsheets (Taken 09/08/20252154) Bowel Elimination Promotion: adequate fluid intake promoted Sleep/Rest Enhancement: awakenings minimized Medication Review/Management: medications reviewed Problem: Nausea and Vomiting Goal: Nausea and Vomiting Relief Outcome: Ongoing, Progressing Problem: Electrolyte Imbalance Goal: Electrolyte Balance Outcome: Ongoing, Progressing Intervention: Monitor and Manage Electrolyte Imbalance Flowsheets (Taken 09/08/20252154) Fluid/Electrolyte Management: fluids provided Problem: Infection Goal: Absence of Infection Signs and Symptoms Outcome: Ongoing, Progressing Intervention: Prevent or Manage Infection Flowsheets Taken 09/08/20252154 Infection Management: aseptic technique maintained Taken 09/08/20251999 Isolation Precautions: precautions maintained contact Problem: Skin Injury Risk Increased Goal: Skin Health and Integrity Outcome: Ongoing, Progressing Intervention: Optimize Skin Protection Flowsheets (Taken 09/08/20252154) Activity Management: activity adjusted per tolerance Pressure Reduction Techniques: frequent weight shift encouraged Skin Protection: incontinence pads utilized * Progress Notes - Adeola Guillory - 09/08/2025 3:26 PM EDT Occupational Therapy Treatment Patient Name: Justin Best Today's Date: 09/08/2025 OT Discharge Recommendations: Home with assistance, Outpatient PT, Outpatient OT Equipment Recommended: Rolling walker Subjective I'm tired today, I didn't sleep at all yesterday. RN reported pt had blood transfusion this AM. Participants in Care Family/Caregiver Present: Yes Family/Caregiver: Spouse, Other (Specify) (family friend) Presentation Oxygen Therapy: None (Room air) Lines and Tubes: Intravenous access, Telemetry, Urinary catheter (single lumen port) Pre-Session: Supine, Lines intact Pre-Session Comments: RN and patient agreeable Post-Session: Supine, Head of bed elevated Post-Session Comments: All needs met and in reach. Family at the bedside Precautions Medical Precautions: Fall precautions Objective Pain No pain reported Delirium Screening RASS: Alert and calm Confusion Assessment Method-ICU (CAM-ICU/PCAM-ICU) Feature 3: Altered Level of Consciousness: Negative Cognition Cognition Overall Cognitive Status: Within Functional Limits Arousal/Alertness: Appropriate responses to stimuli Mood/Behavior: Alert Orientation Level: Oriented X4 Single Step Commands: Consistently Multi-Step Commands: Consistently Method of Communication: Verbal Safety Judgment: Good awareness of safety precautions Awareness of Errors: Good awareness of errors made Deficit Awareness: Fully aware of deficits Attention Span: Appears intact Bed Mobility Bed Mobility Exam: Rolling/Turning Level of Hardy: Stand-by assist Physical/Nonphysical Assist: Verbal Cues, Minimal cues Assistive Device: Bed rails Bed Mobility Exam: Scooting/Bridging Level of Hardy: Stand-by assist Physical/Nonphysical Assist: Set-up required, Verbal Cues, Minimal cues Assistive Device: Bed rails Bed Mobility Exam: Supine to Sit Level of Hardy: Stand-by assist Physical/Nonphysical Assist: Set-up required, Verbal Cues, HOB elevated, Minimal cues Assistive Device: Bed rails Bed Mobility Exam: Sit to Supine Level of Hardy: Stand-by assist Physical/Nonphysical Assist: Verbal Cues, Minimal cues Assistive Device: Bed rails Transfers Transfer Exam: Sit to stand Level of Hardy: Contact guard Physical/Nonphysical Assist: Set-up required, Verbal Cues, Nonverbal cues (demo/gestures), Minimal cues Assistive Device: Walker, rolling Transfer Exam: Stand to Sit Level of Hardy: Contact guard Physical/Nonphysical Assist: Set-up required, Verbal Cues, Nonverbal cues (demo/gestures), Minimal cues Assistive Device: Walker, rolling Toilet Transfer Level of Hardy: Contact guard Physical/Nonphysical Assist: Minimal cues, Set-up required, Verbal Cues Type of Transfer: Ambulation, To toilet Assistive Device: Walker, rolling, Grab bar Self-Care Interventions Self Care/Home Management (ADLs) Time Entry: 30 Therapist set up environment to facilitate safe mobility. Pt completed supine to sit EOB with SBA. Pt stood via Rw with CGA and ambulated short distance in to the bathroom. Pt transferred to the toilet with CGA and required increased time as pt has diarrhea. Pt required CGA for sit to stand from the toilet and stood at the sink to wash his hands before ambulating back to the bed due to increased fatigue. Pt transferred back to the bed with CGA and was positioned with pillows for comfort. Grooming Grooming Level of Assistance: Setup, Contact guard Grooming Where Assessed: Standing sinkside Grooming Interventions: Pt washedhis hands at the sink with CGA Toileting Toileting Level of Assistance: Dependent Where Assessed: Toilet Toileting Interventions: Pt required Dep A for pericare in standing due to fatigue. Therapeutic Exercise (15 minutes) Pt was educated on B UE exercises of punches, arm raises, butterflies, bicep curls, and rows x 10 reps to increase strength for functional tasks and transfers. Pt required verbal and visual cues for proper technique. Pt required frequent rest breaks with good return demo. Assessment Pt tolerated session well and is progressing toward his goals. Pt demo increased weakness due to diarrhea and not getting any sleep last night. Pt completed toileting and grooming tasks with CGA and continues to benefit from skilled OT services to increase strength and endurance for accessing bedroom, bathroom, and kitchen at home. OT Recommendations Discharge Destination: Home with assistance, Outpatient PT, Outpatient OT Discharge Equipment: Rolling walker Plan Continue OT plan of care Goals OT GOAL DETAILS Goal Established Date Time Frame Goal Status OT Goal 1: Pt will complete sit <> stand and toilet transfers with Mod(I) using AE PRN 08/31/25 2 weeks OT Goal 2: Pt will complete total body dressing independently 08/31/25 2 weeks OT Goal 3: Pt will complete grooming tasks independently while standing at sink level 08/31/25 2 weeks OT Goal 4: Pt will tolerate > 5 min standing functional task without requiring rest break or demonstrating LOB, as prep for engaging in standing ADL/IADL tasks 08/31/25 Written by Adeola Guillory on 09/08/25 at 4:14 PM. * Progress Notes - Henri Bowden IV - 09/08/2025 3:20 PM EDT PHYSICAL THERAPY TREATMENT PATIENT DATA Patient Name Justin Best Session Date 09/08/2025 Total Treatment Time 40 min PT Discharge Recommendations Home with assistance, Outpatient PT, Outpatient OT Equipment Recommendations Rolling walker MOBILITY GUIDELINES There are no questions and answers to display. PRECAUTIONS Weight Bearing Precautions (if applicable) ROM Restrictions (if applicable) Medical Precautions Medical Precautions: Fall precautions HOME LIVING/SET-UP Lives With Spouse Home Type House Home Equipment shower chair, Rolling walker, Bedside commode Home Layout Two level, Able to live on one level with bedroom/bathroom, 2nd floor bed/bath (Ramp toenter house, or 4-5 RAO through side door) Bathroom Layout Tub/Shower combo, Grab bars, Shower chair Standard Additional Comments Pt normally goes up to second level to shower and access bedroom, as first floor only has claw foot tub. Pt intends is to be able to navigate up to second floor for showering tasks and to access bedroom, TTB reviewed for claw foot tub if needed. PRIOR LEVEL OF FUNCTION Receives help from No assist required prior to admission Level of Mobility Ambulatory- community Mobility Hardy Independent gait without device History of Falls No ADL Performance PRESENTATION Oxygen None (Room air) Lines and Tubes telemetry Urethral Catheter Other (Comment) 22 Fr. (Active) Single Lumen Implantable Port 07/29/25 Right Chest (Active) Peripheral IV Left Antecubital (Active) Pre-Session Supine, Lines intact RN and patient agreeable RN cleared patient for Physical Therapy treatment session. Post-Session Supine, Head of bed elevated All needs met and in reach. Family at the bedside Patientpositioned for comfort and pressure relief at conclusion of therapy session. Bracing (if applicable) SUBJECTIVE PARTICIPANTS IN CARE Patient/Caregiver Comments Patient agreeable to Physical Therapy treatment session. I had a bad night not sleeping but I am feeling a little better now. We can try to move around some but not sure how much I will be able to do. But I know I need to move. Visitors Present Yes Spouse, Other (Specify) (family friend) Time Study Observer (if applicable) Time Study Observer: Not Applicable OBJECTIVE PAIN Pt with no pain reported initially but after uprighting and sitting to the EOB. Pt with complaints of burning and pain at his catheter. I feel like I need to go all the time. Pt did have some bloody discharge in the tubing of the catheter and the RN was notified. Prior to FORM DESIGNER's departure: * rest was provided * patient was positioned for comfort * pillow support was provided * RN was informed of pt's pain DELIRIUM SCREENING RASS: Alert and calm Confusion Assessment Method-ICU (CAM-ICU/PCAM-ICU) Feature 3: Altered Level of Consciousness: Negative INTERVENTIONS THERAPEUTIC ACTIVITY Treatment Minutes 30 Interventions Pt performed functional mobility and therapeutic activity training with emphasis on improving activity tolerance, balance, and biomechanics, as patient exhibits deconditioning from baseline. Refer to pertinent sections for intervention details. Skilled monitoring of vitals performed throughout session. Time required for line management and environmental set-up to allow for safety and access to areas of treatment space. The following sections below give further details on interventions provided by this therapist: BED MOBILITY Level of Hardy Physical/Non- physical Assist Adaptive Equipment Utilized Rolling/ Turning Stand-by assist Verbal Cues, Minimal cues Bed rails Scooting/ Bridging Stand-by assist Set-up required, Verbal Cues, Minimal cues Bed rails Supine to Sit Stand-by assist Set-up required, Verbal Cues, HOB elevated, Minimal cues Bed rails Sit to Supine Stand-by assist Verbal Cues, Minimal cues Bed rails Interventions Skilled intervention required for line management, monitoring vital signs, and pt preparation for mobility tasks. Consistent verbal and tactile cues required for initiation, sequencing,and safety with functional tasks. Pt required time in sitting after transition to the EOB due to burning pain in his catheter. TRANSFERS Level of Hardy Physical/Non- physical Assist Adaptive Equipment Utilized Sit to Stand Contact guard Set-up required, Verbal Cues, Nonverbal cues (demo/gestures), Minimal cues Walker, rolling Stand to sit Contact guard Set-up required, Verbal Cues, Nonverbal cues (demo/gestures), Minimal cues Walker, rolling Bed to Chair Toilet Transfer Contact guard Ambulation, To toilet Set-up required, Verbal Cues, Nonverbal cues (demo/gestures), Minimal cues Walker, rolling, Grab bar Shower Transfer Interventions FORM DESIGNER provided verbal cues for safe hand placement during standing/sitting with instructions to press up from the EOB/Arms of the chair prior to reaching for the Rolling Walker to improvesafety with transition. During sitting patient required cueing for reaching back to the Arm of chair or the EOB for assist with controlled decent to prevent falling back and again to improve safety with transition. Pt. performed the above sit to stand transfers with the above assist and cues to promote: WB through B LE's for improved balance, B LE strengthening, and core strength. To facilitate increased independence, decreased caregiver assist, prepare for pre-gait activities, for improved functional mobility. Pt was able to stand a total of 2 reps from Multiple Surfaces during this session. Frequent seated rest breaks needed between trials for fatigue. AMBULATION Level of Hardy Distance Adaptive Equipment Utilized Ambulation Contact guard assist, Minimal verbal cues, Additional assist needed for line management 2 x 15ft to and from the restroom Rolling walker None Comments Pt with some initial sway in balance during initial stance but able to gain his balance with minimal correction from this therapist. Pt was able to navigate the walker appropriately and it was needed to be adjusted to meet his height. Pt with good steps and pace and able to maintain withinthe walker during turn to sit on the toilet as well as for turn to sit back to the bed. Patient demonstrates decreased overall activity tolerance/endurance and decreased strength, evidenced by decreased ambulation distance compared to baseline level of function. FORM DESIGNER presence was necessary for: * managing lines * progressing patient ambulation distances * decreasing patient's risk of falling while progressing pt's distances BALANCE Postural Appearance Posture: Rounded shoulders, Forward head Level of Hardy Balance Support Activities Static Sit Standby assist Feet supported, Left upper extremity support, Right upper extremity support Dynamic Sit Standby assisst Right upper extremity support, Left upper extremity support, Feet supported Anterior/Posterior weight shifts, Trunk control activities, Lateral weight shifts Static Stand Standby assist Left upper extremity support, Right upper extremity support (rolling walker) Dynamic Stand Contact guard Right upper extremity support, Left upper extremity support (rolling walker) Interventions Skilled intervention required for line management, monitoring vital signs, and pt preparation for mobility tasks. Consistent verbal and tactile cues required for initiation, sequencing, and safety with functional tasks. Response: Pt continues to mobilize with little assistance but did have some issues with dizziness upon standing and with sitting and was advised on keeping his eyes open and focusing on a point to improve dizziness before continued movement. Pt was able to walk to and from the restroom with need to have a bowel movement and took extended time on the toilet. Pt required assist with dheeraj-care prior to returnto the bed with reports of fatigue. All therapeutic activity provided specifically prescribed to address patient's impairments, performed to encourage increased IND with functional tasks due to current functional decline, ultimately toencourage a full return to patient's prior level of function. THERAPEUTIC EXERCISE Treatment Minutes 10 Interventions In Supine - HOB Elevated position, pt performed x10 reps of the following exercises bilaterally: * Glut Sets x2-3 sec holds * Quad Sets x2-3 sec holds * Heel Slides * Straight Leg Raise * Hip Abduction * Ankle pumps x1-2 sec holds FORM DESIGNER provided minimal verbal and tactile cueing to assist with maintaining technique and pace for maximizing muscle contractibility and strength. Pt required frequent rest breaks between exercises forfatigue. Patient was advised and instructed to doing the exercises 2-3 x per day @ 10-30 reps each as able and to progress this program as the reps become easier to continue challenging their muscles, movement/flexibility and to continue gains with their functional mobility overall. Standardized Assessments Standardized Assessments Standardized Assessments: AMPAC 6-Clicks Mobility Assessment AMPA 6-Clicks Mobility Assessment Difficulty patient has turning over in bed (including adjusting bedclothes, sheets, and blankets)?:None Difficulty patient has sitting down on and standing up from a chair with arms (wheelchair, bedside commode, etc.)?: A little Difficulty patient has moving from lying on back to sitting on the side of the bed?: None How much help does the patient need moving to and from a bed to a chair (including a wheelchair)?: A little How much help does the patient need to walk in hospital room?: A little How much help does the patient need climbing 3-5 steps with a railing?: Unable AMPA 6-Clicks Mobility Assessment Total : 18 PATIENT / FAMILY EDUCATION Patient was educated regarding the PT POC and recommendations regarding discharge planning, as wellas progressively increased time spent out of bed/up to chair, and continued mobilization / ambulation with nursing staff as tolerated to promote increased activity tolerance and Endurance. FORM DESIGNER providing verbal cues/demonstration for pursed-lip breathing technique to promote improved ventilation, decreased respiratory rate and energy conservation with activity. FORM DESIGNER stressed to patient the importance of having nursing staff assist with transfer from bed / back to bed for increased safety and to reduce risk of falls while in the hospital. Patient stated understanding of information provided, denied having further questions or concerns, and stated agreement with current plan of care and recommendations. ASSESSMENT Total Treatment time for this session: 40 Patient displayed good effort and toleration to PT treatment, demonstrated mild improvement in functional mobility reflected by slight reduction in the need for physical assistance and cueing during bed mobility, standing, and functional transfers. Patient's primary limitations are attributed to fatigue, dizziness, decreased functional endurance/strength, and impaired upright balance. Patient only able to transfer to and from the restroom with taking a short walk with a RW. The walker was adjusted to his height to improve posture and balance during mobility. Patient currently unable to safelyambulate functional household or community distances independently and poses as fall risk. VSS throughout without acute adverse effects noted. Will progress mobility as appropriate. Patient would continue to benefit from skilled PT services to decrease fall risk and promote independence with functional mobility, in order to maximize potential level of function. Patient continues to be most appropriate to return home with assistance as they continue to report that they will have necessary assistance available at time of discharge. Patient would benefit from Outpatient PT and/or Outpatient OT PT RECOMMENDATIONS Discharge Destination Home with assistance, Outpatient PT, Outpatient OT Discharge Equipment Rolling walker PLAN Pt will continue to benefit from skilled PT for addressing patient's impairments and reducing patient's participation restrictions, activity limitations, decrease their risk of falls, decrease their risk of hospital acquired weakness and to maximize their independence with mobility to ultimately improve their overall quality of life. Will progress current POC to encourage increased IND with all transfers, gait, balance and limits in strength. PT GOALS PT GOAL DETAILS Goal Established Date Time Frame Goal Status PT Goal 1: Pt will improve AMPAC score equal or greater than 19 to demonstrate improved functional mobility. 08/30/25 2 weeks PT Goal 2: Pt will ambulate 100ft with CGA and LRAD to demonstrate improved household ambulation. 08/30/25 2 weeks Goal met PT Goal 3: Pt will perform supine <> sit with SBA and HOB flat. 08/30/25 2 weeks PT Goal 4: Pt will perform STS with SBA and least restrictive AD to decrease caregiver burden. 08/30/25 2 weeks PT Goal 5: Pt/family will be independent with HEP and discharge recommendations. 08/30/25 2 weeks Written by Henri Bowden IV on 09/08/25 at 3:35 PM. * Progress Notes - Kristen Toro RN - 09/08/2025 11:43 AM EDT Case Management Adult Progress Note Justin Best 70 y.o. male CSN: [id number] Admission: 08/26/2025 12:54 PM Primary Problem: Sepsis (CMS/HCC) Anticipated Discharge Date: 5+ day Medicare Second Notice: pending Medically Ready for Discharge: Anticipated in 5+ Days Additional Comments: per team, not medically ready for discharge. ID follow for c-diff evaluation. PO vancomycin recommended. Attending for reports patient had episode of hematuria and started on IV ABX end date 09.11.25. PT/OT home with assistance and outpatient PT/OT. Script provided. Equipment recommended: rolling walker. [employer]/order accepted and delivered to bedside by [place], [place] phone [phone] Transport: family to provide. Kristen Toro, YAHAIRA * Progress Notes - Gracie Gómez PA - 09/08/2025 11:27 AM EDT TRANSPLANT INFECTIOUS DISEASE PROGRESS NOTE 09/08/2025 SUBJECTIVE: No acute events overnight. Remains afebrile. He reports diarrhea has improved. Family at bedside notes that in the 3-3.5 hour time she has been here, he only had one bowel movement. Denies any worsening abdominal pain. He notes that his belly feels different , meaning fullness in his abdomen. REVIEW OF SYSTEMS: 14-point ROS negative except as stated above. MEDICATIONS: Current Medications[1] ALLERGIES: Allergies[2] PHYSICAL EXAM: GEN: well appearing, in NAD SKIN: warm, well-perfused, no rashes or lesions on exposed skin EYES: sclera anicteric, EOMI HENT: NCAT, mmm, neck supple, full ROM CHEST: atraumatic, symmetric chest rise HEART: RRR LUNGS: unlabored on RA GI: non distended, tender in suprapubic area but rest of abdomen is soft and non tender VASC: no cyanosis MSK: no obvious deformity, full ROM NEURO: A&OX3, no focal neurologic deficits PSYCH: appropriate mood and affect VITAL SIGNS: Patient Vitals for the past 24 hrs: BP Temp Temp src Pulse Resp SpO2 09/08/25 1120 -- 36.7 ??C (98 ??F) Oral -- -- -- 09/08/25 1013 110/62 36.6 ??C (97.9 ??F) Oral -- -- -- 09/08/25 0953 100/55 36.8 ??C (98.3 ??F) Oral 86 17 -- 09/08/25 0721 120/71 36.7 ??C (98.1 ??F) Oral 84 16 96 % 09/08/25 0349 109/70 36.8 ??C (98.2 ??F) Oral 86 16 97 % 09/08/25 0004 111/65 37.2 ??C (98.9 ??F) -- 85 16 94 % 09/08/25 0003 111/65 37.2 ??C (98.9 ??F) Oral 85 16 93 % 09/07/25 2013 112/72 36.8 ??C (98.2 ??F) Oral 96 16 97 % 09/07/25 1437 111/65 36.8 ??C (98.3 ??F) Oral 82 16 96 % 09/07/25 1148 102/62 36.8 ??C (98.2 ??F) Oral 93 16 97 % LABS: Labs in last 18 hours CBC WBC 9.88 Hb 6.5 (L) Plt 537 (H) Hct 20.4 (L) ANC 7.77 (H) INR ??, PTT ??, Anti-Xa ?? BMP Na 137 Cl 105 BUN 10 Glu 93 K 3.3 (L) Co2 26 Cr 0.97 Ca 7.4 (L) iCa ?? Mg ??, Phos ?? Lactate ?? LFT AST ?? AlkPhos ?? T Prot ?? ALK ?? Bili ?? Alb ?? D.Bili ?? Patient records reviewed and pertinent findings outlined below. IMAGING/STUDIES: US Renal Complete Result Date: 08/30/2025 Impression: No hydronephrosis XR Chest 2 Views Result Date: 08/26/2025 Impression: No acute focal airspace consolidation. ANTIMICROBIAL REVIEW: Anti-infectives (From admission, onward) Start Dose/Rate Route Frequency Ordered Stop 09/07/25 1930 cefTRIAXone (Rocephin) 1 g in sodium chloride 0.9% 100 mL IVPB (vial adapter required) 1 g 220 mL/hr over 30 Minutes Intravenous Every 24 hours 09/07/25 1837 09/12/25 1929 09/07/25 1230 Vancomycin HCl 50 MG/ML oral solution 125 mg 125 mg Oral 4 times daily 09/07/25 1143 08/29/25 0000 fidaxomicin (Dificid) 200 MG tablet 200 mg Oral 2 times daily 08/29/25 0822 09/06/25 2359 MICROBIOLOGY: 08/26/25 gi panel: negative 08/26/25 ova and parasite: negative 08/26/25 c diff: positive 08/26/25 blood cultures: NGTD ASSESSMENT: Justin Best is a 70 y.o. 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 Initially presented to OSH with these symptoms with CT A/P reporting pancolitis. He was transferred to for further care. On admission, he was febrile and tested positive for c diff. He regained his counts and mounted a response with WBC peak on 08/31/25 at 25k. He was started on fidaxomicin on 08/28 for his first episode of non fulminant c diff.Since that time, he has continued to have watery diarrhea every hour with no improvement. ID consulted for recommendations. Given he has not had any improvement on fidaxomicin, would switch to PO vancomycin. Could also consider scheduled immodium if we see a little improvement. Low concern for fulminant c diff at this time as abdominal exam was benign and WBC/fevers have improved. After switch to PO vancomycin, he had much improvement in the frequency of bowel movements. PROBLEM LIST Non fulminant c difficile infection Colitis Neutropenia, resolved ISRRAEL, resolved GE junction adenocarcinoma on chemotherapy RECOMMENDATIONS: - Continue PO vancomycin 125mg 4 times per day - Plan for 10 days of PO vancomycin - Would stop ceftriaxone, especially in the setting of active c diff infection - Could consider scheduled immodium to assist with symptom management Thank you for allowing us to participate in this patient's care. ID will follow. Gracie Gómez PA-C Division of Infectious Diseases Available on [employer] Chat History, assessment, and plan discussed with ID attending, Dr. Post [facility] attestation - Today, I am treating the patient for c diff which can cause dehydration, ISRRAEL in the short-term future in the absence of appropriate treatment, as described in the note. - Assessment required an independent historian, additional information obtained from chart review, primary team - Independently interpreted test c diff which shows positive, infection. - Discussed management of c diff with primary team and consulting services. - Reviewed notes by primary team and consulting services to determine appropriate plan of care as in the note. - Estimated Creatinine Clearance: 80.8 mL/min (by C-G formula based on SCr of 1.05 mg/dL).reviewed;antibiotics recommended above are dosed accordingly. - The patient is being intensively monitored for antimicrobial toxicity from vancomycin with the following tests: CBC, CMP. - The following complex inpatient infectious disease services were performed today: Complex antimicrobial therapy counseling and treatment [1] Current Facility-Administered Medications Medication Dose Route Frequency Provider Last Rate Last Admin [Held by provider] apixaban (Eliquis) tablet 5 mg 5 mg Oral BID Evi Reeves MD 5 mg at 09/07/25 0853 cefTRIAXone (Rocephin) 1 g in sodium chloride 0.9% 100 mL IVPB (vial adapter required) 1 g Intravenous q24h Joyce Gunderson MD 220 mL/hr at 09/07/252002 1 g at 09/07/252002 finasteride (Proscar) tablet 5 mg 5 mg Oral Daily Joyce Gunderson MD HYDROcodone-acetaminophen ([place]) 5-325 MG per tablet 5 mg of hydrocodone 5 mg of hydrocodone Oral q6h PRN Jayne Abrams DO 5 mg of hydrocodone at 09/03/252106 lidocaine (Uro-Jet) 2 % gel 1 Application 1 Application Urethral PRN Joyce Gunderson MD 1 Application at 09/08/25 1005 lidocaine (Xylocaine) 2 % solution 5 mL 5 mL Swish & Swallow Before meals & nightly Jadon Rangel MD 5 mL at 09/08/25 0759 magic mouthwash BLM (FIRST-Mouthwash) suspension 15 mL 15 mL Swish & Spit Before meals & nightly Jadon Rangel MD 15 mL at 09/08/25 0759 magnesium sulfate in D5W IVPB 1 g 1 g Intravenous q4h Joyce Gunderson MD 1 g at 09/08/25 0806 melatonin tablet 6 mg 6 mg Oral Nightly PRN Jayne Abrams DO 6 mg at 09/07/252003 nystatin (Mycostatin) 748596 UNIT/ML suspension 500,000 Units 5 mL Swish & Swallow 4x daily Jadon Rangel MD 500,000 Units at 09/08/25 08 ondansetron ODT (Zofran-ODT) disintegrating tablet 8 mg 8 mg Oral q6h PRN Jadon Rangel MD Or ondansetron (Zofran) injection 8 mg 8 mg Intravenous q6h PRN Jadon Rangel MD 8 mg at 09/02/252014 Or ondansetron (Zofran) 4 MG/5ML solution 8 mg 8 mg Oral q6h PRN Jadon Rangel MD pantoprazole (Protonix) EC tablet 40 mg 40 mg Oral Daily before breakfast Jadon Rangel MD 40 mgat 09/08/25 0803 potassium & sodium phosphates (Phos-NaK) 280-160-250 MG packet 2 packet 2 packet Oral With meals & nightly Sheyla Malagon MD 2 packet at 09/08/25 0802 potassium chloride CR (Klor-Con) ER tablet 40 mEq 40 mEq Oral q4h Joyce Gunderson MD 40 mEq at 09/08/25 0803 prochlorperazine (Compazine) tablet 5 mg 5 mg Oral q6h PRN Sheyla Malagon MD Or prochlorperazine (Compazine) suppository 25 mg 25 mg Rectal q12h PRN Sheyla Malagon MD Or prochlorperazine (Compazine) injection 2.5 mg 2.5 mg Intravenous q6h PRN Sheyla Malagon MD 2.5 mg at 09/01/252042 Or prochlorperazine (Compazine) injection 5 mg 5 mg Intramuscular q6h PRN Sheyla Malagon MD prochlorperazine (Compazine) tablet 10 mg 10 mg Oral q6h PRN Evi Reeves MD 10 mg at 08/28/25 0130 rosuvastatin (Crestor) tablet 10 mg 10 mg Oral Daily Evi Reeves MD 10 mg at 09/08/25 0803 sodium bicarbonate tablet 1,300 mg 1,300 mg Oral BID Sheyla Malagon MD 1,300 mg at 09/08/25 0804 sodium chloride ([place]t) 0.65 % nasal spray 1 spray 1 spray Each Nostril PRN Sheyla Malagon MD 1 spray at 09/03/25 1349 tamsulosin (Flomax) 24 hr capsule 0.8 mg 0.8 mg Oral Daily Joyce Gunderson MD 0.8 mg at 09/08/25 0803 Vancomycin HCl 50 MG/ML oral solution 125 mg 125 mg Oral 4x daily Joyce Gunderson MD 125 mg at 09/08/25 0801 [2] Allergies Allergen Reactions Oxycodone Hallucinations Penicillins Unknown - Patient states they do not know rxn details Childhood allergy, thinks it was maybe a rash, but isn't sure * Progress Notes - Taco Russell, RELEASE MANAGER - 09/08/2025 11:00 AM EDT Medical Oncology Consult Follow-Up Note 09/08/25 Patient Care Team: Darius Ken MD as PCP - General (Internal Medicine) Subjective: PT seen resting in bed with at bedside. He reports improvement in diarrhea and worsening abd pain. He does report gross hematuria in bernstein collection chamber. reports urine appearance with less blood . PT denies dysuria. Denies soa, chest pain, palpitations, fever, chills, headaches, dizziness, lightheadedness, vision changes, tinnitus, oral lesions, nvdc, edema, rash, and neuropathy. PMH, Surg History, Social History, Family History and current medications reviewed and unchanged from last encounter or updated as indicated. ROS: 14 point review of systems completed and negative unless stated above. Objective: Visit Vitals BP 108/64 Pulse 83 Temp 36.8 ??C (98.3 ??F) Resp 18 ECO General: Lying/resting comfortably in bed, pale and ill appearing; NAD HEENT: NCAT, PERRLA/EOMI, anicteric; no oral lesions Neck: Supple, no JVD Heart: RRR, no MGR Lungs: CTAB; no rales, rhonchi or wheezes; O2 room air Abdomen: Soft, NTND, + BS : Bernstein in place Extremities: No edema Musculoskeletal: No focal tenderness or deformity Skin: No visible rashes or lesions Neuro: Grossly nonfocal; no localizing deficits of strength, sensation, or mentation Psychiatric: Normal mood and thought content Labs: Labs in last 18 hours CBC WBC 9.88 Hb 7.5 (L) Plt 537 (H) Hct 20.4 (L) ANC 7.77 (H) INR ??, PTT ??, Anti-Xa ?? BMP Na 137 Cl 105 BUN 10 Glu 93 K 3.3 (L) Co2 26 Cr 0.97 Ca 7.4 (L) iCa ?? Mg ??, Phos ?? Lactate ?? LFT AST ?? AlkPhos ?? T Prot ?? ALK ?? Bili ?? Alb ?? D.Bili ?? No results found for: UTPCR No results found for: TSH , FREET4 No results found for: CEA , CA199 , AFP Labs personally reviewed Imaging: As noted in HPI if relevant. Assessment/Plan: Justin Best 70 y.o. male with newly diagnosed adenocarcinoma of the gastroesophageal junction who presented to [facility] on 08/26 with fever, and poor PO intake. Medical oncology consulted for plan of care and management of GE junction adenocarcinoma. #Gastroesophageal junction adenocarcinoma. - Oncologist: Dr. Reina in [facility] - Co-managed with Dr. Kim Marcano with thoracic surgery. 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 Pylori negative NGS pending - Patient expressed wishes to stop chemotherapy and pursue immunotherapy treatment; Plan entered for Nivolumab/Ipilimumab - F/U [facility] 09/13, will re-schedule if needed. #Clostridium difficile infection. - Stool Cdiff PCR toxin +; GDH +; toxin +; EIA interpretation c diff likely - Dificid completed 09/07 - po Vanc started 09/08 - ongoing diarrhea; manage closely #Atrial fibrillation - Currently in sinus rhythm - Continues on Eliquis - Cardiac patch monitor in place - Outpatient Cardiology appt 09/21/25 #Chemo induced N/V - Post-chemotherapy complications of significant nausea & vomiting. - Continue PRN Zofran and Compazine -currently effective #Non-oliguric ISRRAEL with ATN on CKD3 - Creatinine 4.14 at admission - UA negative - Renal US 08/30: R kidney 10.8cm, L kidney 10.4cm. Normal echogenicity. No hydronephrosis, no calculi. - Bernstein placed for urinary retention - Nephology consulted - creatinine back to baseline #Anemia of chronic disease - related to cancer and cancer treatment - hgb 8.1; hct 25.1 on 09/06 - Cont to monitor; no active s/s of bleeding - transfuse if hgb <7 or hct <22 #Gross Hematuria - PT c/o painless hematuria, that was noticed in bernstein collection canister. - Eliquis -hold - Urology consult Plan: - Urology consulted - Continue PRN Zofran and Compazine -currently effective - Continue po Vanc for c-diff (started 09/08) - Contact Precautions required for c-diff and importance of maintaining hand hygiene to prevent itsspread. - Advised to keep the cardiology appointment as atrial fibrillation - Stage/Grade -pending staging scans - NGS pending - F/U [facility] 09/13 Medical oncology will continue to follow. Please call with additional questions or concerns. 35 minutes was spent on this encounter; including preparing to see the patient, which involved review/interpretation of diagnostics and reports; obtaining and/or reviewing separately obtained history; performing appropriate physical exam; ordering/scheduling medications, tests or procedures; communicating findings and counseling/educating the patient, family and/or caregiver; documentation in EMR; and care coordination. The selection, dosing and administration of anti-cancer agents and the management of associated toxicities requires complex medical decision making and intensive monitoring for toxicity. Modifications of drug dose and schedule as well as the initiation of supportive care interventions are often necessary because of expected toxicities. This varies individually based on patient tolerability, priortreatments and comorbidities/risk status. Monitoring typically entails labs, imaging and/or other diagnostics, utilizing a healthcare delivery team experienced in the use of anticancer agents and themanagement of associated toxicities in patients with cancer. Attending physician previously developed plan of care, which I discussed with the patient, whom I saw independently. The patient verbalized understanding and agrees with plan. All questions answered to their satisfaction. Encouraged to call should other questions/concerns arise. Taco Russell APRN Division of Medical Oncology [facility] * Care Plan - Didi Goodson RN - 09/08/2025 10:47 AM EDT Problem: Adult Inpatient Plan of Care Goal: Patient-Specific Goal (Individualized) Outcome: Ongoing, Progressing Goal: Optimal Comfort and Wellbeing Outcome: Ongoing, Progressing Intervention: Monitor Pain and Promote Comfort Flowsheets (Taken 09/04/2025 0735 by Willis Tracy RN) Pain Management Interventions: care clustered emotional support pain management plan reviewed with patient/caregiver quiet environment facilitated therapeutic presence Intervention: Provide Person-Centered Care Flowsheets (Taken 09/04/20251815 by Willis Tracy RN) Trust Relationship/Rapport: care explained choices provided emotional support provided empathic listening provided questions answered questions encouraged reassurance provided thoughts/feelings acknowledged Problem: Pain Acute Goal: Optimal Pain Control and Function Outcome: Ongoing, Progressing Intervention: Optimize Psychosocial Wellbeing Flowsheets Taken 09/08/2025 1044 by Didi Goodson RN Supportive Measures: self-care encouraged Diversional Activities: smartphone Taken 09/04/20251815 by Willis Tracy RN Spiritual Activities Assistance: affirmation provided Intervention: Develop Pain Management Plan Flowsheets (Taken 09/04/2025 0735 by Willis Tracy RN) Pain Management Interventions: care clustered emotional support pain management plan reviewed with patient/caregiver quiet environment facilitated therapeutic presence Intervention: Prevent or Manage Pain Flowsheets (Taken 09/04/20251815 by Willis Tracy RN) Bowel Elimination Promotion: adequate fluid intake promoted commode/bedpan at bedside privacy promoted Sleep/Rest Enhancement: family presence promoted natural light exposure provided Medication Review/Management: medications reviewed Problem: Nausea and Vomiting Goal: Nausea and Vomiting Relief Outcome: Ongoing, Progressing Intervention: Prevent and Manage Nausea and Vomiting Flowsheets Taken 09/08/2025 1044 by Didi Goodson RN Nausea/Vomiting Interventions: stimuli minimized Oral Care: mouth swabbed Taken 09/04/20251815 by Willis Tracy RN Environmental Support: calm environment promoted rooming-in facilitated Problem: Electrolyte Imbalance Goal: Electrolyte Balance Outcome: Ongoing, Progressing Intervention: Monitor and Manage Electrolyte Imbalance Flowsheets (Taken 09/04/20251815 by Willis Tracy RN) Fluid/Electrolyte Management: electrolyte supplement adjusted intravenous fluids adjusted Problem: Infection Goal: Absence of Infection Signs and Symptoms Outcome: Ongoing, Progressing Intervention: Prevent or Manage Infection Flowsheets Taken 09/08/2025 0800 by Didi Goodson RN Isolation Precautions: contact Taken 09/04/20251815 by Willis Tracy RN Infection Management: aseptic technique maintained Fever Reduction/Comfort Measures: lightweight bedding lightweight clothing Problem: Skin Injury Risk Increased Goal: Skin Health and Integrity Outcome: Ongoing, Progressing Intervention: Optimize Skin Protection Flowsheets (Taken 09/08/2025 0800) Activity Management: activity adjusted per tolerance activity encouraged Intervention: Promote and Optimize Oral Intake Flowsheets Taken 09/08/2025 1044 by Didi Goodson RN Oral Nutrition Promotion: physical activity promoted Taken 09/04/20251815 by Willis Tracy RN Nutrition Interventions: food preferences provided * Consults - Margie Atkins DO - 09/08/2025 8:32 AM EDTAssociated Order(s): Inpatient consult to Urology Inpatient consult to Urology Consult performed by: Margie Atkins DO Consult ordered by: Joyce Gunderson MD [facility] Urology Consult Note 09/08/25 Service Requesting Consultation: Hospital Medicine CC: Difficult Bernstein Catheter Placement HPI: Justin Best is a 70 y.o. male with a past medical history of recently diagnosed AF and recently started on Eliquis, poorly differentiated GE junction adenocarcinoma, hypertension, and hyperlipidemia, presenting with fever, worsening epigastric pain, and poor oral intake following recent chemotherapy who is admitted to hospital medicine. Urology was consulted for gross hematuria and bernstein not draining due to blood clots. A 16 Fr Coude catheter was placed by nursing staff, a day or 2 ago per staff because he has been intermittently inretention this sounds as if it is the 2nd Bernstein that has been placed during this hospital stay. No reported bladder scans of degree of retention are recorded nor known to staff. This current 16 [place] Islander coude was placed a day or 2 ago due to suspected retention and was draining without difficulty however within the past 24 hours patient developed gross hematuria that has now clotted off catheter and is no longer draining. Eliquis has been stopped by primary team due to hematuria. The patient is noted to be AF and HDS. The patient's labs are notable for WBC 9.88, hgb 6.5, cr 0.97. UA was notable for ketonuria, proteinuria, large blood, positive leukocytes, positive nitrites, and >50 RBC. Urine culture is pending. Other parts of UA are unable to be interpreted due to quantity of red blood cells. The patient endorses decreased stream, hesitancy, and post void dribbling at baseline. They are currently taking Flomax 0.4mg daily., but this prescribed by his PCP and he has never seen a urologist. Past Medical History: reviewed Past Medical History[1] Past Surgical History: reviewed Surgical History[2] Family History: reviewed Family History[3] Social History: reviewed Social History[4] Outpatient Medications: Current Outpatient Medications Medication Instructions acetaminophen (TYLENOL) 500 mg, Every 6 hours PRN alfuzosin (UROXATRAL) 10 mg, Daily apixaban (ELIQUIS) 5 mg, Oral, 2 times daily diphenhydrAMINE (BENADRYL) 25 mg, Nightly PRN famotidine (PEPCID) 20 mg, Daily guaiFENesin (ROBITUSSIN) 200 mg, Every 4 hours PRN loperamide (IMODIUM A-D) 2 mg, Every 2 hour PRN oxyCODONE-acetaminophen (Percocet) 5-325 MG tablet 1 tablet, Oral, Every 6 hours PRN pantoprazole (PROTONIX) 40 mg, Oral, Daily, Do not crush, chew, or split. rosuvastatin (CRESTOR) 10 mg, Daily PHYSICAL EXAM: Temp: [36.7 ??C (98.1 ??F)-37.2 ??C (98.9 ??F)] 36.7 ??C (98.1 ??F) Heart Rate: [82-96] 84 Resp: [16] 16 BP: (102-120)/(62-72) 120/71 SpO2: [93 %-97 %] 96 % GEN: NAD HEENT: NCAT, EOMI RESP: Equal bilateral chest rise, normal work of breathing CV: Regular rate, appears well perfused ABD: Nondistended : 16Fr coude catheter in place, with clots in tubing, not draining EXT: No gross deformities MSK: Full ROM in BL UE NEURO: No focal deficits, alert and oriented PSYCH: Normal mood and affect LABS: Results from last 7 days Lab Units 09/08/25 0508 WBC 10*3/uL 9.88 HEMOGLOBIN g/dL 6.5* HEMATOCRIT % 20.4* PLATELETS 10*3/uL 537* Results from last 7 days Lab Units 09/08/25 0508 SODIUM mmol/L 137 POTASSIUM mmol/L 3.3* CHLORIDE mmol/L 105 CO2 mmol/L 26 BUN mg/dL 10 CREATININE mg/dL 0.97 EGFR mL/min/1.73m*2 83.5 GLUCOSE mg/dL 93 CALCIUM mg/dL 7.4* Results from last 7 days Lab Units 09/07/25 1735 COLOR UA Red SPEC GRAV U 1.015 PH UA 8.0 PROTEIN UR mg/dL >=300* GLUCOSE UA mg/dL Negative KETONES UA mg/dL 15* LEUKOCYTES UA Moderate* NITRITE UA Positive* RBC, URINE /HPF >50* WBC, URINE /HPF Unable to estimate due to obscuring RBC's (UNERBC) SQUAMOUS /HPF Unable to estimate due to obscuring RBC's (UNERBC) BACTERIA UR HPF Unable to estimate due to obscuring RBC's (UNERBC) Imaging: I have personally reviewed the imaging below: SANTINO 08/30/25: Bladder Partially decompressed without obvious abnormality. No hydronephrosis Hospital Problem List: Principal Problem: Sepsis (CMS/HCC) Active Problems: Neutropenic fever (CMS/HCC) Procedure: 10 mL syringe was attached to the 16 Cook Islander coude catheter and deflated. The catheter was removed without difficulty. After this The patient was sterilely prepped and draped in usual fashion. An 22 Fr Bernstein catheter was advanced into the urethra. The bernstein was advanced easily into the bladder with confirmation of return of urine. The catheter was hubbed to the urethral meatus and the balloon was filled with 10ml of sterile water. The catheter was attached to a Bernstein catheter drainage bag and there was immediate return of approximately 900ml of urine. Following this drainage bag was detached from bernstein and approximately 200 cc of normal saline was flushed without difficulty and returned approximately 15 cc of dark clot. Catheter was flushed until Bernstein was draining clear pink. Bernstein was then reattached to drainage bag. Bernstein was draining well when provider left the room. Assessment: Justin Best is a 70 y.o. male with a past medical history of recently diagnosed AFib and recently started on Eliquis, poorly differentiated GE junction adenocarcinoma, hypertension, and hyperlipidemia, presenting with fever, worsening epigastric pain, and poor oral intake following recent chemotherapy who is admitted to hospital medicine. He endorses baseline LUTS including decreased stream, hesitancy, and post void dribbling for many years. They are currently taking Flomax0.4mg daily as a home med, but this prescribed by his PCP and he has never seen a urologist. Urology was consulted for gross hematuria urinary retention and bernstein not draining due to blood clots. A 16 Fr Coude catheter was placed by nursing staff, a day or 2 ago per staff because he has been intermittently in retention. It sounds as if it is the 2nd or 3rd Bernstein that has been placed during thishospital stay due to multiple trial of voids that have failed. No reported bladder scans of degree of retention are recorded nor known to staff. Within the past 24 hours patient developed gross hematuria that has now clotted off catheter and is no longer draining. Eliquis has been stopped by primary team due to hematuria. Patient is AF and HDS. WBC 9.88, hgb 6.5, cr 0.97. UA was notable for ketonuria, proteinuria, large blood, positive leukocytes, positive nitrites, and >50 RBC. Other parts of UA are unable to be interpreted due to quantity of red blood cells. Urine culture is pending. The patient was found to have a 16 Cook Islander coude catheter that was clotted off and not draining. A 22 [place] Islander Bernstein catheter was placed without difficulty with immediate return of 900 mL of priscila/pink clear urine. 15 cc of old clot was irrigated from the bladder. Plan: - Start Flomax 0.4mg daily - Start Finasteride 5mg daily for prostatic bleeding - Can consider holding anticoagulation per primary team - Monitor for postobstructive diuresis - Trial of void per primary team. Kayenta time for trial of void is when the patient has reached mobility baseline or is 48 hours from discharge. Trial of void can be attempted at rehab facilities if the patient is discharged to a rehab facility. On day of trial of void please remove catheter at 6:00AM to allow time for urology to assist with replacement if needed. Would highly recommend obtainingPVRs after/if Bernstein catheter is removed. Of note Bernstein catheters must be exchanged after 4-6 weeks and cannot remain in place longer than this. - Catheter was placed without issue. Nursing should attempt further catheter placements before urology is consulted, however in the setting of hematuria would recommend a Bernstein size large enough to drain clots such as a 20 or 22 Cook Islander, and avoid a 14 nor 16 [place] Islander. - Reach out to urology provider second floor operator with question or concerns [1] Past Medical History: Diagnosis Date Blood [...] use: Never Drug use: Never Cosigned by Yanely Rock DO at 09/09/2025 3:59 PM EDT Associated attestation - Yanely Rock DO - 09/09/2025 3:59 PM EDT I saw and evaluated the patient. I discussed the case with the resident/fellow and agree with the findings and plan as documented. 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 Hematuria could be secondary to bernstein traumavs. Prostatic bleeding. Agree with starting finasteride and continuing home alpha lisa. If patient unable to void after catheter removal recommend replacing catheter and can follow up out patient to discuss further management of his enlarged prostate. * Progress Notes - Joyce Gunderson MD - 09/08/2025 7:16 AM EDT Subjective Seen at bedside with his sister this morning. Patient reports not having slept last night due to ongoing gross hematuria, reports having minimal lower quadrant abdominal pain. We went over possible reasons for the hematuria like UTI and the need for antibiotic. Discussed about involving Urology forirrigation of the Bernstein since there are clots now and he understands. His diarrhea has significantly improved on the by mouth vancomycin. Questions and concerns addressed. Review of Systems Constitutional: Positive for fatigue. Gastrointestinal: Positive for diarrhea. All other systems reviewed and are negative. Objective Vitals Temp: [36.7 ??C (98.1 ??F)-37.2 ??C (98.9 ??F)] 36.8 ??C (98.2 ??F) Heart Rate: [82-96] 86 Resp: [16] 16 BP: (102-112)/(62-72) 109/70 Physical Exam Constitutional: Appearance: Normal appearance. HENT: Mouth/Throat: Mouth: Mucous membranes are moist. Eyes: Pupils: Pupils are equal, round, and reactive to light. Cardiovascular: Rate and Rhythm: Normal rate. Pulmonary: Effort: Pulmonary effort is normal. Breath sounds: Normal breath sounds. Abdominal: General: Abdomen is flat. Palpations: Abdomen is soft. Musculoskeletal: Right lower leg: Edema present. Left lower leg: Edema present. Neurological: Mental Status: He is alert and oriented to person, place, and time. Assessment & Plan Sepsis (CMS/HCC) Neutropenic fever (CMS/HCC) Justin Best is a 69-year-old male with a known medical history of Poorly differentiated GEjunction adenocarcinoma, hypertension, and hyperlipidemia, Recently diagnosed AF (On Eliquis), presenting with fever, worsening epigastric pain, and poor oral intake following recent chemotherapy. #Clostridium difficile infection/ diarrhea in the setting of neutropenia: Patient is admitted to hospital medicine for Fever in Immunocompromised state and neutropenia. C. Diff toxin and DNA positive. Completed course of fidaxomicin 200 mg PO BID for 29 doses, last dose 09/07/25. ID recs appreciated, started on PO vancomycin 09/07/25. Plan for 10 days, end date 09/16/2025 # Gross hematuria-likely related to UTI, complicated; holding Eliquis, started on ceftriaxone for aminimum of 5 days based on preliminary UA review, nurse irrigation was requested but has clot, unable to flush and hence Urology consulted to assist with the same. Hemoglobin monitoring q.6 H, noted to be less than 7 today and hence transfusing 1 PRBC. #Adenocarcinoma of GE junction & Worsening Cancer Related Pain & Inability to tolerate PO: Patient follows up with [facility] team. Patient is unable to tolerate PO diet (even liquids). Alsohis epigastric pain is worsening and uncontrolled. Epigastric tenderness +. 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 Surgery planningunderway- 6-12wks from now Oxycodone 5 mg x Q6 PRN. #Hypokalemia, hypophosphatemia Monitored daily and repleting #Atrial Fibrillation: Hold Eliquis, heart rate well controlled, not on any rate-controlling medication Telemetry FENGI: Regular diet DVT prophylaxis: Eliquis apixaban 5 mg BID GI prophylaxis: Protonix 40 mg by mouth daily before breakfast Code status: Full code Disposition: pt ot rec home w assist and walker. Medically Ready for Discharge:Anticipated in 2-4 Days * Care Plan - Loni Wright RN - 09/07/2025 11:18 PM EDT Problem: Adult Inpatient Plan of Care Goal: Patient-Specific Goal (Individualized) Outcome: Ongoing, Progressing Flowsheets (Taken 09/07/20251999) Patient/Family-Specific Goals (Include Timeframe): patient will report adequate pain control Individualized Care Needs: pain control Anxieties, Fears or Concerns: pain control Goal: Optimal Comfort and Wellbeing Outcome: Ongoing, Progressing Intervention: Monitor Pain and Promote Comfort Flowsheets (Taken 09/04/2025 07 by Willis Tracy RN) Pain Management Interventions: care clustered emotional support pain management plan reviewed with patient/caregiver quiet environment facilitated therapeutic presence Intervention: Provide Person-Centered Care Flowsheets (Taken 09/04/20251815 by Willis Tracy RN) Trust Relationship/Rapport: care explained choices provided emotional support provided empathic listening provided questions answered questions encouraged reassurance provided thoughts/feelings acknowledged Problem: Pain Acute Goal: Optimal Pain Control and Function Outcome: Ongoing, Progressing Intervention: Optimize Psychosocial Wellbeing Flowsheets (Taken 09/04/20251815 by Willis Tracy RN) Supportive Measures: active listening utilized self-care encouraged verbalization of feelings encouraged Diversional Activities: smartphone television Spiritual Activities Assistance: affirmation provided Intervention: Develop Pain Management Plan Flowsheets (Taken 09/04/2025734 by Willis Tracy RN) Pain Management Interventions: care clustered emotional support pain management plan reviewed with patient/caregiver quiet environment facilitated therapeutic presence Intervention: Prevent or Manage Pain Flowsheets Taken 09/04/20251815 by Willis Tracy RN Sensory Stimulation Regulation: quiet environment promoted care clustered Bowel Elimination Promotion: adequate fluid intake promoted commode/bedpan at bedside privacy promoted Sleep/Rest Enhancement: family presence promoted natural light exposure provided Medication Review/Management: medications reviewed Taken 09/01/2025 1151 by Giovanna Washington RN Complementary Therapy: music therapy provided Problem: Nausea and Vomiting Goal: Nausea and Vomiting Relief Outcome: Ongoing, Progressing Intervention: Prevent and Manage Nausea and Vomiting Flowsheets Taken 09/07/20251999 by Loni Wright RN Oral Care: mouth wash rinse Taken 09/04/20251815 by Willis Tracy RN Fluid/Electrolyte Management: electrolyte supplement adjusted intravenous fluids adjusted Nausea/Vomiting Interventions: nausea triggers minimized Environmental Support: calm environment promoted rooming-in facilitated Problem: Electrolyte Imbalance Goal: Electrolyte Balance Outcome: Ongoing, Progressing Intervention: Monitor and Manage Electrolyte Imbalance Flowsheets (Taken 09/04/20251815 by Willis Tracy RN) Fluid/Electrolyte Management: electrolyte supplement adjusted intravenous fluids adjusted Problem: Infection Goal: Absence of Infection Signs and Symptoms Outcome: Ongoing, Progressing Intervention: Prevent or Manage Infection Flowsheets Taken 09/07/20251999 by Loni Wright RN Isolation Precautions: protective Taken 09/04/20251815 by Willis Tracy RN Infection Management: aseptic technique maintained Fever Reduction/Comfort Measures: lightweight bedding lightweight clothing Problem: Skin Injury Risk Increased Goal: Skin Health and Integrity Outcome: Ongoing, Progressing Intervention: Optimize Skin Protection Flowsheets Taken 09/07/20251999 by Loni Wright RN Activity Management: bedrest Taken 09/04/20251999 by Ana Cristina Yo Head of Bed (HOB) Positioning: HOB at 30-45 degrees Taken 09/04/20251815 by Willis Tracy RN Pressure Reduction Techniques: frequent weight shift encouraged heels elevated off bed Pressure Reduction Devices: positioning supports utilized Skin Protection: incontinence pads utilized protective footwear used Intervention: Promote and Optimize Oral Intake Flowsheets (Taken 09/04/20251815 by Willis Tracy RN) Oral Nutrition Promotion: calorie-dense liquids provided Nutrition Interventions: food preferences provided * Consults - Ashlye Clemons RD - 09/07/2025 2:32 PM EDT Adult Nutrition Evaluation Note Justin Best 70 y.o. 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 on 08/26 for profound diarrhea and poor PO intake. C.diff positive. Nephrology consulted on 08/31 for ISRRAEL on CKD. Past medical/ surgical history: Past Medical History[1] Surgical History[2] Additional comments:Visited with pt, sister and [place] this afternoon. Pt reports continued diarrhea, pt reports one episode every hour. Pt was started on new medication today for cdiff and [place] hopes pt improves within next 24 hours. Pt reports he is afraid to eat much due to diarrhea but is drinking 3 boost VHCs daily along with broth. Discussed importance of nutrition and hydration with him and listed ideal foods for him to consume; pt agreeable to trying yogurt and dry cereal for his dinner. Encouraged at least 8 cups fluid daily, brought him some SF Gatorade packs that he enjoyed. He is currently not on IVF. Vitals and Basic Assessment: BP: 111/65 Temp: 36.8 ??C (98.3 ??F) Oxygen Therapy: None (Room air) [place] Coma Scale Score: 15 John Scale Score: 19 Most Recent BM Date: 09/06/25 GI Symptoms: Diarrhea Edema: Right upper extremity, Left upper extremity, Right lower extremity, Left lower extremity Allergies: NKFA Medications: Current Medications[3] Labs: Labs in last 18 hours CBC WBC 10.37 (H) Hb 7.0 (L) Plt 582 (H) Hct 21.3 (L) ANC 8.31 (H) INR ??, PTT ??, Anti-Xa ?? BMP Na 136 Cl 105 BUN 11 Glu 93 K 3.5 (L) Co2 26 Cr 1.05 Ca 7.3 (L) iCa ?? Mg 1.4 (L), Phos 2.1 (L) Lactate ?? LFT AST ?? AlkPhos ?? T Prot ?? ALK ?? Bili ?? Alb ?? D.Bili ?? Anthropometrics: Height: 182.9 cm (6') Weight: 88.5 kg (195 lb 1.7 oz) BMI (Calculated): 26.46 Weight Evaluation: Overweight (BMI 25-29.9) Weight History: UBW ~200# [place] Body Weight (kg): 80.9 Percent [place] Body Weight: 107 Wt Readings from Last 10 Encounters: 09/05/25 88.5 kg (195 lb 1.7 oz) 08/20/25 86.6 kg (190 lb 14.7 oz) 08/18/25 89.4 kg (197 lb 1.5 oz) 08/18/25 89.3 kg (196 lb 13.9 oz) 08/15/25 88.8 kg (195 lb 12.3 oz) 08/05/25 93.7 kg (206 lb 9.1 oz) 08/03/25 96.9 kg (213 lb 10 oz) 07/29/25 92 kg (202 lb 13.2 oz) 07/29/25 91.6 kg (202 lb) 07/27/25 92.3 kg (203 lb 7.8 oz) Estimated Needs: Kcal/ K-30 Kcal Provided: 1774-3032 Kcal Needs Based On: Admit weight Gm Protein/ Kg : 1.0-1.2 (ISRRAEL on CKD) Protein Provided: 104 Protein Needs Based On: Admit weight Current Nutrition Intake: Diet Supplements: Boost Very High Calorie (TID) Diet Order: Adult Diet Diet Texture: Regular Modified Calorie/ Protein: (-) Adult GI: (-) Percent Meals Eaten (%): nothing documented recently Diet Experience and Nutrition History: Diet Education Provided: Will monitor Pertinent home medications: PRN: zofran, compazine Nutrition Focused Physical Exam: Physical exam performed on (date): 09/07/25 [place] (muscles): Mild Clavicle (muscle): Mild Shoulder (muscle): Mild Energy Intake: < 75% x 1 month Weight Loss: 5% weight loss x 1 month Assessment of Malnutrition: Malnutrition Identified: Yes Meets Criteria For: Severe malnutrition In Context Of: Chronic illness/ injury Based On: Severely reduced energy intake, Severe weight loss Present on Admission: Yes Nutrition Problem: Inadequate energy intake related to diarrhea as evidenced by poor PO intake, 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 Status of Nutrition Diagnosis: ongoing Nutrition Interventions and Recommendations: - Regular diet - [place] Boost [facility] TID - Encouraged adequate hydration and temporary use of electrolyte drink like SF Gatorade Nutrition Monitoring and Goals: - Consume > 75% of meals - Prevent weight loss Acuity Level: [address] [1] Past Medical History: Diagnosis Date Blood urine 2023 Esophageal cancer june 2025 Hypertension 1999 Kidney stone Skin cancer 2004 Stomach cancer (CMS/HCC) june 2025 [2] Past Surgical History: Procedure Laterality Date APPENDECTOMY 2020 BACK SURGERY 2001 CHOLECYSTECTOMY 1985 COLONOSCOPY 2023 GALLBLADDER SURGERY 1998 [3] Current Facility-Administered Medications: apixaban (Eliquis) tablet 5 mg, 5 mg, Oral, BID, Dustin, Berger W, MD, 5 mg at 09/07/25 0853 HYDROcodone-acetaminophen ([place]) 5-325 MG per tablet 5 mg of hydrocodone, 5 mg of hydrocodone, Oral, q6h PRN, AbramsJaquelinein M, DO, 5 mg of hydrocodone at 09/03/25 2107 lidocaine (Xylocaine) 2 % solution 5 mL, 5 mL, Swish & Swallow, Before meals & nightly, Jadon Rangel MD, 5 mL at 09/07/25 1257 magic mouthwash BLM (FIRST-Mouthwash) suspension 15 mL, 15 mL, Swish & Spit, Before meals &nightly, Jadon Rangel MD, 15 mL at 09/07/25 1257 melatonin tablet 6 mg, 6 mg, Oral, Nightly PRN, Jayne Abrams M, DO, 6 mg at 09/06/25 204 nystatin (Mycostatin) 405412 UNIT/ML suspension 500,000 Units, 5 mL, Swish & Swallow, 4x daily,Jadon Rangel MD, 500,000 Units at 09/07/25 1435 ondansetron ODT (Zofran-ODT) disintegrating tablet 8 mg, 8 mg, Oral, q6h PRN OR ondansetron (Zofran) injection 8 mg, 8 mg, Intravenous, q6h PRN, 8 mg at 09/02/252014 OR ondansetron (Zofran) 4 MG/5ML solution 8 mg, 8 mg, Oral, q6h PRN, Jadon Rangel MD pantoprazole (Protonix) EC tablet 40 mg, 40 mg, Oral, Daily before breakfast, Jadon Rangel MD, 40 mg at 09/07/25 0853 potassium & sodium phosphates (Phos-NaK) 280-160-250 MG packet 2 packet, 2 packet, Oral, With meals & nightly, Sheyla Malagon MD, 2 packet at 09/07/25 1257 prochlorperazine (Compazine) tablet 5 mg, 5 mg, Oral, q6h PRN OR prochlorperazine (Compazine) suppository 25 mg, 25 mg, Rectal, q12h PRN OR prochlorperazine (Compazine) injection 2.5 mg, 2.5 mg, Intravenous, q6h PRN, 2.5 mg at 09/01/252042 OR prochlorperazine (Compazine) injection 5 mg, 5 mg, Intramuscular, q6h PRN, Sheyla Malagon MD prochlorperazine (Compazine) tablet 10 mg, 10 mg, Oral, q6h PRN, Evi Reeves MD, 10 mg at 08/28/25 0130 rosuvastatin (Crestor) tablet 10 mg, 10 mg, Oral, Daily, Evi Reeves MD, 10 mg at 09/07/25 0854 sodium bicarbonate tablet 1,300 mg, 1,300 mg, Oral, BID, Sheyla Malagon MD, 1,300 mg at 09/07/25 0853 sodium chloride ([place]) 0.65 % nasal spray 1 spray, 1 spray, Each Nostril, PRN, Sheyla Malagon MD,1 spray at 09/03/25 1349 tamsulosin (Flomax) 24 hr capsule 0.8 mg, 0.8 mg, Oral, Daily, Joyce Gunderson MD, 0.8 mg at 09/07/25 0853 Vancomycin HCl 50 MG/ML oral solution 125 mg, 125 mg, Oral, 4x daily, Joyce Gunderson MD, 125 mg at 09/07/25 1257 * Consults - Gracie Gómez PA - 09/07/2025 10:47 AM EDTAssociated Order(s): Inpatient consult to Infectious Diseases Inpatient consult to Infectious Diseases Consult performed by: Gracie Gómez PA Consult ordered by: Joyce Gunderson MD Reason for consult: C.diff positive, on fidaxomicin, completes course today but still has diarrhea every hour, pls evaluate and advise regarding further management TRANSPLANT INFECTIOUS DISEASE INPATIENT CONSULT 09/07/2025 HPI OBTAINED FROM: [X] Patient [ ] Family [ ] Friend [ ] Time Study Observer [X] Medical records HISTORY OF PRESENT ILLNESS: Justin Best is a 70 y.o. 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 He was recent admitted at 08/13/25 - 08/15/2025 with vomiting and diarrhea. CT at OSH noted pancolitis. At this time, c diff with positive GDH, negative toxin, representing colonization. Since discharge, he had continued abdominal pain and worseningintake. Ultimately, he presented to [facility] where he was found to have neutropenic fever. CT A/P with reported pancolitis. He was transferred to for further management. On admission to , he was febrile to 102.3F, originally neutropenic with ANC 710 but since has recovered count with WBC peaking at 23 on 08/31/25. Blood cultures were NGTD. C diff was positive. He was started on cefepime on admission but has been off since 08/28. He was started on fidaxomicin 08/28/25, today is day 10. He reports that after his admission in early August, he still had diarrhea but it acutely worsenedjust prior to admission. He notes this is his first episode of c diff. He feels that his diarrhea has not improved at all and he continues to have watery diarrhea every hour. He is unable to make it to the bedside commode. Denies any abdominal pain. Appetite has improved slightly but diet currentlyconsists of broth and boost. ROS: 14 point ROS was reviewed and negative except as detailed above. PAST MEDICAL HISTORY: Past Medical History[1] PAST SURGICAL HISTORY: Surgical History[2] ALLERGIES: Allergies[3] HOME MEDICATIONS: Prior to Admission medications Medication Sig Start Date End Date Taking? Authorizing Provider acetaminophen (Tylenol) 500 MG tablet Take 1 tablet by mouth every 6 hours as needed for pain or fever. Yes Provider, Historical alfuzosin (Uroxatral) 10 MG 24 hr tablet Take 1 tablet by mouth daily. 06/23/24 Yes Provider, Historical apixaban (Eliquis) 5 MG tablet Take 1 tablet by mouth 2 times a day. 08/15/25 09/14/25 Yes Ana Rosa Fields MD diphenhydrAMINE (Benadryl) 25 MG tablet Take 1 tablet by mouth at night as needed for itching. Yes Provider, Historical famotidine (Pepcid) 20 MG tablet Take 1 tablet by mouth daily. Yes Provider, Historical fidaxomicin (Dificid) 200 MG tablet Take 1 tablet by mouth 2 times a day for 8 days. 08/29/25 09/06/25 Yes Jadon Rangel MD guaiFENesin (Robitussin) 100 MG/5ML solution Take 10 mL by mouth every 4 hours as needed for cough.Yes Provider, Historical loperamide (Imodium A-D) 2 MG tablet Take 1 tablet by mouth every 2 hours as needed for diarrhea. MAX 8 tablets daily Yes Provider, Historical pantoprazole (Protonix) 40 MG EC tablet Take 1 tablet by mouth daily. Do not crush, chew, or split.08/15/25 09/14/25 Yes Ana Rosa Fields MD rosuvastatin (Crestor) 10 MG tablet Take 1 tablet by mouth daily. 06/23/24 Yes Provider, Historical oxyCODONE-acetaminophen (Percocet) 5-325 MG tablet Take 1 tablet by mouth every 6 hours as needed for severe pain. Patient not taking: Reported on 08/27/2025 08/10/25 09/09/25 Aristides Reina MD CURRENT MEDICATIONS: Current Medications[4] SOCIAL HISTORY: Social History[5] FAMILY HISTORY: Family History[6] PHYSICAL EXAMINATION: GEN: ill appearing, tearful, in NAD SKIN: warm, well-perfused, no rashes or lesions on exposed skin EYES: sclera anicteric, EOMI HENT: NCAT, mmm, neck supple, full ROM CHEST: atraumatic, symmetric chest rise HEART: RRR LUNGS: unlabored on RA GI: non distended, tender in suprapubic area but rest of abdomen is soft and non tender VASC: no cyanosis MSK: no obvious deformity, full ROM NEURO: A&OX3, no focal neurologic deficits PSYCH: appropriate mood and affect VITAL SIGNS: Patient Vitals for the past 24 hrs: BP Temp Temp src Pulse Resp SpO2 09/07/25 0739 111/64 36.7 ??C (98.1 ??F) Oral 89 16 96 % 09/07/25 0417 107/64 36.9 ??C (98.4 ??F) Oral 91 16 95 % 09/06/25 2306 118/69 37.1 ??C (98.8 ??F) Oral 97 16 96 % 09/06/252001 116/71 36.8 ??C (98.3 ??F) Oral 96 16 97 % 09/06/25 1658 112/71 36.8 ??C (98.3 ??F) Oral 90 16 97 % LABS: Labs in last 18 hours CBC WBC 10.37 (H) Hb 7.0 (L) Plt 582 (H) Hct 21.3 (L) ANC 8.31 (H) INR ??, PTT ??, Anti-Xa ?? BMP Na 136 Cl 105 BUN 11 Glu 93 K 3.5 (L) Co2 26 Cr 1.05 Ca 7.3 (L) iCa ?? Mg 1.4 (L), Phos 2.1 (L) Lactate ?? LFT AST ?? AlkPhos ?? T Prot ?? ALK ?? Bili ?? Alb ?? D.Bili ?? Patient records reviewed and pertinent findings outlined below. IMAGING/STUDIES: US Renal Complete Result Date: 08/30/2025 Impression: No hydronephrosis XR Chest 2 Views Result Date: 08/26/2025 Impression: No acute focal airspace consolidation. ANTIMICROBIAL REVIEW: Fidaxomicin 08/28 - present Cefepime 08/26 - 08/28 MICROBIOLOGY: 08/26/25 gi panel: negative 08/26/25 ova and parasite: negative 08/26/25 c diff: positive 08/26/25 blood cultures: NGTD ASSESSMENT: Justin Best is a 70 y.o. 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 Initially presented to OSH with these symptoms with CT A/P reporting pancolitis. He was transferred to for further care. On admission, he was febrile and tested positive for c diff. He regained his counts and mounted a response with WBC peak on 10/22/25 at 25k. He was started on fidaxomicin on 08/28 for his first episode of non fulminant c diff.Since that time, he has continued to have watery diarrhea every hour with no improvement. ID consulted for recommendations. Given he has not had any improvement on fidaxomicin, would switch to PO vancomycin. Could also consider scheduled immodium if we see a little improvement. Low concern for fulminant c diff at this time as abdominal exam was benign and WBC/fevers have improved. PROBLEM LIST Non fulminant c difficile infection Colitis Neutropenia, resolved ISRRAEL, resolved GE junction adenocarcinoma on chemotherapy RECOMMENDATIONS: - Stop fidaxomicin - Start PO vancomycin 125mg 4 times per day - If we see some improvement tomorrow, could consider scheduled immodium to assist with symptom management Thank you for allowing us to participate in this patient's care. ID will follow. Gracie Gómez PA-C Division of Infectious Diseases Available on [employer] Chat History, assessment, and plan discussed with ID attending, Dr. Post [facility] attestation - Today, I am treating the patient for c diff which can cause dehydration, ISRRAEL in the short-term future in the absence of appropriate treatment, as described in the note. - Assessment required an independent historian, additional information obtained from chart review, primary team - Independently interpreted test c diff which shows positive, infection. - Discussed management of c diff with primary team and consulting services. - Reviewed notes by primary team and consulting services to determine appropriate plan of care as in the note. - Estimated Creatinine Clearance: 80.8 mL/min (by C-G formula based on SCr of 1.05 mg/dL).reviewed;antibiotics recommended above are dosed accordingly. - The patient is being intensively monitored for antimicrobial toxicity from vancomycin with the following tests: CBC, CMP. - The following complex inpatient infectious disease services were performed today: Complex antimicrobial therapy counseling and treatment [1] Past Medical History: Diagnosis Date Blood urine 2023 Esophageal cancer june 2025 Hypertension 1999 Kidney stone Skin cancer 2004 Stomach cancer (CMS/HCC) june 2025 [2] Past Surgical History: Procedure Laterality Date APPENDECTOMY 2020 BACK SURGERY 2001 CHOLECYSTECTOMY 1985 COLONOSCOPY 2023 GALLBLADDER SURGERY 1998 [3] Allergies Allergen Reactions Oxycodone Hallucinations Penicillins Unknown - Patient states they do not know rxn details Childhood allergy, thinks it was maybe a rash, but isn't sure [4] Current Facility-Administered Medications Medication Dose Route Frequency Provider Last Rate Last Admin apixaban (Eliquis) tablet 5 mg 5 mg Oral BID Evi Reeves MD 5 mg at 09/07/25 08 HYDROcodone-acetaminophen ([place]) 5-325 MG per tablet 5 mg of hydrocodone 5 mg of hydrocodone Oral q6h PRN Jaqueline Abramsin M, DO 5 mg of hydrocodone at 09/03/252106 lidocaine (Xylocaine) 2 % solution 5 mL 5 mL Swish & Swallow Before meals & nightly Jadon Rangel MD 5 mL at 09/07/25 08 magic mouthwash BLM (FIRST-Mouthwash) suspension 15 mL 15 mL Swish & Spit Before meals & nightly Jadon Rangel MD 15 mL at 09/07/25 08 melatonin tablet 6 mg 6 mg Oral Nightly PRN Jayne Abrams, DO 6 mg at 09/06/252040 nystatin (Mycostatin) 494356 UNIT/ML suspension 500,000 Units 5 mL Swish & Swallow 4x daily Jadon Rangel MD 500,000 Units at 09/07/25 08 ondansetron ODT (Zofran-ODT) disintegrating tablet 8 mg 8 mg Oral q6h PRN Jadon Rangel MD Or ondansetron (Zofran) injection 8 mg 8 mg Intravenous q6h PRN Jadon Rangel MD 8 mg at 09/02/252014 Or ondansetron (Zofran) 4 MG/5ML solution 8 mg 8 mg Oral q6h PRN Jadon Rangel MD pantoprazole (Protonix) EC tablet 40 mg 40 mg Oral Daily before breakfast Jadon Rangel MD 40 mgat 09/07/25 08 potassium & sodium phosphates (Phos-NaK) 280-160-250 MG packet 2 packet 2 packet Oral With meals & nightly Sheyla Malagon MD 2 packet at 09/07/25 0853 prochlorperazine (Compazine) tablet 5 mg 5 mg Oral q6h PRN Sheyla Malagon MD Or prochlorperazine (Compazine) suppository 25 mg 25 mg Rectal q12h PRN Sehyla Malagon MD Or prochlorperazine (Compazine) injection 2.5 mg 2.5 mg Intravenous q6h PRN Sheyla Malagon MD 2.5 mg at 09/01/252042 Or prochlorperazine (Compazine) injection 5 mg 5 mg Intramuscular q6h PRN Sheyla Malagon MD prochlorperazine (Compazine) tablet 10 mg 10 mg Oral q6h PRN Evi Reeves MD 10 mg at 08/28/25 0130 rosuvastatin (Crestor) tablet 10 mg 10 mg Oral Daily Evi Reeves MD 10 mg at 09/07/25 0854 sodium bicarbonate tablet 1,300 mg 1,300 mg Oral BID Sheyla Malagon MD 1,300 mg at 09/07/25 0853 sodium chloride (Amoret) 0.65 % nasal spray 1 spray 1 spray Each Nostril PRN Sheyla Malagon MD 1 spray at 09/03/25 1349 tamsulosin (Flomax) 24 hr capsule 0.8 mg 0.8 mg Oral Daily Joyce Gunderosn MD 0.8 mg at 09/07/25 0853 [5] Social History Tobacco Use Smoking status: Never Smokeless tobacco: Never Substance Use Topics Alcohol use: Never Drug use: Never [6] Family History Problem Relation Name Age of Onset Cancer Father Cosigned by Day Post MD at 09/07/2025 3:10 PM EDT Associated attestation - Day Post MD - 09/07/2025 3:10 PM EDT The patient was seen by Advanced Practice Provider ([facility]), and care was reviewed with me. * Progress Notes - Joyce Gunderson MD - 09/07/2025 7:45 AM EDT Subjective Seen at bedside with his sister. He reports diarrhea, watery, every hour. Drinking Boost and broth and keeping up with oral fluids as much as he can. In no shape to go home. Review of Systems Constitutional: Positive for fatigue. Gastrointestinal: Positive for diarrhea. All other systems reviewed and are negative. Objective Vitals Temp: [36.7 ??C (98.1 ??F)-37.1 ??C (98.8 ??F)] 36.7 ??C (98.1 ??F) Heart Rate: [75-97] 89 Resp: [16] 16 BP: (107-118)/(64-71) 111/64 Physical Exam Constitutional: Appearance: Normal appearance. HENT: Mouth/Throat: Mouth: Mucous membranes are moist. Eyes: Pupils: Pupils are equal, round, and reactive to light. Cardiovascular: Rate and Rhythm: Normal rate. Pulmonary: Effort: Pulmonary effort is normal. Breath sounds: Normal breath sounds. Abdominal: General: Abdomen is flat. Palpations: Abdomen is soft. Musculoskeletal: Right lower leg: Edema present. Left lower leg: Edema present. Neurological: Mental Status: He is alert and oriented to person, place, and time. Assessment & Plan Sepsis (CMS/HCC) Neutropenic fever (CMS/HCC) Justin Best is a 69-year-old male with a known medical history of Poorly differentiated GEjunction adenocarcinoma, hypertension, and hyperlipidemia, Recently diagnosed AF (On Eliquis), presenting with fever, worsening epigastric pain, and poor oral intake following recent chemotherapy. 1.Clostridium difficile infection/ diarrhea in the setting of neutropenia: Patient is admitted to hospital medicine for Fever in Immunocompromised state and neutropenia. C. Diff toxin and DNA positive. Contiinue with Dificid fidaxomicin 200 mg PO BID for 29 doses, last dose today. ID recs appreciated, started on PO vancomycin. Other cultures unrevealing so far. Last chemo was a week ago prior to coming into the hospital. Neutropenia has resolved. procalcitonin CRP and ESR- improving. 2.Acute kidney injury on CKD3a with metabolic acidosis Resolved Us without hydronephrosis. Recent contrast noted so this may be preciptating cause . He follows with Dr. 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 Patient is unable to tolerate PO diet (even liquids). Also his epigastric pain is worsening and uncontrolled. Epigastric tenderness +. 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 Surgery planningunderway- 6-12wks from now Oxycodone 5 mg x Q6 PRN. 4.Hypokalemia, hypophosphatemia Monitored daily and repleting 5.Atrial Fibrillation: Continue Eliquis, heart rate well controlled, not on any rate-controlling medication Telemetry FENGI: Regular diet DVT prophylaxis: Eliquis apixaban 5 mg BID GI prophylaxis: Protonix 40 mg by mouth daily before breakfast Code status: Full code Disposition: pt ot rec home w assist and walker. Medically Ready for Discharge:Anticipated in 2-4 Days * Care Plan - Loni Wright RN - 09/06/2025 10:00 PM EDT Problem: Adult Inpatient Plan of Care Goal: Patient-Specific Goal (Individualized) Outcome: Ongoing, Progressing Flowsheets (Taken 09/06/20251999) Patient/Family-Specific Goals (Include Timeframe): patient will remain free from further skin breakdown this shift Individualized Care Needs: skin protection Anxieties, Fears or Concerns: diarrhea Goal: Optimal Comfort and Wellbeing Outcome: Ongoing, Progressing Intervention: Monitor Pain and Promote Comfort Flowsheets (Taken 09/04/2025 0735 by Willis Tracy RN) Pain Management Interventions: care clustered emotional support pain management plan reviewed with patient/caregiver quiet environment facilitated therapeutic presence Intervention: Provide Person-Centered Care Flowsheets (Taken 09/04/20251815 by Willis Tracy, RN) Trust Relationship/Rapport: care explained choices provided emotional support provided empathic listening provided questions answered questions encouraged reassurance provided thoughts/feelings acknowledged Problem: Pain Acute Goal: Optimal Pain Control and Function Outcome: Ongoing, Progressing Intervention: Optimize Psychosocial Wellbeing Flowsheets (Taken 09/04/20251815 by Willis Tracy, RN) Supportive Measures: active listening utilized self-care encouraged verbalization of feelings encouraged Diversional Activities: smartphone television Spiritual Activities Assistance: affirmation provided Intervention: Develop Pain Management Plan Flowsheets (Taken 09/04/2025 0735 by Willis Tracy RN) Pain Management Interventions: care clustered emotional support pain management plan reviewed with patient/caregiver quiet environment facilitated therapeutic presence Intervention: Prevent or Manage Pain Flowsheets Taken 09/04/20251815 by Willis Tracy RN Sensory Stimulation Regulation: quiet environment promoted care clustered Bowel Elimination Promotion: adequate fluid intake promoted commode/bedpan at bedside privacy promoted Sleep/Rest Enhancement: family presence promoted natural light exposure provided Medication Review/Management: medications reviewed Taken 09/01/2025 1151 by Giovanna Washington RN Complementary Therapy: music therapy provided Problem: Nausea and Vomiting Goal: Nausea and Vomiting Relief Outcome: Ongoing, Progressing Intervention: Prevent and Manage Nausea and Vomiting Flowsheets (Taken 09/04/20251815 by Willis Tracy RN) Fluid/Electrolyte Management: electrolyte supplement adjusted intravenous fluids adjusted Nausea/Vomiting Interventions: nausea triggers minimized Environmental Support: calm environment promoted rooming-in facilitated Oral Care: oral rinse provided Problem: Electrolyte Imbalance Goal: Electrolyte Balance Outcome: Ongoing, Progressing Intervention: Monitor and Manage Electrolyte Imbalance Flowsheets (Taken 09/04/20251815 by Willis Tracy RN) Fluid/Electrolyte Management: electrolyte supplement adjusted intravenous fluids adjusted Problem: Infection Goal: Absence of Infection Signs and Symptoms Outcome: Ongoing, Progressing Intervention: Prevent or Manage Infection Flowsheets Taken 09/06/20251999 by Loni Wright RN Isolation Precautions: contact Taken 09/04/20251815 by Willis Tracy RN Infection Management: aseptic technique maintained Fever Reduction/Comfort Measures: lightweight bedding lightweight clothing Problem: Skin Injury Risk Increased Goal: Skin Health and Integrity Outcome: Ongoing, Progressing Intervention: Optimize Skin Protection Flowsheets Taken 09/06/20251999 by Loni Wright RN Activity Management: bedrest Taken 09/04/20251999 by Ana Cristina Yo Head of Bed (HOB) Positioning: HOB at 30-45 degrees Taken 09/04/20251815 by Willis Tracy RN Pressure Reduction Techniques: frequent weight shift encouraged heels elevated off bed Pressure Reduction Devices: positioning supports utilized Skin Protection: incontinence pads utilized protective footwear used Intervention: Promote and Optimize Oral Intake Flowsheets (Taken 09/04/20251815 by Willis Tracy RN) Oral Nutrition Promotion: calorie-dense liquids provided Nutrition Interventions: food preferences provided * Progress Notes - Joyce Gunderson MD - 09/06/2025 3:39 PM EDT Subjective Seen at bedside with and sister. Patient sleeping, easily arousable. Reports feeling worse than yesterday although diarrhea frequency about the same. He is unsure why he feels worse today. He will be excited about going home and understands that he would need to stay for another day to make sure he feels better. Discussed in detail about how he needs to increase his oral intake and otherwisewill need IV fluids. Discussed in detail about protein intake and how low routine good contribute to swelling in his legs. Questions and concerns addressed. He is interested in drinking broth and boost. Review of Systems Constitutional: Positive for fatigue. Gastrointestinal: Positive for diarrhea. All other systems reviewed and are negative. Objective Vitals Temp: [36.6 ??C (97.8 ??F)-36.8 ??C (98.3 ??F)] 36.8 ??C (98.2 ??F) Heart Rate: [75-103] 75 Resp: [16] 16 BP: (100-132)/(67-77) 112/70 Physical Exam Constitutional: Appearance: Normal appearance. HENT: Mouth/Throat: Mouth: Mucous membranes are moist. Eyes: Pupils: Pupils are equal, round, and reactive to light. Cardiovascular: Rate and Rhythm: Normal rate. Pulmonary: Effort: Pulmonary effort is normal. Breath sounds: Normal breath sounds. Abdominal: General: Abdomen is flat. Palpations: Abdomen is soft. Musculoskeletal: Right lower leg: Edema present. Left lower leg: Edema present. Neurological: Mental Status: He is alert and oriented to person, place, and time. Assessment & Plan Sepsis (CMS/HCC) Neutropenic fever (CMS/HCC) Justin Best is a 69-year-old male with a known medical history of Poorly differentiated GEjunction adenocarcinoma, hypertension, and hyperlipidemia, Recently diagnosed AF (On Eliquis), presenting with fever, worsening epigastric pain, and poor oral intake following recent chemotherapy. 1.Clostridium difficile infection/ diarrhea in the setting of neutropenia: Patient is admitted to hospital medicine for Fever in Immunocompromised state and neutropenia. C. Diff toxin and DNA positive. Contiinue with Dificid fidaxomicin 200 mg PO BID for 29 doses, last dose tomorrow AM Other cultures unrevealing so far. Last chemo was a week ago prior to coming into the hospital. Neutropenia has resolved. procalcitonin CRP and ESR- improving. 2.Acute kidney injury on CKD3a with metabolic acidosis Resolved Us without hydronephrosis. Recent contrast noted so this may be preciptating cause . He follows with Dr. 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 Patient is unable to tolerate PO diet (even liquids). Also his epigastric pain is worsening and uncontrolled. Epigastric tenderness +. 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 Surgery planningunderway- 6-12wks from now Oxycodone 5 mg x Q6 PRN. 4.Hypokalemia, hypophosphatemia Monitored daily and repleting 5.Atrial Fibrillation: Continue Eliquis, heart rate well controlled, not on any rate-controlling medication Telemetry FENGI: Regular diet DVT prophylaxis: Eliquis apixaban 5 mg BID GI prophylaxis: Protonix 40 mg by mouth daily before breakfast Code status: Full code Disposition: pt ot rec home w assist and walker. Plan for tomorrow Medically Ready for Discharge:Anticipated Tomorrow * Progress Notes - Melodie Grewal RN - 09/06/2025 2:28 PM EDT Images from the original note were not included. Wound Care Consult Visit Date: 09/06/2025 Patient Name: Justin Best Date of : 1955 Admit Date: 08/26/2025 Reason for Consult: IP Wound Orders (From admission, onward) Start Ordered 09/04/25 1507 Wound ostomy eval and treat Rectum Irritant Contact Dermatitis Incontinence Once Comments: Perirectal and inner gluteal cleft skin irritation from frequent, liquid stool. Patient has fecal urgency, and is C. diff. Positive. Currently using Z guard and No Sting [place], but irritation seems to be worsening. Question Answer Comment Reason for consult: Wound/pressure injury 09/04/25 1508 Wound Assessment: Wound 09/04/25 Irritant Contact Dermatitis Incontinence Rectum (Active) Date First Assessed/Time First Assessed: 09/04/25 1504 Hand Hygiene Completed: Yes Primary Wound Type: Irritant Contact Dermatitis Secondary Wound Type - Irritant Contact Dermatitis: Incontinence Location: Rectum Wound Description (Comments): Pe... Assessments 09/06/2025 10:48 AM Wound Image Patient turned independently. Perianal skin pink and intact, blanchable. Linear V shaped thickened skin to either side of paz cleft with one small denuded area. Findings consistent with mild irritant contact dermatitis due to moisture and friction, continue barrier spray and z-guard. Wound Assessment [place];Intact Treatments Zinc - oxide paste Active Orders Date Order Priority Status Authorizing Provider 09/06/25 1427 Apply/Change Wound Dressing Rectum Irritant Contact Dermatitis Incontinence Routine Active VesnaSheyla MD - Dressing Type: Other Dressings - Other: Other (Comment) - Other dressing (comment):: Gently cleanse coccyx/gluteals with soap and water. Allow to dry. [place] skin with no sting barrier and allow to dry. Apply thick layer of Z guard for moisture protection TID and PRN for incontinence. Wound Team Plan: Does not require wound care follow up at this time, please re- consult wound care with new concerns. Melodie Grewal RN 09/06/2025 2:28 PM * Care Plan - Sayra Ledbetter RN - 09/06/2025 9:33 AM EDT Problem: Adult Inpatient Plan of Care Goal: Patient-Specific Goal (Individualized) Outcome: Ongoing, Progressing Flowsheets (Taken 09/05/20251999 by Loni Wright RN) Patient/Family-Specific Goals (Include Timeframe): patient will report adequate pain control this shift Individualized Care Needs: pain control Anxieties, Fears or Concerns: pain control Goal: Optimal Comfort and Wellbeing Outcome: Ongoing, Progressing Intervention: Monitor Pain and Promote Comfort Flowsheets (Taken 09/04/2025734 by Willis Tracy RN) Pain Management Interventions: care clustered emotional support pain management plan reviewed with patient/caregiver quiet environment facilitated therapeutic presence Intervention: Provide Person-Centered Care Flowsheets (Taken 09/04/20251815 by Willis Tracy RN) Trust Relationship/Rapport: care explained choices provided emotional support provided empathic listening provided questions answered questions encouraged reassurance provided thoughts/feelings acknowledged Problem: Pain Acute Goal: Optimal Pain Control and Function Outcome: Ongoing, Progressing Intervention: Optimize Psychosocial Wellbeing Flowsheets (Taken 09/04/20251815 by Willis Tracy RN) Supportive Measures: active listening utilized self-care encouraged verbalization of feelings encouraged Diversional Activities: smartphone television Spiritual Activities Assistance: affirmation provided Intervention: Develop Pain Management Plan Flowsheets (Taken 09/04/2025734 by Willis Tracy RN) Pain Management Interventions: care clustered emotional support pain management plan reviewed with patient/caregiver quiet environment facilitated therapeutic presence Intervention: Prevent or Manage Pain Flowsheets Taken 09/04/20251815 by Willis Tracy RN Sensory Stimulation Regulation: quiet environment promoted care clustered Bowel Elimination Promotion: adequate fluid intake promoted commode/bedpan at bedside privacy promoted Sleep/Rest Enhancement: family presence promoted natural light exposure provided Medication Review/Management: medications reviewed Taken 09/01/2025 1151 by Giovanna Washington RN Complementary Therapy: music therapy provided Problem: Nausea and Vomiting Goal: Nausea and Vomiting Relief Outcome: Ongoing, Progressing Intervention: Prevent and Manage Nausea and Vomiting Flowsheets (Taken 09/04/20251815 by Willis Tracy RN) Fluid/Electrolyte Management: electrolyte supplement adjusted intravenous fluids adjusted Nausea/Vomiting Interventions: nausea triggers minimized Environmental Support: calm environment promoted rooming-in facilitated Oral Care: oral rinse provided Problem: Electrolyte Imbalance Goal: Electrolyte Balance Outcome: Ongoing, Progressing Flowsheets (Taken 09/04/20251815 by Willis Tracy RN) Electrolyte Imbalance: Plan of Care: electrolyte balance Intervention: Monitor and Manage Electrolyte Imbalance Flowsheets (Taken 09/04/20251815 by Willis Tracy RN) Fluid/Electrolyte Management: electrolyte supplement adjusted intravenous fluids adjusted Problem: Infection Goal: Absence of Infection Signs and Symptoms Outcome: Ongoing, Progressing Intervention: Prevent or Manage Infection Flowsheets Taken 09/05/20251999 by Loni Wright RN Isolation Precautions: protective contact Taken 09/04/20251815 by Wilils Tracy RN Infection Management: aseptic technique maintained Fever Reduction/Comfort Measures: lightweight bedding lightweight clothing Problem: Skin Injury Risk Increased Goal: Skin Health and Integrity Outcome: Ongoing, Progressing Intervention: Optimize Skin Protection Flowsheets Taken 09/05/20251999 by Loni Wright RN Activity Management: up to bedside commode Taken 09/04/20251999 by Ana Cristina Yo Head of Bed (HOB) Positioning: HOB at 30-45 degrees Taken 09/04/20251815 by Willis Tracy RN Pressure Reduction Techniques: frequent weight shift encouraged heels elevated off bed Pressure Reduction Devices: positioning supports utilized Skin Protection: incontinence pads utilized protective footwear used Intervention: Promote and Optimize Oral Intake Flowsheets (Taken 09/04/20251815 by Willis Tracy RN) Oral Nutrition Promotion: calorie-dense liquids provided Nutrition Interventions: food preferences provided * Progress Notes - Koki Perdue, RELEASE MANAGER, DNP - 09/06/2025 8:50 AM EDT Medical Oncology Consult Follow-Up Note 09/06/25 Patient Care Team: Darius Ken MD as PCP - General (Internal Medicine) Subjective: Patient is lying in bed. He states that he feels miserable today. He is having worsening diarrheatoday including bowel movements every hour. Some of these episodes are incontinent. PMH, Surg History, Social History, Family History and current medications reviewed and unchanged from last encounter of 08/31/25, or updated as indicated. ROS: 14 point review of systems completed and negative unless stated above. Objective: Visit Vitals BP 100/67 (BP Location: Left arm, Patient Position: Lying) Pulse 85 Temp 36.6 ??C (97.9 ??F) (Oral) Resp 16 ECO General: Lying/resting comfortably in bed, Pale and ill appearing; NAD HEENT: NCAT, PERRLA/EOMI, anicteric; no oral lesions Neck: Supple, no JVD Heart: RRR, no MGR Lungs: CTAB; no rales, rhonchi or wheezes; O2 room air Abdomen: Soft, NTND, + BS : Bernstein inplace Extremities: No edema Musculoskeletal: No focal tenderness or deformity Skin: Cardiac patch monitor on chest; No visible rashes or lesions Neuro: Grossly nonfocal; no localizing deficits of strength, sensation, or mentation Psychiatric: Normal mood and thought content Labs: Labs in last 18 hours CBC WBC 10.31 (H) Hb 8.1 (L) Plt 661 (H) Hct 25.1 (L) ANC 7.70 (H) INR ??, PTT ??, Anti-Xa ?? BMP Na 136 Cl 103 BUN 8 Glu 90 K 4.0 Co2 24 Cr 1.10 Ca 7.7 (L) iCa ?? Mg 1.6 (L), Phos 2.4 (L) Lactate ?? LFT AST 33 AlkPhos 80 T Prot 5.2 (L) ALK 28 Bili 0.4 Alb ?? D.Bili ?? No results found for: UTPCR No results found for: TSH , FREET4 No results found for: CEA , CA199 , AFP Labs personally reviewed Imaging: As noted in HPI if relevant. Assessment/Plan: Justin Best 70 y.o. male with newly diagnosed adenocarcinoma of the gastroesophageal junction who presented to [facility] on 08/26 with fever, and poor PO intake. Medical oncology consulted for plan of care and management of GE junction adenocarcinoma. #Gastroesophageal junction adenocarcinoma. - Oncologist: Dr. Reina in [facility] - Co-managed with Dr. Kim Marcano with thoracic surgery. 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 Pylori negative NGS pending - Patient expressed wishes to stop chemotherapy and pursue immunotherapy treatment; Plan entered for Nivolumab/Ipilimumab - F/U [facility] 09/08, will re-schedule if needed. #Clostridium difficile infection. - Stool Cdiff PCR toxin +; GDH +; toxin +; EIA interpretation c diff likely - Dificid was been started 08/28 - ongoing diarrhea; manage closely #Atrial fibrillation - Currently in sinus rhythm - Continues on Eliquis - Cardiac patch monitor in place - Outpatient Cardiology appt 09/21/25 #Chemo induced N/V - Post-chemotherapy complications of significant nausea & vomiting. - Continue PRN Zofran and Compazine -currently effective #Non-oliguric [place] with ATN on CKD3 - Creatinine 4.14 at admission - UA negative - Renal US 08/30: R kidney 10.8cm, L kidney 10.4cm. Normal echogenicity. No hydronephrosis, no calculi. - Bernstein placed for urinary retention - Nephology consulted - creatinine back to baseline #Anemia of chronic disease - related to cancer and cancer treatment - hgb 8.1; hct 25.1 on 09/06 - Cont to monitor; no active s/s of bleeding - transfuse if hgb <7 or hct <22 09/06/25 Plan: - Nephology consulted - Continue PRN Zofran and Compazine -currently effective - Continue Dificid 10 days for c-diff (started 08/28) - Contact Precautions required for c-diff and importance of maintaining hand hygiene to prevent itsspread. - Advised to keep the cardiology appointment as atrial fibrillation - Stage/Grade -pending staging scans - NGS pending - F/U [facility] 09/08 Medical oncology will continue to follow. Please call with additional questions or concerns. 35 minutes was spent on this encounter; including preparing to see the patient, which involved review/interpretation of diagnostics and reports; obtaining and/or reviewing separately obtained history; performing appropriate physical exam; ordering/scheduling medications, tests or procedures; communicating findings and counseling/educating the patient, family and/or caregiver; documentation in EMR; and care coordination. The selection, dosing and administration of anti-cancer agents and the management of associated toxicities requires complex medical decision making and intensive monitoring for toxicity. Modifications of drug dose and schedule as well as the initiation of supportive care interventions are often necessary because of expected toxicities. This varies individually based on patient tolerability, priortreatments and comorbidities/risk status. Monitoring typically entails labs, imaging and/or other diagnostics, utilizing a healthcare delivery team experienced in the use of anticancer agents and themanagement of associated toxicities in patients with cancer. Attending physician previously developed plan of care, which I discussed with the patient, whom I saw independently. Discussed patient during multidisciplinary rounds with current inpatient medical oncologist. The patient verbalized understanding and agrees with plan. All questions answered to their satisfaction. Encouraged to call should other questions/concerns arise. Koki Perdue APRN, DNP Division of Medical Oncology [address] [place] [address] * Care Plan - Loni Wright RN - 09/05/2025 10:11 PM EDT Problem: Adult Inpatient Plan of Care Goal: Patient-Specific Goal (Individualized) Outcome: Ongoing, Progressing Flowsheets (Taken 09/05/20251999) Patient/Family-Specific Goals (Include Timeframe): patient will report adequate pain control this shift Individualized Care Needs: pain control Anxieties, Fears or Concerns: pain control Goal: Optimal Comfort and Wellbeing Outcome: Ongoing, Progressing Intervention: Monitor Pain and Promote Comfort Flowsheets (Taken 09/04/2025 0735 by Willis Tracy RN) Pain Management Interventions: care clustered emotional support pain management plan reviewed with patient/caregiver quiet environment facilitated therapeutic presence Intervention: Provide Person-Centered Care Flowsheets (Taken 09/04/20251815 by Willis Tracy RN) Trust Relationship/Rapport: care explained choices provided emotional support provided empathic listening provided questions answered questions encouraged reassurance provided thoughts/feelings acknowledged Problem: Pain Acute Goal: Optimal Pain Control and Function Outcome: Ongoing, Progressing Intervention: Optimize Psychosocial Wellbeing Flowsheets (Taken 09/04/20251815 by Willis Tracy RN) Supportive Measures: active listening utilized self-care encouraged verbalization of feelings encouraged Diversional Activities: smartphone television Spiritual Activities Assistance: affirmation provided Intervention: Develop Pain Management Plan Flowsheets (Taken 09/04/2025 0735 by Willis Tracy RN) Pain Management Interventions: care clustered emotional support pain management plan reviewed with patient/caregiver quiet environment facilitated therapeutic presence Intervention: Prevent or Manage Pain Flowsheets Taken 09/04/20251815 by Willis Tracy RN Sensory Stimulation Regulation: quiet environment promoted care clustered Bowel Elimination Promotion: adequate fluid intake promoted commode/bedpan at bedside privacy promoted Sleep/Rest Enhancement: family presence promoted natural light exposure provided Medication Review/Management: medications reviewed Taken 09/01/2025 1151 by Giovanna Washington RN Complementary Therapy: music therapy provided Problem: Nausea and Vomiting Goal: Nausea and Vomiting Relief Outcome: Ongoing, Progressing Intervention: Prevent and Manage Nausea and Vomiting Flowsheets (Taken 09/04/20251815 by Willis Tracy RN) Fluid/Electrolyte Management: electrolyte supplement adjusted intravenous fluids adjusted Nausea/Vomiting Interventions: nausea triggers minimized Environmental Support: calm environment promoted rooming-in facilitated Oral Care: oral rinse provided Problem: Electrolyte Imbalance Goal: Electrolyte Balance Outcome: Ongoing, Progressing Intervention: Monitor and Manage Electrolyte Imbalance Flowsheets (Taken 09/04/20251815 by Willis Tracy RN) Fluid/Electrolyte Management: electrolyte supplement adjusted intravenous fluids adjusted Problem: Infection Goal: Absence of Infection Signs and Symptoms Outcome: Ongoing, Progressing Intervention: Prevent or Manage Infection Flowsheets Taken 09/05/20251999 by Loni Wright RN Isolation Precautions: protective contact Taken 09/04/20251815 by Willis Tracy RN Infection Management: aseptic technique maintained Fever Reduction/Comfort Measures: lightweight bedding lightweight clothing Problem: Skin Injury Risk Increased Goal: Skin Health and Integrity Outcome: Ongoing, Progressing Intervention: Optimize Skin Protection Flowsheets Taken 09/05/20251999 by Loni Wright RN Activity Management: up to bedside commode Taken 09/04/20251999 by Ana Cristina Yo Head of Bed (HOB) Positioning: HOB at 30-45 degrees Taken 09/04/20251815 by Willis Tracy RN Pressure Reduction Techniques: frequent weight shift encouraged heels elevated off bed Pressure Reduction Devices: positioning supports utilized Skin Protection: incontinence pads utilized protective footwear used Intervention: Promote and Optimize Oral Intake Flowsheets (Taken 09/04/20251815 by Willis Tracy, YAHAIRA) Oral Nutrition Promotion: calorie-dense liquids provided Nutrition Interventions: food preferences provided * Hospital Course - Joyce Gunderson MD - 09/05/2025 5:56 PM EDT Justin Best is a 69-year-old male with a known medical history of Poorly differentiated GEjunction adenocarcinoma, hypertension, and hyperlipidemia, Recently diagnosed AF (On Eliquis), presenting with fever, worsening epigastric pain, and poor oral intake following recent chemotherapy. #Clostridium difficile infection/ diarrhea in the setting of neutropenia: Patient is admitted to hospital medicine for Fever in Immunocompromised state and neutropenia. C. Diff toxin and DNA positive. Completed course of fidaxomicin 200 mg PO BID for 29 doses, last dose 09/07/25. ID recs appreciated, started on PO vancomycin 09/07/25. Plan for 10 days, end date 09/17/2025 # Gross hematuria-likely related to UTI, complicated; holding Eliquis, started on ceftriaxone basedon preliminary UA but no growth from sample and hence stopped on 09/09. Continue irrigation, Bernstein catheter, urology recommendations appreciated and will likely need follow-up as an outpatient. Hemoglobin monitoring q.6 H, status post 1 PRBC. #Adenocarcinoma of GE junction & Worsening Cancer Related Pain & Inability to tolerate PO: Patient follows up with [facility] team. Patient is unable to tolerate PO diet (even liquids). Alsohis epigastric pain is worsening and uncontrolled. Epigastric tenderness +. 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 Surgery planningunderway- 6-12wks from now Oxycodone 5 mg x Q6 PRN. #Atrial Fibrillation: Hold Eliquis, heart rate well controlled, not on any rate-controlling medication Telemetry FENGI: Regular diet DVT prophylaxis: Eliquis apixaban 5 mg BID GI prophylaxis: Protonix 40 mg by mouth daily before breakfast Code status: Full code Disposition: pt ot rec home w assist and walker. * Progress Notes - Sheyla Malagon MD - 09/05/2025 5:54 PM EDT Subjective No complaints. Diarrhea better. Eating and drinking better. Bernstein removed a bit ago and hoping to urinate soon. Review of Systems Current Scheduled Medications[1] Current Continuous Medications[2] Current PRN Medications[3] Objective Vitals Temp: [36.4 ??C (97.5 ??F)-36.8 ??C (98.2 ??F)] 36.6 ??C (97.8 ??F) Heart Rate: [74-99] 78 Resp: [16-18] 16 BP: (100-133)/(66-76) 123/76 Physical Exam Constitutional: Appearance: Normal appearance. Pulmonary: Effort: Pulmonary effort is normal. No respiratory distress. Abdominal: General: Abdomen is flat. Palpations: Abdomen is soft. Musculoskeletal: Right lower leg: No edema. Left lower leg: No edema. Skin: General: Skin is warm and dry. Neurological: Mental Status: He is alert and oriented to person, place, and time. Labs in last 18 hours CBC WBC ?? Hb ?? Plt ?? Hct ?? ANC ?? INR ??, PTT ??, Anti-Xa ?? BMP Na ?? Cl ?? BUN ?? Glu ?? K ?? Co2 ?? Cr ?? Ca ?? iCa ?? Mg ??, Phos ?? Lactate ?? LFT AST ?? AlkPhos ?? T Prot ?? ALK ?? Bili ?? Alb ?? D.Bili ?? Assessment & Plan Sepsis (CMS/HCC) Neutropenic fever (CMS/HCC) Justin Best is a 69-year-old male with a known medical history of Poorly differentiated GEjunction adenocarcinoma, hypertension, and hyperlipidemia, Recently diagnosed AF (On Eliquis), presenting with fever, worsening epigastric pain, and poor oral intake following recent chemotherapy. 1.Clostridium difficile infection/ diarrhea in the setting of neutropenia: Patient is admitted to hospital medicine for Fever in Immunocompromised state and neutropenia. Infectious workup ordered. Patient received one of cefepime in ED. CXR WNL. C. Diff toxin and DNA positive. Contiinue with Dificid fidaxomicin 200 mg PO BID for 29 doses. Other cultures unrevealing so far. Last chemo was a week ago prior to coming into the hospital. Neutropenia has thankfully resolved. procalcitonin CRP and ESR- improving. 2.Acute kidney injury on CKD3a with metabolic acidosis Resolving Us without hydronephrosis. Recent contrast noted so this may be preciptating cause . Bernstein removal today. No longer oliguric. consulted nephrology He follows with Dr. Eros Mejia here asan outpt Stop ivf. Removed scop patch. Trial of removal of bernstein today 3.Adenocarcinoma of GE junction & Worsening Cancer Related Pain & Inability to tolerate PO:Patient follows up with [facility] team. Patient is unable to tolerate PO diet (even liquids). Also his epigastric pain is worsening and uncontrolled. Epigastric tenderness +. [facility] oncology today and [facility] so there is a plan to transition to immunotherapy as outpt, likely ipi-nivo. Surgery planning underway- 6-12wks from now Oxycodone 5 mg x Q6 PRN. 4.Hypokalemia, hypophosphatemia Monitored daily and repleting 5.Atrial Fibrillation: Continue Eliquis Telemetry 6.hyponatremia- normalized FENGI: In full liquid diet, lactated Ringer's at 100 cc an hour DVT prophylaxis: Eliquis apixaban 5 mg by mouth he had GI prophylaxis: Protonix 40 mg by mouth daily before breakfast Code status: Full code Disposition: pt ot rec home w assist and walker. Not quite ready yet iso isr[place],and need for ivf. Likely home tomorrow or wed Medically Ready for Discharge: Medically Ready for Discharge: [1] apixaban, 5 mg, Oral, BID fidaxomicin, 200 mg, Oral, BID lidocaine, 5 mL, Swish & Swallow, Before meals & nightly magic mouthwash diphen/lido/qmvh-gxf-mnwvoq, 15 mL, Swish & Spit, Before meals & nightly nystatin, 5 mL, Swish & Swallow, 4x daily pantoprazole, 40 mg, Oral, Daily before breakfast potassium & sodium phosphates, 2 packet, Oral, With meals & nightly rosuvastatin, 10 mg, Oral, Daily sodium bicarbonate, 1,300 mg, Oral, BID [2] [3] PRN medications: HYDROcodone-acetaminophen, melatonin, ondansetron ODT OR ondansetron OR ondansetron, prochlorperazine OR prochlorperazine OR prochlorperazine OR prochlorperazine, prochlorperazine, sodium chloride * Progress Notes - J Carlosmary ellen Margie K - 09/05/2025 2:53 PM EDT Occupational Therapy Treatment Patient Name: Justin Best Today's Date: 09/05/2025 OT Discharge Recommendations: Home with assistance, Outpatient PT, Outpatient OT Equipment Recommended: Rolling walker Subjective Pt received on BS with urinal in place, reports, They just took my catheter out at 1pm. I'm trying to see if I can void. Participants in Care Family/Caregiver Present: Yes Family/Caregiver: Other (Specify) (Sister, Myah) Time Study Observer: Not Applicable Presentation Oxygen Therapy: None (Room air) Lines and Tubes: Intravenous access (R chest port) Pre-Session: Sitting in chair (seated on BSC) Pre-Session Comments: RN and patient agreeable Post-Session: Sitting in chair, Lines intact, RN notified, Call light in reach (seated on BSC) Post-Session Comments: All needs met; sister at chair side Precautions Medical Precautions: Fall precautions Objective Pain Pt reports no pain at this time. Delirium Screening RASS: Alert and calm Confusion Assessment Method-ICU (CAM-ICU/PCAM-ICU) Feature 3: Altered Level of Consciousness: Negative Cognition Cognition Overall Cognitive Status: Within Functional Limits Arousal/Alertness: Appropriate responses to stimuli Mood/Behavior: Alert Orientation Level: Oriented X4 Single Step Commands: Consistently Multi-Step Commands: Consistently Method of Communication: Verbal Safety Judgment: Good awareness of safety precautions Awareness of Errors: Good awareness of errors made Deficit Awareness: Fully aware of deficits Attention Span: Appears intact Transfers Transfer Exam: Sit to stand Level of Hardy: Contact guard Physical/Nonphysical Assist: Set-up required, Verbal Cues Assistive Device: Walker, rolling Transfer Exam: Stand to Sit Level of Hardy: Contact guard Physical/Nonphysical Assist: Set-up required, Verbal Cues Assistive Device: Walker, rolling Toilet Transfer Level of Hardy: Contact guard Physical/Nonphysical Assist: Verbal Cues Type of Transfer: Sidesteps, To bedside commode Assistive Device: Walker, rolling Self-Care Interventions Self Care/Home Management (ADLs) Time Entry: 32 Self_Care Interventions: OT provided extra time and min VC's for patient to complete ADL tasks, prolonged period of time on BSC completing BM's and attempting to void into urinal as pt reports bernstein catheter just removed this afternoon. Home safety education reviewed and OT provided education re: use of tub transfer bench for safe completion of tub/shower transfers as well as adaptive equipment review (including trolley car operator, sock aid) for completion of lower body dressing and bathing tasks. Pt reports already owning a trolley car operator and verbalized understanding of all education re: ADLs provided this date. Feeding Feeding Level of Assistance: Independent Feeding Where Assessed: Chair Level Feeding Interventions: To perform self-feeding tasks, pt is on regular diet Grooming Grooming Level of Assistance: Setup Grooming Where Assessed: Chair level Grooming Interventions: To perform seated level grooming tasks, anticipate CGA in stance at sink UE Dressing UE Dressing Level of Assistance: Setup UE Dressing Where Assessed: Chair level UE Dressing Interventions: Anticipated, donning pullover shirt Lower Extremity Dressing Sock Level of Assistance: Dependent LE Dressing Where Assessed: Chair level LE Dressing Interventions: Per patient report, dep A for donning non-skid socks currently, OT reviewed sock aid use this date Toileting Toileting Level of Assistance: Minimum assistance Where Assessed: Bedside commode Toileting Interventions: For hygiene at RW level, pt able to wipe buttocks following BM however Zahida for thoroughness Assessment Pt is limited by ongoing need for BM's (completing x2 toilet transfers to BSC) and need for voidings/p removal of bernstein catheter this date. Pt required additional time for all toileting tasks, requesting more time at conclusion of session. Pt remains most appropriate for home with assistance + OP PT/OT services + RW. Pt in agreement with all home safety education reviewed during session and reports necessary assistance available at home if needed. Pt will continue to benefit from skilled OT services at this time to address decreased safety and independence with ADLs, functional transfers, and functional mobility. OT Recommendations Discharge Destination: Home with assistance, Outpatient PT, Outpatient OT Discharge Equipment: Rolling walker Plan UE HEP and caregiver teaching, LB dressing tasks with AE use Goals OT GOAL DETAILS Goal Established Date Time Frame Goal Status OT Goal 1: Pt will complete sit <> stand and toilet transfers with Mod(I) using AE PRN 08/31/25 2 weeks OT Goal 2: Pt will complete total body dressing independently 08/31/25 2 weeks OT Goal 3: Pt will complete grooming tasks independently while standing at sink level 08/31/25 2 weeks OT Goal 4: Pt will tolerate > 5 min standing functional task without requiring rest break or demonstrating LOB, as prep for engaging in standing ADL/IADL tasks 08/31/25 Written by Margie Talbert on 09/05/25 at 3:05 PM. * Progress Notes - Kristen Toro RN - 09/05/2025 12:49 PM EDT Case Management Adult Progress Note Justin Best 70 y.o. male CSN: [id number] Admission: 08/26/2025 12:54 PM Primary Problem: Sepsis (CMS/HCC) Anticipated Discharge Date: symptoms managed for diarrhea, nausea and ongoing monitoring per Dr. Malagon. Medicare Second Notice: signed and placed on chart. Will need updated. Medically Ready for Discharge: Anticipated tomorrow. Additional Comments: per team, not yet medically ready for discharge. Reports symptoms have improved and wants to monitor for 24 hr. PT/OT home with assistance and outpatient PT/OT. Script provided. Equipment recommended: rolling walker. [facility]/order sent to and accepted: [facility] [place], [place] phone [phone] Transport: family to provide. Kristen Toro RN * Care Plan - Sayra Ledbetter RN - 09/05/2025 10:16 AM EDT Problem: Adult Inpatient Plan of Care Goal: Patient-Specific Goal (Individualized) Outcome: Ongoing, Progressing Flowsheets (Taken 09/04/20251999 by Ana Cristina Yo) Patient/Family-Specific Goals (Include Timeframe): pt will remainfree from falls or injury this shift. Individualized Care Needs: safety Anxieties, Fears or Concerns: none epressed Goal: Optimal Comfort and Wellbeing Outcome: Ongoing, Progressing Intervention: Monitor Pain and Promote Comfort Flowsheets (Taken 09/04/2025734 by Willis Tracy, YAHAIRA) Pain Management Interventions: care clustered emotional support pain management plan reviewed with patient/caregiver quiet environment facilitated therapeutic presence Intervention: Provide Person-Centered Care Flowsheets (Taken 09/04/20251815 by Willis Tracy, RN) Trust Relationship/Rapport: care explained choices provided emotional support provided empathic listening provided questions answered questions encouraged reassurance provided thoughts/feelings acknowledged Problem: Pain Acute Goal: Optimal Pain Control and Function Outcome: Ongoing, Progressing Intervention: Optimize Psychosocial Wellbeing Flowsheets (Taken 09/04/20251815 by Willis Tracy, RN) Supportive Measures: active listening utilized self-care encouraged verbalization of feelings encouraged Diversional Activities: smartphone television Spiritual Activities Assistance: affirmation provided Intervention: Develop Pain Management Plan Flowsheets (Taken 09/04/2025734 by Willis Tracy, YAHAIRA) Pain Management Interventions: care clustered emotional support pain management plan reviewed with patient/caregiver quiet environment facilitated therapeutic presence Intervention: Prevent or Manage Pain Flowsheets Taken 09/04/20251815 by Willis Tracy RN Sensory Stimulation Regulation: quiet environment promoted care clustered Bowel Elimination Promotion: adequate fluid intake promoted commode/bedpan at bedside privacy promoted Sleep/Rest Enhancement: family presence promoted natural light exposure provided Medication Review/Management: medications reviewed Taken 09/01/2025 1151 by Giovanna Washington RN Complementary Therapy: music therapy provided Problem: Nausea and Vomiting Goal: Nausea and Vomiting Relief Outcome: Ongoing, Progressing Intervention: Prevent and Manage Nausea and Vomiting Flowsheets (Taken 09/04/20251815 by Willis Tracy RN) Fluid/Electrolyte Management: electrolyte supplement adjusted intravenous fluids adjusted Nausea/Vomiting Interventions: nausea triggers minimized Environmental Support: calm environment promoted rooming-in facilitated Oral Care: oral rinse provided Problem: Electrolyte Imbalance Goal: Electrolyte Balance Outcome: Ongoing, Progressing Flowsheets (Taken 09/04/20251815 by Willis Tracy RN) Electrolyte Imbalance: Plan of Care: electrolyte balance Intervention: Monitor and Manage Electrolyte Imbalance Flowsheets (Taken 09/04/20251815 by Willis Tracy RN) Fluid/Electrolyte Management: electrolyte supplement adjusted intravenous fluids adjusted Problem: Infection Goal: Absence of Infection Signs and Symptoms Outcome: Ongoing, Progressing Intervention: Prevent or Manage Infection Flowsheets Taken 09/04/20251999 by Ana Cristina Yo Isolation Precautions: precautions maintained protective contact Taken 09/04/20251815 by Willis Tracy RN Infection Management: aseptic technique maintained Fever Reduction/Comfort Measures: lightweight bedding lightweight clothing Problem: Skin Injury Risk Increased Goal: Skin Health and Integrity Outcome: Ongoing, Progressing Intervention: Optimize Skin Protection Flowsheets Taken 09/05/2025 0834 by Jayne Renteria Activity Management: up in chair Taken 09/04/20251999 by Ana Cristina Yo Head of Bed (HOB) Positioning: HOB at 30-45 degrees Taken 09/04/20251815 by Willis Tracy RN Pressure Reduction Techniques: frequent weight shift encouraged heels elevated off bed Pressure Reduction Devices: positioning supports utilized Skin Protection: incontinence pads utilized protective footwear used Intervention: Promote and Optimize Oral Intake Flowsheets (Taken 09/04/20251815 by Willis Tracy RN) Oral Nutrition Promotion: calorie-dense liquids provided Nutrition Interventions: food preferences provided * Progress Notes - John Isbell - 09/05/2025 8:34 AM EDT Physical Therapy Treatment Patient Name: Justin Best Today's Date: 09/05/2025 PT Discharge Recommendations: Home with assistance, Outpatient PT, Outpatient OT Equipment Recommended: Rolling walker Subjective Reports he may need to have a bowel movement Participants in Care Family/Caregiver Present: Yes Family/Caregiver: Spouse (sister) Time Study Observer: Not Applicable Presentation Oxygen Therapy: None (Room air) Lines and Tubes: Urinary catheter Pre-Session: Supine, Head of bed elevated, Lines intact Pre-Session Comments: RN and patient agreeable Post-Session: Sitting in chair, Call light in reach, RN notified, Lines intact, Chair alarm Post-Session Comments: All needs met; family and RN present Precautions Medical Precautions: Fall precautions Objective Pain Denied pain Delirium Screening RASS: Alert and calm Confusion Assessment Method-ICU (CAM-ICU/PCAM-ICU) Feature 3: Altered Level of Consciousness: Negative Bed Mobility Bed Mobility Exam: Scooting/Bridging Level of Hardy: Stand-by assist Physical/Nonphysical Assist: Set-up required, Verbal Cues Assistive Device: Bed rails Bed Mobility Exam: Supine to Sit Level of Hardy: Stand-by assist Physical/Nonphysical Assist: Set-up required, Verbal Cues, HOB elevated Assistive Device: Bed rails Transfers Transfer Exam: Sit to stand Level of Hardy: Contact guard Physical/Nonphysical Assist: Set-up required, Verbal Cues Assistive Device: Walker, rolling Transfer Exam: Stand to Sit Level of Hardy: Contact guard Physical/Nonphysical Assist: Set-up required, Verbal Cues Assistive Device: Walker, rolling Toilet Transfer Level of Hardy: Minimum assist (75% patient's effort) Physical/Nonphysical Assist: Set-up required, Verbal Cues Type of Transfer: Ambulation, To toilet Assistive Device: Walker, rolling, Grab bar Ambulation Device: Rolling walker Assistance: Contact guard assist, Minimal verbal cues Distance : 15' x 2 Balance Postural Appearance Posture: Rounded shoulders, Forward head Static Sitting Balance Static Sitting-Balance Support: Feet supported, Left upper extremity support, Right upper extremitysupport Static Sitting-Level of Assistance: Standby assist Dynamic Sitting Balance Dynamic Sitting-Balance Support: Right upper extremity support, Left upper extremity support, Feet supported Dynamic Sitting-Balance: Anterior/Posterior weight shifts, Trunk control activities, Lateral weightshifts Level of Assistance: Standby assisst Static Standing Balance Static Standing-Balance Support: Left upper extremity support, Right upper extremity support (rolling walker) Static Standing-Level of Assistance: Standby assist Dynamic Standing Balance Dynamic Standing-Balance Support: Right upper extremity support, Left upper extremity support (rolling walker) Dynamic Standing-Balance: Lateral weight shifts, Anterior/Posterior weight shifts Dynamic Standing Level of Assistance: Contact guard Therapeutic Activity (25 minutes) Activity training consisted of bed mobility, prolonged sitting at edge of bed with static and dynamic balance activities, sit to/from stand, prolonged standing with dynamic functional task completion, and functional ambulation. Patient required maximum assistance to complete perineal care after bowel movement. Patient required verbal and tactile cues for initiation and completion of all mobility tasks. Skilled manual assistance needed for movements in order to complete tasks. Skilled monitoringof patient's vitals and presentation needed for safe advancement during training. Assessment Patient provided good effort with therapy today. Patient improving based off less assistance required for patient to complete transfers and increased walking distances. Progressing mobility training limited by impaired activity tolerance, weakness, impaired posture, and impaired balance, which is limiting patient from performing independent functional mobility. Patient will continue to benefit from skilled two person assistance for advancing mobility. PT Recommendations Discharge Destination: Home with assistance, Outpatient PT, Outpatient OT Discharge Equipment: Rolling walker Plan Continue per plan of care PT Goals PT GOAL DETAILS Goal Established Date Time Frame Goal Status PT Goal 1: Pt will improve AMPAC score equal or greater than 19 to demonstrate improved functional mobility. 08/30/25 2 weeks PT Goal 2: Pt will ambulate 100ft with CGA and LRAD to demonstrate improved household ambulation. 08/30/25 2 weeks Goal met PT Goal 3: Pt will perform supine <> sit with SBA and HOB flat. 08/30/25 2 weeks PT Goal 4: Pt will perform STS with SBA and least restrictive AD to decrease caregiver burden. 08/30/25 2 weeks PT Goal 5: Pt/family will be independent with HEP and discharge recommendations. 08/30/25 2 weeks Written by John Isbell on 09/05/25 at 9:05 AM. * Care Plan - Ana Cristina Yo - 09/05/2025 1:53 AM EDT Problem: Adult Inpatient Plan of Care Goal: Patient-Specific Goal (Individualized) Outcome: Ongoing, Progressing Flowsheets (Taken 09/04/20251999) Patient/Family-Specific Goals (Include Timeframe): pt will remainfree from falls or injury this shift. Individualized Care Needs: safety Anxieties, Fears or Concerns: none epressed Goal: Optimal Comfort and Wellbeing Outcome: Ongoing, Progressing Intervention: Monitor Pain and Promote Comfort Flowsheets (Taken 09/04/2025 07 by Willis Tracy RN) Pain Management Interventions: care clustered emotional support pain management plan reviewed with patient/caregiver quiet environment facilitated therapeutic presence Intervention: Provide Person-Centered Care Flowsheets (Taken 09/04/20251815 by Willis Tracy RN) Trust Relationship/Rapport: care explained choices provided emotional support provided empathic listening provided questions answered questions encouraged reassurance provided thoughts/feelings acknowledged Problem: Pain Acute Goal: Optimal Pain Control and Function Outcome: Ongoing, Progressing Intervention: Optimize Psychosocial Wellbeing Flowsheets (Taken 09/04/20251815 by Willis Tracy, RN) Supportive Measures: active listening utilized self-care encouraged verbalization of feelings encouraged Diversional Activities: Realie television Spiritual Activities Assistance: affirmation provided Intervention: Develop Pain Management Plan Flowsheets (Taken 09/04/2025 07 by Willis Tracy RN) Pain Management Interventions: care clustered emotional support pain management plan reviewed with patient/caregiver quiet environment facilitated therapeutic presence Intervention: Prevent or Manage Pain Flowsheets Taken 09/04/20251815 by Willis Tracy RN Sensory Stimulation Regulation: quiet environment promoted care clustered Bowel Elimination Promotion: adequate fluid intake promoted commode/bedpan at bedside privacy promoted Sleep/Rest Enhancement: family presence promoted natural light exposure provided Medication Review/Management: medications reviewed Taken 09/01/2025 1151 by Giovanna Washington RN Complementary Therapy: music therapy provided Problem: Nausea and Vomiting Goal: Nausea and Vomiting Relief Outcome: Ongoing, Progressing Intervention: Prevent and Manage Nausea and Vomiting Flowsheets (Taken 09/04/20251815 by Willis Tracy RN) Fluid/Electrolyte Management: electrolyte supplement adjusted intravenous fluids adjusted Nausea/Vomiting Interventions: nausea triggers minimized Environmental Support: calm environment promoted rooming-in facilitated Oral Care: oral rinse provided Problem: Electrolyte Imbalance Goal: Electrolyte Balance Outcome: Ongoing, Progressing Intervention: Monitor and Manage Electrolyte Imbalance Flowsheets (Taken 09/04/20251815 by Willis Tracy RN) Fluid/Electrolyte Management: electrolyte supplement adjusted intravenous fluids adjusted Problem: Infection Goal: Absence of Infection Signs and Symptoms Outcome: Ongoing, Progressing Intervention: Prevent or Manage Infection Flowsheets Taken 09/04/20251999 by Ana Cristina Yo Isolation Precautions: precautions maintained protective contact Taken 09/04/20251815 by Willis Tracy RN Infection Management: aseptic technique maintained Fever Reduction/Comfort Measures: lightweight bedding lightweight clothing Problem: Skin Injury Risk Increased Goal: Skin Health and Integrity Outcome: Ongoing, Progressing Intervention: Optimize Skin Protection Flowsheets Taken 09/04/20251999 by Ana Cristina Yo Activity Management: activity adjusted per tolerance Head of Bed (HOB) Positioning: HOB at 30-45 degrees Taken 09/04/20251815 by Willis Tracy RN Pressure Reduction Techniques: frequent weight shift encouraged heels elevated off bed Pressure Reduction Devices: positioning supports utilized Skin Protection: incontinence pads utilized protective footwear used Intervention: Promote and Optimize Oral Intake Flowsheets (Taken 09/04/20251815 by Willis Tracy RN) Oral Nutrition Promotion: calorie-dense liquids provided Nutrition Interventions: food preferences provided * Care Plan - Willis Tracy RN - 09/04/2025 6:21 PM EDT Problem: Infection Goal: Absence of Infection Signs and Symptoms Outcome: Ongoing, Not Progressing Intervention: Prevent or Manage Infection Flowsheets (Taken 09/04/20251815) Infection Management: aseptic technique maintained Fever Reduction/Comfort Measures: lightweight bedding lightweight clothing Isolation Precautions: precautions maintained contact Problem: Adult Inpatient Plan of Care Goal: Patient-Specific Goal (Individualized) Outcome: Ongoing, Progressing Flowsheets (Taken 09/04/2025 0800) Patient/Family-Specific Goals (Include Timeframe): Patient will report pain within a tolerable range through end of shift. Individualized Care Needs: Pain Anxieties, Fears or Concerns: Pain Goal: Optimal Comfort and Wellbeing Outcome: Ongoing, Progressing Intervention: Monitor Pain and Promote Comfort Flowsheets (Taken 09/04/2025 0735) Pain Management Interventions: care clustered emotional support pain management plan reviewed with patient/caregiver quiet environment facilitated therapeutic presence Intervention: Provide Person-Centered Care Flowsheets (Taken 09/04/20251815) Trust Relationship/Rapport: care explained choices provided emotional support provided empathic listening provided questions answered questions encouraged reassurance provided thoughts/feelings acknowledged Problem: Pain Acute Goal: Optimal Pain Control and Function Outcome: Ongoing, Progressing Intervention: Optimize Psychosocial Wellbeing Flowsheets (Taken 09/04/20251815) Supportive Measures: active listening utilized self-care encouraged verbalization of feelings encouraged Diversional Activities: smartphone television Spiritual Activities Assistance: affirmation provided Intervention: Develop Pain Management Plan Flowsheets (Taken 09/04/2025 6846) Pain Management Interventions: care clustered emotional support pain management plan reviewed with patient/caregiver quiet environment facilitated therapeutic presence Intervention: Prevent or Manage Pain Flowsheets (Taken 09/04/20251815) Sensory Stimulation Regulation: quiet environment promoted care clustered Bowel Elimination Promotion: adequate fluid intake promoted commode/bedpan at bedside privacy promoted Sleep/Rest Enhancement: family presence promoted natural light exposure provided Medication Review/Management: medications reviewed Problem: Nausea and Vomiting Goal: Nausea and Vomiting Relief Outcome: Ongoing, Progressing Intervention: Prevent and Manage Nausea and Vomiting Flowsheets (Taken 09/04/20251815) Fluid/Electrolyte Management: electrolyte supplement adjusted intravenous fluids adjusted Nausea/Vomiting Interventions: nausea triggers minimized Environmental Support: calm environment promoted rooming-in facilitated Oral Care: oral rinse provided Problem: Electrolyte Imbalance Goal: Electrolyte Balance Outcome: Ongoing, Progressing Flowsheets (Taken 09/04/20251815) Electrolyte Imbalance: Plan of Care: electrolyte balance Intervention: Monitor and Manage Electrolyte Imbalance Flowsheets (Taken 09/04/20251815) Fluid/Electrolyte Management: electrolyte supplement adjusted intravenous fluids adjusted Problem: Skin Injury Risk Increased Goal: Skin Health and Integrity Outcome: Ongoing, Progressing Intervention: Optimize Skin Protection Flowsheets (Taken 09/04/20251815) Activity Management: up in chair ambulated in arreguin back to bed Pressure Reduction Techniques: frequent weight shift encouraged heels elevated off bed Pressure Reduction Devices: positioning supports utilized Skin Protection: incontinence pads utilized protective footwear used Head of Bed (HOB) Positioning: HOB elevated Intervention: Promote and Optimize Oral Intake Flowsheets (Taken 09/04/20251815) Oral Nutrition Promotion: calorie-dense liquids provided Nutrition Interventions: food preferences provided * Progress Notes - Sheyla Malagon MD - 09/04/2025 10:55 AM EDT Subjective No complaints. Eating well and drinking well. Still diarrhea but improved. Review of Systems Current Scheduled Medications[1] Current Continuous Medications[2] Current PRN Medications[3] Objective Vitals Temp: [36.3 ??C (97.4 ??F)-36.7 ??C (98 ??F)] 36.4 ??C (97.6 ??F) Heart Rate: [66-86] 79 Resp: [16-18] 18 BP: (95-122)/(60-73) 95/64 Physical Exam Constitutional: Appearance: Normal appearance. HENT: Head: Normocephalic. Skin: General: Skin is warm and dry. Neurological: Mental Status: He is alert and oriented to person, place, and time. Psychiatric: Mood and Affect: Mood normal. Behavior: Behavior normal. Thought Content: Thought content normal. Judgment: Judgment normal. Labs in last 18 hours CBC WBC 10.11 Hb 7.0 (L) Plt 514 (H) Hct 21.8 (L) ANC 9.20 (H) INR ??, PTT ??, Anti-Xa ?? BMP Na 137 Cl 107 BUN 10 Glu 88 K 3.5 (L) Co2 24 Cr 1.04 Ca 7.1 (L) iCa ?? Mg 1.9, Phos 1.9 (L) Lactate ?? LFT AST ?? AlkPhos ?? T Prot ?? ALK ?? Bili ?? Alb ?? D.Bili ?? Assessment & Plan Sepsis ([facility]/HCC) Neutropenic fever ([facility]/HCC) Justin Best is a 69-year-old male with a known medical history of Poorly differentiated GEjunction adenocarcinoma, hypertension, and hyperlipidemia, Recently diagnosed AF (On Eliquis), presenting with fever, worsening epigastric pain, and poor oral intake following recent chemotherapy. 1.Clostridium difficile infection/ diarrhea in the setting of neutropenia: Patient is admitted to hospital medicine for Fever in Immunocompromised state and neutropenia. Infectious workup ordered. Patient received one of cefepime in ED. CXR WNL. C. Diff toxin and DNA positive. Contiinue with Dificid fidaxomicin 200 mg PO BID for 29 doses. Other cultures unrevealing so far. Last chemo was a week ago prior to coming into the hospital. Neutropenia has thankfully resolved. procalcitonin CRP and ESR- improving. 2.Acute kidney injury on CKD3a with metabolic acidosis Resolving Us without hydronephrosis. Recent contrast noted so this may be preciptating cause . Bernstein removal today. No longer oliguric. consulted nephrology He follows with Dr. Eros Mejia here asan outpt Stop ivf. Removed scop patch. Trial of removal of bernstein tomorrow 3.Adenocarcinoma of GE junction & Worsening Cancer Related Pain & Inability to tolerate PO:Patient follows up with [facility] team. Patient is unable to tolerate PO diet (even liquids). Also his epigastric pain is worsening and uncontrolled. Epigastric tenderness +. Dw oncology today and MSI-H so there is a plan to transition to immunotherapy as outpt, likely ipi-nivo. Surgery planning underway- 6-12wks from now Oxycodone 5 mg x Q6 PRN. 4.Hypokalemia, hypophosphatemia Monitored daily and repleting 5.Atrial Fibrillation: Continue Eliquis Telemetry 6.hyponatremia- normalized FENGI: In full liquid diet, lactated Ringer's at 100 cc an hour DVT prophylaxis: Eliquis apixaban 5 mg by mouth he had GI prophylaxis: Protonix 40 mg by mouth daily before breakfast Code status: Full code Disposition: pt ot rec home w assist and walker. Not quite ready yet iso [place],and need for ivf. Likely home tomorrow or tues Medically Ready for Discharge: [1] apixaban, 5 mg, Oral, BID fidaxomicin, 200 mg, Oral, BID lidocaine, 5 mL, Swish & Swallow, Before meals & nightly magic mouthwash diphen/lido/[id number], 15 mL, Swish & Spit, Before meals & nightly nystatin, 5 mL, Swish & Swallow, 4x daily pantoprazole, 40 mg, Oral, Daily before breakfast potassium & sodium phosphates, 2 packet, Oral, With meals & nightly rosuvastatin, 10 mg, Oral, Daily scopolamine, 1 patch, Transdermal, q72h sodium bicarbonate, 1,300 mg, Oral, BID [2] [3] PRN medications: HYDROcodone-acetaminophen, melatonin, ondansetron ODT OR ondansetron OR ondansetron, prochlorperazine OR prochlorperazine OR prochlorperazine OR prochlorperazine, prochlorperazine, sodium chloride * Care Plan - Adali Pryor RN - 09/03/2025 11:55 PM EDT Problem: Adult Inpatient Plan of Care Goal: Patient-Specific Goal (Individualized) Outcome: Ongoing, Progressing Goal: Optimal Comfort and Wellbeing Outcome: Ongoing, Progressing Intervention: Monitor Pain and Promote Comfort Note: Prn pain med Problem: Pain Acute Goal: Optimal Pain Control and Function Outcome: Ongoing, Progressing Problem: Nausea and Vomiting Goal: Nausea and Vomiting Relief Outcome: Ongoing, Progressing Intervention: Prevent and Manage Nausea and Vomiting Note: Prn nausea meds Problem: Electrolyte Imbalance Goal: Electrolyte Balance Outcome: Ongoing, Progressing Problem: Infection Goal: Absence of Infection Signs and Symptoms Outcome: Ongoing, Progressing Problem: Skin Injury Risk Increased Goal: Skin Health and Integrity Outcome: Ongoing, Progressing * Care Plan - Willis Tracy RN - 09/03/2025 12:49 PM EDT Problem: Adult Inpatient Plan of Care Goal: Patient-Specific Goal (Individualized) Outcome: Ongoing, Not Progressing Flowsheets (Taken 09/03/2025 0800) Patient/Family-Specific Goals (Include Timeframe): Patient will have a solid formed bowel movement by end of shift. Individualized Care Needs: Dysfunctional Gastrointestinal Motility Anxieties, Fears or Concerns: Diarrhea Problem: Infection Goal: Absence of Infection Signs and Symptoms Outcome: Ongoing, Not Progressing Intervention: Prevent or Manage Infection Flowsheets (Taken 09/03/2025 1247) Infection Management: aseptic technique maintained Fever Reduction/Comfort Measures: lightweight bedding lightweight clothing Isolation Precautions: precautions maintained contact Problem: Skin Injury Risk Increased Goal: Skin Health and Integrity Outcome: Ongoing, Not Progressing Intervention: Optimize Skin Protection Flowsheets (Taken 09/03/2025 1247) Activity Management: activity encouraged activity adjusted per tolerance Pressure Reduction Techniques: frequent weight shift encouraged heels elevated off bed positioned off wounds Pressure Reduction Devices: positioning supports utilized Skin Protection: incontinence pads utilized protective footwear used Head of Bed (HOB) Positioning: HOB elevated Intervention: Promote and Optimize Oral Intake Flowsheets (Taken 09/03/2025 124) Oral Nutrition Promotion: social interaction promoted rest periods promoted Nutrition Interventions: food preferences provided Problem: Adult Inpatient Plan of Care Goal: Optimal Comfort and Wellbeing Outcome: Ongoing, Progressing Intervention: Monitor Pain and Promote Comfort Flowsheets (Taken 09/03/2025 0800) Pain Management Interventions: care clustered emotional support pillow support provided position adjusted quiet environment facilitated pain management plan reviewed with patient/caregiver therapeutic presence Intervention: Provide Person-Centered Care Flowsheets (Taken 09/03/2025 1247) Trust Relationship/Rapport: care explained choices provided emotional support provided empathic listening provided questions answered questions encouraged reassurance provided thoughts/feelings acknowledged Problem: Pain Acute Goal: Optimal Pain Control and Function Outcome: Ongoing, Progressing Intervention: Optimize Psychosocial Wellbeing Flowsheets (Taken 09/03/2025 124) Supportive Measures: active listening utilized self-care encouraged verbalization of feelings encouraged Diversional Activities: smartphone television Spiritual Activities Assistance: affirmation provided Intervention: Develop Pain Management Plan Flowsheets (Taken 09/03/2025 0800) Pain Management Interventions: care clustered emotional support pillow support provided position adjusted quiet environment facilitated pain management plan reviewed with patient/caregiver therapeutic presence Intervention: Prevent or Manage Pain Flowsheets (Taken 09/03/2025 124) Sensory Stimulation Regulation: quiet environment promoted Bowel Elimination Promotion: adequate fluid intake promoted privacy promoted Sleep/Rest Enhancement: family presence promoted natural light exposure provided Medication Review/Management: medications reviewed Problem: Nausea and Vomiting Goal: Nausea and Vomiting Relief Outcome: Ongoing, Progressing Intervention: Prevent and Manage Nausea and Vomiting Flowsheets (Taken 09/03/2025 1247) Fluid/Electrolyte Management: electrolyte supplement adjusted fluids adjusted Nausea/Vomiting Interventions: sips of clear liquids given Environmental Support: calm environment promoted rooming-in facilitated Oral Care: oral rinse provided Problem: Electrolyte Imbalance Goal: Electrolyte Balance Outcome: Ongoing, Progressing Flowsheets (Taken 09/03/20251246) Electrolyte Imbalance: Plan of Care: electrolyte balance Intervention: Monitor and Manage Electrolyte Imbalance Flowsheets (Taken 09/03/2025 124) Fluid/Electrolyte Management: electrolyte supplement adjusted fluids adjusted * Progress Notes - Sheyla Malagon MD - 09/03/2025 12:05 PM EDT Subjective No new complaints per pt. Eating better. Diarrhea improved. Mild pain with eating. Review of Systems Current Scheduled Medications[1] Current Continuous Medications[2] Current PRN Medications[3] Objective Vitals Temp: [36.3 ??C (97.4 ??F)-36.7 ??C (98.1 ??F)] 36.3 ??C (97.4 ??F) Heart Rate: [66-75] 69 Resp: [16-17] 17 BP: (100-121)/(60-72) 100/60 Physical Exam Vitals and nursing note reviewed. Eyes: Conjunctiva/sclera: Conjunctivae normal. Pulmonary: Effort: Pulmonary effort is normal. No respiratory distress. Abdominal: General: Abdomen is flat. Palpations: Abdomen is soft. Musculoskeletal: Right lower leg: No edema. Left lower leg: No edema. Skin: General: Skin is warm and dry. Neurological: Mental Status: He is alert and oriented to person, place, and time. Psychiatric: Mood and Affect: Mood normal. Behavior: Behavior normal. Thought Content: Thought content normal. Judgment: Judgment normal. Labs in last 18 hours CBC WBC 10.43 (H) Hb 7.2 (L) Plt 520 (H) Hct 22.3 (L) ANC 9.80 (H) INR ??, PTT ??, Anti-Xa ?? BMP Na 140 Cl 111 (H) BUN 13 Glu 86 K 3.4 (L) Co2 23 Cr 1.21 (H) Ca 7.1 (L) iCa ?? Mg 1.7 (L), Phos 1.7 (L) Lactate ?? LFT AST 29 AlkPhos 65 T Prot 4.1 (L) ALK 22 Bili 0.3 Alb ?? D.Bili ?? Assessment & Plan Sepsis (CMS/HCC) Neutropenic fever (CMS/HCC) Justin Best is a 69-year-old male with a known medical history of Poorly differentiated GEjunction adenocarcinoma, hypertension, and hyperlipidemia, Recently diagnosed AF (On Eliquis), presenting with fever, worsening epigastric pain, and poor oral intake following recent chemotherapy. 1.Clostridium difficile infection/ diarrhea in the setting of neutropenia: Patient is admitted to hospital medicine for Fever in Immunocompromised state and neutropenia. Infectious workup ordered. Patient received one of cefepime in ED. CXR WNL. C. Diff toxin and DNA positive. Contiinue with Dificid fidaxomicin 200 mg PO BID for 29 doses. Other cultures unrevealing so far. Last chemo was a week ago prior to coming into the hospital. Neutropenia has thankfully resolved. procalcitonin CRP and ESR- improving. 2.Acute kidney injury on CKD3a with metabolic acidosis Resolving Us without hydronephrosis. Recent contrast noted so this may be preciptating cause . Bernstein removal today. No longer oliguric. consulted nephrology He follows with Dr. Eros Mejia here asan outpt Cont ivf for now but decrease to 50%. Consider stopping tomorrow 3.Adenocarcinoma of GE junction & Worsening Cancer Related Pain & Inability to tolerate PO:Patient follows up with [facility] team. Patient is unable to tolerate PO diet (even liquids). Also his epigastric pain is worsening and uncontrolled. Epigastric tenderness +. Dw oncology today and MSI-H so there is a plan to transition to immunotherapy as outpt, likely ipi-nivo. Surgery planning underway- 6-12wks from now Oxycodone 5 mg x Q6 PRN. 4.Hypokalemia, hypophosphatemia, hypomagenesemia Monitored daily and replete 5.Atrial Fibrillation: Continue Eliquis Telemetry 6.hyponatremia- normalized FENGI: In full liquid diet, lactated Ringer's at 100 cc an hour DVT prophylaxis: Eliquis apixaban 5 mg by mouth he had GI prophylaxis: Protonix 40 mg by mouth daily before breakfast Code status: Full code Disposition: pt ot rec home w assist and walker. Not quite ready yet iso [place],and need for ivf. Likely home in the next few days. Medically Ready for Discharge: [1] apixaban, 5 mg, Oral, BID fidaxomicin, 200 mg, Oral, BID lidocaine, 5 mL, Swish & Swallow, Before meals & nightly magic mouthwash diphen/lido/oqtb-igq-lwjygo, 15 mL, Swish & Spit, Before meals & nightly nystatin, 5 mL, Swish & Swallow, 4x daily pantoprazole, 40 mg, Oral, Daily before breakfast potassium & sodium phosphates, 1 packet, Oral, With meals & nightly rosuvastatin, 10 mg, Oral, Daily scopolamine, 1 patch, Transdermal, q72h sodium bicarbonate, 1,300 mg, Oral, BID [2] lactated Ringer's, 100 mL/hr, Last Rate: 100 mL/hr (09/03/25 0417) [3] PRN medications: HYDROcodone-acetaminophen, melatonin, ondansetron ODT OR ondansetron OR ondansetron, prochlorperazine OR prochlorperazine OR prochlorperazine OR prochlorperazine, prochlorperazine, sodium chloride * Care Plan - Adali Pryor RN - 09/02/2025 11:32 PM EDT Problem: Adult Inpatient Plan of Care Goal: Patient-Specific Goal (Individualized) Outcome: Ongoing, Progressing Goal: Optimal Comfort and Wellbeing Outcome: Ongoing, Progressing Problem: Pain Acute Goal: Optimal Pain Control and Function Outcome: Ongoing, Progressing Intervention: Prevent or Manage Pain Note: Prn pain med; watching TV, conversation Problem: Nausea and Vomiting Goal: Nausea and Vomiting Relief Outcome: Ongoing, Progressing Intervention: Prevent and Manage Nausea and Vomiting Note: Prn nausea meds Problem: Electrolyte Imbalance Goal: Electrolyte Balance Outcome: Ongoing, Progressing Problem: Infection Goal: Absence of Infection Signs and Symptoms Outcome: Ongoing, Progressing Problem: Skin Injury Risk Increased Goal: Skin Health and Integrity Outcome: Ongoing, Progressing Intervention: Optimize Skin Protection Note: Bilateral heels elevated off bed with pillow, foot of bed elevated * Care Plan - Willis Tracy RN - 09/02/2025 6:17 PM EDT Problem: Adult Inpatient Plan of Care Goal: Patient-Specific Goal (Individualized) Outcome: Ongoing, Not Progressing Flowsheets (Taken 09/02/2025 0800) Patient/Family-Specific Goals (Include Timeframe): Patient will have solid, formed bowel movement by end of shift. Individualized Care Needs: Dysfunctional Gastrointestinal Motility Anxieties, Fears or Concerns: Diarrhea Problem: Electrolyte Imbalance Goal: Electrolyte Balance Outcome: Ongoing, Not Progressing Flowsheets (Taken 09/02/20251813) Electrolyte Imbalance: Plan of Care: electrolyte balance Intervention: Monitor and Manage Electrolyte Imbalance Flowsheets (Taken 09/02/20251813) Fluid/Electrolyte Management: electrolyte supplement initiated fluids provided Problem: Infection Goal: Absence of Infection Signs and Symptoms Outcome: Ongoing, Not Progressing Intervention: Prevent or Manage Infection Flowsheets (Taken 09/02/20251813) Infection Management: aseptic technique maintained Fever Reduction/Comfort Measures: lightweight bedding lightweight clothing Isolation Precautions: precautions maintained contact * Progress Notes - Sheyla Malagon MD - 09/02/2025 2:28 PM EDT Subjective Eating better, no vomiting. Diarrhea worse today though. Review of Systems Current Scheduled Medications[1] Current Continuous Medications[2] Current PRN Medications[3] Objective Vitals Temp: [36.3 ??C (97.4 ??F)-36.7 ??C (98 ??F)] 36.6 ??C (97.8 ??F) Heart Rate: [70-85] 70 Resp: [14-20] 16 BP: (100-114)/(56-71) 114/71 Physical Exam HENT: Head: Normocephalic. Pulmonary: Effort: Pulmonary effort is normal. No respiratory distress. Abdominal: General: Abdomen is flat. Palpations: Abdomen is soft. Musculoskeletal: Right lower leg: No edema. Left lower leg: No edema. Skin: General: Skin is warm and dry. Neurological: Mental Status: He is alert and oriented to person, place, and time. Labs in last 18 hours CBC WBC 12.74 (H) Hb 7.0 (L) Plt 434 (H) Hct 21.2 (L) ANC 11.47 (H) INR ??, PTT ??, Anti-Xa ?? BMP Na 138 Cl 109 (H) BUN 26 (H) Glu 87 K 2.8 (L) Co2 21 (L) Cr 1.56 (H) Ca 7.2 (L) iCa ?? Mg 1.7 (L), Phos 2.1 (L) Lactate ?? LFT AST 24 AlkPhos 63 T Prot 3.8 (L) ALK 20 Bili 0.3 Alb ?? D.Bili ?? Assessment & Plan Sepsis (CMS/HCC) Neutropenic fever (CMS/HCC) Justin Best is a 69-year-old male with a known medical history of Poorly differentiated GEjunction adenocarcinoma, hypertension, and hyperlipidemia, Recently diagnosed AF (On Eliquis), presenting with fever, worsening epigastric pain, and poor oral intake following recent chemotherapy. 1.Clostridium difficile infection/ diarrhea in the setting of neutropenia: Patient is admitted to hospital medicine for Fever in Immunocompromised state and neutropenia. Infectious workup ordered. Patient received one of cefepime in ED. CXR WNL. C. Diff toxin and DNA positive. Contiinue with Dificid fidaxomicin 200 mg PO BID for 29 doses. Other cultures unrevealing so far. Last chemo was a week ago prior to coming into the hospital. Neutropenia has thankfully resolved. CRP elevated trend procalcitonin CRP and ESR- improving. 2.Acute kidney injury on CKD3a with metabolic acidosis Adjust medications, dw pharmacist Us without hydronephrosis. Recent contrast noted so this may be preciptating cause . Ua pending to eval for rodrigo Bernstein today.oliguric. called nephrology this am. He follows with Dr. Eros Mejia here as an outpt Cont ivf for now 3.Adenocarcinoma of GE junction & Worsening Cancer Related Pain & Inability to tolerate PO:Patient follows up with [facility] team. Patient is unable to tolerate PO diet (even liquids). Also his epigastric pain is worsening and uncontrolled. Epigastric tenderness +. Dw oncology today and MSI-H so there is a plan to transition to immunotherapy as outpt, likely ipi-nivo. Surgery planning underway- 6-12wks from now Oxycodone 5 mg x Q6 PRN. IVF while he is unable to tolerate PO. 4.Hypokalemia, hypophosphatemia, hypomagenesemia Monitored daily and replete 5.Atrial Fibrillation: Continue Eliquis Telemetry 6.hyponatremia- normalized FENGI: In full liquid diet, lactated Ringer's at 100 cc an hour DVT prophylaxis: Eliquis apixaban 5 mg by mouth he had GI prophylaxis: Protonix 40 mg by mouth daily before breakfast Code status: Full code Disposition: pt ot rec home w assist and walker. Not quite ready yet iso isr[place],and need for ivf. Medically Ready for Discharge: Medically Ready for Discharge: [1] apixaban, 5 mg, Oral, BID fidaxomicin, 200 mg, Oral, BID lidocaine, 5 mL, Swish & Swallow, Before meals & nightly magic mouthwash diphen/lido/kpbe-nnb-wfohkw, 15 mL, Swish & Spit, Before meals & nightly nystatin, 5 mL, Swish & Swallow, 4x daily pantoprazole, 40 mg, Oral, Daily before breakfast potassium & sodium phosphates, 1 packet, Oral, With meals & nightly rosuvastatin, 10 mg, Oral, Daily scopolamine, 1 patch, Transdermal, q72h sodium bicarbonate, 1,300 mg, Oral, BID [2] lactated Ringer's, 100 mL/hr, Last Rate: 100 mL/hr (09/02/25 0855) [3] PRN medications: HYDROcodone-acetaminophen, melatonin, ondansetron ODT OR ondansetron OR ondansetron, prochlorperazine OR prochlorperazine OR prochlorperazine OR prochlorperazine, prochlorperazine * Progress Notes - Kristen Toro RN - 09/02/2025 1:55 PM EDT Case Management Adult Progress Note Justin Best 70 y.o. male CSN: [id number] Admission: 08/26/2025 12:54 PM Primary Problem: Sepsis (CMS/HCC) Anticipated Discharge Date: dispo pending for weekend if symptoms managed for diarrhea, nausea. Medicare Second Notice: signed and placed on chart. Medically Ready for Discharge: Anticipated in 2-4 Days Additional Comments: per team, not yet medically ready for discharge. Reports ongoing diarrhea and nausea. PT/OT home with assistance and outpatient PT/OT. Script provided. Equipment recommended: rolling walker. [facility]erra/order sent to and accepted: [facility] [place], [place] phone [phone] Transport: family to provide. Kristen Toro, RN * Progress Notes - Abby Barker MD - 09/02/2025 12:57 PM EDT [facility] Progress Note Patient: Justin Best Admit Date: 08/26/2025 Subjective: No acute events overnight. Patient had 2.2L UOP yesterday and 700mL NG output. Still having diarrhea but remains greatly improved. Patient doing well overall. ROS: ROS was obtained in 14 points and is negative except otherwise as noted in the HPI. History: Past Medical History[1] Problem List[2] Surgical History[3] Family History[4] Social History Socioeconomic History Marital status: Spouse [...] on file Food Insecurity: No Food Insecurity (08/29/2025) Hunger Vital Sign Worried About Running Out of Food in the Last Year: Never true Ran Out of Food in the Last Year: Never true Transportation Needs: No Transportation Needs (08/29/2025) PRAPARE - Transportation Lack of Transportation (Medical): No Lack of Transportation (Non-Medical): No Physical Activity: Not on file Stress: Not on file Social Connections: Unknown (08/19/2023) Received from [facility] Family and Community Support Help with Day-to-Day Activities: Not on file Lonely or Isolated: Not on file Intimate Partner Violence: Not At Risk (08/29/2025) Humiliation, Afraid, Rape, and Kick questionnaire Fear of Current or Ex-Partner: No Emotionally Abused: No Physically Abused: No Sexually Abused: No Housing Stability: Unknown (08/29/2025) Housing Stability Vital Sign Unable to Pay for Housing in the Last Year: No Number of Times Moved in the Last Year: Not on file Homeless in the Last Year: No Allergies[5] Medications: Home Medications: Current Medications[6] Current Medications: Current Scheduled Medications[7] Current Continuous Medications[8] Physical Exam: Visit Vitals BP 114/71 (BP Location: Left arm, Patient Position: Lying) Pulse 70 Temp 36.6 ??C (97.8 ??F) (Oral) Resp 16 Ht 1.829 m (6') Wt 86.9 kg (191 lb 9.3 oz) SpO2 97% BMI 25.98 kg/m?? Smoking Status Never BSA 2.1 m?? Gen: Sitting up in bed; awake, alert, NAD CV: Regular rate, warm and well perfused Pulm: Normal respiratory effort, on RA Abd: Soft, non-tender, mildly distended. Ext: Trace edema Skin: No jaundice. No rashes noted on observed skin Neuro: Alert and oriented. Moving all extremities Laboratory: CBC: Results from last 7 days Lab Units 09/02/25 0306 09/01/25 0450 09/01/25 0405 08/31/25 0423 WBC 10*3/uL 12.74* -- 19.58* 23.23* HEMOGLOBIN g/dL 7.0* 7.7* 5.3* 8.7* HEMATOCRIT % 21.2* 22.8* 16.0* 25.9* PLATELETS 10*3/uL 434* -- 439* 358 CMP: Results from last 7 days Lab Units 09/02/25 0306 09/01/25 0405 08/31/25 1316 08/31/25 0423 SODIUM mmol/L 138 138 132* 126* POTASSIUM mmol/L 2.8* 3.0* 3.7 3.3* CHLORIDE mmol/L 109* 109* 104 101 CO2 mmol/L 21* 18* 13* 15* BUN mg/dL 26* 42* 53* 54* CREATININE mg/dL 1.56* 2.57* 4.14* 4.39* CALCIUM mg/dL 7.2* 7.5* 7.6* 7.7* BILIRUBIN TOTAL mg/dL 0.3 0.3 -- 0.3 ALKALINE PHOSPHATASE U/L 63 67 -- 71 ALT U/L 20 20 -- 22 AST U/L 24 25 -- 26 GLUCOSE mg/dL 87 91 100* 101* Impression & Plan: Mr. Justin Best is a 70 y.o. 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 Nephrology consulted for ISRRAEL on CKD. Assessment: #Non-oliguric ISRRAEL likely with ATN on CKD3a, KDIGO stage 3 - Baseline Cr ~1.3 - Cr 4.39 at time of consultation - Etiology likely significant pre-renal insult on baseline CKD3a in setting of profound GI losses due to C. diff infection. May also have component of urinary retention given 1.3L of UOP after placement of bernstein today. - UA 08/30 with >50 RBCs, trace ketones, 30 protein Repeat UA on 08/31 similar Urine sodium <20, urine osm 462 - Renal US 08/30: R kidney 10.8cm, L kidney 10.4cm. Normal echogenicity. No hydronephrosis, no calculi. #Cdiff infection - on fidaxomicin #Adenocarcinoma of GE junction - Follows with [facility] - Last chemo 08/18 using FLOT-D with plan to transition to immunotherapy outpatient #Hyponatremia #Hypokalemia #Metabolic acidosis #Azotemia #Hypoalbuminemia #Afib on apixaban #Anemia #HTN #BPH Recommendations and Plan: - Recommend discontinuing PO sodium bicarbonate - Please replace potassium - Renal function continues to improve and is almost returned to baseline - Please avoid nephrotoxic agents including NSAIDs and IV contrast as able - Replete electrolytes as needed but use caution given decreased renal function - Renally dose medications per eGFR Please call or page with any questions. Nephrology will sign-off at this time. Abby Barker MD Nephrology Fellow PGY-5 [1] Past Medical History: Diagnosis Date Blood urine 2023 Esophageal cancer june 2025 Hypertension 2000 Kidney stone Skin cancer 2004 Stomach cancer (CMS/HCC) june 2025 [2] Patient Active Problem List Diagnosis Stage 3a chronic kidney disease (CMS/HCC) Nephrolithiasis Essential hypertension Benign prostatic hyperplasia without lower urinary tract symptoms Adenocarcinoma of gastroesophageal junction Gastric adenocarcinoma (CMS/HCC) Epigastric pain Thyroid mass Sepsis (CMS/HCC) Neutropenic fever (CMS/HCC) [3] Past Surgical History: Procedure Laterality Date APPENDECTOMY 2020 BACK SURGERY 2001 CHOLECYSTECTOMY 1984 COLONOSCOPY 2023 GALLBLADDER SURGERY 1998 [4] Family History Problem Relation Name Age of Onset Cancer Father [5] Allergies Allergen Reactions Oxycodone Hallucinations Penicillins Unknown - Patient states they do not know rxn details Childhood allergy, thinks it was maybe a rash, but isn't sure [6] Current Facility-Administered Medications: apixaban (Eliquis) tablet 5 mg, 5 mg, Oral, BID, Evi Reeves MD, 5 mg at 09/02/25 0833 fidaxomicin (Dificid) tablet 200 mg, 200 mg, Oral, BID, Jadon Rangel MD, 200 mg at 09/02/25 08 HYDROcodone-acetaminophen ([place]) 5-325 MG per tablet 5 mg of hydrocodone, 5 mg of hydrocodone, Oral, q6h PRN, Jayne Abrams DO, 5 mg of hydrocodone at 09/01/252042 lactated Ringer's infusion, 100 mL/hr, Intravenous, Continuous, Sheyla Malagon MD, Last Rate: 100 mL/hr at 09/02/25 0855, 100 mL/hr at 09/02/25 0855 lidocaine (Xylocaine) 2 % solution 5 mL, 5 mL, Swish & Swallow, Before meals & nightly, Jadon Rangel MD, 5 mL at 09/02/25 1113 magic mouthwash BLM (FIRST-Mouthwash) suspension 15 mL, 15 mL, Swish & Spit, Before meals &nightly, Jadon Rangel MD, 15 mL at 09/02/25 1113 melatonin tablet 6 mg, 6 mg, Oral, Nightly PRN, Jayne Abrams DO, 6 mg at 09/01/25 204 nystatin (Mycostatin) 257201 UNIT/ML suspension 500,000 Units, 5 mL, Swish & Swallow, 4x daily,Jadon Rangel MD, 500,000 Units at 09/02/25 0834 ondansetron ODT (Zofran-ODT) disintegrating tablet 8 mg, 8 mg, Oral, q6h PRN OR ondansetron (Zofran) injection 8 mg, 8 mg, Intravenous, q6h PRN, 8 mg at 09/01/25 1719 OR ondansetron (Zofran) 4 MG/5ML solution 8 mg, 8 mg, Oral, q6h PRN, Jadon Rangel MD pantoprazole (Protonix) EC tablet 40 mg, 40 mg, Oral, Daily before breakfast, Jadon Rangel MD, 40 mg at 09/02/25 0833 potassium & sodium phosphates (Phos-NaK) 280-160-250 MG packet 1 packet, 1 packet, Oral, With meals & nightly, Sheyla Malagon MD, 1 packet at 09/02/25 0833 potassium chloride IVPB 20 mEq, 20 mEq, Intravenous, q2h, Sheyla Malagon MD, Last Rate: 25 mL/hr at 09/02/25 1113, 20 mEq at 09/02/25 1113 prochlorperazine (Compazine) tablet 5 mg, 5 mg, Oral, q6h PRN OR prochlorperazine (Compazine) suppository 25 mg, 25 mg, Rectal, q12h PRN OR prochlorperazine (Compazine) injection 2.5 mg, 2.5 mg, Intravenous, q6h PRN, 2.5 mg at 09/01/25 2043 OR prochlorperazine (Compazine) injection 5 mg, 5 mg, Intramuscular, q6h PRN, Sheyla Malagon MD prochlorperazine (Compazine) tablet 10 mg, 10 mg, Oral, q6h PRN, Evi Reeves MD, 10 mg at 08/28/25 0130 rosuvastatin (Crestor) tablet 10 mg, 10 mg, Oral, Daily, Evi Reeves MD, 10 mg at 09/02/25 0833 scopolamine (Transderm-Scop) patch 1 patch, 1 patch, Transdermal, q72h, Jadon Rangel MD, 1 patch at 08/30/25 1429 sodium bicarbonate tablet 1,300 mg, 1,300 mg, Oral, BID, Sheyla Malagon MD, 1,300 mg at 09/02/25 0834 [7] apixaban, 5 mg, Oral, BID fidaxomicin, 200 mg, Oral, BID lidocaine, 5 mL, Swish & Swallow, Before meals & nightly magic mouthwash diphen/lido/mxvx-jke-qehkvu, 15 mL, Swish & Spit, Before meals & nightly nystatin, 5 mL, Swish & Swallow, 4x daily pantoprazole, 40 mg, Oral, Daily before breakfast potassium & sodium phosphates, 1 packet, Oral, With meals & nightly potassium chloride, 20 mEq, Intravenous, q2h rosuvastatin, 10 mg, Oral, Daily scopolamine, 1 patch, Transdermal, q72h sodium bicarbonate, 1,300 mg, Oral, BID [8] lactated Ringer's, 100 mL/hr, Last Rate: 100 mL/hr (09/02/25 0855) Cosigned by Emmanuel López MD at 09/02/2025 1:02 PM EDT Associated attestation - Emmanuel López MD - 09/02/2025 1:02 PM EDT I saw and evaluated the patient with the resident/fellow. I discussed the case with the resident/fellow and agree with the findings and plan as documented. * Care Plan - Rebeca Baum RN - 09/01/2025 10:55 PM EDT Problem: Adult Inpatient Plan of Care Goal: Plan of Care Review Outcome: Ongoing, Not Progressing Flowsheets Taken 09/01/2025 1151 by Giovanna Washington RN Progress: no change Plan of Care Reviewed With: patient spouse Taken 08/26/2025 1977 by Aristides Villatoro RN Outcome Evaluation: Plan of care reviewed with pt and family at bedside. Verbalized understanding. Goal: Patient-Specific Goal (Individualized) Outcome: Ongoing, Progressing Flowsheets (Taken 09/01/2025 0800 by Giovanna Washington, RN) Patient/Family-Specific Goals (Include Timeframe): patient will remain free from injury during the shift Individualized Care Needs: Safety Anxieties, Fears or Concerns: none Goal: Absence of Hospital-Acquired Illness or Injury Outcome: Ongoing, Progressing Intervention: Identify and Manage Fall Risk Flowsheets (Taken 09/01/2025 1151 by Giovanna Washington, RN) Safety Promotion/Fall Prevention: activity supervised assistive device/personal items within reach clutter-free environment maintained fall prevention program maintained lighting adjusted nonskid shoes/slippers when out of bed room organization consistent safety round/check completed toileting scheduled Problem: Pain Acute Goal: Optimal Pain Control and Function Outcome: Ongoing, Progressing Intervention: Optimize Psychosocial Wellbeing Flowsheets (Taken 09/01/2025 115 by Giovanna Washington, RN) Diversional Activities: television Problem: Nausea and Vomiting Goal: Nausea and Vomiting Relief Outcome: Ongoing, Progressing Intervention: Prevent and Manage Nausea and Vomiting Flowsheets (Taken 09/01/2025 115 by Giovanna Washington, RN) Environmental Support: calm environment promoted caregiver consistency promoted comfort object encouraged distractions minimized environmental consistency promoted Problem: Electrolyte Imbalance Goal: Electrolyte Balance Outcome: Ongoing, Progressing Flowsheets (Taken 2025 0205 by Oksana Santos RN) Electrolyte Imbalance: Plan of Care: electrolyte balance Problem: Infection Goal: Absence of Infection Signs and Symptoms Outcome: Ongoing, Progressing Intervention: Prevent or Manage Infection Flowsheets (Taken 09/01/2025 115 by Giovanna Washington, RN) Fever Reduction/Comfort Measures: lightweight clothing lightweight bedding Problem: Skin Injury Risk Increased Goal: Skin Health and Integrity Outcome: Ongoing, Progressing Intervention: Optimize Skin Protection Flowsheets (Taken 09/01/20251999) Activity Management: activity adjusted per tolerance Problem: Fall Injury Risk Goal: Absence of Fall and Fall-Related Injury Outcome: Ongoing, Progressing Intervention: Identify and Manage Contributors Flowsheets (Taken 09/01/2025 115 by Giovanna Washington, RN) Medication Review/Management: medications reviewed * Progress Notes - Sheyla Malagon MD - 09/01/2025 11:58 AM EDT Subjective Diarrhea improved. LARGE vomiting this am. Review of Systems Current Scheduled Medications[1] Current Continuous Medications[2] Current PRN Medications[3] Objective Vitals Temp: [36.3 ??C (97.4 ??F)-36.6 ??C (97.9 ??F)] 36.6 ??C (97.9 ??F) Heart Rate: [75-96] 77 Resp: [18] 18 BP: (93-106)/(58-73) 93/58 Physical Exam Constitutional: Appearance: Normal appearance. Pulmonary: Effort: Pulmonary effort is normal. No respiratory distress. Musculoskeletal: Right lower leg: No edema. Left lower leg: No edema. Skin: General: Skin is warm and dry. Neurological: Mental Status: He is alert and oriented to person, place, and time. Labs in last 18 hours CBC WBC 19.58 (H) Hb 7.7 (L) Plt 439 (H) Hct 22.8 (L) ANC 16.64 (H) INR ??, PTT ??, Anti-Xa ?? BMP Na 138 Cl 109 (H) BUN 42 (H) Glu 91 K 3.0 (L) Co2 18 (L) Cr 2.57 (H) Ca 7.5 (L) iCa ?? Mg 2.0, Phos 3.1 Lactate ?? LFT AST 25 AlkPhos 67 T Prot 4.3 (L) ALK 20 Bili 0.3 Alb ?? D.Bili ?? Assessment & Plan Sepsis (CMS/HCC) Neutropenic fever (CMS/HCC) Justin Best is a 69-year-old male with a known medical history of Poorly differentiated GEjunction adenocarcinoma, hypertension, and hyperlipidemia, Recently diagnosed AF (On Eliquis), presenting with fever, worsening epigastric pain, and poor oral intake following recent chemotherapy. 1.Clostridium difficile infection/ diarrhea in the setting of neutropenia: Patient is admitted to hospital medicine for Fever in Immunocompromised state and neutropenia. Infectious workup ordered. Patient received one of cefepime in ED. CXR WNL. C. Diff toxin and DNA positive. Contiinue with Dificid fidaxomicin 200 mg PO BID for 29 doses. Other cultures unrevealing so far. Last chemo was a week ago prior to coming into the hospital. Neutropenia has thankfully resolved. CRP elevated trend procalcitonin CRP and ESR- improving. 2.Acute kidney injury on CKD3a with metabolic acidosis Adjust medications, dw pharmacist Us without hydronephrosis. Recent contrast noted so this may be preciptating cause . Ua pending to eval for casts Bernstein today.oliguric. called nephrology this am. He follows with Dr. Eros Mejia here as an outpt Changing ivf to bicarb gtts 3.Adenocarcinoma of GE junction & Worsening Cancer Related Pain & Inability to tolerate PO:Patient follows up with [facility] team. Patient is unable to tolerate PO diet (even liquids). Also his epigastric pain is worsening and uncontrolled. Epigastric tenderness +. Dw oncology today and MSI-H so there is a plan to transition to immunotherapy as outpt, likely ipi-nivo. Surgery planning underway- 6-12wks from now Oxycodone 5 mg x Q6 PRN. IVF while he is unable to tolerate PO. 4.Hypokalemia Monitored daily and replete 5.Atrial Fibrillation: Continue Eliquis Telemetry 6.hyponatremia- normalized FENGI: In full liquid diet, lactated Ringer's at 100 cc an hour DVT prophylaxis: Eliquis apixaban 5 mg by mouth he had GI prophylaxis: Protonix 40 mg by mouth daily before breakfast Code status: Full code Disposition: pt ot rec home w assist and walker. Not quite ready yet iso [place], vomiting req antiemetics and need for ivf. Medically Ready for Discharge: Medically Ready for Discharge: [1] apixaban, 5 mg, Oral, BID fidaxomicin, 200 mg, Oral, BID lidocaine, 5 mL, Swish & Swallow, Before meals & nightly magic mouthwash diphen/lido/mbid-wcd-jsnyqs, 15 mL, Swish & Spit, Before meals & nightly nystatin, 5 mL, Swish & Swallow, 4x daily pantoprazole, 40 mg, Oral, Daily before breakfast potassium chloride, 20 mEq, Oral, Once rosuvastatin, 10 mg, Oral, Daily scopolamine, 1 patch, Transdermal, q72h sodium bicarbonate, 1,300 mg, Oral, BID [2] lactated Ringer's, 100 mL/hr, Last Rate: 100 mL/hr (09/01/25 1347) [3] PRN medications: HYDROcodone-acetaminophen, melatonin, ondansetron ODT OR ondansetron OR ondansetron, prochlorperazine OR prochlorperazine OR prochlorperazine OR prochlorperazine, prochlorperazine * Care Plan - Giovanna Washington RN - 09/01/2025 11:57 AM EDT Problem: Adult Inpatient Plan of Care Goal: Plan of Care Review Outcome: Ongoing, Progressing Flowsheets (Taken 09/01/2025 115) Progress: no change Plan of Care Reviewed With: patient spouse Goal: Patient-Specific Goal (Individualized) Outcome: Ongoing, Progressing Flowsheets (Taken 09/01/2025 0800) Patient/Family-Specific Goals (Include Timeframe): patient will remain free from injury during the shift Individualized Care Needs: Safety Anxieties, Fears or Concerns: none Goal: Absence of Hospital-Acquired Illness or Injury Outcome: Ongoing, Progressing Intervention: Identify and Manage Fall Risk Flowsheets (Taken 09/01/2025 1151) Safety Promotion/Fall Prevention: activity supervised assistive device/personal items within reach clutter-free environment maintained fall prevention program maintained lighting adjusted nonskid shoes/slippers when out of bed room organization consistent safety round/check completed toileting scheduled Intervention: Prevent Skin Injury Flowsheets (Taken 09/01/2025 1151) Body Position: weight shifting Skin Protection: incontinence pads utilized protective footwear used Intervention: Prevent and Manage VTE (Venous Thromboembolism) Risk Flowsheets (Taken 09/01/2025 1151) VTE Prevention/Management: medication Intervention: Prevent Infection Flowsheets (Taken 09/01/2025 115) Infection Prevention: environmental surveillance performed equipment surfaces disinfected hand hygiene promoted personal protective equipment utilized single patient room provided Goal: Optimal Comfort and Wellbeing Outcome: Ongoing, Progressing Intervention: Monitor Pain and Promote Comfort Flowsheets (Taken 09/01/2025 1151) Pain Management Interventions: medication (see MAR) relaxation techniques promoted quiet environment facilitated therapeutic presence therapeutic touch Intervention: Provide Person-Centered Care Flowsheets (Taken 09/01/2025 1151) Trust Relationship/Rapport: care explained choices provided questions encouraged questions answered thoughts/feelings acknowledged reassurance provided emotional support provided empathic listening provided Problem: Pain Acute Goal: Optimal Pain Control and Function Outcome: Ongoing, Progressing Intervention: Optimize Psychosocial Wellbeing Flowsheets (Taken 09/01/2025 1151) Supportive Measures: relaxation techniques promoted self-responsibility promoted self-reflection promoted self-care encouraged decision-making supported guided imagery facilitated Diversional Activities: television Spiritual Activities Assistance: music provided Intervention: Develop Pain Management Plan Flowsheets (Taken 09/01/2025 1151) Pain Management Interventions: medication (see MAR) relaxation techniques promoted quiet environment facilitated therapeutic presence therapeutic touch Intervention: Prevent or Manage Pain Flowsheets (Taken 09/01/2025 1151) Sensory Stimulation Regulation: television on Complementary Therapy: music therapy provided Bowel Elimination Promotion: adequate fluid intake promoted privacy promoted diet adjusted Sleep/Rest Enhancement: awakenings minimized natural light exposure provided music provided therapeutic touch utilized relaxation techniques promoted Medication Review/Management: medications reviewed Problem: Nausea and Vomiting Goal: Nausea and Vomiting Relief Outcome: Ongoing, Progressing Intervention: Prevent and Manage Nausea and Vomiting Flowsheets (Taken 09/01/2025 1151) Fluid/Electrolyte Management: electrolyte supplement adjusted electrolyte-binding therapy initiated fluids provided fluids restricted Nausea/Vomiting Interventions: nausea triggers minimized Environmental Support: calm environment promoted caregiver consistency promoted comfort object encouraged distractions minimized environmental consistency promoted Oral Care: mouth suctioned with mouthwash education provided Problem: Electrolyte Imbalance Goal: Electrolyte Balance Outcome: Ongoing, Progressing Intervention: Monitor and Manage Electrolyte Imbalance Flowsheets (Taken 09/01/2025 1151) Fluid/Electrolyte Management: electrolyte supplement adjusted electrolyte-binding therapy initiated fluids provided fluids restricted Problem: Infection Goal: Absence of Infection Signs and Symptoms Outcome: Ongoing, Progressing Intervention: Prevent or Manage Infection Flowsheets (Taken 09/01/2025 1151) Fever Reduction/Comfort Measures: lightweight clothing lightweight bedding Isolation Precautions: precautions initiated protective Problem: Skin Injury Risk Increased Goal: Skin Health and Integrity Outcome: Ongoing, Progressing Intervention: Optimize Skin Protection Flowsheets (Taken 09/01/2025 1151) Activity Management: activity encouraged education provided Pressure Reduction Techniques: heels elevated off bed Pressure Reduction Devices: heel offloading device utilized Skin Protection: incontinence pads utilized protective footwear used Head of Bed (HOB) Positioning: HOB at 30-45 degrees Intervention: Promote and Optimize Oral Intake Flowsheets (Taken 09/01/2025 1151) Oral Nutrition Promotion: physical activity promoted Nutrition Interventions: meal set-up provided frequent small meals provided Problem: Fall Injury Risk Goal: Absence of Fall and Fall-Related Injury Outcome: Ongoing, Progressing Intervention: Identify and Manage Contributors Flowsheets (Taken 09/01/2025 1151) Medication Review/Management: medications reviewed Self-Care Promotion: independence encouraged Intervention: Promote Injury-Free Environment Flowsheets (Taken 09/01/2025 1151) Safety Promotion/Fall Prevention: activity supervised assistive device/personal items within reach clutter-free environment maintained fall prevention program maintained lighting adjusted nonskid shoes/slippers when out of bed room organization consistent safety round/check completed toileting scheduled * Progress Notes - Jose Wong - 09/01/2025 11:51 AM EDT OCCUPATIONAL THERAPY TREATMENT PATIENT DATA Patient Name Justin Best Session Date 09/01/2025 Total Treatment Time 28 OT Discharge Recommendations Home with assistance, Outpatient PT, Outpatient OT Equipment Recommendations Rolling walker PRECAUTIONS Mobility Guidelines There are no questions and answers to display. Medical Precautions Medical Precautions: Fall precautions PRESENTATION Oxygen Room Air Telemetry No Lines and Tubes Urethral Catheter Coude 16 Fr. (Active) Single Lumen Implantable Port 07/29/25 Right Chest (Active) Peripheral IV Left Antecubital (Active) Pre-Session Supine, Head of bed elevated, Lines intact RN agreeable to OT session. Post-Session Supine, Head of bed elevated, Lines intact, RN notified, Call light in reach All needsmet upon close of session. Spouse present at close of session. Bracing (if applicable) SUBJECTIVE PARTICIPANTS IN CARE Subjective Pt reports feeling much better today Visitors Present Spouse Time Study Observer (if applicable) OBJECTIVE PAIN No c/o pain DELIRIUM SCREENING RASS: Alert and calm Confusion Assessment Method-ICU (CAM-ICU/PCAM-ICU) Feature 3: Altered Level of Consciousness: Negative COGNITION SCREENING Overall Cognitive Status Within Functional Limits Arousal/Alertness Appropriate responses to stimuli Mood/Behavior Alert Orientation Oriented X4 Command Following Single Step Commands: Consistently Multi-Step Commands: Consistently Method of Communication Verbal Additional Observations INTERVENTIONS Bed Mobility Bed Mobility Exam: Scooting/Bridging Level of Hardy: Stand-by assist Physical/Nonphysical Assist: Verbal Cues, Minimal cues Assistive Device: Bed rails Bed Mobility Exam: Supine to Sit Level of Hardy: Stand-by assist Physical/Nonphysical Assist: Verbal Cues, Minimal cues Assistive Device: Bed rails Bed Mobility Exam: Sit to Supine Level of Hardy: Stand-by assist Physical/Nonphysical Assist: Verbal Cues, Minimal cues Assistive Device: Bed rails Transfers Transfer Exam: Sit to stand Level of Hardy: Contact guard Physical/Nonphysical Assist: Verbal Cues, Minimal cues Assistive Device: Walker, rolling Transfer Exam: Stand to Sit Level of Hardy: Contact guard Physical/Nonphysical Assist: Verbal Cues, Minimal cues Assistive Device: Walker, rolling Self-Care Interventions (28 minutes) Grooming Grooming Level of Assistance: SBA, Setup Grooming Where Assessed: Bed level Grooming Interventions: Pt stood from EOB with CGA and RW. Functional mobility performed into hallway to prep for navigating household distances as pt felt unable to reach bathroom yesterday, but reported feeling improvement today. Pt navigated hallway with RW and SBA to CGA. Occasional standing rest but overall tolerated well, navigating greater than household distances en route back to room. Upon return to room, pt returned to bed before agreeable to engage in oral hygiene. Reported fatigue and preferred to perform lying in bed as a result. SBA with setup to perform oral hygiene supine withHOB elevated. Lower Extremity Dressing Shoe Level of Assistance: Contact guard, Setup LE Dressing Where Assessed: Edge of bed LE Dressing Interventions: Pt donned loafers with CGA this date. Reports feet feel less swollen today, fit into shoes much easier as a result. ASSESSMENT Pt demonstrated improvement in activity tolerance today. Reports n/v earlier this morning but had time to rest and feels ready to increase activity this date. Navigated >300' in hallway with RW. Discharge recommendations changed from acute rehab to home with assist, outpatient OT/PT as a result this date. Pt motivated to return home at discharge to not disrupt outpatient cancer treatments. Continue OT POC. OT RECOMMENDATIONS Discharge Destination Home with assistance, Outpatient PT, Outpatient OT Discharge Equipment Rolling walker PLAN Progress OT POC as tolerated OT GOALS OT GOAL DETAILS Goal Established Date Time Frame Goal Status OT Goal 1: Pt will complete sit <> stand and toilet transfers with Mod(I) using AE PRN 08/31/25 2 weeks OT Goal 2: Pt will complete total body dressing independently 08/31/25 2 weeks OT Goal 3: Pt will complete grooming tasks independently while standing at sink level 08/31/25 2 weeks OT Goal 4: Pt will tolerate > 5 min standing functional task without requiring rest break or demonstrating LOB, as prep for engaging in standing ADL/IADL tasks 08/31/25 2 weeks Written by Jose Wong on 09/01/25 at 3:17 PM. * Progress Notes - Rebeca Villalba, PT - 09/01/2025 11:50 AM EDT PHYSICAL THERAPY TREATMENT PATIENT DATA Patient Name Justin Best Session Date 09/01/2025 Total Treatment Time 30 min PT Discharge Recommendations Home with assistance, Outpatient PT, Outpatient OT PT Equipment Recommendations Rolling walker PRECAUTIONS Weight Bearing Precautions (if applicable) ROM Restrictions (if applicable) Medical Precautions Yes Medical Precautions: Fall precautions HOME LIVING/SET-UP Lives With Spouse Home Type House Home Equipment shower chair, Rolling walker, Bedside commode Home Layout Two level, Able to live on one level with bedroom/bathroom (Ramp to enter) Bathroom Layout Tub/Shower combo, Grab bars, Shower chair Standard Additional Comments PRIOR LEVEL OF FUNCTION Receives help from No assist required prior to admission Level of Mobility Ambulatory- community Mobility Hardy Independent gait without device History of Falls No ADL Performance ADL Performance: Independent PRESENTATION Oxygen Oxygen Therapy: None (Room air) Lines and Tubes Urethral Catheter Coude 16 Fr. (Active) Single Lumen Implantable Port 07/29/25 Right Chest (Active) Peripheral IV Left Antecubital (Active) Pre-Session Supine, Head of bed elevated, Lines intact RN approved of session Post-Session Supine, Head of bed elevated, Lines intact, RN notified, Call light in reach All needsmet Bracing (if applicable) SUBJECTIVE PARTICIPANTS IN CARE Visitors Present Yes, Other (Specify), Spouse (Family friend stopped by during the beginning of thesession. Spouse joined mid-session.) Subjective Report Pt HAS been: * Transferring Bed <> Chair Pt remains unaware when pt may be discharged from [facility]. Time Study Observer (if applicable) Not Applicable OBJECTIVE & INTERVENTIONS PAIN Pt was without complaints of pain throughout the PT treatment. Prior to PT's departure: * rest was provided * pt was positioned for comfort * pillow support was provided DELIRIUM SCREENING RASS: Alert and calm Feature 3: Altered Level of Consciousness: Negative THERAPEUTIC ACTIVITY Treatment Minutes 15 BED MOBILITY Level of Hardy Physical/Non- physical Assist Adaptive Equipment Utilized Rolling/ Turning Scooting/ Bridging Stand-by assist Verbal Cues, Minimal cues Bed rails Supine to Sit Stand-by assist Verbal Cues, Minimal cues Bed rails Sit to Supine Stand-by assist Verbal Cues, Minimal cues Bed rails Interventions Pt was given verbal cues for hand placement, sequencing, safety awareness, weight shifting, and log rolling to improve bed mobility. Pt was educated to log roll to their right to transition into sitting. Pt requested to return to supine in the bed. TRANSFERS Level of Hardy Physical/Non- physical Assist Adaptive Equipment Utilized Sit to Stand Contact guard Verbal Cues, Minimal cues Walker, rolling Stand to sit Contact guard Verbal Cues, Minimal cues Walker, rolling Bed to Chair Toilet Transfer Shower Transfer Interventions Pt completed 1 STS. Pt was fitted with a RW. Pt was given verbal cues for hand placement, trunk control, sequencing, weight shifting, upright posture, safety awareness, and RW management. BALANCE Postural Appearance Posture: Rounded shoulders, Forward head Level of Hardy Balance Support Interventions Static Sit Supervision Left upper extremity support, Right upper extremity support, Feet supported Pt sat unsupported at the EOB for ~8 minutes. Dynamic Sit Standby assisst Right upper extremity support, Left upper extremity support, Feet supported Dynamic Sitting-Balance: Anterior/Posterior weight shifts, Lateral weight shifts Pt scooted anteriorly to the EOB. Pt was given verbal cues to weight shift from right <> leftto improve scooting. Pt was given verbal cues for hand placement. Pt completed ADLs while sitting in the bed. Static Stand Standby assist Right upper extremity support, Left upper extremity support (RW) Patient demonstrated forward head and rounded shoulders in standing. PT provided tactile cues at scapulae and thoracic spine to facilitate improved postural alignment. Verbal cues also given to reinforce awareness. Dynamic Stand Contact guard Right upper extremity support, Left upper extremity support (RW) Pt wasgiven verbal cues to weight shift from their RLE <> LLE to improve weight acceptance before mobilizing. GAIT TRAINING Treatment Minutes 15 Interventions PT presence was necessary for: * progressing patient ambulation distances * decreasing patient's risk of falling while progressing pt's distances Level of Hardy Distance Adaptive Equipment Utilized Gait Contact guard assist Pt ambulated ~250' on even ground. Rolling walker Gait Analysis/ Training Pt demonstrated decreased kelley, decreased arm swing, decreased step/stride length, and decreased endurance when ambulating. Pt was given verbal cues for RW management, safety awareness, and upright posture. Educated on self pacing/rest breaks for energy conservation. Pt needed increasedtime to ambulate. Standardized Assessments [facility] 6-Clicks Mobility Assessment Difficulty patient has turning over in bed (including adjusting bedclothes, sheets, and blankets)?:A little Difficulty patient has sitting down on and standing up from a chair with arms (wheelchair, bedside commode, etc.)?: A little Difficulty patient has moving from lying on back to sitting on the side of the bed?: A little How much help does the patient need moving to and from a bed to a chair (including a wheelchair)?: A little How much help does the patient need to walk in hospital room?: A little How much help does the patient need climbing 3-5 steps with a railing?: A lot [facility] 6-Clicks Mobility Assessment Total : 17 ASSESSMENT Pt is improving, as noted by: less assistance was required for pt to complete some or all transfers, pt demonstrated improved sitting and/or standing balance, and pt ambulated increased walking distances during this PT treatment compared to last PT treatment. Pt has the following impairments: impaired activity tolerance, gross functional weakness, impaired posture, and impaired balance, which is limiting the pt from performing independent functional mobility. PT educated pt/family about PT POC.Pt will benefit from skilled inpatient PT to improve functional mobility. PT recommends home with assistance upon discharge. Patient would benefit from having a rolling walker. Pt would further benefit from having outpatient PT and outpatient OT. PT RECOMMENDATIONS Discharge Destination Home with assistance, Outpatient PT, Outpatient OT Discharge Equipment Rolling walker PLAN Pt may continue to benefit from skilled PT for addressing patient's impairments and reducing patient's participation restrictions and activity limitations. PT GOALS PT GOAL DETAILS DATE ASSESSED STATUS PROGRESS PT Goal 1: Pt will improve AMPAC score equal or greater than 19 to demonstrate improved functional mobility. PT Goal 1 Established Date: 08/30/25 PT Goal 1 Time Frame: 2 weeks PT Goal 2: Pt will ambulate 100ft with CGA and LRAD to demonstrate improved household ambulation. PT Goal 2 Established Date: 08/30/25 PT Goal 2 Time Frame: 2 weeks 09/01/25 Goal met PT Goal 3: Pt will perform supine <> sit with SBA and HOB flat. PT Goal 3 Established Date: 08/30/25 PT Goal 3 Time Frame: 2 weeks PT Goal 4: Pt will perform STS with SBA and least restrictive AD to decrease caregiver burden. PT Goal 4 Established Date: 08/30/25 PT Goal 4 Time Frame: 2 weeks PT Goal 5: Pt/family will be independent with HEP and discharge recommendations. PT Goal 5 Established Date: 08/30/25 PT Goal 5 Time Frame: 2 weeks Written by Rebeca Villalba, PT on 09/01/25 at 12:15 PM. * Progress Notes - Joselyn Graham MD - 09/01/2025 8:06 AM EDT Nephrology Progress Note Patient: Justin Best Admit Date: 08/26/2025 Subjective: Patient made about 4.93L yesterday. Still having diarrhea but it is much improved. Hgb 5.3 with repeat 7.7. Repeat UA was similar to prior. Patient doing well overall. ROS: ROS was obtained in 14 points and is negative except otherwise as noted in the HPI. History: Past Medical History[1] Problem List[2] Surgical History[3] Family History[4] Social History Socioeconomic History Marital status: Spouse [...] on file Food Insecurity: No Food Insecurity (08/29/2025) Hunger Vital Sign Worried About Running Out of Food in the Last Year: Never true Ran Out of Food in the Last Year: Never true Transportation Needs: No Transportation Needs (08/29/2025) PRAPARE - Transportation Lack of Transportation (Medical): No Lack of Transportation (Non-Medical): No Physical Activity: Not on file Stress: Not on file Social Connections: Unknown (08/19/2023) Received from [facility] Family and Community Support Help with Day-to-Day Activities: Not on file Lonely or Isolated: Not on file Intimate Partner Violence: Not At Risk (08/29/2025) Humiliation, Afraid, Rape, and Kick questionnaire Fear of Current or Ex-Partner: No Emotionally Abused: No Physically Abused: No Sexually Abused: No Housing Stability: Unknown (08/29/2025) Housing Stability Vital Sign Unable to Pay for Housing in the Last Year: No Number of Times Moved in the Last Year: Not on file Homeless in the Last Year: No Allergies[5] Medications: Home Medications: Current Medications[6] Current Medications: Current Scheduled Medications[7] Current Continuous Medications[8] Physical Exam: Visit Vitals BP 105/64 Pulse 78 Temp 36.5 ??C (97.7 ??F) Resp 18 Ht 1.829 m (6') Wt 86.9 kg (191 lb 9.3 oz) SpO2 98% BMI 25.98 kg/m?? Smoking Status Never BSA 2.1 m?? Gen: Sitting up in bed; awake, alert, NAD CV: Regular rate, warm and well perfused Pulm: Normal respiratory effort, on RA Abd: Soft, non-tender, mildly distended. Ext: Trace edema Skin: No jaundice. No rashes noted on observed skin Neuro: Alert and oriented. Moving all extremities Laboratory: CBC: Results from last 7 days Lab Units 09/01/25 0450 09/01/25 0405 08/31/25 0423 08/30/25 0103 WBC 10*3/uL -- 19.58* 23.23* 18.23* HEMOGLOBIN g/dL 7.7* 5.3* 8.7* 9.3* HEMATOCRIT % 22.8* 16.0* 25.9* 27.4* PLATELETS 10*3/uL -- 439* 358 332 CMP: Results from last 7 days Lab Units 09/01/25 0405 08/31/25 1316 08/31/25 0423 08/30/25 0103 SODIUM mmol/L 138 132* 126* 128* POTASSIUM mmol/L 3.0* 3.7 3.3* 3.7 CHLORIDE mmol/L 109* 104 101 104 CO2 mmol/L 18* 13* 15* 15* BUN mg/dL 42* 53* 54* 45* CREATININE mg/dL 2.57* 4.14* 4.39* 3.66* CALCIUM mg/dL 7.5* 7.6* 7.7* 7.6* BILIRUBIN TOTAL mg/dL 0.3 -- 0.3 0.3 ALKALINE PHOSPHATASE U/L 67 -- 71 66 ALT U/L 20 -- 22 20 AST U/L 25 -- 26 27 GLUCOSE mg/dL 91 100* 101* 128* Impression & Plan: Mr. Justin Best is a 70 y.o. 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 Nephrology consulted for ISRRAEL on CKD. Assessment: #Non-oliguric ISRRAEL likely with ATN on CKD3a, KDIGO stage 3 - Baseline Cr ~1.3 - Cr 4.39 at time of consultation - Etiology likely significant pre-renal insult on baseline CKD3a in setting of profound GI losses due to C. diff infection. May also have component of urinary retention given 1.3L of UOP after placement of bernstein today. - UA 08/30 with >50 RBCs, trace ketones, 30 protein Repeat UA on 08/31 similar Urine sodium <20, urine osm 462 - Renal US 08/30: R kidney 10.8cm, L kidney 10.4cm. Normal echogenicity. No hydronephrosis, no calculi. #Cdiff infection - on fidaxomicin #Adenocarcinoma of GE junction - Follows with [facility] - Last chemo 08/18 using FLOT-D with plan to transition to immunotherapy outpatient #Hyponatremia #Hypokalemia #Metabolic acidosis #Azotemia #Hypoalbuminemia #Afib on apixaban #Anemia #HTN #BPH Recommendations and Plan: - Recommend continuing PO sodium bicarbonate 1300mg BID - Recommend continuing IV fluids with LR at 100ml/hr since patient urinated almost 5L yesterday. Will reassess tomorrow if need to continue IVF. - Recommend potassium replacement. - No acute indications for [employer] REPRESENT[employer]IVE at this time - Please avoid nephrotoxic agents including NSAIDs and IV contrast as able - Replete electrolytes as needed but use caution given decreased renal function - Renally dose medications per eGFR Please call or page with any questions. Nephrology will continue to follow. Joselyn Graham MD PGY-3, Internal Medicine [1] Past Medical History: Diagnosis Date Blood urine 2023 Esophageal cancer june 2025 Hypertension 1999 Kidney stone Skin cancer 2004 Stomach cancer (CMS/HCC) june 2025 [2] Patient Active Problem List Diagnosis Stage 3a chronic kidney disease (CMS/HCC) Nephrolithiasis Essential hypertension Benign prostatic hyperplasia without lower urinary tract symptoms Adenocarcinoma of gastroesophageal junction Gastric adenocarcinoma (CMS/HCC) Epigastric pain Thyroid mass Sepsis (CMS/HCC) Neutropenic fever (CMS/HCC) [3] Past Surgical History: Procedure Laterality Date APPENDECTOMY 2020 BACK SURGERY 2001 CHOLECYSTECTOMY 1984 COLONOSCOPY 2023 GALLBLADDER SURGERY 1998 [4] Family History Problem Relation Name Age of Onset Cancer Father [5] Allergies Allergen Reactions Oxycodone Hallucinations Penicillins Unknown - Patient states they do not know rxn details Childhood allergy, thinks it was maybe a rash, but isn't sure [6] Current Facility-Administered Medications: apixaban (Eliquis) tablet 5 mg, 5 mg, Oral, BID, Evi Reeves MD, 5 mg at 08/31/252103 fidaxomicin (Dificid) tablet 200 mg, 200 mg, Oral, BID, Jadon Rangel MD, 200 mg at 08/31/252103 HYDROcodone-acetaminophen ([place]) 5-325 MG per tablet 5 mg of hydrocodone, 5 mg of hydrocodone, Oral, q6h PRN, Jayne Abrams DO, 5 mg of hydrocodone at 08/31/252129 lactated Ringer's infusion, 100 mL/hr, Intravenous, Continuous, Sheyla Malagon MD, Last Rate: 100 mL/hr at 08/31/25 1302, 100 mL/hr at 08/31/25 1302 lidocaine (Xylocaine) 2 % solution 5 mL, 5 mL, Swish & Swallow, Before meals & nightly, Jadon Rangel MD, 5 mL at 08/29/25 1714 magic mouthwash BLM (FIRST-Mouthwash) suspension 15 mL, 15 mL, Swish & Spit, Before meals &nightly, Jadon Rangel MD, 15 mL at 08/29/25 1714 melatonin tablet 6 mg, 6 mg, Oral, Nightly PRN, Jayne Abrams DO, 6 mg at 08/31/252103 mupirocin (Bactroban) 2 % ointment 1 Application, 1 Application, Each Nostril, BID, Jadon Rangel MD, 1 Application at 08/31/252103 nystatin (Mycostatin) 502510 UNIT/ML suspension 500,000 Units, 5 mL, Swish & Swallow, 4x daily,Jadon Rangel MD, 500,000 Units at 08/31/252103 ondansetron ODT (Zofran-ODT) disintegrating tablet 8 mg, 8 mg, Oral, q6h PRN OR ondansetron (Zofran) injection 8 mg, 8 mg, Intravenous, q6h PRN, 8 mg at 08/30/25 1347 OR ondansetron (Zofran) 4 MG/5ML solution 8 mg, 8 mg, Oral, q6h PRN, Jadon Rangel MD pantoprazole (Protonix) EC tablet 40 mg, 40 mg, Oral, Daily before breakfast, Jadon Rangel MD, 40 mg at 08/31/25 0657 prochlorperazine (Compazine) tablet 5 mg, 5 mg, Oral, q6h PRN OR prochlorperazine (Compazine) suppository 25 mg, 25 mg, Rectal, q12h PRN OR prochlorperazine (Compazine) injection 2.5 mg, 2.5 mg, Intravenous, q6h PRN, 2.5 mg at 08/27/25 1737 OR prochlorperazine (Compazine) injection 5 mg, 5 mg, Intramuscular, q6h PRN, Jadon Rangel MD prochlorperazine (Compazine) tablet 10 mg, 10 mg, Oral, q6h PRN, Evi Reeves MD, 10 mg at 08/28/25 0130 rosuvastatin (Crestor) tablet 10 mg, 10 mg, Oral, Daily, Evi Reeves MD, 10 mg at 08/31/25 0909 scopolamine (Transderm-Scop) patch 1 patch, 1 patch, Transdermal, q72h, Jadon Rangel MD, 1 patch at 08/30/25 1429 sodium bicarbonate tablet 1,300 mg, 1,300 mg, Oral, BID, Sheyla Malagon MD, 1,300 mg at 08/31/25 2104 [7] apixaban, 5 mg, Oral, BID fidaxomicin, 200 mg, Oral, BID lidocaine, 5 mL, Swish & Swallow, Before meals & nightly magic mouthwash diphen/lido/xjgy-vie-cqrpiz, 15 mL, Swish & Spit, Before meals & nightly mupirocin, 1 Application, Each Nostril, BID nystatin, 5 mL, Swish & Swallow, 4x daily pantoprazole, 40 mg, Oral, Daily before breakfast rosuvastatin, 10 mg, Oral, Daily scopolamine, 1 patch, Transdermal, q72h sodium bicarbonate, 1,300 mg, Oral, BID [8] lactated Ringer's, 100 mL/hr, Last Rate: 100 mL/hr (08/31/25 1302) Cosigned by Emmanuel López MD at 09/01/2025 8:26 PM EDT Associated attestation - Emmanuel López MD - 09/01/2025 8:26 PM EDT I saw and evaluated the patient with the resident/fellow. I discussed the case with the resident/fellow and agree with the findings and plan as documented. * Care Plan - Rebeca Baum RN - 2025 10:21 PM EDT Problem: Adult Inpatient Plan of Care Goal: Plan of Care Review Outcome: Ongoing, Progressing Flowsheets Taken 08/31/2025204 by Oksana Santos RN Progress: no change Plan of Care Reviewed With: patient family Taken 08/26/20252246 by Aristides Villatoro RN Outcome Evaluation: Plan of care reviewed with pt and family at bedside. Verbalized understanding. Goal: Patient-Specific Goal (Individualized) Outcome: Ongoing, Progressing Flowsheets (Taken 08/31/20251999) Patient/Family-Specific Goals (Include Timeframe): patient will remain free from falls and injury Individualized Care Needs: none expressed Anxieties, Fears or Concerns: diarrhea Goal: Absence of Hospital-Acquired Illness or Injury Outcome: Ongoing, Progressing Goal: Optimal Comfort and Wellbeing Outcome: Ongoing, Progressing Intervention: Monitor Pain and Promote Comfort Flowsheets (Taken 08/31/2025204 by Oksana Santos, RN) Pain Management Interventions: rest pillow support provided relaxation techniques promoted position adjusted emotional support care clustered Problem: Pain Acute Goal: Optimal Pain Control and Function Outcome: Ongoing, Progressing Intervention: Optimize Psychosocial Wellbeing Flowsheets (Taken 08/31/2025204 by Oksana Santos, RN) Diversional Activities: television smartphone Problem: Nausea and Vomiting Goal: Nausea and Vomiting Relief Outcome: Ongoing, Progressing Intervention: Prevent and Manage Nausea and Vomiting Flowsheets (Taken 08/31/2025204 by Oksana Santos, RN) Environmental Support: calm environment promoted environmental consistency promoted caregiver consistency promoted rest periods encouraged personal routine supported Problem: Electrolyte Imbalance Goal: Electrolyte Balance Outcome: Ongoing, Progressing Intervention: Monitor and Manage Electrolyte Imbalance Flowsheets (Taken 2025 1555 by Marcia Adams RN) Fluid/Electrolyte Management: fluids restricted intravenous fluid replacement initiated Problem: Infection Goal: Absence of Infection Signs and Symptoms Outcome: Ongoing, Progressing Intervention: Prevent or Manage Infection Flowsheets Taken 08/31/20251999 by Rebeca Baum RN Isolation Precautions: precautions maintained Taken 08/31/2025204 by Oksana Santos RN Infection Management: aseptic technique maintained Fever Reduction/Comfort Measures: fluid intake increased lightweight bedding lightweight clothing Problem: Skin Injury Risk Increased Goal: Skin Health and Integrity Outcome: Ongoing, Progressing Intervention: Promote and Optimize Oral Intake Flowsheets (Taken 2025 0205 by Oksana Santos, RN) Nutrition Interventions: food preferences provided Problem: Fall Injury Risk Goal: Absence of Fall and Fall-Related Injury Outcome: Ongoing, Progressing Intervention: Identify and Manage Contributors Flowsheets (Taken 2025 0205 by Oksana Santos, RN) Medication Review/Management: medications reviewed * Care Plan - Marcia Adams RN - 2025 3:56 PM EDT Problem: Adult Inpatient Plan of Care Goal: Plan of Care Review Outcome: Ongoing, Progressing Goal: Patient-Specific Goal (Individualized) Outcome: Ongoing, Progressing Flowsheets (Taken 2025 1330) Patient/Family-Specific Goals (Include Timeframe): patient will report decrease in burning with urination post bernstein placement Individualized Care Needs: ongoing, bernstein care, Anxieties, Fears or Concerns: kidney injury Goal: Absence of Hospital-Acquired Illness or Injury Outcome: Ongoing, Progressing Intervention: Identify and Manage Fall Risk Flowsheets (Taken 2025 1555) Safety Promotion/Fall Prevention: activity supervised assistive device/personal items within reach clutter-free environment maintained fall prevention program maintained Intervention: Prevent Skin Injury Flowsheets (Taken 2025 1555) Body Position: sitting up in bed Intervention: Prevent and Manage VTE (Venous Thromboembolism) Risk Flowsheets (Taken 2025 1555) VTE Prevention/Management: bilateral SCDs (sequential compression devices) off Intervention: Prevent Infection Flowsheets (Taken 2025 1555) Infection Prevention: cohorting utilized environmental surveillance performed hand hygiene promoted Goal: Optimal Comfort and Wellbeing Outcome: Ongoing, Progressing Intervention: Provide Person-Centered Care Flowsheets (Taken 2025 1555) Trust Relationship/Rapport: empathic listening provided care explained choices provided questions encouraged emotional support provided questions answered Problem: Pain Acute Goal: Optimal Pain Control and Function Outcome: Ongoing, Progressing Problem: Nausea and Vomiting Goal: Nausea and Vomiting Relief Outcome: Ongoing, Progressing Problem: Electrolyte Imbalance Goal: Electrolyte Balance Outcome: Ongoing, Progressing Intervention: Monitor and Manage Electrolyte Imbalance Flowsheets (Taken 2025 0895) Fluid/Electrolyte Management: fluids restricted intravenous fluid replacement initiated Problem: Skin Injury Risk Increased Goal: Skin Health and Integrity Outcome: Ongoing, Progressing Problem: Infection Goal: Absence of Infection Signs and Symptoms Outcome: Ongoing, Progressing Problem: Fall Injury Risk Goal: Absence of Fall and Fall-Related Injury Outcome: Ongoing, Progressing * Progress Notes - Taco Russell, RELEASE MANAGER - 2025 2:20 PM EDT Medical Oncology Consult Follow-Up Note 08/31/25 Patient Care Team: Darius Ken MD as PCP - General (Internal Medicine) Subjective: Today is Patient's birthday. PT seen resting in bed with at bedside. Decrease urinary output over night. Diarrhea improved approx 1 bm per day now. Bernstein placed for retention. Continues decreaseoral intake. PMH, Surg History, Social History, Family History and current medications reviewed and unchanged from last encounter or updated as indicated. ROS: 14 point review of systems completed and negative unless stated above. Objective: Visit Vitals BP 95/62 (BP Location: Left arm, Patient Position: Lying) Pulse (!) 113 Temp 36.3 ??C (97.3 ??F) (Oral) Resp 18 ECO-2 General: Lying/resting comfortably in bed, Pale and ill appearing; NAD HEENT: NCAT, PERRLA/EOMI, anicteric; no oral lesions Neck: Supple, no JVD Heart: RRR, no MGR Lungs: CTAB; no rales, rhonchi or wheezes; O2 room air Abdomen: Soft, NTND, + BS : Bernstein inplace Extremities: No edema Musculoskeletal: No focal tenderness or deformity Skin: Cardiac patch monitor on chest; No visible rashes or lesions Neuro: Grossly nonfocal; no localizing deficits of strength, sensation, or mentation Psychiatric: Normal mood and thought content Labs: Labs in last 18 hours CBC WBC 23.23 (H) Hb 8.7 (L) Plt 358 Hct 25.9 (L) ANC 20.44 (H) INR ??, PTT ??, Anti-Xa ?? BMP Na 126 (L) Cl 101 BUN 54 (H) Glu 101 (H) K 3.3 (L) Co2 15 (L) Cr 4.39 (H) Ca 7.7 (L) iCa ?? Mg 2.0, Phos 3.8 Lactate ?? LFT AST 26 AlkPhos 71 T Prot 4.5 (L) ALK 22 Bili 0.3 Alb ?? D.Bili ?? No results found for: UTPCR No results found for: TSH , FREET4 No results found for: CEA , CA199 , AFP Labs personally reviewed Imaging: As noted in HPI if relevant. Assessment/Plan: Justin Best 69 y.o. male with newly diagnosed adenocarcinoma of gastroesophageal junctions. Medical oncology consulted for plan of care and management. #Gastroesophageal junctions adenocarcinoma. - Followed by Dr. Reina in [facility] - Co-managed with Dr. Kim Marcano with thoracic surgery. 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 Pylori negative NGS pending - Patient express wishes to stop chemotherapy and pursue immunotherapy treatment - F/U [facility] 09/08 #Clostridium difficile infection. - Stool test of 08/26 positive for C. difficile. - Dificid has been started 08/28 - #Atrial fibrillation - Currently in sinus rhythm - Currently taking Eliquis - Cardiac patch monitor in place - Cardiology appt 09/21/25 #Chemo induced N/V - Post-chemotherapy complications of significant nausea & vomiting. - Continue PRN Zofran and Compazine -currently effective #ISRRAEL - Creatinine 4.14 - UA negative - Bernstein placed for urinary retention - Nephology consulted Plan: - Nephology consulted - Continue PRN Zofran and Compazine -currently effective - Continue Dificid 10 days for c-diff (started 08/28) - Contact Precautions required for c-diff and importance of maintaining hand hygiene to prevent itsspread. - Advised to keep the cardiology appointment as atrial fibrillation - Stage/Grade -pending staging scans - NGS pending - F/U [facility] 09/08 Medical oncology will continue to follow. Please call with additional questions or concerns. 35 minutes was spent on this encounter; including preparing to see the patient, which involved review/interpretation of diagnostics and reports; obtaining and/or reviewing separately obtained history; performing appropriate physical exam; ordering/scheduling medications, tests or procedures; communicating findings and counseling/educating the patient, family and/or caregiver; documentation in EMR; and care coordination. The selection, dosing and administration of anti-cancer agents and the management of associated toxicities requires complex medical decision making and intensive monitoring for toxicity. Modifications of drug dose and schedule as well as the initiation of supportive care interventions are often necessary because of expected toxicities. This varies individually based on patient tolerability, priortreatments and comorbidities/risk status. Monitoring typically entails labs, imaging and/or other diagnostics, utilizing a healthcare delivery team experienced in the use of anticancer agents and themanagement of associated toxicities in patients with cancer. Attending physician previously developed plan of care, which I discussed with the patient, whom I saw independently. The patient verbalized understanding and agrees with plan. All questions answered to their satisfaction. Encouraged to call should other questions/concerns arise. Taco Russell APRN Division of Medical Oncology [facility] * Consults - Abby Barker MD - 2025 12:32 PM EDTAssociated Order(s): IP CONSULT TO NEPHROLOGY Nephrology Consult Note Patient: Justin Best Admit Date: 08/26/2025 Date of Consult: 2025 Time of Consult: 12:32 PM Requesting Attending: Sheyla Malagon MD Reason for Consult: ISRRAEL HPI: Mr. Justin Best is a 70 y.o. male with a history of HTN, BPH, recurrent nephrolithiasis, and adenocarcinoma of GE junction on chemo who was admitted to [facility] on 08/26 for profound diarrhea and poor PO intake. Nephrology consulted on 08/31 for ISRRAEL on CKD. Work-up notable for Cdiff infection for which he is now on fidaxomicin. States prior to admission was having significant diarrhea with unmeasurable amount of pur liquid output. Limited PO intake during this time as well. Diarrhea has now improved but remains with minimal PO intake. Denies any shortness of breath or LE edema. ROS: ROS was obtained in 14 points and is negative except otherwise as noted in the HPI. History: Past Medical History[1] Problem List[2] Surgical History[3] Family History[4] Social History Socioeconomic History Marital status: Spouse [...] on file Food Insecurity: No Food Insecurity (08/29/2025) Hunger Vital Sign Worried About Running Out of Food in the Last Year: Never true Ran Out of Food in the Last Year: Never true Transportation Needs: No Transportation Needs (08/29/2025) PRAPARE - Transportation Lack of Transportation (Medical): No Lack of Transportation (Non-Medical): No Physical Activity: Not on file Stress: Not on file Social Connections: Unknown (08/19/2023) Received from [facility] Family and Community Support Help with Day-to-Day Activities: Not on file Lonely or Isolated: Not on file Intimate Partner Violence: Not At Risk (08/29/2025) Humiliation, Afraid, Rape, and Kick questionnaire Fear of Current or Ex-Partner: No Emotionally Abused: No Physically Abused: No Sexually Abused: No Housing Stability: Unknown (08/29/2025) Housing Stability Vital Sign Unable to Pay for Housing in the Last Year: No Number of Times Moved in the Last Year: Not on file Homeless in the Last Year: No Allergies[5] Medications: Home Medications: Current Medications[6] Current Medications: Current Scheduled Medications[7] Current Continuous Medications[8] Physical Exam: Visit Vitals BP 95/62 (BP Location: Left arm, Patient Position: Lying) Pulse (!) 113 Temp 36.3 ??C (97.3 ??F) (Oral) Resp 18 Ht 1.829 m (6') Wt 86.9 kg (191 lb 9.3 oz) SpO2 97% BMI 25.98 kg/m?? Smoking Status Never BSA 2.1 m?? Gen: Sitting up in bed; awake, alert, NAD HEENT: MMM, OP clear without lesions or exudate Neck: Supple CV: Warm and well perfused Pulm: Normal respiratory effort, on RA Abd: Soft, non-tender, non-distended. Ext: Trace edema Skin: No jaundice. No rashes noted on observed skin Neuro: Alert and oriented. Moving all extremities Laboratory: CBC: Results from last 7 days Lab Units 08/31/25 0423 08/30/253 08/29/25 0303 WBC 10*3/uL 23.23* 18.23* 13.36* HEMOGLOBIN g/dL 8.7* 9.3* 8.7* HEMATOCRIT % 25.9* 27.4* 25.8* PLATELETS 10*3/uL 358 332 244 CMP: Results from last 7 days Lab Units 08/31/253 08/30/253 08/29/25 0303 SODIUM mmol/L 126* 128* 133* POTASSIUM mmol/L 3.3* 3.7 3.6 CHLORIDE mmol/L 101 104 106 CO2 mmol/L 15* 15* 17* BUN mg/dL 54* 45* 43* CREATININE mg/dL 4.39* 3.66* 2.40* CALCIUM mg/dL 7.7* 7.6* 7.8* BILIRUBIN TOTAL mg/dL 0.3 0.3 0.3 ALKALINE PHOSPHATASE U/L 71 66 61 ALT U/L 22 20 19 AST U/L 26 27 21 GLUCOSE mg/dL 101* 128* 113* Impression & Plan: Mr. Justin Best is a 70 y.o. 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 Nephrology consulted for ISRRAEL on CKD. Assessment: #Non-oliguric ISRRAEL likely with ATN on CKD3a, KDIGO stage 3 - Baseline Cr ~1.3 - Cr 4.39 at time of consultation - Etiology likely significant pre-renal insult on baseline CKD3a in setting of profound GI losses due to C diff infection. May also have component of urinary retention given 1.3L of UOP after placement of bernstein today. - UA 08/30 with >50 RBCs, trace ketones, 30 protein - Renal US 08/30: R kidney 10.8cm, L kidney 10.4cm. Normal echogenicity. No hydronephrosis, no calculi. 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 - Recommend PO sodium bicarbonate 1300mg BID; do not recommend bicarb drip at this time - Recommend IV fluids with LR at 100ml/hr - Please avoid nephrotoxic agents including NSAIDs and IV contrast as able - Replete electrolytes as needed but use caution given decreased renal function - Renally dose medications per eGFR Please call or page with any questions. Nephrology will continue to follow. Abby Barker MD Nephrology Fellow PGY-5 Page: [phone] [1] Past Medical History: Diagnosis Date Blood urine 2023 Esophageal cancer june 2025 Hypertension 1999 Kidney stone Skin cancer 2004 Stomach cancer (CMS/HCC) june 2025 [2] Patient Active Problem List Diagnosis Stage 3a chronic kidney disease (CMS/HCC) Nephrolithiasis Essential hypertension Benign prostatic hyperplasia without lower urinary tract symptoms Adenocarcinoma of gastroesophageal junction Gastric adenocarcinoma (CMS/HCC) Epigastric pain Thyroid mass Sepsis (CMS/HCC) [3] Past Surgical History: Procedure Laterality Date APPENDECTOMY 2020 BACK SURGERY 2001 CHOLECYSTECTOMY 1985 COLONOSCOPY 2023 GALLBLADDER SURGERY 1998 [4] Family History Problem Relation Name Age of Onset Cancer Father [5] Allergies Allergen Reactions Oxycodone Hallucinations Penicillins Unknown - Patient states they do not know rxn details Childhood allergy, thinks it was maybe a rash, but isn't sure [6] Current Facility-Administered Medications: apixaban (Eliquis) tablet 5 mg, 5 mg, Oral, BID, Evi Reeves MD, 5 mg at 08/31/25 0909 fidaxomicin (Dificid) tablet 200 mg, 200 mg, Oral, BID, Jadon Ragnel MD, 200 mg at 08/31/25 0909 HYDROcodone-acetaminophen ([place]) 5-325 MG per tablet 5 mg of hydrocodone, 5 mg of hydrocodone, Oral, q6h PRN, Jayne Abrams, DO, 5 mg of hydrocodone at 08/30/25 210 lidocaine (Uro-Jet) 2 % gel 1 Application, 1 Application, Urethral, PRN, Sheyla Malagon MD lidocaine (Xylocaine) 2 % solution 5 mL, 5 mL, Swish & Swallow, Before meals & nightly, Jadon Rangel MD, 5 mL at 08/29/25 171 magic mouthwash BLM (FIRST-Mouthwash) suspension 15 mL, 15 mL, Swish & Spit, Before meals &nightly, Jadon Rangel MD, 15 mL at 08/29/25 171 melatonin tablet 6 mg, 6 mg, Oral, Nightly PRN, Jayne Abrams, DO, 6 mg at 08/30/252103 mupirocin (Bactroban) 2 % ointment 1 Application, 1 Application, Each Nostril, BID, Jadon Rangel MD, 1 Application at 08/31/25 0910 nystatin (Mycostatin) 738754 UNIT/ML suspension 500,000 Units, 5 mL, Swish & Swallow, 4x daily,Jadon Rangel MD, 500,000 Units at 08/31/25 0909 ondansetron ODT (Zofran-ODT) disintegrating tablet 8 mg, 8 mg, Oral, q6h PRN OR ondansetron (Zofran) injection 8 mg, 8 mg, Intravenous, q6h PRN, 8 mg at 08/30/25 1347 OR ondansetron (Zofran) 4 MG/5ML solution 8 mg, 8 mg, Oral, q6h PRN, Jadon Rangel MD pantoprazole (Protonix) EC tablet 40 mg, 40 mg, Oral, Daily before breakfast, Jadon Rangel MD, 40 mg at 08/31/25 0657 prochlorperazine (Compazine) tablet 5 mg, 5 mg, Oral, q6h PRN OR prochlorperazine (Compazine) suppository 25 mg, 25 mg, Rectal, q12h PRN OR prochlorperazine (Compazine) injection 2.5 mg, 2.5 mg, Intravenous, q6h PRN, 2.5 mg at 08/27/25 1737 OR prochlorperazine (Compazine) injection 5 mg, 5 mg, Intramuscular, q6h PRN, Jadon Rangel MD prochlorperazine (Compazine) tablet 10 mg, 10 mg, Oral, q6h PRN, Evi Reeves MD, 10 mg at 08/28/25 0130 rosuvastatin (Crestor) tablet 10 mg, 10 mg, Oral, Daily, Evi Reeves MD, 10 mg at 08/31/25 0909 scopolamine (Transderm-Scop) patch 1 patch, 1 patch, Transdermal, q72h, Jadon Rangel MD, 1 patch at 08/30/25 1429 sodium bicarbonate 150 mEq in dextrose 5 % 1,000 mL infusion, 125 mL/hr, Intravenous, Continuous, Sheyla Malagon MD [7] apixaban, 5 mg, Oral, BID fidaxomicin, 200 mg, Oral, BID lidocaine, 5 mL, Swish & Swallow, Before meals & nightly magic mouthwash diphen/lido/dbrz-weo-iqqnev, 15 mL, Swish & Spit, Before meals & nightly mupirocin, 1 Application, Each Nostril, BID nystatin, 5 mL, Swish & Swallow, 4x daily pantoprazole, 40 mg, Oral, Daily before breakfast rosuvastatin, 10 mg, Oral, Daily scopolamine, 1 patch, Transdermal, q72h [8] sodium bicarbonate 150 mEq in dextrose 5 % 1,000 mL infusion, 125 mL/hr Cosigned by Emmanuel López MD at 2025 7:28 PM EDT Associated attestation - Emmanuel López MD - 2025 7:28 PM EDT I saw and evaluated the patient with the resident/fellow. I discussed the case with the resident/fellow and agree with the findings and plan as documented. 70 yo man with hx of GE junction adenocarcinoma admitted with C diff colitis c/b ISRRAEL and severe metabolic acidosis. Suspect secondary to prerenal injury in setting of volume losses. Will follow repeat urine studies. Would continue gentle IVF resuscitation and correct electrolyte derangements. Favor PO bicarbonate replacement for acidosis. * Progress Notes - Jose Wong - 2025 11:47 AM EDT OCCUPATIONAL THERAPY EVALUATION PATIENT DATA Patient Name Justin Best Session Date 2025 Total Time 30 min OT Discharge Recommendations Acute rehab Equipment Recommendations Defer to facility HISTORY Justin Best is 70 y.o. male admitted 08/26/2025 for work-up of Sepsis ([facility] Hospital Course 1. Neutropenic fever (CMS/HCC) 2. C. difficile colitis Procedures (if applicable) Past Medical History Patient has a past medical history of Blood urine (2023), Esophageal cancer (june 2025), Hypertension (1999), Kidney stone, Skin cancer (2004), and Stomach cancer (CMS/HCC) (june 2025). Past Surgical History Patient has a past surgical history that includes Back surgery (2001); Gallbladder surgery (1998); Appendectomy (2020); Cholecystectomy (1984); and Colonoscopy (2023). PRECAUTIONS Mobility Guidelines There are no questions and answers to display. Medical Precautions Medical Precautions: Fall precautions SUBJECTIVE PARTICIPANTS IN CARE Subjective Pt reports feeling very fatigued this date but agreeable to participate in OT session Visitors Present Spouse Time Study Observer (if applicable) PRESENTATION Oxygen Room Air Telemetry No Lines and Tubes Urethral Catheter Coude 16 Fr. (Active) Single Lumen Implantable Port 07/29/25 Right Chest (Active) Peripheral IV Left Antecubital (Active) Pre-Session Supine, Head of bed elevated, Lines intact RN agreeable to OT session. Spouse and unspecified family member present at start session. Post-Session Sitting in chair, Lines intact, RN notified, Call light in reach, Chair alarm All needs met upon close of session. Spouse present at close of session. Bracing (if applicable) HOME LIVING/SET-UP Lives With Spouse Home Type House Home Equipment shower chair, Rolling walker, Bedside commode Home Layout Two level, Able to live on one level with bedroom/bathroom (Ramp to enter) Bathroom Layout Tub/Shower combo, Grab bars, Shower chair Bathroom: Toilet: Standard Additional Comments PRIOR LEVEL OF FUNCTION Receives help from No assist required prior to admission Level of Mobility Ambulatory- community Mobility Hardy Independent gait without device History of Falls No ADL Performance ADL Performance: Independent PATIENT/FAMILY GOALS Pt agreeable to OT eval OBJECTIVE PAIN No c/o pain DELIRIUM SCREENING RASS: Alert and calm Confusion Assessment Method-ICU (CAM-ICU/PCAM-ICU) Feature 3: Altered Level of Consciousness: Negative COGNITION Overall Cognitive Status Within Functional Limits Arousal/Alertness Appropriate responses to stimuli Mood/Behavior Alert Orientation Oriented X4 Command Following Single Step Commands: Consistently Multi-Step Commands: Consistently Method of Communication Verbal Additional Observations VISION Baseline Vision Current Vision (if different) RIGHT UPPER EXTREMITY EXAMINATION Range of Motion Within Functional Limits Manual Muscle Testing Within functional limits Light Touch Sensation Intact LEFT UPPER EXTREMITY EXAMINATION Range of Motion Within Functional Limits Manual Muscle Testing Within functional limits Light Touch Sensation Intact RIGHT LOWER EXTREMITY EXAMINATION Range of Motion Within Functional Limits Manual Muscle Testing Within functional limits Light Touch Sensation Intact LEFT LOWER EXTREMITY EXAMINATION Range of Motion Within Functional Limits Manual Muscle Testing Within functional limits Light Touch Sensation Intact INTERVENTIONS Bed Mobility Bed Mobility Exam: Supine to Sit Level of Hardy: Minimum assist (75% patient's effort) Physical/Nonphysical Assist: Verbal Cues Assistive Device: Bed rails Transfers Transfer Exam: Sit to stand Level of Hardy: Minimum assist (75% patient's effort) Physical/Nonphysical Assist: Verbal Cues Assistive Device: Hand held assist Transfer Exam: Stand to Sit Level of Hardy: Minimum assist (75% patient's effort) Physical/Nonphysical Assist: Verbal Cues Assistive Device: Hand held assist Toilet Transfer Level of Hardy: Minimum assist (75% patient's effort) Physical/Nonphysical Assist: Verbal Cues Type of Transfer: Stand-pivot, To bedside commode Assistive Device: Hand held assist Balance Static Sitting Balance Static Sitting-Level of Assistance: Standby assist Dynamic Sitting Balance Level of Assistance: Contact guard Static Standing Balance Static Standing-Level of Assistance: Contact guard Dynamic Standing Balance Dynamic Standing Level of Assistance: Minimum assistance Self-Care Interventions (15 minutes) Lower Extremity Dressing Shoe Level of Assistance: Minimum assistance LE Dressing Where Assessed: Edge of bed LE Dressing Interventions: Pt with difficulty inserting heels into shoes due, required assist. Toileting Toileting Level of Assistance: Dependent Where Assessed: Bedside commode Toileting Interventions: Min A to stand from EOB with handheld assist, Min A to transfer to [facility]. Increased time for BM. Pt stood from [facility] with Min A, dependent dheeraj care in standing before requiring seated rest at EOB. Following rest break, Min A to stand and transfer to bedside recliner. Pt endorses feeling mildly lightheaded after transfers but endorsed improvement quickly after sitting in recliner. Educated pt regarding OT POC, increasing activity and transfers with nursing staff, and discharge recommendations. STANDARDIZED ASSESSMENTS [facility] 6-Click Daily Activities Help from Other: Don/Doff Regular Lower Body Clothings: A lot Help From Other: Bathing: A lot Help From Other: Toileting: A lot Help From Other: Don/Doff Upper Body Clothings: Little Help From Other: Grooming: Little Help From Other: Eating Meals: None [facility] 6 Click - Daily Activities Score: 16 ASSESSMENT OT FINDINGS Pt presents with sepsis and subsequent deconditioning. Pt reports large decline compared to baseline as he is normally very active and still plays pickleball amongst other hobbies, compared to currently requiring assist for transfers and ADLs. Pt very motivated to return to independent baseline andresume active lifestyle. Pt to benefit from OT POC during current admission as well as inpatient rehab at discharge to progress toward baseline while benefiting from medical oversight due to overall medical acuity. Impaired ADL performance, Impaired IADL performance, Decreased endurance/ventilation/gas exchange, Impaired functional mobility, Impaired balance Evaluation/ Treatment Tolerance (if identified) Patient limited by fatigue Rehab Potential (if identified) Good, to achieve stated therapy goals Barriers to Discharge (if identified) EVAL COMPLEXITY Occupational Profile Review of medical/therapy records and extensive additional review of physical,cognitive, or psychosocial history Performance Deficits Activities of daily living (ADLs), Instrumental activities of daily living (IADLs), Leisure, Body functions, Habits, Routines, Roles, Personal, Physical Clinical Decision Making High Overall Eval Complexity Complex OT RECOMMENDATIONS Discharge Destination Acute rehab Discharge Equipment Defer to facility Recommendations for Referral to Another Service (if applicable) PLAN Planned OT Interventions ADL retraining, IADL retraining, Balance training, Bed mobility Training, Strengthening, Transfer training, Functional mobility OT Frequency 2 - 5 times per week OT Duration 2 weeks OT GOALS OT GOAL DETAILS Time Frame OT Goal 1: Pt will complete sit <> stand and toilet transfers with Mod(I) using AE PRN 2 weeks OT Goal 2: Pt will complete total body dressing independently 2 weeks OT Goal 3: Pt will complete grooming tasks independently while standing at sink level 2 weeks OT Goal 4: Pt will tolerate > 5 min standing functional task without requiring rest break or demonstrating LOB, as prep for engaging in standing ADL/IADL tasks 2 weeks Written by Jose Wong on 08/31/25 at 3:08 PM. * Consults - Oksana Kapoor RD - 2025 9:34 AM EDT Adult Nutrition Evaluation Note Justin Best 70 y.o. male CSN: [id number] Room/Bed 134/134A Nutrition evaluation type: assessment Reason for evaluation: provider consult Hospital course: 69yo male with adenocarcinoma of GE junction on chemo who was admitted to [facility] on 08/26 for profound diarrhea and poor PO intake. C.diff positive. Nephrology consulted on 08/31 for ISRRAEL on CKD. Past medical/ surgical history: Past Medical History[1] Surgical History[2] Additional comments: Met with pt and family this afternoon. Pt reported dry mouth for 1 wk, (main reason for limited PO intake). Pt denied difficulty swallowing and pain while swallowing. Pt reportedtolerating PO intake when able to eat without nausea and vomiting. Pt reported UBW ~200#. Pt agreeable to strawberry boost, grape popsicle, flores smoothie. Vitals and Basic Assessment: BP: 95/62 Temp: 36.3 ??C (97.3 ??F) Oxygen Therapy: None (Room air) [place] Coma Scale Score: 15 John Scale Score: 18 Most Recent BM Date: 08/31/25 GI Symptoms: Nausea Allergies: NKFA Medications: Protonix daily, Crestor daily, sodium bicarbonate BID, lactated Ringer's infusion (100ml/hr), magic mouthwash, scopolamine patch, PRN zofran, PRN compazine Labs: Labs in last 18 hours CBC WBC 23.23 (H) Hb 8.7 (L) Plt 358 Hct 25.9 (L) ANC 20.44 (H) INR ??, PTT ??, Anti-Xa ?? BMP Na 126 (L) Cl 101 BUN 54 (H) Glu 101 (H) K 3.3 (L) Co2 15 (L) Cr 4.39 (H) Ca 7.7 (L) iCa ?? Mg 2.0, Phos 3.8 Lactate ?? LFT AST 26 AlkPhos 71 T Prot 4.5 (L) ALK 22 Bili 0.3 Alb ?? D.Bili ?? Anthropometrics: Height: 182.9 cm (6') Weight: (unable to get weight due to bed occupational health and safety adviser and inability to get up due to weakness) BMI (Calculated): 25.98 Weight Evaluation: Overweight (BMI 25-29.9) Weight History: UBW ~200# [place] Body Weight (kg): 80.9 Percent [place] Body Weight: 107 Wt Readings from Last 10 Encounters: 08/26/25 86.9 kg (191 lb 9.3 oz) 08/20/25 86.6 kg (190 lb 14.7 oz) 08/18/25 89.4 kg (197 lb 1.5 oz) 08/18/25 89.3 kg (196 lb 13.9 oz) 08/15/25 88.8 kg (195 lb 12.3 oz) 08/05/25 93.7 kg (206 lb 9.1 oz) 08/03/25 96.9 kg (213 lb 10 oz) 07/29/25 92 kg (202 lb 13.2 oz) 07/29/25 91.6 kg (202 lb) 07/27/25 92.3 kg (203 lb 7.8 oz) Estimated Needs: Kcal/ K-30 Kcal Provided: 1514-0142 Kcal Needs Based On: Admit weight Gm Protein/ Kg : 1.0-1.2 (ISRRAEL on CKD) Protein Provided: 104 Protein Needs Based On: Admit weight Current Nutrition Intake: Diet Order: Adult Diet Diet Texture: Regular Modified Calorie/ Protein: High calorie, high protein Adult GI: GI soft Percent Meals Eaten (%): 25% Diet Experience and Nutrition History: Diet Education Provided: Will monitor Pertinent home medications: PRN: zofran, compazine Nutrition Focused Physical Exam: Unable to Complete Exam: Patient unable to participate (Pt falling asleep at visit, did not attemptphysical exam but noted wasting in temples) Physical exam performed on (date): 08/31/25 Energy Intake: < 75% x 1 month Weight Loss: 5% weight loss x 1 month Assessment of Malnutrition: Malnutrition Identified: Yes Meets Criteria For: Severe malnutrition In Context Of: Chronic illness/ injury Based On: Severely reduced energy intake, Severe weight loss Present on Admission: Yes Nutrition Problem: Inadequate energy intake related to dry mouth as evidenced by 25% intakes, 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 Status of Nutrition Diagnosis: New Nutrition Interventions and Recommendations: - Liberalize diet to regular - [place] Boost [facility] TID Nutrition Monitoring and Goals: - Consume > 75% of meals - Prevent weight loss Acuity Level: 3 Jasvir Silva [1] Past Medical History: Diagnosis Date Blood urine 2023 Esophageal cancer june 2025 Hypertension 1999 Kidney stone Skin cancer 2004 Stomach cancer (CMS/HCC) june 2025 [2] Past Surgical History: Procedure Laterality Date APPENDECTOMY 2020 BACK SURGERY 2001 CHOLECYSTECTOMY 1984 COLONOSCOPY 2023 GALLBLADDER SURGERY 1998 * Progress Notes - Sheyla Malagon MD - 2025 8:35 AM EDT Subjective Very low uop overnight. Bernstein placed with improvement in abdominal discomfort. Diarrhea MUCH improved and only one loose stool overnight. Pain now controlled. Drinking well but hasn't eaten any food. Review of Systems Current Scheduled Medications[1] Current Continuous Medications[2] Current PRN Medications[3] Objective Vitals Temp: [36.2 ??C (97.2 ??F)-36.8 ??C (98.3 ??F)] 36.2 ??C (97.2 ??F) Heart Rate: [79-90] 84 Resp: [16-18] 18 BP: (102-124)/(67-81) 118/67 Physical Exam Constitutional: Appearance: Normal appearance. HENT: Mouth/Throat: Pharynx: Oropharynx is clear. Eyes: Conjunctiva/sclera: Conjunctivae normal. Abdominal: General: Abdomen is flat. There is no distension. Palpations: Abdomen is soft. Tenderness: There is no abdominal tenderness. Musculoskeletal: Right lower leg: No edema. Left lower leg: No edema. Skin: General: Skin is warm and dry. Coloration: Skin is pale. Neurological: Mental Status: He is alert and oriented to person, place, and time. Labs in last 18 hours CBC WBC 23.23 (H) Hb 8.7 (L) Plt 358 Hct 25.9 (L) ANC 20.44 (H) INR ??, PTT ??, Anti-Xa ?? BMP Na 126 (L) Cl 101 BUN 54 (H) Glu 101 (H) K 3.3 (L) Co2 15 (L) Cr 4.39 (H) Ca 7.7 (L) iCa ?? Mg 2.0, Phos 3.8 Lactate ?? LFT AST 26 AlkPhos 71 T Prot 4.5 (L) ALK 22 Bili 0.3 Alb ?? D.Bili ?? Assessment & Plan Sepsis ([facility]) Justin Best is a 69-year-old male with a known medical history of Poorly differentiated GEjunction adenocarcinoma, hypertension, and hyperlipidemia, Recently diagnosed AF (On Eliquis), presenting with fever, worsening epigastric pain, and poor oral intake following recent chemotherapy. 1.Clostridium difficile infection/ diarrhea in the setting of neutropenia: Patient is admitted to hospital medicine for Fever in Immunocompromised state and neutropenia. Infectious workup ordered. Patient received one of cefepime in ED. CXR WNL. C. Diff toxin and DNA positive. Contiinue with Dificid fidaxomicin 200 mg PO BID for 29 doses. Other cultures unrevealing so far. Last chemo was a week ago prior to coming into the hospital. Neutropenia has thankfully resolved. CRP elevated trend procalcitonin CRP and ESR- improving. 2.Acute kidney injury on CKD3a with metabolic acidosis Adjust medications, dw pharmacist Us without hydronephrosis. Recent contrast noted so this may be preciptating cause . Ua pending to eval for rodrigo Bernstein today.oliguric. called nephrology this am. He follows with Dr. Eros Mejia here as an outpt Changing ivf to bicarb gtts 3.Adenocarcinoma of GE junction & Worsening Cancer Related Pain & Inability to tolerate PO:Patient follows up with [facility] team. Patient is unable to tolerate PO diet (even liquids). Also his epigastric pain is worsening and uncontrolled. Epigastric tenderness +. 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 Oxycodone 5 mg x Q6 PRN. IVF while he is unable to tolerate PO. 4.Hypokalemia Monitored daily and replete 5.Atrial Fibrillation: Continue Eliquis Telemetry 6.hyponatremia- likely related to free water intake and solute deficiency as pt isn't eating much, but continues to drink. Changing ivf to something that is slightly hypertonic and encouraging po. Check cortisol and tsh also FENGI: In full liquid diet, lactated Ringer's at 100 cc an hour DVT prophylaxis: Eliquis apixaban 5 mg by mouth he had GI prophylaxis: Protonix 40 mg by mouth daily before breakfast Code status: Full code Disposition: Continue admission to Medicine at this time not yet medically optimized for discharge Medically Ready for Discharge: [1] apixaban, 5 mg, Oral, BID fidaxomicin, 200 mg, Oral, BID lidocaine, 5 mL, Swish & Swallow, Before meals & nightly magic mouthwash diphen/lido/xbxo-tvu-lbbdgi, 15 mL, Swish & Spit, Before meals & nightly mupirocin, 1 Application, Each Nostril, BID nystatin, 5 mL, Swish & Swallow, 4x daily pantoprazole, 40 mg, Oral, Daily before breakfast rosuvastatin, 10 mg, Oral, Daily scopolamine, 1 patch, Transdermal, q72h [2] lactated Ringer's, 100 mL/hr, Last Rate: 100 mL/hr (08/31/25 4509) lactated Ringer's, 125 mL/hr [3] PRN medications: HYDROcodone-acetaminophen, lidocaine, melatonin, ondansetron ODT OR ondansetron OR ondansetron, prochlorperazine OR prochlorperazine OR prochlorperazine OR prochlorperazine, prochlorperazine * Care Plan - Oksana Santos RN - 2025 2:09 AM EDT Problem: Adult Inpatient Plan of Care Goal: Plan of Care Review Outcome: Ongoing, Progressing Flowsheets (Taken 08/31/2025204) Progress: no change Plan of Care Reviewed With: patient family Goal: Patient-Specific Goal (Individualized) Outcome: Ongoing, Progressing Flowsheets (Taken 08/30/20251999) Patient/Family-Specific Goals (Include Timeframe): patient will remain free from injury throughout the shift Individualized Care Needs: ongoing support Anxieties, Fears or Concerns: C. diff Goal: Absence of Hospital-Acquired Illness or Injury Outcome: Ongoing, Progressing Intervention: Identify and Manage Fall Risk Flowsheets (Taken 08/31/2025204) Safety Promotion/Fall Prevention: activity supervised lighting adjusted safety round/check completed mobility aid in reach assistive device/personal items within reach nonskid shoes/slippers when out of bed room organization consistent clutter-free environment maintained fall prevention program maintained Intervention: Prevent Skin Injury Flowsheets (Taken 08/31/2025204) Body Position: weight shifting Skin Protection: protective footwear used transparent dressing maintained incontinence pads utilized Intervention: Prevent and Manage VTE (Venous Thromboembolism) Risk Flowsheets (Taken 08/31/2025204) VTE Prevention/Management: bilateral SCDs (sequential compression devices) off Intervention: Prevent Infection Flowsheets (Taken 08/31/2025204) Infection Prevention: cohorting utilized personal protective equipment utilized rest/sleep promoted environmental surveillance performed equipment surfaces disinfected single patient room provided hand hygiene promoted Goal: Optimal Comfort and Wellbeing Outcome: Ongoing, Progressing Intervention: Monitor Pain and Promote Comfort Flowsheets (Taken 08/31/2025204) Pain Management Interventions: rest pillow support provided relaxation techniques promoted position adjusted emotional support care clustered Intervention: Provide Person-Centered Care Flowsheets (Taken 08/31/2025204) Trust Relationship/Rapport: care explained questions encouraged choices provided reassurance provided emotional support provided thoughts/feelings acknowledged empathic listening provided questions answered Problem: Pain Acute Goal: Optimal Pain Control and Function Outcome: Ongoing, Progressing Intervention: Optimize Psychosocial Wellbeing Flowsheets (Taken 08/31/2025204) Supportive Measures: active listening utilized relaxation techniques promoted positive reinforcement provided Diversional Activities: television smartphone Spiritual Activities Assistance: affirmation provided Intervention: Develop Pain Management Plan Flowsheets (Taken 08/31/2025204) Pain Management Interventions: rest pillow support provided relaxation techniques promoted position adjusted emotional support care clustered Intervention: Prevent or Manage Pain Flowsheets (Taken 08/31/2025204) Sensory Stimulation Regulation: quiet environment promoted care clustered Bowel Elimination Promotion: adequate fluid intake promoted Sleep/Rest Enhancement: awakenings minimized relaxation techniques promoted noise level reduced room darkened consistent schedule promoted regular sleep/rest pattern promoted Medication Review/Management: medications reviewed Problem: Nausea and Vomiting Goal: Nausea and Vomiting Relief Outcome: Ongoing, Progressing Intervention: Prevent and Manage Nausea and Vomiting Flowsheets (Taken 08/31/2025204) Fluid/Electrolyte Management: fluids provided Nausea/Vomiting Interventions: nausea triggers minimized Environmental Support: calm environment promoted environmental consistency promoted caregiver consistency promoted rest periods encouraged personal routine supported Problem: Electrolyte Imbalance Goal: Electrolyte Balance Outcome: Ongoing, Progressing Flowsheets (Taken 08/31/2025204) Electrolyte Imbalance: Plan of Care: electrolyte balance Intervention: Monitor and Manage Electrolyte Imbalance Flowsheets (Taken 08/31/2025204) Fluid/Electrolyte Management: fluids provided Problem: Infection Goal: Absence of Infection Signs and Symptoms Outcome: Ongoing, Progressing Intervention: Prevent or Manage Infection Flowsheets (Taken 08/31/2025204) Infection Management: aseptic technique maintained Fever Reduction/Comfort Measures: fluid intake increased lightweight bedding lightweight clothing Isolation Precautions: contact neutropenic Problem: Skin Injury Risk Increased Goal: Skin Health and Integrity Outcome: Ongoing, Progressing Intervention: Optimize Skin Protection Flowsheets (Taken 08/31/2025204) Activity Management: activity adjusted per tolerance Pressure Reduction Techniques: frequent weight shift encouraged Pressure Reduction Devices: positioning supports utilized Skin Protection: protective footwear used transparent dressing maintained incontinence pads utilized Head of Bed (HOB) Positioning: HOB elevated Intervention: Promote and Optimize Oral Intake Flowsheets (Taken 08/31/2025204) Oral Nutrition Promotion: physical activity promoted rest periods promoted social interaction promoted Nutrition Interventions: food preferences provided Problem: Fall Injury Risk Goal: Absence of Fall and Fall-Related Injury Outcome: Ongoing, Progressing Intervention: Identify and Manage Contributors Flowsheets (Taken 2025 0205) Medication Review/Management: medications reviewed Self-Care Promotion: independence encouraged BADL personal objects within reach BADL personal routines maintained Intervention: Promote Injury-Free Environment Flowsheets (Taken 2025 0205) Safety Promotion/Fall Prevention: activity supervised lighting adjusted safety round/check completed mobility aid in reach assistive device/personal items within reach nonskid shoes/slippers when out of bed room organization consistent clutter-free environment maintained fall prevention program maintained * Care Plan - Marcia Adams RN - 08/30/2025 2:50 PM EDT Problem: Adult Inpatient Plan of Care Goal: Plan of Care Review Outcome: Ongoing, Progressing Goal: Patient-Specific Goal (Individualized) Outcome: Ongoing, Progressing Flowsheets (Taken 08/30/2025 1108) Patient/Family-Specific Goals (Include Timeframe): patient will tolerate sitting in chair for atleast 2 hours throughout the duration of the shift. Individualized Care Needs: promotion of ambulation with assist Anxieties, Fears or Concerns: wanting to ambulate Goal: Absence of Hospital-Acquired Illness or Injury Outcome: Ongoing, Progressing Intervention: Identify and Manage Fall Risk Flowsheets (Taken 08/30/2025 1447) Safety Promotion/Fall Prevention: activity supervised assistive device/personal items within reach fall prevention program maintained clutter-free environment maintained lighting adjusted mobility aid in reach nonskid shoes/slippers when out of bed Intervention: Prevent and Manage VTE (Venous Thromboembolism) Risk Flowsheets (Taken 08/30/2025 1447) VTE Prevention/Management: bilateral Intervention: Prevent Infection Flowsheets (Taken 08/30/2025 1447) Infection Prevention: cohorting utilized environmental surveillance performed equipment surfaces disinfected hand hygiene promoted personal protective equipment utilized Goal: Optimal Comfort and Wellbeing Outcome: Ongoing, Progressing Intervention: Provide Person-Centered Care Flowsheets (Taken 08/30/2025 1447) Trust Relationship/Rapport: care explained choices provided emotional support provided questions encouraged Problem: Pain Acute Goal: Optimal Pain Control and Function Outcome: Ongoing, Progressing Problem: Nausea and Vomiting Goal: Nausea and Vomiting Relief Outcome: Ongoing, Progressing Problem: Electrolyte Imbalance Goal: Electrolyte Balance Outcome: Ongoing, Progressing Problem: Infection Goal: Absence of Infection Signs and Symptoms Outcome: Ongoing, Progressing Intervention: Prevent or Manage Infection Flowsheets (Taken 08/30/2025 9024) Infection Management: aseptic technique maintained Problem: Skin Injury Risk Increased Goal: Skin Health and Integrity Outcome: Ongoing, Progressing Problem: Fall Injury Risk Goal: Absence of Fall and Fall-Related Injury Outcome: Ongoing, Progressing * Progress Notes - Rebeca Villalba, PT - 08/30/2025 11:18 AM EDT PHYSICAL THERAPY EVALUATION Patient Name Justin Best Session Date 08/30/2025 Total Treatment Time 38 min PT Discharge Recommendations Pending progress Equipment Recommendations HISTORY Justin Best is 69 y.o. male admitted 08/26/2025 for work-up of Sepsis ([facility]). Hospital Course 1. C. difficile colitis Procedures (if applicable) Past Medical History Patient has a past medical history of Blood urine (2023), Esophageal cancer (june 2025), Hypertension (1999), Kidney stone, Skin cancer (2004), and Stomach cancer ([facility]) (june 2025). Past Surgical History Patient has a past surgical history that includes Back surgery (2001); Gallbladder surgery (1998); Appendectomy (2020); Cholecystectomy (1984); and Colonoscopy (2023). PRECAUTIONS Weight Bearing Precautions (if applicable) ROM Restrictions (if applicable) Medical Precautions Yes Medical Precautions: Fall precautions SUBJECTIVE PARTICIPANTS IN CARE Visitors Present Yes Spouse Subjective Report Pt has NOT been: * Ambulating hallway distances * Ambulating in-room distances * Transferring Bed <> Chair since being admitted to the hospital. Pt remains unaware when pt may be discharged from [facility]. Time Study Observer (if applicable) Not Applicable HOME LIVING/SET-UP Lives With Spouse Home Type House Home Equipment shower chair, Rolling walker, Bedside commode Home Layout Two level, Able to live on one level with bedroom/bathroom (Ramp to enter) Bathroom Layout Bathroom: Tub/Shower: Tub/Shower combo, Grab bars, Shower chair Bathroom: Toilet: Standard Additional Comments PRIOR LEVEL OF FUNCTION Assist at Home No assist required prior to admission Level of Mobility Ambulatory- community Mobility Hardy Independent gait without device History of Falls No Overall ADL Performance Independent Additional ADL Performance Detail PATIENT/FAMILY GOALS Patient/Family Goals Statement: To return home OBJECTIVE / INTERVENTIONS PRESENTATION Oxygen Oxygen Therapy: None (Room air) Lines and Tubes Male External Urinary Catheter (Active) Single Lumen Implantable Port 07/29/25 Right Chest (Active) Peripheral IV Left Antecubital (Active) Pre-Session Supine, Head of bed elevated, Lines intact RN approved of session Post-Session Sitting in chair, Lines intact, RN notified, Call light in reach All needs met Bracing (if applicable) PAIN Pain Intensity / Location Pre-Mobility: no c/o pain at rest Pain Intensity / Location Post-Mobility: pt c/o pain while urinating, described it at burning. Did not rate pain. Prior to PT's departure: * rest was provided * pt was positioned for comfort * pillow support was provided * RN was informed of pt's pain DELIRIUM SCREENING RASS: Alert and calm Confusion Assessment Method-ICU (CAM-ICU/PCAM-ICU) Feature 3: Altered Level of Consciousness: Negative COGNITION Overall Cognitive Status Within Functional Limits Arousal/Alertness Appropriate responses to stimuli Mood/Behavior Alert Orientation Oriented x4 Command Following Single Step Commands: Consistently Multi-Step Commands: Consistently Method of Communication Verbal Additional Observations MOTOR EXAMINATION RANGE OF MOTION Right Upper Within Functional Limits Left Upper Within Functional Limits Right Lower Within Functional Limits Left Lower Within Functional Limits MANUAL MUSCLE TESTING Right Upper Within functional limits Left Upper Within functional limits Right Lower Within functional limits Left Lower Within functional limits SENSORY EXAMINATION Light Touch Sensation Right Upper Intact Left Upper Intact Right Lower Intact Left Lower Intact THERAPEUTIC ACTIVITY Treatment Minutes 23 BED MOBILITY Level of Hardy Physical/Non- physical Assist Adaptive Equipment Utilized Rolling/ Turning Scooting/ Bridging Contact guard Verbal Cues, Minimal cues Bed rails Supine to Sit Contact guard Verbal Cues, Minimal cues Bed rails Sit to Supine Interventions Pt was given verbal cues for hand placement, sequencing, safety awareness, weight shifting, log rolling, and energy conservation to improve bed mobility. Pt was educated to log roll to their right. to transition into sitting. TRANSFERS Level of Hardy Physical/Non- physical Assist Adaptive Equipment Utilized Sit to Stand Minimum assist (75% patient's effort) Verbal Cues, Minimal cues, Nonverbal cues (demo/gestures), Additional assist utilized for safety Hand held assist Stand to sit Minimum assist (75% patient's effort) Verbal Cues, Nonverbal cues (demo/gestures), Additional assist utilized for safety, Minimal cues Hand held assist Bed to Chair Toilet Transfer Shower Transfer Interventions Pt completed multiple STS. Hand-held assist was used instead of a device to allow PT to facilitate skilled interventions due to safety concerns and impaired balance. Pt was given verbal/tactile cues for hand placement, trunk control, sequencing, weight shifting, upright posture, and safety awareness. Pt was educated to sit in the chair for at least one hour to help improve upright tolerance, to strengthen abdominal muscles, for optimal lung function, and to prevent skin breakdown.Pt was positioned with pillows under bilateral arms to prevent skin breakdown on elbows and pillowswere placed under legs to float heels to prevent skin breakdown. BALANCE Postural Appearance Posture: Rounded shoulders, Forward head Level of Hardy Balance Support Interventions Static Sit Standby assist Right upper extremity support, Left upper extremity support, Feet supported Pt sat unsupported at the EOB for ~10 minutes. Dynamic Sit Contact guard Right upper extremity support, Left upper extremity support, Feet supported Dynamic Sitting-Balance: Anterior/Posterior weight shifts, Lateral weight shifts Pt scooted anteriorly to the EOB. Pt was given verbal cues to weight shift from right <> leftto improve scooting. Pt was given verbal cues for hand placement. Pt maintained balance while MMT was performed. Pt was given verbal cues to maintain sitting upright and to not lean posteriorly. Pt scooted posteriorly into the chair. Pt was given verbal cues to weight shift from right <> leftto improve scooting. Static Stand Contact guard Right upper extremity support, Left upper extremity support (INSURANCE EXAMINING CLERK) Patient demonstrated forward head and rounded shoulders in standing. PT provided tactile cues at scapulae and thoracic spine to facilitate improved postural alignment. Verbal cues also given to reinforce awareness. Dynamic Stand Minimum assistance Right upper extremity support, Left upper extremity support (INSURANCE EXAMINING CLERK) Pt was given verbal cues to weight shift from their RLE <> LLE to improve weight acceptance before mobilizing. Pt attempted to complete ADLs while standing at the sink. A chair was placed behind them for seatedrest breaks. Pt was unable to stand for more than ~30 seconds before needing to sit down due to feeling light headed. Pt reported seeing spots. Pt was returned to sitting and reported feeling better.RN and team notified. AMBULATION Level of Hardy Distance Adaptive Equipment Utilized Ambulation Minimum assistance Pt ambulated 10' on even ground. Hand held assist Apparatus: None Comments Pt demonstrated decreased kelley, decreased arm swing, decreased step/stride length, and decreased endurance when ambulating. Pt was given verbal cues for safety awareness and upright posture. Educated on self pacing/rest breaks for energy conservation. PT presence was necessary for: * managing lines * progressing patient ambulation distances * decreasing patient's risk of falling while progressing pt's distances STANDARDIZED ASSESSMENTS [facility] 6-Clicks Mobility Assessment Difficulty patient has turning over in bed (including adjusting bedclothes, sheets, and blankets)?:None Difficulty patient has sitting down on and standing up from a chair with arms (wheelchair, bedside commode, etc.)?: A little Difficulty patient has moving from lying on back to sitting on the side of the bed?: A little How much help does the patient need moving to and from a bed to a chair (including a wheelchair)?: A little How much help does the patient need to walk in hospital room?: Unable How much help does the patient need climbing 3-5 steps with a railing?: Unable [facility] 6-Clicks Mobility Assessment Total : 15 ASSESSMENT PT FINDINGS Impairments (if identified) Decreased endurance, ventilation, and/or gas exchange, Impaired functional mobility/transfers, Impaired balance, Decreased strength, Pain, Impaired gait dynamics/performance Activity Limitations (if identified) Inability to ambulate household distances, Inability to transfer independently, Inability to complete ADLs independently, Inability to ambulate independently, Inability to ambulate community distances Participation Restrictions (if identified) Self-care, Home management, Community leisure Barriers to Discharge (if identified) Comorbidities PT Diagnosis Impaired Functional Mobility Additional Observations Activity Tolerance: Tolerates 30 min activity with multiple rests Evaluation/Treatment Tolerance: Patient limited by pain, Patient limited by fatigue Rehab Potential: Good, to achieve stated therapy goals EVAL COMPLEXITY History Profile 1 - 2 personal factors and/or comorbidities Clinical Presentation Evolving clinical presentation with changing characteristics Clinical Decision Making Moderate complexity PT RECOMMENDATIONS Discharge Destination Pending progress Discharge Equipment Additional Recommendations (if applicable) Patient engaged in task-specific training with improved movement efficiency and consistent cue responsiveness. Patient presents with impaired activity tolerance, impaired balance, impaired independence with ADLs, increased pain, and impaired endurance which translates to the patient being a high falls risk and unable to complete mobility independently. PT educated pt/family about PT POC. Pt will benefit from skilled inpatient PT to improve functional mobility. PT will update recommendations after further mobility. PLAN Planned PT Interventions Balance training, Lumbar stabilization, Strengthening, Bed mobility training, Manual therapy techniques, Stretching, Gait training, Postural re-education, Mozambican ball technique, Therapeutic play, Neuromuscular re-education, Motor coordination training, Transfer training, Functional Mobility, Caregiver training, ROM, Joint mobilization, Wheelchair management/propulsion training PT Frequency 2 - 5 times per week PT Duration 2 weeks PT GOALS PT GOAL DETAILS Time Frame PT Goal 1: Pt will improve AMPAC score equal or greater than 19 to demonstrate improved functional mobility. 2 weeks PT Goal 2: Pt will ambulate 100ft with CGA and LRAD to demonstrate improved household ambulation. 2 weeks PT Goal 3: Pt will perform supine <> sit with SBA and HOB flat. 2 weeks PT Goal 4: Pt will perform STS with SBA and least restrictive AD to decrease caregiver burden. 2 weeks PT Goal 5: Pt/family will be independent with HEP and discharge recommendations. 2 weeks Written by Rebeca Villalba PT on 08/30/25 at 12:45 PM. * Progress Notes - Sheyla Malagon MD - 08/30/2025 9:05 AM EDT Images from the original note were not included. Subjective Very poor po intake today. Drinking some. Diarrhea/mild nausea persist pain controlled Review of Systems Current Scheduled Medications[1] Current Continuous Medications[2] Current PRN Medications[3] Objective Vitals Temp: [36.2 ??C (97.1 ??F)-36.8 ??C (98.3 ??F)] 36.4 ??C (97.6 ??F) Heart Rate: [70-87] 71 Resp: [16-18] 16 BP: (107-141)/(66-86) 141/77 Physical Exam Constitutional: Appearance: Normal appearance. Eyes: Conjunctiva/sclera: Conjunctivae normal. Pulmonary: Effort: Pulmonary effort is normal. No respiratory distress. Abdominal: General: There is distension. Palpations: Abdomen is soft. Tenderness: There is abdominal tenderness. Skin: General: Skin is warm and dry. Neurological: Mental Status: He is alert and oriented to person, place, and time. Labs in last 18 hours CBC WBC 18.23 (H) Hb 9.3 (L) Plt 332 Hct 27.4 (L) ANC 15.50 (H) INR ??, PTT ??, Anti-Xa ?? BMP Na 128 (L) Cl 104 BUN 45 (H) Glu 128 (H) K 3.7 Co2 15 (L) Cr 3.66 (H) Ca 7.6 (L) iCa ?? Mg 2.2, Phos 3.1 Lactate ?? LFT AST 27 AlkPhos 66 T Prot 4.7 (L) ALK 20 Bili 0.3 Alb ?? D.Bili ?? Pro philip 10.7->4.17 CRP 185->68.5 ESR 46->40 Results Procedure Component Value Units Date/Time Blood Culture (Aerobic/Anaerobet Set) [[id number]] Collected: 08/26/25 1711 Order Status: Completed Specimen: Blood from Forearm, Right Updated: 08/29/25 1801 Culture No growth at day 3 Narrative: Low blood volume submitted, results may be compromised Clostridium difficile EIA [[id number]] (Abnormal) Collected: 08/26/252017 Order Status: Completed Specimen: Stool from Rectum Updated: 08/29/25 0710 C difficile EIA Interpretation C. difficile infection likely. Toxin Result Positive GDH Result Positive Narrative: This toxin/GDH assay was reflexed from a positive C. difficile PCR result. Clostridiodes (Clostridium) difficile PCR [[id number]] (Abnormal) Collected: 08/26/252017 Order Status: Completed Specimen: Stool from Rectum Updated: 08/27/25 1342 C difficile PCR toxin B gene DNA Result Detected, Reflex GDH/Toxin antigen test pending, see CDEIA for final result. Comment: Reflex GDH/Toxin antigen test pending, see CDEIA for final result. Narrative: This test is FDA approved for use with liquid stool specimens. This test is used for clinical purposes. It should not be regarded as investigational or for research. This laboratory is certified under the Clinical Laboratory Improvement Amendments of 1988 (CLIA-88) as qualified to perform high complexity clinical laboratory testing. Comprehensive GI Panel by PCR [[id number]] (Normal) Collected: 08/26/252017 Order Status: Completed Specimen: Stool from Rectum Updated: 08/27/25 1106 Campylobacter PCR Result Not Detected Plesiomonas shigelloides PCR Result Not Detected Salmonella PCR Result Not Detected Vibrio species PCR Result Not Detected Vibrio cholerae PCR Result Not Detected Yersinia enterocolitica PCR Result Not Detected Enteroaggregative E. coli (EAEC) PCR Result Not Detected Enteropathogenic E. coli (EPEC) PCR Result Not Detected Enterotoxigenic E. coli (ETEC) lt/st PCR Result Not Detected Shiga-like Toxin-Producing E.coli (STEC) stx1/stx2 PCR Resu Not Detected E coli 0157 PCR Result Not Detected Shigella/Enteroinvasive E. coli (EIEC) PCR Result Not Detected Cryptosporidium PCR Result Not Detected Cyclospora cayetanensis PCR Result Not Detected Entamoeba histolytica PCR Result Not Detected Giardia duodenalis (aka Giardia lamblia) PCR Result Not Detected Adenovirus F 40/41 PCR Result Not Detected Astrovirus PCR Result Not Detected Norovirus GI/GII PCR Result Not Detected Rotavirus A PCR Result Not Detected Sapovirus PCR Result Not Detected Narrative: This specimen was tested for the following [...] difficile by PCR assay if clinically indicated. Ova and Parasite Exam, Fecal [[id number]] Collected: 08/26/252017 Order Status: Sent Specimen: Stool from Rectum Updated: 08/26/252024 Assessment & Plan Sepsis (CMS/HCC) Justin Best is a 69-year-old male with a known medical history of Poorly differentiated GEjunction adenocarcinoma, hypertension, and hyperlipidemia, Recently diagnosed AF (On Eliquis), presenting with fever, worsening epigastric pain, and poor oral intake following recent chemotherapy. 1.Clostridium difficile infection/ diarrhea in the setting of neutropenia: Patient is admitted to hospital medicine for Fever in Immunocompromised state and neutropenia. Infectious workup ordered. Patient received one of cefepime in ED. CXR WNL. C. Diff toxin and DNA positive. Contiinue with Dificid fidaxomicin 200 mg PO BID for 29 doses. Other cultures unrevealing so far. Last chemo was a week ago prior to coming into the hospital. CRP elevated trend procalcitonin CRP and ESR- improving. 2.Acute kidney injury on CKD: Adjust medications, dw pharmacist Us now Recent contrast noted so this may be preciptating cause . Monitor - if worsens will call nephrology in am. He follows with Dr. Eros Mejia here as an outpt 3.Adenocarcinoma of GE junction & Worsening Cancer Related Pain & Inability to tolerate PO:Patient follows up with [facility]. Patient is unable to tolerate PO diet (even liquids). Also his epigastric pain is worsening and uncontrolled. Epigastric tenderness +. 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 Oxycodone 5 mg x Q6 PRN. IVF while he is unable to tolerate PO. 4.Hypomagnesemia Hypophosphatemia: Monitored daily and replete 5.Atrial Fibrillation: Continue Eliquis Telemetry FENGI: In full liquid diet, lactated Ringer's at 100 cc an hour DVT prophylaxis: Eliquis apixaban 5 mg by mouth he had GI prophylaxis: Protonix 40 mg by mouth daily before breakfast Code status: Full code Disposition: Continue admission to Medicine at this time not yet medically optimized for discharge Medically Ready for Discharge: [1] apixaban, 5 mg, Oral, BID fidaxomicin, 200 mg, Oral, BID lidocaine, 5 mL, Swish & Swallow, Before meals & nightly magic mouthwash diphen/lido/qgqi-nqp-dwewjm, 15 mL, Swish & Spit, Before meals & nightly mupirocin, 1 Application, Each Nostril, BID nystatin, 5 mL, Swish & Swallow, 4x daily pantoprazole, 40 mg, Oral, Daily before breakfast rosuvastatin, 10 mg, Oral, Daily scopolamine, 1 patch, Transdermal, q72h [2] lactated Ringer's, 100 mL/hr, Last Rate: 100 mL/hr (08/30/25 0725) [3] PRN medications: HYDROcodone-acetaminophen, melatonin, ondansetron ODT OR ondansetron OR ondansetron, prochlorperazine OR prochlorperazine OR prochlorperazine OR prochlorperazine, prochlorperazine * Care Plan - Oksana Santos RN - 08/30/2025 4:15 AM EDT Problem: Adult Inpatient Plan of Care Goal: Plan of Care Review Outcome: Ongoing, Progressing Flowsheets (Taken 08/30/2025411) Progress: improving Plan of Care Reviewed With: patient Goal: Patient-Specific Goal (Individualized) Outcome: Ongoing, Progressing Flowsheets (Taken 08/29/20251999) Patient/Family-Specific Goals (Include Timeframe): patient will remain free from injury throughout the shift Individualized Care Needs: ongoing support Anxieties, Fears or Concerns: C. diff Goal: Absence of Hospital-Acquired Illness or Injury Outcome: Ongoing, Progressing Intervention: Identify and Manage Fall Risk Flowsheets (Taken 08/30/2025411) Safety Promotion/Fall Prevention: activity supervised lighting adjusted safety round/check completed mobility aid in reach assistive device/personal items within reach nonskid shoes/slippers when out of bed room organization consistent clutter-free environment maintained fall prevention program maintained Intervention: Prevent Skin Injury Flowsheets (Taken 08/30/2025411) Body Position: weight shifting Skin Protection: transparent dressing maintained incontinence pads utilized Intervention: Prevent and Manage VTE (Venous Thromboembolism) Risk Flowsheets (Taken 08/30/2025411) VTE Prevention/Management: bilateral SCDs (sequential compression devices) off education provided Intervention: Prevent Infection Flowsheets (Taken 08/30/2025411) Infection Prevention: cohorting utilized personal protective equipment utilized rest/sleep promoted environmental surveillance performed equipment surfaces disinfected single patient room provided hand hygiene promoted Goal: Optimal Comfort and Wellbeing Outcome: Ongoing, Progressing Intervention: Monitor Pain and Promote Comfort Flowsheets (Taken 08/30/2025411) Pain Management Interventions: rest relaxation techniques promoted position adjusted pillow support provided care clustered emotional support pain management plan reviewed with patient/caregiver Intervention: Provide Person-Centered Care Flowsheets (Taken 08/30/2025411) Trust Relationship/Rapport: care explained questions encouraged choices provided reassurance provided emotional support provided thoughts/feelings acknowledged empathic listening provided questions answered Problem: Pain Acute Goal: Optimal Pain Control and Function Outcome: Ongoing, Progressing Intervention: Optimize Psychosocial Wellbeing Flowsheets (Taken 08/30/2025411) Supportive Measures: active listening utilized relaxation techniques promoted verbalization of feelings encouraged mindfulness techniques promoted Diversional Activities: television smartphone Spiritual Activities Assistance: affirmation provided hope instilled Intervention: Develop Pain Management Plan Flowsheets (Taken 08/30/2025411) Pain Management Interventions: rest relaxation techniques promoted position adjusted pillow support provided care clustered emotional support pain management plan reviewed with patient/caregiver Intervention: Prevent or Manage Pain Flowsheets (Taken 08/30/2025411) Sensory Stimulation Regulation: quiet environment promoted care clustered lighting decreased Bowel Elimination Promotion: adequate fluid intake promoted Sleep/Rest Enhancement: awakenings minimized relaxation techniques promoted room darkened noise level reduced consistent schedule promoted regular sleep/rest pattern promoted Medication Review/Management: medications reviewed Problem: Nausea and Vomiting Goal: Nausea and Vomiting Relief Outcome: Ongoing, Progressing Intervention: Prevent and Manage Nausea and Vomiting Flowsheets (Taken 08/30/2025411) Fluid/Electrolyte Management: fluids provided Environmental Support: calm environment promoted environmental consistency promoted personal routine supported rest periods encouraged Oral Care: patient refused intervention Problem: Electrolyte Imbalance Goal: Electrolyte Balance Outcome: Ongoing, Progressing Flowsheets (Taken 08/30/2025411) Electrolyte Imbalance: Plan of Care: electrolyte balance Intervention: Monitor and Manage Electrolyte Imbalance Flowsheets (Taken 08/30/2025411) Fluid/Electrolyte Management: fluids provided Problem: Infection Goal: Absence of Infection Signs and Symptoms Outcome: Ongoing, Progressing Intervention: Prevent or Manage Infection Flowsheets (Taken 08/30/2025411) Infection Management: aseptic technique maintained Fever Reduction/Comfort Measures: fluid intake increased lightweight bedding lightweight clothing Isolation Precautions: contact neutropenic precautions maintained Problem: Skin Injury Risk Increased Goal: Skin Health and Integrity Outcome: Ongoing, Progressing Intervention: Optimize Skin Protection Flowsheets (Taken 08/30/2025 041) Activity Management: activity adjusted per tolerance Pressure Reduction Techniques: frequent weight shift encouraged Pressure Reduction Devices: positioning supports utilized Skin Protection: transparent dressing maintained incontinence pads utilized Head of Bed (HOB) Positioning: HOB elevated Intervention: Promote and Optimize Oral Intake Flowsheets (Taken 08/30/2025 0412) Oral Nutrition Promotion: physical activity promoted rest periods promoted social interaction promoted Nutrition Interventions: diet adjusted food preferences provided Problem: Fall Injury Risk Goal: Absence of Fall and Fall-Related Injury Outcome: Ongoing, Progressing Intervention: Identify and Manage Contributors Flowsheets (Taken 08/30/2025 041) Medication Review/Management: medications reviewed Self-Care Promotion: independence encouraged BADL personal objects within reach Intervention: Promote Injury-Free Environment Flowsheets (Taken 08/30/2025 041) Safety Promotion/Fall Prevention: activity supervised lighting adjusted safety round/check completed mobility aid in reach assistive device/personal items within reach nonskid shoes/slippers when out of bed room organization consistent clutter-free environment maintained fall prevention program maintained * Progress Notes - Carmela Bar - 08/29/2025 12:37 PM EDT Case Management Adult Initial Progress Note Justin Best 69 y.o. male CSN: [id number] Admission: 08/26/2025 12:54 PM Primary Problem: Sepsis (CMS/HCC) Outer Diameter Grinder Tool reviewed chart and spoke with patient to complete this Initial Case Management Assessment. PCP: Darius Ken MD Emergency Contact: Extended Emergency Contact Information Primary Emergency Contact: Kristen Best Address: [address] [place] [address] of [place] Relation: Spouse Preferred language: Salvadorean Time Study Observer needed? No Secondary Emergency Contact: Ricardo Best Mobile Relation: Son Preferred language: Salvadorean Time Study Observer needed? No Insurance: Primary Visit Coverage Payer Plan Sponsor Code Group Number Group Name UHC MEDICARE UHC MEDICARE REPLACEMENT [id number] Primary Visit Coverage Subscriber Subscriber ID Subscriber Name Subscriber SSN Subscriber Address [id number] Justin Best P [id number] [place] [address] Patient information: Pt lives with his , Kristen Best (P: [phone]) at listed address in [place], [place]. Pt's wifeis supportive. Daily Living Activities: Independent. Current DME: Shower chair, BSC. Anticipated Discharge Date: Unknown. Patient's Discharge Goal: Return home with support from family. Assistance Available at Discharge: Family. Discharge Transport: Family. Follow Up Transport: Family. Home Health / Home Infusion / Outpatient Dialysis Services: None. Living Will/Advance Directive/Power of Curriculum Coordinator /Guardian: None. Additional Comments: SW/CM will continue to follow. Carmela Bar * Progress Notes - Taco Russell, RELEASE MANAGER - 08/29/2025 10:30 AM EDT Medical Oncology Consult Follow-Up Note 08/29/25 Patient Name: Justin Best Date of : 1955 69 y.o. Patient Care Team: Darius Ken MD as PCP - General (Internal Medicine) Subjective History of Present Illness Patient seen lying in bed with and family at bedside. He reports no current pain but has been experiencing nausea and vomiting (last emesis yesterday), which are being controlled with his current medication regimen. Concerns have been expressed regarding ongoing chemotherapy, with a desire to discontinue it. He has a scheduled appointment with the oncologist is set for 09/01. During the last outpatient follow up, it was mentioned that immunotherapy might be a suitable alternative, which is a hopeful prospect. A diagnosis of C. difficile has been made, contributing to increased bowel movements. Dificid has been started as part of the treatment plan. A notification from cardiology regarding an upcoming appointment has been received. Initially diagnosed with atrial fibrillation upon admission, the condition is suspected to have been triggered by chemotherapy. Encouraged to keep appointment and follow up with cardiology. Refer to HPI above for pertinent positives and negatives. The following components of the patient's history have been personally reviewed and updated where appropriate: past medical history, allergies, surgical history, social history, family history, immunizations, and medications. Pertinent findings or changes can be found in the HPI or A/P in this note. PMH, Surg History, Social History, Family History and current medications reviewed and unchanged from last encounter or updated as indicated. ROS: 14 point review of systems completed and negative unless stated above. Objective Visit Vitals BP 128/86 Pulse 84 Temp (!) 36.2 ??C (97.1 ??F) (Axillary) Resp 17 ECOG: General: Lying/resting comfortably in bed, Pale and ill appearing; NAD HEENT: NCAT, PERRLA/EOMI, anicteric; no oral lesions Neck: Supple, no JVD Heart: RRR, no MGR Lungs: CTAB; no rales, rhonchi or wheezes; O2 room air Abdomen: Soft, NTND, + BS Extremities: No edema Musculoskeletal: No focal tenderness or deformity Skin: Cardiac patch monitor on chest; No visible rashes or lesions Neuro: Grossly nonfocal; no localizing deficits of strength, sensation, or mentation Psychiatric: Normal mood and thought content Labs: Results Labs - Stool test: C. difficile positive Labs in last 18 hours CBC WBC 13.36 (H) Hb 8.7 (L) Plt 244 Hct 25.8 (L) ANC 11.62 (H) INR ??, PTT ??, Anti-Xa ?? BMP Na 133 (L) Cl 106 BUN 43 (H) Glu 113 (H) K 3.6 Co2 17 (L) Cr 2.40 (H) Ca 7.8 (L) iCa ?? Mg 2.2, Phos 2.8 Lactate ?? LFT AST 21 AlkPhos 61 T Prot 4.4 (L) ALK 19 Bili 0.3 Alb ?? D.Bili ?? No results found for: UTPCR No results found for: TSH , FREET4 No results found for: CEA , CA199 , AFP Labs personally reviewed Imaging: As noted in HPI if relevant. Assessment/Plan Justin Best 69 y.o. male with newly diagnosed adenocarcinoma of gastroesophageal junctions. Medical oncology consulted for plan of care and management. #Gastroesophageal junctions adenocarcinoma. - Followed by Dr. Reina in [facility] - Co-managed with Dr. Kim Marcano with thoracic surgery. 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 Pylori negative NGS pending - Patient express wishes to stop chemotherapy and pursue immunotherapy treatment - F/U [facility] 09/01 #Clostridium difficile infection. - Stool test of 08/26 positive for C. difficile. - Dificid has been started 08/28 - A comprehensive discussion was held regarding the nature of C. difficile, its potential causes, and the importance of maintaining hand hygiene to prevent its spread. #Atrial fibrillation - Currently in sinus rhythm - Currently taking Eliquis - Cardiac patch monitor in place - Advised to keep the cardiology appointment as atrial fibrillation is a common condition that can be exacerbated by stress or infections. The risk of stroke associated with atrial fibrillation was discussed, and the potential need for anticoagulation therapy was mentioned. #Chemo induced N/V - Post-chemotherapy complications of significant nausea & vomiting. - Continue PRN Zofran and Compazine -currently effective Plan: - Continue PRN Zofran and Compazine -currently effective - Continue Dificid 10 days for c-diff (started 08/28) - Review of Contact Precautions required for c-diff and importance of maintaining hand hygiene to prevent its spread. - Advised to keep the cardiology appointment as atrial fibrillation - Stage/Grade -pending staging scans - NGS pending - F/U [facility] 09/01 Medical oncology will continue to follow. Please call with additional questions or concerns. 35 minutes was spent on this encounter; including preparing to see the patient, which involved review/interpretation of diagnostics and reports; obtaining and/or reviewing separately obtained history; performing appropriate physical exam; ordering/scheduling medications, tests or procedures; communicating findings and counseling/educating the patient, family and/or caregiver; documentation in EMR; and care coordination. The selection, dosing and administration of anti-cancer agents and the management of associated toxicities requires complex medical decision making and intensive monitoring for toxicity. Modifications of drug dose and schedule as well as the initiation of supportive care interventions are often necessary because of expected toxicities. This varies individually based on patient tolerability, priortreatments and comorbidities/risk status. Monitoring typically entails labs, imaging and/or other diagnostics, utilizing a healthcare delivery team experienced in the use of anticancer agents and themanagement of associated toxicities in patients with cancer. Attending physician previously developed plan of care, which I discussed with the patient, whom I saw independently. The patient verbalized understanding and agrees with plan. All questions answered to their satisfaction. Encouraged to call should other questions/concerns arise. Taco Russell APRN Division of Medical Oncology [facility] Verbal consent was obtained to use ambient listening technology to assist in the documentation of the encounter * Care Plan - Earnestine Gomez RN - 08/29/2025 10:13 AM EDT Problem: Adult Inpatient Plan of Care Goal: Plan of Care Review Outcome: Ongoing, Progressing Flowsheets Taken 08/29/2025322 by Oksana Santos RN Progress: no change Plan of Care Reviewed With: patient family Taken 08/26/20252246 by Aristides Villatoro RN Outcome Evaluation: Plan of care reviewed with pt and family at bedside. Verbalized understanding. Goal: Patient-Specific Goal (Individualized) Outcome: Ongoing, Progressing Flowsheets (Taken 08/29/2025933) Patient/Family-Specific Goals (Include Timeframe): patient will understand diagnosis and treatment. Individualized Care Needs: ongong Anxieties, Fears or Concerns: C. Diff Goal: Absence of Hospital-Acquired Illness or Injury Outcome: Ongoing, Progressing Intervention: Identify and Manage Fall Risk Flowsheets (Taken 08/29/2025933) Safety Promotion/Fall Prevention: activity supervised clutter-free environment maintained nonskid shoes/slippers when out of bed lighting adjusted Intervention: Prevent Skin Injury Flowsheets Taken 08/29/2025933 by Earnestine Gomez RN Body Position: weight shifting Taken 08/29/2025322 by Oksana Santos RN Skin Protection: incontinence pads utilized Intervention: Prevent and Manage VTE (Venous Thromboembolism) Risk Flowsheets (Taken 08/29/2025 0934) VTE Prevention/Management: bilateral compression stockings off Intervention: Prevent Infection Flowsheets (Taken 08/29/2025322 by Oksana Santos RN) Infection Prevention: cohorting utilized personal protective equipment utilized rest/sleep promoted equipment surfaces disinfected environmental surveillance performed hand hygiene promoted single patient room provided Goal: Optimal Comfort and Wellbeing Outcome: Ongoing, Progressing Intervention: Monitor Pain and Promote Comfort Flowsheets (Taken 08/29/2025322 by Oksana Santos RN) Pain Management Interventions: rest relaxation techniques promoted therapeutic presence quiet environment facilitated pillow support provided position adjusted care clustered emotional support Intervention: Provide Person-Centered Care Flowsheets (Taken 08/29/2025322 by Oksana Santos RN) Trust Relationship/Rapport: care explained questions encouraged reassurance provided choices provided thoughts/feelings acknowledged empathic listening provided questions answered Problem: Pain Acute Goal: Optimal Pain Control and Function Outcome: Ongoing, Progressing Intervention: Optimize Psychosocial Wellbeing Flowsheets (Taken 08/29/2025322 by Oksana Santos RN) Supportive Measures: active listening utilized decision-making supported relaxation techniques promoted self-care encouraged Diversional Activities: television smartphone Spiritual Activities Assistance: affirmation provided hope instilled Intervention: Develop Pain Management Plan Flowsheets (Taken 08/29/2025322 by Oksana Santos RN) Pain Management Interventions: rest relaxation techniques promoted therapeutic presence quiet environment facilitated pillow support provided position adjusted care clustered emotional support Intervention: Prevent or Manage Pain Flowsheets (Taken 08/29/2025322 by Oksana Santos RN) Sensory Stimulation Regulation: quiet environment promoted care clustered lighting decreased Bowel Elimination Promotion: adequate fluid intake promoted Sleep/Rest Enhancement: awakenings minimized relaxation techniques promoted room darkened noise level reduced consistent schedule promoted regular sleep/rest pattern promoted family presence promoted Medication Review/Management: medications reviewed Problem: Nausea and Vomiting Goal: Nausea and Vomiting Relief Outcome: Ongoing, Progressing Intervention: Prevent and Manage Nausea and Vomiting Flowsheets Taken 08/29/2025322 by Oksana Santos RN Fluid/Electrolyte Management: intravenous fluids adjusted Environmental Support: calm environment promoted environmental consistency promoted personal routine supported Taken 08/28/20251999 by Oksana Santos RN Oral Care: oral rinse provided Problem: Electrolyte Imbalance Goal: Electrolyte Balance Outcome: Ongoing, Progressing Flowsheets (Taken 08/29/2025322 by Oksana Santos RN) Electrolyte Imbalance: Plan of Care: electrolyte balance Intervention: Monitor and Manage Electrolyte Imbalance Flowsheets (Taken 08/29/2025322 by Oksana Santos RN) Fluid/Electrolyte Management: intravenous fluids adjusted Problem: Infection Goal: Absence of Infection Signs and Symptoms Outcome: Ongoing, Progressing Intervention: Prevent or Manage Infection Flowsheets Taken 08/29/2025933 by Earnestine Gomez RN Isolation Precautions: contact neutropenic Taken 08/29/2025322 by Oksana Santos RN Infection Management: aseptic technique maintained Fever Reduction/Comfort Measures: fluid intake increased lightweight bedding lightweight clothing Problem: Skin Injury Risk Increased Goal: Skin Health and Integrity Outcome: Ongoing, Progressing Intervention: Optimize Skin Protection Flowsheets Taken 08/29/2025933 by Earnestine Gomez RN Activity Management: activity adjusted per tolerance Taken 08/29/2025322 by Oksana Santos RN Pressure Reduction Techniques: frequent weight shift encouraged Pressure Reduction Devices: positioning supports utilized Skin Protection: incontinence pads utilized Head of Bed (HOB) Positioning: HOB elevated Intervention: Promote and Optimize Oral Intake Flowsheets (Taken 08/29/2025322 by Oksana Santos RN) Oral Nutrition Promotion: physical activity promoted rest periods promoted social interaction promoted Nutrition Interventions: diet adjustment recommended Problem: Fall Injury Risk Goal: Absence of Fall and Fall-Related Injury Outcome: Ongoing, Progressing Intervention: Identify and Manage Contributors Flowsheets (Taken 08/29/2025322 by Oksana Santos, RN) Medication Review/Management: medications reviewed Intervention: Promote Injury-Free Environment Flowsheets (Taken 08/29/2025933) Safety Promotion/Fall Prevention: activity supervised clutter-free environment maintained nonskid shoes/slippers when out of bed lighting adjusted * Query Clarification Note - Jadon Rangel MD - 08/29/2025 10:05 AM EDT Which of the following diagnoses best reflects the above abnormalities and the condition you were monitoring/evaluating/treating: [x]Hyponatremia []Other, please specify This documentation will become part of the patient's medical record. * Progress Notes - Jadon Rangel MD - 08/29/2025 7:16 AM EDT Subjective Justin Best is a 69 y.o. male with a history of Poorly differentiated GE junction adenocarcinoma, hypertension, and hyperlipidemia, Recently diagnosed AF (On Eliquis), presenting with fever,worsening epigastric pain, and poor oral intake following recent chemotherapy. He was diagnosed with GE junction adenocarcinoma in June 2025 after developing progressive dysphagia. Upper endoscopy at that time revealed a fungating, friable mass in the distal esophagus, and biopsy confirmed invasive moderate to poorly differentiated adenocarcinoma involving the gastroesophageal junction. Pathology was notable for HER2 negativity, PD-L1 CPS <1, CLDN18 positivity, and loss of MLH1 and PMS2 expression, with MLH1 promoter methylation pending. He was evaluated by oncology and started on neoadjuvant FLOT chemotherapy (fluorouracil, leucovorin, oxaliplatin, docetaxel) every 14 days. A cath wasplaced on 07/29/2025 for chemo treatment. He was admitted from 08/13-08/15 for management of epigastric pain, nausea, vomiting, and diarrhea. During that admission, he was found to have new- onset paroxysmal atrial fibrillation and mild troponin elevation consistent with non-ischemic myocardial injury.Infectious workup was negative, and his symptoms improved with supportive care. He was discharged on eliquis, holter monitor for 14 days, ppi, and as-needed antiemetics, with plans to continue chemotherapy as scheduled. Since discharge, he reports persistent epigastric pain, fatigue, and progressively worsening appetite with minimal oral intake. He also endorses intermittent fevers at home but did not check temperatures. He denies chest pain, shortness of breath, dysuria, or focal neurologic symptoms. He presentedto an outside hospital, where he was febrile to 102.3 and found to be neutropenic with a WBC of 1.3, lactate 2.5, and mildly elevated troponin (0.12 initial, 2 hr repeat 0.10). He received intravenous cefepime, fluids, morphine, ondansetron, aspirin, and calcium gluconate before being transferred to this facility for ongoing management of neutropenic fever. In ED here afebrile, BP 107/66. Labs remarkable for WBC 1.26, neutropenic to 710, lymphocytopenic to 200, Cr 1.25, Na 129, CO2 21, Mg 1.7, Phos 2.3, initial trop 39, lipase 14, CRP 318, Lac acid 1.7, VBG: ph 7.42, pCO2 37, HCO3 24, blood cultures pending, UA pending. EKG showed Afib w/ RVR. Chest XR pending. Has received 1500 ml LR at ED(2500 ml LR at previous ED), IV mg and phos, compazine so far. Patient is admitted to hospital medicine for Fever in Immunocompromised state and neutropenia. Infectious workup ordered. Patient received one of cefepime in ED. We will continue Cefepime emperically. CXR reviewed. UA and stool studies ordered. Follow up blood cultures. Last chemo was a week ago. Patient follows up with Oncology team. Patient is unable to tolerate PO diet (even liquids). Also his epigastric pain is worsening and uncontrolled. Epigastric tenderness +. There was discussion about possible surgical intervention with Oncology team during last clinic visit. Morphine helped with his pain. Will start on Oxycodone 5 mg x Q6 PRN. Oncology consult in am. Waiting on imaging from OSH. IVF while he is unable to tolerate PO. 08/27/2025: No issues noted overnight still feeling weak. 08/28/2025: No adverse issues noted overnight. CRP decreased from 318.6 to 185.0 mg/L, suggesting improvement in inflammatory response. BUN increased from 26 to 33 mg/dL and BUN/Cr ratio from 23 to 30, with creatinine stable (1.13 to 1.09 mg/dL), indicating worsening azotemia despite stable renal function. Hemoglobin dropped from 9.8 to 8.5 g/dL and hematocrit from 28.9% to 25.0%, consistent with worsening anemia. Procalcitonin elevated at 10.70 ng/mL, room Urinalysis negative for bacteria, nitrites, and leukocytes; WBC casts present, specific gravity >1.030, and hyaline casts 11-20, raising concern for renal tubular injury. C. difficile PCR positive for toxin B gene; GI panel negative for other pathogens. Net positive fluid balance of 4098.75 mL, with low urine output (425 mL). Blood cell counts entering along with differential. Phosphorus is 1.6 mEq we will replete. Patient is doing well we will advance his diet from a full liquid to a regular GI soft diet finishing off IV fluidsat this time. Slight improvement from yesterday. C. Diff toxin positive. Will stop Maxipime IV now a nd start Difcid for 14 days. 08/29/2025: No adverse events noted overnight. Acute kidney injury developed, with creatinine rising from 1.09 to 2.40 mg/dL and eGFR dropping from 73.0 to 28.3 mL/min/1.73m2; BUN increased from 33 to 43 mg/dL, but BUN/Cr ratio decreased from 30 to 18, indicating worsening renal function. CRP decreased further from 185.0 to 104.0 mg/L, and procalcitonin decreased from 10.70 to 6.82 ng/mL, suggesting improvement in systemic inflammation. WBC increased markedly from 2.30 to 13.36 10*3/uL, and ANCrose from 1.46 to 5.63 10*3/uL, indicating resolution of neutropenia. Net fluid balance improved, with net IO decreasing from +4098.75 mL to +720 mL and PO intake increased to 720 mL. Blood cultures r emain negative at day 2; C. difficile EIA confirmed infection (toxin and GDH positive). Review of Systems Constitutional: Positive for activity change and appetite change. Gastrointestinal: Positive for abdominal distention and abdominal pain. Negative for diarrhea, nausea and vomiting. All other systems reviewed and are negative. Objective Vitals Temp: [36.3 ??C (97.3 ??F)-36.8 ??C (98.2 ??F)] 36.8 ??C (98.2 ??F) Heart Rate: [70-76] 70 Resp: [16] 16 BP: (104-131)/(70-97) 124/97 Physical Exam Constitutional: General: He is not in acute distress. Appearance: He is normal weight. He is not ill-appearing. HENT: Head: Normocephalic and atraumatic. Mouth/Throat: Mouth: Mucous membranes are moist. Eyes: General: No scleral icterus. Right eye: No discharge. Left eye: No discharge. Extraocular Movements: Extraocular movements intact. Pupils: Pupils are equal, round, and reactive to light. Cardiovascular: Rate and Rhythm: Normal rate. Pulmonary: Effort: Pulmonary effort is normal. Abdominal: General: Abdomen is flat. Musculoskeletal: General: Normal range of motion. Right lower leg: No edema. Left lower leg: No edema. Neurological: General: No focal deficit present. Mental Status: He is oriented to person, place, and time. Mental status is at baseline. Assessment & Plan Sepsis ([facility]) Justin Best is a 69-year-old male with a known medical history of Poorly differentiated GEjunction adenocarcinoma, hypertension, and hyperlipidemia, Recently diagnosed AF (On Eliquis), presenting with fever, worsening epigastric pain, and poor oral intake following recent chemotherapy. Clostridium difficile infection with the associated diarrhea in the setting of neutropenia: Patientis admitted to hospital medicine for Fever in Immunocompromised state and neutropenia. Infectious workup ordered. Patient received one of cefepime in ED. CXR WNL. C. Diff toxin and DNA positive. Contiinue with Dificid fidaxomicin 200 mg PO BID for 29 doses. UA and stool studies ordered. Follow up blood cultures. Last chemo was a week ago prior to coming into the hospital. CRP elevated trend procalcitonin CRP and ESR Acute kidney injury: On admission patient's BUN and creatinine were slightly elevated IV fluids were given they downtrended to 26 and 1.13. On 08/29/2025 BUN is 43 creatinine is 2.40 electrolytes reviewed. Adjust medications for creatinine parents Monitor BUN and creatinine daily No need for nephrology consult Consider ultrasound of the kidneys if patient is not making enough urine Strict I's and O's every 8 hours Monitor other electrolytes daily. Adenocarcinoma of GE junction & Worsening Cancer Related Pain & Inability to tolerate PO: Patient follows up with [facility]cology team. Patient is unable to tolerate PO diet (even liquids). Also his epigastric pain is worsening and uncontrolled. Epigastric tenderness +. There was discussion about possible surgical intervention with Oncology team during last clinic visit. Morphine helped with his pain. Will start on Oxycodone 5 mg x Q6 PRN. Oncology consult in am. Waiting on imaging from OSH. IVF while he is unable to tolerate PO. Hypomagnesemia Hypophosphatemia: Monitored daily and replete Atrial Fibrillation: Continue Eliquis Telemetry CKD: Serum creatinine at baseline FENGI: In full liquid diet, lactated Ringer's at 75 cc an hour DVT prophylaxis: Eliquis apixaban 5 mg by mouth he had GI prophylaxis: Protonix 40 mg by mouth daily before breakfast Code status: Full code Disposition: Continue admission to Medicine at this time not yet medically optimized for discharge Jadon Rangel MD Internal Medicine Hospitalist Return To [employer] Department of Internal Medicine Division of [facility] [place] [address] Preferred method is secure chat or cell phone at [phone] Medically Ready for Discharge:Anticipated in 5+ Days * Care Plan - Oksana Santos RN - 08/29/2025 3:35 AM EDT Problem: Adult Inpatient Plan of Care Goal: Plan of Care Review Outcome: Ongoing, Progressing Flowsheets (Taken 08/29/2025322) Progress: no change Plan of Care Reviewed With: patient family Goal: Patient-Specific Goal (Individualized) Outcome: Ongoing, Progressing Flowsheets (Taken 08/28/20251999) Patient/Family-Specific Goals (Include Timeframe): patient will remain free from injury throughout the shift Individualized Care Needs: ongoing support Anxieties, Fears or Concerns: C. diff Goal: Absence of Hospital-Acquired Illness or Injury Outcome: Ongoing, Progressing Intervention: Identify and Manage Fall Risk Flowsheets (Taken 08/29/2025322) Safety Promotion/Fall Prevention: activity supervised lighting adjusted safety round/check completed mobility aid in reach assistive device/personal items within reach nonskid shoes/slippers when out of bed room organization consistent clutter-free environment maintained fall prevention program maintained Intervention: Prevent Skin Injury Flowsheets (Taken 08/29/2025322) Body Position: weight shifting Skin Protection: incontinence pads utilized Intervention: Prevent and Manage VTE (Venous Thromboembolism) Risk Flowsheets (Taken 08/29/2025322) VTE Prevention/Management: bilateral SCDs (sequential compression devices) off Intervention: Prevent Infection Flowsheets (Taken 08/29/2025322) Infection Prevention: cohorting utilized personal protective equipment utilized rest/sleep promoted equipment surfaces disinfected environmental surveillance performed hand hygiene promoted single patient room provided Goal: Optimal Comfort and Wellbeing Outcome: Ongoing, Progressing Intervention: Monitor Pain and Promote Comfort Flowsheets (Taken 08/29/2025322) Pain Management Interventions: rest relaxation techniques promoted therapeutic presence quiet environment facilitated pillow support provided position adjusted care clustered emotional support Intervention: Provide Person-Centered Care Flowsheets (Taken 08/29/2025322) Trust Relationship/Rapport: care explained questions encouraged reassurance provided choices provided thoughts/feelings acknowledged empathic listening provided questions answered Problem: Pain Acute Goal: Optimal Pain Control and Function Outcome: Ongoing, Progressing Intervention: Optimize Psychosocial Wellbeing Flowsheets (Taken 08/29/2025322) Supportive Measures: active listening utilized decision-making supported relaxation techniques promoted self-care encouraged Diversional Activities: television smartphone Spiritual Activities Assistance: affirmation provided hope instilled Intervention: Develop Pain Management Plan Flowsheets (Taken 08/29/2025322) Pain Management Interventions: rest relaxation techniques promoted therapeutic presence quiet environment facilitated pillow support provided position adjusted care clustered emotional support Intervention: Prevent or Manage Pain Flowsheets (Taken 08/29/2025322) Sensory Stimulation Regulation: quiet environment promoted care clustered lighting decreased Bowel Elimination Promotion: adequate fluid intake promoted Sleep/Rest Enhancement: awakenings minimized relaxation techniques promoted room darkened noise level reduced consistent schedule promoted regular sleep/rest pattern promoted family presence promoted Medication Review/Management: medications reviewed Problem: Nausea and Vomiting Goal: Nausea and Vomiting Relief Outcome: Ongoing, Progressing Intervention: Prevent and Manage Nausea and Vomiting Flowsheets (Taken 08/29/2025322) Fluid/Electrolyte Management: intravenous fluids adjusted Environmental Support: calm environment promoted environmental consistency promoted personal routine supported Problem: Electrolyte Imbalance Goal: Electrolyte Balance Outcome: Ongoing, Progressing Flowsheets (Taken 08/29/2025322) Electrolyte Imbalance: Plan of Care: electrolyte balance Intervention: Monitor and Manage Electrolyte Imbalance Flowsheets (Taken 08/29/2025322) Fluid/Electrolyte Management: intravenous fluids adjusted Problem: Infection Goal: Absence of Infection Signs and Symptoms Outcome: Ongoing, Progressing Intervention: Prevent or Manage Infection Flowsheets (Taken 08/29/2025322) Infection Management: aseptic technique maintained Fever Reduction/Comfort Measures: fluid intake increased lightweight bedding lightweight clothing Isolation Precautions: contact neutropenic Problem: Skin Injury Risk Increased Goal: Skin Health and Integrity Outcome: Ongoing, Progressing Intervention: Optimize Skin Protection Flowsheets (Taken 08/29/2025 032) Activity Management: activity adjusted per tolerance Pressure Reduction Techniques: frequent weight shift encouraged Pressure Reduction Devices: positioning supports utilized Skin Protection: incontinence pads utilized Head of Bed (HOB) Positioning: HOB elevated Intervention: Promote and Optimize Oral Intake Flowsheets (Taken 08/29/2025 032) Oral Nutrition Promotion: physical activity promoted rest periods promoted social interaction promoted Nutrition Interventions: diet adjustment recommended * Progress Notes - Jadon Rangel MD - 08/28/2025 7:33 AM EDT Subjective Justin Best is a 69 y.o. male with a history of Poorly differentiated GE junction adenocarcinoma, hypertension, and hyperlipidemia, Recently diagnosed AF (On Eliquis), presenting with fever,worsening epigastric pain, and poor oral intake following recent chemotherapy. He was diagnosed with GE junction adenocarcinoma in June 2025 after developing progressive dysphagia. Upper endoscopy at that time revealed a fungating, friable mass in the distal esophagus, and biopsy confirmed invasive moderate to poorly differentiated adenocarcinoma involving the gastroesophageal junction. Pathology was notable for HER2 negativity, PD-L1 CPS <1, CLDN18 positivity, and loss of MLH1 and PMS2 expression, with MLH1 promoter methylation pending. He was evaluated by oncology and started on neoadjuvant FLOT chemotherapy (fluorouracil, leucovorin, oxaliplatin, docetaxel) every 14 days. A cath wasplaced on 07/29/2025 for chemo treatment. He was admitted from 08/13-08/15 for management of epigastric pain, nausea, vomiting, and diarrhea. During that admission, he was found to have new- onset paroxysmal atrial fibrillation and mild troponin elevation consistent with non-ischemic myocardial injury.Infectious workup was negative, and his symptoms improved with supportive care. He was discharged on eliquis, holter monitor for 14 days, ppi, and as-needed antiemetics, with plans to continue chemotherapy as scheduled. Since discharge, he reports persistent epigastric pain, fatigue, and progressively worsening appetite with minimal oral intake. He also endorses intermittent fevers at home but did not check temperatures. He denies chest pain, shortness of breath, dysuria, or focal neurologic symptoms. He presentedto an outside hospital, where he was febrile to 102.3 and found to be neutropenic with a WBC of 1.3, lactate 2.5, and mildly elevated troponin (0.12 initial, 2 hr repeat 0.10). He received intravenous cefepime, fluids, morphine, ondansetron, aspirin, and calcium gluconate before being transferred to this facility for ongoing management of neutropenic fever. In ED here afebrile, BP 107/66. Labs remarkable for WBC 1.26, neutropenic to 710, lymphocytopenic to 200, Cr 1.25, Na 129, CO2 21, Mg 1.7, Phos 2.3, initial trop 39, lipase 14, CRP 318, Lac acid 1.7, VBG: ph 7.42, pCO2 37, HCO3 24, blood cultures pending, UA pending. EKG showed Afib w/ RVR. Chest XR pending. Has received 1500 ml LR at ED(2500 ml LR at previous ED), IV mg and phos, compazine so far. Patient is admitted to hospital medicine for Fever in Immunocompromised state and neutropenia. Infectious workup ordered. Patient received one of cefepime in ED. We will continue Cefepime emperically. CXR reviewed. UA and stool studies ordered. Follow up blood cultures. Last chemo was a week ago. Patient follows up with Oncology team. Patient is unable to tolerate PO diet (even liquids). Also his epigastric pain is worsening and uncontrolled. Epigastric tenderness +. There was discussion about possible surgical intervention with Oncology team during last clinic visit. Morphine helped with his pain. Will start on Oxycodone 5 mg x Q6 PRN. Oncology consult in am. Waiting on imaging from OSH. IVF while he is unable to tolerate PO. 08/27/2025: No issues noted overnight still feeling weak. 08/28/2025: No adverse issues noted overnight. CRP decreased from 318.6 to 185.0 mg/L, suggesting improvement in inflammatory response. BUN increased from 26 to 33 mg/dL and BUN/Cr ratio from 23 to 30, with creatinine stable (1.13 to 1.09 mg/dL), indicating worsening azotemia despite stable renal function. Hemoglobin dropped from 9.8 to 8.5 g/dL and hematocrit from 28.9% to 25.0%, consistent with worsening anemia. Procalcitonin elevated at 10.70 ng/mL, room Urinalysis negative for bacteria, nitrites, and leukocytes; WBC casts present, specific gravity >1.030, and hyaline casts 11-20, raising concern for renal tubular injury. C. difficile PCR positive for toxin B gene; GI panel negative for other pathogens. Net positive fluid balance of 4098.75 mL, with low urine output (425 mL). Blood cell counts entering along with differential. Phosphorus is 1.6 mEq we will replete. Patient is doing well we will advance his diet from a full liquid to a regular GI soft diet finishing off IV fluidsat this time. Slight improvement from yesterday. C. Diff toxin positive. Will stop Maxipime IV now a nd start Difcid for 14 days. Review of Systems Constitutional: Positive for activity change and appetite change. Gastrointestinal: Positive for abdominal distention and abdominal pain. Negative for diarrhea, nausea and vomiting. All other systems reviewed and are negative. Objective Vitals Temp: [36.3 ??C (97.4 ??F)-36.7 ??C (98.1 ??F)] 36.3 ??C (97.4 ??F) Heart Rate: [78-96] 78 Resp: [18] 18 BP: (100-134)/(71-81) 125/71 Physical Exam Constitutional: General: He is not in acute distress. Appearance: He is normal weight. He is not ill-appearing. HENT: Head: Normocephalic and atraumatic. Mouth/Throat: Mouth: Mucous membranes are moist. Eyes: General: No scleral icterus. Right eye: No discharge. Left eye: No discharge. Extraocular Movements: Extraocular movements intact. Pupils: Pupils are equal, round, and reactive to light. Cardiovascular: Rate and Rhythm: Normal rate. Pulmonary: Effort: Pulmonary effort is normal. Abdominal: General: Abdomen is flat. Musculoskeletal: General: Normal range of motion. Right lower leg: No edema. Left lower leg: No edema. Neurological: General: No focal deficit present. Mental Status: He is oriented to person, place, and time. Mental status is at baseline. Assessment & Plan Sepsis ([facility]) Justin Best is a 69-year-old male with a known medical history of Poorly differentiated GEjunction adenocarcinoma, hypertension, and hyperlipidemia, Recently diagnosed AF (On Eliquis), presenting with fever, worsening epigastric pain, and poor oral intake following recent chemotherapy. Fever in Immunocompromised state & Neutropenia: Patient is admitted to hospital medicine for Fever in Immunocompromised state and neutropenia. Infectious workup ordered. Patient received one of cefepime in ED. CXR WNL. C. Diff toxin and DNA positive. Start Dificid fidaxomicin 200 mg PO BID for 29 doses. UA and stool studies ordered. Follow up blood cultures. Last chemo was a week ago. CRP elevated trend procalcitonin CRP and ESR Adenocarcinoma of GE junction & Worsening Cancer Related Pain & Inability to tolerate PO: Patient follows up with Oncology team. Patient is unable to tolerate PO diet (even liquids). Also his epigastric pain is worsening and uncontrolled. Epigastric tenderness +. There was discussion about possible surgical intervention with Oncology team during last clinic visit. Morphine helped with his pain. Will start on Oxycodone 5 mg x Q6 PRN. Oncology consult in am. Waiting on imaging from OSH. IVF while he is unable to tolerate PO. Hypomagnesemia Hypophosphatemia: Monitored daily and replete Atrial Fibrillation: Continue Eliquis Telemetry CKD: Serum creatinine at baseline FENGI: In full liquid diet, lactated Ringer's at 75 cc an hour DVT prophylaxis: Eliquis apixaban 5 mg by mouth he had GI prophylaxis: Protonix 40 mg by mouth daily before breakfast Code status: Full code Disposition: Continue admission to Medicine at this time not yet medically optimized for discharge Jadon Rangel MD Internal Medicine Hospitalist Return To [employer] Department of Internal Medicine Division of Hospital Medicine [address] [address] Preferred method is secure chat or cell phone at [phone] Medically Ready for Discharge:Anticipated in 5+ Days * Care Plan - Vaishali Paul RN - 08/28/2025 12:42 AM EDT Problem: Adult Inpatient Plan of Care Goal: Plan of Care Review Outcome: Ongoing, Progressing Flowsheets (Taken 08/26/20257 by Aristides Villatoro RN) Progress: improving Outcome Evaluation: Plan of care reviewed with pt and family at bedside. Verbalized understanding. Plan of Care Reviewed With: patient spouse family Goal: Patient-Specific Goal (Individualized) Outcome: Ongoing, Progressing Flowsheets (Taken 08/27/20251999) Patient/Family-Specific Goals (Include Timeframe): Patient will report fewer episodes of loose stools for the shift. Patient will verbalize understanding of daily plan of care. Individualized Care Needs: ongoing Anxieties, Fears or Concerns: adverse chemotherapy symptoms * Consults - Diony Alvarez DO - 08/27/2025 2:30 PM EDTAssociated Order(s): IP CONSULT TO ONCOLOGY Images from the original note were not included. Division of Hematology and Oncology Medical Oncology Consult Note Patient Name: Justin Best Date of : 1955 69 y.o. Date: 08/27/25 Reason for Consult: FTT Primary Service: [facility] History of Present Illness: Justin Best is a 69 y.o. male with Poorly differentiated GE junction adenocarcinoma, hypertension, and hyperlipidemia, Recently diagnosed AF (On Eliquis), presenting with fever, worsening epigastric pain, and poor oral intake following recent chemotherapy. Oncology consulted for co management. History of Present Illness The patient is a 69-year-old male presenting for oncology consultation. Admitted post-chemotherapy with increased nausea, vomiting, decreased oral intake, and diarrhea. Symptoms are similar to the first chemotherapy but with more severe nausea and black vomit. Stools aredark, with no blood reported. The patient experienced fever during an ER visit on 08/26/2025. He underwent one chemotherapy cycle with pump placement and subsequent fluid infusion, which temporarily alleviated symptoms. Review of Systems: A comprehensive 14 point review of systems was performed, noted to be negative with the pertinent positives documented in the HPI section of this note. Oncology History: [Associated problem not found] Oncology History Overview Note Mr. Best is a 69-year-old male with a relevant past medical history of hypertension who presents to [facility] clinic today to establish care for recently [...] immuno reaction (MLH1 promoter methylation study pending). 08/03/2025: C1D1 Neoadjuvant FLOT+D (Durvalumab held due to insurance coverage issue) 08/13-08/15/2025: admitted for dehydration, hyponatremia, and A. Fib. Started on Eliquis 08/18/2025: C1D15 completed Adenocarcinoma of gastroesophageal junction 07/20/2025 Initial Diagnosis Adenocarcinoma of gastroesophageal junction (CMS/HCC) 08/03/2025 - Chemotherapy leucovorin (Wellcovorin) 434 mg in dextrose 5 % 100 mL IVPB, 200 mg/m2 = 434 mg, Intravenous, Once,1 of 2 cycles Administration: 434 mg (08/03/2025), 434 mg (08/18/2025) OXALIplatin (Eloxatin) 185 mg in dextrose 5 % 250 mL IVPB, 85 mg/m2 = 185 mg, Intravenous, Once, 1 of 2 cycles Administration: 185 mg (08/03/2025), 185 mg (08/18/2025) DOCEtaxel (Taxotere) 110 mg in sodium chloride 0.9 % 250 mL IVPB, 50 mg/m2 = 110 mg, Intravenous, Once, 1 of 2 cycles Administration: 110 mg (08/03/2025), 110 mg (08/18/2025) durvalumab (Imfinzi) 1,500 mg in sodium chloride 0.9 % 250 mL IVPB, 1,500 mg, Intravenous, Once, 1 of 2 cycles Administration: 1,500 mg (08/18/2025) fluorouracil (Adrucil) 5,750 mg in sodium chloride 0.9 % 170 mL infusion - for home use, 2,600 mg/m2 = 5,750 mg, Intravenous, Over 46 hours, 1 of 2 cycles Administration: 5,750 mg (08/03/2025), 5,750 mg (08/18/2025) Past Medical History: Past Medical History[1] Past Surgical History: Surgical History[2] Family History: Family History[3] Reviewed and noncontributory Social History: Social History Socioeconomic History Marital [...] file Social Connections: Unknown (08/19/2023) Received from [facility] Family and Community Support Help with Day-to-Day [...] file Homeless in the Last Year: No Tobacco Use History[4] Social History Substance and Sexual Activity Alcohol Use Never Social History Substance and Sexual Activity Drug Use Never Allergies: Allergies[5] Medications: Current Medications[6] Vital Signs: Visit Vitals BP 100/71 (BP Location: Right arm, Patient Position: Lying) Pulse 89 Temp 36.5 ??C (97.7 ??F) (Oral) Resp 18 Physical Examination: Performance Status 0: Fully active, able to carry on all pre-disease performance without restriction and 1: Restrictedin physically strenuous activity but ambulatory and able to do light work Gen: NAD, ill appearing and nontoxic. Alert and conversant. Eyes: No scleral icterus, normal conjunctivae HENT: Hearing normal, dentition normal. Mucus membranes are moist. Neck: supple, normal ROM. CV: warm and well perfused Resp: effort normal, breathing comfortably on room air GI: Abdomen is grossly nondistended. Black emesis noted MSK: No clubbing or cyanosis. Normal muscle tone. Skin: Warm, dry, no rash, no erythema, not diaphoretic, + pallor Neuro: No gross neurologic deficits. Psych: mood and affect normal, judgment and insight appear normal. Lab Findings: Lab Results Component Value Date WBC 2.30 (L) 08/27/2025 HGB 9.8 (L) 08/27/2025 HCT 28.9 (L) 08/27/2025 MCV 86 08/27/2025 PLT 168 08/27/2025 Lab Results Component Value Date GLUCOSE 120 (H) 08/27/2025 CALCIUM 8.0 (L) 08/27/2025 NA 129 (L) 08/27/2025 K 3.5 (L) 08/27/2025 CO2 19 (L) 08/27/2025 CL 98 08/27/2025 BUN 26 (H) 08/27/2025 CREATININE 1.13 08/27/2025 Lab Results Component Value Date ALT 21 08/26/2025 AST 20 08/26/2025 ALKPHOS 59 08/26/2025 BILITOT 0.4 08/26/2025 Imaging: === 08/26/25 === CT THORACIC OUTSIDE IMAGES Assessment and Plan: Justin Best is a 69 y.o. male with a relevant past medical history of hypertension who presents to [facility] clinic for evaluation and management of recently diagnosed GE junction adenocarcinoma.Co-managed with Dr. Kim Marcano with thoracic surgery. 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 Pylori negative NGS pending Started FLOT-D and had C1D15 on 08/18 but has had continued post chemotherapy complications. He has had discussions in the outpatient setting about switching treatment due to adverse reactions. At this time, we will focus on problems such as intractable nausea vomiting. Girls who have patient improve by mouth intake and control his nausea to take he was there his in his likely, we will have to hishusband his future chemotherapy infusion dates until he falls in the clinic in his as his treatmentchange Assessment & Plan 1. Post-chemotherapy complications: Acute. - Significant nausea, vomiting, and diarrhea post-second chemotherapy. Aggressive chemotherapy regimen contributing to symptoms. Aim to manage symptoms and resume eating. Pain management is a priority. Chemotherapy schedule adjustments may be needed based on progress. - Administer antiemetics for nausea and vomiting. - Provide antidiarrheal medication. - Pain management with analgesics. - Monitor and manage fever. 2. Fever: Acute. - Reported fever on 08/26/2025. Blood cultures and tests to identify infections. - Supportive care for fever management. - Administer antipyretics. 3. Insomnia. - Measures to improve sleep quality during hospital stay. - Prescribe sleep aid medication. Follow-up - Adjust chemotherapy schedule based on progress. - Monitor blood cultures and infection markers. ACTIVE ISSUES: Sepsis (CMS/HCC) Principal Problem: Sepsis (CMS/HCC) Thank you for the consult. Medical oncology will continue to follow. Recommendations were communicated to the primary service. Please call with additional questions or concerns. Patient was seen and examined with attending physician, Dr. Esqueda, who assisted with formulationof the plan as described. Diony Alvarez D.O. Hematology and Oncology Fellow [facility] [1] Past Medical History: Diagnosis Date Blood urine 2023 Esophageal cancer june 2025 Hypertension 1999 Kidney stone Skin cancer 2004 Stomach cancer (CMS/HCC) june 2025 [2] Past Surgical History: Procedure Laterality Date APPENDECTOMY 2020 BACK SURGERY 2001 CHOLECYSTECTOMY 1984 COLONOSCOPY 2023 GALLBLADDER SURGERY 1998 [3] Family History Problem Relation Name Age of Onset Cancer Father [4] Social History Tobacco Use Smoking Status Never Smokeless Tobacco Never [5] Allergies Allergen Reactions Penicillins Unknown - Patient states they do not know rxn details Childhood allergy, thinks it was maybe a rash, but isn't sure [6] Current Facility-Administered Medications: apixaban (Eliquis) tablet 5 mg, 5 mg, Oral, BID, Evi Reeves MD, 5 mg at 08/27/25927 cefepime (Maxipime) 2 g in sodium chloride 0.9% 100 mL IVPB (vial adapter required), 2 g, Intravenous, q8h, Evi Reeves MD, Stopped at 08/27/25 1228 lactated Ringer's infusion, 75 mL/hr, Intravenous, Continuous, Jadon Rangel MD, Last Rate: 75 mL/hr at 08/27/25930, 75 mL/hr at 08/27/25930 ondansetron (Zofran) tablet 8 mg, 8 mg, Oral, q8h PRN, Jadon Rangel MD oxyCODONE (Roxicodone) immediate release tablet 5 mg, 5 mg, Oral, q6h PRN, Evi Reeves MD pantoprazole (Protonix) EC tablet 40 mg, 40 mg, Oral, Daily before breakfast, Jadon Rangel MD, 40 mg at 08/27/25927 potassium chloride CR (Klor-Con) ER tablet 40 mEq, 40 mEq, Oral, q2h, Jadon Rangel MD, 40 mEq at 08/27/25 132 prochlorperazine (Compazine) tablet 10 mg, 10 mg, Oral, q6h PRN, Evi Reeves MD, 10 mg at 08/26/251951 rosuvastatin (Crestor) tablet 10 mg, 10 mg, Oral, Daily, Evi Reeves MD, 10 mg at 08/27/25 0928 Current Outpatient Medications: alfuzosin (Uroxatral) 10 MG [...] tablet by mouth daily., Disp: , Rfl: Multiple Vitamin (multivitamin) [...] tablet by mouth daily., Disp: , Rfl: Cosigned by Carmita Reyna MD at 08/27/2025 4:42 PM EDT Associated attestation - Carmita Reyna MD - 08/27/2025 4:42 PM EDT I saw and evaluated the patient with the resident/fellow. I discussed the case with the resident/fellow and agree with the findings and plan as documented. GEJ adenocarcinoma currently on neoadjuvantFLOT-durva completed C1D15, previous admission with similar symptoms, presents with nausea/vomiting, fever after chemotherapy. Currently being managed for neutropenic fever, infectious work up per primary, ANC today significantly improved, currently on Cefepime, continue supportive management of nausea/vomiting with zofran/ compazine as needed, has also been started on scopolamine patch. Follow counts closely. Consideration as outpatient to switch to immunotherapy given MSI-high * Progress Notes - Jadon Rangel MD - 08/27/2025 7:45 AM EDT Subjective Justin Best is a 69 y.o. male with a history of Poorly differentiated GE junction adenocarcinoma, hypertension, and hyperlipidemia, Recently diagnosed AF (On Eliquis), presenting with fever,worsening epigastric pain, and poor oral intake following recent chemotherapy. He was diagnosed with GE junction adenocarcinoma in June 2025 after developing progressive dysphagia. Upper endoscopy at that time revealed a fungating, friable mass in the distal esophagus, and biopsy confirmed invasive moderate to poorly differentiated adenocarcinoma involving the gastroesophageal junction. Pathology was notable for HER2 negativity, PD-L1 CPS <1, CLDN18 positivity, and loss of MLH1 and PMS2 expression, with MLH1 promoter methylation pending. He was evaluated by oncology and started on neoadjuvant FLOT chemotherapy (fluorouracil, leucovorin, oxaliplatin, docetaxel) every 14 days. A cath wasplaced on 07/29/2025 for chemo treatment. He was admitted from 08/13-08/15 for management of epigastric pain, nausea, vomiting, and diarrhea. During that admission, he was found to have new- onset paroxysmal atrial fibrillation and mild troponin elevation consistent with non-ischemic myocardial injury.Infectious workup was negative, and his symptoms improved with supportive care. He was discharged on eliquis, holter monitor for 14 days, ppi, and as-needed antiemetics, with plans to continue chemotherapy as scheduled. Since discharge, he reports persistent epigastric pain, fatigue, and progressively worsening appetite with minimal oral intake. He also endorses intermittent fevers at home but did not check temperatures. He denies chest pain, shortness of breath, dysuria, or focal neurologic symptoms. He presentedto an outside hospital, where he was febrile to 102.3 and found to be neutropenic with a WBC of 1.3, lactate 2.5, and mildly elevated troponin (0.12 initial, 2 hr repeat 0.10). He received intravenous cefepime, fluids, morphine, ondansetron, aspirin, and calcium gluconate before being transferred to this facility for ongoing management of neutropenic fever. In ED here afebrile, BP 107/66. Labs remarkable for WBC 1.26, neutropenic to 710, lymphocytopenic to 200, Cr 1.25, Na 129, CO2 21, Mg 1.7, Phos 2.3, initial trop 39, lipase 14, CRP 318, Lac acid 1.7, VBG: ph 7.42, pCO2 37, HCO3 24, blood cultures pending, UA pending. EKG showed Afib w/ RVR. Chest XR pending. Has received 1500 ml LR at ED(2500 ml LR at previous ED), IV mg and phos, compazine so far. Patient is admitted to hospital medicine for Fever in Immunocompromised state and neutropenia. Infectious workup ordered. Patient received one of cefepime in ED. We will continue Cefepime emperically. CXR reviewed. UA and stool studies ordered. Follow up blood cultures. Last chemo was a week ago. Patient follows up with [facility] team. Patient is unable to tolerate PO diet (even liquids). Also his epigastric pain is worsening and uncontrolled. Epigastric tenderness +. There was discussion about possible surgical intervention with Oncology team during last clinic visit. Morphine helped with his pain. Will start on Oxycodone 5 mg x Q6 PRN. Oncology consult in am. Waiting on imaging from OSH. IVF while he is unable to tolerate PO. 08/27/2025: No issues noted overnight still feeling weak Review of Systems Constitutional: Positive for activity change and appetite change. Gastrointestinal: Positive for abdominal distention and abdominal pain. Negative for diarrhea, nausea and vomiting. All other systems reviewed and are negative. Objective Vitals Temp: [36.7 ??C (98.1 ??F)-39.1 ??C (102.3 ??F)] 36.7 ??C (98.1 ??F) Heart Rate: [81-96] 81 Resp: [14-19] 16 BP: (107-133)/(63-91) 113/63 Physical Exam Constitutional: General: He is not in acute distress. Appearance: He is normal weight. He is not ill-appearing. HENT: Head: Normocephalic and atraumatic. Mouth/Throat: Mouth: Mucous membranes are moist. Eyes: General: No scleral icterus. Right eye: No discharge. Left eye: No discharge. Extraocular Movements: Extraocular movements intact. Pupils: Pupils are equal, round, and reactive to light. Cardiovascular: Rate and Rhythm: Normal rate. Pulmonary: Effort: Pulmonary effort is normal. Abdominal: General: Abdomen is flat. Musculoskeletal: General: Normal range of motion. Right lower leg: No edema. Left lower leg: No edema. Neurological: General: No focal deficit present. Mental Status: He is oriented to person, place, and time. Mental status is at baseline. Assessment & Plan Sepsis ([facility]) Justin Best is a 69-year-old male with a known medical history of Poorly differentiated GEjunction adenocarcinoma, hypertension, and hyperlipidemia, Recently diagnosed AF (On Eliquis), presenting with fever, worsening epigastric pain, and poor oral intake following recent chemotherapy. Fever in Immunocompromised state & Neutropenia: Patient is admitted to hospital medicine for Fever in Immunocompromised state and neutropenia. Infectious workup ordered. Patient received one of cefepime in ED. CXR We will continue Cefepime emperically. UA and stool studies ordered. Follow up blood cultures. Last chemo was a week ago. CRP elevated trend protocol CRP and ESR Adenocarcinoma of GE junction & Worsening Cancer Related Pain & Inability to tolerate PO: Patient follows up with Oncology team. Patient is unable to tolerate PO diet (even liquids). Also his epigastric pain is worsening and uncontrolled. Epigastric tenderness +. There was discussion about possible surgical intervention with Oncology team during last clinic visit. Morphine helped with his pain. Will start on Oxycodone 5 mg x Q6 PRN. Oncology consult in am. Waiting on imaging from OSH. IVF while he is unable to tolerate PO. Hypomagnesemia Hypophosphatemia: Monitored daily and replete Atrial Fibrillation: Continue Eliquis Telemetry CKD: Serum creatinine at baseline FENGI: In full liquid diet, lactated Ringer's at 75 cc an hour DVT prophylaxis: Eliquis apixaban 5 mg by mouth he had GI prophylaxis: Protonix 40 mg by mouth daily before breakfast Code status: Full code Disposition: Continue admission to Medicine at this time not yet medically optimized for discharge Jadon Rangel MD Internal Medicine Hospitalist Return To [employer] Department of Internal Medicine Division of Hospital Medicine [address] [address] Preferred method is secure chat or cell phone at [phone] Medically Ready for Discharge:Anticipated in 5+ Days * H&P - Evi Reeves MD - 08/26/2025 7:22 PM EDTAssociated Order(s): Consult to [facility] Images from the original note were not included. Consult to [facility] Consult performed by: Evi Reeves MD Consult ordered by: Maxi Donaldson MD Reason for consult: Fever in Immunocompromized patient, Inability to tolerate PO diet, Diarrhea Subjective Chief complaint Fever in Immunocompromised State and Inability to tolerate PO diet History Of Present Illness Justin Best is a 69 y.o. male with a history of Poorly differentiated GE junction adenocarcinoma, hypertension, and hyperlipidemia, Recently diagnosed AF (On Eliquis), presenting with fever,worsening epigastric pain, and poor oral intake following recent chemotherapy. He was diagnosed with GE junction adenocarcinoma in June 2025 after developing progressive dysphagia. Upper endoscopy at that time revealed a fungating, friable mass in the distal esophagus, and biopsy confirmed invasive moderate to poorly differentiated adenocarcinoma involving the gastroesophageal junction. Pathology was notable for HER2 negativity, PD-L1 CPS <1, CLDN18 positivity, and loss of MLH1 and PMS2 expression, with MLH1 promoter methylation pending. He was evaluated by oncology and started on neoadjuvant FLOT chemotherapy (fluorouracil, leucovorin, oxaliplatin, docetaxel) every 14 days. A cath wasplaced on 07/29/2025 for chemo treatment. He was admitted from 08/13-08/15 for management of epigastric pain, nausea, vomiting, and diarrhea. During that admission, he was found to have new- onset paroxysmal atrial fibrillation and mild troponin elevation consistent with non-ischemic myocardial injury.Infectious workup was negative, and his symptoms improved with supportive care. He was discharged on eliquis, holter monitor for 14 days, ppi, and as-needed antiemetics, with plans to continue chemotherapy as scheduled. Since discharge, he reports persistent epigastric pain, fatigue, and progressively worsening appetite with minimal oral intake. He also endorses intermittent fevers at home but did not check temperatures. He denies chest pain, shortness of breath, dysuria, or focal neurologic symptoms. He presentedto an outside hospital, where he was febrile to 102.3 and found to be neutropenic with a WBC of 1.3, lactate 2.5, and mildly elevated troponin (0.12 initial, 2 hr repeat 0.10). He received intravenous cefepime, fluids, morphine, ondansetron, aspirin, and calcium gluconate before being transferred to this facility for ongoing management of neutropenic fever. In ED here afebrile, BP 107/66. Labs remarkable for WBC 1.26, neutropenic to 710, lymphocytopenic to 200, Cr 1.25, Na 129, CO2 21, Mg 1.7, Phos 2.3, initial trop 39, lipase 14, CRP 318, Lac acid 1.7, VBG: ph 7.42, pCO2 37, HCO3 24, blood cultures pending, UA pending. EKG showed Afib w/ RVR. Chest XR pending. Has received 1500 ml LR at ED(2500 ml LR at previous ED), IV mg and phos, compazine so far. Patient is admitted to hospital medicine for Fever in Immunocompromised state and neutropenia. Infectious workup ordered. Patient received one of cefepime in ED. We will continue Cefepime emperically. CXR reviewed. UA and stool studies ordered. Follow up blood cultures. Last chemo was a week ago. Patient follows up with [facility] team. Patient is unable to tolerate PO diet (even liquids). Also his epigastric pain is worsening and uncontrolled. Epigastric tenderness +. There was discussion about possible surgical intervention with Oncology team during last clinic visit. Morphine helped with his pain. Will start on Oxycodone 5 mg x Q6 PRN. Oncology consult in am. Waiting on imaging from OSH. IVF while he is unable to tolerate PO. Medical/Surgical/Social/Family History I have reviewed and updated the patient history. Travel History Relevant International Travel History: Travel Screening Question Response Have you been in contact with someone who was sick? No / Unsure Do you have any of the following new or worsening symptoms? None of these Have you traveled internationally or domestically in the last month? No Travel History Travel since 07/27/25 No documented travel since 07/27/25 Relevant Domestic Travel History: Not significant Immunizations Reviewed Allergies Penicillins Outpatient medications in system Home Medications[1] Medications ordered for hospitalization Current Scheduled Medications[2] Current Continuous Medications[3] Current PRN Medications[4] Objective Review of Systems Constitutional: Positive for appetite change, chills and fever. Respiratory: Negative for cough, shortness of breath and stridor. Cardiovascular: Positive for leg swelling. Negative for chest pain. Gastrointestinal: Positive for abdominal pain, diarrhea, nausea and vomiting. Musculoskeletal: Positive for gait problem. Negative for back pain. Neurological: Positive for weakness. Negative for dizziness and headaches. Hematological: Bruises/bleeds easily. Psychiatric/Behavioral: Negative for agitation and behavioral problems. All other systems reviewed and are negative. Physical Exam Vitals and nursing note reviewed. Constitutional: Appearance: He is ill-appearing. HENT: Head: Normocephalic and atraumatic. Eyes: General: No scleral icterus. Cardiovascular: Rate and Rhythm: Normal rate. Heart sounds: No murmur heard. Comments: Chemo port in place, no redness noticed Pulmonary: Effort: No respiratory distress. Breath sounds: No wheezing, rhonchi or rales. Abdominal: Tenderness: There is abdominal tenderness. There is guarding. There is no rebound. Musculoskeletal: Right lower leg: Edema present. Left lower leg: Edema present. Skin: Coloration: Skin is pale. Neurological: General: No focal deficit present. Mental Status: Mental status is at baseline. Motor: Weakness present. Psychiatric: Mood and Affect: Mood normal. Behavior: Behavior normal. Last Recorded Vitals Blood pressure 116/69, pulse 92, temperature 37.4 ??C (99.4 ??F), resp. rate 18, height 1.829 m (6'), weight 86.9 kg (191 lb 9.3 oz), SpO2 96%. Results Review I have reviewed the latest lab and imaging results. Assessment & Plan Sepsis (CMS/[facility]) #Fever in Immunocompromised state: #Neutropenia Patient is admitted to hospital medicine for Fever in Immunocompromised state and neutropenia. Infectious workup ordered. Patient received one of cefepime in ED. We will continue Cefepime emperically. CXR reviewed. UA and stool studies ordered. Follow up blood cultures. Last chemo was a week ago. CRP elevated #Adenocarcinoma of GE junction: #Worsening Cancer Related Pain: #Inability to tolerate PO: Patient follows up with [facility] team. Patient is unable to tolerate PO diet (even liquids). Also his epigastric pain is worsening and uncontrolled. Epigastric tenderness +. There was discussion about possible surgical intervention with Oncology team during last clinic visit. Morphine helped with his pain. Will start on Oxycodone 5 mg x Q6 PRN. Oncology consult in am. Waiting on imaging from OSH. IVF while he is unable to tolerate PO. Hypomagnesemia Hypophosphatemia: Replaced. Recheck in am Atrial Fibrillation: Continue Eliquis CKD: Serum creatinine at baseline Venous thromboembolism prophylaxis Patient on apixaban Diet Dietary Orders (From admission, onward) Start Ordered 08/26/251918 Adult diet Diet texture: Full liquid Diet effective now References: IDDSI Diet Texture Guide Question: Diet texture Answer: Full liquid 08/26/251917 Code Status Prior [1] (Not in a hospital admission) [2] apixaban, 5 mg, Oral, BID cefepime, 2 g, Intravenous, Once [START ON 08/27/2025] cefepime, 2 g, Intravenous, q8h ondansetron, 8 mg, Oral, BID pantoprazole, 40 mg, Oral, Daily rosuvastatin, 10 mg, Oral, Daily [3] [4] PRN medications: oxyCODONE, prochlorperazine * Progress Notes - Lam Shelley RN - 08/26/2025 4:58 PM EDT Justin Best Chief Complaint Patient presents with Vomiting Geriatric Screening Geriatric TRST alert for a pt response on the questionnaire. Patient is pending clinical course fortreatment but has been accepted for admission. EASI-0 MNA-12 Geriatric Triage Risk Screening Tool (TRST) Cognitive impairment: No Five or more medications: Yes Difficulty walking/ transferring, or recent falls: No ED use in the last 30 days or hospitalization in previous 90 days: Yes Lives alone and/ or no caregiver: No ED staff concerns: No TRST Assessment Total: 2 Assessment to be deferred to primary team for CM needs. Case management will continue to follow as needed and able to offer additional resources at request. 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 Verbalized understanding. Plan of Care Reviewed With: patient spouse family Goal: Patient-Specific Goal (Individualized) Outcome: Ongoing, Progressing Flowsheets (Taken 08/26/20252246) Patient/Family-Specific Goals (Include Timeframe): Pt will remain free from fall and injury throughout current shift. Individualized Care Needs: Safety Anxieties, Fears or Concerns: None specified Goal: Absence of Hospital-Acquired Illness or Injury Outcome: Ongoing, Progressing Intervention: Identify and Manage Fall Risk Flowsheets (Taken 08/26/20252246) Safety Promotion/Fall Prevention: activity supervised clutter-free environment maintained fall prevention program maintained nonskid shoes/slippers when out of bed room organization consistent safety round/check completed Intervention: Prevent Skin Injury Flowsheets (Taken 08/26/20252246) Body Position: weight shifting Skin Protection: incontinence pads utilized Intervention: Prevent and Manage VTE (Venous Thromboembolism) Risk Flowsheets (Taken 08/26/20252246) VTE Prevention/Management: medication Intervention: Prevent Infection Flowsheets (Taken 08/26/20252246) Infection Prevention: hand hygiene promoted rest/sleep promoted single patient room provided Goal: Optimal Comfort and Wellbeing Outcome: Ongoing, Progressing Intervention: Monitor Pain and Promote Comfort Flowsheets (Taken 08/26/20252246) Pain Management Interventions: pain management plan reviewed with patient/caregiver Intervention: Provide Person-Centered Care Flowsheets (Taken 08/26/20252246) Trust Relationship/Rapport: care explained choices provided emotional support provided empathic listening provided questions answered questions encouraged reassurance provided thoughts/feelings acknowledged Problem: Pain Acute Goal: Optimal Pain Control and Function Outcome: Ongoing, Progressing Intervention: Optimize Psychosocial Wellbeing Flowsheets (Taken 08/26/20252246) Supportive Measures: active listening utilized Diversional Activities: television Spiritual Activities Assistance: affirmation provided Intervention: Develop Pain Management Plan Flowsheets (Taken 08/26/20252246) Pain Management Interventions: pain management plan reviewed with patient/caregiver Intervention: Prevent or Manage Pain Flowsheets (Taken 08/26/20252246) Sensory Stimulation Regulation: auditory stimulation minimized Bowel Elimination Promotion: adequate fluid intake promoted Sleep/Rest Enhancement: awakenings minimized consistent schedule promoted noise level reduced regular sleep/rest pattern promoted relaxation techniques promoted Medication Review/Management: medications reviewed Problem: Nausea and Vomiting Goal: Nausea and Vomiting Relief Outcome: Ongoing, Progressing Intervention: Prevent and Manage Nausea and Vomiting Flowsheets (Taken 08/26/20252246) Fluid/Electrolyte Management: intravenous fluids adjusted electrolyte supplement adjusted Environmental Support: calm environment promoted Problem: Electrolyte Imbalance Goal: Electrolyte Balance Outcome: Ongoing, Progressing Flowsheets (Taken 08/26/20252246) Electrolyte Imbalance: Plan of Care: electrolyte balance Intervention: Monitor and Manage Electrolyte Imbalance Flowsheets (Taken 08/26/20252246) Fluid/Electrolyte Management: intravenous fluids adjusted electrolyte supplement adjusted * ED Provider Notes - Jeison Blake MD - 08/26/2025 12:54 PM EDT Images from the original note were not included. - HPI Chief Complaint Patient presents with Vomiting Pt is 69 yo M with a history of gastroesophageal junction adenocarcinoma, hypertension, and hyperlipidemia, presenting with fever, worsening epigastric pain, and poor oral intake following recent chemotherapy. He was diagnosed with GE junction adenocarcinoma in June 2025 after developing progressive dysphagia. Upper endoscopy at that time revealed a fungating, friable mass in the distal esophagus, and biopsy confirmed invasive moderate to poorly differentiated adenocarcinoma involving the gastroesophageal junction. Pathology was notable for HER2 negativity, PD-L1 CPS <1, CLDN18 positivity, and loss of MLH1 and PMS2 expression, with MLH1 promoter methylation pending. He was evaluated byoncology and started on neoadjuvant FLOT chemotherapy (fluorouracil, leucovorin, oxaliplatin, docetaxel) every 14 days. A cath was placed on 07/29/2025 for chemo treatment. He was admitted from 08/13-08/15 for management of epigastric pain, nausea, vomiting, and diarrhea. During that admission, he was found to have new-onset paroxysmal atrial fibrillation and mild troponin elevation consistent with non-ischemic myocardial injury. Infectious workup was negative, and his symptoms improved with supportive care. He was discharged on eliquis, holter monitor for 14 days, ppi, and as-needed antiemetics, with plans to continue chemotherapy as scheduled. Since discharge, he reports persistent epigastric pain, fatigue, and progressively worsening appetite with minimal oral intake. He also endorses intermittent fevers at home but did not check temperatures. He denies chest pain, shortness of breath, dysuria, or focal neurologic symptoms. He presented to an outside hospital, where he was febrile to 102.3 and found to be neutropenic with a WBC of 1.3, lactate 2.5, and mildly elevated troponin (0.12initial, 2 hr repeat 0.10). He received intravenous cefepime, fluids, morphine, ondansetron, aspirin, and calcium gluconate before being transferred to this facility for ongoing management of neutropenic fever. Patient History Past Medical History[1] Surgical History[2] Family History[3] Social History[4] Allergies: Allergies[5] Physical Exam ED Triage Vitals [08/26/25 1305] Temp Heart Rate Resp BP 37.6 ??C (99.6 ??F) 96 16 107/66 SpO2 Temp src Heart Rate Source Patient Position 94 % -- Monitor -- BP Location FiO2 (%) -- -- Physical Exam Constitutional: Appearance: Normal appearance. HENT: Head: Normocephalic. Nose: Nose normal. Mouth/Throat: Mouth: Mucous membranes are dry. Pharynx: Oropharynx is clear. Cardiovascular: Rate and Rhythm: Tachycardia present. Rhythm irregular. Pulses: Normal pulses. Heart sounds: Normal heart sounds. Pulmonary: Effort: Pulmonary effort is normal. Breath sounds: Normal breath sounds. Abdominal: General: Abdomen is flat. There is no distension. Palpations: Abdomen is soft. Tenderness: There is abdominal tenderness. There is no right CVA tenderness, left CVA tenderness, guarding or rebound. Comments: Epigastric tenderness Skin: General: Skin is warm and dry. Neurological: Mental Status: He is alert and oriented to person, place, and time. Mental status is at baseline. EASI ?? Total Score: 0 Jose Coma Scale Score: 15 Mini Nutritional Screening Score : 12 TRST Assessment Total: 2 ED Course & MDM - Assessment: 69 y.o. male presents to ED with complaint of neutropenic fever, N/V, and decreased PO. It should be noted that the chronic conditions includes gastroesophageal junction adenocarcinoma, hypertension,and hyperlipidemia, which currently is at goal therapy. This complicates the clinical picture because it Comorbidities: may be exacerbating symptoms, increases the amount and complexity of data to bereviewed, complicates the clinical workup, and increases the risk for morbidity Differential Diagnosis: Catheter-related bloodstream infection, Clostridium difficile infection/ colonization flare, neutropenic enterocolitis, aspiration/bacterial pneumonia, urinary tract infection, line-associated sepsis, chemotherapy-induced mucositis/esophagitis, neutropenic sepsis, myocardialinjury secondary to systemic inflammation/dehydration, atrial fibrillation with demand ischemia, chemotherapy-associated gastritis, electrolyte derangements from poor intake and chemotherapy. In order to fully explore the differential diagnosis the following treatments and tests were ordered: ED Medication Administration from 08/26/2025 1048 to 08/26/2025 1809 Date/Time Order Dose Route Action 08/26/2025 1336 EDT lactated Ringer's infusion 500 mL 500 mL Intravenous New Bag 08/26/2025 1500 EDT magnesium sulfate IVPB 2 g 2 g Intravenous New Bag 08/26/2025 1500 EDT prochlorperazine (Compazine) injection 10 mg 10 mg Intravenous Given 08/26/2025 1500 EDT Sodium Phosphate-NaCl IVPB 15 mmol 15 mmol Intravenous Given 08/26/2025 1502 EDT lactated Ringer's infusion 1,000 mL 1,000 mL Intravenous New Bag 08/26/2025 1725 EDT magnesium sulfate IVPB 2 g 0 g Intravenous Stopped 08/26/2025 1734 EDT cefepime (Maxipime) 2 g in sodium chloride 0.9% 100 mL IVPB (vial adapter required) 2 g Intravenous New Bag 08/26/2025 1745 EDT lactated Ringer's infusion 500 mL 0 mL Intravenous Stopped 08/26/2025 1746 EDT lactated Ringer's infusion 1,000 mL 0 mL Intravenous Stopped All Other Orders Ordered Status Ordering Provider 08/26/25 1809 Admit to inpatient Once Acknowledged EVI REEVES 08/26/25 1652 Consult to [facility] Once Specialty: Internal Medicine Provider: (Not yet assigned) Acknowledged JEISON BLAKE 08/26/25 1652 ED to floor bed request Once Completed JEISON BLAKE 08/26/25 1607 Initiate neutropenic isolation Continuous Comments: Added via Instant Order OPA Acknowledged BPA, INSTANT ORDERS 08/26/25 1406 Troponin T, High Sensitivity, 2 Hour, Plasma PROCEDURE ONCE Final result JEISON BLAKE 08/26/25 1417 XR Chest 2 Views Once Final result JEISON BLAKE 08/26/25 1402 Initiate Contact D Isolation Continuous Comments: Added via Instant Order OPA Acknowledged BPA, INSTANT ORDERS 08/26/25 1355 Urinalysis with reflex microscopic AND reflex culture (IF UTI SUSPECTED) STAT Acknowledged JEISON BLAKE 08/26/25 1355 Urinalysis with reflex microscopic (Culture NOT Included) PROCEDURE ONCE Ordered JEISON BLAKE 08/26/25 1355 Urine Oliveira Panel PROCEDURE ONCE Ordered JEISON BLAKE 08/26/25 1355 Blood Culture (Aerobic/Anaerobet Set) STAT In process JEISON BLAKE 08/26/25 1344 Extra Tubes Once Final result DIMITRIOS CHANG 08/26/25 1344 Light Blue Top PROCEDURE ONCE Final result DIMITRIOS CHANG 08/26/25 1344 Gold Top PROCEDURE ONCE Final result DIMITRIOS CHANG 08/26/25 1344 Gold Top PROCEDURE ONCE Final result DIMITRIOS CHANG 08/26/25 1334 Lipase STAT Final result JEISON BLAKE 08/26/25 1333 Troponin T, High Sensitivity, 0 Hour Plasma, Reflex to 2 Hour STAT Final result JEISON BLAKE 08/26/25 1333 EKG now - STAT (adult) Once Preliminary result JEISON BLAKE 08/26/25 1315 STAT Canceled JEISON BLAKE 08/26/25 1315 Lactic acid, venous STAT Final result JEISON BLAKE 08/26/25 1315 C-Reactive protein STAT Final result JEISON BLAKE 08/26/25 1315 Blood gas panel, venous STAT Final result JEISON BLAKE 08/26/25 1315 STAT Canceled JEISON BLAKE 08/26/25 1315 CBC w/diff STAT Final result JEISON BLAKE 08/26/25 1315 Magnesium STAT Final result JEISON BLAKE 08/26/25 1315 Phosphorus STAT Final result JEISON BLAKE 08/26/25 1315 CMP STAT Final result JEISON BLAKE ED Course as of 08/26/25 181FriAug 26, 2025 1358 Lactate: 1.7 [AD] 1413 Creatinine(!): 1.25 [AD] 1413 Sodium(!): 129 [AD] 1413 Chloride(!): 96 [AD] 1413 CO2(!): 21 [AD] 1413 Magnesium(!): 1.7 [AD] 1413 Phosphorus(!): 2.3 [AD] 1413 Troponin T, High Sensitivity, 0 Hour(!): 39 [AD] 1413 Lipase(!): 14 [AD] 1413 CRP, Plasma(!): 318.6 [AD] 1413 pH, Venous: 7.42 [AD] 1413 pCO2, Venous(!): 37 [AD] 1413 pO2, Venous(!): 21 [AD] 1413 SO2, Measured, Venous(!): 31 [AD] 1414 Hematocrit, Whole Blood(!): 32.0 [AD] 1414 Sodium, Whole Blood(!): 129 [AD] 1414 Potassium, Whole Blood(!): 3.5 [AD] 1414 Glucose, Whole Blood(!): 103 [AD] 1424 WBC(!): 1.26 [AD] 1424 Hemoglobin(!): 10.1 Chronic anemia [AD] 1546 Neutrophils Absolute(!!): 0.71 [AD] 1546 Lymphocytes Absolute(!): 0.22 [AD] 1751 Troponin T, High Sensitivity, 2 Hour, Plasma(!) Trop 2 hr 37. Delta 2. [AD] 1752 XR Chest 2 Views No acute focal airspace consolidation [AD] 1752 Urinalysis with reflex microscopic AND reflex culture (IF UTI SUSPECTED) [AD] 175 Blood Culture (Aerobic/Anaerobet Set) [AD] ED Course User Index [AD] Jeison Blake MD Social Determinates of Health Risks (including Economic Stability, Education and level of understanding, Healthcare access and quality and concerning social factors): None identified on this visit Ultimately, this patient was Was admitted (Admission) There were no encounter diagnoses.. Patient believed to require admission for the listed diagnoses. The Internal Medicine service was consulted for admission and was agreeable to admit toAcute Floor (Med/Surg). ED Prescriptions None Disposition Admit Admitting/Attending Physician: EVI REEVES [[id number]] Provider Care Team: ЮЛИЯ 11 [[id number]] Are they the primary team?: Yes [...] was maybe a rash, but isn't sure Jeison Blake MD Resident 08/26/250 Cosigned by Maxi Donaldson MD at 08/27/2025 4:46 PM EDT Associated attestation - Maxi Donaldson MD - 08/27/2025 4:46 PM EDT I saw and evaluated the patient with the resident/fellow. I discussed the case with the resident/fellow and agree with the findings and plan as documented. * ED Triage Notes - Rachel Mendieta RN - 08/26/2025 12:54 PM EDT Pt here from OSH for N/V/fevers. Pt recent diagnosis of esophageal cancer, last chemo Friday. documented in this encounter Plan of Treatment Upcoming Encounters Date Type Department Care Team (Latest Contact Info) Description 10/26/2025 2:45 PM EST Office Visit [facility] [address] [facility]nd [place] [address] Kim Machado MD [address] [place] [address] 10/27/2025 11:00 AM EST Clinical Support [facility] [address] [place] [address] 11/17/2025 7:50 AM EST Clinical Support [facility] [address] [place] [address] 11/17/2025 8:00 AM EST Office Visit [facility] [address] [place] [address] Aristides Reina MD [address] [place] [address] 11/17/2025 2:00 PM EST Office Visit [facility] Nephrology, Bone [facility] Mineral Metabolism [address], [address] [place] [address] 11/21/2025 2:00 PM EST Appointment [facility] [address] [place] [address] 12/01/2025 1:30 PM EST Office Visit [facility] U[facility] [address], [address] [place] [address] Yanely Rock, [address] [place] [address] 12/14/2025 10:00 AM EST Office Visit [facility] [address], [address] [place] [address] Juarez Recinos MD [address] [place] [address] 01/13/2026 12:00 PM EST Office Visit [facility] [address] [place] [address] Eros Mejia MD [address] [place] [address] Scheduled Referrals Name Type Priority Associated Diagnoses Orde r Schedule Discharge Ambulatory referral to NON Physical Therapy Outpatient Referral Routine Adenocarcinoma of gastroesophageal junction Expected: 09/02/2025 (Approximate), Expires: 03/06/2027 Discharge Ambulatory referral to NON Occupational Therapy Outpatient Referral Routine Adenocarcinoma of gastroesophageal junction Expected: 09/02/2025 (Approximate), Expires: 03/06/2027 Discharge Ambulatory referral to Urology Outpatient Referral Routine Urinary retention Expected: 09/17/2025 (Approximate), Expires: 03/14/2027 Ambulatory referral to External PCP Outpatient Referral Routine Urinary retention Gross hematuria 1 Occurrences starting 09/12/2025 until 03/13/2027 documented as of this encounter Procedures Procedure Name Priority Date/Time Associated Diagnosis Comments CBC WITH AUTO DIFFERENTIAL Routine 09/12/2025 4:45 AM EST BASIC METABOLIC PANEL, PLASMA Routine 09/12/2025 4:45 AM EST CBC WITH AUTO DIFFERENTIAL STAT 09/11/2025 10:50 AM EST BASIC METABOLIC PANEL, PLASMA STAT 09/11/2025 10:50 AM EST CBC WITH AUTO DIFFERENTIAL Routine 09/10/2025 3:04 AM EDT BASIC METABOLIC PANEL, PLASMA Routine 09/10/2025 3:04 AM EDT HEMOGLOBIN Routine 09/09/2025 12:09 PM EDT HEMOGLOBIN Routine 09/09/2025 5:49 AM EDT BASIC METABOLIC PANEL, PLASMA Routine 09/09/2025 5:49 AM EDT IONIZED CALCIUM, WHOLE BLOOD Pending Discharge 09/08/2025 11:55 PM EDT POTASSIUM, PLASMA Pending Discharge 09/08/2025 11:55 PM EDT PHOSPHORUS, PLASMA Pending Discharge 09/08/2025 11:55 PM EDT HEMOGLOBIN Routine 09/08/2025 11:54 PM EDT HEMOGLOBIN Pending Discharge 09/08/2025 6:43 PM EDT HEMOGLOBIN Pending Discharge 09/08/2025 11:54 AM EDT TRANSFUSE RED BLOOD CELLS Routine 09/08/2025 9:53 AM EDT TYPE AND SCREEN Pending Discharge 09/08/2025 7:57 AM EDT PREPARE RBC STAT 09/08/2025 7:09 AM EDT CBC WITH AUTO DIFFERENTIAL Pending Discharge 09/08/2025 5:08 AM EDT BASIC METABOLIC PANEL, PLASMA Pending Discharge 09/08/2025 5:08 AM EDT SEDIMENTATION RATE, AUTOMATED Pending Discharge 09/07/2025 11:58 PM EDT HEMOGLOBIN Pending Discharge 09/07/2025 11:58 PM EDT HEMOGLOBIN STAT 09/07/2025 6:56 PM EDT SEND SCAR MESSAGE STAT 09/07/2025 5: 35 PM EDT URINALYSIS WITH REFLEX MICROSCOPIC AND CULTURE Routine 09/07/2025 5:35 PM EDT URINE OLIVEIRA PANEL Pending Discharge 09/07/2025 5:35 PM EDT URINALYSIS MICROSCOPIC FOR UA REFLEX STAT 09/07/2025 5:35 PM EDT URINALYSIS WITH REFLEX MICROSCOPIC Pending Discharge 09/07/2025 5:35 PM EDT URINE CULTURE STAT 09/07/2025 5:35 PM EDT CBC WITH AUTO DIFFERENTIAL Pending Discharge 09/07/2025 4:10 AM EDT C-REACTIVE PROTEIN, PLASMA Pending Discharge 09/07/2025 4:10 AM EDT PHOSPHORUS, PLASMA Add-On 09/07/2025 4: 10 AM EDT MAGNESIUM, PLASMA Add-On 09/07/2025 4:1 0 AM EDT BASIC METABOLIC PANEL, PLASMA Pending Discharge 09/07/2025 4:10 AM EDT CBC WITH AUTO DIFFERENTIAL Routine 09/06/2025 2:35 AM EDT PHOSPHORUS, PLASMA Routine 09/06/2025 2: 35 AM EDT MAGNESIUM, PLASMA Routine 09/06/2025 2:3 5 AM EDT COMPREHENSIVE METABOLIC PANEL, PLASMA Routine 09/06/2025 2:35 AM EDT WOUND OSTOMY EVAL AND TREAT Routine 09/04/2025 3:08 PM EDT MORPHOLOGY Routine 09/04/2025 4:50 AM EDT MANUAL DIFFERENTIAL Routine 09/04/2025 4 :50 AM EDT CBC WITH AUTO DIFFERENTIAL Routine 09/04/2025 4:50 AM EDT PHOSPHORUS, PLASMA Routine 09/04/2025 4: 50 AM EDT MAGNESIUM, PLASMA Routine 09/04/2025 4:5 0 AM EDT BASIC METABOLIC PANEL, PLASMA Routine 09/04/2025 4:50 AM EDT MORPHOLOGY Routine 09/03/2025 4:23 AM EDT MANUAL DIFFERENTIAL Routine 09/03/2025 4 :23 AM EDT PROCALCITONIN, PLASMA Routine 09/03/2025 4:23 AM EDT SEDIMENTATION RATE, AUTOMATED Routine 09/03/2025 4:23 AM EDT CBC WITH AUTO DIFFERENTIAL Routine 09/03/2025 4:23 AM EDT C-REACTIVE PROTEIN, PLASMA Routine 09/03/2025 4:23 AM EDT PHOSPHORUS, PLASMA Routine 09/03/2025 4: 23 AM EDT MAGNESIUM, PLASMA Routine 09/03/2025 4:2 3 AM EDT HEPATIC FUNCTION PANEL Routine 09/03/2025 4:23 AM EDT BASIC METABOLIC PANEL, PLASMA Routine 09/03/2025 4:23 AM EDT MORPHOLOGY Routine 09/02/2025 3:06 AM EDT MANUAL DIFFERENTIAL Routine 09/02/2025 3 :06 AM EDT PROCALCITONIN, PLASMA Routine 09/02/2025 3:06 AM EDT SEDIMENTATION RATE, AUTOMATED Routine 09/02/2025 3:06 AM EDT CBC WITH AUTO DIFFERENTIAL Routine 09/02/2025 3:06 AM EDT C-REACTIVE PROTEIN, PLASMA Routine 09/02/2025 3:06 AM EDT PHOSPHORUS, PLASMA Routine 09/02/2025 3: 06 AM EDT MAGNESIUM, PLASMA Routine 09/02/2025 3:0 6 AM EDT HEPATIC FUNCTION PANEL Routine 09/02/2025 3:06 AM EDT BASIC METABOLIC PANEL, PLASMA Routine 09/02/2025 3:06 AM EDT CORTISOL Routine 09/01/2025 8:57 AM EDT HEMOGLOBIN AND HEMATOCRIT, BLOOD Routine 09/01/2025 4:50 AM EDT MORPHOLOGY Routine 09/01/2025 4:05 AM EDT MANUAL DIFFERENTIAL Routine 09/01/2025 4 :05 AM EDT PROCALCITONIN, PLASMA Routine 09/01/2025 4:05 AM EDT SEDIMENTATION RATE, AUTOMATED Routine 09/01/2025 4:05 AM EDT CBC WITH AUTO DIFFERENTIAL Routine 09/01/2025 4:05 AM EDT C-REACTIVE PROTEIN, PLASMA Routine 09/01/2025 4:05 AM EDT TSH Routine 09/01/2025 4:05 AM EDT PHOSPHORUS, PLASMA Routine 09/01/2025 4: 05 AM EDT MAGNESIUM, PLASMA Routine 09/01/2025 4:0 5 AM EDT HEPATIC FUNCTION PANEL Routine 09/01/2025 4:05 AM EDT BASIC METABOLIC PANEL, PLASMA Routine 09/01/2025 4:05 AM EDT BASIC METABOLIC PANEL, PLASMA Routine 2025 1:16 PM EDT URINALYSIS MICROSCOPIC FOR UA REFLEX Routine 2025 10:38 AM EDT SODIUM, URINE, RANDOM Routine 2025 10:38 AM EDT OSMOLALITY, URINE Routine 2025 10: 38 AM EDT URINALYSIS WITH REFLEX MICROSCOPIC Routine 2025 10:38 AM EDT MORPHOLOGY Routine 2025 4:23 AM EDT MANUAL DIFFERENTIAL Routine 2025 4 :23 AM EDT PROCALCITONIN, PLASMA Routine 2025 4:23 AM EDT SEDIMENTATION RATE, AUTOMATED Routine 2025 4:23 AM EDT CBC WITH AUTO DIFFERENTIAL Routine 2025 4:23 AM EDT C-REACTIVE PROTEIN, PLASMA Routine 2025 4:23 AM EDT PHOSPHORUS, PLASMA Routine 2025 4: 23 AM EDT MAGNESIUM, PLASMA Routine 2025 4:2 3 AM EDT HEPATIC FUNCTION PANEL Routine 2025 4:23 AM EDT BASIC METABOLIC PANEL, PLASMA Routine 2025 4:23 AM EDT US RENAL COMPLETE Routine 08/30/2025 4:0 7 PM EDT URINALYSIS WITH REFLEX MICROSCOPIC AND CULTURE Routine 08/30/2025 3:26 PM EDT URINE OLIVEIRA PANEL Routine 08/30/2025 3:26 PM EDT URINALYSIS MICROSCOPIC FOR UA REFLEX Routine 08/30/2025 3:26 PM EDT URINALYSIS WITH REFLEX MICROSCOPIC Routine 08/30/2025 3:26 PM EDT MORPHOLOGY Routine 08/30/2025 1:03 AM EDT MANUAL DIFFERENTIAL Routine 08/30/2025 1 :03 AM EDT PROCALCITONIN, PLASMA Routine 08/30/2025 1:03 AM EDT SEDIMENTATION RATE, AUTOMATED Routine 08/30/2025 1:03 AM EDT CBC WITH AUTO DIFFERENTIAL Routine 08/30/2025 1:03 AM EDT C-REACTIVE PROTEIN, PLASMA Routine 08/30/2025 1:03 AM EDT PHOSPHORUS, PLASMA Routine 08/30/2025 1: 03 AM EDT MAGNESIUM, PLASMA Routine 08/30/2025 1:0 3 AM EDT HEPATIC FUNCTION PANEL Routine 08/30/2025 1:03 AM EDT BASIC METABOLIC PANEL, PLASMA Routine 08/30/2025 1:03 AM EDT MORPHOLOGY Routine 08/29/2025 3:03 AM EDT MANUAL DIFFERENTIAL Routine 08/29/2025 3 :03 AM EDT PROCALCITONIN, PLASMA Routine 08/29/2025 3:03 AM EDT SEDIMENTATION RATE, AUTOMATED Routine 08/29/2025 3:03 AM EDT CBC WITH AUTO DIFFERENTIAL Routine 08/29/2025 3:03 AM EDT C-REACTIVE PROTEIN, PLASMA Routine 08/29/2025 3:03 AM EDT PHOSPHORUS, PLASMA Routine 08/29/2025 3: 03 AM EDT MAGNESIUM, PLASMA Routine 08/29/2025 3:0 3 AM EDT HEPATIC FUNCTION PANEL Routine 08/29/2025 3:03 AM EDT BASIC METABOLIC PANEL, PLASMA Routine 08/29/2025 3:03 AM EDT PROCALCITONIN, PLASMA Routine 08/28/2025 4:47 AM EDT SEDIMENTATION RATE, AUTOMATED Routine 08/28/2025 4:47 AM EDT CBC WITH AUTO DIFFERENTIAL Routine 08/28/2025 4:47 AM EDT C-REACTIVE PROTEIN, PLASMA Routine 08/28/2025 4:47 AM EDT PHOSPHORUS, PLASMA Routine 08/28/2025 4: 47 AM EDT MAGNESIUM, PLASMA Routine 08/28/2025 4:4 7 AM EDT HEPATIC FUNCTION PANEL Routine 08/28/2025 4:47 AM EDT BASIC METABOLIC PANEL, PLASMA Routine 08/28/2025 4:47 AM EDT URINALYSIS WITH REFLEX MICROSCOPIC AND CULTURE STAT 08/27/2025 7:44 AM EDT URINE OLIVEIRA PANEL STAT 08/27/2025 7:44 AM EDT URINALYSIS MICROSCOPIC FOR UA REFLEX STAT 08/27/2025 7:44 AM EDT URINALYSIS WITH REFLEX MICROSCOPIC STAT 08/27/2025 7:44 AM EDT CBC WITH AUTO DIFFERENTIAL Routine 08/27/2025 12:17 AM EDT PHOSPHORUS, PLASMA Routine 08/27/2025 12 :17 AM EDT MAGNESIUM, PLASMA Routine 08/27/2025 12: 17 AM EDT BASIC METABOLIC PANEL, PLASMA Routine 08/27/2025 12:17 AM EDT COMPREHENSIVE GI PANEL BY PCR Routine 08/26/2025 8:18 PM EDT CLOSTRIDIODES (CLOSTRIDIUM) DIFFICILE,PCR Add-On 08/26/2025 8:18 PM EDT OVA AND PARASITE EXAM, FECAL (SO) Routine 08/26/2025 8:18 PM EDT CLOSTRIDIUM DIFFICILE EIA Routine 08/26/2025 8:18 PM EDT TROPONIN T, HIGH SENSITIVITY, 2 HOUR, PLASMA Timed 08/26/2025 5:11 PM EDT BLOOD CULTURE (AEROBIC/ANAEROBIC SET) STAT 08/26/2025 5:11 PM EDT XR CHEST 2 VIEWS STAT 08/26/2025 4:57 PM EDT ECG ADULT STAT 08/26/2025 1:45 PM EDT EXTRA TUBE GOLD TOP Routine 08/26/2025 1 :35 PM EDT EXTRA TUBE GOLD TOP Routine 08/26/2025 1 :35 PM EDT TROPONIN T, HIGH SENSITIVITY, 0 HOUR, PLASMA, REFLEX TO 2 HOUR STAT 08/26/2025 1:35 PM EDT EXTRA TUBE LIGHT BLUE TOP Routine 08/26/2025 1:35 PM EDT LACTATE, VENOUS STAT 08/26/2025 1:35 PM EDT EXTRA TUBES Routine 08/26/2025 1:35 PM EDT CBC WITH AUTO DIFFERENTIAL STAT 08/26/2025 1:35 PM EDT C-REACTIVE PROTEIN, PLASMA STAT 08/26/2025 1:35 PM EDT PHOSPHORUS, PLASMA STAT 08/26/2025 1: 35 PM EDT MAGNESIUM, PLASMA STAT 08/26/2025 1:3 5 PM EDT LIPASE, PLASMA STAT 08/26/2025 1:35 PM EDT BLOOD GAS PANEL, VENOUS STAT 08/26/2025 1:35 PM EDT COMPREHENSIVE METABOLIC PANEL, PLASMA STAT 08/26/2025 1:35 PM EDT documented in this encounter Results * (ABNORMAL) Basic metabolic panel (09/12/2025 4:45 AM EST) [facility] Glucose, Plasma 86 74 - 99 mg/dL 09/12/2025 5:53 AM EST [facility] BUN, Plasma 7(L) 8 - 23 mg/dL 09/12/2025 5:53 AM EST [facility] Creatinine, Plasma 1.02 0.70 - 1.20 mg/dL 09/12/2025 5:53 AM EST [facility] BUN/Creatinine Ratio 7 09/12/2025 5:53 AM EST [facility] Sodium, Plasma 133(L) 136 - 145 mmol/L 09/12/2025 5:53 AM EST [facility] Potassium, Plasma 3.9 3.6 - 4.9 mmol/L 09/12/2025 5:53 AM EST [facility] Chloride, Plasma 102 97 - 107 mmol/L 09/12/2025 5:53 AM EST [facility] CO2, Plasma 25 22 - 29 mmol/L 09/12/2025 5:53 AM EST [facility] Anion Gap 6 6 - 16 mmol/L 09/12/2025 5:53 AM EST [facility] Total Calcium, Plasma 7.8(L) 8.9 - 10.2 mg/dL 09/12/2025 5:53 AM EST [facility] eGFRcr 78.6 mL/min/1.7 3m*2 09/12/2025 5:53 AM EST [facility] Comment:Reported eGFRcr in m L/min/1.73m2 is based the CKD-EPI 2020 equation that does not use a race coefficient. Blood Blood sample taken from central line / Unknown Venipuncture / Unknown 09/12/2025 4:45 AM EST 09/12/2025 5:23 AM EST us [facility] Bouchra Lucio MD LAB BLOOD ORDERABLES Final Re sult [facility] [address] [place] [address] * (ABNORMAL) CBC and differential (09/12/2025 4:45 AM EST) WBC Count 7.80 3.70 - 10.30 10*3/uL LAB HEMATOLOGY METHOD 09/12/2025 5:36 AM EST [facility] RBC Count 2.62(L) 4.60 - 6.10 10*6/uL LAB HEMATOLOGY METHOD 09/12/2025 5:36 AM EST [facility] HGB 7.8(L) 13.7 - 17.5 g/dL LAB HEMATOLOGY METHOD 09/12/2025 5:36 AM EST [facility] HCT 24.5(L) 40.0 - 51.0 % LAB HEMATOLOGY METHOD 09/12/2025 5:36 AM EST [facility] Platelet Count 437(H) 155 - 369 10*3/uL LAB HEMATOLOGY METHOD 09/12/2025 5:36 AM EST [facility] MCV 94 79 - 98 fL LAB HEMATOLOGY METHOD 09/12/2025 5:36 AM EST [facility] MCH 29.8 26.0 - 32.0 pg LAB HEMATOLOGY METHOD 09/12/2025 5:36 AM EST [facility] MCHC 31.8 30.7 - 35.5 g/dL LAB HEMATOLOGY METHOD 09/12/2025 5:36 AM EST [facility] RDW 14.3 11.5 - 14.5 % LAB HEMATOLOGY METHOD 09/12/2025 5:36 AM [facility] MPV 9.3 8.8 - 12.5 fL LAB HEMATOLOGY METHOD 09/12/2025 5:36 AM [facility] nRBC 0.0 <=0.0 per 100 WBCs LAB HEMATOLOGY METHOD 09/12/2025 5:36 AM [facility] Differential Type Automated LAB HEMATOLOGY METHOD 09/12/2025 5:36 AM [facility] Neutrophils % 63 % LAB HEMATOLOGY METHOD 09/12/2025 5:36 AM [facility] Lymphocytes % 16 % LAB HEMATOLOGY METHOD 09/12/2025 5:36 AM [facility] Monocytes % 15 % LAB HEMATOLOGY METHOD 09/12/2025 5:36 AM [facility] Eosinophils % 4 % LAB HEMATOLOGY METHOD 09/12/2025 5:36 AM [facility] Basophils % 1 % LAB HEMATOLOGY METHOD 09/12/2025 5:36 AM [facility] Immature Granulocytes % 1 % LAB HEMATOLOGY METHOD 09/12/2025 5:36 AM [facility] Neutrophils Absolute 4.97 1.60 - 6.10 10*3/uL LAB HEMATOLOGY METHOD 09/12/2025 5:36 AM [facility] Lymphocytes Absolute 1.21 1.20 - 3.90 10*3/uL LAB HEMATOLOGY METHOD 09/12/2025 5:36 AM [facility] Monocytes Absolute 1.17(H) 0.30 - 0.90 10*3/uL LAB HEMATOLOGY METHOD 09/12/2025 5:36 AM [facility] Eosinophils Absolute 0.31 0.00 - 0.50 10*3/uL LAB HEMATOLOGY METHOD 09/12/2025 5:36 AM [facility] Basophils Absolute 0.10 0.00 - 0.10 10*3/uL LAB HEMATOLOGY METHOD 09/12/2025 5:36 AM [facility] Immature Granulocytes Absolute 0.04 0.00 - 0.06 10*3/uL LAB HEMATOLOGY METHOD 09/12/2025 5:36 AM [facility] Blood Blood sample taken from central line / Unknown Venipuncture / Unknown 09/12/2025 4:45 AM EST 09/12/2025 5:27 AM EST Narrative [facility] - 09/12/2025 5:36 AM EST Therapeutic decision making should be based on absolute values, rather than percentages. [facility] Bouchra Lucio MD LAB BLOOD ORDERABLES Final Re sult [facility] [address] [place] [address] * (ABNORMAL) Basic metabolic panel (09/11/2025 10:50 AM EST) Glucose, Plasma 135(H) 74 - 99 mg/dL 09/11/2025 11:29 AM EST [facility] BUN, Plasma 8 8 - 23 mg/dL 09/11/2025 11:29 AM EST [facility] Creatinine, Plasma 1.09 0.70 - 1.20 mg/dL 09/11/2025 11:29 AM EST [facility] BUN/Creatinine Ratio 7 09/11/2025 11:29 AM EST [facility] Sodium, Plasma 135(L) 136 - 145 mmol/L 09/11/2025 11:29 AM EST [facility] Potassium, Plasma 4.1 3.6 - 4.9 mmol/L 09/11/2025 11:29 AM EST [facility] Chloride, Plasma 101 97 - 107 mmol/L 09/11/2025 11:29 AM EST [facility] CO2, Plasma 24 22 - 29 mmol/L 09/11/2025 11:29 AM EST [facility] Anion Gap 10 6 - 16 mmol/L 09/11/2025 11:29 AM EST [facility] Total Calcium, Plasma 7.7(L) 8.9 - 10.2 mg/dL 09/11/2025 11:29 AM EST [facility] eGFRcr 72.6 mL/min/1.7 3m*2 09/11/2025 11:29 AM EST [facility] Comment:Reported eGFRcr in m L/min/1.73m2 is based the CKD-EPI 2020 equation that does not use a race coefficient. Blood Venous blood specimen / Unknown Venipuncture / Unknown 09/11/2025 10:50 AM EST 09/11/2025 10:59 AM EST us [facility] Bouchra Lucio MD LAB BLOOD ORDERABLES Final Re sult [facility] [address] [place] [address] * (ABNORMAL) CBC and differential (09/11/2025 10:50 AM EST) WBC Count 7.74 3.70 - 10.30 10*3/uL LAB HEMATOLOGY METHOD 09/11/2025 11:07 AM EST [facility] RBC Count 2.71(L) 4.60 - 6.10 10*6/uL LAB HEMATOLOGY METHOD 09/11/2025 11:07 AM EST [facility] HGB 8.0(L) 13.7 - 17.5 g/dL LAB HEMATOLOGY METHOD 09/11/2025 11:07 AM EST [facility] HCT 25.2(L) 40.0 - 51.0 % LAB HEMATOLOGY METHOD 09/11/2025 11:07 AM EST [facility] Platelet Count 445(H) 155 - 369 10*3/uL LAB HEMATOLOGY METHOD 09/11/2025 11:07 AM EST [facility] MCV 93 79 - 98 fL LAB HEMATOLOGY METHOD 09/11/2025 11:07 AM EST [facility] MCH 29.5 26.0 - 32.0 pg LAB HEMATOLOGY METHOD 09/11/2025 11:07 AM EST [facility] MCHC 31.7 30.7 - 35.5 g/dL LAB HEMATOLOGY METHOD 09/11/2025 11:07 AM EST [facility] RDW 14.4 11.5 - 14.5 % LAB HEMATOLOGY METHOD 09/11/2025 11:07 AM EST [facility] MPV 9.3 8.8 - 12.5 fL LAB HEMATOLOGY METHOD 09/11/2025 11:07 AM EST [facility] nRBC 0.0 <=0.0 per 100 WBCs LAB HEMATOLOGY METHOD 09/11/2025 11:07 AM EST [facility] Differential Type Automated LAB HEMATOLOGY METHOD 09/11/2025 11:07 AM EST [facility] Neutrophils % 71 % LAB HEMATOLOGY METHOD 09/11/2025 11:07 AM EST [facility] Lymphocytes % 12 % LAB HEMATOLOGY METHOD 09/11/2025 11:07 AM EST [facility] Monocytes % 12 % LAB HEMATOLOGY METHOD 09/11/2025 11:07 AM EST [facility] Eosinophils % 3 % LAB HEMATOLOGY METHOD 09/11/2025 11:07 AM EST [facility] Basophils % 1 % LAB HEMATOLOGY METHOD 09/11/2025 11:07 AM EST [facility] Immature Granulocytes % 1 % LAB HEMATOLOGY METHOD 09/11/2025 11:07 AM EST [facility] Neutrophils Absolute 5.56 1.60 - 6.10 10*3/uL LAB HEMATOLOGY METHOD 09/11/2025 11:07 AM EST [facility] Lymphocytes Absolute 0.89(L) 1.20 - 3.90 10*3/uL LAB HEMATOLOGY METHOD 09/11/2025 11:07 AM EST [facility] Monocytes Absolute 0.93(H) 0.30 - 0.90 10*3/uL LAB HEMATOLOGY METHOD 09/11/2025 11:07 AM EST [facility] Eosinophils Absolute 0.20 0.00 - 0.50 10*3/uL LAB HEMATOLOGY METHOD 09/11/2025 11:07 AM EST [facility] Basophils Absolute 0.10 0.00 - 0.10 10*3/uL LAB HEMATOLOGY METHOD 09/11/2025 11:07 AM EST [facility] Immature Granulocytes Absolute 0.06 0.00 - 0.06 10*3/uL LAB HEMATOLOGY METHOD 09/11/2025 11:07 AM EST [facility] Blood Venous blood specimen / Unknown Venipuncture / Unknown 09/11/2025 10:50 AM EST 09/11/2025 10:59 AM EST [facility] 09/11/[facility] 11:07 AM EST Therapeutic decision making should be based on absolute values, rather than percentages. [facility] Bouchra Lucio MD LAB BLOOD ORDERABLES Final Re sult [facility] [address] [place] [address] * (ABNORMAL) Basic metabolic panel (09/10/2025 3:04 AM EDT) Glucose, Plasma 88 74 - 99 mg/dL 09/10/2025 3:39 AM EDT [facility] BUN, Plasma 10 8 - 23 mg/dL 09/10/2025 3:39 AM EDT [facility] Creatinine, Plasma 0.97 0.70 - 1.20 mg/dL 09/10/2025 3:39 AM EDT [facility] BUN/Creatinine Ratio 10 09/10/2025 3:39 AM EDT [facility] Sodium, Plasma 135(L) 136 - 145 mmol/L 09/10/2025 3:39 AM EDT [facility] Potassium, Plasma 4.2 3.6 - 4.9 mmol/L 09/10/2025 3:39 AM EDT [facility] Chloride, Plasma 107 97 - 107 mmol/L 09/10/2025 3:39 AM EDT [facility] CO2, Plasma 25 22 - 29 mmol/L 09/10/2025 3:39 AM EDT [facility] Anion Gap 3(L) 6 - 16 mmol/L 09/10/2025 3:39 AM EDT [facility] Total Calcium, Plasma 7.6(L) 8.9 - 10.2 mg/dL 09/10/2025 3:39 AM EDT [facility] eGFRcr 83.5 mL/min/1.7 3m*2 09/10/2025 3:39 AM EDT [facility] Comment:Reported eGFRcr in m L/min/1.73m2 is based the CKD-EPI 2020 equation that does not use a race coefficient. Blood Venous blood specimen / Unknown Venipuncture / Unknown 09/10/2025 3:04 AM EDT 09/10/2025 3:10 AM EDT us [facility] Bouchra Lucio MD LAB BLOOD ORDERABLES Final Re sult [facility] [address] [place] [address] * (ABNORMAL) CBC and differential (09/10/2025 3:04 AM EDT) [facility] WBC Count 7.61 3.70 - 10.30 10*3/uL LAB HEMATOLOGY METHOD 09/10/2025 3:18 AM EDT [facility] RBC Count 2.53(L) 4.60 - 6.10 10*6/uL LAB HEMATOLOGY METHOD 09/10/2025 3:18 AM EDT [facility] HGB 7.5(L) 13.7 - 17.5 g/dL LAB HEMATOLOGY METHOD 09/10/2025 3:18 AM EDT [facility] HCT 23.2(L) 40.0 - 51.0 % LAB HEMATOLOGY METHOD 09/10/2025 3:18 AM EDT [facility] Platelet Count 454(H) 155 - 369 10*3/uL LAB HEMATOLOGY METHOD 09/10/2025 3:18 AM EDT [facility] MCV 92 79 - 98 fL LAB HEMATOLOGY METHOD 09/10/2025 3:18 AM EDT [facility] MCH 29.6 26.0 - 32.0 pg LAB HEMATOLOGY METHOD 09/10/2025 3:18 AM EDT [facility] MCHC 32.3 30.7 - 35.5 g/dL LAB HEMATOLOGY METHOD 09/10/2025 3:18 AM EDT [facility] RDW 14.5 11.5 - 14.5 % LAB HEMATOLOGY METHOD 09/10/2025 3:18 AM EDT [facility] MPV 9.4 8.8 - 12.5 fL LAB HEMATOLOGY METHOD 09/10/2025 3:18 AM EDT [facility] nRBC 0.0 <=0.0 per 100 WBCs LAB HEMATOLOGY METHOD 09/10/2025 3:18 AM EDT [facility] Differential Type Automated LAB HEMATOLOGY METHOD 09/10/2025 3:18 AM EDT [facility] Neutrophils % 65 % LAB HEMATOLOGY METHOD 09/10/2025 3:18 AM EDT [facility] Lymphocytes % 17 % LAB HEMATOLOGY METHOD 09/10/2025 3:18 AM EDT [facility] Monocytes % 13 % LAB HEMATOLOGY METHOD 09/10/2025 3:18 AM EDT [facility] Eosinophils % 3 % LAB HEMATOLOGY METHOD 09/10/2025 3:18 AM EDT [facility] Basophils % 1 % LAB HEMATOLOGY METHOD 09/10/2025 3:18 AM EDT [facility] Immature Granulocytes % 1 % LAB HEMATOLOGY METHOD 09/10/2025 3:18 AM EDT [facility] Neutrophils Absolute 4.96 1.60 - 6.10 10*3/uL LAB HEMATOLOGY METHOD 09/10/2025 3:18 AM EDT [facility] Lymphocytes Absolute 1.32 1.20 - 3.90 10*3/uL LAB HEMATOLOGY METHOD 09/10/2025 3:18 AM EDT [facility] Monocytes Absolute 0.98(H) 0.30 - 0.90 10*3/uL LAB HEMATOLOGY METHOD 09/10/2025 3:18 AM EDT [facility] Eosinophils Absolute 0.21 0.00 - 0.50 10*3/uL LAB HEMATOLOGY METHOD 09/10/2025 3:18 AM EDT [facility] Basophils Absolute 0.07 0.00 - 0.10 10*3/uL LAB HEMATOLOGY METHOD 09/10/2025 3:18 AM EDT [facility] Immature Granulocytes Absolute 0.07(H) 0.00 - 0.06 10*3/uL LAB HEMATOLOGY METHOD 09/10/2025 3:18 AM EDT [facility] Blood Venous blood specimen / Unknown Venipuncture / Unknown 09/10/2025 3:04 AM EDT 09/10/2025 3:10 AM EDT Narrative [facility] - 09/10/2025 3:18 AM EDT Therapeutic decision making should be based on absolute values, rather than percentages. [facility] LAB BLOOD ORDERABLES Final Re sult [facility] [address] [place] [address] * (ABNORMAL) Hemoglobin, Blood (09/09/2025 12:09 PM EDT) HGB 7.9(L) 13.7 - 17.5 g/dL LAB HEMATOLOGY METHOD 09/09/2025 12:33 PM EDT [facility] Blood Venous blood specimen / Unknown Venipuncture / Unknown 09/09/2025 12:09 PM EDT 09/09/2025 12:24 PM EDT Joyce Lucio MD LAB BLOOD ORDERABLES Final Re sult Performing Organization Address [facility]/ZIP Co de Phone Number [facility] [address] [place] [address] * (ABNORMAL) Hemoglobin, Blood (09/09/2025 5:49 AM EDT) HGB 8.0(L) 13.7 - 17.5 g/dL LAB HEMATOLOGY METHOD 09/09/2025 6:42 AM EDT [facility] Blood Venous blood specimen / Unknown Venipuncture / Unknown 09/09/2025 5:49 AM EDT 09/09/2025 5:58 AM EDT Joyce Lucio MD LAB BLOOD ORDERABLES Final Re sult Performing Organization Address City/[facility]/ZIP Co de Phone Number [facility] [address] [place] [address] * (ABNORMAL) Basic metabolic panel (09/09/2025 5:49 AM EDT) [facility] Glucose, Plasma 86 74 - 99 mg/dL 09/09/2025 6:27 AM EDT [facility] BUN, Plasma 9 8 - 23 mg/dL 09/09/2025 6:27 AM EDT [facility] Creatinine, Plasma 0.97 0.70 - 1.20 mg/dL 09/09/2025 6:27 AM EDT [facility] BUN/Creatinine Ratio 9 09/09/2025 6:27 AM EDT [facility] Sodium, Plasma 139 136 - 145 mmol/L 09/09/2025 6:27 AM EDT [facility] Potassium, Plasma 4.1 3.6 - 4.9 mmol/L 09/09/2025 6:27 AM EDT [facility] Chloride, Plasma 107 97 - 107 mmol/L 09/09/2025 6:27 AM EDT [facility] [facility] CO2, Plasma 24 22 - 29 mmol/L 09/09/2025 6:27 AM EDT [facility] Anion Gap 8 6 - 16 mmol/L 09/09/2025 6:27 AM EDT [facility] Total Calcium, Plasma 7.5(L) 8.9 - 10.2 mg/dL 09/09/2025 6:27 AM EDT [facility] eGFRcr 83.5 mL/min/1.7 3m*2 09/09/2025 6:27 AM EDT [facility] Comment:Reported eGFRcr in m L/min/1.73m2 is based the CKD-EPI 2020 equation that does not use a race coefficient. Blood Venous blood specimen / Unknown Venipuncture / Unknown 09/09/2025 5:49 AM EDT 09/09/2025 5:57 AM EDT Joyce Lucio MD LAB BLOOD ORDERABLES Final Re sult Performing Organization Address City/[facility]/ZIP Co de Phone Number [facility] [address] [place] [address] * (ABNORMAL) Ionized calcium repeated at next scheduled lab check after replacement completed (09/08/2025 11:55 PM EDT) Ionized Calcium, Whole Blood 4.4(L) 4.6 - 5.1 mg/dL LAB HEMATOLOGY METHOD 09/09/2025 12:02 AM EDT [facility] Blood Venous blood specimen / Unknown Venipuncture / Unknown 09/08/2025 11:55 PM EDT 09/09/2025 12:01 AM EDT us Joyce Lucio MD LAB BLOOD ORDERABLES Final Re sult [facility] [address] [place] [address] * (ABNORMAL) Phosphorus level repeated at next scheduled lab check after replacement completed (09/08/2025 11:55 PM EDT) Phosphorus, Plasma 1.8(L) 2.5 - 4.5 mg/dL 09/09/2025 12:25 AM EDT [facility] Blood Venous blood specimen / Unknown Venipuncture / Unknown 09/08/2025 11:55 PM EDT 09/09/2025 12:00 AM EDT Joyce Lucio MD LAB BLOOD ORDERABLES Final Re sult Performing Organization Address [facility]/ZIP Co de Phone Number [facility] [address] [place] [address] * Potassium level repeated at next scheduled lab check after replacement completed (09/08/2025 11:55 PM EDT) Potassium, Plasma 4.1 3.6 - 4.9 mmol/L 09/09/2025 12:25 AM EDT [facility] Blood Venous blood specimen / Unknown Venipuncture / Unknown 09/08/2025 11:55 PM EDT 09/09/2025 12:00 AM EDT Joyce Lucio MD LAB BLOOD ORDERABLES Final Re sult Performing Organization Address [facility]/ZIP Co de Phone Number [facility] [address] [place] [address] * (ABNORMAL) Hemoglobin, Blood (09/08/2025 11:54 PM EDT) HGB 7.5(L) 13.7 - 17.5 g/dL LAB HEMATOLOGY METHOD 09/09/2025 12:07 AM EDT [facility] Blood Venous blood specimen / Unknown Venipuncture / Unknown 09/08/2025 11:54 PM EDT 09/09/2025 12:00 AM EDT Joyce Lucio MD LAB BLOOD ORDERABLES Final Re sult Performing Organization Address City/[facility]/ZIP Co de Phone Number [facility] [address] [place] [address] * (ABNORMAL) Hemoglobin, Blood (09/08/2025 6:43 PM EDT) HGB 8.0(L) 13.7 - 17.5 g/dL LAB HEMATOLOGY METHOD 09/08/2025 7:09 PM EDT [facility] Blood Blood sample taken from central line / Unknown Venipuncture / Unknown 09/08/2025 6:43 PM EDT 09/08/2025 6:59 PM EDT Joyce Lucio MD LAB BLOOD ORDERABLES Final Re sult Performing Organization Address [facility] de Phone Number [facility] [address] [place] [address] * Transfuse RBC (09/08/2025 12:03 PM EDT) Joyce Lucio MD BLOOD TRANSFUSION ORDERABLES Final Result * Transfuse RBC: 1 Units (09/08/2025 12:03 PM EDT) Joyce Lucio MD BLOOD TRANSFUSION ORDERABLES Final Result * (ABNORMAL) Hemoglobin, Blood (09/08/2025 11:54 AM EDT) HGB 7.5(L) 13.7 - 17.5 g/dL LAB HEMATOLOGY METHOD 09/08/2025 12:37 PM EDT [facility] Blood Blood sample taken from central line / Unknown Venipuncture / Unknown 09/08/2025 11:54 AM EDT 09/08/2025 12:29 PM EDT Joyce Lucio MD LAB BLOOD ORDERABLES Final Re sult Performing Organization Address [facility] de Phone Number [facility] [address] [place] [address] * Type and screen (09/08/2025 7:57 AM EDT) ABO/Rh A Negative 09/08/2025 8:22 AM EDT [facility] Antibody Screen Negative 09/08/2025 8:22 AM EDT [facility] Specimen Expiration 09/12/2025 00:59 09/08/2025 8:22 AM EDT [facility] Blood Venous blood specimen / Unknown Venipuncture / Unknown 09/08/2025 7:57 AM EDT 09/08/2025 8:22 AM EDT Joyce Lucio MD LAB BLOOD BANK TEST ORDERABLE S Final Result Performing Organization Address [facility] Co de Phone Number BLO[facility] BANK [address] [place] [address], * Prepare Leukocyte Reduced RBC: 1 Units (09/08/2025 7:09 AM EDT) Product Code [id number] BLOO D BANK Dispense Status Transfused BLOOD BANK Blood Expiration Date [id number] BLOOD BANK Unit Number [id number] CH B LOOD BANK Product Blood Type 0600 BLOOD BANK Blood Type A- BLOOD BANK Crossmatch Compatible BLOOD BANK Other Joyce Lucio MD BLOOD BANK PRODUCT ORDERABLES Final Result Performing Organization Address [facility] Co de Phone Number [facility] [address] [place] [address], [place] * (ABNORMAL) Basic metabolic panel (09/08/2025 5:08 AM EDT) Glucose, Plasma 93 74 - 99 mg/dL 09/08/2025 5:48 AM EDT [facility] BUN, Plasma 10 8 - 23 mg/dL 09/08/2025 5:48 AM EDT [facility] Creatinine, Plasma 0.97 0.70 - 1.20 mg/dL 09/08/2025 5:48 AM EDT [facility] BUN/Creatinine Ratio 10 09/08/2025 5:48 AM EDT [facility] Sodium, Plasma 137 136 - 145 mmol/L 09/08/2025 5:48 AM EDT [facility] Potassium, Plasma 3.3(L) 3.6 - 4.9 mmol/L 09/08/2025 5:48 AM EDT [facility] Chloride, Plasma 105 97 - 107 mmol/L 09/08/2025 5:48 AM EDT [facility] CO2, Plasma 26 22 - 29 mmol/L 09/08/2025 5:48 AM EDT [facility] Anion Gap 6 6 - 16 mmol/L 09/08/2025 5:48 AM EDT [facility] Total Calcium, Plasma 7.4(L) 8.9 - 10.2 mg/dL 09/08/2025 5:48 AM EDT [facility] eGFRcr 83.5 mL/min/1.7 3m*2 09/08/2025 5:48 AM EDT [facility] Comment:Reported eGFRcr in m L/min/1.73m2 is based the CKD-EPI 2020 equation that does not use a race coefficient. Blood Venous blood specimen / Unknown Venipuncture / Unknown 09/08/2025 5:08 AM EDT 09/08/2025 5:18 AM EDT us Fnu Bouchra Lucio MD LAB BLOOD ORDERABLES Final Re sult [facility] [address] [place] [address] * (ABNORMAL) CBC and differential (09/08/2025 5:08 AM EDT) WBC Count 9.88 3.70 - 10.30 10*3/uL LAB HEMATOLOGY METHOD 09/08/2025 5:33 AM EDT [facility] RBC Count 2.24(L) 4.60 - 6.10 10*6/uL LAB HEMATOLOGY METHOD 09/08/2025 5:33 AM EDT [facility] HGB 6.5(L) 13.7 - 17.5 g/dL LAB HEMATOLOGY METHOD 09/08/2025 5:33 AM EDT [facility] HCT 20.4(L) 40.0 - 51.0 % LAB HEMATOLOGY METHOD 09/08/2025 5:33 AM EDT [facility] Platelet Count 537(H) 155 - 369 10*3/uL LAB HEMATOLOGY METHOD 09/08/2025 5:33 AM EDT [facility] MCV 91 79 - 98 fL LAB HEMATOLOGY METHOD 09/08/2025 5:33 AM EDT [facility] MCH 29.0 26.0 - 32.0 pg LAB HEMATOLOGY METHOD 09/08/2025 5:33 AM EDT [facility] MCHC 31.9 30.7 - 35.5 g/dL LAB HEMATOLOGY METHOD 09/08/2025 5:33 AM EDT [facility] RDW 14.0 11.5 - 14.5 % LAB HEMATOLOGY METHOD 09/08/2025 5:33 AM EDT [facility] MPV 9.6 8.8 - 12.5 fL LAB HEMATOLOGY METHOD 09/08/2025 5:33 AM EDT [facility] nRBC 0.0 <=0.0 per 100 WBCs LAB HEMATOLOGY METHOD 09/08/2025 5:33 AM EDT [facility] Differential Type Automated LAB HEMATOLOGY METHOD 09/08/2025 5:33 AM EDT [facility] Neutrophils % 78 % LAB HEMATOLOGY METHOD 09/08/2025 5:33 AM EDT [facility] Lymphocytes % 10 % LAB HEMATOLOGY METHOD 09/08/2025 5:33 AM EDT [facility] Monocytes % 9 % LAB HEMATOLOGY METHOD 09/08/2025 5:33 AM EDT [facility] Eosinophils % 1 % LAB HEMATOLOGY METHOD 09/08/2025 5:33 AM EDT [facility] Basophils % 1 % LAB HEMATOLOGY METHOD 09/08/2025 5:33 AM EDT [facility] Immature Granulocytes % 1 % LAB HEMATOLOGY METHOD 09/08/2025 5:33 AM EDT [facility] Neutrophils Absolute 7.77(H) 1.60 - 6.10 10*3/uL LAB HEMATOLOGY METHOD 09/08/2025 5:33 AM EDT [facility] Lymphocytes Absolute 0.95(L) 1.20 - 3.90 10*3/uL LAB HEMATOLOGY METHOD 09/08/2025 5:33 AM EDT [facility] Monocytes Absolute 0.92(H) 0.30 - 0.90 10*3/uL LAB HEMATOLOGY METHOD 09/08/2025 5:33 AM EDT [facility] Eosinophils Absolute 0.08 0.00 - 0.50 10*3/uL LAB HEMATOLOGY METHOD 09/08/2025 5:33 AM EDT [facility] Basophils Absolute 0.07 0.00 - 0.10 10*3/uL LAB HEMATOLOGY METHOD 09/08/2025 5:33 AM EDT [facility] Immature Granulocytes Absolute 0.09(H) 0.00 - 0.06 10*3/uL LAB HEMATOLOGY METHOD 09/08/2025 5:33 AM EDT [facility] Blood Venous blood specimen / Unknown Venipuncture / Unknown 09/08/2025 5:08 AM EDT 09/08/2025 5:19 AM EDT Narrative [facility] - 09/08/2025 5:33 AM EDT Therapeutic decision making should be based on absolute values, rather than percentages. Joyce Lucio MD LAB BLOOD ORDERABLES Final Re sult Performing Organization Address [facility] Co de Phone Number [facility] [address] [place] [address] * (ABNORMAL) Hemoglobin, Blood (09/07/2025 11:58 PM EDT) HGB 6.6(L) 13.7 - 17.5 g/dL LAB HEMATOLOGY METHOD 09/08/2025 12:11 AM EDT [facility] Blood Venous blood specimen / Unknown Venipuncture / Unknown 09/07/2025 11:58 PM EDT 09/08/2025 12:04 AM EDT Joyce Lucio MD LAB BLOOD ORDERABLES Final Re sult Performing Organization Address [facility] Co de Phone Number [facility] [address] [place] [address] * (ABNORMAL) Sedimentation Rate, Automated (09/07/2025 11:58 PM EDT) Sedimentation Rate 29(H) <20 mm/hr 2024 1:20 AM EDT [facility] Blood Venous blood specimen / Unknown Venipuncture / Unknown 09/07/2025 11:58 PM EDT 09/08/2025 12:04 AM EDT Joyce Lucio MD LAB BLOOD ORDERABLES Final Re sult Performing Organization Address City/[facility]/ZIP Co de Phone Number [facility] [address] [place] [address] * (ABNORMAL) Hemoglobin, Blood (09/07/2025 6:56 PM EDT) HGB 7.0(L) 13.7 - 17.5 g/dL LAB HEMATOLOGY METHOD 09/07/2025 7:23 PM EDT [facility] Blood Venous blood specimen / Unknown Venipuncture / Unknown 09/07/2025 6:56 PM EDT 09/07/2025 7:06 PM EDT us Joyce Lucio MD LAB BLOOD ORDERABLES Final Re sult Performing Organization Address [facility] [place] [place] [address] * SEND SCAR MESSAGE (09/07/2025 5:35 PM EDT) Urine Urine specimen obtained by clean catch procedure / Unknown Non-blood Collection / Unknown 09/07/2025 5:35 PM EDT 09/07/2025 5:58 PM EDT us Joyce Lucio MD LAB URINE ORDERABLES Final Re sult Performing Organization Address [facility]/[place] [address] * Urine Culture (09/07/2025 5:35 PM EDT) Culture No growth at day 1 09/09/2025 8:39 AM EDT [facility] Urine Urine specimen obtained by clean catch procedure / Unknown Non-blood Collection / Unknown 09/07/2025 5:35 PM EDT 09/07/2025 5:58 PM EDT Joyce Lucio MD LAB MICROBIOLOGY - GENERAL OR DERABLES Final Result Performing Organization Address [facility] Co de Phone Number [facility] [address] [place] [address] * Urinalysis Microscopic Examination (09/07/2025 5:35 PM EDT) Urine Urine specimen obtained by clean catch procedure / Unknown Non-blood Collection / Unknown 09/07/2025 5:35 PM EDT 09/07/2025 5:58 PM EDT Joyce Lucio MD LAB URINE ORDERABLES Final Re sult Performing Organization Address [facility]/ZIP Co de Phone Number [facility] [address] [place] [address] * Urine Oliveira Panel (09/07/2025 5:35 PM EDT) Extra Sent for Culture 09/07/2025 7:02 PM EDT [facility] Urine Urine specimen obtained by clean catch procedure / Unknown Non-blood Collection / Unknown 09/07/2025 5:35 PM EDT 09/07/2025 5:58 PM EDT Joyce Lucio MD LAB URINE ORDERABLES Final Re sult Performing Organization Address [facility] Co de Phone Number [facility] [address] [place] [address] * (ABNORMAL) Urinalysis with reflex microscopic (Culture NOT Included) (09/07/2025 5:35 PM EDT) Color, Urine Red LAB URINALYSIS - AUTOMATED METHOD 09/07/2025 6:24 PM EDT [facility] Clarity, Urine Cloudy LAB URINALYSIS - AUTOMATED METHOD 09/07/2025 6:24 PM EDT [facility] Spec [place], Urine 1.015 1.005 - 1.030 LAB URINALYSIS - AUTOMATED METHOD 09/07/2025 6:24 PM EDT [facility] pH, Urine 8.0 5.0 - 8.0 LAB URINALYSIS - AUTOMATED METHOD 09/07/2025 6:24 PM EDT [facility] Protein, Urine >=300(A) Negative mg/dL LAB URINALYSIS - AUTOMATED METHOD 09/07/2025 6:24 PM EDT [facility] Glucose, Urine Negative Negative mg/dL LAB URINALYSIS - AUTOMATED METHOD 09/07/2025 6:24 PM EDT [facility] Ketones, Urine 15(A) Negative mg/dL LAB URINALYSIS - AUTOMATED METHOD 09/07/2025 6:24 PM EDT [facility] Blood, Urine Large(A) Negative LAB URINALYSIS - AUTOMATED METHOD 09/07/2025 6:24 PM EDT [facility] Bilirubin, Urine Negative Negative LAB URINALYSIS - AUTOMATED METHOD 09/07/2025 6:24 PM EDT [facility] Urobilinogen, Urine 2.0(A) 0.2 to 1.0 mg/dL LAB URINALYSIS - AUTOMATED METHOD 09/07/2025 6:24 PM EDT [facility] Leukocytes, Urine Moderate(A) Negative LAB URINALYSIS - AUTOMATED METHOD 09/07/2025 6:24 PM EDT [facility] Nitrite, Urine Positive(A) Negative LAB URINALYSIS - AUTOMATED METHOD 09/07/2025 6:24 PM EDT [facility] RBC, Urine >50(A) 0 to 3 /HPF 09/07/2025 6:24 PM EDT [facility] Comment:This result was prev iously suppressed from the chart. WBC, Urine Unable to estimate due to obscuring RBC's (UNERBC) 0 to 5 /HPF 09/07/2025 6:24 PM EDT [facility] Comment:This result was prev iously suppressed from the chart. Squamous Epithelial Cells Unable to estimate due to obscuring RBC's (UNERBC) 0 to 5 /HPF 09/07/2025 6:24 PM EDT [facility] Comment:This result was prev iously suppressed from the chart. Hyaline Casts Unable to estimate due to obscuring RBC's (UNERBC) 0 to 5 /LPF 09/07/2025 6:24 PM EDT [facility] Comment:This result was prev iously suppressed from the chart. Bacteria, Urine Unable to estimate due to obscuring RBC's (UNERBC) Negative 09/07/2025 6:24 PM EDT [facility] Comment:This result was prev iously suppressed from the chart. Urine Urine specimen obtained by clean catch procedure / Unknown Non-blood Collection / Unknown 09/07/2025 5:35 PM EDT 09/07/2025 5:58 PM EDT Narrative [facility] - 09/07/2025 6:24 PM EDT Urinalysis dipstick results may be inaccurate due to specimen color or an interfering substance in the specimen. Performed by manual method Joyce Lucio MD LAB URINE ORDERABLES Final Re sult Performing Organization Address [facility] de Phone Number [facility] [address] [place] [address] * (ABNORMAL) C-reactive protein (09/07/2025 4:10 AM EDT) CRP, Plasma 23.8(H) <=8.0 mg/L 09/07/2025 2:22 PM EDT [facility] Blood Venous blood specimen / Unknown Venipuncture / Unknown 09/07/2025 4:10 AM EDT 09/07/2025 4:18 AM EDT Narrative [facility] - 09/07/2025 2:22 PM EDT This CRP test is appropriate for assessment of infection, systemic inflammation and/or tissue injury. To assess cardiovascular disease risk order high sensitivity CRP (CRPH). Joyce Lucio MD LAB BLOOD ORDERABLES Final Re sult Performing Organization Address [facility] de Phone Number [facility] [address] [place] [address] * (ABNORMAL) Phosphorus (09/07/2025 4:10 AM EDT) Phosphorus, Plasma 2.1(L) 2.5 - 4.5 mg/dL 09/07/2025 8:08 AM EDT [facility] Blood Venous blood specimen / Unknown Venipuncture / Unknown 09/07/2025 4:10 AM EDT 09/07/2025 4:18 AM EDT Joyce Lucio MD LAB BLOOD ORDERABLES Final Re sult Performing Organization Address [facility] Co de Phone Number [facility] [address] [place] [address] * (ABNORMAL) Magnesium (09/07/2025 4:10 AM EDT) Magnesium, Plasma 1.4(L) 1.9 - 2.4 mg/dL 09/07/2025 8:08 AM EDT [facility] Blood Venous blood specimen / Unknown Venipuncture / Unknown 09/07/2025 4:10 AM EDT 09/07/2025 4:18 AM EDT [facility] Bouchra Lucio MD LAB BLOOD ORDERABLES Final Re sult [facility] [address] [place] [address] * (ABNORMAL) Basic metabolic panel (09/07/2025 4:10 AM EDT) Glucose, Plasma 93 74 - 99 mg/dL 09/07/2025 4:47 AM EDT [facility] BUN, Plasma 11 8 - 23 mg/dL 09/07/2025 4:47 AM EDT [facility] Creatinine, Plasma 1.05 0.70 - 1.20 mg/dL 09/07/2025 4:47 AM EDT [facility] BUN/Creatinine Ratio 09/07/2025 4:47 AM EDT [facility] Sodium, Plasma 136 136 - 145 mmol/L 09/07/2025 4:47 AM EDT [facility] Potassium, Plasma 3.5(L) 3.6 - 4.9 mmol/L 09/07/2025 4:47 AM EDT [facility] Chloride, Plasma 105 97 - 107 mmol/L 09/07/2025 4:47 AM EDT [facility] CO2, Plasma 26 22 - 29 mmol/L 09/07/2025 4:47 AM EDT [facility] Anion Gap 5(L) 6 - 16 mmol/L 09/07/2025 4:47 AM EDT [facility] Total Calcium, Plasma 7.3(L) 8.9 - 10.2 mg/dL 09/07/2025 4:47 AM EDT [facility] eGFRcr 75.9 mL/min/1.7 3m*2 09/07/2025 4:47 AM EDT [facility] Comment:Reported eGFRcr in m L/min/1.73m2 is based the CKD-EPI 2020 equation that does not use a race coefficient. Blood Venous blood specimen / Unknown Venipuncture / Unknown 09/07/2025 4:10 AM EDT 09/07/2025 4:18 AM EDT Fnu Bouchra Lucio MD LAB BLOOD ORDERABLES Final Re sult [facility] [address] [place] [address] * (ABNORMAL) CBC and differential (09/07/2025 4:10 AM EDT) WBC Count 10.37(H) 3.70 - 10.30 10*3/uL LAB HEMATOLOGY METHOD 09/07/2025 4:27 AM EDT [facility] RBC Count 2.37(L) 4.60 - 6.10 10*6/uL LAB HEMATOLOGY METHOD 09/07/2025 4:27 AM EDT [facility] HGB 7.0(L) 13.7 - 17.5 g/dL LAB HEMATOLOGY METHOD 09/07/2025 4:27 AM EDT [facility] HCT 21.3(L) 40.0 - 51.0 % LAB HEMATOLOGY METHOD 09/07/2025 4:27 AM EDT [facility] Platelet Count 582(H) 155 - 369 10*3/uL LAB HEMATOLOGY METHOD 09/07/2025 4:27 AM EDT [facility] MCV 90 79 - 98 fL LAB HEMATOLOGY METHOD 09/07/2025 4:27 AM EDT [facility] MCH 29.5 26.0 - 32.0 pg LAB HEMATOLOGY METHOD 09/07/2025 4:27 AM EDT [facility] MCHC 32.9 30.7 - 35.5 g/dL LAB HEMATOLOGY METHOD 09/07/2025 4:27 AM EDT [facility] RDW 14.1 11.5 - 14.5 % LAB HEMATOLOGY METHOD 09/07/2025 4:27 AM EDT [facility] MPV 9.5 8.8 - 12.5 fL LAB HEMATOLOGY METHOD 09/07/2025 4:27 AM EDT [facility] nRBC 0.0 <=0.0 per 100 WBCs LAB HEMATOLOGY METHOD 09/07/2025 4:27 AM EDT [facility] Differential Type Automated LAB HEMATOLOGY METHOD 09/07/2025 4:27 AM EDT [facility] Neutrophils % 81 % LAB HEMATOLOGY METHOD 09/07/2025 4:27 AM EDT [facility] Lymphocytes % 10 % LAB HEMATOLOGY METHOD 09/07/2025 4:27 AM EDT [facility] Monocytes % 7 % LAB HEMATOLOGY METHOD 09/07/2025 4:27 AM EDT [facility] Eosinophils % 0 % LAB HEMATOLOGY METHOD 09/07/2025 4:27 AM EDT [facility] Basophils % 1 % LAB HEMATOLOGY METHOD 09/07/2025 4:27 AM EDT [facility] Immature Granulocytes % 1 % LAB HEMATOLOGY METHOD 09/07/2025 4:27 AM EDT [facility] Neutrophils Absolute 8.31(H) 1.60 - 6.10 10*3/uL LAB HEMATOLOGY METHOD 09/07/2025 4:27 AM EDT [facility] Lymphocytes Absolute 1.08(L) 1.20 - 3.90 10*3/uL LAB HEMATOLOGY METHOD 09/07/2025 4:27 AM EDT [facility] Monocytes Absolute 0.77 0.30 - 0.90 10*3/uL LAB HEMATOLOGY METHOD 09/07/2025 4:27 AM EDT [facility] Eosinophils Absolute 0.04 0.00 - 0.50 10*3/uL LAB HEMATOLOGY METHOD 09/07/2025 4:27 AM EDT [facility] Basophils Absolute 0.05 0.00 - 0.10 10*3/uL LAB HEMATOLOGY METHOD 09/07/2025 4:27 AM EDT [facility] Immature Granulocytes Absolute 0.12(H) 0.00 - 0.06 10*3/uL LAB HEMATOLOGY METHOD 09/07/2025 4:27 AM EDT [facility] Blood Venous blood specimen / Unknown Venipuncture / Unknown 09/07/2025 4:10 AM EDT 09/07/2025 4:18 AM EDT Narrative [facility] - 09/07/2025 4:27 AM EDT Therapeutic decision making should be based on absolute values, rather than percentages. Joyce Lucio MD LAB BLOOD ORDERABLES Final Re sult Performing Organization Address [facility] Co de Phone Number [facility] [address] [place] [address] * (ABNORMAL) Phosphorus, Plasma (09/06/2025 2:35 AM EDT) Phosphorus, Plasma 2.4(L) 2.5 - 4.5 mg/dL 09/06/2025 3:11 AM EDT [facility] Blood Venous blood specimen / Unknown Venipuncture / Unknown 09/06/2025 2:35 AM EDT 09/06/2025 2:44 AM EDT Sheyla Malagon MD LAB BLOOD ORDERABLES Final Resu lt Performing Organization Address [facility] Co de Phone Number [facility] [address] [place] [address] * (ABNORMAL) Magnesium, Plasma (09/06/2025 2:35 AM EDT) Magnesium, Plasma 1.6(L) 1.9 - 2.4 mg/dL 09/06/2025 3:11 AM EDT [facility] Blood Venous blood specimen / Unknown Venipuncture / Unknown 09/06/2025 2:35 AM EDT 09/06/2025 2:44 AM EDT Sheyla Malagon MD LAB BLOOD ORDERABLES Final Resu lt Performing Organization Address [facility] Co de Phone Number [facility] [address] [place] [address] * (ABNORMAL) CBC and Differential (09/06/2025 2:35 AM EDT) WBC Count 10.31(H) 3.70 - 10.30 10*3/uL LAB HEMATOLOGY METHOD 09/06/2025 2:51 AM EDT [facility] RBC Count 2.79(L) 4.60 - 6.10 10*6/uL LAB HEMATOLOGY METHOD 09/06/2025 2:51 AM EDT [facility] HGB 8.1(L) 13.7 - 17.5 g/dL LAB HEMATOLOGY METHOD 09/06/2025 2:51 AM EDT [facility] HCT 25.1(L) 40.0 - 51.0 % LAB HEMATOLOGY METHOD 09/06/2025 2:51 AM EDT [facility] Platelet Count 661(H) 155 - 369 10*3/uL LAB HEMATOLOGY METHOD 09/06/2025 2:51 AM EDT [facility] MCV 90 79 - 98 fL LAB HEMATOLOGY METHOD 09/06/2025 2:51 AM EDT [facility] MCH 29.0 26.0 - 32.0 pg LAB HEMATOLOGY METHOD 09/06/2025 2:51 AM EDT [facility] MCHC 32.3 30.7 - 35.5 g/dL LAB HEMATOLOGY METHOD 09/06/2025 2:51 AM EDT [facility] RDW 14.0 11.5 - 14.5 % LAB HEMATOLOGY METHOD 09/06/2025 2:51 AM EDT [facility] MPV 9.5 8.8 - 12.5 fL LAB HEMATOLOGY METHOD 09/06/2025 2:51 AM EDT [facility] nRBC 0.2(H) <=0.0 per 100 WBCs LAB HEMATOLOGY METHOD 09/06/2025 2:51 AM EDT [facility] Differential Type Automated LAB HEMATOLOGY METHOD 09/06/2025 2:51 AM EDT [facility] Neutrophils % 75 % LAB HEMATOLOGY METHOD 09/06/2025 2:51 AM EDT [facility] Lymphocytes % 15 % LAB HEMATOLOGY METHOD 09/06/2025 2:51 AM EDT [facility] Monocytes % 7 % LAB HEMATOLOGY METHOD 09/06/2025 2:51 AM EDT [facility] Eosinophils % 0 % LAB HEMATOLOGY METHOD 09/06/2025 2:51 AM EDT [facility] Basophils % 1 % LAB HEMATOLOGY METHOD 09/06/2025 2:51 AM EDT [facility] Immature Granulocytes % 2 % LAB HEMATOLOGY METHOD 09/06/2025 2:51 AM EDT [facility] Neutrophils Absolute 7.70(H) 1.60 - 6.10 10*3/uL LAB HEMATOLOGY METHOD 09/06/2025 2:51 AM EDT [facility] Lymphocytes Absolute 1.56 1.20 - 3.90 10*3/uL LAB HEMATOLOGY METHOD 09/06/2025 2:51 AM EDT [facility] Monocytes Absolute 0.72 0.30 - 0.90 10*3/uL LAB HEMATOLOGY METHOD 09/06/2025 2:51 AM EDT [facility] Eosinophils Absolute 0.03 0.00 - 0.50 10*3/uL LAB HEMATOLOGY METHOD 09/06/2025 2:51 AM EDT [facility] Basophils Absolute 0.07 0.00 - 0.10 10*3/uL LAB HEMATOLOGY METHOD 09/06/2025 2:51 AM EDT [facility] Immature Granulocytes Absolute 0.23(H) 0.00 - 0.06 10*3/uL LAB HEMATOLOGY METHOD 09/06/2025 2:51 AM EDT [facility] Blood Venous blood specimen / Unknown Venipuncture / Unknown 09/06/2025 2:35 AM EDT 09/06/2025 2:44 AM EDT [facility] - 09/06/2025 2:51 AM EDT Therapeutic decision making should be based on absolute values, rather than percentages. us Sheyla Malagon MD LAB BLOOD ORDERABLES Final Resu lt [facility] [address] [place] [address] * (ABNORMAL) Comprehensive Metabolic Panel, Plasma (09/06/2025 2:35 AM EDT) Glucose, Plasma 90 74 - 99 mg/dL 09/06/2025 3:11 AM EDT [facility] BUN, Plasma 8 8 - 23 mg/dL 09/06/2025 3:11 AM EDT [facility] Creatinine, Plasma 1.10 0.70 - 1.20 mg/dL 09/06/2025 3:11 AM EDT [facility] BUN/Creatinine Ratio 7 09/06/2025 3:11 AM EDT [facility] Sodium, Plasma 136 136 - 145 mmol/L 09/06/2025 3:11 AM EDT [facility] Potassium, Plasma 4.0 3.6 - 4.9 mmol/L 09/06/2025 3:11 AM EDT [facility] Chloride, Plasma 103 97 - 107 mmol/L 09/06/2025 3:11 AM EDT [facility] CO2, Plasma 24 22 - 29 mmol/L 09/06/2025 3:11 AM EDT [facility] Anion Gap 9 6 - 16 mmol/L 09/06/2025 3:11 AM EDT [facility] Total Calcium, Plasma 7.7(L) 8.9 - 10.2 mg/dL 09/06/2025 3:11 AM EDT [facility] Total Protein 5.2(L) 6.3 - 7.9 g/dL 09/06/2025 3:11 AM EDT [facility] Albumin, Plasma 2.2(L) 3.5 - 5.2 g/dL 09/06/2025 3:11 AM EDT [facility] AST, Plasma 33 10 - 50 U/L 09/06/2025 3:11 AM EDT [facility] ALT, Plasma 28 10 - 50 U/L 09/06/2025 3:11 AM EDT [facility] Alkaline Phosphatase, Plasma 80 40 - 115 U/L 09/06/2025 3:11 AM EDT [facility] Total Bilirubin, Plasma 0.4 0.2 - 1.1 mg/dL 09/06/2025 3:11 AM EDT [facility] eGFRcr 71.8 mL/min/1.7 3m*2 09/06/2025 3:11 AM EDT [facility] Comment:Reported eGFRcr in m L/min/1.73m2 is based the CKD-EPI 2020 equation that does not use a race coefficient. Blood Venous blood specimen / Unknown Venipuncture / Unknown 09/06/2025 2:35 AM EDT 09/06/2025 2:44 AM EDT us Sheyla Malagon MD LAB BLOOD ORDERABLES Final Resu lt Performing Organization Address City/[facility]/ZIP Co de Phone Number [facility] [address] [place] [address] * Morphology (09/04/2025 4:50 AM EDT) Polychromasia Slight LAB HEMATOLOGY METHOD 09/04/2025 6:06 AM EDT [facility] Echinocytes Present LAB HEMATOLOGY METHOD 09/04/2025 6:06 AM EDT [facility] RBC Morphology Slide Reviewed LAB HEMATOLOGY METHOD 09/04/2025 6:06 AM EDT [facility] Platelet Estimate Platelet smear estimate consistent with automated count LAB HEMATOLOGY METHOD 09/04/2025 6:06 AM EDT [facility] Blood Blood sample taken from central line / Unknown Venipuncture / Unknown 09/04/2025 4:50 AM EDT 09/04/2025 5:15 AM EDT us Sheyla Malagon MD LAB BLOOD ORDERABLES Final Resu lt Performing Organization Address City/[facility] de Phone Number [facility] [address] [place] [address] * (ABNORMAL) Manual Differential (09/04/2025 4:50 AM EDT) Blasts % 0 % LAB HEMATOLOGY METHOD 09/04/2025 6:06 AM EDT [facility] Promyelocytes % 0 % LAB HEMATOLOGY METHOD 09/04/2025 6:06 AM EDT [facility] Myelocytes % 0 % LAB HEMATOLOGY METHOD 09/04/2025 6:06 AM EDT [facility] Metamyelocytes % 2 % LAB HEMATOLOGY METHOD 09/04/2025 6:06 AM EDT [facility] Neutrophils % 91 % LAB HEMATOLOGY METHOD 09/04/2025 6:06 AM EDT [facility] Lymphocytes % 5 % LAB HEMATOLOGY METHOD 09/04/2025 6:06 AM EDT [facility] Reactive Lymphocytes % 0 % LAB HEMATOLOGY METHOD 09/04/2025 6:06 AM EDT [facility] Monocytes % 1 % LAB HEMATOLOGY METHOD 09/04/2025 6:06 AM EDT [facility] Eosinophils % 0 % LAB HEMATOLOGY METHOD 09/04/2025 6:06 AM EDT [facility] Basophils % 1 % LAB HEMATOLOGY METHOD 09/04/2025 6:06 AM EDT [facility] Blasts Absolute 0.00 10*3/UL LAB HEMATOLOGY METHOD 09/04/2025 6:06 AM EDT [facility] Promyelocytes Absolute 0.00 10*3/uL LAB HEMATOLOGY METHOD 09/04/2025 6:06 AM EDT [facility] Myelocytes Absolute 0.00 10*3/uL LAB HEMATOLOGY METHOD 09/04/2025 6:06 AM EDT [facility] Metamyelocytes Absolute 0.20 10*3/uL LAB HEMATOLOGY METHOD 09/04/2025 6:06 AM EDT [facility] Neutrophils Absolute 9.20(H) 1.60 - 6.10 10*3/uL LAB HEMATOLOGY METHOD 09/04/2025 6:06 AM EDT [facility] Lymphocytes Absolute 0.51(L) 1.20 - 3.90 10*3/uL LAB HEMATOLOGY METHOD 09/04/2025 6:06 AM EDT [facility] Reactive Lymphocytes Absolute 0.00 10*3/uL LAB HEMATOLOGY METHOD 09/04/2025 6:06 AM EDT [facility] Monocytes Absolute 0.10(L) 0.30 - 0.90 10*3/uL LAB HEMATOLOGY METHOD 09/04/2025 6:06 AM EDT [facility] Eosinophils Absolute 0.00 0.00 - 0.50 10*3/uL LAB HEMATOLOGY METHOD 09/04/2025 6:06 AM EDT [facility] Basophils Absolute 0.10 0.00 - 0.10 10*3/uL LAB HEMATOLOGY METHOD 09/04/2025 6:06 AM EDT [facility] Blood Blood sample taken from central line / Unknown Venipuncture / Unknown 09/04/2025 4:50 AM EDT 09/04/2025 5:15 AM EDT us Sheyla Malagon MD LAB BLOOD ORDERABLES Final Resu lt [facility] [address] [place] [address] * (ABNORMAL) Phosphorus, Plasma (09/04/2025 4:50 AM EDT) Phosphorus, Plasma 1.9(L) 2.5 - 4.5 mg/dL 09/04/2025 5:44 AM EDT [facility] Blood Blood sample taken from central line / Unknown Venipuncture / Unknown 09/04/2025 4:50 AM EDT 09/04/2025 5:13 AM EDT us Sheyla Malagon MD LAB BLOOD ORDERABLES Final Resu lt Performing Organization Address [facility]/ZIP Co de Phone Number [facility] [address] [place] [address] * Magnesium, Plasma (09/04/2025 4:50 AM EDT) Magnesium, Plasma 1.9 1.9 - 2.4 mg/dL 09/04/2025 5:44 AM EDT [facility] Blood Blood sample taken from central line / Unknown Venipuncture / Unknown 09/04/2025 4:50 AM EDT 09/04/2025 5:13 AM EDT us Sheyla Malagon MD LAB BLOOD ORDERABLES Final Resu lt Performing Organization Address [facility]/ZIP Co de Phone Number [facility] [address] [place] [address] * (ABNORMAL) Basic Metabolic Panel, Plasma (09/04/2025 4:50 AM EDT) Glucose, Plasma 88 74 - 99 mg/dL 09/04/2025 5:44 AM EDT [facility] BUN, Plasma 10 8 - 23 mg/dL 09/04/2025 5:44 AM EDT [facility] Creatinine, Plasma 1.04 0.70 - 1.20 mg/dL 09/04/2025 5:44 AM EDT [facility] BUN/Creatinine Ratio 10 09/04/2025 5:44 AM EDT [facility] Sodium, Plasma 137 136 - 145 mmol/L 09/04/2025 5:44 AM EDT [facility] Potassium, Plasma 3.5(L) 3.6 - 4.9 mmol/L 09/04/2025 5:44 AM EDT [facility] Chloride, Plasma 107 97 - 107 mmol/L 09/04/2025 5:44 AM EDT [facility] CO2, Plasma 24 22 - 29 mmol/L 09/04/2025 5:44 AM EDT [facility] Anion Gap 6 6 - 16 mmol/L 09/04/2025 5:44 AM EDT [facility] Total Calcium, Plasma 7.1(L) 8.9 - 10.2 mg/dL 09/04/2025 5:44 AM EDT [facility] eGFRcr 76.8 mL/min/1.7 3m*2 09/04/2025 5:44 AM EDT [facility] Comment:Reported eGFRcr in m L/min/1.73m2 is based the CKD-EPI 2020 equation that does not use a race coefficient. Blood Blood sample taken from central line / Unknown Venipuncture / Unknown 09/04/2025 4:50 AM EDT 09/04/2025 5:13 AM EDT us Sheyla Malagon MD LAB BLOOD ORDERABLES Final Resu lt [facility] [address] [place] [address] * (ABNORMAL) CBC and Differential (09/04/2025 4:50 AM EDT) WBC Count 10.11 3.70 - 10.30 10*3/uL LAB HEMATOLOGY METHOD 09/04/2025 6:06 AM EDT [facility] RBC Count 2.43(L) 4.60 - 6.10 10*6/uL LAB HEMATOLOGY METHOD 09/04/2025 6:06 AM EDT [facility] HGB 7.0(L) 13.7 - 17.5 g/dL LAB HEMATOLOGY METHOD 09/04/2025 6:06 AM EDT [facility] HCT 21.8(L) 40.0 - 51.0 % LAB HEMATOLOGY METHOD 09/04/2025 6:06 AM EDT [facility] Platelet Count 514(H) 155 - 369 10*3/uL LAB HEMATOLOGY METHOD 09/04/2025 6:06 AM EDT [facility] MCV 90 79 - 98 fL LAB HEMATOLOGY METHOD 09/04/2025 6:06 AM EDT [facility] MCH 28.8 26.0 - 32.0 pg LAB HEMATOLOGY METHOD 09/04/2025 6:06 AM EDT [facility] MCHC 32.1 30.7 - 35.5 g/dL LAB HEMATOLOGY METHOD 09/04/2025 6:06 AM EDT [facility] RDW 14.2 11.5 - 14.5 % LAB HEMATOLOGY METHOD 09/04/2025 6:06 AM EDT [facility] MPV 10.1 8.8 - 12.5 fL LAB HEMATOLOGY METHOD 09/04/2025 6:06 AM EDT [facility] nRBC 0.4(H) <=0.0 per 100 WBCs LAB HEMATOLOGY METHOD 09/04/2025 6:06 AM EDT [facility] Differential Type Manual LAB HEMATOLOGY METHOD 09/04/2025 6:06 AM EDT [facility] Blood Blood sample taken from central line / Unknown Venipuncture / Unknown 09/04/2025 4:50 AM EDT 09/04/2025 5:15 AM EDT Narrative [facility] - 09/04/2025 6:06 AM EDT Therapeutic decision making should be based on absolute values, rather than percentages. The previously reported component Neutrophils % is no longer being reported.The previously reported component Lymphocytes % is no longer being reported.The previously reported component Monocytes % is no longer being reported.The previously reported component Eosinophils % is no longer being reported.The previously reported component Basophils % is no longer being reported.The previously reported component Immature Granulocytes % is no longer being reported.The previously reported component Absolute Neutrophils is no longer being reported.The previously reported component Absolute Lymphocytes is no longer being reported.The previously reported component Absolute Monocytes is no longer being reported.The previously reported component Absolute Eosinophils is no longer being reported.The previously reported component Absolute Basophils is no longer being reported.The previously reported component Absolute Immature Granulocytes is no longer being reported. us Sheyla Malagon MD LAB BLOOD ORDERABLES Final Resu lt Performing Organization Address [facility] Co de Phone Number [facility] [address] [place] [address] * Morphology (09/03/2025 4:23 AM EDT) Polychromasia Slight LAB HEMATOLOGY METHOD 09/03/2025 6:21 AM EDT [facility] Elliptocytes/Ova locytes Present LAB HEMATOLOGY METHOD 09/03/2025 6:21 AM EDT [facility] RBC Morphology Slide Reviewed LAB HEMATOLOGY METHOD 09/03/2025 6:21 AM EDT [facility] Platelet Estimate Platelet smear estimate consistent with automated count LAB HEMATOLOGY METHOD 09/03/2025 6:21 AM EDT [facility] Blood Blood sample taken from central line / Unknown Venipuncture / Unknown 09/03/2025 4:23 AM EDT 09/03/2025 4:41 AM EDT us Jadon Rangel MD LAB BLOOD ORDERABLES Final Res ult Performing Organization Address [facility] Co de Phone Number [facility] [address] [place] [address] * (ABNORMAL) Manual Differential (09/03/2025 4:23 AM EDT) Pathologist [facility] Blasts % 0 % LAB HEMATOLOGY METHOD 09/03/2025 6:21 AM EDT [facility] Promyelocytes % 0 % LAB HEMATOLOGY METHOD 09/03/2025 6:21 AM EDT [facility] Myelocytes % 1 % LAB HEMATOLOGY METHOD 09/03/2025 6:21 AM EDT [facility] Metamyelocytes % 1 % LAB HEMATOLOGY METHOD 09/03/2025 6:21 AM EDT [facility] Neutrophils % 94 % LAB HEMATOLOGY METHOD 09/03/2025 6:21 AM EDT [facility] Lymphocytes % 2 % LAB HEMATOLOGY METHOD 09/03/2025 6:21 AM EDT [facility] Reactive Lymphocytes % 0 % LAB HEMATOLOGY METHOD 09/03/2025 6:21 AM EDT [facility] Monocytes % 2 % LAB HEMATOLOGY METHOD 09/03/2025 6:21 AM EDT [facility] Eosinophils % 0 % LAB HEMATOLOGY METHOD 09/03/2025 6:21 AM EDT [facility] Basophils % 0 % LAB HEMATOLOGY METHOD 09/03/2025 6:21 AM EDT [facility] Blasts Absolute 0.00 10*3/UL LAB HEMATOLOGY METHOD 09/03/2025 6:21 AM EDT [facility] Promyelocytes Absolute 0.00 10*3/uL LAB HEMATOLOGY METHOD 09/03/2025 6:21 AM EDT [facility] Myelocytes Absolute 0.10 10*3/uL LAB HEMATOLOGY METHOD 09/03/2025 6:21 AM EDT [facility] Metamyelocytes Absolute 0.10 10*3/uL LAB HEMATOLOGY METHOD 09/03/2025 6:21 AM EDT [facility] Neutrophils Absolute 9.80(H) 1.60 - 6.10 10*3/uL LAB HEMATOLOGY METHOD 09/03/2025 6:21 AM EDT [facility] Lymphocytes Absolute 0.21(L) 1.20 - 3.90 10*3/uL LAB HEMATOLOGY METHOD 09/03/2025 6:21 AM EDT [facility] Reactive Lymphocytes Absolute 0.00 10*3/uL LAB HEMATOLOGY METHOD 09/03/2025 6:21 AM EDT [facility] Monocytes Absolute 0.21(L) 0.30 - 0.90 10*3/uL LAB HEMATOLOGY METHOD 09/03/2025 6:21 AM EDT [facility] Eosinophils Absolute 0.00 0.00 - 0.50 10*3/uL LAB HEMATOLOGY METHOD 09/03/2025 6:21 AM EDT [facility] Basophils Absolute 0.00 0.00 - 0.10 10*3/uL LAB HEMATOLOGY METHOD 09/03/2025 6:21 AM EDT [facility] Blood Blood sample taken from central line / Unknown Venipuncture / Unknown 09/03/2025 4:23 AM EDT 09/03/2025 4:41 AM EDT us Jadon Rangel MD LAB BLOOD ORDERABLES Final Res ult Performing Organization Address City/[facility]/ZIP Co de Phone Number [facility] [address] [place] [address] * (ABNORMAL) Sedimentation Rate, Automated (09/03/2025 4:23 AM EDT) Sedimentation Rate 27(H) <20 mm/hr 2024 5:12 AM EDT [facility] Blood Blood sample taken from central line / Unknown Venipuncture / Unknown 09/03/2025 4:23 AM EDT 09/03/2025 4:41 AM EDT us Jadon Rangel MD LAB BLOOD ORDERABLES Final Res ult Performing Organization Address [facility] Co de Phone Number [facility] [address] [place] [address] * (ABNORMAL) C-Reactive Protein, Plasma (09/03/2025 4:23 AM EDT) CRP, Plasma 42.7(H) <=8.0 mg/L 09/03/2025 5:18 AM EDT [facility] Blood Blood sample taken from central line / Unknown Venipuncture / Unknown 09/03/2025 4:23 AM EDT 09/03/2025 4:41 AM EDT Narrative [facility] - 09/03/2025 5:18 AM EDT This CRP test is appropriate for assessment of infection, systemic inflammation and/or tissue injury. To assess cardiovascular disease risk order high sensitivity CRP (CRPH). us Jadon Rangel MD LAB BLOOD ORDERABLES Final Res ult Performing Organization Address City/[facility]/ZIP Co de Phone Number [facility] [address] [place] [address] * (ABNORMAL) Procalcitonin, Plasma (09/03/2025 4:23 AM EDT) Procalcitonin, Plasma 0.40(H) <0.09 ng/mL 09/03/2025 5:17 AM EDT [facility] Blood Blood sample taken from central line / Unknown Venipuncture / Unknown 09/03/2025 4:23 AM EDT 09/03/2025 4:41 AM EDT Narrative [facility] - 09/03/2025 5:17 AM EDT Procalcitonin concentrations in healthy individuals are <0.09 ng/mL. Published data support the following interpretive risk assessment: An elevated procalcitonin result does not always indicate sepsis. Various non-infectious conditions are known to increase procalcitonin. Results should be considered in the context of clinical symptoms and other laboratory tests. Procalcitonin >2.0 ng/mL: Concentrations >2.0 ng/mL on the first day of ICU admission are associated with a higher risk of progression to severe sepsis and/or septic shock. The change in PCT over time may help predict 28 day mortality risk. Please consult [email or web address] for more information. Test performed at [facility]. us Jadon Rangel MD LAB BLOOD ORDERABLES Final Res ult [facility] [address] [place] [address] * (ABNORMAL) Hepatic Function Panel (09/03/2025 4:23 AM EDT) Direct Bilirubin, Plasma <0.2 <=0.3 mg/dL 09/03/2025 5:18 AM EDT [facility] Alkaline Phosphatase, Plasma 65 40 - 115 U/L 09/03/2025 5:18 AM EDT [facility] Total Bilirubin, Plasma 0.3 0.2 - 1.1 mg/dL 09/03/2025 5:18 AM EDT [facility] Albumin, Plasma 1.8(L) 3.5 - 5.2 g/dL 09/03/2025 5:18 AM EDT [facility] Total Protein 4.1(L) 6.3 - 7.9 g/dL 09/03/2025 5:18 AM EDT [facility] ALT, Plasma 22 10 - 50 U/L 09/03/2025 5:18 AM EDT [facility] AST, Plasma 29 10 - 50 U/L 09/03/2025 5:18 AM EDT [facility] Blood Blood sample taken from central line / Unknown Venipuncture / Unknown 09/03/2025 4:23 AM EDT 09/03/2025 4:41 AM EDT us Jadon Rangel MD LAB BLOOD ORDERABLES Final Res ult [facility] [address] [place] [address] * (ABNORMAL) Basic Metabolic Panel, Plasma (09/03/2025 4:23 AM EDT) Glucose, Plasma 86 74 - 99 mg/dL 09/03/2025 5:18 AM EDT [facility] BUN, Plasma 13 8 - 23 mg/dL 09/03/2025 5:18 AM EDT [facility] Creatinine, Plasma 1.21(H) 0.70 - 1.20 mg/dL 09/03/2025 5:18 AM EDT [facility] BUN/Creatinine Ratio 11 09/03/2025 5:18 AM EDT [facility] Sodium, Plasma 140 136 - 145 mmol/L 09/03/2025 5:18 AM EDT [facility] Potassium, Plasma 3.4(L) 3.6 - 4.9 mmol/L 09/03/2025 5:18 AM EDT [facility] Chloride, Plasma 111(H) 97 - 107 mmol/L 09/03/2025 5:18 AM EDT [facility] CO2, Plasma 23 22 - 29 mmol/L 09/03/2025 5:18 AM EDT [facility] Anion Gap 6 6 - 16 mmol/L 09/03/2025 5:18 AM EDT [facility] Total Calcium, Plasma 7.1(L) 8.9 - 10.2 mg/dL 09/03/2025 5:18 AM EDT [facility] eGFRcr 64.0 mL/min/1.7 3m*2 09/03/2025 5:18 AM EDT [facility] Comment:Reported eGFRcr in m L/min/1.73m2 is based the CKD-EPI 2020 equation that does not use a race coefficient. Blood Blood sample taken from central line / Unknown Venipuncture / Unknown 09/03/2025 4:23 AM EDT 09/03/2025 4:41 AM EDT us Jadon Rangel MD LAB BLOOD ORDERABLES Final Res ult [facility] [facility] [address] [place] [address] * (ABNORMAL) CBC and Differential (09/03/2025 4:23 AM EDT) WBC Count 10.43(H) 3.70 - 10.30 10*3/uL LAB HEMATOLOGY METHOD 09/03/2025 6:21 AM EDT [facility] RBC Count 2.47(L) 4.60 - 6.10 10*6/uL LAB HEMATOLOGY METHOD 09/03/2025 6:21 AM EDT [facility] HGB 7.2(L) 13.7 - 17.5 g/dL LAB HEMATOLOGY METHOD 09/03/2025 6:21 AM EDT [facility] HCT 22.3(L) 40.0 - 51.0 % LAB HEMATOLOGY METHOD 09/03/2025 6:21 AM EDT [facility] Platelet Count 520(H) 155 - 369 10*3/uL LAB HEMATOLOGY METHOD 09/03/2025 6:21 AM EDT [facility] MCV 90 79 - 98 fL LAB HEMATOLOGY METHOD 09/03/2025 6:21 AM EDT [facility] MCH 29.1 26.0 - 32.0 pg LAB HEMATOLOGY METHOD 09/03/2025 6:21 AM EDT [facility] MCHC 32.3 30.7 - 35.5 g/dL LAB HEMATOLOGY METHOD 09/03/2025 6:21 AM EDT [facility] RDW 14.3 11.5 - 14.5 % LAB HEMATOLOGY METHOD 09/03/2025 6:21 AM EDT [facility] MPV 10.3 8.8 - 12.5 fL LAB HEMATOLOGY METHOD 09/03/2025 6:21 AM EDT [facility] nRBC 0.8(H) <=0.0 per 100 WBCs LAB HEMATOLOGY METHOD 09/03/2025 6:21 AM EDT [facility] Differential Type Manual LAB HEMATOLOGY METHOD 09/03/2025 6:21 AM EDT [facility] Blood Blood sample taken from central line / Unknown Venipuncture / Unknown 09/03/2025 4:23 AM EDT 09/03/2025 4:41 AM EDT Narrative [facility] - 09/03/2025 6:21 AM EDT Therapeutic decision making should be based on absolute values, rather than percentages. The previously reported component Neutrophils % is no longer being reported.The previously reported component Lymphocytes % is no longer being reported.The previously reported component Monocytes % is no longer being reported.The previously reported component Eosinophils % is no longer being reported.The previously reported component Basophils % is no longer being reported.The previously reported component Immature Granulocytes % is no longer being reported.The previously reported component Absolute Neutrophils is no longer being reported.The previously reported component Absolute Lymphocytes is no longer being reported.The previously reported component Absolute Monocytes is no longer being reported.The previously reported component Absolute Eosinophils is no longer being reported.The previously reported component Absolute Basophils is no longer being reported.The previously reported component Absolute Immature Granulocytes is no longer being reported. us Jadon Rangel MD LAB BLOOD ORDERABLES Final Res ult [facility] [address] [place] [address] * (ABNORMAL) Magnesium, Plasma (09/03/2025 4:23 AM EDT) Magnesium, Plasma 1.7(L) 1.9 - 2.4 mg/dL 09/03/2025 5:18 AM EDT [facility] Blood Blood sample taken from central line / Unknown Venipuncture / Unknown 09/03/2025 4:23 AM EDT 09/03/2025 4:41 AM EDT us Jadon Rangel MD LAB BLOOD ORDERABLES Final Res ult [facility] [address] [place] [address] * (ABNORMAL) Phosphorus, Plasma (09/03/2025 4:23 AM EDT) [facility] Phosphorus, Plasma 1.7(L) 2.5 - 4.5 mg/dL 09/03/2025 5:18 AM EDT [facility] Blood Blood sample taken from central line / Unknown Venipuncture / Unknown 09/03/2025 4:23 AM EDT 09/03/2025 4:41 AM EDT us Jadon Rangel MD LAB BLOOD ORDERABLES Final Res ult Performing Organization Address [facility]/ZIP Co de Phone Number [facility] [address] [place] [address] * Morphology (09/02/2025 3:06 AM EDT) [facility] Polychromasia Slight LAB HEMATOLOGY METHOD 09/02/2025 4:10 AM EDT [facility] Echinocytes Present LAB HEMATOLOGY METHOD 09/02/2025 4:10 AM EDT [facility] Elliptocytes/Ova locytes Present LAB HEMATOLOGY METHOD 09/02/2025 4:10 AM EDT [facility] RBC Morphology Slide Reviewed LAB HEMATOLOGY METHOD 09/02/2025 4:10 AM EDT [facility] Platelet Estimate Platelet smear estimate consistent with automated count LAB HEMATOLOGY METHOD 09/02/2025 4:10 AM EDT [facility] Blood Venous blood specimen / Unknown Venipuncture / Unknown 09/02/2025 3:06 AM EDT 09/02/2025 3:12 AM EDT us Jadon Rangel MD LAB BLOOD ORDERABLES Final Res ult Performing Organization Address City/[facility]/ZIP Co de Phone Number [facility] [address] [place] [address] * (ABNORMAL) Manual Differential (09/02/2025 3:06 AM EDT) [facility] Blasts % 0 % LAB HEMATOLOGY METHOD 09/02/2025 4:10 AM EDT [facility] Promyelocytes % 0 % LAB HEMATOLOGY METHOD 09/02/2025 4:10 AM EDT [facility] Myelocytes % 0 % LAB HEMATOLOGY METHOD 09/02/2025 4:10 AM EDT [facility] Metamyelocytes % 1 % LAB HEMATOLOGY METHOD 09/02/2025 4:10 AM EDT [facility] Neutrophils % 90 % LAB HEMATOLOGY METHOD 09/02/2025 4:10 AM EDT [facility] Lymphocytes % 7 % LAB HEMATOLOGY METHOD 09/02/2025 4:10 AM EDT [facility] Reactive Lymphocytes % 0 % LAB HEMATOLOGY METHOD 09/02/2025 4:10 AM EDT [facility] Monocytes % 2 % LAB HEMATOLOGY METHOD 09/02/2025 4:10 AM EDT [facility] Eosinophils % 0 % LAB HEMATOLOGY METHOD 09/02/2025 4:10 AM EDT [facility] Basophils % 0 % LAB HEMATOLOGY METHOD 09/02/2025 4:10 AM EDT [facility] Blasts Absolute 0.00 10*3/UL LAB HEMATOLOGY METHOD 09/02/2025 4:10 AM EDT [facility] Promyelocytes Absolute 0.00 10*3/uL LAB HEMATOLOGY METHOD 09/02/2025 4:10 AM EDT [facility] Myelocytes Absolute 0.00 10*3/uL LAB HEMATOLOGY METHOD 09/02/2025 4:10 AM EDT [facility] Metamyelocytes Absolute 0.13 10*3/uL LAB HEMATOLOGY METHOD 09/02/2025 4:10 AM EDT [facility] Neutrophils Absolute 11.47(H) 1.60 - 6.10 10*3/uL LAB HEMATOLOGY METHOD 09/02/2025 4:10 AM EDT [facility] Lymphocytes Absolute 0.89(L) 1.20 - 3.90 10*3/uL LAB HEMATOLOGY METHOD 09/02/2025 4:10 AM EDT [facility] Reactive Lymphocytes Absolute 0.00 10*3/uL LAB HEMATOLOGY METHOD 09/02/2025 4:10 AM EDT [facility] Monocytes Absolute 0.25(L) 0.30 - 0.90 10*3/uL LAB HEMATOLOGY METHOD 09/02/2025 4:10 AM EDT [facility] Eosinophils Absolute 0.00 0.00 - 0.50 10*3/uL LAB HEMATOLOGY METHOD 09/02/2025 4:10 AM EDT [facility] Basophils Absolute 0.00 0.00 - 0.10 10*3/uL LAB HEMATOLOGY METHOD 09/02/2025 4:10 AM EDT [facility] Blood Venous blood specimen / Unknown Venipuncture / Unknown 09/02/2025 3:06 AM EDT 09/02/2025 3:12 AM EDT us Jadon Rangel MD LAB BLOOD ORDERABLES Final Res ult Performing Organization Address [facility]/ZIP Co de Phone Number [facility] [address] [place] [address] * (ABNORMAL) Sedimentation Rate, Automated (09/02/2025 3:06 AM EDT) Sedimentation Rate 25(H) <20 mm/hr 2024 3:37 AM EDT [facility] Blood Venous blood specimen / Unknown Venipuncture / Unknown 09/02/2025 3:06 AM EDT 09/02/2025 3:12 AM EDT us Jadon Rangel MD LAB BLOOD ORDERABLES Final Res ult Performing Organization Address City/[facility] Co de Phone Number [facility] [address] [place] [address] * (ABNORMAL) C-Reactive Protein, Plasma (09/02/2025 3:06 AM EDT) CRP, Plasma 68.3(H) <=8.0 mg/L 09/02/2025 3:44 AM EDT [facility] Blood Venous blood specimen / Unknown Venipuncture / Unknown 09/02/2025 3:06 AM EDT 09/02/2025 3:12 AM EDT Narrative [facility] - 09/02/2025 3:44 AM EDT This CRP test is appropriate for assessment of infection, systemic inflammation and/or tissue injury. To assess cardiovascular disease risk order high sensitivity CRP (CRPH). Jadon Rangel MD LAB BLOOD ORDERABLES Final Res ult Performing Organization Address [facility] Co de Phone Number [facility] [address] [place] [address] * (ABNORMAL) Procalcitonin, Plasma (09/02/2025 3:06 AM EDT) Procalcitonin, Plasma 0.75(H) <0.09 ng/mL 09/02/2025 3:49 AM EDT [facility] Blood Venous blood specimen / Unknown Venipuncture / Unknown 09/02/2025 3:06 AM EDT 09/02/2025 3:12 AM EDT Narrative [facility] - 09/02/2025 3:49 AM EDT Procalcitonin concentrations in healthy individuals are <0.09 ng/mL. Published data support the following interpretive risk assessment: An elevated procalcitonin result does not always indicate sepsis. Various non-infectious conditions are known to increase procalcitonin. Results should be considered in the context of clinical symptoms and other laboratory tests. Procalcitonin >2.0 ng/mL: Concentrations >2.0 ng/mL on the first day of ICU admission are associated with a higher risk of progression to severe sepsis and/or septic shock. The change in PCT over time may help predict 28 day mortality risk. Please consult [email or web address] for more information. Test performed at [facility], [facility] Laboratory. Jadon Rangel MD LAB BLOOD ORDERABLES Final Res ult Performing Organization Address [facility] Co de Phone Number [facility] [address] [place] [address] * (ABNORMAL) Hepatic Function Panel (09/02/2025 3:06 AM EDT) Direct Bilirubin, Plasma <0.2 <=0.3 mg/dL 09/02/2025 3:44 AM EDT [facility] Alkaline Phosphatase, Plasma 63 40 - 115 U/L 09/02/2025 3:44 AM EDT [facility] Total Bilirubin, Plasma 0.3 0.2 - 1.1 mg/dL 09/02/2025 3:44 AM EDT [facility] Albumin, Plasma 1.7(L) 3.5 - 5.2 g/dL 09/02/2025 3:44 AM EDT [facility] Total Protein 3.8(L) 6.3 - 7.9 g/dL 09/02/2025 3:44 AM EDT [facility] ALT, Plasma 20 10 - 50 U/L 09/02/2025 3:44 AM EDT [facility] AST, Plasma 24 10 - 50 U/L 09/02/2025 3:44 AM EDT [facility] Blood Venous blood specimen / Unknown Venipuncture / Unknown 09/02/2025 3:06 AM EDT 09/02/2025 3:12 AM EDT us Jadon Rangel MD LAB BLOOD ORDERABLES Final Res ult [facility] [address] [place] [address] * (ABNORMAL) Basic Metabolic Panel, Plasma (09/02/2025 3:06 AM EDT) Glucose, Plasma 87 74 - 99 mg/dL 09/02/2025 3:44 AM EDT [facility] BUN, Plasma 26(H) 8 - 23 mg/dL 09/02/2025 3:44 AM EDT [facility] Creatinine, Plasma 1.56(H) 0.70 - 1.20 mg/dL 09/02/2025 3:44 AM EDT [facility] BUN/Creatinine Ratio 17 09/02/2025 3:44 AM EDT [facility] Sodium, Plasma 138 136 - 145 mmol/L 09/02/2025 3:44 AM EDT [facility] Potassium, Plasma 2.8(L) 3.6 - 4.9 mmol/L 09/02/2025 3:44 AM EDT [facility] Chloride, Plasma 109(H) 97 - 107 mmol/L 09/02/2025 3:44 AM EDT [facility] CO2, Plasma 21(L) 22 - 29 mmol/L 09/02/2025 3:44 AM EDT [facility] Anion Gap 8 6 - 16 mmol/L 09/02/2025 3:44 AM EDT [facility] Total Calcium, Plasma 7.2(L) 8.9 - 10.2 mg/dL 09/02/2025 3:44 AM EDT [facility] eGFRcr 47.2 mL/min/1.7 3m*2 09/02/2025 3:44 AM EDT [facility] Comment:Reported eGFRcr in m L/min/1.73m2 is based the CKD-EPI 2020 equation that does not use a race coefficient. Blood Venous blood specimen / Unknown Venipuncture / Unknown 09/02/2025 3:06 AM EDT 09/02/2025 3:12 AM EDT us Jadon Rangel MD LAB BLOOD ORDERABLES Final Res ult [facility] [address] [place] [address] * (ABNORMAL) CBC and Differential (09/02/2025 3:06 AM EDT) WBC Count 12.74(H) 3.70 - 10.30 10*3/uL LAB HEMATOLOGY METHOD 09/02/2025 4:10 AM EDT [facility] RBC Count 2.41(L) 4.60 - 6.10 10*6/uL LAB HEMATOLOGY METHOD 09/02/2025 4:10 AM EDT [facility] HGB 7.0(L) 13.7 - 17.5 g/dL LAB HEMATOLOGY METHOD 09/02/2025 4:10 AM EDT [facility] HCT 21.2(L) 40.0 - 51.0 % LAB HEMATOLOGY METHOD 09/02/2025 4:10 AM EDT [facility] Platelet Count 434(H) 155 - 369 10*3/uL LAB HEMATOLOGY METHOD 09/02/2025 4:10 AM EDT [facility] MCV 88 79 - 98 fL LAB HEMATOLOGY METHOD 09/02/2025 4:10 AM EDT [facility] MCH 29.0 26.0 - 32.0 pg LAB HEMATOLOGY METHOD 09/02/2025 4:10 AM EDT [facility] MCHC 33.0 30.7 - 35.5 g/dL LAB HEMATOLOGY METHOD 09/02/2025 4:10 AM EDT [facility] RDW 14.4 11.5 - 14.5 % LAB HEMATOLOGY METHOD 09/02/2025 4:10 AM EDT [facility] MPV 10.3 8.8 - 12.5 fL LAB HEMATOLOGY METHOD 09/02/2025 4:10 AM EDT [facility] nRBC 0.4(H) <=0.0 per 100 WBCs LAB HEMATOLOGY METHOD 09/02/2025 4:10 AM EDT [facility] Differential Type Manual LAB HEMATOLOGY METHOD 09/02/2025 4:10 AM EDT [facility] Blood Venous blood specimen / Unknown Venipuncture / Unknown 09/02/2025 3:06 AM EDT 09/02/2025 3:12 AM EDT Narrative [facility] - 09/02/2025 4:10 AM EDT Therapeutic decision making should be based on absolute values, rather than percentages. The previously reported component Neutrophils % is no longer being reported.The previously reported component Lymphocytes % is no longer being reported.The previously reported component Monocytes % is no longer being reported.The previously reported component Eosinophils % is no longer being reported.The previously reported component Basophils % is no longer being reported.The previously reported component Immature Granulocytes % is no longer being reported.The previously reported component Absolute Neutrophils is no longer being reported.The previously reported component Absolute Lymphocytes is no longer being reported.The previously reported component Absolute Monocytes is no longer being reported.The previously reported component Absolute Eosinophils is no longer being reported.The previously reported component Absolute Basophils is no longer being reported.The previously reported component Absolute Immature Granulocytes is no longer being reported. us Jadon Rangel MD LAB BLOOD ORDERABLES Final Res ult [facility] [address] [place] [address] * (ABNORMAL) Magnesium, Plasma (09/02/2025 3:06 AM EDT) Magnesium, Plasma 1.7(L) 1.9 - 2.4 mg/dL 09/02/2025 3:44 AM EDT [facility] Blood Venous blood specimen / Unknown Venipuncture / Unknown 09/02/2025 3:06 AM EDT 09/02/2025 3:12 AM EDT us Jadon Rangel MD LAB BLOOD ORDERABLES Final Res ult Performing Organization Address [facility] [place] [address] * (ABNORMAL) Phosphorus, Plasma (09/02/2025 3:06 AM EDT) Phosphorus, Plasma 2.1(L) 2.5 - 4.5 mg/dL 09/02/2025 3:44 AM EDT [facility] Blood Venous blood specimen / Unknown Venipuncture / Unknown 09/02/2025 3:06 AM EDT 09/02/2025 3:12 AM EDT us Jadon Rangel MD LAB BLOOD ORDERABLES Final Res ult Performing Organization Address [facility] [place] [address] * Cortisol (09/01/2025 8:57 AM EDT) Cortisol 17.00 Before 10am: 3.7 - 19.4. After 5pm: 2.9 - 17.3 ug/dL 09/01/2025 10:16 AM EDT [facility] Comment:Testing performed on [employer]unch Hand, standardized against RETIREMENT Reference Standard concentration values assigned by LC-MS/MS and verified by BCR 192 and BCR 193 certified reference materials. Blood Venous blood specimen / Unknown Venipuncture / Unknown 09/01/2025 8:57 AM EDT 09/01/2025 9:08 AM EDT us Sheyla Malagon MD LAB REF LAB BLOOD AND FLUID ORD Final Result Performing Organization Address [facility]/ZIP Co de Phone Number [facility] [address] [place] [address] * (ABNORMAL) Hemoglobin and Hematocrit, Blood (09/01/2025 4:50 AM EDT) Pathologist [facility] HGB 7.7(L) 13.7 - 17.5 g/dL LAB HEMATOLOGY METHOD 09/01/2025 5:09 AM EDT [facility] HCT 22.8(L) 40.0 - 51.0 % LAB HEMATOLOGY METHOD 09/01/2025 5:09 AM EDT [facility] Blood Venous blood specimen / Unknown Venipuncture / Unknown 09/01/2025 4:50 AM EDT 09/01/2025 4:59 AM EDT us Shannon Burris MD LAB BLOOD ORDERABLES Final Resu lt Performing Organization Address [facility] Co de Phone Number [facility] [address] [place] [address] * Morphology (09/01/2025 4:05 AM EDT) [facility] Echinocytes Present LAB HEMATOLOGY METHOD 09/01/2025 5:26 AM EDT [facility] Elliptocytes/O valocytes Present LAB HEMATOLOGY METHOD 09/01/2025 5:26 AM EDT [facility] RBC Morphology Slide Reviewed LAB HEMATOLOGY METHOD 09/01/2025 5:26 AM EDT [facility] Platelet Estimate Platelet smear estimate consistent with automated count LAB HEMATOLOGY METHOD 09/01/2025 5:26 AM EDT [facility] Blood Venous blood specimen / Unknown Venipuncture / Unknown 09/01/2025 4:05 AM EDT 09/01/2025 4:24 AM EDT us Jadon Rangel MD LAB BLOOD ORDERABLES Final Res ult Performing Organization Address [facility]/ZIP Co de Phone Number [facility] [address] [place] [address] * (ABNORMAL) Manual Differential (09/01/2025 4:05 AM EDT) Pathologist [facility] Blasts % 0 % LAB HEMATOLOGY METHOD 09/01/2025 5:26 AM EDT [facility] Promyelocytes % 0 % LAB HEMATOLOGY METHOD 09/01/2025 5:26 AM EDT [facility] Myelocytes % 0 % LAB HEMATOLOGY METHOD 09/01/2025 5:26 AM EDT [facility] Metamyelocytes % 4 % LAB HEMATOLOGY METHOD 09/01/2025 5:26 AM EDT [facility] Neutrophils % 85 % LAB HEMATOLOGY METHOD 09/01/2025 5:26 AM EDT [facility] Lymphocytes % 3 % LAB HEMATOLOGY METHOD 09/01/2025 5:26 AM EDT [facility] Reactive Lymphocytes % 0 % LAB HEMATOLOGY METHOD 09/01/2025 5:26 AM EDT [facility] Monocytes % 8 % LAB HEMATOLOGY METHOD 09/01/2025 5:26 AM EDT [facility] Eosinophils % 0 % LAB HEMATOLOGY METHOD 09/01/2025 5:26 AM EDT [facility] Basophils % 0 % LAB HEMATOLOGY METHOD 09/01/2025 5:26 AM EDT [facility] Blasts Absolute 0.00 10*3/UL LAB HEMATOLOGY METHOD 09/01/2025 5:26 AM EDT [facility] Promyelocytes Absolute 0.00 10*3/uL LAB HEMATOLOGY METHOD 09/01/2025 5:26 AM EDT [facility] Myelocytes Absolute 0.00 10*3/uL LAB HEMATOLOGY METHOD 09/01/2025 5:26 AM EDT [facility] Metamyelocytes Absolute 0.78 10*3/uL LAB HEMATOLOGY METHOD 09/01/2025 5:26 AM EDT [facility] Neutrophils Absolute 16.64(H) 1.60 - 6.10 10*3/uL LAB HEMATOLOGY METHOD 09/01/2025 5:26 AM EDT [facility] Lymphocytes Absolute 0.59(L) 1.20 - 3.90 10*3/uL LAB HEMATOLOGY METHOD 09/01/2025 5:26 AM EDT [facility] Reactive Lymphocytes Absolute 0.00 10*3/uL LAB HEMATOLOGY METHOD 09/01/2025 5:26 AM EDT [facility] Monocytes Absolute 1.57(H) 0.30 - 0.90 10*3/uL LAB HEMATOLOGY METHOD 09/01/2025 5:26 AM EDT [facility] Eosinophils Absolute 0.00 0.00 - 0.50 10*3/uL LAB HEMATOLOGY METHOD 09/01/2025 5:26 AM EDT [facility] Basophils Absolute 0.00 0.00 - 0.10 10*3/uL LAB HEMATOLOGY METHOD 09/01/2025 5:26 AM EDT [facility] Blood Venous blood specimen / Unknown Venipuncture / Unknown 09/01/2025 4:05 AM EDT 09/01/2025 4:24 AM EDT us Jadon Rangel MD LAB BLOOD ORDERABLES Final Res ult Performing Organization Address [facility] [place] [address] * Thyroid Stimulating Hormone, Plasma (09/01/2025 4:05 AM EDT) Thyroid Stimulating Hormone, Plasma 1.14 0.40 - 4.20 uIU/mL 09/01/2025 5:03 AM EDT [facility] Blood Venous blood specimen / Unknown Venipuncture / Unknown 09/01/2025 4:05 AM EDT 09/01/2025 4:24 AM EDT us Sheyla Malagon MD LAB BLOOD ORDERABLES Final Resu lt Performing Organization Address [facility]/[place] [address] * (ABNORMAL) Sedimentation Rate, Automated (09/01/2025 4:05 AM EDT) Sedimentation Rate 33(H) <20 mm/hr 2024 4:49 AM EDT [facility] Blood Venous blood specimen / Unknown Venipuncture / Unknown 09/01/2025 4:05 AM EDT 09/01/2025 4:24 AM EDT us Jadon Rangel MD LAB BLOOD ORDERABLES Final Res ult Performing Organization Address [facility]/ZIP Co de Phone Number [facility] [address] [place] [address] * (ABNORMAL) C-Reactive Protein, Plasma (09/01/2025 4:05 AM EDT) CRP, Plasma 129.2(H) <=8.0 mg/L 09/01/2025 5:03 AM EDT [facility] Blood Venous blood specimen / Unknown Venipuncture / Unknown 09/01/2025 4:05 AM EDT 09/01/2025 4:24 AM EDT Narrative [facility] - 09/01/2025 5:03 AM EDT This CRP test is appropriate for assessment of infection, systemic inflammation and/or tissue injury. To assess cardiovascular disease risk order high sensitivity CRP (CRPH). Jadon Rangel MD LAB BLOOD ORDERABLES Final Res [facility] Performing Organization Address [facility] Co de Phone Number [facility] [address] [place] [address] * (ABNORMAL) Procalcitonin, Plasma (09/01/2025 4:05 AM EDT) Procalcitonin, Plasma 1.35(H) <0.09 ng/mL 09/01/2025 5:04 AM EDT [facility] Blood Venous blood specimen / Unknown Venipuncture / Unknown 09/01/2025 4:05 AM EDT 09/01/2025 4:25 AM EDT Narrative [facility] - 09/01/2025 5:04 AM EDT Procalcitonin concentrations in healthy individuals are <0.09 ng/mL. Published data support the following interpretive risk assessment: An elevated procalcitonin result does not always indicate sepsis. Various non-infectious conditions are known to increase procalcitonin. Results should be considered in the context of clinical symptoms and other laboratory tests. Procalcitonin >2.0 ng/mL: Concentrations >2.0 ng/mL on the first day of ICU admission are associated with a higher risk of progression to severe sepsis and/or septic shock. The change in PCT over time may help predict 28 day mortality risk. Please consult [email or web address] for more information. Test performed at [facility], [facility] Laboratory. us Jadon Rangel MD LAB BLOOD ORDERABLES Final Res ult Performing Organization Address [facility] Co de Phone Number [facility] [address] [place] [address] * (ABNORMAL) Hepatic Function Panel (09/01/2025 4:05 AM EDT) Direct Bilirubin, Plasma <0.2 <=0.3 mg/dL 09/01/2025 5:03 AM EDT [facility] Alkaline Phosphatase, Plasma 67 40 - 115 U/L 09/01/2025 5:03 AM EDT [facility] Total Bilirubin, Plasma 0.3 0.2 - 1.1 mg/dL 09/01/2025 5:03 AM EDT [facility] Albumin, Plasma 1.8(L) 3.5 - 5.2 g/dL 09/01/2025 5:03 AM EDT [facility] Total Protein 4.3(L) 6.3 - 7.9 g/dL 09/01/2025 5:03 AM EDT [facility] ALT, Plasma 20 10 - 50 U/L 09/01/2025 5:03 AM EDT [facility] AST, Plasma 25 10 - 50 U/L 09/01/2025 5:03 AM EDT [facility] Blood Venous blood specimen / Unknown Venipuncture / Unknown 09/01/2025 4:05 AM EDT 09/01/2025 4:24 AM EDT us Jadon Rangel MD LAB BLOOD ORDERABLES Final Res ult Performing Organization Address [facility]/ZIP Co de Phone Number [facility] [address] [place] [address] * (ABNORMAL) Basic Metabolic Panel, Plasma (09/01/2025 4:05 AM EDT) Glucose, Plasma 91 74 - 99 mg/dL 09/01/2025 5:04 AM EDT [facility] BUN, Plasma 42(H) 8 - 23 mg/dL 09/01/2025 5:04 AM EDT [facility] Creatinine, Plasma 2.57(H) 0.70 - 1.20 mg/dL 09/01/2025 5:04 AM EDT [facility] BUN/Creatinine Ratio 16 09/01/2025 5:04 AM EDT [facility] Sodium, Plasma 138 136 - 145 mmol/L 09/01/2025 5:04 AM EDT [facility] Potassium, Plasma 3.0(L) 3.6 - 4.9 mmol/L 09/01/2025 5:04 AM EDT [facility] Chloride, Plasma 109(H) 97 - 107 mmol/L 09/01/2025 5:04 AM EDT [facility] CO2, Plasma 18(L) 22 - 29 mmol/L 09/01/2025 5:04 AM EDT [facility] Anion Gap 11 6 - 16 mmol/L 09/01/2025 5:04 AM EDT [facility] Total Calcium, Plasma 7.5(L) 8.9 - 10.2 mg/dL 09/01/2025 5:04 AM EDT [facility] eGFRcr 25.9 mL/min/1.7 3m*2 09/01/2025 5:04 AM EDT [facility] Comment:Reported eGFRcr in m L/min/1.73m2 is based the CKD-EPI 2020 equation that does not use a race coefficient. Blood Venous blood specimen / Unknown Venipuncture / Unknown 09/01/2025 4:05 AM EDT 09/01/2025 4:25 AM EDT us Jadon Rangel MD LAB BLOOD ORDERABLES Final Res ult [facility] [address] [place] [address] * (ABNORMAL) CBC and Differential (09/01/2025 4:05 AM EDT) WBC Count 19.58(H) 3.70 - 10.30 10*3/uL LAB HEMATOLOGY METHOD 09/01/2025 5:26 AM EDT [facility] RBC Count 1.80(L) 4.60 - 6.10 10*6/uL LAB HEMATOLOGY METHOD 09/01/2025 5:26 AM EDT [facility] HGB 5.3(LL) 13.7 - 17.5 g/dL LAB HEMATOLOGY METHOD 09/01/2025 5:26 AM EDT [facility] HCT 16.0(LL) 40.0 - 51.0 % LAB HEMATOLOGY METHOD 09/01/2025 5:26 AM EDT [facility] Platelet Count 439(H) 155 - 369 10*3/uL LAB HEMATOLOGY METHOD 09/01/2025 5:26 AM EDT [facility] MCV 89 79 - 98 fL LAB HEMATOLOGY METHOD 09/01/2025 5:26 AM EDT [facility] MCH 29.4 26.0 - 32.0 pg LAB HEMATOLOGY METHOD 09/01/2025 5:26 AM EDT [facility] MCHC 33.1 30.7 - 35.5 g/dL LAB HEMATOLOGY METHOD 09/01/2025 5:26 AM EDT [facility] RDW 14.3 11.5 - 14.5 % LAB HEMATOLOGY METHOD 09/01/2025 5:26 AM EDT [facility] MPV 10.6 8.8 - 12.5 fL LAB HEMATOLOGY METHOD 09/01/2025 5:26 AM EDT [facility] nRBC 0.3(H) <=0.0 per 100 WBCs LAB HEMATOLOGY METHOD 09/01/2025 5:26 AM EDT [facility] Differential Type Manual LAB HEMATOLOGY METHOD 09/01/2025 5:26 AM EDT [facility] Blood Venous blood specimen / Unknown Venipuncture / Unknown 09/01/2025 4:05 AM EDT 09/01/2025 4:24 AM EDT Narrative [facility] - 09/01/2025 5:26 AM EDT Therapeutic decision making should be based on absolute values, rather than percentages. The previously reported component Neutrophils % is no longer being reported.The previously reported component Lymphocytes % is no longer being reported.The previously reported component Monocytes % is no longer being reported.The previously reported component Eosinophils % is no longer being reported.The previously reported component Basophils % is no longer being reported.The previously reported component Immature Granulocytes % is no longer being reported.The previously reported component Absolute Neutrophils is no longer being reported.The previously reported component Absolute Lymphocytes is no longer being reported.The previously reported component Absolute Monocytes is no longer being reported.The previously reported component Absolute Eosinophils is no longer being reported.The previously reported component Absolute Basophils is no longer being reported.The previously reported component Absolute Immature Granulocytes is no longer being reported. us Jadon Rangel MD LAB BLOOD ORDERABLES Final Res ult Performing Organization Address City/[facility]/[place] [address] * Magnesium, Plasma (09/01/2025 4:05 AM EDT) Magnesium, Plasma 2.0 1.9 - 2.4 mg/dL 09/01/2025 5:03 AM EDT [facility] Blood Venous blood specimen / Unknown Venipuncture / Unknown 09/01/2025 4:05 AM EDT 09/01/2025 4:24 AM EDT Result Liliana Rangel MD LAB BLOOD ORDERABLES Final Res ult Performing Organization Address [facility] [place] [place] [address] * Phosphorus, Plasma (09/01/2025 4:05 AM EDT) Phosphorus, Plasma 3.1 2.5 - 4.5 mg/dL 09/01/2025 5:03 AM EDT [facility] Blood Venous blood specimen / Unknown Venipuncture / Unknown 09/01/2025 4:05 AM EDT 09/01/2025 4:24 AM EDT us Jadon Rangel MD LAB BLOOD ORDERABLES Final Res ult Performing Organization Address City/[facility]/[place] [address] * (ABNORMAL) Basic metabolic panel (2025 1:16 PM EDT) Glucose, Plasma 100(H) 74 - 99 mg/dL 2025 2:22 PM EDT [facility] BUN, Plasma 53(H) 8 - 23 mg/dL 2025 2:22 PM EDT [facility] Creatinine, Plasma 4.14(H) 0.70 - 1.20 mg/dL 2025 2:22 PM EDT [facility] BUN/Creatinine Ratio 13 2025 2:22 PM EDT [facility] Sodium, Plasma 132(L) 136 - 145 mmol/L 2025 2:22 PM EDT [facility] Potassium, Plasma 3.7 3.6 - 4.9 mmol/L 2025 2:22 PM EDT [facility] Chloride, Plasma 104 97 - 107 mmol/L 2025 2:22 PM EDT [facility] CO2, Plasma 13(L) 22 - 29 mmol/L 2025 2:22 PM EDT [facility] Anion Gap 15 6 - 16 mmol/L 2025 2:22 PM EDT [facility] Total Calcium, Plasma 7.6(L) 8.9 - 10.2 mg/dL 2025 2:22 PM EDT [facility] eGFRcr 14.6 mL/min/1.7 3m*2 2025 2:22 PM EDT [facility] Comment:Reported eGFRcr in m L/min/1.73m2 is based the CKD-EPI 2020 equation that does not use a race coefficient. Blood Venous blood specimen / Unknown Venipuncture / Unknown 2025 1:16 PM EDT 2025 1:35 PM EDT us Sheyla Malagon MD LAB BLOOD ORDERABLES Final Resu lt [facility] [address] [place] [address] * Urinalysis Microscopic Examination (2025 10:38 AM EDT) Urine Urine specimen from urinary conduit / Unknown Non-blood Collection / Unknown 2025 10:38 AM EDT 2025 11:14 AM EDT us Sheyla Malagon MD LAB URINE ORDERABLES Final Resu lt Performing Organization Address [facility] Co de Phone Number [facility] [address] [place] [address] * Osmolality, Urine (2025 10:38 AM EDT) Osmolality, Urine 462 50 - 1,200 mOsm/kg 2025 11:38 AM EDT [facility] Urine Urine specimen from urinary conduit / Unknown Non-blood Collection / Unknown 2025 10:38 AM EDT 2025 11:09 AM EDT us Sheyla Malagon MD LAB URINE ORDERABLES Final Resu lt Performing Organization Address [facility] de Phone Number [facility] [address] [place] [phone] * Sodium, Random, Urine (2025 10:38 AM EDT) Sodium, Urine <20 mmol/L 2025 11:29 AM EDT [facility] Urine Urine specimen from urinary conduit / Unknown Non-blood Collection / Unknown 2025 10:38 AM EDT 2025 11:09 AM EDT us Sheyla Malagon MD LAB URINE ORDERABLES Final Resu lt Performing Organization Address [facility] de Phone Number [facility] [address] [place] [phone] * (ABNORMAL) Urinalysis with reflex microscopic (Culture NOT Included) (2025 10:38 AM EDT) Color, Urine Yellow LAB URINALYSIS - AUTOMATED METHOD 2025 11:29 AM [facility] Clarity, Urine Clear LAB URINALYSIS - AUTOMATED METHOD 2025 11:29 AM [facility] Spec [place], Urine 1.024 1.005 - 1.030 LAB URINALYSIS - AUTOMATED METHOD 2025 11:29 AM [facility] pH, Urine 6.0 5.0 - 8.0 LAB URINALYSIS - AUTOMATED METHOD 2025 11:29 AM [facility] Protein, Urine 30(A) Negative mg/dL LAB URINALYSIS - AUTOMATED METHOD 2025 11:29 AM [facility] Glucose, Urine Negative Negative mg/dL LAB URINALYSIS - AUTOMATED METHOD 2025 11:29 AM [facility] Ketones, Urine Trace(A) Negative mg/dL LAB URINALYSIS - AUTOMATED METHOD 2025 11:29 AM [facility] Blood, Urine Large(A) Negative LAB URINALYSIS - AUTOMATED METHOD 2025 11:29 AM [facility] Bilirubin, Urine Negative Negative LAB URINALYSIS - AUTOMATED METHOD 2025 11:29 AM [facility] Urobilinogen, Urine 0.2 0.2 to 1.0 mg/dL LAB URINALYSIS - AUTOMATED METHOD 2025 11:29 AM [facility] Leukocytes, Urine Negative Negative LAB URINALYSIS - AUTOMATED METHOD 2025 11:29 AM [facility] Nitrite, Urine Negative Negative LAB URINALYSIS - AUTOMATED METHOD 2025 11:29 AM [facility] RBC, Urine >50(A) 0 to 3 /HPF LAB URINALYSIS - AUTOMATED METHOD 2025 11:29 AM [facility] WBC, Urine 0 - 5 0 to 5 /HPF LAB URINALYSIS - AUTOMATED METHOD 2025 11:29 AM [facility] Squamous Epithelial Cells 3 - 5 0 to 5 /HPF LAB URINALYSIS - AUTOMATED METHOD 2025 11:29 AM [facility] Hyaline Casts 0 - 2 0 to 5 /LPF LAB URINALYSIS - AUTOMATED METHOD 2025 11:29 AM EDT [facility] Bacteria, Urine Negative Negative LAB URINALYSIS - AUTOMATED METHOD 2025 11:29 AM EDT [facility] Urine Urine specimen from urinary conduit / Unknown Non-blood Collection / Unknown 2025 10:38 AM EDT 2025 11:14 AM EDT us Sheyla Malagon MD LAB URINE ORDERABLES Final Resu lt Performing Organization Address [facility] Co de Phone Number [facility] [address] [place] [address] * Morphology (2025 4:23 AM EDT) Echinocytes Present LAB HEMATOLOGY METHOD 2025 6:10 AM EDT [facility] Elliptocytes/O valocytes Present LAB HEMATOLOGY METHOD 2025 6:10 AM EDT [facility] RBC Morphology Slide Reviewed LAB HEMATOLOGY METHOD 2025 6:10 AM EDT [facility] Platelet Estimate Platelet smear estimate consistent with automated count LAB HEMATOLOGY METHOD 2025 6:10 AM EDT [facility] Blood Blood sample taken from central line / Unknown Venipuncture / Unknown 2025 4:23 AM EDT 2025 4:31 AM EDT us Jadon Rangel MD LAB BLOOD ORDERABLES Final Res ult Performing Organization Address City/[facility]/ZIP Co de Phone Number [facility] [address] [place] [address] * (ABNORMAL) Manual Differential (2025 4:23 AM EDT) Blasts % 0 % LAB HEMATOLOGY METHOD 2025 6:10 AM EDT [facility] Promyelocytes % 0 % LAB HEMATOLOGY METHOD 2025 6:10 AM EDT [facility] Myelocytes % 2 % LAB HEMATOLOGY METHOD 2025 6:10 AM EDT [facility] Metamyelocytes % 3 % LAB HEMATOLOGY METHOD 2025 6:10 AM EDT [facility] Neutrophils % 88 % LAB HEMATOLOGY METHOD 2025 6:10 AM EDT [facility] Lymphocytes % 2 % LAB HEMATOLOGY METHOD 2025 6:10 AM EDT [facility] Reactive Lymphocytes % 0 % LAB HEMATOLOGY METHOD 2025 6:10 AM EDT [facility] Monocytes % 5 % LAB HEMATOLOGY METHOD 2025 6:10 AM EDT [facility] Eosinophils % 0 % LAB HEMATOLOGY METHOD 2025 6:10 AM EDT [facility] Basophils % 0 % LAB HEMATOLOGY METHOD 2025 6:10 AM EDT [facility] Blasts Absolute 0.00 10*3/UL LAB HEMATOLOGY METHOD 2025 6:10 AM EDT [facility] Promyelocytes Absolute 0.00 10*3/uL LAB HEMATOLOGY METHOD 2025 6:10 AM EDT [facility] Myelocytes Absolute 0.46 10*3/uL LAB HEMATOLOGY METHOD 2025 6:10 AM EDT [facility] Metamyelocytes Absolute 0.70 10*3/uL LAB HEMATOLOGY METHOD 2025 6:10 AM EDT [facility] Neutrophils Absolute 20.44(H) 1.60 - 6.10 10*3/uL LAB HEMATOLOGY METHOD 2025 6:10 AM EDT [facility] Lymphocytes Absolute 0.46(L) 1.20 - 3.90 10*3/uL LAB HEMATOLOGY METHOD 2025 6:10 AM EDT [facility] Reactive Lymphocytes Absolute 0.00 10*3/uL LAB HEMATOLOGY METHOD 2025 6:10 AM EDT [facility] Monocytes Absolute 1.16(H) 0.30 - 0.90 10*3/uL LAB HEMATOLOGY METHOD 2025 6:10 AM EDT [facility] Eosinophils Absolute 0.00 0.00 - 0.50 10*3/uL LAB HEMATOLOGY METHOD 2025 6:10 AM EDT [facility] Basophils Absolute 0.00 0.00 - 0.10 10*3/uL LAB HEMATOLOGY METHOD 2025 6:10 AM EDT [facility] Blood Blood sample taken from central line / Unknown Venipuncture / Unknown 2025 4:23 AM EDT 2025 4:31 AM EDT us Jadon Rangel MD LAB BLOOD ORDERABLES Final Res ult Performing Organization Address [facility] Co de Phone Number [facility] [address] [place] [address] * (ABNORMAL) Sedimentation Rate, Automated (2025 4:23 AM EDT) Sedimentation Rate 35(H) <20 mm/hr 2024 5:25 AM EDT [facility] Blood Blood sample taken from central line / Unknown Venipuncture / Unknown 2025 4:23 AM EDT 2025 4:31 AM EDT us Jadon Rangel MD LAB BLOOD ORDERABLES Final Res ult Performing Organization Address [facility] de Phone Number [facility] [address] [place] [address] * (ABNORMAL) C-Reactive Protein, Plasma (2025 4:23 AM EDT) CRP, Plasma 94.9(H) <=8.0 mg/L 2025 5:05 AM EDT [facility] Blood Blood sample taken from central line / Unknown Venipuncture / Unknown 2025 4:23 AM EDT 2025 4:31 AM EDT Narrative [facility] - 2025 5:05 AM EDT This CRP test is appropriate for assessment of infection, systemic inflammation and/or tissue injury. To assess cardiovascular disease risk order high sensitivity CRP (CRPH). us Jadon Rangel MD LAB BLOOD ORDERABLES Final Res ult Performing Organization Address [facility] de Phone Number [facility] [address] [place] [address] * (ABNORMAL) Procalcitonin, Plasma (2025 4:23 AM EDT) Procalcitonin, Plasma 2.45(H) <0.09 ng/mL 2025 5:11 AM EDT [facility] Blood Blood sample taken from central line / Unknown Venipuncture / Unknown 2025 4:23 AM EDT 2025 4:31 AM EDT Narrative [facility] - 2025 5:11 AM EDT Procalcitonin concentrations in healthy individuals are <0.09 ng/mL. Published data support the following interpretive risk assessment: An elevated procalcitonin result does not always indicate sepsis. Various non-infectious conditions are known to increase procalcitonin. Results should be considered in the context of clinical symptoms and other laboratory tests. Procalcitonin >2.0 ng/mL: Concentrations >2.0 ng/mL on the first day of ICU admission are associated with a higher risk of progression to severe sepsis and/or septic shock. The change in PCT over time may help predict 28 day mortality risk. Please consult [email or web address] for more information. Test performed at [facility]. us Jadon Rangel MD LAB BLOOD ORDERABLES Final Res ult [facility] [address] [place] [address] * (ABNORMAL) Hepatic Function Panel (2025 4:23 AM EDT) Direct Bilirubin, Plasma <0.2 <=0.3 mg/dL 2025 5:05 AM EDT [facility] Alkaline Phosphatase, Plasma 71 40 - 115 U/L 2025 5:05 AM EDT [facility] Total Bilirubin, Plasma 0.3 0.2 - 1.1 mg/dL 2025 5:05 AM EDT [facility] Albumin, Plasma 2.0(L) 3.5 - 5.2 g/dL 2025 5:05 AM EDT [facility] Total Protein 4.5(L) 6.3 - 7.9 g/dL 2025 5:05 AM EDT [facility] ALT, Plasma 22 10 - 50 U/L 2025 5:05 AM EDT [facility] AST, Plasma 26 10 - 50 U/L 2025 5:05 AM EDT [facility] Blood Blood sample taken from central line / Unknown Venipuncture / Unknown 2025 4:23 AM EDT 2025 4:31 AM EDT us Jadon Rangel MD LAB BLOOD ORDERABLES Final Res ult [facility] [address] [place] [address] * (ABNORMAL) Basic Metabolic Panel, Plasma (2025 4:23 AM EDT) Glucose, Plasma 101(H) 74 - 99 mg/dL 2025 5:05 AM EDT [facility] BUN, Plasma 54(H) 8 - 23 mg/dL 2025 5:05 AM EDT [facility] Creatinine, Plasma 4.39(H) 0.70 - 1.20 mg/dL 2025 5:05 AM EDT [facility] BUN/Creatinine Ratio 12 2025 5:05 AM EDT [facility] Sodium, Plasma 126(L) 136 - 145 mmol/L 2025 5:05 AM EDT [facility] Potassium, Plasma 3.3(L) 3.6 - 4.9 mmol/L 2025 5:05 AM EDT [facility] Chloride, Plasma 101 97 - 107 mmol/L 2025 5:05 AM EDT [facility] CO2, Plasma 15(L) 22 - 29 mmol/L 2025 5:05 AM EDT [facility] Anion Gap 10 6 - 16 mmol/L 2025 5:05 AM EDT [facility] Total Calcium, Plasma 7.7(L) 8.9 - 10.2 mg/dL 2025 5:05 AM EDT [facility] eGFRcr 13.6 mL/min/1.7 3m*2 2025 5:05 AM EDT [facility] Comment:Reported eGFRcr in m L/min/1.73m2 is based the CKD-EPI 2020 equation that does not use a race coefficient. Blood Blood sample taken from central line / Unknown Venipuncture / Unknown 2025 4:23 AM EDT 2025 4:31 AM EDT us Jadon Rangel MD LAB BLOOD ORDERABLES Final Res ult [facility] [address] [place] [address] * (ABNORMAL) CBC and Differential (2025 4:23 AM EDT) WBC Count 23.23(H) 3.70 - 10.30 10*3/uL LAB HEMATOLOGY METHOD 2025 6:10 AM EDT [facility] RBC Count 2.92(L) 4.60 - 6.10 10*6/uL LAB HEMATOLOGY METHOD 2025 6:10 AM EDT [facility] HGB 8.7(L) 13.7 - 17.5 g/dL LAB HEMATOLOGY METHOD 2025 6:10 AM EDT [facility] HCT 25.9(L) 40.0 - 51.0 % LAB HEMATOLOGY METHOD 2025 6:10 AM EDT [facility] Platelet Count 358 155 - 369 10*3/uL LAB HEMATOLOGY METHOD 2025 6:10 AM EDT [facility] MCV 89 79 - 98 fL LAB HEMATOLOGY METHOD 2025 6:10 AM EDT [facility] MCH 29.8 26.0 - 32.0 pg LAB HEMATOLOGY METHOD 2025 6:10 AM EDT [facility] MCHC 33.6 30.7 - 35.5 g/dL LAB HEMATOLOGY METHOD 2025 6:10 AM EDT [facility] RDW 14.3 11.5 - 14.5 % LAB HEMATOLOGY METHOD 2025 6:10 AM EDT [facility] MPV 10.8 8.8 - 12.5 fL LAB HEMATOLOGY METHOD 2025 6:10 AM EDT [facility] nRBC 0.3(H) <=0.0 per 100 WBCs LAB HEMATOLOGY METHOD 2025 6:10 AM EDT [facility] Differential Type Manual LAB HEMATOLOGY METHOD 2025 6:10 AM EDT [facility] Blood Blood sample taken from central line / Unknown Venipuncture / Unknown 2025 4:23 AM EDT 2025 4:31 AM EDT Narrative [facility] - 2025 6:10 AM EDT Therapeutic decision making should be based on absolute values, rather than percentages. The previously reported component Neutrophils % is no longer being reported.The previously reported component Lymphocytes % is no longer being reported.The previously reported component Monocytes % is no longer being reported.The previously reported component Eosinophils % is no longer being reported.The previously reported component Basophils % is no longer being reported.The previously reported component Immature Granulocytes % is no longer being reported.The previously reported component Absolute Neutrophils is no longer being reported.The previously reported component Absolute Lymphocytes is no longer being reported.The previously reported component Absolute Monocytes is no longer being reported.The previously reported component Absolute Eosinophils is no longer being reported.The previously reported component Absolute Basophils is no longer being reported.The previously reported component Absolute Immature Granulocytes is no longer being reported. us Jadon Rangel MD LAB BLOOD ORDERABLES Final Res ult [facility] [address] [place] [address] * Magnesium, Plasma (2025 4:23 AM EDT) Magnesium, Plasma 2.0 1.9 - 2.4 mg/dL 2025 5:05 AM EDT [facility] Blood Blood sample taken from central line / Unknown Venipuncture / Unknown 2025 4:23 AM EDT 2025 4:31 AM EDT us Jadon Rangel MD LAB BLOOD ORDERABLES Final Res ult Performing Organization Address [facility] Co de Phone Number [facility] [address] [place] [id number] * Phosphorus, Plasma (2025 4:23 AM EDT) Phosphorus, Plasma 3.8 2.5 - 4.5 mg/dL 2025 5:05 AM EDT [facility] Blood Blood sample taken from central line / Unknown Venipuncture / Unknown 2025 4:23 AM EDT 2025 4:31 AM EDT us Jadon Rangel MD LAB BLOOD ORDERABLES Final Res ult Performing Organization Address [facility] Co de Phone Number [facility] [address] [place] [address] * US Renal Complete (08/30/2025 4:07 PM EDT) Anatomical Region Laterality Modality Kidney Ultrasound Impressions 08/30/2025 4:26 PM EDT No hydronephrosis CRITICAL RESULT: No. COMMUNICATION: Per this written report. Drafted by Adal Vang MD on 08/30/2025 4:26 PM Final report signed by Adal Vang MD on 08/30/2025 4:26 PM Narrative 08/30/2025 4:26 PM EDT CLINICAL INDICATION: Kidney injury. TECHNIQUE: Multiplanar oliveira scale sonographic imaging of the kidneys. COMPARISON: None. FINDINGS: Right Kidney: The right kidney is normal in size and echogenicity measuring 10.8 cm. No hydronephrosis. No contour deforming masses. No obvious calculi. Left Kidney: The left kidney is normal in size and echogenicity measuring 10.4 cm. No hydronephrosis. No contour deforming masses. No obvious calculi. Bladder: Partially decompressed without obvious abnormality. Procedure Note Saam, Trustin A, MD - 08/30/2025 CLINICAL INDICATION: Kidney injury. TECHNIQUE: Multiplanar oliveira scale sonographic imaging of the kidneys. COMPARISON: None. FINDINGS: Right Kidney: The right kidney is normal in size and echogenicitymeasuring 10.8 cm. No hydronephrosis. No contour deforming masses. Noobvious calculi. Left Kidney: The left kidney is normal in size and echogenicity [id number] cm. No hydronephrosis. No contour deforming masses. No obviouscalculi. Bladder: Partially decompressed without obvious abnormality. IMPRESSION: No hydronephrosis CRITICAL RESULT: No. COMMUNICATION: Per this written report. Drafted by Adal Vang MD on 08/30/2025 4:26 PM Final report signed by Aadl Vang MD on 08/30/2025 4:26 PM us Sheyla Malagon MD IMG US PROCEDURES Final Result * Urinalysis Microscopic Examination (08/30/2025 3:26 PM EDT) Urine Urine specimen obtained by clean catch procedure / Unknown Non-blood Collection / Unknown 08/30/2025 3:26 PM EDT 08/30/2025 4:24 PM EDT us Sheyla Malagon MD LAB URINE ORDERABLES Final Resu lt Performing Organization Address [facility] Co de Phone Number [facility] [address] [place] [address] * Urine Oliveira Panel (08/30/2025 3:26 PM EDT) Extra Reflex urine culture not indicated 08/30/2025 6:01 PM EDT [facility] Urine Urine specimen obtained by clean catch procedure / Unknown Non-blood Collection / Unknown 08/30/2025 3:26 PM EDT 08/30/2025 4:24 PM EDT us Sheyla Malagon MD LAB URINE ORDERABLES Final Resu lt Performing Organization Address City/[facility] Co de Phone Number [facility] [address] [place] [address] * (ABNORMAL) Urinalysis with reflex microscopic (Culture NOT Included) (08/30/2025 3:26 PM EDT) Color, Urine Dark Yellow LAB URINALYSIS - AUTOMATED METHOD 08/30/2025 4:37 PM EDT [facility] Clarity, Urine Clear LAB URINALYSIS - AUTOMATED METHOD 08/30/2025 4:37 PM EDT [facility] Spec [place], Urine 1.028 1.005 - 1.030 LAB URINALYSIS - AUTOMATED METHOD 08/30/2025 4:37 PM EDT [facility] pH, Urine 6.0 5.0 - 8.0 LAB URINALYSIS - AUTOMATED METHOD 08/30/2025 4:37 PM EDT [facility] Protein, Urine 30(A) Negative mg/dL LAB URINALYSIS - AUTOMATED METHOD 08/30/2025 4:37 PM EDT [facility] Glucose, Urine Negative Negative mg/dL LAB URINALYSIS - AUTOMATED METHOD 08/30/2025 4:37 PM EDT [facility] Ketones, Urine Trace(A) Negative mg/dL LAB URINALYSIS - AUTOMATED METHOD 08/30/2025 4:37 PM EDT [facility] Blood, Urine Large(A) Negative LAB URINALYSIS - AUTOMATED METHOD 08/30/2025 4:37 PM EDT [facility] Bilirubin, Urine Negative Negative LAB URINALYSIS - AUTOMATED METHOD 08/30/2025 4:37 PM EDT [facility] Urobilinogen, Urine 0.2 0.2 to 1.0 mg/dL LAB URINALYSIS - AUTOMATED METHOD 08/30/2025 4:37 PM EDT [facility] Leukocytes, Urine Negative Negative LAB URINALYSIS - AUTOMATED METHOD 08/30/2025 4:37 PM EDT [facility] Nitrite, Urine Negative Negative LAB URINALYSIS - AUTOMATED METHOD 08/30/2025 4:37 PM EDT [facility] RBC, Urine >50(A) 0 to 3 /HPF LAB URINALYSIS - AUTOMATED METHOD 08/30/2025 4:37 PM EDT [facility] WBC, Urine 0 - 5 0 to 5 /HPF LAB URINALYSIS - AUTOMATED METHOD 08/30/2025 4:37 PM EDT [facility] Squamous Epithelial Cells 3 - 5 0 to 5 /HPF LAB URINALYSIS - AUTOMATED METHOD 08/30/2025 4:37 PM EDT [facility] Hyaline Casts 0 - 2 0 to 5 /LPF LAB URINALYSIS - AUTOMATED METHOD 08/30/2025 4:37 PM EDT [facility] Bacteria, Urine Negative Negative LAB URINALYSIS - AUTOMATED METHOD 08/30/2025 4:37 PM EDT [facility] Urine Urine specimen obtained by clean catch procedure / Unknown Non-blood Collection / Unknown 08/30/2025 3:26 PM EDT 08/30/2025 4:24 PM EDT us Sheyla Malagon MD LAB URINE ORDERABLES Final Resu lt Performing Organization Address [facility] Co de Phone Number [facility] [address] [place] [address] * Morphology (08/30/2025 1:03 AM EDT) Echinocytes Present LAB HEMATOLOGY METHOD 08/30/2025 3:19 AM EDT [facility] Elliptocytes/O valocytes Present LAB HEMATOLOGY METHOD 08/30/2025 3:19 AM EDT [facility] RBC Morphology Slide Reviewed LAB HEMATOLOGY METHOD 08/30/2025 3:19 AM EDT [facility] Platelet Estimate Platelet smear estimate consistent with automated count LAB HEMATOLOGY METHOD 08/30/2025 3:19 AM EDT [facility] Blood Blood sample taken from central line / Unknown Venipuncture / Unknown 08/30/2025 1:03 AM EDT 08/30/2025 1:11 AM EDT us Jadon Rangel MD LAB BLOOD ORDERABLES Final Res ult Performing Organization Address [facility]/ZIP Co de Phone Number [facility] [address] [place] [address] * (ABNORMAL) Manual Differential (08/30/2025 1:03 AM EDT) Blasts % 0 % LAB HEMATOLOGY METHOD 08/30/2025 3:19 AM EDT [facility] Promyelocytes % 0 % LAB HEMATOLOGY METHOD 08/30/2025 3:19 AM EDT [facility] Myelocytes % 6 % LAB HEMATOLOGY METHOD 08/30/2025 3:19 AM EDT [facility] Metamyelocytes % 4 % LAB HEMATOLOGY METHOD 08/30/2025 3:19 AM EDT [facility] Neutrophils % 85 % LAB HEMATOLOGY METHOD 08/30/2025 3:19 AM EDT [facility] Lymphocytes % 1 % LAB HEMATOLOGY METHOD 08/30/2025 3:19 AM EDT [facility] Reactive Lymphocytes % 0 % LAB HEMATOLOGY METHOD 08/30/2025 3:19 AM EDT [facility] Monocytes % 3 % LAB HEMATOLOGY METHOD 08/30/2025 3:19 AM EDT [facility] Eosinophils % 0 % LAB HEMATOLOGY METHOD 08/30/2025 3:19 AM EDT [facility] Basophils % 1 % LAB HEMATOLOGY METHOD 08/30/2025 3:19 AM EDT [facility] Blasts Absolute 0.00 10*3/UL LAB HEMATOLOGY METHOD 08/30/2025 3:19 AM EDT [facility] Promyelocytes Absolute 0.00 10*3/uL LAB HEMATOLOGY METHOD 08/30/2025 3:19 AM EDT [facility] Myelocytes Absolute 1.09 10*3/uL LAB HEMATOLOGY METHOD 08/30/2025 3:19 AM EDT [facility] Metamyelocytes Absolute 0.73 10*3/uL LAB HEMATOLOGY METHOD 08/30/2025 3:19 AM EDT [facility] Neutrophils Absolute 15.50(H) 1.60 - 6.10 10*3/uL LAB HEMATOLOGY METHOD 08/30/2025 3:19 AM EDT [facility] Lymphocytes Absolute 0.18(L) 1.20 - 3.90 10*3/uL LAB HEMATOLOGY METHOD 08/30/2025 3:19 AM EDT [facility] Reactive Lymphocytes Absolute 0.00 10*3/uL LAB HEMATOLOGY METHOD 08/30/2025 3:19 AM EDT [facility] Monocytes Absolute 0.55 0.30 - 0.90 10*3/uL LAB HEMATOLOGY METHOD 08/30/2025 3:19 AM EDT [facility] Eosinophils Absolute 0.00 0.00 - 0.50 10*3/uL LAB HEMATOLOGY METHOD 08/30/2025 3:19 AM EDT [facility] Basophils Absolute 0.18(H) 0.00 - 0.10 10*3/uL LAB HEMATOLOGY METHOD 08/30/2025 3:19 AM EDT [facility] Blood Blood sample taken from central line / Unknown Venipuncture / Unknown 08/30/2025 1:03 AM EDT 08/30/2025 1:11 AM EDT us Jadon Rangel MD LAB BLOOD ORDERABLES Final Res ult Performing Organization Address City/[facility]/ZIP Co de Phone Number [facility] [address] [place] [address] * (ABNORMAL) Sedimentation Rate, Automated (08/30/2025 1:03 AM EDT) Sedimentation Rate 40(H) <20 mm/hr 2024 1:46 AM EDT [facility] Blood Blood sample taken from central line / Unknown Venipuncture / Unknown 08/30/2025 1:03 AM EDT 08/30/2025 1:11 AM EDT us Jadon Rangel MD LAB BLOOD ORDERABLES Final Res ult Performing Organization Address [facility]/ZIP Co de Phone Number [facility] [address] [place] [address] * (ABNORMAL) C-Reactive Protein, Plasma (08/30/2025 1:03 AM EDT) CRP, Plasma 68.5(H) <=8.0 mg/L 08/30/2025 1:42 AM EDT [facility] Blood Blood sample taken from central line / Unknown Venipuncture / Unknown 08/30/2025 1:03 AM EDT 08/30/2025 1:11 AM EDT Narrative [facility] - 08/30/2025 1:42 AM EDT This CRP test is appropriate for assessment of infection, systemic inflammation and/or tissue injury. To assess cardiovascular disease risk order high sensitivity CRP (CRPH). Jadon Rangel MD LAB BLOOD ORDERABLES Final Res ult Performing Organization Address [facility] Co de Phone Number [facility] [address] [place] [address] * (ABNORMAL) Procalcitonin, Plasma (08/30/2025 1:03 AM EDT) Procalcitonin, Plasma 4.17(H) <0.09 ng/mL 08/30/2025 1:47 AM EDT [facility] Blood Blood sample taken from central line / Unknown Venipuncture / Unknown 08/30/2025 1:03 AM EDT 08/30/2025 1:11 AM EDT Narrative [facility] - 08/30/2025 1:47 AM EDT Procalcitonin concentrations in healthy individuals are <0.09 ng/mL. Published data support the following interpretive risk assessment: An elevated procalcitonin result does not always indicate sepsis. Various non-infectious conditions are known to increase procalcitonin. Results should be considered in the context of clinical symptoms and other laboratory tests. Procalcitonin >2.0 ng/mL: Concentrations >2.0 ng/mL on the first day of ICU admission are associated with a higher risk of progression to severe sepsis and/or septic shock. The change in PCT over time may help predict 28 day mortality risk. Please consult www.jqduzj-voz-azxfxijxux.com for more information. Test performed at [facility]. us Jadon Rangel MD LAB BLOOD ORDERABLES Final Res ult Performing Organization Address [facility]/ZIP Co de Phone Number [facility] [address] [place] [address] * (ABNORMAL) Hepatic Function Panel (08/30/2025 1:03 AM EDT) Direct Bilirubin, Plasma <0.2 <=0.3 mg/dL 08/30/2025 1:42 AM EDT [facility] Comment:Hemolyzed, result ma y be falsely decreased. Alkaline Phosphatase, Plasma 66 40 - 115 U/L 08/30/2025 1:42 AM EDT [facility] Total Bilirubin, Plasma 0.3 0.2 - 1.1 mg/dL 08/30/2025 1:42 AM EDT [facility] Albumin, Plasma 2.2(L) 3.5 - 5.2 g/dL 08/30/2025 1:42 AM EDT [facility] Total Protein 4.7(L) 6.3 - 7.9 g/dL 08/30/2025 1:42 AM EDT [facility] ALT, Plasma 20 10 - 50 U/L 08/30/2025 1:42 AM EDT [facility] AST, Plasma 27 10 - 50 U/L 08/30/2025 1:42 AM EDT [facility] Comment:Hemolyzed, result ma y be falsely increased. Blood Blood sample taken from central line / Unknown Venipuncture / Unknown 08/30/2025 1:03 AM EDT 08/30/2025 1:11 AM EDT us Jadon Rangel MD LAB BLOOD ORDERABLES Final Res ult [facility] [address] [place] [address] * (ABNORMAL) Basic Metabolic Panel, Plasma (08/30/2025 1:03 AM EDT) Glucose, Plasma 128(H) 74 - 99 mg/dL 08/30/2025 1:42 AM EDT [facility] BUN, Plasma 45(H) 8 - 23 mg/dL 08/30/2025 1:42 AM EDT [facility] Creatinine, Plasma 3.66(H) 0.70 - 1.20 mg/dL 08/30/2025 1:42 AM EDT [facility] BUN/Creatinine Ratio 12 08/30/2025 1:42 AM EDT [facility] Sodium, Plasma 128(L) 136 - 145 mmol/L 08/30/2025 1:42 AM EDT [facility] Potassium, Plasma 3.7 3.6 - 4.9 mmol/L 08/30/2025 1:42 AM EDT [facility] Chloride, Plasma 104 97 - 107 mmol/L 08/30/2025 1:42 AM EDT [facility] CO2, Plasma 15(L) 22 - 29 mmol/L 08/30/2025 1:42 AM EDT [facility] Anion Gap 9 6 - 16 mmol/L 08/30/2025 1:42 AM EDT [facility] Total Calcium, Plasma 7.6(L) 8.9 - 10.2 mg/dL 08/30/2025 1:42 AM EDT [facility] eGFRcr 17.1 mL/min/1.7 3m*2 08/30/2025 1:42 AM EDT [facility] Comment:Reported eGFRcr in m L/min/1.73m2 is based the CKD-EPI 2020 equation that does not use a race coefficient. Blood Blood sample taken from central line / Unknown Venipuncture / Unknown 08/30/2025 1:03 AM EDT 08/30/2025 1:11 AM EDT us Jadon Rangel MD LAB BLOOD ORDERABLES Final Res ult [facility] [address] [place] [address] * (ABNORMAL) CBC and Differential (08/30/2025 1:03 AM EDT) WBC Count 18.23(H) 3.70 - 10.30 10*3/uL LAB HEMATOLOGY METHOD 08/30/2025 3:20 AM EDT [facility] RBC Count 3.14(L) 4.60 - 6.10 10*6/uL LAB HEMATOLOGY METHOD 08/30/2025 3:20 AM EDT [facility] HGB 9.3(L) 13.7 - 17.5 g/dL LAB HEMATOLOGY METHOD 08/30/2025 3:20 AM EDT [facility] HCT 27.4(L) 40.0 - 51.0 % LAB HEMATOLOGY METHOD 08/30/2025 3:20 AM EDT [facility] Platelet Count 332 155 - 369 10*3/uL LAB HEMATOLOGY METHOD 08/30/2025 3:20 AM EDT [facility] MCV 87 79 - 98 fL LAB HEMATOLOGY METHOD 08/30/2025 3:20 AM EDT [facility] MCH 29.6 26.0 - 32.0 pg LAB HEMATOLOGY METHOD 08/30/2025 3:20 AM EDT [facility] MCHC 33.9 30.7 - 35.5 g/dL LAB HEMATOLOGY METHOD 08/30/2025 3:20 AM EDT [facility] RDW 14.0 11.5 - 14.5 % LAB HEMATOLOGY METHOD 08/30/2025 3:20 AM EDT [facility] MPV 10.9 8.8 - 12.5 fL LAB HEMATOLOGY METHOD 08/30/2025 3:20 AM EDT [facility] nRBC 0.4(H) <=0.0 per 100 WBCs LAB HEMATOLOGY METHOD 08/30/2025 3:20 AM EDT [facility] Differential Type Manual LAB HEMATOLOGY METHOD 08/30/2025 3:20 AM EDT [facility] Blood Blood sample taken from central line / Unknown Venipuncture / Unknown 08/30/2025 1:03 AM EDT 08/30/2025 1:11 AM EDT Narrative [facility] - 08/30/2025 3:20 AM EDT Therapeutic decision making should be based on absolute values, rather than percentages. The previously reported component Neutrophils % is no longer being reported.The previously reported component Lymphocytes % is no longer being reported.The previously reported component Monocytes % is no longer being reported.The previously reported component Eosinophils % is no longer being reported.The previously reported component Basophils % is no longer being reported.The previously reported component Immature Granulocytes % is no longer being reported.The previously reported component Absolute Neutrophils is no longer being reported.The previously reported component Absolute Lymphocytes is no longer being reported.The previously reported component Absolute Monocytes is no longer being reported.The previously reported component Absolute Eosinophils is no longer being reported.The previously reported component Absolute Basophils is no longer being reported.The previously reported component Absolute Immature Granulocytes is no longer being reported. us Jadon Rangel MD LAB BLOOD ORDERABLES Final Res ult Performing Organization Address [facility] Co de Phone Number [facility] [address] [place] [address] * Magnesium, Plasma (08/30/2025 1:03 AM EDT) Magnesium, Plasma 2.2 1.9 - 2.4 mg/dL 08/30/2025 1:42 AM EDT [facility] Blood Blood sample taken from central line / Unknown Venipuncture / Unknown 08/30/2025 1:03 AM EDT 08/30/2025 1:11 AM EDT us Jadon Rangel MD LAB BLOOD ORDERABLES Final Res ult Performing Organization Address [facility] Co de Phone Number [facility] [address] [place] [address] * Phosphorus, Plasma (08/30/2025 1:03 AM EDT) Pathologist [facility] Phosphorus, Plasma 3.1 2.5 - 4.5 mg/dL 08/30/2025 1:42 AM EDT [facility] Blood Blood sample taken from central line / Unknown Venipuncture / Unknown 08/30/2025 1:03 AM EDT 08/30/2025 1:11 AM EDT us Jadon Rangel MD LAB BLOOD ORDERABLES Final Res ult Performing Organization Address [facility] Co de Phone Number [facility] [address] [place] [address] * (ABNORMAL) Morphology (08/29/2025 3:03 AM EDT) Pathologist [facility] RBC Fragments/Schi stocytes Slight(A) (none) LAB HEMATOLOGY METHOD 08/29/2025 5:48 AM EDT [facility] Echinocytes Present LAB HEMATOLOGY METHOD 08/29/2025 5:48 AM EDT [facility] RBC Morphology Slide Reviewed LAB HEMATOLOGY METHOD 08/29/2025 5:48 AM EDT [facility] Platelet Estimate Platelet smear estimate consistent with automated count LAB HEMATOLOGY METHOD 08/29/2025 5:48 AM EDT [facility] Blood Venous blood specimen / Unknown Venipuncture / Unknown 08/29/2025 3:03 AM EDT 08/29/2025 3:09 AM EDT us Jadon Rangel MD LAB BLOOD ORDERABLES Final Res ult [facility] [address] [place] [address] * (ABNORMAL) Manual Differential (08/29/2025 3:03 AM EDT) Blasts % 0 % LAB HEMATOLOGY METHOD 08/29/2025 5:48 AM EDT [facility] Promyelocytes % 0 % LAB HEMATOLOGY METHOD 08/29/2025 5:48 AM EDT [facility] Myelocytes % 3 % LAB HEMATOLOGY METHOD 08/29/2025 5:48 AM EDT [facility] Metamyelocytes % 2 % LAB HEMATOLOGY METHOD 08/29/2025 5:48 AM EDT [facility] Neutrophils % 87 % LAB HEMATOLOGY METHOD 08/29/2025 5:48 AM EDT [facility] Lymphocytes % 3 % LAB HEMATOLOGY METHOD 08/29/2025 5:48 AM EDT [facility] Reactive Lymphocytes % 1 % LAB HEMATOLOGY METHOD 08/29/2025 5:48 AM EDT [facility] Monocytes % 4 % LAB HEMATOLOGY METHOD 08/29/2025 5:48 AM EDT [facility] Eosinophils % 0 % LAB HEMATOLOGY METHOD 08/29/2025 5:48 AM EDT [facility] Basophils % 0 % LAB HEMATOLOGY METHOD 08/29/2025 5:48 AM EDT [facility] Blasts Absolute 0.00 10*3/UL LAB HEMATOLOGY METHOD 08/29/2025 5:48 AM EDT [facility] Promyelocytes Absolute 0.00 10*3/uL LAB HEMATOLOGY METHOD 08/29/2025 5:48 AM EDT [facility] Myelocytes Absolute 0.40 10*3/uL LAB HEMATOLOGY METHOD 08/29/2025 5:48 AM EDT [facility] Metamyelocytes Absolute 0.27 10*3/uL LAB HEMATOLOGY METHOD 08/29/2025 5:48 AM EDT [facility] Neutrophils Absolute 11.62(H) 1.60 - 6.10 10*3/uL LAB HEMATOLOGY METHOD 08/29/2025 5:48 AM EDT [facility] Lymphocytes Absolute 0.40(L) 1.20 - 3.90 10*3/uL LAB HEMATOLOGY METHOD 08/29/2025 5:48 AM EDT [facility] Reactive Lymphocytes Absolute 0.13 10*3/uL LAB HEMATOLOGY METHOD 08/29/2025 5:48 AM EDT [facility] Monocytes Absolute 0.53 0.30 - 0.90 10*3/uL LAB HEMATOLOGY METHOD 08/29/2025 5:48 AM EDT [facility] Eosinophils Absolute 0.00 0.00 - 0.50 10*3/uL LAB HEMATOLOGY METHOD 08/29/2025 5:48 AM EDT [facility] Basophils Absolute 0.00 0.00 - 0.10 10*3/uL LAB HEMATOLOGY METHOD 08/29/2025 5:48 AM EDT [facility] Blood Venous blood specimen / Unknown Venipuncture / Unknown 08/29/2025 3:03 AM EDT 08/29/2025 3:09 AM EDT us Jadon Rangel MD LAB BLOOD ORDERABLES Final Res ult Performing Organization Address City/[facility]/ZIP Co de Phone Number [facility] [address] [place] [address] * (ABNORMAL) Sedimentation Rate, Automated (08/29/2025 3:03 AM EDT) Sedimentation Rate 46(H) <20 mm/hr 2024 3:37 AM EDT [facility] Blood Venous blood specimen / Unknown Venipuncture / Unknown 08/29/2025 3:03 AM EDT 08/29/2025 3:09 AM EDT us Jadon Rangel MD LAB BLOOD ORDERABLES Final Res ult [facility] [address] [place] [address] * (ABNORMAL) C-Reactive Protein, Plasma (08/29/2025 3:03 AM EDT) CRP, Plasma 104.0(H) <=8.0 mg/L 08/29/2025 3:41 AM EDT [facility] Blood Venous blood specimen / Unknown Venipuncture / Unknown 08/29/2025 3:03 AM EDT 08/29/2025 3:09 AM EDT [facility] - 08/29/2025 3:41 AM EDT This CRP test is appropriate for assessment of infection, systemic inflammation and/or tissue injury. To assess cardiovascular disease risk order high sensitivity CRP (CRPH). us Jadon Rangel MD LAB BLOOD ORDERABLES Final Res ult [facility] [address] [place] [address] * (ABNORMAL) Procalcitonin, Plasma (08/29/2025 3:03 AM EDT) Procalcitonin, Plasma 6.82(H) <0.09 ng/mL 08/29/2025 3:47 AM EDT [facility] Blood Venous blood specimen / Unknown Venipuncture / Unknown 08/29/2025 3:03 AM EDT 08/29/2025 3:09 AM EDT [facility] - 08/29/2025 3:47 AM EDT Procalcitonin concentrations in healthy individuals are <0.09 ng/mL. Published data support the following interpretive risk assessment: An elevated procalcitonin result does not always indicate sepsis. Various non-infectious conditions are known to increase procalcitonin. Results should be considered in the context of clinical symptoms and other laboratory tests. Procalcitonin >2.0 ng/mL: Concentrations >2.0 ng/mL on the first day of ICU admission are associated with a higher risk of progression to severe sepsis and/or septic shock. The change in PCT over time may help predict 28 day mortality risk. Please consult [email or web address] for more information. Test performed at [facility], [facility]. us Jadon Rangel MD LAB BLOOD ORDERABLES Final Res ult Performing Organization Address [facility] Co de Phone Number [facility] [address] [place] [address] * (ABNORMAL) Hepatic Function Panel (08/29/2025 3:03 AM EDT) Direct Bilirubin, Plasma <0.2 <=0.3 mg/dL 08/29/2025 3:41 AM EDT [facility] Alkaline Phosphatase, Plasma 61 40 - 115 U/L 08/29/2025 3:41 AM EDT [facility] Total Bilirubin, Plasma 0.3 0.2 - 1.1 mg/dL 08/29/2025 3:41 AM EDT [facility] Albumin, Plasma 2.0(L) 3.5 - 5.2 g/dL 08/29/2025 3:41 AM EDT [facility] Total Protein 4.4(L) 6.3 - 7.9 g/dL 08/29/2025 3:41 AM EDT [facility] ALT, Plasma 19 10 - 50 U/L 08/29/2025 3:41 AM EDT [facility] AST, Plasma 21 10 - 50 U/L 08/29/2025 3:41 AM EDT [facility] Comment:Hemolyzed, result ma y be falsely increased. Blood Venous blood specimen / Unknown Venipuncture / Unknown 08/29/2025 3:03 AM EDT 08/29/2025 3:09 AM EDT us Jadon Rangel MD LAB BLOOD ORDERABLES Final Res ult Performing Organization Address [facility]/ZIP Co de Phone Number [facility] [address] [place] [address] * (ABNORMAL) Basic Metabolic Panel, Plasma (08/29/2025 3:03 AM EDT) Glucose, Plasma 113(H) 74 - 99 mg/dL 08/29/2025 3:41 AM EDT [facility] BUN, Plasma 43(H) 8 - 23 mg/dL 08/29/2025 3:41 AM EDT [facility] Creatinine, Plasma 2.40(H) 0.70 - 1.20 mg/dL 08/29/2025 3:41 AM EDT [facility] BUN/Creatinine Ratio 18 08/29/2025 3:41 AM EDT [facility] Sodium, Plasma 133(L) 136 - 145 mmol/L 08/29/2025 3:41 AM EDT [facility] Potassium, Plasma 3.6 3.6 - 4.9 mmol/L 08/29/2025 3:41 AM EDT [facility] Chloride, Plasma 106 97 - 107 mmol/L 08/29/2025 3:41 AM EDT [facility] CO2, Plasma 17(L) 22 - 29 mmol/L 08/29/2025 3:41 AM EDT [facility] Anion Gap 10 6 - 16 mmol/L 08/29/2025 3:41 AM EDT [facility] Total Calcium, Plasma 7.8(L) 8.9 - 10.2 mg/dL 08/29/2025 3:41 AM EDT [facility] eGFRcr 28.3 mL/min/1.7 3m*2 08/29/2025 3:41 AM EDT [facility] Comment:Reported eGFRcr in m L/min/1.73m2 is based the CKD-EPI 2020 equation that does not use a race coefficient. Blood Venous blood specimen / Unknown Venipuncture / Unknown 08/29/2025 3:03 AM EDT 08/29/2025 3:09 AM EDT us Jadon Rangel MD LAB BLOOD ORDERABLES Final Res ult [facility] [address] [place] [address] * (ABNORMAL) CBC and Differential (08/29/2025 3:03 AM EDT) WBC Count 13.36(H) 3.70 - 10.30 10*3/uL LAB HEMATOLOGY METHOD 08/29/2025 5:48 AM EDT [facility] RBC Count 2.94(L) 4.60 - 6.10 10*6/uL LAB HEMATOLOGY METHOD 08/29/2025 5:48 AM EDT [facility] HGB 8.7(L) 13.7 - 17.5 g/dL LAB HEMATOLOGY METHOD 08/29/2025 5:48 AM EDT [facility] HCT 25.8(L) 40.0 - 51.0 % LAB HEMATOLOGY METHOD 08/29/2025 5:48 AM EDT [facility] Platelet Count 244 155 - 369 10*3/uL LAB HEMATOLOGY METHOD 08/29/2025 5:48 AM EDT [facility] MCV 88 79 - 98 fL LAB HEMATOLOGY METHOD 08/29/2025 5:48 AM EDT [facility] MCH 29.6 26.0 - 32.0 pg LAB HEMATOLOGY METHOD 08/29/2025 5:48 AM EDT [facility] MCHC 33.7 30.7 - 35.5 g/dL LAB HEMATOLOGY METHOD 08/29/2025 5:48 AM EDT [facility] RDW 13.7 11.5 - 14.5 % LAB HEMATOLOGY METHOD 08/29/2025 5:48 AM EDT [facility] MPV 10.9 8.8 - 12.5 fL LAB HEMATOLOGY METHOD 08/29/2025 5:48 AM EDT [facility] nRBC 0.2(H) <=0.0 per 100 WBCs LAB HEMATOLOGY METHOD 08/29/2025 5:48 AM EDT [facility] Differential Type Manual LAB HEMATOLOGY METHOD 08/29/2025 5:48 AM EDT [facility] Blood Venous blood specimen / Unknown Venipuncture / Unknown 08/29/2025 3:03 AM EDT 08/29/2025 3:09 AM EDT Narrative [facility] - 08/29/2025 5:48 AM EDT Therapeutic decision making should be based on absolute values, rather than percentages. The previously reported component Neutrophils % is no longer being reported.The previously reported component Lymphocytes % is no longer being reported.The previously reported component Monocytes % is no longer being reported.The previously reported component Eosinophils % is no longer being reported.The previously reported component Basophils % is no longer being reported.The previously reported component Immature Granulocytes % is no longer being reported.The previously reported component Absolute Neutrophils is no longer being reported.The previously reported component Absolute Lymphocytes is no longer being reported.The previously reported component Absolute Monocytes is no longer being reported.The previously reported component Absolute Eosinophils is no longer being reported.The previously reported component Absolute Basophils is no longer being reported.The previously reported component Absolute Immature Granulocytes is no longer being reported. us Jadon Rangel MD LAB BLOOD ORDERABLES Final Res ult Performing Organization Address City/[facility] Co de Phone Number [facility] [address] [place] [address] * Magnesium, Plasma (08/29/2025 3:03 AM EDT) Magnesium, Plasma 2.2 1.9 - 2.4 mg/dL 08/29/2025 3:41 AM EDT [facility] Blood Venous blood specimen / Unknown Venipuncture / Unknown 08/29/2025 3:03 AM EDT 08/29/2025 3:09 AM EDT us Jadon Rangel MD LAB BLOOD ORDERABLES Final Res ult Performing Organization Address [facility] [place] [place] [address] * Phosphorus, Plasma (08/29/2025 3:03 AM EDT) Phosphorus, Plasma 2.8 2.5 - 4.5 mg/dL 08/29/2025 3:41 AM EDT [facility] Blood Venous blood specimen / Unknown Venipuncture / Unknown 08/29/2025 3:03 AM EDT 08/29/2025 3:09 AM EDT us Jadon Rangel MD LAB BLOOD ORDERABLES Final Res ult Performing Organization Address City/[facility] [place] [place] [address] * (ABNORMAL) Sedimentation Rate, Automated (08/28/2025 4:47 AM EDT) Sedimentation Rate 46(H) <20 mm/hr 2024 5:26 AM EDT [facility] Blood Venous blood specimen / Unknown Venipuncture / Unknown 08/28/2025 4:47 AM EDT 08/28/2025 5:05 AM EDT us Jadon Rangel MD LAB BLOOD ORDERABLES Final Res ult Performing Organization Address [facility] de Phone Number [facility] [address] [place] [address] * (ABNORMAL) C-Reactive Protein, Plasma (08/28/2025 4:47 AM EDT) Pathologist [facility] CRP, Plasma 185.0(H) <=8.0 mg/L 08/28/2025 5:36 AM EDT [facility] Blood Venous blood specimen / Unknown Venipuncture / Unknown 08/28/2025 4:47 AM EDT 08/28/2025 5:04 AM EDT Narrative [facility] - 08/28/2025 5:36 AM EDT This CRP test is appropriate for assessment of infection, systemic inflammation and/or tissue injury. To assess cardiovascular disease risk order high sensitivity CRP (CRPH). us Jadon Rangel MD LAB BLOOD ORDERABLES Final Res ult Performing Organization Address [facility] [place] [address] * (ABNORMAL) Procalcitonin, Plasma (08/28/2025 4:47 AM EDT) Procalcitonin, Plasma 10.70(H) <0.09 ng/mL 08/28/2025 5:42 AM EDT [facility] Blood Venous blood specimen / Unknown Venipuncture / Unknown 08/28/2025 4:47 AM EDT 08/28/2025 5:04 AM EDT Narrative [facility] - 08/28/2025 5:42 AM EDT Procalcitonin concentrations in healthy individuals are <0.09 ng/mL. Published data support the following interpretive risk assessment: An elevated procalcitonin result does not always indicate sepsis. Various non-infectious conditions are known to increase procalcitonin. Results should be considered in the context of clinical symptoms and other laboratory tests. Procalcitonin >2.0 ng/mL: Concentrations >2.0 ng/mL on the first day of ICU admission are associated with a higher risk of progression to severe sepsis and/or septic shock. The change in PCT over time may help predict 28 day mortality risk. Please consult [email or web address] for more information. Test performed at [facility], [facility]. us Jadon Rangel MD LAB BLOOD ORDERABLES Final Res ult [facility] [address] [place] [address] * (ABNORMAL) Hepatic Function Panel (08/28/2025 4:47 AM EDT) Direct Bilirubin, Plasma <0.2 <=0.3 mg/dL 08/28/2025 5:36 AM EDT [facility] Alkaline Phosphatase, Plasma 55 40 - 115 U/L 08/28/2025 5:36 AM EDT [facility] Total Bilirubin, Plasma 0.3 0.2 - 1.1 mg/dL 08/28/2025 5:36 AM EDT [facility] Albumin, Plasma 2.0(L) 3.5 - 5.2 g/dL 08/28/2025 5:36 AM EDT [facility] Total Protein 4.3(L) 6.3 - 7.9 g/dL 08/28/2025 5:36 AM EDT [facility] ALT, Plasma 24 10 - 50 U/L 08/28/2025 5:36 AM EDT [facility] AST, Plasma 24 10 - 50 U/L 08/28/2025 5:36 AM EDT [facility] Blood Venous blood specimen / Unknown Venipuncture / Unknown 08/28/2025 4:47 AM EDT 08/28/2025 5:04 AM EDT us Jadon Rangel MD LAB BLOOD ORDERABLES Final Res ult [facility] [address] [place] [address] * (ABNORMAL) Basic Metabolic Panel, Plasma (08/28/2025 4:47 AM EDT) Glucose, Plasma 101(H) 74 - 99 mg/dL 08/28/2025 5:36 AM EDT [facility] BUN, Plasma 33(H) 8 - 23 mg/dL 08/28/2025 5:36 AM EDT [facility] Creatinine, Plasma 1.09 0.70 - 1.20 mg/dL 08/28/2025 5:36 AM EDT [facility] BUN/Creatinine Ratio 30 08/28/2025 5:36 AM EDT [facility] Sodium, Plasma 134(L) 136 - 145 mmol/L 08/28/2025 5:36 AM EDT [facility] Potassium, Plasma 3.6 3.6 - 4.9 mmol/L 08/28/2025 5:36 AM EDT [facility] Chloride, Plasma 106 97 - 107 mmol/L 08/28/2025 5:36 AM EDT [facility] CO2, Plasma 20(L) 22 - 29 mmol/L 08/28/2025 5:36 AM EDT [facility] Anion Gap 8 6 - 16 mmol/L 08/28/2025 5:36 AM EDT [facility] Total Calcium, Plasma 7.7(L) 8.9 - 10.2 mg/dL 08/28/2025 5:36 AM EDT [facility] eGFRcr 73.0 mL/min/1.7 3m*2 08/28/2025 5:36 AM EDT [facility] Comment:Reported eGFRcr in m L/min/1.73m2 is based the CKD-EPI 2020 equation that does not use a race coefficient. Blood Venous blood specimen / Unknown Venipuncture / Unknown 08/28/2025 4:47 AM EDT 08/28/2025 5:04 AM EDT us Jadon Rangel MD LAB BLOOD ORDERABLES Final Res ult [facility] [address] [place] [address] * (ABNORMAL) CBC and Differential (08/28/2025 4:47 AM EDT) WBC Count 7.23 3.70 - 10.30 10*3/uL LAB HEMATOLOGY METHOD 08/28/2025 9:10 AM EDT [facility] RBC Count 2.86(L) 4.60 - 6.10 10*6/uL LAB HEMATOLOGY METHOD 08/28/2025 9:10 AM EDT [facility] HGB 8.5(L) 13.7 - 17.5 g/dL LAB HEMATOLOGY METHOD 08/28/2025 9:10 AM EDT [facility] HCT 25.0(L) 40.0 - 51.0 % LAB HEMATOLOGY METHOD 08/28/2025 9:10 AM EDT [facility] Platelet Count 189 155 - 369 10*3/uL LAB HEMATOLOGY METHOD 08/28/2025 9:10 AM EDT [facility] MCV 87 79 - 98 fL LAB HEMATOLOGY METHOD 08/28/2025 9:10 AM EDT [facility] MCH 29.7 26.0 - 32.0 pg LAB HEMATOLOGY METHOD 08/28/2025 9:10 AM EDT [facility] MCHC 34.0 30.7 - 35.5 g/dL LAB HEMATOLOGY METHOD 08/28/2025 9:10 AM EDT [facility] RDW 13.3 11.5 - 14.5 % LAB HEMATOLOGY METHOD 08/28/2025 9:10 AM EDT [facility] MPV 11.3 8.8 - 12.5 fL LAB HEMATOLOGY METHOD 08/28/2025 9:10 AM EDT [facility] nRBC 0.3(H) <=0.0 per 100 WBCs LAB HEMATOLOGY METHOD 08/28/2025 9:10 AM EDT [facility] Differential Type Automated LAB HEMATOLOGY METHOD 08/28/2025 9:10 AM EDT [facility] Neutrophils % 78 % LAB HEMATOLOGY METHOD 08/28/2025 9:10 AM EDT [facility] Lymphocytes % 8 % LAB HEMATOLOGY METHOD 08/28/2025 9:10 AM EDT [facility] Monocytes % 11 % LAB HEMATOLOGY METHOD 08/28/2025 9:10 AM EDT [facility] Eosinophils % 0 % LAB HEMATOLOGY METHOD 08/28/2025 9:10 AM EDT [facility] Basophils % 0 % LAB HEMATOLOGY METHOD 08/28/2025 9:10 AM EDT [facility] Immature Granulocytes % 3 % LAB HEMATOLOGY METHOD 08/28/2025 9:10 AM EDT [facility] Neutrophils Absolute 5.63 1.60 - 6.10 10*3/uL LAB HEMATOLOGY METHOD 08/28/2025 9:10 AM EDT [facility] Lymphocytes Absolute 0.55(L) 1.20 - 3.90 10*3/uL LAB HEMATOLOGY METHOD 08/28/2025 9:10 AM EDT [facility] Monocytes Absolute 0.80 0.30 - 0.90 10*3/uL LAB HEMATOLOGY METHOD 08/28/2025 9:10 AM EDT [facility] Eosinophils Absolute 0.03 0.00 - 0.50 10*3/uL LAB HEMATOLOGY METHOD 08/28/2025 9:10 AM EDT [facility] Basophils Absolute 0.03 0.00 - 0.10 10*3/uL LAB HEMATOLOGY METHOD 08/28/2025 9:10 AM EDT [facility] Immature Granulocytes Absolute 0.19(H) 0.00 - 0.06 10*3/uL LAB HEMATOLOGY METHOD 08/28/2025 9:10 AM EDT [facility] Blood Venous blood specimen / Unknown Venipuncture / Unknown 08/28/2025 4:47 AM EDT 08/28/2025 5:05 AM EDT [facility] - 08/28/2025 9:10 AM EDT Therapeutic decision making should be based on absolute values, rather than percentages. us Jadon Rangel MD LAB BLOOD ORDERABLES Final Res ult [facility] [address] [place] [address] * Magnesium, Plasma (08/28/2025 4:47 AM EDT) Magnesium, Plasma 2.0 1.9 - 2.4 mg/dL 08/28/2025 5:36 AM EDT [facility] Blood Venous blood specimen / Unknown Venipuncture / Unknown 08/28/2025 4:47 AM EDT 08/28/2025 5:04 AM EDT us Jadon Rangel MD LAB BLOOD ORDERABLES Final Res ult Performing Organization Address [facility] Co de Phone Number [facility] [address] [place] [address] * (ABNORMAL) Phosphorus, Plasma (08/28/2025 4:47 AM EDT) Pathologist [facility] Phosphorus, Plasma 1.6(L) 2.5 - 4.5 mg/dL 08/28/2025 5:36 AM EDT [facility] Blood Venous blood specimen / Unknown Venipuncture / Unknown 08/28/2025 4:47 AM EDT 08/28/2025 5:04 AM EDT us Jadon Rangel MD LAB BLOOD ORDERABLES Final Res ult Performing Organization Address [facility] [place] [address] * Urinalysis Microscopic Examination (08/27/2025 7:44 AM EDT) Urine Urine specimen obtained by clean catch procedure / Unknown Non-blood Collection / Unknown 08/27/2025 7:44 AM EDT 08/27/2025 7:54 AM EDT us Dimitrios Chang MD LAB URINE ORDERABLES Final Resul t Performing Organization Address [facility] [place] [address] * Urine Oliveira Panel (08/27/2025 7:44 AM EDT) Pathologist [facility] Extra Reflex urine culture not indicated 08/27/2025 10:01 AM EDT [facility] Urine Urine specimen obtained by clean catch procedure / Unknown Non-blood Collection / Unknown 08/27/2025 7:44 AM EDT 08/27/2025 8:02 AM EDT us Dimitrios Chang MD LAB URINE ORDERABLES Final Resul t [facility] [address] [place] [address] * (ABNORMAL) Urinalysis with reflex microscopic (Culture NOT Included) (08/27/2025 7:44 AM EDT) Color, Urine Dark Yellow LAB URINALYSIS - AUTOMATED METHOD 08/27/2025 8:41 AM EDT [facility] Clarity, Urine Clear LAB URINALYSIS - AUTOMATED METHOD 08/27/2025 8:41 AM EDT [facility] Spec [place], Urine >1.030(H) 1.005 - 1.030 LAB URINALYSIS - AUTOMATED METHOD 08/27/2025 8:41 AM EDT [facility] pH, Urine 6.0 5.0 - 8.0 LAB URINALYSIS - AUTOMATED METHOD 08/27/2025 8:41 AM EDT [facility] Protein, Urine 100(A) Negative mg/dL LAB URINALYSIS - AUTOMATED METHOD 08/27/2025 8:41 AM EDT [facility] Glucose, Urine Negative Negative mg/dL LAB URINALYSIS - AUTOMATED METHOD 08/27/2025 8:41 AM EDT [facility] Ketones, Urine 15(A) Negative mg/dL LAB URINALYSIS - AUTOMATED METHOD 08/27/2025 8:41 AM EDT [facility] Blood, Urine Trace(A) Negative LAB URINALYSIS - AUTOMATED METHOD 08/27/2025 8:41 AM EDT [facility] Bilirubin, Urine Negative Negative LAB URINALYSIS - AUTOMATED METHOD 08/27/2025 8:41 AM EDT [facility] Urobilinogen, Urine 1.0 0.2 to 1.0 mg/dL LAB URINALYSIS - AUTOMATED METHOD 08/27/2025 8:41 AM EDT [facility] Leukocytes, Urine Negative Negative LAB URINALYSIS - AUTOMATED METHOD 08/27/2025 8:41 AM EDT [facility] Nitrite, Urine Negative Negative LAB URINALYSIS - AUTOMATED METHOD 08/27/2025 8:41 AM EDT [facility] RBC, Urine 1 0 to 3 /HPF LAB URINALYSIS - AUTOMATED METHOD 08/27/2025 8:41 AM EDT [facility] Comment:This result was prev iously suppressed from the chart. WBC, Urine 0 - 5 0 to 5 /HPF LAB URINALYSIS - AUTOMATED METHOD 08/27/2025 8:41 AM EDT [facility] Comment:This result was prev iously suppressed from the chart. Squamous Epithelial Cells 6 - 10(A) 0 to 5 /HPF LAB URINALYSIS - AUTOMATED METHOD 08/27/2025 8:41 AM EDT [facility] Comment:This result was prev iously suppressed from the chart. Hyaline Casts 11 - 20(A) 0 to 5 /LPF LAB URINALYSIS - AUTOMATED METHOD 08/27/2025 8:41 AM EDT [facility] Comment:This result was prev iously suppressed from the chart. Bacteria, Urine Negative Negative LAB URINALYSIS - AUTOMATED METHOD 08/27/2025 8:41 AM EDT [facility] Comment:This result was prev iously suppressed from the chart. WBC Casts Present Absent LAB URINALYSIS - AUTOMATED METHOD 08/27/2025 8:41 AM EDT [facility] Comment:This result was prev iously suppressed from the chart. Urine Urine specimen obtained by clean catch procedure / Unknown Non-blood Collection / Unknown 08/27/2025 7:44 AM EDT 08/27/2025 7:54 AM EDT us Dimitrios Chang MD LAB URINE ORDERABLES Final Resul t [facility] [address] [place] [address] * (ABNORMAL) Phosphorus (08/27/2025 12:17 AM EDT) Phosphorus, Plasma 2.4(L) 2.5 - 4.5 mg/dL 08/27/2025 12:41 AM EDT [facility] Blood Venous blood specimen / Unknown Venipuncture / Unknown 08/27/2025 12:17 AM EDT 08/27/2025 12:22 AM EDT us Evi Reeves MD LAB BLOOD ORDERABLES Final R esult Performing Organization Address City/[facility]/ZIP Co de Phone Number [facility] [address] [place] [address] * Magnesium (08/27/2025 12:17 AM EDT) Magnesium, Plasma 2.1 1.9 - 2.4 mg/dL 08/27/2025 12:41 AM EDT [facility] Blood Venous blood specimen / Unknown Venipuncture / Unknown 08/27/2025 12:17 AM EDT 08/27/2025 12:22 AM EDT Evi Reeves MD LAB BLOOD ORDERABLES Final R esult Performing Organization Address City/[facility]/ZIP Co de Phone Number [facility] [address] [place] [address] * (ABNORMAL) Basic metabolic panel (08/27/2025 12:17 AM EDT) Glucose, Plasma 120(H) 74 - 99 mg/dL 08/27/2025 12:41 AM EDT [facility] BUN, Plasma 26(H) 8 - 23 mg/dL 08/27/2025 12:41 AM EDT [facility] Creatinine, Plasma 1.13 0.70 - 1.20 mg/dL 08/27/2025 12:41 AM EDT [facility] BUN/Creatinine Ratio 23 08/27/2025 12:41 AM EDT [facility] Sodium, Plasma 129(L) 136 - 145 mmol/L 08/27/2025 12:41 AM EDT [facility] Potassium, Plasma 3.5(L) 3.6 - 4.9 mmol/L 08/27/2025 12:41 AM EDT [facility] Chloride, Plasma 98 97 - 107 mmol/L 08/27/2025 12:41 AM EDT [facility] CO2, Plasma 19(L) 22 - 29 mmol/L 08/27/2025 12:41 AM EDT [facility] Anion Gap 12 6 - 16 mmol/L 08/27/2025 12:41 AM EDT [facility] Total Calcium, Plasma 8.0(L) 8.9 - 10.2 mg/dL 08/27/2025 12:41 AM EDT [facility] eGFRcr 69.9 mL/min/1.7 3m*2 08/27/2025 12:41 AM EDT [facility] Comment:Reported eGFRcr in m L/min/1.73m2 is based the CKD-EPI 2020 equation that does not use a race coefficient. Blood Venous blood specimen / Unknown Venipuncture / Unknown 08/27/2025 12:17 AM EDT 08/27/2025 12:22 AM EDT Evi Reeves MD LAB BLOOD ORDERABLES Final R esult [facility] [address] [place] [address] * (ABNORMAL) CBC and Differential (08/27/2025 12:17 AM EDT) WBC Count 2.30(L) 3.70 - 10.30 10*3/uL LAB HEMATOLOGY METHOD 08/27/2025 1:36 AM EDT [facility] RBC Count 3.35(L) 4.60 - 6.10 10*6/uL LAB HEMATOLOGY METHOD 08/27/2025 1:36 AM EDT [facility] HGB 9.8(L) 13.7 - 17.5 g/dL LAB HEMATOLOGY METHOD 08/27/2025 1:36 AM EDT [facility] HCT 28.9(L) 40.0 - 51.0 % LAB HEMATOLOGY METHOD 08/27/2025 1:36 AM EDT [facility] Platelet Count 168 155 - 369 10*3/uL LAB HEMATOLOGY METHOD 08/27/2025 1:36 AM EDT [facility] MCV 86 79 - 98 fL LAB HEMATOLOGY METHOD 08/27/2025 1:36 AM EDT [facility] MCH 29.3 26.0 - 32.0 pg LAB HEMATOLOGY METHOD 08/27/2025 1:36 AM EDT [facility] MCHC 33.9 30.7 - 35.5 g/dL LAB HEMATOLOGY METHOD 08/27/2025 1:36 AM EDT [facility] RDW 12.8 11.5 - 14.5 % LAB HEMATOLOGY METHOD 08/27/2025 1:36 AM EDT [facility] MPV 10.9 8.8 - 12.5 fL LAB HEMATOLOGY METHOD 08/27/2025 1:36 AM EDT [facility] nRBC 0.9(H) <=0.0 per 100 WBCs LAB HEMATOLOGY METHOD 08/27/2025 1:36 AM EDT [facility] Differential Type Automated LAB HEMATOLOGY METHOD 08/27/2025 1:36 AM EDT [facility] Neutrophils % 65 % LAB HEMATOLOGY METHOD 08/27/2025 1:36 AM EDT [facility] Lymphocytes % 13 % LAB HEMATOLOGY METHOD 08/27/2025 1:36 AM EDT [facility] Monocytes % 20 % LAB HEMATOLOGY METHOD 08/27/2025 1:36 AM EDT [facility] Eosinophils % 0 % LAB HEMATOLOGY METHOD 08/27/2025 1:36 AM EDT [facility] Basophils % 2 % LAB HEMATOLOGY METHOD 08/27/2025 1:36 AM EDT [facility] Immature Granulocytes % 0 % LAB HEMATOLOGY METHOD 08/27/2025 1:36 AM EDT [facility] Neutrophils Absolute 1.46(L) 1.60 - 6.10 10*3/uL LAB HEMATOLOGY METHOD 08/27/2025 1:36 AM EDT [facility] Lymphocytes Absolute 0.30(L) 1.20 - 3.90 10*3/uL LAB HEMATOLOGY METHOD 08/27/2025 1:36 AM EDT [facility] Monocytes Absolute 0.47 0.30 - 0.90 10*3/uL LAB HEMATOLOGY METHOD 08/27/2025 1:36 AM EDT [facility] Eosinophils Absolute 0.01 0.00 - 0.50 10*3/uL LAB HEMATOLOGY METHOD 08/27/2025 1:36 AM EDT [facility] Basophils Absolute 0.05 0.00 - 0.10 10*3/uL LAB HEMATOLOGY METHOD 08/27/2025 1:36 AM EDT [facility] Immature Granulocytes Absolute 0.01 0.00 - 0.06 10*3/uL LAB HEMATOLOGY METHOD 08/27/2025 1:36 AM EDT [facility] Blood Venous blood specimen / Unknown Venipuncture / Unknown 08/27/2025 12:17 AM EDT 08/27/2025 12:22 AM EDT Narrative [facility] - 08/27/2025 1:36 AM EDT Therapeutic decision making should be based on absolute values, rather than percentages. us Evi Reeves MD LAB BLOOD ORDERABLES Final R esult Performing Organization Address [facility] Co de Phone Number [facility] [address] [place] [address] * (ABNORMAL) Clostridium difficile EIA (08/26/2025 8:18 PM EDT) Pathologist [facility] C difficile EIA Interpretation C. difficile infection likely.(A) Negative 08/29/2025 7:10 AM EDT [facility] Toxin Result Positive(A) Negative 08/29/2025 7:10 AM EDT [facility] GDH Result Positive Negative 08/29/2025 7:10 AM EDT [facility] Stool Rectum structure / Unknown Non-blood Collection / Unknown 08/26/2025 8:18 PM EDT 08/26/2025 8:36 PM EDT Narrative [facility] - 08/29/2025 7:10 AM EDT This toxin/GDH assay was reflexed from a positive C. difficile PCR result. us Jadon Rangel MD LAB MICROBIOLOGY - GENERAL ORD ERABLES Final Result Performing Organization Address [facility] Co de Phone Number [facility] [address] [place] [address] * (ABNORMAL) Clostridiodes (Clostridium) difficile PCR (08/26/2025 8:18 PM EDT) C difficile PCR toxin B gene DNA Result Detected, Reflex GDH/Toxin antigen test pending, see CDEIA for final result.(A) Not Detected 08/27/2025 1:42 PM EDT [facility] Comment:Reflex GDH/Toxin ant igen test pending, see CDEIA for final result. Stool Rectum structure / Unknown Non-blood Collection / Unknown 08/26/2025 8:18 PM EDT 08/26/2025 8:36 PM EDT Narrative [facility] - 08/27/2025 1:42 PM EDT This test is FDA approved for use with liquid stool specimens. This test is used for clinical purposes. It should not be regarded as investigational or for research. This laboratory is certified under the Clinical Laboratory Improvement Amendments of 1988 (CLIA-88) as qualified to perform high complexity clinical laboratory testing. Jadon Rangel MD LAB MICROBIOLOGY - GENERAL ORD ERABLES Final Result [facility] [address] [place] [address] * Ova and Parasite Exam, Fecal (08/26/2025 8:18 PM EDT) Ova and Parasite, Fecal Negative Negative 2025 7:05 PM EDT [facility] ([place]) Stool Rectum structure / Unknown Non-blood Collection / Unknown 08/26/2025 8:18 PM EDT 08/26/2025 8:25 PM EDT Narrative [facility] ([place]) - 2025 7:05 PM EDT Clinical Interpretation: INTERPRETIVE INFORMATION: Ova and Parasite, Fecal Method for identification of Ova and Parasites includes wet mount and trichrome stains. Due to the various shedding cycles of many parasites, three separate stool specimens collected over a 5-7-day period are recommended for ova and parasite examination. A single negative result does not rule out the possibility of a parasitic infection. The ova and parasite exam does not specifically detect Cryptosporidium, Cyclospora, Cystoisospora, and Microsporidia. For additional test information refer to [facility] consult, [email or web address] Performed By: [employer] [address] [place] [address] [employer]: Kirk Camara MD, PhD CLIA Number: [id number] Evi Reeves MD LAB MICROBIOLOGY - GENERAL O RDERABLES Final Result [facility] ([place]) [address] [place] [address] * Comprehensive GI Panel by PCR (08/26/2025 8:18 PM EDT) Campylobacter PCR Result Not Detected Not Detected 08/27/2025 11:06 AM EDT [facility] Plesiomonas shigelloides PCR Result Not Detected Not Detected 08/27/2025 11:06 AM EDT [facility] Salmonella PCR Result Not Detected Not Detected 08/27/2025 11:06 AM EDT [facility] Vibrio species PCR Result Not Detected Not Detected 08/27/2025 11:06 AM EDT [facility] Vibrio cholerae PCR Result Not Detected Not Detected 08/27/2025 11:06 AM EDT [facility] Yersinia enterocolitica PCR Result Not Detected Not Detected 08/27/2025 11:06 AM EDT [facility] Enteroaggregative E. coli (EAEC) PCR Result Not Detected Not Detected 08/27/2025 11:06 AM EDT [facility] Enteropathogenic E. coli (EPEC) PCR Result Not Detected Not Detected 08/27/2025 11:06 AM EDT [facility] Enterotoxigenic E. coli (ETEC) lt/st PCR Result Not Detected Not Detected 08/27/2025 11:06 AM EDT [facility] Shiga-like Toxin-Producing E.coli (STEC) stx1/stx2 PCR Resu Not Detected Not Detected 08/27/2025 11:06 AM EDT [facility] E coli 0157 PCR Result Not Detected Not Detected 08/27/2025 11:06 AM EDT [facility] Shigella/Enteroinvas jenaro E. coli (EIEC) PCR Result Not Detected Not Detected 08/27/2025 11:06 AM EDT [facility] Cryptosporidium PCR Result Not Detected Not Detected 08/27/2025 11:06 AM EDT [facility] Cyclospora cayetanensis PCR Result Not Detected Not Detected 08/27/2025 11:06 AM EDT [facility] Entamoeba histolytica PCR Result Not Detected Not Detected 08/27/2025 11:06 AM EDT [facility] Giardia duodenalis (aka Giardia lamblia) PCR Result Not Detected Not Detected 08/27/2025 11:06 AM EDT [facility] Adenovirus F 40/41 PCR Result Not Detected Not Detected 08/27/2025 11:06 AM EDT [facility] Astrovirus PCR Result Not Detected Not Detected 08/27/2025 11:06 AM EDT [facility] Norovirus GI/GII PCR Result Not Detected Not Detected 08/27/2025 11:06 AM EDT [facility] Rotavirus A PCR Result Not Detected Not Detected 08/27/2025 11:06 AM EDT [facility] Sapovirus PCR Result Not Detected Not Detected 08/27/2025 11:06 AM EDT [facility] Stool Rectum structure / Unknown Non-blood Collection / Unknown 08/26/2025 8:18 PM EDT 08/26/2025 8:36 PM EDT Narrative [facility] - 08/27/2025 11:06 AM EDT This specimen was tested for [...] by PCR assay if clinically indicated. us Evi Reeves MD LAB MICROBIOLOGY - GENERAL O RDERABLES Final Result Performing Organization Address City/[facility]/ZIP Co de Phone Number [facility] [address] [place] [address] * (ABNORMAL) Troponin T, High Sensitivity, 2 Hour, Plasma (08/26/2025 5:11 PM EDT) Troponin T, High Sensitivity, 2 Hour 37(H) <19 ng/L 08/26/2025 5:39 PM EDT [facility] Troponin Delta 2 <10 ng/L 08/26/2025 5:39 PM EDT [facility] Troponin Delta Interpretation Not Significant 08/26/2025 5:39 PM EDT [facility] Comment:Not Significant. No acute change in troponin observed between the baseline and 2 hour samples. Blood Venous blood specimen / Unknown Venipuncture / Unknown 08/26/2025 5:11 PM EDT 08/26/2025 5:15 PM EDT us Dimitrios Chang MD LAB BLOOD ORDERABLES Final Resul t Performing Organization Address City/[facility]/ZIP Co de Phone Number [facility] [address] [place] [address] * Blood Culture (Aerobic/Anaerobet Set) (08/26/2025 5:11 PM EDT) Culture No growth at day 5 2025 6:01 PM EDT [facility] Blood Structure of right forearm / Unknown Venipuncture / Unknown 08/26/2025 5:11 PM EDT 08/26/2025 5:30 PM EDT Narrative [facility] - 2025 6:01 PM EDT Low blood volume submitted, results may be compromised us Dimitrios Chang MD LAB MICROBIOLOGY - GENERAL ORDER RANGEL Final Result [facility] [address] [place] [address] * XR Chest 2 Views (08/26/2025 4:57 PM EDT) Anatomical Region Laterality Modality Chest Computed Radiogr aphy Impressions 08/26/2025 5:52 PM EDT No acute focal airspace consolidation. CRITICAL RESULT: No. COMMUNICATION: Per this written report. By electronically signing this report, I, the attending physician, attest that I have personally reviewed the images/data for the above examination(s) and agree with the final edited report. Drafted by Salina Saucedo MD on 08/26/2025 4:59 PM Final report signed by Taco Marino MD on 08/26/2025 5:52 PM Narrative 08/26/2025 5:52 PM EDT CLINICAL INDICATION: aspiration risk TECHNIQUE: XR CHEST 2 VIEWS COMPARISON: Chest radiograph, 07/29/2025. Outside CT chest 08/26/2025. FINDINGS: Right internal jugular Port-A-Cath in situ, tip terminates region of the superior cavoatrial junction. Mild cardiomegaly, similar over the interval. No pneumothorax. No acute focal airspace consolidation. No acute osseous abnormality. Overlying electronic device left hemithorax. Procedure Note Taco Marino MD - 08/26/2025 CLINICAL INDICATION: aspiration risk TECHNIQUE: XR CHEST 2 VIEWS COMPARISON: Chest radiograph, 07/29/2025. Outside CT chest 08/26/2025. FINDINGS: Right internal jugular Port-A-Cath in situ, tip terminates region of thesuperior cavoatrial junction. Mild cardiomegaly, similar over theinterval. No pneumothorax. No acute focal airspace consolidation. No acuteosseous abnormality. Overlying electronic device left hemithorax. IMPRESSION: No acute focal airspace consolidation. CRITICAL RESULT: No. COMMUNICATION: Per this written report. By electronically signing this report, I, the attending physician, attestthat I have personally reviewed the images/data for the aboveexamination(s) and agree with the final edited report. Drafted by Salina Saucedo MD on 08/26/2025 4:59 PM Final report signed by Taco Marino MD on 08/26/2025 5:52 PM Dimitrios Chang MD IMG XR PROCEDURES Final Result * EKG now - STAT (adult) (08/26/2025 1:45 PM EDT) EKG DIAGNOSIS CLASS Abnormal MUSE ECG Ventricular Rate 105 BPM MUSE ECG QRSD Interval 80 ms MUSE ECG QT Interval 326 ms MUSE ECG QTC Interval 430 ms MUSE ECG R Herman 51 degrees MUSE ECG T Wave Herman -16 degrees MUSE ECG Diagnosis Atrial fibrillation with rapid ventricular response MUSE ECG Diagnosis Minimal voltage criteria for LVH, may be normal variant ( R in aVL ) MUSE ECG Diagnosis Nonspecific ST and T wave abnormality MUSE ECG Diagnosis Abnormal ECG MUSE ECG Diagnosis MUSE ECG Diagnosis Confirmed by Jack Marcano ([id number]) on 08/27/2025 9:07:53 PM MUSE ECG 08/26/2025 1:45 PM EDT 08/27/2025 9:07 PM EDT Result Liliana Chang MD ECG ORDERABLES Final Result Performing Organization Address [facility] Co de Phone Number MUSE ECG * Gold Top (08/26/2025 1:35 PM EDT) Extra Hold for add-ons 08/26/2025 4:01 PM EDT [facility] Comment:Auto resulted. Blood Venous blood specimen / Unknown 08/26/2025 1:35 PM EDT 08/26/2025 1:44 PM EDT Result Liliana Chang MD LAB BLOOD ORDERABLES Final Resul t Performing Organization Address City/[facility] Co de Phone Number [facility] [address] [place] [address] * Gold Top (08/26/2025 1:35 PM EDT) Extra Hold for add-ons 08/26/2025 4:01 PM EDT [facility] Comment:Auto resulted. Blood Venous blood specimen / Unknown 08/26/2025 1:35 PM EDT 08/26/2025 1:44 PM EDT Result Liliana Chang MD LAB BLOOD ORDERABLES Final Resul t [facility] [address] [place] [address] * Light Blue Top (08/26/2025 1:35 PM EDT) Pathologist [facility] Extra Hold for add-ons 08/26/2025 4:01 PM EDT [facility] Comment:Auto resulted. Blood Venous blood specimen / Unknown 08/26/2025 1:35 PM EDT 08/26/2025 1:44 PM EDT us Dimitrios Chang MD LAB BLOOD ORDERABLES Final Resul t [facility] [address] [place] [address] * (ABNORMAL) Lipase (08/26/2025 1:35 PM EDT) Pathologist [facility] Lipase, Plasma 14(L) 19 - 63 U/L 08/26/2025 2:07 PM EDT [facility] Blood Venous blood specimen / Unknown Venipuncture / Unknown 08/26/2025 1:35 PM EDT 08/26/2025 1:41 PM EDT us Dimitrios Chang MD LAB BLOOD ORDERABLES Final Resul t Performing Organization Address [facility]/ZIP Co de Phone Number [facility] [address] [place] [address] * (ABNORMAL) Troponin T, High Sensitivity, 0 Hour Plasma, Reflex to 2 Hour (08/26/2025 1:35 PM EDT) Pathologist [facility] Troponin T, High Sensitivity, 0 Hour 39(H) <19 ng/L 08/26/2025 2:07 PM EDT [facility] Blood Venous blood specimen / Unknown Venipuncture / Unknown 08/26/2025 1:35 PM EDT 08/26/2025 1:41 PM EDT us Dimitrios Chang MD LAB BLOOD ORDERABLES Final Resul t [facility] [address] [place] [address] * (ABNORMAL) Blood gas panel, venous (08/26/2025 1:35 PM EDT) pH, Venous 7.42 7.32 - 7.43 LAB HEMATOLOGY METHOD 08/26/2025 1:43 PM EDT [facility] pCO2, Venous 37(L) 40 - 55 mmHg LAB HEMATOLOGY METHOD 08/26/2025 1:43 PM EDT [facility] pO2, Venous 21(L) 25 - 40 mmHg LAB HEMATOLOGY METHOD 08/26/2025 1:43 PM EDT [facility] SO2, Measured, Venous 31(L) 65 - 80 % LAB HEMATOLOGY METHOD 08/26/2025 1:43 PM EDT [facility] Base Excess, Venous -0.6 -2.0 - 3.0 mmol/L LAB HEMATOLOGY METHOD 08/26/2025 1:43 PM EDT [facility] Bicarbonate, Calculated, Venous 24 22 - 26 mmol/L LAB HEMATOLOGY METHOD 08/26/2025 1:43 PM EDT [facility] Hematocrit, Whole Blood 32.0(L) 40.0 - 51.0 % LAB HEMATOLOGY METHOD 08/26/2025 1:43 PM EDT [facility] Sodium, Whole Blood 129(L) 136 - 145 mmol/L LAB HEMATOLOGY METHOD 08/26/2025 1:43 PM EDT [facility] Potassium, Whole Blood 3.5(L) 3.6 - 4.9 mmol/L LAB HEMATOLOGY METHOD 08/26/2025 1:43 PM EDT [facility] Chloride, Whole Blood 97 97 - 107 mmol/L LAB HEMATOLOGY METHOD 08/26/2025 1:43 PM EDT [facility] Glucose, Whole Blood 103(H) 74 - 99 mg/dL LAB HEMATOLOGY METHOD 08/26/2025 1:43 PM EDT [facility] Lactate, Venous, Whole Blood 1.7 0.5 - 2.2 mmol/L LAB HEMATOLOGY METHOD 08/26/2025 1:43 PM EDT [facility] Ionized Calcium, Whole Blood 4.6 4.6 - 5.1 mg/dL LAB HEMATOLOGY METHOD 08/26/2025 1:43 PM EDT [facility] Blood Venous blood specimen / Unknown Venipuncture / Unknown 08/26/2025 1:35 PM EDT 08/26/2025 1:41 PM EDT us Dimitrios Chang MD LAB BLOOD ORDERABLES Final Resul t Performing Organization Address City/[facility] Co de Phone Number [facility] [address] [place] [address] * (ABNORMAL) C-Reactive protein (08/26/2025 1:35 PM EDT) [facility] CRP, Plasma 318.6(H) <=8.0 mg/L 08/26/2025 2:07 PM EDT [facility] Blood Venous blood specimen / Unknown Venipuncture / Unknown 08/26/2025 1:35 PM EDT 08/26/2025 1:41 PM EDT Narrative [facility] - 08/26/2025 2:07 PM EDT This CRP test is appropriate for assessment of infection, systemic inflammation and/or tissue injury. To assess cardiovascular disease risk order high sensitivity CRP (CRPH). Result [facility], 1928–1983 us Dimitrios Chang MD LAB BLOOD ORDERABLES Final Resul t Performing Organization Address [facility] Co de Phone Number [facility] [address] [place] [address] * Lactic acid, venous (08/26/2025 1:35 PM EDT) [facility] Lactate, Venous, Whole Blood 1.7 0.5 - 2.2 mmol/L LAB HEMATOLOGY METHOD 08/26/2025 1:43 PM EDT [facility] Blood Venous blood specimen / Unknown Venipuncture / Unknown 08/26/2025 1:35 PM EDT 08/26/2025 1:41 PM EDT us Dimitrios Chang MD LAB BLOOD ORDERABLES Final Resul t Performing Organization Address City/[facility]/ZIP Co de Phone Number [facility] [address] [place] [address] * (ABNORMAL) Phosphorus (08/26/2025 1:35 PM EDT) Phosphorus, Plasma 2.3(L) 2.5 - 4.5 mg/dL 08/26/2025 2:07 PM EDT [facility] Blood Venous blood specimen / Unknown Venipuncture / Unknown 08/26/2025 1:35 PM EDT 08/26/2025 1:41 PM EDT us Dimitrios Chang MD LAB BLOOD ORDERABLES Final Resul t Performing Organization Address [facility] Co de Phone Number [facility] [address] [place] [address] * (ABNORMAL) Magnesium (08/26/2025 1:35 PM EDT) Magnesium, Plasma 1.7(L) 1.9 - 2.4 mg/dL 08/26/2025 2:07 PM EDT [facility] Blood Venous blood specimen / Unknown Venipuncture / Unknown 08/26/2025 1:35 PM EDT 08/26/2025 1:41 PM EDT us Dimitrios Chang MD LAB BLOOD ORDERABLES Final Resul t Performing Organization Address [facility] de Phone Number [facility] [address] [place] [address] * (ABNORMAL) CBC w/diff (08/26/2025 1:35 PM EDT) Pathologist [facility] WBC Count 1.26(L) 3.70 - 10.30 10*3/uL LAB HEMATOLOGY METHOD 08/26/2025 3:43 PM EDT [facility] RBC Count 3.43(L) 4.60 - 6.10 10*6/uL LAB HEMATOLOGY METHOD 08/26/2025 3:43 PM EDT [facility] HGB 10.1(L) 13.7 - 17.5 g/dL LAB HEMATOLOGY METHOD 08/26/2025 3:43 PM EDT [facility] HCT 29.9(L) 40.0 - 51.0 % LAB HEMATOLOGY METHOD 08/26/2025 3:43 PM EDT [facility] Platelet Count 170 155 - 369 10*3/uL LAB HEMATOLOGY METHOD 08/26/2025 3:43 PM EDT [facility] MCV 87 79 - 98 fL LAB HEMATOLOGY METHOD 08/26/2025 3:43 PM EDT [facility] MCH 29.4 26.0 - 32.0 pg LAB HEMATOLOGY METHOD 08/26/2025 3:43 PM EDT [facility] MCHC 33.8 30.7 - 35.5 g/dL LAB HEMATOLOGY METHOD 08/26/2025 3:43 PM EDT [facility] RDW 12.9 11.5 - 14.5 % LAB HEMATOLOGY METHOD 08/26/2025 3:43 PM EDT [facility] MPV 10.9 8.8 - 12.5 fL LAB HEMATOLOGY METHOD 08/26/2025 3:43 PM EDT [facility] nRBC 0.0 <=0.0 per 100 WBCs LAB HEMATOLOGY METHOD 08/26/2025 3:43 PM EDT [facility] Differential Type Automated LAB HEMATOLOGY METHOD 08/26/2025 3:43 PM EDT [facility] Neutrophils % 56 % LAB HEMATOLOGY METHOD 08/26/2025 3:43 PM EDT [facility] Lymphocytes % 18 % LAB HEMATOLOGY METHOD 08/26/2025 3:43 PM EDT [facility] Monocytes % 25 % LAB HEMATOLOGY METHOD 08/26/2025 3:43 PM EDT [facility] Eosinophils % 0 % LAB HEMATOLOGY METHOD 08/26/2025 3:43 PM EDT [facility] Basophils % 1 % LAB HEMATOLOGY METHOD 08/26/2025 3:43 PM EDT [facility] Immature Granulocytes % 0 % LAB HEMATOLOGY METHOD 08/26/2025 3:43 PM EDT [facility] Neutrophils Absolute 0.71(LL) 1.60 - 6.10 10*3/uL LAB HEMATOLOGY METHOD 08/26/2025 3:43 PM EDT [facility] Lymphocytes Absolute 0.22(L) 1.20 - 3.90 10*3/uL LAB HEMATOLOGY METHOD 08/26/2025 3:43 PM EDT [facility] Monocytes Absolute 0.32 0.30 - 0.90 10*3/uL LAB HEMATOLOGY METHOD 08/26/2025 3:43 PM EDT [facility] Eosinophils Absolute 0.00 0.00 - 0.50 10*3/uL LAB HEMATOLOGY METHOD 08/26/2025 3:43 PM EDT [facility] Basophils Absolute 0.01 0.00 - 0.10 10*3/uL LAB HEMATOLOGY METHOD 08/26/2025 3:43 PM EDT [facility] Immature Granulocytes Absolute 0.00 0.00 - 0.06 10*3/uL LAB HEMATOLOGY METHOD 08/26/2025 3:43 PM EDT [facility] Blood Venous blood specimen / Unknown Venipuncture / Unknown 08/26/2025 1:35 PM EDT 08/26/2025 1:41 PM EDT Narrative [facility] - 08/26/2025 3:43 PM EDT Therapeutic decision making should be based on absolute values, rather than percentages. us Dimitrios Chang MD LAB BLOOD ORDERABLES Final Resul t [facility] [address] [place] [address] * (ABNORMAL) CMP (08/26/2025 1:35 PM EDT) Glucose, Plasma 108(H) 74 - 99 mg/dL 08/26/2025 2:07 PM EDT [facility] BUN, Plasma 23 8 - 23 mg/dL 08/26/2025 2:07 PM EDT [facility] Creatinine, Plasma 1.25(H) 0.70 - 1.20 mg/dL 08/26/2025 2:07 PM EDT [facility] BUN/Creatinine Ratio 18 08/26/2025 2:07 PM EDT [facility] Sodium, Plasma 129(L) 136 - 145 mmol/L 08/26/2025 2:07 PM EDT [facility] Potassium, Plasma 3.7 3.6 - 4.9 mmol/L 08/26/2025 2:07 PM EDT [facility] Chloride, Plasma 96(L) 97 - 107 mmol/L 08/26/2025 2:07 PM EDT [facility] CO2, Plasma 21(L) 22 - 29 mmol/L 08/26/2025 2:07 PM EDT [facility] Anion Gap 12 6 - 16 mmol/L 08/26/2025 2:07 PM EDT [facility] Total Calcium, Plasma 8.2(L) 8.9 - 10.2 mg/dL 08/26/2025 2:07 PM EDT [facility] Total Protein 4.9(L) 6.3 - 7.9 g/dL 08/26/2025 2:07 PM EDT [facility] Albumin, Plasma 2.3(L) 3.5 - 5.2 g/dL 08/26/2025 2:07 PM EDT [facility] AST, Plasma 20 10 - 50 U/L 08/26/2025 2:07 PM EDT [facility] ALT, Plasma 21 10 - 50 U/L 08/26/2025 2:07 PM EDT [facility] Alkaline Phosphatase, Plasma 59 40 - 115 U/L 08/26/2025 2:07 PM EDT [facility] Total Bilirubin, Plasma 0.4 0.2 - 1.1 mg/dL 08/26/2025 2:07 PM EDT [facility] eGFRcr 61.9 mL/min/1.7 3m*2 08/26/2025 2:07 PM EDT [facility] Comment:Reported eGFRcr in m L/min/1.73m2 is based the CKD-EPI 2020 equation that does not use a race coefficient. Blood Venous blood specimen / Unknown Venipuncture / Unknown 08/26/2025 1:35 PM EDT 08/26/2025 1:41 PM EDT us Dimitrios Chang MD LAB BLOOD ORDERABLES Final Resul t [facility] [address] [place] [address] documented in this encounter Visit Diagnoses Diagnosis Sepsis (CMS/HCC)- Primary C. difficile colitis Neutropenic fever (CMS/HCC) Adenocarcinoma of gastroesophageal junction Urinary retention Unspecified retention of urine Gross hematuria Neutropenic fever (CMS/HCC) documented in this encounter Admitting Diagnoses Diagnosis Sepsis (CMS/HCC) documented in this encounter Administered Medications Inactive Administered Medications - up to 3 most recent administrations Medication Order MAR Action Action Date Dose Rate Site apixaban (Eliquis) tablet 5 mg 5 mg, Oral, 2 times daily, First dose on Fri08/26/25 at 2100, Until Discontinued, Routine Given 09/09/2025 9:39 PM EDT 5 mg Given 09/07/2025 8:53 AM EDT 5 mg Given 09/06/2025 8:41 PM EDT 5 mg cefepime (Maxipime) 2 g in sodium chloride 0.9% 100 mL IVPB (vial adapter required) 2 g, Intravenous, Once, 1 dose, On Fri08/26/25 at 1700, STAT New 08/26/2025 5:34 PM EDT 2 g 36.7 mL/hr cefepime (Maxipime) 2 g in sodium chloride 0.9% 100 mL IVPB (vial adapter required) 2 g, Intravenous, Every 8 hours, First dose on Fri08/27/25 at 0100, Until Discontinued, Routine New Bag 08/28/2025 8:08 AM EDT 2 g 36. 7 mL/hr New Bag 08/28/2025 1:25 AM EDT 2 g 36.7 mL/hr New Bag 08/27/2025 5:17 PM EDT 2 g 36.7 mL/hr cefTRIAXone (Rocephin) 1 g in sodium chloride 0.9% 100 mL IVPB (vial adapter required) 1 g, Intravenous, Every 24 hours, 5 doses, First dose on Fri09/07/25 at 1930, Last dose on Fri09/11/25 at 1930, Routine New 09/08/2025 6:52 PM EDT 1 g 220 mL/hr New Bag 09/07/2025 8:03 PM EDT 1 g 220 mL/hr fidaxomicin (Dificid) tablet 200 mg 200 mg, Oral, 2 times daily, 20 doses, First dose on Fri08/28/25 at 2100, Last dose on Fri09/07/25 at 0900, Routine Given 09/07/2025 8:57 AM EDT 200 mg Given 09/06/2025 8:41 PM EDT 200 mg Given 09/06/2025 8:22 AM EDT 200 mg finasteride (Proscar) tablet 5 mg 5 mg, Oral, Daily, First dose on Fri09/08/25 at 1045, Until Discontinued, Routine Given 09/12/2025 8:58 AM EST 5 mg Given 09/11/2025 8:52 AM EST 5 mg Given 09/10/2025 8:09 AM EDT 5 mg gi cocktail oral solution 30 mL 30 mL, Oral, Once, 1 dose, On 09/03/25 at 2130, Routine Given 09/03/2025 9:07 PM EDT 30 mL heparin flush (porcine) 100 UNIT/ML injection 500 Units 500 Units, Intracatheter, Once, 1 dose, On 09/12/25 at 1600, Routine Given 09/12/2025 4:46 PM EST 500 Units HYDROcodone-acetaminophen ([place]) 5-325 MG per tablet 5 mg of hydrocodone 5 mg of hydrocodone, Oral, Every 6 hours PRN, Starting on 08/28/25 at 0122, Until Fri09/12/25 at 1951, Routine, Moderate/Severe Pain > or =3: CPOT; > or =4: FLACC, PAINAD, NPASS, NRS, Apple-Lynne Faces; > or =5: DVPRS, NIPS , severe pain Given 09/10/2025 9:15 PM EDT 5 mg of hydrocodone Given 09/09/2025 9:40 PM EDT 5 mg of hydrocodone Given 09/08/2025 10:59 PM EDT 5 mg of hydrocodone HYDROcodone-acetaminophen ([place]) 5-325 MG per tablet 5 mg of hydrocodone 5 mg of hydrocodone, Oral, Once, 1 dose, On Tu08/30/25 at 0130, Routine Given 08/30/2025 12:56 AM EDT 5 mg of hydrocodone lactated Ringer's bolus 500 mL 500 mL, Intravenous, Once, 1 dose, On Fri09/11/25 at 1115, Administer over 2 Hours, Routine New Bag 09/11/2025 10:18 AM EST 500 mL 250 mL/hr lactated Ringer's bolus 500 mL 500 mL, Intravenous, Once, 1 dose, On Fri09/11/25 at 1415, Administer over 2 Hours, Routine New Bag 09/11/2025 1:32 PM EST 500 mL 250 mL/hr lactated Ringer's infusion 1,000 mL 1,000 mL, Intravenous, Once, 1 dose, On Fri08/26/25 at 1505, STAT New Bag 08/26/2025 3:02 PM EDT 1,000 mL lactated Ringer's infusion 500 mL 500 mL, Intravenous, Once (Bolus), 1 dose, On Fri08/26/25 at 1320, STAT New Bag 08/26/2025 1:36 PM EDT 500 mL lactated Ringer's infusion 75 mL/hr, Intravenous, Continuous, Starting on Fri08/26/25 at 1940, Until 08/27/25 at 0749, Routine New Bag 08/26/2025 8:04 PM EDT 75 mL/hr 75 mL/hr lactated Ringer's infusion 75 mL/hr, Intravenous, Continuous, Starting on 08/27/25 at 0750, Until 08/28/25 at 0749, Routine New Bag 08/27/2025 9:31 AM EDT 75 mL/hr 75 mL/hr Restarted 08/27/2025 7:50 AM EDT 75 mL/hr 75 mL/hr lactated Ringer's infusion 75 mL/hr, Intravenous, Continuous, Starting on 08/28/25 at 0830, Until 08/28/25 at 0910, Routine Restarted 08/28/2025 8:08 AM EDT 75 mL/hr 75 mL /hr lactated Ringer's infusion 75 mL/hr, Intravenous, Continuous, Starting on 08/28/25 at 1000, Until 08/28/25 at 1347, Routine New Bag 08/28/2025 9:48 AM EDT 75 mL/hr 75 mL /hr lactated Ringer's infusion 100 mL/hr, Intravenous, Continuous, Starting on Fri08/29/25 at 0815, Until Fri08/31/25 at 0932, Routine New Bag 2025 4:49 AM EDT 100 mL/hr 100 m L/hr New Bag 08/30/2025 7:25 AM EDT 100 mL/hr 100 mL/hr New Bag 08/29/2025 9:30 PM EDT 100 mL/hr 100 mL/hr lactated Ringer's infusion 50 mL/hr, Intravenous, Continuous, Starting on 08/31/25 at 1330, Until 09/04/25 at 0936, Routine Rate/Dose Change 09/03/2025 1:50 PM EDT 50 mL/hr 50 mL/hr New Bag 09/03/2025 4:17 AM EDT 100 mL/hr 100 mL/hr New Bag 09/02/2025 8:55 AM EDT 100 mL/hr 100 mL/hr lidocaine (Uro-Jet) 2 % gel 1 Application Urethral, As needed, Starting on Marcela 09/08/25 at 0822, Until 09/12/25 at 195, Routine, Mild + Pain > or =1: CPOT, DVPRS, FLACC, PAINAD, NPASS, NRS, Apple-Lynne Faces; > or =2: NIPS Given 09/08/2025 10:05 AM EDT 1 Application lidocaine (Xylocaine) 2 % solution 5 mL 5 mL, Swish & Swallow, 4 times daily before meals and nightly, First dose on 08/28/25 at 0915, Until Discontinued, Routine Given 09/09/2025 8:11 AM EDT 5 mL Given 09/08/2025 8:20 PM EDT 5 mL Given 09/08/2025 6:49 PM EDT 5 mL loperamide (Imodium A-D) tablet 2 mg 2 mg, Oral, 4 times daily PRN, Starting on Fri09/12/25 at 0909, Until Fri09/12/25 at 195, Routine, diarrhea Given 09/12/2025 9:32 AM EST 2 mg magic mouthwash BLM (FIRST-Mouthwash) suspension 15 mL 15 mL, Swish & Spit, 4 times daily before meals and nightly, First dose on 08/28/25 at 0915, Until Discontinued, Routine Given 09/12/2025 4:46 PM EST 15 mL Given 09/12/2025 1:02 PM EST 15 mL Given 09/12/2025 8:58 AM EST 15 mL magnesium sulfate in D5W IVPB 1 g 1 g, Intravenous, Every 4 hours, 3 doses, First dose on Marcela 09/08/25 at 0815, Last dose on Fri09/08/25 at 1615, Routine New Bag 09/08/2025 3:31 PM EDT 1 g New Bag 09/08/2025 11:59 AM EDT 1 g New Bag 09/08/2025 8:06 AM EDT 1 g magnesium sulfate IVPB 2 g 2 g, Intravenous, Once, 1 dose, On Fri08/26/25 at 1415, Routine New Bag 08/26/2025 3:00 PM EDT 2 g 25 mL /hr magnesium sulfate IVPB 2 g 2 g, Intravenous, Once, 1 dose, On Fri09/02/25 at 0845, Routine New Bag 09/02/2025 8:32 AM EDT 2 g 25 mL /hr magnesium sulfate IVPB 2 g 2 g, Intravenous, Once, 1 dose, On Fri09/03/25 at 1300, Routine New Bag 09/03/2025 1:49 PM EDT 2 g 25 mL /hr melatonin tablet 3 mg 3 mg, Oral, Once, 1 dose, On Fri08/26/25 at 2155, Routine Given 08/26/2025 9:58 PM EDT 3 mg melatonin tablet 6 mg 6 mg, Oral, Nightly PRN, Starting on 08/27/25 at 2330, Until 09/12/25 at 1951, Routine, sleep Given 09/11/2025 8:38 PM EST 6 mg Given 09/10/2025 9:15 PM EDT 6 mg Given 09/09/2025 9:39 PM EDT 6 mg morphine PF 2 mg 2 mg, Intravenous, Once, 1 dose, On Fri08/26/25 at 1935, Routine Given 08/26/2025 7:52 PM EDT 2 mg morphine PF 2 mg 2 mg, Intravenous, Once, 1 dose, On Fri08/26/25 at 2155, Routine Given 08/26/2025 9:57 PM EDT 2 mg morphine PF 2 mg 2 mg, Intravenous, Once, 1 dose, On Fri08/27/25 at 0530, Routine Given 08/27/2025 5:32 AM EDT 2 mg mupirocin (Bactroban) 2 % ointment 1 Application Each Nostril, 2 times daily, 10 doses, First dose on 08/27/25 at 2100, Last dose on Marcela 09/01/25 at 0900, Routine Given 09/01/2025 8:58 AM EDT 1 Application Given 2025 9:04 PM EDT 1 Application Given 2025 9:10 AM EDT 1 Application nystatin (Mycostatin) 198867 UNIT/ML suspension 500,000 Units 500,000 Units (5 mL), Swish & Swallow, 4 times daily, 56 doses, First dose on 08/28/25 at 0915, Last dose on 09/10/25 at 2200, Routine Given 09/10/2025 9:16 PM EDT 500,000 Units Given 09/10/2025 5:57 PM EDT 500,000 Units Given 09/10/2025 2:17 PM EDT 500,000 Units ondansetron (Zofran) 4 MG/5ML solution 8 mg 8 mg, Oral, Every 6 hours PRN, Starting on 08/27/25 at 1514, Until 09/12/25 at 1951, Routine, nausea, vomiting ondansetron (Zofran) injection 8 mg 8 mg, Intravenous, Every 6 hours PRN, Starting on 08/27/25 at 1514, Until 09/12/25 at 1951, Routine, vomiting, nausea Given 09/02/2025 8:15 PM EDT 8 mg Given 09/01/2025 5:19 PM EDT 8 mg Given 09/01/2025 10:14 AM EDT 8 mg ondansetron (Zofran) tablet 8 mg 8 mg, Oral, 2 times daily, First dose on Fri08/26/25 at 2100, Until Discontinued, Routine Given 08/26/2025 8:04 PM EDT 8 mg ondansetron ODT (Zofran-ODT) disintegrating tablet 8 mg 8 mg, Oral, Every 6 hours PRN, Starting on 08/27/25 at 1514, Until 09/12/25 at 1951, Routine, nausea, vomiting Given 09/10/2025 9:15 PM EDT 8 mg Given 09/09/2025 9:40 PM EDT 8 mg pantoprazole (Protonix) EC tablet 40 mg 40 mg, Oral, Daily before breakfast, First dose (after last modification) on 08/27/25 at 0930, Until Discontinued, Routine Given 09/12/2025 6:33 AM EST 40 mg Given 09/11/2025 8:51 AM EST 40 mg Given 09/10/2025 8:10 AM EDT 40 mg potassium & sodium phosphates (Phos-NaK) 280-160-250 MG packet 1 packet 1 packet, Oral, 4 times daily with meals and nightly, First dose on Fri09/02/25 at 0845, Until Discontinued, Routine Given 09/03/2025 8:14 AM EDT 1 packet Given 09/02/2025 8:04 PM EDT 1 packet Given 09/02/2025 6:37 PM EDT 1 packet potassium & sodium phosphates (Phos-NaK) 280-160-250 MG packet 2 packet 2 packet, Oral, 4 times daily with meals and nightly, First dose (after last modification) on 09/03/25 at 1300, Until Discontinued, Routine Given 09/12/2025 4:46 PM EST 2 packets Given 09/12/2025 1:02 PM EST 2 packets Given 09/12/2025 8:58 AM EST 2 packets potassium chloride (Klor-Con) packet 20 mEq 20 mEq, Oral, Once, 1 dose, On Marcela 09/01/25 at 1600, Routine Given 09/01/2025 5:12 PM EDT 20 mEq potassium chloride (Klor-Con) packet 20 mEq 20 mEq, Oral, Once, 1 dose, On 09/04/25 at 0800, Routine Given 09/04/2025 8:21 AM EDT 20 mEq potassium chloride (Klor-Con) packet 40 mEq 40 mEq, Oral, Once, 1 dose, On Fri08/31/25 at 0930, Routine Given 2025 10:18 AM EDT 40 mEq potassium chloride (Klor-Con) packet 40 mEq 40 mEq, Oral, Once, 1 dose, On Fri09/02/25 at 0845, Routine Given 09/02/2025 8:33 AM EDT 40 mEq potassium chloride (Klor-Con) packet 40 mEq 40 mEq, Oral, 2 times daily, 2 doses, First dose on 09/03/25 at 1300, Last dose on 09/03/25 at 2100, Routine Given 09/03/2025 8:26 PM EDT 40 mEq Given 09/03/2025 1:49 PM EDT 40 mEq potassium chloride CR (Klor-Con) ER tablet 40 mEq 40 mEq, Oral, Every 2 hours, 2 doses, First dose on 08/27/25 at 1300, Last dose on 08/27/25 at 1500, Routine Given 08/27/2025 1:22 PM EDT 40 mEq potassium chloride CR (Klor-Con) ER tablet 40 mEq 40 mEq, Oral, Every 4 hours, 2 doses, First dose on Marcela 09/08/25 at 0815, Last dose on Fri09/08/25 at 1215, Routine Given 09/08/2025 11:51 AM EDT 40 mEq Given 09/08/2025 8:03 AM EDT 40 mEq potassium chloride IVPB 20 mEq 20 mEq, Intravenous, Every 2 hours, 2 doses, First dose on Fri09/02/25 at 0845, Last dose on Fri09/02/25 at 1045, RoutineIndications:Hypokalemia New Bag 09/02/2025 11:13 AM EDT 20 mEq 25 mL/hr New Bag 09/02/2025 8:31 AM EDT 20 mEq 25 mL/hr potassium phosphates 30 mmol in sodium chloride 0.9 % 250 mL infusion 30 mmol, Intravenous, Once, 1 dose, On 08/27/25 at 1140, Routine New Bag 08/27/2025 12:16 PM EDT 30 mmol potassium phosphates 30 mmol in sodium chloride 0.9 % 250 mL infusion 30 mmol, Intravenous, Once, 1 dose, On 08/28/25 at 0830, Routine New Bag 08/28/2025 10:46 AM EDT 30 mmol prochlorperazine (Compazine) injection 10 mg 10 mg, Intravenous, Once, 1 dose, On Fri08/26/25 at 1440, STAT Given 08/26/2025 3:00 PM EDT 10 mg prochlorperazine (Compazine) injection 2.5 mg 2.5 mg, Intravenous, Every 6 hours PRN, Starting on 08/27/25 at 1513, Until Marcela 09/01/25 at 1844, Routine, nausea, vomiting Given 08/27/2025 5:37 PM EDT 2.5 mg prochlorperazine (Compazine) injection 2.5 mg 2.5 mg, Intravenous, Every 6 hours PRN, Starting on Marcela 09/01/25 at 1842, Until 09/12/25 at 1951, Routine, nausea, vomiting Given 09/01/2025 8:43 PM EDT 2.5 mg prochlorperazine (Compazine) injection 5 mg 5 mg, Intramuscular, Every 6 hours PRN, Starting on Fri09/01/25 at 1842, Until Fri09/12/25 at 1951, Routine, nausea, vomiting prochlorperazine (Compazine) suppository 25 mg 25 mg, Rectal, Every 12 hours PRN, Starting on Fri09/01/25 at 1842, Until Fri09/12/25 at 1951, Routine, nausea, vomiting prochlorperazine (Compazine) tablet 10 mg 10 mg, Oral, Every 6 hours PRN, Starting on Fri08/26/25 at 1921, Until Fri09/12/25 at 1951, Routine, nausea, vomiting Given 08/28/2025 1:30 AM EDT 10 mg Given 08/26/2025 7:52 PM EDT 10 mg prochlorperazine (Compazine) tablet 5 mg 5 mg, Oral, Every 6 hours PRN, Starting on Fri09/01/25 at 1842, Until Fri09/12/25 at 195, Routine, nausea, vomiting rosuvastatin (Crestor) tablet 10 mg 10 mg, Oral, Daily, First dose on Fri08/26/25 at 1925, Until Discontinued Given 09/12/2025 8:58 AM EST 10 mg Given 09/11/2025 8:51 AM EST 10 mg Given 09/10/2025 8:10 AM EDT 10 mg scopolamine (Transderm-Scop) patch 1 patch 1 patch, Transdermal, Every 72 hours, First dose on Fri08/27/25 at 1515, Until Discontinued, Routine Medication Applied 09/02/2025 3:41 PM EDT 1 patch Behind Left Ear Medication Applied 08/30/2025 2:29 PM EDT 1 patch Behind Right Ear Medication Applied 08/27/2025 3:51 PM EDT 1 patch Behind Left Ear sodium bicarbonate tablet 1,300 mg 1,300 mg, Oral, 2 times daily, First dose on Fri08/31/25 at 1330, Until Discontinued, Routine Given 09/12/2025 8:58 AM EST 1,300 mg Given 09/11/2025 8:38 PM EST 1,300 mg Given 09/11/2025 8:50 AM EST 1,300 mg sodium chloride (Amoret) 0.65 % nasal spray 1 spray 1 spray, Each Nostril, As needed, Starting on 09/03/25 at 1033, Until 09/12/25 at 1951, Routine, congestion Given 09/03/2025 1:49 PM EDT 1 spray Sodium Phosphate-NaCl IVPB 15 mmol 15 mmol, Intravenous, Once, 1 dose, On Fri08/26/25 at 1420, Routine Given 08/26/2025 3:00 PM EDT 15 mmol 62.5 mL/hr sodium phosphates 30 mmol in sodium chloride 0.9 % 500 mL IVPB 30 mmol, Intravenous, Once, 1 dose, On Fri09/09/25 at 0300, Routine New Bag 09/09/2025 3:17 AM EDT 30 mmol 138.8 mL/hr tamsulosin (Flomax) 24 hr capsule 0.8 mg 0.8 mg, Oral, Daily, First dose on Fri09/06/25 at 1100, Until Discontinued, Routine Given 09/12/2025 8:58 AM EST 0.8 mg Given 09/11/2025 8:51 AM EST 0.8 mg Given 09/10/2025 8:10 AM EDT 0.8 mg Vancomycin HCl 50 MG/ML oral solution 125 mg 125 mg, Oral, 4 times daily, 55 doses, First dose on Fri09/07/25 at 1230, Last dose on Fri09/20/25 at 2200, Routine Given 09/12/2025 2:57 PM EST 125 mg Given 09/12/2025 8:57 AM EST 125 mg Given 09/11/2025 10:22 PM EST 125 mg documented in this encounter Active and Recently Administered Medications Due to Daylight Saving Time, this section may contain times in both EDT and EST. Scheduled Medication Order 09/10/2025 09/11/2025 09/12/2025 apixaban (Eliquis) tablet 5 mg 5 mg, Oral, 2 times daily, First dose on Fri08/26/25 at 2100, Until Discontinued, Routine 0646 (Held by provider - Provider: Bri Genao DO - Reason: Upcoming test/procedure - Comment: hematuria)0830 (Unheld by provider - Provider: Joyce Lucio MD)0830 (Held by provider - Provider: Joyce Lucio MD - Reason: Upcoming test/procedure - Comment: hematuria)0900 (Dose Auto Held - Provider: Joyce Lucio MD)2100 (Dose Auto Held - Provider: Joyce Lucio MD) 0900 (Dose Auto Held - Provider: Joyce Lucio MD)2100 (Dose Auto Held - Provider: Joyce Lucio MD) 0900 (Dose Auto Held - Provider: Joyce Lucio MD)0910 (Unheld by provider - Provider: Joyce Lucio MD) finasteride (Proscar) tablet 5 mg 5 mg, Oral, Daily, First dose on Marcela 09/08/25 at 1045, Until Discontinued, Routine 0809 (Given - Provider: Tatiana Aranda RN) 0852 (Given - Provider: Nancy Hale RN) 0858 (Given - Provider: Nancy Hale RN) heparin flush (porcine) 100 UNIT/ML injection 500 Units (COMPLETED) 500 Units, Intracatheter, Once, 1 dose, On 09/12/25 at 1600, Routine 1646 (Given - Provid er: Nancy Hale RN) lactated Ringer's bolus 500 mL (COMPLETED) 500 mL, Intravenous, Once, 1 dose, On 09/11/25 at 1115, Administer over 2 Hours, Routine 1018 (New Bag - Provider: Nancy Hale RN) lactated Ringer's bolus 500 mL (COMPLETED) 500 mL, Intravenous, Once, 1 dose, On 09/11/25 at 1415, Administer over 2 Hours, Routine 1332 (New Bag - Provider: Nancy Hale RN) magic mouthwash BLM (FIRST-Mouthwash) suspension 15 mL 15 mL, Swish & Spit, 4 times daily before meals and nightly, First dose on 08/28/25 at 0915, Until Discontinued, Routine 0809 (Given - Provider: Tatiana Aranda RN)1143 (Given - Provider: Tatiana Aranda RN)1757 (Given - Provider: Tatiana Aranda RN)2116 (Given - Provider: Ana Cristina Yo RN) 0850 (Given - Provider: Nancy Hale RN)1216 (Given - Provider: Nancy Hale RN)1646 (Given - Provider: Nancy Hale RN)2038 (Given - Provider: Oksana Santos, YAHAIRA) 0858 (Given - Provider: Nancy Hale RN)1302 (Given - Provider: Nancy Hale RN)1646 (Given - Provider: Nancy Hale RN) nystatin (Mycostatin) 834263 UNIT/ML suspension 500,000 Units () 500,000 Units (5 mL), Swish & Swallow, 4 times daily, 56 doses, First dose on 08/28/25 at 0915, Last dose on 09/10/25 at 2200, Routine 0809 (Given - Provider: Tatiana Aranda RN)1417 (Given - Provider: Tatiana Aranda RN)1757 (Given - Provider: Tatiana Aranda RN)211 (Given - Provider: Ana Cristina Yo, YAHAIRA) pantoprazole (Protonix) EC tablet 40 mg 40 mg, Oral, Daily before breakfast, First dose (after last modification) on 08/27/25 at 0930, Until Discontinued, Routine 0810 (Given - Provider: Tatiana Aranda RN) 0851 (Given - Provider: Nancy Hale RN) 0633 (Given - Provider: Oksana Santos, YAHAIRA) potassium & sodium phosphates (Phos-NaK) 280-160-250 MG packet 2 packet 2 packet, Oral, 4 times daily with meals and nightly, First dose (after last modification) on 09/03/25 at 1300, Until Discontinued, Routine 0809 (Given - Provider: Tatiana Aranda RN)1143 (Given - Provider: Tatiana Aranda, YAHAIRA)1757 (Given - Provider: Tatiana Aranda, YAHAIRA)2115 (Given - Provider: Ana Cristina Yo, YAHAIRA) 0850 (Given - Provider: Nancy Hale RN)1216 (Given - Provider: Nancy Hale RN)1646 (Given - Provider: Nancy Hale RN)2038 (Given - Provider: Oksana Santos RN) 0858 (Given - Provider: Nancy Hale RN)1302 (Given - Provider: Nancy Hale RN)1646 (Given - Provider: Nancy Hale RN) rosuvastatin (Crestor) tablet 10 mg 10 mg, Oral, Daily, First dose on Fri08/26/25 at 1925, Until Discontinued 0810 (Given - Provider: Tatiana Aranda RN) 0851 (Given - Provider: Nancy Hale RN) 0858 (Given - Provider: Nancy Hale RN) sodium bicarbonate tablet 1,300 mg 1,300 mg, Oral, 2 times daily, First dose on Fri08/31/25 at 1330, Until Discontinued, Routine 0809 (Given - Provider: Tatiana Aranda RN)2116 (Given - Provider: Ana Cristina Yo RN) 0850 (Given - Provider: Nancy Hale RN)2038 (Given - Provider: Oksana Santos RN) 0858 (Given - Provider: Nancy Hale RN) tamsulosin (Flomax) 24 hr capsule 0.8 mg 0.8 mg, Oral, Daily, First dose on Fri09/06/25 at 1100, Until Discontinued, Routine 0810 (Given - Provider: Tatiana Aranda RN) 0851 (Given - Provider: Nancy Hale RN) 0858 (Given - Provider: Nancy Hale RN) Vancomycin HCl 50 MG/ML oral solution 125 mg 125 mg, Oral, 4 times daily, 55 doses, First dose on Fri09/07/25 at 1230, Last dose on Fri09/20/25 at 2200, Routine 0810 (Given - Provider: Tatiana Aranda RN)1417 (Given - Provider: Tatiana Aranda RN)1758 (Given - Provider: Tatiana Aranda RN)2115 (Given - Provider: Ana Cristina Yo, YAHAIRA) 0852 (Given - Provider: Nancy Hale RN)1409 (Given - Provider: Nancy Hale RN)1742 (Given - Provider: Nancy Hale RN)2222 (Given - Provider: Oksana Santos RN) 0857 (Given - Provider: Nancy Hale, YAHAIRA)1457 (Given - Provider: Nancy Hale RN)1800 (Canceled Entry - Provider: Automatic Discharge Provider - Comment: Automatically canceled at discontinue of medication order) PRN Medication Order 09/10/2025 09/11/2025 09/12/2025 HYDROcodone-acetaminophe n ([place]) 5-325 MG per tablet 5 mg of hydrocodone 5 mg of hydrocodone, Oral, Every 6 hours PRN, Starting on 08/28/25 at 0122, Until 09/12/25 at 1950, Routine, Moderate/Severe Pain > or =3: CPOT; > or =4: FLACC, PAINAD, NPASS, NRS, Apple-Lynne Faces; > or =5: DVPRS, NIPS , severe pain 2114 (Given - Provider: Ana Cristina Yo RN) lidocaine (Uro-Jet) 2 % gel 1 Application Urethral, As needed, Starting on Marcela 09/08/25 at 0822, Until Fri09/12/25 at 1950, Routine, Mild + Pain > or =1: CPOT, DVPRS, FLACC, PAINAD, NPASS, NRS, Apple-Lynne Faces; > or =2: NIPS loperamide (Imodium A-D) tablet 2 mg 2 mg, Oral, 4 times daily PRN, Starting on 09/12/25 at 0909, Until Fri09/12/25 at 1950, Routine, diarrhea 0932 (Given - Provider: Nancy Hale RN) melatonin tablet 6 mg 6 mg, Oral, Nightly PRN, Starting on 08/27/25 at 2330, Until Fri09/12/25 at 1950, Routine, sleep 2114 (Given - Provider: Ana Cristina Yo, YAHAIRA) 2037 (Given - Provider: Oksana Santos RN) ondansetron (Zofran) 4 MG/5ML solution 8 mg(Linked Group 1) 8 mg, Oral, Every 6 hours PRN, Starting on 08/27/25 at 1514, Until Fri09/12/25 at 1950, Routine, nausea, vomiting 2114 (See Alternative - Provider: Ana Cristina oY, YAHAIRA) ondansetron (Zofran) injection 8 mg(Linked Group 1) 8 mg, Intravenous, Every 6 hours PRN, Starting on 08/27/25 at 1514, Until Fri09/12/25 at 1950, Routine, vomiting, nausea 2114 (See Alternative - Provider: Ana Cristina Yo, YAHAIRA) ondansetron ODT (Zofran-ODT) disintegrating tablet 8 mg(Linked Group 1) 8 mg, Oral, Every 6 hours PRN, Starting on 08/27/25 at 1514, Until Fri09/12/25 at 1950, Routine, nausea, vomiting 2114 (Given - Provider: Ana Cristina Yo RN) prochlorperazine (Compazine) injection 2.5 mg(Linked Group 2) 2.5 mg, Intravenous, Every 6 hours PRN, Starting on Marcela 09/01/25 at 1842, Until Fri09/12/25 at 1950, Routine, nausea, vomiting prochlorperazine (Compazine) injection 5 mg(Linked Group 2) 5 mg, Intramuscular, Every 6 hours PRN, Starting on Marcela 09/01/25 at 1842, Until Fri09/12/25 at 1950, Routine, nausea, vomiting prochlorperazine (Compazine) suppository 25 mg(Linked Group 2) 25 mg, Rectal, Every 12 hours PRN, Starting on Marcela 09/01/25 at 1842, Until Fri09/12/25 at 1950, Routine, nausea, vomiting prochlorperazine (Compazine) tablet 10 mg 10 mg, Oral, Every 6 hours PRN, Starting on Fri08/26/25 at 1921, Until Fri09/12/25 at 1950, Routine, nausea, vomiting prochlorperazine (Compazine) tablet 5 mg(Linked Group 2) 5 mg, Oral, Every 6 hours PRN, Starting on Marcela 09/01/25 at 1842, Until Fri09/12/25 at 1950, Routine, nausea, vomiting sodium chloride (Amoret) 0.65 % nasal spray 1 spray 1 spray, Each Nostril, As needed, Starting on 09/03/25 at 1033, Until Fri09/12/25 at 195, Routine, congestion Linked Groups Order Group 1: ondansetron ODT (Zofran-ODT) disintegrating tablet 8 mgJump to med 8 mg, Oral, Every 6 hours PRN, Starting on 08/27/25 at 1514, Until Fri09/12/25 at 1950, Routine, nausea, vomiting Or ondansetron (Zofran) injection 8 mgJump to med 8 mg, Intravenous, Every 6 hours PRN, Starting on 08/27/25 at 1514, Until Fri09/12/25 at 1950, Routine, vomiting, nausea Or ondansetron (Zofran) 4 MG/5ML solution 8 mgJump to med 8 mg, Oral, Every 6 hours PRN, Starting on 08/27/25 at 1514, Until Fri09/12/25 at 1950, Routine, nausea, vomiting Group 2: prochlorperazine (Compazine) tablet 5 mgJump to med 5 mg, Oral, Every 6 hours PRN, Starting on Marcela 09/01/25 at 1842, Until Fri09/12/25 at 1950, Routine, nausea, vomiting Or prochlorperazine (Compazine) suppository 25 mgJump to med 25 mg, Rectal, Every 12 hours PRN, Starting on Marcela 09/01/25 at 1842, Until Fri09/12/25 at 1950, Routine, nausea, vomiting Or prochlorperazine (Compazine) injection 2.5 mgJump to med 2.5 mg, Intravenous, Every 6 hours PRN, Starting on Marcela 09/01/25 at 1842, Until Fri09/12/25 at 1950, Routine, nausea, vomiting Or prochlorperazine (Compazine) injection 5 mgJump to med 5 mg, Intramuscular, Every 6 hours PRN, Starting on Marcela 09/01/25 at 1842, Until Fri09/12/25 at 1950, Routine, nausea, vomiting documented in this encounter Additional Health Concerns Infection Onset Date Last Indicated Resolved Time C. difficile 08/14/2025 08/26/2025 Gastrointestinal Rule-Out 08/26/2025 08/26/2025 10:36 PM EDT C. difficile Rule-Out 08/27/2025 08/26/202508/27/ 2025 1:42 PM EDT Assessment Noted Time PHQ-9 Depression Total Score: 0 08/18/20 25 11:58 AM EDT A fall risk assessment has been complete d for the patient 08/20/2025 3:25 PM EDT A Body Mass Index follow-up plan has been documented for the patient 09/12/2025 4:57 PM EST documented as of this encounter Care Teams Assistant Store Manager Trainee Relationship Specialty Start Date End Date Darius Ken MD [address] [place] [id number] PCP - General Internal Medicine 08/23/24 documented as of this encounter
--- OUTSIDE RECORDS SUMMARY | 2025-09-13 13:15 | XMS_ITS | Encounter Summary ---
Author Organization Healthcare Address [address] [id number] Care Team Providers Care Poultry Buyer Name Role Phone Darius Ken MD Primary Care Provider [phone] Reason for Visit * Auth/Cert (Routine) Specialty Diagnoses / Procedures Referred By Contac t Referred To Contact Diagnoses Sepsis (CMS/HCC) Neutropenic Fever Celine Chan MD [address] [place] [address] Phone: tel: fax: [facility] [address] [place] [phone] Phone: tel: Referral ID Status Reason Start Date Expiration Date Visits Re quested Visits Authorized [id number] 1 1 Encounter Details Date Type Department Care Team (Latest Contact Info) Description 09/13/2025 1:15 PM EST Clinical Support [facility] [address] [place] [address] Adenocarcinoma of gastroesophageal junction Social History Tobacco Use Types Packs/Day Years Used Date Smoking Tobacco: Never Smokeless Tobacco: Never Alcohol Use Standard Drinks/Week Comments Not Currently 1 (1 standard drink = 0.6 oz pur e alcohol) PHQ-2 Answer Date Recorded Patient Health Questionnaire-2 Score 0 08/18/2025 PHQ-9 Answer Date Recorded Patient Health Questionnaire-9 Score 0 08/18/2025 Humiliation, Afraid, Rape, and Kick questionnair e Answer Date Recorded Within the last year, have y ou been afraid of your partner or ex-partner? No 08/29/2025 Within the last year, have y ou been humiliated or emotionally abused in other ways by your partner or ex-partner? No Within the last year, have y ou been kicked, hit, slapped, or otherwise physically hurt by your partner or ex-partner? No 08/29/2025 Within the last year, have y ou been raped or forced to have any kind of sexual activity by your partner or ex-partner? No 08/29/2025 Hunger Vital Sign Answer Date Recorded Within the past 12 months, y ou worried that your food would run out before you got the money to buy more. Never true 08/29/20 Within the past 12 months, t he food you bought just didn't last and you didn't have money to get more. Never true 08/29/2025 PRAPARE - Transportation Answer Date Re corded In the past 12 months, has l ack of transportation kept you from medical appointments or from getting medications? No 08/11 In the past 12 months, has l ack of transportation kept you from meetings, work, or from getting things needed for daily living? No 08/29/2025 Housing Stability Vital Sign Answer Mundo e Recorded In the last 12 months, was t here a time when you were not able to pay the mortgage or rent on time? No 08/29/2025 Number of Times Moved in the Last Year Not on fi le 08/29/2025 At any time in the past 12 m [facility], were you homeless or living in a m[facility] (including now)? No 08/29/2025 [facility] Utilities Answer Date Recorded In the past 12 months has th e Clerk, gas, oil, or water [employer] threatened to shut off services in your home? No 08/29/2025 Sex and Gender Information Value Date Recorded Sex Assigned at Male 07/23/2024 9:40 AM EDT Legal Sex Male 8:50 PM EDT Gender Identity Male 07/23/2024 9:40 AM EDT Sexual Orientation Not on file documented as of this encounter Miscellaneous Notes * Clinician Note - Zuleima Herrmann RN - 09/13/2025 1:15 PM EST Port accessed and labs obtained. documented in this encounter Plan of Treatment Upcoming Encounters Date Type Department Care Team (Latest Contact Info) Description 10/26/2025 2:45 PM EST Office Visit [facility] [address] [facility]nd [place] [phone] Kim Machado MD [address] [place] [address] 10/27/2025 11:00 AM EST Clinical Support [facility] [address], [address] [place] [phone] 11/17/2025 7:50 AM EST Clinical Support [facility] Mult[facility] On[facility] [address] [place] [phone] 11/17/2025 8:00 AM EST Office Visit [facility] [address] [place] [phone] Aristides Reina MD [address] [place], [place] [phone] 11/17/2025 2:00 PM EST Office Visit [facility] Nephrology, Bone [facility] Mineral Metabolism [address] [facility], [address] [place] [address] 11/21/2025 2:00 PM EST Appointment [facility] [address] [place] [phone] 12/01/2025 1:30 PM EST Office Visit [facility] [address] [place] [address] Yanely Rock DO [address] [place] [address] 12/14/2025 10:00 AM EST Office Visit [facility] [place] [address] [facility], [address] [place] [address] Juarez Recinos MD [address] [place] [address] 01/13/2026 12:00 PM EST Office Visit [facility] [address] [place] [phone] Eros Mejia MD [address] [place] [address] documented as of this encounter Procedures Procedure Name Priority Date/Time Associated Diagnosis Comments TSH REFLEX FT4 Routine 09/13/2025 12:51 PM EST Adenocarcinoma of gastroesophageal junction CBC WITH AUTO DIFFERENTIAL Routine 09/13/2025 12:51 PM EST Adenocarcinoma of gastroesophageal junction COMPREHENSIVE METABOLIC PANEL, PLASMA Routine 09/13/2025 12:51 PM EST Adenocarcinoma of gastroesophageal junction documented in this encounter Results * TSH reflex FT4 (09/13/2025 12:51 PM EST) Thyroid Stimulating Hormone, Plasma 1.25 0.40 - 4.20 uIU/mL 09/13/2025 2:01 PM EST [facility] Blood Venous blood specimen / Unknown (Central Line) Existing Catheter / Unknown 09/13/2025 12:51 PM EST 09/13/2025 1:22 PM EST us Salome Arrieta MD LAB BLOOD ORDERABLES Final Resu lt [facility] [address] [place] [address] * (ABNORMAL) Comprehensive metabolic panel (09/13/2025 12:51 PM EST) Glucose, Plasma 140(H) 74 - 99 mg/dL 09/13/2025 2:01 PM EST [facility] BUN, Plasma 10 8 - 23 mg/dL 09/13/2025 2:01 PM [facility] Creatinine, Plasma 1.15 0.70 - 1.20 mg/dL 09/13/2025 2:01 PM [facility] BUN/Creatinine Ratio 9 09/13/2025 2:01 PM [facility] Sodium, Plasma 133(L) 136 - 145 mmol/L 09/13/2025 2:01 PM [facility] Potassium, Plasma 4.0 3.6 - 4.9 mmol/L 09/13/2025 2:01 PM [facility] Chloride, Plasma 101 97 - 107 mmol/L 09/13/2025 2:01 PM [facility] CO2, Plasma 25 22 - 29 mmol/L 09/13/2025 2:01 PM [facility] Anion Gap 7 6 - 16 mmol/L 09/13/2025 2:01 PM [facility] Total Calcium, Plasma 8.2(L) 8.9 - 10.2 mg/dL 09/13/2025 2:01 PM [facility] Total Protein 5.8(L) 6.3 - 7.9 g/dL 09/13/2025 2:01 PM [facility] Albumin, Plasma 2.5(L) 3.5 - 5.2 g/dL 09/13/2025 2:01 PM [facility] AST, Plasma 24 10 - 50 U/L 09/13/2025 2:01 PM [facility] ALT, Plasma 24 10 - 50 U/L 09/13/2025 2:01 PM [facility] Alkaline Phosphatase, Plasma 84 40 - 115 U/L 09/13/2025 2:01 PM [facility] Total Bilirubin, Plasma 0.2 0.2 - 1.1 mg/dL 09/13/2025 2:01 PM [facility] eGFRcr 68.0 mL/min/1.7 3m*2 09/13/2025 2:01 PM [facility] Comment:Reported eGFRcr in m L/min/1.73m2 is based the CKD-EPI 2020 equation that does not use a race coefficient. Blood Venous blood specimen / Unknown (Central Line) Existing Catheter / Unknown 09/13/2025 12:51 PM EST 09/13/2025 1:22 PM EST us Salome Arrieta MD LAB BLOOD ORDERABLES Final Resu lt [facility] [address] [place] [address] * (ABNORMAL) CBC and differential (09/13/2025 12:51 PM EST) WBC Count 7.06 3.70 - 10.30 10*3/uL LAB HEMATOLOGY METHOD 09/13/2025 1:00 PM EST [facility] RBC Count 2.95(L) 4.60 - 6.10 10*6/uL LAB HEMATOLOGY METHOD 09/13/2025 1:00 PM EST [facility] HGB 8.6(L) 13.7 - 17.5 g/dL LAB HEMATOLOGY METHOD 09/13/2025 1:00 PM EST [facility] HCT 27.1(L) 40.0 - 51.0 % LAB HEMATOLOGY METHOD 09/13/2025 1:00 PM EST [facility] Platelet Count 418(H) 155 - 369 10*3/uL LAB HEMATOLOGY METHOD 09/13/2025 1:00 PM EST [facility] MCV 92 79 - 98 fL LAB HEMATOLOGY METHOD 09/13/2025 1:00 PM EST [facility] MCH 29.2 26.0 - 32.0 pg LAB HEMATOLOGY METHOD 09/13/2025 1:00 PM EST [facility] MCHC 31.7 30.7 - 35.5 g/dL LAB HEMATOLOGY METHOD 09/13/2025 1:00 PM EST [facility] RDW 14.2 11.5 - 14.5 % LAB HEMATOLOGY METHOD 09/13/2025 1:00 PM EST [facility] MPV 8.9 8.8 - 12.5 fL LAB HEMATOLOGY METHOD 09/13/2025 1:00 PM EST [facility] nRBC 0.0 <=0.0 per 100 WBCs LAB HEMATOLOGY METHOD 09/13/2025 1:00 PM EST [facility] Differential Type Automated LAB HEMATOLOGY METHOD 09/13/2025 1:00 PM EST [facility] Neutrophils % 65 % LAB HEMATOLOGY METHOD 09/13/2025 1:00 PM EST [facility] Lymphocytes % 16 % LAB HEMATOLOGY METHOD 09/13/2025 1:00 PM EST [facility] Monocytes % 13 % LAB HEMATOLOGY METHOD 09/13/2025 1:00 PM EST [facility] Eosinophils % 4 % LAB HEMATOLOGY METHOD 09/13/2025 1:00 PM EST [facility] Basophils % 1 % LAB HEMATOLOGY METHOD 09/13/2025 1:00 PM EST [facility] Immature Granulocytes % 1 % LAB HEMATOLOGY METHOD 09/13/2025 1:00 PM EST [facility] Neutrophils Absolute 4.60 1.60 - 6.10 10*3/uL LAB HEMATOLOGY METHOD 09/13/2025 1:00 PM EST [facility] Lymphocytes Absolute 1.10(L) 1.20 - 3.90 10*3/uL LAB HEMATOLOGY METHOD 09/13/2025 1:00 PM EST [facility] Monocytes Absolute 0.93(H) 0.30 - 0.90 10*3/uL LAB HEMATOLOGY METHOD 09/13/2025 1:00 PM [facility] Eosinophils Absolute 0.30 0.00 - 0.50 10*3/uL LAB HEMATOLOGY METHOD 09/13/2025 1:00 PM [facility] Basophils Absolute 0.09 0.00 - 0.10 10*3/uL LAB HEMATOLOGY METHOD 09/13/2025 1:00 PM EST [facility] Immature Granulocytes Absolute 0.04 0.00 - 0.06 10*3/uL LAB HEMATOLOGY METHOD 09/13/2025 1:00 PM EST [facility] Blood Venous blood specimen / Unknown (Central Line) Existing Catheter / Unknown 09/13/2025 12:51 PM EST 09/13/2025 12:57 PM EST Narrative [facility] - 09/13/2025 1:00 PM EST Therapeutic decision making should be based on absolute values, rather than percentages. us Salome Arrieta MD LAB BLOOD ORDERABLES Final Resu lt [facility] [address] [place] [address] documented in this encounter Visit Diagnoses Diagnosis Adenocarcinoma of gastroesophageal junction documented in this encounter Additional Health Concerns Infection Onset Date Last Indicated Resolved Time C. difficile 08/14/2025 08/26/2025 Assessment Noted Time PHQ-9 Depression Total Score: 0 08/18/20 25 11:58 AM EDT A fall risk assessment has been complete d for the patient 09/13/2025 2:42 PM EST A Body Mass Index follow-up plan has been documented for the patient 09/12/2025 4:57 PM EST documented as of this encounter Care Teams Poultry Buyer Relationship Specialty Start Date End Date Darius Ken MD [address] [place] [id number] PCP - General Internal Medicine 08/23/24 documented as of this encounter
--- OUTSIDE RECORDS SUMMARY | 2025-09-13 13:30 | XMS_ITS | Encounter Summary ---
Author Organization Healthcare Address [address] [place] [id number] Care Team Providers Care Hand Cutter Name Role Phone Darius Ken MD Primary Care Provider [phone] Reason for Referral * Consultation (Urgent) - Closed Specialty Diagnoses / Procedures Referred By Contac t Referred To Contact Urology Diagnoses Urinary retention Salome Arrieta MD [address] [address] Phone: tel: fax: [facility] [address] [place] [address] Phone: tel: fax: Referral ID Status Reason Start Date Expiration Date V isits Requested Visits Authorized [id number] Closed Specialty Services Required 09/13/2025 03/15/2027 1 1 Reason for Visit * Reason Comments Follow-up * Auth/Cert (Routine) Specialty Diagnoses / Procedures Referred By Contac t Referred To Contact Diagnoses Sepsis (CMS/HCC) Neutropenic Fever Celine Chan MD [address] [place] [address] Phone: tel: fax: [facility] Emergency Department [address] [place] [address] Phone: tel: Referral ID Status Reason Start Date Expiration Date Visits Re quested Visits Authorized [id number] 1 1 Encounter Details Date Type Department Care Team (Latest Contact Info) Description 09/13/2025 1:30 PM EST Office Visit [facility] [address] [place] [phone] Aristides Reina MD [address] [place] [address] Urinary retention (Primary Dx); Prostate enlargement; Adenocarcinoma of gastroesophageal junction Social History Tobacco Use Types Packs/Day Years Used Date Smoking Tobacco: Never Smokeless Tobacco: Never Tobacco Cessation:Counseling Given: Not Answered Alcohol Use Standard Drinks/Week Comments Not Currently [...] any time in the past 12 m [facility], were you homeless or living in a fci (including now)? No 08/29/2025 [facility] Utilities Answer Date Recorded In the past 12 months has th e [employer], gas, oil, or water company threatened to [...] Sign Reading Time Taken Comments Blood Pressure 97/58 09/13/2025 1:10 PM EST Pulse 108 09/13/2025 1:10 PM EST Temperature 36.5 C (97.7 F) 09/13/2025 1:10 PM EST Respiratory Rate 18 09/13/2025 1:10 PM EST Oxygen Saturation 97% 09/13/2025 1:10 PM EST Inhaled Oxygen Concentration - - Weight 83.2 kg (183 lb 6.8 oz) 09/13/2025 1:10 P M EST Height 182.9 cm (6') 09/13/2025 1:10 PM EST Body Mass Index 24.88 09/13/2025 1:10 PM EST documented in this encounter Miscellaneous Notes * Progress Notes - Aristides Reina MD - 09/13/2025 1:30 PM EST Images from the original note were not included. Oncology Clinic Initial Visit Patient Name: Justin Best Date of : 1955 Referring Physician:No referring provider defined for this encounter. Encounter Date: 09/13/2025 Chief Complaint: Continued management of GEJ adenocarcinoma History of present illness: Mr. Best is a 69-year-old male with a relevant past medical history of hypertension who presents to [facility] clinic for continued care of recently diagnosed GE junction adenocarcinoma. See onc history below. Past Medical History: Reviewed by me; any relevant updates made in Epic. Relevant history includes: Past Medical History[1] Oncologic History: Oncology History Overview Note Mr. Best is a 69-year-old male with a relevant past medical history of hypertension who presents to [facility] clinic today to establish care for recently [...] Fib. Started on Eliquis 08/18/2025: C1D15 completed 08/26/2025-09/12/2025: Admitted for neutropenic fever and C. Diff colitis and severe YOLI. Treated with fidaxomicin and PO vanc. Adenocarcinoma of gastroesophageal junction 07/20/2025 Initial Diagnosis Adenocarcinoma of gastroesophageal junction (CMS/HCC) 08/03/2025 - 08/18/2025 Chemotherapy leucovorin (Wellcovorin) 434 mg in dextrose [...] Administration: 5,750 mg (08/03/2025), 5,750 mg (08/18/2025) 09/13/2025 - Chemotherapy nivolumab (Opdivo) 260 mg in sodium chloride 0.9 % 100 mL IVPB, 3 mg/kg = 260 mg, Intravenous, Once, 0 of 6 cycles ipilimumab (Yervoy) 85 mg in sodium chloride 0.9 % 50 mL IVPB, 1 mg/kg = 85 mg, Intravenous, Once, 0 of 6 cycles Interval History: Last seen in this clinic on 08/18/2025. Since that time, patient received C1D15 and also received a prescheduled IVF infusion at a local hospital. Patient admitted from 08/26-09/12/2025 due to neutropenic fever, severe YOLI, and C. Diff colitis. Treated with fidaxomicin and PO vanc. Patient no longer wishes to continue cytotoxic chemotherapy and instead wishes to switch to immunotherapy only. Past Surgical History: Reviewed by me; any relevant updates made in [employer]. Relevant history includes: Surgical History[2] Family History: Reviewed by me; any relevant updates made in [employer]. Relevant history includes: Family History[3] Father with [...] file Social Connections: Unknown (08/19/2023) Received from [facility] Family and Community Support Help with Day-to-Day [...] reviewed in EMR; any changes noted in [facility]. Medications Current Medications[4] Review of Systems: Review of Systems 14 point ROS negative besides as mentioned in HPI Objective There were no vitals filed for this visit. Physical Exam Gen: NAD, ill-appearing, in wheelchair Eyes: No scleral icterus, normal conjunctivae HENT: Hearing normal, dentition normal. Mucus membranes are moist. Neck: supple, normal ROM. Lymph: no cervical or supraclav lymphadenopathy. CV: RRR, no murmurs, no peripheral edema. Resp: effort normal, CTAB GI: Abdomen is soft, nondistended, and nontender. : [place] in place with pink urine in bag MSK: No clubbing or cyanosis. Normal muscle tone. Skin: Warm, dry, no rash, no erythema, not diaphoretic, no pallor Neuro: No gross neurologic deficits. Psych: A&O x3, mood and affect normal, judgment and insight appear normal. Labs, Imaging, Pathology: Reviewed in [facility] and/or Care everywhere, notable as discussed [...] reaction (MLH1 promoter methylation study pending). PET/CT (07/27/2025): IMPRESSION: *Intense radiotracer activity at the distal esophagus/proximal stomach in the expected hiatal hernia abnormal mass with a focal gas pocket consistent with recent biopsy-proven malignancy for clinicalcorrelation. *Moderate [...] nonspecific. Recommend clinical correlation and PSA correlation. Performance Status 0: Fully active, able to carry on all pre-disease performance without restriction ECOG 2 Assessment and Plan Assessment/Plan Mr. Best is a 69-year-old male with a relevant past medical history of hypertension who presents to [facility] clinic for evaluation and management of recently diagnosed GE junction adenocarcinoma. Co-managed with Dr. Kim Marcano with thoracic surgery. 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 Pylori negative NGS pending (Caris 08/30/2025) Treatment: FLOT-D (08/03/2025 - 2025) Treatment intent: Neoadjuvant Treatment related complications: Nausea, diarrhea, hyponatremia Neutropenic fever C. Diff Colitis Performance Status: ECOG Baseline: 0 ECOG Current: 2 Plan: Discussed with patient the implication of his diagnosis including prognosis, available treatment modalities, role for possible surigcal intervention, and logistics of dewey(adjuvant) treatment and surveillance Based on PS, patient is medically fit for potential surgical intervention Due to significant side effects requiring multiple hospitalizations while on FLOT-D and MSI-H status, will consent patient for dual checkpoint inhibitor therapy with Ipilimumab and Nivolumab per the NEONIPIGA trial. Treatment schedule (12 weeks total): Nivolumab 240 mg Q14 days x 6 Ipilimumab 1 mg/kg Q6 weeks x2 Given patient has already received 1 cycle of FLOT-D, will only treat with 6 weeks of neoadjuvant Ipi/Nivo C1D1 planned for today, 09/13 Will add additional 1L IVF for today Following completion, patient get repeat imaging and be evaluated for esophagectomy. Following surgical intervention, patient will receive adjuvant Nivolumab 480 mg Q28 days for nine cycles RTC prior to C1D15 in approximately 2-3 weeks 2.) VTE risk assessment, A. Fib Currently on AC due to Afib Plan: Hold bisoprolol while experiencing orthostatic hypotension 3.) High risk for malnutrition Given location of patient's lesion and associated symptoms, patient is a high risk for calorie deficit and malnutrition Currently meeting caloric needs Plan: Will consult nutrition in the future if problems arise Discussed potential need for G-tube if unable to tolerate oral intake Encouraged patient to use dietary supplements (boost, ensure, etc) 4.) Concern for primary thyroid malignancy PET/CT from 07/27/2025 notable for focal abnormal uptake in the left side fusing into ill-defined complex nodule with soft tissue component measuring about 3.7 x 2.6 cm. Plan: Will order thyroid US and FNA to assess (Scheduled 09/22/2025) 5.) Prostate gland enlargement PET/CT from 07/27/2025 notable for enlarged prostate gland with heterogenous FDG activity PSA obtained at this visit elevated at 8.4 Plan: Patient will need additional workup to rule out benign etiology of elevated PDS prior to biopsy May benefit from multiparametric MRI Will refer to urology to initiate additional workup and to perform biopsy if needed 6.) C. Diff colitis (improving) See admission from 08/26-09/12/2025 S/p course of fidaxomicin Plan: Continue to monitor Continue PO vancomycin 7.) Urinary retention with mild hematuria Dc'd with carmona Currently on alfuzosin 10 mg every day and finasteride Seen by urology while inpatient Hematuria 2/2 traumatic carmona insertion Plan: Refer to urology Hold alfuzosin for now while experiencing orthostatic hypotension Continue finasteride Counseled on risk of orthostatic hypotension 8.) Normocytic anemia Baseline 13-14 Currently 8.6 MCV: 92 Received supportive blood transfusions while inpatient Likely multifactorial in the setting of severe infection (C. Diff, recent cytotoxic chemotherapy, inflammation) Plan: Continue to monitor Transfuse to keep Hg >7.0 9.) Orthostatic hypotension Plan: Hold alpha blockade and bisoprolol 1L IVF today with infusion Clinical Rationale: Decision to add durvalumab to SOC FLOT for neoadjuvant GEJ adenocarcinoma has been established in the Perioperative Durvalumab in Gastric and GEJ Cancer [facility] [place] trial published April 10 2025. A total [...] of adjuvant treatment was 2.3% and 4.6%. Neoadjuvant Nivolumab Plus Ipilimumab and Adjuvant Nivolumab in Localized Deficient Mismatch Repair/Microsatellite Instability-High Gastric or Esophagogastric Junction Adenocarcinoma: [facility] NE[facility] Phase II Study Between August 2019 and April 2021, 32 patients with dMMR/MSI-H gastric/GEJ adenocarcinoma were enrolled. The median age was 65.5 years (range, 40-80). Clinical stages were cT2-T3N0 (n = 9), cT2-T3N1(n = 22), and lW6I4S6 (n = 1, wrongly included). With a median follow-up of 14.9 months (95% CI, 10.6 to 17.6), 32 patients received neoadjuvant immunotherapy (27 patients completed all cycles). Neoadjuvant therapy-related grade 3/4 adverse events occurred in six patients (19%). Twenty-nine patients underwent surgery; three did not have surgery and had complete endoscopic response with tumor-freebiopsies and a normal computed tomography scan (two refused surgery and one had metastasis at inclusion). The rate of surgical morbidity (Clavien-Dindo classification) was 55% (one postoperative occurred). All 29 patients had an R0 resection, and 17 (58.6%; 90% CI, 41.8 to 74.1) had pCR (pathological T0N0). Miner tumor regression grades 1a, 1b, 2, and 3 were observed in 17 patients, three ( including two pathological T0N1), two, and seven patients, respectively. Of the 29 patients with surgery, 23 received adjuvant nivolumab. At database lock, no patient had relapse and one withoutrelapse. Case discussed with Dr. Arrieta , who was involved in the formulation of the plan above. [1] Past Medical History: Diagnosis Date Blood urine 2023 Esophageal cancer june 2025 Hypertension 1999 Kidney stone Skin cancer 2004 Stomach cancer (CMS/HCC) june 2025 [2] Past Surgical History: Procedure Laterality Date APPENDECTOMY 2020 BACK SURGERY 2001 CHOLECYSTECTOMY 1984 COLONOSCOPY 2023 GALLBLADDER SURGERY 1998 [3] Family History Problem Relation Name Age of Onset Cancer Father [4] No current facility-administered medications for this visit. Current Outpatient Medications: [START ON 09/13/2025] finasteride (Proscar) 5 MG tablet, Take 1 tablet by mouth daily. Do not crush,chew, or split., Disp: 30 tablet, Rfl: 0 HYDROcodone-acetaminophen (Tonica) 5-325 MG tablet, Take 1 tablet by mouth every 6 hours as needed for moderate pain or severe pain., Disp: 28 tablet, Rfl: 0 lidocaine (Uro-Jet) 2 % gel, Insert 1 Application into the urethra as needed for mild pain., Disp: 15 mL, Rfl: 0 melatonin tablet, Take 2 tablets by mouth at night as needed for sleep., Disp: 30 tablet, Rfl: 0 sodium chloride (Hector) 0.65 % nasal spray, Administer 1 spray into each nostril as needed for congestion., Disp: 30 mL, Rfl: 12 Vancomycin HCl 50 MG/ML oral solution, Take 2.5 mL by mouth 4 times a day for 31 doses., Disp: 77.5mL, Rfl: 0 Facility-Administered Medications Ordered in Other Visits: apixaban (Eliquis) tablet 5 mg, 5 mg, Oral, BID, Joyce Gunderson MD, 5 mg at 09/09/25 2139 finasteride (Proscar) tablet 5 mg, 5 mg, Oral, Daily, Joyce Gunderson MD, 5 mg at 09/12/25 0858 heparin flush (porcine) 100 UNIT/ML injection 500 Units, 500 Units, Intracatheter, Once, Joyce Gunderson MD HYDROcodone-acetaminophen (Tonica) 5-325 MG per tablet 5 mg of hydrocodone, 5 mg of hydrocodone, Oral, q6h PRN, Jayne Abrams DO, 5 mg of hydrocodone at 09/10/25 2115 lidocaine (Uro-Jet) 2 % gel 1 Application, 1 Application, Urethral, PRN, Joyce Gunderson MD, 1 Application at 09/08/25 1005 loperamide (Imodium A-D) tablet 2 mg, 2 mg, Oral, 4x daily PRN, Joyce Gunderson MD, 2 mg at 09/12/25 0932 magic mouthwash BLM (FIRST-Mouthwash) suspension 15 mL, 15 mL, Swish & Spit, Before meals &nightly, Jadon Rangel MD, 15 mL at 09/12/25 1302 melatonin tablet 6 mg, 6 mg, Oral, Nightly PRN, Jayne Abrams DO, 6 mg at 09/11/252037 ondansetron ODT (Zofran-ODT) disintegrating tablet 8 mg, 8 mg, Oral, q6h PRN, 8 mg at 09/10/252114OR ondansetron (Zofran) injection 8 mg, 8 mg, Intravenous, q6h PRN, 8 mg at 09/02/252014 OR ondansetron (Zofran) 4 MG/5ML solution 8 mg, 8 mg, Oral, q6h PRN, Jadon Rangel MD pantoprazole (Protonix) EC tablet 40 mg, 40 mg, Oral, Daily before breakfast, Jadon Rangel MD, 40 mg at 09/12/25 0633 potassium & sodium phosphates (Phos-NaK) 280-160-250 MG packet 2 packet, 2 packet, Oral, With meals & nightly, Sheyla Malagon MD, 2 packet at 09/12/25 1302 prochlorperazine (Compazine) tablet 5 mg, 5 mg, Oral, q6h PRN OR prochlorperazine (Compazine) suppository 25 mg, 25 mg, Rectal, q12h PRN OR prochlorperazine (Compazine) injection 2.5 mg, 2.5 mg, Intravenous, q6h PRN, 2.5 mg at 09/01/252042 OR prochlorperazine (Compazine) injection 5 mg, 5 mg, Intramuscular, q6h PRN, Sheyla Malagon MD prochlorperazine (Compazine) tablet 10 mg, 10 mg, Oral, q6h PRN, Celine Chan MD, 10 mg at 08/28/25 0130 rosuvastatin (Crestor) tablet 10 mg, 10 mg, Oral, Daily, Celine Chan MD, 10 mg at 09/12/25 0858 sodium bicarbonate tablet 1,300 mg, 1,300 mg, Oral, BID, Sheyla Malagon MD, 1,300 mg at 09/12/25 0858 sodium chloride (Hector) 0.65 % nasal spray 1 spray, 1 spray, Each Nostril, PRN, Sheyla Malagon MD,1 spray at 09/03/25 1349 tamsulosin (Flomax) 24 hr capsule 0.8 mg, 0.8 mg, Oral, Daily, Joyce Gunderson MD, 0.8 mg at 09/12/25 0858 Vancomycin HCl 50 MG/ML oral solution 125 mg, 125 mg, Oral, 4x daily, Joyce Gunderson MD, 125 mg at 09/12/25 1457 Cosigned by Salome Arrieta MD at 09/14/2025 4:57 PM EST Associated attestation - Salome Arrieta MD - 09/14/2025 4:57 PM EST I saw and evaluated the patient with the resident/fellow. I discussed the case with the resident/fellow and agree with the findings and plan as documented. Dr. Reina counseled the patient regarding risk and benefits of immunotherapy including but not limited to immune related adverse events, pancytopenia, infection, injury to organs (kidneys, liver, nerves), nausea, vomiting and fatigue as well as possible alopecia, and provided teaching materials onthese risks. I obtained informed consent today. I have written and calculated this chemotherapy. also provided teaching sheets and education materials to the patient and answered all questions. I gave new scripts with directions on how to take supportive medications. Orders reviewed. Workup for PSA as noted , refer to urology FNA pending for thyroid. 45 minutes were spent with the patient of which 30 or more were counseling minutes regarding plan and coordination of care and follow up lab and/or scan review, scheduling, symptom management, and possible treatment side effects of anti-cancer therapy. * Progress Notes - Zuri Angeles, PharmD - 09/13/2025 1:30 PM EST Pharmacy Hematology/Oncology Patient Education Note I counseled the patient on their immunotherapy regimen, which was scheduled to start 09/13/25. The immunotherapy agents that this patient is scheduled to receive include: Ipilimumab/Nivolumab. I provided the patient with a written explanation of the drugs contained in the regimen and their expected side effects, toxicities, and adverse reactions, such as rash, diarrhea, pneumonitis, hepatitis, nephritis, fatigue and nausea/vomiting. I provided verbal explanation of the same material and providedmethods for self-monitoring. I answered all questions that the patient and/or caregiver had. The patient and/or caregiver demonstrated understanding of the material, and wished to proceed with the robby atment. Zuri Angeles PharmD, [facility] Clinical Oncology Pharmacist * Progress Notes - Zuri Angeles PharmD - 09/13/2025 1:30 PM EST Pharmacy Hematology/Oncology Treatment Note Justin Best is a 70 y.o. 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 . Study Patient: no Treatment Plan reviewed for Neoadjuvant Ipilimumab/Nivolumab every 42 days. [x] Follow-Up Clinical Review for Cycle 1 Day 1 [] Follow-Up Clinical Review for Continuous Oral [...] Labs reviewed and appropriate for treatment. Update 9/25/25: Appeal was approved, so will add durvalumab to D15 orders for both C1 and C2. 09/13/25: Mr. Best was unfortunately admitted to the hospital 08/26-09/12 with neutropenic fever, C.Diff, and adverse events from chemotherapy. Caris revealed MSI-H, so will switch to Ipi/Nivo per NEONIPIGA trial. Since he already received 2 doses of FLOT-D, planning for 6 weeks of neoadjuvant ipi/nivo (1 cycle) instead of 12 weeks. He is fatigued today after being discharged from long hospitalization last night. Will add 1L NS fluids to treatment today. Today's Wt: Wt Readings from Last 1 Encounters: 09/13/25 83.2 kg (183 lb 6.8 oz) Dosing Wt: NA Dosing Ht: NA DosingBSA: NA Recent Labs: Lab Results Component Value Date WBC 7.06 09/13/2025 HGB 8.6 (L) 09/13/2025 HCT 27.1 (L) 09/13/2025 MCV 92 09/13/2025 PLT 418 (H) 09/13/2025 Lab Results Component Value Date GLUCOSE 140 (H) 09/13/2025 CALCIUM 8.2 (L) 09/13/2025 NA 133 (L) 09/13/2025 K 4.0 09/13/2025 CO2 25 09/13/2025 CL 101 09/13/2025 BUN 10 09/13/2025 CREATININE 1.15 09/13/2025 Lab Results Component Value Date ALT 24 09/13/2025 AST 24 09/13/2025 ALKPHOS 84 09/13/2025 BILITOT 0.2 09/13/2025 Lab Results Component Value Date NEUTROABS 4.60 09/13/2025 Lab Results Component Value Date MG 1.4 (L) 09/07/2025 Lab Results Component Value Date TSH 1.25 09/13/2025 Lab Results Component Value Date URINEPRO >=300 (A) 09/07/2025 Vitals: Visit Vitals BP 97/58 Pulse 108 Temp 36.5 ??C (97.7 ??F) Resp 18 Other Relevant Monitoring: Treatment/Therapy Plan: Ipilimumab 1 mg/kg (85 mg) IV Day 1 Nivolumab 240 mg (flat dose) IV Days 1, 15, 29 Every 28 Days [x] No dose adjustments made Current Treatment Plan History: Neoadjuvant FLOT-D Cycle 1: 08/03, 08/18/25 Neoadjuvant Ipi/Nivo Cycle 1: 09/13/25, Prior Treatment History: NA Plan: Patient will return to clinic in 2 weeks. Will follow-up at that time. Pharmacist Attestation: Zuri Angeles, RadhaD, [facility] Clinical Oncology Pharmacist documented in this encounter Plan of Treatment Upcoming Encounters Date Type Department Care Team (Latest Contact Info) Description 10/26/2025 2:45 PM EST Office Visit [facility] [address] [facility], [address]nd [place] [phone] Kim Machado MD [address] [facility] [address] [place] [phone] 10/27/2025 11:00 AM EST Clinical Support [facility] Urology [address] [place] [address] 11/17/2025 7:50 AM EST Clinical Support [facility] Multidisciplinary Oncology Clinic [address] [place] [address] 11/17/2025 8:00 AM EST Office Visit [facility] Multidisciplinary Oncology Clinic [address] [place] [address] Aristides Reina MD [address] [place] [address] 11/17/2025 2:00 PM EST Office Visit [facility] Nephrology, Bone & Mineral Metabolism [address] [facility], [address] [place] [phone] 11/21/2025 2:00 PM EST Appointment [facility] [address] [facility] [place] [id number] 12/01/2025 1:30 PM EST Office Visit [facility] Urology [address] [place] [address] Yanely Rock, DO [address] [place] [address] 12/14/2025 10:00 AM EST Office Visit [facility] [place] [address] [facility], [address] [place] [address] Juarez Recinos MD [address] [place] [address] 01/13/2026 12:00 PM EST Office Visit [facility] [address] [place] [address] Eros Mejia MD [address] [place] [address] Scheduled Referrals Name Type Priority Associated Diagnoses Order Schedule Ambulatory referral to Urology Outpatient Referral Routine Urinary retention Expected: 09/13/2025 (Approximate), Expires: 03/17/2027 documented as of this encounter Results * (ABNORMAL) Prostate Specific Antigen, Diagnostic, Serum (09/13/2025 3:51 PM EST) PSA, Diagnostic, Serum 8.40(H) 0.00 - 6.50 ng/mL 09/13/2025 5:30 PM EST [facility] Blood Blood sample taken from central line / Unknown (Central Line) Existing Catheter / Unknown 09/13/2025 3:51 PM EST 09/13/2025 4:32 PM EST Narrative [facility] - 09/13/2025 5:30 PM EST Performed by [employer] electrochemiluminescent immunoassay which is standardized against the PSA [place] Reference Standard (WHO 96/670). Results obtained with different test methods or kits cannot be used interchangeably. us Salome Arrieta MD LAB BLOOD ORDERABLES Final Resu lt [facility] [address] [place] [address] documented in this encounter Visit Diagnoses Diagnosis Urinary retention- Primary Unspecified retention of urine Prostate enlargement Hypertrophy of prostate without urinary obstruction and other lower urinary tract symptoms (LUTS) Adenocarcinoma of gastroesophageal junction documented in this [...] documented as of this encounter Care Teams Hand Cutter Relationship Specialty Start Date End Date Darius Ken MD [address] [place] [address] PCP - General Internal Medicine 08/23/24 documented as of this encounter
--- OUTSIDE RECORDS SUMMARY | 2025-09-13 14:29 | XMS_ITS | Encounter Summary ---
Author Organization Healthcare Address [address] [id number] Care Team Providers Care Delivery Lead Name Role Phone Darius Ken MD Primary Care Provider [phone] Reason for Visit * Auth/Cert (Routine) Specialty Diagnoses / Procedures Referred By Contac t Referred To Contact Diagnoses Sepsis (CMS/HCC) Neutropenic Fever Celine Chan MD [address] [place] [address] Phone: tel: fax: [facility] Emergency Department [address] [place] [address] Phone: tel: Referral ID Status Reason Start Date Expiration Date Visits Re quested Visits Authorized [id number] 1 1 Encounter Details Date Type Department Care Team (Latest Contact Info) Description 09/13/2025 2:29 PM EST - 09/13/2025 11:59 PM [facility] Hospital Encounter [facility] [address] [place] [address] Adenocarcinoma of gastroesophageal junction (Primary Dx); Urinary retention; Prostate enlargement Discharge Disposition: Home or Self Care Social [...] time in the past 12 m [facility], were you homeless or living in a senior care (including now)? No 08/29/2025 [facility] Utilities Answer Date Recorded In the [...] Sign Reading Time Taken Comments Blood Pressure 104/72 09/13/2025 6:40 PM EST Pulse 90 09/13/2025 6:40 PM EST Temperature 36.4 C (97.5 F) 09/13/2025 2:42 PM EST Respiratory Rate 16 09/13/2025 2:42 PM EST Oxygen Saturation 100% 09/13/2025 2:42 PM EST Inhaled Oxygen Concentration - - Weight 83.4 kg (183 lb 13.8 oz) 09/13/2025 2:42 PM EST Height 182.9 cm (6') 09/13/2025 2:42 PM EST Body Mass Index 24.94 09/13/2025 2:42 PM EST documented in this encounter Medications at Time of Discharge famotidine (Pepcid) 20 MG tablet Take 1 tablet by mouth daily. acetaminophen (Tylenol) 500 MG tablet Take 1 tablet by mouth every 6 hours as needed for pain or fever. 5 alfuzosin (Uroxatral) 10 MG 24 hr tablet Take 1 tablet by mouth daily. 06/23/2024 5 apixaban (Eliquis) 5 MG tablet Take [...] as needed for cough. 5 HYDROcodone-acet aminophen ([place]) 5-325 MG tablet Take 1 tablet by [...] by mouth daily. 06/23/2024 5 sodium chloride ([place]) 0.65 % nasal spray Administer 1 spray into each nostril as needed for congestion. 30 mL 12 09/12/2025 5 Vancomycin HCl 50 MG/ML oral solutionIndicati ons:C. difficile colitis Take 2.5 mL by mouth 4 times a day for 31 doses. 77.5 mL 09/12/2025 5 documented as of this encounter Plan of Treatment Upcoming Encounters Date Type Department Care Team (Latest Contact Info) Description 10/26/2025 2:45 PM EST [facility] [address] [facility], 2nd [place] [address] Kim Machado MD [address] [facility] [address] [place] [address] 10/27/2025 11:00 AM EST Clinical Support [place] [facility] [address], [address] [place] [address] 11/17/2025 7:50 AM EST Clinical Support [facility] Multidisciplinary Oncology Clinic [address] [place] [address] 11/17/2025 8:00 AM EST Office Visit [facility] Multidisciplinary Oncology Clinic [address] [place] [address] Aristides Reina MD [address] [place] [address] 11/17/2025 2:00 PM EST Office Visit [facility] [address] [facility], [address] [place] [address] 11/21/2025 2:00 PM EST Appointment [facility] S Radiology [address], [address]st [place] [address] 12/01/2025 1:30 PM EST Office Visit [place] [facility] [address], [address] [place] [address] Yanely Rock, [address] [place] [address] 12/14/2025 10:00 AM EST Office Visit [facility] [address] [facility], [address] [place] [address] Juarez Recinos MD [address] [place] [address] 01/13/2026 12:00 PM EST Office Visit [facility] [address] [facility] [address] [address] [place] [address] Eros Mejia MD [address] [place] [address] documented as of this encounter Procedures Procedure Name Priority Date/Time Associated Diagnosis Comments PROSTATE SPECIFIC ANTIGEN, DIAGNOSTIC, SERUM Routine 09/13/2025 3:51 PM EST Urinary retention Prostate enlargement documented in this encounter Results * (ABNORMAL) Prostate Specific Antigen, Diagnostic, Serum (09/13/2025 3:51 PM EST) PSA, Diagnostic, Serum 8.40(H) 0.00 - 6.50 ng/mL 09/13/2025 5:30 PM EST [facility] Blood Blood sample taken from central line / Unknown (Central Line) Existing Catheter / Unknown 09/13/2025 3:51 PM EST 09/13/2025 4:32 PM EST Narrative [facility] - 09/13/2025 5:30 PM EST Performed by [employer] electrochemiluminescent immunoassay which is standardized against the PSA [place] Reference Standard (WHO 96/670). Results obtained with different test methods or kits cannot be used interchangeably. us Salome Arrieta MD LAB BLOOD ORDERABLES Final Resu lt [facility] [address] [place] [address] documented in this encounter Visit Diagnoses Diagnosis Adenocarcinoma of gastroesophageal junction- Primary Urinary retention Unspecified retention of urine Prostate enlargement Hypertrophy of prostate without urinary obstruction and other lower urinary tract symptoms (LUTS) documented in this encounter Administered Medications Inactive Administered Medications - up to 3 most recent administrations Medication Order MAR Action Action Date Dose Rate Site ipilimumab (Yervoy) 85 mg in sodium chloride 0.9 % 50 mL IVPB 85 mg (rounded from 86.9 mg = 1 mg/kg 86.9 kg Treatment plan Recorded weight), Intravenous, at 184 mL/hr, Administer over 30 Minutes, Once, Filter Required. Use 0.2 micron filter., On Fri09/13/25 at 1630, For 1 dose, Dilute in NS (Final concentration 1-2mg/mL)Indications:Adenocarc inoma of gastroesophageal junction New 09/13/2025 5:10 PM EST 85 mg 184 mL/hr nivolumab (Opdivo) 240 mg in sodium chloride 0.9 % 100 mL IVPB 240 mg, Intravenous, at 308 mL/hr, Administer over 30 Minutes, Once, Filter Required. Use 0.2 micron filter., On Fri09/13/25 at 1600, For 1 dose, NS 100 mLIndications:Adenocarcinoma of gastroesophageal junction New 09/13/2025 4:10 PM EST 240 mg 308 mL/hr sodium chloride 0.9 % bolus 1,000 mL 1,000 mL, Intravenous, Once, 1 dose, On Fri09/13/25 at 1615, Administer over 60 Minutes, RoutineIndications:Adenocarcin alvarado of gastroesophageal junction New 09/13/2025 3:53 PM EST 1,000 mL 1000 mL/hr documented in this encounter Additional Health [...] documented as of this encounter Care Teams Delivery Lead Relationship Specialty Start Date End Date Darius Ken MD [address] [place] [address] PCP - General Internal Medicine 08/23/24 documented as of this encounter
--- OUTSIDE RECORDS SUMMARY | 2025-09-21 08:45 | XMS_ITS | Encounter Summary ---
Author Organization Healthcare Address [address] [place] [address] Care Team Providers Care Indoor Plant Technician Name Role Phone Darius Ken MD Primary Care Provider [phone] Yanely Rock DO Unavailable [phone] Reason for Referral * Consultation (Routine) - Authorized Specialty Diagnoses / Procedures Referred By Broderick olivares Referred To Contact Diagnoses Atrial fibrillation, unspecified type (CMS/HCC) Jan Quiroz MD [address] [place] [address] Phone: tel: fax: Referral ID Status Reason Start Date Expiration Date V isits Requested Visits Authorized [id number] Authorized 09/21/2025 03/23/2027 1 1 Reason for Visit * Consultation (Routine) - Closed Specialty Diagnoses / Procedures Referred By Broderick olivares Referred To Contact Cardiology Diagnoses Atrial fibrillation, unspecified type (CMS/HCC) Ana Rosa Fields MD [address] [place] [address] Phone: tel: fax: Referral ID Status Reason Start Date Expiration Date V isits Requested Visits Authorized [id number] Closed Specialty Services Required 08/15/2025 02/14/2027 1 1 Encounter Details Date Type Department Care Team ([facility] st Contact Info) Description 09/21/2025 8:45 AM EST Office Visit [facility] [place] [address] 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 No 08/29/2025 [facility] Utilities Answer Date Recorded In the past 12 months has [employer], gas, oil, or water company threatened to [...] Sign Reading Time Taken Comments Blood Pressure 88/60 09/21/2025 7:49 AM EST Pulse 82 09/21/2025 7:49 AM EST Temperature - - Respiratory Rate - - Oxygen Saturation 97% 09/21/2025 7:49 AM EST Inhaled Oxygen Concentration - - Weight 84 kg (185 lb 3 oz) 09/21/2025 7:49 AM ES T Height 182.9 cm (6') 09/21/2025 7:49 AM EST Body Mass Index 25.12 09/21/2025 7:49 AM EST documented in this encounter Functional Status * Over the past 2 weeks, how often have you been bothered by any of the following problems? Question Answer Date of Assessment Author Little interest or pleasure in doing things Not at all 09/22/2025 2:32 PM EST Day, Irma Feeling down, depressed, or hopeless Not at all 09/10 2:32 PM EST Day, [place] Patient Health Questionnaire-2 Score 0 09/10 2:32 PM EST Day, [place]ma documented as of this encounter Miscellaneous Notes * Progress Notes - Juarez Recinos MD - 09/21/2025 8:45 AM EST Cardiology Clinic Consult Note Reason for consult: Atrial fibrillation Cardiovascular Problem List Atrial fibrillation Hypertension Hyperlipidemia Other Pertinent Problems GE junction adenocarcinoma (recent chemotherapy, potential future surgery) Neutropenia History Justin Best is a 70 y.o. male who is following in cardiology clinic for the below conditions. This is our first time together in clinic. History of Present Illness The patient is a male who presents for atrial fibrillation. He has a fairly new diagnosis of atrial fibrillation that was discovered during hospitalization around 08/2025 when he was admitted for gastrointestinal symptoms. At that time, anticoagulation therapy was initiated, and a 14-day Holter monitor was ordered upon discharge. Approximately two weeks later, he was readmitted with a neutropenic fever and treated for C. difficile. During this admission, he experienced gross hematuria, which was attributed to trauma from Bernstein catheter insertion, and hecontinued anticoagulation therapy upon discharge. His troponin levels were in the 30s, and his BNP levels were in the 7000s. He has been referred to cardiology for follow-up on his atrial fibrillation. He reports no bleeding complications since his hospital discharge and is unaware of any episodes ofatrial fibrillation, experiencing no associated symptoms. Occasionally, he experiences lightheadedness, which he attributes to hypotension, particularly when transitioning from a seated to standing position or after prolonged sitting. He has discontinued bisoprolol and alfuzosin and was likely on bisoprolol while wearing the continuous heart monitor. His blood pressure readings have ranged from 110/60 to 134/75. He reports no chest pain or difficulty breathing when lying supine. He has observedsome ankle edema, for which he was provided compression stockings during his hospital stay, but this symptom has not recurred since discharge. He is currently on Eliquis and Pepcid. He has two more infusions scheduled for 09/29/2025 and 10/13/2025. They plan to likely excise the tumor. Current Medications[1] Objective Blood pressure 88/60, pulse 82, height 1.829 m (6'), weight 84 kg (185 lb 3 oz), SpO2 97%. General: Awake, alert, NAD. CV: Normal rate, regular rhythm, no murmur appreciated. Pulm: No wheezes. No tachypnea. Ext: Warm. No significant lower extremity edema. Echo: 07/2025 LVEF 63% with global longitudinal strain (-16.5% to - 18%). Grade 1 diastolic dysfunction with normal LV filling pressure. No significant valvular disease. Other: Patch monitor 14 days 08/18/2025: Predominant rhythm sinus (heart rate range 38-189). Paroxysmal atrial fibrillation with total AFib burden 4.9% and average heart rate while in AFib was 116. Single episode of symptoms not associated with clinical arrhythmia. 2.8% premature supraventricular beat burden and less than 1% PVC burden. Assessment Assessment & Plan 1. Atrial fibrillation, paroxysmal 2. Orthostatic hypotension, positional - [id number] score is 2 (hypertension and age) - Primary objective is to mitigate stroke risk through anticoagulation therapy. - Dizziness is likely attributable to orthostatic hypotension rather than atrial fibrillation. - Blood pressure readings are satisfactory. - Continue with the current regimen of Eliquis 5 mg twice daily. - Monitor for any signs of bleeding, such as blood in the urine, and discontinue the medication if significant bleeding occurs. - Salt and compression stockings for the orthostatic hypotension - Inform promptly if experiencing symptoms suggestive of atrial fibrillation, such as palpitations or lightheadedness at rest, for potential adjustment of the treatment plan. 3. Immunotherapy follow-up: - Baseline markers for troponin and BNP will be obtained today to monitor for any potential cardiaceffects from immunotherapy. - Follow-up in 3 months to reassess condition and adjust the treatment plan as necessary. Recommendations Continue eliquis, if hematuria or anemia develops, it should be held Troponin and BNP baseline today RTC 3 months for surveillance with immunotherapy/chemo Juarez Recinos MD PGY-6 Fellow, Cardiovascular Diseases [1] acetaminophen (Tylenol) 500 MG tablet alfuzosin (Uroxatral) 10 MG 24 hr tablet apixaban (Eliquis) 5 MG tablet bisoprolol (Zebeta) 5 MG tablet diphenhydrAMINE (Benadryl) 25 MG tablet famotidine (Pepcid) 20 MG tablet finasteride (Proscar) 5 MG tablet guaiFENesin (Robitussin) 100 MG/5ML solution HYDROcodone-acetaminophen ([place]) 5-325 MG tablet lidocaine (Uro-Jet) 2 % gel loperamide (Imodium A-D) 2 MG tablet melatonin tablet rosuvastatin (Crestor) 10 MG tablet sodium chloride ([place]) 0.65 % nasal spray Vancomycin HCl 50 MG/ML oral solution Cosigned by Jan Quiroz MD at 09/25/2025 12:39 PM EST Associated attestation - Jan Quiroz MD - 09/25/2025 12:39 PM EST I evaluated the patient with the resident/fellow. I discussed the case with the resident/fellow andagree with the findings and plan as documented. documented in this encounter Plan of Treatment Upcoming Encounters Date Type Department Care Team (Latest Contact Info) Description 10/26/2025 2:45 PM EST Office Visit [facility] Head[facility] Neck [facility] Respiratory [address] [facility], 2nd [place] [address] Kim Machado MD [address] [facility] [address] [place] [address] 10/27/2025 11:00 AM EST Clinical Support [facility] Urology [address], [address] [place] [address] 11/17/2025 7:50 AM EST Clinical Support [facility] Multidisciplinary Oncology Clinic [address] [place] [address] 11/17/2025 8:00 AM EST Office Visit [facility] Multidisciplinary Oncology Clinic [address] [place] [address] Aristides Reina MD [address] [place] [address] 11/17/2025 2:00 PM EST Office Visit [facility] [employer] [address] [facility], [address] [place] [address] 11/21/2025 2:00 PM EST Appointment [facility] Radiology [address], [address] [place] [address] 12/01/2025 1:30 PM EST Office Visit [facility] Urology [address], [address] [place] [address] Yanely Rock, DO [address] [place] [address] 12/14/2025 10:00 AM EST Office Visit [facility] [address] 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 09/21/2025 8:39 AM EST Troponin T, High Sensitivity, Cardiac Risk Assessment Lab Routine Atrial fibrillation, unspecified type (CMS/HCC) 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 09/21/2025 8:39 AM EST Scheduled Orders Name Type Priority Associated Diagnoses Orde r Schedule N-Terminal Probnp, Plasma Lab Routine Atrial fibrillation, unspecified type (CMS/HCC) 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 Expected: 09/21/2025 (Approximate), Expires: 03/25/2027 Troponin T, High Sensitivity, Cardiac Risk Assessment Lab Routine Atrial fibrillation, unspecified type (CMS/HCC) 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 Expected: 09/21/2025 (Approximate), Expires: 03/25/2027 Scheduled Referrals Name Type Priority Associated Diagnoses Orde r Schedule Follow Up Cardiology Outpatient Referral Routine Atrial fibrillation, unspecified type (CMS/HCC) Expected: 12/22/2025, Expires: 03/21/2027 documented as of this encounter Results * (ABNORMAL) Troponin T, High Sensitivity, Cardiac Risk Assessment (09/21/2025 9:19 AM EST) Troponin T, High Sensitivity, 0 Hour 40(H) <19 ng/L 09/21/2025 11:59 AM EST [facility] Blood Venous blood specimen / Unknown Venipuncture / Unknown 09/21/2025 9:19 AM EST 09/21/2025 9:19 AM EST us Jan Quiroz MD LAB BLOOD ORDERABLES Final Res ult Performing Organization Address [facility] Co de Phone Number HEALTHCARE LAB [address] [place] [address] * (ABNORMAL) N-Terminal Probnp (09/21/2025 9:19 AM EST) N-Terminal, PROBNP, Plasma 1,497(H) 0 - 899 pg/mL 09/21/2025 11:59 AM EST [facility]ARE [facility] Blood Venous blood specimen / Unknown Venipuncture / Unknown 09/21/2025 9:19 AM EST 09/21/2025 9:19 AM EST us Jan Quiroz MD LAB BLOOD ORDERABLES Final Res ult Performing Organization Address [facility] Phone Number [facility] [address] [place] [address] documented in this encounter Visit Diagnoses Diagnosis Atrial fibrillation, unspecified type (CMS/HCC)- Primary 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 difficile 08/14/2025 08/26/2025 Assessment Noted Time PHQ-9 Depression Total Score: 0 08/18/20 25 11:58 AM EDT A fall risk assessment has been complete d for the patient 09/21/2025 7:55 AM EST A Body Mass Index follow-up plan has been documented for the patient 09/21/2025 11:44 AM EST documented as of this encounter Care Teams Indoor Plant Technician Relationship Specialty Start Date End Date Darius Ken MD [address] [place], [place] [address] PCP - General Internal Medicine 08/23/24 Yanely Rock DO [address] [place] [address] Surgeon Urology 09/22/25 documented as of this encounter
--- OUTSIDE RECORDS SUMMARY | 2025-09-22 07:42 | XMS_ITS | Encounter Summary ---
Author Organization Healthcare Address [address] [place] [address] Care Team Providers Care Journeyman Wireman Name Role Phone Darius Ken MD Primary Care Provider [phone] Yanely Rock DO Unavailable [phone] Reason for Referral * Imaging (Routine) - Closed Specialty Diagnoses / Procedures Referred By Broderick olivares Referred To Contact Radiology Diagnoses Thyroid mass of unclear etiology Procedures US Head Neck Soft Tissue Aristides Reina MD [address] [place] [address] Phone: tel: fax: Referral ID Status Reason Start Date Expiration Date Visits Re quested Visits Authorized [id number] Closed 09/22/2025 03/24/2027 1 1 Reason for Visit * Imaging (Routine) - Closed Specialty Diagnoses / Procedures Referred By Broderick olivares Referred To Contact Radiology Diagnoses Thyroid mass of unclear etiology Procedures US Head Neck Soft Tissue Aristides Reina MD [address] [place] [address] Phone: tel: fax: Referral ID Status Reason Start Date Expiration Date Visits Re quested Visits Authorized [id number] Closed 09/22/2025 03/24/2027 1 1 Encounter Details Date Type Department Care Team (Latest Contact Info) Description 09/22/2025 7:42 AM EST - 09/22/2025 11:59 PM EST Hospital Encounter [facility] [address] [place] [address] Thyroid mass (Primary Dx); Thyroid mass of unclear etiology Discharge Disposition: Home or Self Care Social History Tobacco Use Types Packs/Day Years Used Date Smoking Tobacco: Never Passive Smoke Exposure: Never Smokeless Tobacco: Never Alcohol Use Standard Drinks/Week Comments Not Currently 1 (1 standard drink = 0.6 oz pur e alcohol) PHQ-2 Answer Date Recorded Patient Health Questionnaire-2 Score 0 09/29/2025 PHQ-9 Answer Date Recorded Patient Health Questionnaire-9 Score 0 08/18/2025 Humiliation, Afraid, Rape, and Kick questionnair e Answer Date Recorded Within the last year, have y ou been afraid of your partner or ex-partner? No 09/30/2025 Within the last year, have y ou been humiliated or emotionally abused in other ways by your partner or ex-partner? No Within the last year, have y ou been kicked, hit, slapped, or otherwise physically hurt by your partner or ex-partner? No 09/30/2025 Within the last year, have y ou been raped or forced to have any kind of sexual activity by your partner or ex-partner? No 09/30/2025 Hunger Vital Sign Answer Date Recorded Within the past 12 months, y ou worried that your food would run out before you got the money to buy more. Never true 09/30/20 25 Within the past 12 months, t he food you bought just didn't last and you didn't have money to get more. Never true 09/30/2025 PRAPARE - Transportation Answer Date Re corded In the past 12 months, has l ack of transportation kept you from medical appointments or from getting medications? No 09/11 In the past 12 months, has l ack of transportation kept you from meetings, work, or from getting things needed for daily living? No 09/30/2025 Housing Stability Vital Sign Answer Mundo e Recorded In the last 12 months, was t here a time when you were not able to pay the mortgage or rent on time? No 09/30/2025 In the past 12 months, how m any times have you moved where you were living? 1 09/30/2025 At any time in the past 12 m [facility], were you homeless or living in a fpc (including now)? No 09/30/2025 [facility] Utilities Answer Date Recorded In the past 12 months has th e [employer], gas, oil, or water company threatened to shut off services in your home? No 09/30/2025 Sex and Gender Information Value Date Recorded [...] Day, Irma documented as of this encounter Medications at Time of Discharge famotidine (Pepcid) 20 MG tablet Take 1 tablet by mouth daily. acetaminophen (Tylenol) 500 MG tablet Take 1 tablet by mouth every 6 hours as needed for pain or fever. 5 diphenhydrAMINE (Benadryl) 25 MG tablet Take 1 tablet by mouth at night as needed for itching. 5 finasteride (Proscar) 5 MG tablet Take 1 tablet by mouth daily. Do not crush, chew, or split. 30 tablet 09/13/2025 5 guaiFENesin (Robitussin) 100 MG/5ML solution Take 10 mL by mouth every 4 hours as needed for cough. 5 lidocaine (Uro-Jet) 2 % gel Insert 1 Application into the urethra as needed for mild pain. 15 mL 09/12/2025 5 loperamide (Imodium A-D) 2 MG tablet Take 1 tablet by mouth every 2 hours as needed for diarrhea. MAX 8 tablets daily 5 melatonin tablet Take 2 tablets by mouth at night as needed for sleep. 30 tablet 09/12/2025 5 pantoprazole (Protonix) 40 MG EC tablet Take 1 tablet by mouth daily. Do not crush, chew, or split. 30 tablet 08/15/2025 5 sodium chloride ([place]) 0.65 % nasal spray Administer 1 spray into each nostril as needed for congestion. 30 mL 12 09/12/2025 5 documented as of this encounter Miscellaneous Notes * Post-Procedure Note - Katie Mitchell DO - 09/22/2025 8:30 AM EST Radiology Brief Postprocedure Note Attending: DO Stephen Grade Tamper: Caroline Technologist: Daryl Harding Pre-operative Diagnosis: Left thyroid nodule Post-operative Diagnosis: Same Technical/Surgical Procedures Used: US guided FNA biopsy Specimen Obtained: Yes, FNA x 6 Complications: None Estimated Blood Loss: none Medications As of 09/22/25 1008 lidocaine (Xylocaine) 1 % injection 20 mL (mL) Total volume: 2 mL Dosing weight: 84 Date/Time Rate/Dose/Volume Action 09/22/25 0929 2 mL Given See detailed result report with images in PACS. The patient tolerated the procedure well without incident or complication and is in stable condition. * Pre-Procedure Note - Katie Mitchell DO - 09/22/2025 8:30 AM EST Radiology Preprocedure Note History Of Present Illness Justin Best is a 70 y.o. male presenting with left thyroid nodule here for FNA biopsy. History of esophageal cancer. Takes daily Eliquis, but recently stopped due to hematuria. Past Medical History He has a past medical history of Blood urine (2023), Cancer (CMS/HCC) (2024), Esophageal cancer (june 2025), Hypertension (1999), Kidney stone, Skin cancer (2004), and Stomach cancer (CMS/HCC) (june 2025). He has no past medical history of Adverse effect of anesthesia, Delayed emergence from general anesthesia, Hard to intubate, Malignant hyperthermia, PONV (postoperative nausea and vomiting), or Pseudocholinesterase deficiency. Indication for procedure: The primary encounter diagnosis was Thyroid mass. A diagnosis of Thyroid mass of unclear etiology was also pertinent to this visit. Relevant review of systems: NA Relevant Labs: Lab Results Component Value Date CREATININE 1.15 09/13/2025 EGFR 68.0 09/13/2025 INR 1.1 07/21/2025 Directed physical examination: Alert and oriented, no distress Normal breathing Moves all extremities well Recent Imaging: PET CT 07/28/25 Recent imaging study(ies) was/were reviewed. Benefits, risks and alternatives of procedure have been discussed with the patient and/or their insurance healthcare representative and informed consent was obtained. All questions answered and they agree to proceed. documented in this encounter Plan of Treatment Upcoming Encounters Date Type Department Care Team (Latest Contact Info) Description 10/26/2025 2:45 PM EST Office Visit [facility] CC Head, Neck & Respiratory [address] [place] [address] Kim Machado MD [address] [place] [address] 10/27/2025 11:00 AM EST Clinical Support [facility] [address] [place] [address] 11/17/2025 7:50 AM EST Clinical Support [facility] Multidisciplinary Oncology Clinic [address] [place] [address] 11/17/2025 8:00 AM EST Office Visit [facility] Multidisciplinary Oncology Clinic [address] [place] [address] Aristides Reina MD [address] [place] [address] 11/17/2025 2:00 PM EST Office Visit [facility] Nephrology, Bone & Mineral Metabolism [address], [address] [place] [id number] 11/21/2025 2:00 PM EST Appointment [facility] [address] [place] [address] 12/01/2025 1:30 PM EST Office Visit [facility] [address] [place] [address] Yanely Rock, DO [address] [place] [address] 12/14/2025 10:00 AM EST Office Visit [facility] [place] [facility] [address], [address] [place] [address] Juarez Recinos MD [address] [place] [address] 01/13/2026 12:00 PM EST Office Visit [facility] [address] [place] [address] Eros Mejia MD [address] [place] [address] documented as of this encounter Procedures Procedure Name Priority Date/Time Associated Diagnosis Comments US GUIDED FINE NEEDLE ASPIRATION Routine 09/22/2025 9:47 AM EST Thyroid mass of unclear etiology US HEAD NECK SOFT TISSUE Routine 09/22/2025 9:47 AM EST Thyroid mass of unclear etiology AFIRMA (SO) Routine 09/22/2025 9:30 AM EST Thyroid mass FINE NEEDLE ASPIRATION - CYTOLOGY Routine 09/22/2025 9:30 AM EST Thyroid mass documented in this encounter Results * US Head Neck Soft Tissue (09/22/2025 9:47 AM EST) Anatomical Region Laterality Modality Head, Neck Ultrasound Impressions 09/22/2025 10:17 AM EST 1. Uncomplicated ultrasound-guided FNA of TR 3 left thyroid nodule. 2. TR 3 right thyroid nodule. Recommend ultrasound follow-up in 1 year. CRITICAL RESULT: No. COMMUNICATION: Per this written report. ACR TI-RADS recommendations TR 5 (greater than or equal to 7 points) - FNA if greater than or equal to 1cm, follow-up if 0.5 -0.9 cm every year for 5 years TR 4 (4-6 points) - FNA if greater than or equal to 1.5cm, follow-up if 1 -1.4 cm in 1, 2, 3 and 5 years TR 3 (3 points) - FNA if greater than or equal to 2.5cm, follow-up if greater than or equal to 1.5 cm in 1, 2, 3 and 5 years TR 2 (1-2 points) - Not suspicious TR 1 (0 points) - Benign Ref. J Am Leti Radiol 2017;14:587-595 AVAILABLE AT: [email or web address] Drafted by Katie Mitchell DO on 09/22/2025 10:10 AM Final report signed by Katie Mitchell DO on 09/22/2025 10:17 AM Narrative 09/22/2025 10:17 AM EST CLINICAL INDICATION: Nodule within the left thyroid. Evaluate and perform FNA if required. TECHNIQUE: Ultrasound of the thyroid and neck with ultrasound guided fine needle aspiration. COMPARISON: PET/CT 07/27/2025 FINDINGS: The right thyroid lobe measures 3.9 x 1.3 x 1.4 cm. The left thyroid lobe measures 6.9 x 2.1 x 2.1 cm. The isthmus measures 0.3 cm. There are 2 nodules, further detailed below. Focal Thyroid Observations: (If present and relevant, a maximum of 2 nodules will be described below per TI-RADS recommendations). Nodule # 1, Size 4.2 cm, left lobe (image 68) COMPOSITION: solid/almost completely solid = 2 ECHOGENICITY: hyperechoic/Isoechoic = 1 SHAPE: wider than tall = 0 MARGIN: ill-defined = 0 ECHOGENIC FOCI (Choose All That Apply): none or large comet-tail artifacts = 0 Macrocalcifications = No = 0 Peripheral/rim calcifications = No = 0 Punctate echogenic foci = No = 0 ACR TI-RADS risk category: TR3 (3 points) Nodule # 2, Size 1.6 cm, right lobe (image 21) COMPOSITION: solid/almost completely solid = 2 ECHOGENICITY: hyperechoic/Isoechoic = 1 SHAPE: wider than tall = 0 MARGIN: smooth = 0 ECHOGENIC FOCI (Choose All That Apply): none or large comet-tail artifacts = 0 Macrocalcifications = No = 0 Peripheral/rim calcifications = No = 0 Punctate echogenic foci = No = 0 ACR TI-RADS risk category: TR3 (3 points) A thorough evaluation of neck lymph node levels I through was also undertaken bilaterally. This revealed no suspicious lymphadenopathy. FNA: After informed consent was obtained and time out performed, the patient's neck was cleaned and draped in the usual sterile fashion. Under direct ultrasound guidance and with 1% lidocaine for local anesthetic cover, 6 passes were made into the left thyroid nodule.The samples were handed to the pathologists who were in attendance. Adequate sampling was confirmed. Two devoted passes were sent for Afirma testing. There were no immediate post procedural complications. Procedure Note Katie Mitchell, DO - 09/22/2025 CLINICAL INDICATION: Nodule within the left thyroid. Evaluate and perform FNA if required. TECHNIQUE: Ultrasound of the thyroid and neck with ultrasound guided fine needleaspiration. COMPARISON: PET/CT 07/27/2025 FINDINGS: The right thyroid lobe measures 3.9 x 1.3 x 1.4 cm. The left thyroid lobemeasures 6.9 x 2.1 x 2.1 cm. The isthmus measures 0.3 cm. There are 2nodules, further detailed below. Focal Thyroid Observations: (If present and relevant, a maximum of 2nodules will be described below per TI-RADS recommendations). Nodule # 1, Size 4.2 cm, left lobe (image 68) COMPOSITION: solid/almost completely solid = 2 ECHOGENICITY: hyperechoic/Isoechoic = 1 SHAPE: wider than tall = 0 MARGIN: ill-defined = 0 ECHOGENIC FOCI (Choose All That Apply): none or large comet-tail artifacts = 0 Macrocalcifications = No = 0 Peripheral/rim calcifications = No = 0 Punctate echogenic foci = No = 0 ACR TI-RADS risk category: TR3 (3 points) Nodule # 2, Size 1.6 cm, right lobe (image 21) COMPOSITION: solid/almost completely solid = 2 ECHOGENICITY: hyperechoic/Isoechoic = 1 SHAPE: wider than tall = 0 MARGIN: smooth = 0 ECHOGENIC FOCI (Choose All That Apply): none or large comet-tail artifacts = 0 Macrocalcifications = No = 0 Peripheral/rim calcifications = No = 0 Punctate echogenic foci = No = 0 ACR TI-RADS risk category: TR3 (3 points) A thorough evaluation of neck lymph node levels I through was alsoundertaken bilaterally. This revealed no suspicious lymphadenopathy. FNA: After informed consent was obtained and time out performed, thepatient's neck was cleaned and draped in the usual sterile fashion. Underdirect ultrasound guidance and with 1% lidocaine for local anestheticcover, 6 passes were made into the left thyroid nodule.The samples werehanded to the pathologists who were in attendance. Adequate sampling wasconfirmed. Two devoted passes were sent for Afirma testing. There were no immediate post procedural complications. IMPRESSION: 1. Uncomplicated ultrasound-guided FNA of TR 3 left thyroid nodule. 2. TR 3 right thyroid nodule. Recommend ultrasound follow-up in 1 year. CRITICAL RESULT: No. COMMUNICATION: Per this written report. ACR TI-RADS recommendations TR 5 (greater than or equal to 7 points) - FNA if greater than or equal to1cm, follow-up if 0.5 -0.9 cm every year for 5 years TR 4 (4-6 points) - FNA if greater than or equal to 1.5cm, follow-up if 1-1.4 cm in 1, 2, 3 and 5 years TR 3 (3 points) - FNA if greater than or equal to 2.5cm, follow-up ifgreater than or equal to 1.5 cm in 1, 2, 3 and 5 years TR 2 (1-2 points) - Not suspicious TR 1 (0 points) - Benign Ref. J Am Leti Radiol 2017;14:587-595 AVAILABLE AT:[email or web address] Drafted by Katie Mitchell DO on 09/22/2025 10:10 AM Final report signed by Katie Mitchell DO on 09/22/2025 10:17 AM us Salome Arrieta MD IMG US PROCEDURES Final Result * US Guided Fine Needle Aspiration (09/22/2025 9:47 AM EST) Anatomical Region Laterality Modality Ultrasound Impressions 09/22/2025 10:17 AM EST 1. Uncomplicated ultrasound-guided FNA of TR 3 left thyroid nodule. 2. TR 3 right thyroid nodule. Recommend ultrasound follow-up in 1 year. CRITICAL RESULT: No. COMMUNICATION: Per this written report. ACR TI-RADS recommendations TR 5 (greater than or equal to 7 points) - FNA if greater than or equal to 1cm, follow-up if 0.5 -0.9 cm every year for 5 years TR 4 (4-6 points) - FNA if greater than or equal to 1.5cm, follow-up if 1 -1.4 cm in 1, 2, 3 and 5 years TR 3 (3 points) - FNA if greater than or equal to 2.5cm, follow-up if greater than or equal to 1.5 cm in 1, 2, 3 and 5 years TR 2 (1-2 points) - Not suspicious TR 1 (0 points) - Benign Ref. J Am Leti Radiol 2017;14:587-595 AVAILABLE AT: [email or web address] Drafted by Katie Mitchell DO on 09/22/2025 10:10 AM Final report signed by Katie Mitchell DO on 09/22/2025 10:17 AM Narrative 09/22/2025 10:17 AM EST CLINICAL INDICATION: Nodule within the left thyroid. Evaluate and perform FNA if required. TECHNIQUE: Ultrasound of the thyroid and neck with ultrasound guided fine needle aspiration. COMPARISON: PET/CT 07/27/2025 FINDINGS: The right thyroid lobe measures 3.9 x 1.3 x 1.4 cm. The left thyroid lobe measures 6.9 x 2.1 x 2.1 cm. The isthmus measures 0.3 cm. There are 2 nodules, further detailed below. Focal Thyroid Observations: (If present and relevant, a maximum of 2 nodules will be described below per TI-RADS recommendations). Nodule # 1, Size 4.2 cm, left lobe (image 68) COMPOSITION: solid/almost completely solid = 2 ECHOGENICITY: hyperechoic/Isoechoic = 1 SHAPE: wider than tall = 0 MARGIN: ill-defined = 0 ECHOGENIC FOCI (Choose All That Apply): none or large comet-tail artifacts = 0 Macrocalcifications = No = 0 Peripheral/rim calcifications = No = 0 Punctate echogenic foci = No = 0 ACR TI-RADS risk category: TR3 (3 points) Nodule # 2, Size 1.6 cm, right lobe (image 21) COMPOSITION: solid/almost completely solid = 2 ECHOGENICITY: hyperechoic/Isoechoic = 1 SHAPE: wider than tall = 0 MARGIN: smooth = 0 ECHOGENIC FOCI (Choose All That Apply): none or large comet-tail artifacts = 0 Macrocalcifications = No = 0 Peripheral/rim calcifications = No = 0 Punctate echogenic foci = No = 0 ACR TI-RADS risk category: TR3 (3 points) A thorough evaluation of neck lymph node levels I through was also undertaken bilaterally. This revealed no suspicious lymphadenopathy. FNA: After informed consent was obtained and time out performed, the patient's neck was cleaned and draped in the usual sterile fashion. Under direct ultrasound guidance and with 1% lidocaine for local anesthetic cover, 6 passes were made into the left thyroid nodule.The samples were handed to the pathologists who were in attendance. Adequate sampling was confirmed. Two devoted passes were sent for Afirma testing. There were no immediate post procedural complications. Procedure Note Katie Mitchell, DO - 09/22/2025 CLINICAL INDICATION: Nodule within the left thyroid. Evaluate and perform FNA if required. TECHNIQUE: Ultrasound of the thyroid and neck with ultrasound guided fine needleaspiration. COMPARISON: PET/CT 07/27/2025 FINDINGS: The right thyroid lobe measures 3.9 x 1.3 x 1.4 cm. The left thyroid lobemeasures 6.9 x 2.1 x 2.1 cm. The isthmus measures 0.3 cm. There are 2nodules, further detailed below. Focal Thyroid Observations: (If present and relevant, a maximum of 2nodules will be described below per TI-RADS recommendations). Nodule # 1, Size 4.2 cm, left lobe (image 68) COMPOSITION: solid/almost completely solid = 2 ECHOGENICITY: hyperechoic/Isoechoic = 1 SHAPE: wider than tall = 0 MARGIN: ill-defined = 0 ECHOGENIC FOCI (Choose All That Apply): none or large comet-tail artifacts = 0 Macrocalcifications = No = 0 Peripheral/rim calcifications = No = 0 Punctate echogenic foci = No = 0 ACR TI-RADS risk category: TR3 (3 points) Nodule # 2, Size 1.6 cm, right lobe (image 21) COMPOSITION: solid/almost completely solid = 2 ECHOGENICITY: hyperechoic/Isoechoic = 1 SHAPE: wider than tall = 0 MARGIN: smooth = 0 ECHOGENIC FOCI (Choose All That Apply): none or large comet-tail artifacts = 0 Macrocalcifications = No = 0 Peripheral/rim calcifications = No = 0 Punctate echogenic foci = No = 0 ACR TI-RADS risk category: TR3 (3 points) A thorough evaluation of neck lymph node levels I through was alsoundertaken bilaterally. This revealed no suspicious lymphadenopathy. FNA: After informed consent was obtained and time out performed, thepatient's neck was cleaned and draped in the usual sterile fashion. Underdirect ultrasound guidance and with 1% lidocaine for local anestheticcover, 6 passes were made into the left thyroid nodule.The samples werehanded to the pathologists who were in attendance. Adequate sampling wasconfirmed. Two devoted passes were sent for Afirma testing. There were no immediate post procedural complications. IMPRESSION: 1. Uncomplicated ultrasound-guided FNA of TR 3 left thyroid nodule. 2. TR 3 right thyroid nodule. Recommend ultrasound follow-up in 1 year. CRITICAL RESULT: No. COMMUNICATION: Per this written report. ACR TI-RADS recommendations TR 5 (greater than or equal to 7 points) - FNA if greater than or equal to1cm, follow-up if 0.5 -0.9 cm every year for 5 years TR 4 (4-6 points) - FNA if greater than or equal to 1.5cm, follow-up if 1-1.4 cm in 1, 2, 3 and 5 years TR 3 (3 points) - FNA if greater than or equal to 2.5cm, follow-up ifgreater than or equal to 1.5 cm in 1, 2, 3 and 5 years TR 2 (1-2 points) - Not suspicious TR 1 (0 points) - Benign Ref. J Am Leti Radiol 2017;14:587-595 AVAILABLE AT:[email or web address] Drafted by Katie Mitchell DO on 09/22/2025 10:10 AM Final report signed by Katie Mitchell DO on 09/22/2025 10:17 AM us Salome Arrieta MD IMG US PROCEDURES Final Result * Afirma (09/22/2025 9:30 AM EST) See Scanned Result SEE SCANNED REPORT 10/10/2025 10:59 AM EST [facility] Fine Needle Aspirate Thyroid structure / Unknown 09/22/2025 9:30 AM EST 09/29/2025 12:24 PM EST us Katie Mitchell DO LAB REF LAB BLOOD AND FLUID O RD Final Result [facility] ([facility]) [address] [place] [address], [place] * Fine needle aspiration (09/22/2025 9:30 AM EST) Case Report Cytology Case: [id number] Authorizing Provider: Katie Mitchell DO Collected: 09/22/2025 0930 Ordering Location: [facility] Received: 09/22/2025 1015 Pathologist: Silvia Daniels MD Specimen: Thyroid, Left, Fine Needle Aspiration, LEFT THYROID ULTRASOUND GUIDED FINE NEEDLE ASPIRATION 09/23/2025 2:35 PM EST [facility] Final Diagnosis A. LEFT THYROID, ULTRASOUND GUIDED FINE NEEDLE ASPIRATION: - ATYPIA OF UNDETERMINED SIGNIFICANCE - NUCLEAR (BETHESDA CATEGORY III) 09/23/2025 2:35 PM EST [facility] at 1435 EST Comment The aspirate demonstrates predominantly blood and macrophages, but rare follicular groups are present with nuclear enlargement. Afirma molecular testing is pending, and correlation with the results is suggested. 09/23/2025 2:35 PM EST [facility] Immediate Evaluation FNA performed by: Dr. Mitchell Number of sticks: 6 Immediate evaluation performed by: Dr. Daniels / [facility] Evaluation episode # 1-4: Scant follicular cells, adequate. Two passes for Afirma The immediate evaluation in this case was performed via telecytology by the attending physician listed above. 09/23/2025 2:35 PM EST [facility] Clinical History Left thyroid nodule with FDG uptake 09/23/2025 2:35 PM EST [facility] Procedure Type US 09/23/2025 2:35 PM EST [facility] Size/Descripti on of Lesion 4cm Left Thyroid 09/23/2025 2:35 PM EST [facility] Cancer History Yes 09/23/2025 2:35 PM EST [facility] Comment:Esophageal cancer Gross Description A. LEFT THYROID ULTRASOUND GUIDED FINE NEEDLE ASPIRATION 3 ml's bloody Needle rinse fluid processed as ThinPrep for complete evaluation of sample. Received 4 diff quick slides and 4 pap slides. Afirma collected. 09/23/2025 2:35 PM EST [facility] Note: A resident was involved in the service. I attest I examined the relevant preparations for the specimens and confirmed the diagnosis or interpretation. 09/23/2025 2:35 PM EST [facility] Clinical Information E07.9 - Thyroid mass [ICD-10-CM] 09/23/2025 2:35 PM EST [facility] Fine Needle Aspirate Thyroid structure / Unknown 09/22/2025 9:30 AM EST 09/22/2025 10:15 AM EST us Katie Mitchell DO LAB CYTOLOGY ORDERABLES Final Result [facility] [address] [place] [address] documented in this encounter Visit Diagnoses Diagnosis Thyroid mass- Primary Unspecified disorder of thyroid Thyroid mass of unclear etiology documented in this encounter Administered Medications Inactive Administered Medications - up to 3 most recent administrations Medication Order MAR Action Action Date Dose Rate Site lidocaine (Xylocaine) 1 % injection 20 mL 20 mL, Injection, Once, 1 dose, On Marcela 09/22/25 at 0845, Routine, Imaging Protocol OrdersIndications:Thyroid mass Given 09/22/2025 9:29 AM EST 2 mL Other documented in this encounter Additional Health Concerns Infection Onset Date Last Indicated Resolved Time C. difficile 08/14/2025 08/26/2025 Assessment Noted Time PHQ-9 Depression Total Score: 0 08/18/20 25 11:58 AM EDT A fall risk assessment has been complete d for the patient 09/22/2025 2:32 PM EST A Body Mass Index follow-up plan has been documented for the patient 09/22/2025 4:42 PM EST documented as of this encounter Care Teams Journeyman Wireman Relationship Specialty Start Date End Date Darius Ken MD [address] [place] [id number] PCP - General Internal Medicine 08/23/24 Yanely Rock DO [address] [place] [address] Surgeon Urology 09/22/25 documented as of this encounter
--- OUTSIDE RECORDS SUMMARY | 2025-09-22 11:00 | XMS_ITS | Encounter Summary ---
Author Organization Healthcare Address [address] [place] [address] Care Team Providers Care Auto Bumper Mechanic Name Role Phone Darius Ken MD Primary Care Provider [phone] Yanely Rock DO Unavailable [phone] Encounter Details Date Type Department Care Team (Latest Contact Info) Description 09/22/2025 11:00 AM EST Office Visit [address] [address] Janes Post MD [address] [place] [address] [address] [place] [address] C. difficile colitis (Primary Dx); Neutropenic fever (CMS/HCC); Adenocarcinoma of gastroesophageal junction Social History Tobacco [...] any time in the past 12 m [facility], were you homeless or living in a [facility] (including now)? No 08/29/2025 [facility] Utilities Answer Date Recorded In the [...] Sign Reading Time Taken Comments Blood Pressure 96/68 09/22/2025 10:32 AM EST Pulse 84 09/22/2025 10:32 AM EST Temperature 36.7 C (98.1 F) 09/22/2025 10:32 AM EST Respiratory Rate 16 09/22/2025 10:32 AM EST Oxygen Saturation 97% 09/22/2025 10:32 AM EST RA Inhaled Oxygen Concentration - - Weight 83.9 kg (185 lb) 09/22/2025 10:32 AM EST lbs Height - - Body Mass Index 25.09 09/21/2025 7:49 AM EST documented in this [...] encounter Miscellaneous Notes * Progress Notes - Steve Estevez PA - 09/22/2025 11:00 AM EST INFECTIOUS DISEASE HOSPITAL FOLLOW UP NOTE Patient Name: Justin Best [id number] male 70 y.o. Admission Dates: 08/26 - 09/12/2025 ANTIMICROBIAL REVIEW: Current: PO Vancomycin Prior: PO Fidaxomicin HOSPITAL HPI: Justin Best is a 70 y.o. [...] non fulminant c diff.Since that time, he continued to have watery diarrhea every hour with no improvement. ID consulted,recommended switch to PO vancomycin. Noted low concern for fulminant c diff at that time as abdominal exam was benign and WBC/fevers have improved. After switch to PO vancomycin, he had significant improvement in the frequency of bowel movements. HPI: Patient presents to clinic accompanied by and sister. He reports to be doing well. He endorsescomplete resolution of diarrheal symptoms. He and family note some concerns for new weakness, ongoing hematuria, lightheadedness since hospitalization. He is now using a wheelchair, new for patient, with noted difficulty getting up to walk to the bathroom without feeling lightheaded and weak. Bloodpressures at home have been noted to be low, with occasional systolic in mid 80's, generally worse in the morning. Family also notes concerns that patient does not drink sufficient fluids. There is evident hematuria in urinary collection container in office today, approximately 200 ml's of pink colored urine. During recent admission, he experienced gross hematuria, which was attributed to trauma from Bernstein catheter insertion, and he continued anticoagulation therapy upon discharge. Hematuria has continued now for over 2 weeks. He is seeing urology today. He denies flank pain, fevers, chills, nausea, vomiting, diarrhea. Vital signs stable during office visit today, albeit somewhat hypotensive at 96/68. REVIEW OF SYSTEMS: 14-point ROS negative except as stated above. ALLERGIES: Allergies[1] VITAL SIGNS: Visit Vitals BP 96/68 (BP Location: Left arm, Patient Position: Sitting, BP Cuff Size: Adult) Pulse 84 Temp 36.7 ??C (98.1 ??F) (Oral) Wt 83.9 kg (185 lb) Comment: lbs SpO2 97% Comment: RA BMI 25.09 kg/m?? PHYSICAL EXAM: Physical Exam Vitals and nursing note reviewed. Constitutional: Appearance: Normal appearance. HENT: Head: Normocephalic and atraumatic. Eyes: Extraocular Movements: Extraocular movements intact. Conjunctiva/sclera: Conjunctivae normal. Pulmonary: Effort: Pulmonary effort is normal. Musculoskeletal: Right lower leg: No edema. Left lower leg: No edema. Comments: Patient seated in wheelchair, new since last hospitalization Skin: General: Skin is warm and dry. Neurological: Mental Status: He is alert and oriented to person, place, and time. Psychiatric: Mood and Affect: Mood normal. Thought Content: Thought content normal. No images are attached to the encounter. LABS:. Hospital Outpatient Visit on 09/22/2025 Component Date Value Ref Range Status Case Report 09/22/2025 Final Value:Cytology Case: [id number] Authorizing Provider: Katie Mitchell DO Collected: 09/22/2025 0930 Ordering Location: [facility] Radiology Received: 09/22/2025 1015 Pathologist: Silvia Daniels MD Specimen: Thyroid, Left, Fine Needle Aspiration, LEFT THYROID ULTRASOUND GUIDED FINE NEEDLE ASPIRATION Final Diagnosis 09/22/2025 Final Value:A. LEFT THYROID, ULTRASOUND GUIDED FINE NEEDLE ASPIRATION: - ATYPIA OF UNDETERMINED SIGNIFICANCE - NUCLEAR (BETHESDA CATEGORY III) Comment 09/22/2025 Final Value:The aspirate demonstrates predominantly blood and macrophages, but rare follicular groups arepresent with nuclear enlargement. Afirma molecular testing is pending, and correlation with the results is suggested. Immediate Evaluation 09/22/2025 Final Value:FNA performed by: Dr. Mitchell Number of sticks: 6 Immediate evaluation performed by: Dr. Daniels / LEODAN Evaluation episode # 1-4: Scant follicular cells, adequate. Two passes for Afirma The immediate evaluation in this case was performed via telecytology by the attending physician listed above. Clinical History 09/22/2025 Left thyroid nodule with FDG uptake Final Procedure Type 09/22/2025 US Final Size/Description of Lesion 09/22/2025 4cm Left Thyroid Final Cancer History 09/22/2025 Yes Final Esophageal cancer Gross Description 09/22/2025 Final Value:A. LEFT THYROID ULTRASOUND GUIDED FINE NEEDLE ASPIRATION 3 ml's bloody Needle rinse fluid processed as ThinPrep for complete evaluation of sample. Received 4 diff quick slides and 4 pap slides. Afirma collected. Note: 09/22/2025 Final Value:A resident was involved in the service. I attest I examined the relevant preparations for thespecimens and confirmed the diagnosis or interpretation. Clinical Information 09/22/2025 Final Value:E07.9 - Thyroid mass [ICD-10-CM] ASSESSMENT/PLAN: Justin Best is a 70 y.o. male [...] non fulminant c diff.Since that time, he continued to have watery diarrhea every hour with no improvement. ID consulted,recommended switch to PO vancomycin. Noted low concern for fulminant c diff at that time as abdominal exam was benign and WBC/fevers have improved. After switch to PO vancomycin, he had significant improvement in the frequency of bowel movements. 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 Diff, discontinue PO vancomycin - Precautions given regarding avoidance of C. Diff transmission; frequent handwashing for all household members, avoidance of unnecessary antibiotic courses (inform providers of history of C. Diff), sanitization of surfaces, towels, bedding, clothing, etc that may come in contact with stool that may contain C. Diff spores - No additional ID follow up indicated at this time - Regarding concern for low energy and lightheadedness with ambulating short distances, recommend PCP follow up as well as increasing current fluid intake - Regarding ongoing hematuria, defer to urology with whom patient has close follow up USHA Howard [address] [address] [1] Allergies Allergen Reactions Oxycodone Hallucinations Penicillins Unknown - Patient states they do not know rxn details Childhood allergy, thinks it was maybe a rash, but isn't sure Cosigned by Faizan Post MD at 09/26/2025 3:57 PM EST Associated attestation - Faizan Post MD - 09/26/2025 3:57 PM EST I attest to being involved in more than half the total time in patient care. Symptoms for CDI now resolved with completion of an extended duration (14d) of PO Vancomycin. Discussed hand hygiene measures, bleach protocol (pt completed this) and factors that would modify futurerisk of CDI documented in this encounter Plan of Treatment Upcoming Encounters Date Type Department Care Team (Latest Contact Info) Description 10/26/2025 2:45 PM EST Office Visit [facility] Neck & Respiratory [address] [facility] [place] [phone] Kim Machado MD [address] [facility] [address] [place] [address] 10/27/2025 11:00 AM EST Clinical Support [facility] Urology [address] [phone] 11/17/2025 7:50 AM EST Clinical Support [facility] Multidisciplinary Oncology Clinic [address] [place] [phone] 11/17/2025 8:00 AM EST Office Visit [facility] Multidisciplinary Oncology Clinic [address] [place] [phone] Aristides Reina MD [address] [place], [place] [id number] 11/17/2025 2:00 PM EST Office Visit [facility] Nephrology, Bone & Mineral Metabolism [address] [facility], [address] [place] [address] 11/21/2025 2:00 PM EST Appointment [facility] Radiology [address] [place] [address] 12/01/2025 1:30 PM EST Office Visit [facility] Urology [address] [place] [address] Yanely Rock DO [address] [place] [address] 12/14/2025 10:00 AM EST Office Visit [facility] [place] [address] [facility], [address] [place] [address] Juarez Recinos MD [address] [place] [address] 01/13/2026 12:00 PM EST Office Visit [facility] [address] [place] [address] Eros Mejia MD [address] [place] [address] documented as of this encounter Visit Diagnoses Diagnosis C. difficile colitis- Primary Neutropenic fever (CMS/HCC) Adenocarcinoma of gastroesophageal junction documented in this [...] documented as of this encounter Care Teams Auto Bumper Mechanic Relationship Specialty Start Date End Date Darius Ken MD [address] [place] [address] PCP - General Internal Medicine 08/23/24 Yanely Rock DO [address] [place] [address] Surgeon Urology 09/22/25 documented as of this encounter
--- OUTSIDE RECORDS SUMMARY | 2025-09-22 15:00 | XMS_ITS | Encounter Summary ---
Author Organization Healthcare Address [address] [place] [address] Care Team Providers Care Product Safety Engineer Name Role Phone Darius Ken MD Primary Care Provider [phone] Yanely Rock DO Unavailable [phone] Reason for Visit * Reason Comments Urinary Retention * Consultation (Routine) - Closed Specialty Diagnoses / Procedures Referred By Broderick olivares Referred To Contact Urology Diagnoses Urinary retention Joyce Gunderson MD [address] [place] [address] Phone: tel: fax: [facility] Urology [address] [place] [address] Phone: tel: fax: Referral ID Status Reason Start Date Expiration Date V isits Requested Visits Authorized [id number] Closed Specialty Services Required 09/10/2025 03/12/2027 1 1 Encounter Details Date Type Department Care Team (Late st Contact Info) Description 09/22/2025 3:00 PM EST Office Visit [facility] Urology [address] [place] [address] Yanely Rock, [address] [place] [address] Gross hematuria (Primary Dx); BPH with elevated PSA and lower urinary tract symptoms Social History Tobacco Use Types Packs/Day Years Used Date Smoking Tobacco: Never Passive Smoke Exposure: Never Smokeless Tobacco: Never Tobacco Cessation:Counseling Given: [...] any time in the past 12 m [facility], were you homeless or living in a [facility] (including now)? No 08/29/2025 [facility] Utilities Answer Date Recorded In the past 12 months has th e electric, gas, oil, or water [employer] threatened to shut off services in your home? No 08/29/2025 Sex and Gender Information Value Date Recorded Sex Assigned at Male 07/23/2024 9:40 AM EDT Legal Sex Male 8:50 PM EDT Gender Identity Male 07/23/2024 9:40 AM EDT Sexual Orientation Not on file documented as of this encounter Last Filed Vital Signs Vital Sign Reading Time Taken Comments Blood Pressure 98/57 09/22/2025 2:30 PM EST Pulse 95 09/22/2025 2:30 PM EST Temperature 36.9 C (98.4 F) 09/22/2025 2:30 PM EST Respiratory Rate 18 09/22/2025 2:30 PM EST Oxygen Saturation 96% 09/22/2025 2:30 PM EST Inhaled Oxygen Concentration - - Weight 83.9 kg (185 lb) 09/22/2025 2:30 PM EST Height 182.9 cm (6') 09/22/2025 2:30 PM EST Body Mass Index 25.09 09/22/2025 2:30 PM EST documented in this encounter Functional Status [...] encounter Miscellaneous Notes * Progress Notes - Yanely Rock DO - 09/22/2025 3:00 PM EST [facility] Urology Clinic Note 09/22/25 Referring Provider: Joyce Gunderson MD CC: Hematuria, BPH, Elevated PSA HPI: Justin Best is a 70 y.o. male who was referred here by Joyce Gunderson MD for evaluationof gross hematuria, elevated PSA and BPH with lower urinary tract symptoms. Patient was recently seen during hospitalization for C diff colitis after developing gross hematuria after Bernstein catheter placement. It was determined at that time that catheter was not in appropriate position and this was exchanged with resolution of gross hematuria. Patient was started on Proscar during recent admissionwhich he is still taking. Patient did have a CT scan during recent admission that revealed 115 g prostate. He was ultimately discharged home with Bernstein catheter in place and follows up today for reass essment. Patient reports beginning yesterday he developed recurrence of his gross hematuria. He was seeing his it architecture consultant around that time and was told to stop his Eliquis due to the blood and continue withfollow up today. Patient states catheter has been draining relatively well despite this however they emptied the bag at 6:30 a.m. this morning and they not had any drainage since that time. Urine present within catheter drainage bag is tea-colored in appearance/priscila. Patient's does periodically flushed the catheter at home if needed but has not had to do this in quite some time. They do report intermittent sediment present within the catheter. Patient currently has with recent diagnosis of gastroesophageal junction adenocarcinoma locally invasive and is currently pending evaluation withsurgical oncology as he has been deemed to be a surgical candidate and is tentatively scheduled to begin immunotherapy. Patient is currently taking the finasteride and previously was on alfuzosin butis no longer taking this due to orthostatic hypotension. Prior to his development of retention and needing Bernstein catheter he did report some degree of lower urinary tract symptoms but these had improved significantly with the alfuzosin. Of note he did recently get a PSA by his oncologist that was elevated at 8.[address] imaging did reveal 115 g prostate. He did have a recent PET scan for workup of his GE junction cancer which did show no obvious PET avid disease however this was not a specific PSMA PET scan. Patient denies any family history of prostate cancer. ROS: 14 pt ROS reviewed and negative except as noted per HPI Past Medical History: Past Medical History[1] Past Surgical History: Surgical History[2] Family History: Family History[3] Social History: Social History[4] Outpatient Medications: Current Outpatient Medications Medication Instructions acetaminophen (TYLENOL) 500 mg, Every 6 hours PRN apixaban (ELIQUIS) 5 mg, Oral, 2 times daily diphenhydrAMINE (BENADRYL) 25 mg, Nightly PRN famotidine (PEPCID) 20 mg, Daily finasteride (PROSCAR) 5 mg, Oral, Daily, Do not crush, chew, or split. guaiFENesin (ROBITUSSIN) 200 mg, Every 4 hours PRN HYDROcodone-acetaminophen ([place]) 5-325 MG tablet 5 mg of hydrocodone, Oral, Every 6 hours PRN lidocaine (Uro-Jet) 2 % gel 1 Application, Urethral, As needed loperamide (IMODIUM A-D) 2 mg, Every 2 hour PRN melatonin 6 mg, Oral, Nightly PRN pantoprazole (PROTONIX) 40 mg, Oral, Daily, Do not crush, chew, or split. rosuvastatin (CRESTOR) 10 mg, Daily sodium chloride ([place]) 0.65 % nasal spray 1 spray, Each Nostril, As needed Physical Exam: Vitals: 09/22/25 1430 BP: 98/57 Pulse: 95 Resp: 18 Temp: 36.9 ??C (98.4 ??F) SpO2: 96% GEN: no acute distress HEENT: normocephalic, atraumatic, moist oral mucosa RESP: non labored, no conversational dyspnea CV: regular rate ABD: non-distended : [address] catheter [address] draining clear priscila urine, attempts were made at flushing and aspirating catheter but were unsuccessful and catheter was ultimately exchanged EXT: No gross deformities Skin: warm and dry NEURO: No focal deficits PSYCH: cooperative, normal mood and affect Labs: Lab Results Component Value Date BILIRUBINUR Negative 09/07/2025 KETONESU 15 (A) 09/07/2025 Imaging: I have personally reviewed the imaging below: Prior CT abdominal imaging personally reviewed: 115 g prostate Assessment: Justin Best is a 70 y.o. M with elevated PSA, BPH, gross hematuria and lower urinary tract symptoms. Patient was recently seen during hospitalization for gross hematuria after traumatic Bernstein. It was determined that catheter was not in correct position and was repositioned was some degree of improvement. Patient was ultimately discharged home with Bernstein catheter in place and started on Proscar and initially presented today for trial of void. Patient does have a history of BPH with lower urinary tract symptoms previously managed with alfuzosin but is no longer taking this due to orthostatic hypotension that he developed. Patient follows up today stating that he did have recurrence of gross hematuria last evening with minimal output from his catheter. Urine appearance today at evaluation was consistent with old blood with no active bright red blood however catheter was unable to be flushed or aspirated. This was essentially exchanged with a new 20 Serbian coude Bernstein catheter and catheter flushed and aspirated appropriately with clear appearing drainage. Long discussion with the patient today regarding his elevated PSA at 8.4, we did discuss obtaining a prostate MRI but PSA could also be due to the overall size of his prostate. Patient also with newly diagnosed GE junction adenocarcinoma currently pending initiation of immunotherapy and surgical Oncology evaluation and would like to defer the MRI at this time and does understand the risks of potentially undiagnosed prostate cancer which could be worked up at later date. Patient has no family history of prostate cancer and no prior PSAs available for review. Long discussion also with the patient today regarding management of his outlet obstruction versus fill and pull and risks and benefits associated with each. In regards to his enlarged prostate we did discuss consideration of holmium laser enucleation of the prostate which he would be interested in however ultimately do we planned to arrange fill and pull 1st to see if patient can ultimately be successful without the catheter given his control of symptoms on medications previously. We will plan for follow up in 1 week for fill andpull but if patient continues to have ongoing issues with retention may ultimately require chronic catheter versus outlet procedure at later date. All questions and concerns were addressed with patient and family today. Plan: - Follow up in 1 week for nurse visit fill and pull voiding trial - Continue Proscar - We will defer a prostate MRI at this time for evaluation of his elevated PSA but can consider in the future once final oncologic plan is made regarding his GE junction adenocarcinoma Yanely Rock DO Endourology Fellow [1] Past Medical History: Diagnosis Date Blood urine 2023 Cancer (CMS/HCC) 2024 current diagnosis Esophageal cancer june 2025 Hypertension 1999 Kidney stone Skin cancer 2004 Stomach cancer (CMS/HCC) june 2025 Urinary retention [2] Past Surgical History: Procedure Laterality Date APPENDECTOMY 2020 BACK SURGERY 2001 CHOLECYSTECTOMY 1984 COLONOSCOPY 2023 GALLBLADDER SURGERY 1998 ORTHOPEDIC SURGERY 2000 back surgery [3] Family History Problem Relation Name Age of Onset Cancer Father Heart failure Mother 80 - 99 [4] Social History Tobacco Use Smoking status: Never Passive exposure: Never Smokeless tobacco: Never Substance Use Topics Alcohol use: Not Currently Alcohol/week: 1.0 standard drink of alcohol Types: 1 Cans of beer per week Drug use: Never documented in this encounter Plan of Treatment Upcoming Encounters Date Type Department Care Team (Latest Contact Info) Description 10/26/2025 2:45 PM EST Office Visit [facility] Head, Neck & Respiratory [address] [facility]nd [place] [address] Kim Machado MD [address] [place] [address] 10/27/2025 11:00 AM EST Clinical Support [facility] Urology [address] [place] [address] 11/17/2025 7:50 AM EST Clinical Support [facility] Multidisciplinary Oncology Clinic [address] [place] [address] 11/17/2025 8:00 AM EST Office Visit [facility] Multidisciplinary Oncology Clinic [address] [place] [address] Aristides Reina MD [address] [place], [place] [id number] 11/17/2025 2:00 PM EST Office Visit [facility] Nephrology, Bone & Mineral Metabolism [address] [facility], [address] [place] [address] 11/21/2025 2:00 PM EST Appointment [facility] [address] [place] [address] 12/01/2025 1:30 PM EST Office Visit [facility] Urology [address] [place] [address] Yanely Rock DO [address] [place] [address] 12/14/2025 10:00 AM EST Office Visit [facility] [place] [address] [facility], [address] [place] [address] Juarez Recinos MD [address] [place] [address] 01/13/2026 12:00 PM EST Office Visit [facility] [address] [place] [address] Eros Mejia MD [address] [place] [address] documented as of this encounter Visit Diagnoses Diagnosis Gross hematuria- Primary BPH with elevated PSA and lower urinary tract symptoms documented in this encounter Additional Health Concerns [...] documented as of this encounter Care Teams Product Safety Engineer Relationship Specialty Start Date End Date Darius Ken MD [address] [place] [address] PCP - General Internal Medicine 08/23/24 Yanely Rock DO [address] [place] [address] Surgeon Urology 09/22/25 documented as of this encounter
--- OUTSIDE RECORDS SUMMARY | 2025-09-28 07:20 | XMS_ITS | Encounter Summary ---
Author Organization Healthcare Address [address] 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 Procedures PET/CT FDG Skull Base To Mid Thigh Kim Machado MD [address] [facility] [address] [place] [address] Phone: tel: fax: Referral ID Status Reason Start Date Expiration Date Visits Re quested Visits Authorized [id number] Closed 08/11/2025 02/10/2027 2 2 Reason for Visit * Auth/Cert (Routine) Specialty Diagnoses / Procedures Referred By Broderick olivares Referred To Contact Diagnoses Obstructive nephropathy Margarito Henry MD [address] [place] [address] Phone: tel: fax: [facility] [address] [place] [address] Phone: tel: Referral ID Status Reason Start Date Expiration Date Visits Re quested Visits Authorized [id number] 1 1 Encounter Details Date Type Department Care Team (Latest Contact Info) Description 09/28/2025 7:20 AM EST Hospital Encounter [facility] PET Scan [address] [place] [address] 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 No 09/30/2025 [facility] Utilities Answer Date Recorded In [...] Answer Date of Assessment Author Precautions Fall risk 10/04/2025 8:00 PM Odilia Garcia RN * Over the past 2 weeks, [...] Date of Assessment Author No Risk Indicated 10/04/2025 4:00 PM Loni Sanchez RN * Question Answer Date of Assessment Author 1. Wish to be (Past 1 Month) No 025 4:00 PM Loni Sanchez RN 2. Non-Specific Active Suici pearl Thoughts (Past 1 Month) No 10/04/2025 4:00 PM Loni Sanchez RN 6. Suicidal Behavior (Lifetime) No 4:00 PM Loni Sanchez RN documented as of this encounter Mental Status * Question Answer Entry Date Author Precautions Fall risk 10/04/2025 8:00 PM Odilia Garcia RN documented in this encounter Medications at [...] for mild pain. 15 mL 09/12/2025 5 melatonin tablet Take 2 tablets by mouth at night as needed for sleep. 30 tablet 09/12/2025 5 pantoprazole (Protonix) 40 MG EC tablet Take 1 tablet by mouth daily. Do not crush, chew, or split. 30 tablet 08/15/2025 5 sodium chloride ([place]) 0.65 % nasal spray Administer 1 spray into each nostril as needed for congestion. 30 mL 12 09/12/2025 5 documented as of this encounter Plan of Treatment Upcoming Encounters Date Type Department Care Team (Latest Contact Info) Description 10/26/2025 2:45 PM EST Office Visit [facility] Head, Neck & Respiratory [address] [facility] [place] [address] Kim Machado MD [address] [facility] [address] [place] [address] 10/27/2025 11:00 AM EST Clinical Support [facility] [address] [place] [address] 11/17/2025 7:50 AM EST Clinical Support [facility] [address] [place] [address] 11/17/2025 8:00 AM EST Office Visit [facility] [address] [place] [address] Aristides Reina MD [address] [place] [address] 11/17/2025 2:00 PM EST Office Visit [facility] Nephrology, Bone & Mineral Metabolism [address], [address] [place] [address] 11/21/2025 2:00 PM EST Appointment [facility] [address] [place] [address] 12/01/2025 1:30 PM EST Office Visit [facility] [address] [place] [address] Yanely Rock, [address] [place] [address] 12/14/2025 10:00 AM EST Office Visit [facility] [place] [address], [address] [place] [address] Juarez Recinos MD [address] [place] [address] 01/13/2026 12:00 PM EST Office Visit [facility] [address] [place] [address] Eros Mejia MD [address] [place] [address] documented as of this encounter Procedures Procedure Name Priority Date/Time Associated Diagnosis Comments PET/CT FDG SKULL BASE TO MID THIGH Routine 09/28/2025 8:51 AM EST 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 Several subcentimeter, minimally to mildly FDG-avid cervical lymph nodes left greater than right are again noted and appear similar to the prior study. Multiple mediastinal lymph nodes demonstrate mild FDG activity and are slightly increased in size compared with the previous exam. These may represent treatment-related reactive changes; however, metastatic involvement cannot be entirely excluded. Recommend continued attention on follow-up imaging. Multiple bilateral subcentimeter, mildly hypermetabolic axillary and inguinal lymph nodes are present and may be reactive. Recommend continued attention on follow- up studies. Multifocal bilateral ground-glass and consolidative pulmonary opacities with associated FDG uptake are most consistent with infectious or inflammatory etiologies and may obscure underlying neoplastic lesions. Findings may reflect immunotherapy-related pneumonitis. Recommend clinical correlation. FDG-avid bilateral thyroid lesions, more prominent on the left, is noted. Recommend correlation with ultrasound. The right kidney demonstrates an enlarged and edematous appearance compared with the prior exam. New mwrbb-[id number]-left perinephric and periureteral fat stranding is present, which may represent infectious or inflammatory processes. Recommend correlation with patient symptoms and urinalysis if clinically indicated. CRITICAL RESULT: No. COMMUNICATION: Per this written report. By electronically signing this report, I, the attending physician, attest that I have personally reviewed the images/data for the above examination(s) and agree with the final edited report. 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 Of note, TECHNIQUE: Preparation: Last oral intake (except water) on 09/27/2025 at 6:00 PM. Diabetic: No. Blood glucose at time of FDG administration: 102 mg/dL. Radiopharmaceutical: 12.85 mCi of F-18 FDG administered intravenously at left antecubital fossa at 07 48. Incubation interval: 51 minutes. Oral contrast: Not applicable. Positioning: Arms raised. PET/CT scanner: Nicol 550. PET/CT acquisition: [id number]-ut-pad-thighs. Standardized uptake value (SUV): Corrected for body weight only. CT: Low-dose, [id number], without intravenous contrast. TOTAL DLP (Dose Length Product): 680.96 mGy cm. COMPARISON/CORRELATION: PET/CT 07/27/2025. Correlated imaging: Ultrasound-guided FNA 09/22/2025. Outside CT chest, abdomen and pelvis 08/26/2025. FINDINGS: Technical quality: Diagnostic. Measurements: Unless otherwise specified, all SUVs refer to maximum value in the target (mSUV). Reference: Reference: mean SUV liver: 2.7; previously: 3.4. CT linear measurements performed on axial images. Head and Neck: Redemonstrated peripherally hypermetabolic 4.6 cm heterogeneous left thyroid gland nodule, max SUV 6.5 (series 3, image 210). This correlates with the previously biopsied nodule positive for atypia of undetermined significance. Clinical correlation is recommended. Redemonstrated focal FDG uptake in the right thyroid lobe, max SUV 5.2 (series 3, image 196) which likely correlates with the TR 3 right thyroid lobe nodule seen on comparison ultrasound. Follow-up as recommended per the ultrasound report. Several subcentimeter left cervical lymph node, for example, Subcentimeter left supraclavicular lymph node measuring 4 mm in short axis with SUV max of 1.1, left level 4 lymph node measuring 5 mm in short axis with SUV max of 1.9 Clear paranasal sinuses and mastoid air-cells. Chest: Redemonstrated hypermetabolic mass in the distal esophagus which measures 4.3 x 3.5 cm in greatest axial diameter (series 2, image 373), similar in size to comparison. There is decreased FDG avidity of the mass compared to prior with max SUV 7.7 (series 3, image 35), previously 29.7. Redemonstrated 1.5 cm short axis right upper paratracheal nodule with mild FDG activity, max SUV 3.3 (series 3, image 212), similar to comparison exam. There are multiple mediastinal lymph nodes which are slightly increased in size compared to prior exam with mild FDG avidity. For example: * 8 mm short axis prevascular lymph node, previously 6 mm, max SUV 2.4 (series 3, image 242) * 11 mm short axis left para-aortic lymph node, previously 7 mm, max SUV 3.2 (series 3, measuring 13) There are multiple subcentimeter bilateral axillary lymph nodes with preserved fatty aditya which demonstrate mild FDG uptake, max SUV 3.1 (series 3, image 261) and may be reactive. Recommend continued attention on follow-up. Multifocal groundglass and consolidative opacities within the bilateral upper lobes, lingula and bilateral lower lobes with associated FDG activity, max SUV 7.6 (series 3, image 237) favoring infectious/inflammatory etiology. Recommend attention on follow-up. No new suspicious pulmonary nodules or masses. Minimal bibasilar atelectasis, mild middle lobe and lingular scarring. Sequelae of prior granulomatous insult. Normal caliber of the thoracic aorta. Aortic and coronary calcifications. No pleural effusion, pericardial effusion or pneumothorax. Right chest wall port with tip at the superior cavoatrial junction. Abdomen and Pelvis: No suspicious metabolically active lesions within the abdomen and pelvis. 9 mm short axis left diaphragmatic lymph node with FDG activity similar to that of blood pool, max SUV 2.2 (series 3, image 353), similar in size to comparison exam. Recommend attention on follow-up. Recommend attention on follow-up exam. Otherwise, no suspicious metabolically active or pathologically enlarged retroperitoneal or pelvic adenopathy. Solid Abdominal Organs: No suspicious focal hypermetabolic lesions in the liver significantly greater than the heterogeneous physiologic uptake. Unremarkable noncontrast appearance of the liver. Cholecystectomy. No biliary ductal dilatation. Unremarkable noncontrast appearance of the spleen. The right kidney appears slightly enlarged and edematous compared to prior exam. There is right greater than left perinephric and periureteral stranding. No hydronephrosis. No suspicious adrenal masses. No suspicious pancreatic findings. GI Tract/Mesentery/Peritoneum: Mild focal FDG activity fusing to distal esophagus and GE junction, likely reflux disease. Diffuse moderate FDG activity fusing to gastric mucosa, likely gastritis. Clinical correlation recommended. Physiologic bowel activity, without suspicious focal FDG uptake. The large and small bowel appear normal in caliber. Sigmoid diverticulosis without noncontrast CT evidence of diverticulitis. No suspicious peritoneal/mesenteric findings. Pelvic Viscera: No pelvic masses Enlarged prostate with central gland calcifications but no suspicious focal FDG uptake. Mild circumferential bladder wall thickening with perivesicular stranding. Bernstein catheter in place. There is asymmetric FDG accumulation in the left bladder. Recommend attention on follow-up exams. There are multiple subcentimeter bilateral inguinal lymph nodes which are mildly FDG avid, max SUV 4.8 (series 3, image 567). Recommend attention on follow-up exams. Vasculature: Normal caliber of the abdominal aorta Calcified atherosclerotic changes. Free Fluid: No ascites or drainable fluid collection Skeleton and Soft Tissues: No suspicious metabolically active osseous or soft tissue lesions. No aggressive osseous lytic or sclerotic lesions. Multilevel degenerative changes of the spine. Procedure Note Roby Gomez MD - 09/28/2025 CLINICAL INDICATION: History of gastroesophageal junction adenocarcinoma on C1D15 therapypresenting for Subsequent treatment strategy using FDG PET/CT. Of note, TECHNIQUE: Preparation: Last oral intake (except water) on 09/27/2025 at 6:00 PM. Diabetic: No. Blood glucose at time of FDG administration: 102 mg/dL. Radiopharmaceutical: 12.85 mCi of F-18 FDG administered intravenously atleft antecubital fossa at 07 48. Incubation interval: 51 minutes. Oral contrast: Not applicable. Positioning: Arms raised. PET/CT scanner: Nicol 550. PET/CT acquisition: Mfboci-vv-zww-thighs. Standardized uptake value (SUV): Corrected for body weight only. CT: Low-dose, [id number]-wslu, without intravenous contrast. TOTAL DLP (Dose Length Product): 680.96 mGy cm. COMPARISON/CORRELATION: PET/CT 07/27/2025. Correlated imaging: Ultrasound-guided FNA 09/22/2025.Outside CT chest, abdomen and pelvis 08/26/2025. FINDINGS: Technical quality: Diagnostic. Measurements: Unless otherwise specified, all SUVs refer to maximum valuein the target (mSUV). Reference: Reference: mean SUV liver: 2.7; previously: 3.4. CT linear measurements performed on axial images. Head and Neck: Redemonstrated peripherally hypermetabolic 4.6 cm heterogeneous leftthyroid gland nodule, max SUV 6.5 (series 3, image 210). This correlateswith the previously biopsied nodule positive for atypia of undeterminedsignificance. Clinical correlation is recommended. Redemonstrated focal FDG uptake in the right thyroid lobe, max SUV 5.2(series 3, image 196) which likely correlates with the TR 3 right thyroidlobe nodule seen on comparison ultrasound. Follow-up as recommended perthe ultrasound report. Several subcentimeter left cervical lymph node, for example, Subcentimeterleft supraclavicular lymph node measuring 4 mm in short axis with SUV maxof 1.1, left level 4 lymph node measuring 5 mm in short axis with SUV maxof 1.9 Clear paranasal sinuses and mastoid air-cells. Chest: Redemonstrated hypermetabolic mass in the distal esophagus which measures4.3 x 3.5 cm in greatest axial diameter (series 2, image 373), similar insize to comparison. There is decreased FDG avidity of the mass compared toprior with max SUV 7.7 (series 3, image 35), previously 29.7. Redemonstrated 1.5 cm short axis right upper paratracheal nodule with mildFDG activity, max SUV 3.3 (series 3, image 212), similar to comparisonexam. There are multiple mediastinal lymph nodes which are slightly increased insize compared to prior exam with mild FDG avidity. For example: *8 mm short axis prevascular lymph node, previously 6 mm, max SUV 2.4(series 3, image 242) *11 mm short axis left para-aortic lymph node, previously 7 mm, max SUV3.2 (series 3, measuring 13) There are multiple subcentimeter bilateral axillary lymph nodes withpreserved fatty aditya which demonstrate mild FDG uptake, max SUV 3.1(series 3, image 261) and may be reactive. Recommend continued attentionon follow-up. Multifocal groundglass and consolidative opacities within the bilateralupper lobes, lingula and bilateral lower lobes with associated FDGactivity, max SUV 7.6 (series 3, image 237) favoringinfectious/inflammatory etiology. Recommend attention on follow-up. No new suspicious pulmonary nodules or masses. Minimal bibasilar atelectasis, mild middle lobe and lingular scarring. Sequelae of prior granulomatous insult. Normal caliber of the thoracic aorta. Aortic and coronarycalcifications. No pleural effusion, pericardial effusion or pneumothorax. Right chest wall port with tip at the superior cavoatrial junction. Abdomen and Pelvis: No suspicious metabolically active lesions within the abdomen andpelvis. 9 mm short axis left diaphragmatic lymph node with FDG activity similar tothat of blood pool, max SUV 2.2 (series 3, image 353), similar in size tocomparison exam. Recommend attention on follow-up. Recommend attention onfollow-up exam. Otherwise, no suspicious metabolically active orpathologically enlarged retroperitoneal or pelvic adenopathy. Solid Abdominal Organs: No suspicious focal hypermetabolic lesions in the liver significantlygreater than the heterogeneous physiologic uptake. Unremarkablenoncontrast appearance of the liver. Cholecystectomy. No biliary ductal dilatation. Unremarkable noncontrast appearance of the spleen. The right kidney appears slightly enlarged and edematous compared to priorexam. There is right greater than left perinephric and periureteralstranding. No hydronephrosis. No suspicious adrenal masses. No suspicious pancreatic findings. GI Tract/Mesentery/Peritoneum: Mild focal FDG activity fusing to distal esophagus and GE junction, likelyreflux disease. Diffuse moderate FDG activity fusing to gastric mucosa, likely gastritis.Clinical correlation recommended. Physiologic bowel activity, without suspicious focal FDG uptake. The large and small bowel appear normal in caliber. Sigmoid diverticulosis without noncontrast CT evidence ofdiverticulitis. No suspicious peritoneal/mesenteric findings. Pelvic Viscera: No pelvic masses Enlarged prostate with central gland calcifications but no suspiciousfocal FDG uptake. Mild circumferential bladder wall thickening with perivesicular stranding.Bernstein catheter in place. There is asymmetric FDG accumulation in the leftbladder. Recommend attention on follow-up exams. There are multiple subcentimeter bilateral inguinal lymph nodes which aremildly FDG avid, max SUV 4.8 (series 3, image 567). Recommend attention onfollow-up exams. Vasculature: Normal caliber of the abdominal aorta Calcified atherosclerotic changes. Free Fluid: No ascites or drainable fluid collection Skeleton and Soft Tissues: No suspicious metabolically active osseous or soft tissue lesions. No aggressive osseous lytic or sclerotic lesions. Multilevel degenerative changes of the spine. IMPRESSION: Redemonstrated is an intensely FDG-avid mass in the distal esophagus,similar in size to the prior examination, with interval decrease in FDGavidity, suggestive of residual disease. Several subcentimeter, minimally to mildly FDG-avid cervical lymph nodesleft greater than right are again noted and appear similar to the priorstudy. Multiple mediastinal lymph nodes demonstrate mild FDG activity andare slightly increased in size compared with the previous exam. These mayrepresent treatment-related reactive changes; however, metastaticinvolvement cannot be entirely excluded. Recommend continued attention onfollow-up imaging. Multiple bilateral subcentimeter, mildly hypermetabolic axillary andinguinal lymph nodes are present and may be reactive. Recommend continuedattention on follow-up studies. Multifocal bilateral ground-glass and consolidative pulmonary opacitieswith associated FDG uptake are most consistent with infectious orinflammatory etiologies and may obscure underlying neoplastic lesions.Findings may reflect immunotherapy-related pneumonitis. Recommend clinicalcorrelation. FDG-avid bilateral thyroid lesions, more prominent on the left, is noted.Recommend correlation with ultrasound. The right kidney demonstrates an enlarged and edematous appearancecompared with the prior exam. New jecaa-[id number]-left perinephric andperiureteral fat stranding is present, which may represent infectious orinflammatory processes. Recommend correlation with patient symptoms andurinalysis if clinically indicated. CRITICAL RESULT: No. COMMUNICATION: Per this written report. By electronically signing this report, I, the attending physician, attestthat I have personally reviewed the images/data for the aboveexamination(s) and agree with the final edited report. Drafted by Loni Higgins MD on 09/28/2025 10:22 AM Final report signed by Roby Gomez MD on 09/28/2025 2:31 PM us Kim Machado MD [facility] [...] 12 millicurie, Intravenous, Once, 1 dose, On Fri09/28/25 at 0915, Routine, Imaging NM Protocol Orders Given 09/28/2025 7:48 AM EST 12.85 millicuries Left Antecubital documented in this encounter Additional Health Concerns Infection Onset Date Last Indicated Resolved Time C. difficile 08/14/2025 08/26/2025 Assessment Noted Time PHQ-9 Depression Total Score: 0 08/18/20 11:58 AM EDT A fall risk assessment has been complete d for the patient 09/28/2025 11:36 AM EST A Body Mass Index follow-up plan has been documented for the patient 09/29/2025 5:34 PM EST documented as of this encounter Care Teams Upholstery Trimmer Relationship Specialty Start Date End Date Darius Ken MD [address] [place] [address] PCP - General Internal Medicine 08/23/24 Yanely Rock DO [address] [place] [address] Surgeon Urology 09/22/25 documented as of this encounter
--- OUTSIDE RECORDS SUMMARY | 2025-09-28 07:21 | XMS_ITS | Encounter Summary ---
Author Organization Healthcare Address [address] [id number] Care Team Providers Care Rivet Bucker Name Role Phone Darius Ken MD Primary Care Provider [phone] Yanely Rock DO Unavailable [phone] Reason for Visit * Auth/Cert (Routine) Specialty Diagnoses / Procedures Referred By Broderick olivares Referred To Contact Diagnoses Obstructive nephropathy Margarito Henry MD [address] [place] [address] Phone: tel: fax: [facility] Emergency Department [address] [place] [address] Phone: tel: Referral ID Status Reason Start Date Expiration Date Visits Re quested Visits Authorized [id number] 1 1 Encounter Details Date Type Department Care Team (Latest Contact Info) Description 09/28/2025 7:21 AM EST - 09/28/2025 11:59 PM EST Hospital Encounter [facility] PET Scan [address] [place] [address] Discharge Disposition: Home or Self Care Social [...] any time in the past 12 m [facility], were you homeless or living in a fpc (including now)? No 08/29/2025 [facility] Utilities Answer Date Recorded In [...] split. 30 tablet 08/15/2025 5 sodium chloride ([place]) 0.65 % nasal spray Administer 1 spray into each nostril as needed for congestion. 30 mL 12 09/12/2025 5 documented as of this encounter Plan of Treatment Upcoming Encounters Date Type Department Care Team (Latest Contact Info) Description 10/26/2025 2:45 PM EST Office Visit [facility] Head, Neck & Respiratory [address] [facility], 2nd [place] [address] Kim Machado MD [address] [place] [address] 10/27/2025 11:00 AM EST [facility] [address], [address]nd [place] [address] 11/17/2025 7:50 AM EST Clinical Support [facility] [address] [place] [address] 11/17/2025 8:00 AM EST Office Visit [facility] [address] [place] [address] Aristides Reina MD [address] [place] [address] 11/17/2025 2:00 PM EST Office Visit [facility] Nephrology, Bone & Mineral Metabolism [address] [facility], [address] [place] [address] 11/21/2025 2:00 PM EST Appointment [facility] Radiology [address], 1st [place] [address] 12/01/2025 1:30 PM EST [facility] [address], 2nd [place] [address] Yanely Rock R, DO [address] [place] [address] 12/14/2025 10:00 AM EST Office Visit [facility] [address] [facility], [address] [place] [address] Juarez Recinos MD [address] [place] [address] 01/13/2026 12:00 PM EST Office Visit [facility] [address] [place] [address] Eros Mejia MD [address] [place] [address] documented as of this encounter [...] appearance compared with the prior exam. New cnqiv-zdrfigy-iymx-left perinephric and periureteral fat stranding is present, [...] raised. PET/CT scanner: Nicol 550. PET/CT acquisition: Phwdja-nx-hxj-thighs. Standardized uptake value (SUV): Corrected for body weight only. CT: Low-dose, xml-oxulwf-csam, without intravenous contrast. TOTAL DLP (Dose Length [...] raised. PET/CT scanner: Nicol 550. PET/CT acquisition: Ngdcxx-tg-uxg-thighs. Standardized uptake value (SUV): Corrected for body weight only. CT: Low-dose, ufd-ywnbgc-jksu, without intravenous contrast. TOTAL DLP (Dose Length [...] edematous appearancecompared with the prior exam. New revzc-vcztbhs-fykj-left perinephric andperiureteral fat stranding is present, which [...] documented as of this encounter Care Teams Rivet Bucker Relationship Specialty Start Date End Date Darius Ken MD [address] [place] [address] PCP - General Internal Medicine 08/23/24 Yanely Rock DO [address] [place] [address] Surgeon Urology 09/22/25 documented as of this encounter
--- OUTSIDE RECORDS SUMMARY | 2025-09-28 10:15 | XMS_ITS | Encounter Summary ---
Author Organization Healthcare Address [address] [id number] Care Team Providers Care Director Of Safety And Security Name Role Phone Darius Ken MD Primary Care Provider [phone] Yanely Rock DO Unavailable [phone] Reason for Visit * Reason Comments Follow-up * Auth/Cert (Routine) Specialty Diagnoses / Procedures Referred By Broderick olivares Referred To Contact Diagnoses Obstructive nephropathy Margarito Henry MD [address] [place] [address] Phone: tel: fax: [facility] Emergency Department [address] [place] [address] Phone: tel: Referral ID Status Reason Start Date Expiration Date Visits Re quested Visits Authorized [id number] 1 1 Encounter Details Date Type Department Care Team ([facility] Contact Info) Description 09/28/2025 10:15 AM EST Office Visit [facility] Head, Neck & Respiratory [address] [facility], 2nd [place] [address] Kim Machado MD [address] [facility] [address] [place] [address] 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 No 09/30/2025 [facility] Utilities Answer Date Recorded In the past [...] Sign Reading Time Taken Comments Blood Pressure 102/66 09/28/2025 9:06 AM EST Pulse 90 09/28/2025 9:06 AM EST Temperature 36.7 C (98 F) 09/28/2025 9:06 AM EST Respiratory Rate 16 09/28/2025 9:06 AM EST Oxygen Saturation 96% 09/28/2025 9:06 AM EST Inhaled Oxygen Concentration - - Weight 83.9 kg (184 lb 15.5 oz) 09/28/2025 9:06 AM EST Height - - Body Mass Index 25.09 09/22/2025 2:30 PM [...] Date of Assessment Author No Risk Indicated 09/29/2025 11:30 AM Adali Wilburn RN * Question Answer Date of Assessment Author 1. Wish to be (Past 1 Month) No 025 11:30 AM Adali Wilburn RN 2. Non-Specific Active Suici pearl Thoughts (Past 1 Month) No 09/29/2025 11:30 AM Liza Wilburn RN 6. Suicidal Behavior (Lifetime) No 11:30 AM Adali Wilburn RN documented as of this encounter Miscellaneous Notes * Progress Notes - Benjie Mari MD - 09/28/2025 10:15 AM EST Images from the original note were not included. 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 He is currently undergoing neoadjuvant therapy. After cycle 1 of FLOT he was hospitalized for C. Diff colitis; ID was involved and he was treated with fidaxomixin and PO vanc. He also developed hematuria after Carmona catheter placement during this hospitalization and was found to have elevated PSA; he is set to have his carmona removed and have a voiding trial today with urology andmay be set up for a prostate MRI in the future. Due to difficulty with the FLOT therapy, Mr. Best decided he did not want further cytotoxic chemotherapy and, therefore, he is currently undergoing neoadjuvant immunotherapy with nivolumab and ipilimumab. Today, he reports some ongoing fatigue but this is improving. His diarrhea related to his colitis has resolved. He does report a poor appetite and intermittent epigastric pain. He is using a walker to ambulate at home and has a wheelchair today because he gets intermittent lightheadedness when walking and has considerable fatigue when walking longer distances. Physical exam: Visit Vitals BP 102/66 (BP Location: Right arm) Pulse 90 Temp 36.7 ??C (98 ??F) (Oral) Wt 83.9 kg (184 lb 15.5 oz) SpO2 96% BMI 25.09 kg/m?? General: alert and oriented, appropriate HENT: NC/AT, MMM, trachea midline Lungs: CTAB, non labored on room air, no wheezes or rhonchi Heart: afib, no murmurs Abdomen: soft NT/ND Lymph nodes: no palpable supraclavicular or cervical adenopathy Extremities: no peripheral edema Skin: no rash, no cyanosis and warm to touch Psychiatric: appropriate mood/affect Neuro: AAOx4, no focal deficits Imaging: PET CT 09/28: still some hypermetabolic activity near distal esophagus and GEJ but does appear to be some treatment response as compared to prior PET. 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 He is currently undergoing neoadjuvant therapy-he stopped FLOT after one cycle due to side effects and is currently undergoing 6 weeks of immunotherapy with nivolumab and ipilimumab. PET today demonstrated some evidence of treatment response. We will have him return to clinic after completion of neoadjuvant immunotherapy and ongoing assessment for esophagectomy. We will defer management and evaluation of his elevated PSA with possible prostate MRI to urology. Images and pathology reviewed and discussed with the patient at today's visit and all questions answered. Patient will return to clinic for repeat PET scan after completing neoadjuvant therapy. The patient understands this plan and will call our office for any additional questions or concerns. Benjie Mari MD 09/28/25 10:07 AM Cosigned by Kim Machado MD at 09/29/2025 5:34 PM EST Associated attestation - Kim Machado MD - 09/29/2025 5:34 PM EST Attending Addendum: I reviewed with the resident, during the patient's visit about the patient's history, exam, diagnosis, and the plan of treatment. I reviewed all of the patient's prior records and testing. I interviewed and examined the patient personally. I agree with the plan of care as follows: unfortunately didnot tolerate chemotherapy and is now undergoing immunotherapy only. He does have some interval improvement in his PET scan but he is quite deconditioned now. We discussed that he should continue withimmunotherapy and once he has completed this, I would have him return to see me with a PET scan. Further plans for esophagectomy will depend on his PET and functional status. He will be seeing urology for a trial of void and for his prostate issues. Kim Marcano MD bond analyst Thoracic Surgery documented in this encounter Plan of Treatment Upcoming Encounters Date Type Department Care Team (Latest Contact Info) Description 10/26/2025 2:45 PM EST Office Visit [facility] Head[facility] Neck [facility] Respiratory [address] , 2nd [place] [address] Kim Machado MD [address] [place] [address] 10/27/2025 11:00 AM EST Clinical Support [facility] [address], [address]nd [place] [address] 11/17/2025 7:50 AM EST Clinical Support [facility] Multidisciplinary Oncology Clinic [address] [place] [address] 11/17/2025 8:00 AM EST Office Visit [facility] Multidisciplinary Oncology Clinic [address] [place] [address] Aristides Reina MD [address] [place] [address] 11/17/2025 2:00 PM EST Office Visit [facility] Nephrology, Bone & Mineral Metabolism [address] [facility] [address], [address] [place] [address] 11/21/2025 2:00 PM EST Appointment [facility] S Radiology [address], 1st [place] [address] 12/01/2025 1:30 PM EST Office Visit [facility] Urology [address], [address] [place] [address] Yanely Rock, [address] [place] [address] 12/14/2025 10:00 AM EST Office Visit [facility] [place] [address], [address] [place] [address] Juarez Recinos MD [address] [place] [address] 01/13/2026 12:00 PM EST Office Visit [address] [place] [address] Eros Mejia MD [address] [place] [address] documented as of this encounter Visit Diagnoses [...] of this encounter Care Teams Director Of Safety And Security Relationship Specialty Start Date End Date Darius Ken MD [address] [place] [address] PCP - General Internal Medicine 08/23/24 Yanely Rock DO [address] [place] [address] Surgeon Urology 09/22/25 documented as of this encounter
--- OUTSIDE RECORDS SUMMARY | 2025-09-28 12:00 | XMS_ITS | Encounter Summary ---
Author Organization Healthcare Address [address] [id number] Care Team Providers Care Billboard Poster Helper Name Role Phone Darius Ken MD Primary Care Provider [phone] Yanely Rock DO Unavailable [phone] Reason for Visit * Reason Comments voiding trial * Auth/Cert (Routine) Specialty Diagnoses / Procedures Referred By Broedrick olivares Referred To Contact Diagnoses Obstructive nephropathy Margarito Henry MD [address] [place] [address] Phone: tel: fax: [facility] Emergency Department [address] [place] [address] Phone: tel: Referral ID Status Reason Start Date Expiration Date Visits Re quested Visits Authorized [id number] 1 1 Encounter Details Date Type Department Care Team (Late st Contact Info) Description 09/28/2025 12:00 PM EST Clinical Support [facility] [address], [address]nd [place] [address] Tatiana Weeks RN `````````````````` `````````````````` ``````````````[facility] - OPERATING ROOM, [facility] None Gross hematuria (Primary Dx); BPH with elevated [...] any time in the past 12 m [facility], were you homeless or living in a usp (including now)? No 08/29/2025 [facility] Utilities Answer Date Recorded In the [...] encounter Miscellaneous Notes * Progress Notes - Tatiana Weeks RN - 09/28/2025 12:00 PM EST Justin Best is a 70 y.o. year old male with a history of hematuria, urinary retention, andBPH. He presents today for a voiding trial. Procedure: Voiding trial and catheter removal procedures were discussed with the patient including the possibility for catheter replacement if unable to void. Patient verbalized understanding and gave verbal consent for the procedure. Utilizing the 20 Fr coude, latex carmona catheter already in place, I slowly instilled sterile water into the bladder using a tipped syringe. The patient stated a strong urge tourinate after 200ml had been instilled. The 20Fr coude, latex carmona catheter was removed after deflating the carmona balloon of 8ml of clear fluid. The patient in sitting position and attempted to void. After 25 minutes, patient was still unable to void. Consulted with Dr. Rosa. She advised placing a new catheter, mri of prostate, and follow up appointment with her or Dr. Rock. Bladder catheterization procedure was then discussed with the patient. Verbal consent from the patient was given. Patient was then prepped using betadine swabs x3, lidocaine urojet was instilled, andbladder catheterization per urethra was performed using a 20 fr coude, latex carmona catheter using sterile technique. Catheter was advanced to the hub. There was immediate return of 250ml fluid from catheter and balloon was inflated with 10ml sterile water. Catheter was attached to a urinary drainage bag. Patient tolerated procedure well with no complaints. Next catheter exchange: 10/28/25. MRI scheduled for 11/21/25. Follow up appointment scheduled for 12/01/25. Plan: Patient instructed to call the clinic with any questions or concerns at [phone]. documented in this encounter Plan of Treatment Upcoming Encounters Date Type Department Care Team (Latest Contact Info) Description 10/26/2025 2:45 PM EST Office Visit [facility] Head, Neck & Respiratory [address] [facility], 2nd [place] [address] Kim Machado MD [address] [place] [address] 10/27/2025 11:00 AM EST Clinical Support [facility] [address], 2nd [place] [address] 11/17/2025 7:50 AM EST Clinical Support [facility] [address] [place] [address] 11/17/2025 8:00 AM EST Office Visit [facility] [address] [place] [address] Aristides Reina MD [address] [place] [address] 11/17/2025 2:00 PM EST Office Visit [facility] Nephrology, Bone & Mineral Metabolism [address] [facility], [address] [place] [address] 11/21/2025 2:00 PM EST Appointment [facility] S Radiology [address], 1st [place] [address] 12/01/2025 1:30 PM EST Office Visit [facility] Urology [address], [address]nd [place] [address] Yanely Rock, [address] [place] [address] 12/14/2025 10:00 AM EST Office Visit [facility] [address] [facility], [address] [place] [address] Juarez Recinos MD [address] [place] [address] 01/13/2026 12:00 PM EST Office Visit [facility] [address] [place] [address] Eros Mejia MD [address] [place] [address] documented as of this encounter Visit Diagnoses Diagnosis Gross hematuria- Primary BPH with elevated PSA and lower urinary tract symptoms documented in this encounter Administered Medications Inactive Administered Medications - up to 3 most recent administrations Medication Order MAR Action Action Date Dose Rate Site lidocaine (Uro-Jet) 2 % gel 1 Application Urethral, Once, 1 dose, On Fri09/28/25 at 1330, RoutineIndications:Gross hematuria,BPH with elevated PSA and lower urinary tract symptoms Given 09/28/2025 12:32 PM EST 1 Application documented in this encounter Additional Health Concerns [...] documented as of this encounter Care Teams Billboard Poster Helper Relationship Specialty Start Date End Date Darius Ken MD [address] [place] [address] PCP - General Internal Medicine 08/23/24 Yanely Rock DO [address] [place] [address] Surgeon Urology 09/22/25 documented as of this encounter
--- OUTSIDE RECORDS SUMMARY | 2025-09-29 09:30 | XMS_ITS | Encounter Summary ---
Author Organization Healthcare Address [address] [id number] Care Team Providers Care Pest Locator Name Role Phone Darius Ken MD Primary Care Provider [phone] Yanely Rock DO Unavailable [phone] Reason for Visit * Auth/Cert (Routine) Specialty Diagnoses / Procedures Referred By Broderick olivares Referred To Contact Diagnoses Obstructive nephropathy Margarito Henry MD [address] [place] [address] Phone: tel: fax: [facility] Emergency Department [address] [place] [phone] Phone: tel: Referral ID Status Reason Start Date Expiration Date Visits Re quested Visits Authorized [id number] 1 1 Encounter Details Date Type Department Care Team (Latest Contact Info) Description 09/29/2025 9:30 AM EST Clinical Support [facility] [address] [place] [address] Kalina Emerson, RN None None Adenocarcinoma of gastroesophageal junction Social History Tobacco [...] time in the past 12 m [facility], were you homeless or living in a care home (including now)? No 09/30/2025 [facility] Utilities Answer Date Recorded In the past [...] encounter Miscellaneous Notes * Clinician Note - Kalina Emerson, RN - 09/29/2025 9:30 AM EST Port labs drawn documented in this encounter Plan of Treatment Upcoming Encounters Date Type Department Care Team (Latest Contact Info) Description 10/26/2025 2:45 PM EST Office Visit [facility] [address] [facility] [address] [place] [phone] Kim Machado MD [address] [place] [phone] 10/27/2025 11:00 AM EST Clinical Support [facility] Urology [address] [phone] 11/17/2025 7:50 AM EST Clinical Support [facility] Multidisciplinary Oncology Clinic [address] [place] [phone] 11/17/2025 8:00 AM EST Office Visit [facility] Multidisciplinary Oncology Clinic [address] [place] [phone] Aristides Reina MD [address] [place], [place] [id number] 11/17/2025 2:00 PM EST Office Visit [facility] Nephrology, Bone & Mineral Metabolism [address], [address] [place] [address] 11/21/2025 2:00 PM EST Appointment [facility] S Radiology [address] [place] [phone] 12/01/2025 1:30 PM EST Office Visit [facility] Urology [address] [place] [address] Yanely Rock DO [address] [place] [address] 12/14/2025 10:00 AM EST Office Visit [facility] [place] [address], [address] [place] [address] Juarez Recinos MD [address] [place] [address] 01/13/2026 12:00 PM EST Office Visit [facility] [address] [place] [address] Eros Mejia MD [address] [place] [address] documented as of this encounter Procedures Procedure Name Priority Date/Time Associated Diagnosis Comments CBC WITH AUTO DIFFERENTIAL Routine 09/29/2025 9:16 AM EST Adenocarcinoma of gastroesophageal junction MAGNESIUM, PLASMA Routine 09/29/2025 9:1 6 AM EST Adenocarcinoma of gastroesophageal junction COMPREHENSIVE METABOLIC PANEL, PLASMA Routine 09/29/2025 9:16 AM EST Adenocarcinoma of gastroesophageal junction documented in this encounter Results * (ABNORMAL) CBC and Differential (09/29/2025 9:16 AM EST) WBC Count 9.73 3.70 - 10.30 10*3/uL LAB HEMATOLOGY METHOD 09/29/2025 9:32 AM EST [facility] RBC Count 2.66(L) 4.60 - 6.10 10*6/uL LAB HEMATOLOGY METHOD 09/29/2025 9:32 AM EST [facility] HGB 7.5(L) 13.7 - 17.5 g/dL LAB HEMATOLOGY METHOD 09/29/2025 9:32 AM EST [facility] HCT 23.1(L) 40.0 - 51.0 % LAB HEMATOLOGY METHOD 09/29/2025 9:32 AM EST [facility] Platelet Count 463(H) 155 - 369 10*3/uL LAB HEMATOLOGY METHOD 09/29/2025 9:32 AM EST [facility] MCV 87 79 - 98 fL LAB HEMATOLOGY METHOD 09/29/2025 9:32 AM EST [facility] MCH 28.2 26.0 - 32.0 pg LAB HEMATOLOGY METHOD 09/29/2025 9:32 AM EST [facility] MCHC 32.5 30.7 - 35.5 g/dL LAB HEMATOLOGY METHOD 09/29/2025 9:32 AM EST [facility] RDW 14.6(H) 11.5 - 14.5 % LAB HEMATOLOGY METHOD 09/29/2025 9:32 AM EST [facility] MPV 9.3 8.8 - 12.5 fL LAB HEMATOLOGY METHOD 09/29/2025 9:32 AM EST [facility] nRBC 0.0 <=0.0 per 100 WBCs LAB HEMATOLOGY METHOD 09/29/2025 9:32 AM EST [facility] Differential Type Automated LAB HEMATOLOGY METHOD 09/29/2025 9:32 AM EST [facility] Neutrophils % 64 % LAB HEMATOLOGY METHOD 09/29/2025 9:32 AM EST [facility] Lymphocytes % 14 % LAB HEMATOLOGY METHOD 09/29/2025 9:32 AM EST [facility] Monocytes % 8 % LAB HEMATOLOGY METHOD 09/29/2025 9:32 AM [facility] Eosinophils % 13 % LAB HEMATOLOGY METHOD 09/29/2025 9:32 AM [facility] Basophils % 1 % LAB HEMATOLOGY METHOD 09/29/2025 9:32 AM [facility] Immature Granulocytes % 0 % LAB HEMATOLOGY METHOD 09/29/2025 9:32 AM [facility] Neutrophils Absolute 6.30(H) 1.60 - 6.10 10*3/uL LAB HEMATOLOGY METHOD 09/29/2025 9:32 AM EST [facility] Lymphocytes Absolute 1.33 1.20 - 3.90 10*3/uL LAB HEMATOLOGY METHOD 09/29/2025 9:32 AM EST [facility] Monocytes Absolute 0.74 0.30 - 0.90 10*3/uL LAB HEMATOLOGY METHOD 09/29/2025 9:32 AM EST [facility] Eosinophils Absolute 1.27(H) 0.00 - 0.50 10*3/uL LAB HEMATOLOGY METHOD 09/29/2025 9:32 AM EST [facility] Basophils Absolute 0.05 0.00 - 0.10 10*3/uL LAB HEMATOLOGY METHOD 09/29/2025 9:32 AM EST [facility] Immature Granulocytes Absolute 0.04 0.00 - 0.06 10*3/uL LAB HEMATOLOGY METHOD 09/29/2025 9:32 AM EST [facility] Blood Blood sample taken from central line / Unknown (Port) Long-term Catheter / Unknown 09/29/2025 9:16 AM EST 09/29/2025 9:27 AM EST Narrative [facility] - 09/29/2025 9:32 AM EST Therapeutic decision making should be based on absolute values, rather than percentages. us Salome Arrieta MD LAB BLOOD ORDERABLES Final Resu lt [facility] [address] [place] [address] * (ABNORMAL) Comprehensive Metabolic Panel, Plasma (09/29/2025 9:16 AM EST) Glucose, Plasma 98 74 - 99 mg/dL 09/29/2025 10:16 AM EST [facility] BUN, Plasma 60(H) 8 - 23 mg/dL 09/29/2025 10:16 AM EST [facility] Creatinine, Plasma 9.77(H) 0.70 - 1.20 mg/dL 09/29/2025 10:16 AM EST [facility] BUN/Creatinine Ratio 6 09/29/2025 10:16 AM EST [facility] Sodium, Plasma 134(L) 136 - 145 mmol/L 09/29/2025 10:16 AM EST [facility] Potassium, Plasma 4.4 3.6 - 4.9 mmol/L 09/29/2025 10:16 AM EST [facility] Chloride, Plasma 99 97 - 107 mmol/L 09/29/2025 10:16 AM EST [facility] CO2, Plasma 21(L) 22 - 29 mmol/L 09/29/2025 10:16 AM EST [facility] Anion Gap 14 6 - 16 mmol/L 09/29/2025 10:16 AM EST [facility] Total Calcium, Plasma 8.1(L) 8.9 - 10.2 mg/dL 09/29/2025 10:16 AM EST [facility] Total Protein 5.8(L) 6.3 - 7.9 g/dL 09/29/2025 10:16 AM EST [facility] Albumin, Plasma 2.6(L) 3.5 - 5.2 g/dL 09/29/2025 10:16 AM EST [facility] AST, Plasma 26 10 - 50 U/L 09/29/2025 10:16 AM EST [facility] ALT, Plasma 21 10 - 50 U/L 09/29/2025 10:16 AM EST [facility] Alkaline Phosphatase, Plasma 90 40 - 115 U/L 09/29/2025 10:16 AM EST [facility] Total Bilirubin, Plasma 0.4 0.2 - 1.1 mg/dL 09/29/2025 10:16 AM EST [facility] eGFRcr 5.2 mL/min/1.7 3m*2 09/29/2025 10:16 AM EST [facility] Comment:Reported eGFRcr in m L/min/1.73m2 is based the CKD-EPI 2020 equation that does not use a race coefficient. Blood Blood sample taken from central line / Unknown (Port) Long-term Catheter / Unknown 09/29/2025 9:16 AM EST 09/29/2025 9:45 AM EST us Salome Arrieta MD LAB BLOOD ORDERABLES Final Resu lt Performing Organization Address City/[facility]/ZIP Co de Phone Number [facility] [address] [place] [address] * (ABNORMAL) Magnesium, Plasma (09/29/2025 9:16 AM EST) Magnesium, Plasma 1.6(L) 1.9 - 2.4 mg/dL 09/29/2025 10:16 AM EST [facility] Blood Blood sample taken from central line / Unknown (Port) Long-term Catheter / Unknown 09/29/2025 9:16 AM EST 09/29/2025 9:45 AM EST us Salome Arrieta MD LAB BLOOD ORDERABLES Final Resu lt Performing Organization Address City/[facility]/ZIP Co de Phone Number [facility] [address] [place] [address] documented in this encounter Visit Diagnoses Diagnosis Adenocarcinoma of gastroesophageal junction documented in this encounter Additional Health Concerns Infection Onset Date Last Indicated Resolved Time C. difficile 08/14/2025 08/26/2025 Assessment Noted Time PHQ-9 Depression Total Score: 0 08/18/20 11:58 AM EDT A fall risk assessment has been complete d for the patient 09/29/2025 9:21 AM EST A Body Mass Index follow-up plan has been documented for the patient 10/05/2025 3:46 PM EST documented as of this encounter Care Teams Pest Locator Relationship Specialty Start Date End Date Darius Ken MD [address] [place] [address] PCP - General Internal Medicine 08/23/24 Yanely Rock DO [address] [place] [address] Surgeon Urology 09/22/25 documented as of this encounter
--- OUTSIDE RECORDS SUMMARY | 2025-09-29 10:00 | XMS_ITS | Encounter Summary ---
Author Organization Healthcare Address [address] [place] [address] Care Team Providers Care Gravity Manager Name Role Phone Darius Ken MD Primary Care Provider [phone] Yanely Rock DO Unavailable [phone] Reason for Visit * Reason Comments Follow-up Adenocarcinoma of ga stroesophageal junction * Auth/Cert (Routine) Specialty Diagnoses / Procedures Referred By Broderick olivares Referred To Contact Diagnoses Obstructive nephropathy Margarito Henry MD [address] [place] [phone] Phone: tel: fax: [facility] Emergency Department [address] [place] [phone] Phone: tel: Referral ID Status Reason Start Date Expiration Date Visits Re quested Visits Authorized [id number] 1 1 Encounter Details Date Type Department Care Team (Latest Contact Info) Description 09/29/2025 10:00 AM EST Office Visit [facility] [address] [place] [address] Aristides Reina MD [address] [place] [address] Adenocarcinoma of gastroesophageal junction (Primary Dx) Social History Tobacco Use Types [...] any time in the past 12 [facility], were you homeless or living in a assisted (including now)? No 09/30/2025 [facility] Utilities Answer Date Recorded In the [...] Sign Reading Time Taken Comments Blood Pressure 101/61 09/29/2025 9:25 AM EST pt reports feeling lightheaded most of the time Pulse 85 09/29/2025 9:25 AM EST Temperature 36.6 C (97.9 F) 09/29/2025 9:25 AM EST Respiratory Rate 16 09/29/2025 9:25 AM EST Oxygen Saturation 100% 09/29/2025 9:2 5 AM EST Inhaled Oxygen Concentration - - Weight 83.4 kg (183 lb 13.8 oz) 09/29/2025 9:25 AM EST Height 182.9 cm (6') 09/29/2025 9:25 AM EST Body Mass Index 24.94 09/29/2025 9:25 AM EST documented in this encounter Functional [...] Progress Notes - Aristides Reina MD - 09/29/2025 10:00 AM EST Images from the original note were not included. Oncology Clinic Initial Visit Patient Name: Justin Best Date of : 1955 Referring Physician:No referring provider defined for this encounter. Encounter Date: 09/29/2025 Chief Complaint: Continued management of GEJ adenocarcinoma History of present illness: Mr. Best is a 70-year-old male with a relevant past medical history of hypertension who presents to [facility] for continued care of recently diagnosed GE junction adenocarcinoma. See onc history below. Past Medical History: Reviewed by me; any relevant updates made in Epic. Relevant history includes: Past Medical History[1] Oncologic History: Oncology History Overview Note Mr. Best is a 69-year-old male with a relevant past medical history of hypertension who presents to [facility] today to establish care for recently [...] YOLI. Treated with fidaxomicin and PO vanc. 09/13/2025: C1D1 neoadjuvant Ipi/Nivo Adenocarcinoma of gastroesophageal junction 07/20/2025 Initial Diagnosis [...] mg (08/18/2025) 09/13/2025 - Chemotherapy nivolumab (Opdivo) 240 mg in sodium chloride 0.9 % 100 mL IVPB, 240 mg (original dose 3 mg/kg), Intravenous, Once, 1 of 1 cycle Dose modification: 240 mg (original dose 3 mg/kg, Cycle 1, Reason: Other (See Comments)) Administration: 240 mg (09/13/2025) ipilimumab (Yervoy) 85 mg in sodium chloride 0.9 % 50 mL IVPB, 1 mg/kg = 85 mg, Intravenous, Once, 1 of 1 cycle Administration: 85 mg (09/13/2025) Interval History: Last seen in this clinic on 09/13/2025. Since that time, patient received C1D1 of neoadjuvant Ipi/Nivo. Patient was seen by urology and ID on 09/22. PET/CT completed on 09/28/2025 (see below). History of Present Illness He reports overall good health since his last visit 2 weeks ago, with the exception of a stomachache today. Diarrhea occurred 2 to 3 days prior, which was managed with medication. The course of vancomycin and daptomycin has been completed. Pantoprazole is being taken for acid reflux, and famotidineis used over the counter for stomach sensitivity. A consultation with the urology team led to a voiding trial on 09/28/2025, which was unsuccessful, resulting in the placement of another catheter. An MRI is scheduled for 11/2025 due to an enlarged prostate, which may require a procedure to reduce its size. Elevated PSA levels were noted but not communicated to the patient. Vomiting occurred on 09/28/2025 at the urologist's office, possibly due to the PET scan, but no other episodes of vomiting have been reported. No new skin rashes have been observed, though dry skin has been present since completing chemotherapy. Mobility is assisted with awalker, and physical therapy is scheduled to start on 10/03/2025. There are no refills for finasteride. Appetite has been poor, with a weight loss of approximately 5 pounds over the past month, currentlyweighing around 184 to 185 pounds. Dietary supplementation includes Boost. Immunotherapy is believed to be better tolerated than chemotherapy. There are no refills for pantoprazole. A PET scan on 09/28/2025 showed no concerns regarding the thyroid or prostate. The thyroid ultrasound and biopsy results were mildly suspicious, with a follow- up ultrasound recommended in a year. Past Surgical History: Reviewed by me; any relevant updates made in [facility]. Relevant history includes: Surgical History[2] Family History: Reviewed by me; any relevant updates made in [facility]. Relevant history includes: Family History[3] Father [...] file Substance and Sexual Activity Alcohol use: Not Currently Alcohol/week: 1.0 standard drink of alcohol Types: 1 Cans of beer per week Drug use: Never Sexual activity: Not Currently Partners: Female control/protection: Post-menopausal Other Topics Concern [...] Social Connections: Unknown (08/19/2023) Received from [facility] Community Support Help with Day-to-Day [...] besides as mentioned in HPI Objective Vitals: 09/29/25 0925 BP: 101/61 Pulse: 85 Resp: 16 Temp: 36.6 ??C (97.9 ??F) SpO2: 100% Physical Exam Gen: NAD Eyes: No scleral icterus, normal conjunctivae HENT: [...] appear normal. Labs, Imaging, Pathology: Reviewed in [facility] and/or Care everywhere, notable as discussed [...] nonspecific. Recommend clinical correlation and PSA correlation. PET/CT (09/28/2025): IMPRESSION: Redemonstrated is an intensely FDG-avid mass [...] changes; however, metastatic involvement cannot be entirely excluded.Recommend continued attention on follow-up imaging. Multiple bilateral subcentimeter, mildly hypermetabolic axillary and inguinal lymph nodes are present and may be reactive. Recommend continued attention on follow-up studies. Multifocal bilateral ground-glass and consolidative pulmonary opacities with associated FDG uptake are most consistent with infectious or inflammatory etiologies and may obscure underlying neoplasticlesions. Findings may reflect immunotherapy-related pneumonitis. Recommend clinical correlation. FDG-avid bilateral thyroid lesions, more prominent on the left, is noted. Recommend correlation with ultrasound. The right kidney demonstrates an enlarged and edematous appearance compared with the prior exam. New rwfgg-[id number]-left perinephric and periureteral fat stranding is present, which may representinfectious or inflammatory processes. Recommend correlation with patient symptoms and urinalysis ifclinically indicated. Performance Status ECOG 2 Assessment and Plan Assessment/Plan Mr. Best is a 70-year-old male with a relevant past medical history of hypertension who presents to [facility] for evaluation and [...] HER2/miladys: Negative H. Pylori negative NGS pending (Hanna 08/30/2025) Treatment: FLOT-D (08/03/2025 - 2025) Ipi/Nivo (09/13/2025 - Present) Treatment intent: Neoadjuvant Treatment related complications: Nausea, [...] treat with 6 weeks of neoadjuvant Ipi/Nivo Will hold C1D15 today due to severe YOLI Following completion, patient get repeat imaging and be evaluated for esophagectomy. Following surgical intervention, patient will receive adjuvant Nivolumab 480 mg Q28 days for nine cycles RTC prior to C1D29 in approximately 2 weeks (Will reach out to thoracic surgery to review imaging and plan for surgical intervention) 2.) YOLI, concern for obstructive Creatinine today 9.77 (up from baseline of 1.0) Has failed several voiding trials Seeing urology Carmona replaced yesterday and draining appropriately PET/CT from 09/28 with right kidney slightly enlarged and edematous compared to prior exam. There is right greater than left perinephric and periureteral stranding. No hydronephrosis Plan: Will send to ED for evaluation of severe obstructive nephropathy with possible need for right sidedPCNT Repeat labs in ED Will get IVF Likely needs inpatient nephrology and urology consult Carmona in place 3.) VTE risk assessment, A. Fib Currently on AC due to Afib Plan: Holding bisoprolol while experiencing orthostatic hypotension 4.) High risk for malnutrition Given location of patient's lesion and associated symptoms, patient is a high risk for calorie deficit and malnutrition Currently meeting caloric needs Plan: Will consult nutrition in the future if problems arise Discussed potential need for G-tube if unable to tolerate oral intake Encouraged patient to use dietary supplements (boost, ensure, etc) 5.) Concern for primary thyroid malignancy PET/CT from 07/27/2025 notable for focal abnormal uptake in the left side fusing into ill-defined complex nodule with soft tissue component measuring about 3.7 x 2.6 cm. Thyroid US from 09/22/2025 with TR3 (mildly suspicious) right thyroid nodule. Plan: Will follow up with repeat thyroid US in 1 year (September 2026) 6.) Prostate gland enlargement PET/CT from 07/27/2025 notable for enlarged prostate gland with heterogenous FDG activity PSA (09/13/2025): 8.4 Plan: Patient will need additional workup to rule out benign etiology of elevated PDS prior to biopsy May benefit from multiparametric MRI Continue to follow with urology to initiate additional workup and to perform biopsy if needed Plan for voiding trial in once week with urology 7.) C. Diff colitis (improving) See admission from 08/26-09/12/2025 S/p course of fidaxomicin and PO Vanc Plan: Continue to follow with ID as needed 8.) Urinary retention with mild hematuria Dc'd with carmona Currently on alfuzosin 10 mg every day and finasteride Seen by urology while inpatient Hematuria 2/2 traumatic carmona insertion Plan: Continue to follow with urology Hold alfuzosin for now while experiencing orthostatic hypotension Continue finasteride Counseled on risk of orthostatic hypotension 9.) Normocytic anemia Baseline 13-14 Currently 8.6 MCV: 92 Received supportive blood transfusions while inpatient Likely multifactorial in the setting of severe infection (C. Diff, recent cytotoxic chemotherapy, inflammation) Plan: Continue to monitor Transfuse to keep Hg >7.0 10.) Orthostatic hypotension (resolved) Clinical Rationale: Decision to add durvalumab to [...] Instability-High Gastric or Esophagogastric Junction Adenocarcinoma: The [facility] NEONIPIGA Phase II Study Between August 2019 and April 2021, 32 patients with dMMR/MSI-H gastric/GEJ adenocarcinoma were enrolled. The median age was 65.5 years (range, 40-80). Clinical stages were cT2-T3N0 (n = 9), cT2-T3N1(n = 22), and [id number] (n = 1, wrongly included). With a [...] 6 hours as needed for pain or fever., Disp: , Rfl: alfuzosin (Uroxatral) 10 MG 24 hr tablet, Take 1 tablet by mouth daily., Disp: , Rfl: apixaban (Eliquis) 5 MG tablet, Take 1 tablet by mouth 2 times a day., Disp: 60 tablet, Rfl: 0 bisoprolol (Zebeta) 5 MG tablet, , Disp: , Rfl: diphenhydrAMINE (Benadryl) 25 MG tablet, Take 1 tablet by mouth at night as needed for itching., Disp: , Rfl: famotidine (Pepcid) 20 MG tablet, Take 1 tablet by mouth daily., Disp: , Rfl: finasteride (Proscar) 5 MG tablet, Take 1 tablet by mouth daily. Do not crush, chew, or split., Disp: 30 tablet, Rfl: 0 guaiFENesin (Robitussin) 100 MG/5ML solution, Take 10 mL by mouth every 4 hours as needed for cough., Disp: , Rfl: HYDROcodone-acetaminophen (Ages [place]) 5-325 MG tablet, Take 1 tablet by mouth every 6 hours as needed for moderate pain or severe pain., Disp: 28 tablet, Rfl: 0 lidocaine (Uro-Jet) 2 % gel, Insert 1 Application into the urethra as needed for mild pain., Disp: 15 mL, Rfl: 0 loperamide (Imodium A-D) 2 MG tablet, Take 1 tablet by mouth every 2 hours as needed for diarrhea. MAX 8 tablets daily, Disp: , Rfl: melatonin tablet, Take 2 tablets by mouth at night as needed for sleep., Disp: 30 tablet, Rfl: 0 rosuvastatin (Crestor) 10 MG tablet, Take 1 tablet by mouth daily., Disp: , Rfl: sodium chloride (Calloway) 0.65 % nasal spray, Administer 1 spray into each nostril as needed for congestion., Disp: 30 mL, Rfl: 12 Vancomycin HCl 50 MG/ML oral solution, Take 2.5 mL by mouth 4 times a day for 31 doses., Disp: 77.5mL, Rfl: 0 Cosigned by Salome Arrieta MD at 09/29/2025 2:55 PM EST Associated attestation - Salome Arrieta MD - 09/29/2025 2:55 PM EST I saw and evaluated the patient with the resident/fellow. I discussed the case with the resident/fellow and agree with the findings and plan as documented. Labs reviewed with respect to bone marrow, renal, and hepatic function due to YOLI wll need to referto ER for further workup. Concern for obstructive etiology Tolerating well. Will discuss timing wit CT surgery team Therapy on hold 45 minutes were spent with the patient of which 30 or more were counseling minutes regarding plan and coordination of care and follow up lab and/or scan review, scheduling, symptom management, and possible treatment side effects of anti-cancer therapy. documented in this encounter Plan of Treatment Upcoming Encounters Date Type Department Care Team (Latest Contact Info) Description 10/26/2025 2:45 PM EST Office Visit [facility] CC Head, Neck & Respiratory [address] [facility] [place] [address] Kim Machado MD [address] [facility] [address] [place] [phone] 10/27/2025 11:00 AM EST Clinical Support [facility] Urology [address], [address] [place] [phone] 11/17/2025 7:50 AM EST Clinical Support [facility] [address] [place] [phone] 11/17/2025 8:00 AM EST Office Visit [facility] [address] [place] [phone] Aristides Reina MD [address] [place] [address] 11/17/2025 2:00 PM EST Office Visit [facility] Nephrology, Bone & Mineral Metabolism [address] [facility], [address] [place] [phone] 11/21/2025 2:00 PM EST Appointment [facility] [address] [place] [phone] 12/01/2025 1:30 PM EST Office Visit [facility] [address], [address] [place] [address] Yanely Rock R, DO [address] [place] [address] 12/14/2025 10:00 AM EST Office Visit [facility] [address] [facility], [address] [place] [address] Juarez Recinos MD [address] [place] [address] 01/13/2026 12:00 PM EST Office Visit [facility] [address] [place] [phone] Eros Mejia MD [address] [place] [address] documented as of this encounter Results * (ABNORMAL) CBC and Differential (09/29/2025 9:16 AM EST) WBC Count 9.73 3.70 - 10.30 10*3/uL LAB HEMATOLOGY METHOD 09/29/2025 9:32 AM EST [facility] RBC Count 2.66(L) 4.60 - 6.10 [...] LAB HEMATOLOGY METHOD 09/29/2025 9:32 AM EST [facility] MCV 87 79 - 98 fL LAB HEMATOLOGY METHOD 09/29/2025 9:32 AM EST [facility] MCH 28.2 26.0 - 32.0 pg LAB HEMATOLOGY METHOD 09/29/2025 9:32 AM EST [facility] MCHC 32.5 30.7 - 35.5 g/dL LAB HEMATOLOGY METHOD 09/29/2025 9:32 AM EST [facility] RDW 14.6(H) 11.5 - 14.5 % LAB HEMATOLOGY METHOD 09/29/2025 9:32 AM EST [facility] MPV 9.3 8.8 - 12.5 fL LAB HEMATOLOGY METHOD 09/29/2025 9:32 AM EST [facility] nRBC 0.0 <=0.0 per 100 WBCs LAB HEMATOLOGY METHOD 09/29/2025 9:32 AM EST [facility] Differential Type Automated LAB HEMATOLOGY METHOD 09/29/2025 9:32 AM [facility] Neutrophils % 64 % LAB HEMATOLOGY METHOD 09/29/2025 9:32 AM EST [facility] Lymphocytes % 14 % LAB HEMATOLOGY METHOD 09/29/2025 9:32 AM EST [facility] Monocytes % 8 % LAB HEMATOLOGY METHOD 09/29/2025 9:32 AM EST [facility] Eosinophils % 13 % LAB HEMATOLOGY METHOD 09/29/2025 9:32 AM EST [facility] Basophils % 1 % LAB HEMATOLOGY METHOD 09/29/2025 9:32 AM [facility] Immature Granulocytes % 0 % LAB HEMATOLOGY METHOD 09/29/2025 9:32 AM [facility] Neutrophils Absolute 6.30(H) 1.60 - 6.10 10*3/uL LAB HEMATOLOGY METHOD 09/29/2025 9:32 AM EST [facility] Lymphocytes Absolute 1.33 1.20 - 3.90 10*3/uL LAB HEMATOLOGY METHOD 09/29/2025 9:32 AM [facility] Monocytes Absolute 0.74 0.30 - 0.90 10*3/uL LAB HEMATOLOGY METHOD 09/29/2025 9:32 AM [facility] Eosinophils Absolute 1.27(H) 0.00 - 0.50 10*3/uL LAB HEMATOLOGY METHOD 09/29/2025 9:32 AM [facility] Basophils Absolute 0.05 0.00 - 0.10 10*3/uL LAB HEMATOLOGY METHOD 09/29/2025 9:32 AM [facility] Immature Granulocytes Absolute 0.04 0.00 - 0.06 10*3/uL LAB HEMATOLOGY METHOD 09/29/2025 9:32 AM [facility] Blood Blood sample taken from central line / Unknown (Port) Long-term Catheter / Unknown 09/29/2025 9:16 AM EST 09/29/2025 9:27 AM EST Narrative [facility] - 09/29/2025 9:32 AM EST Therapeutic decision making should be based on absolute values, rather than percentages. us Salome Arrieta MD LAB BLOOD ORDERABLES Final Resu lt [facility] [address] [place] [phone] * (ABNORMAL) Comprehensive Metabolic Panel, Plasma (09/29/2025 9:16 AM EST) Glucose, Plasma 98 74 - 99 mg/dL 09/29/2025 10:16 AM EST [facility] BUN, Plasma 60(H) 8 - 23 mg/dL 09/29/2025 10:16 AM EST [facility] Creatinine, Plasma 9.77(H) 0.70 - 1.20 mg/dL 09/29/2025 10:16 AM EST [facility] BUN/Creatinine Ratio 6 09/29/2025 10:16 AM EST [facility] Sodium, Plasma 134(L) 136 - 145 mmol/L 09/29/2025 10:16 AM EST [facility] Potassium, Plasma 4.4 3.6 - 4.9 mmol/L 09/29/2025 10:16 AM EST [facility] Chloride, Plasma 99 97 - 107 mmol/L 09/29/2025 10:16 AM EST [facility] CO2, Plasma 21(L) 22 - 29 mmol/L 09/29/2025 10:16 AM EST [facility] Anion Gap 14 6 - 16 mmol/L 09/29/2025 10:16 AM EST [facility] Total Calcium, Plasma 8.1(L) 8.9 - 10.2 mg/dL 09/29/2025 10:16 AM EST [facility] Total Protein 5.8(L) 6.3 - 7.9 g/dL 09/29/2025 10:16 AM EST [facility] Albumin, Plasma 2.6(L) 3.5 - 5.2 g/dL 09/29/2025 10:16 AM EST [facility] AST, Plasma 26 10 - 50 U/L 09/29/2025 10:16 AM EST [facility] ALT, Plasma 21 10 - 50 U/L 09/29/2025 10:16 AM EST [facility] Alkaline Phosphatase, Plasma 90 40 - 115 U/L 09/29/2025 10:16 AM EST [facility] Total Bilirubin, Plasma 0.4 0.2 - 1.1 mg/dL 09/29/2025 10:16 AM EST [facility] eGFRcr 5.2 mL/min/1.7 3m*2 09/29/2025 10:16 AM EST [facility] Comment:Reported eGFRcr in m L/min/1.73m2 is based the CKD-EPI 2020 equation that does not use a race coefficient. Blood Blood sample taken from central line / Unknown (Port) Long-term Catheter / Unknown 09/29/2025 9:16 AM EST 09/29/2025 9:45 AM EST us Salome Arrieta MD LAB BLOOD ORDERABLES Final Resu lt Performing Organization Address City/[facility]/ZIP Co de Phone Number [facility] [address] [place] [address] * (ABNORMAL) Magnesium, Plasma (09/29/2025 9:16 AM EST) Magnesium, Plasma 1.6(L) 1.9 - 2.4 mg/dL 09/29/2025 10:16 AM EST [facility] Blood Blood sample taken from central line / Unknown (Port) Long-term Catheter / Unknown 09/29/2025 9:16 AM EST 09/29/2025 9:45 AM EST us Salome Arrieta MD LAB BLOOD ORDERABLES Final Resu lt [facility] [address] [place] [address] documented in this encounter Visit Diagnoses Diagnosis [...] documented as of this encounter Care Teams Gravity Manager Relationship Specialty Start Date End Date Darius Ken MD [address] [place] [address] PCP - General Internal Medicine 08/23/24 Yanely Rock DO [address] [facility] [address] [place] [address] Surgeon Urology 09/22/25 documented as of this encounter
--- OUTSIDE RECORDS SUMMARY | 2025-09-29 11:55 | XMS_ITS | Encounter Summary ---
Author Organization Healthcare Address [address] [place] [address] Care Team Providers Care Caramel Cutter Helper Name Role Phone Darius Ken MD Primary Care Provider [phone] Yanely Rock DO Unavailable Rosalinda Cox RN Unavailable Unavailable Reason for Referral * Consultation (Routine) - Authorized Specialty Diagnoses / Procedures Referred By Contac t Referred To Contact Family Medicine Diagnoses CKD (chronic kidney disease) stage 2, GFR 60-89 ml/min Reny Christensen DO [address] [place] [address] Phone: tel: fax: Referral ID Status Reason Start Date Expiration Date V isits Requested Visits Authorized [id number] Authorized 10/05/2025 04/06/2027 1 1 * Consultation (Routine) - Authorized Specialty Diagnoses / Procedures Referred By Contac t Referred To Contact Family Medicine Diagnoses Asymptomatic bacteriuria Reny Christensen DO [address] [place] [address] Phone: tel: fax: Referral ID Status Reason Start Date Expiration Date V isits Requested Visits Authorized [id number] Authorized 10/05/2025 04/06/2027 1 1 Reason for Visit * Reason Comments Abnormal Lab * Auth/Cert (Routine) Specialty Diagnoses / Procedures Referred By Broderick olivares Referred To Contact Diagnoses Obstructive nephropathy YOLI Shannon Murrell MD [address] [place] [address] Phone: tel: fax: [facility] [address] [place] [phone] Phone: tel: Referral ID Status Reason Start Date Expiration Date Visits Re quested Visits Authorized [id number] 1 1 Encounter Details Date Type Department Care Team (Latest Contact Info) Description 09/29/2025 11:55 AM EST - 10/05/2025 5:47 PM EST Hospital Encounter [facility] Inpatient [address] [place] [address] Onel Byrd MD [address] [place] [address] Shannon Murrell MD [address] [place] [address] Sue Malcolm MD [address] [place] [address] Reny Christensen DO [address] [place] [address] Adenocarcinoma of gastroesophageal junction (Primary Dx); YOLI (acute kidney injury); Obstructive nephropathy; Asymptomatic bacteriuria; ATN (acute tubular necrosis); CKD (chronic kidney disease) stage 2, GFR 60-89 ml/min Discharge Disposition: Home or Self Care Social [...] time in the past [address] [facility], were you homeless or living in a prison (including now)? No 10/10/2025 [facility] Utilities Answer Date Recorded In the [...] Sign Reading Time Taken Comments Blood Pressure 135/80 10/05/2025 11:33 AM EST Pulse 63 10/05/2025 11:33 AM EST Temperature 36.3 C (97.3 F) 10/05/2025 11:33 AM EST Respiratory Rate 16 10/05/2025 11:3 3 AM EST Oxygen Saturation 97% 10/05/2025 11: 33 AM EST Inhaled Oxygen Concentration - - Weight 88.4 kg (194 lb 14.2 oz) 10/03/2025 5:12 AM EST Height 182.9 cm (6') 09/29/2025 6:05 PM EST Body Mass Index 26.43 09/29/2025 6:05 PM EST documented in this encounter Functional Status * Question Answer Date of Assessment Author Precautions Fall risk;[facility] surveillance 10/05/2025 4:00 PM EST Loni Barth RN * Over the past 2 weeks, [...] Question Answer Entry Date Author Precautions Fall risk;[facility] surveillance 10/05/2025 4:00 PM EST Barth, Loni J, RN documented in this encounter Medications at Time of Discharge Aluminum & Magnesium Hydroxide (gi cocktail) Take 30 mL by mouth 4 times a day as needed (Indigestion). 100 mL 10/05/2025 5 diphenhydrAMINE (Benadryl) 50 MG tablet Take 1 tablet by mouth at night as needed for itching. 30 tablet 10/05/2025 diphenhydrAMINE (Benadryl) 50 MG tablet Take 1 tablet by mouth at night as needed for itching. 30 tablet 10/05/2025 emollient (Thera-Derm, Eucern) lotion moisturizing lotion To be applied in affected areas. 236 mL 10/05/2025 famotidine (Pepcid) 20 MG tablet Take 1 tablet by mouth daily. finasteride (Proscar) 5 MG tablet Take 1 tablet by mouth daily. Do not crush, chew, or split. Pt asking about refill 30 tablet 3 09/29/2025 MELATONIN PO Take 1 tablet by mouth at night as needed. pantoprazole (Protonix) 40 MG EC tablet Take 1 tablet by mouth daily. Do not crush, chew, or split. Pt asking about refill 30 tablet 3 09/29/2025 6 predniSONE (Deltasone) 10 MG tablet Take 8 tablets by mouth daily for 1 day, THEN 6 tablets daily for 7 days, THEN 4 tablets daily for 7 days, THEN 2 tablets daily for 7 days, THEN 1 tablet daily for 7 days, THEN 0.5 tablets daily for 7 days. 103 tablet 10/08/2025 6 tamsulosin (Flomax) 0.4 MG 24 hr capsule Take 1 capsule by mouth nightly. 30 capsule 10/05/2025 sodium bicarbonate 650 MG tablet Take 1 tablet by mouth 3 times a day for 7 days. 21 tablet 10/05/2025 5 atovaquone (Mepron) 750 MG/5ML suspensionIndicati ons:ATN (acute tubular necrosis) Take 10 mL by mouth daily for 10 days. 100 mL 10/06/2025 5 documented as of this encounter Miscellaneous Notes * Progress Notes - Briseyda Dixon - 10/05/2025 5:47 PM EST Case Management Adult Progress Note Justin Best 70 y.o. male CSN: [id number] Admission: 09/29/2025 11:55 AM Primary Problem: Obstructive nephropathy Anticipated Discharge Date: 10/05/25 Additional Comments Evening SW contacted this date about pt's need for a rollator for DC. SW obtained order from this date, and sent order to [facility] for delivery. However, [facility] not in network with the pt's [facility] ins. 2 lateness of the hour, no other DME delivery options exist. [facility] roll[facility]. However, bedside RN reports that the pt left prior to delivery of rollator. SW verbalized understanding and communicated with [facility]. No further SW concerns identified at this time. SW will continue to remain available and will follow up with DC planning and needs as appropriate. Briseyda Dixon * Progress Notes - Briseyda Dixon - 10/05/2025 5:22 PM EST Case Management Adult Progress Note Justin Best 70 y.o. male CSN: [id number] Admission: 09/29/2025 11:55 AM Primary Problem: Obstructive nephropathy Additional Comments Evening SW notified by bedside RN that the pt is requiring a rollator for DC this evening. SW unable to send order prior to late shift hours, and therefore voucher was required for [facility]. Pt [id number]% FPG. No further SW concerns identified at this time. SW will continue to remain available and will follow up with DC planning and needs as appropriate. Briseyda Dixon * Nursing Note - Loni Barth RN - 10/05/2025 5:05 PM EST Discharge orders received. After visit summary reviewed with patient and signed. Port was heparin locked and clamped. Also capped with an alcohol cap. Patient received meds to beds. Patient belongings sent with patient to home. I reached out to several people to get the patient a walker with a seatlike PT suggested, but by the time it was ordered the patient said that they were ready to leave and did not wait to take it with them. Pt was wheeled down to [facility] via a wheelchair by transport. Patient was then discharged to home. * Astrid Nolasco - Loni Barth RN - 10/05/2025 3:17 PM EST Images from the original note were not included. [id number] Acute Kidney Injury: Care Instructions Overview Acute kidney injury (YOLI) is a sudden decrease in kidney function. This can happen over a period ofhours, days or, in some cases, weeks. YOLI used to be called acute renal failure, but kidney failuredoesn't always happen with YOLI. Common causes of YOLI are serious infection, blood loss, and some medicines. When YOLI happens, the kidneys have trouble removing waste and excess fluids from the body as urine.The waste and fluids build up and become harmful. Kidney function may return to normal if the cause of YOLI is treated quickly. Your chance of a full recovery depends on what caused the problem, how quickly the cause was treated, and what other medical problems you have. You may have a treatment called dialysis. It does the work of healthy kidneys to remove waste and fluids for a short time. Follow-up care is a rosenberg part of your treatment and safety. Be sure to make and go to all appointments, and call your doctor if you are having problems. It's also a good idea to know your test resultsand keep a list of the medicines you take. How can you care for yourself at home? ? Talk to your doctor about how much fluid you should drink. ? Eat a balanced diet. Talk to your doctor or a dietitian about what type of diet may be best for you. You may need to limit sodium, potassium, and phosphorus. ? If you need dialysis, follow the instructions and schedule for dialysis that your doctor gives you. ? Do not smoke. Smoking can make your condition worse. If you need help quitting, talk to your doctor about stop-smoking programs and medicines. These can increase your chances of quitting for good. ? Limit alcohol. ? Review all of your medicines with your doctor. Do not take any medicines, including nonsteroidal anti-inflammatory drugs (NSAIDs), such as ibuprofen (Advil, Motrin) or naproxen (Aleve), unless yourdoctor says it is safe for you to do so. ? Make sure that anyone treating you for any health problem knows that you have had YOLI. When should you call for help? Call 911 anytime you think you may need emergency care. For example, call if: ? You passed out (lost consciousness). Call your doctor now or seek immediate medical care if: ? You have new or worse nausea and vomiting. ? You have much less urine than normal, or you have no urine. ? You are feeling confused or cannot think clearly. ? You have new or more blood in your urine. ? You have new swelling. ? You are dizzy or lightheaded, or feel like you may faint. Watch closely for changes in your health, and be sure to contact your doctor if: ? You do not get better as expected. Current as of: August 20, 2023 Content Version: 14.0 Care instructions adapted under license by your healthcare professional. If you have questions about a medical condition or this instruction, always ask your healthcare professional. [employer] disclaims any warranty or liability for your use of this information. ?? [id number] [employer]. * Hospital Course - Reny Christensen DO - 10/05/2025 1:41 PM EST Mr. 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 Medically ready for discharge 10/05/2025. Acute kidney injury suspected due to AIN likely from immunotherapy Creatinine improving with steroids Nephrology consulted and pt started on steroids w/ PJP ppx (atovaquone 1500 mg daily) S/p kidney biopsy 10/04 PLAN - Continue prednisone 80 mg daily until this Sunday 10/07 (week 1) - Transition to Prednisone 60mg in week 2, 40mg in week 3, 20 mg in week 4, 10mg in week 5 and 5mg in week 6. Acute UTI with pseudomonas in U cx Initially started on empiric ceftriaxone blood culture showed Pseudomonas Patient is currently asymptomatic Carmona catheter was exchanged 10/03 by Urology PLAN - Continue to monitor patient without antibiotics - Pt will leave with carmona and f/u with uro; sees Dr. Rock outpatient on 12/01/2025 Adenocarcinoma of the esophagus/gastroesophageal junction: Previously treated with leucovorin, oxaliplatin, Taxotere, fluorouracil. Now on immunotherapy only with nivolumab and ipilimumab. PET-CT September 28 showed distal esophageal activity concerning for residual disease The patient reports that with acute kidney injury his immunotherapy is on hold He was not tolerating chemotherapy and that is also on hold PLAN - We will continue with full liquid diet and will supplement with nutrition shakes due to swallow dysfunction. - Continue famotidine 10 mg daily for GI acid suppression Anemia of chronic disease Possibly secondary to chemotherapy or iron-deficiency. Patient with hemoglobin of 7.1 on 10/03; was given 1 unit due to planned procedure Stable Hgb 10/04 x2 at 8.9 Protein calorie malnutrition: - Moderate - Secondary to limited diet. He previously had hypophosphatemia and hypomagnesemia due to poor nutrition. Thyroid mass: PET scan showed activity in his thyroid - Rx outpatient ultrasound and follow up with evaluation by Oncology Suspected Heart failure with preserved ejection fraction-chronic: Patient reports no particular cardiac issues and never had ischemic heart disease, stents etc. He also had echocardiogram July 2025 showing preserved LVEF at 65% and grade 1 diastolic dysfunction. Must be cautious with IV fluid administration and aggressive oral fluid intake. PLAN - Cardiology visit planned for 12/14/2025 * Discharge Summary - Reny Christensen DO - 10/05/2025 1:37 PM EST Images from the original note were not included. Hospitalization Admit Date/Time: 09/29/2025 11:55 AM Admitting Attending: Shannon Murrell Discharge Date: 10/05/2025 Discharge Attending Physician: Reny Christensen DO PCP name and Address: Darius Ken MD [address] / [place] [address] Referring provider name and address: Onel Reina MD [address] [place] [address] Chief Concern, Brief History of Present Illness, and Hospital Course Mr. 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 Medically ready for discharge 10/05/2025. Acute kidney injury suspected due to AIN likely from immunotherapy Creatinine improving with steroids Nephrology consulted and pt started on steroids w/ PJP ppx (atovaquone 1500 mg daily) S/p kidney biopsy 10/04 PLAN - Continue prednisone 80 mg daily until this Sunday 10/07 (week 1) - Transition to Prednisone 60mg in week 2, 40mg in week 3, 20 mg in week 4, 10mg in week 5 and 5mg in week 6. Acute UTI with pseudomonas in U cx Initially started on empiric ceftriaxone blood culture showed Pseudomonas Patient is currently asymptomatic Carmona catheter was exchanged 10/03 by Urology PLAN - Continue to monitor patient without antibiotics - Pt will leave with carmona and f/u with uro; sees Dr. Rock outpatient on 12/01/2025 Adenocarcinoma of the esophagus/gastroesophageal junction: Previously treated with leucovorin, oxaliplatin, Taxotere, fluorouracil. Now on immunotherapy only with nivolumab and ipilimumab. PET-CT September 28 showed distal esophageal activity concerning for residual disease The patient reports that with acute kidney injury his immunotherapy is on hold He was not tolerating chemotherapy and that is also on hold PLAN - We will continue with full liquid diet and will supplement with nutrition shakes due to swallow dysfunction. - Continue famotidine 10 mg daily for GI acid suppression Anemia of chronic disease Possibly secondary to chemotherapy or iron-deficiency. Patient with hemoglobin of 7.1 on 10/03; was given 1 unit due to planned procedure Stable Hgb 10/04 x2 at 8.9 Protein calorie malnutrition: - Moderate - Secondary to limited diet. He previously had hypophosphatemia and hypomagnesemia due to poor nutrition. Thyroid mass: PET scan showed activity in his thyroid - Rx outpatient ultrasound and follow up with evaluation by Oncology Suspected Heart failure with preserved ejection fraction-chronic: Patient reports no particular cardiac issues and never had ischemic heart disease, stents etc. He also had echocardiogram July 2025 showing preserved LVEF at 65% and grade 1 diastolic dysfunction. Must be cautious with IV fluid administration and aggressive oral fluid intake. PLAN - Cardiology visit planned for 12/14/2025 Surgeries and Procedures S/p kidney biopsy on 10/04/2026, pending final results. Medication List PAUSE taking these medications loperamide 2 MG tablet Wait to take this until your doctor or other care provider tells you to start again. Commonly known as: Imodium A-D Take 1 tablet by mouth every 2 hours as needed for diarrhea. MAX 8 tablets daily Ask about: Should I take this medication? pantoprazole 40 MG EC tablet Wait to take this until your doctor or other care provider tells you to start again. Commonly known as: Protonix Take 1 tablet by mouth daily. Do not crush, chew, or split. Pt asking about refill .. atovaquone 750 MG/5ML suspension Commonly known as: Mepron Take 10 mL by mouth daily for 10 days. Start taking on: October 06, 2025 emollient lotion moisturizing lotion To be applied in affected areas. famotidine 20 MG tablet Commonly known as: Pepcid Take 1 tablet by mouth daily. finasteride 5 MG tablet Commonly known as: Proscar Take 1 tablet by mouth daily. Do not crush, chew, or split. Pt asking about refill gi cocktail Take 30 mL by mouth 4 times a day as needed (Indigestion). MELATONIN PO Take 1 tablet by mouth at night as needed. * predniSONE 20 MG tablet Commonly known as: Deltasone Take 4 tablets by mouth daily for 2 days. Start taking on: October 07, 2025 * predniSONE 20 MG tablet Commonly known as: Deltasone Take 3 tablets by mouth daily for 7 days, THEN 2 tablets daily for 7 days, THEN 1 tablet daily for 7 days, THEN 0.5 tablets daily for 7 days, THEN 0.5 tablets daily for 7 days. Start taking on: October 08, 2025 sodium bicarbonate 650 MG tablet Take 1 tablet by mouth 3 times a day for 7 days. tamsulosin 0.4 MG 24 hr capsule Commonly known as: Flomax Take 1 capsule by mouth nightly. * This list has 2 medication(s) that are the same as other medications prescribed for you. Read thedirections carefully, and ask your doctor or other care provider to review them with you. Where to Get Your Medications These medications were sent to [facility] - [place], [place] - [address] [facility] [id number] atovaquone 750 MG/5ML suspension emollient lotion moisturizing lotion gi cocktail predniSONE 20 MG tablet predniSONE 20 MG tablet sodium bicarbonate 650 MG tablet tamsulosin 0.4 MG 24 hr capsule Discharge Diagnosis Medical Problems Active and Resolved Hospital Problems Hospital Benign prostatic hyperplasia without lower urinary tract symptoms Adenocarcinoma of gastroesophageal junction Thyroid mass Dysphagia * (Principal) Obstructive nephropathy Hypomagnesemia Hypophosphatemia Protein-calorie malnutrition, moderate (CMS/HCC) Anemia, unspecified Asymptomatic bacteriuria Chronic heart failure with preserved ejection fraction (HFpEF) ATN (acute tubular necrosis) Azotemia CKD (chronic kidney disease) stage 2, GFR 60-89 ml/min Hyperphosphatemia Metabolic acidosis YOLI (acute kidney injury) Post Discharge Instructions Below is a list of your appointments for the next couple of months. Outpatient Follow-Up Future Appointments Date Time Provider Department Center 10/13/2025 8:30 AM [facility] 1 INFUSION TREATMENT [id number] 10/13/2025 1:00 PM (RAMON NAJERA FELLOW [facility] PAC 10/27/2025 11:00 AM [facility] STA[facility] 11/21/2025 2:00 PM MR 2 [facility] 12/01/2025 1:30 PM Yanely Rock, DO [facility] 12/14/2025 10:00 AM Juarez Recinos MD [facility] 01/13/2026 12:00 PM Eros Mejia MD [facility] [place] Test Results Pending At Discharge Pending Labs Order Current Status Surgical Pathology Exam In process Pertinent Physical Exam At Time of Discharge Physical Exam HENT: Head: Normocephalic. Nose: Nose normal. Mouth/Throat: Mouth: Mucous membranes are moist. Eyes: Conjunctiva/sclera: Conjunctivae normal. Pupils: Pupils are equal, round, and reactive to light. Cardiovascular: Rate and Rhythm: Normal rate and regular rhythm. Pulses: Normal pulses. Heart sounds: Normal heart sounds. Pulmonary: Effort: Pulmonary effort is normal. Breath sounds: Normal breath sounds. Abdominal: General: Abdomen is flat. Palpations: Abdomen is soft. Musculoskeletal: General: Normal range of motion. Skin: General: Skin is warm. Findings: Rash present. Comments: Erythematous rash on generalized abdomen Neurological: Mental Status: He is alert. Discharge Disposition/Condition Disposition: Home Condition: Stable (s/sx potential problems absent or manageable) I spent >30 minutes of patient care and instruction time in preparation for this discharge. * Progress Notes - Ilene Fairbanks RN - 10/05/2025 12:59 PM EST Case Management Discharge Note Justin Best 70 y.o. male CSN: [id number] Admission: 09/29/2025 11:55 AM Primary Problem: Obstructive nephropathy Primary Battalion Chief: Primary Caregiver: Self Assistance Available at Discharge: Current Outpatient/Agency/Support Group: (N/A) Availability of Care Givers (#Hours): 24 hours Family/Battalion Chief(s) Willingness Assessed to care for patient at home: Yes Family/Battalion Chief(s) Readiness Assessed to care for patient at home: Yes Housing Circumstances-Z Codes: Housing Circumstances (select all that apply): None Applicable Patient Referred to Financial or Community Resources: Financial Resources: (N/A) Community Resources: (N/A) Discharge Facility/Level of Care Needs: Discharge Facility/Level of Care Needs: 1-Home or Self Care Patient/Family Anticipated Services at Transition: Patient/Family Anticipated Services at Transition: (N/A) DME/Equipment Needed after Discharge: Equipment Currently Used at Home: none Equipment Needed After Discharge: none Readmission Within the Last 30 Days: Readmission Within the Last 30 Days: no previous admission in last 30 days Medicare Documentation: Medicare Second Notice?: Yes Date Second Notice Completed: 10/05/25 Time Second Notice Completed: 1215 Medicare Second Notice Recieved By: Patient Follow-up: Onel Reina MD [address] [place], [place] [id number] Discharge Transportation: Transportation Anticipated: family or friend will provide Transportation Home at Discharge: Family/Friend will Provide Has discharge transport been arranged?: No What day is the transport expected?: 10/05/25 Follow Up Transport: Transportation Needed to Follow up Appoinments: Family/Friend will Provide Additional Comments: POC and discharge plans were discussed with 5 treatment team during morning rounds. Per MD attending, pt is medically ready for discharge. Pt is a 70 y/o male with a pMHx of esophageal/gastroesophageal junction adenocarcinoma (previously treated with FLOT-D from 08/03/25-08/31/25, now on ipilimumab/nivolumab since 09/13/25) and prostatomegaly with chronic urinary retention requiring intermittent indwelling urinary catheterization under [facility] care. Pt is planned to be discharged home today with family. PCP is Darius Ken MD. Preferred pharmacy is [facility] [place] [phone] [[id number]] Pt has follow up with Urology on 12/01/2025. Please see PCP for any questions or concerns prior to follow up. Will continue to follow and assist with discharge. Ilene Fairbanks RN [facility] Cut Plug Packer Secure Chat Preferred [phone] * Consults - Sharifa Arias RD - 10/05/2025 12:38 PM EST Adult Nutrition Evaluation Note Justin Best 70 y.o. male CSN: [id number] Room/Bed 676/676B Nutrition evaluation type: follow-up Reason for evaluation: Hospital course: 70 y.o male with pmh significant for adenocarcinoma of the esophagus/gastroesophageal junction admitted for worsening kidney function and hydronephrosis. 10/05: Pt now s/p kidney biopsy 10/04. Past medical/ surgical history: Past Medical History[1] Surgical History[2] Social history: Additional comments: PO diet on full liquids. In ED. Essentially lives on a liquid diet and supplements his oral nutrition with Ensure/Boost 2 bottles per day. 10/05: Pt remains on full liquid diet d/t dysphagia with adenocarcinoma of esophagus/gastroesophageal junction. Four recorded intakes reveal pt eating ~ 73% of full liquid diet. Currently receiving novasource renal TID (each carton has 475 kcal and 21.6 gm pro) and Gelatein plus TID (each with 160 kcal and 20 gm pro). Vitals and Basic Assessment: BP: 135/80 Temp: 36.3 ??C (97.3 ??F) Oxygen Therapy: None (Room air) O2 Delivery Method: Nasal cannula with capnography Jose Coma Scale Score: 15 John Scale Score: 17 Most Recent BM Date: 10/03/25 GI Symptoms: None Edema: Left lower extremity, Right lower extremity Allergies: NKFA Medications: Current Scheduled Medications[3] Current Continuous Medications[4] Current PRN Medications[5] Meds were reviewed: Yes Labs: BMP Na 137 Cl 106 BUN 61 (H) Glu 108 (H) K 4.0 Co2 20 (L) Cr 5.25 (H) Ca 8.2 (L) iCa ?? Mg ??, Phos ?? Lactate ?? No results found for: CHOL , TRIG , HDL , LDLCALC No results found for: HGBA1C Elevated Phosphorus 10/04 Anthropometrics: Height: 182.9 cm (6') Weight: 88.4 kg (194 lb 14.2 oz) BMI (Calculated): 26.43 Weight Evaluation: Normal (BMI 18.5-24.9) [place] Body Weight (kg): 80.9 Percent [place] Body Weight: 103 Estimated Needs: Kcal/ K Kcal Provided: 2088 Kcal Needs Based On: Current weight Gm Protein/ Kg : 1.2 - 1.5 Protein Provided: 100 - 125 Protein Needs Based On: Current weight Metabolic Cart Study Results: Current Nutrition Intake: Diet Supplements: Boost Plus Diet Order: Adult Diet Diet Texture: Full Liquid Percent Meals Eaten (%): 73% avg x 4 recorded meals Diet Experience and Nutrition History: Diet Education Provided: Will monitor Pertinent home medications: Imodium Nutrition Focused Physical Exam: Unable to Complete Exam: Unable to access exam locations Physical exam performed on (date): Assessment of Malnutrition: Nutrition Problem: Inadequate oral intake related to esophageal cancer as evidenced by only consuming liquids. Status of Nutrition Diagnosis: Ongoing Nutrition Interventions and Recommendations: - Continue Full liquids as tolerated - Adjust to Novasource Renal TID - Gelatein Plus TID - Document intakes - May need to consider DHT/PEG for nutrition - If needed - Novasource Renal @ 50ml/hr (1100ml/day) provides 2200 kcal, 100g protein, 201g CHO, 110g fat, 0g Fiber, 792ml water, 110% RDIs vit/min - Can start at 20 ml/hr advance by 10 ml q 8 hours - Free water per team Nutrition Monitoring and Goals: - Consume 75% or greater of meals - Monitor weight, labs, and elytes Acuity Level: [address], LD [1] Past Medical History: Diagnosis Date Blood urine 2023 Cancer ([facility]/HCC) 2024 current diagnosis Esophageal cancer june 2025 Hypertension 1999 Kidney stone Skin cancer 2004 Stomach cancer ([facility]) june 2025 Urinary retention [2] Past Surgical History: Procedure Laterality Date APPENDECTOMY 2020 BACK SURGERY 2001 CHOLECYSTECTOMY 1984 COLONOSCOPY 2023 GALLBLADDER SURGERY 1998 ORTHOPEDIC SURGERY 2000 back surgery [3] atovaquone, 1,500 mg, Oral, Daily emollient, , Topical, BID famotidine, 10 mg, Oral, Daily finasteride, 5 mg, Oral, Daily [Held by provider] heparin (porcine), 5,000 Units, Subcutaneous, q8h PATRICK predniSONE, 80 mg, Oral, Daily sodium bicarbonate, 650 mg, Oral, TID sodium chloride, 10 mL, Intravenous, q12h tamsulosin, 0.4 mg, Oral, Daily with dinner [4] [5] PRN medications: gi cocktail, loperamide, ondansetron ODT OR ondansetron, Insert peripheralIV AND Saline lock IV AND sodium chloride AND sodium chloride * Progress Notes - Amol Huynh - 10/05/2025 9:30 AM EST PHYSICAL THERAPY TREATMENT PATIENT DATA Patient Name Justin Best Session Date 10/05/2025 Total Treatment Time 40 min PT Discharge Recommendations Home with assistance, Outpatient PT PT Equipment Recommendations Rollator PRECAUTIONS Weight Bearing Precautions (if applicable) ROM Restrictions (if applicable) Medical Precautions Yes Medical Precautions: Fall precautions HOME LIVING/SET-UP Lives With Spouse Home Type House (x5 rao x1 HR and wall on the other side) Home Equipment Rolling walker, shower chair, 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 Pt stated he is suppose to start outpatient PT Friday10/03/2025, subject to change PRIOR LEVEL OF FUNCTION Receives help from No assist required prior to admission ( has recently been helping with socks) Level of Mobility Ambulatory- household only (goes out to MD appts) Mobility [place] Independent gait with device (uses RW bc he gets light headed) History of Falls No ADL Performance ADL Performance: Independent PRESENTATION Oxygen Oxygen Therapy: None (Room air) Lines and Tubes Urethral Catheter Coude 20 Fr. (Active) Single Lumen Implantable Port 07/29/25 Right Chest (Active) Pre-Session Supine, Lines intact RN and pt agreeable to therapy session Post-Session Supine, Lines intact, RN notified, Call light in reach Pt positioned for comfort with all needs met and within reach. Spouse at bedside Bracing (if applicable) SUBJECTIVE PARTICIPANTS IN CARE Visitors Present Yes, Spouse Subjective Report Pt has NOT been: * Ambulating hallway distances since last PT treatment. Pt HAS been: * Ambulating in-room distances * Transferring Bed <> Chair since last PT treatment. Pt is anticipating discharge from [facility] today Disability Case Manager (if applicable) Disability Case Manager: Not Applicable OBJECTIVE & INTERVENTIONS PAIN Pt was without complaints of pain throughout the PT treatment. Prior to PT's departure: * rest was provided * pt was positioned for comfort * pillow support was provided DELIRIUM SCREENING RASS: Alert and calm Feature 3: Altered Level of Consciousness: Negative THERAPEUTIC ACTIVITY Treatment Minutes 30 BED MOBILITY Level of [place] Physical/Non- physical Assist Adaptive Equipment Utilized Rolling/ Turning Scooting/ Bridging Stand-by assist Supervision Supine to Sit Stand-by assist Set-up required, Minimal cues Sit to Supine Stand-by assist Set-up required, Minimal cues Interventions TRANSFERS Level of [place] Physical/Non- physical Assist Adaptive Equipment Utilized Sit to Stand Stand-by assist Set-up required, Minimal cues Walker, rolling Stand to sit Stand-by assist Set-up required, Minimal cues Walker, rolling Bed to Chair Toilet Transfer Shower Transfer Interventions GAIT TRAINING Interventions PT presence was necessary for: * managing lines * progressing patient ambulation distances * monitoring patient vital sign stability * decreasing patient's risk of falling while progressing pt's distances Level of [place] Distance Adaptive Equipment Utilized Gait Standby assist, Minimal verbal cues 250 ft decreased kelley Rolling walker Gait Analysis/ Training Gait Analysis: Decreased kelley and cues for posture Stairs Contact guard, Minimal verbal cues 1 flight Rails : Single No device Stair Training reciprocal steps THERAPEUTIC EXERCISE Treatment Minutes 10 In Sitting - Supported position, pt performed x10 reps of the following exercises bilaterally: * Glut Sets x2-3 sec holds * Marching * Hip Abduction-Adductions * Long Arc Quads * Ankle Pumps Verbal cuing and assistance was required for proper technique and for maximizing muscle contractibility and strength. ASSESSMENT Pt is improving, as noted by: less assistance was required for pt to complete some or all transfersand pt demonstrated improved sitting and/or standing balance during this PT treatment compared to last PT treatment. Pt has the following impairments: impaired activity tolerance, which is limiting the pt from performing independent functional mobility. PT RECOMMENDATIONS Discharge Destination Home with assistance, Outpatient PT Discharge Equipment Rollator PLAN Pt may continue to benefit from skilled PT for addressing patient's impairments and reducing patient's participation restrictions and activity limitations. PT GOALS PT GOAL DETAILS DATE ASSESSED STATUS PROGRESS PT Goal 1: Pt will complete all bed mobility tasks independently PT Goal 1 Established Date: 09/30/25 PT Goal 1 Time Frame: 2 weeks PT Goal 2: Pt will complete all ambulatory transfers w mod. independence and LRAD PT Goal 2 Established Date: 09/30/25 PT Goal 2 Time Frame: 2 weeks PT Goal 3: Pt will ambulate 500' w SBA and LRAD PT Goal 3 Established Date: 09/30/25 PT Goal 3 Time Frame: 2 weeks PT Goal 4: Pt will ascend/descen 5 stairs w handrail and CGA for safe home entry/exit PT Goal 4 Established Date: 09/30/25 PT Goal 4 Time Frame: 2 weeks Written by Amol Huynh on 10/05/25 at 1:39 PM. * Progress Notes - Celine Riggs MBBS - 10/05/2025 5:34 AM EST [facility] Progress Note Patient: Justin Best Admit Date: 09/29/2025 Reason for consult: acute kidney injury Subjective No acute events overnight. Patient states that he is doing well today. Patient denies dyspnea. Patient is tolerating his diet well. Patient denies any nausea or vomiting. Patient endorsing good urineoutput. S/p renal biopsy Objective Visit Vitals BP (!) 147/82 (BP Location: Right arm, Patient Position: Lying) Pulse 62 Temp 36.4 ??C (97.5 ??F) (Oral) Resp 18 Ht 1.829 m (6') Wt 88.4 kg (194 lb 14.2 oz) SpO2 94% BMI 26.43 kg/m?? Smoking Status Never BSA 2.12 m?? Temp: [36.4 ??C (97.5 ??F)-36.8 ??C (98.2 ??F)] 36.4 ??C (97.5 ??F) Heart Rate: [59-82] 62 Resp: [10-19] 18 BP: (107-152)/(58-91) 147/82 Problem List Principal Problem: Obstructive nephropathy Active Problems: Benign prostatic hyperplasia without lower urinary tract symptoms Adenocarcinoma of gastroesophageal junction Thyroid mass Dysphagia Hypomagnesemia Hypophosphatemia Protein-calorie malnutrition, moderate (CMS/HCC) Anemia, unspecified Asymptomatic bacteriuria Chronic heart failure with preserved ejection fraction (HFpEF) ATN (acute tubular necrosis) Azotemia CKD (chronic kidney disease) stage 2, GFR 60-89 ml/min Hyperphosphatemia Metabolic acidosis YOLI (acute kidney injury) Medications: Current Medications: Current Scheduled Medications[1] Current Continuous Medications[2] Physical Exam: General: no apparent distress, patient lying comfortably in bed Eyes: clear conjunctivae bilaterally, no lid lag HENT: Moist mucus membranes, atraumatic Neck: trachea midline, supple Respiratory: no increased work of breathing, equal chest rise CV: No peripheral edema Skin: No visible rash Musculoskeletal: No joint swelling, no cyanosis Neuro: Awake, alert, and appropriately conversant Psych: Appropriate mood and affect Laboratory: CBC: Results from last 7 days Lab Units 10/04/25 2107 10/04/25 1552 10/04/25 0549 WBC 10*3/uL 5.58 7.31 8.94 HEMOGLOBIN g/dL 8.9* 8.9* 8.3* HEMATOCRIT % 28.0* 27.8* 25.9* PLATELETS 10*3/uL 337 379* 335 CMP: Results from last 7 days Lab Units 10/04/25 0549 10/03/25 0618 10/02/25 0611 10/01/25 0334 09/30/25 0417 09/29/25 1232 SODIUM mmol/L 137 138 136 134* < > 133* POTASSIUM mmol/L 4.1 4.5 4.4 4.6 < > 4.0 CHLORIDE mmol/L 107 107 106 101 < > 99 CO2 mmol/L 19* 18* 17* 19* < > 19* BUN mg/dL 69* 70* 65* 62* < > 61* CREATININE mg/dL 6.33* 7.49* 8.64* 9.91* < > 10.03* CALCIUM mg/dL 8.3* 8.1* 8.1* 7.9* < > 8.2* BILIRUBIN TOTAL mg/dL 0.3 -- -- 0.2 -- 0.5 ALKALINE PHOSPHATASE U/L 74 -- -- 83 -- 91 ALT U/L 33 -- -- 20 -- 21 AST U/L 39 -- -- 22 -- 26 GLUCOSE mg/dL 92 115* 119* 158* < > 101* < > = values in this interval not displayed. LFT: AST, Plasma Date Value Ref Range Status 10/04/2025 39 10 - 50 U/L Final ALT, Plasma Date Value Ref Range Status 10/04/2025 33 10 - 50 U/L Final Alkaline Phosphatase, Plasma Date Value Ref Range Status 10/04/2025 74 40 - 115 U/L Final Total Bilirubin, Plasma Date Value Ref Range Status 10/04/2025 0.3 0.2 - 1.1 mg/dL Final Impression & Plan: Mr. Best is a 70-year-old man with a history of esophageal/gastroesophageal junction adenocarcinoma (previously treated with FLOT-D from 08/03/25-08/31/25, now on ipilimumab/nivolumab since 09/13/25) and prostatomegaly with chronic urinary retention requiring intermittent indwelling urinary catheterization under Urology care. His baseline serum creatinine ranges 0.9-1.1 mg/dL. # Non oliguric YOLI on CKD stage 2 Etiology: Concerning for checkpoint inhibitor toxicity - Receive 2 doses of ipilimumab/nivolumab since 09/13/25 - Low suspicion for postobstructive YOLI given that patient has indwelling Carmona's catheter. He hada monitored voiding trial in urology clinic. His catheter was removed for only a short period of time and then reinserted as he failed his voiding trial - ATN remains in differential due to progression of prerenal YOLI given recent onset of diarrhea decreased by mouth intake with deconditioning and recent C diff infection Baseline serum creatinine: 0.9-.1.1 Creatinine at the time of consult: 9.91 Electrolytes: Largely unremarkable Volume: Euvolemic Acid/Base: Mild acidosis Urine: Blood, protein, leukocyte esterase and nitrite; sample obtained from indwelling catheter; urine sodium 71 Imaging: Mild echogenic kidneys with decompressed bladder # Azotemia # Non gap metabolic acidosis # Hyperphosphatemia # Hypomagnesemia # Adenocarcinoma of the esophagus/gastroesophageal junction - Was previously treated with leucovorin, oxaliplatin, Taxotere, fluorouracil. Now on immunotherapyonly with nivolumab and ipilimumab. 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 - Patient can be discharged from renal standpoint -Close f/u in 1 week with repeat labs at OP renal clinic. It was previously discussed with the patient that the expected benefits outweigh the risks, even inthe context of his recent infections, including C. difficile. -Continue PJP prophylaxis with atovaquone 1,500 mg orally once daily -DC PPI given concern for AIN - If renal indices remain stable tomorrow, can be discharged from Nephrology standpoint with close follow-up at our clinic early next week with repeat labs Thank you for the opportunity to participate in the care of this patient. [1] atovaquone, 1,500 mg, Oral, Daily emollient, , Topical, BID famotidine, 10 mg, Oral, Daily finasteride, 5 mg, Oral, Daily [Held by provider] heparin (porcine), 5,000 Units, Subcutaneous, q8h PATRICK predniSONE, 80 mg, Oral, Daily sodium bicarbonate, 650 mg, Oral, TID sodium chloride, 10 mL, Intravenous, q12h tamsulosin, 0.4 mg, Oral, Daily with dinner [2] Cosigned by Kirk Villatoro MD at 10/05/2025 1:23 PM EST Associated attestation - Kirk Villatoro MD - 10/05/2025 1:23 PM EST I saw and evaluated the patient with the resident/fellow. I discussed the case with the resident/fellow and agree with the findings and plan as documented. * Care Plan - Odilia Su RN - 10/05/2025 2:49 AM EST Problem: Adult Inpatient Plan of Care Goal: Plan of Care Review Outcome: Ongoing, Progressing Flowsheets (Taken 10/05/2025245) Progress: improving Outcome Evaluation: Patient's urine output >30ml/hr morning labs pending Plan of Care Reviewed With: patient Goal: Patient-Specific Goal (Individualized) Outcome: Ongoing, Progressing Flowsheets (Taken 10/04/20251999) Patient/Family-Specific Goals (Include Timeframe): Patient's renal fxn labs will return to baselinebefore discharge Individualized Care Needs: abnormal renal function Anxieties, Fears or Concerns: I want to go home tomorrow Goal: Absence of Hospital-Acquired Illness or Injury Outcome: Ongoing, Progressing Intervention: Prevent Infection Flowsheets (Taken 10/05/2025245) Infection Prevention: hand hygiene promoted equipment surfaces disinfected personal protective equipment utilized rest/sleep promoted single patient room provided Goal: Optimal Comfort and Wellbeing Outcome: Ongoing, Progressing Intervention: Provide Person-Centered Care Flowsheets (Taken 10/05/2025245) Trust Relationship/Rapport: care explained questions answered questions encouraged Problem: Infection Goal: Absence of Infection Signs and Symptoms Outcome: Ongoing, Progressing Intervention: Prevent or Manage Infection Flowsheets (Taken 10/05/2025245) Infection Management: aseptic technique maintained Fever Reduction/Comfort Measures: lightweight clothing lightweight bedding Isolation Precautions: (contact D) precautions maintained other (see comments) Problem: Self-Care Deficit Goal: Improved Ability to Complete Activities of Daily Living Outcome: Ongoing, Progressing Intervention: Promote Activity and Functional [place] Flowsheets (Taken 10/05/2025245) Activity Assistance Provided: assistance, stand-by Adaptive Equipment Use: used independently Self-Care Promotion: BADL personal objects within reach independence encouraged adaptive equipment use encouraged Problem: Skin Injury Risk Increased Goal: Skin Health and Integrity Outcome: Ongoing, Progressing Intervention: Promote and Optimize Oral Intake Flowsheets (Taken 10/05/2025245) Oral Nutrition Promotion: physical activity promoted Nutrition Interventions: frequent small meals provided Problem: Acute Kidney Injury/Impairment Goal: Fluid and Electrolyte Balance Outcome: Ongoing, Progressing Intervention: Monitor and Manage Fluid and Electrolyte Balance Flowsheets (Taken 10/05/2025245) Fluid/Electrolyte Management: fluids provided Goal: Improved Oral Intake Outcome: Ongoing, Progressing Intervention: Promote and Optimize Oral Intake Flowsheets (Taken 10/05/2025245) Oral Nutrition Promotion: physical activity promoted Nutrition Interventions: frequent small meals provided Goal: Effective Renal Function Outcome: Ongoing, Progressing Intervention: Monitor and Support Renal Function Flowsheets (Taken 10/05/2025245) Stabilization Measures: legs elevated Medication Review/Management: medications reviewed Problem: Fall Injury Risk Goal: Absence of Fall and Fall-Related Injury Outcome: Ongoing, Progressing Intervention: Promote Injury-Free Environment Flowsheets (Taken 10/04/20251999) Safety Promotion/Fall Prevention: activity supervised assistive device/personal items within reach clutter-free environment maintained fall prevention program maintained lighting adjusted mobility aid in reach nonskid shoes/slippers when out of bed room organization consistent safety round/check completed toileting scheduled * Progress Notes - Reny Christensen DO - 10/04/2025 4:15 PM EST Subjective Pt seen and examined at the bedside post kidney biopsy. He has no current complaints. Feeling ok. Denies any urinary sx. Review of Systems All other systems reviewed and are negative. Objective Vitals Temp: [36.4 ??C (97.5 ??F)-36.8 ??C (98.2 ??F)] 36.5 ??C (97.7 ??F) Heart Rate: [59-82] 63 Resp: [10-19] 19 BP: (107-132)/(58-87) 132/79 Physical Exam Constitutional: Appearance: He is ill-appearing. HENT: Head: Normocephalic. Nose: Nose normal. Mouth/Throat: Mouth: Mucous membranes are moist. Eyes: Extraocular Movements: Extraocular movements intact. Conjunctiva/sclera: Conjunctivae normal. Pupils: Pupils are equal, round, and reactive to light. Cardiovascular: Rate and Rhythm: Normal rate and regular rhythm. Pulses: Normal pulses. Heart sounds: Normal heart sounds. Pulmonary: Effort: Pulmonary effort is normal. Breath sounds: Normal breath sounds. Abdominal: General: Abdomen is flat. Bowel sounds are normal. Palpations: Abdomen is soft. Musculoskeletal: General: Normal range of motion. Skin: General: Skin is warm. Capillary Refill: Capillary refill takes 2 to 3 seconds. Neurological: General: No focal deficit present. Mental Status: He is alert. Mental status is at baseline. Psychiatric: Mood and Affect: Mood normal. Labs in last 18 hours CBC WBC 8.94 Hb 8.3 (L) Plt 335 Hct 25.9 (L) ANC 6.09 INR ??, PTT ??, Anti-Xa ?? BMP Na 137 Cl 107 BUN 69 (H) Glu 92 K 4.1 Co2 19 (L) Cr 6.33 (H) Ca 8.3 (L) iCa ?? Mg 1.9, Phos 5.1 (H) Lactate ?? LFT AST 39 AlkPhos 74 T Prot 5.3 (L) ALK 33 Bili 0.3 Alb ?? D.Bili ?? Assessment & Plan Obstructive nephropathy Adenocarcinoma of gastroesophageal junction Benign prostatic hyperplasia without lower urinary tract symptoms Thyroid mass Protein-calorie malnutrition, moderate (CMS/HCC) Anemia, unspecified Asymptomatic bacteriuria Chronic heart failure with preserved ejection fraction (HFpEF) ATN (acute tubular necrosis) Azotemia CKD (chronic kidney disease) stage 2, GFR 60-89 ml/min Hyperphosphatemia Metabolic acidosis YOLI (acute kidney injury) Mr. 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 Acute kidney injury suspected due to AIN likely from immunotherapy Creatinine improving with steroids Nephrology consulted and pt started on steroids w/ PJP ppx (atovaquone 1500 mg daily) S/p kidney biopsy 10/04 PLAN - CTM renal function Acute UTI with pseudomonas in U cx Initially started on empiric ceftriaxone blood culture showed Pseudomonas Patient is currently asymptomatic Carmona catheter was exchanged 10/03 by Urology PLAN - Continue to monitor patient without antibiotics - Pt will leave with carmona and f/u with uro; sees Dr. Rock outpatient Adenocarcinoma of the esophagus/gastroesophageal junction: Previously treated with leucovorin, oxaliplatin, Taxotere, fluorouracil. Now on immunotherapy only with nivolumab and ipilimumab. PET-CT September 28 showed distal esophageal activity concerning for residual disease The patient reports that with acute kidney injury his immunotherapy is on hold He was not tolerating chemotherapy and that is also on hold PLAN - May need to consult with Oncology if he has prolonged hospitalization. - We will continue with full liquid diet and will supplement with nutrition shakes due to swallow dysfunction. - Continue famotidine 10 mg daily for GI acid suppression Anemia of chronic disease Possibly secondary to chemotherapy or iron-deficiency. Patient with hemoglobin of 7.1 on 10/03; was given 1 unit due to planned procedure PLAN - Recheck CBC and transfuse for hemoglobin below 7 Q6hrs for 12 hours and AM CBC - If stable, medically ready for dishcarge Protein calorie malnutrition: - Moderate Secondary to limited diet. He previously had hypophosphatemia and hypomagnesemia due to poor nutrition. I discussed advancing his nutrition supplementation from 2 Ensure shakes per day up to 6 Ensure shakes per day. - We will continue to monitor his electrolytes We must be cautious with electrolyte replacement in the setting of his kidney dysfunction. Thyroid mass: PET scan showed activity in his thyroid We will need outpatient ultrasound and follow up with evaluation by Oncology Suspected Heart failure with preserved ejection fraction-chronic: Patient reports no particular cardiac issues and never had ischemic heart disease, stents etc. He also had echocardiogram July 2025 showing preserved LVEF at 65% and grade 1 diastolic dysfunction. Must be cautious with IV fluid administration and aggressive oral fluid intake. PLAN - Continue to monitor #Diet: full liquid #VTE Prophylaxis: SCDs #Disposition: home #Code Status: FULL Reny Christensen DO Hospital Medicine Secure Chat Preferred Medically Ready for Discharge:Anticipated Tomorrow * Progress Notes - Jose Wong - 10/04/2025 2:27 PM EST OCCUPATIONAL THERAPY TREATMENT PATIENT DATA Patient Name Justin Best Session Date 10/04/2025 Total Treatment Time 11 OT Discharge Recommendations Home with assistance, Outpatient PT Equipment Recommendations Rollator PRECAUTIONS Mobility Guidelines Mobility Protocol: General - Mobility Guidelines Extremity Precautions: No Extremity Precautions Other mobility precautions: No other precautions required Medical Precautions Medical Precautions: Fall precautions PRESENTATION Oxygen Room Air Telemetry Yes Lines and Tubes Urethral Catheter Coude 20 Fr. (Active) Single Lumen Implantable Port 07/29/25 Right Chest (Active) Pre-Session Supine, Lines intact RN agreeable to OT session. Spouse & sister present at start session. Post-Session Supine, Lines intact, RN notified, Call light in reach All needs met upon close of session. Spouse & sister present at close of session. Bracing (if applicable) SUBJECTIVE PARTICIPANTS IN CARE Subjective Per RN, pt on bedrest restrictions until 15:25 today following biopsy Visitors Present Spouse, Other (Specify) (Sister) Disability Case Manager (if applicable) OBJECTIVE PAIN No c/o pain DELIRIUM SCREENING RASS: Alert and calm Confusion Assessment Method-ICU (CAM-ICU/PCAM-ICU) Feature 3: Altered Level of Consciousness: Negative COGNITION SCREENING Overall Cognitive Status Within Functional Limits Arousal/Alertness Appropriate responses to stimuli Mood/Behavior Alert Orientation Oriented X4 Command Following Single Step Commands: Consistently Multi-Step Commands: Consistently Method of Communication Verbal Additional Observations INTERVENTIONS Therapeutic Exercise (11 minutes) Pt currently on bedrest restrictions following biopsy earlier today. HEP created and issued to patient to promote exercise later in the day after bedrest restriction has been lifted. Educated pt regarding exercises and obtaining video references via QR code on handout if needed. Pt verbalized understanding. Will follow up in future session to ensure no issues with HEP. HEP as follows: Access Code: [email or web address] URL: [email or web address] Date: 10/04/2025 Prepared by: [facility] Exercises - Seated Shoulder Flexion Full Range - 3 x daily - 7 x weekly - 3 sets - 10 reps - Seated Shoulder Abduction with Bent Elbow - 3 x daily - 7 x weekly - 3 sets - 10 reps - Seated Boxing Jabs - 3 x daily - 7 x weekly - 3 sets - 10 reps - Seated Shoulder Horizontal Abduction - Thumbs Up - 3 x daily - 7 x weekly - 3 sets - 10 reps - Seated Shoulder Shrugs - 3 x daily - 7 x weekly- 3 sets - 10 reps - Seated Scapular Retraction - 3 x daily - 7 x weekly - 3 sets - 10 reps ASSESSMENT Pt limited in session this date due to bedrest restrictions following biopsy earlier today. HEP created to facilitate increased activity later this evening after bedrest restrictions have been lifted. Pt receptive to education and will initiate exercises later today. Continue to follow for OT POC to progress ADLs and mobility toward baseline function as able. OT RECOMMENDATIONS Discharge Destination Home with assistance, Outpatient PT Discharge Equipment Rollator PLAN Progress OT POC as tolerated OT GOALS OT GOAL DETAILS Goal Established Date Time Frame Goal Status OT Goal 1: Pt will tolerate standing at sink >10 to complete grooming task with Mod I with no s/s of SOA 09/30/25 2 weeks OT Goal 2: Pt will verbalized 4/4 energy conservation strategies with mod I in 2/2 sessions 09/30/25 2 weeks OT Goal 3: Pt will completed HEP for UB strengthening with mod I in 2/2 sessions 09/30/25 2 weeks Written by Jose Wong on 10/04/25 at 2:48 PM. * Progress Notes - Celine Riggs MBBS - 10/04/2025 1:23 PM EST [facility] Progress Note Patient: Justin Best Admit Date: 09/29/2025 Reason for consult: acute kidney injury Subjective No acute events overnight. Patient states that he is doing well today. Patient denies dyspnea. Patient is tolerating his diet well. Patient denies any nausea or vomiting. Patient endorsing good urineoutput. Plan for renal biopsy today Objective Visit Vitals BP 119/69 Pulse 65 Temp 36.4 ??C (97.5 ??F) Resp 19 Ht 1.829 m (6') Wt 88.4 kg (194 lb 14.2 oz) SpO2 94% BMI 26.43 kg/m?? Smoking Status Never BSA 2.12 m?? Temp: [36.4 ??C (97.5 ??F)-36.8 ??C (98.2 ??F)] 36.4 ??C (97.5 ??F) Heart Rate: [59-82] 65 Resp: [10-19] 19 BP: (107-132)/(58-87) 119/69 Problem List Principal Problem: Obstructive nephropathy Active Problems: Benign prostatic hyperplasia without lower urinary tract symptoms Adenocarcinoma of gastroesophageal junction Thyroid mass Dysphagia Hypomagnesemia Hypophosphatemia Protein-calorie malnutrition, moderate (CMS/HCC) Anemia, unspecified Asymptomatic bacteriuria Chronic heart failure with preserved ejection fraction (HFpEF) ATN (acute tubular necrosis) Azotemia CKD (chronic kidney disease) stage 2, GFR 60-89 ml/min Hyperphosphatemia Metabolic acidosis YOLI (acute kidney injury) Medications: Current Medications: Current Scheduled Medications[1] Current Continuous Medications[2] Physical Exam: General: no apparent distress, patient lying comfortably in bed Eyes: clear conjunctivae bilaterally, no lid lag HENT: Moist mucus membranes, atraumatic Neck: trachea midline, supple Respiratory: no increased work of breathing, equal chest rise CV: No peripheral edema Skin: No visible rash Musculoskeletal: No joint swelling, no cyanosis Neuro: Awake, alert, and appropriately conversant Psych: Appropriate mood and affect Laboratory: CBC: Results from last 7 days Lab Units 10/04/25 0549 10/03/25 0618 10/02/25 0611 WBC 10*3/uL 8.94 8.53 9.85 HEMOGLOBIN g/dL 8.3* 7.1* 7.9* HEMATOCRIT % 25.9* 22.6* 24.8* PLATELETS 10*3/uL 335 334 366 CMP: Results from last 7 days Lab Units 10/04/25 0549 10/03/25 0618 10/02/25 0611 10/01/25 0334 09/30/25 0417 09/29/25 1232 SODIUM mmol/L 137 138 136 134* < > 133* POTASSIUM mmol/L 4.1 4.5 4.4 4.6 < > 4.0 CHLORIDE mmol/L 107 107 106 101 < > 99 CO2 mmol/L 19* 18* 17* 19* < > 19* BUN mg/dL 69* 70* 65* 62* < > 61* CREATININE mg/dL 6.33* 7.49* 8.64* 9.91* < > 10.03* CALCIUM mg/dL 8.3* 8.1* 8.1* 7.9* < > 8.2* BILIRUBIN TOTAL mg/dL 0.3 -- -- 0.2 -- 0.5 ALKALINE PHOSPHATASE U/L 74 -- -- 83 -- 91 ALT U/L 33 -- -- 20 -- 21 AST U/L 39 -- -- 22 -- 26 GLUCOSE mg/dL 92 115* 119* 158* < > 101* < > = values in this interval not displayed. LFT: AST, Plasma Date Value Ref Range Status 10/04/2025 39 10 - 50 U/L Final ALT, Plasma Date Value Ref Range Status 10/04/2025 33 10 - 50 U/L Final Alkaline Phosphatase, Plasma Date Value Ref Range Status 10/04/2025 74 40 - 115 U/L Final Total Bilirubin, Plasma Date Value Ref Range Status 10/04/2025 0.3 0.2 - 1.1 mg/dL Final Impression & Plan: Mr. Best is a 70-year-old man with a history of esophageal/gastroesophageal junction adenocarcinoma (previously treated with FLOT-D from 08/03/25-08/31/25, now on ipilimumab/nivolumab since 09/13/25) and prostatomegaly with chronic urinary retention requiring intermittent indwelling urinary catheterization under Urology care. His baseline serum creatinine ranges 0.9-1.1 mg/dL. # Non oliguric YOLI on CKD stage 2 Etiology: Concerning for checkpoint inhibitor toxicity - Receive 2 doses of ipilimumab/nivolumab since 09/13/25 - Low suspicion for postobstructive YOLI given that patient has indwelling Carmona's catheter. He had a monitored voiding trial in urology clinic. His catheter was removed for only a short period of time and then reinserted as he failed his voiding trial - ATN remains in differential due to progression of prerenal YOLI given recent onset of diarrhea decreased by mouth intake with deconditioning and recent C diff infection Baseline serum creatinine: 0.9-.1.1 Creatinine at the time of consult: 9.91 Electrolytes: Largely unremarkable Volume: Euvolemic Acid/Base: Mild acidosis Urine: Blood, protein, leukocyte esterase and nitrite; sample obtained from indwelling catheter; urine sodium 71 Imaging: Mild echogenic kidneys with decompressed bladder # Azotemia # Non gap metabolic acidosis # Hyperphosphatemia # Hypomagnesemia # Adenocarcinoma of the esophagus/gastroesophageal junction - Was previously treated with leucovorin, oxaliplatin, Taxotere, fluorouracil. Now on immunotherapyonly with nivolumab and ipilimumab. 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 . It was previously discussed with the patient that the expected benefits outweigh the risks, even in the context of his recent infections, including C. difficile. -Continue PJP prophylaxis with atovaquone 1,500 mg orally once daily -DC PPI given concern for AIN - If renal indices remain stable tomorrow, can be discharged from Nephrology standpoint with close follow-up at our clinic early next week with repeat labs Thank you for the opportunity to participate in the care of this patient. [1] atovaquone, 1,500 mg, Oral, Daily emollient, , Topical, BID famotidine, 10 mg, Oral, Daily finasteride, 5 mg, Oral, Daily [Held by provider] heparin (porcine), 5,000 Units, Subcutaneous, q8h PATRICK predniSONE, 80 mg, Oral, Daily sodium bicarbonate, 650 mg, Oral, TID sodium chloride, 10 mL, Intravenous, q12h tamsulosin, 0.4 mg, Oral, Daily with dinner [2] Cosigned by Kirk Villatoro MD at 10/05/2025 11:18 AM EST Associated attestation - Kirk Villatoro MD - 10/05/2025 11:18 AM EST I saw and evaluated the patient with the resident/fellow. I discussed the case with the resident/fellow and agree with the findings and plan as documented. * Care Plan - Loni Barth RN - 10/04/2025 11:24 AM EST Problem: Adult Inpatient Plan of Care Goal: Plan of Care Review Outcome: Ongoing, Progressing Flowsheets (Taken 10/04/20251114) Progress: improving Outcome Evaluation: pt back from IR, procedure went well, Pt remained in lying position until 1525 Plan of Care Reviewed With: patient Goal: Patient-Specific Goal (Individualized) Outcome: Ongoing, Progressing Flowsheets (Taken 10/04/20251114) Patient/Family-Specific Goals (Include Timeframe): Renal function tests will return to baseline before discharge Individualized Care Needs: abnormal renal function Anxieties, Fears or Concerns: none stated Goal: Absence of Hospital-Acquired Illness or Injury Outcome: Ongoing, Progressing Intervention: Identify and Manage Fall Risk Flowsheets (Taken 10/04/20251114) Safety Promotion/Fall Prevention: activity supervised assistive device/personal items within reach clutter-free environment maintained fall prevention program maintained lighting adjusted mobility aid in reach nonskid shoes/slippers when out of bed room organization consistent safety round/check completed toileting scheduled Intervention: Prevent Skin Injury Flowsheets (Taken 10/04/20251114) Body Position: supine Skin Protection: incontinence pads utilized Intervention: Prevent and Manage VTE (Venous Thromboembolism) Risk Flowsheets (Taken 10/04/2025 111) VTE Prevention/Management: medication Intervention: Prevent Infection Flowsheets (Taken 10/04/20251114) Infection Prevention: equipment surfaces disinfected hand hygiene promoted rest/sleep promoted single patient room provided personal protective equipment utilized Goal: Optimal Comfort and Wellbeing Outcome: Ongoing, Progressing Intervention: Monitor Pain and Promote Comfort Flowsheets (Taken 10/04/20251114) Pain Management Interventions: care clustered emotional support rest Intervention: Provide Person-Centered Care Flowsheets (Taken 10/04/20251114) Trust Relationship/Rapport: care explained choices provided emotional support provided empathic listening provided questions answered questions encouraged reassurance provided thoughts/feelings acknowledged Problem: Infection Goal: Absence of Infection Signs and Symptoms Outcome: Ongoing, Progressing Intervention: Prevent or Manage Infection Flowsheets (Taken 10/04/2025 111) Infection Management: aseptic technique maintained Fever Reduction/Comfort Measures: lightweight bedding lightweight clothing Isolation Precautions: precautions maintained Problem: Self-Care Deficit Goal: Improved Ability to Complete Activities of Daily Living Outcome: Ongoing, Progressing Intervention: Promote Activity and Functional [place] Flowsheets (Taken 10/04/2025 111) Activity Assistance Provided: independent assistance, stand-by Adaptive Equipment Use: used independently Self-Care Promotion: independence encouraged Problem: Skin Injury Risk Increased Goal: Skin Health and Integrity Outcome: Ongoing, Progressing Intervention: Optimize Skin Protection Flowsheets (Taken 10/04/20251114) Activity Management: activity adjusted per tolerance Pressure Reduction Techniques: frequent weight shift encouraged Pressure Reduction Devices: positioning supports utilized Skin Protection: incontinence pads utilized Head of Bed (HOB) Positioning: HOB at 30 degrees Intervention: Promote and Optimize Oral Intake Flowsheets (Taken 10/04/2025 111) Oral Nutrition Promotion: physical activity promoted Nutrition Interventions: diet adjusted Problem: Acute Kidney Injury/Impairment Goal: Fluid and Electrolyte Balance Outcome: Ongoing, Progressing Intervention: Monitor and Manage Fluid and Electrolyte Balance Flowsheets (Taken 10/04/20251114) Fluid/Electrolyte Management: fluids restricted intravenous fluids adjusted Goal: Improved Oral Intake Outcome: Ongoing, Progressing Intervention: Promote and Optimize Oral Intake Flowsheets (Taken 10/04/2025 111) Oral Nutrition Promotion: physical activity promoted Nutrition Interventions: diet adjusted Goal: Effective Renal Function Outcome: Ongoing, Progressing Intervention: Monitor and Support Renal Function Flowsheets (Taken 10/04/2025 111) Stabilization Measures: legs elevated Medication Review/Management: medications reviewed Problem: Fall Injury Risk Goal: Absence of Fall and Fall-Related Injury Outcome: Ongoing, Progressing Intervention: Identify and Manage Contributors Flowsheets (Taken 10/04/20251114) Medication Review/Management: medications reviewed Self-Care Promotion: independence encouraged Intervention: Promote Injury-Free Environment Flowsheets (Taken 10/04/2025 111) Safety Promotion/Fall Prevention: activity supervised assistive device/personal items within reach clutter-free environment maintained fall prevention program maintained lighting adjusted mobility aid in reach nonskid shoes/slippers when out of bed room organization consistent safety round/check completed toileting scheduled * Significant Event - Cristel Page MD - 10/04/2025 9:26 AM EST Hold heparin for 48 hours post Bx Monitor for hematuria H&H every 6 hours for 12 hours and if stable can be repeated in am If Hemodynamically unstable, STAT CTA and consult VIR * Post-Procedure Note - Cristel Page MD - 10/04/2025 9:15 AM EST Vascular and Interventional Radiology Brief Postprocedure Note Attending: Dr. Page Pre-operative Diagnosis: YOLI Post-operative Diagnosis: s/p left kidney biopsy Type of Anesthesia: Conscious Sedation Description of Findings: Left kidney identified Technical/Surgical Procedures Used: US Specimen Obtained: Yes, 2 cores Complications: None Estimated Blood Loss: minimal Procedure Events Event Event Time Sedation Start 10/04/2025 9:07 AM Sedation Stop 10/04/2025 9:13 AM See detailed result report with images in PACS. The patient tolerated the procedure well without incident or complication and is in stable condition. * Pre-Procedure Note - Cristel Page MD - 10/04/2025 8:28 AM EST Images from the original note were not included. INTERVENTIONAL RADIOLOGY SEDATION PRE-PROCEDURAL ASSESSMENT AND PLAN OF CARE Indication for procedure: The primary encounter diagnosis was Adenocarcinoma of gastroesophageal junction. Diagnoses of YOLI (acute kidney injury) and Obstructive nephropathy were also pertinent to this visit. Planned Procedure: Biopsy Relevant past medical history: None Previous problems with surgery, anesthesia or sedation: No Previous family history or problems with anesthesia or sedation: No History of tobacco use, alcohol use, or substance abuse: Tobacco Use History[1], Social History Substance and Sexual Activity Alcohol Use Not Currently Alcohol/week: 1.0 standard drink of alcohol Types: 1 Cans of beer per week , Social History Substance and Sexual Activity Drug Use Never Height and Weight: Visit Vitals BP 128/76 Pulse 59 Temp 36.8 ??C (98.2 ??F) (Axillary) Ht 1.829 m (6') Wt 88.4 kg (194 lb 14.2 oz) SpO2 93% BMI 26.43 kg/m?? Allergies to medication: Oxycodone and Penicillins Current medications: Current Medications[2] Relevant Labs: Lab Results Component Value Date CREATININE 6.33 (H) 10/04/2025 EGFR 8.8 10/04/2025 INR 1.1 07/21/2025 Planned Sedation/Anesthesia: Moderate Airway assessment: normal Mallampati Score: III (soft and hard palate and base of uvula visible) ASA: ASA 3 - Patient with moderate systemic disease with functional limitations Directed physical examination: Vitals: 10/04/25 0800 BP: 128/76 Pulse: 59 Resp: 14 Temp: 36.8 ??C (98.2 ??F) SpO2: 93% GENERAL: Awake, alert, NAD HEENT: NCAT NECK: No appreciable JVD CARDIAC: Regular rate, regular rhythm, normal S1/S2, no m/r/g, 2+ radial pulses bilaterally PULM: CTAB without increased work of breathing ABD: Soft, NT, ND EXT: Warm and well perfused, no LE edema SKIN: No rashes or lesions NEURO: A&Ox4, moving all extremities spontaneously Benefits, risks and alternatives of procedure and planned sedation have been discussed with the patient and/or their entry level marketing representative. All questions answered and they agree to proceed. [1] Social History Tobacco Use Smoking Status Never Passive exposure: Never Smokeless Tobacco Never [2] Current Facility-Administered Medications Medication Dose Route Frequency Provider Last Rate Last Admin atovaquone (Mepron) suspension 1,500 mg 1,500 mg Oral Daily Sue Malcolm MD 1,500 mg at 10/03/25 0843 emollient (Thera-Derm, Eucern) moisturizing lotion Topical BID Sue Malcolm MD Given at 10/03/25 2100 famotidine (Pepcid) tablet 10 mg 10 mg Oral Daily Sue Malcolm MD 10 mg at 10/03/25 0843 finasteride (Proscar) tablet 5 mg 5 mg Oral Daily Shannon Murrell MD 5 mg at 10/03/25 0842 gi cocktail oral solution 30 mL 30 mL Oral 4x daily PRN Sue Malcolm MD [Held by provider] heparin (porcine) injection 5,000 Units 5,000 Units Subcutaneous q8h PATRICK Sue Malcolm MD 5,000 Units at 10/03/252105 loperamide (Imodium A-D) tablet 2 mg 2 mg Oral 4x daily PRN Shannon Murrell MD mupirocin (Bactroban) 2 % ointment 1 Application 1 Application Each Nostril BID Shannon Murrell MD 1 Application at 10/03/252105 ondansetron ODT (Zofran-ODT) disintegrating tablet 4 mg 4 mg Oral q6h PRN Shannon Murrell MD 4 mgat 10/02/25 1735 Or ondansetron (Zofran) injection 4 mg 4 mg Intravenous q6h PRN Shannon Murrell MD 4 mg at 10/01/252134 predniSONE (Deltasone) tablet 80 mg 80 mg Oral Daily Sue Malcolm MD 80 mg at 10/03/25 0842 sodium bicarbonate tablet 650 mg 650 mg Oral TID Shannon Murrell MD 650 mg at 10/03/252105 sodium chloride 0.9 % flush 10 mL 10 mL Intravenous q12h Shannon Burris MD 10 mL at 10/03/252105 And sodium chloride 0.9 % flush 10 mL 10 mL Intravenous PRN Shannon Burris MD tamsulosin (Flomax) 24 hr capsule 0.4 mg 0.4 mg Oral Daily with dinner Shannon Murrell MD 0.4 mg at 10/03/25 184 * Interval H&P Note - Cristel Page MD - 10/04/2025 8:28 AM EST H&P reviewed. The patient was examined and there are no changes to the H&P and the surgicalsite was marked. Source Note - Celine Riggs MBBS - 09/30/2025 11:01 AM EST [facility] Consult Note Patient: Justin Best Admit Date: 09/29/2025 Date of Consult: 09/30/2025 Time of Consult: 11:01 AM Requesting Attending: Shannon Murrell MD Reason for Consult: YOLI HPI: 70-year-old man with a history of esophageal/gastroesophageal junction adenocarcinoma (previously treated with FLOT-D from 08/03/25-08/31/25, now on ipilimumab/nivolumab since 09/13/25) and prostatomegaly with chronic urinary retention requiring intermittent indwelling urinary catheterization under ology care. His baseline serum creatinine ranges 0.9-1.1 mg/dL. He recently underwent a PET/CT, reviewed by Oncology, and subsequent routine laboratory monitoring revealed a severe acute kidney injury, with a peak creatinine of 10 mg/dL. Around the same time, Urology attempted a voiding trial with removal of his Carmona catheter; however, he was found to have significant post-void residual and the indwelling urinary catheter was reinserted. He was previously hospitalized from 08/26-09/12/25 for C. difficile infection, during which he completed fidaxomicin (last dose 09/07/25) and was transitioned per Infectious Disease recommendations tooral vancomycin beginning 09/07/25 for a planned course through 09/20/25. Stool assays were positive for C. difficile toxin and DNA. He currently presents with elevated creatinine of 10. Nephrology has been consulted for further evaluation and management of YOLI ROS: ROS was obtained in 14 points [...] on file Tobacco Use Smoking status: Never Passive exposure: Never Smokeless tobacco: Never Vaping Use Vaping [...] Connections: Unknown (08/19/2023) Received from [facility] Help with [...] Continuous Medications[8] Physical Exam: Visit Vitals BP 120/67 Pulse 95 Temp 36.8 ??C (98.3 ??F) Resp 20 Ht 1.829 m (6') Wt 83.5 kg (184 lb) SpO2 98% BMI 24.95 kg/m?? Smoking Status Never BSA 2.06 m?? General: Alert, no acute distress, conversant, well-nourished HEENT: No temporal wasting, EOMI, no scleral icterus, wearing glasses Neck: Supple, normal range of motion Cardiovascular: Normal S1-S2, regular rhythm, normal rate, no rub, no gallop Pulmonary: Clear to auscultation bilaterally, no wheezes, rales or rhonchi, on room air. Good chestexcursion Gastrointestinal: Abdomen soft, nontender, nondistended Genitourinary: No Carmona catheter Musculoskeletal: Good muscle tone, good range of motion, 3+ bilateral lower extremity edema Neuro: Alert, oriented, no focal neurologic deficits, affect is calm, thoughts are fluent Derm: Skin is clean, dry, intact, no wounds or lesions Laboratory: CBC: Results from last 7 days Lab Units 09/30/25 0417 09/29/25 1232 09/29/25 0916 WBC 10*3/uL 8.96 8.47 9.73 HEMOGLOBIN g/dL 6.6* 7.6* 7.5* HEMATOCRIT % 20.2* 23.4* 23.1* PLATELETS 10*3/uL 376* 442* 463* CMP: Results from last 7 days Lab Units 09/30/25 0417 09/29/25 1232 09/29/25 0916 SODIUM mmol/L 135* 133* 134* POTASSIUM mmol/L 4.2 4.0 4.4 CHLORIDE mmol/L 102 99 99 CO2 mmol/L 20* 19* 21* BUN mg/dL 62* 61* 60* CREATININE mg/dL 9.91* 10.03* 9.77* CALCIUM mg/dL 7.8* 8.2* 8.1* BILIRUBIN TOTAL mg/dL -- 0.5 0.4 ALKALINE PHOSPHATASE U/L -- 91 90 ALT U/L -- 21 21 AST U/L -- 26 26 GLUCOSE mg/dL 107* 101* 98 Impression & Plan: Assessment: # Non oliguric YOLI on CKD stage 2 Etiology: Concerning for checkpoint inhibitor toxicity - Receive 2 doses of ipilimumab/nivolumab since 09/13/25 - Low suspicion for postobstructive YOLI given that patient has indwelling Carmona's catheter. He had a monitored voiding trial in urology clinic. His catheter was removed for only a short period of time and then reinserted as he failed his voiding trial - ATN remains in differential due to progression of prerenal YOLI given recent onset of diarrhea decreased by mouth intake with deconditioning and recent C diff infection Baseline serum creatinine: 0.9-.1.1 Creatinine at the time of consult: 9.91 Electrolytes: Largely unremarkable Volume: Euvolemic Acid/Base: Mild acidosis Urine: Blood, protein, leukocyte esterase and nitrite; sample obtained from indwelling catheter; urine sodium 71 Imaging: Mild echogenic kidneys with decompressed bladder # Azotemia # Non gap metabolic acidosis # Hyperphosphatemia # Hypomagnesemia # Adenocarcinoma of the esophagus/gastroesophageal junction - Was previously treated with leucovorin, oxaliplatin, Taxotere, fluorouracil. Now on immunotherapyonly with nivolumab and ipilimumab. 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 -Recommend initiating prednisone 80 mg daily starting today. Discussed with the patient that the expected benefits outweigh the risks, even in the context of his recent infections, including C. difficile. -Agree with blood transfusion and continuation of IV antibiotics for treatment of UTI. -Tentative plan for renal biopsy on Friday, 10/04, to obtain a definitive diagnosis. The patient has been consented and understands that, although this is a higher-risk procedure, the potential benefits outweigh the risks. -Recommend PCP prophylaxis with atovaquone 1,500 mg orally once daily -DC PPI given concern for AIN Thank you for involving us in the care of this patient. Please don???t hesitate to reach out via [employer] Secure Chat with any questions or concerns. Celine Riggs MD Nephrology/Critical Care Medicine Fellow PGY 4 ^This note was generated using medical dictation software. Please excuse any errors in syntax or improper insertion of similarly-sounding words or phrases. If there are any areas of the note that do not make sense, please contact me directly for clarification. [1] Past Medical History: Diagnosis Date Blood urine 2023 Cancer (CMS/HCC) 2024 current diagnosis Esophageal cancer june 2025 Hypertension 1999 Kidney stone Skin cancer 2004 Stomach cancer (CMS/HCC) june 2025 Urinary retention [2] Patient Active Problem List Diagnosis Stage 3a chronic kidney disease (CMS/HCC) Nephrolithiasis Essential hypertension Benign prostatic hyperplasia without lower urinary tract symptoms Adenocarcinoma of gastroesophageal junction Epigastric pain Thyroid mass Sepsis (CMS/HCC) Neutropenic fever (CMS/HCC) Dysphagia Upper respiratory disease Obstructive nephropathy Hypomagnesemia Hypophosphatemia Protein-calorie malnutrition, moderate (CMS/HCC) Anemia, unspecified Asymptomatic bacteriuria Chronic heart failure with preserved ejection fraction (HFpEF) [3] Past Surgical History: Procedure Laterality Date APPENDECTOMY 2020 BACK SURGERY 2001 CHOLECYSTECTOMY 1985 COLONOSCOPY 2023 GALLBLADDER SURGERY 1998 ORTHOPEDIC SURGERY 2000 back surgery [4] Family History Problem Relation Name Age of Onset Cancer Father Heart failure Mother 80 - 99 [5] Allergies Allergen Reactions Oxycodone Hallucinations Penicillins Unknown - Patient states they do not know rxn details Childhood allergy, thinks it was maybe a rash, but isn't sure [6] Current Facility-Administered Medications: cefTRIAXone (Rocephin) 2 g in sodium chloride 0.9% 100 mL IVPB (vial adapter required), 2 g, Intravenous, q24h, Shannon Murrell MD finasteride (Proscar) tablet 5 mg, 5 mg, Oral, Daily, Shannon Murrell MD, 5 mg at 09/30/25 0953 heparin (porcine) injection 5,000 Units, 5,000 Units, Subcutaneous, q8h PATRICK, Sue Malcolm MD loperamide (Imodium A-D) tablet 2 mg, 2 mg, Oral, 4x daily PRN, Shannon Murrell MD magnesium sulfate IVPB 4 g, 4 g, Intravenous, Once, Sue Malcolm MD mupirocin (Bactroban) 2 % ointment 1 Application, 1 Application, Each Nostril, BID, Shannon Murrell MD, 1 Application at 09/30/25 0954 ondansetron ODT (Zofran-ODT) disintegrating tablet 4 mg, 4 mg, Oral, q6h PRN OR ondansetron (Zofran) injection 4 mg, 4 mg, Intravenous, q6h PRN, Shannon Murrell MD, 4 mg at 09/29/25 1632 pantoprazole (Protonix) EC tablet 40 mg, 40 mg, Oral, Daily, Shannon Murrell MD, 40 mg at 09/30/25 0953 sodium bicarbonate tablet 650 mg, 650 mg, Oral, TID, Shannon Murrell MD, 650 mg at 09/30/25 0954 Insert peripheral IV, , , Once AND Saline lock IV, , , Once AND sodium chloride 0.9 % flush10 mL, 10 mL, Intravenous, q12h, 10 mL at 09/30/25 0409 AND sodium chloride 0.9 % flush 10 mL, 10 mL, Intravenous, PRN, Shannon Murrell MD sodium chloride 0.9 % infusion, 75 mL/hr, Intravenous, Continuous, Shannon Murrell MD, Last Rate:75 mL/hr at 09/29/251817, 75 mL/hr at 09/29/251817 sodium chloride 0.9 % infusion, 125 mL/hr, Intravenous, Continuous, Sue Malcolm MD tamsulosin (Flomax) 24 hr capsule 0.4 mg, 0.4 mg, Oral, Daily with dinner, Shannon Murrell MD, 0.4 mg at 09/29/251816 Current Outpatient Medications: famotidine (Pepcid) 20 MG tablet, Take 1 tablet by mouth daily., Disp: , Rfl: finasteride (Proscar) 5 MG tablet, Take 1 tablet by mouth daily. Do not crush, chew, or split. Pt asking about refill, Disp: 30 tablet, Rfl: 3 pantoprazole (Protonix) 40 MG EC tablet, Take 1 tablet by mouth daily. Do not crush, chew, or split. Pt asking about refill, Disp: 30 tablet, Rfl: 3 [7] cefTRIAXone, 2 g, Intravenous, q24h finasteride, 5 mg, Oral, Daily heparin (porcine), 5,000 Units, Subcutaneous, q8h PATRICK magnesium sulfate, 4 g, Intravenous, Once mupirocin, 1 Application, Each Nostril, BID pantoprazole, 40 mg, Oral, Daily sodium bicarbonate, 650 mg, Oral, TID sodium chloride, 10 mL, Intravenous, q12h tamsulosin, 0.4 mg, Oral, Daily with dinner [8] sodium chloride, 75 mL/hr, Last Rate: 75 mL/hr (09/29/251817) sodium chloride, 125 mL/hr Cosigned by Kirk Villatoro MD at 09/30/2025 2:32 PM EST * Clinician Note - Amol Huynh - 10/04/2025 7:59 AM EST Physical Therapy Attempt Patient Name: Justin Best Today's Date: 10/04/2025 Patient was attempted to be seen by physical therapy 10/04/2025 for PT Treatment however patient off the floor. Physical therapy team will follow-up as schedule permits. Written by Amol Huynh on 10/04/25 at 7:59 AM. * Care Plan - Cornel Barrett RN - 10/04/2025 12:36 AM EST Problem: Adult Inpatient Plan of Care Goal: Plan of Care Review Outcome: Ongoing, Progressing Flowsheets (Taken 10/04/202532) Progress: improving Outcome Evaluation: patient recieved all scheduled medications on time, gathered time and screen, and blood gotten and one unit administered with unit complete just after mindnight. Plan of Care Reviewed With: patient Goal: Patient-Specific Goal (Individualized) Outcome: Ongoing, Progressing Flowsheets (Taken 10/03/20251999) Patient/Family-Specific Goals (Include Timeframe): Pt to receive all scheduled medications on-time in addition to collecting a type and screen and starting blood administration before midnight. Individualized Care Needs: lab work, blood administration, minor assistnace with ADLS. Anxieties, Fears or Concerns: Wondering if he is going to get a unit of blood tonight before his kidney biopsy tomorrow Goal: Absence of Hospital-Acquired Illness or Injury Outcome: Ongoing, Progressing Intervention: Identify and Manage Fall Risk Flowsheets (Taken 10/04/202532) Safety Promotion/Fall Prevention: activity supervised clutter-free environment maintained Intervention: Prevent Skin Injury Flowsheets (Taken 10/04/202532) Body Position: weight shifting Skin Protection: incontinence pads utilized Intervention: Prevent and Manage VTE (Venous Thromboembolism) Risk Flowsheets (Taken 10/04/202532) VTE Prevention/Management: bilateral SCDs (sequential compression devices) off medication Intervention: Prevent Infection Flowsheets (Taken 10/04/202532) Infection Prevention: hand hygiene promoted rest/sleep promoted Goal: Optimal Comfort and Wellbeing Outcome: Ongoing, Progressing Intervention: Monitor Pain and Promote Comfort Flowsheets (Taken 10/04/202532) Pain Management Interventions: emotional support Intervention: Provide Person-Centered Care Flowsheets (Taken 10/04/202532) Trust Relationship/Rapport: care explained choices provided emotional support provided empathic listening provided questions answered Problem: Infection Goal: Absence of Infection Signs and Symptoms Outcome: Ongoing, Progressing Intervention: Prevent or Manage Infection Flowsheets (Taken 10/04/202532) Infection Management: aseptic technique maintained Fever Reduction/Comfort Measures: lightweight bedding lightweight clothing Isolation Precautions: precautions maintained Problem: Self-Care Deficit Goal: Improved Ability to Complete Activities of Daily Living Outcome: Ongoing, Progressing Intervention: Promote Activity and Functional [place] Flowsheets (Taken 10/04/202532) Activity Assistance Provided: independent assistance, stand-by Adaptive Equipment Use: used independently Self-Care Promotion: independence encouraged Problem: Skin Injury Risk Increased Goal: Skin Health and Integrity Outcome: Ongoing, Progressing Intervention: Optimize Skin Protection Flowsheets (Taken 10/04/202532) Activity Management: activity adjusted per tolerance Pressure Reduction Techniques: frequent weight shift encouraged heels elevated off bed Pressure Reduction Devices: positioning supports utilized Skin Protection: incontinence pads utilized Head of Bed (HOB) Positioning: HOB at 30 degrees Intervention: Promote and Optimize Oral Intake Flowsheets (Taken 10/04/202532) Oral Nutrition Promotion: physical activity promoted Nutrition Interventions: diet adjusted Problem: Acute Kidney Injury/Impairment Goal: Fluid and Electrolyte Balance Outcome: Ongoing, Progressing Intervention: Monitor and Manage Fluid and Electrolyte Balance Flowsheets (Taken 10/04/202532) Fluid/Electrolyte Management: fluids restricted intravenous fluids adjusted Goal: Improved Oral Intake Outcome: Ongoing, Progressing Intervention: Promote and Optimize Oral Intake Flowsheets (Taken 10/04/202532) Oral Nutrition Promotion: physical activity promoted Nutrition Interventions: diet adjusted Goal: Effective Renal Function Outcome: Ongoing, Progressing Intervention: Monitor and Support Renal Function Flowsheets (Taken 10/04/202532) Stabilization Measures: legs elevated Medication Review/Management: medications reviewed Problem: Fall Injury Risk Goal: Absence of Fall and Fall-Related Injury Outcome: Ongoing, Progressing Intervention: Identify and Manage Contributors Flowsheets (Taken 10/04/202532) Medication Review/Management: medications reviewed Self-Care Promotion: independence encouraged Intervention: Promote Injury-Free Environment Flowsheets (Taken 10/04/202532) Safety Promotion/Fall Prevention: activity supervised clutter-free environment maintained * Progress Notes - Sue Malcolm MD - 10/03/2025 6:55 PM EST Daily Progress Note Summary Mr. 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 No acute overnight events. Discussed extensively with Urology and Carmona exchange today 10/03 I discussed with nephrology team and patient planned for kidney biopsy tomorrow 10/04 ROS: Gen: No F/C/R CVS: No CP. No orthopnea or PND. RES: No cough or dyspnea reported. GI: No N/V/D Objective Vitals: 10/02/25 2325 10/03/25 0316 10/03/25 0512 10/03/25 0752 BP: 118/73 122/69 134/73 BP Location: Right arm Right arm Patient Position: Lying Lying Pulse: 69 65 63 Resp: Temp: 36.3 ??C (97.3 ??F) 36.4 ??C (97.5 ??F) 36.3 ??C (97.3 ??F) TempSrc: Oral Oral SpO2: 96% 95% 95% Weight: 88.4 kg (194 lb 14.2 oz) Height: BMI: Body mass index is 26.43 kg/m??. Physical Exam: General Well appearing, no acute distress Eyes PERRL, EOMI Head NC/AT ENT OP moist. Hearing grossly normal. No mucosal lesions CV RRR, S1 + S2. Murmurs: none. Pulses: 2+ pulses in all extremities RES CTAB. Non-labored breathing GI Soft. NT/ND. No peritoneal signs FRANK AAOx4. No focal deficits b/l EXT No clubbing. No cyanosis. No edema Skin Without lesions, warm and dry PSY Normal mood and affect I/O: I/O last 3 completed shifts: In: 2440 (27.6 mL/kg) [P.O.:940; I.V.:1500 (17 mL/kg)] Out: 2150 (24.3 mL/kg) [Urine:2150 (0.7 mL/kg/hr)] Weight: 88.4 kg No intake/output data recorded. Labs: CBC: Results from last 7 days Lab Units 10/03/25 0618 10/02/25 0611 10/01/25 0334 WBC 10*3/uL 8.53 9.85 4.24 HEMOGLOBIN g/dL 7.1* 7.9* 7.5* HEMATOCRIT % 22.6* 24.8* 23.2* PLATELETS 10*3/uL 334 366 339 CMP: Results from last 7 days Lab Units 10/03/25 0618 10/02/25 0611 10/01/25 0334 09/30/25 0417 09/29/25 1232 09/29/25 0916 SODIUM mmol/L 138 136 134* < > 133* 134* POTASSIUM mmol/L 4.5 4.4 4.6 < > 4.0 4.4 CHLORIDE mmol/L 107 106 101 < > 99 99 CO2 mmol/L 18* 17* 19* < > 19* 21* BUN mg/dL 70* 65* 62* < > 61* 60* CREATININE mg/dL 7.49* 8.64* 9.91* < > 10.03* 9.77* CALCIUM mg/dL 8.1* 8.1* 7.9* < > 8.2* 8.1* BILIRUBIN TOTAL mg/dL -- -- 0.2 -- 0.5 0.4 ALKALINE PHOSPHATASE U/L -- -- 83 -- 91 90 ALT U/L -- -- 20 -- 21 21 AST U/L -- -- 22 -- 26 26 GLUCOSE mg/dL 115* 119* 158* < > 101* 98 < > = values in this interval not displayed. Medications (scheduled): Current Scheduled Medications[1] Medications (continous): Current Continuous Medications[2] Medications (PRN): Current PRN Medications[3] Assessment and Plan Mr. Dycus is a 70-year-old man with history significant for adenocarcinoma of the gastroesophageal junction that is being treated with immunotherapy presents with acute kidney injury in the setting of prostatomegaly/BPH Acute kidney injury suspected due to AIN likely from immunotherapy Creatinine improving with steroids Nephrology is consulted and pt is started on Steroids and medical Px Kidney biopsy planned 10/04 Continue to Monitor renal functions This condition poses an acute threat to life/bodily function. High complexity: Acute threat to life/bodily function: GI Ca, UTI , ATN Discussed management with: Nephrology Unique labs reviewed: CBC, renal function panel with AKl, magnesium low, liver tests normal Personally reviewed: Chest x-ray showing clear lungs Acute UTI with pseudomonas in U cx Initially started on empiric ceftriaxone blood culture showed Pseudomonas Patient was on ceftriaxone which did not cover Pseudomonas but patient is asymptomatic Carmona catheter was exchanged today 10/03 by Urology Continue to monitor patient without antibiotics Adenocarcinoma of the esophagus/gastroesophageal junction: Previously treated with leucovorin, oxaliplatin, Taxotere, fluorouracil. Now on immunotherapy only with nivolumab and ipilimumab. PET-CT September 28 showed distal esophageal activity concerning for residual disease We will continue with full liquid diet The patient reports that with acute kidney injury his immunotherapy is on hold He was not tolerating chemotherapy and that is also on hold May need to consult with Oncology if he has prolonged hospitalization. We will continue with full liquid diet and will supplement with nutrition shakes due to swallow dysfunction. Continue PPI for GI acid suppression Anemia of chronic disease -possibly secondary to chemotherapy or iron-deficiency. -Patient with hemoglobin of 7.1 today and given the planned procedure will transfuse him with 1 unit today 10/03 - Recheck CBC and transfuse for hemoglobin below 7 Protein calorie malnutrition: - Moderate Secondary to limited diet. He previously had hypophosphatemia and hypomagnesemia due to poor nutrition. I discussed advancing his nutrition supplementation from 2 Ensure shakes per day up to 6 Ensure shakes per day. - We will continue to monitor his electrolytes We must be cautious with electrolyte replacement in the setting of his kidney dysfunction. Thyroid mass: PET scan showed activity in his thyroid We will need outpatient ultrasound and follow up with evaluation by Oncology Suspected Heart failure with preserved ejection fraction-chronic: Patient reports no particular cardiac issues and never had ischemic heart disease, stents etc. He has peripheral edema on exam He also had echocardiogram July 2025 showing preserved LVEF at 65% and grade 1 diastolic dysfunction. Must be cautious with IV fluid administration and aggressive oral fluid intake. Blood pressure is currently a bit low which limits escalation of heart failure medications. With his acute kidney injury, I do not recommend diuretics. Venous thromboembolism prophylaxis We will use SCDs for DVT prophylaxis in the setting of his acute kidney injury Sue Malcolm MD [facility] medicine [1] atovaquone, 1,500 mg, Oral, Daily emollient, , Topical, BID famotidine, 10 mg, Oral, Daily finasteride, 5 mg, Oral, Daily heparin (porcine), 5,000 Units, Subcutaneous, q8h PATRICK mupirocin, 1 Application, Each Nostril, BID predniSONE, 80 mg, Oral, Daily sodium bicarbonate, 650 mg, Oral, TID sodium chloride, 10 mL, Intravenous, q12h tamsulosin, 0.4 mg, Oral, Daily with dinner [2] [3] PRN medications: gi cocktail, loperamide, ondansetron ODT OR ondansetron, Insert peripheralIV AND Saline lock IV AND sodium chloride AND sodium chloride * Care Plan - Loni Barth RN - 10/03/2025 4:24 PM EST Problem: Adult Inpatient Plan of Care Goal: Plan of Care Review Outcome: Ongoing, Progressing Flowsheets (Taken 10/03/2025 161) Progress: no change Outcome Evaluation: POC reviewed with Pt. Pt agreeable with POC Plan of Care Reviewed With: patient Goal: Patient-Specific Goal (Individualized) Outcome: Ongoing, Progressing Flowsheets (Taken 10/03/2025 1619) Patient/Family-Specific Goals (Include Timeframe): Pt will remain free from harm entirety of shift Individualized Care Needs: Abdominal renal function Anxieties, Fears or Concerns: None stated Goal: Absence of Hospital-Acquired Illness or Injury Outcome: Ongoing, Progressing Intervention: Identify and Manage Fall Risk Flowsheets (Taken 10/03/2025 1619) Safety Promotion/Fall Prevention: activity supervised assistive device/personal items within reach clutter-free environment maintained fall prevention program maintained lighting adjusted nonskid shoes/slippers when out of bed mobility aid in reach room organization consistent safety round/check completed toileting scheduled Intervention: Prevent Skin Injury Flowsheets (Taken 10/03/20251618) Body Position: weight shifting sitting up in bed Skin Protection: incontinence pads utilized transparent dressing maintained Intervention: Prevent and Manage VTE (Venous Thromboembolism) Risk Flowsheets (Taken 10/03/20251618) VTE Prevention/Management: medication Intervention: Prevent Infection Flowsheets (Taken 10/03/20251618) Infection Prevention: hand hygiene promoted equipment surfaces disinfected rest/sleep promoted single patient room provided Goal: Optimal Comfort and Wellbeing Outcome: Ongoing, Progressing Intervention: Monitor Pain and Promote Comfort Flowsheets (Taken 10/03/20251618) Pain Management Interventions: medication (see MAR) Intervention: Provide Person-Centered Care Flowsheets (Taken 10/03/20251618) Trust Relationship/Rapport: care explained emotional support provided empathic listening provided questions answered questions encouraged thoughts/feelings acknowledged Problem: Infection Goal: Absence of Infection Signs and Symptoms Outcome: Ongoing, Progressing Intervention: Prevent or Manage Infection Flowsheets (Taken 10/03/20251618) Infection Management: aseptic technique maintained Fever Reduction/Comfort Measures: lightweight bedding lightweight clothing Isolation Precautions: precautions maintained Problem: Self-Care Deficit Goal: Improved Ability to Complete Activities of Daily Living Outcome: Ongoing, Progressing Intervention: Promote Activity and Functional [place] Flowsheets (Taken 10/03/20251618) Activity Assistance Provided: independent assistance, stand-by Adaptive Equipment Use: use encouraged Self-Care Promotion: BADL personal objects within reach Problem: Skin Injury Risk Increased Goal: Skin Health and Integrity Outcome: Ongoing, Progressing Intervention: Optimize Skin Protection Flowsheets (Taken 10/03/20251618) Activity Management: activity adjusted per tolerance Pressure Reduction Techniques: frequent weight shift encouraged heels elevated off bed Pressure Reduction Devices: positioning supports utilized Skin Protection: incontinence pads utilized transparent dressing maintained Head of Bed (HOB) Positioning: HOB at 30 degrees Intervention: Promote and Optimize Oral Intake Flowsheets (Taken 10/03/20251618) Oral Nutrition Promotion: physical activity promoted Nutrition Interventions: diet adjusted Problem: Acute Kidney Injury/Impairment Goal: Fluid and Electrolyte Balance Outcome: Ongoing, Progressing Intervention: Monitor and Manage Fluid and Electrolyte Balance Flowsheets (Taken 10/03/20251618) Fluid/Electrolyte Management: fluids provided intravenous fluids adjusted Goal: Improved Oral Intake Outcome: Ongoing, Progressing Intervention: Promote and Optimize Oral Intake Flowsheets (Taken 10/03/2025 161) Oral Nutrition Promotion: physical activity promoted Nutrition Interventions: diet adjusted Goal: Effective Renal Function Outcome: Ongoing, Progressing Intervention: Monitor and Support Renal Function Flowsheets (Taken 10/03/2025 161) Stabilization Measures: legs elevated Medication Review/Management: medications reviewed Problem: Fall Injury Risk Goal: Absence of Fall and Fall-Related Injury Outcome: Ongoing, Progressing Intervention: Identify and Manage Contributors Flowsheets (Taken 10/03/2025 161) Medication Review/Management: medications reviewed Self-Care Promotion: BADL personal objects within reach Intervention: Promote Injury-Free Environment Flowsheets (Taken 10/03/20251618) Safety Promotion/Fall Prevention: activity supervised assistive device/personal items within reach clutter-free environment maintained fall prevention program maintained lighting adjusted nonskid shoes/slippers when out of bed mobility aid in reach room organization consistent safety round/check completed toileting scheduled * Progress Notes - Celine Riggs MBBS - 10/03/2025 1:15 PM EST Nephrology Progress Note Patient: Justin Best Admit Date: 09/29/2025 Reason for consult: acute kidney injury Subjective No acute events overnight. Patient states that he is doing well today. Patient denies dyspnea. Patient is tolerating his diet well. Patient denies any nausea or vomiting. Patient endorsing good urineoutput. Objective Visit Vitals BP 134/73 Pulse 63 Temp 36.3 ??C (97.3 ??F) Resp 16 Ht 1.829 m (6') Wt 88.4 kg (194 lb 14.2 oz) SpO2 95% BMI 26.43 kg/m?? Smoking Status Never BSA 2.12 m?? Temp: [36.3 ??C (97.3 ??F)-36.4 ??C (97.5 ??F)] 36.3 ??C (97.3 ??F) Heart Rate: [63-83] 63 Resp: [16] 16 BP: (103-134)/(64-73) 134/73 Problem List Principal Problem: Obstructive nephropathy Active Problems: Benign prostatic hyperplasia without lower urinary tract symptoms Adenocarcinoma of gastroesophageal junction Thyroid mass Dysphagia Hypomagnesemia Hypophosphatemia Protein-calorie malnutrition, moderate (CMS/HCC) Anemia, unspecified Asymptomatic bacteriuria Chronic heart failure with preserved ejection fraction (HFpEF) ATN (acute tubular necrosis) Azotemia CKD (chronic kidney disease) stage 2, GFR 60-89 ml/min Hyperphosphatemia Metabolic acidosis Medications: Current Medications: Current Scheduled Medications[1] Current Continuous Medications[2] Physical Exam: General: no apparent distress, patient lying comfortably in bed Eyes: clear conjunctivae bilaterally, no lid lag HENT: Moist mucus membranes, atraumatic Neck: trachea midline, supple Respiratory: no increased work of breathing, equal chest rise CV: No peripheral edema Skin: No visible rash Musculoskeletal: No joint swelling, no cyanosis Neuro: Awake, alert, and appropriately conversant Psych: Appropriate mood and affect Laboratory: CBC: Results from last 7 days Lab Units 10/03/25 0618 10/02/25 0611 10/01/25 0334 WBC 10*3/uL 8.53 9.85 4.24 HEMOGLOBIN g/dL 7.1* 7.9* 7.5* HEMATOCRIT % 22.6* 24.8* 23.2* PLATELETS 10*3/uL 334 366 339 CMP: Results from last 7 days Lab Units 10/03/25 0618 10/02/25 0611 10/01/25 0334 09/30/25 0417 09/29/25 1232 09/29/25 0916 SODIUM mmol/L 138 136 134* < > 133* 134* POTASSIUM mmol/L 4.5 4.4 4.6 < > 4.0 4.4 CHLORIDE mmol/L 107 106 101 < > 99 99 CO2 mmol/L 18* 17* 19* < > 19* 21* BUN mg/dL 70* 65* 62* < > 61* 60* CREATININE mg/dL 7.49* 8.64* 9.91* < > 10.03* 9.77* CALCIUM mg/dL 8.1* 8.1* 7.9* < > 8.2* 8.1* BILIRUBIN TOTAL mg/dL -- -- 0.2 -- 0.5 0.4 ALKALINE PHOSPHATASE U/L -- -- 83 -- 91 90 ALT U/L -- -- 20 -- 21 21 AST U/L -- -- 22 -- 26 26 GLUCOSE mg/dL 115* 119* 158* < > 101* 98 < > = values in this interval not displayed. LFT: AST, Plasma Date Value Ref Range Status 10/01/2025 22 10 - 50 U/L Final ALT, Plasma Date Value Ref Range Status 10/01/2025 20 10 - 50 U/L Final Alkaline Phosphatase, Plasma Date Value Ref Range Status 10/01/2025 83 40 - 115 U/L Final Total Bilirubin, Plasma Date Value Ref Range Status 10/01/2025 0.2 0.2 - 1.1 mg/dL Final Impression & Plan: Mr. Best is a 70-year-old man with a history of esophageal/gastroesophageal junction adenocarcinoma (previously treated with FLOT-D from 08/03/25-08/31/25, now on ipilimumab/nivolumab since 09/13/25) and prostatomegaly with chronic urinary retention requiring intermittent indwelling urinary catheterization under Urology care. His baseline serum creatinine ranges 0.9-1.1 mg/dL. # Non oliguric YOLI on CKD stage 2 Etiology: Concerning for checkpoint inhibitor toxicity - Receive 2 doses of ipilimumab/nivolumab since 09/13/25 - Low suspicion for postobstructive YOLI given that patient has indwelling Carmona's catheter. He had a monitored voiding trial in urology clinic. His catheter was removed for only a short period of time and then reinserted as he failed his voiding trial - ATN remains in differential due to progression of prerenal YOLI given recent onset of diarrhea decreased by mouth intake with deconditioning and recent C diff infection Baseline serum creatinine: 0.9-.1.1 Creatinine at the time of consult: 9.91 Electrolytes: Largely unremarkable Volume: Euvolemic Acid/Base: Mild acidosis Urine: Blood, protein, leukocyte esterase and nitrite; sample obtained from indwelling catheter; urine sodium 71 Imaging: Mild echogenic kidneys with decompressed bladder # Azotemia # Non gap metabolic acidosis # Hyperphosphatemia # Hypomagnesemia # Adenocarcinoma of the esophagus/gastroesophageal junction - Was previously treated with leucovorin, oxaliplatin, Taxotere, fluorouracil. Now on immunotherapyonly with nivolumab and ipilimumab. 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 It was previously discussed with the patient that the expected benefits outweigh the risks, even in the context of his recent infections, including C. difficile. -Agree with continuation of IV antibiotics for treatment of UTI. -Tentative plan for renal biopsy on Friday, 10/04, to obtain a definitive diagnosis. The patient has been consented and understands that, although this is a higher-risk procedure, the potential benefits outweigh the risks. - Would recommend to obtain H&H at midnight and transfuse 1 unit if hemoglobin is less than 7. -Continue PJP prophylaxis with atovaquone 1,500 mg orally once daily -DC PPI given concern for AIN Thank you for the opportunity to participate in the care of this patient. [1] atovaquone, 1,500 mg, Oral, Daily emollient, , Topical, BID famotidine, 10 mg, Oral, Daily finasteride, 5 mg, Oral, Daily heparin (porcine), 5,000 Units, Subcutaneous, q8h PATRICK mupirocin, 1 Application, Each Nostril, BID predniSONE, 80 mg, Oral, Daily sodium bicarbonate, 650 mg, Oral, TID sodium chloride, 10 mL, Intravenous, q12h tamsulosin, 0.4 mg, Oral, Daily with dinner [2] Cosigned by Kirk Villatoro MD at 10/04/2025 11:51 AM EST Associated attestation - Kirk Villatoro MD - 10/04/2025 11:51 AM EST I saw and evaluated the patient with the resident/fellow. I discussed the case with the resident/fellow and agree with the findings and plan as documented. * Progress Notes - Ilene Fairbanks RN - 10/03/2025 12:48 PM EST Case Management Adult Progress Note Justin Best 70 y.o. male [facility]: [id number] Admission: 09/29/2025 11:55 AM Primary Problem: Obstructive nephropathy Anticipated Discharge Date: TBD Additional Comments POC and discharge plans were discussed with 5 treatment team during morning rounds. Per MD attending, pt is not medically ready for discharge. Last BM: 10/02/25 Planned for renal bx tomorrow, 10/04/25. Changed F/C today 10/03/2025. Stopped IV abx. Will continue to follow and assist with all discharge needs. Ilene Fairbanks RN [facility] [employer] Secure Chat Preferred [phone] * Consults - Margie Atkins DO - 10/03/2025 12:15 PM ESTAssociated Order(s): Inpatient consult to Urology Inpatient consult to Urology Consult performed by: Margie Atkins DO Consult ordered by: Sue Malcolm MD [facility] Urology Consult Note 10/03/25 Service Requesting Consultation: Hospital Medicine CC: Difficult Carmona Catheter Exchange HPI: Justin Best is a 70 y.o. male with a past medical history of gross hematuria, elevated PSAand BPH with lower urinary tract symptoms, in addition to adenocarcinoma of the esophagus/gastroesophageal junction . Patient was recently seen during hospitalization for C diff colitis after developing gross hematuria after Carmona catheter placement. It was determined at that time that catheter wasnot in appropriate position and this was exchanged with resolution of gross hematuria. Patient was started on Proscar during recent admission which he is still taking. Patient did have a CT scan during recent admission that revealed 115 g prostate. He was ultimately discharged home with Carmona catheter in place and then followed up in clinic last week on 09/[address] Rock saw him and exchanged folety with a new 20 [place] coude Carmona catheter and catheter flushed and aspirated appropriately with clear appearing drainage. A long discussion was also had about his PSA and bladder outlet obstruction, and how if patient continues to have ongoing issues with retention may ultimately require chronic catheter versus outlet procedure at later date. He now is admitted to hospital medicine after abnormal labs and PET. Urology was consulted for carmona catheter exchange. A catheter was not attempted to be placed by nursing staff, because patient thought that only urology was allowed to exchange his catheter. Patient is currently taking the finasteride and previously was on alfuzosin but is no longer taking this dueto orthostatic hypotension. Prior to his development of retention and needing Carmona catheter he didreport some degree of lower urinary tract symptoms but these had improved significantly with the alfuzosin. Of note he did recently get a PSA by his oncologist that was elevated at 8.4 however recentCT imaging did reveal 115 g prostate. He did have a recent PET scan for workup of his GE junction cancer which did show no obvious PET avid disease however this was not a specific PSMA PET scan. Patient denies any family history of prostate cancer. He endorses that he would like to speak more abouta possible HoLEP outpatient with his urology provider. Past Medical History: reviewed Past Medical History[1] Past Surgical History: reviewed Surgical History[2] Family History: reviewed Family History[3] Social History: reviewed Social History[4] Outpatient Medications: Current Outpatient Medications Medication Instructions diphenhydrAMINE (BENADRYL) 25 mg, As needed famotidine (PEPCID) 20 mg, Daily finasteride (PROSCAR) 5 mg, Oral, Daily, Do not crush, chew, or split. Pt asking about refill MELATONIN PO 1 tablet, Nightly PRN pantoprazole (PROTONIX) 40 mg, Oral, Daily, Do not crush, chew, or split. Pt asking about refill PHYSICAL EXAM: Temp: [36.3 ??C (97.3 ??F)-36.4 ??C (97.5 ??F)] 36.3 ??C (97.3 ??F) Heart Rate: [63-83] 63 Resp: [16] 16 BP: (103-134)/(64-73) 134/73 SpO2: [95 %-97 %] 95 % GEN: NAD HEENT: NCAT, EOMI RESP: Equal bilateral chest rise, normal work of breathing CV: Regular rate, appears well perfused ABD: Nondistended : 20Fr coude catheter in place draining clear yellow urine EXT: No gross deformities MSK: Full ROM in BL UE NEURO: No focal deficits, alert and oriented PSYCH: Normal mood and affect LABS: Results from last 7 days Lab Units 10/03/25 0618 WBC 10*3/uL 8.53 HEMOGLOBIN g/dL 7.1* HEMATOCRIT % 22.6* PLATELETS 10*3/uL 334 Results from last 7 days Lab Units 10/03/25 0618 SODIUM mmol/L 138 POTASSIUM mmol/L 4.5 CHLORIDE mmol/L 107 CO2 mmol/L 18* BUN mg/dL 70* CREATININE mg/dL 7.49* EGFR mL/min/1.73m*2 7.2 GLUCOSE mg/dL 115* CALCIUM mg/dL 8.1* Results from last 7 days Lab Units 09/29/25 1346 COLOR UA Yellow SPEC GRAV U 1.010 PH UA 6.5 PROTEIN UR mg/dL 30* GLUCOSE UA mg/dL Negative KETONES UA mg/dL Negative LEUKOCYTES UA Large* NITRITE UA Positive* RBC, URINE /HPF 2 WBC, URINE /HPF >50* SQUAMOUS /HPF 0 - 2 BACTERIA UR HPF Present Results from last 7 days Lab Units 09/29/25 1346 URINE CULTURE >=100,000 CFU/mL Pseudomonas aeruginosa* >=100,000 CFU/mL - Biotype 2 Pseudomonas aeruginosa* Imaging: I have personally reviewed the imaging below: SANTINO 09/2025: No hydronephrosis. Bladder catheter is seen within the lumen of the nearly empty bladder. Hospital Problem List: Principal Problem: Obstructive nephropathy Active Problems: Benign prostatic hyperplasia without lower urinary tract symptoms Adenocarcinoma of gastroesophageal junction Thyroid mass Dysphagia Hypomagnesemia Hypophosphatemia Protein-calorie malnutrition, moderate (CMS/HCC) Anemia, unspecified Asymptomatic bacteriuria Chronic heart failure with preserved ejection fraction (HFpEF) ATN (acute tubular necrosis) Azotemia CKD (chronic kidney disease) stage 2, GFR 60-89 ml/min Hyperphosphatemia Metabolic acidosis Procedure: A 20 Fr Coude was found to be in place draining clear yellow urine. A 10cc syringe was attached to the balloon and 10mL of fluid was removed from the catheter balloon. The Catheter was then removed without difficulty. The patient was sterilely prepped and draped in usual fashion. An 20 Fr Coude catheter was advancedinto the urethra. The carmona was advanced easily into the bladder with confirmation of return of urine. The catheter was hubbed to the urethral meatus and the balloon was filled with 10ml of sterile water. The catheter was attached to a Carmona catheter drainage bag and there was immediate return of approximately 20ml of urine. Assessment: Justin Best is a 70 y.o. male with a past medical history of gross hematuria, elevated PSA and BPH with lower urinary tract symptoms, in addition to adenocarcinoma of the esophagus/gastroesophageal junction. Urology was consulted for placement of a difficult carmona catheter. Urology was consulted for carmona catheter exchange. A catheter was not attempted to be placed by nursingstaff, because patient thought that only urology was allowed to exchange his catheter. The patient is noted to be AF, HDS, and saturating well on RA. The patient's labs are notable for WBC 8.53, hgb 7.1, cr 7.49 downtrending from 10 on admission whereas when he was admitted 09/08 his Cr was 0.97. SANTINO 09/2025: No hydronephrosis. Bladder catheter is seen within the lumen of the nearly empty bladder. UA was notable for small blood, positive leukocytes, positive nitrites, 2 RBC, >5-0 WBC, and present bacteria. Urine cultures on 09/29 were notable for >100K pseudomonas. Plan: - Catheter was placed without issue. Nursing should attempt further catheter placements before urology is consulted. - Follow up outpatient with urology as scheduled to discuss HoLEP with Dr. Rock. For questions or concerns, please contact the integration specialist ENDO resident via [employer] Secure Chat or by pager based on the urgency of the concern. Denisa Atkins DO [place] Department of Urology, PGY-1 Pager: [phone] [1] Past Medical History: Diagnosis Date Blood urine 2023 Cancer (CMS/HCC) 2024 current diagnosis Esophageal cancer june 2025 Hypertension 1999 Kidney stone Skin cancer 2004 Stomach cancer (CMS/HCC) june 2025 Urinary retention [2] Past Surgical History: Procedure Laterality Date APPENDECTOMY 2020 BACK SURGERY 2001 CHOLECYSTECTOMY 1985 COLONOSCOPY 2023 GALLBLADDER SURGERY 1998 ORTHOPEDIC SURGERY [...] of beer per week Drug use: Never Cosigned by Mario Barker MD at 10/03/2025 9:32 PM EST Associated attestation - Mario Barker MD - 10/03/2025 9:32 PM EST I saw and evaluated the patient with the resident/fellow. I discussed the case with the resident/fellow and agree with the findings and plan as documented. * Care Plan - Odilia Su RN - 10/03/2025 2:32 AM EST Problem: Adult Inpatient Plan of Care Goal: Plan of Care Review Outcome: Ongoing, Progressing Flowsheets (Taken 10/03/2025227) Progress: no change Outcome Evaluation: Patient tolerating IVFs well without signs of lfuid overload renal function labs are pending Plan of Care Reviewed With: patient Goal: Patient-Specific Goal (Individualized) Flowsheets (Taken 10/02/20251999) Patient/Family-Specific Goals (Include Timeframe): patient will receive and tolerate IVFs throughout shift renal function tests will return to baseline before discharge Individualized Care Needs: abnomal renal function Anxieties, Fears or Concerns: none stated Goal: Absence of Hospital-Acquired Illness or Injury Outcome: Ongoing, Progressing Intervention: Prevent Infection Flowsheets (Taken 10/03/2025227) Infection Prevention: hand hygiene promoted personal protective equipment utilized rest/sleep promoted single patient room provided equipment surfaces disinfected Goal: Optimal Comfort and Wellbeing Outcome: Ongoing, Progressing Intervention: Provide Person-Centered Care Flowsheets (Taken 10/03/2025227) Trust Relationship/Rapport: care explained questions encouraged questions answered Problem: Infection Goal: Absence of Infection Signs and Symptoms Outcome: Ongoing, Progressing Intervention: Prevent or Manage Infection Flowsheets (Taken 10/03/2025227) Infection Management: aseptic technique maintained Fever Reduction/Comfort Measures: lightweight clothing lightweight bedding Isolation Precautions: (contact D) precautions maintained other (see comments) Problem: Self-Care Deficit Goal: Improved Ability to Complete Activities of Daily Living Outcome: Ongoing, Progressing Intervention: Promote Activity and Functional [place] Flowsheets (Taken 10/03/2025227) Activity Assistance Provided: assistance, stand-by Self-Care Promotion: BADL personal objects within reach Problem: Skin Injury Risk Increased Goal: Skin Health and Integrity Outcome: Ongoing, Progressing Intervention: Optimize Skin Protection Flowsheets (Taken 10/03/2025227) Activity Management: activity adjusted per tolerance Pressure Reduction Techniques: heels elevated off bed frequent weight shift encouraged Skin Protection: incontinence pads utilized transparent dressing maintained Head of Bed (HOB) Positioning: HOB elevated Problem: Acute Kidney Injury/Impairment Goal: Fluid and Electrolyte Balance Outcome: Ongoing, Progressing Intervention: Monitor and Manage Fluid and Electrolyte Balance Flowsheets (Taken 10/03/2025227) Fluid/Electrolyte Management: fluids provided intravenous fluids adjusted Goal: Improved Oral Intake Outcome: Ongoing, Progressing Intervention: Promote and Optimize Oral Intake Flowsheets (Taken 10/03/2025227) Nutrition Interventions: diet adjusted Goal: Effective Renal Function Outcome: Ongoing, Progressing Intervention: Monitor and Support Renal Function Flowsheets (Taken 10/03/2025227) Stabilization Measures: legs elevated Medication Review/Management: medications reviewed * Progress Notes - Sue Malcolm MD - 10/02/2025 2:58 PM EST Daily Progress Note Summary Mr. 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 No acute overnight events. He did have some nausea and irritation in stomach yesterday but that has improved now She reports no specific complaints today. Reports he is able to eat and drink ROS: Gen: No F/C/R CVS: No CP. No orthopnea or PND. RES: No cough or dyspnea reported. GI: No N/V/D Objective Vitals: 10/01/25 2323 10/02/25 0311 10/02/25 0733 10/02/25 1211 BP: 103/64 106/65 116/76 126/73 BP Location: Right arm Patient Position: Lying Pulse: 66 66 67 80 Resp: 16 15 Temp: 36.4 ??C (97.5 ??F) 36.5 ??C (97.7 ??F) 36.3 ??C (97.3 ??F) 36.3 ??C (97.3 ??F) TempSrc: Oral SpO2: 93% 93% 94% 97% Weight: Height: BMI: Body mass index is 24.95 kg/m??. Physical Exam: General Well appearing, no acute distress Eyes PERRL, EOMI Head NC/AT ENT OP moist. Hearing grossly normal. No mucosal lesions CV RRR, S1 + S2. Murmurs: none. Pulses: 2+ pulses in all extremities RES CTAB. Non-labored breathing GI Soft. NT/ND. No peritoneal signs FRANK AAOx4. No focal deficits b/l EXT No clubbing. No cyanosis. No edema Skin Without lesions, warm and dry PSY Normal mood and affect I/O: I/O last 3 completed shifts: In: 1900 (22.8 mL/kg) [P.O.:400; I.V.:1500 (18 mL/kg)] Out: 2350 (28.2 mL/kg) [Urine:2350 (0.8 mL/kg/hr)] Weight: 83.5 kg No intake/output data recorded. Labs: CBC: Results from last 7 days Lab Units 10/02/25 0611 10/01/25 0334 09/30/25 0417 WBC 10*3/uL 9.85 4.24 8.96 HEMOGLOBIN g/dL 7.9* 7.5* 6.6* HEMATOCRIT % 24.8* 23.2* 20.2* PLATELETS 10*3/uL 366 339 376* CMP: Results from last 7 days Lab Units 10/02/25 0611 10/01/25 0334 09/30/25 0417 09/29/25 1232 09/29/25 0916 SODIUM mmol/L 136 134* 135* 133* 134* POTASSIUM mmol/L 4.4 4.6 4.2 4.0 4.4 CHLORIDE mmol/L 106 101 102 99 99 CO2 mmol/L 17* 19* 20* 19* 21* BUN mg/dL 65* 62* 62* 61* 60* CREATININE mg/dL 8.64* 9.91* 9.91* 10.03* 9.77* CALCIUM mg/dL 8.1* 7.9* 7.8* 8.2* 8.1* BILIRUBIN TOTAL mg/dL -- 0.2 -- 0.5 0.4 ALKALINE PHOSPHATASE U/L -- 83 -- 91 90 ALT U/L -- 20 -- 21 21 AST U/L -- 22 -- 26 26 GLUCOSE mg/dL 119* 158* 107* 101* 98 Medications (scheduled): Current Scheduled Medications[1] Medications (continous): Current Continuous Medications[2] Medications (PRN): Current PRN Medications[3] Assessment and Plan Mr. Best is a 70-year-old man with history significant for adenocarcinoma of the gastroesophageal junction that is being treated with immunotherapy presents with acute kidney injury in the setting of prostatomegaly/BPH Acute kidney injury suspected due to AIN likely from immunotherapy Acute UTI with pseudomonas in U cx Urinalysis was concerning for bacteriuria. He is receiving empiric antibiotic with ceftriaxone for possible cystitis. Decrease PO intake and will support the patient with maintenance IV fluids. We will monitor his clearance, volume status and electrolytes. Nephrology is consulted and pt is started on Steroids and medical Px -c/w Monitor renal functions This condition poses an acute threat to life/bodily function. High complexity: Acute threat to life/bodily function: GI Ca, UTI , ATN Discussed management with: Nephrology Unique labs reviewed: CBC, renal function panel with AKl, magnesium low, liver tests normal Personally reviewed: Chest x-ray showing clear lungs Adenocarcinoma of the esophagus/gastroesophageal junction: Previously treated with leucovorin, oxaliplatin, Taxotere, fluorouracil. Now on immunotherapy only with nivolumab and ipilimumab. PET-CT September 28 showed distal esophageal activity concerning for residual disease We will continue with full liquid diet The patient reports that with acute kidney injury his immunotherapy is on hold He was not tolerating chemotherapy and that is also on hold May need to consult with Oncology if he has prolonged hospitalization. We will continue with full liquid diet and will supplement with nutrition shakes due to swallow dysfunction. Continue PPI for GI acid suppression Anemia -possibly secondary to chemotherapy or iron-deficiency. Iron studies ordered Protein calorie malnutrition: - Moderate Secondary to limited diet. He previously had hypophosphatemia and hypomagnesemia due to poor nutrition. I discussed advancing his nutrition supplementation from 2 Ensure shakes per day up to 6 Ensure shakes per day. - We will continue to monitor his electrolytes We must be cautious with electrolyte replacement in the setting of his kidney dysfunction. Thyroid mass: PET scan showed activity in his thyroid We will need outpatient ultrasound and follow up with evaluation by Oncology Heart failure with preserved ejection fraction-chronic: He has peripheral edema on exam He also had echocardiogram July 2025 showing preserved LVEF at 65% and grade 1 diastolic dysfunction. Must be cautious with IV fluid administration and aggressive oral fluid intake. Blood pressure is currently a bit low which limits escalation of heart failure medications. With his acute kidney injury, I do not recommend diuretics. Venous thromboembolism prophylaxis We will use SCDs for DVT prophylaxis in the setting of his acute kidney injury Sue Malcolm MD [facility] medicine [1] atovaquone, 1,500 mg, Oral, Daily cefTRIAXone, 2 g, Intravenous, q24h emollient, , Topical, BID [START ON 10/03/2025] famotidine, 10 mg, Oral, Daily finasteride, 5 mg, Oral, Daily heparin (porcine), 5,000 Units, Subcutaneous, q8h PATRICK mupirocin, 1 Application, Each Nostril, BID predniSONE, 80 mg, Oral, Daily sodium bicarbonate, 650 mg, Oral, TID sodium chloride, 10 mL, Intravenous, q12h tamsulosin, 0.4 mg, Oral, Daily with dinner [2] sodium chloride, 125 mL/hr, Last Rate: 125 mL/hr (10/01/25 6442) [3] PRN medications: gi cocktail, loperamide, ondansetron ODT OR ondansetron, Insert peripheralIV AND Saline lock IV AND sodium chloride AND sodium chloride * Progress Notes - David Miller MD - 10/02/2025 1:05 PM EST [facility] Progress Note Patient: Justin Best Admit Date: 09/29/2025 Reason for consult: acute kidney injury Subjective No acute events overnight. Patient states that he is doing well today. Patient denies dyspnea. Patient is tolerating his diet well. Patient denies any nausea or vomiting. Patient endorsing good urineoutput. Objective Visit Vitals BP 126/73 Pulse 80 Temp 36.3 ??C (97.3 ??F) Resp 15 Ht 1.829 m (6') Wt 83.5 kg (184 lb) SpO2 97% BMI 24.95 kg/m?? Smoking Status Never BSA 2.06 m?? Temp: [36.3 ??C (97.3 ??F)-36.5 ??C (97.7 ??F)] 36.3 ??C (97.3 ??F) Heart Rate: [66-80] 80 Resp: [15-16] 15 BP: (103-126)/(64-76) 126/73 Problem List Principal Problem: Obstructive nephropathy Active Problems: Benign prostatic hyperplasia without lower urinary tract symptoms Adenocarcinoma of gastroesophageal junction Thyroid mass Dysphagia Hypomagnesemia Hypophosphatemia Protein-calorie malnutrition, moderate (CMS/HCC) Anemia, unspecified Asymptomatic bacteriuria Chronic heart failure with preserved ejection fraction (HFpEF) ATN (acute tubular necrosis) Azotemia CKD (chronic kidney disease) stage 2, GFR 60-89 ml/min Hyperphosphatemia Metabolic acidosis Medications: Current Medications: Current Scheduled Medications[1] Current Continuous Medications[2] Physical Exam: General: no apparent distress, patient lying comfortably in bed Eyes: clear conjunctivae bilaterally, no lid lag HENT: Moist mucus membranes, atraumatic Neck: trachea midline, supple Respiratory: no increased work of breathing, equal chest rise CV: No peripheral edema Skin: No visible rash Musculoskeletal: No joint swelling, no cyanosis Neuro: Awake, alert, and appropriately conversant Psych: Appropriate mood and affect Laboratory: CBC: Results from last 7 days Lab Units 10/02/25 0611 10/01/25 0334 09/30/25 0417 WBC 10*3/uL 9.85 4.24 8.96 HEMOGLOBIN g/dL 7.9* 7.5* 6.6* HEMATOCRIT % 24.8* 23.2* 20.2* PLATELETS 10*3/uL 366 339 376* CMP: Results from last 7 days Lab Units 10/02/25 0611 10/01/25 0334 09/30/25 0417 09/29/25 1232 09/29/25 0916 SODIUM mmol/L 136 134* 135* 133* 134* POTASSIUM mmol/L 4.4 4.6 4.2 4.0 4.4 CHLORIDE mmol/L 106 101 102 99 99 CO2 mmol/L 17* 19* 20* 19* 21* BUN mg/dL 65* 62* 62* 61* 60* CREATININE mg/dL 8.64* 9.91* 9.91* 10.03* 9.77* CALCIUM mg/dL 8.1* 7.9* 7.8* 8.2* 8.1* BILIRUBIN TOTAL mg/dL -- 0.2 -- 0.5 0.4 ALKALINE PHOSPHATASE U/L -- 83 -- 91 90 ALT U/L -- 20 -- 21 21 AST U/L -- 22 -- 26 GLUCOSE mg/dL 119* 158* 107* 101* 98 LFT: AST, Plasma Date Value Ref Range Status 10/01/2025 22 10 - 50 U/L Final ALT, Plasma Date Value Ref Range Status 10/01/2025 20 10 - 50 U/L Final Alkaline Phosphatase, Plasma Date Value Ref Range Status 10/01/2025 83 40 - 115 U/L Final Total Bilirubin, Plasma Date Value Ref Range Status 10/01/2025 0.2 0.2 - 1.1 mg/dL Final Impression & Plan: Mr. Best is a 70-year-old man with a history of esophageal/gastroesophageal junction adenocarcinoma (previously treated with FLOT-D from 08/03/25-08/31/25, now on ipilimumab/nivolumab since 09/13/25) and prostatomegaly with chronic urinary retention requiring intermittent indwelling urinary catheterization under Urology care. His baseline serum creatinine ranges 0.9-1.1 mg/dL. # Non oliguric YOLI on CKD stage 2 Etiology: Concerning for checkpoint inhibitor toxicity - Receive 2 doses of ipilimumab/nivolumab since 09/13/25 - Low suspicion for postobstructive YOLI given that patient has indwelling Carmona's catheter. He had a monitored voiding trial in urology clinic. His catheter was removed for only a short period of time and then reinserted as he failed his voiding trial - ATN remains in differential due to progression of prerenal YOLI given recent onset of diarrhea decreased by mouth intake with deconditioning and recent C diff infection Baseline serum creatinine: 0.9-.1.1 Creatinine at the time of consult: 9.91 Electrolytes: Largely unremarkable Volume: Euvolemic Acid/Base: Mild acidosis Urine: Blood, protein, leukocyte esterase and nitrite; sample obtained from indwelling catheter; urine sodium 71 Imaging: Mild echogenic kidneys with decompressed bladder # Azotemia # Non gap metabolic acidosis # Hyperphosphatemia # Hypomagnesemia # Adenocarcinoma of the esophagus/gastroesophageal junction - Was previously treated with leucovorin, oxaliplatin, Taxotere, fluorouracil. Now on immunotherapyonly with nivolumab and ipilimumab. 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 It was previously discussed with the patient that the expected benefits outweigh the risks, even in the context of his recent infections, including C. difficile. -Agree with continuation of IV antibiotics for treatment of UTI. -Tentative plan for renal biopsy on Friday, 10/04, to obtain a definitive diagnosis. The patient has been consented and understands that, although this is a higher-risk procedure, the potential benefits outweigh the risks. -Continue PJP prophylaxis with atovaquone 1,500 mg orally once daily -DC PPI given concern for AIN Thank you for the opportunity to participate in the care of this patient. David Miller MD Nephrology [1] atovaquone, 1,500 mg, Oral, Daily cefTRIAXone, 2 g, Intravenous, q24h emollient, , Topical, BID famotidine, 20 mg, Oral, q12h finasteride, 5 mg, Oral, Daily heparin (porcine), 5,000 Units, Subcutaneous, q8h PATRICK mupirocin, 1 Application, Each Nostril, BID predniSONE, 80 mg, Oral, Daily sodium bicarbonate, 650 mg, Oral, TID sodium chloride, 10 mL, Intravenous, q12h tamsulosin, 0.4 mg, Oral, Daily with dinner [2] sodium chloride, 125 mL/hr, Last Rate: 125 mL/hr (10/01/25 7036) * Care Plan - Ashley Britton RN - 10/02/2025 9:00 AM EST Problem: Adult Inpatient Plan of Care Goal: Patient-Specific Goal (Individualized) Outcome: Ongoing, Progressing Flowsheets (Taken 10/02/2025899) Patient/Family-Specific Goals (Include Timeframe): Patient will remain free from all falls and injuries throughout this shift Individualized Care Needs: Safety Anxieties, Fears or Concerns: None stated Goal: Absence of Hospital-Acquired Illness or Injury Outcome: Ongoing, Progressing Intervention: Identify and Manage Fall Risk Flowsheets (Taken 10/02/2025899) Safety Promotion/Fall Prevention: lighting adjusted mobility aid in reach nonskid shoes/slippers when out of bed room organization consistent clutter-free environment maintained fall prevention program maintained assistive device/personal items within reach Intervention: Prevent and Manage VTE (Venous Thromboembolism) Risk Flowsheets (Taken 10/02/2025899) VTE Prevention/Management: SCDs (sequential compression devices) off previous patient education reinforced Intervention: Prevent Infection Flowsheets (Taken 10/02/2025899) Infection Prevention: personal protective equipment utilized rest/sleep promoted single patient room provided hand hygiene promoted environmental surveillance performed Problem: Infection Goal: Absence of Infection Signs and Symptoms Outcome: Ongoing, Progressing Intervention: Prevent or Manage Infection Flowsheets (Taken 10/02/2025899) Infection Management: aseptic technique maintained Fever Reduction/Comfort Measures: lightweight clothing lightweight bedding Isolation Precautions: precautions maintained contact Problem: Adult Inpatient Plan of Care Goal: Plan of Care Review Flowsheets (Taken 10/02/2025899) Progress: no change Outcome Evaluation: Patient understands the POC, will continue with fluids and keep checking CMP for improvement Plan of Care Reviewed With: patient spouse Goal: Optimal Comfort and Wellbeing Intervention: Monitor Pain and Promote Comfort Flowsheets (Taken 10/02/2025899) Pain Management Interventions: medication (see MAR) quiet environment facilitated Intervention: Provide Person-Centered Care Flowsheets (Taken 10/02/2025899) Trust Relationship/Rapport: choices provided questions encouraged thoughts/feelings acknowledged empathic listening provided questions answered reassurance provided * Progress Notes - Seu Malcolm MD - 10/01/2025 2:57 PM EST Daily Progress Note Summary Mr. 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 No acute overnight events. She reports no specific complaints. Reports he is able to eat and drink ROS: Gen: No F/C/R CVS: No CP. No orthopnea or PND. RES: No cough or dyspnea reported. GI: No N/V/D Objective Vitals: 09/30/25 2357 10/01/25 0312 10/01/25 0802 10/01/25 1146 BP: 101/61 99/62 97/54 110/61 BP Location: Right arm Right arm Right arm Right arm Patient Position: Lying Lying Lying Lying Pulse: 86 82 76 65 Resp: 16 16 16 14 Temp: 36.6 ??C (97.9 ??F) 36.4 ??C (97.5 ??F) 36.4 ??C (97.5 ??F) 36.4 ??C (97.5 ??F) TempSrc: Oral Oral Oral Oral SpO2: 93% 93% 94% 97% Weight: Height: BMI: Body mass index is 24.95 kg/m??. Physical Exam: General Well appearing, no acute distress Eyes PERRL, EOMI Head NC/AT ENT OP moist. Hearing grossly normal. No mucosal lesions CV RRR, S1 + S2. Murmurs: none. Pulses: 2+ pulses in all extremities RES CTAB. Non-labored breathing GI Soft. NT/ND. No peritoneal signs FRANK AAOx4. No focal deficits b/l EXT No clubbing. No cyanosis. No edema Skin Without lesions, warm and dry PSY Normal mood and affect I/O: I/O last 3 completed shifts: In: 350 (4.2 mL/kg) [Blood:350] Out: 1525 (18.3 mL/kg) [Urine:1525 (0.5 mL/kg/hr)] Weight: 83.5 kg I/O this shift: In: 400 [P.O.:400] Out: 300 [Urine:300] Labs: CBC: Results from last 7 days Lab Units 10/01/25 0334 09/30/25 0417 09/29/25 1232 WBC 10*3/uL 4.24 8.96 8.47 HEMOGLOBIN g/dL 7.5* 6.6* 7.6* HEMATOCRIT % 23.2* 20.2* 23.4* PLATELETS 10*3/uL 339 376* 442* CMP: Results from last 7 days Lab Units 10/01/25 0334 09/30/25 0417 09/29/25 1232 09/29/25 0916 SODIUM mmol/L 134* 135* 133* 134* POTASSIUM mmol/L 4.6 4.2 4.0 4.4 CHLORIDE mmol/L 101 102 99 99 CO2 mmol/L 19* 20* 19* 21* BUN mg/dL 62* 62* 61* 60* CREATININE mg/dL 9.91* 9.91* 10.03* 9.77* CALCIUM mg/dL 7.9* 7.8* 8.2* 8.1* BILIRUBIN TOTAL mg/dL 0.2 -- 0.5 0.4 ALKALINE PHOSPHATASE U/L 83 -- 91 90 ALT U/L 20 -- 21 21 AST U/L 22 -- 26 26 GLUCOSE mg/dL 158* 107* 101* 98 Medications (scheduled): Current Scheduled Medications[1] Medications (continous): Current Continuous Medications[2] Medications (PRN): Current PRN Medications[3] Assessment and Plan Mr. 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 He is receiving empiric antibiotic with ceftriaxone for possible cystitis. Decrease PO intake and will support the patient with maintenance IV fluids. We will monitor his clearance, volume status and electrolytes. Nephrology is consulted and pt is started on Steroids and medical Px -c/w Monitor renal functions This condition poses an acute threat to life/bodily function. High complexity: Acute threat to life/bodily function: GI Ca, UTI , ATN Discussed management with: Nephrology Unique labs reviewed: CBC, renal function panel with AKl, magnesium low, liver tests normal Personally reviewed: Chest x-ray showing clear lungs Adenocarcinoma of the esophagus/gastroesophageal junction: Previously treated with leucovorin, oxaliplatin, Taxotere, fluorouracil. Now on immunotherapy only with nivolumab and ipilimumab. PET-CT September 28 showed distal esophageal activity concerning for residual disease We will continue with full liquid diet The patient reports that with acute kidney injury his immunotherapy is on hold He was not tolerating chemotherapy and that is also on hold May need to consult with Oncology if he has prolonged hospitalization. We will continue with full liquid diet and will supplement with nutrition shakes due to swallow dysfunction. Continue PPI for GI acid suppression Anemia -possibly secondary to chemotherapy or iron-deficiency. Iron studies ordered Protein calorie malnutrition: - Moderate Secondary to limited diet. He previously had hypophosphatemia and hypomagnesemia due to poor nutrition. I discussed advancing his nutrition supplementation from 2 Ensure shakes per day up to 6 Ensure shakes per day. - We will continue to monitor his electrolytes We must be cautious with electrolyte replacement in the setting of his kidney dysfunction. Thyroid mass: PET scan showed activity in his thyroid We will need outpatient ultrasound and follow up with evaluation by Oncology Heart failure with preserved ejection fraction-chronic: He has peripheral edema on exam He also had echocardiogram July 2025 showing preserved LVEF at 65% and grade 1 diastolic dysfunction. Must be cautious with IV fluid administration and aggressive oral fluid intake. Blood pressure is currently a bit low which limits escalation of heart failure medications. With his acute kidney injury, I do not recommend diuretics. Venous thromboembolism prophylaxis We will use SCDs for DVT prophylaxis in the setting of his acute kidney injury Sue Malcolm MD [facility] medicine [1] atovaquone, 1,500 mg, Oral, Daily cefTRIAXone, 2 g, Intravenous, q24h emollient, , Topical, BID famotidine, 20 mg, Oral, q12h finasteride, 5 mg, Oral, Daily heparin (porcine), 5,000 Units, Subcutaneous, q8h PATRICK mupirocin, 1 Application, Each Nostril, BID predniSONE, 80 mg, Oral, Daily sodium bicarbonate, 650 mg, Oral, TID sodium chloride, 10 mL, Intravenous, q12h tamsulosin, 0.4 mg, Oral, Daily with dinner [2] [3] PRN medications: gi cocktail, loperamide, ondansetron ODT OR ondansetron, Insert peripheralIV AND Saline lock IV AND sodium chloride AND sodium chloride * Progress Notes - David Miller MD - 10/01/2025 2:26 PM EST Nephrology Progress Note Patient: Justin Best Admit Date: 09/29/2025 Reason for consult: acute kidney injury Subjective No acute events overnight. Patient states that he is doing well today. Patient denies dyspnea. Patient is tolerating his diet well. Patient denies any nausea or vomiting. Patient endorsing good urineoutput. Objective Visit Vitals BP 110/61 (BP Location: Right arm, Patient Position: Lying) Pulse 65 Temp 36.4 ??C (97.5 ??F) (Oral) Resp 14 Ht 1.829 m (6') Wt 83.5 kg (184 lb) SpO2 97% BMI 24.95 kg/m?? Smoking Status Never BSA 2.06 m?? Temp: [36.4 ??C (97.5 ??F)-37.4 ??C (99.3 ??F)] 36.4 ??C (97.5 ??F) Heart Rate: [65-103] 65 Resp: [14-20] 14 BP: (97-129)/(48-79) 110/61 Problem List Principal Problem: Obstructive nephropathy Active Problems: Benign prostatic hyperplasia without lower urinary tract symptoms Adenocarcinoma of gastroesophageal junction Thyroid mass Dysphagia Hypomagnesemia Hypophosphatemia Protein-calorie malnutrition, moderate (CMS/HCC) Anemia, unspecified Asymptomatic bacteriuria Chronic heart failure with preserved ejection fraction (HFpEF) ATN (acute tubular necrosis) Azotemia CKD (chronic kidney disease) stage 2, GFR 60-89 ml/min Hyperphosphatemia Metabolic acidosis Medications: Current Medications: Current Scheduled Medications[1] Current Continuous Medications[2] Physical Exam: General: no apparent distress, patient lying comfortably in bed Eyes: clear conjunctivae bilaterally, no lid lag HENT: Moist mucus membranes, atraumatic Neck: trachea midline, supple Respiratory: no increased work of breathing, equal chest rise CV: No peripheral edema Skin: No visible rash Musculoskeletal: No joint swelling, no cyanosis Neuro: Awake, alert, and appropriately conversant Psych: Appropriate mood and affect Laboratory: CBC: Results from last 7 days Lab Units 10/01/25 0334 09/30/25 0417 09/29/25 1232 WBC 10*3/uL 4.24 8.96 8.47 HEMOGLOBIN g/dL 7.5* 6.6* 7.6* HEMATOCRIT % 23.2* 20.2* 23.4* PLATELETS 10*3/uL 339 376* 442* CMP: Results from last 7 days Lab Units 10/01/25 0334 09/30/25 0417 09/29/25 1232 09/29/25 0916 SODIUM mmol/L 134* 135* 133* 134* POTASSIUM mmol/L 4.6 4.2 4.0 4.4 CHLORIDE mmol/L 101 102 99 99 CO2 mmol/L 19* 20* 19* 21* BUN mg/dL 62* 62* 61* 60* CREATININE mg/dL 9.91* 9.91* 10.03* 9.77* CALCIUM mg/dL 7.9* 7.8* 8.2* 8.1* BILIRUBIN TOTAL mg/dL 0.2 -- 0.5 0.4 ALKALINE PHOSPHATASE U/L 83 -- 91 90 ALT U/L 20 -- 21 21 AST U/L 22 -- 26 26 GLUCOSE mg/dL 158* 107* 101* 98 LFT: AST, Plasma Date Value Ref Range Status 10/01/2025 22 10 - 50 U/L Final ALT, Plasma Date Value Ref Range Status 10/01/2025 20 10 - 50 U/L Final Alkaline Phosphatase, Plasma Date Value Ref Range Status 10/01/2025 83 40 - 115 U/L Final Total Bilirubin, Plasma Date Value Ref Range Status 10/01/2025 0.2 0.2 - 1.1 mg/dL Final Impression & Plan: Mr. Best is a 70-year-old man with a history of esophageal/gastroesophageal junction adenocarcinoma (previously treated with FLOT-D from 08/03/25-08/31/25, now on ipilimumab/nivolumab since 09/13/25) and prostatomegaly with chronic urinary retention requiring intermittent indwelling urinary catheterization under Urology care. His baseline serum creatinine ranges 0.9-1.1 mg/dL. # Non oliguric YOLI on CKD stage 2 Etiology: Concerning for checkpoint inhibitor toxicity - Receive 2 doses of ipilimumab/nivolumab since 09/13/25 - Low suspicion for postobstructive YOLI given that patient has indwelling Carmona's catheter. He had a monitored voiding trial in urology clinic. His catheter was removed for only a short period of time and then reinserted as he failed his voiding trial - ATN remains in differential due to progression of prerenal YOLI given recent onset of diarrhea decreased by mouth intake with deconditioning and recent C diff infection Baseline serum creatinine: 0.9-.1.1 Creatinine at the time of consult: 9.91 Electrolytes: Largely unremarkable Volume: Euvolemic Acid/Base: Mild acidosis Urine: Blood, protein, leukocyte esterase and nitrite; sample obtained from indwelling catheter; urine sodium 71 Imaging: Mild echogenic kidneys with decompressed bladder # Azotemia # Non gap metabolic acidosis # Hyperphosphatemia # Hypomagnesemia # Adenocarcinoma of the esophagus/gastroesophageal junction - Was previously treated with leucovorin, oxaliplatin, Taxotere, fluorouracil. Now on immunotherapyonly with nivolumab and ipilimumab. 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 It was previously discussed with the patient that the expected benefits outweigh the risks, even in the context of his recent infections, including C. difficile. -Agree with continuation of IV antibiotics for treatment of UTI. -Tentative plan for renal biopsy on 10/04, to obtain a definitive diagnosis. The patient has been consented and understands that, although this is a higher-risk procedure, the potential benefits outweigh the risks. -Continue PJP prophylaxis with atovaquone 1,500 mg orally once daily -DC PPI given concern for AIN Thank you for the opportunity to participate in the care of this patient. David Miller MD Nephrology [1] atovaquone, 1,500 mg, Oral, Daily cefTRIAXone, 2 g, Intravenous, q24h emollient, , Topical, BID famotidine, 20 mg, Oral, q12h finasteride, 5 mg, Oral, Daily heparin (porcine), 5,000 Units, Subcutaneous, q8h PATRICK mupirocin, 1 Application, Each Nostril, BID predniSONE, 80 mg, Oral, Daily sodium bicarbonate, 650 mg, Oral, TID sodium chloride, 10 mL, Intravenous, q12h tamsulosin, 0.4 mg, Oral, Daily with dinner [2] * Care Plan - Cornel Barrett RN - 10/01/2025 12:31 AM EST Problem: Adult Inpatient Plan of Care Goal: Plan of Care Review Outcome: Ongoing, Progressing Flowsheets (Taken 10/01/202528) Progress: no change Outcome Evaluation: patient was able to recieve all scheduled medications on time, questions answered, and patient requests being worked on. Plan of Care Reviewed With: patient Goal: Patient-Specific Goal (Individualized) Outcome: Ongoing, Progressing Flowsheets (Taken 09/30/20251999) Patient/Family-Specific Goals (Include Timeframe): pt will receive all scheduled medications on time, receive a patient bed controller, and bed president & founder before end of shift Individualized Care Needs: minor assistance with ADLs, supplamental fluids, supportive care Anxieties, Fears or Concerns: none stated Goal: Absence of Hospital-Acquired Illness or Injury Outcome: Ongoing, Progressing Intervention: Identify and Manage Fall Risk Flowsheets (Taken 10/01/202528) Safety Promotion/Fall Prevention: activity supervised clutter-free environment maintained Intervention: Prevent Skin Injury Flowsheets (Taken 10/01/202528) Body Position: weight shifting Skin Protection: hydrocolloids used Intervention: Prevent and Manage VTE (Venous Thromboembolism) Risk Flowsheets (Taken 10/01/202528) VTE Prevention/Management: bilateral SCDs (sequential compression devices) off Intervention: Prevent Infection Flowsheets (Taken 10/01/202528) Infection Prevention: hand hygiene promoted rest/sleep promoted Goal: Optimal Comfort and Wellbeing Outcome: Ongoing, Progressing Intervention: Monitor Pain and Promote Comfort Flowsheets (Taken 10/01/202528) Pain Management Interventions: care clustered Intervention: Provide Person-Centered Care Flowsheets (Taken 10/01/202528) Trust Relationship/Rapport: care explained choices provided questions answered questions encouraged Problem: Infection Goal: Absence of Infection Signs and Symptoms Outcome: Ongoing, Progressing Intervention: Prevent or Manage Infection Flowsheets (Taken 10/01/2025 002) Infection Management: aseptic technique maintained Fever Reduction/Comfort Measures: lightweight bedding lightweight clothing Isolation Precautions: precautions maintained Problem: Self-Care Deficit Goal: Improved Ability to Complete Activities of Daily Living Outcome: Ongoing, Progressing Intervention: Promote Activity and Functional [place] Flowsheets (Taken 10/01/202528) Activity Assistance Provided: assistance, stand-by Adaptive Equipment Use: used with assistance Self-Care Promotion: adaptive equipment use encouraged * Progress Notes - Sue Malcolm MD - 09/30/2025 3:50 PM EST Daily Progress Note Summary Mr. 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 No acute overnight events. She reports no specific complaints. I explained the diagnosis and treatment plan and pt verbalized understanding. All of their questions were answered. ROS: Gen: No F/C/R CVS: No CP. No orthopnea or PND. RES: No cough or dyspnea reported. GI: No N/V/D Objective Vitals: 09/30/25 0927 09/30/25 1151 09/30/25 1401 09/30/25 1416 BP: 120/67 110/70 111/70 112/67 BP Location: Patient Position: Pulse: 95 94 99 91 Resp: Temp: 36.8 ??C (98.3 ??F) 36.8 ??C (98.2 ??F) 36.9 ??C (98.4 ??F) 36.8 ??C (98.3 ??F) TempSrc: SpO2: 98% 97% Weight: Height: BMI: Body mass index is 24.95 kg/m??. Physical Exam: General Well appearing, no acute distress Eyes PERRL, EOMI Head NC/AT ENT OP moist. Hearing grossly normal. No mucosal lesions CV RRR, S1 + S2. Murmurs: none. Pulses: 2+ pulses in all extremities RES CTAB. Non-labored breathing GI Soft. NT/ND. No peritoneal signs FRANK AAOx4. No focal deficits b/l EXT No clubbing. No cyanosis. No edema Skin Without lesions, warm and dry PSY Normal mood and affect I/O: I/O last 3 completed shifts: In: - (0 mL/kg) Out: 575 (6.9 mL/kg) [Urine:575 (0.2 mL/kg/hr)] Weight: 83.5 kg No intake/output data recorded. Labs: CBC: Results from last 7 days Lab Units 09/30/2541609/29/25 1232 09/29/25 0916 WBC 10*3/uL 8.96 8.47 9.73 HEMOGLOBIN g/dL 6.6* 7.6* 7.5* HEMATOCRIT % 20.2* 23.4* 23.1* PLATELETS 10*3/uL 376* 442* 463* CMP: Results from last 7 days Lab Units 09/30/2541609/29/25 1232 09/29/25 0916 SODIUM mmol/L 135* 133* 134* POTASSIUM mmol/L 4.2 4.0 4.4 CHLORIDE mmol/L 102 99 99 CO2 mmol/L 20* 19* 21* BUN mg/dL 62* 61* 60* CREATININE mg/dL 9.91* 10.03* 9.77* CALCIUM mg/dL 7.8* 8.2* 8.1* BILIRUBIN TOTAL mg/dL -- 0.5 0.4 ALKALINE PHOSPHATASE U/L -- 91 90 ALT U/L -- 21 21 AST U/L -- 26 26 GLUCOSE mg/dL 107* 101* 98 Medications (scheduled): Current Scheduled Medications[1] Medications (continous): Current Continuous Medications[2] Medications (PRN): Current PRN Medications[3] Assessment and Plan Mr. 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 He is receiving empiric antibiotic with ceftriaxone for possible cystitis. Decrease PO intake and will support the patient with maintenance IV fluids. We will monitor his clearance, volume status and electrolytes. Nephrology is consulted and pt is started on Steroids and medical Px -c/w Monitor renal functions This condition poses an acute threat to life/bodily function. High complexity: Acute threat to life/bodily function: GI Ca, UTI , ATN Discussed management with: Nephrology Unique labs reviewed: CBC, renal function panel with AKl, magnesium low, liver tests normal Personally reviewed: Chest x-ray showing clear lungs Adenocarcinoma of the esophagus/gastroesophageal junction: Previously treated with leucovorin, oxaliplatin, Taxotere, fluorouracil. Now on immunotherapy only with nivolumab and ipilimumab. PET-CT September 28 showed distal esophageal activity concerning for residual disease We will continue with full liquid diet The patient reports that with acute kidney injury his immunotherapy is on hold He was not tolerating chemotherapy and that is also on hold May need to consult with Oncology if he has prolonged hospitalization. We will continue with full liquid diet and will supplement with nutrition shakes due to swallow dysfunction. Continue PPI for GI acid suppression Anemia -possibly secondary to chemotherapy or iron-deficiency. Iron studies ordered Protein calorie malnutrition: - Moderate Secondary to limited diet. He previously had hypophosphatemia and hypomagnesemia due to poor nutrition. I discussed advancing his nutrition supplementation from 2 Ensure shakes per day up to 6 Ensure shakes per day. - We will continue to monitor his electrolytes We must be cautious with electrolyte replacement in the setting of his kidney dysfunction. Thyroid mass: PET scan showed activity in his thyroid We will need outpatient ultrasound and follow up with evaluation by Oncology Heart failure with preserved ejection fraction-chronic: He has peripheral edema on exam He also had echocardiogram July 2025 showing preserved LVEF at 65% and grade 1 diastolic dysfunction. Must be cautious with IV fluid administration and aggressive oral fluid intake. Blood pressure is currently a bit low which limits escalation of heart failure medications. With his acute kidney injury, I do not recommend diuretics. Venous thromboembolism prophylaxis We will use SCDs for DVT prophylaxis in the setting of his acute kidney injury Sue Malcolm MD [facility] medicine [1] atovaquone, 1,500 mg, Oral, Daily cefTRIAXone, 2 g, Intravenous, q24h [START ON 10/01/2025] famotidine, 20 mg, Oral, q12h finasteride, 5 mg, Oral, Daily heparin (porcine), 5,000 Units, Subcutaneous, q8h PATRICK magnesium sulfate, 4 g, Intravenous, Once mupirocin, 1 Application, Each Nostril, BID predniSONE, 80 mg, Oral, Daily sodium bicarbonate, 650 mg, Oral, TID sodium chloride, 10 mL, Intravenous, q12h tamsulosin, 0.4 mg, Oral, Daily with dinner [2] sodium chloride, 75 mL/hr, Last Rate: 75 mL/hr (09/30/25 1225) sodium chloride, 125 mL/hr, Last Rate: 125 mL/hr (09/30/25 1228) [3] PRN medications: loperamide, ondansetron ODT OR ondansetron, Insert peripheral IV AND Saline lock IV AND sodium chloride AND sodium chloride * Progress Notes - Ilene Fairbanks RN - 09/30/2025 1:05 PM EST Case Management Adult Initial Progress Note Justin Best 70 y.o. male CSN: [id number] Admission: 09/29/2025 11:55 AM Primary Problem: Obstructive nephropathy Cut Plug Packer reviewed chart from 09/04 admission to complete this Initial Case Management Assessment. PCP: Darius Ken MD Emergency Contact: Extended Emergency Contact Information Primary Emergency Contact: Kristen Best Address: [address] [place] [address] [facility] Mobile Relation: Spouse Preferred language: Frisian Disability Case Manager needed? No Secondary Emergency Contact: Ricardo Best Mobile Relation: Son Preferred language: Frisian Disability Case Manager needed? No Insurance: Primary Visit Coverage Payer Plan Sponsor Code Group Number Group Name [facility] MEDICARE [facility] MEDICARE REPLACEMENT [id number] Primary Visit Coverage Subscriber Subscriber ID Subscriber Name Subscriber N Subscriber Address [id number] Justin Best [id number] [address] [place] [address] Patient information: Primary Caregiver: Self Support System: Immediate family Daily Living Activities: Functional Status: Independent Living Arrangements: Spouse/Significant other Type of Residence: Private residence [address] [facility] [address] Smoker in the Home?: No Current DME: Equipment Currently Used at Home: none Rolling Walker- [employer] Wheelchair ([employer] equipment) BSC and Showerchair Income Information: Income Source: Unknown Income/Expense Information: Income exceeds expenses Current Resources Utilized: None Housing Circumstances-Z Codes: Housing Circumstances (select all that apply): None Applicable Patient Referred to: Financial Resources: (N/A) Community Resources: (N/A) Anticipated Discharge Date: TBD Patient's Discharge Goal: Return Home with family Assistance Available at Discharge: Self/Family Discharge Transport: Family Follow Up Transport: Self/Family Home Health / Home Infusion / Outpatient Dialysis Services: Denied Living Will/Advance Directive/Power of Timing Inspector /Guardian: Denied Additional Comments: POC and discharge plans were discussed with 5 treatment team during morning rounds. Per MD attending, pt is not medically ready for discharge today. RNCM reviewed chart from previous admission to complete IA. Pt is a 70 y/o male with a pMHx of adenocarcinoma of the esophagus/gastroesophageal junction who also has a history of prostatomegaly with previous indwelling urinary catheter monitored by Urology. PT/OT pending. 1u PRBC today. Will continue to follow and assist with all discharge needs. Ilene Fairbanks RN [facility] Cut Plug Packer Secure Chat Preferred [phone] * Consults - Celine Riggs MBBS - 09/30/2025 11:01 AM ESTAssociated Order(s): IP CONSULT TO NEPHROLOGY Nephrology Consult Note Patient: Justin Best Admit Date: 09/29/2025 Date of Consult: 09/30/2025 Time of Consult: 11:01 AM Requesting Attending: Shannon Murrell MD Reason for Consult: YOLI HPI: 70-year-old man with a history of esophageal/gastroesophageal junction adenocarcinoma (previously treated with FLOT-D from 08/03/25-08/31/25, now on ipilimumab/nivolumab since 09/13/25) and prostatomegaly with chronic urinary retention requiring intermittent indwelling urinary catheterization under [facility] care. His baseline serum creatinine ranges 0.9-1.1 mg/dL. He recently underwent a PET/CT, reviewed by Oncology, and subsequent routine laboratory monitoring revealed a severe acute kidney injury, with a peak creatinine of 10 mg/dL. Around the same time, Urology attempted a voiding trial with removal of his Carmona catheter; however, he was found to have significant post-void residual and the indwelling urinary catheter was reinserted. He was previously hospitalized from 08/26-09/12/25 for C. difficile infection, during which he completed fidaxomicin (last dose 09/07/25) and was transitioned per Infectious Disease recommendations tooral vancomycin beginning 09/07/25 for a planned course through 09/20/25. Stool assays were positive for C. difficile toxin and DNA. He currently presents with elevated creatinine of 10. Nephrology has been consulted for further evaluation and management of YOLI ROS: ROS was obtained in 14 points [...] on file Tobacco Use Smoking status: Never Passive exposure: Never Smokeless tobacco: Never Vaping Use Vaping [...] Connections: Unknown (08/19/2023) Received from [facility] Family and Community Support Help with [...] Continuous Medications[8] Physical Exam: Visit Vitals BP 120/67 Pulse 95 Temp 36.8 ??C (98.3 ??F) Resp 20 Ht 1.829 m (6') Wt 83.5 kg (184 lb) SpO2 98% BMI 24.95 kg/m?? Smoking Status Never BSA 2.06 m?? General: Alert, no acute distress, conversant, well-nourished HEENT: No temporal wasting, EOMI, no scleral icterus, wearing glasses Neck: Supple, normal range of motion Cardiovascular: Normal S1-S2, regular rhythm, normal rate, no rub, no gallop Pulmonary: Clear to auscultation bilaterally, no wheezes, rales or rhonchi, on room air. Good chestexcursion Gastrointestinal: Abdomen soft, nontender, nondistended Genitourinary: No Carmona catheter Musculoskeletal: Good muscle tone, good range of motion, 3+ bilateral lower extremity edema Neuro: Alert, oriented, no focal neurologic deficits, affect is calm, thoughts are fluent Derm: Skin is clean, dry, intact, no wounds or lesions Laboratory: CBC: Results from last 7 days Lab Units 09/30/257 09/29/25 1232 09/29/25 0916 WBC 10*3/uL 8.96 8.47 9.73 HEMOGLOBIN g/dL 6.6* 7.6* 7.5* HEMATOCRIT % 20.2* 23.4* 23.1* PLATELETS 10*3/uL 376* 442* 463* CMP: Results from last 7 days Lab Units 09/30/257 09/29/25 1232 09/29/25 0916 SODIUM mmol/L 135* 133* 134* POTASSIUM mmol/L 4.2 4.0 4.4 CHLORIDE mmol/L 102 99 99 CO2 mmol/L 20* 19* 21* BUN mg/dL 62* 61* 60* CREATININE mg/dL 9.91* 10.03* 9.77* CALCIUM mg/dL 7.8* 8.2* 8.1* BILIRUBIN TOTAL mg/dL -- 0.5 0.4 ALKALINE PHOSPHATASE U/L -- 91 90 ALT U/L -- 21 21 AST U/L -- 26 26 GLUCOSE mg/dL 107* 101* 98 Impression & Plan: Assessment: # Non oliguric YOLI on CKD stage 2 Etiology: Concerning for checkpoint inhibitor toxicity - Receive 2 doses of ipilimumab/nivolumab since 09/13/25 - Low suspicion for postobstructive YOLI given that patient has indwelling Carmona's catheter. He had a monitored voiding trial in urology clinic. His catheter was removed for only a short period of time and then reinserted as he failed his voiding trial - ATN remains in differential due to progression of prerenal YOLI given recent onset of diarrhea decreased by mouth intake with deconditioning and recent C diff infection Baseline serum creatinine: 0.9-.1.1 Creatinine at the time of consult: 9.91 Electrolytes: Largely unremarkable Volume: Euvolemic Acid/Base: Mild acidosis Urine: Blood, protein, leukocyte esterase and nitrite; sample obtained from indwelling catheter; urine sodium 71 Imaging: Mild echogenic kidneys with decompressed bladder # Azotemia # Non gap metabolic acidosis # Hyperphosphatemia # Hypomagnesemia # Adenocarcinoma of the esophagus/gastroesophageal junction - Was previously treated with leucovorin, oxaliplatin, Taxotere, fluorouracil. Now on immunotherapyonly with nivolumab and ipilimumab. 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 -Recommend initiating prednisone 80 mg daily starting today. Discussed with the patient that the expected benefits outweigh the risks, even in the context of his recent infections, including C. difficile. -Agree with blood transfusion and continuation of IV antibiotics for treatment of UTI. -Tentative plan for renal biopsy on 10/04, to obtain a definitive diagnosis. The patient has been consented and understands that, although this is a higher-risk procedure, the potential benefits outweigh the risks. -Recommend PCP prophylaxis with atovaquone 1,500 mg orally once daily -DC PPI given concern for AIN Thank you for involving us in the care of this patient. Please don???t hesitate to reach out via [employer] Secure Chat with any questions or concerns. Celine Riggs MD Nephrology/Critical Care Medicine Fellow PGY 4 ^This note was generated using medical dictation software. Please excuse any errors in syntax or improper insertion of similarly-sounding words or phrases. If there are any areas of the note that do not make sense, please contact me directly for clarification. [1] Past Medical History: Diagnosis Date Blood urine 2023 Cancer (CMS/HCC) 2024 current diagnosis Esophageal cancer june 2025 Hypertension 1999 Kidney stone Skin cancer 2004 Stomach cancer ([facility] june 2025 Urinary retention [2] Patient Active Problem List Diagnosis Stage 3a chronic kidney disease (CMS/HCC) Nephrolithiasis Essential hypertension Benign prostatic hyperplasia without lower urinary tract symptoms Adenocarcinoma of gastroesophageal junction Epigastric pain Thyroid mass Sepsis (CMS/HCC) Neutropenic fever (CMS/HCC) Dysphagia Upper respiratory disease Obstructive nephropathy Hypomagnesemia Hypophosphatemia Protein-calorie malnutrition, moderate (CMS/HCC) Anemia, unspecified Asymptomatic bacteriuria Chronic heart failure with preserved ejection fraction (HFpEF) [3] Past Surgical History: Procedure Laterality Date APPENDECTOMY 2020 BACK SURGERY 2001 CHOLECYSTECTOMY 1985 COLONOSCOPY 2023 GALLBLADDER SURGERY 1998 ORTHOPEDIC SURGERY 2000 back surgery [4] Family History Problem Relation Name Age of Onset Cancer Father Heart failure Mother 80 - 99 [5] Allergies Allergen Reactions Oxycodone Hallucinations Penicillins Unknown - Patient states they do not know rxn details Childhood allergy, thinks it was maybe a rash, but isn't sure [6] Current Facility-Administered Medications: cefTRIAXone (Rocephin) 2 g in sodium chloride 0.9% 100 mL IVPB (vial adapter required), 2 g, Intravenous, q24h, Shannon Murrell MD finasteride (Proscar) tablet 5 mg, 5 mg, Oral, Daily, Shannon Murrell MD, 5 mg at 09/30/25 0978 heparin (porcine) injection 5,000 Units, 5,000 Units, Subcutaneous, q8h PATRICK, Sue Malcolm MD loperamide (Imodium A-D) tablet 2 mg, 2 mg, Oral, 4x daily PRN, Shannon Murrell MD magnesium sulfate IVPB 4 g, 4 g, Intravenous, Once, Sue Malcolm MD mupirocin (Bactroban) 2 % ointment 1 Application, 1 Application, Each Nostril, BID, Shannon Murrell MD, 1 Application at 09/30/25 0954 ondansetron ODT (Zofran-ODT) disintegrating tablet 4 mg, 4 mg, Oral, q6h PRN OR ondansetron (Zofran) injection 4 mg, 4 mg, Intravenous, q6h PRN, Shannon Murrell MD, 4 mg at 09/29/25 1632 pantoprazole (Protonix) EC tablet 40 mg, 40 mg, Oral, Daily, Shannon Murrell MD, 40 mg at 09/30/25 0953 sodium bicarbonate tablet 650 mg, 650 mg, Oral, TID, Shannon Murrell MD, 650 mg at 09/30/25 0954 Insert peripheral IV, , , Once AND Saline lock IV, , , Once AND sodium chloride 0.9 % flush10 mL, 10 mL, Intravenous, q12h, 10 mL at 09/30/25 0409 AND sodium chloride 0.9 % flush 10 mL, 10 mL, Intravenous, PRN, Shannon Murrell MD sodium chloride 0.9 % infusion, 75 mL/hr, Intravenous, Continuous, Shannon Murrell MD, Last Rate:75 mL/hr at 09/29/25 1818, 75 mL/hr at 09/29/25 1818 sodium chloride 0.9 % infusion, 125 mL/hr, Intravenous, Continuous, Sue Malcolm MD tamsulosin (Flomax) 24 hr capsule 0.4 mg, 0.4 mg, Oral, Daily with dinner, Shannon Murrell MD, 0.4 mg at 09/29/25 1817 Current Outpatient Medications: famotidine (Pepcid) 20 MG tablet, Take 1 tablet by mouth daily., Disp: , Rfl: finasteride (Proscar) 5 MG tablet, Take 1 tablet by mouth daily. Do not crush, chew, or split. Pt asking about refill, Disp: 30 tablet, Rfl: 3 pantoprazole (Protonix) 40 MG EC tablet, Take 1 tablet by mouth daily. Do not crush, chew, or split. Pt asking about refill, Disp: 30 tablet, Rfl: 3 [7] cefTRIAXone, 2 g, Intravenous, q24h finasteride, 5 mg, Oral, Daily heparin (porcine), 5,000 Units, Subcutaneous, q8h PATRICK magnesium sulfate, 4 g, Intravenous, Once mupirocin, 1 Application, Each Nostril, BID pantoprazole, 40 mg, Oral, Daily sodium bicarbonate, 650 mg, Oral, TID sodium chloride, 10 mL, Intravenous, q12h tamsulosin, 0.4 mg, Oral, Daily with dinner [8] sodium chloride, 75 mL/hr, Last Rate: 75 mL/hr (09/29/251817) sodium chloride, 125 mL/hr Cosigned by Kirk Villatoro MD at 09/30/2025 2:32 PM EST Associated attestation - Kirk Villatoro MD - 09/30/2025 2:32 PM EST I saw and evaluated the patient with the resident/fellow. I discussed the case with the resident/fellow and agree with the findings and plan as documented. * Progress Notes - Elie Canchola - 09/30/2025 10:39 AM EST Occupational Therapy Evaluation Patient Name: Justin Best Today's Date: 09/30/2025 Total Treatment Minutes: 44 OT Discharge Recommendations: Home with assistance, Outpatient PT Equipment Recommended: Rollator History Justin Bset is 70 y.o. male admitted 09/29/2025 for work-up of Obstructive nephropathy. Problem List Active Hospital Problems Diagnosis Date Noted Obstructive nephropathy 09/29/2025 Hypomagnesemia 09/29/2025 Hypophosphatemia 09/29/2025 Protein-calorie malnutrition, moderate (CMS/HCC) 09/29/2025 Anemia, unspecified 09/29/2025 Asymptomatic bacteriuria 09/29/2025 Chronic heart failure with preserved ejection fraction (HFpEF) 09/29/2025 Dysphagia 09/14/2025 Thyroid mass 08/26/2025 Adenocarcinoma of gastroesophageal junction 07/20/2025 Benign prostatic hyperplasia without lower urinary tract symptoms 12/31/2024 Past Medical History Patient has a past medical history of Blood urine (2023), Cancer (CMS/HCC) (2024), Esophageal cancer (june 2025), Hypertension (1999), Kidney stone, Skin cancer (2004), Stomach cancer (CMS/HCC) (june 2025), and Urinary retention. Past Surgical History Patient has a past surgical history that includes Back surgery (2001); Gallbladder surgery (1998); Appendectomy (2020); Cholecystectomy (1984); Colonoscopy (2023); and orthopedic surgery (2000). Precautions Medical Precautions: Fall precautions Subjective I feel pretty good, I was suppose to start outpatient PT next Friday. Participants in Care Family/Caregiver Present: Yes Family/Caregiver: Spouse Disability Case Manager: Not Applicable Presentation Oxygen Therapy: None (Room air) Lines and Tubes: Telemetry Urethral Catheter Other (Comment) 22 Fr. (Active) Single Lumen Implantable Port 07/29/25 Right Chest (Active) Pre-Session: Supine, Head of bed elevated, Lines intact Pre-Session Comments: RN and pt agreeable to therapy session Post-Session: Supine, Head of bed elevated, RN notified, Lines intact, Call light in reach Post-Session Comments: Pt positioned for comfort with all needs met and within reach. 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 Pt stated he is suppose to start outpatient PT Friday10/03/2025, subject to change Prior Level of Function Receives Help From: No assist required prior to admission ( has recently been helping with socks) Level of Mobility: Ambulatory- household only (goes out to MD appts) Mobility [place]: Independent gait with device (uses RW bc he gets light headed) History of Falls: No ADL Performance: Independent Patient/Family Goals Statement To return home and start outpatient therapy Objective Pain No pain reported Delirium Screening RASS: Alert and calm Confusion Assessment Method-ICU (CAM-ICU/PCAM-ICU) Feature 3: Altered Level of Consciousness: Negative Cognition Overall Cognitive Status: Within Functional Limits Arousal/Alertness: Appropriate responses to stimuli Mood/Behavior: Alert Orientation Level: Oriented X4 Single Step Commands: Consistently Multi-Step Commands: Consistently Method of Communication: Verbal Vision - Basic Assessment Patient Visual Report: glasses Right Upper Extremity Examination RUE ROM Assessment RUE Assessment: Within Functional Limits Manual Muscle Testing - RUE: Within functional limits Sensation Light Touch: Right Upper Extremity: Intact Left Upper Extremity Examination LUE ROM Assessment LUE Assessment: Within Functional Limits Manual Muscle Testing - LUE: Within functional limits Sensation Light Touch: Left Upper Extremity: Intact Right Lower Extremity Examination RLE ROM Assessment RLE Assessment: Within Functional Limits Manual Muscle Testing - RLE: Within functional limits Sensation Light Touch: Right Lower Extremity: Intact Left Lower Extremity Examination LLE ROM Assessment LLE Assessment: Within Functional Limits Manual Muscle Testing: Within functional limits Sensation Light Touch: Left Lower Extremity: Intact Bed Mobility Bed Mobility Exam: Supine to Sit Level of [place]: Stand-by assist Physical/Nonphysical Assist: Verbal Cues, Minimal cues, HOB elevated Bed Mobility Exam: Sit to Supine Level of [place]: Stand-by assist Physical/Nonphysical Assist: Verbal Cues, Minimal cues, HOB elevated Transfers Transfer Interventions: Transfers performed to/from EOB. Verbal cues provided for hand/foot positioning and appropriate use of RW Transfer Exam: Sit to stand Level of [place]: Stand-by assist Physical/Nonphysical Assist: Verbal Cues, Minimal cues, Set-up required Assistive Device: Walker, rolling Transfer Exam: Stand to Sit Level of [place]: Stand-by assist Physical/Nonphysical Assist: Verbal Cues, Minimal cues, Set-up required Assistive Device: Walker, rolling Toilet Transfer Level of [place]: (pt reports that he has used the toilet in ED with not issues or concerns atthis time) Balance Postural Appearance Posture: Stooped posture, Forward head, Rounded shoulders Static Sitting Balance Static Sitting-Balance Support: Right upper extremity support, Left upper extremity support, Feet supported Static Sitting-Level of Assistance: Standby assist Stating Sitting - Interventions: Sitting EOB Dynamic Sitting Balance Dynamic Sitting-Balance Support: Right upper extremity support, Left upper extremity support, Feet supported Dynamic Sitting-Balance: Lateral weight shifts, Anterior/Posterior weight shifts Level of Assistance: Standby assisst Dynamic Sitting - Interventions: Sitting EOB Static Standing Balance Static Standing-Balance Support: Right upper extremity support, Left upper extremity support Static Standing-Level of Assistance: Standby assist Static Standing - Interventions: standing w RW Dynamic Standing Balance Dynamic Standing-Balance Support: Right upper extremity support, Left upper extremity support Dynamic Standing-Balance: Lateral weight shifts, Anterior/Posterior weight shifts Dynamic Standing Level of Assistance: Standby assist Standardized Assessments [facility] 6-Click Daily Activities Help from Other: Don/Doff Regular Lower Body Clothings: None Help From Other: Bathing: Little Help From Other: Toileting: None Help From Other: Don/Doff Upper Body Clothings: None Help From Other: Grooming: None Help From Other: Eating Meals: None [facility] 6 Click - Daily Activities Score: 23 Self Care Intervention 29 mins Pt benefited from skilled occupational therapy interventions including: Monitoring of vitals to ensure activity tolerance - pt with no s/s of dizziness while in hospital (however did experience s/s at home) BP was monitored with positional changes. Supine 112/69(80), sitting 100/64(75), standing 91/67(77), after functional mobility 91/69(76) Min verbal and tactile cues to facilitate improved body mechanics and safety during functional tasks Provision of increased time frames to support optimal level of pt participation Task/activity modification with grading as needed to achieve safety while also providing appropriate functional challenge- pt required seated rest break after mobility reporting RPE 3/10 with mild SOA noted Environmental set-up to ensure safety and accessibility to all needed areas of treatment space Pt participated in OT session with focus on improving standing tolerance and increased functional mobility to support participation in functional ADL routines. Pt completed bed mobility and sit to stand from EOB with stand by assistance and min verbal cues for compensatory strategies. Pt tolerated f unctional mobility task at hallway level with RW and close SBA to assess mobility and endurance with close monitoring for vitals and safety during tasks. OT provided additional verbal cues for posture corrections, body mechanics and energy conservation to facilitate improvement with gait mechanics.Pt completed hallway functional mobility with SBA and thoracic RW to provide additional UE support.Pt returned bed level with fatigue noted at EOS. Assessment Pt tolerated therapy well with no adverse reaction s/s. Pt presents with decreased activity tolerance, and generalized weakness impacting independence and safety with ADLS and functional mobility. Atbaseline, pt was independent, however has been experiencing dizziness with orthostatic BPs increasing fall risk. Pt's strengths include intact cognition, supportive family, and motivation to participate. Pt would benefit from continued skilled OT while in hospital to address mentioned deficits including family education. Recommend d/c to home with assist and continue plan for Outpatient PT to maximize functional independence and safety to resume PLOF. OT Findings: Impaired ADL performance, Impaired IADL performance, Decreased endurance/ventilation/gas exchange Evaluation/Treatment Tolerance: Patient limited by fatigue Rehab Potential: Good, to achieve stated therapy goals Eval Complexity Occupational Profile: Expanded review of medical/therapy records and additional review of physical,cognitive, or psychosocial history Performance Deficits: Activities of daily living (ADLs), Instrumental activities of daily living (IADLs), Habits, Routines, Roles Clinical Decision Making: Moderate Overall Eval complexity: Moderate OT Recommendations Discharge Destination: Home with assistance, Outpatient PT Discharge Equipment: Rollator Plan Continue established OT plan of care for progress on functional goals and return to prior level of function. Planned OT Interventions ADL retraining, IADL retraining, Strengthening, Functional mobility OT Frequency 1 - 3 times per week OT Duration 2 weeks Goals OT GOAL DETAILS Time Frame OT Goal 1: Pt will tolerate standing at sink >10 to complete grooming task with Mod I with no s/s of SOA 2 weeks OT Goal 2: Pt will verbalized 4/4 energy conservation strategies with mod I in 2/2 sessions 2 weeks OT Goal 3: Pt will completed HEP for UB strengthening with mod I in 2/2 sessions 2 weeks Written by Elie Canchola on 09/30/25 at 2:25 PM. * Progress Notes - Dwayne Murcia - 09/30/2025 10:38 AM EST Physical Therapy Evaluation Patient Name: Justin Best Today's Date: 09/30/2025 PT Discharge Recommendations: Home with assistance, Outpatient PT Equipment Recommended: Rollator History Justin Best is 70 y.o. male admitted 09/29/2025 for work-up of Obstructive nephropathy. Problem List Active Hospital Problems Diagnosis Date Noted Obstructive nephropathy 09/29/2025 Hypomagnesemia 09/29/2025 Hypophosphatemia 09/29/2025 Protein-calorie malnutrition, moderate (CMS/HCC) 09/29/2025 Anemia, unspecified 09/29/2025 Asymptomatic bacteriuria 09/29/2025 Chronic heart failure with preserved ejection fraction (HFpEF) 09/29/2025 Dysphagia 09/14/2025 Thyroid mass 08/26/2025 Adenocarcinoma of gastroesophageal junction 07/20/2025 Benign prostatic hyperplasia without lower urinary tract symptoms 12/31/2024 Procedures Past Medical History Patient has a past medical history of Blood urine (2023), Cancer (CMS/HCC) (2024), Esophageal cancer (june 2025), Hypertension (1999), Kidney stone, Skin cancer (2004), Stomach cancer (CMS/HCC) (june 2025), and Urinary retention. Past Surgical History Patient has a past surgical history that includes Back surgery (2001); Gallbladder surgery (1998); Appendectomy (2020); Cholecystectomy (1984); Colonoscopy (2023); and orthopedic surgery (2000). Precautions Medical Precautions: Fall precautions Subjective Pt agreeable to therapy session Participants in Care Family/Caregiver Present: Yes Family/Caregiver: Spouse Disability Case Manager: Not Applicable Presentation Oxygen Therapy: None (Room air) Lines and Tubes: Telemetry Urethral Catheter Other (Comment) 22 Fr. (Active) Single Lumen Implantable Port 07/29/25 Right Chest (Active) Pre-Session: Supine, Head of bed elevated, Lines intact Pre-Session Comments: RN agreeable to therapy session Post-Session: Supine, Head of bed elevated, RN notified, Lines intact, Call light in reach Post-Session Comments: Pt positioned for comfort with all needs within reach. 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 Pt stated he is suppose to start outpatient PT Friday10/03/2025, subject to change Prior Level of Function Receives Help From: No assist required prior to admission ( has recently been helping with socks) Level of Mobility: Ambulatory- household only (goes out to MD appts) Mobility [place]: Independent gait with device (uses RW bc he gets light headed) History of Falls: No ADL Performance: Independent Patient/Family Goals Return to PLOF Objective Pain No pain reported within session Delirium Screening RASS: Alert and calm Confusion Assessment Method-ICU (CAM-ICU/PCAM-ICU) Feature 3: Altered Level of Consciousness: Negative Cognition Overall Cognitive Status: Within Functional Limits Arousal/Alertness: Appropriate responses to stimuli Mood/Behavior: Alert Orientation Level: Oriented X4 Single Step Commands: Consistently Multi-Step Commands: Consistently Method of Communication: Verbal Right Upper Extremity Examination RUE Assessment: Within Functional Limits Manual Muscle Testing - RUE: Within functional limits Sensation Light Touch: Right Upper Extremity: Intact Left Upper Extremity Examination LUE ROM Assessment LUE Assessment: Within Functional Limits Manual Muscle Testing - LUE Manual Muscle Testing - LUE: Within functional limits Sensation Light Touch: Left Upper Extremity: Intact Right Lower Extremity Examination RLE ROM Assessment RLE Assessment: Within Functional Limits Manual Muscle Testing - RLE Manual Muscle Testing - RLE: Within functional limits Left Lower Extremity Examination LLE Assessment: Within Functional Limits Manual Muscle Testing: Within functional limits Sensation Light Touch: Left Lower Extremity: Intact Bed Mobility Bed Mobility Interventions: Verbal cues for pacing, symptom monitoring, and sequencing to/from EOB.Pt denied dizziness/LH with position changes. BP assessed with transfers and recorded in Assessment Bed Mobility Exam: Supine to Sit Level of [place]: Stand-by assist Physical/Nonphysical Assist: Verbal Cues, Minimal cues, HOB elevated Bed Mobility Exam: Sit to Supine Level of [place]: Stand-by assist Physical/Nonphysical Assist: Verbal Cues, Minimal cues, HOB elevated Transfers Transfer Interventions: Transfers performed to/from EOB. Verbal cues provided for hand/foot positioning and appropriate use of RW Transfer Exam: Sit to stand Level of [place]: Stand-by assist Physical/Nonphysical Assist: Verbal Cues, Minimal cues, Set-up required Assistive Device: Walker, rolling Transfer Exam: Stand to Sit Level of [place]: Stand-by assist Physical/Nonphysical Assist: Verbal Cues, Minimal cues, Set-up required Assistive Device: Walker, rolling Ambulation Device: Rolling walker Apparatus: None Assistance: Standby assist, Minimal verbal cues Distance : 250' Ambulation Comments: Verbal cues provided for approrpiate use of AD, pacing, and symptom monitoring. Provided education on independent monitoring of symptoms, benefits of AD use, and home environmentmodifications for safety. No dizziness/LH reported throughout. Increased time required due to decreased gait speed. RPE reported 3/10 following ambulation. Balance Postural Appearance Posture: Stooped posture, Forward head, Rounded shoulders Static Sitting Balance Static Sitting-Balance Support: Right upper extremity support, Left upper extremity support, Feet supported Static Sitting-Level of Assistance: Standby assist Stating Sitting - Interventions: Sitting EOB Dynamic Sitting Balance Dynamic Sitting-Balance Support: Right upper extremity support, Left upper extremity support, Feet supported Dynamic Sitting-Balance: Lateral weight shifts, Anterior/Posterior weight shifts Level of Assistance: Standby assisst Dynamic Sitting - Interventions: Sitting EOB Static Standing Balance Static Standing-Balance Support: Right upper extremity support, Left upper extremity support Static Standing-Level of Assistance: Standby assist Static Standing - Interventions: standing w RW Dynamic Standing Balance Dynamic Standing-Balance Support: Right upper extremity support, Left upper extremity support Dynamic Standing-Balance: Lateral weight shifts, Anterior/Posterior weight shifts Dynamic Standing Level of Assistance: Standby assist Dynamic Standing - Interventions: Ambulation w RW Therapeutic Activity (28 minutes) See bed mobility, balance, transfers, and ambulation sections for more detail. Standardized Assessments Standardized Assessments Standardized Assessments: AMPA 6-Clicks Mobility Assessment AMPA 6-Clicks Mobility Assessment [...] climbing 3-5 steps with a railing?: A little [facility] 6-Clicks Mobility Assessment Total : 20 Assessment The patient presents with below impairments and activity limitations. Pt may benefit from skilled PT to address listed deficits. Will continue to progress strength and mobility as able. Impairments: Decreased endurance, ventilation, and/or gas exchange, Impaired gait dynamics/performance, Impaired locomotion, Impaired functional mobility/transfers, Impaired balance, Decreased strength Activity Limitations: Inability to ambulate independently, Inability to ambulate community distances, Inability to complete ADLs independently, Inability to transfer independently Participation Restrictions: Self-care, Home management, Community leisure Activity Tolerance: Tolerates 30 min activity with multiple rests Evaluation/Treatment Tolerance: Patient limited by fatigue Diagnosis: Impaired functional mobility Rehab Potential: Good, to achieve stated therapy goals Barriers to Discharge: Comorbidities Session Vitals: Comment: Vitals closely monitored within session to optimize patient safety with response to activity. BP monitored due to reports of previous dizziness/LH with position changes, but pt denied any ofthe same symptoms this date. Patient Position/Activity Blood Pressure in mmHg (MAP) Start of Session - Supine with HOB elevated 112/69 (80) Unsupported Sitting at EOB 100/64 (75) Standing with assistance 91/67 (77) Unsupported Sitting at EOB 91/69 (76) Of Note: *RN aware of session vitals and patient's response to activity. Eval Complexity History Profile: 1 - 2 personal factors and/or comorbidities Clinical Presentation: Evolving clinical presentation with changing characteristics Clinical Decision Making: Moderate complexity PT Recommendations Discharge Destination: Home with assistance, Outpatient PT Discharge Equipment: Rollator Plan Planned PT Interventions Balance training, Gait training, Transfer training, Postural re-education, Neuromuscular re-education, Strengthening, Functional Mobility PT Frequency 2 - 5 times per week PT Duration 2 weeks Goals PT GOAL DETAILS Time Frame PT Goal 1: Pt will complete all bed mobility tasks independently 2 weeks PT Goal 2: Pt will complete all ambulatory transfers w mod. independence and LRAD 2 weeks PT Goal 3: Pt will ambulate 500' w SBA and LRAD 2 weeks PT Goal 4: Pt will ascend/descen 5 stairs w handrail and CGA for safe home entry/exit 2 weeks Written by Dwayne Murcia on 09/30/25 at 1:31 PM. Cosigned by Derek Arrieta at 09/30/2025 2:27 PM EST Associated attestation - Derek Arrieta - 09/30/2025 2:27 PM EST As the supervising therapist, I was present during the entire PT treatment and have reviewed and agree with this document written by the student therapist for this patient on this date/time. Derek Arrieta, PT, DPT * Consults - Coby Berg RD - 09/30/2025 9:44 AM ESTAssociated Order(s): IP CONSULT TO NUTRITION SERVICES Adult Nutrition Evaluation Note Justin Best 70 y.o. male CSN: [id number] Room/Bed 212/212 Nutrition evaluation type: assessment Reason for evaluation: provider consult Hospital course: 70 y.o male with pmh significant for adenocarcinoma of the esophagus/gastroesophageal junction admitted for worsening kidney function and hydronephrosis. Past medical/ surgical history: Past Medical History[1] Surgical History[2] Social history: Additional comments: PO diet on full liquids. In ED. Essentially lives on a liquid diet and supplements his oral nutrition with Ensure/Boost 2 bottles per day. Vitals and Basic Assessment: BP: 120/67 Temp: 36.8 ??C (98.3 ??F) Oxygen Therapy: None (Room air) Jose Coma Scale Score: 15 John Scale Score: 19 Allergies: NKFA Medications: Current Scheduled Medications[3] Current Continuous Medications[4] Current PRN Medications[5] Meds were reviewed: Yes Labs: BMP Na 135 (L) Cl 102 BUN 62 (H) Glu 107 (H) K 4.2 Co2 20 (L) Cr 9.91 (H) Ca 7.8 (L) iCa ?? Mg 1.5 (L), Phos 5.5 (H) Lactate ?? No results found for: CHOL , TRIG , HDL , LDLCALC No results found for: HGBA1C Elevated Phosphorus Anthropometrics: Height: 182.9 cm (6') Weight: 83.5 kg (184 lb) BMI (Calculated): 24.95 Weight Evaluation: Normal (BMI 18.5-24.9) [place] Body Weight (kg): 80.9 Percent [place] Body Weight: 103 Estimated Needs: Kcal/ K Kcal Provided: 2088 Kcal Needs Based On: Current weight Gm Protein/ Kg : 1.2 - 1.5 Protein Provided: 100 - 125 Protein Needs Based On: Current weight Metabolic Cart Study Results: Current Nutrition Intake: Diet Supplements: Boost Plus Diet Order: Adult Diet Diet Texture: Full Liquid Percent Meals Eaten (%): Document intakes Diet Experience and Nutrition History: Diet Education Provided: Will monitor Pertinent home medications: Imodium Nutrition Focused Physical Exam: Unable to Complete Exam: Unable to access exam locations Physical exam performed on (date): Assessment of Malnutrition: Nutrition Problem: Inadequate oral intake related to esophageal cancer as evidenced by only consuming liquids. Status of Nutrition Diagnosis: New Nutrition Interventions and Recommendations: - Continue Full liquids as tolerated - Adjust to Novasource Renal TID - Gelatein Plus TID - Document intakes - May need to consider DHT/PEG for nutrition - If needed - Novasource Renal @ 50ml/hr (1100ml/day) provides 2200 kcal, 100g protein, 201g CHO, 110g fat, 0g Fiber, 792ml water, 110% RDIs vit/min - Can start at 20 ml/hr advance by 10 ml q 8 hours - Free water per team Nutrition Monitoring and Goals: - Consume 75% or greater of meals - Monitor weight, labs, and elytes Acuity Level: 3 Coby Berg, RD [1] Past Medical History: Diagnosis Date Blood urine 2023 Cancer (CMS/HCC) 2024 current diagnosis Esophageal cancer june 2025 Hypertension 1999 Kidney stone Skin cancer 2004 Stomach cancer ([facility]/HCC) june 2025 Urinary retention [2] Past Surgical History: Procedure Laterality Date APPENDECTOMY 2020 BACK SURGERY 2001 CHOLECYSTECTOMY 1985 COLONOSCOPY 2023 GALLBLADDER SURGERY 1998 ORTHOPEDIC SURGERY 2000 back surgery [3] cefTRIAXone, 2 g, Intravenous, q24h finasteride, 5 mg, Oral, Daily magnesium sulfate, 4 g, Intravenous, Once mupirocin, 1 Application, Each Nostril, BID pantoprazole, 40 mg, Oral, Daily sodium bicarbonate, 650 mg, Oral, TID sodium chloride, 10 mL, Intravenous, q12h tamsulosin, 0.4 mg, Oral, Daily with dinner [4] sodium chloride, 75 mL/hr, Last Rate: 75 mL/hr (09/29/251817) [5] PRN medications: loperamide, ondansetron ODT OR ondansetron, Insert peripheral IV AND Saline lock IV AND sodium chloride AND sodium chloride * H&P - Shannon Murrell MD - 09/29/2025 4:03 PM ESTAssociated Order(s): Consult to [facility] Consult to [facility] Consult performed by: Shannon Murrell MD Consult ordered by: Ericka Arrieta PA Reason for consult: YOLI, obstructive nephropathy, hx of esophageal/GE junction adenocarcinoma Chief complaint Abnormal labs and PET History Of Present Illness Justin Best is a 70 y.o. man with a past medical history significant for adenocarcinoma ofthe esophagus/gastroesophageal junction who also has a history of prostatomegaly with previous indwelling urinary catheter monitored by Urology. He underwent PET CT recently and results were reviewedby Oncology. He also had routine laboratory data that showed severe acute kidney injury. Urology had recently attempted a voiding trial with removal of his indwelling urinary catheter but he had significant retained urine and indwelling urinary catheter was replaced by Urology. Baseline serum creatinine is 0.9-1.1 mg/dL. Recent laboratory data showed creatinine maximum at 10 mg/dL. He denies active physical complaints. He denies abdominal pain, flank pain, fever, sweats, chills, shortness for breath or diarrhea. He had 1 episode of nausea and vomiting after PET scan. He reports that his oral nutrition has been very limited due to his esophageal malignancy. He essentially lives on a liquid diet and supplements his oral nutrition with Ensure/Boost 2 bottles per day. He is able to swallow pills without difficulty. He has chronic lower extremity edema and previous echocardiogram showed heart failure with preserved ejection fraction/diastolic dysfunction. Past medical history: Adenocarcinoma of the esophagus/gastroesophageal junction - Treated with chemotherapy and immunotherapy Prostatomegaly/BPH GERD Heart failure with preserved ejection fraction on echo July 2025 Abnormal thyroid imaging on PET scan, possible thyroid cancer Past surgical history: Cholecystectomy Appendectomy Back surgery EGD with esophageal mass biopsy Social history: . Lives in [facility]. No tobacco use history. Rare alcohol use. No history of heroin, cocaine or methamphetamines. Family history: Father with colon cancer Mother with congestive heart failure-live to be 94 years old Family history is otherwise noncontributory. No other known family history of GI malignancies. Allergies Oxycodone and Penicillins Medications ordered for hospitalization Current Scheduled Medications[1] as of 09/29/2025 4:03 PM cefTRIAXone, 2 g, Intravenous, Once [START ON 09/30/2025] cefTRIAXone, 2 g, Intravenous, q24h finasteride, 5 mg, Oral, Daily ondansetron, 4 mg, Intravenous, Once sodium bicarbonate, 650 mg, Oral, TID sodium chloride, 10 mL, Intravenous, q12h tamsulosin, 0.4 mg, Oral, Daily with dinner Pantoprazole 40 mg by mouth daily Objective Review of Systems A 10 point review of systems was conducted and was negative except as mentioned in the HPI. Physical Exam: Last Recorded Vitals Blood pressure 109/72, pulse 93, temperature 36.9 ??C (98.4 ??F), temperature source Oral, resp. rate 15, weight 83.5 kg (184 lb), SpO2 92%. General: Alert, no acute distress, conversant, well-nourished HEENT: No temporal wasting, EOMI, no scleral icterus, wearing glasses Neck: Supple, normal range of motion Cardiovascular: Normal S1-S2, regular rhythm, normal rate, no rub, no gallop Pulmonary: Clear to auscultation bilaterally, no wheezes, rales or rhonchi, on room air. Good chestexcursion Gastrointestinal: Abdomen soft, nontender, nondistended Genitourinary: No Carmona catheter Musculoskeletal: Good muscle tone, good range of motion, 3+ bilateral lower extremity edema Neuro: Alert, oriented, no focal neurologic deficits, affect is calm, thoughts are fluent Derm: Skin is clean, dry, intact, no wounds or lesions Laboratory data: Labs in last 18 hours CBC WBC 8.47 Hb 7.6 (L) Plt 442 (H) Hct 23.4 (L) ANC 5.54 BMP Na 133 (L) Cl 99 BUN 61 (H) Glu 101 (H) K 4.0 Co2 19 (L) Cr 10.03 (H) Ca 8.2 (L) iCa ?? Mg 1.6 (L), LFT AST 26 AlkPhos 91 T Prot 5.7 (L) ALK 21 Bili 0.5 Alb ?? Renal ultrasound: FINDINGS: Right Kidney: The right kidney is normal in size measuring 12.5 cm. Mildly echogenic cortex. There are no contour deforming masses or calculi. There is no hydronephrosis. There is a well-circumscribed anechoic 9 x 7 mm focus in the midpole of the right kidney. This is consistent with a simple cyst. Left Kidney: The left kidney is normal in size measuring 11.2 cm. There is mildly echogenic appearance of the left kidney. There is minimal cortical thinning at the mid pole. This is nonspecific. There is no hydronephrosis. Bladder: The bladder is mostly decompressed and a bladder catheter is seen within the lumen. IMPRESSION: Mildly echogenic kidneys. Bladder catheter is seen within the lumen of the nearly empty bladder. PET - CT IMPRESSION: Redemonstrated is an intensely FDG-avid mass [...] appearance compared with the prior exam. New [id number]-left perinephric and periureteral fat stranding is present, which may representinfectious or inflammatory processes. Recommend correlation with patient symptoms and urinalysis ifclinically indicated. Assessment & Plan Obstructive nephropathy Adenocarcinoma of gastroesophageal junction Benign prostatic hyperplasia without lower urinary tract symptoms Dysphagia Thyroid mass Hypomagnesemia Hypophosphatemia Protein-calorie malnutrition, moderate (CMS/HCC) Anemia, unspecified Asymptomatic bacteriuria Chronic heart failure with preserved ejection fraction (HFpEF) Mr. Best is a 70-year-old man who is admitted with acute kidney injury in the setting of prostatomegaly/BPH and previous voiding trial by Urology. Carmona catheter has been replaced and he has good urine output. He is stable from a metabolic standpoint and does not require emergent hemodialysis. He has a past medical history significant for adenocarcinoma of the gastroesophageal junction that was previously treated with chemotherapy and immunotherapy. He has swallow dysfunction secondary to his upper GI malignancy and protein calorie malnutrition with previous hypomagnesemia and hypophosphatemia. Acute kidney injury secondary to obstructive nephropathy: He recently underwent voiding trial for management of lower urinary tract problems supervised by Urology Carmona catheter was replaced by Urology. He has good urine output Urinalysis was concerning for bacteriuria. He is receiving empiric antibiotic there we he was ceftriaxone for possible cystitis. I think he probably has asymptomatic bacteriuria He is at risk for postobstructive auto diuresis. He has total body volume overload and good oral fluid intake. We will support the patient with maintenance IV fluids. - We will monitor his clearance, volume status and electrolytes. There was no urgent indication for hemodialysis. I am hopeful that with his indwelling urinary catheter, supportive care and stable hemodynamics that his kidney function will improve. If his clearance or electrolytes worsen consider consultation with Nephrology If he has problems with failure of his catheter to drain or blood clots in his Carmona catheter bag consider consultation with Urology Adenocarcinoma of the esophagus/gastroesophageal junction: Previously treated with leucovorin, oxaliplatin, Taxotere, fluorouracil. Now on immunotherapy only with nivolumab and ipilimumab. PET-CT September 28 showed distal esophageal activity concerning for residual disease We will continue with full liquid diet The patient reports that with acute kidney injury his immunotherapy is on hold He was not tolerating chemotherapy and that is also on hold May need to consult with Oncology if he has prolonged hospitalization. We will continue with full liquid diet and will supplement with nutrition shakes due to swallow dysfunction. Continue PPI for GI acid suppression Anemia -possibly secondary to chemotherapy or iron-deficiency. Iron studies ordered Protein calorie malnutrition: - Moderate Secondary to limited diet. He previously had hypophosphatemia and hypomagnesemia due to poor nutrition. I discussed advancing his nutrition supplementation from 2 Ensure shakes per day up to 6 Ensure shakes per day. - We will continue to monitor his electrolytes We must be cautious with electrolyte replacement in the setting of his kidney dysfunction. Thyroid mass: PET scan showed activity in his thyroid We will need outpatient ultrasound and follow up with evaluation by Oncology Heart failure with preserved ejection fraction-chronic: He has peripheral edema on exam He also had echocardiogram July 2025 showing preserved LVEF at 65% and grade 1 diastolic dysfunction. Must be cautious with IV fluid administration and aggressive oral fluid intake. Blood pressure is currently a bit low which limits escalation of heart failure medications. With his acute kidney injury, I do not recommend diuretics. Venous thromboembolism prophylaxis We will use SCDs for DVT prophylaxis in the setting of his acute kidney injury Diet Dietary Orders (From admission, onward) Start Ordered 09/29/25 1558 Oral nutrition supplements Until discontinued Question Answer Comment Supplement frequency: All meals All meals supplement: Boost Plus Vanilla Quantity for All Meals of Boost Plus Vanilla Two 09/29/25 1557 09/29/25 155 Adult diet Diet texture: Full liquid Diet effective now References: IDDSI Diet Texture Guide Question: Diet texture Answer: Full liquid 09/29/25 9193 Code Status Full Code Shannon Murrell MD [facility] Medicine [1] cefTRIAXone, 2 g, Intravenous, Once [START ON 09/30/2025] cefTRIAXone, 2 g, Intravenous, q24h finasteride, 5 mg, Oral, Daily ondansetron, 4 mg, Intravenous, Once sodium bicarbonate, 650 mg, Oral, TID sodium chloride, 10 mL, Intravenous, q12h tamsulosin, 0.4 mg, Oral, Daily with dinner * Care Plan - Jonel Peña RN - 09/29/2025 11:32 AM EST Problem: Adult Inpatient Plan of Care Goal: Plan of Care Review Outcome: Ongoing, Progressing Flowsheets (Taken 09/30/2025511) Progress: no change Plan of Care Reviewed With: patient Goal: Patient-Specific Goal (Individualized) Outcome: Ongoing, Progressing Flowsheets (Taken 09/30/2025511) Patient/Family-Specific Goals (Include Timeframe): pt will remain free from harm this shift Individualized Care Needs: safety Anxieties, Fears or Concerns: none specified Goal: Absence of Hospital-Acquired Illness or Injury Outcome: Ongoing, Progressing Intervention: Identify and Manage Fall Risk Flowsheets (Taken 09/30/2025511) Safety Promotion/Fall Prevention: safety round/check completed Intervention: Prevent Skin Injury Flowsheets (Taken 09/30/2025511) Body Position: weight shifting Skin Protection: incontinence pads utilized Intervention: Prevent and Manage VTE (Venous Thromboembolism) Risk Flowsheets (Taken 09/30/2025511) VTE Prevention/Management: medication Intervention: Prevent Infection Flowsheets (Taken 09/30/2025511) Infection Prevention: rest/sleep promoted Goal: Optimal Comfort and Wellbeing Outcome: Ongoing, Progressing Intervention: Monitor Pain and Promote Comfort Flowsheets (Taken 09/30/2025511) Pain Management Interventions: breathing exercises care clustered Intervention: Provide Person-Centered Care Flowsheets (Taken 09/30/2025511) Trust Relationship/Rapport: care explained choices provided emotional support provided empathic listening provided questions answered questions encouraged reassurance provided thoughts/feelings acknowledged Problem: Infection Goal: Absence of Infection Signs and Symptoms Outcome: Ongoing, Progressing Intervention: Prevent or Manage Infection Flowsheets (Taken 09/30/2025511) Infection Management: aseptic technique maintained Fever Reduction/Comfort Measures: lightweight bedding lightweight clothing Isolation Precautions: precautions maintained * ED Provider Notes - Ericka Arrieta PA - 09/29/2025 11:32 AM EST Images from the original note were not included. - HPI Chief Complaint Patient presents with Abnormal Lab PIT NOTE Justin Best is a 70 y.o. male with a PMH of GEJ adenocarcinoma (currently undergoing treatment), CKD, HTN, urinary retention, BPH (cathter in situ) who presents to the ED for an abnormal lab. Pt presents from Hem Onc clinic to the ED due to recently having imaging performed yesterday which revealed worsening kidney function and R hydronephrosis. Pt currently follows with Urology and has a cathter in situ. Per chart review, pt was recently evaluated by Urology yesterday for voiding trial, however that failed and pt had a new cathter placed yesterday. Patient denies fever, abdominalpain, N/V/D, headache, chest pain, SOA. History provided by: Patient transition specialist used: No PIT Note continued: KMP: Agree with above statements. This is a 70-year-old male with a history of GEJ adenocarcinoma (currently undergoing treatment), CKD, HTN, urinary retention, BPH (cathter in situ) who presents to the ED for an abnormal lab. Notes that he has had poor appetite and abdominal pain that is chronic to his right side of abdomen. Denies fever. Notes that the urine flow from catheter has been clear. Patient History Past Medical History[1] Surgical History[2] Family History[3] Social History[4] Allergies: Allergies[5] Physical Exam ED Triage Vitals [09/29/25 1140] Temp Heart Rate Resp BP 36.5 ??C (97.7 ??F) 88 16 110/67 SpO2 Temp Source Heart Rate Source Patient Position 92 % Oral -- Sitting BP Location FiO2 (%) Left arm -- Physical Exam Constitutional: Appearance: Normal appearance. HENT: Head: Normocephalic. Right Ear: External ear normal. Left Ear: External ear normal. Nose: Nose normal. Eyes: Conjunctiva/sclera: Conjunctivae normal. Pulmonary: Effort: Pulmonary effort is normal. Abdominal: General: Abdomen is flat. Palpations: Abdomen is soft. Musculoskeletal: General: Normal range of motion. Cervical back: Normal range of motion. Skin: General: Skin is warm and dry. Neurological: Mental Status: He is alert and oriented to person, place, and time. Psychiatric: Mood and Affect: Mood normal. Behavior: Behavior normal. EASI ?? Total Score: 0 Saxton Coma Scale Score: 15 TRST Assessment Total: 4 ED Course & MDM - Date/Time: 09/29/2025/12:05 PM Entered by Nati Lugo, acting as scribe for Onel Mancilla MD. Scribe Attestation: This note was dictated to me, Nati Lugo, acting as a scribe for Onel Mancilla MD. Attending Attestation: The documentation was recorded by Nati Lugo acting as scribe in my presence at the time of the encounter and accurately reflects the service I personally performed. Assessment: 70 y.o. male presents to ED with complaint of abnormal lab. It should be noted that the chronic conditions includes GEJ adenocarcinoma (currently undergoing treatment), CKD, HTN, urinary retention, BPH (cathter in situ), which currently is not at goal therapy. This complicates the clinical picture because it Comorbidities: may be exacerbating symptoms and increases the amount and complexity of data to be reviewed Differential Diagnosis: Renal failure, obstructive nephropathy, pyelonephritis, cystitis, catheter associated UTI, electrolyte derangement, dehydration, among others In order to fully explore the differential diagnosis the following treatments and tests were ordered: ED Medication Administration from 09/29/2025 1040 to 09/29/2025 1557 Date/Time Order Dose Route Action 09/29/2025 1342 EST lactated Ringer's infusion 1,000 mL 1,000 mL Intravenous New Bag All Other Orders Ordered Status Ordering Provider 09/29/25 1556 PT eval and treat Until therapy completed Acknowledged SHANNON MURRELL 09/29/25 1556 OT eval and treat Until therapy completed Acknowledged SHANNON MURRELL 09/29/25 1556 Basic metabolic panel Morning draw Final result SHANNON MURRELL 09/29/25 1556 Magnesium, Plasma Morning draw Final result SHANNON MURRELL 09/29/25 1556 Phosphorus Morning draw Final result SHANNON MURRELL 09/29/25 1556 CBC Morning draw Final result SHANNON MURRELL 09/29/25 1556 Vital Signs Every 4 hours Placed in And Linked Group Acknowledged SHANNON MURRELL 09/29/25 1556 Pulse Oximetry Every 4 hours Placed in And Linked Group Acknowledged SHANNON MURRELL 09/29/25 1556 Sequential compression device Until discontinued Comments: SCDs must be in place and turned on EXCEPT when ACTIVELY ambulating. Acknowledged SHANNON MURRELL 09/29/25 1556 Do Not Give Nicotine Replacement Until discontinued Acknowledged MARYJO SHANNON 09/29/25 1556 Full code Continuous Acknowledged MARYJOMARKSHANNON 09/29/25 1556 Adult diet Diet texture: Full liquid Diet effective now Acknowledged MARYJO SHANNON 09/29/25 1556 Admit to inpatient Once Acknowledged MARYJO SHANNON 09/29/25 1556 Mobility Orders Until discontinued Acknowledged MARYJO SHANNON 09/29/25 1556 Notify physician (specify parameters) Until discontinued Acknowledged SHANNON MURRELL 09/29/25 1556 Insert peripheral IV Once Placed in And Linked Group Acknowledged SHANNON MURRELL 09/29/25 1556 Saline lock IV Once Placed in And Linked Group Acknowledged SHANNON MURRELL 09/29/25 1357 Urinalysis Microscopic Examination Once Final result ERICKA ARRIETA 09/29/25 1332 Consult to [facility] Once Specialty: Internal Medicine Provider: (Not yet assigned) Completed ERICKA ARRIETA 09/29/25 1332 ED to floor bed request Once Completed ERICKA ARRIETA 09/29/25 1250 Urinalysis with reflex microscopic AND reflex culture (IF UTI SUSPECTED) STAT Final result ERICKA ARRIETA 09/29/25 1250 Urinalysis with reflex microscopic (Culture NOT Included) PROCEDURE ONCE Final result ERICKA ARRIETA 09/29/25 1250 Urine Oliveira Panel PROCEDURE ONCE Final result ERICKA ARRIETA 09/29/25 1206 Initiate Contact D Isolation Continuous Comments: Added via Instant Order OPA Acknowledged BPA, INSTANT ORDERS 09/29/25 1155 Sodium, urine, random STAT Final result ONEL BYRD 09/29/25 1155 Creatinine, urine, random STAT Final result ONEL BYRD 09/29/25 1154 CMP STAT Final result ONEL BYRD 09/29/25 1154 CBC w/diff STAT Final result ONEL BYRD 09/29/25 1154 US Renal Complete Once Final result ONEL BYRD ED Course as of 09/30/25 1046 Marcela Sep 29, 2025 1228 BP: 110/67 [KP] 1228 Heart Rate: 88 [KP] 1228 Resp: 16 [KP] 1228 SpO2: 92 % [KP] 1228 Temp: 36.5 ??C (97.7 ??F) [KP] 1228 The patient is seen in triage intake by Dr. Byrd. Care continued by me. Upon arrival pending lab workup, patient was consulted for admission to hospital medicine service. Patient has had workup from clinic that already showed significant increased his creatinine. Patient requires admission.Hospital medicine service amenable to admission. Patient is stable. [KP] 1238 Reviewed chart from hematology oncology clinic visit today. PET scan on 09/28 showed no concerns for thyroid prostate etiology. Thyroid ultrasound and biopsy results were mildly suspicious. Patient had unsuccessful voiding trial on 09/28, and has a catheter was placed. That has concern for obstructive YOLI with creatinine of 9.77 from baseline of 1. He had failed several voiding trials, in his following up with the Urology. The pet/CT from 09/28 had right kidney slightly enlarged and edematous compared to prior exam with right greater than left perinephric and periureteral stranding without hydronephrosis. Carmona was replaced yesterday and draining appropriately. Could possibly need PVC ENT due to severe obstructive nephropathy, recommended repeat labs in ED with IVF, inpatient Nephrology and Urology consult. [KP] 1243 WBC: 8.47 No leukocytosis [KP] 1243 RBC(!): 2.67 [KP] 1243 Hemoglobin(!): 7.6 Near baseline [KP] 1243 Hematocrit(!): 23.4 [KP] 1243 Platelet Count(!): 442 [KP] 1243 MCV: 88 Normocytic [KP] ED Course User Index [KP] Ericka Arrieta PA Clinical Impressions as of 09/30/25 1046 Adenocarcinoma of gastroesophageal junction YOLI (acute kidney injury) Obstructive nephropathy Social Determinates of Health Risks (including Economic Stability, Education and level of understanding, Healthcare access and quality and concerning social factors): None identified on this visit Ultimately, this patient was Was admitted (Admission) The primary encounter diagnosis was Adenocarcinoma of gastroesophageal junction. Diagnoses of YOLI (acute kidney injury) and Obstructive nephropathy were also pertinent to this visit.. Patient believed to require admission for the listed diagnoses. The Internal Medicine service was consulted for admission and was agreeable to admit to Acute Floor (Med/Surg). ED Prescriptions None Disposition Admit Admitting/Attending Physician: SHANNON MURRELL [[id number]] Provider Care Team: LILIYA REDMAN 5 [[id number]] Are they the primary team?: Yes [1] - [1] Past Medical History: Diagnosis Date Blood urine 2023 Cancer (CMS/HCC) 2024 current diagnosis Esophageal cancer june 2025 Hypertension 1999 Kidney stone Skin cancer 2004 Stomach cancer ([facility]/HCC) june 2025 Urinary retention [2] Past Surgical History: Procedure Laterality Date APPENDECTOMY 2020 BACK SURGERY 2001 CHOLECYSTECTOMY 1985 COLONOSCOPY 2023 GALLBLADDER SURGERY 1998 ORTHOPEDIC SURGERY 2000 back surgery [3] Family History Problem Relation Name Age of Onset Cancer Father Heart failure Mother 80 - 99 [4] Tobacco Use Smoking status: Never Passive exposure: Never Smokeless tobacco: Never Substance Use Topics Alcohol use: Not Currently Alcohol/week: 1.0 standard drink of alcohol Types: 1 Cans of beer per week Drug use: Never [5] Allergies Allergen Reactions Oxycodone Hallucinations Penicillins Unknown - Patient states they do not know rxn details Childhood allergy, thinks it was maybe a rash, but isn't sure Ericka Arrieta PA 09/30/25 1046 Cosigned by Onel Byrd MD at 10/04/2025 5:42 AM EST Associated attestation - Onel Byrd MD - 10/04/2025 5:42 AM EST I attest to being involved in more than half the total time in patient care. * ED Triage Notes - Elle Hughes RN - 09/29/2025 11:32 AM EST Pt sent from clinic for worsening kidney function and hydronephrosis documented in this encounter Plan of Treatment Upcoming Encounters Date Type Department Care Team (Latest Contact Info) Description 10/26/2025 2:45 PM EST Office Visit [facility] [address] [place] [address] Kim Machado MD [address] [place] [address] 10/27/2025 11:00 AM EST Clinical Support [facility] [address], [address] [place] [address] 11/17/2025 7:50 AM EST Clinical Support [facility] Mult[facility] On[facility] [address] [place] [address] 11/17/2025 8:00 AM EST Office Visit [facility] [address] [place] [address] Onel Reina MD [address] [place] [address] 11/17/2025 2:00 PM EST Office Visit [facility] [place] Ne[facility]rology, Bone [facility] Mineral Metabolism [address], [address] [place] [address] 11/21/2025 2:00 PM EST Appointment [facility] [address] [place] [address] 12/01/2025 1:30 PM EST Office Visit [facility] [address] [place] [address] Yanely Rock, [address] [place] [address] 12/14/2025 10:00 AM EST Office Visit [facility] [address] [facility] [address] [facility], [address] [place] [address] Juarez Recinos MD [address] [place] [address] 01/13/2026 12:00 PM EST Office Visit [facility] [address] [place] [address] Eros Mejia MD [address] [place] [phone] Scheduled Referrals Name Type Priority Associated Diagnoses Order Schedule Ambulatory referral to External PCP Outpatient Referral Routine Asymptomatic bacteriuria 1 Occurrences starting 10/05/2025 until 04/08/2027 Ambulatory referral to External PCP Outpatient Referral Routine CKD (chronic kidney disease) stage 2, GFR 60-89 ml/min 1 Occurrences starting 10/05/2025 until 04/08/2027 documented as of this encounter Procedures Procedure Name Priority Date/Time Associated Diagnosis Comments BASIC METABOLIC PANEL, PLASMA Routine 10/05/2025 5:12 AM EST CBC W/O DIFFERENTIAL Routine 10/04/2025 9:07 PM EST CBC W/O DIFFERENTIAL Routine 10/04/2025 3:52 PM EST US GUIDED BIOPSY RENAL LEFT Routine 10/04/2025 9:13 AM EST SURGICAL PATHOLOGY EXAM Routine 10/04/2025 9:11 AM EST CBC WITH AUTO DIFFERENTIAL Routine 10/04/2025 5:49 AM EST PHOSPHORUS, PLASMA Routine 10/04/2025 5: 49 AM EST MAGNESIUM, PLASMA Routine 10/04/2025 5:4 9 AM EST COMPREHENSIVE METABOLIC PANEL, PLASMA Routine 10/04/2025 5:49 AM EST TRANSFUSE RED BLOOD CELLS Routine 10/03/2025 10:40 PM EST TYPE AND SCREEN Routine 10/03/2025 8:33 PM EST PREPARE RBC Routine 10/03/2025 6:54 PM EST CBC W/O DIFFERENTIAL Routine 10/03/2025 6:18 AM EST RENAL FUNCTION PANEL, PLASMA Routine 10/03/2025 6:18 AM EST CBC W/O DIFFERENTIAL Routine 10/02/2025 6:11 AM EST RENAL FUNCTION PANEL, PLASMA Routine 10/02/2025 6:11 AM EST CBC WITH AUTO DIFFERENTIAL Routine 10/01/2025 3:34 AM EST PHOSPHORUS, PLASMA Routine 10/01/2025 3: 34 AM EST MAGNESIUM, PLASMA Routine 10/01/2025 3:3 4 AM EST COMPREHENSIVE METABOLIC PANEL, PLASMA Routine 10/01/2025 3:34 AM EST TRANSFUSE RED BLOOD CELLS Routine 09/30/2025 2:01 PM EST TYPE AND SCREEN Routine 09/30/2025 10:00 AM EST PREPARE RBC Routine 09/30/2025 8:52 AM EST CBC W/O DIFFERENTIAL Routine 09/30/2025 4:17 AM EST PHOSPHORUS, PLASMA Routine 09/30/2025 4: 17 AM EST MAGNESIUM, PLASMA Routine 09/30/2025 4:1 7 AM EST BASIC METABOLIC PANEL, PLASMA Routine 09/30/2025 4:17 AM EST SEND SCAR MESSAGE STAT 09/29/2025 1: 46 PM EST URINALYSIS WITH REFLEX MICROSCOPIC AND CULTURE STAT 09/29/2025 1:46 PM EST URINE OLIVEIRA PANEL STAT 09/29/2025 1:46 PM EST URINALYSIS MICROSCOPIC FOR UA REFLEX STAT 09/29/2025 1:46 PM EST SODIUM, URINE, RANDOM STAT 09/29/2025 1:46 PM EST CREATININE, RANDOM URINE STAT 09/29/2025 1:46 PM EST URINALYSIS WITH REFLEX MICROSCOPIC STAT 09/29/2025 1:46 PM EST URINE CULTURE STAT 09/29/2025 1:46 PM EST US RENAL COMPLETE STAT 09/29/2025 1:0 9 PM EST IRON & TOTAL IRON BINDING CAPACITY, PLASMA (INCLUDES TRANSFERRIN) Add-On 09/29/2025 12:32 PM EST CBC WITH AUTO DIFFERENTIAL STAT 09/29/2025 12:32 PM EST PHOSPHORUS, PLASMA Add-On 09/29/2025 12 :32 PM EST COMPREHENSIVE METABOLIC PANEL, PLASMA STAT 09/29/2025 12:32 PM EST documented in this encounter Results * (ABNORMAL) Basic Metabolic Panel, Plasma (10/05/2025 5:12 AM EST) Glucose, Plasma 108(H) 74 - 99 mg/dL 10/05/2025 5:53 AM EST [facility] BUN, Plasma 61(H) 8 - 23 mg/dL 10/05/2025 5:53 AM EST [facility] Creatinine, Plasma 5.25(H) 0.70 - 1.20 mg/dL 10/05/2025 5:53 AM EST [facility] BUN/Creatinine Ratio 12 10/05/2025 5:53 AM EST [facility] Sodium, Plasma 137 136 - 145 mmol/L 10/05/2025 5:53 AM EST [facility] Potassium, Plasma 4.0 3.6 - 4.9 mmol/L 10/05/2025 5:53 AM EST [facility] Chloride, Plasma 106 97 - 107 mmol/L 10/05/2025 5:53 AM EST [facility] CO2, Plasma 20(L) 22 - 29 mmol/L 10/05/2025 5:53 AM EST [facility] Anion Gap 11 6 - 16 mmol/L 10/05/2025 5:53 AM EST [facility] Total Calcium, Plasma 8.2(L) 8.9 - 10.2 mg/dL 10/05/2025 5:53 AM EST [facility] eGFRcr 11.0 mL/min/1.7 3m*2 10/05/2025 5:53 AM EST [facility] Comment:Reported eGFRcr in m L/min/1.73m2 is based the CKD-EPI 2020 equation that does not use a race coefficient. Blood Venous blood specimen / Unknown Venipuncture / Unknown 10/05/2025 5:12 AM EST 10/05/2025 5:23 AM EST us Reny Christensen DO LAB BLOOD ORDERABLES Final Re sult [facility] [address] [place] [address] * (ABNORMAL) CBC W/O Differential (10/04/2025 9:07 PM EST) WBC Count 5.58 3.70 - 10.30 10*3/uL LAB HEMATOLOGY METHOD 10/04/2025 9:24 PM EST [facility] RBC Count 3.18(L) 4.60 - 6.10 10*6/uL LAB HEMATOLOGY METHOD 10/04/2025 9:24 PM EST [facility] HGB 8.9(L) 13.7 - 17.5 g/dL LAB HEMATOLOGY METHOD 10/04/2025 9:24 PM EST [facility] HCT 28.0(L) 40.0 - 51.0 % LAB HEMATOLOGY METHOD 10/04/2025 9:24 PM EST [facility] Platelet Count 337 155 - 369 10*3/uL LAB HEMATOLOGY METHOD 10/04/2025 9:24 PM EST [facility] MCV 88 79 - 98 fL LAB HEMATOLOGY METHOD 10/04/2025 9:24 PM EST [facility] MCH 28.0 26.0 - 32.0 pg LAB HEMATOLOGY METHOD 10/04/2025 9:24 PM EST [facility] MCHC 31.8 30.7 - 35.5 g/dL LAB HEMATOLOGY METHOD 10/04/2025 9:24 PM EST [facility] RDW 14.9(H) 11.5 - 14.5 % LAB HEMATOLOGY METHOD 10/04/2025 9:24 PM EST [facility] MPV 9.8 8.8 - 12.5 fL LAB HEMATOLOGY METHOD 10/04/2025 9:24 PM EST [facility] nRBC 0.0 <=0.0 per 100 WBCs LAB HEMATOLOGY METHOD 10/04/2025 9:24 PM EST [facility] Blood Venous blood specimen / Unknown Venipuncture / Unknown 10/04/2025 9:07 PM EST 10/04/2025 9:16 PM EST us Reny Christensen DO LAB BLOOD ORDERABLES Final Re sult [facility] [address] [place] [address] * (ABNORMAL) CBC W/O Differential (10/04/2025 3:52 PM EST) WBC Count 7.31 3.70 - 10.30 10*3/uL LAB HEMATOLOGY METHOD 10/04/2025 4:52 PM EST [facility] RBC Count 3.18(L) 4.60 - 6.10 10*6/uL LAB HEMATOLOGY METHOD 10/04/2025 4:52 PM EST [facility] HGB 8.9(L) 13.7 - 17.5 g/dL LAB HEMATOLOGY METHOD 10/04/2025 4:52 PM EST [facility] HCT 27.8(L) 40.0 - 51.0 % LAB HEMATOLOGY METHOD 10/04/2025 4:52 PM EST [facility] Platelet Count 379(H) 155 - 369 10*3/uL LAB HEMATOLOGY METHOD 10/04/2025 4:52 PM EST [facility] MCV 87 79 - 98 fL LAB HEMATOLOGY METHOD 10/04/2025 4:52 PM EST [facility] MCH 28.0 26.0 - 32.0 pg LAB HEMATOLOGY METHOD 10/04/2025 4:52 PM EST [facility] MCHC 32.0 30.7 - 35.5 g/dL LAB HEMATOLOGY METHOD 10/04/2025 4:52 PM EST [facility] RDW 15.0(H) 11.5 - 14.5 % LAB HEMATOLOGY METHOD 10/04/2025 4:52 PM EST [facility] MPV 10.3 8.8 - 12.5 fL LAB HEMATOLOGY METHOD 10/04/2025 4:52 PM EST [facility] nRBC 0.0 <=0.0 per 100 WBCs LAB HEMATOLOGY METHOD 10/04/2025 4:52 PM EST [facility] Blood Venous blood specimen / Unknown Venipuncture / Unknown 10/04/2025 3:52 PM EST 10/04/2025 4:44 PM EST us Reny Christensen DO LAB BLOOD ORDERABLES Final Re sult [facility] [address] [place] [address] * US Guided Biopsy Renal Left (10/04/2025 9:13 AM EST) Anatomical Region Laterality Modality Kidney Left X-Ray Angiograph y Impressions 10/04/2025 12:55 PM EST Successful non-target ultrasound guided left [place] kidney biopsy CRITICAL RESULT: No. COMMUNICATION: Per this written report. Drafted by Cristel Page on 10/04/2025 12:54 PM Final report signed by Cristel Page on 10/04/2025 12:55 PM Narrative 10/04/2025 12:55 PM EST CLINICAL INDICATION: YOLI TECHNIQUE: Microfilm Machine Operator: Dr. Page Secondary Web Site Manager: None Medications used: 1 mg midazolam 50 mcg fentanyl Time out: 9:07 Sedation stop: 9:13 Procedure: Ultrasound guided non target random left renal biopsy. The patient was brought to the ultrasound room and placed in a lateral decubitus position. Subsequently, the left kidney was visualized under ultrasonographic guidance and the skin marked for the proposed site of entry. Images were saved into PACS. The overlying skin and the surrounding area were then cleaned with chlorhexidine and covered with a sterile drape under sterile precautions. About 10 ml of lidocaine was then injected in the skin, subcutaneous and deep tissues under ultrasound guidance. An 18-gauge biopsy needle was introduced through the marked and anesthetized area under ultrasound guidance and 2 passes were made to biopsy the left kidney resulting in 2 cores of tissue. The biopsy specimens were preliminary examined by the surgical pathologist/fire alarm technician present in the ultrasound room and were found to have enough number of glomeruli. The biopsy site was then cleaned, and a bandage applied. Patient tolerated the procedure well. COMPARISON: None. FINDINGS: Left kidney identified. Immediate post procedural scanning demonstrated no perinephric hematoma. COMPLICATION: No. Procedure Note Cristel Page MD - 10/04/2025 CLINICAL INDICATION: YOLI TECHNIQUE: Microfilm Machine Operator: Dr. Page Secondary Web Site Manager: None Medications used: 1 mg midazolam 50 mcg fentanyl Time out: 9:07 Sedation stop: 9:13 Procedure: Ultrasound guided non target random left renal biopsy. The patient was brought to the ultrasound room and placed in a lateraldecubitus position. Subsequently, the left kidney was visualized underultrasonographic guidance and the skin marked for the proposed site ofentry. Images were saved into PACS. The overlying skin and the surrounding area were then cleaned withchlorhexidine and covered with a sterile drape under sterile precautions.About 10 ml of lidocaine was then injected in the skin, subcutaneous anddeep tissues under ultrasound guidance. An 18-gauge biopsy needle was introduced through the marked andanesthetized area under ultrasound guidance and 2 passes were made tobiopsy the left kidney resulting in 2 cores of tissue. The biopsy specimens were preliminary examined by the surgicalpathologist/fire alarm technician present in the ultrasound room and werefound to have enough number of glomeruli. The biopsy site was then cleaned, and a bandage applied. Patient toleratedthe procedure well. COMPARISON: None. FINDINGS: Left kidney identified. Immediate post procedural scanning demonstrated noperinephric hematoma. COMPLICATION: No. IMPRESSION: Successful non-target ultrasound guided left [place] kidney biopsy CRITICAL RESULT: No. COMMUNICATION: Per this written report. Drafted by Cristel Page on 10/04/2025 12:54 PM Final report signed by Cristel Page on 10/04/2025 12:55 PM us Cristel Page MD G US MANPREET HALL Final Result * Surgical Pathology Exam (10/04/2025 9:11 AM EST) Case Report Surgical Pathology Case: [id number] Authorizing Provider: Kaylee Cristel Collected: 10/04/2025 Loree Byrd MD Ordering Location: [facility] Inpatient Received: 10/04/202532 Pathologist: Fern Benites MD Specimen: Kidney, Left 10/23/2025 2:47 PM EST [facility] Correction History This final report incorporates the electron microscopy study. 10/23/2025 2:47 PM EST [facility] Comment:These results have b een appended to a previously final verified report. Final Diagnosis A. KIDNEY, [place], CORE NEEDLE BIOPSY: - ACUTE TUBULOINTERSTITIAL NEPHRITIS WITH TREATMENT EFFECT. - ACUTE TUBULAR NECROSIS. - PARENCHYMAL CHRONICITY CHANGES: GLOBAL GLOMERULAR SCLEROSIS INVOLVING ONE OUT OF EIGHT GLOMERULI (1/8, 25%), MODERATE TO SEVERE INTERSTITIAL EDEMA AND FIBROSIS, MILD TO MODERATE CORTICAL TUBULAR ATROPHY, AND MODERATE TO SEVERE ARTERIAL FIBROUS INTIMAL THICKENING. - SEE COMMENT AND MICROSCOPIC DESCRIPTION. 10/23/2025 2:47 PM EST [facility] Amendment electronically signed by Fern Benites MD on 10/23/2025 at 1447 EST at 1643 EST Comment:Corrected result: Pr eviously reported as [Previous value contains rich text formatting which cannot be displayed here] (see Result History) on 10/11/2025 at 1643 EST. Comment Even though the biopsy is limited (only 8 glomeruli identified on paraffin frozen sections), the findings are consistent with acute tubulointerstitial nephritis with treatment effect and acute tubular necrosis in this patient with multiple recent medication including chemotherapy and immune checkpoint inhibitors for esophageal adenocarcinoma, and antibiotics for urinary tract infection, who was started on steroid therapy prior the kidney biopsy. Clinical correlation is recommended. There is no diagnostic evidence of immune complex mediated glomerular process are protein deposition with organized structure. The preliminary results were discussed with Dr. Villatoro on 10/05/[address] Benites. 10/23/2025 2:47 PM EST [facility] Comment:Corrected result: Pr eviously reported as [Previous value contains rich text formatting which cannot be displayed here] (see Result History) on 10/11/2025 at 1643 EST. Clinical Information YOLI Mr. Best is a 70-year-old man with a history of esophageal/gastroeso phageal junction adenocarcinoma (previously treated with FLOT-D from 08/03/25-08/31/25, now on ipilimumab/nivolumab since 09/13/25) and prostatomegaly with chronic urinary retention requiring intermittent indwelling urinary catheterization under Urology care. His baseline serum creatinine ranges 0.9-1.1 mg/dL. The creatinine at the time of consult was 9.91 mg/dL. Recommend initiating prednisone 80 mg daily starting 09/30/25 and discussed with the patient that the expected benefits outweigh the risks, even in the context of his recent infections, including C. difficile. It was agreed with blood transfusion and continuation of IV antibiotics for treatment of UTI. A kidney biopsy was performed to evaluate the renal function. 10/23/2025 2:47 PM EST [facility] Microscopic Description Five H&E, two PAS, two trichrome, and two methenamine Perales glass slides are examined. The renal biopsy consists of kidney cortex, a profile of eight glomeruli are identified on paraffin and frozen sections, one of them being globally sclerosed (1/8, 13%). The non-obsolescent glomeruli are of normal size and show normal mesangial matrix and cellularity. No glomerular fibrinoid necrosis/cellular crescents, glomerular basement membranes breaks, spikes or double contours are seen. Mild to moderate cortical tubular atrophy is present. Focal epithelial simplification and isometric cytoplasmic vacuolization of the cortical tubular epithelial cells is also identified, consistent with acute tubular necrosis. Moderate interstitial lymphocytic inflammatory infiltrate with scattered eosinophils is seen, focally associated with mild lymphocytic tubulitis. The trichrome stain highlights severe interstitial edema and fiber. The small intrarenal arteries display moderate to severe fibrointimal thickening. No arterioles are available for evaluation. No vasculitis, thromboemboli or thrombotic microangiopathy is identified in the examined vessels. The cytomegalovirus, herpes simplex virus, adenovirus, parvovirus B19 and BK virus immunostains are negative. Immunofluorescence microscopy: The sections from frozen tissue stained for H&E revealed a profile of three glomeruli, none of them being globally sclerosed. Ig-2 + linear diffuse nonspecific staining in the glomerular basement membranes and tubular basement membranes. IgM: Negative staining in the glomeruli and renal interstitium, 2 to 3+ staining of the tubular casts. IgA: Negative staining, in the glomeruli and renal interstitium, 3+ staining of the tubular casts. C1q: Negative staining. C3: Negative staining in the capillary loops and mesangial areas, 2+ short linear staining in the tubular basement membranes and arterioles. Fibrinogen: Negative staining. Albumin: 1 to 2+ linear diffuse nonspecific staining in the glomerular basement membranes and tubular basement membranes. Esko: Negative staining of the glomeruli and renal interstitium, 2 to 3+ staining in the tubular casts. Lambda: Negative staining of the glomeruli and renal interstitium, 2 to 3+ staining in the tubular casts. All controls are appropriate. Electron microscopy: The glutaraldehyde fixed tissue initially allocated for ultrastructural evaluation was processed in six plastic embedded blocks. The toluidine blue stained thick sections reveal a profile of three glomeruli, none of them being globally sclerosed. The three glomeruli and surrounding kidney parenchyma are selected for ultrastructural evaluation. The Fernandez's capsule is artifactually disrupted. The vast majority of foot processes are discrete with only minimal effacement identified (less than 5% of the capillary surface area).. The glomerular basement membranes are of normal texture, variably wrinkled, and of normal thickness. The mesangium is not expanded. Normal fenestration of endothelial cells is identified, and the majority of capillary loops are patent some of them containing circulating RBCs. One small mesangial electron dense deposits with a homogeneous appearance is identified consistent with hyaline deposition. No ultrastructural findings of immune complex deposits or protein deposition with organized substructure are identified. 10/23/2025 2:47 PM [facility] Comment:Corrected result: Pr eviously reported as [Previous value contains rich text formatting which cannot be displayed here] (see Result History) on 10/11/2025 at 1643 EST. Gross Description A. The specimen is received fresh and consists of 2 mckeon-pink tissue core fragments ranging in length from 0.8 to 1.1 cm, and measuring approximately 0.1 cm in diameter. The tissue is divided for light, immunofluorescence and electron microscopy studies. The tissue for electron microscopy is sent to [facility] for processing and photographing. Cold Time: 9:11 10/23/2025 2:47 PM [facility] Note: A resident was involved in the service. I attest I examined the relevant preparations for the specimens and confirmed the diagnosis or interpretation. 10/23/2025 2:47 PM [facility] Tissue Left kidney structure / Unknown Non-blood Collection / Unknown 10/04/2025 9:11 AM EST 10/04/2025 9:25 AM EST us Cristel Page MD LAB PATHOLOG Y ORDERABLES Edited Result - Final [facility] [address] [place] [address] * (ABNORMAL) Comprehensive Metabolic Panel, Plasma (10/04/2025 5:49 AM EST) Glucose, Plasma 92 74 - 99 mg/dL 10/04/2025 6:46 AM EST [facility] BUN, Plasma 69(H) 8 - 23 mg/dL 10/04/2025 6:46 AM EST [facility] Creatinine, Plasma 6.33(H) 0.70 - 1.20 mg/dL 10/04/2025 6:46 AM EST [facility] BUN/Creatinine Ratio 11 10/04/2025 6:46 AM EST [facility] Sodium, Plasma 137 136 - 145 mmol/L 10/04/2025 6:46 AM EST [facility] Potassium, Plasma 4.1 3.6 - 4.9 mmol/L 10/04/2025 6:46 AM EST [facility] Chloride, Plasma 107 97 - 107 mmol/L 10/04/2025 6:46 AM EST [facility] CO2, Plasma 19(L) 22 - 29 mmol/L 10/04/2025 6:46 AM EST [facility] Anion Gap 11 6 - 16 mmol/L 10/04/2025 6:46 AM EST [facility] Total Calcium, Plasma 8.3(L) 8.9 - 10.2 mg/dL 10/04/2025 6:46 AM EST [facility] Total Protein 5.3(L) 6.3 - 7.9 g/dL 10/04/2025 6:46 AM EST [facility] Albumin, Plasma 2.4(L) 3.5 - 5.2 g/dL 10/04/2025 6:46 AM EST [facility] AST, Plasma 39 10 - 50 U/L 10/04/2025 6:46 AM EST [facility] ALT, Plasma 33 10 - 50 U/L 10/04/2025 6:46 AM EST [facility] Alkaline Phosphatase, Plasma 74 40 - 115 U/L 10/04/2025 6:46 AM EST [facility] Total Bilirubin, Plasma 0.3 0.2 - 1.1 mg/dL 10/04/2025 6:46 AM EST [facility] eGFRcr 8.8 mL/min/1.7 3m*2 10/04/2025 6:46 AM EST [facility] Comment:Reported eGFRcr in m L/min/1.73m2 is based the CKD-EPI 2020 equation that does not use a race coefficient. Blood Venous blood specimen / Unknown Venipuncture / Unknown 10/04/2025 5:49 AM EST 10/04/2025 6:16 AM EST us Sue Malcolm MD LAB BLOOD ORDERABLES Final Res ult Performing Organization Address City/[facility]/ZIP Co de Phone Number [facility] [address] [place] [address] * Magnesium, Plasma (10/04/2025 5:49 AM EST) Magnesium, Plasma 1.9 1.9 - 2.4 mg/dL 10/04/2025 6:46 AM EST [facility] Blood Venous blood specimen / Unknown Venipuncture / Unknown 10/04/2025 5:49 AM EST 10/04/2025 6:16 AM EST us Sue Malcolm MD LAB BLOOD ORDERABLES Final Res ult [facility] [address] [place] [address] * (ABNORMAL) Phosphorus, Plasma (10/04/2025 5:49 AM EST) Phosphorus, Plasma 5.1(H) 2.5 - 4.5 mg/dL 10/04/2025 6:46 AM EST [facility] Blood Venous blood specimen / Unknown Venipuncture / Unknown 10/04/2025 5:49 AM EST 10/04/2025 6:16 AM EST us Sue Malcolm MD LAB BLOOD ORDERABLES Final Res ult [facility] [address] [place] [address] * (ABNORMAL) CBC and Differential (10/04/2025 5:49 AM EST) WBC Count 8.94 3.70 - 10.30 10*3/uL LAB HEMATOLOGY METHOD 10/04/2025 6:26 AM EST [facility] RBC Count 2.91(L) 4.60 - 6.10 10*6/uL LAB HEMATOLOGY METHOD 10/04/2025 6:26 AM EST [facility] HGB 8.3(L) 13.7 - 17.5 g/dL LAB HEMATOLOGY METHOD 10/04/2025 6:26 AM EST [facility] HCT 25.9(L) 40.0 - 51.0 % LAB HEMATOLOGY METHOD 10/04/2025 6:26 AM EST [facility] Platelet Count 335 155 - 369 10*3/uL LAB HEMATOLOGY METHOD 10/04/2025 6:26 AM EST [facility] MCV 89 79 - 98 fL LAB HEMATOLOGY METHOD 10/04/2025 6:26 AM EST [facility] MCH 28.5 26.0 - 32.0 pg LAB HEMATOLOGY METHOD 10/04/2025 6:26 AM EST [facility] MCHC 32.0 30.7 - 35.5 g/dL LAB HEMATOLOGY METHOD 10/04/2025 6:26 AM EST [facility] RDW 15.0(H) 11.5 - 14.5 % LAB HEMATOLOGY METHOD 10/04/2025 6:26 AM EST [facility] MPV 10.1 8.8 - 12.5 fL LAB HEMATOLOGY METHOD 10/04/2025 6:26 AM EST [facility] nRBC 0.0 <=0.0 per 100 WBCs LAB HEMATOLOGY METHOD 10/04/2025 6:26 AM EST [facility] Differential Type Automated LAB HEMATOLOGY METHOD 10/04/2025 6:26 AM EST [facility] Neutrophils % 68 % LAB HEMATOLOGY METHOD 10/04/2025 6:26 AM EST [facility] Lymphocytes % 20 % LAB HEMATOLOGY METHOD 10/04/2025 6:26 AM EST [facility] Monocytes % 11 % LAB HEMATOLOGY METHOD 10/04/2025 6:26 AM EST [facility] Eosinophils % 0 % LAB HEMATOLOGY METHOD 10/04/2025 6:26 AM EST [facility] Basophils % 0 % LAB HEMATOLOGY METHOD 10/04/2025 6:26 AM EST [facility] Immature Granulocytes % 1 % LAB HEMATOLOGY METHOD 10/04/2025 6:26 AM EST [facility] Neutrophils Absolute 6.09 1.60 - 6.10 10*3/uL LAB HEMATOLOGY METHOD 10/04/2025 6:26 AM EST [facility] Lymphocytes Absolute 1.80 1.20 - 3.90 10*3/uL LAB HEMATOLOGY METHOD 10/04/2025 6:26 AM EST [facility] Monocytes Absolute 0.96(H) 0.30 - 0.90 10*3/uL LAB HEMATOLOGY METHOD 10/04/2025 6:26 AM EST [facility] Eosinophils Absolute 0.00 0.00 - 0.50 10*3/uL LAB HEMATOLOGY METHOD 10/04/2025 6:26 AM EST [facility] Basophils Absolute 0.01 0.00 - 0.10 10*3/uL LAB HEMATOLOGY METHOD 10/04/2025 6:26 AM [facility] Immature Granulocytes Absolute 0.08(H) 0.00 - 0.06 10*3/uL LAB HEMATOLOGY METHOD 10/04/2025 6:26 AM EST [facility] Blood Venous blood specimen / Unknown Venipuncture / Unknown 10/04/2025 5:49 AM EST 10/04/2025 6:17 AM EST [facility] - 10/04/2025 6:26 AM EST Therapeutic decision making should be based on absolute values, rather than percentages. us Sue Malcolm MD LAB BLOOD ORDERABLES Final Res ult [facility] [address] [place] [address] * Transfuse RBC (10/04/2025 12:16 AM EST) us Sue Malcolm MD BLOOD TRANSFUSION ORDERABLES F inal Result * Transfuse RBC: 1 Units (10/04/2025 12:16 AM EST) us Sue Malcolm MD BLOOD TRANSFUSION ORDERABLES F inal Result * Type and screen (10/03/2025 8:33 PM EST) ABO/Rh A Negative 10/03/2025 8:40 PM EST [facility]LOOD [facility]ANK Antibody Screen Negative 10/03/2025 8:40 PM EST [facility] Specimen Expiration 10/06/2025 23:59 10/03/2025 8:40 PM EST [facility]LO[facility] Blood Venous blood specimen / Unknown Venipuncture / Unknown 10/03/2025 8:33 PM EST 10/03/2025 8:40 PM EST us Sue Malcolm MD LAB BLOOD BANK TEST ORDERABLES Final Result Performing Organization Address City/[facility]/ZIP Co de Phone Number BLOOD BANK [address] [place] [address], * Prepare Leukocyte Reduced RBC: 1 Units (10/03/2025 6:54 PM EST) Product Code [id number] CH BLOO D BANK Dispense Status Transfused BLOOD BANK Blood Expiration Date [id number] BLOOD BANK Unit Number [id number] B LOOD BANK Product Blood Type 0600 BLOOD BANK Blood Type A- BLOOD BANK Crossmatch Compatible BLOOD BANK Other us Sue Malcolm MD BLOOD BANK PRODUCT ORDERABLES Final Result BLOOD BANK [address] * (ABNORMAL) Renal Function Panel, Plasma (10/03/2025 6:18 AM EST) Glucose, Plasma 115(H) 74 - 99 mg/dL 10/03/2025 6:47 AM EST [facility] BUN, Plasma 70(H) 8 - 23 mg/dL 10/03/2025 6:47 AM EST [facility] Creatinine, Plasma 7.49(H) 0.70 - 1.20 mg/dL 10/03/2025 6:47 AM EST [facility] BUN/Creatinine Ratio 9 10/03/2025 6:47 AM EST [facility] Sodium, Plasma 138 136 - 145 mmol/L 10/03/2025 6:47 AM EST [facility] Potassium, Plasma 4.5 3.6 - 4.9 mmol/L 10/03/2025 6:47 AM EST [facility] Chloride, Plasma 107 97 - 107 mmol/L 10/03/2025 6:47 AM EST [facility] CO2, Plasma 18(L) 22 - 29 mmol/L 10/03/2025 6:47 AM EST [facility] Anion Gap 13 6 - 16 mmol/L 10/03/2025 6:47 AM EST [facility] Total Calcium, Plasma 8.1(L) 8.9 - 10.2 mg/dL 10/03/2025 6:47 AM EST [facility] Phosphorus, Plasma 5.5(H) 2.5 - 4.5 mg/dL 10/03/2025 6:47 AM EST [facility] Albumin, Plasma 2.3(L) 3.5 - 5.2 g/dL 10/03/2025 6:47 AM EST [facility] eGFRcr 7.2 mL/min/1.7 3m*2 10/03/2025 6:47 AM EST [facility] Comment:Reported eGFRcr in m L/min/1.73m2 is based the CKD-EPI 2020 equation that does not use a race coefficient. Blood Venous blood specimen / Unknown Venipuncture / Unknown 10/03/2025 6:18 AM EST 10/03/2025 6:20 AM EST us Sue Malcolm MD LAB BLOOD ORDERABLES Final Res ult [facility] [address] [place] [address] * (ABNORMAL) CBC W/O Differential (10/03/2025 6:18 AM EST) WBC Count 8.53 3.70 - 10.30 10*3/uL LAB HEMATOLOGY METHOD 10/03/2025 6:32 AM EST [facility] RBC Count 2.51(L) 4.60 - 6.10 10*6/uL LAB HEMATOLOGY METHOD 10/03/2025 6:32 AM EST [facility] HGB 7.1(L) 13.7 - 17.5 g/dL LAB HEMATOLOGY METHOD 10/03/2025 6:32 AM EST [facility] HCT 22.6(L) 40.0 - 51.0 % LAB HEMATOLOGY METHOD 10/03/2025 6:32 AM EST [facility] Platelet Count 334 155 - 369 10*3/uL LAB HEMATOLOGY METHOD 10/03/2025 6:32 AM EST [facility] MCV 90 79 - 98 fL LAB HEMATOLOGY METHOD 10/03/2025 6:32 AM EST [facility] MCH 28.3 26.0 - 32.0 pg LAB HEMATOLOGY METHOD 10/03/2025 6:32 AM EST [facility] MCHC 31.4 30.7 - 35.5 g/dL LAB HEMATOLOGY METHOD 10/03/2025 6:32 AM EST [facility] RDW 15.3(H) 11.5 - 14.5 % LAB HEMATOLOGY METHOD 10/03/2025 6:32 AM EST [facility] MPV 9.7 8.8 - 12.5 fL LAB HEMATOLOGY METHOD 10/03/2025 6:32 AM EST [facility] nRBC 0.0 <=0.0 per 100 WBCs LAB HEMATOLOGY METHOD 10/03/2025 6:32 AM EST [facility] Blood Venous blood specimen / Unknown Venipuncture / Unknown 10/03/2025 6:18 AM EST 10/03/2025 6:20 AM EST us Sue Malcolm MD LAB BLOOD ORDERABLES Final Res ult [facility] [address] [place] [address] * (ABNORMAL) Renal Function Panel, Plasma (10/02/2025 6:11 AM EST) Glucose, Plasma 119(H) 74 - 99 mg/dL 10/02/2025 6:43 AM EST [facility] BUN, Plasma 65(H) 8 - 23 mg/dL 10/02/2025 6:43 AM EST [facility] Creatinine, Plasma 8.64(H) 0.70 - 1.20 mg/dL 10/02/2025 6:43 AM EST [facility] BUN/Creatinine Ratio 8 10/02/2025 6:43 AM EST [facility] Sodium, Plasma 136 136 - 145 mmol/L 10/02/2025 6:43 AM EST [facility] Potassium, Plasma 4.4 3.6 - 4.9 mmol/L 10/02/2025 6:43 AM EST [facility] Chloride, Plasma 106 97 - 107 mmol/L 10/02/2025 6:43 AM EST [facility] CO2, Plasma 17(L) 22 - 29 mmol/L 10/02/2025 6:43 AM [facility] Anion Gap 13 6 - 16 mmol/L 10/02/2025 6:43 AM EST [facility] Total Calcium, Plasma 8.1(L) 8.9 - 10.2 mg/dL 10/02/2025 6:43 AM EST [facility] Phosphorus, Plasma 5.7(H) 2.5 - 4.5 mg/dL 10/02/2025 6:43 AM EST [facility] Albumin, Plasma 2.4(L) 3.5 - 5.2 g/dL 10/02/2025 6:43 AM [facility] eGFRcr 6.1 mL/min/1.7 3m*2 10/02/2025 6:43 AM [facility] Comment:Reported eGFRcr in m L/min/1.73m2 is based the CKD-EPI 2020 equation that does not use a race coefficient. Blood Venous blood specimen / Unknown Venipuncture / Unknown 10/02/2025 6:11 AM EST 10/02/2025 6:14 AM EST us Sue Malcolm MD LAB BLOOD ORDERABLES Final Res ult [facility] [address] [place] [address] * (ABNORMAL) CBC W/O Differential (10/02/2025 6:11 AM EST) WBC Count 9.85 3.70 - 10.30 10*3/uL LAB HEMATOLOGY METHOD 10/02/2025 6:22 AM EST [facility] RBC Count 2.80(L) 4.60 - 6.10 10*6/uL LAB HEMATOLOGY METHOD 10/02/2025 6:22 AM EST [facility] HGB 7.9(L) 13.7 - 17.5 g/dL LAB HEMATOLOGY METHOD 10/02/2025 6:22 AM EST [facility] HCT 24.8(L) 40.0 - 51.0 % LAB HEMATOLOGY METHOD 10/02/2025 6:22 AM EST [facility] Platelet Count 366 155 - 369 10*3/uL LAB HEMATOLOGY METHOD 10/02/2025 6:22 AM EST [facility] MCV 89 79 - 98 fL LAB HEMATOLOGY METHOD 10/02/2025 6:22 AM EST [facility] MCH 28.2 26.0 - 32.0 pg LAB HEMATOLOGY METHOD 10/02/2025 6:22 AM EST [facility] MCHC 31.9 30.7 - 35.5 g/dL LAB HEMATOLOGY METHOD 10/02/2025 6:22 AM EST [facility] RDW 15.3(H) 11.5 - 14.5 % LAB HEMATOLOGY METHOD 10/02/2025 6:22 AM EST [facility] MPV 9.5 8.8 - 12.5 fL LAB HEMATOLOGY METHOD 10/02/2025 6:22 AM EST [facility] nRBC 0.0 <=0.0 per 100 WBCs LAB HEMATOLOGY METHOD 10/02/2025 6:22 AM EST [facility] Blood Venous blood specimen / Unknown Venipuncture / Unknown 10/02/2025 6:11 AM EST 10/02/2025 6:14 AM EST us Sue Malcolm MD LAB BLOOD ORDERABLES Final Res ult [facility] [address] [place] [address] * (ABNORMAL) Comprehensive Metabolic Panel, Plasma (10/01/2025 3:34 AM EST) Glucose, Plasma 158(H) 74 - 99 mg/dL 10/01/2025 4:06 AM EST [facility] BUN, Plasma 62(H) 8 - 23 mg/dL 10/01/2025 4:06 AM EST [facility] Creatinine, Plasma 9.91(H) 0.70 - 1.20 mg/dL 10/01/2025 4:06 AM EST [facility] BUN/Creatinine Ratio 6 10/01/2025 4:06 AM EST [facility] Sodium, Plasma 134(L) 136 - 145 mmol/L 10/01/2025 4:06 AM EST [facility] Potassium, Plasma 4.6 3.6 - 4.9 mmol/L 10/01/2025 4:06 AM EST [facility] Chloride, Plasma 101 97 - 107 mmol/L 10/01/2025 4:06 AM EST [facility] CO2, Plasma 19(L) 22 - 29 mmol/L 10/01/2025 4:06 AM EST [facility] Anion Gap 14 6 - 16 mmol/L 10/01/2025 4:06 AM EST [facility] Total Calcium, Plasma 7.9(L) 8.9 - 10.2 mg/dL 10/01/2025 4:06 AM EST [facility] Total Protein 5.1(L) 6.3 - 7.9 g/dL 10/01/2025 4:06 AM EST [facility] Albumin, Plasma 2.3(L) 3.5 - 5.2 g/dL 10/01/2025 4:06 AM EST [facility] AST, Plasma 22 10 - 50 U/L 10/01/2025 4:06 AM EST [facility] ALT, Plasma 20 10 - 50 U/L 10/01/2025 4:06 AM EST [facility] Alkaline Phosphatase, Plasma 83 40 - 115 U/L 10/01/2025 4:06 AM EST [facility] Total Bilirubin, Plasma 0.2 0.2 - 1.1 mg/dL 10/01/2025 4:06 AM EST [facility] eGFRcr 5.1 mL/min/1.7 3m*2 10/01/2025 4:06 AM EST [facility] Comment:Reported eGFRcr in m L/min/1.73m2 is based the CKD-EPI 2020 equation that does not use a race coefficient. Blood Venous blood specimen / Unknown Venipuncture / Unknown 10/01/2025 3:34 AM EST 10/01/2025 3:37 AM EST us Sue Malcolm MD LAB BLOOD ORDERABLES Final Res ult Performing Organization Address City/[facility] Co de Phone Number [facility] [address] [place] [address] * Magnesium, Plasma (10/01/2025 3:34 AM EST) Magnesium, Plasma 2.4 1.9 - 2.4 mg/dL 10/01/2025 4:06 AM EST [facility] Blood Venous blood specimen / Unknown Venipuncture / Unknown 10/01/2025 3:34 AM EST 10/01/2025 3:37 AM EST us Sue Malcolm MD LAB BLOOD ORDERABLES Final Res ult Performing Organization Address City/[facility]/ZIP Co de Phone Number [facility] [address] [place] [address] * (ABNORMAL) Phosphorus, Plasma (10/01/2025 3:34 AM EST) Phosphorus, Plasma 5.5(H) 2.5 - 4.5 mg/dL 10/01/2025 4:06 AM EST [facility] Blood Venous blood specimen / Unknown Venipuncture / Unknown 10/01/2025 3:34 AM EST 10/01/2025 3:37 AM EST us Sue Malcolm MD LAB BLOOD ORDERABLES Final Res ult [facility] [address] [place] [address] * (ABNORMAL) CBC and Differential (10/01/2025 3:34 AM EST) WBC Count 4.24 3.70 - 10.30 10*3/uL LAB HEMATOLOGY METHOD 10/01/2025 7:48 AM EST [facility] RBC Count 2.63(L) 4.60 - 6.10 10*6/uL LAB HEMATOLOGY METHOD 10/01/2025 7:48 AM EST [facility] HGB 7.5(L) 13.7 - 17.5 g/dL LAB HEMATOLOGY METHOD 10/01/2025 7:48 AM EST [facility] HCT 23.2(L) 40.0 - 51.0 % LAB HEMATOLOGY METHOD 10/01/2025 7:48 AM EST [facility] Platelet Count 339 155 - 369 10*3/uL LAB HEMATOLOGY METHOD 10/01/2025 7:48 AM EST [facility] MCV 88 79 - 98 fL LAB HEMATOLOGY METHOD 10/01/2025 7:48 AM EST [facility] MCH 28.5 26.0 - 32.0 pg LAB HEMATOLOGY METHOD 10/01/2025 7:48 AM EST [facility] MCHC 32.3 30.7 - 35.5 g/dL LAB HEMATOLOGY METHOD 10/01/2025 7:48 AM EST [facility] RDW 15.0(H) 11.5 - 14.5 % LAB HEMATOLOGY METHOD 10/01/2025 7:48 AM EST [facility] MPV 9.5 8.8 - 12.5 fL LAB HEMATOLOGY METHOD 10/01/2025 7:48 AM EST [facility] nRBC 0.0 <=0.0 per 100 WBCs LAB HEMATOLOGY METHOD 10/01/2025 7:48 AM EST [facility] Differential Type Automated LAB HEMATOLOGY METHOD 10/01/2025 7:48 AM EST [facility] Neutrophils % 76 % LAB HEMATOLOGY METHOD 10/01/2025 7:48 AM EST [facility] Lymphocytes % 21 % LAB HEMATOLOGY METHOD 10/01/2025 7:48 AM EST [facility] Monocytes % 2 % LAB HEMATOLOGY METHOD 10/01/2025 7:48 AM EST [facility] Eosinophils % 0 % LAB HEMATOLOGY METHOD 10/01/2025 7:48 AM EST [facility] Basophils % 0 % LAB HEMATOLOGY METHOD 10/01/2025 7:48 AM EST [facility] Immature Granulocytes % 1 % LAB HEMATOLOGY METHOD 10/01/2025 7:48 AM EST [facility] Neutrophils Absolute 3.24 1.60 - 6.10 10*3/uL LAB HEMATOLOGY METHOD 10/01/2025 7:48 AM EST [facility] Lymphocytes Absolute 0.89(L) 1.20 - 3.90 10*3/uL LAB HEMATOLOGY METHOD 10/01/2025 7:48 AM EST [facility] Monocytes Absolute 0.07(L) 0.30 - 0.90 10*3/uL LAB HEMATOLOGY METHOD 10/01/2025 7:48 AM EST [facility] Eosinophils Absolute 0.00 0.00 - 0.50 10*3/uL LAB HEMATOLOGY METHOD 10/01/2025 7:48 AM EST [facility] Basophils Absolute 0.01 0.00 - 0.10 10*3/uL LAB HEMATOLOGY METHOD 10/01/2025 7:48 AM EST [facility] Immature Granulocytes Absolute 0.03 0.00 - 0.06 10*3/uL LAB HEMATOLOGY METHOD 10/01/2025 7:48 AM EST [facility] Blood Venous blood specimen / Unknown Venipuncture / Unknown 10/01/2025 3:34 AM EST 10/01/2025 3:37 AM EST Narrative [facility] - 10/01/2025 7:48 AM EST Therapeutic decision making should be based on absolute values, rather than percentages. us Sue Malcolm MD LAB BLOOD ORDERABLES Final Res ult [facility] [address] [place] [address] * Transfuse RBC (09/30/2025 5:35 PM EST) us Sue Malcolm MD BLOOD TRANSFUSION ORDERABLES F inal Result * Transfuse RBC: 1 Units (09/30/2025 5:35 PM EST) us Sue Malcolm MD BLOOD TRANSFUSION ORDERABLES F inal Result * Type and screen (09/30/2025 10:00 AM EST) ABO/Rh A Negative 09/30/2025 10:04 AM EST [facility] Antibody Screen Negative 09/30/2025 10:04 AM EST [facility] Specimen Expiration 10/03/2025 23:59 09/30/2025 10:04 AM EST BLOOD [facility] Blood Venous blood specimen / Unknown Venipuncture / Unknown 09/30/2025 10:00 AM EST 09/30/2025 10:04 AM EST us Sue Malcolm MD LAB BLOOD BANK TEST ORDERABLES Final Result Performing Organization Address [facility] de Phone Number BLOOD BANK [address] [place] [address], [place] * Prepare Leukocyte Reduced RBC: 1 Units (09/30/2025 8:52 AM EST) Product Code [id number] CH BLOO D BANK Dispense Status Transfused BLOOD BANK Blood Expiration Date [id number] BLOOD BANK Unit Number [id number] B LOOD BANK Product Blood Type 9500 BLOOD BANK Blood Type O- BLOOD BANK Crossmatch Compatible BLOOD BANK Other us Sue Malcolm MD BLOOD BANK PRODUCT ORDERABLES Final Result Performing Organization Address [facility] Co de Phone Number BLOOD BANK [address] [place] [address], [place] * (ABNORMAL) CBC (09/30/2025 4:17 AM EST) WBC Count 8.96 3.70 - 10.30 10*3/uL LAB HEMATOLOGY METHOD 09/30/2025 4:25 AM EST [facility] RBC Count 2.30(L) 4.60 - 6.10 10*6/uL LAB HEMATOLOGY METHOD 09/30/2025 4:25 AM EST [facility] HGB 6.6(L) 13.7 - 17.5 g/dL LAB HEMATOLOGY METHOD 09/30/2025 4:25 AM EST [facility] HCT 20.2(L) 40.0 - 51.0 % LAB HEMATOLOGY METHOD 09/30/2025 4:25 AM EST [facility] Platelet Count 376(H) 155 - 369 10*3/uL LAB HEMATOLOGY METHOD 09/30/2025 4:25 AM EST [facility] MCV 88 79 - 98 fL LAB HEMATOLOGY METHOD 09/30/2025 4:25 AM EST [facility] MCH 28.7 26.0 - 32.0 pg LAB HEMATOLOGY METHOD 09/30/2025 4:25 AM EST [facility] MCHC 32.7 30.7 - 35.5 g/dL LAB HEMATOLOGY METHOD 09/30/2025 4:25 AM EST [facility] RDW 14.8(H) 11.5 - 14.5 % LAB HEMATOLOGY METHOD 09/30/2025 4:25 AM EST [facility] MPV 9.0 8.8 - 12.5 fL LAB HEMATOLOGY METHOD 09/30/2025 4:25 AM EST [facility] nRBC 0.0 <=0.0 per 100 WBCs LAB HEMATOLOGY METHOD 09/30/2025 4:25 AM EST [facility] Blood Venous blood specimen / Unknown Venipuncture / Unknown 09/30/2025 4:17 AM EST 09/30/2025 4:20 AM EST Shannon Murrell MD LAB BLOOD ORDERABLES Final Re sult [facility] [address] [place] [address] * (ABNORMAL) Phosphorus (09/30/2025 4:17 AM EST) Pathologist [facility] Phosphorus, Plasma 5.5(H) 2.5 - 4.5 mg/dL 09/30/2025 5:08 AM EST [facility] Blood Venous blood specimen / Unknown Venipuncture / Unknown 09/30/2025 4:17 AM EST 09/30/2025 4:37 AM EST Shannon Murrell MD LAB BLOOD ORDERABLES Final Re sult [facility] [address] [place] [address] * (ABNORMAL) Magnesium, Plasma (09/30/2025 4:17 AM EST) Magnesium, Plasma 1.5(L) 1.9 - 2.4 mg/dL 09/30/2025 5:08 AM EST [facility] Blood Venous blood specimen / Unknown Venipuncture / Unknown 09/30/2025 4:17 AM EST 09/30/2025 4:37 AM EST Shannon Murrell MD LAB BLOOD ORDERABLES Final Re sult Performing Organization Address City/[facility]/ZIP Co de Phone Number [facility] [address] [place] [address] * (ABNORMAL) Basic metabolic panel (09/30/2025 4:17 AM EST) Glucose, Plasma 107(H) 74 - 99 mg/dL 09/30/2025 5:08 AM EST [facility] BUN, Plasma 62(H) 8 - 23 mg/dL 09/30/2025 5:08 AM EST [facility] Creatinine, Plasma 9.91(H) 0.70 - 1.20 mg/dL 09/30/2025 5:08 AM EST [facility] BUN/Creatinine Ratio 6 09/30/2025 5:08 AM EST [facility] Sodium, Plasma 135(L) 136 - 145 mmol/L 09/30/2025 5:08 AM EST [facility] Potassium, Plasma 4.2 3.6 - 4.9 mmol/L 09/30/2025 5:08 AM EST [facility] Chloride, Plasma 102 97 - 107 mmol/L 09/30/2025 5:08 AM EST [facility] CO2, Plasma 20(L) 22 - 29 mmol/L 09/30/2025 5:08 AM EST [facility] Anion Gap 13 6 - 16 mmol/L 09/30/2025 5:08 AM EST [facility] Total Calcium, Plasma 7.8(L) 8.9 - 10.2 mg/dL 09/30/2025 5:08 AM EST [facility] eGFRcr 5.1 mL/min/1.7 3m*2 09/30/2025 5:08 AM EST [facility] Comment:Reported eGFRcr in m L/min/1.73m2 is based the CKD-EPI 2020 equation that does not use a race coefficient. Blood Venous blood specimen / Unknown Venipuncture / Unknown 09/30/2025 4:17 AM EST 09/30/2025 4:37 AM EST Shannon Murrell MD LAB BLOOD ORDERABLES Final Re sult Performing Organization Address City/[facility]/ZIP Co de Phone Number [facility] [address] [place] [address] * SEND SCAR MESSAGE (09/29/2025 1:46 PM EST) Urine Urine specimen obtained by clean catch procedure / Unknown Non-blood Collection / Unknown 09/29/2025 1:46 PM EST 09/29/2025 2:20 PM EST Ericka KERR LAB URINE ORDERABLES Final Res ult Performing Organization Address [facility]/ZIP Co de Phone Number [facility] [address] [place] [address] * (ABNORMAL) Urine Culture (09/29/2025 1:46 PM EST) Culture >=100,000 CFU/mL Pseudomonas aeruginosa(A) JULIO 10/02/2025 11:14 AM EST [facility] Comment: This isolate has been identified using the FDA Approved [employer] System This is a corrected result. Previous organism was Non-Fermenting Gram Negative Stew on 10/01/2025 at 1005 EST. Culture >=100,000 CFU/mL - Biotype 2 Pseudomonas aeruginosa(A) JULIO 10/02/2025 11:14 AM EST [facility] Comment: This isolate has been identified using the FDA Approved [employer] System The organism value for this result has been updated. These results have been appended to the previously preliminary verified report. Edited result: Previously reported as Gram Negative Stew on 10/01/2025 at 1048 EST. Urine Urine specimen obtained by clean catch procedure / Unknown Non-blood Collection / Unknown 09/29/2025 1:46 PM EST 09/29/2025 2:20 PM EST Narrative Organism Antibiotic Method Susceptibility Pseudomonas aeruginosa Amikacin JULIO <=8 ug/ml: Susceptible Pseudomonas aeruginosa Aztreonam JULIO 8 ug/ml: Susceptible Pseudomonas aeruginosa Cefepime JULIO 2 ug/ml: Susceptible Pseudomonas aeruginosa Levofloxacin JULIO 1 ug/ml: Susceptible Pseudomonas aeruginosa Meropenem JULIO <=0.5 ug/ml: Susceptible Pseudomonas aeruginosa Piperacillin/Tazobactam JULIO 8/4 ug/ml: Susceptible Pseudomonas aeruginosa Tobramycin JULIO Comment:Tobramycin i s no longer reported for JULIO <=2 by automated susceptibility method. If needed for treatment, please order an add on susceptibility for etest Pseudomonas aeruginosa Amikacin JULIO <=8 ug/ml: Susceptible Pseudomonas aeruginosa Aztreonam JULIO 8 ug/ml: Susceptible Pseudomonas aeruginosa Cefepime JULIO 2 ug/ml: Susceptible Pseudomonas aeruginosa Levofloxacin JULIO 1 ug/ml: Susceptible Pseudomonas aeruginosa Meropenem JULIO <=0.5 ug/ml: Susceptible Pseudomonas aeruginosa Piperacillin/Tazobactam JULIO 8/4 ug/ml: Susceptible Pseudomonas aeruginosa Tobramycin JULIO Comment:Tobramycin i s no longer reported for JULIO <=2 by automated susceptibility method. If needed for treatment, please order an add on susceptibility for etest Ericka KERR LAB MICROBIOLOGY - GENERAL ORD ERABLES Final Result Performing Organization Address [facility] de Phone Number [facility] [address] [place] [address] * Urinalysis Microscopic Examination (09/29/2025 1:46 PM EST) Urine Urine specimen obtained by clean catch procedure / Unknown Non-blood Collection / Unknown 09/29/2025 1:46 PM EST 09/29/2025 1:55 PM EST Ericka KERR LAB URINE ORDERABLES Final Res ult Performing Organization Address [facility] de Phone Number [facility] [address] [place] [address] * Urine Oliveira Panel (09/29/2025 1:46 PM EST) Extra Sent for Culture 09/29/2025 4:02 PM EST [facility] Urine Urine specimen obtained by clean catch procedure / Unknown Non-blood Collection / Unknown 09/29/2025 1:46 PM EST 09/29/2025 2:20 PM EST us Ericka KERR LAB URINE ORDERABLES Final Res ult [facility] [address] [place] [address] * (ABNORMAL) Urinalysis with reflex microscopic (Culture NOT Included) (09/29/2025 1:46 PM EST) Color, Urine Yellow LAB URINALYSIS - AUTOMATED METHOD 09/29/2025 2:50 PM EST [facility] Clarity, Urine Cloudy LAB URINALYSIS - AUTOMATED METHOD 09/29/2025 2:50 PM EST [facility] Spec [place], Urine 1.010 1.005 - 1.030 LAB URINALYSIS - AUTOMATED METHOD 09/29/2025 2:50 PM EST [facility] pH, Urine 6.5 5.0 - 8.0 LAB URINALYSIS - AUTOMATED METHOD 09/29/2025 2:50 PM EST [facility] Protein, Urine 30(A) Negative mg/dL LAB URINALYSIS - AUTOMATED METHOD 09/29/2025 2:50 PM EST [facility] Glucose, Urine Negative Negative mg/dL LAB URINALYSIS - AUTOMATED METHOD 09/29/2025 2:50 PM EST [facility] Ketones, Urine Negative Negative mg/dL LAB URINALYSIS - AUTOMATED METHOD 09/29/2025 2:50 PM EST [facility] Blood, Urine Small(A) Negative LAB URINALYSIS - AUTOMATED METHOD 09/29/2025 2:50 PM EST [facility] Bilirubin, Urine Negative Negative LAB URINALYSIS - AUTOMATED METHOD 09/29/2025 2:50 PM EST [facility] Urobilinogen, Urine 0.2 0.2 to 1.0 mg/dL LAB URINALYSIS - AUTOMATED METHOD 09/29/2025 2:50 PM EST [facility] Leukocytes, Urine Large(A) Negative LAB URINALYSIS - AUTOMATED METHOD 09/29/2025 2:50 PM EST [facility] Nitrite, Urine Positive(A) Negative LAB URINALYSIS - AUTOMATED METHOD 09/29/2025 2:50 PM EST [facility] RBC, Urine 2 0 to 3 /HPF LAB URINALYSIS - AUTOMATED METHOD 09/29/2025 2:50 PM EST [facility] Comment:This result was prev iously suppressed from the chart. WBC, Urine >50(A) 0 to 5 /HPF LAB URINALYSIS - AUTOMATED METHOD 09/29/2025 2:50 PM EST [facility] Comment:This result was prev iously suppressed from the chart. Squamous Epithelial Cells 0 - 2 0 to 5 /HPF LAB URINALYSIS - AUTOMATED METHOD 09/29/2025 2:50 PM EST [facility] Comment:This result was prev iously suppressed from the chart. Hyaline Casts 0 - 2 0 to 5 /LPF LAB URINALYSIS - AUTOMATED METHOD 09/29/2025 2:50 PM EST [facility] Comment:This result was prev iously suppressed from the chart. Bacteria, Urine Present Negative LAB URINALYSIS - AUTOMATED METHOD 09/29/2025 2:50 PM EST [facility] Comment:This result was prev iously suppressed from the chart. WBC Clumps Present Absent 09/29/2025 2:50 PM EST [facility] Comment:This result was prev iously suppressed from the chart. Urine Urine specimen obtained by clean catch procedure / Unknown Non-blood Collection / Unknown 09/29/2025 1:46 PM EST 09/29/2025 1:55 PM EST Narrative [facility] - 09/29/2025 2:50 PM EST Performed by manual method us Ericka KERR LAB URINE ORDERABLES Final Res ult [facility] [address] [place] [address] * Creatinine, urine, random (09/29/2025 1:46 PM EST) Creatinine, Urine 84 mg/dL 09/29/2025 2:57 PM EST [facility] Urine Urine specimen obtained by clean catch procedure / Unknown Non-blood Collection / Unknown 09/29/2025 1:46 PM EST 09/29/2025 2:28 PM EST Onel Byrd MD LAB URINE ORDERABLES Final Result Performing Organization Address [facility] Co de Phone Number [facility] [address] [place] [address] * Sodium, urine, random (09/29/2025 1:46 PM EST) Sodium, Urine 71 mmol/L 09/29/2025 2:57 PM EST [facility] Urine Urine specimen obtained by clean catch procedure / Unknown Non-blood Collection / Unknown 09/29/2025 1:46 PM EST 09/29/2025 2:28 PM EST us Onel Byrd MD LAB URINE ORDERABLES Final Result Performing Organization Address [facility] Co de Phone Number [facility] [address] [place] [address] * US Renal Complete (09/29/2025 1:09 PM EST) Anatomical Region Laterality Modality Kidney Ultrasound Impressions 09/29/2025 1:28 PM EST Mildly echogenic kidneys. Bladder catheter is seen within the lumen of the nearly empty bladder. CRITICAL RESULT: No. COMMUNICATION: Per this written report. Drafted by Briseyda Rachel MD on 09/29/2025 1:24 PM Final report signed by Briseyda Rachel MD on 09/29/2025 1:28 PM Narrative 09/29/2025 1:28 PM EST CLINICAL INDICATION: Renal failure TECHNIQUE: Multiplanar oliveira scale sonographic imaging of the kidneys. COMPARISON: None. FINDINGS: Right Kidney: The right kidney is normal in size measuring 12.5 cm. Mildly echogenic cortex. There are no contour deforming masses or calculi. There is no hydronephrosis. There is a well-circumscribed anechoic 9 x 7 mm focus in the midpole of the right kidney. This is consistent with a simple cyst. Left Kidney: The left kidney is normal in size measuring 11.2 cm. There is mildly echogenic appearance of the left kidney. There is minimal cortical thinning at the mid pole. This is nonspecific. There is no hydronephrosis. Bladder: The bladder is mostly decompressed and a bladder catheter is seen within the lumen. Procedure Note Briseyda Rachel MD - 09/29/2025 CLINICAL INDICATION: Renal failure TECHNIQUE: Multiplanar oliveira scale sonographic imaging of the kidneys. COMPARISON: None. FINDINGS: Right Kidney: The right kidney is normal in size measuring 12.5 cm. Mildlyechogenic cortex. There are no contour deforming masses or calculi. Thereis no hydronephrosis. There is a well-circumscribed anechoic 9 x 7 mmfocus in the midpole of the right kidney. This is consistent with a simplecyst. Left Kidney: The left kidney is normal in size measuring 11.2 cm. There ismildly echogenic appearance of the left kidney. There is minimal corticalthinning at the mid pole. This is nonspecific. There is nohydronephrosis. Bladder: The bladder is mostly decompressed and a bladder catheter is seenwithin the lumen. IMPRESSION: Mildly echogenic kidneys. Bladder catheter is seen within the lumen of the nearly empty bladder. CRITICAL RESULT: No. COMMUNICATION: Per this written report. Drafted by Briseyda Rachel MD on 09/29/2025 1:24 PM Final report signed by Briseyda Rachel MD on 09/29/2025 1:28 PM Onel Byrd MD IM US PROCEDURES Final Res ult * (ABNORMAL) Phosphorus (09/29/2025 12:32 PM EST) Phosphorus, Plasma 5.6(H) 2.5 - 4.5 mg/dL 09/29/2025 5:26 PM EST [facility] Blood Venous blood specimen / Unknown Venipuncture / Unknown 09/29/2025 12:32 PM EST 09/29/2025 12:37 PM EST Shannon Murrell MD LAB BLOOD ORDERABLES Final Re sult [facility] [address] [place] [address] * (ABNORMAL) Iron & Total Iron Binding Capacity, Plasma (Includes Transferrin) (09/29/2025 12:32 PM EST) Pathologist [facility] Iron, Plasma 23(L) 50 - 170 ug/dL 09/29/2025 5:26 PM EST [facility] Transferrin, Plasma 127(L) 200 - 360 mg/dL 09/29/2025 5:26 PM EST [facility] Total Iron Binding Capacity, Plasma 159(L) 240 - 450 ug/mL 09/29/2025 5:26 PM EST [facility] Transferrin Saturation 14 14 - 50 % 09/29/2025 5:26 PM EST [facility] Blood Venous blood specimen / Unknown Venipuncture / Unknown 09/29/2025 12:32 PM EST 09/29/2025 12:37 PM EST Shannon Murrell MD LAB BLOOD ORDERABLES Final Re sult [facility] [address] [place] [address] * (ABNORMAL) CBC w/diff (09/29/2025 12:32 PM EST) [facility] WBC Count 8.47 3.70 - 10.30 10*3/uL LAB HEMATOLOGY METHOD 09/29/2025 12:42 PM EST [facility] RBC Count 2.67(L) 4.60 - 6.10 10*6/uL LAB HEMATOLOGY METHOD 09/29/2025 12:42 PM EST [facility] HGB 7.6(L) 13.7 - 17.5 g/dL LAB HEMATOLOGY METHOD 09/29/2025 12:42 PM EST [facility] HCT 23.4(L) 40.0 - 51.0 % LAB HEMATOLOGY METHOD 09/29/2025 12:42 PM EST [facility] Platelet Count 442(H) 155 - 369 10*3/uL LAB HEMATOLOGY METHOD 09/29/2025 12:42 PM [facility] MCV 88 79 - 98 fL LAB HEMATOLOGY METHOD 09/29/2025 12:42 PM [facility] MCH 28.5 26.0 - 32.0 pg LAB HEMATOLOGY METHOD 09/29/2025 12:42 PM [facility] MCHC 32.5 30.7 - 35.5 g/dL LAB HEMATOLOGY METHOD 09/29/2025 12:42 PM [facility] RDW 14.6(H) 11.5 - 14.5 % LAB HEMATOLOGY METHOD 09/29/2025 12:42 PM [facility] MPV 9.1 8.8 - 12.5 fL LAB HEMATOLOGY METHOD 09/29/2025 12:42 PM [facility] nRBC 0.0 <=0.0 per 100 WBCs LAB HEMATOLOGY METHOD 09/29/2025 12:42 PM [facility] Differential Type Automated LAB HEMATOLOGY METHOD 09/29/2025 12:42 PM [facility] Neutrophils % 64 % LAB HEMATOLOGY METHOD 09/29/2025 12:42 PM [facility] Lymphocytes % 14 % LAB HEMATOLOGY METHOD 09/29/2025 12:42 PM [facility] Monocytes % 8 % LAB HEMATOLOGY METHOD 09/29/2025 12:42 PM [facility] Eosinophils % 12 % LAB HEMATOLOGY METHOD 09/29/2025 12:42 PM [facility] Basophils % 1 % LAB HEMATOLOGY METHOD 09/29/2025 12:42 PM [facility] Immature Granulocytes % 1 % LAB HEMATOLOGY METHOD 09/29/2025 12:42 PM [facility] Neutrophils Absolute 5.54 1.60 - 6.10 10*3/uL LAB HEMATOLOGY METHOD 09/29/2025 12:42 PM [facility] Lymphocytes Absolute 1.19(L) 1.20 - 3.90 10*3/uL LAB HEMATOLOGY METHOD 09/29/2025 12:42 PM [facility] Monocytes Absolute 0.67 0.30 - 0.90 10*3/uL LAB HEMATOLOGY METHOD 09/29/2025 12:42 PM [facility] Eosinophils Absolute 0.99(H) 0.00 - 0.50 10*3/uL LAB HEMATOLOGY METHOD 09/29/2025 12:42 PM EST [facility] Basophils Absolute 0.04 0.00 - 0.10 10*3/uL LAB HEMATOLOGY METHOD 09/29/2025 12:42 PM EST [facility] Immature Granulocytes Absolute 0.04 0.00 - 0.06 10*3/uL LAB HEMATOLOGY METHOD 09/29/2025 12:42 PM EST [facility] Blood Venous blood specimen / Unknown Venipuncture / Unknown 09/29/2025 12:32 PM EST 09/29/2025 12:37 PM EST Narrative [facility] - 09/29/2025 12:42 PM EST Therapeutic decision making should be based on absolute values, rather than percentages. us Onel Byrd MD LAB BLOOD ORDERABLES Final Result [facility] [address] [place] [address] * (ABNORMAL) CMP (09/29/2025 12:32 PM EST) Glucose, Plasma 101(H) 74 - 99 mg/dL 09/29/2025 1:12 PM EST [facility] BUN, Plasma 61(H) 8 - 23 mg/dL 09/29/2025 1:12 PM EST [facility] Creatinine, Plasma 10.03(H) 0.70 - 1.20 mg/dL 09/29/2025 1:12 PM EST [facility] BUN/Creatinine Ratio 6 09/29/2025 1:12 PM EST [facility] Sodium, Plasma 133(L) 136 - 145 mmol/L 09/29/2025 1:12 PM EST [facility] Potassium, Plasma 4.0 3.6 - 4.9 mmol/L 09/29/2025 1:12 PM EST [facility] Chloride, Plasma 99 97 - 107 mmol/L 09/29/2025 1:12 PM EST [facility] CO2, Plasma 19(L) 22 - 29 mmol/L 09/29/2025 1:12 PM EST [facility] Anion Gap 15 6 - 16 mmol/L 09/29/2025 1:12 PM EST [facility] Total Calcium, Plasma 8.2(L) 8.9 - 10.2 mg/dL 09/29/2025 1:12 PM EST [facility] Total Protein 5.7(L) 6.3 - 7.9 g/dL 09/29/2025 1:12 PM EST [facility] Albumin, Plasma 2.4(L) 3.5 - 5.2 g/dL 09/29/2025 1:12 PM EST [facility] AST, Plasma 26 10 - 50 U/L 09/29/2025 1:12 PM EST [facility] ALT, Plasma 21 10 - 50 U/L 09/29/2025 1:12 PM EST [facility] Alkaline Phosphatase, Plasma 91 40 - 115 U/L 09/29/2025 1:12 PM EST [facility] Total Bilirubin, Plasma 0.5 0.2 - 1.1 mg/dL 09/29/2025 1:12 PM EST [facility] eGFRcr 5.1 mL/min/1.7 3m*2 09/29/2025 1:12 PM EST [facility] Comment:Reported eGFRcr in m L/min/1.73m2 is based the CKD-EPI 2020 equation that does not use a race coefficient. Blood Venous blood specimen / Unknown Venipuncture / Unknown 09/29/2025 12:32 PM EST 09/29/2025 12:37 PM EST us Onel Byrd MD LAB BLOOD ORDERABLES Final Result Performing Organization Address City/State/[facility] Co de Phone Number [facility] [address] [place] [address] documented in this encounter Visit Diagnoses Diagnosis Obstructive nephropathy- Primary Other specified disorder of kidney and ureter Adenocarcinoma of gastroesophageal junction YOLI (acute kidney injury) Obstructive nephropathy Other specified disorder of kidney and ureter Asymptomatic bacteriuria Other nonspecific finding on examination of urine ATN (acute tubular necrosis) Acute kidney failure with lesion of tubular necrosis CKD (chronic kidney disease) stage 2, GFR 60-89 ml/min Chronic kidney disease, Stage II (mild) Adenocarcinoma of gastroesophageal junction Benign prostatic hyperplasia without lower urinary tract symptoms Dysphagia Thyroid mass Unspecified disorder of thyroid Hypomagnesemia Disorders of magnesium metabolism Hypophosphatemia Disorders of phosphorus metabolism Protein-calorie malnutrition, moderate (CMS/HCC) Malnutrition of moderate degree Anemia, unspecified Asymptomatic bacteriuria Other nonspecific finding on examination of urine Chronic heart failure with preserved ejection fraction (HFpEF) ATN (acute tubular necrosis) Acute kidney failure with lesion of tubular necrosis Azotemia Other abnormal blood chemistry CKD (chronic kidney disease) stage 2, GFR 60-89 ml/min Chronic kidney disease, Stage II (mild) Hyperphosphatemia Disorders of phosphorus metabolism Metabolic acidosis Acidosis YOLI (acute kidney injury) documented in this encounter Admitting Diagnoses Diagnosis Obstructive nephropathy Other specified disorder of kidney and ureter YOLI (acute kidney injury) documented in this encounter Administered Medications Inactive Administered Medications - up to 3 most recent administrations Medication Order MAR Action Action Date Dose Rate Site atovaquone (Mepron) suspension 1,500 mg 1,500 mg, Oral, Daily, First dose on Fri09/30/25 at 1435, Until Discontinued, Routine Given 10/05/2025 10:08 AM EST 1,500 mg Given 10/04/2025 10:44 AM EST 1,500 mg Given 10/03/2025 8:43 AM EST 1,500 mg cefTRIAXone (Rocephin) 2 g in sodium chloride 0.9% 100 mL IVPB (vial adapter required) 2 g, Intravenous, Once, 1 dose, On Marcela 09/29/25 at 1525, STAT New Bag 09/29/2025 4:31 PM EST 2 g 220 mL/h r cefTRIAXone (Rocephin) 2 g in sodium chloride 0.9% 100 mL IVPB (vial adapter required) 2 g, Intravenous, Every 24 hours, 3 doses, First dose on Fri09/30/25 at 1400, Last dose on Fri10/02/25 at 1400, Routine New Bag 10/02/2025 2:51 PM EST 2 g 220 mL/hr New Bag 10/01/2025 2:30 PM EST 2 g 220 mL/hr New Bag 09/30/2025 4:51 PM EST 2 g 220 mL/hr emollient (Thera-Derm, Eucern) moisturizing lotion Topical, 2 times daily, First dose on Fri09/30/25 at 2100, Until Discontinued, Routine Given 10/05/2025 10:[address] Given 10/04/2025 8:56 PM EST Given 10/03/2025 9:00 PM EST famotidine (Pepcid) tablet 10 mg 10 mg, Oral, Daily, First dose (after last modification) on 10/03/25 at 0900, Until Discontinued, Routine Given 10/05/2025 10:09 AM EST 10 mg Given 10/04/2025 10:44 AM EST 10 mg Given 10/03/2025 8:43 AM EST 10 mg famotidine (Pepcid) tablet 20 mg 20 mg, Oral, Every 12 hours, First dose (after last modification) on 10/01/25 at 0245, Until Discontinued, Routine Given 10/01/2025 2:31 PM EST 20 mg Given 10/01/2025 3:10 AM EST 20 mg famotidine (Pepcid) tablet 20 mg 20 mg, Oral, Every 12 hours, First dose (after last modification) on 10/02/25 at 0900, Until Discontinued, Routine Given 10/02/2025 10:00 AM EST 20 mg fentaNYL (Sublimaze) injection Intravenous, As needed, Starting on Fri10/04/25 at 0907, Until Fri10/04/25 at 0907, Routine, Intraprocedure Given 10/04/2025 9:07 AM EST 50 mcg finasteride (Proscar) tablet 5 mg 5 mg, Oral, Daily, First dose on Fri09/29/25 at 1605, Until Discontinued, Routine Given 10/05/2025 10:09 AM EST 5 mg Given 10/04/2025 10:43 AM EST 5 mg Given 10/03/2025 8:42 AM EST 5 mg gi cocktail oral solution 30 mL 30 mL, Oral, 4 times daily PRN, Starting on Fri09/30/25 at 1708, Until Fri10/05/25 at 1947, Routine, heartburn, indigestion, cramping heparin (porcine) injection 5,000 Units 5,000 Units, Subcutaneous, Every 8 hours scheduled, First dose on Fri09/30/25 at 1040, Until Discontinued, Routine, On hold since Fri10/03/2025 at 2359 until manually unheld Given 10/03/2025 9:06 PM EST 5,000 Units Left Upper Arm (Back ) Given 10/03/2025 3:46 PM EST 5,000 Units R ight Upper Abdomen Given 10/03/2025 6:14 AM EST 5,000 Units L eft Lower Abdomen heparin flush (porcine) 100 UNIT/ML injection 500 Units 500 Units, Intracatheter, Once, 1 dose, On Fri10/05/25 at 1600, Routine Given 10/05/2025 4:21 PM EST 500 Units HYDROcodone-acetaminophen (Floral) 5-325 MG per tablet 2.5 mg of hydrocodone 2.5 mg of hydrocodone, Oral, Once, 1 dose, On Fri10/02/25 at 0015, Routine Given 10/01/2025 11:27 PM EST 2.5 mg of hydrocodone lactated Ringer's infusion 1,000 mL 1,000 mL, Intravenous, Once (Bolus), 1 dose, On Fri09/29/25 at 1255, STAT New Bag 09/29/2025 1:42 PM EST 1,000 mL lidocaine (Xylocaine) 1 % injection Intradermal, As needed, Starting on Fri10/04/25 at 0909, Until Fri10/04/25 at 0909, Routine, Intraprocedure Given 10/04/2025 9:09 AM EST 10 mL loperamide (Imodium A-D) tablet 2 mg 2 mg, Oral, 4 times daily PRN, Starting on Fri09/29/25 at 1559, Until Fri10/05/25 at 1947, Routine, diarrhea magnesium sulfate IVPB 4 g 4 g, Intravenous, Once, 1 dose, On Fri09/30/25 at 0855, Routine Restarted 09/30/2025 8:32 PM EST 25 mL/hr Restarted 09/30/2025 8:31 PM EST 25 mL/hr New Bag 09/30/2025 4:39 PM EST 4 g 25 mL/hr midazolam (Versed) injection Intravenous, As needed, Starting on Fri10/04/25 at 0907, Until Fri10/04/25 at 0907, Routine, Intraprocedure Given 10/04/2025 9:07 AM EST 1 mg mupirocin (Bactroban) 2 % ointment 1 Application Each Nostril, 2 times daily, 10 doses, First dose on Fri09/29/25 at 2100, Last dose on Fri10/04/25 at 0900, Routine Given 10/04/2025 10:44 AM EST 1 Application Given 10/03/2025 9:06 PM EST 1 Application Given 10/03/2025 8:43 AM EST 1 Application ondansetron (Zofran) injection 4 mg 4 mg, Intravenous, Once, 1 dose, On Fri09/29/25 at 1200, STAT Given 09/29/2025 4:31 PM EST 4 mg ondansetron (Zofran) injection 4 mg 4 mg, Intravenous, Every 6 hours PRN, Starting on Fri09/29/25 at 1602, Until Fri10/05/25 at 1947, Routine, vomiting, nausea Given 10/01/2025 9:35 PM EST 4 mg Given 09/30/2025 4:39 PM EST 4 mg Given 09/29/2025 4:32 PM EST 4 mg ondansetron ODT (Zofran-ODT) disintegrating tablet 4 mg 4 mg, Oral, Every 6 hours PRN, Starting on Fri09/29/25 at 1602, Until Fri10/05/25 at 1947, Routine, nausea, vomiting Given 10/02/2025 5:35 PM EST 4 mg Given 10/01/2025 2:41 PM EST 4 mg pantoprazole (Protonix) EC tablet 40 mg 40 mg, Oral, Daily, First dose on Fri09/30/25 at 0900, Until Discontinued, Routine Given 09/30/2025 9:5 3 AM EST 40 mg predniSONE (Deltasone) tablet 80 mg 80 mg, Oral, Daily, First dose on Fri09/30/25 at 1450, Until Discontinued, Routine Given 10/05/2025 10: 08 AM EST 80 mg Given 10/04/2025 10:43 AM EST 80 mg Given 10/03/2025 8:42 AM EST 80 mg sodium bicarbonate tablet 650 mg 650 mg, Oral, 3 times daily, First dose on Fri09/29/25 at 1600, Until Discontinued, Routine Given 10/05/2025 10:09 AM EST 650 mg Given 10/04/2025 8:56 PM EST 650 mg Given 10/04/2025 3:36 PM EST 650 mg sodium chloride 0.9 % flush 10 mL 10 mL, Intravenous, Every 12 hours, First dose on Fri09/29/25 at 1600, Until Discontinued, Routine Given 10/01/2025 5:29 PM EST 10 mL Given 10/01/2025 3:11 AM EST 10 mL Given 09/30/2025 8:30 PM EST 10 mL sodium chloride 0.9 % flush 10 mL 10 mL, Intravenous, Every 12 hours, First dose (after last modification) on 10/01/25 at 2100, Until Discontinued, Routine Given 10/05/2025 10: 10 AM EST 10 mL Given 10/04/2025 8:56 PM EST 10 mL Given 10/04/2025 10:45 AM EST 10 mL sodium chloride 0.9 % flush 10 mL 10 mL, Intravenous, As needed, Starting on 10/01/25 at 1943, Until 10/05/25 at 1947, Routine, line care sodium chloride 0.9 % infusion 75 mL/hr, Intravenous, Continuous, Starting on Marcela 09/29/25 at 1600, Until Fri09/30/25 at 1708, Routine New Bag 09/30/2025 12:25 PM EST 75 mL/hr 75 m L/hr New Bag 09/29/2025 6:18 PM EST 75 mL/hr 75 mL/hr sodium chloride 0.9 % infusion 125 mL/hr, Intravenous, Continuous, Starting on Fri09/30/25 at 1045, Until 10/01/25 at 1227, Routine New Bag 09/30/2025 12:28 PM EST 125 mL/hr 125 mL/hr sodium chloride 0.9 % infusion 125 mL/hr, Intravenous, Continuous, Starting on 10/01/25 at 1700, Until 10/02/25 at 1617, Routine New Bag 10/01/2025 11:53 PM EST 125 mL/hr 125 mL/hr New Bag 10/01/2025 4:18 PM EST 125 mL/hr 125 mL/hr sodium chloride 0.9 % infusion 125 mL/hr, Intravenous, Continuous, Starting on 10/02/25 at 2115, Until 10/03/25 at 0620, Routine New Bag 10/02/2025 8:21 PM EST 125 mL/hr 125 m L/hr tamsulosin (Flomax) 24 hr capsule 0.4 mg 0.4 mg, Oral, Daily with dinner, First dose on Marcela 09/29/25 at 1800, Until Discontinued, Routine Given 10/04/2025 6:27 PM EST 0.4 mg Given 10/03/2025 6:40 PM EST 0.4 mg Given 10/02/2025 5:34 PM EST 0.4 mg documented in this encounter Active and Recently Administered Medications Times are shown in EST. Scheduled Medication Order 10/03/2025 10/04/2025 10/05/2025 atovaquone (Mepron) suspension 1,500 mg 1,500 mg, Oral, Daily, First dose on Fri09/30/25 at 1435, Until Discontinued, Routine 0843 (Given - Provider: Loni Barth RN) 1044 (Given - Provider: Loni Barth RN) 1008 (Given - Provider: Loni Barth RN) emollient (Thera-Derm, Eucern) moisturizing lotion Topical, 2 times daily, First dose on Fri09/30/25 at 2100, Until Discontinued, Routine 0851 (Not Given - Provider: Loni Barth RN - Reason: Patient/Family/Repre sentative Refused)2100 (Given - Provider: Cornel Barrett RN) 1044 (Not Given - Provider: Loni Barth RN - Reason: Patient in procedure)2055 (Given - Provider: Odilia Su RN) 1010 (Given - Provider: Loni Barth RN) famotidine (Pepcid) tablet 10 mg 10 mg, Oral, Daily, First dose (after last modification) on Fri10/03/25 at 0900, Until Discontinued, Routine 0843 (Given - Provider: Loni Barth RN) 1044 (Given - Provider: Loni Barth RN) 1009 (Given - Provider: Loni Barth RN) finasteride (Proscar) tablet 5 mg 5 mg, Oral, Daily, First dose on Fri09/29/25 at 1605, Until Discontinued, Routine 0842 (Given - Provider: Loni Barth RN) 1043 (Given - Provider: Loni Barth RN) 1009 (Given - Provider: Loni Barth RN) heparin (porcine) injection 5,000 Units 5,000 Units, Subcutaneous, Every 8 hours scheduled, First dose on Fri09/30/25 at 1040, Until Discontinued, Routine, On hold since Fri10/03/2025 at 2359 until manually unheld 0614 (Given - Provider: Odilia Su RN)1546 (Given - Provider: Odilia Vizcarra RN)210 (Given - Provider: Cornel Barrett, RN)2359 (Held by provider - Provider: Sue Malcolm MD - Reason: Upcoming test/procedure) 0600 (Dose Auto Held - Provider: Sue Malcolm MD)1400 (Dose Auto Held - Provider: Sue Malcolm MD)2200 (Dose Auto Held - Provider: Sue Malcolm MD) 0600 (Dose Auto Held - Provider: Sue Malcolm MD)1400 (Dose Auto Held - Provider: Sue Malcolm MD)1947 (Unheld by provider - Provider: Automatic Discharge Provider) heparin flush (porcine) 100 UNIT/ML injection 500 Units (COMPLETED) 500 Units, Intracatheter, Once, 1 dose, On Fri10/05/25 at 1600, Routine 1621 (Given - Provid er: Loni Barth RN) mupirocin (Bactroban) 2 % ointment 1 Application (COMPLETED) Each Nostril, 2 times daily, 10 doses, First dose on Fri09/29/25 at 2100, Last dose on Fri10/04/25 at 0900, Routine 0843 (Given - Provider: Loni Barth RN)210 (Given - Provider: Cornel Barrett, YAHAIRA) 1044 (Given - Provider: Loni Barth RN) predniSONE (Deltasone) tablet 80 mg 80 mg, Oral, Daily, First dose on Fri09/30/25 at 1450, Until Discontinued, Routine 0842 (Given - Provider: Loni Barth RN) 1043 (Given - Provider: Loni Barth RN) 1008 (Given - Provider: Loni Barth RN) sodium bicarbonate tablet 650 mg 650 mg, Oral, 3 times daily, First dose on Fri09/29/25 at 1600, Until Discontinued, Routine 0843 (Given - Provider: Loni Barth RN)154 (Given - Provider: Odilia Vizcarra RN)2105 (Given - Provider: Cornel Barrett, YAHAIRA) 1043 (Given - Provider: Loni Barth, YAHAIRA)1536 (Given - Provider: Loni Barth RN)2055 (Given - Provider: Odilia Su RN) 1009 (Given - Provider: Loni Barth RN)1624 (Not Given - Provider: Loni Barth RN - Reason: Patient/Family/Represen tative Refused) sodium chloride 0.9 % flush 10 mL(Linked Group 1) 10 mL, Intravenous, Every 12 hours, First dose (after last modification) on 10/01/25 at 2100, Until Discontinued, Routine 0849 (Given - Provider: Loni Barth RN)2105 (Given - Provider: Cornel Barrett RN) 104 (Given - Provider: Loni Barth RN)2055 (Given - Provider: Odilia Su RN) 1010 (Given - Provider: Loni Barth RN) tamsulosin (Flomax) 24 hr capsule 0.4 mg 0.4 mg, Oral, Daily with dinner, First dose on Marcela 09/29/25 at 1800, Until Discontinued, Routine 1840 (Given - Provider: Loni Barth RN) 1827 (Given - Provider: Loni Barth RN) 1800 (Canceled Entry - Provider: Automatic Discharge Provider - Comment: Automatically canceled at discontinue of medication order) PRN Medication Order 10/03/2025 10/04/2025 10/05/2025 fentaNYL (Sublimaze) injection (COMPLETED) Intravenous, As needed, Starting on Fri10/04/25 at 0907, Until Fri10/04/25 at 0907, Routine, Intraprocedure 0907 (Given - Provider: Derek Guzmán, YAHAIRA) gi cocktail oral solution 30 mL 30 mL, Oral, 4 times daily PRN, Starting on Fri09/30/25 at 1708, Until Fri10/05/25 at 1947, Routine, heartburn, indigestion, cramping lidocaine (Uro-Jet) 2 % gel 1 Application Urethral, As needed, Starting on Fri10/05/25 at 1257, Until Fri10/05/25 at 1947, Routine, Mild + Pain > or =1: CPOT, DVPRS, FLACC, PAINAD, NPASS, NRS, Apple-Lynne Faces; > or =2: NIPS , Adult Male Difficult Insertion Protocol-use with Coude Catheter insertion lidocaine (Xylocaine) 1 % injection (COMPLETED) Intradermal, As needed, Starting on Fri10/04/25 at 0909, Until Fri10/04/25 at 0909, Routine, Intraprocedure 09 (Given - Provider: Obey Page MD) loperamide (Imodium A-D) tablet 2 mg 2 mg, Oral, 4 times daily PRN, Starting on Marcela 09/29/25 at 1559, Until Fri10/05/25 at 194, Routine, diarrhea midazolam (Versed) injection (COMPLETED) Intravenous, As needed, Starting on Fri10/04/25 at 0907, Until Fri10/04/25 at 0907, Routine, Intraprocedure 09 (Given - Provider: Derek Guzmán RN) ondansetron (Zofran) injection 4 mg(Linked Group 2) 4 mg, Intravenous, Every 6 hours PRN, Starting on Marcela 09/29/25 at 1602, Until Fri10/05/25 at 194, Routine, vomiting, nausea ondansetron ODT (Zofran-ODT) disintegrating tablet 4 mg(Linked Group 2) 4 mg, Oral, Every 6 hours PRN, Starting on Marcela 09/29/25 at 1602, Until Fri10/05/25 at 1947, Routine, nausea, vomiting sodium chloride 0.9 % flush 10 mL(Linked Group 1) 10 mL, Intravenous, As needed, Starting on 10/01/25 at 1943, Until Fri10/05/25 at 194, Routine, line care Linked Groups Order Group 1: Insert peripheral IV (CANCELED) Once, On 10/01/25 at 1944, For 1 occurrence And Saline lock IV (CANCELED) Once, On 10/01/25 at 1944, For 1 occurrence And sodium chloride 0.9 % flush 10 mLJump to med 10 mL, Intravenous, Every 12 hours, First dose (after last modification) on 10/01/25 at 2100, Until Discontinued, Routine And sodium chloride 0.9 % flush 10 mLJump to med 10 mL, Intravenous, As needed, Starting on 10/01/25 at 1943, Until Fri10/05/25 at 1947, Routine, line care Group 2: ondansetron ODT (Zofran-ODT) disintegrating tablet 4 mgJump to med 4 mg, Oral, Every 6 hours PRN, Starting on Marcela 09/29/25 at 1602, Until Fri10/05/25 at 1947, Routine, nausea, vomiting Or ondansetron (Zofran) injection 4 mgJump to med 4 mg, Intravenous, Every 6 hours PRN, Starting on Marcela 09/29/25 at 1602, Until 10/05/25 at 1947, Routine, vomiting, nausea documented in this encounter Additional Health Concerns [...] documented as of this encounter Care Teams Caramel Cutter Helper Relationship Specialty Start Date End Date Darius Ken MD [address] [place] [address] PCP - General Internal Medicine 08/23/24 Yanely Rock DO [address] [place] [address] Surgeon Urology 09/22/25 Rosalinda Cox, YAHAIRA [employer] [place] [place] [facility] 10/04/25 documented as of this encounter
--- OUTSIDE RECORDS SUMMARY | 2025-10-13 10:30 | XMS_ITS | Encounter Summary ---
Author Organization Healthcare Address [address] [place] [address] Care Team Providers Care Web Content Developer Name Role Phone Darius Ken MD Primary Care Provider [phone] Yanely Rock DO Unavailable [phone] Rosalinda Cox RN Unavailable Unavailable Reason for Visit * Reason Comments Follow-up Esophageal Cancer Encounter Details Date Type Department Care Team (Latest Contact Info) Description 10/13/2025 10:30 AM EST Office Visit [facility] Multidisciplinary Oncology Clinic [address] [place] [phone] Aristides Reina MD [address] [place] [address] YOLI (acute kidney injury) (Primary Dx) Social History Tobacco Use Types [...] living in a chcf (including now)? No 10/10/2025 [facility] Utilities Answer Date Recorded In the past 12 months has th e [employer], gas, oil, or water company threatened to [...] Sign Reading Time Taken Comments Blood Pressure - - Pulse - - Temperature - - Respiratory Rate 18 10/13/2025 9:26 AM EST Oxygen Saturation - - Inhaled Oxygen Concentration - - Weight 79.9 kg (176 lb 2.4 oz) 10/13/2025 9:26 A M EST Height 182.9 cm (6') 10/13/2025 9:26 AM EST Body Mass Index 23.89 10/13/2025 9:26 AM EST documented in this encounter Functional Status * Over the past 2 weeks, how often have you been bothered by any of the following problems? Question Answer Date of Assessment Author Little interest or pleasure in doing things Not at all 10/13/2025 9:27 AM EST Sandra Mosley Feeling down, depressed, or hopeless Not at all 10/13/2025 9:27 AM EST Sandra Mosley Patient Health Questionnaire -2 Score 0 10/13/2025 9:27 AM EST Sandra Mosley * Question Answer Date of Assessment Author Thoughts that you would be b evan off or hurting yourself in some way Not at all 10/13/2025 9:27 AM EST Sandra Mosley * How difficult have these problems made it for you to do your work, take care of things at home, or get along with other people? Answer Date of Assessment Author Not difficult at all 10/13/2025 1:45 PM EST Will Vero [email or web address] documented as of this encounter Plan of Treatment Upcoming Encounters Date Type Department Care Team (Latest Contact Info) Description 10/26/2025 2:45 PM EST Office Visit [facility] Head[facility] Neck [facility] Respiratory [address] [facility], 2nd Floor [address] Kim Machado MD [address] [facility] [address] [phone] 10/27/2025 11:00 AM EST Clinical Support [facility] [address], 2nd Floor Wing [address] [address] 11/17/2025 7:50 AM EST Clinical Support [facility] Multidisciplinary Oncology Clinic [address] [place] [address] 11/17/2025 8:00 AM EST Office Visit [facility] [address] [place] [address] Aristides Reina MD [address] [place] [address] 11/17/2025 2:00 PM EST Office Visit [facility] Nephrology, Bone & Mineral Metabolism [address] [facility], [address] [address] 11/21/2025 2:00 PM EST Appointment [facility] Radiology [address], 1st Floor [address] 12/01/2025 1:30 PM EST Office Visit [facility] [address], 2nd Floor [address] [address] Yanely Rock R, [address] [address] 12/14/2025 10:00 AM EST Office Visit [facility] [address] [facility], [address] [address] Juarez Recinos MD [address] [place] [address] 01/13/2026 12:00 PM EST Office Visit [facility] [address] [facility] [address] [place] [address] Eros Mejia MD [address] [place] [address] documented as of this encounter Goals Goal Patient Goal Type Associated Problems Recent Progress Patient-Stated? Author Patient will attend PCP appointment 10/12/2025 Care Plan Appointments On track( 025 4:26 PM EST) No Rosalinda Cox RN Patient will attend nephrology appointment 10/13/2025 Care Plan Appointments On track( 025 4:11 PM EST) Rosalinda Horne RN Consistently take Medications as Prescribed Care Plan Med Adherence On track( 025 4:27 PM EST) No Rosalinda Cox RN documented as of this encounter Results * (ABNORMAL) Comprehensive metabolic panel (10/13/2025 12:23 PM [facility]) [facility] Glucose, Plasma 99 74 - 99 mg/dL 10/13/2025 1:58 PM [facility] BUN, Plasma 45(H) 8 - 23 mg/dL 10/13/2025 1:58 PM [facility] Creatinine, Plasma 2.06(H) 0.70 - 1.20 mg/dL 10/13/2025 1:58 PM [facility] BUN/Creatinine Ratio 22 10/13/2025 1:58 PM [facility] Sodium, Plasma 135(L) 136 - 145 mmol/L 10/13/2025 1:58 PM [facility] Potassium, Plasma 4.1 3.6 - 4.9 mmol/L 10/13/2025 1:58 PM [facility] Chloride, Plasma 100 97 - 107 mmol/L 10/13/2025 1:58 PM [facility] CO2, Plasma 25 22 - 29 mmol/L 10/13/2025 1:58 PM [facility] Anion Gap 10 6 - 16 mmol/L 10/13/2025 1:58 PM [facility] Total Calcium, Plasma 8.8(L) 8.9 - 10.2 mg/dL 10/13/2025 1:58 PM [facility] Total Protein 6.4 6.3 - 7.9 g/dL 10/13/2025 1:58 PM [facility] Albumin, Plasma 3.0(L) 3.5 - 5.2 g/dL 10/13/2025 1:58 PM [facility] AST, Plasma 20 10 - 50 U/L 10/13/2025 1:58 PM [facility] ALT, Plasma 32 10 - 50 U/L 10/13/2025 1:58 PM [facility] Alkaline Phosphatase, Plasma 71 40 - 115 U/L 10/13/2025 1:58 PM [facility] Total Bilirubin, Plasma 0.6 0.2 - 1.1 mg/dL 10/13/2025 1:58 PM [facility] eGFRcr 33.8 mL/min/1.7 3m*2 10/13/2025 1:58 PM EST [facility] Comment:Reported eGFRcr in m L/min/1.73m2 is based the CKD-EPI 2020 equation that does not use a race coefficient. Blood Blood sample taken from central line / Unknown (Port) Long-term Catheter / Unknown 10/13/2025 12:23 PM EST 10/13/2025 1:27 PM EST us Jatinder Sims MD LAB BLOOD ORDERABLES Final Resul t [facility] [address] [place] [address] * (ABNORMAL) CBC and differential (10/13/2025 12:23 PM EST) WBC Count 11.69(H) 3.70 - 10.30 10*3/uL LAB HEMATOLOGY METHOD 10/13/2025 1:34 PM EST [facility] RBC Count 3.54(L) 4.60 - 6.10 10*6/uL LAB HEMATOLOGY METHOD 10/13/2025 1:34 PM EST [facility] HGB 10.2(L) 13.7 - 17.5 g/dL LAB HEMATOLOGY METHOD 10/13/2025 1:34 PM EST [facility] HCT 31.5(L) 40.0 - 51.0 % LAB HEMATOLOGY METHOD 10/13/2025 1:34 PM EST [facility] Platelet Count 297 155 - 369 10*3/uL LAB HEMATOLOGY METHOD 10/13/2025 1:34 PM EST [facility] MCV 89 79 - 98 fL LAB HEMATOLOGY METHOD 10/13/2025 1:34 PM EST [facility] MCH 28.8 26.0 - 32.0 pg LAB HEMATOLOGY METHOD 10/13/2025 1:34 PM EST [facility] MCHC 32.4 30.7 - 35.5 g/dL LAB HEMATOLOGY METHOD 10/13/2025 1:34 PM EST [facility] RDW 15.1(H) 11.5 - 14.5 % LAB HEMATOLOGY METHOD 10/13/2025 1:34 PM EST [facility] MPV 10.9 8.8 - 12.5 fL LAB HEMATOLOGY METHOD 10/13/2025 1:34 PM [facility] nRBC 0.0 <=0.0 per 100 WBCs LAB HEMATOLOGY METHOD 10/13/2025 1:34 PM [facility] Differential Type Automated LAB HEMATOLOGY METHOD 10/13/2025 1:34 PM [facility] Neutrophils % 89 % LAB HEMATOLOGY METHOD 10/13/2025 1:34 PM [facility] Lymphocytes % 5 % LAB HEMATOLOGY METHOD 10/13/2025 1:34 PM [facility] Monocytes % 5 % LAB HEMATOLOGY METHOD 10/13/2025 1:34 PM [facility] Eosinophils % 0 % LAB HEMATOLOGY METHOD 10/13/2025 1:34 PM [facility] Basophils % 0 % LAB HEMATOLOGY METHOD 10/13/2025 1:34 PM [facility] Immature Granulocytes % 1 % LAB HEMATOLOGY METHOD 10/13/2025 1:34 PM [facility] Neutrophils Absolute 10.38(H) 1.60 - 6.10 10*3/uL LAB HEMATOLOGY METHOD 10/13/2025 1:34 PM [facility] Lymphocytes Absolute 0.63(L) 1.20 - 3.90 10*3/uL LAB HEMATOLOGY METHOD 10/13/2025 1:34 PM [facility] Monocytes Absolute 0.54 0.30 - 0.90 10*3/uL LAB HEMATOLOGY METHOD 10/13/2025 1:34 PM [facility] Eosinophils Absolute 0.04 0.00 - 0.50 10*3/uL LAB HEMATOLOGY METHOD 10/13/2025 1:34 PM [facility] Basophils Absolute 0.01 0.00 - 0.10 10*3/uL LAB HEMATOLOGY METHOD 10/13/2025 1:34 PM [facility] Immature Granulocytes Absolute 0.09(H) 0.00 - 0.06 10*3/uL LAB HEMATOLOGY METHOD 10/13/2025 1:34 PM [facility] Blood Blood sample taken from central line / Unknown (Port) Long-term Catheter / Unknown 10/13/2025 12:23 PM EST 10/13/2025 1:24 PM EST [facility] - 10/13/2025 1:34 PM EST Therapeutic decision making should be based on absolute values, rather than percentages. us Jatinder Sims MD LAB BLOOD ORDERABLES Final Resul t [facility] [address] [address] documented in this encounter Visit Diagnoses Diagnosis YOLI (acute kidney injury)- Primary documented in this encounter Additional Health Concerns Active Problems Noted Date Diagnosed Date Appointments 10/10/2025 Med Adherence 10/10/2025 Infection Onset Date Last Indicated Resolved Time C. difficile 08/14/2025 08/26/2025 Assessment Noted Time PHQ-9 Depression Total Score: 0 08/18/20 11:58 AM EDT A fall risk assessment has been complete d for the patient 10/13/2025 1:47 PM EST A Body Mass Index follow-up plan has been documented for the patient 10/19/2025 2:33 PM EST documented as of this encounter Care Teams Web Content Developer Relationship Specialty Start Date End Date Darius Ken MD [address] [place] [address] PCP - General Internal Medicine 08/23/24 Yanely Rock DO [address] [phone] Surgeon Urology 09/22/25 Rosalinda Cox, RN VALUE-BASED TRANSFORMATION PROGRAM Computer Application Developer 10/04/25 documented as of this encounter
--- OUTSIDE RECORDS SUMMARY | 2025-10-13 12:00 | XMS_ITS | Encounter Summary ---
Author Organization Healthcare Address [address] [place] [address] Care Team Providers Care Brush Maker Name Role Phone Darius Ken MD Primary Care Provider [phone] Yanely Rock DO Unavailable [phone] Rosalinda Cox RN Unavailable Unavailable Encounter Details Date Type Department Care Team (Latest Contact Info) Description 10/13/2025 12:00 PM EST Clinical Support [facility] Multidisciplinary Oncology Clinic [address] [place] [address] YOLI (acute kidney injury) Social History Tobacco Use Types Packs/Day Years [...] any time in the [facility] were you homeless or living in a residential (including now)? No 10/10/2025 [facility] Utilities Answer Date Recorded In the [...] things Not at all 10/13/2025 9:27 AM Sandra Cox Feeling down, depressed, or hopeless Not at all 10/13/2025 9:27 AM Sandra Cox Patient Health Questionnaire -2 Score 0 10/13/2025 9:27 AM Sandra Cox * Question Answer Date of Assessment Author Thoughts that you would be b evan off or hurting yourself in some way Not at all 10/13/2025 9:27 AM EST Sandra Mosley documented as of this encounter Miscellaneous Notes * Clinician Note - Jeri Reddy, RN - 10/13/2025 12:00 PM EST Port already accessed. No date written on dressing. Patient reports his replaced Tegaderm yesterday as it was coming loose. Patient reports that he was discharged from hospital with port accessed. Last reported date of access 09/29/25. Discharged on 10/05/25. Port labs drawn. Port de-accessed.Instructed patient and to monitor for any signs and symptoms of infection. They verbalized understanding. Care team notified. documented in this encounter Plan of Treatment Upcoming Encounters Date Type Department Care Team (Latest Contact Info) Description 10/26/2025 2:45 PM EST Office Visit [facility] CC Head, Neck & Respiratory [address] [facility], 2nd [place] [address] Kim Machado MD [address] [facility] [address] [place] [address] 10/27/2025 11:00 AM EST Clinical Support [facility] [address], 2nd [place] [address] 11/17/2025 7:50 AM EST Clinical Support [facility] Multidisciplinary Oncology Clinic [address] [place] [address] 11/17/2025 8:00 AM EST Office Visit [facility] Multidisciplinary Oncology Clinic [address] [place] [address] Aristides Reina MD [address] [place] [address] 11/17/2025 2:00 PM EST Office Visit [facility] Nephrology, Bone & Mineral Metabolism [address] [facility], [address] [place] [phone] 11/21/2025 2:00 PM EST Appointment [facility] [address], 1st [place] [address] 12/01/2025 1:30 PM EST [facility] [address], [address] [place] [address] Yanely Rock, [address] [place] [address] 12/14/2025 10:00 AM EST Office Visit [facility] [address] [facility], [address] [place] [address] Juarez Recinos MD [address] [place] [address] 01/13/2026 12:00 PM EST Office Visit [facility] [address] [facility] [address] [place] [address] Eros Mejia MD [address] [place] [address] documented as of this encounter Goals Goal Patient Goal Type Associated Problems Recent Progress Patient-Stated? Author Patient will attend PCP appointment 10/12/2025 Care Plan Appointments On track( 4:26 PM EST) No Rosalinda Cox RN Patient will attend nephrology appointment 10/13/2025 Care Plan Appointments On track( 4:11 PM EST) No Rosalinda Cox RN Consistently take Medications as Prescribed Care Plan Med Adherence On track( 4:27 PM EST) No Rosalinda Cox RN documented as of this encounter Procedures Procedure Name Priority Date/Time Associated Diagnosis Comments CBC WITH AUTO DIFFERENTIAL Routine 10/13/2025 12:23 PM EST YOLI (acute kidney injury) COMPREHENSIVE METABOLIC PANEL, PLASMA Routine 10/13/2025 12:23 PM EST YOLI (acute kidney injury) documented in this encounter Results * (ABNORMAL) Comprehensive metabolic panel (10/13/2025 12:23 PM EST) Glucose, Plasma 99 74 - 99 mg/dL 10/13/2025 1:58 PM [facility] BUN, Plasma 45(H) 8 - 23 mg/dL 10/13/2025 1:58 PM EST [facility] Creatinine, Plasma 2.06(H) 0.70 - 1.20 mg/dL 10/13/2025 1:58 PM EST [facility] BUN/Creatinine Ratio 22 10/13/2025 1:58 PM [facility] Sodium, Plasma 135(L) 136 - 145 mmol/L 10/13/2025 1:58 PM [facility] Potassium, Plasma 4.1 3.6 - 4.9 mmol/L 10/13/2025 1:58 PM [facility] Chloride, Plasma 100 97 - 107 mmol/L 10/13/2025 1:58 PM [facility] CO2, Plasma 25 22 - 29 mmol/L 10/13/2025 1:58 PM [facility] Anion Gap 10 6 - 16 mmol/L 10/13/2025 1:58 PM [facility] Total Calcium, Plasma 8.8(L) 8.9 - 10.2 mg/dL 10/13/2025 1:58 PM [facility] Total Protein 6.4 6.3 - 7.9 g/dL 10/13/2025 1:58 PM [facility] Albumin, Plasma 3.0(L) 3.5 - 5.2 g/dL 10/13/2025 1:58 PM [facility] AST, Plasma 20 10 - 50 U/L 10/13/2025 1:58 PM [facility] ALT, Plasma 32 10 - 50 U/L 10/13/2025 1:58 PM [facility] Alkaline Phosphatase, Plasma 71 40 - 115 U/L 10/13/2025 1:58 PM [facility] Total Bilirubin, Plasma 0.6 0.2 - 1.1 mg/dL 10/13/2025 1:58 PM [facility] eGFRcr 33.8 mL/min/1.7 3m*2 10/13/2025 1:58 PM EST [facility] Comment:Reported eGFRcr in m L/min/1.73m2 is based the CKD-EPI 2020 equation that does not use a race coefficient. Blood Blood sample taken from central line / Unknown (Port) Long-term Catheter / Unknown 10/13/2025 12:23 PM EST 10/13/2025 1:27 PM EST us Jatinder Sims MD LAB BLOOD ORDERABLES Final Resul t [facility] [address] [place] [address] * (ABNORMAL) CBC and differential (10/13/2025 12:23 PM EST) WBC Count 11.69(H) 3.70 - 10.30 10*3/uL LAB HEMATOLOGY METHOD 10/13/2025 1:34 PM EST [facility] RBC Count 3.54(L) 4.60 - 6.10 10*6/uL LAB HEMATOLOGY METHOD 10/13/2025 1:34 PM EST [facility] HGB 10.2(L) 13.7 - 17.5 g/dL LAB HEMATOLOGY METHOD 10/13/2025 1:34 PM EST [facility] HCT 31.5(L) 40.0 - 51.0 % LAB HEMATOLOGY METHOD 10/13/2025 1:34 PM EST [facility] Platelet Count 297 155 - 369 10*3/uL LAB HEMATOLOGY METHOD 10/13/2025 1:34 PM EST [facility] MCV 89 79 - 98 fL LAB HEMATOLOGY METHOD 10/13/2025 1:34 PM EST [facility] MCH 28.8 26.0 - 32.0 pg LAB HEMATOLOGY METHOD 10/13/2025 1:34 PM EST [facility] MCHC 32.4 30.7 - 35.5 g/dL LAB HEMATOLOGY METHOD 10/13/2025 1:34 PM EST [facility] RDW 15.1(H) 11.5 - 14.5 % LAB HEMATOLOGY METHOD 10/13/2025 1:34 PM [facility] MPV 10.9 8.8 - 12.5 fL LAB HEMATOLOGY METHOD 10/13/2025 1:34 PM [facility] nRBC 0.0 <=0.0 per 100 WBCs LAB HEMATOLOGY METHOD 10/13/2025 1:34 PM [facility] Differential Type Automated LAB HEMATOLOGY METHOD 10/13/2025 1:34 PM [facility] Neutrophils % 89 % LAB HEMATOLOGY METHOD 10/13/2025 1:34 PM [facility] Lymphocytes % 5 % LAB HEMATOLOGY METHOD 10/13/2025 1:34 PM [facility] Monocytes % 5 % LAB HEMATOLOGY METHOD 10/13/2025 1:34 PM [facility] Eosinophils % 0 % LAB HEMATOLOGY METHOD 10/13/2025 1:34 PM [facility] Basophils % 0 % LAB HEMATOLOGY METHOD 10/13/2025 1:34 PM [facility] Immature Granulocytes % 1 % LAB HEMATOLOGY METHOD 10/13/2025 1:34 PM [facility] Neutrophils Absolute 10.38(H) 1.60 - 6.10 10*3/uL LAB HEMATOLOGY METHOD 10/13/2025 1:34 PM [facility] Lymphocytes Absolute 0.63(L) 1.20 - 3.90 10*3/uL LAB HEMATOLOGY METHOD 10/13/2025 1:34 PM [facility] Monocytes Absolute 0.54 0.30 - 0.90 10*3/uL LAB HEMATOLOGY METHOD 10/13/2025 1:34 PM [facility] Eosinophils Absolute 0.04 0.00 - 0.50 10*3/uL LAB HEMATOLOGY METHOD 10/13/2025 1:34 PM [facility] Basophils Absolute 0.01 0.00 - 0.10 10*3/uL LAB HEMATOLOGY METHOD 10/13/2025 1:34 PM [facility] Immature Granulocytes Absolute 0.09(H) 0.00 - 0.06 10*3/uL LAB HEMATOLOGY METHOD 10/13/2025 1:34 PM [facility] Blood Blood sample taken from central line / Unknown (Port) Long-term Catheter / Unknown 10/13/2025 12:23 PM EST 10/13/2025 1:24 PM EST Narrative [facility] - 10/13/2025 1:34 PM EST Therapeutic decision making should be based on absolute values, rather than percentages. us Jatinder Sims MD LAB BLOOD ORDERABLES Final Resul t [facility] [address] [place] [address] documented in this encounter Visit Diagnoses Diagnosis YOLI (acute kidney injury) documented in this encounter Additional Health Concerns [...] documented as of this encounter Care Teams Brush Maker Relationship Specialty Start Date End Date Darius Ken MD [address] [place] [address] PCP - General Internal Medicine 08/23/24 Yanely Rock DO [address] [place] [address] Surgeon Urology 09/22/25 Rosalinda Cox, RN VALUE-BASED TRANSFORMATION PROGRAM [place] Local Hazmat Driver 10/04/25 documented as of this encounter
--- OUTSIDE RECORDS SUMMARY | 2025-10-13 13:00 | XMS_ITS | Encounter Summary ---
Author Organization Healthcare Address [address] [place] [address] Care Team Providers Care Platform Attendant Name Role Phone Darius Ken MD Primary Care Provider [phone] Yanely Rock DO Unavailable [phone] Rosalinda Cox RN Unavailable Unavailable Reason for Referral * Consultation (Routine) - Authorized Specialty Diagnoses / Procedures Referred By Broderick olivares Referred To Contact Diagnoses YOLI (acute kidney injury) Jackie Sepulveda MD [address] [place] [phone] Phone: tel: fax: Referral ID Status Reason Start Date Expiration Date V isits Requested Visits Authorized [id number] Authorized 10/13/2025 04/14/2027 1 1 Reason for Visit * Reason Comments Consult Encounter Details Date Type Department Care Team ([facility] st Contact Info) Description 10/13/2025 1:00 PM EST Office Visit [facility] Nephrology, Bone & Mineral Metabolism [address], [address] [place] [address] Chacho Lucas DO [address] [place] [address] YOLI (acute kidney injury) (Primary Dx); ATN (acute tubular necrosis); AIN (acute interstitial nephritis) Social History Tobacco Use Types Packs/Day Years [...] any time in the past 12 m [facility], were you homeless or living in a jail (including now)? No 10/10/2025 [facility] Utilities Answer Date Recorded In [...] Sign Reading Time Taken Comments Blood Pressure 124/81 10/13/2025 1:48 PM EST Pulse 66 10/13/2025 1:40 PM EST Temperature 36.5 C (97.7 F) 10/13/2025 1:40 PM EST Respiratory Rate - - Oxygen Saturation 96% 10/13/2025 1:40 PM EST Inhaled Oxygen Concentration - - Weight 81.1 kg (178 lb 12.8 oz) 10/13/2025 1:40 PM EST Height 182.9 cm (6') 10/13/2025 1:40 PM EST Body Mass Index 24.25 10/13/2025 1:40 PM EST documented in this encounter Functional [...] difficult at all 10/13/2025 1:45 PM EST Vero Kan documented as of this encounter Miscellaneous Notes * Progress Notes - Chacho Lucas DO - 10/13/2025 1:00 PM EST Nephrology Follow up Note Patient: Justin Best Reason for visit: YOLI/AIN - Hospital discharge follow up HPI: Mr. 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 Follow up in clinic for YOLI with Cr peakduring hospitalization ~9. Currently on steroid taper. No acute complaints. Blood pressure well controlled. Denies LE Edema. S/p kidney biopsy 10/04 which revealed ATN and AIN (Final report pending EM) -8 glomeruli, (1/8, 13%) globally sclerosed . -Mild to moderate cortical tubular atrophy, focal epithelial simplification and isometric cytoplasmic vacuolization of the cortical tubular epithelial cells consistent with ATN. -Moderate interstitial lymphocytic inflammatory infiltrate with scattered eosinophils is seen, focally associated with mild lymphocytic tubulitis. -The trichrome stain highlights severe interstitial edema and fiber. The small intrarenal arteries display moderate to severe fibrointimal thickening. No arterioles are available for evaluation. No vasculitis, thromboemboli or thrombotic microangiopathy is identified in the examined vessels. Cancer Hx: Diagnosis (06/17/2025): GEJ Adenocarcinoma Treatment: FLOT-D (08/03/2025 - 2025) Ipi/Nivo (09/13/2025 - 09/29) Treatment related complications: Nausea, diarrhea, hyponatremia Neutropenic fever C. Diff Colitis Grade 4 ICI AIN (Creatinine >6x baseline) Per most recent oncology note, patient should not receive any additional neoadjuvant treatment. Plan to obtain repeat imaging and send patient to Dr. Marcano to be evaluated for esophagectomy. History of diabetes: No History of taking chronic NSAID's: No. Family history: Kidney disease in parents or siblings: denies ROS: ROS was obtained in 14 points [...] on file Food Insecurity: No Food Insecurity (10/10/2025) Hunger Vital Sign Worried About Running Out of Food in the Last Year: Never true Ran Out of Food in the Last Year: Never true Transportation Needs: No Transportation Needs (10/10/2025) PRAPARE - Transportation Lack of Transportation (Medical): No Lack of Transportation (Non-Medical): No Physical Activity: Not on file Stress: Not on file Social Connections: Unknown (08/19/2023) Received from [facility] Family and Community Support Help with Day-to-Day Activities: Not on file Lonely or Isolated: Not on file Intimate Partner Violence: Not At Risk (10/10/2025) Humiliation, Afraid, Rape, and Kick questionnaire Fear of Current or Ex-Partner: No Emotionally Abused: No Physically Abused: No Sexually Abused: No Housing Stability: Low Risk (10/10/2025) Housing Stability Vital Sign Unable to Pay for Housing in the Last Year: No Number of Times Moved in the Last Year: 0 Homeless in the Last Year: No Allergies[5] Medications: Home Medications: Current Outpatient Medications Medication Instructions Aluminum & Magnesium Hydroxide (gi cocktail) 30 mL, Oral, 4 times daily PRN atovaquone (MEPRON) 1,500 mg, Oral, Daily diphenhydrAMINE (BENADRYL) 50 mg, Oral, Nightly PRN diphenhydrAMINE (BENADRYL) 50 mg, Oral, Nightly PRN emollient (Thera-Derm, Eucern) lotion moisturizing lotion To be applied in affected areas. famotidine (PEPCID) 20 mg, Daily finasteride (PROSCAR) 5 mg, Oral, Daily, Do not crush, chew, or split. Pt asking about refill MELATONIN PO 1 tablet, Nightly PRN [Paused] pantoprazole (PROTONIX) 40 mg, Oral, Daily, Do not crush, chew, or split. Pt asking about refill predniSONE (Deltasone) 10 MG tablet Take 8 tablets by mouth daily for 1 day, THEN 6 tablets daily for 7 days, THEN 4 tablets daily for 7 days, THEN 2 tablets daily for 7 days, THEN 1 tablet daily for7 days, THEN 0.5 tablets daily for 7 days. tamsulosin (FLOMAX) 0.4 mg, Oral, Nightly triamcinolone (Kenalog) 0.5 % ointment Physical Exam: Visit Vitals BP 124/81 (BP Location: Right arm, Patient Position: Sitting, BP Cuff Size: Large adult) Pulse 66 Temp 36.5 ??C (97.7 ??F) (Oral) Ht 1.829 m (6') Wt 81.1 kg (178 lb 12.8 oz) SpO2 96% BMI 24.25 kg/m?? Smoking Status Never BSA 2.03 m?? Gen: Awake, alert, NAD HEENT: MMM, NC/AT; neck supple Pulm: Normal respiratory effort Abd: Soft, non-distended Extremities: No LE edema, no digital clubbing Skin: No rashes noted on observed skin, warm Neuro: Awake and alert. Non focal, normal mood Laboratory: Creatinine, Plasma (mg/dL) Date/Time Value 10/05/2025 0512 5.25 (H) 10/04/2025 0549 6.33 (H) 10/03/2025 0618 7.49 (H) eGFRcr (mL/min/1.73m*2) Date/Time Value 10/05/2025 0512 11.0 BUN, Plasma (mg/dL) Date/Time Value 10/05/2025 0512 61 (H) 10/04/2025 0549 69 (H) 10/03/2025 0618 70 (H) Albumin, Plasma (g/dL) Date/Time Value 10/04/2025 0549 2.4 (L) 10/03/2025 0618 2.3 (L) 10/02/2025 0611 2.4 (L) Potassium, Plasma (mmol/L) Date/Time Value 10/05/2025 0512 4.0 10/04/2025 0549 4.1 10/03/2025 0618 4.5 CO2, Plasma (mmol/L) Date/Time Value 10/05/2025 0512 20 (L) 10/04/2025 0549 19 (L) 10/03/2025 0618 18 (L) Sodium, Plasma (mmol/L) Date/Time Value 10/05/2025 0512 137 10/04/2025 0549 137 Total Calcium, Plasma (mg/dL) Date/Time Value 10/05/2025 0512 8.2 (L) 10/04/2025 0549 8.3 (L) 10/03/2025 0618 8.1 (L) Phosphorus, Plasma (mg/dL) Date/Time Value 10/04/2025 0549 5.1 (H) 10/03/2025 0618 5.5 (H) 10/02/2025 0611 5.7 (H) Magnesium, Plasma (mg/dL) Date/Time Value 10/04/2025 0549 1.9 10/01/2025 0334 2.4 09/30/2025 0417 1.5 (L) Uric Acid, Plasma (mg/dL) Date/Time Value 08/23/2024 1552 5.9 WBC Count (10*3/uL) Date/Time Value 10/04/2025 2107 5.58 10/04/2025 1552 7.31 10/04/2025 0549 8.94 HGB (g/dL) Date/Time Value 10/04/2025 2107 8.9 (L) 10/04/2025 1552 8.9 (L) 10/04/2025 0549 8.3 (L) Platelet Count (10*3/uL) Date/Time Value 10/04/2025 2107 337 10/04/2025 1552 379 (H) 10/04/2025 0549 335 Vitamin D 25 Hydroxy (ng/mL) Date/Time Value 08/23/2024 1552 37.5 PTH Intact Total (pg/mL) Date/Time Value 08/23/2024 1552 45 RBC, Urine (/HPF) Date/Time Value 09/29/2025 1346 2 09/07/2025 1735 >50 (A) 2025 1038 >50 (A) WBC, Urine (/HPF) Date/Time Value 09/29/2025 1346 >50 (A) 09/07/2025 6560 Unable to estimate due to obscuring RBC's (UNERBC) 2025 1038 0 - 5 Transferrin Saturation (%) Date/Time Value 09/29/2025 1232 14 IMPRESSION:: Mr. Best is a 70-year-old man with a history of esophageal/gastroesophageal junction adenocarcinoma (previously treated with FLOT-D from 08/03/25-08/31/25, previously on ipilimumab/nivolumab since 09/13/25) and prostatomegaly with chronic urinary retention requiring intermittent indwelling urinary ca theterization under Urology care. Follow up in clinic for YOLI/AIN 2/2 ICI. # YOLI on CKD stage 2, improving -Etiology: AIN/checkpoint inhibitor toxicity with ATN - Receive 2 doses of ipilimumab/nivolumab Baseline serum creatinine: 0.9-.1.1 -Creatinine at the time of consult: 9.91 -S/p biopsy 10/04: revealed ATN and AIN: Mild to moderate cortical tubular atrophy, focal epithelial simplification and isometric cytoplasmic vacuolization of the cortical tubular epithelial cells consistent with ATN. Moderate interstitial lymphocytic inflammatory infiltrate with scattered eosinophils is seen, focally associated with mild lymphocytic tubulitis. -Imaging: Mild echogenic kidneys with decompressed bladder -started on empiric steroids inpatient with improvement in Cr -Cr in office today 2.06 # Adenocarcinoma of the esophagus/gastroesophageal junction - Was previously treated with leucovorin, oxaliplatin, Taxotere, fluorouracil. - nivolumab and ipilimumab. 09/13-09/29/25 -Per most recent oncology note, patient should not receive any additional neoadjuvant treatment. Plan to obtain repeat imaging and send patient to Dr. Marcano to be evaluated for esophagectomy. # Anemia of the chronic disease #BPH -continue flomax, proscar # History of heart failure with preserved ejection fraction # History of recent C diff colitis treated with fidaxomicin and oral vancomycin Plan: -Completed one week of prednisone 80 mg daily 10/07 (week 1) -Currently on Prednisone 60mg in week 2, 40mg in week 3, 20 mg in week 4, 10mg in week 5 and 5mg inweek 6. -blood pressure well controlled -continue atovaquone and Pepcid while on high dose steroid -counseled to avoid dehydration, NSAIDs -RTC in 6 weeks with repeat labs Orders Placed This Encounter Procedures Protein, Random, Urine with Creatinine Albumin-creatinine ratio, urine, random Urinalysis with reflex microscopic (Culture NOT Included) Renal Function Panel, Plasma CBC W/O Differential Follow Up Nephrology [1] Past Medical History: Diagnosis Date Blood urine 2023 Cancer ([facility]/HCC) 2024 current diagnosis Esophageal cancer june 2025 Hypertension 2000 Kidney stone Skin cancer 2004 Stomach cancer ([facility]/HCC) june 2025 Urinary retention [2] Patient Active Problem List Diagnosis Stage 3a chronic kidney disease (CMS/HCC) Nephrolithiasis Essential hypertension Benign prostatic hyperplasia without lower urinary tract symptoms Adenocarcinoma of gastroesophageal junction Epigastric pain Thyroid mass Sepsis (CMS/HCC) Neutropenic fever ([facility]/HCC) Dysphagia Upper respiratory disease Obstructive nephropathy Hypomagnesemia Hypophosphatemia Protein-calorie malnutrition, moderate (CMS/HCC) Anemia, unspecified Asymptomatic bacteriuria Chronic heart failure with preserved ejection fraction (HFpEF) ATN (acute tubular necrosis) Azotemia CKD (chronic kidney disease) stage 2, GFR 60-89 ml/min Hyperphosphatemia Metabolic acidosis YOLI (acute kidney injury) [3] Past Surgical History: Procedure Laterality Date APPENDECTOMY 2020 BACK SURGERY 2001 CHOLECYSTECTOMY 1984 COLONOSCOPY 2023 GALLBLADDER SURGERY 1998 ORTHOPEDIC SURGERY 2000 back surgery RENAL BIOPSY 10-03-25 [4] Family History Problem Relation Name Age of Onset Cancer Father Heart failure Mother 80 - 99 [5] Allergies Allergen Reactions Oxycodone Hallucinations Penicillins Unknown - Patient states they do not know rxn details Childhood allergy, thinks it was maybe a rash, but isn't sure Cosigned by Jackie Sepulveda MD at 10/19/2025 2:33 PM EST Associated attestation - Jackie Sepulveda MD - 10/19/2025 2:33 PM EST I saw and evaluated the patient with the resident/fellow. I discussed the case with the resident/fellow and agree with the findings and plan as documented. documented in this encounter Plan of Treatment Upcoming Encounters Date Type Department Care Team (Latest Contact Info) Description 10/26/2025 2:45 PM EST Office Visit [facility] [address], [address]nd [place] [address] Kim Machado MD [address] [place] [address] 10/27/2025 11:00 AM EST [facility] Support [facility] [address], [address] [place] [address] 11/17/2025 7:50 AM EST Clinical Support [facility] [address] [place] [address] 11/17/2025 8:00 AM EST Office Visit [facility] [address] [place] [address] Aristides Reina MD [address] [place] [address] 11/17/2025 2:00 PM EST Office Visit [facility] Nephrology, Bone & Mineral Metabolism [address], [address] [place] [address] 11/21/2025 2:00 PM EST Appointment [facility] Radiology [address] [place] [address] 12/01/2025 1:30 PM EST Office Visit [facility] Urology [address], [address] [place] [address] Yanely Rock, [address] [place] [address] 12/14/2025 10:00 AM EST Office Visit [facility] [address], [address] [place] [address] Juarez Recinos MD [address] [place] [address] 01/13/2026 12:00 PM EST [facility] [address] [place] [place] [address] Eros Mejia MD [address] [place] [address] Scheduled Orders Name Type Priority Associated Diagnoses Orde r Schedule Protein, Random, Urine with Creatinine Lab Routine YOLI (acute kidney injury) Expected: 11/13/2025 (Approximate), Expires: 04/13/2027 Albumin-creatinine ratio, urine, random Lab Routine YOLI (acute kidney injury) Expected: 11/13/2025 (Approximate), Expires: 04/13/2027 Urinalysis with reflex microscopic (Culture NOT Included) Lab Routine YOLI (acute kidney injury) Expected: 11/13/2025 (Approximate), Expires: 04/13/2027 Renal Function Panel, Plasma Lab Routine YOLI (acute kidney injury) Expected: 11/13/2025 (Approximate), Expires: 04/13/2027 CBC W/O Differential Lab Routine YOLI (acute kidney injury) Expected: 11/13/2025 (Approximate), Expires: 04/13/2027 Scheduled Referrals Name Type Priority Associated Diagnoses Order Schedule Follow Up Nephrology Outpatient Referral Routine YOLI (acute kidney injury) Expected: 11/17/2025 (Approximate), Expires: 11/13/2026 documented as of this encounter Goals Goal [...] Cox RN documented as of this encounter Visit Diagnoses Diagnosis YOLI (acute kidney injury)- Primary ATN (acute tubular necrosis) Acute kidney failure with lesion of tubular necrosis AIN (acute interstitial nephritis) Other acute glomerulonephritis with other specified pathological lesion in kidney documented in this encounter Additional Health Concerns [...] documented as of this encounter Care Teams Platform Attendant Relationship Specialty Start Date End Date Darius Ken MD [address] [facility] [address] [place] [address] PCP - General Internal Medicine 08/23/24 Yanely Rock DO [address] [place] [address] Surgeon Urology 09/22/25 Rosalinda Cox, RN VALUE-BASED TRANSFORMATION PROGRAM [place], [place] Plumber Assistant 10/04/25 documented as of this encounter
--- NOTE | 2025-10-24 08:37 | CA_ITS ---
APPROVED REPORT EXAM: Comprehensive 2D, Doppler, and color-flow Echocardiogram Bulk Plant Supervisor: Emani Adrian CRT Ht: 6 ft 1 in Wt: 202lbs BSA: 2.16 BP: 112/67 mmHg Indications: Hyperlipidemia, Hypertension/HDD, orthostastic hypotension, esophageal adenocarcinoma 2D Dimensions LA Volume 21.90 mL LA Volume Index 9.90 mL/m2 (M/F) 16-34 M-Mode Dimensions RVDd 3.42 cm (0.9-2.6) LA Diam 3.23 cm (1.9-4.0) LVDd 3.85 cm (3.5-5.7) LVDs 2.74 cm (3.5-5.7) IVSd 2.16 cm (0.6-1.1) PWd 0.89 cm (0.6-1.1) EF (Teich) 56.20% FS 28.80% EDV (Teich) 63.90 mL TAPSE 1.61 (<1.7) ESV (Teich) 28.00 mL LV Diastology E Decel Time 193 (160-240 msec) E/A Ratio 0.43 MED A' 10.70 cm/s LAT A' 18.50 cm/s Aortic Valve AI PHT 415.00 ms AO Peak GR. 7.60 mmHg Mitral Valve MV E Max Peter. 33.0 (40-130 cm/s) MV A Velocity 75.0 (40-130 cm/s) E/A Ratio 0.43 MV PHT 57.0 ms Pulmonary Valve PV Peak Velocity 144.0 (50-150 cm/s) Tricuspid Valve TR P. Velocity 326.00 cm/s RAP Estimate 10.00 mmHg RVSP 52.40 mmHg Left Ventricle The left ventricle is normal size. Left ventricular systolic function is normal. The left ventricular ejection fraction is within the normal range. There is marked increase in left ventricular wall thickness. IVSd 1.4 cm. There is normal LV segmental wall motion. The left ventricular diastolic function is normal. LVEF is 55% Right Ventricle The right ventricle is mildly dilated. The right ventricular systolic function is normal. Atria The left atrium size is normal. The right atrium size is normal. There is no color Doppler evidence of interatrial shunt. Aortic Valve The aortic valve is mildly thickened. There is no hemodynamically significant aortic valvular stenosis. Mild aortic regurgitation is present. Mitral Valve The mitral valve is normal in structure. No evidence of mitral valve stenosis. Trace mitral regurgitation is present. Tricuspid Valve The tricuspid valve leaflets are thin and pliable. Mild tricuspid regurgitation. RVSP is 35-40 mmHg. Pulmonic Valve The pulmonary valve is grossly normal in structure. Trace pulmonic valve regurgitation is present. Great Vessels The aortic root is normal in size. IVC is normal in size and collapses >50% with inspiration. Pericardium There is no pericardial effusion. Other Information Study Quality: Fair Conclusion Normal biventricular systolic function. Marked increase in LV wall thickness (IVSd 1.4 cm). Mild RV dilation. Mild AI, mild TR. In the setting of marked increase in LV wall thickness, further evaluation is sugested with cardiac MRI (HCM protocol). Electronically signed by : Jennifer Correa MD 10/30/2025 15:07:33
--- OUTSIDE RECORDS SUMMARY | 2025-10-24 08:45 | XMS_ITS | Encounter Summary ---
Author Organization Healthcare Address [address] [place] [id number] Care Team Providers Care Milk Delivery Driver Name Role Phone Darius Ken MD Primary Care Provider [phone] Encounter Details Date Type Department Care Team (Latest Contact Info) Description 08/26/2025 Travel Social History Tobacco Use Types Packs/Day [...] any time in the past 12 m [facility], were you homeless or living in a snf (including now)? No 08/15/2025 [facility] [...] Date of Assessment Author No Risk Indicated 08/26/2025 7:12 PM EDT Thanh Villatoro RN * Question Answer Date of Assessment Author 1. Wish to be (Past 1 Month) No 025 7:12 PM EDT Aristides Villatoro RN 2. Non-Specific Active Suici pearl Thoughts (Past 1 Month) No 08/26/2025 7:12 PM EDT Aristides Villatoro, RN 6. Suicidal Behavior (Lifetime) No 7:12 PM EDT Aristides Villatoro, RN documented as of this encounter Mental Status * Question Answer Entry Date Author Scale Used John 08/26/2025 9:09 PM EDT Aristides Villatoro, RN documented in this encounter Plan of Treatment Upcoming Encounters Date Type Department Care Team (Latest Contact Info) Description 10/26/2025 2:45 PM EST Office Visit [facility] [address] [facility], [address]nd [place] [address] Kim Machado MD [address] [place] [address] 10/27/2025 11:00 AM EST Clinical Support [facility] Urology [address], [address] [place] [address] 11/17/2025 7:50 AM EST Clinical Support [facility] [address] [place] [address] 11/17/2025 8:00 AM EST Office Visit [facility] [address] [place] [address] Aristides Reina MD [address] [place] [address] 11/17/2025 2:00 PM EST Office Visit [facility] Nephrology, Bone & Mineral Metabolism [address] [facility], [address] [place] [address] 11/21/2025 2:00 PM EST Appointment [facility] [address], [address] [place] [address] 12/01/2025 1:30 PM EST Office Visit [facility] Urology [address], [address] [place] [address] Yanely Rock, [address] [place] [address] 12/14/2025 10:00 AM EST Office Visit [facility] [address], [address] [place] [address] Juarez Recinos MD [address] [place] [address] 01/13/2026 12:00 PM EST Office Visit [facility] [address] [place] [address] Eros Mejia MD [address] [place] [address] documented as of this encounter Visit Diagnoses Not on filedocumented in this encounter Additional Health Concerns Infection Onset Date Last Indicated Resolved Time C. difficile 08/14/2025 08/26/2025 Gastrointestinal Rule-Out 08/26/2025 08/26/2025 10:36 PM EDT Assessment Noted Time PHQ-9 Depression Total Score: 0 08/18/20 25 11:58 AM EDT A fall risk assessment has been complete d for the patient 08/20/2025 3:25 PM EDT A Body Mass Index follow-up plan has been documented for the patient 09/12/2025 4:57 PM EST documented as of this encounter Care Teams Milk Delivery Driver Relationship Specialty Start Date End Date Darius Ken MD [address] [place] [address] PCP - General Internal Medicine 08/23/24 documented as of this encounter
--- OUTSIDE RECORDS SUMMARY | 2025-10-24 08:46 | XMS_ITS | Encounter Summary ---
Author Organization Healthcare Address [address] [place] [address] Care Team Providers Care Production Line Manager Name Role Phone Darius Ken MD Primary Care Provider [phone] Reason for Visit * Reason Onset Date Comments Prior-authorization/insurance Verification 09/12 Encounter Details Date Type Department Care Team (Late st Contact Info) Description 09/12/2025 Telephone [facility] Medicine Virtual Dept. [address] [place] [address] Joyce Gunderson MD [address] [place] [phone] Prior-authorization/ins urance Verification Social History Tobacco Use Types Packs/Day Years [...] money to buy more. Never true 08/29/20 25 Within the past 12 months, t [...] any time in the past 12 m [facility], were you homeless or living in a intermediate (including now)? No 08/29/2025 [facility] Utilities Answer Date Recorded In the [...] documented as of this encounter Functional Status documented as of this encounter Mental Status * Question Answer Entry Date Author Precautions Fall risk 09/12/2025 8:00 AM EST Nancy Hale RN documented in this encounter Plan of Treatment Upcoming Encounters Date Type Department Care Team (Latest Contact Info) Description 10/26/2025 2:45 PM EST Office Visit [facility] Res[facility] 800 [facility], 2nd [place] [address] Kim Machado MD [address] [place] [address] 10/27/2025 11:00 AM EST [facility] [address], 2nd [place] [address] 11/17/2025 7:50 AM EST Clinical Support [facility] Multidisciplinary Oncology Clinic [address] [place] [address] 11/17/2025 8:00 AM EST Office Visit [facility] Multidisciplinary Oncology Clinic [address] [place] [address] Aristides Reina MD 800 [place] [address] 11/17/2025 2:00 PM EST Office Visit [facility] Nephrology, Bone & Mineral Metabolism [address] [facility], [address] [place] [address] 11/21/2025 2:00 PM EST Appointment [facility] S Radiology [address], 1st [place] [address] 12/01/2025 1:30 PM EST Office Visit [facility] Urology [address], 2nd [place] [address] Yanely Rock DO [address] [place] [address] 12/14/2025 10:00 AM EST Office Visit [facility] [place] [address] [facility], [address] [place] [address] Juarez Recinos MD [address] [place] [address] 01/13/2026 12:00 PM EST Office Visit [facility] [address] [place] [address] Eros Mejia MD [address] [place] [address] documented as of this encounter Visit Diagnoses [...] documented as of this encounter Care Teams Production Line Manager Relationship Specialty Start Date End Date Darius Ken MD [address] [place] [address] PCP - General Internal Medicine 08/23/24 documented as of this encounter
--- OUTSIDE RECORDS SUMMARY | 2025-10-24 08:48 | XMS_ITS | Encounter Summary ---
Author Organization Healthcare Address [address] [place] [id number] Care Team Providers Care Fourdrinier Operator Name Role Phone Darius Ken MD Primary Care Provider [phone] Encounter Details Date Type Department Care Team (Latest Contact Info) Description 08/28/2025 Travel Social History Tobacco Use Types Packs/Day [...] any time in the past 12 m [facility], were you homeless or living in a senior care (including now)? No 08/29/2025 [facility] Utilities Answer Date Recorded In the past [...] Question Answer Date of Assessment Author Precautions Environmental surveillance 08/28/2025 8:0 0 PM EDT Oksana Santos RN * Calculated C-SSRS Risk Score (Lifetime/Recent) Answer Date of Assessment Author No Risk Indicated 08/28/2025 8:06 AM EDT Earnestine Gomez RN * Question Answer Date of Assessment Author 1. Wish to be (Past 1 Month) No 025 8:06 AM EDT Earnestine Gomez, RN 2. Non-Specific Active Suici pearl Thoughts (Past 1 Month) No 08/28/2025 8:06 AM EDT Quyen Gomez RN 6. Suicidal Behavior (Lifetime) No 8:06 AM EDT Earnestine Gomez, RN documented as of this encounter Mental Status * Question Answer Entry Date Author Precautions Environmental surveillance 08/28/2025 8:0 0 PM EDT Oksana Santos RN documented in this encounter Plan of Treatment Upcoming Encounters Date Type Department Care Team (Latest Contact Info) Description 10/26/2025 2:45 PM EST Office Visit [facility] Head[facility] Neck & Respiratory 800 [facility], 2nd [place] [address] Kim Machado MD [address] [place] [address] 10/27/2025 11:00 AM EST Clinical Support [facility] Urology [address], 2nd [place] [address] 11/17/2025 7:50 AM EST Clinical Support [facility] 800 [place] [address] 11/17/2025 8:00 AM EST Office Visit [facility] 800 [place] [address] Aristides Reina MD 800 [place], [place] [phone] 11/17/2025 2:00 PM EST Office Visit [facility] Nephrology, Bone & Mineral Metabolism [address] [facility], [address] [place] [address] 11/21/2025 2:00 PM EST Appointment [facility] S Radiology [address], 1st [place] [address] 12/01/2025 1:30 PM EST Office Visit [facility] Urology [address], 2nd [place] [address] Yanely Rock, [address] [place] [address] 12/14/2025 10:00 AM EST Office Visit [facility] [place] [address] [facility], [address] [place] [address] Juarez Recinos MD 800 [place] [address] 01/13/2026 12:00 PM EST Office Visit [facility] [address] [place] [address] Eros Mejia MD [address] [place] [address] documented as of this encounter Visit [...] documented as of this encounter Care Teams Fourdrinier Operator Relationship Specialty Start Date End Date Darius Ken MD [address] [place] [address] PCP - General Internal Medicine 08/23/24 documented as of this encounter
--- OUTSIDE RECORDS SUMMARY | 2025-10-24 08:48 | XMS_ITS | Encounter Summary ---
Author Organization Healthcare Address [address] [place] [id number] Care Team Providers Care Box Chipper Name Role Phone Darius Ken MD Primary Care Provider [phone] Encounter Details Date Type Department Care Team (Latest Contact Info) Description 09/10/2025 Travel Social History Tobacco Use Types Packs/Day [...] any time in the past 12 m [facility], were you homeless or living in a group home (including now)? No 08/29/2025 [facility] Utilities Answer Date Recorded In the [...] * Question Answer Date of Assessment Author Arturo Environmental surveillance 09/10/2025 8:0 0 PM EDT Ana Cristina Yo RN * Calculated C-SSRS Risk Score (Lifetime/Recent) Answer Date of Assessment Author No Risk Indicated 09/10/2025 8:00 PM EDT Ana Cristina Breger RN * Question Answer Date of Assessment Author 1. Wish to be (Past 1 Month) No 025 8:00 PM SHAHLAT Ana Cristina Yo, YAHAIRA 2. Non-Specific Active Suici pearl Thoughts (Past 1 Month) No 09/10/2025 8:00 PM EDT Vaughn Yo RN 6. Suicidal Behavior (Lifetime) No 8:00 PM SHAHLAT Ana Cristina Yo, YAHAIRA documented as of this encounter Mental Status * Question Answer Entry Date Author Arturo Environmental surveillance 09/10/2025 8:0 0 PM EDT Ana Cristina Yo RN documented in this encounter Plan of Treatment Upcoming Encounters Date Type Department Care Team (Latest Contact Info) Description 10/26/2025 2:45 PM EST Office Visit [facility] Head[facility] Neck & Respiratory 800 [facility], 2nd [place] [address] Kim Machado MD [address] [place] [address] 10/27/2025 11:00 AM EST Clinical Support [facility] Urology [address], 2nd [place] [address] 11/17/2025 7:50 AM EST Clinical Support [facility] 800 [place] [address] 11/17/2025 8:00 AM EST Office Visit [facility] 800 [place] [address] Aristides Reina MD 800 [place], [place] [id number] 11/17/2025 2:00 PM EST Office Visit [facility] Nephrology, Bone & Mineral Metabolism [address] [facility], [address] [place] [address] 11/21/2025 2:00 PM EST Appointment [facility] S Radiology [address], 1st [place] [address] 12/01/2025 1:30 PM EST Office Visit [facility] Urology [address], 2nd [place] [address] Yanely Rock DO [address] [place] [address] 12/14/2025 10:00 AM EST Office Visit [facility] [place] [address] [facility], [address] [place] [address] Juarez Recinos MD 800 [place], [place] [phone] 01/13/2026 12:00 PM EST Office Visit [facility] [address] [place] [address] Eros Mejia MD [address] [place] [address] documented as of this encounter Visit [...] documented as of this encounter Care Teams Box Chipper Relationship Specialty Start Date End Date Darius Ken MD [address] [place] [address] PCP - General Internal Medicine 08/23/24 documented as of this encounter
--- OUTSIDE RECORDS SUMMARY | 2025-10-24 08:48 | XMS_ITS | Encounter Summary ---
Author Organization Healthcare Address [address] [place] [id number] Care Team Providers Care Promos Executive Producer Name Role Phone Darius Ken MD Primary Care Provider [phone] Encounter Details Date Type Department Care Team (Latest Contact Info) Description 09/01/2025 Travel Social History Tobacco Use Types Packs/Day [...] were you homeless or living in a long-term (including now)? No 08/29/2025 [facility] Utilities Answer Date Recorded In the past [...] Date of Assessment Author Arturo Environmental surveillance 09/01/2025 8:0 0 PM EDT Rebeca Baum RN * Calculated C-SSRS Risk Score (Lifetime/Recent) Answer Date of Assessment Author No Risk Indicated 09/01/2025 8:00 PM EDT Rebeca Baum RN * Question Answer Date of Assessment Author 1. Wish to be (Past 1 Month) No 025 8:00 PM EDT Rebeca Baum RN 2. Non-Specific Active Suici pearl Thoughts (Past 1 Month) No 09/01/2025 8:00 PM EDT Mima Baum RN 6. Suicidal Behavior (Lifetime) No 8:00 PM SHAHLAT Rebeca Baum RN documented as of this encounter Mental Status * Question Answer Entry Date Author Precautions Environmental surveillance 09/01/2025 8:0 0 PM EDT Rebeca Baum, RN documented in this encounter Plan of Treatment Upcoming Encounters Date Type Department Care Team (Latest Contact Info) Description 10/26/2025 2:45 PM EST Office Visit [facility] Head[facility] Neck & Respiratory 800 [facility], 2nd [place] [address] Kim Machado MD [address] [place] [address] 10/27/2025 11:00 AM EST Clinical Support [facility] Urology [address], 2nd [place] [address] 11/17/2025 7:50 AM EST Clinical Support [facility] 800 [place] [address] 11/17/2025 8:00 AM EST Office Visit [facility] 800 [place] [address] Aristides Reina MD 800 [place], [place] [phone] 11/17/2025 2:00 PM EST Office Visit [facility] Nephrology, Bone & Mineral Metabolism [address] [facility], [address] [place] [address] 11/21/2025 2:00 PM EST Appointment [facility] S Radiology [address], [address]st [place] [address] 12/01/2025 1:30 PM EST Office Visit [facility] Urology [address], 2nd [place] [address] Yanely Rock, [address] [place] [address] 12/14/2025 10:00 AM EST Office Visit [facility] [place] [address] [facility], [address] [place] [address] Juarez Recinos MD 800 [place], [place] [address] 01/13/2026 12:00 PM EST Office Visit [facility] [address] [place] [address] Eros Mejia MD [address] [place] [address] documented as of this encounter Visit [...] documented as of this encounter Care Teams Promos Executive Producer Relationship Specialty Start Date End Date Darius Ken MD [address] [place] [address] PCP - General Internal Medicine 08/23/24 documented as of this encounter
--- OUTSIDE RECORDS SUMMARY | 2025-10-24 08:48 | XMS_ITS | Encounter Summary ---
Author Organization Healthcare Address [address] [place] [id number] Care Team Providers Care Tag Writer Name Role Phone Darius Ken MD Primary Care Provider [phone] Encounter Details Date Type Department Care Team (Latest Contact Info) Description 08/30/2025 Travel Social History Tobacco Use Types Packs/Day [...] any time in the past 12 m [facility], were you homeless or living in a senior living (including now)? No 08/29/[address] [facility] Utilities Answer Date Recorded In [...] Answer Entry Date Author Precautions Environmental surveillance 08/30/2025 8:0 0 PM EDT Oksana Santos, RN documented in this encounter Plan of Treatment Upcoming Encounters Date Type Department Care Team (Latest Contact Info) Description 10/26/2025 2:45 PM EST Office Visit [facility] Head[facility]ck [facility] Respiratory [address] , 2nd [place] [address] Kim Machado MD [address] [place] [address] 10/27/2025 11:00 AM EST Clinical Support [place] [facility] [address], 2nd [place] [address] 11/17/2025 7:50 AM EST Clinical Support [facility]cology [facility] 800 [place] [address] 11/17/2025 8:00 AM EST Office Visit [facility] Multidisciplinary Oncology Clinic [address] [place] [address] Aristides Reina MD 800 [place] [address] 11/17/2025 2:00 PM EST Office Visit [facility] Nephrology, Bone & Mineral Metabolism [address] [facility], [address] [place] [address] 11/21/2025 2:00 PM EST Appointment [facility] Radiology [address], 1st [place] [address] 12/01/2025 1:30 PM EST Office Visit [facility] [address], 2nd [place] [address] Yanely Rock, [address] [place] [address] 12/14/2025 10:00 AM EST Office Visit [facility] [place] [address] [facility], [address] [place] [address] Juarez Recinos MD 800 [place] [address] 01/13/2026 12:00 PM EST Office Visit [facility] [address] [place] [address] Eros Mejia MD [address] [place] [address] documented as of this encounter [...] documented as of this encounter Care Teams Tag Writer Relationship Specialty Start Date End Date Darius Ken MD [address] [place] [address] PCP - General Internal Medicine 08/23/24 documented as of this encounter
--- OUTSIDE RECORDS SUMMARY | 2025-10-24 08:48 | XMS_ITS | Encounter Summary ---
Author Organization Healthcare Address [address] [place] [address] Care Team Providers Care Corrugated Box Machine Operator Name Role Phone Darius Ken MD Primary Care Provider [phone] Encounter Details Date Type Department Care Team (Late st Contact Info) Description 08/26/2025 Orders Only External Location 800 [place] [phone] Provider, External Social History Tobacco Use Types [...] any time in the past 12 m [facility], were you homeless or living in a snf (including now)? No 08/29/[address] [facility] Utilities Answer Date Recorded In the [...] Date of Assessment Author Precautions Environmental surveillance 08/29/2025 8:0 0 PM EDT Oksana Santos RN * Calculated C-SSRS Risk Score (Lifetime/Recent) Answer Date of Assessment Author No Risk Indicated 08/29/2025 9:34 AM EDT Earnestine Gomez RN * Question Answer Date of Assessment Author 1. Wish to be (Past 1 Month) No 025 9:34 AM EDT Earnestine Gomez RN 2. Non-Specific Active Suici pearl Thoughts (Past 1 Month) No 08/29/2025 9:34 AM EDT Quyen Gomez RN 6. Suicidal Behavior (Lifetime) No 9:34 AM EDT Earnestine Gomez RN documented as of this encounter Mental Status * Question Answer Entry Date Author Precautions Environmental surveillance 08/29/2025 8:0 0 PM EDT Oksana Santos RN * Question Answer Entry Date Author Scale Used John 08/26/2025 9:09 PM EDT Aristides Villatoro, RN documented in this encounter Plan of Treatment Upcoming Encounters Date Type Department Care Team (Latest Contact Info) Description 10/26/2025 2:45 PM EST Office Visit [facility] Head[facility] Neck & Respiratory [address] [phone] Kim Machado MD [address] [place] [address] 10/27/2025 11:00 AM EST Clinical Support [facility] Urology [address], [address] [place] [address] 11/17/2025 7:50 AM EST Clinical Support [facility] Multidisciplinary Oncology Clinic 800 [place] [address] 11/17/2025 8:00 AM EST Office Visit [facility] Multidisciplinary Oncology Clinic [address] [place] [address] Aristides Reina MD 800 [place] [address] 11/17/2025 2:00 PM EST Office Visit [facility] Nephrology, Bone & Mineral Metabolism [address] [facility], [address] [place] [address] 11/21/2025 2:00 PM EST Appointment [facility] S Radiology [address], [address] [place] [address] 12/01/2025 1:30 PM EST Office Visit [facility] Urology [address], [address] [place] [address] Yanely Rock, [address] [place] [address] 12/14/2025 10:00 AM EST Office Visit [facility] [place] [address] [facility], [address] [place] [address] Juarez Recinos MD [address] [place] [address] 01/13/2026 12:00 PM EST Office Visit [facility] [address] [place] [address] Eros Mejia MD 800 [place] [address] documented as of this encounter Procedures Procedure Name Priority Date/Time Associated Diagnosis Comments CT THORACIC OUTSIDE IMAGES 08/26/2025 8:18 AM EDT documented in this encounter Results * CT THORACIC OUTSIDE IMAGES (08/26/2025 8:18 AM EDT) Anatomical Region Laterality Modality Computed Tomogra phy 08/26/2025 8:18 AM EDT us External Provider IMG CT PROCEDURES Edited Resul t - Final documented in this encounter Visit Diagnoses Not on filedocumented in this encounter Additional Health Concerns Infection Onset Date Last Indicated Resolved Time C. difficile 08/14/2025 08/26/2025 Gastrointestinal Rule-Out 08/26/2025 08/26/2025 10:36 PM EDT C. difficile Rule-Out 08/27/2025 08/26/20252024 1:42 PM EDT Assessment Noted Time PHQ-9 Depression Total Score: 0 08/18/20 11:58 AM EDT A fall risk assessment has been complete d for the patient 08/20/2025 3:25 PM EDT A Body Mass Index follow-up plan has been documented for the patient 09/12/2025 4:57 PM EST documented as of this encounter Care Teams Corrugated Box Machine Operator Relationship Specialty Start Date End Date Darius Ken MD [address] [place] [address] PCP - General Internal Medicine 08/23/24 documented as of this encounter
--- OUTSIDE RECORDS SUMMARY | 2025-10-24 08:48 | XMS_ITS | Encounter Summary ---
Author Organization Healthcare Address [address] [place] [address] Care Team Providers Care Family Worker Name Role Phone Darius Ken MD Primary Care Provider [phone] Encounter Details Date Type Department Care Team (Late st Contact Info) Description 08/26/2025 Orders Only External Location 800 [place] [phone] Provider, External Social History Tobacco Use Types [...] any time in the past 12 m [facility], were you homeless or living in a long term (including now)? No 08/29/2025 [facility] Utilities Answer Date Recorded In [...] [facility] Head, Neck & Respiratory [address] [phone] Kim Machado MD [address] [place] [address] 10/27/2025 11:00 AM EST Clinical Support [facility] [address], [address] [place] [address] 11/17/2025 7:50 AM EST Clinical Support [facility] Multidisciplinary Oncology Clinic 800 [place] [phone] 11/17/2025 8:00 AM EST Office Visit [facility] Multidisciplinary Oncology Clinic [address] [place] [address] Aristides Reina MD 800 [place] [address] 11/17/2025 2:00 PM EST Office Visit [facility] Nephrology, Bone & Mineral Metabolism [address] [facility], [address] [place] [address] 11/21/2025 2:00 PM EST Appointment [facility] S Radiology [address], [address] [place] [address] 12/01/2025 1:30 PM EST Office Visit [facility] [address], [address] [place] [address] Yanely Rock, [address] [place] [address] 12/14/2025 10:00 AM EST Office Visit [facility] [place] [address] [facility], [address] [place] [address] Juarez Recinos MD 800 [place] [address] 01/13/2026 12:00 PM EST Office Visit [facility] [address] [place] [address] Eros Mejia MD 800 [place] [address] documented as of this encounter [...] documented as of this encounter Care Teams Family Worker Relationship Specialty Start Date End Date Darius Ken MD [address] [place] [address] PCP - General Internal Medicine 08/23/24 documented as of this encounter
--- OUTSIDE RECORDS SUMMARY | 2025-10-24 08:52 | XMS_ITS | Encounter Summary ---
Author Organization Healthcare Address [address] [place] [id number] Care Team Providers Care Animal Keeper Name Role Phone Darius Ken MD Primary Care Provider [phone] Encounter Details Date Type Department Care Team (Latest Contact Info) Description 09/19/2025 Travel Social History Tobacco Use Types Packs/Day [...] time in the past 12 m [facility], were you homeless or living in a alf (including now)? No 08/29/2025 [facility] Utilities Answer Date Recorded In [...] CC Head, Neck & Respiratory [address] [facility], 2nd [place] [address] Kim Machado MD [address] [place] [address] 10/27/2025 11:00 AM EST Clinical Support [facility] [address], 2nd [place] [address] 11/17/2025 7:50 AM EST Clinical Support [facility] Multidisciplinary Oncology Clinic 800 [place] [address] 11/17/2025 8:00 AM EST Office Visit [facility] 800 [place] [address] Aristides Reina MD 800 [place] [address] 11/17/2025 2:00 PM EST Office Visit [facility] Nephrology, Bone & Mineral Metabolism [address] [facility], [address] [place] [address] 11/21/2025 2:00 PM EST Appointment [facility] S Radiology [address], 1st [place] [address] 12/01/2025 1:30 PM EST Office Visit [facility] [address], 2nd [place] [address] Yanely Rock DO [address] [place] [address] 12/14/2025 10:00 AM EST Office Visit [facility] [place] [address] [facility], [address] [place] [address] Juarez Recinos MD 800 [place] [address] 01/13/2026 12:00 PM EST Office Visit [facility] [address] [facility] [address] [place] [address] Eros Mejia MD 800 [place] [address] documented as of this encounter [...] as of this encounter Care Teams Animal Keeper Relationship Specialty Start Date End Date Darius Ken MD [address] [place] [address] PCP - General Internal Medicine 08/23/24 documented as of this encounter
--- OUTSIDE RECORDS SUMMARY | 2025-10-24 08:52 | XMS_ITS | Encounter Summary ---
Author Organization Healthcare Address [address] [place] [id number] Care Team Providers Care Bootmaker Hand Name Role Phone Darisu Ken MD Primary Care Provider [phone] Encounter Details Date Type Department Care Team (Latest Contact Info) Description 09/13/2025 Travel Social History Tobacco Use Types Packs/Day [...] any time in the past 12 m [facility], were you homeless or living in a jail (including now)? No 08/29/2025 [facility] Utilities Answer Date Recorded In the [...] Pav CC Head, Neck & Respiratory [address] [facility], 2nd [place] [address] Kim Machado MD [address] [place] [address] 10/27/2025 11:00 AM EST Clinical Support [place] [facility] [address], 2nd [place] [address] 11/17/2025 7:50 AM EST Clinical Support [facility] Multidisciplinary Oncology Clinic 800 [place] [address] 11/17/2025 8:00 AM EST Office Visit [facility] 800 [place] [address] Aristides Reina MD 800 [place] [address] 11/17/2025 2:00 PM EST Office Visit [facility] Nephrology, Bone & Mineral Metabolism [address] [facility], [address] [place] [address] 11/21/2025 2:00 PM EST Appointment [facility] S Radiology [address], 1st [place] [address] 12/01/2025 1:30 PM EST Office Visit [facility] [address], 2nd [place] [address] Yanely Rock DO [address] [place] [address] 12/14/2025 10:00 AM EST Office Visit [facility] [place] [address] [facility], [address] [place] [address] Juarez Recinos MD 800 [place] [address] 01/13/2026 12:00 PM EST Office Visit [facility] [address] [facility] [address] [place] [address] Eros Mejia MD 800 [place] [address] documented as of this encounter [...] documented as of this encounter Care Teams Bootmaker Hand Relationship Specialty Start Date End Date Darius Ken MD [address] [place] [address] PCP - General Internal Medicine 08/23/24 documented as of this encounter
--- OUTSIDE RECORDS SUMMARY | 2025-10-24 08:52 | XMS_ITS | Encounter Summary ---
Author Organization Healthcare Address [address] [place] [id number] Care Team Providers Care Angiography Nurse Name Role Phone Darius Ken MD Primary Care Provider [phone] Encounter Details Date Type Department Care Team (Latest Contact Info) Description 09/21/2025 Travel Social History Tobacco Use Types Packs/Day [...] in a fci (including now)? No 08/29/2025 [facility] Utilities Answer Date Recorded In the [...] Pav CC Head, Neck & Respiratory [address] [facility], 2nd [place] [address] Kim Machado MD [address] [place] [address] 10/27/2025 11:00 AM EST Clinical Support [place] [facility] [address], 2nd [place] [address] 11/17/2025 7:50 AM EST Clinical Support [facility] Multidisciplinary Oncology Clinic 800 [place] [address] 11/17/2025 8:00 AM EST Office Visit [facility] [address] [place] [address] Aristides Reina MD 800 [place] [address] 11/17/2025 2:00 PM EST Office Visit [facility] Nephrology, Bone & Mineral Metabolism [address] [facility], [address] [place] [address] 11/21/2025 2:00 PM EST Appointment [facility] S Radiology [address], 1st [place] [address] 12/01/2025 1:30 PM EST Office Visit [facility] [address], 2nd [place] [address] Yanely Rock DO [address] [place] [address] 12/14/2025 10:00 AM EST Office Visit [facility] [place] [address] [facility], [address] [place] [address] Juarez Recinos MD 800 [place] [address] 01/13/2026 12:00 PM EST Office Visit [facility] [address] [facility] [address] [place] [address] Eros Mejia MD 800 [place] [address] documented as of this encounter [...] documented as of this encounter Care Teams Angiography Nurse Relationship Specialty Start Date End Date Darius Ken MD [address] [place] [address] PCP - General Internal Medicine 08/23/24 documented as of this encounter
--- OUTSIDE RECORDS SUMMARY | 2025-10-24 08:52 | XMS_ITS | Encounter Summary ---
Author Organization Healthcare Address [address] [place] [id number] Care Team Providers Care Recreation Activities Coordinator Name Role Phone Darius Ken MD Primary Care Provider [phone] Encounter Details Date Type Department Care Team (Latest Contact Info) Description 09/15/2025 Travel Social History Tobacco Use Types Packs/Day [...] time in the past 12 m [facility], were you homeless or living in a senior living (including now)? No 08/29/2025 [facility] Utilities Answer Date Recorded In [...] & Respiratory [address] [facility], 2nd [place] [address] Kim Machado MD [address] [place] [address] 10/27/2025 11:00 AM EST [facility] [address], 2nd [place] [address] 11/17/2025 7:50 AM EST Clinical Support [facility] Multidisciplinary Oncology Clinic 800 [place] [address] 11/17/2025 8:00 AM EST Office Visit [facility] [address] [place] [address] Aristides Reina MD 800 [place] [address] 11/17/2025 2:00 PM EST Office Visit [facility] Nephrology, Bone & Mineral Metabolism [address] [facility], [address] [place] [address] 11/21/2025 2:00 PM EST Appointment [facility] S Radiology [address], 1st [place] [address] 12/01/2025 1:30 PM EST Office Visit [facility] [address], 2nd [place] [address] Yanely Rock DO [address] [place] [address] 12/14/2025 10:00 AM EST Office Visit [facility] [place] [address] [facility], [address] [place] [address] Juarez Recinos MD 800 [place] [address] 01/13/2026 12:00 PM EST Office Visit [facility] [address] [facility] [address] [place] [address] Eros Mejia MD 800 [place] [address] documented as of this encounter [...] documented as of this encounter Care Teams Recreation Activities Coordinator Relationship Specialty Start Date End Date Darius Ken MD [address] [place] [address] PCP - General Internal Medicine 08/23/24 documented as of this encounter
--- OUTSIDE RECORDS SUMMARY | 2025-10-24 08:52 | XMS_ITS | Encounter Summary ---
Author Organization Healthcare Address [address] 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 Procedures MR Prostate wo IV Contrast Bettie Rosa MD [address] [address] Phone: tel: fax: Referral ID Status Reason Start Date Expiration Date V isits Requested Visits Authorized [id number] Pending Review 09/28/2025 03/30/2027 1 1 Encounter Details Date Type Department Care Team (Late st Contact Info) Description 09/28/[address] [facility] [address], 2nd [place] [address] Bettie Rosa MD [address] [address] 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 No 09/30/2025 [facility] Utilities Answer Date Recorded In the [...] Answer Date of Assessment Author Precautions Fall risk;[facility] surveillance 10/03/2025 8:00 AM Loni Sanchez RN * Over the past [...] Date of Assessment Author No Risk Indicated 10/03/2025 8:00 AM Loni Sanchez RN * Question Answer Date of Assessment Author 1. Wish to be (Past 1 Month) No 025 8:00 AM Loni Sanchez RN 2. Non-Specific Active Suici pearl Thoughts (Past 1 Month) No 10/03/2025 8:00 AM Loni Sanchez RN 6. Suicidal Behavior (Lifetime) No 8:00 AM Loni Sanchez RN documented as of this encounter Mental Status * Question Answer Entry Date Author Precautions Fall risk;[facility] surveillance 10/03/2025 8:00 AM Loni Sanchez RN documented in this encounter Plan of Treatment Upcoming Encounters Date Type Department Care Team (Latest Contact Info) Description 10/26/2025 2:45 PM EST Office Visit [facility] Head, Neck & Respiratory [address] , 2nd [place] [address] Kim Machado MD [address] [facility] [address] [place] [address] 10/27/2025 11:00 AM EST Clinical Support [facility] Urology [address], 2nd [place] [address] 11/17/2025 7:50 AM EST Clinical Support [facility] Multidisciplinary Oncology Clinic 800 [place] [address] 11/17/2025 8:00 AM EST Office Visit [facility] Multidisciplinary Oncology Clinic [address] [place] [address] Aristides Reina MD 800 [place] [address] 11/17/2025 2:00 PM EST Office Visit [facility] Nephrology, Bone & Mineral Metabolism [address] [facility], [address] [place] [address] 11/21/2025 2:00 PM EST Appointment [facility] S Radiology [address], 1st [place] [address] 12/01/2025 1:30 PM EST Office Visit [facility] Urology [address], 2nd [place] [address] Yanely Rock, [address] [place] [address] 12/14/2025 10:00 AM EST Office Visit [facility] [place] [address] [facility], [address] [place] [address] Juarez Recinos MD 800 [place] [address] 01/13/2026 12:00 PM EST Office Visit [facility] [address] [place] [address] Eros Mejia MD [address] [place] [address] Scheduled Orders Name Type Priority Associated Diagnoses Orde r Schedule MR Prostate wo IV Contrast Imaging Routine 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
--- OUTSIDE RECORDS SUMMARY | 2025-10-24 08:52 | XMS_ITS | Encounter Summary ---
Author Organization Healthcare Address [address] [place] [address] Care Team Providers Care Ramp Supervisor Name Role Phone Darius Ken MD Primary Care Provider [phone] Yanely Rock DO Unavailable [phone] Rosalinda Cox RN Unavailable Unavailable Encounter Details Date Type Department Care Team (Late st Contact Info) Description 09/21/2025 Results Follow-Up [facility] [place] [address] [facility] [place] [address] Juarez Recinos MD 800 [place] [address] Social History Tobacco Use Types Packs/Day Years [...] in a fpc (including now)? No 08/29/2025 [facility] Utilities Answer Date Recorded In the [...] Day, [place] documented as of this encounter Plan of Treatment Upcoming Encounters Date Type Department Care Team (Latest Contact Info) Description 10/26/2025 2:45 PM EST Office Visit [facility] Head, Neck & Respiratory [address] [facility], 2nd [place] [address] Kim Machado MD [address] [place] [address] 10/27/2025 11:00 AM EST Clinical Support [facility] [address], 2nd [place] [address] 11/17/2025 7:50 AM EST Clinical Support [facility] 800 [place] [address] 11/17/2025 8:00 AM EST Office Visit [facility] [address] [place] [address] Aristides Reina MD 800 [place] [address] 11/17/2025 2:00 PM EST Office Visit [facility] Nephrology, Bone & Mineral Metabolism [address] [facility], [address] [place] [address] 11/21/2025 2:00 PM EST Appointment [facility] S Radiology [address], 1st [place] [address] 12/01/2025 1:30 PM EST Office Visit [facility] U[facility] [address], 2nd [place] [address] Yanely Rock DO [address] [place] [address] 12/14/2025 10:00 AM EST Office Visit [facility] [place] [address] [facility], [address] [place] [address] Juarez Recinos MD 800 [place], [place] [address] 01/13/2026 12:00 PM EST Office Visit [facility] [address] [place] [address] Eros Mejia MD 800 [place] [address] documented as of this encounter [...] documented as of this encounter Care Teams Ramp Supervisor Relationship Specialty Start Date End Date Darius Ken MD [address] [place] [address] PCP - General Internal Medicine 08/23/24 Yanely Rock DO [address] [place] [address] Surgeon Urology 09/22/25 Rosalinda Cox, RN VALUE-BASED TRANSFORMATION PROGRAM [place], [place] Pet Technologist 10/04/25 documented as of this encounter
--- OUTSIDE RECORDS SUMMARY | 2025-10-24 08:52 | XMS_ITS | Encounter Summary ---
Author Organization Healthcare Address [address] [place] [address] Care Team Providers Care Curam Developer Name Role Phone Darius Ken MD Primary Care Provider [phone] Encounter Details Date Type Department Care Team (Late st Contact Info) Description 09/16/[address] [facility] [address] [place] [address] Faizan Post MD [address] [facility] [address] [place] [address] Social History Tobacco Use Types Packs/Day Years [...] time in the past 12 m [facility], were you homeless or living in a jail (including now)? No 08/29/2025 [facility] Utilities Answer Date Recorded In [...] encounter Miscellaneous Notes * Telephone Encounter - Hanna Estevezjob Crawford - 09/16/2025 2:36 PM EST Clinical Concern/Question Reason for Call: pt wants a call back to switch this to Best contact number: [phone] (mobile) Optimal time of day to reach caller: ANYTIME Additional comments/information from caller: None Note: Please do not reply to this message. Follow-up communication and further actions as a result of this message need to be communicated with the patient directly, if the patient is not active onMyChart. If the patient is active on MyChart, they will receive notification of the communication/outcome via MyChart. documented in this encounter Plan of Treatment Upcoming Encounters Date Type Department Care Team (Latest Contact Info) Description 10/26/2025 2:45 PM EST Office Visit [facility] Head, Neck & Respiratory [address] [address] Kim Machado MD [address] [place] [address] 10/27/2025 11:00 AM EST Clinical Support [facility] Urology [address] [address] 11/17/2025 7:50 AM EST Clinical Support [facility] 800 [place] [address] 11/17/2025 8:00 AM EST Office Visit [facility] Multidisciplinary Oncology Clinic [address] [place] [address] Aristides Reina MD 800 [place], [place] [address] 11/17/2025 2:00 PM EST Office Visit [facility] Nephrology, Bone & Mineral Metabolism [address] [facility], [address] [place] [address] 11/21/2025 2:00 PM EST Appointment [facility] S Radiology [address], [address] [place] [address] 12/01/2025 1:30 PM EST Office Visit [facility] Urology [address], [address] [place] [address] Yanely Rock DO [address] [place] [address] 12/14/2025 10:00 AM EST Office Visit [facility] [place] [address] [facility], [address] [place] [address] Juarez Recinos MD [address] [place] [address] 01/13/2026 12:00 PM EST Office Visit [facility] [address] [place] [address] Eros Mejia MD 800 [place] [address] documented as of this encounter [...] documented as of this encounter Care Teams Curam Developer Relationship Specialty Start Date End Date Darius Ken MD [address] [place] [address] PCP - General Internal Medicine 08/23/24 documented as of this encounter
--- OUTSIDE RECORDS SUMMARY | 2025-10-24 08:52 | XMS_ITS | Encounter Summary ---
Author Organization Healthcare Address [address] [place] [address] Care Team Providers Care Environmental Engineering Assistant Name Role Phone Darius Ken MD Primary Care Provider [phone] Encounter Details Date Type Department Care Team (Late st Contact Info) Description 09/19/2025 Telephone [facility] [address] [place] [address] Faizan Post MD [address] [facility] 100 [place] [address] Social History Tobacco Use Types [...] any time in the past 12 m [facility], were you homeless or living in a long-term (including now)? No 08/29/2025 [facility] Utilities Answer Date Recorded In [...] & Respiratory [address], 2nd [place] [address] Kim Machado MD [address] [facility] [address] [place] [address] 10/27/2025 11:00 AM EST Clinical Support [facility] Urology [address], 2nd [place] [address] 11/17/2025 7:50 AM EST Clinical Support [facility] Multidisciplinary Oncology Clinic [address] [place] [address] 11/17/2025 8:00 AM EST Office Visit [facility] Multidisciplinary Oncology Clinic [address] [place] [address] Aristides Reina MD 800 [place] [address] 11/17/2025 2:00 PM EST Office Visit [facility] Nephrology, Bone & Mineral Metabolism [address] [facility], [address] [place] [address] 11/21/2025 2:00 PM EST Appointment [facility] S Radiology [address], 1st [place] [address] 12/01/2025 1:30 PM EST Office Visit [facility] Urology [address], 2nd [place] [address] Yanely Rock R, DO [address] [place] [address] 12/14/2025 10:00 AM EST Office Visit [facility] [place] [address] [facility], [address] [place] [address] Juarez Recinos MD 800 [place] [address] 01/13/2026 12:00 PM EST Office Visit [facility] [address] [place] [address] Eros Mejia MD 800 [place] [address] documented as of this encounter [...] documented as of this encounter Care Teams Environmental Engineering Assistant Relationship Specialty Start Date End Date Darius Ken MD [address] [place] [address] PCP - General Internal Medicine 08/23/24 documented as of this encounter
--- OUTSIDE RECORDS SUMMARY | 2025-10-24 08:52 | XMS_ITS | Encounter Summary ---
Author Organization Healthcare Address [address] [place] [address] Care Team Providers Care Online Content Developer Name Role Phone Darius Ken MD Primary Care Provider [phone] Yanely Rock DO Unavailable [phone] Encounter Details Date Type Department Care Team (Latest Contact Info) Description 09/28/2025 Travel Social History Tobacco Use Types Packs/Day [...] in a skilled nursing (including now)? No 08/29/2025 [facility] Utilities Answer Date Recorded In the past 12 months has th e [employer], gas, oil, or water company threatened to [...] [facility] Head[facility] Neck & Respiratory [address], 2nd [place] [id number] Kim Machado MD [address] [place] [address] 10/27/2025 11:00 AM EST Clinical Support [facility] [address], [address] [place] [address] 11/17/2025 7:50 AM EST Clinical Support [facility] [address] [place] [address] 11/17/2025 8:00 AM EST Office Visit [facility] [address] [place] [address] Aristides Reina MD [address] [place] [address] 11/17/2025 2:00 PM EST Office Visit [facility] Nephrology, Bone & Mineral Metabolism [address] [facility], [address] [place] [address] 11/21/2025 2:00 PM EST Appointment [facility] [address], [address]st [place] [address] 12/01/2025 1:30 PM EST Office Visit [facility] [address], [address] [place] [address] Yanely Rock, [address] [place] [address] 12/14/2025 10:00 AM EST Office Visit [facility] [address] [facility], [address] [place] [address] Juarez Recinos MD [address] [place] [address] 01/13/2026 12:00 PM EST Office Visit [facility] [address] [place] [address] Eros Mejia MD [address] [place] [address] documented as of this encounter [...] documented as of this encounter Care Teams Online Content Developer Relationship Specialty Start Date End Date Darius Ken MD [address] [place] [address] PCP - General Internal Medicine 08/23/24 Yanely Rock DO [address] [facility] [address] [place] [address] Surgeon Urology 09/22/25 documented as of this encounter
--- OUTSIDE RECORDS SUMMARY | 2025-10-24 08:53 | XMS_ITS | Encounter Summary ---
Author Organization Healthcare Address [address] [place] [address] Care Team Providers Care I[employer] Commerce Consultant Name Role Phone Darius Ken MD Primary Care Provider [phone] Yanely Rock DO Unavailable [phone] Encounter Details Date Type Department Care Team (Late st Contact Info) Description 09/28/2025 Telephone [facility] [address], [address] [place] [address] Tatiana Weeks RN `````````````````````````` ````````````````````````[facility] - OPERATING ROOM, PAV A None Social History Tobacco Use Types Packs/Day Years [...] in a chcf (including now)? No 08/29/2025 [facility] Utilities Answer Date Recorded In the [...] encounter Miscellaneous Notes * Telephone Encounter - Tatiana Weeks RN - 09/28/2025 3:39 PM EST I attempted to contact Justin Best by phone at [phone] to schedule catheter exchange.There was no answer. I left a message for the patient to call the Urology Clinic at [phone]. documented in this encounter Plan of Treatment Upcoming Encounters Date Type Department Care Team (Latest Contact Info) Description 10/26/2025 2:45 PM EST Office Visit [facility] Res[facility] [address] [facility], [address]nd [place] [phone] Kim Machado MD [address] [place] [address] 10/27/2025 11:00 AM EST Clinical Support [facility] Urology [address], [address] [place] [address] 11/17/2025 7:50 AM EST Clinical Support [facility] Multidisciplinary Oncology Clinic [address] [place] [address] 11/17/2025 8:00 AM EST Office Visit [facility] [address] [place] [phone] Aristides Reina MD [address] [place], [place] [id number] 11/17/2025 2:00 PM EST Office Visit [facility] Nephrology, Bone & Mineral Metabolism [address] [facility] [facility], [address] [place] [address] 11/21/2025 2:00 PM EST Appointment [facility] Radiology [address], [address] [place] [address] 12/01/2025 1:30 PM EST Office Visit [facility] Urology [address], [address] [place] [address] Yanely Rock DO [address] [place] [address] 12/14/2025 10:00 AM EST Office Visit [facility] [place] [address] [facility] [facility], [address] [place] [phone] Juarez Recinos MD [address] [place] [address] 01/13/2026 12:00 PM EST Office Visit [facility] [address] [place] [address] Eros Mejia MD [address] [place] [address] documented as of this encounter [...] documented as of this encounter Care Teams I[employer] Commerce Consultant Relationship Specialty Start Date End Date Darius Ken MD [address] [place] [address] PCP - General Internal Medicine 08/23/24 Yanely Rock DO [address] [place] [address] Surgeon Urology 09/22/25 documented as of this encounter
--- OUTSIDE RECORDS SUMMARY | 2025-10-24 08:53 | XMS_ITS | Encounter Summary ---
Author Organization Healthcare Address [address] [place] [address] Care Team Providers Care Turnstile Collector Name Role Phone Darius Ken MD Primary Care Provider [phone] Yanely Rock DO Unavailable [phone] Encounter Details Date Type Department Care Team (Latest Contact Info) Description 09/22/2025 Travel Social History Tobacco Use Types Packs/Day [...] any time in the past 12 m [facility], were you homeless or living in a senior care (including now)? No 08/29/2025 [facility] Utilities Answer Date Recorded In the past [...] & Respiratory [address], [address] [place] [address] Kim Machado MD [address] [place] [address] 10/27/2025 11:00 AM EST Clinical Support [facility] Urology [address], [address] [place] [address] 11/17/2025 7:50 AM EST Clinical Support [facility] Multidisciplinary Oncology Clinic [address] [place] [address] 11/17/2025 8:00 AM EST Office Visit [facility] Multidisciplinary Oncology Clinic [address] [place] [address] Aristides Reina MD [address] [place] [address] 11/17/2025 2:00 PM EST Office Visit [facility] Nephrology, Bone & Mineral Metabolism [address] [facility] [facility], [address] [place] [address] 11/21/2025 2:00 PM EST Appointment [facility] Radiology [address], [address] [place] [address] 12/01/2025 1:30 PM EST Office Visit [facility] Urology [address], [address] [place] [address] Yanely Rock R, [address] [place] [address] 12/14/2025 10:00 AM EST Office Visit [facility] [address] [facility] [facility], [address] [place] [address] Juarez Recinos MD [address] [place] [address] 01/13/2026 12:00 PM EST Office Visit [facility] [address] [place] [address] Eros Mejia MD [address] [place] [address] documented as of this encounter Visit Diagnoses [...] documented as of this encounter Care Teams Turnstile Collector Relationship Specialty Start Date End Date Darius Ken MD [address] [place] [address] PCP - General Internal Medicine 08/23/24 Yanely Rock DO [address] [place] [address] Surgeon Urology 09/22/25 documented as of this encounter
--- OUTSIDE RECORDS SUMMARY | 2025-10-24 08:54 | XMS_ITS | Clinical Summary ---
Author Organization Healthcare Address [address] [place] [address] Care Team Providers Care Laundry Presser Name Role Phone Darius Ken MD Primary Care Provider [phone] Yanely Rock DO Unavailable [phone] Rosalinda Cox RN Unavailable Unavailable Allergies Active Allergy Reactions Criticality Noted Date Comments Oxycodone Hallucinations Medium 08/27/2025 Penicillins Unknown - Patient st ates they do not know rxn details Low 08/23/2024 Childhood allergy, thinks it was maybe a rash, but isn't sure Medications famotidine (Pepcid) 20 MG tablet Take 1 tablet by mouth daily. Active pantoprazole (Protonix) 40 MG EC tablet Take 1 tablet by mouth daily. Do not crush, chew, or split. Pt asking about refill 30 tablet 3 09/29/20 25 2025 Active Additional Information Patient not taking.Reported on 10/13/2025 finasteride (Proscar) 5 MG tablet Take 1 tablet by mouth daily. Do not crush, chew, or split. Pt asking about refill 30 tablet 3 09/29/20 25 Active MELATONIN PO Take 1 tablet by mouth at night as needed. Active emollient (Thera-Derm, Eucern) lotion moisturizing lotion To be applied in affected areas. 236 mL 10/05/20 25 Active tamsulosin (Flomax) 0.4 MG 24 hr capsule Take 1 capsule by mouth nightly. 30 capsule 10/05/20 25 Active Aluminum & Magnesium Hydroxide (gi cocktail) Take 30 mL by mouth 4 times a day as needed (Indigestion). 100 mL 10/05/20 25 2024 Active diphenhydrAMINE (Benadryl) 50 MG tablet Take 1 tablet by mouth at night as needed for itching. 30 tablet 10/05/20 Active diphenhydrAMINE (Benadryl) 50 MG tablet Take 1 tablet by mouth at night as needed for itching. 30 tablet 10/05/20 Active predniSONE (Deltasone) 10 MG tablet Take 8 tablets by mouth daily for 1 day, THEN 6 tablets daily for 7 days, THEN 4 tablets daily for 7 days, THEN 2 tablets daily for 7 days, THEN 1 tablet daily for 7 days, THEN 0.5 tablets daily for 7 days. 103 tablet 10/08/202025 Active triamcinolone (Kenalog) 0.5 % ointment 10/12/20 Active atovaquone (Mepron) 750 MG/5ML suspensionIndic ations:ATN (acute tubular necrosis) Take 10 mL by mouth daily. 300 mL 10/13/20 25 2025 Active pantoprazole (Protonix) 40 MG EC tablet Take 1 tablet by mouth daily. Do not crush, chew, or split. 30 tablet 08/15/20 25 2024 Discontinued(R eorder) guaiFENesin (Robitussin) 100 MG/5ML solution Take 10 mL by mouth every 4 hours as needed for cough. 2024 Discontinued(P er Patient Report) loperamide (Imodium A-D) 2 MG tablet Take 1 tablet by mouth every 2 hours as needed for diarrhea. MAX 8 tablets daily 2024 Discontinued acetaminophen (Tylenol) 500 MG tablet Take 1 tablet by mouth every 6 hours as needed for pain or fever. 2024 Discontinued(P er Patient Report) diphenhydrAMINE (Benadryl) 25 MG tablet Take 1 tablet by mouth at night as needed for itching. 2024 Discontinued(P er Patient Report) finasteride (Proscar) 5 MG tablet Take 1 tablet by mouth daily. Do not crush, chew, or split. 30 tablet 09/13/20 25 2024 Discontinued(R eorder) lidocaine (Uro-Jet) 2 % gel Insert 1 Application into the urethra as needed for mild pain. 15 mL 09/12/20 25 2024 Discontinued(P er Patient Report) melatonin tablet Take 2 tablets by mouth at night as needed for sleep. 30 tablet 09/12/20 25 2024 Discontinued(P er Patient Report) sodium chloride (Hernandez) 0.65 % nasal spray Administer 1 spray into each nostril as needed for congestion. 30 mL 12 09/12/20 25 2024 Discontinued(P er Patient Report) loperamide (Imodium A-D) 2 MG tablet Take 1 tablet by mouth every 2 hours as needed for diarrhea. MAX 8 tablets daily 30 tablet 09/29/20 25 2024 diphenhydrAMINE (Benadryl) 25 MG capsule Take 1 capsule by mouth as needed for itching. 2024 Discontinued(S top Taking at Discharge) atovaquone (Mepron) 750 MG/5ML suspensionIndic ations:ATN (acute tubular necrosis) Take 10 mL by mouth daily for 10 days. 100 mL 10/06/202024 Discontinued(R eorder) sodium bicarbonate 650 MG tablet Take 1 tablet by mouth 3 times a day for 7 days. 21 tablet 10/05/202024 Additional Information Patient not taking.Reported on 10/13/2025 predniSONE (Deltasone) 20 MG tablet Take 4 tablets by mouth daily for 2 days. 8 tablet 10/07/20 25 2024 Discontinued predniSONE (Deltasone) 20 MG tablet Take 3 tablets by mouth daily for 7 days, THEN 2 tablets daily for 7 days, THEN 1 tablet daily for 7 days, THEN 0.5 tablets daily for 7 days, THEN 0.5 tablets daily for 7 days. 49 tablet 10/08/202024 Discontinued Hospital, Clinic, or Other Facility Administered Medication Ordered Dose Route Frequency Start Date End Date Status lidocaine (Uro-Jet) 2 % gel 1 ApplicationIndicatio ns:Gross hematuria,BPH with elevated PSA and lower urinary tract symptoms 1 Application UR Once 09/28/2025 09/28/2025 Discontinue d Active Problems Problem Noted Date Diagnosed Date YOLI (acute kidney injury) 10/04/2025 ATN (acute tubular necrosis) 09/30/2025 Azotemia 09/30/2025 CKD (chronic kidney disease) stage 2, GFR 60-89 ml/min 09/30/2025 Hyperphosphatemia 09/30/2025 Metabolic acidosis 09/30/2025 Obstructive nephropathy 09/29/2025 Hypomagnesemia 09/29/2025 Hypophosphatemia 09/29/2025 Protein-calorie malnutrition, moderate Anemia, unspecified 09/29/2025 Asymptomatic bacteriuria 09/29/2025 Chronic heart failure with p reserved ejection fraction (HFpEF) 09/29/2025 Dysphagia 09/14/2025 Upper respiratory disease 09/14/2025 Neutropenic fever 2025 Thyroid mass 08/26/2025 Sepsis 08/26/2025 Epigastric pain 08/13/2025 Adenocarcinoma of gastroesophageal junction 07/11 Stage 3a chronic kidney disease 12/31/2024 Nephrolithiasis 12/31/2024 Essential hypertension 12/31/2024 Benign prostatic hyperplasia without lower urinary tract symptoms 12/31/2024 Resolved Problems Problem Noted Date Diagnosed Date Resolved Date Gastric adenocarcinoma 07/21/202509/14 Encounters Date Type Department Care Team Description 10/20/2025 Patient Outreach POPULATION [address], [facility] [address] [place] [address] Rosalinda Cox RN [facility] 10/20/2025 Travel 10/19/2025 Patient Outreach POPULATION [address] 100 [place] [address] Rosalinda Cox RN [facility] 10/19/2025 Travel 10/13/2025 1:00 PM EST Office Visit [facility] [address] [facility], [address] [place] [address] Chacho Lucas DO YOLI (acute kidney injury) (Primary Dx); ATN (acute tubular necrosis); AIN (acute interstitial nephritis) 10/13/2025 12:00 PM EST Clinical Support [facility] Multidisciplinary Oncology Clinic [address] [place] [address] YOLI (acute kidney injury) 10/13/2025 10:30 AM EST Office Visit [facility] [address] [place] [address] Aristides Reina MD YOLI (acute kidney injury) (Primary Dx) 10/13/2025 Orders Only Radiology Virtual Dept. 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) 10/13/2025 Travel 10/11/2025 Travel 10/10/2025 Patient Outreach POPULATION HEALTH [address] [place] [address] [place], [address] [address] Rosalinda Cox RN [facility] 10/06/2025 Travel 10/04/2025 Patient Outreach POPULATION HEALTH [address] [place] [address] De[place], [address] [address] Rosalinda Cox RN [facility] 10/04/2025 Patient Outreach POPULATION HEALTH [address] [place], [place] [address]za, [address] [address] Sofía Gómez 10/04/2025 Travel 09/29/2025 11:55 AM EST - 10/05/2025 5:47 PM EST Hospital Encounter [facility] Inpatient [address] [place] [phone] Aristides Byrd MD Arndt, MD Yun Pimentel Rani, MD Almaraz, Kayla M, DO Adenocarcinoma of gastroesophageal junction (Primary Dx); YOLI (acute kidney injury); Obstructive nephropathy; Asymptomatic bacteriuria; ATN (acute tubular necrosis); CKD (chronic kidney disease) stage 2, GFR 60-89 ml/min Discharge Disposition: Home or Self Care 09/29/2025 10:00 AM EST Office Visit [facility] [address] [place] [phone] Aristides Reina MD Adenocarcinoma of gastroesophageal junction (Primary Dx) 09/29/2025 9:30 AM EST Clinical Support [facility] [address] [place] [phone] Kalina Emerson RN Adenocarcinoma of gastroesophageal junction 09/29/2025 Travel 09/28/2025 12:00 PM EST Clinical Support [facility] [address], [address] [place] [address] Tatiana Weeks, YAHAIRA Gross hematuria (Primary Dx); BPH with elevated PSA and lower urinary tract symptoms 09/28/2025 10:15 AM EST Office Visit [facility] [address] [phone] Kim Machado MD 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 09/28/2025 7:21 AM EST - 09/28/2025 11:59 PM EST Hospital Encounter [facility] PET Scan [address] [place] [phone] Discharge Disposition: Home or Self Care 09/28/2025 7:20 AM EST Hospital Encounter [facility] PET Scan [address] [place] [phone] 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 Discharge Disposition: Home or Self Care 09/28/2025 Telephone [facility] [address], [address] [place] [phone] Tatiana Weeks RN 09/28/2025 Orders Only [facility] [address], [address] [place] [phone] Bettie Rosa MD BPH with elevated PSA and lower urinary tract symptoms (Primary Dx) 09/28/2025 Travel 09/22/2025 3:00 PM EST Office Visit [facility] [address], [address] [place] [phone] Yanely Rock DO Gross hematuria (Primary Dx); BPH with elevated PSA and lower urinary tract symptoms 09/22/2025 11:00 AM EST Office Visit [facility] [address] [place] [address] Carmen Post MD C. 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 [place] [address] Juarez Recinos MD 09/21/2025 Travel 09/19/2025 Travel 09/19/[address] [address] Carmen Post MD 09/16/2025 Telephone [facility] [address] [place] [phone] Carmen Post MD 09/15/2025 Travel 09/13/2025 2:29 PM EST - 09/13/2025 11:59 PM EST Hospital Encounter [facility]fusion [facility] 2 [address] [place] [address] Adenocarcinoma of gastroesophageal junction (Primary Dx); Urinary retention; Prostate enlargement Discharge Disposition: Home or Self Care 09/13/2025 1:30 PM EST Office Visit [facility] [address] [place] [phone] Aristides Reina MD Urinary retention (Primary Dx); Prostate enlargement; Adenocarcinoma of gastroesophageal junction 09/13/2025 1:15 PM EST Clinical Support [facility] [address] [place] [address] Adenocarcinoma of gastroesophageal junction 09/13/2025 Travel 09/12/2025 Telephone [facility] Medicine Virtual Dept. [address] [place] [phone] Joyce Gunderson MD Prior-authorization/i nsurance Verification 09/10/2025 Travel 09/01/2025 Travel 08/30/2025 Travel 08/28/2025 Travel 08/26/2025 12:54 PM EDT - 09/12/2025 5:50 PM EST Hospital Encounter [facility] Inpatient [place] [address] Dimitrios Napier MD Trott, Terren R, MD Tahir, MD Claire Morgan, MD Vesna Loomis Anne E, MD Ashna Rajan, Fnu, MD Neutropenic fever (CMS/HCC) (Primary Dx); C. difficile colitis; Adenocarcinoma of gastroesophageal junction; Urinary retention; Gross hematuria Discharge Disposition: Home or Self Care 08/26/2025 Travel 08/26/2025 Orders Only External Location [address] [place] [phone] Provider, External 08/26/2025 Orders Only External Location [address] [place] [address] Provider, External 08/26/2025 Orders Only [facility] [address] [place] [address] Aristides Reina MD Thyroid mass of unclear etiology (Primary Dx) 08/25/2025 Travel 08/20/2025 2:00 PM EDT - 08/20/2025 11:59 PM EDT Hospital Encounter [facility] Infusion [address] [place] [address] Adenocarcinoma of gastroesophageal junction (Primary Dx) Discharge Disposition: Home or Self Care 08/20/2025 Travel 08/18/2025 12:00 PM EDT - 08/18/2025 11:59 PM EDT Hospital Encounter [facility] Infusion [address] [place] [address] Adenocarcinoma of gastroesophageal junction (Primary Dx) Discharge Disposition: Home or Self Care 08/18/2025 11:00 AM EDT Office Visit [facility] [address] Nini Eason MD Malignant neoplasm of lower third of esophagus (Primary Dx); Encounter for antineoplastic chemotherapy 08/18/2025 10:30 AM EDT Clinical Support [facility] [address] [place] [address] Kalina Emerson, RN Adenocarcinoma of gastroesophageal junction 08/18/2025 8:31 AM EDT - 08/18/2025 11:59 AM EDT Hospital Encounter Cardiac Imaging [address] [phone] Atrial fibrillation, unspecified type (CMS/HCC) Discharge Disposition: Home or Self Care 08/18/2025 Travel 08/16/2025 Travel 08/13/2025 12:20 PM EDT - 08/15/2025 7:52 PM EDT Hospital Encounter [facility] [address] Kalina Crandall MD Buckingham, Bradley P, MD South, MD Donnie Paez Muzna, MD Epigastric pain (Primary Dx); Gastric adenocarcinoma (CMS/HCC); Nausea vomiting and diarrhea; Colitis; Atrial fibrillation, unspecified type (CMS/HCC); NSTEMI (non-ST elevated myocardial infarction) Discharge Disposition: Home or Self Care 08/13/2025 Travel 08/13/2025 Orders Only External Location 800 [place] [address] Kenneth Daniel MD 08/11/2025 Orders Only [facility] Nuclear Medicine [address] Quoc Pratt MD 08/11/2025 Travel 08/11/2025 Orders Only [facility] [address] [facility], [address] [place] [address] Jeanine Bhandari RN 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) 08/11/2025 Orders Only [facility]ck [facility] Res[facility] 800 [facility] [address] [place] [address] Jeanine Bhandari RN 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) 08/10/2025 Orders Only [facility] [address] [place] [address] Aristides Reina MD 08/10/2025 Telephone [facility] [address] [place] [address] Aristides Reina MD 08/05/2025 10:27 AM EDT - 08/05/2025 11:59 PM EDT Hospital Encounter [facility] Infusion 800 [place] [address] 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) Discharge Disposition: Home or Self Care 08/05/2025 Travel 08/03/2025 7:37 AM EDT - 08/03/2025 11:59 PM EDT Hospital Encounter [facility] Infusion [address] [place] [address] 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) Discharge Disposition: Home or Self Care 08/03/2025 Travel 08/02/2025 10:20 AM EDT - 08/02/2025 11:59 PM EDT Hospital Encounter [facility] Pulmonary Function Testing 800 [place] [address] 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 (CMS/HCC) Discharge Disposition: Home or Self Care 08/02/2025 Travel 08/02/2025 Orders Only [facility] [address] [place] [address] Zuri Angeles, PharmD 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) 07/29/2025 1:08 PM EDT Anesthesia Event [facility] OPERATING ROOM [address] [place] [address] RogozinJose Roberto sidhu MD Janszen, Philip J, DO 07/29/2025 12:25 PM EDT - 07/29/2025 2:20 PM EDT Surgery [facility] OPERATING ROOM [address] [place] [address] Ghulam Ugarte MD INSERTION, TUNNELED CENTRAL VENOUS DEVICE, WITH PORT [10893 (CPT )] 07/29/2025 10:06 AM EDT - 07/29/2025 11:59 PM EDT Hospital Encounter [facility] Echo [address] [facility] [address] [place] [address] 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 (CMS/HCC) Discharge Disposition: Home or Self Care 07/29/2025 9:39 AM EDT - 07/29/2025 3:30 PM EDT Hospital Encounter [facility] OPERATING ROOM [address] [place] [phone] Ghulam Ugarte MD 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] (Primary Dx) Discharge Disposition: Home or Self Care 07/29/2025 Travel 07/28/2025 Travel 07/28/2025 Telephone [facility] [address] [place] [phone] Ghulam Ugarte MD 07/27/2025 1:00 PM EDT Office Visit [facility] [address] [facility] [place] [address] Kim Machado MD 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 (CMS/HCC) 07/27/2025 9:59 AM EDT - 07/27/2025 11:59 PM EDT Hospital Encounter [facility] PET Scan [address] [place] [phone] Discharge Disposition: Home or Self Care 07/27/2025 9:58 AM EDT Hospital Encounter [facility] PET Scan [address] [place] [phone] 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 (CMS/HCC) Discharge Disposition: Home or Self Care 07/27/2025 Travel 07/25/2025 3:30 PM EDT [facility] Testing [place] [facility] [address], [address]st [place] [address] 07/25/2025 Travel from Last 3 Months Immunizations Immunization Administration Dates Next Due Hep A, Adult 03/26/2019 Influenza, High-dose, Split Virus, Trivalent, Injectable, preservative free 09/14/2025,07/21/2024,07/23/2023,07/29,07/19/2021,07/19/2020 Influenza, injectable, quadrivalent 07/22/2018 Influenza, injectable, quadr ivalent, preservative free 07/26/2019 Pneumococcal Conjugate PCV 13 10/22/2019 Pneumococcal Polysaccharide PPV23 10/23/2020 Rsvpref, Recombinant, Protei n Subunit, Adjuvent 01/20/2024 TD (adult), 2 Lf tetanus tox oid, preservative free, adsorbed 01/17/1997 Tdap 10/23/2020 Family History Medical History Relation Name Comments Cancer Father Heart failure Mother Relation Name Status Comments Father Mother Social History Tobacco Use Types Packs/Day Years [...] in a long term (including now)? No 10/10/2025 [facility] Utilities Answer Date Recorded In [...] F) 10/13/2025 1:40 PM EST Respiratory Rate 18 10/13/2025 9:26 AM EST Oxygen Saturation 96% 10/13/2025 1:40 PM EST Inhaled Oxygen Concentration - - Weight 81.1 kg (178 lb 12.8 oz) 10/13/2025 1:40 PM EST Height 182.9 cm (6') 10/13/2025 1:40 PM EST Body Mass Index 24.25 10/13/2025 1:40 PM EST Plan of Treatment Upcoming Encounters Date Type Department Care Team (Latest Contact Info) Description 10/26/2025 2:45 PM EST Office Visit [facility] [address] [facility], 2nd [place] [address] Kim Machado MD [address] [place] [phone] 10/27/2025 11:00 AM EST Clinical Support [facility] [address], 2nd [place] [address] 11/17/2025 7:50 AM EST Clinical Support [facility] Multidisciplinary Oncology Clinic [address] [place] [address] 11/17/2025 8:00 AM EST Office Visit [facility] Multidisciplinary Oncology Clinic [address] [place] [address] Aristides Renia MD 800 [place] [address] 11/17/2025 2:00 PM EST Office Visit [facility] Nephrology, Bone & Mineral Metabolism [address], [address] [place] [address] 11/21/2025 2:00 PM EST Appointment [facility] Radiology [address], [address] [place] [address] 12/01/2025 1:30 PM EST Office Visit [facility] [address], [address]nd [place] [address] Yanely Rock, [address] [place] [address] 12/14/2025 10:00 AM EST Office Visit [facility] [address], [address] [place] [address] Juarez Recinos MD [address] [place] [address] 01/13/2026 12:00 PM EST Office Visit [facility] [address] [place] [address] Eros Mejia MD [address] [place] [address] Health Maintenance Due Date Last Done Comments [facility]-Medicare Annual Wellness (AWV) 1955 [facility]-/Child/Adol SDOH Screenings 1955 [facility]-Zoster Vaccines (1 of 2) 1973 CT Colonography 1999 Colonoscopy 1999 FIT-DNA 1999 FIT 1999 FOBT 1999 Sigmoidoscopy 1999 [facility]-Colorectal Cancer Screening 1999 [id number] Vaccine ( season) 2025 12/23/2023, 04/09/2023, 09/25/2022, Additional history exists [facility]- SDOH Screenings 04/10/2026 [facility]-Adult SDOH Screenings 04/10/2026 10/10/2025 [facility]-Depression Screening 10/13/2026 10/13/2025, 07/2025 [facility]-DTaP,Tdap,and Td Vaccines (2 - Td or Tdap) 10/23/2030 10/23/2020, 01/17/1997 [facility]-Hepatitis A Vaccines Aged Out 03/26/2019 No longer eligible based on patient's age to complete this topic [facility]-Pneumococcal Vaccine: 50+ Years Completed 10/23/2020, 10/22/2019 [facility]-RSV Vaccine: 60+ Years or Completed 01/20/2024 [facility]-Hepatitis C Screening Completed 08/13/2025 [facility]-Influenza Vaccine Completed 09/14/2025 , 07/21/2024, 07/23/2023, Additional history exists HPV Vaccines (No Doses Required) Completed [facility]-HIB Vaccines Aged Out No longer e ligible based on patient's age to complete this topic [facility]-IPV Vaccines Aged Out No longer e ligible based on patient's age to complete this topic [facility]-Rotavirus Vaccines Aged Out No lo nger eligible based on patient's age to complete this topic Goals Goal Patient Goal Type Associated Problems [...] 4:27 PM EST) No Rosalinda Cox RN Patient to to be free from syncope Care Plan Symptom management Not on track( 4:29 PM EST) No Rosalinda Cox RN Medical Devices Implanted Type Area Blow Torch Operator Device Identifier Shelf Expiration Date Model / Serial / Lot Port Clearvue Power 8fr - [id number] Implanted:Qty : 1 on 07/29/2025 by Ghulam Ugarte MD at [facility] Catheter Right: Chest [employer]-[id number] 09/09/2026 [id number] / / [id number] Procedures Procedure Name Priority Date/Time Associated Diagnosis Comments COMPREHENSIVE METABOLIC PANEL, PLASMA Routine 10/13/2025 12:23 PM EST YOLI (acute kidney injury) CBC WITH AUTO DIFFERENTIAL Routine 10/13/2025 12:23 PM EST YOLI (acute kidney injury) BASIC METABOLIC PANEL, PLASMA Routine 10/05/2025 5:12 AM EST CBC W/O DIFFERENTIAL Routine 10/04/2025 9:07 PM EST CBC W/O DIFFERENTIAL Routine 10/04/2025 3:52 PM EST US GUIDED BIOPSY RENAL LEFT Routine 10/04/2025 9:13 AM EST SURGICAL PATHOLOGY EXAM Routine 10/04/2025 9:11 AM EST COMPREHENSIVE METABOLIC PANEL, PLASMA Routine 10/04/2025 5:49 AM EST MAGNESIUM, PLASMA Routine 10/04/2025 5:49 AM EST PHOSPHORUS, PLASMA Routine 10/04/2025 5:49 AM EST CBC WITH AUTO DIFFERENTIAL Routine 10/04/2025 5:49 AM EST TRANSFUSE RED BLOOD CELLS Routine 10/03/2025 10:40 PM EST TYPE AND SCREEN Routine 10/03/2025 8:33 PM EST PREPARE RBC Routine 10/03/2025 6:54 PM EST RENAL FUNCTION PANEL, PLASMA Routine 10/03/2025 6:18 AM EST CBC W/O DIFFERENTIAL Routine 10/03/2025 6:18 AM EST RENAL FUNCTION PANEL, PLASMA Routine 10/02/2025 6:11 AM EST CBC W/O DIFFERENTIAL Routine 10/02/2025 6:11 AM EST COMPREHENSIVE METABOLIC PANEL, PLASMA Routine 10/01/2025 3:34 AM EST MAGNESIUM, PLASMA Routine 10/01/2025 3:34 AM EST PHOSPHORUS, PLASMA Routine 10/01/2025 3:34 AM EST CBC WITH AUTO DIFFERENTIAL Routine 10/01/2025 3:34 AM EST TRANSFUSE RED BLOOD CELLS Routine 09/30/2025 2:01 PM EST TYPE AND SCREEN Routine 09/30/2025 10:00 AM EST PREPARE RBC Routine 09/30/2025 8:52 AM EST CBC W/O DIFFERENTIAL Routine 09/30/2025 4:17 AM EST PHOSPHORUS, PLASMA Routine 09/30/2025 4:17 AM EST MAGNESIUM, PLASMA Routine 09/30/2025 4:17 AM EST BASIC METABOLIC PANEL, PLASMA Routine 09/30/2025 4:17 AM EST SEND SCAR MESSAGE STAT 09/29/2025 1:46 PM EST URINALYSIS MICROSCOPIC FOR UA REFLEX STAT 09/29/2025 1:46 PM EST URINE OLIVEIRA PANEL STAT 09/29/2025 1:46 PM EST URINALYSIS WITH REFLEX MICROSCOPIC STAT 09/29/2025 1:46 PM EST URINALYSIS WITH REFLEX MICROSCOPIC AND CULTURE STAT 09/29/2025 1:46 PM EST CREATININE, RANDOM URINE STAT 09/29/2025 1:46 PM EST SODIUM, URINE, RANDOM STAT 09/29/2025 1:46 PM EST URINE CULTURE STAT 09/29/2025 1:46 PM EST US RENAL COMPLETE STAT 09/29/2025 1:09 PM EST PHOSPHORUS, PLASMA Add-On 09/29/2025 12:32 PM EST IRON & TOTAL IRON BINDING CAPACITY, PLASMA (INCLUDES TRANSFERRIN) Add-On 09/29/2025 12:32 PM EST CBC WITH AUTO DIFFERENTIAL STAT 09/29/2025 12:32 PM EST COMPREHENSIVE METABOLIC PANEL, PLASMA STAT 09/29/2025 12:32 PM EST CBC WITH AUTO DIFFERENTIAL Routine 09/29/2025 9:16 AM EST Adenocarcinoma of gastroesophageal junction COMPREHENSIVE METABOLIC PANEL, PLASMA Routine 09/29/2025 9:16 AM EST Adenocarcinoma of gastroesophageal junction MAGNESIUM, PLASMA Routine 09/29/2025 9:16 AM EST Adenocarcinoma of gastroesophageal junction PET/CT FDG SKULL BASE TO MID THIGH Routine 09/28/2025 8:51 AM EST 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 US HEAD NECK SOFT TISSUE Routine 09/22/2025 9:47 AM EST Thyroid mass of unclear etiology US GUIDED FINE NEEDLE ASPIRATION Routine 09/22/2025 9:47 AM EST Thyroid mass of unclear etiology FINE NEEDLE ASPIRATION - CYTOLOGY Routine 09/22/2025 9:30 AM EST Thyroid mass AFIRMA (SO) Routine 09/22/2025 9:30 AM EST Thyroid mass N-TERMINAL PROBNP, PLASMA Routine 09/21/2025 9:19 AM EST Atrial fibrillation, unspecified type (CMS/HCC) 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 TROPONIN T, HIGH SENSITIVITY, CARDIAC RISK ASSESSMENT Routine 09/21/2025 9:19 AM EST Atrial fibrillation, unspecified type (CMS/HCC) 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 PROSTATE SPECIFIC ANTIGEN, DIAGNOSTIC, SERUM Routine 09/13/2025 3:51 PM EST Urinary retention Prostate enlargement TSH REFLEX FT4 Routine 09/13/2025 12:51 PM EST Adenocarcinoma of gastroesophageal junction COMPREHENSIVE METABOLIC PANEL, PLASMA Routine 09/13/2025 12:51 PM EST Adenocarcinoma of gastroesophageal junction CBC WITH AUTO DIFFERENTIAL Routine 09/13/2025 12:51 PM EST Adenocarcinoma of gastroesophageal junction BASIC METABOLIC PANEL, PLASMA Routine 09/12/2025 4:45 AM EST CBC WITH AUTO DIFFERENTIAL Routine 09/12/2025 4:45 AM EST BASIC METABOLIC PANEL, PLASMA STAT 09/11/2025 10:50 AM EST CBC WITH AUTO DIFFERENTIAL STAT 09/11/2025 10:50 AM EST BASIC METABOLIC PANEL, PLASMA Routine 09/10/2025 3:04 AM EDT CBC WITH AUTO DIFFERENTIAL Routine 09/10/2025 3:04 AM EDT HEMOGLOBIN Routine 09/09/2025 12:09 PM EDT BASIC METABOLIC PANEL, PLASMA Routine 09/09/2025 5:49 AM EDT HEMOGLOBIN Routine 09/09/2025 5:49 AM EDT IONIZED CALCIUM, WHOLE BLOOD Pending Discharge 09/08/2025 11:55 PM EDT PHOSPHORUS, PLASMA Pending Discharge 09/08/2025 11:55 PM EDT POTASSIUM, PLASMA Pending Discharge 09/08/2025 11:55 PM EDT HEMOGLOBIN Routine 09/08/2025 11:54 PM EDT HEMOGLOBIN Pending Discharge 09/08/2025 6:43 PM EDT HEMOGLOBIN Pending Discharge 09/08/2025 11:54 AM EDT TRANSFUSE RED BLOOD CELLS Routine 09/08/2025 9:53 AM EDT TYPE AND SCREEN Pending Discharge 09/08/2025 7:57 AM EDT PREPARE RBC STAT 09/08/2025 7:09 AM EDT BASIC METABOLIC PANEL, PLASMA Pending Discharge 09/08/2025 5:08 AM EDT CBC WITH AUTO DIFFERENTIAL Pending Discharge 09/08/2025 5:08 AM EDT HEMOGLOBIN Pending Discharge 09/07/2025 11:58 PM EDT SEDIMENTATION RATE, AUTOMATED Pending Discharge 09/07/2025 11:58 PM EDT HEMOGLOBIN STAT 09/07/2025 6:56 PM EDT SEND SCAR MESSAGE STAT 09/07/2025 5:35 PM EDT URINALYSIS MICROSCOPIC FOR UA REFLEX STAT 09/07/2025 5:35 PM EDT URINE OLIVEIRA PANEL Pending Discharge 09/07/2025 5:35 PM EDT URINALYSIS WITH REFLEX MICROSCOPIC Pending Discharge 09/07/2025 5:35 PM EDT URINALYSIS WITH REFLEX MICROSCOPIC AND CULTURE Routine 09/07/2025 5:35 PM EDT URINE CULTURE STAT 09/07/2025 5:35 PM EDT C-REACTIVE PROTEIN, PLASMA Pending Discharge 09/07/2025 4:10 AM EDT PHOSPHORUS, PLASMA Add-On 09/07/2025 4:10 AM EDT MAGNESIUM, PLASMA Add-On 09/07/2025 4:10 AM EDT BASIC METABOLIC PANEL, PLASMA Pending Discharge 09/07/2025 4:10 AM EDT CBC WITH AUTO DIFFERENTIAL Pending Discharge 09/07/2025 4:10 AM EDT PHOSPHORUS, PLASMA Routine 09/06/2025 2:35 AM EDT MAGNESIUM, PLASMA Routine 09/06/2025 2:35 AM EDT CBC WITH AUTO DIFFERENTIAL Routine 09/06/2025 2:35 AM EDT COMPREHENSIVE METABOLIC PANEL, PLASMA Routine 09/06/2025 2:35 AM EDT CARIS ID TUMOR SEEK HYBRID + IHCS AND OTHER TESTS BY TUMOR TYPE Routine 09/05/2025 8:12 PM EDT Malignant neoplasm of lower third of esophagus WOUND OSTOMY EVAL AND TREAT Routine 09/04/2025 3:08 PM EDT MORPHOLOGY Routine 09/04/2025 4:50 AM EDT MANUAL DIFFERENTIAL Routine 09/04/2025 4:50 AM EDT PHOSPHORUS, PLASMA Routine 09/04/2025 4:50 AM EDT MAGNESIUM, PLASMA Routine 09/04/2025 4:50 AM EDT BASIC METABOLIC PANEL, PLASMA Routine 09/04/2025 4:50 AM EDT CBC WITH AUTO DIFFERENTIAL Routine 09/04/2025 4:50 AM EDT MORPHOLOGY Routine 09/03/2025 4:23 AM EDT MANUAL DIFFERENTIAL Routine 09/03/2025 4:23 AM EDT SEDIMENTATION RATE, AUTOMATED Routine 09/03/2025 4:23 AM EDT C-REACTIVE PROTEIN, PLASMA Routine 09/03/2025 4:23 AM EDT PROCALCITONIN, PLASMA Routine 09/03/2025 4:23 AM EDT HEPATIC FUNCTION PANEL Routine 09/03/2025 4:23 AM EDT BASIC METABOLIC PANEL, PLASMA Routine 09/03/2025 4:23 AM EDT CBC WITH AUTO DIFFERENTIAL Routine 09/03/2025 4:23 AM EDT MAGNESIUM, PLASMA Routine 09/03/2025 4:23 AM EDT PHOSPHORUS, PLASMA Routine 09/03/2025 4:23 AM EDT MORPHOLOGY Routine 09/02/2025 3:06 AM EDT MANUAL DIFFERENTIAL Routine 09/02/2025 3:06 AM EDT SEDIMENTATION RATE, AUTOMATED Routine 09/02/2025 3:06 AM EDT C-REACTIVE PROTEIN, PLASMA Routine 09/02/2025 3:06 AM EDT PROCALCITONIN, PLASMA Routine 09/02/2025 3:06 AM EDT HEPATIC FUNCTION PANEL Routine 09/02/2025 3:06 AM EDT BASIC METABOLIC PANEL, PLASMA Routine 09/02/2025 3:06 AM EDT CBC WITH AUTO DIFFERENTIAL Routine 09/02/2025 3:06 AM EDT MAGNESIUM, PLASMA Routine 09/02/2025 3:06 AM EDT PHOSPHORUS, PLASMA Routine 09/02/2025 3:06 AM EDT CORTISOL Routine 09/01/2025 8:57 AM EDT HEMOGLOBIN AND HEMATOCRIT, BLOOD Routine 09/01/2025 4:50 AM EDT MORPHOLOGY Routine 09/01/2025 4:05 AM EDT MANUAL DIFFERENTIAL Routine 09/01/2025 4:05 AM EDT TSH Routine 09/01/2025 4:05 AM EDT SEDIMENTATION RATE, AUTOMATED Routine 09/01/2025 4:05 AM EDT C-REACTIVE PROTEIN, PLASMA Routine 09/01/2025 4:05 AM EDT PROCALCITONIN, PLASMA Routine 09/01/2025 4:05 AM EDT HEPATIC FUNCTION PANEL Routine 09/01/2025 4:05 AM EDT BASIC METABOLIC PANEL, PLASMA Routine 09/01/2025 4:05 AM EDT CBC WITH AUTO DIFFERENTIAL Routine 09/01/2025 4:05 AM EDT MAGNESIUM, PLASMA Routine 09/01/2025 4:05 AM EDT PHOSPHORUS, PLASMA Routine 09/01/2025 4:05 AM EDT BASIC METABOLIC PANEL, PLASMA Routine 2025 1:16 PM EDT URINALYSIS MICROSCOPIC FOR UA REFLEX Routine 2025 10:38 AM EDT OSMOLALITY, URINE Routine 2025 10:38 AM EDT SODIUM, URINE, RANDOM Routine 2025 10:38 AM EDT URINALYSIS WITH REFLEX MICROSCOPIC Routine 2025 10:38 AM EDT MORPHOLOGY Routine 2025 4:23 AM EDT MANUAL DIFFERENTIAL Routine 2025 4:23 AM EDT SEDIMENTATION RATE, AUTOMATED Routine 2025 4:23 AM EDT C-REACTIVE PROTEIN, PLASMA Routine 2025 4:23 AM EDT PROCALCITONIN, PLASMA Routine 2025 4:23 AM EDT HEPATIC FUNCTION PANEL Routine 2025 4:23 AM EDT BASIC METABOLIC PANEL, PLASMA Routine 2025 4:23 AM EDT CBC WITH AUTO DIFFERENTIAL Routine 2025 4:23 AM EDT MAGNESIUM, PLASMA Routine 2025 4:23 AM EDT PHOSPHORUS, PLASMA Routine 2025 4:23 AM EDT US RENAL COMPLETE Routine 08/30/2025 4:07 PM EDT URINALYSIS MICROSCOPIC FOR UA REFLEX Routine 08/30/2025 3:26 PM EDT URINE OLIVEIRA PANEL Routine 08/30/2025 3:26 PM EDT URINALYSIS WITH REFLEX MICROSCOPIC Routine 08/30/2025 3:26 PM EDT URINALYSIS WITH REFLEX MICROSCOPIC AND CULTURE Routine 08/30/2025 3:26 PM EDT MORPHOLOGY Routine 08/30/2025 1:03 AM EDT MANUAL DIFFERENTIAL Routine 08/30/2025 1:03 AM EDT SEDIMENTATION RATE, AUTOMATED Routine 08/30/2025 1:03 AM EDT C-REACTIVE PROTEIN, PLASMA Routine 08/30/2025 1:03 AM EDT PROCALCITONIN, PLASMA Routine 08/30/2025 1:03 AM EDT HEPATIC FUNCTION PANEL Routine 08/30/2025 1:03 AM EDT BASIC METABOLIC PANEL, PLASMA Routine 08/30/2025 1:03 AM EDT CBC WITH AUTO DIFFERENTIAL Routine 08/30/2025 1:03 AM EDT MAGNESIUM, PLASMA Routine 08/30/2025 1:03 AM EDT PHOSPHORUS, PLASMA Routine 08/30/2025 1:03 AM EDT MORPHOLOGY Routine 08/29/2025 3:03 AM EDT MANUAL DIFFERENTIAL Routine 08/29/2025 3:03 AM EDT SEDIMENTATION RATE, AUTOMATED Routine 08/29/2025 3:03 AM EDT C-REACTIVE PROTEIN, PLASMA Routine 08/29/2025 3:03 AM EDT PROCALCITONIN, PLASMA Routine 08/29/2025 3:03 AM EDT HEPATIC FUNCTION PANEL Routine 08/29/2025 3:03 AM EDT BASIC METABOLIC PANEL, PLASMA Routine 08/29/2025 3:03 AM EDT CBC WITH AUTO DIFFERENTIAL Routine 08/29/2025 3:03 AM EDT MAGNESIUM, PLASMA Routine 08/29/2025 3:03 AM EDT PHOSPHORUS, PLASMA Routine 08/29/2025 3:03 AM EDT SEDIMENTATION RATE, AUTOMATED Routine 08/28/2025 4:47 AM EDT C-REACTIVE PROTEIN, PLASMA Routine 08/28/2025 4:47 AM EDT PROCALCITONIN, PLASMA Routine 08/28/2025 4:47 AM EDT HEPATIC FUNCTION PANEL Routine 08/28/2025 4:47 AM EDT BASIC METABOLIC PANEL, PLASMA Routine 08/28/2025 4:47 AM EDT CBC WITH AUTO DIFFERENTIAL Routine 08/28/2025 4:47 AM EDT MAGNESIUM, PLASMA Routine 08/28/2025 4:47 AM EDT PHOSPHORUS, PLASMA Routine 08/28/2025 4:47 AM EDT URINALYSIS MICROSCOPIC FOR UA REFLEX STAT 08/27/2025 7:44 AM EDT URINE OLIVEIRA PANEL STAT 08/27/2025 7:44 AM EDT URINALYSIS WITH REFLEX MICROSCOPIC STAT 08/27/2025 7:44 AM EDT URINALYSIS WITH REFLEX MICROSCOPIC AND CULTURE STAT 08/27/2025 7:44 AM EDT PHOSPHORUS, PLASMA Routine 08/27/2025 12:17 AM EDT MAGNESIUM, PLASMA Routine 08/27/2025 12:17 AM EDT BASIC METABOLIC PANEL, PLASMA Routine 08/27/2025 12:17 AM EDT CBC WITH AUTO DIFFERENTIAL Routine 08/27/2025 12:17 AM EDT CLOSTRIDIUM DIFFICILE EIA Routine 08/26/2025 8:18 PM EDT CLOSTRIDIODES (CLOSTRIDIUM) DIFFICILE,PCR Add-On 08/26/2025 8:18 PM EDT OVA AND PARASITE EXAM, FECAL (SO) Routine 08/26/2025 8:18 PM EDT COMPREHENSIVE GI PANEL BY PCR Routine 08/26/2025 8:18 PM EDT TROPONIN T, HIGH SENSITIVITY, 2 HOUR, PLASMA Timed 08/26/2025 5:11 PM EDT BLOOD CULTURE (AEROBIC/ANAEROBIC SET) STAT 08/26/2025 5:11 PM EDT XR CHEST 2 VIEWS STAT 08/26/2025 4:57 PM EDT ECG ADULT STAT 08/26/2025 1:45 PM EDT EXTRA TUBE GOLD TOP Routine 08/26/2025 1:35 PM EDT EXTRA TUBE GOLD TOP Routine 08/26/2025 1:35 PM EDT EXTRA TUBE LIGHT BLUE TOP Routine 08/26/2025 1:35 PM EDT EXTRA TUBES Routine 08/26/2025 1:35 PM EDT LIPASE, PLASMA STAT 08/26/2025 1:35 PM EDT TROPONIN T, HIGH SENSITIVITY, 0 HOUR, PLASMA, REFLEX TO 2 HOUR STAT 08/26/2025 1:35 PM EDT BLOOD GAS PANEL, VENOUS STAT 08/26/2025 1:35 PM EDT C-REACTIVE PROTEIN, PLASMA STAT 08/26/2025 1:35 PM EDT LACTATE, VENOUS STAT 08/26/2025 1:35 PM EDT PHOSPHORUS, PLASMA STAT 08/26/2025 1:35 PM EDT MAGNESIUM, PLASMA STAT 08/26/2025 1:35 PM EDT CBC WITH AUTO DIFFERENTIAL STAT 08/26/2025 1:35 PM EDT COMPREHENSIVE METABOLIC PANEL, PLASMA STAT 08/26/2025 1:[address] THORACIC OUTSIDE IMAGES 08/26/2025 8:[address] THORACIC OUTSIDE IMAGES 08/26/2025 8:18 AM EDT CBC WITH AUTO DIFFERENTIAL Routine 08/18/2025 9:55 AM EDT Adenocarcinoma of gastroesophageal junction COMPREHENSIVE METABOLIC PANEL, PLASMA Routine 08/18/2025 9:55 AM EDT Adenocarcinoma of gastroesophageal junction ADULT PATCH MONITOR - 14 DAY Routine 08/18/2025 8:56 AM EDT Atrial fibrillation, unspecified type (CMS/HCC) LACTATE, VENOUS Routine 08/15/2025 4:20 AM EDT [...] ANESTHESIA PLACEHOLDER Routine 07/29/2025 1:16 PM EDT CO AN ELECTIVE ENDOTRACHEAL AIRWAY Routine 07/29/2025 1:16 PM EDT CO INSERT TUNNELED CV CATH WITH PORT 07/29/2025 12:56 PM EDT Gastric adenocarcinoma (CMS/HCC) Special Needs [facility] ECHO, ADULT TRANSTHORACIC COMPLETE W/ STRAIN, 3D STAT 07/29/2025 10:51 AM EDT 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 WBC Count 11.69(H) 3.70 - 10.30 10*3/uL LAB HEMATOLOGY METHOD 10/13/2025 1:34 PM [facility] RBC Count 3.54(L) 4.60 - 6.10 10*6/uL LAB HEMATOLOGY METHOD 10/13/2025 1:34 PM [facility] HGB 10.2(L) 13.7 - 17.5 g/dL LAB HEMATOLOGY METHOD 10/13/2025 1:34 PM [facility] HCT 31.5(L) 40.0 - 51.0 % LAB HEMATOLOGY METHOD 10/13/2025 1:34 PM [facility] Platelet Count 297 155 - 369 10*3/uL LAB HEMATOLOGY METHOD 10/13/2025 1:34 PM [facility] MCV 89 79 - 98 fL LAB HEMATOLOGY METHOD 10/13/2025 1:34 PM [facility] MCH 28.8 26.0 - 32.0 pg LAB HEMATOLOGY METHOD 10/13/2025 1:34 PM [facility] MCHC 32.4 30.7 - 35.5 g/dL LAB HEMATOLOGY METHOD 10/13/2025 1:34 PM [facility] RDW 15.1(H) 11.5 - 14.5 % LAB HEMATOLOGY METHOD 10/13/2025 1:34 PM [facility] MPV 10.9 8.8 - 12.5 fL LAB HEMATOLOGY METHOD 10/13/2025 1:34 PM [facility] nRBC 0.0 <=0.0 per 100 WBCs LAB HEMATOLOGY METHOD 10/13/2025 1:34 PM [facility] Differential Type Automated LAB HEMATOLOGY METHOD 10/13/2025 1:34 PM [facility] Neutrophils % 89 % LAB HEMATOLOGY METHOD 10/13/2025 1:34 PM [facility] Lymphocytes % 5 % LAB HEMATOLOGY METHOD 10/13/2025 1:34 PM [facility] Monocytes % 5 % LAB HEMATOLOGY METHOD 10/13/2025 1:34 PM [facility] Eosinophils % 0 % LAB HEMATOLOGY METHOD 10/13/2025 1:34 PM [facility] Basophils % 0 % LAB HEMATOLOGY METHOD 10/13/2025 1:34 PM [facility] Immature Granulocytes % 1 % LAB HEMATOLOGY METHOD 10/13/2025 1:34 PM [facility] Neutrophils Absolute 10.38(H) 1.60 - 6.10 10*3/uL LAB HEMATOLOGY METHOD 10/13/2025 1:34 PM [facility] Lymphocytes Absolute 0.63(L) 1.20 - 3.90 10*3/uL LAB HEMATOLOGY METHOD 10/13/2025 1:34 PM [facility] Monocytes Absolute 0.54 0.30 - 0.90 10*3/uL LAB HEMATOLOGY METHOD 10/13/2025 1:34 PM [facility] Eosinophils Absolute 0.04 0.00 - 0.50 10*3/uL LAB HEMATOLOGY METHOD 10/13/2025 1:34 PM [facility] Basophils Absolute 0.01 0.00 - 0.10 10*3/uL LAB HEMATOLOGY METHOD 10/13/2025 1:34 PM [facility] Immature Granulocytes Absolute 0.09(H) 0.00 - 0.06 10*3/uL LAB HEMATOLOGY METHOD 10/13/2025 1:34 PM [facility] Blood Blood sample taken from central line / Unknown (Port) Long-term Catheter / Unknown 10/13/2025 12:23 PM EST 10/13/2025 1:[address] [facility] - 10/13/2025 1:34 PM EST Therapeutic decision making should be based on absolute values, rather than percentages. us Jatinder Sims MD LAB BLOOD ORDERABLES Final Resul t [facility] [address] [place] [address] * (ABNORMAL) Comprehensive metabolic panel (10/13/2025 12:23 PM EST) Only the most recent of12 resultswithin the time period is included. Glucose, Plasma 99 74 - 99 mg/dL 10/13/2025 1:58 PM EST [facility] BUN, Plasma 45(H) 8 - 23 mg/dL 10/13/2025 1:58 PM EST [facility] Creatinine, Plasma 2.06(H) 0.70 - 1.20 mg/dL 10/13/2025 1:58 PM EST [facility] BUN/Creatinine Ratio 22 10/13/2025 1:58 PM EST [facility] Sodium, Plasma 135(L) 136 - 145 mmol/L 10/13/2025 1:58 PM EST [facility] Potassium, Plasma 4.1 3.6 - 4.9 mmol/L 10/13/2025 1:58 PM EST [facility] Chloride, Plasma 100 97 - 107 mmol/L 10/13/2025 1:58 PM EST [facility] CO2, Plasma 25 22 - 29 mmol/L 10/13/2025 1:58 PM EST [facility] Anion Gap 10 6 - 16 mmol/L 10/13/2025 1:58 PM EST [facility] Total Calcium, Plasma 8.8(L) 8.9 - 10.2 mg/dL 10/13/2025 1:58 PM EST [facility] Total Protein 6.4 6.3 - 7.9 g/dL 10/13/2025 1:58 PM EST [facility] Albumin, Plasma 3.0(L) 3.5 - 5.2 g/dL 10/13/2025 1:58 PM EST [facility] AST, Plasma 20 10 - 50 U/L 10/13/2025 1:58 PM EST [facility] ALT, Plasma 32 10 - 50 U/L 10/13/2025 1:58 PM EST [facility] Alkaline Phosphatase, Plasma 71 40 - 115 U/L 10/13/2025 1:58 PM EST [facility] Total Bilirubin, Plasma 0.6 0.2 - 1.1 mg/dL 10/13/2025 1:58 PM EST [facility] eGFRcr 33.8 mL/min/1.7 3m*2 10/13/2025 1:58 PM EST [facility] Comment:Reported eGFRcr in m L/min/1.73m2 is based the CKD-EPI 2020 equation that does not use a race coefficient. Blood Blood sample taken from central line / Unknown (Port) Long-term Catheter / Unknown 10/13/2025 12:23 PM EST 10/13/2025 1:27 PM EST us Jatinder Sims MD LAB BLOOD ORDERABLES Final Resul t [facility] [address] [place] [address] * (ABNORMAL) Basic Metabolic Panel, Plasma (10/05/2025 5:12 AM EST) Only the most recent of19 resultswithin the time period is included. Glucose, Plasma 108(H) 74 - 99 mg/dL 10/05/2025 5:53 AM EST [facility] BUN, Plasma 61(H) 8 - 23 mg/dL 10/05/2025 5:53 AM EST [facility] Creatinine, Plasma 5.25(H) 0.70 - 1.20 mg/dL 10/05/2025 5:53 AM EST [facility] BUN/Creatinine Ratio 12 10/05/2025 5:53 AM EST [facility] Sodium, Plasma 137 136 - 145 mmol/L 10/05/2025 5:53 AM EST [facility] Potassium, Plasma 4.0 3.6 - 4.9 mmol/L 10/05/2025 5:53 AM EST [facility] Chloride, Plasma 106 97 - 107 mmol/L 10/05/2025 5:53 AM EST [facility] CO2, Plasma 20(L) 22 - 29 mmol/L 10/05/2025 5:53 AM EST [facility] Anion Gap 11 6 - 16 mmol/L 10/05/2025 5:53 AM EST [facility] Total Calcium, Plasma 8.2(L) 8.9 - 10.2 mg/dL 10/05/2025 5:53 AM EST [facility] eGFRcr 11.0 mL/min/1.7 3m*2 10/05/2025 5:53 AM EST [facility] Comment:Reported eGFRcr in m L/min/1.73m2 is based the CKD-EPI 2020 equation that does not use a race coefficient. Blood Venous blood specimen / Unknown Venipuncture / Unknown 10/05/2025 5:12 AM EST 10/05/2025 5:23 AM EST Reny Christensen DO LAB BLOOD ORDERABLES Final Re sult [facility] [address] [place] [address] * (ABNORMAL) CBC W/O Differential (10/04/2025 9:07 PM EST) Only the most recent of5 resultswithin the time period is included. WBC Count 5.58 3.70 - 10.30 10*3/uL LAB HEMATOLOGY METHOD 10/04/2025 9:24 PM EST [facility] RBC Count 3.18(L) 4.60 - 6.10 10*6/uL LAB HEMATOLOGY METHOD 10/04/2025 9:24 PM EST [facility] HGB 8.9(L) 13.7 - 17.5 g/dL LAB HEMATOLOGY METHOD 10/04/2025 9:24 PM EST [facility] HCT 28.0(L) 40.0 - 51.0 % LAB HEMATOLOGY METHOD 10/04/2025 9:24 PM EST [facility] Platelet Count 337 155 - 369 10*3/uL LAB HEMATOLOGY METHOD 10/04/2025 9:24 PM EST [facility] MCV 88 79 - 98 fL LAB HEMATOLOGY METHOD 10/04/2025 9:24 PM EST [facility] MCH 28.0 26.0 - 32.0 pg LAB HEMATOLOGY METHOD 10/04/2025 9:24 PM EST [facility] MCHC 31.8 30.7 - 35.5 g/dL LAB HEMATOLOGY METHOD 10/04/2025 9:24 PM EST [facility] RDW 14.9(H) 11.5 - 14.5 % LAB HEMATOLOGY METHOD 10/04/2025 9:24 PM EST [facility] MPV 9.8 8.8 - 12.5 fL LAB HEMATOLOGY METHOD 10/04/2025 9:24 PM EST [facility] nRBC 0.0 <=0.0 per 100 WBCs LAB HEMATOLOGY METHOD 10/04/2025 9:24 PM EST [facility] Blood Venous blood specimen / Unknown Venipuncture / Unknown 10/04/2025 9:07 PM EST 10/04/2025 9:16 PM EST us Reny Christensen DO LAB BLOOD ORDERABLES Final Re sult [facility] [address] [place] [address] * US Guided Biopsy Renal Left (10/04/2025 9:13 AM EST) Anatomical Region Laterality Modality Kidney Left X-Ray Angiograph y Impressions 10/04/2025 12:55 PM EST Successful non-target ultrasound guided left eagle kidney biopsy CRITICAL RESULT: No. COMMUNICATION: Per this written report. Drafted by Cristel Page on 10/04/2025 12:54 PM Final report signed by Cristel Page on 10/04/2025 12:55 PM Narrative 10/04/2025 12:55 PM EST CLINICAL INDICATION: YOLI TECHNIQUE: Insurance Adviser: Dr. Page Secondary Network Security Analyst: None Medications used: 1 mg midazolam 50 [...] specimens were preliminary examined by the surgical pathologist/science technicians present in the ultrasound room and were found to have enough number of glomeruli. The biopsy site was then cleaned, and a bandage applied. Patient tolerated the procedure well. COMPARISON: None. FINDINGS: Left kidney identified. Immediate post procedural scanning demonstrated no perinephric hematoma. COMPLICATION: No. Procedure Note Cristel Page MD - 10/04/2025 CLINICAL INDICATION: YOLI TECHNIQUE: Insurance Adviser: Dr. Page Secondary Network Security Analyst: None Medications used: 1 mg midazolam 50 [...] biopsy specimens were preliminary examined by the surgicalpathologist/science technicians present in the ultrasound room and werefound to have enough number of glomeruli. The biopsy site was then cleaned, and a bandage applied. Patient toleratedthe procedure well. COMPARISON: None. FINDINGS: Left kidney identified. Immediate post procedural scanning demonstrated noperinephric hematoma. COMPLICATION: No. IMPRESSION: Successful non-target ultrasound guided left eagle kidney biopsy CRITICAL RESULT: No. COMMUNICATION: Per this written report. Drafted by Cristel Page on 10/04/2025 12:54 PM Final report signed by Cristel Page on 10/04/2025 12:55 PM us Cristel Page MD IMG US MANPREET [facility]ALL Final Result * Surgical Pathology Exam (10/04/2025 9:11 AM EST) Case Report Surgical Pathology Case: [id number] Authorizing Provider: Cristel Page Collected: 10/04/2025 09 MD Carson Ordering Location: [facility] H Inpatient Received: 10/04/2025924 Pathologist: Fern Benites MD Specimen: Kidney, Left 10/23/2025 2:47 PM EST [facility] Correction History This final report incorporates the electron microscopy study. 10/23/2025 2:47 PM EST [facility] Comment:These results have b een appended to a previously final verified report. Final Diagnosis A. KIDNEY, CAPITAN GRANDE BAND, CORE NEEDLE BIOPSY: - ACUTE TUBULOINTERSTITIAL NEPHRITIS WITH TREATMENT EFFECT. - ACUTE TUBULAR NECROSIS. - PARENCHYMAL CHRONICITY CHANGES: GLOBAL GLOMERULAR SCLEROSIS INVOLVING ONE OUT OF EIGHT GLOMERULI (1/8, 25%), MODERATE TO SEVERE INTERSTITIAL EDEMA AND FIBROSIS, MILD TO MODERATE CORTICAL TUBULAR ATROPHY, AND MODERATE TO SEVERE ARTERIAL FIBROUS INTIMAL THICKENING. - SEE COMMENT AND MICROSCOPIC DESCRIPTION. 10/23/2025 2:47 PM EST [facility] Amendment electronically signed by Fern Benites [...] by Dr. Benites. 10/23/2025 2:47 PM EST [facility] Comment:Corrected result: Pr eviously reported as [...] the renal function. 10/23/2025 2:47 PM EST [facility] Microscopic Description Five H&E, two PAS, [...] glomerular basement membranes and tubular basement membranes. [place]: Negative staining of the glomeruli and renal [...] organized substructure are identified. 10/23/2025 2:47 PM EST [facility] Comment:Corrected result: Pr eviously reported as [...] tissue for electron microscopy is sent to [facility] for processing and photographing. Cold Time: 9:11 10/23/2025 2:47 PM EST [facility] Note: A resident was involved in the service. I attest I examined the relevant preparations for the specimens and confirmed the diagnosis or interpretation. 10/23/2025 2:47 PM EST [facility] Tissue Left kidney structure / Unknown Non-blood Collection / Unknown 10/04/2025 9:11 AM EST 10/04/2025 9:25 AM EST us Cristel Page MD LAB PATHOLOG Y ORDERABLES Edited Result - Final Performing Organization Address City/[facility]/ZIP Co de Phone Number [facility] [address] [place] [address] * (ABNORMAL) Phosphorus, Plasma (10/04/2025 5:49 AM EST) Only the most recent of19 resultswithin the time period is included. Phosphorus, Plasma 5.1(H) 2.5 - 4.5 mg/dL 10/04/2025 6:46 AM EST [facility] Blood Venous blood specimen / Unknown Venipuncture / Unknown 10/04/2025 5:49 AM EST 10/04/2025 6:16 AM EST us Sue Malcolm MD LAB BLOOD ORDERABLES Final Res ult Performing Organization Address [facility] Co de Phone Number [facility] [address] [place] [address] * Magnesium, Plasma (10/04/2025 5:49 AM EST) Only the most recent of19 resultswithin the time period is included. Magnesium, Plasma 1.9 1.9 - 2.4 mg/dL 10/04/2025 6:46 AM EST [facility] Blood Venous blood specimen / Unknown Venipuncture / Unknown 10/04/2025 5:49 AM EST 10/04/2025 6:16 AM EST us Sue Malcolm MD LAB BLOOD ORDERABLES Final Res ult Performing Organization Address City/[facility]/ZIP Co de Phone Number [facility] [address] [place] [address] * Transfuse RBC (10/04/2025 12:16 AM EST) Only the most recent of3 resultswithin the time period is included. us Sue Malcolm MD BLOOD TRANSFUSION ORDERABLES F inal Result * Type and screen (10/03/2025 8:33 PM EST) Only the most recent of3 resultswithin the time period is included. ABO/Rh A Negative 10/03/2025 8:40 PM EST BLOOD [facility] Antibody Screen Negative 10/03/2025 8:40 PM EST [facility]LO[facility] Specimen Expiration 10/06/2025 23:59 10/03/2025 8:40 PM EST BLOOD BANK Blood Venous blood specimen / Unknown Venipuncture / Unknown 10/03/2025 8:33 PM EST 10/03/2025 8:40 PM EST us Sue Malcolm MD LAB BLOOD BANK TEST ORDERABLES Final Result Performing Organization Address [facility] de Phone Number BLOOD BANK [address] [place] [address], * Prepare Leukocyte Reduced RBC: 1 Units (10/03/2025 6:54 PM EST) Only the most recent of3 resultswithin the time period is included. Pathologist [facility] Product Code [id number] BLOO D BANK Dispense Status Transfused BLOOD BANK Blood Expiration Date [id number] BLOOD BANK Unit Number [id number] B LOOD BANK Product Blood Type 0600 BLOOD BANK Blood Type A- BLOOD BANK Crossmatch Compatible BLOOD BANK Other us Sue Malcolm MD BLOOD BANK PRODUCT ORDERABLES Final Result Performing Organization Address [facility] de Phone Number BLOOD BANK [address] [place] [address], * (ABNORMAL) Renal Function Panel, Plasma (10/03/2025 6:18 AM EST) Only the most recent of2 resultswithin the time period is included. Glucose, Plasma 115(H) 74 - 99 mg/dL 10/03/2025 6:47 AM EST [facility] BUN, Plasma 70(H) 8 - 23 mg/dL 10/03/2025 6:47 AM EST [facility] Creatinine, Plasma 7.49(H) 0.70 - 1.20 mg/dL 10/03/2025 6:47 AM EST [facility] BUN/Creatinine Ratio 9 10/03/2025 6:47 AM EST [facility] Sodium, Plasma 138 136 - 145 mmol/L 10/03/2025 6:47 AM EST [facility] Potassium, Plasma 4.5 3.6 - 4.9 mmol/L 10/03/2025 6:47 AM EST [facility] Chloride, Plasma 107 97 - 107 mmol/L 10/03/2025 6:47 AM EST [facility] CO2, Plasma 18(L) 22 - 29 mmol/L 10/03/2025 6:47 AM EST [facility] Anion Gap 13 6 - 16 mmol/L 10/03/2025 6:47 AM EST [facility] Total Calcium, Plasma 8.1(L) 8.9 - 10.2 mg/dL 10/03/2025 6:47 AM EST [facility] Phosphorus, Plasma 5.5(H) 2.5 - 4.5 mg/dL 10/03/2025 6:47 AM EST [facility] Albumin, Plasma 2.3(L) 3.5 - 5.2 g/dL 10/03/2025 6:47 AM EST [facility] eGFRcr 7.2 mL/min/1.7 3m*2 10/03/2025 6:47 AM EST [facility] Comment:Reported eGFRcr in m L/min/1.73m2 is based the CKD-EPI 2020 equation that does not use a race coefficient. Blood Venous blood specimen / Unknown Venipuncture / Unknown 10/03/2025 6:18 AM EST 10/03/2025 6:20 AM EST us Sue Malcolm MD LAB BLOOD ORDERABLES Final Res ult [facility] [address] [place] [address] * SEND SCAR MESSAGE (09/29/2025 1:46 PM EST) Only the most recent of2 resultswithin the time period is included. Urine Urine specimen obtained by clean catch procedure / Unknown Non-blood Collection / Unknown 09/29/2025 1:46 PM EST 09/29/2025 2:20 PM EST Antoine KERR LAB URINE ORDERABLES Final Res ult Performing Organization Address [facility] de Phone Number [facility] [address] [place] [address] * Urine Oliveira Panel (09/29/2025 1:46 PM EST) Only the most recent of4 resultswithin the time period is included. Extra Sent for Culture 09/29/2025 4:[address] [facility] Urine Urine specimen obtained by clean catch procedure / Unknown Non-blood Collection / Unknown 09/29/2025 1:46 PM EST 09/29/2025 2:20 PM EST Antoine KERR LAB URINE ORDERABLES Final Res ult Performing Organization Address [facility] [place] [address] * Urinalysis Microscopic Examination (09/29/2025 1:46 PM EST) Only the most recent of5 resultswithin the time period is included. Urine Urine specimen obtained by clean catch procedure / Unknown Non-blood Collection / Unknown 09/29/2025 1:46 PM EST 09/29/2025 1:55 PM EST Antoinepaz KERR LAB URINE ORDERABLES Final Res ult Performing Organization Address [facility] de Phone Number [facility] [address] [place] [address] * Sodium, urine, random (09/29/2025 1:46 PM EST) Only the most recent of3 resultswithin the time period is included. Sodium, Urine 71 mmol/L 09/29/2025 2:57 PM EST [facility] Urine Urine specimen obtained by clean catch procedure / Unknown Non-blood Collection / Unknown 09/29/2025 1:46 PM EST 09/29/2025 2:28 PM EST Aristides Byrd MD LAB URINE ORDERABLES Final Result Performing Organization Address [facility]/ZIP Co de Phone Number [facility] [address] [place] [address] * Creatinine, urine, random (09/29/2025 1:46 PM EST) Creatinine, Urine 84 mg/dL 09/29/2025 2:57 PM EST [facility] Urine Urine specimen obtained by clean catch procedure / Unknown Non-blood Collection / Unknown 09/29/2025 1:46 PM EST 09/29/2025 2:28 PM EST Aristides Byrd MD LAB URINE ORDERABLES Final Result Performing Organization Address City/[facility] de Phone Number [facility] [address] [place] [address] * (ABNORMAL) Urinalysis with reflex microscopic (Culture NOT Included) (09/29/2025 1:46 PM EST) Only the most recent of5 resultswithin the time period is included. Color, Urine Yellow LAB URINALYSIS - AUTOMATED METHOD 09/29/2025 2:50 PM EST [facility] Clarity, Urine Cloudy LAB URINALYSIS - AUTOMATED METHOD 09/29/2025 2:50 PM EST [facility] Spec [place], Urine 1.010 1.005 - 1.030 LAB URINALYSIS - AUTOMATED METHOD 09/29/2025 2:50 PM EST [facility] pH, Urine 6.5 5.0 - 8.0 LAB URINALYSIS - AUTOMATED METHOD 09/29/2025 2:50 PM EST [facility] Protein, Urine 30(A) Negative mg/dL LAB URINALYSIS - AUTOMATED METHOD 09/29/2025 2:50 PM EST [facility] Glucose, Urine Negative Negative mg/dL LAB URINALYSIS - AUTOMATED METHOD 09/29/2025 2:50 PM EST [facility] Ketones, Urine Negative Negative mg/dL LAB URINALYSIS - AUTOMATED METHOD 09/29/2025 2:50 PM [facility] Blood, Urine Small(A) Negative LAB URINALYSIS - AUTOMATED METHOD 09/29/2025 2:50 PM [facility] Bilirubin, Urine Negative Negative LAB URINALYSIS - AUTOMATED METHOD 09/29/2025 2:50 PM [facility] Urobilinogen, Urine 0.2 0.2 to 1.0 mg/dL LAB URINALYSIS - AUTOMATED METHOD 09/29/2025 2:50 PM [facility] Leukocytes, Urine Large(A) Negative LAB URINALYSIS - AUTOMATED METHOD 09/29/2025 2:50 PM [facility] Nitrite, Urine Positive(A) Negative LAB URINALYSIS - AUTOMATED METHOD 09/29/2025 2:50 PM [facility] RBC, Urine 2 0 to 3 /HPF LAB URINALYSIS - AUTOMATED METHOD 09/29/2025 2:50 PM [facility] Comment:This result was prev iously suppressed from the chart. WBC, Urine >50(A) 0 to 5 /HPF LAB URINALYSIS - AUTOMATED METHOD 09/29/2025 2:50 PM [facility] Comment:This result was prev iously suppressed from the chart. Squamous Epithelial Cells 0 - 2 0 to 5 /HPF LAB URINALYSIS - AUTOMATED METHOD 09/29/2025 2:50 PM [facility] Comment:This result was prev iously suppressed from the chart. Hyaline Casts 0 - 2 0 to 5 /LPF LAB URINALYSIS - AUTOMATED METHOD 09/29/2025 2:50 PM [facility] Comment:This result was prev iously suppressed from the chart. Bacteria, Urine Present Negative LAB URINALYSIS - AUTOMATED METHOD 09/29/2025 2:50 PM [facility] Comment:This result was prev iously suppressed from the chart. WBC Clumps Present Absent 09/29/2025 2:50 PM [facility] Comment:This result was prev iously suppressed from the chart. Urine Urine specimen obtained by clean catch procedure / Unknown Non-blood Collection / Unknown 09/29/2025 1:46 PM EST 09/29/2025 1:55 PM EST Narrative [facility] - 09/29/2025 2:50 PM EST Performed by manual method us Antoine KERR LAB URINE ORDERABLES Final Res ult [facility] [address] [place] [address] * (ABNORMAL) Urine Culture (09/29/2025 1:46 PM EST) Only the most recent of2 resultswithin the time period is included. Culture >=100,000 CFU/mL Pseudomonas aeruginosa(A) JULIO 10/02/2025 11:14 AM EST [facility] Comment: This isolate has been identified using the FDA Approved MALDI Twiceyper CA System This is a corrected result. Previous organism was Non-Fermenting Gram Negative Stew on 10/01/2025 at 1005 EST. Culture >=100,000 CFU/mL - Biotype 2 Pseudomonas aeruginosa(A) JULIO 10/02/2025 11:14 AM EST [facility] Comment: This isolate has been identified using the FDA Approved MALDI Twiceyper CA System The organism value for this [...] order an add on susceptibility for etest us Antoine KERR LAB MICROBIOLOGY - GENERAL ORD ERABLES Final Result [facility] [address] [place] [address] * US Renal Complete (09/29/2025 1:09 PM EST) Only the most recent of2 resultswithin the time period is included. Anatomical Region Laterality Modality Kidney Ultrasound Impressions [...] Briseyda Rachel MD on 09/29/2025 1:28 PM Aristides Byrd MD IMG US PROCEDURES Final Res ult * (ABNORMAL) Iron & Total Iron Binding Capacity, Plasma (Includes Transferrin) (09/29/2025 12:32 PM EST) Iron, Plasma 23(L) 50 - 170 ug/dL 09/29/2025 5:26 PM EST [facility] Transferrin, Plasma 127(L) 200 - 360 mg/dL 09/29/2025 5:26 PM EST [facility] Total Iron Binding Capacity, Plasma 159(L) 240 - 450 ug/mL 09/29/2025 5:26 PM EST [facility] Transferrin Saturation 14 14 - 50 % 09/29/2025 5:26 PM EST [facility] Blood Venous blood specimen / Unknown Venipuncture / Unknown 09/29/2025 12:32 PM EST 09/29/2025 12:37 PM EST us Margarito Murrell MD LAB BLOOD ORDERABLES Final Re sult [facility] [address] [place] [address] * PET/CT FDG Skull Base To Mid Thigh (09/28/2025 8:51 AM EST) Only the most recent of2 resultswithin the time period is included. Anatomical Region Laterality Modality Positron Emissio n [...] appearance compared with the prior exam. New krdfs-eghfmqd-ywhx-left perinephric and periureteral fat stranding is present, [...] raised. PET/CT scanner: Nicol 550. PET/CT acquisition: Eitoef-zm-ilk-thighs. Standardized uptake value (SUV): Corrected for body weight only. CT: Low-dose, eut-gckvwh-zjjd, without intravenous contrast. TOTAL DLP (Dose Length [...] Not applicable. Positioning: Arms raised. PET/CT scanner: [facility] 550. PET/CT acquisition: Mhfhuy-xp-doe-thighs. Standardized uptake value (SUV): Corrected for body weight only. CT: Low-dose, qum-zbvbbp-cdkj, without intravenous contrast. TOTAL DLP (Dose Length [...] edematous appearancecompared with the prior exam. New wsycy-vxezqpt-jvoo-left perinephric andperiureteral fat stranding is present, which [...] IMG NM PROCEDURES Final R esult * US Guided Fine Needle Aspiration (09/22/2025 [...] J Am Leti Radiol 2017;14:587-595 AVAILABLE AT: [email or web address] Drafted by Katie Mitchell DO on 09/22/2025 [...] Ref. J Am Leti Radiol 2017;14:587-595 AVAILABLE AT:[email or web address] Drafted by Katie Mitchell DO on 09/22/2025 10:10 AM Final report signed by Katie Mitchell DO on 09/22/2025 10:17 AM us Salome Arrieta MD IMG US PROCEDURES Final Result * US Head Neck Soft Tissue (09/22/2025 [...] J Am Leti Radiol 2017;14:587-595 AVAILABLE AT: [email or web address] Drafted by Katie Mitchell DO on 09/22/2025 [...] Ref. J Am Leti Radiol 2017;14:587-595 AVAILABLE AT:[email or web address] Drafted by Katie Mitchell DO on 09/22/2025 [...] AND FLUID O RD Final Result BRI CASILLAS (JEAN MARIE) [address] [place] [address], [place] * Fine needle aspiration (09/22/2025 9:30 AM EST) Case Report Cytology Case: [id number] Authorizing Provider: Katie Mitchell DO Collected: 09/22/2025 0930 Ordering Location: [facility] A Radiology Received: 09/22/2025 1015 Pathologist: Silvia Daniels MD Specimen: Thyroid, Left, Fine Needle Aspiration, LEFT THYROID ULTRASOUND GUIDED FINE NEEDLE ASPIRATION 09/23/2025 2:35 PM EST [facility] Final Diagnosis A. LEFT THYROID, ULTRASOUND GUIDED FINE NEEDLE ASPIRATION: - ATYPIA OF UNDETERMINED SIGNIFICANCE - NUCLEAR (BETHESDA CATEGORY III) 09/23/2025 2:35 PM EST [facility] at 1435 EST Comment The aspirate demonstrates predominantly blood and macrophages, but rare follicular groups are present with nuclear enlargement. Afirma molecular testing is pending, and correlation with the results is suggested. 09/23/2025 2:35 PM EST [facility] Immediate Evaluation FNA performed by: Dr. Mitchell Number of sticks: 6 Immediate evaluation performed by: Dr. Daniels / [facility] Evaluation episode # 1-4: Scant follicular cells, adequate. Two passes for Afirma The immediate evaluation in this case was performed via telecytology by the attending physician listed above. 09/23/2025 2:35 PM EST [facility] Clinical History Left thyroid nodule with FDG uptake 09/23/2025 2:35 PM EST [facility] Procedure Type US 09/23/2025 2:35 PM EST [facility] Size/Descripti on of Lesion 4cm Left Thyroid 09/23/2025 2:35 PM EST [facility] Cancer History Yes 09/23/2025 2:35 PM EST [facility] Comment:Esophageal cancer Gross Description A. LEFT THYROID ULTRASOUND GUIDED FINE NEEDLE ASPIRATION 3 ml's bloody Needle rinse fluid processed as ThinPrep for complete evaluation of sample. Received 4 diff quick slides and 4 pap slides. Afirma collected. 09/23/2025 2:35 PM EST [facility] Note: A resident was involved in the service. I attest I examined the relevant preparations for the specimens and confirmed the diagnosis or interpretation. 09/23/2025 2:35 PM EST [facility] Clinical Information E07.9 - Thyroid mass [ICD-10-CM] 09/23/2025 2:35 PM EST [facility] Fine Needle Aspirate Thyroid structure / Unknown 09/22/2025 9:30 AM EST 09/22/2025 10:15 AM EST us Katie Mitchell DO LAB CYTOLOGY ORDERABLES Final Result Performing Organization Address City/[facility] Co de Phone Number [facility] [address] [place] [address] * (ABNORMAL) N-Terminal Probnp (09/21/2025 9:19 AM EST) Only the most recent of2 resultswithin the time period is included. N-Terminal, PROBNP, Plasma 1,497(H) 0 - 899 pg/mL 09/21/2025 11:59 AM EST [facility] Blood Venous blood specimen / Unknown Venipuncture / Unknown 09/21/2025 9:19 AM EST 09/21/2025 9:19 AM EST us Jan Quiroz MD LAB BLOOD ORDERABLES Final Res ult Performing Organization Address City/[facility]/ZIP Co de Phone Number [facility] [address] [place] [address] * (ABNORMAL) Troponin T, High Sensitivity, Cardiac Risk Assessment (09/21/2025 9:19 AM EST) Troponin T, High Sensitivity, 0 Hour 40(H) <19 ng/L 09/21/2025 11:59 AM EST [facility] Blood Venous blood specimen / Unknown Venipuncture / Unknown 09/21/2025 9:19 AM EST 09/21/2025 9:19 AM EST us Jan A Quiroz MD LAB BLOOD ORDERABLES Final Res ult [facility] [address] [place] [address] * (ABNORMAL) Prostate Specific Antigen, Diagnostic, Serum (09/13/2025 3:51 PM EST) Pathologist [facility] PSA, Diagnostic, Serum 8.40(H) 0.00 - 6.50 ng/mL 09/13/2025 5:[address] [facility] Blood Blood sample taken from central line / Unknown (Central Line) Existing Catheter / Unknown 09/13/2025 3:51 PM EST 09/13/2025 4:32 PM EST Narrative [facility] - 09/13/2025 5:30 PM EST Performed by Scar electrochemiluminescent immunoassay which is standardized against the PSA [place] Reference Standard (WHO 96/670). Results obtained with different test methods or kits cannot be used interchangeably. Salome Arrieta MD LAB BLOOD ORDERABLES Final Resu lt Performing Organization Address City/[facility]/ZIP Co de Phone Number [facility] [address] [place] [address] * TSH reflex FT4 (09/13/2025 12:51 PM EST) Only the most recent of2 resultswithin the time period is included. [facility] Thyroid Stimulating Hormone, Plasma 1.25 0.40 - 4.20 uIU/mL 09/13/2025 2:[address] [facility] Blood Venous blood specimen / Unknown (Central Line) Existing Catheter / Unknown 09/13/2025 12:51 PM EST 09/13/2025 1:22 PM EST Salome Arrieta MD LAB BLOOD ORDERABLES Final Resu lt Performing Organization Address City/[facility]/ZIP Co de Phone Number [facility] [address] [place] [address] * (ABNORMAL) Hemoglobin, Blood (09/09/2025 12:09 PM EDT) Only the most recent of7 resultswithin the time period is included. Pathologist [facility] HGB 7.9(L) 13.7 - 17.5 g/dL LAB HEMATOLOGY METHOD 09/09/2025 12:33 PM EDT [facility] Blood Venous blood specimen / Unknown Venipuncture / Unknown 09/09/2025 12:09 PM EDT 09/09/2025 12:24 PM EDT Joyce Lucio MD LAB BLOOD ORDERABLES Final Re sult Performing Organization Address [facility]/ZIP Co de Phone Number [facility] [address] [place] [address] * (ABNORMAL) Ionized calcium repeated at next scheduled lab check after replacement completed (09/08/2025 11:55 PM EDT) Ionized Calcium, Whole Blood 4.4(L) 4.6 - 5.1 mg/dL LAB HEMATOLOGY METHOD 09/09/2025 12:02 AM EDT [facility] Blood Venous blood specimen / Unknown Venipuncture / Unknown 09/08/2025 11:55 PM EDT 09/09/2025 12:01 AM EDT Joyce Lucio MD LAB BLOOD ORDERABLES Final Re sult Performing Organization Address [facility] de Phone Number [facility] [address] [place] [address] * Potassium level repeated at next scheduled lab check after replacement completed (09/08/2025 11:55 PM EDT) Potassium, Plasma 4.1 3.6 - 4.9 mmol/L 09/09/2025 12:25 AM EDT [facility] Blood Venous blood specimen / Unknown Venipuncture / Unknown 09/08/2025 11:55 PM EDT 09/09/2025 12:00 AM EDT Joyce Lucio MD LAB BLOOD ORDERABLES Final Re sult Performing Organization Address City/[facility]/ZIP Co de Phone Number [facility] [address] [place] [address] * (ABNORMAL) Sedimentation Rate, Automated (09/07/2025 11:58 PM EDT) Only the most recent of8 resultswithin the time period is included. [facility] Sedimentation Rate 29(H) <20 mm/hr 2024 1:20 AM EDT [facility] Blood Venous blood specimen / Unknown Venipuncture / Unknown 09/07/2025 11:58 PM EDT 09/08/2025 12:04 AM EDT [facility] Bouchra Lucio MD LAB BLOOD ORDERABLES Final Re sult Performing Organization Address [facility] Co de Phone Number [facility] [address] [place] [address] * (ABNORMAL) C-reactive protein (09/07/2025 4:10 AM EDT) Only the most recent of10 resultswithin the time period is included. [facility] CRP, Plasma 23.8(H) <=8.0 mg/L 09/07/2025 2:22 PM EDT [facility] Blood Venous blood specimen / Unknown Venipuncture / Unknown 09/07/2025 4:10 AM EDT 09/07/2025 4:18 AM EDT Narrative [facility] - 09/07/2025 2:22 PM EDT This CRP test is appropriate for assessment of infection, systemic inflammation and/or tissue injury. To assess cardiovascular disease risk order high sensitivity CRP (CRPH). Joyce Lucio MD LAB BLOOD ORDERABLES Final Re sult Performing Organization Address City/[facility]/ZIP Co de Phone Number [facility] [address] [place] [address] * (ABNORMAL) Caris ID Cancer Seek Hybrid??? + IHCs and Other Tests by Tumor Type (09/05/2025 8:12 PM EDT) Pathologist [facility] CAR Genomic Loss of Heterozygosity - [place] Low 2% 09/05/2025 8:12 PM EDT [employer] CARN(i)² Microsatellite Instability - [place] High 09/05/2025 8:12 PM EDT [employer] Tumor Mutational [place] - [place] High 40 per Mb 09/05/2025 8:12 PM EDT [employer] HLA-A - [place] -,A*02:01 09/05/2025 8:12 PM EDT [employer] HLA-B - [place] -,B*44:02 09/05/2025 8:12 PM EDT [employer] HLA-C - [place] -,C*05:01 09/05/2025 8:12 PM EDT [employer] Tissue specimen (specimen) 08/30/2025 10:40 PM EDT Narrative This result has genomic variants that were not included in this document. us Jatinder Sims MD LAB MOL DX NO SOURCE Final Resul t [employer] [address] [place] [address], * Morphology (09/04/2025 4:50 AM EDT) Only the most recent of7 resultswithin the time period is included. Polychromasia Slight LAB HEMATOLOGY METHOD 09/04/2025 6:06 AM EDT [facility] Echinocytes Present LAB HEMATOLOGY METHOD 09/04/2025 6:06 AM EDT [facility] RBC Morphology Slide Reviewed LAB HEMATOLOGY METHOD 09/04/2025 6:06 AM EDT [facility] Platelet Estimate Platelet smear estimate consistent with automated count LAB HEMATOLOGY METHOD 09/04/2025 6:06 AM EDT [facility] Blood Blood sample taken from central line / Unknown Venipuncture / Unknown 09/04/2025 4:50 AM EDT 09/04/2025 5:15 AM EDT Sheyla Malagon MD LAB BLOOD ORDERABLES Final Resu lt [facility] [address] [place] [address] * (ABNORMAL) Manual Differential (09/04/2025 4:50 AM EDT) Only the most recent of7 resultswithin the time period is included. Blasts % 0 % LAB HEMATOLOGY METHOD 09/04/2025 6:06 AM EDT [facility] Promyelocytes % 0 % LAB HEMATOLOGY METHOD 09/04/2025 6:06 AM EDT [facility] Myelocytes % 0 % LAB HEMATOLOGY METHOD 09/04/2025 6:06 AM EDT [facility] Metamyelocytes % 2 % LAB HEMATOLOGY METHOD 09/04/2025 6:06 AM EDT [facility] Neutrophils % 91 % LAB HEMATOLOGY METHOD 09/04/2025 6:06 AM EDT [facility] Lymphocytes % 5 % LAB HEMATOLOGY METHOD 09/04/2025 6:06 AM EDT [facility] Reactive Lymphocytes % 0 % LAB HEMATOLOGY METHOD 09/04/2025 6:06 AM EDT [facility] Monocytes % 1 % LAB HEMATOLOGY METHOD 09/04/2025 6:06 AM EDT [facility] Eosinophils % 0 % LAB HEMATOLOGY METHOD 09/04/2025 6:06 AM EDT [facility] Basophils % 1 % LAB HEMATOLOGY METHOD 09/04/2025 6:06 AM EDT [facility] Blasts Absolute 0.00 10*3/UL LAB HEMATOLOGY METHOD 09/04/2025 6:06 AM EDT [facility] Promyelocytes Absolute 0.00 10*3/uL LAB HEMATOLOGY METHOD 09/04/2025 6:06 AM EDT [facility] Myelocytes Absolute 0.00 10*3/uL LAB HEMATOLOGY METHOD 09/04/2025 6:06 AM EDT [facility] Metamyelocytes Absolute 0.20 10*3/uL LAB HEMATOLOGY METHOD 09/04/2025 6:06 AM EDT [facility] Neutrophils Absolute 9.20(H) 1.60 - 6.10 10*3/uL LAB HEMATOLOGY METHOD 09/04/2025 6:06 AM EDT [facility] Lymphocytes Absolute 0.51(L) 1.20 - 3.90 10*3/uL LAB HEMATOLOGY METHOD 09/04/2025 6:06 AM EDT [facility] Reactive Lymphocytes Absolute 0.00 10*3/uL LAB HEMATOLOGY METHOD 09/04/2025 6:06 AM EDT [facility] Monocytes Absolute 0.10(L) 0.30 - 0.90 10*3/uL LAB HEMATOLOGY METHOD 09/04/2025 6:06 AM EDT [facility] Eosinophils Absolute 0.00 0.00 - 0.50 10*3/uL LAB HEMATOLOGY METHOD 09/04/2025 6:06 AM EDT [facility] Basophils Absolute 0.10 0.00 - 0.10 10*3/uL LAB HEMATOLOGY METHOD 09/04/2025 6:06 AM EDT [facility] Blood Blood sample taken from central line / Unknown Venipuncture / Unknown 09/04/2025 4:50 AM EDT 09/04/2025 5:15 AM EDT us Sheyla Malagon MD LAB BLOOD ORDERABLES Final Resu lt [facility] [address] [place] [address] * (ABNORMAL) Procalcitonin, Plasma (09/03/2025 4:23 AM EDT) Only the most recent of7 resultswithin the time period is included. Procalcitonin, Plasma 0.40(H) <0.09 ng/mL 09/03/2025 5:17 AM EDT [facility] Blood Blood sample taken from central line / Unknown Venipuncture / Unknown 09/03/2025 4:23 AM EDT 09/03/2025 4:41 AM EDT Narrative [facility] - 09/03/2025 5:17 AM EDT Procalcitonin [...] predict 28 day mortality risk. Please consult [email or web address] for more information. Test performed at [facility]. us Jadon Rangel MD LAB BLOOD ORDERABLES Final Res ult Performing Organization Address [facility] Phone Number [facility] [address] [place] [address] * (ABNORMAL) Hepatic Function Panel (09/03/2025 4:23 AM EDT) Only the most recent of7 resultswithin the time period is included. Direct Bilirubin, Plasma <0.2 <=0.3 mg/dL 09/03/2025 5:18 AM EDT [facility] Alkaline Phosphatase, Plasma 65 40 - 115 U/L 09/03/2025 5:18 AM EDT [facility] Total Bilirubin, Plasma 0.3 0.2 - 1.1 mg/dL 09/03/2025 5:18 AM EDT [facility] Albumin, Plasma 1.8(L) 3.5 - 5.2 g/dL 09/03/2025 5:18 AM EDT [facility] Total Protein 4.1(L) 6.3 - 7.9 g/dL 09/03/2025 5:18 AM EDT [facility] ALT, Plasma 22 10 - 50 U/L 09/03/2025 5:18 AM EDT [facility] AST, Plasma 29 10 - 50 U/L 09/03/2025 5:18 AM EDT [facility] Blood Blood sample taken from central line / Unknown Venipuncture / Unknown 09/03/2025 4:23 AM EDT 09/03/2025 4:41 AM EDT us Jadon Rangel MD LAB BLOOD ORDERABLES Final Res ult Performing Organization Address [facility] Co de Phone Number [facility] [address] [place] [address] * Cortisol (09/01/2025 8:57 AM EDT) Cortisol 17.00 Before 10am: 3.7 - 19.4. After 5pm: 2.9 - 17.3 ug/dL 09/01/2025 10:16 AM EDT [facility] Comment:Testing performed on [employer], standardized against [employer] Reference Standard concentration values assigned by LC-MS/MS and verified by BCR 192 and BCR 193 certified reference materials. Blood Venous blood specimen / Unknown Venipuncture / Unknown 09/01/2025 8:57 AM EDT 09/01/2025 9:08 AM EDT us Sheyla Malagon MD LAB REF LAB BLOOD AND FLUID ORD Final Result Performing Organization Address City/[facility]/[place] [address] * (ABNORMAL) Hemoglobin and Hematocrit, Blood (09/01/2025 4:50 AM EDT) Pathologist [facility] HGB 7.7(L) 13.7 - 17.5 g/dL LAB HEMATOLOGY METHOD 09/01/2025 5:09 AM EDT [facility] HCT 22.8(L) 40.0 - 51.0 % LAB HEMATOLOGY METHOD 09/01/2025 5:09 AM EDT [facility] Blood Venous blood specimen / Unknown Venipuncture / Unknown 09/01/2025 4:50 AM EDT 09/01/2025 4:59 AM EDT us Shannon Burris MD LAB BLOOD ORDERABLES Final Resu lt [facility] [address] [place] [address] * Thyroid Stimulating Hormone, Plasma (09/01/2025 4:05 AM EDT) Pathologist [facility] Thyroid Stimulating Hormone, Plasma 1.14 0.40 - 4.20 uIU/mL 09/01/2025 5:03 AM EDT [facility] Blood Venous blood specimen / Unknown Venipuncture / Unknown 09/01/2025 4:05 AM EDT 09/01/2025 4:24 AM EDT us Sheyla Malagon MD LAB BLOOD ORDERABLES Final Resu lt Performing Organization Address City/[facility]/ZIP Co de Phone Number [facility] [address] [place] [address] * Osmolality, Urine (2025 10:38 AM EDT) Only the most recent of2 resultswithin the time period is included. Osmolality, Urine 462 50 - 1,200 mOsm/kg 2025 11:38 AM EDT [facility] Urine Urine specimen from urinary conduit / Unknown Non-blood Collection / Unknown 2025 10:38 AM EDT 2025 11:09 AM EDT us Sheyla Malagon MD LAB URINE ORDERABLES Final Resu lt Performing Organization Address City/[facility] [place] [address] * Comprehensive GI Panel by PCR (08/26/2025 8:18 PM EDT) Only the most recent of2 resultswithin the time period is included. Pathologist [facility] Campylobacter PCR Result Not Detected Not Detected 08/27/2025 11:06 AM EDT [facility] Plesiomonas shigelloides PCR Result Not Detected Not Detected 08/27/2025 11:06 AM EDT [facility] Salmonella PCR Result Not Detected Not Detected 08/27/2025 11:06 AM EDT [facility] Vibrio species PCR Result Not Detected Not Detected 08/27/2025 11:06 AM EDT [facility] Vibrio cholerae PCR Result Not Detected Not Detected 08/27/2025 11:06 AM EDT [facility] Yersinia enterocolitica PCR Result Not Detected Not Detected 08/27/2025 11:06 AM EDT [facility] Enteroaggregative E. coli (EAEC) PCR Result Not Detected Not Detected 08/27/2025 11:06 AM EDT [facility] Enteropathogenic E. coli (EPEC) PCR Result Not Detected Not Detected 08/27/2025 11:06 AM EDT [facility] Enterotoxigenic E. coli (ETEC) lt/st PCR Result Not Detected Not Detected 08/27/2025 11:06 AM EDT [facility] Shiga-like Toxin-Producing E.coli (STEC) stx1/stx2 PCR Resu Not Detected Not Detected 08/27/2025 11:06 AM EDT [facility] E coli 0157 PCR Result Not Detected Not Detected 08/27/2025 11:06 AM EDT [facility] Shigella/Enteroinvas jenaro E. coli (EIEC) PCR Result Not Detected Not Detected 08/27/2025 11:06 AM EDT [facility] Cryptosporidium PCR Result Not Detected Not Detected 08/27/2025 11:06 AM EDT [facility] Cyclospora cayetanensis PCR Result Not Detected Not Detected 08/27/2025 11:06 AM EDT [facility] Entamoeba histolytica PCR Result Not Detected Not Detected 08/27/2025 11:06 AM EDT [facility] Giardia duodenalis (aka Giardia lamblia) PCR Result Not Detected Not Detected 08/27/2025 11:06 AM EDT [facility] Adenovirus F 40/41 PCR Result Not Detected Not Detected 08/27/2025 11:06 AM EDT [facility] Astrovirus PCR Result Not Detected Not Detected 08/27/2025 11:06 AM EDT [facility] Norovirus GI/GII PCR Result Not Detected Not Detected 08/27/2025 11:06 AM EDT [facility] Rotavirus A PCR Result Not Detected Not Detected 08/27/2025 11:06 AM EDT [facility] Sapovirus PCR Result Not Detected Not Detected 08/27/2025 11:06 AM EDT [facility] Stool Rectum structure / Unknown Non-blood Collection / Unknown 08/26/2025 8:18 PM EDT 08/26/2025 8:[address] [facility] - 08/27/2025 11:06 AM EDT This [...] difficile by PCR assay if clinically indicated. Celine Chan MD LAB MICROBIOLOGY - GENERAL O RDERABLES Final Result Performing Organization Address [facility]/[place] [address] * (ABNORMAL) Clostridiodes (Clostridium) difficile PCR (08/26/2025 8:18 PM EDT) Only the most recent of2 resultswithin the time period is included. C difficile PCR toxin B gene DNA Result Detected, Reflex GDH/Toxin antigen test pending, see CDEIA for final result.(A) Not Detected 08/27/2025 1:42 PM EDT [facility] Comment:Reflex GDH/Toxin ant igen test pending, see CDEIA for final result. Stool Rectum structure / Unknown Non-blood Collection / Unknown 08/26/2025 8:18 PM EDT 08/26/2025 8:36 PM EDT Narrative [facility] - 08/27/2025 1:42 PM EDT This test is FDA approved for use with liquid stool specimens. This test is used for clinical purposes. It should not be regarded as investigational or for research. This laboratory is certified under the Clinical Laboratory Improvement Amendments of 1988 (CLIA-88) as qualified to perform high complexity clinical laboratory testing. us Jadon Rangel MD LAB MICROBIOLOGY - GENERAL ORD ERABLES Final Result Performing Organization Address City/[facility]/[place] [address] * Ova and Parasite Exam, Fecal (08/26/2025 8:18 PM EDT) Ova and Parasite, Fecal Negative Negative 2025 7:05 PM EDT [facility] ([place]) Stool Rectum structure / Unknown Non-blood Collection / Unknown 08/26/2025 8:18 PM EDT 08/26/2025 8:25 PM EDT Narrative [facility]) - 2025 7:05 PM EDT Clinical Interpretation: [...] Microsporidia. For additional test information refer to [employer] consult, [email or web address] Performed By: [facility] [address] [place] [address] Healthcare Manager: Kirk Camara MD, PhD CLIA Number: [id number] Celine Chan MD LAB MICROBIOLOGY - GENERAL O RDERABLES Final Result [facility]) [address] [place] [address] * (ABNORMAL) Clostridium difficile EIA (08/26/2025 8:18 PM EDT) Only the most recent of2 resultswithin the time period is included. C difficile EIA Interpretation C. difficile infection likely.(A) Negative 08/29/2025 7:10 AM EDT [facility] Toxin Result Positive(A) Negative 08/29/2025 7:10 AM EDT [facility] GDH Result Positive Negative 08/29/2025 7:10 AM EDT [facility] Stool Rectum structure / Unknown Non-blood Collection / Unknown 08/26/2025 8:18 PM EDT 08/26/2025 8:36 PM EDT Narrative [facility] - 08/29/2025 7:10 AM EDT This toxin/GDH assay was reflexed from a positive C. difficile PCR result. Jadon Rangel MD LAB MICROBIOLOGY - GENERAL ORD ERABLES Final Result Performing Organization Address [facility] Co de Phone Number [facility] [address] [place] [address] * (ABNORMAL) Troponin T, High Sensitivity, 2 Hour, Plasma (08/26/2025 5:11 PM EDT) Only the most recent of2 resultswithin the time period is included. Troponin T, High Sensitivity, 2 Hour 37(H) <19 ng/L 08/26/2025 5:39 PM EDT [facility] Troponin Delta 2 <10 ng/L 08/26/2025 5:39 PM EDT [facility] Troponin Delta Interpretation Not Significant 08/26/2025 5:39 PM EDT [facility] Comment:Not Significant. No acute change in troponin observed between the baseline and 2 hour samples. Blood Venous blood specimen / Unknown Venipuncture / Unknown 08/26/2025 5:11 PM EDT 08/26/2025 5:15 PM EDT Dimitrios Napier MD LAB BLOOD ORDERABLES Final Resul t Performing Organization Address [facility] Co de Phone Number [facility] [address] [place] [address] * Blood Culture (Aerobic/Anaerobet Set) (08/26/2025 5:11 PM EDT) Only the most recent of3 resultswithin the time period is included. Culture No growth at day 5 2025 6:01 PM EDT [facility] Blood Structure of right forearm / Unknown Venipuncture / Unknown 08/26/2025 5:11 PM EDT 08/26/2025 5:30 PM EDT Narrative [facility] - 2025 6:01 PM EDT Low blood volume submitted, results may be compromised Dimitrios Napier MD LAB MICROBIOLOGY - GENERAL ORDER RANGEL Final Result [facility] [address] [place] [address] * XR Chest 2 Views (08/26/2025 4:57 [...] Taco Marino MD on 08/26/2025 5:52 PM us Dimitrios Napier MD IMG XR PROCEDURES Final Result * EKG now - STAT (adult) (08/26/2025 1:45 PM EDT) EKG DIAGNOSIS CLASS Abnormal MUSE ECG Ventricular Rate 105 BPM MUSE ECG QRSD Interval 80 ms MUSE ECG QT Interval 326 ms MUSE ECG QTC Interval 430 ms MUSE ECG R [place] 51 degrees MUSE ECG T Wave [place] -16 degrees MUSE ECG Diagnosis Atrial fibrillation [...] 1:45 PM EDT 08/27/2025 9:07 PM EDT us Dimitrios Napier MD ECG ORDERABLES Final Result MUSE ECG * Gold Top (08/26/2025 1:35 PM EDT) Only the most recent of2 resultswithin the time period is included. Extra Hold for add-ons 08/26/2025 4:01 PM EDT [facility] Comment:Auto resulted. Blood Venous blood specimen / Unknown 08/26/2025 1:35 PM EDT 08/26/2025 1:44 PM EDT us Dimitrios Napier MD LAB BLOOD ORDERABLES Final Resul t [facility] [address] [place] [place] [address] * (ABNORMAL) Troponin T, High Sensitivity, 0 Hour Plasma, Reflex to 2 Hour (08/26/2025 1:35 PM EDT) Only the most recent of2 resultswithin the time period is included. Troponin T, High Sensitivity, 0 Hour 39(H) <19 ng/L 08/26/2025 2:07 PM EDT [facility] Blood Venous blood specimen / Unknown Venipuncture / Unknown 08/26/2025 1:35 PM EDT 08/26/2025 1:41 PM EDT us Dimitrios Napier MD LAB BLOOD ORDERABLES Final Resul t Performing Organization Address City/[facility]/ZIP Co de Phone Number [facility] [address] [place] [address] * Light Blue Top (08/26/2025 1:35 PM EDT) Pathologist [facility] Extra Hold for add-ons 08/26/2025 4:01 PM EDT [facility] Comment:Auto resulted. Blood Venous blood specimen / Unknown 08/26/2025 1:35 PM EDT 08/26/2025 1:44 PM EDT Result Liliana Napier MD LAB BLOOD ORDERABLES Final Resul t Performing Organization Address [facility] Co de Phone Number [facility] [address] [place] [address] * Lactic acid, venous (08/26/2025 1:35 PM EDT) Only the most recent of2 resultswithin the time period is included. Pathologist [facility] Lactate, Venous, Whole Blood 1.7 0.5 - 2.2 mmol/L LAB HEMATOLOGY METHOD 08/26/2025 1:43 PM EDT [facility] Blood Venous blood specimen / Unknown Venipuncture / Unknown 08/26/2025 1:35 PM EDT 08/26/2025 1:41 PM EDT us Dimitrios Napier MD LAB BLOOD ORDERABLES Final Resul t Performing Organization Address City/[facility]/ZIP Co de Phone Number [facility] [address] [place] [address] * (ABNORMAL) Lipase (08/26/2025 1:35 PM EDT) Only the most recent of2 resultswithin the time period is included. Lipase, Plasma 14(L) 19 - 63 U/L 08/26/2025 2:07 PM EDT [facility] Blood Venous blood specimen / Unknown Venipuncture / Unknown 08/26/2025 1:35 PM EDT 08/26/2025 1:41 PM EDT us Dimitrios Napier MD LAB BLOOD ORDERABLES Final Resul t [facility] [address] [place] [address] * (ABNORMAL) Blood gas panel, venous (08/26/2025 1:35 PM EDT) pH, Venous 7.42 7.32 - 7.43 LAB HEMATOLOGY METHOD 08/26/2025 1:43 PM EDT [facility] pCO2, Venous 37(L) 40 - 55 mmHg LAB HEMATOLOGY METHOD 08/26/2025 1:43 PM EDT [facility] pO2, Venous 21(L) 25 - 40 mmHg LAB HEMATOLOGY METHOD 08/26/2025 1:43 PM EDT [facility] SO2, Measured, Venous 31(L) 65 - 80 % LAB HEMATOLOGY METHOD 08/26/2025 1:43 PM EDT [facility] Base Excess, Venous -0.6 -2.0 - 3.0 mmol/L LAB HEMATOLOGY METHOD 08/26/2025 1:43 PM EDT [facility] Bicarbonate, Calculated, Venous 24 22 - 26 mmol/L LAB HEMATOLOGY METHOD 08/26/2025 1:43 PM EDT [facility] Hematocrit, Whole Blood 32.0(L) 40.0 - 51.0 % LAB HEMATOLOGY METHOD 08/26/2025 1:43 PM EDT [facility] [facility] Sodium, Whole Blood 129(L) 136 - 145 mmol/L LAB HEMATOLOGY METHOD 08/26/2025 1:43 PM EDT [facility] Potassium, Whole Blood 3.5(L) 3.6 - 4.9 mmol/L LAB HEMATOLOGY METHOD 08/26/2025 1:43 PM EDT [facility] Chloride, Whole Blood 97 97 - 107 mmol/L LAB HEMATOLOGY METHOD 08/26/2025 1:43 PM EDT [facility] Glucose, Whole Blood 103(H) 74 - 99 mg/dL LAB HEMATOLOGY METHOD 08/26/2025 1:43 PM EDT [facility] Lactate, Venous, Whole Blood 1.7 0.5 - 2.2 mmol/L LAB HEMATOLOGY METHOD 08/26/2025 1:43 PM EDT [facility] Ionized Calcium, Whole Blood 4.6 4.6 - 5.1 mg/dL LAB HEMATOLOGY METHOD 08/26/2025 1:43 PM EDT [facility] Blood Venous blood specimen / Unknown Venipuncture / Unknown 08/26/2025 1:35 PM EDT 08/26/2025 1:41 PM EDT Dimitrios Napier MD LAB BLOOD ORDERABLES Final Resul t [facility] [address] [place] [address] * CT THORACIC OUTSIDE IMAGES (08/26/2025 8:18 AM EDT) Only the most recent of2 resultswithin the time period is included. Anatomical Region Laterality Modality Computed Tomogra phy 08/26/2025 8:18 AM EDT External Provider IMG CT PROCEDURES Edited Resul t - Final * Adult Patch Monitor - 14 Day (08/18/2025 8:56 AM EDT) Anatomical Region Laterality Modality Other Narrative 09/14/2025 9:07 AM EST PRELIMINARY FINDINGS: Analysis date: 09/04/25 - by MP-CCT Patient monitored for 13d 23h, analyzable time was 13d 23h starting on 08/18/2025 08:49 am. Primary rhythm was Sinus Rhythm. Average heart rate was 80 bpm, Minimum heart rate was 38 bpm on Day :59:10 am, Max heart rate was 189 bpm on Day :28:50 am Atrial Fibrillation or Flutter: [place] was 4.92 %, longest event 2h 30min on Day :50:30 pm, fastest event 181 bpm on Day :50:30 pm. SVE(s): [place] was 2.82 %, [address] total SVE(s) SV Arrhythmia(s): 107 event(s), longest event 5 beats on :48:23 pm, fastest event 189 bpm on :28:55 Am Pause: 1 event(s), longest pause 2143 ms on Day :33:00 am PVC(s): [place] was 0.35 %, 5581 total PVC(s), 4 disparate morphologies Ventricular Arrhythmia(s): 1 event(s), longest event 7 beats at Day :16:40 am, fastest event 177 bpm at Day :16:40 am Patient recorded 1 event(s) during the monitoring period PHYSICIAN COMMENTS: 1) Patient's predominant rhythm is sinus with an average heart rate of 80 beats/minute. Minimum heart rate of 38 beats/minute and maximum heart rate of 189 beats/minute. 2) Patient had paroxysmal atrial fibrillation. Average heart rate while in Afib was 116 bpm and total Afib burden of 4.9%. Episodes of non-sustained SVT and VT (all less than 10 beats). 3) Patient reported a single episode of symptoms while wearing the monitor. Symptoms were not associated with any clinical arrhythmias. 4) Patient had 2.8% premature supraventricular beat burden and a <1% premature ventricular beat burden. This is within the normal range. Ana Rosa Fields MD CV CARDIAC SERVICES PROCEDURES Final Result * (ABNORMAL) POCT glucose meter (08/14/2025 11:49 PM EDT) [facility] Signature POCT Glucose 105(H) 74 - 99 mg/dL 08/14/2025 11:52 PM EDT [facility] Comment:Accuracy of a glucos e result [...] for testing. Comment 08/14/2025 11:52 PM EDT [facility] Network Security Analyst ID Jagdeep Delarosa 025 11:52 PM EDT [facility] Device ID [id number] 08/14/2025 11:52 PM EDT [facility] Specimen Type POC Capillary 08/14/2025 11:52 PM EDT [facility] Blood Capillary blood specimen / Unknown 08/14/2025 11:49 PM EDT 08/14/2025 11:52 PM EDT us Ana Rosa Fields MD LAB POINT OF CARE TE ST DOCKED DEVICE UNSOLICITED RESULTS Final Result Performing Organization Address City/[facility]/ZIP Co de Phone Number [facility]ALTH[facility]ARE LAB [address] [place] [address] * (ABNORMAL) Fecal Lactoferrin (08/14/2025 10:21 AM EDT) Fecal Lactoferrin Result Positive( A) Negative 08/14/2025 12:[address] [facility] Stool Rectum structure / Unknown Non-blood Collection / Unknown 08/14/2025 10:21 AM EDT 08/14/2025 11:27 AM EDT Narrative [facility] - 08/14/2025 12:27 PM EDT NOTE: If patient is a breastfed child, results may be falsely positive. us Kalina Crandall MD LAB MICROBIOLOGY - GENERAL ORD ERABLES Final Result [facility] [address] [place] [address] * (ABNORMAL) Calprotectin, Stool (08/14/2025 10:21 AM EDT) CALPROTECTIN 1470(H) <=49 ug/g 08/17/2025 8:54 PM EDT [facility] ([place]) Stool Stool specimen / Unknown Non-blood Collection / Unknown 08/14/2025 10:21 AM EDT 08/14/2025 11:27 AM EDT Narrative [facility] ([place]) - 08/17/2025 8:54 PM EDT REFERENCE INTERVAL: Calprotectin, Fecal by Immunoassay Less than 50 ug/g........Normal 50-120 ug/g..............Borderline elevated, test should be re-evaluated in 4-6 weeks. 121 ug/g or greater......Elevated Performed By: [facility] [address] [place] [address] Healthcare Manager: Kirk Camara MD, PhD CLIA Number: [id number] us Kalina Crandall MD LAB BODY FLUIDS AND STOOLS ORD ERABLES Final Result [facility] ([place]) [address] [place] [address] * (ABNORMAL) Sodium (08/14/2025 5:24 AM EDT) Only the most recent of2 resultswithin the time period is included. Sodium, Plasma 130(L) 136 - 145 mmol/L 08/14/2025 5:58 AM EDT [facility] Blood Venous blood specimen / Unknown Venipuncture / Unknown 08/14/2025 5:24 AM EDT 08/14/2025 5:35 AM EDT us Sara Castañeda MD LAB BLOOD ORDERABLES Final R esult [facility] [address] [place] [address] * ED HIV 1/2 Antibody/Antigen Screen w/Reflex to HIV 1/2 Differentiation (08/13/2025 1:24 PM EDT) Pathologist [facility] HIV 1 & 2 Antibody/Antigen Screen Non Reactive Non Reactive 08/13/2025 2:30 PM EDT [facility] Comment:Screening for HIV 1 & 2 antibodies, and P24 antigen is NONREACTIVE. No confirmatory testing is required. Blood Venous blood specimen / Unknown Venipuncture / Unknown 08/13/2025 1:24 PM EDT 08/13/2025 1:37 PM EDT us Kalina Crandall MD LAB BLOOD ORDERABLES Final Res ult Performing Organization Address [facility] [place] [address] * Hepatitis C Antibody - ED (08/13/2025 1:24 PM EDT) Hepatitis C Antibody Negative Negative 08/13/2025 2:[address] [facility] Blood Venous blood specimen / Unknown Venipuncture / Unknown 08/13/2025 1:24 PM EDT 08/13/2025 1:37 PM EDT us Kalina Crandall MD LAB BLOOD ORDERABLES Final Res ult Performing Organization Address [facility] [place] [address] * (ABNORMAL) Osmolality (08/13/2025 1:24 PM EDT) Pathologist [facility] Osmolality, Serum 277(L) 280 - 301 mOsm/Kg 08/13/2025 5:29 PM EDT [facility] Blood Venous blood specimen / Unknown Venipuncture / Unknown 08/13/2025 1:24 PM EDT 08/13/2025 1:29 PM EDT us Sara Castañeda MD LAB BLOOD ORDERABLES Final R esult Performing Organization Address [facility] [place] [address] * CT OUTSIDE IMAGES (08/13/2025 6:18 AM EDT) Anatomical Region Laterality Modality Computed Tomogra phy 08/13/2025 6:18 AM EDT us Kenneth Daniel MD IMG CT PROCEDURES Edited Resul t - Final * Free T4, Plasma (08/03/2025 8:02 AM EDT) [facility] Free T4, Plasma 1.5 0.8 - 1.7 ng/dL 08/03/2025 9:14 AM EDT [facility] Blood Blood sample taken from central line / Unknown (Port) Long-term Catheter / Unknown 08/03/2025 8:02 AM EDT 08/03/2025 8:13 AM EDT us Que Gentile MD LAB BLOOD ORDERABLES Final R esult [facility] [address] [place] [address] * (ABNORMAL) Pulmonary function testing (08/02/2025 12:00 PM EDT) XZH2OGI 4.57 3.31 - 5.64 L VYAIRE PFT FVC PRED 4.47 VYAIRE PFT FVC LLN 3.31 VYAIRE PFT FVCPREZSCORE 0.14 VYAIRE PFT FVCPRE%PRED 102 % % VYAIRE PFT FVC PREDAUT US_Quanjer GLI (2011) VYAIRE PFT FVC Z-SCORE 0.14 VYAIRE PFT FEV1 PRE 3.45 2.42 - 4.24 L VYAIRE PFT FEV1 PRED 3.36 VYAIRE PFT FEV1 LLN 2.42 VYAIRE PFT ZCZ2TKYCMSLLL 0.18 VYAIRE PFT FEV1_Pre%Pred 103 % % VYAIRE PFT FEV1 PREDAUTH US_Quanjer GLI (2011) VYAIRE PFT FEV1 Z-SCORE 0.18 VYAIRE PFT FEV1/FVC PRE 75.65 62.09 - 87.50 % VYAIRE PFT EWP3UCLZVGN 76 VYAIRE PFT GRP9FJNNMN 62 VYAIRE PFT XXX4GJAMNSQUBTKQ 0.01 VYAIRE PFT RKU6GJAHND%PRED 100 % % VYAIRE PFT CBG3PIJQJFTW US_[facility]jer GLI (2011) VYAIRE PFT VJY2HOAHWZJQM 0 VYAIRE PFT ALU89-62% PRE 2.65 1.08 - 4.52 L/s VYAIRE PFT UFE27-11%_Pred 2.50 VYAIRE PFT WBI4772%LLN 1.08 VYAIRE PFT RLF3949%PREZSCORE 0.14 VYAIRE PFT KQH9564%PRE%PRED 106 % % VYAIRE PFT XEZ3084%[facility] GLI (2011) VYAIRE PFT PEF PRE 13.66(A) 6.32 - 11.18 L/s VYAIRE PFT PEF PRED 8.75 VYAIRE PFT PEF LLN 6.32 VYAIRE PFT PEFPREZSCORE 3.33 VYAIRE PFT PEFPRE%PRED 156 % % VYAIRE PFT PEF PREDUN[facility] III (1998) VYAIRE PFT CXCSWNJSJMRLYOOY5PVF 16.30(A) 19.85 - 35.57 ml/(min* mmHg) VYAIRE PFT DLCOSINGLEBREATH PRED 27.02 VYAIRE PFT DLCOSINGLEBREATH LLN 19.85 VYAIRE PFT DLCOSINGLEBREATH Z-SCORE -2.60 VYAIRE PFT DLCOSINGLEBREATH % PRED 60.3 % VYAIRE PFT DLCOSINGLEBREATH PREDM[facility] TLCO GLI (2019) VYAIRE PFT DLCOSINGLEBREATH Z-SCORE -2.60 08/02/2025 12:05 PM EDT VYAIRE PFT DCCCNSRYAKBOFJMIQ7GZ E 16.90(A) 19.85 - 35.57 ml/(min* mmHg) VYAIRE PFT DLCOCSINGLEBREATH PRED 27.02 VYAIRE PFT DLCOCSINGLEBREATH LLN 19.85 VYAIRE PFT DLCOCSINGLEBREATH Z-SCORE -2.43 VYAIRE PFT DLCOCSINGLEBREATH % PRED 62.5 % VYAIRE PFT DLCOCSINGLEBREATH PREDMountain [facility] Medical Center TLCO GLI (2019) VYAIRE PFT ZUQUBW8PJO 2.90(A) 2.96 - 5.12 ml/(min* mmHg*L) VYAIRE PFT DLCOVAPRED 3.99 VYAIRE PFT DLCOVALLN 2.96 VYAIRE PFT DLCOVAZSCORE -1.75 VYAIRE PFT DLCOVA%PRED 72.6 % VYAIRE PFT DLCOVAPREDAUT Stanojevic TLCO GLI (2019) VYAIRE PFT DLCOVAZSCORE -1.75 08/02/2025 12:05 PM EDT VYAIRE PFT FFGOKZCEJ1GHA 3.00 2.96 - 5.12 ml/(min* mmHg*L) VYAIRE PFT DLCOC SB/VA PRED 3.99 VYAIRE PFT DLCOC SB/VA LLN 2.96 VYAIRE PFT DLCOC SB/VA Z-SCORE -1.57 VYAIRE PFT DLCOC SB/VA % PRED 75.2 % VYAIRE PFT DLCOC SB/VA PREDAUT Stanojevic TLCO GLI (2019) VYAIRE PFT DLCOC SB/VA Z-SCORE -1.57 08/02 12:05 PM EDT VYAIRE PFT VWOPRUTIUCYNGL4EWN 5.63 5.48 - 8.24 L VYAIRE PFT VASINGLEBREATH PRED 6.80 VYAIRE PFT VASINGLEBREATH LLN 5.48 VYAIRE PFT VASINGLEBREATH Z-SCORE -1.46 VYAIRE PFT VASINGLEBREATH % PRED 82.7 % VYAIRE PFT VASINGLEBREATH PREDAUT Stanojevic TLCO GLI (2019) VYAIRE PFT VASINGLEBREATH Z-SCORE -1.46 08/02/2025 12:05 PM EDT VYAIRE PFT GICCMMGOBUHBYRT5CZP 4.44 3.31 - 5.64 L VYAIRE PFT IVCSINGLEBREATH PRED 4.47 VYAIRE PFT IVCSINGLEBREATH LLN 3.31 VYAIRE PFT IVCSINGLEBREATH Z-SCORE -0.04 VYAIRE PFT IVCSINGLEBREATH % PRED 99.4 % VYAIRE PFT IVCSINGLEBREATH PREDAUT US_[facility]jer GLI (2011) VYAIRE PFT AZALEA% VCMAX PRE 96.17 % VYAIRE PFT TLC SB PRE 5.83(A) 5.97 - 9.15 L VYAIRE PFT TLCSINGLEBREATH PRED 7.55 VYAIRE PFT TLCSINGLEBREATH LLN 5.97 VYAIRE PFT TLCSINGLEBREATH Z-SCORE -1.79 VYAIRE PFT TLCSINGLEBREATH % PRED 77.2 % VYAIRE PFT TLCSINGLEBREATH [facility] Lung volumes GLI (2019)__ VYAIRE PFT HB PRE 13.40 g(Hb)/dL VYAIRE PFT JXP6UWV 6.59 5.97 - 9.15 L VYAIRE PFT TLCPRED 7.55 VYAIRE PFT TLCLLN 5.97 VYAIRE PFT TLCULN 9.15 VYAIRE PFT TLCZSCORE -1.00 VYAIRE PFT TLC%PRED 87.3 % VYAIRE PFT [facility]PREDProv[facility] Lung volumes GLI (2019)__ VYAIRE PFT [...] [facility] Lung volumes GLI (2019)__ VYAIRE PFT FRIWXQCX7XOL 2.95 2.88 - 5.71 L VYAIRE PFT FRCPLETH PRED 4.13 VYAIRE PFT FRCPLETH LLN 2.88 VYAIRE PFT FRCPLETH ULN 5.71 VYAIRE PFT FRCPLETH Z-SCORE -1.53 VYAIRE PFT FRCPLETH % PRED 71.4 % VYAIRE PFT FRCPLETH PREDAUTH [facility] Lung volumes GLI (2019)__ VYAIRE PFT ZMN6DLY 0.98 0.43 - 2.72 L VYAIRE PFT ERVPRED 1.35 VYAIRE PFT ERVLLN 0.43 VYAIRE PFT ERVULN 2.72 VYAIRE PFT ERV Z-SCORE -0.58 VYAIRE PFT ERV%PRED 72.1 % VYAIRE PFT ERVPREDAUTH [facility] Lung volumes GLI (2019)__ VYAIRE PFT RV0PRE 1.98 1.60 - 4.02 L VYAIRE PFT RVPRED 2.70 VYAIRE PFT RVLLN 1.60 VYAIRE PFT RVULN 4.02 VYAIRE PFT RVZSCORE -1.04 VYAIRE PFT RV%PRED 73.2 % VYAIRE PFT RVPREDAUTH [facility] Lung volumes GLI (2019)__ VYAIRE PFT RV%NKB5RRW 29.97 24.30 - 47.37 % VYAIRE PFT RV%TLCPRED 36 VYAIRE PFT RV%TLCLLN 24 VYAIRE PFT RV%TLCULN 47 VYAIRE PFT RV%TLCZSCORE -0.81 VYAIRE PFT RV%TLC%PRED 84.2 % VYAIRE PFT RV%TLCPREDAUTH [facility] Lung volumes GLI (2019)__ VYAIRE PFT Anatomical Region Laterality Modality PFT 08/02/2025 10:3 4 AM EDT Narrative 08/03/2025 1:05 PM EDT Pulmonary Function Testing Report Justin Best 69 y.o. underwent pulmonary function testing today at the [facility]. The patient underwent spirometry, [...] There are no prior studies for comparison. Kim Machado MD PFT ORDERABLES Final Res [...] Darius Sanchez MD on 07/29/2025 3:24 PM us Ghulam K Pandalai MD IMG XR PROCEDURES Final Re sult * FL Less than 1 Hour Intraoperative (07/29/2025 2:15 PM EDT) Narrative IMAGING - 07/29/2025 2:16 PM EDT Images were obtained for surgical purposes. See Ghulam Ugarte's surgical note in the patient's chart for the findings. Ghulam Ugarte MD IMG FLUOROSCOPY PROCEDURES Final Result IMAGING * CO AN ELECTIVE ENDOTRACHEAL AIRWAY, PB ANESTHESIA PLACEHOLDER [...] is no recent study available for direct xbrg-ro-lauk comparison. Left Ventricle Based on the linear [...] is no recent study available for direct sbaf-li-abbw comparison. us Kim Machado MD CV ECHO PROCEDURES Final Result from Last 3 Months Additional Health Concerns Active Problems Noted Date Diagnosed Date Appointments 10/10/2025 Med Adherence 10/10/2025 Symptom management 10/19/2025 Infection Onset Date Last Indicated C. difficile 08/14/2025 08/26/2025 Insurance [facility] MEDIC[facility] Advance Directives * Full Code (Latest Code Status on File) Date Activated Date Inactivated Comments 09/29/2025 3:57 PM 10/05/2025 7:47 PM Question Answer Comments I have reviewed the capacity from the link above and, if needed, have updated to appropriate status: Yes * Full Code Date Activated Date Inactivated Comments 08/28/2025 3:07 PM 09/12/2025 7:56 PM Question Answer Comments I have reviewed the capacity from the link above and, if needed, have updated to appropriate status: Yes * Full Code Date Activated Date Inactivated Comments 08/13/2025 4:10 PM 08/15/2025 9:58 PM Question Answer Comments I have reviewed the capacity from the link above and, if needed, have updated to appropriate status: Yes Care Teams 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
--- OUTSIDE RECORDS SUMMARY | 2025-10-24 08:54 | XMS_ITS | Encounter Summary ---
Author Organization Healthcare Address [address] [place] [address] Care Team Providers Care Product Marketing Programs Manager Name Role Phone Darius Ken MD Primary Care Provider [phone] Yanely Rock DO Unavailable [phone] Rosalinda Cox RN Unavailable Unavailable Reason for Referral * Consultation (Routine) - Closed Specialty Diagnoses / Procedures Referred By Broderick olivares Referred To Contact Nephrology Diagnoses Chronic kidney disease (CKD) stage G3a/A1, moderately decreased glomerular filtration rate (GFR) between 45-59 mL/min/1.73 square meter and albuminuria creatinine ratio less than 30 mg/g Darius Ken MD [address] [address] Phone: tel: fax: Kirk Villatoro MD [address] [address] Phone: tel: fax: Referral ID Status Reason Start Date Expiration Date V isits Requested Visits Authorized [id number] Closed Specialty Services Required 07/23/2024 01/22/2026 1 1 Encounter Details Date Type Department Care Team ([facility] st Contact Info) Description 07/23/2024 Community [facility] [address] [place] [address] Darius Ken MD [address] [place] [address] Chronic kidney disease (CKD) stage G3a/A1, moderately decreased glomerular filtration rate (GFR) between 45-59 mL/min/1.73 square meter and albuminuria creatinine ratio less than 30 mg/g ([facility]/HCC) (Primary Dx) Social History Tobacco Use Types [...] CC Head, Neck & Respiratory [address] [facility], 2nd [place] [phone] Kim Machado MD [address] [facility] [address] [place] [address] 10/27/2025 11:00 AM EST [facility] [address] [facility] [place] [phone] 11/17/2025 7:50 AM EST Clinical Support [facility] Multidisciplinary Oncology Clinic [address] [place] [phone] 11/17/2025 8:00 AM EST Office Visit [facility] Multidisciplinary Oncology Clinic [address] [place] [phone] Aristides Reina MD [address] [place] [address] 11/17/2025 2:00 PM EST Office Visit [facility] Nephrology, Bone & Mineral Metabolism [address] [facility], [address] [place] [address] 11/21/2025 2:00 PM EST Appointment [facility] [address] [place] [address] 12/01/2025 1:30 PM EST [facility] [address] [place] [address] Yanely Rock, DO [address] [place] [address] 12/14/2025 10:00 AM EST Office Visit [facility] [place] [address] [facility], [address] [place] [address] Juarez Recinos MD [address] [place] [address] 01/13/2026 12:00 PM EST [facility] [address] [facility] [address] [place] [address] Eros Mejia MD [address] [place] [address] Scheduled Referrals Name Type Priority Associated Diagnoses Orde r Schedule Ambulatory referral to Nephrology Outpatient Referral Routine Chronic kidney disease (CKD) stage G3a/A1, moderately decreased glomerular filtration rate (GFR) between 45-59 mL/min/1.73 square meter and albuminuria creatinine ratio less than 30 mg/g ([facility]) Ordered: 07/23/2024 documented as of this encounter [...] 08/14/2025 1:05 PM EDT C. difficile 08/14/2025 08/26/2025 Gastrointestinal Rule-Out 08/26/2025 08/26/2025 10:36 PM EDT C. difficile Rule-Out 08/27/2025 08/26/20252024 1:42 PM EDT documented as of this encounter Care Teams Product Marketing Programs Manager Relationship Specialty Start Date End Date Darius Ken MD [address] [place] [address] PCP - General Internal Medicine 08/23/24 Yanely Rock DO [address] [place] [address] Surgeon Urology 09/22/25 Rosalinda Cox, RN VALUE-BASED TRANSFORMATION PROGRAM [place] Fence Supervisor 10/04/25 documented as of this encounter
--- OUTSIDE RECORDS SUMMARY | 2025-10-24 08:54 | XMS_ITS | Encounter Summary ---
Author Organization Healthcare Address [address] [place] [address] Care Team Providers Care Preschool Assistant Principal Name Role Phone Darius Ken MD Primary Care Provider [phone] Yanely Rock DO Unavailable [phone] Rosalinda Cox RN Unavailable Unavailable Encounter Details Date Type Department Care Team (Latest Contact Info) Description 10/13/2025 Travel Social History Tobacco Use Types Packs/Day [...] time in the past 12 m [facility], were you homeless or living in a [place] facility (including now)? No 10/10/2025 [facility] Utilities Answer Date Recorded In the past [...] way Not at all 10/13/2025 9:27 AM Sandra Cox * How difficult have these problems made [...] Description 10/26/2025 2:45 PM EST Office Visit [facility] CC Head, Neck & Respiratory [address] [facility], [address]nd [place] [address] Kim Machado MD [address] [place] [address] 10/27/2025 11:00 AM EST Clinical Support [facility] Urology [address], [address] [place] [address] 11/17/2025 7:50 AM EST Clinical Support [facility] Multidisciplinary Oncology Clinic [address] [place] [address] 11/17/2025 8:00 AM EST Office Visit [facility] [address] [place] [address] Aristides Reina MD [address] [place] [address] 11/17/2025 2:00 PM EST Office Visit [facility] Nephrology, Bone & Mineral Metabolism [address] [facility], [address] [place] [address] 11/21/2025 2:00 PM EST Appointment [facility] [address] [place] [address] 12/01/2025 1:30 PM EST Office Visit [facility] Urology [address] [place] [address] Yanely Rock DO [address] [place] [address] 12/14/2025 10:00 AM EST Office Visit [facility] [place] [address] [facility], [address] [place] [address] Juarez Recinos MD [address] [place] [address] 01/13/2026 12:00 PM EST Office Visit [facility] [address] [place] [address] Eros Mejia MD [address] [place] [address] documented as of this encounter [...] filedocumented in this encounter Additional Health Concerns Active [...] documented as of this encounter Care Teams Preschool Assistant Principal Relationship Specialty Start Date End Date Darius Ken MD [address] [place] [address] PCP - General Internal Medicine 08/23/24 Yanely Rock DO [address] [place] [address] Surgeon Urology 09/22/25 Rosalinda Cox, RN VALUE-BASED TRANSFORMATION PROGRAM [place] Restaurant Line Server 10/04/25 documented as of this encounter
--- OUTSIDE RECORDS SUMMARY | 2025-10-24 08:54 | XMS_ITS | Encounter Summary ---
Author Organization Healthcare Address [address] [place] [address] Care Team Providers Care Fundraising Manager Name Role Phone Darius Ken MD Primary Care Provider [phone] Yanely Rock DO Unavailable [phone] Rosalinda Cox RN Unavailable Unavailable Encounter Details Date Type Department Care Team (Latest Contact Info) Description 10/06/2025 Travel Social History Tobacco Use Types Packs/Day [...] any time in the past 12 m onths, were you homeless or living in a nursing home (including now)? No 09/30/2025 [facility] Utilities Answer Date Recorded In [...] & Respiratory [address] , [address] [place] [address] Kim aMchado MD [address] [place] [address] 10/27/2025 11:00 AM EST [facility] [address], [address]nd [place] [address] 11/17/2025 7:50 AM EST Clinical Support [facility] [address] [facility] [address] 11/17/2025 8:00 AM EST Office Visit [facility] Multidisciplinary Oncology Clinic [address] [place] [address] Aristides Reina MD [address] [place] [address] 11/17/2025 2:00 PM EST Office Visit [facility] Nephrology, Bone & Mineral Metabolism [address] [facility], [address] [place] [address] 11/21/2025 2:00 PM EST Appointment [facility] Radiology [address], 1st [place] [address] 12/01/2025 1:30 PM EST [facility] [address], [address]nd [place] [address] Yanely Rock R, [address] [place] [address] 12/14/2025 10:00 AM EST Office Visit [facility] [place] [address] [facility] [facility], [address] [place] [address] Juarez Recinos MD [address] [place] [address] 01/13/2026 12:00 PM EST Office Visit [facility] [address] [place] [address] Eros Mejia MD [address] [place] [address] documented as of this encounter [...] documented as of this encounter Care Teams Fundraising Manager Relationship Specialty Start Date End Date Darius Ken MD [address] [place] [address] PCP - General Internal Medicine 08/23/24 Yanely Rock DO [address] [place] [address] Surgeon Urology 09/22/25 Rosalinda Cox, RN VALUE-BASED TRANSFORMATION PROGRAM [place] Rubber Goods Tester Water 10/04/25 documented as of this encounter
--- OUTSIDE RECORDS SUMMARY | 2025-10-24 08:54 | XMS_ITS | Encounter Summary ---
Author Organization Healthcare Address [address] [place] [address] Care Team Providers Care Assembly Worker Name Role Phone Darius Ken MD Primary Care Provider [phone] Yanely Rock DO Unavailable [phone] Rosalinda Cox RN Unavailable Unavailable Reason for Visit * Reason Comments CM Encounter Details Date Type Department Care Team (Late Contact Info) Description 10/10/2025 Patient Outreach POPULATION [facility]ALTH [address], [address] [place] [address] Rosalinda Cox, RN VALUE-BASED TRANSFORMATION PROGRAM [facility] Social History Tobacco Use Types Packs/Day Years [...] time in the past 12 m [place], were you homeless or living in a fci (including now)? No 10/10/2025 [facility] Utilities Answer Date Recorded In [...] encounter Miscellaneous Notes * Progress Notes - Rosalinda Cox RN - 10/10/2025 9:11 AM EST Admit Date: 09/29/2025 Discharge Date: 10/05/2025 Hospital Service: Hospital Medicine Discharge Diagnosis: Obstructive nephropathy 10/10/2025 TCM call # 1 Patient Reached: yes Outcome: Spoke with patient Action: Discussed health, questions/concerns since hospital discharge Better mostly, some lightheaded Orthostasis twice-sitting to standing No falls Walker around the house Bernstein catheter- adequate UOP, no concerns Medication changes: Medication reconciliation completed. Taking medications as prescribed. Prednisone 80 mg until 10/07/2025, Transition to Prednisone 60mg in week 2, 40mg in week 3, 20 mg in week 4, 10mg in week 5 and 5mg in week 6 Atovaquone 1500 mg daily Pause medications: Loperamide Pantoprazole [place] appointment: Non PCP: Darius Ken MD, [place]- appointment scheduled Oct 12 Follow-up with Dr. Reina ([facility])- message sent to hematology/oncology staff to follow-up regarding canceled infusion 10/13/[address] Reina follow-up appointment Items to address at [place]: Kidney bx Infusion follow up Appt Dr Reina [facility] Enrollment 10/10/2025 [facility] Program Service: [x] Hospital medicine [] Family Medicine or [] Other PCP: [] Internal or [x] External follows with [facility] Oncology [facility] Admission Info: Discharge Date: 10/05/2025 Primary Dx: Obstructive nephropathy Secondary Dx: Adenocarcinoma of gastroesophageal junction, prostatomegaly/BPH, kidney biopsy 10/04/2025 Number of Admissions (last 6 Mos.): 4 Outreach to Patient [x] Outreach 1: 10/10/2025 [] Outreach 2: [] Outreach 3: [x] Enrollment Date: 10/10/2025 Risk & Needs Assessment/Summaries Health Updates/Concerns: - Completed All Assessments: [x] Yes [] No Caregiver/Support System: Medications: Access: Has medications, denies access concerns Adherence: Taking medications as prescribed Tolerance/ Side Effects: Tolerating well without side effects Summary: Patient mentions decreased appetite. Encouraged to continue clear liquid, light diet. Advance as tolerated. Discuss with PCP at appointment 10/12/2025 SDOH SDOH Update: Care Gaps: [Health Maintenance] Patient-Centered Care Plan Patient???s Stated Goals Stay out of the hospital Nurse Navigator Goals Attend PCP appointment Attend nephrology appointment Medication adherence Planned Interventions [x] Frequency of outreach : Weekly X 4 [x] phone follow-up [] Collaboration Needed: [] Pharmacy, [] FAP, [] LINK [] CHW [x] Education provided [x] Condition-specific [x] Red flag symptoms [x] When to call vs. when to go to ED [x] Care plan initiated. [x] Graduation Plan: 4-6 weeks Next Steps & Follow-Up Chronic Conditions & Preventive Needs [] Chronic Condition Monitoring Summary: Mr. 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 S/p kidney biopsy 10/04 with stable hemoglobin 24 hours later. Medically ready for discharg e 10/05/2025. [x] Specialty Follow-Ups Needed: Nephrology Hematology Infusion Planned outreach Summary: Weekly X 4 Upcoming appointments Future Appointments Date Time Provider Department Center 10/13/2025 1:00 PM (JOSI)RAMON [facility] 10/27/2025 11:00 AM UROLOGY STAFF SUPPORT [facility] 11/21/2025 2:00 PM GS MR 2 [facility] 12/01/2025 1:30 PM Yanely Rock, [facility] 12/14/2025 10:00 AM Juarez Recinos MD [facility] 01/13/2026 12:00 PM Eros Mejia MD [facility] [x] Patient enrolled in [facility]. Rosalinda Cox, RN Population Health Nurse documented in this encounter Plan of Treatment Upcoming Encounters Date Type Department Care Team (Latest Contact Info) Description 10/26/2025 2:45 PM EST Office Visit [facility] Head, Neck & Respiratory [address] [place] [address] Kim Machado MD [address] [place] [address] 10/27/2025 11:00 AM EST Clinical Support [facility] [address], [address] [place] [address] 11/17/2025 7:50 AM EST Clinical Support [facility] [address] [place] [address] 11/17/2025 8:00 AM EST Office Visit [facility] Multidisciplinary Oncology Clinic [address] [place] [address] Aristides Reina MD [address] [place] [address] 11/17/2025 2:00 PM EST Office Visit [facility] Nephrology, Bone & Mineral Metabolism [address], [address] [place] [address] 11/21/2025 2:00 PM EST Appointment [facility] Radiology [address], [address] [place] [address] 12/01/2025 1:30 PM EST Office Visit [place] [facility] [address], [address]nd [place] [address] Yanely Rock, [address] [place] [address] 12/14/2025 10:00 AM EST Office Visit [facility] [place] [address], [address] [place] [address] Juarez Recinos MD [address] [place] [address] 01/13/2026 12:00 PM EST Office Visit [facility] [address] [place] [address] Eros Mejia MD [address] [place] [address] documented as of this encounter Goals Goal Patient Goal Type Associated Problems Recent Progress Patient-Stated? Author Patient will attend PCP appointment 10/12/2025 Care Plan Appointments On track( 025 4:26 PM EST) Rosalinda Horne, RN Patient will attend nephrology appointment 10/13/2025 [...] documented as of this encounter Care Teams Assembly Worker Relationship Specialty Start Date End Date Darius Ken MD [address] [place] [address] PCP - General Internal Medicine 08/23/24 Yanely Rock DO [address] [place] [address] Surgeon Urology 09/22/25 Rosalinda Cox, RN VALUE-BASED TRANSFORMATION PROGRAM [place] Vacuum Kettle Cook 10/04/25 documented as of this encounter
--- OUTSIDE RECORDS SUMMARY | 2025-10-24 08:54 | XMS_ITS | Encounter Summary ---
Author Organization Healthcare Address [address] [place] [address] Care Team Providers Care Lead Sprinkler Name Role Phone Darius Ken MD Primary Care Provider [phone] Yanely Rock DO Unavailable [phone] Rosalinda Cox RN Unavailable Unavailable Encounter Details Date Type Department Care Team (Latest Contact Info) Description 10/11/2025 Travel Social History Tobacco Use Types Packs/Day [...] health care facility (including now)? No 10/10/2025 [facility] Utilities Answer Date Recorded In the [...] & Respiratory [address] [place] [address] Kim Machado MD [address] [place] [address] 10/27/2025 11:00 AM EST Clinical Support [facility] [address], [address] [place] [address] 11/17/2025 7:50 AM EST Clinical Support [facility] [address] [facility] [place] [address] 11/17/2025 8:00 AM EST Office Visit [facility] Multidisciplinary Oncology Clinic [address] [place] [address] Aristides Reina MD [address] [place] [address] 11/17/2025 2:00 PM EST Office Visit [facility] Nephrology, Bone & Mineral Metabolism [address] [facility], [address] [place] [address] 11/21/2025 2:00 PM EST Appointment [facility] Radiology [address], 1st [place] [address] 12/01/2025 1:30 PM EST Office Visit [facility] Urology [address], [address] [place] [address] Yanely Rock R, [address] [place] [address] 12/14/2025 10:00 AM EST Office Visit [facility] [place] [address] [facility] [address], [address] [place] [address] Juarez Recinos MD [address] [place] [address] 01/13/2026 12:00 PM EST Office Visit [facility] [address] [place] [address] Eros Mejia MD [address] [place] [address] documented as of this encounter Goals Goal Patient Goal Type Associated Problems Recent Progress Patient-Stated? Author Patient will attend PCP appointment 10/12/2025 Care Plan Appointments On track( 025 4:26 PM EST) Rosalinda Horne, RN Patient will attend nephrology appointment 10/13/2025 Care Plan Appointments On track( 025 4:11 PM EST) No Rosalinda Cox RN [...] documented as of this encounter Care Teams Lead Sprinkler Relationship Specialty Start Date End Date Darius Ken MD [address] [place] [address] PCP - General Internal Medicine 08/23/24 Yanely Rock DO [address] [place] [address] Surgeon Urology 09/22/25 Rosalinda Cox, RN VALUE-BASED TRANSFORMATION PROGRAM [place] Cover Maker 10/04/25 documented as of this encounter
--- OUTSIDE RECORDS SUMMARY | 2025-10-24 08:55 | XMS_ITS | Encounter Summary ---
Author Organization Healthcare Address [address] [place] [address] Care Team Providers Care Forest Fire Prevention Manager Name Role Phone Darius Ken MD Primary Care Provider [phone] Yanely Rock DO Unavailable [phone] Rosalinda Cox RN Unavailable Unavailable Reason for Visit * Reason Comments CM Encounter Details Date Type Department Care Team (Late st Contact Info) Description 10/19/2025 Patient Outreach POPULATION HEALTH [address], [address] [place] [address] Rosalinda Cox, RN VALUE-BASED TRANSFORMATION PROGRAM [facility] Social History Tobacco Use Types Packs/Day Years [...] any time in the past 12 m [facility], were you homeless or living in a long-term (including now)? No 10/10/2025 [facility] Utilities Answer Date Recorded In the [...] Progress Notes - Rosalinda Cox RN - 10/19/2025 2:52 PM EST [facility] Outreach/Follow-Up Completed on: 10/19/2025 Spoke with patient Health Assessment: Symptom Changes/Updates: [x] Yes [] No [] N/A Went to PT today, stamina problem. Gets extremely dizzy when standing all the time At PT today, per pt: Sitting BP 92/60 Standing BP 70/50 No falls NN called Dr Ken's office. LVM for return call to pt or NN to discuss orthostasis and appt needed for evaluation Medications/Refills: Changes: [] Yes [x] No [] N/A Summary: Barriers to RX Access: [] Yes [x] No [] N/A Summary: Care Plan: Care Plan Updates: [] Reviewed; Remains Appropriate [x] Care Plan updated Summary: Added symptom management (syncope) Care Gaps Addressed: [] Yes - (what?) [] No - (List why and next steps) [x] Reviewed; no changes SDOH Update: [] Yes - (Summary) [] CHW Assigned: [x] Reviewed; no changes Patient Care Information: Recent ED/Hospital Visit Summary: Appointments/Follow-Up Upcoming Appointments: Future Appointments Date Time Provider Department Center 10/26/2025 2:45 PM Kim Machado [facility] 10/27/2025 11:00 AM UROLOGY STAFF SUPPORT [facility] 11/17/2025 7:50 AM MULTI-D TRESTLE MECHANIC GAS SINGER KOREY Ramos 11/17/2025 8:00 AM Aristides Reina MD [facility] 11/17/2025 2:00 PM ([facility] 11/21/2025 2:00 PM MR [facility] 12/01/2025 1:30 PM Yanely Rock, [facility] 12/14/2025 10:00 AM Juarez Recinos MD [facility] 01/13/2026 12:00 PM Eros Mejia MD [facility] [place] Missed Appointments: [x] N/A (List, with reschedule plan) Assistance Needed: (Reminders, coordination) Caregiver Support System: [] Updated: [x] Reviewed; Remains the same Education Provided: [x] Reinforced Care Plan & F/U Process: [] Additional Information Provided: Next Steps: [x] Continue Care/Follow-up Plan Summary (if needed): [x] Tasks set for F/U 10/20/2025 Phone call to PCP to follow-up for appointment- PCP office returned call. PCP office to contact patient to coordinate appt for tomorrow Phone call to patient Rosalinda Cox, RN Population Health Nurse EMR M*Modal Fluency Direct/Inside Sales Person disclaimer: Parts of this note were dictated using M Modal Fluency Direct voice recognition software. As a result, errors may occur. When identified, these director of education errors are corrected, but while every attempt is made to prevent/correct these, errors may still exist. Please do not hesitate to reach out to me for clarification. documented in this encounter Plan of Treatment Upcoming Encounters Date Type Department Care Team (Latest Contact Info) Description 10/26/2025 2:45 PM EST Office Visit [facility] Neck & Respiratory [address] [facility], 2nd [place] [address] Kim Machado MD [address] [facility] [address] [place] [address] 10/27/2025 11:00 AM EST Clinical Support [facility] [address], [address]nd [place] [address] 11/17/2025 7:50 AM EST Clinical Support [facility] Multidisciplinary Oncology Clinic [address] [place] [address] 11/17/2025 8:00 AM EST Office Visit [facility] Multidisciplinary Oncology Clinic [address] [place] [address] Aristides Reina MD [address] [place] [address] 11/17/2025 2:00 PM EST Office Visit [facility] Nephrology, Bone & Mineral Metabolism [address] [facility], [address] [place] [address] 11/21/2025 2:00 PM EST Appointment [facility] Radiology [address], [address] [place] [address] 12/01/2025 1:30 PM EST Office Visit [facility] [address], [address] [place] [address] Yanely Rock DO [address] [place] [address] 12/14/2025 10:00 AM EST Office Visit [facility] [place] [facility] [address] [facility], [address] [place] [address] Juarez Recinos MD [address] [place] [address] 01/13/2026 12:00 PM EST Office Visit [facility] [address] [facility] [address] [place] [address] Eros Mejia MD [address] [place] [address] documented as of this encounter Goals Goal Patient Goal Type Associated Problems Recent Progress Patient-Stated? Author Patient will attend PCP appointment 10/12/2025 Care Plan Appointments On track( 4:26 PM EST) Rosalinda Horne RN Patient will attend nephrology appointment 10/13/2025 Care Plan Appointments On track( 4:11 PM EST) Rosalinda Horne RN Consistently take Medications as Prescribed Care Plan Med Adherence On track( 4:27 PM EST) Rosalinda Horne RN Patient to to be free from syncope Care Plan Symptom management Not on track( 4:29 PM EST) Rosalinda Horne RN documented as of this encounter Visit Diagnoses Not on filedocumented in this encounter Additional Health Concerns Active Problems Noted Date Diagnosed Date Appointments 10/10/2025 Med Adherence 10/10/2025 Symptom management 10/19/2025 Infection Onset Date Last Indicated Resolved Time C. difficile 08/14/2025 08/26/2025 Assessment Noted Time PHQ-9 Depression Total Score: 0 08/18/20 11:58 AM EDT A fall risk assessment has been complete d for the patient 10/13/2025 1:47 PM EST A Body Mass Index follow-up plan has been documented for the patient 10/19/2025 2:33 PM EST documented as of this encounter Care Teams Forest Fire Prevention Manager Relationship Specialty Start Date End Date Darius Ken MD [address] [place] [address] PCP - General Internal Medicine 08/23/24 Yanely Rock DO [address] [place] [address] Surgeon Urology 09/22/25 Rosalinda Cox, RN VALUE-BASED TRANSFORMATION PROGRAM [place] Line Analyst 10/04/25 documented as of this encounter
--- OUTSIDE RECORDS SUMMARY | 2025-10-24 08:55 | XMS_ITS | Encounter Summary ---
Author Organization Healthcare Address [address] [place] [address] Care Team Providers Care Staff Antisubmarine Officer Name Role Phone Darius Ken MD Primary Care Provider [phone] Yanely Rock DO Unavailable [phone] Rosalinda Cox RN Unavailable Unavailable Encounter Details Date Type Department Care Team (Latest Contact Info) Description 10/20/2025 Travel Social History Tobacco Use Types Packs/Day [...] in a long-term (including now)? No 10/10/2025 [facility] Utilities Answer Date Recorded In [...] & Respiratory [address] [place] [address] Kim Machado MD [address] [place] [address] 10/27/2025 11:00 AM EST Clinical Support [facility] [address], [address] [place] [address] 11/17/2025 7:50 AM EST Clinical Support [facility] [address] [place] [address] 11/17/2025 8:00 AM EST Office Visit [facility] Multidisciplinary Oncology Clinic [address] [place] [address] Aristides Reina MD [address] [place] [address] 11/17/2025 2:00 PM EST Office Visit [facility] Nephrology, Bone & Mineral Metabolism [address] [facility], [address] [place] [address] 11/21/2025 2:00 PM EST Appointment [facility] Radiology [address], 1st [place] [address] 12/01/2025 1:30 PM EST Office Visit [facility] Urology [address], [address] [place] [address] Yanely Rock R, [address] [place] [address] 12/14/2025 10:00 AM EST Office Visit [facility] [place] [address] [facility], [address] [place] [address] Juarez Recinos MD [address] [place] [address] 01/13/2026 12:00 PM EST Office Visit [facility] [address] [place] [address] Eros Mejia MD [address] [place] [address] documented as of this encounter Goals Goal Patient Goal Type Associated Problems Recent Progress Patient-Stated? Author Patient will attend PCP appointment 10/12/2025 Care Plan Appointments On track( 025 4:26 PM EST) Rosalinda Horne, RN Patient will attend nephrology appointment 10/13/2025 Care Plan Appointments On track( 4:11 PM EST) No Rosalinda oCx RN Consistently take Medications as Prescribed Care Plan Med Adherence On track( 4:27 PM EST) No Rosalinda Cox RN Patient to to be free from syncope Care Plan Symptom management Not on track( 4:29 PM EST) No Rosalinda Cox RN documented [...] documented as of this encounter Care Teams Staff Antisubmarine Officer Relationship Specialty Start Date End Date Darius Ken MD [address] [place] [address] PCP - General Internal Medicine 08/23/24 Yanely Rock DO [address] [place] [address] Surgeon Urology 09/22/25 Rosalinda Cox RN VALUE-BASED TRANSFORMATION PROGRAM [place] Repairer Veneer Sheet 10/04/25 documented as of this encounter
--- OUTSIDE RECORDS SUMMARY | 2025-10-24 08:55 | XMS_ITS | Encounter Summary ---
Author Organization Healthcare Address [address] [place] [address] Care Team Providers Care Stock Clerk Name Role Phone Darius Ken MD Primary Care Provider [phone] Yanely Rock DO Unavailable [phone] Rosalinda Cox RN Unavailable Unavailable Reason for Visit * Reason Comments CM Encounter Details Date Type Department Care Team (Late Contact Info) Description 10/20/2025 Patient Outreach POPULATION HEALTH [address], [address] [place] [phone] Rosalinda Cox, RN VALUE-BASED TRANSFORMATION PROGRAM [facility] Social History Tobacco Use Types Packs/Day [...] in the past 12 m [facility], were you homeless or living in a skilled nursing (including now)? No 10/10/2025 [facility] Utilities Answer Date Recorded In the past [...] Progress Notes - Rosalinda Cox RN - 10/20/2025 10:16 AM EST 10/20/2025 HRCM Follow-Up Call Patient reached: Yes Care coordination Summary: Spoke with patient. Confirms he is seeing his PCP today. Appreciative of call. Next Steps: Follow up with patient next week. Task placed Rosalinda Cxo RN HRCM Nurse Population Health documented in this encounter Plan of Treatment Upcoming Encounters Date Type Department Care Team (Latest Contact Info) Description 10/26/2025 2:45 PM EST Office Visit [facility] [address] [facility], 2nd [place] [address] Kim Machado MD [address] [place] [address] 10/27/2025 11:00 AM EST Clinical Support [facility] [address], 2nd [place] [address] 11/17/2025 7:50 AM EST Clinical Support [facility] Multidisciplinary Oncology Clinic 800 [place] [address] 11/17/2025 8:00 AM EST Office Visit [facility]cology [facility] [address] [place] [address] Aristides Reina MD 800 [place], [place] [id number] 11/17/2025 2:00 PM EST Office Visit [facility] Nephrology, Bone & Mineral Metabolism [address], [address] [place] [address] 11/21/2025 2:00 PM EST Appointment [facility] Radiology [address], [address]st [place] [address] 12/01/2025 1:30 PM EST Office Visit [facility] [address], 2nd [place] [address] Yanely Rock DO [address] [place] [address] 12/14/2025 10:00 AM EST Office Visit [facility] [place] [address], [address] [place] [address] Juarez Recinos MD [address] [place] [address] 01/13/2026 12:00 PM EST Office Visit [facility] [address] [place] [address] Eros Mejia MD [address] [place] [address] documented as of this encounter Goals [...] documented as of this encounter Care Teams Stock Clerk Relationship Specialty Start Date End Date Darius Ken MD [address] [place] [address] PCP - General Internal Medicine 08/23/24 Yanely Rock DO [address] [place] [address] Surgeon Urology 09/22/25 Rosalinda Cox, RN VALUE-BASED TRANSFORMATION PROGRAM [place] Automatic Clipper And Stripper 10/04/25 documented as of this encounter
--- OUTSIDE RECORDS SUMMARY | 2025-10-24 08:55 | XMS_ITS | Encounter Summary ---
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 Procedures PET/CT FDG Skull Base To Mid Thigh Kim Machado MD [address] [place] [address] Phone: tel: fax: [facility] [address] [place] [address] Phone: tel: Referral ID Status Reason Start Date Expiration Date V isits Requested Visits Authorized [id number] Authorized 10/13/2025 04/14/2027 2 2 Encounter Details Date Type Department Care Team (Late st Contact Info) Description 10/13/2025 Orders Only [facility] Head[facility] Neck & Respiratory [address] , 2nd [place] [address] Jeanine Bhandari RN None None 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 No 10/10/[address] [facility] Utilities Answer Date Recorded In the [...] at all 10/13/2025 9:27 AM Sandra Cox documented as of this encounter Plan of Treatment Upcoming Encounters Date Type Department Care Team (Latest Contact Info) Description 10/26/2025 2:45 PM EST Office Visit [facility] Head, Neck & Respiratory [address] [facility], 2nd [place] [address] Kim Machado MD [address] [facility] [address] [place] [address] 10/27/2025 11:00 AM EST Clinical Support [facility] [address], 2nd [place] [address] 11/17/2025 7:50 AM EST Clinical Support [facility] 800 [place] [address] 11/17/2025 8:00 AM EST Office Visit [facility]cology [facility] [address] [place] [address] Aristides Reina MD 800 [place] [address] 11/17/2025 2:00 PM EST Office Visit [facility] Nephrology, Bone & Mineral Metabolism [address], [address] [place] [address] 11/21/2025 2:00 PM EST Appointment [facility] Radiology [address], 1st [place] [address] 12/01/2025 1:30 PM EST Office [facility] [address], 2nd [place] [address] Yanely Rock, [address] [place] [address] 12/14/2025 10:00 AM EST Office Visit [facility] [place] [address], [address] [place] [address] Juarez Recinos MD 800 [place] [address] 01/13/2026 12:00 PM EST Office Visit [facility] [address] [place] [address] Eros Mejia MD 800 [place] [address] Scheduled Orders Name Type Priority Associated Diagnoses Orde r Schedule PET/CT FDG Skull Base To Mid Thigh Imaging STAT 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 Author Patient will attend PCP appointment 10/12/2025 Care Plan Appointments On track( 4:26 PM EST) Rosalinda Horne, RN Patient will attend nephrology appointment 10/13/2025 Care Plan Appointments On track( 4:11 PM EST) Rosalinda Horne RN Consistently take Medications as Prescribed Care Plan Med Adherence On track(12/10/2 025 4:27 PM EST) No Rosalinda Cox, RN documented as of this encounter Visit [...] documented as of this encounter Care Teams Shift Engineer Relationship Specialty Start Date End Date Darius Ken MD [address] [place] [address] PCP - General Internal Medicine 08/23/24 Yanely Rock DO [address] [place] [address] Surgeon Urology 09/22/25 Rosalinda Cox, RN VALUE-BASED TRANSFORMATION PROGRAM [place] Ticker Maintainer 10/04/25 documented as of this encounter
--- OUTSIDE RECORDS SUMMARY | 2025-10-24 08:55 | XMS_ITS | Encounter Summary ---
Author Organization Healthcare Address [address] [id number] Care Team Providers Care Embedded Linux Engineer Name Role Phone Darius Ken MD Primary Care Provider [phone] Yanely Rock DO Unavailable Encounter Details Date Type Department Care Team (Latest Contact Info) Description 09/29/2025 Travel Social History Tobacco Use Types Packs/Day [...] time in the past 12 m [facility], were you homeless or living in a chcf (including now)? No 09/30/2025 [facility] Utilities Answer Date Recorded In [...] of Assessment Author No Risk Indicated 09/29/2025 6:06 PM Ty Wilburn RN * Question Answer Date of Assessment Author 1. Wish to be (Past 1 Month) No 6:06 PM EST Adali Azul RN 2. Non-Specific Active Suici pearl Thoughts (Past 1 Month) No 09/29/2025 6:06 PM EST Adali Azul RN 6. Suicidal Behavior (Lifetime) No 6:06 PM EST Adali Azul RN documented as of this encounter Plan of Treatment Upcoming Encounters Date Type Department Care Team (Latest Contact Info) Description 10/26/2025 2:45 PM EST Office Visit [facility] Head[facility] Neck & Respiratory [address] [facility] 2nd [place] [address] Kim Machado MD [address] [facility] [address] [place] [address] 10/27/2025 11:00 AM EST Clinical Support [facility] Urology [address], [address] [place] [address] 11/17/2025 7:50 AM EST Clinical Support [facility] Multidisciplinary Oncology Clinic [address] [place] [address] 11/17/2025 8:00 AM EST Office Visit [facility] Multidisciplinary Oncology Clinic [address] [place] [address] Aristides Reina MD 800 [place], [place] [phone] 11/17/2025 2:00 PM EST Office Visit [facility] [place] Nephrology, Bone & Mineral Metabolism [address], [address] [place] [address] 11/21/2025 2:00 PM EST Appointment [facility] S Radiology [address], 1st [place] [address] 12/01/2025 1:30 PM EST Office Visit [facility] Urology [address], 2nd [place] [address] Yanely Rock, [address] [place] [address] 12/14/2025 10:00 AM EST Office Visit [facility] [place] [address], [address] [place] [address] Juarez Recinos MD 800 [place] [address] 01/13/2026 12:00 PM EST Office Visit [facility] [address] [place] [address] Eros Mejia MD 800 [place] [address] documented as of this encounter [...] documented as of this encounter Care Teams Embedded Linux Engineer Relationship Specialty Start Date End Date Darius Ken MD [address] [place] [address] PCP - General Internal Medicine 08/23/24 Yanely Rock DO [address] [place] [address] Surgeon Urology 09/22/25 documented as of this encounter
--- OUTSIDE RECORDS SUMMARY | 2025-10-24 08:55 | XMS_ITS | Encounter Summary ---
Author Organization Healthcare Address [address] [place] [address] Care Team Providers Care Wire Coating Operator Metal Name Role Phone Darius Ken MD Primary Care Provider [phone] Yanely Rock DO Unavailable [phone] Rosalinda Cox RN Unavailable Unavailable Encounter Details Date Type Department Care Team (Late st Contact Info) Description 12/28/2024 Orders Only External Location [address] [place] [address] Provider, External Social History Tobacco Use Types [...] [facility] Head, Neck & Respiratory [address] [facility], 2nd [place] [address] Kim Machado MD [address] [place] [address] 10/27/2025 11:00 AM EST Clinical Support [facility] Urology [address], 2nd [place] [address] 11/17/2025 7:50 AM EST Clinical Support [facility] Multidisciplinary Oncology Clinic [address] [place] [address] 11/17/2025 8:00 AM EST Office Visit [facility] Multidisciplinary Oncology Clinic [address] [place] [address] Aristides Reina MD 800 [place] [address] 11/17/2025 2:00 PM EST Office Visit [facility] Nephrology, Bone & Mineral Metabolism [address], [address] [place] [address] 11/21/2025 2:00 PM EST Appointment [facility] S Radiology [address], 1st [place] [address] 12/01/2025 1:30 PM EST Office Visit [facility] Urology [address], 2nd [place] [address] Yanely Rock R, DO [address] [place] [address] 12/14/2025 10:00 AM EST Office Visit [facility] [place] [address], [address] [place] [address] Juarez Recinos MD [address] [place] [address] 01/13/2026 12:00 PM EST Office Visit [facility] [address] [place] [address] Eros Mejia MD [address] [place] [address] documented as of this encounter [...] 08/26/20252024 1:42 PM EDT Assessment Noted Time A fall risk assessment has been complete d for the patient 08/23/2024 3:02 PM EDT A Body Mass Index follow-up plan has been documented for the patient 08/25/2024 3:08 PM EDT documented as of this encounter Care Teams Wire Coating Operator Metal Relationship Specialty Start Date End Date Darius Ken MD [address] [place] [address] PCP - General Internal Medicine 08/23/24 Yanely Rock DO [address] [place] [address] Surgeon Urology 09/22/25 Rosalinda Cox, RN VALUE-BASED TRANSFORMATION PROGRAM [place] Crop Production Advisor 10/04/25 documented as of this encounter
--- OUTSIDE RECORDS SUMMARY | 2025-10-24 08:55 | XMS_ITS ---
Author Organization Healthcare Address [address] 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 Past Treatment and Therapy Plans Oncology Treatment Plan Name Start Date Discontinue Date Treatment Medications Discontinue Reason Plan Provider Cycles Nivolumab Every 2 Weeks x 3 / Ipilimumab Every 42 Days 09/13/20 25 10/07/2025 ipilimumab (Yervoy) 50 mL IVPBnivolumab (Opdivo) IVPB Toxicity/Comp lication Jatinder Sims MD 1 of 1 cycle started FLOT-D: Fluorouracil + Leucovorin + OXALIplatin + DOCEtaxel Every 14 Days X 2 + Durvalumab Every 28 Days 08/03/20 25 2025 5-FU (Adrucil) infusion - for home use ([place] supplied) CADD [id number] CHEMO INFUSION ([place] SUPPLIED) CADD ORDERABLEDOCEtaxel (Taxotere)DOCEtaxel (Taxotere) chemo IVPB 250 mLdurvalumab (Imfinzi)durvalumab (Imfinzi) IVPBOxaliplatin (Eloxatin)OXALIplati n (Eloxatin) IVPB Toxicity/Comp lication Que Gentile MD 1 of 2 cycles started Lifetime Dose Tracking * Chemical Lifetime Dose Automatic Entry Manual Entr y Fluoro Time 0.018 minutes 0.018 minutes 0 minutes Air Kerma 0.169 mGy 0.169 mGy 0 mGy Resolved Problems Problem Noted Date Diagnosed Date Resolved Date Gastric adenocarcinoma 07/21/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
--- OUTSIDE RECORDS SUMMARY | 2025-10-24 08:55 | XMS_ITS | Encounter Summary ---
Author Organization Healthcare Address [address] [place] [address] Care Team Providers Care Post Hole Digger Name Role Phone Darius Ken MD Primary Care Provider [phone] Yanely Rock DO Unavailable [phone] Rosalinda Cox RN Unavailable Unavailable Encounter Details Date Type Department Care Team (Late st Contact Info) Description 07/07/2025 Lab Requisition [facility] H Lab [address] [place] [address] Kim Machado MD [address] [facility] [address] [place] [address] Dysphagia, unspecified Social History Tobacco Use Types [...] [facility] Head, Neck & Respiratory [address] [facility], 2nd [place] [address] iKm Machado MD [address] [place] [address] 10/27/2025 11:00 AM EST Clinical Support [facility] Urology [address], 2nd [place] [address] 11/17/2025 7:50 AM EST Clinical Support [facility] Multidisciplinary Oncology Clinic [address] [place] [address] 11/17/2025 8:00 AM EST Office Visit [facility] Multidisciplinary Oncology [facility] [address] [place] [address] Aristides Reina MD 800 [place] [address] 11/17/2025 2:00 PM EST Office Visit [facility] Nephrology, Bone & Mineral Metabolism [address] [facility], [address] [place] [address] 11/21/2025 2:00 PM EST Appointment [facility] S Radiology [address], 1st [place] [address] 12/01/2025 1:30 PM EST Office Visit [facility] Urology [address], 2nd [place] [address] Yanely Rock R, [address] [place] [address] 12/14/2025 10:00 AM EST Office Visit [facility] [place] [address] [facility], [address] [place] [address] Juarez Recinos MD [address] [place] [address] 01/13/2026 12:00 PM EST Office Visit [facility] [address] [place] [place] [address] Eros Mejia MD [address] [place] [address] documented as of this encounter Procedures Procedure Name Priority Date/Time Associated Diagnosis Comments SURGICAL PATHOLOGY CONSULT Routine 07/07/2025 10:15 AM EDT Dysphagia, unspecified documented in this encounter Results * Surgical Pathology Consult (07/07/2025 10:15 AM EDT) Case Report Sugical Pathology Consult Case: [id number] Authorizing Provider: Kim Machado MD Collected: 07/07/2025 1015 Ordering Location: [facility] Lab Received: 07/07/2025 1016 Pathologist: Mi Hale MD Specimen: Stomach, [id number] 09/12/2025 8:02 AM [facility] Correction History To correct date of service of outside case 09/12/2025 8:02 AM [facility] Comment:These results have b een appended to a previously final verified report. Final Diagnosis GASTROESOPHAGEAL JUNCTION, BIOPSY ([id number]; 06/17/2025): - 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 STOMACH, BIOPSY ([id number]; 06/17/2025): - NO PATHOLOGIC ABNORMALITIES. - NO H. PYLORI ORGANISMS IDENTIFIED ON H&E SLIDE. STOMACH, POLYP, BIOPSY ([id number]; 06/17/2025): - FUNDIC GLAND POLYP. 09/12/2025 8:02 AM EST [facility] Amendment electronically signed by Mi Hale MD on 09/12/2025 at 0802 EST at 1331 EDT Comment:Corrected result: Pr eviously reported as [Previous value contains rich text formatting which cannot be displayed here] (see Result History) on 07/07/2025 at 1331 EDT. Comment Per pathology report ) - Immunohistochemical stain for Her-2/miladys: negative (score of 0) - PD-L1 (22C3) Combined Positive Score: <1 - CLDN A18 (43-14A) IHC interpretation: positive (percentage of viable tumor cells with moderate to strong membranous positivity: 50%) -Immunohistochemical stains for MMR proteins: loss of nuclear immunoreaction for MLH-1 and PMS-2 (pending MLH1 promoter methylation study) This amendment was issued to correct date of service of outside case; otherwise no change is made to the diagnosis. 09/12/2025 8:02 AM EST [facility] Comment:Corrected result: Pr eviously reported as [Previous value contains rich text formatting which cannot be displayed here] (see Result History) on 07/07/2025 at 1331 EDT. Clinical Information R13.10 - Dysphagia, unspecified [ICD-10-CM] 09/12/2025 8:02 AM [facility] Gross Description A. [id number] Received along with a corresponding pathology report from [facility] are 11 slide(s) labeled outside case: [id number] collected on 06/17/2025. 09/12/2025 8:02 AM EST [facility] Note: A resident was involved in the service. I attest I examined the relevant preparations for the specimens and confirmed the diagnosis or interpretation. 09/12/2025 8:02 AM [facility] Tissue Stomach structure / Unknown 07/07/2025 10:15 AM EDT 07/07/2025 10:16 AM EDT us Kim Machado MD LAB PATHOLOGY ORDERABLES Edited Result - Final [facility] [address] [place] [address] documented in this encounter Visit Diagnoses Diagnosis Dysphagia, unspecified documented in this encounter Additional Health Concerns Infection Onset Date Last Indicated Resolved Time C. difficile Rule-Out 08/13/2025 08/14/20252024 12:34 PM EDT Gastrointestinal Rule-Out 08/13/2025 08/14/2025 1:05 PM EDT C. difficile 08/14/2025 08/26/2025 Gastrointestinal Rule-Out 08/26/2025 08/26/2025 10 / 10:36 PM EDT C. difficile Rule-Out 08/27/2025 08/26/20252024 1:42 PM EDT Assessment Noted Time A fall risk assessment has been complete d for the patient 07/06/2025 2:29 PM EDT A Body Mass Index follow-up plan has been documented for the patient 07/07/2025 10:51 PM EDT documented as of this encounter Care Teams Post Hole Digger Relationship Specialty Start Date End Date Darius Ken MD [address] [place] [address] PCP - General Internal Medicine 08/23/24 Yanely Rock DO [address] [place] [address] Surgeon Urology 09/22/25 Rosalinda Cox, RN VALUE-BASED TRANSFORMATION PROGRAM [place] Vp Software 10/04/25 documented as of this encounter
--- OUTSIDE RECORDS SUMMARY | 2025-10-24 08:55 | XMS_ITS | Encounter Summary ---
Author Organization Healthcare Address [address] [place] [address] Care Team Providers Care Traffic Investigator Name Role Phone Darius Ken MD Primary Care Provider [phone] Yanely Rock DO Unavailable [phone] Rosalinda Cox RN Unavailable Unavailable Encounter Details Date Type Department Care Team (Latest Contact Info) Description 10/04/2025 Travel Social History Tobacco Use Types Packs/Day [...] money to buy more. Never true 09/30/20 Within the past 12 months, t he [...] living in a fci (including now)? No 09/30/2025 [facility] Utilities Answer Date Recorded In [...] 10/04/2025 8:00 PM Odilia Garcia RN * Calculated C-SSRS Risk Score (Lifetime/Recent) [...] Author Precautions Fall risk 10/04/2025 8:00 PM EST Odilia Su RN documented in this encounter Plan of Treatment Upcoming Encounters Date Type Department Care Team (Latest Contact Info) Description 10/26/2025 2:45 PM EST Office Visit [facility] Head[facility] Neck & Respiratory [address] [facility], [address]nd [place] [address] Kim Machado MD [address] [place] [address] 10/27/2025 11:00 AM EST Clinical Support [facility] Urology [address] [address] 11/17/2025 7:50 AM EST Clinical Support [facility] Multidisciplinary Oncology Clinic [address] [place] [address] 11/17/2025 8:00 AM EST Office Visit [facility] [address] [place] [address] Aristides Reina MD 800 [place] [address] 11/17/2025 2:00 PM EST Office Visit [facility] Nephrology, Bone & Mineral Metabolism [address] [facility], [address] [place] [address] 11/21/2025 2:00 PM EST Appointment [facility] Radiology [address], [address] [place] [address] 12/01/2025 1:30 PM EST Office Visit [facility] [address], [address]nd [place] [address] Yanely Rock DO [address] [place] [address] 12/14/2025 10:00 AM EST Office Visit [facility] [place] [address] [facility], [address] [place] [address] Juarez Recinos MD 800 [place] [address] 01/13/2026 12:00 PM EST Office Visit [facility] [address] [place] [address] Eros Mejia MD [address] [place] [address] documented as of this encounter [...] documented as of this encounter Care Teams Traffic Investigator Relationship Specialty Start Date End Date Darius Ken MD [address] [place] [address] PCP - General Internal Medicine 08/23/24 Yanely Rock DO [address] [place] [address] Surgeon Urology 09/22/25 Rosalinda Cox, RN VALUE-BASED TRANSFORMATION PROGRAM [place] Front Facer 10/04/25 documented as of this encounter
--- OUTSIDE RECORDS SUMMARY | 2025-10-24 08:55 | XMS_ITS | Encounter Summary ---
Author Organization Healthcare Address [address] [place] [address] Care Team Providers Care Dial Brusher Name Role Phone Darius Ken MD Primary Care Provider [phone] Yanely Rock DO Unavailable [phone] Rosalinda Cox RN Unavailable Unavailable Reason for Referral * Consultation (Routine) - Authorized Specialty Diagnoses / Procedures Referred By Contac t Referred To Contact Diagnoses Encounter for support and coordination of transition of care POPULATION [facility] [address] [facility] [place], [address] [address] Phone: tel: [address] [place], [address] [address] Phone: tel: Referral ID Status Reason Start Date Expiration Date Visits Requested Visits Authorized [id number] Authorized Other Co-Managemen t of Problem 04/05/2027 1 1 Encounter Details Date Type Department Care Team (Late st Contact Info) Description 10/04/2025 Patient Outreach POPULATION [address] [place] [address] Sofía Góemz Social History Tobacco Use Types Packs/Day Years [...] any time in the past 12 m [facility], were you homeless or living in a half-way (including now)? No 09/30/2025 [facility] Utilities Answer Date [...] Answer Date of Assessment Author Precautions Fall risk;[facility] surveillance 10/04/2025 4:00 PM Loni Sanchez RN * Calculated C-SSRS Risk Score (Lifetime/Recent) [...] Question Answer Entry Date Author Precautions Fall risk;[facility] surveillance 10/04/2025 4:00 PM Loni Sanchez RN documented in this encounter Miscellaneous Notes * Progress Notes - Sofía Gómez - 10/04/2025 4:16 PM EST Pop Health Enrollment 10/04/2025 Pop Health Program: [] LINK [x] HRCM Primary Facility: [x] Ad [] Ranjan Boswell [] Spoke with CM [x] Spoke with patient/caregiver [] PCP [x] Outside PCP - [facility] [x] Confirmed/Updated Patient's Contact Information, Voicemail, Preferred Method SDOH Needs/Assessment [] Transportation [] Food [] Housing [] Utility [x] Medication [x] Health Education [] Insurance [] Legal [] Unable to assess Discussion Summary: Population Health SW met with pt bedside for introductions and review of PopHealth program; pt's sister was present bedside. Pt verified contact info and PCP; verbalized understanding of benefits of EMERSON appt. PopHealth SW provided contact card for f/u questions. Discharge Disposition [] Sub-Acute Rehab [x] Home [] Other: Sofía Gómez, GLOST PLACER, ASSOCIATE PROFESSOR OF MUSIC Population Health Navigator [email or web address] documented in this encounter Plan of Treatment Upcoming Encounters Date Type Department Care Team (Latest Contact Info) Description 10/26/2025 2:45 PM EST Office Visit Pav [facility] Head, Neck & Respiratory [address] [facility], 2nd [place] [address] Kim Machado MD [address] [place] [address] 10/27/2025 11:00 AM EST Clinical Support [facility] Urology [address], 2nd [place] [address] 11/17/2025 7:50 AM EST Clinical Support [facility] 800 [place] [address] 11/17/2025 8:00 AM EST Office Visit [facility] [address] [place] [address] Aristides Reina MD 800 [place] [address] 11/17/2025 2:00 PM EST Office Visit [facility] Nephrology, Bone & Mineral Metabolism [address] [facility], [address] [place] [address] 11/21/2025 2:00 PM EST Appointment [facility] S Radiology [address], [address]st [place] [address] 12/01/2025 1:30 PM EST Office Visit [facility] U[facility] [address], 2nd [facility] [place] [address] Yanely Rock DO [address] [place] [address] 12/14/2025 10:00 AM EST Office Visit [facility] [place] [address] [facility], [address] [place] [address] Juarez Recinos MD 800 [place] [address] 01/13/2026 12:00 PM EST Office Visit [facility] [address] [place] [address] Eros Mejia MD 800 [place] [address] Scheduled Referrals Name Type Priority Associated Diagnoses Orde r Schedule Ambulatory referral to [facility] Outpatient Referral Routine Encounter for support and coordination of transition of care 1 Occurrences starting 10/04/2025 until 04/07/2027 documented as of this encounter Visit Diagnoses Diagnosis Encounter for support and coordination of transition of care- Primary documented in this encounter Additional Health [...] documented as of this encounter Care Teams Dial Brusher Relationship Specialty Start Date End Date Darius Ken MD [address] [place] [address] PCP - General Internal Medicine 08/23/24 Yanely Rock DO [address] [place] [address] Surgeon Urology 09/22/25 Rosalinda Cox, RN VALUE-BASED TRANSFORMATION PROGRAM [place] Farm Management Agent 10/04/25 documented as of this encounter
--- OUTSIDE RECORDS SUMMARY | 2025-10-24 08:55 | XMS_ITS | Encounter Summary ---
Author Organization Healthcare Address [address] [place] [address] Care Team Providers Care Bark Spudder Name Role Phone Darius Ken MD Primary Care Provider [phone] Yanely Rock DO Unavailable [phone] Rosalinda Cox RN Unavailable Unavailable Encounter Details Date Type Department Care Team (Late st Contact Info) Description 10/13/2025 Orders Only [facility] Radiology Virtual Dept. 800 [place] [address] Paz Corcoran, DO 800 [place] [address] Social History Tobacco Use Types Packs/Day Years [...] any time in the past 12 m [facility], were you homeless or living in a custodial (including now)? No 10/10/2025 [facility] Utilities Answer Date [...] Respiratory [address] [facility], 2nd [place] [address] Kim Machado MD [address] [place] [address] 10/27/2025 11:00 AM EST Clinical Support [facility] Urology [address], [address] [place] [address] 11/17/2025 7:50 AM EST Clinical Support [facility] [address] [place] [address] 11/17/2025 8:00 AM EST Office Visit [facility] [address] [place] [address] Aristides Reina MD 800 [place] [address] 11/17/2025 2:00 PM EST Office Visit [facility] Nephrology, Bone & Mineral Metabolism [address] [facility], [address] [place] [address] 11/21/2025 2:00 PM EST Appointment [facility] S Radiology [address], [address]st [place] [address] 12/01/2025 1:30 PM EST Office Visit [facility] Urology [address], 2nd [place] [address] Yanely Rock, [address] [place] [address] 12/14/2025 10:00 AM EST Office Visit [facility] [place] [address] [facility], [address] [place] [address] Juarez Recinos MD [address] [place] [address] 01/13/2026 12:00 PM EST Office Visit [facility] [address] [place] [address] Eros Mejia MD 800 [place] [address] documented as of this encounter [...] documented as of this encounter Care Teams Bark Spudder Relationship Specialty Start Date End Date Darius Ken MD [address] [place] [address] PCP - General Internal Medicine 08/23/24 Yanely Rock DO [address] [place] [address] Surgeon Urology 09/22/25 Rosalinda Cox, RN VALUE-BASED TRANSFORMATION PROGRAM [place], [place] Superintendent General 10/04/25 documented as of this encounter
--- OUTSIDE RECORDS SUMMARY | 2025-10-24 08:55 | XMS_ITS | Encounter Summary ---
Author Organization Healthcare Address [address] [place] [id number] Care Team Providers Care Pharmacy Consultant Name Role Phone Darius Ken MD Primary Care Provider [phone] Encounter Details Date Type Department Care Team [...] time in the past 12 m [facility], were you homeless or living in a prison (including now)? No 08/15/2025 [facility] Utilities Answer Date Recorded In the [...] CC Head, Neck & Respiratory [address] [facility], 2nd [place] [address] Kim Machado MD [address] [place] [address] 10/27/2025 11:00 AM EST Clinical Support [facility] [address], 2nd [place] [address] 11/17/2025 7:50 AM EST Clinical Support [facility] Multidisciplinary Oncology Clinic 800 [place] [address] 11/17/2025 8:00 AM EST Office Visit [facility] [address] [place] [address] Aristides Reina MD 800 [place] [address] 11/17/2025 2:00 PM EST Office Visit [facility] Nephrology, Bone & Mineral Metabolism [address] [facility], [address] [place] [address] 11/21/2025 2:00 PM EST Appointment [facility] S Radiology [address], 1st [place] [address] 12/01/2025 1:30 PM EST Office Visit [facility] [address], 2nd [place] [address] Yanely Rock, [address] [place] [address] 12/14/2025 10:00 AM EST Office Visit [facility] [place] [address] [facility], [address] [place] [address] Juarez Recinos MD 800 [place] [address] 01/13/2026 12:00 PM EST Office Visit [facility] [address] [facility] [address] [place] [address] Eros Mejia MD 800 [place] [address] documented as of this encounter [...] documented as of this encounter Care Teams Pharmacy Consultant Relationship Specialty Start Date End Date Darius Ken MD [address] [place] [address] PCP - General Internal Medicine 08/23/24 documented as of this encounter
--- OUTSIDE RECORDS SUMMARY | 2025-10-24 08:55 | XMS_ITS | Encounter Summary ---
Author Organization Healthcare Address [address] [place] [address] Care Team Providers Care Transit Planning Manager Name Role Phone Darius Ken MD Primary Care Provider [phone] Yanely Rock DO Unavailable [phone] Rosalinda Cox RN Unavailable Unavailable Encounter Details Date Type Department Care Team (Late st Contact Info) Description 10/13/2025 Orders Only Pav CC Head, Neck & Respiratory [address] [facility], 2nd [place] [address] Jeannie Bhandari, RN None None Malignant neoplasm of overlapping [...] any time in the past 12 m [facility], were you homeless or living in a fpc (including now)? No 10/10/2025 [facility] Utilities Answer Date Recorded In [...] Sandra Mosley documented as of this encounter Plan of Treatment Upcoming Encounters Date Type Department Care Team (Latest Contact Info) Description 10/26/2025 2:45 PM EST Office Visit Pav CC Head, Neck & Respiratory [address] [facility], 2nd [place] [address] Kim Machado MD [address] [place] [address] 10/27/2025 11:00 AM EST Clinical Support [facility] Urology [address] [address] 11/17/2025 7:50 AM EST Clinical Support [facility] Multidisciplinary Oncology Clinic 800 [place] [address] 11/17/2025 8:00 AM EST Office Visit [facility] Multidisciplinary Oncology Clinic 800 [place] [address] Aristides Reina MD 800 [place] [address] 11/17/2025 2:00 PM EST Office Visit [facility] Nephrology, Bone & Mineral Metabolism [address] [facility], [address] [place] [address] 11/21/2025 2:00 PM EST Appointment [facility] S Radiology [address], 1st [place] [address] 12/01/2025 1:30 PM EST Office Visit [facility] [address], 2nd [place] [address] Yanely Rock DO [address] [place] [address] 12/14/2025 10:00 AM EST Office Visit [facility] [place] [address] [facility], [address] [place] [address] Juarez Recinos MD 800 [place] [address] 01/13/2026 12:00 PM EST Office Visit [facility] [address] [place] [address] Eros Mejia MD 800 [place] [address] documented as of this [...] documented as of this encounter Care Teams Transit Planning Manager Relationship Specialty Start Date End Date Darius Ken MD [address] [place] [address] PCP - General Internal Medicine 08/23/24 Yanely Rock DO [address] [place] [address] Surgeon Urology 09/22/25 Rosalinda Cox, RN VALUE-BASED TRANSFORMATION PROGRAM [place] Senior Ui Ux Designer 10/04/25 documented as of this encounter
--- OUTSIDE RECORDS SUMMARY | 2025-10-24 08:55 | XMS_ITS | Encounter Summary ---
Author Organization Healthcare Address [address] [place] [address] Care Team Providers Care Field Captain Name Role Phone Darius Ken MD Primary Care Provider [phone] Yanely Rock DO Unavailable [phone] Rosalinda Cox RN Unavailable Unavailable Reason for Visit * Reason Comments CM Encounter Details Date Type Department Care Team (Late Contact Info) Description 10/04/2025 Patient Outreach POPULATION HEALTH [address] [facility], [address] [place] [address] Rosalinda Cox, RN VALUE-BASED TRANSFORMATION PROGRAM [facility] Social History Tobacco Use Types [...] any time in the past 12 m [facility], were you homeless or living in a correction (including now)? No 09/30/2025 [facility] Utilities Answer Date Recorded In [...] Answer Date of Assessment Author Precautions Fall risk;Environmen francisco surveillance 10/04/2025 4:00 PM Loni Sanchez RN * Calculated C-SSRS Risk Score (Lifetime/Recent) Answer Date of Assessment Author No Risk Indicated 10/04/2025 4:00 PM Lnoi Sanchez RN * Question Answer Date of Assessment Author 1. Wish to be (Past 1 Month) No 025 4:00 PM Loni Sanchez RN 2. Non-Specific Active Suici pearl Thoughts (Past 1 Month) No 10/04/2025 4:00 PM EST Loni Barth RN 6. Suicidal Behavior (Lifetime) No 4:00 PM EST Loni Barth RN documented as of this encounter Mental Status * Question Answer Entry Date Author Precautions Fall risk;Environmen francisco surveillance 10/04/2025 4:00 PM EST Loni Barth RN documented in this encounter Miscellaneous Notes * Progress Notes - Rosalinda Cox RN - 10/04/2025 4:31 PM EST HRCM referral Identified Phone outreach to patient following hospital discharge documented in this encounter Plan of Treatment Upcoming Encounters Date Type Department Care Team (Latest Contact Info) Description 10/26/2025 2:45 PM EST Office Visit Pav CC Head, Neck & Respiratory [address] [facility], 2nd [place] [address] Kim Machado MD [address] [facility] [address] [place] [address] 10/27/2025 11:00 AM EST Clinical Support [facility] [address], 2nd [place] [address] 11/17/2025 7:50 AM EST Clinical Support [facility] [address] [place] [address] 11/17/2025 8:00 AM EST Office Visit [facility] [address] [place] [phone] Aristides Reina MD 800 [place] [address] 11/17/2025 2:00 PM EST Office Visit [facility] Nephrology, Bone & Mineral Metabolism [address] [facility], [address] [place] [address] 11/21/2025 2:00 PM EST Appointment [facility] S Radiology [address], 1st [place] [address] 12/01/2025 1:30 PM EST Office Visit [facility] [address], 2nd [place] [address] Yanely Rock DO [address] [place] [address] 12/14/2025 10:00 AM EST Office Visit [facility] [place] [address] [facility], [address] [place] [address] Juarez Recinos MD 800 [place] [address] 01/13/2026 12:00 PM EST Office Visit [facility] [place] [address] [place] [address] [place] [address] Eros Mejia MD 800 [place] [address] documented as of this encounter [...] documented as of this encounter Care Teams Field Captain Relationship Specialty Start Date End Date Darius Ken MD [address] [place] [address] PCP - General Internal Medicine 08/23/24 Yanely Rock DO [address] [place] [address] Surgeon Urology 09/22/25 Rosalinda Cox, RN VALUE-BASED TRANSFORMATION PROGRAM [place] Repairer Helper 10/04/25 documented as of this encounter
--- OUTSIDE RECORDS SUMMARY | 2025-10-24 08:55 | XMS_ITS | Encounter Summary ---
Author Organization Healthcare Address [address] [place] [address] Care Team Providers Care Director External Communications Name Role Phone Darius Ken MD Primary Care Provider [phone] Yanely Rock DO Unavailable [phone] Rosalinda Cox RN Unavailable Unavailable Encounter Details Date Type Department Care Team (Latest Contact Info) Description 10/19/2025 Travel Social History Tobacco Use Types Packs/Day [...] in a custodial (including now)? No 10/10/2025 [facility] Utilities Answer Date Recorded In [...] & Respiratory [address] , 2nd [place] [address] Kim Machado MD [address] [place] [address] 10/27/2025 11:00 AM EST Clinical Support [facility] [address], 2nd [place] [address] 11/17/2025 7:50 AM EST Clinical Support [facility] [address] [facility] [address] 11/17/2025 8:00 AM EST Office Visit [facility] Multidisciplinary Oncology Clinic 800 [place] [address] Aristides Reina MD 800 [place] [address] 11/17/2025 2:00 PM EST Office Visit [facility] Nephrology, Bone & Mineral Metabolism [address] [facility], [address] [place] [address] 11/21/2025 2:00 PM EST Appointment [facility] Radiology [address], 1st [place] [address] 12/01/2025 1:30 PM EST Office Visit [facility] Urology [address], 2nd [place] [address] Yanely Rock R, [address] [place] [address] 12/14/2025 10:00 AM EST Office Visit [facility] [place] [address] [facility], [address] [place] [address] Juarez Recinos MD [address] [place] [address] 01/13/2026 12:00 PM EST Office Visit [facility] [address] [place] [address] Eros Mejia MD 800 [place] [address] documented as of this encounter [...] as of this encounter Care Teams Director External Communications Relationship Specialty Start Date End Date Darius Ken MD [address] [place] [address] PCP - General Internal Medicine 08/23/24 Yanely Rock DO [address] [place] [address] Surgeon Urology 09/22/25 Rosalinda Cox RN VALUE-BASED TRANSFORMATION PROGRAM [place] Rate Marker 10/04/25 documented as of this encounter
--- OUTSIDE RECORDS SUMMARY | 2025-10-24 08:56 | XMS_ITS | Clinical Summary ---
Author Organization [facility] Address [address] [place] [address] Care Team Providers Care Sales Representative Meats Name Role Phone Darius Ken MD Primary Care Provider [phone] Medications Sod Picosulfate-Mag Ox-Cit Acd 10-3.5-12 MG-GM -GM/160ML solution Take 1 kit by mouth Take As Directed. Follow instructions mailed to your home. If you didn't receive instructions; call [phone]. 2 bottle 9 Active Social History Tobacco Use [...] 1973 COLOGUARD 1999 COLON CANCER SCREENING 5 YEA R SIGMOIDOSCOPY 1999 CT COLONOGRAPHY 1999 FECAL OCCULT BLOOD TEST 1999 FIT Testing (1 year) 1999 Pneumococcal Vaccine 50+ (1 of 1 - PCV) 2004 ZOSTER VACCINE (1 of 2) 2004 ANNUAL PHYSICAL 07/30/2019 INFLUENZA VACCINE 06/10/2025 COVID-19 Vaccine ( - 2023- season) 2025 COLONOSCOPY 08/23/2029 08/23/2019 COLORECTAL CANCER SCREENING 08/23/2029 HEPATITIS C SCREENING Completed 08/13/2025 AAA SCREEN ONCE Completed 09/29/2025, 08/11, 09/21/2024 Procedures Procedure Name Priority Date/Time Associated Diagnosis Comments SCANNED - COLONOSCOPY 08/23/2019 from Last 3 Months or Most Recently Relevant to Health Maintenance Results * SCANNED - COLONOSCOPY (08/23/2019) Darius Ken MD CHART REVIEW TABS Final R esult from Last 3 Months or Most Recently Relevant [place] [address] Care Teams Sales Representative Meats Relationship Specialty Start Date End Date Darius Ken MD [address] [place] [id number] PCP - General Adolescent Medicine 07/28/19
--- OUTSIDE RECORDS SUMMARY | 2025-10-24 08:56 | XMS_ITS | Encounter Summary ---
Author Organization Healthcare Address [address] [place] [id number] Care Team Providers Care Crew Truck Driver Name Role Phone Darius Ken MD Primary Care Provider [phone] Encounter Details Date Type Department Care Team (Latest Contact Info) Description 08/26/2025 Orders Only [facility] [address] [place] [address] Aristides Reina MD [address] [place] [address] Thyroid mass of unclear etiology (Primary Dx) Social History Tobacco Use Types [...] any time in the past 12 m [facility], were you homeless or living in a half-way (including now)? No 08/15/2025 [facility] Utilities Answer Date Recorded [...] & Respiratory [address], 2nd [place] [address] Kim Machado MD [address] [facility] [address] [place] [address] 10/27/2025 11:00 AM EST Clinical Support [facility] [address], 2nd [place] [address] 11/17/2025 7:50 AM EST Clinical Support [facility] Multidisciplinary Oncology Clinic [address] [place] [address] 11/17/2025 8:00 AM EST Office Visit [facility] Multidisciplinary Oncology Clinic [address] [place] [address] Aristides Reina MD 800 [place] [address] 11/17/2025 2:00 PM EST Office Visit [facility] Nephrology, Bone & Mineral Metabolism [address] [facility], [address] [place] [address] 11/21/2025 2:00 PM EST Appointment [facility] S Radiology [address], 1st [place] [address] 12/01/2025 1:30 PM EST Office Visit [facility] [address], 2nd [place] [address] Yanely Rock R, DO [address] [place] [address] 12/14/2025 10:00 AM EST Office Visit [facility] [place] [address] [facility], [address] [place] [address] Juarez Recinos MD 800 [place] [address] 01/13/2026 12:00 PM EST Office Visit [facility] [address] [place] [address] Eros Mejia MD [address] [place] [address] documented as of this encounter Results * US Guided Fine Needle Aspiration (09/22/2025 [...] J Am Leti Radiol 2017;14:587-595 AVAILABLE AT: [email or web address] Drafted by Katie Mitchell DO on 09/22/2025 [...] Ref. J Am Leti Radiol 2017;14:587-595 AVAILABLE AT:[email or web address] Drafted by Katie Mitchell DO on 09/22/2025 10:10 AM Final report signed by Katie Mitchell DO on 09/22/2025 10:17 AM us Salome Arrieta MD IMG US PROCEDURES Final Result documented in this encounter Visit Diagnoses Diagnosis Thyroid mass of unclear etiology- Primary Thyroid mass- Primary Unspecified disorder of thyroid Thyroid mass of unclear etiology documented in this encounter Additional Health Concerns [...] documented as of this encounter Care Teams Crew Truck Driver Relationship Specialty Start Date End Date Darius Ken MD [address] [place] [address] PCP - General Internal Medicine 08/23/24 documented as of this encounter
--- OUTSIDE RECORDS SUMMARY | 2025-10-24 08:56 | XMS_ITS ---
Author Organization [facility] Address [address] [place] [address] Care Team Providers Care Snap Shearer Name Role Phone Darius Ken MD Primary Care Provider [phone] Yanely Rock DO Unavailable [phone] Rosalinda Cox RN Unavailable Unavailable High Risk Care Management Status:Active (Active) Program category:Care Coordination Start date:10/04/2025 Enrollment date:10/10/2025 Enrollment reason:Identified using referral data Case Team Name Relationship Phone Rosalinda Cox RN(Responsible Staff) Care Manag er Continued Care and Services Coordination
== END 2025-10-24 23:59 | disposition home or self-care (01) ==
LOC: RT 08:35
PROVIDERS: PCP Internal Medicine Adolescent Medicine; Visit Provider Internal Medicine Adolescent Medicine
DX: I95.1 Orthostatic hypotension (principal); I48.0 Paroxysmal atrial fibrillation
CPT/HCPCS: 93306

== ENCOUNTER 2025-11-07 15:00 | Outpatient (RCR) | payer MEDICARE, SELFPAY | END 2025-11-07 23:59 | disposition home or self-care (01) | LOC: PT 15:00 | PROVIDERS: PCP Internal Medicine Adolescent Medicine; Visit Provider Internal Medicine | DX: C16.0 Malignant neoplasm of cardia (principal) | CPT/HCPCS: 97110; 97162; 97530 ==